=== PATIENT | female | born 1935 | race Caucasian/White ===

== ENCOUNTER 2017-09-19 08:07 | Emergency (ER) | payer MEDICARE, MEDICAID ==
[~2017-09-19] VITALS: Ht 170.2 cm; Wt 73.4 kg
[~2017-09-19 08:07] MED LIST: COZAAR50 MG PO; DOCUSATE SODIU100 MG PO; GABAPENTIN300 MG PO; LEVOTHYROXINE100 MCG PO; LEVOTHYROXINE25 MCG PO; NEURONTIN300 MG PO; NORCO 5-325 TA1 EACH PO; OMEPRAZOLE20 MG PO; ONDANSETRON ODT4 MG SL; PROVENTIL HFA6.7 GM INH; TENORMIN25 MG PO
--- OUTSIDE RECORDS SUMMARY | 2017-09-19 09:47 | XMS | Clinical Summary ---
Demographics + + + | Address | [address] | | | [place] [address] | + + + | Home Phone | | + + + | Preferred Language | Unknown | + + + | Marital Status | | + + + | Holiness Affiliation | 1077 | + + + | Race | Unknown | + + + | Ethnic Group | Unknown | + + + Author + + + | Author | [facility] | | | and Khurramana | + + + | Organization | [facility] | | | and Khurramana | + + + | Address | Unknown | + + + | Phone | Unavailable | + + + Support + + + + + | Name | Relationship | Address | Phone | + + + + + | Alejo Grant ECON | [address] | | | | | [place] | | | | | [address] | | + + + + + Care Team Providers + +------+ + | Care Stock Preparation Supervisor Name | Role | Phone | + +------+ + | Susan Zamora | PP | | | Paty BOLAND | | | + +------+ + Allergies + + + + + + | Active Allergy | Reactions | Severity | Noted | Comments | | | | | Date | | + + + + + + | Erythromycin | Hives, Rash | Medium | 02/01/20 | | | | | | 16 | | + + + + + + | Levofloxacin | Hives, Rash | Medium | 08/19/20 | | | | | | 16 | | + + + + + + | Penicillins | Hives, Rash | Medium | 08/19/20 | | | | | | 16 | | + + + + + + | Sulfa Antibiotics | Hives, Rash | Medium | 08//20 | | | | | | 16 | | + + + + + + | Verapamil Hcl Er | Hives, Rash | Medium | 08/20 | | | | | | 16 | | + + + + + + Current Medications + + +-------+---------+------+------+-------+ | Prescription | Sig. | Disp. | Refills | Star | End | Statu | | | | | | t | Date | s | | | | | | Date | | | + + +-------+---------+------+------+-------+ | | Take 1 tablet by | | | | | Activ | | HYDROcodone-acetamin | mouth every 6 hours | | | | | e | | ophen (NORCO) 5-325 | as needed for Pain. | | | | | | | mg per tablet | | | | | | | + + +-------+---------+------+------+-------+ | levothyroxine | Take 100 mcg by | | | | | Activ | | (SYNTHROID, | mouth every morning | | | | | e | | LEVOTHROID) 100 mcg | (before breakfast). | | | | | | | tablet | | | | | | | + + +-------+---------+------+------+-------+ | losartan (COZAAR) | Take 50 mg by mouth | | | | | Activ | | 50 mg tablet | Daily. | | | | | e | + + +-------+---------+------+------+-------+ | atenolol | Take 25 mg by mouth | | | | | Activ | | (TENORMIN) 25 mg | Daily. | | | | | e | | tablet | | | | | | | + + +-------+---------+------+------+-------+ | omeprazole | Take 20 mg by mouth | | | | | Activ | | (PRILOSEC) 20 mg | every morning | | | | | e | | capsule | (before breakfast). | | | | | | + + +-------+---------+------+------+-------+ | gabapentin | Take 300 mg by mouth | | | | | Activ | | (NEURONTIN) 300 mg | 3 times daily. | | | | | e | | capsule | | | | | | | + + +-------+---------+------+------+-------+ | docusate sodium | Take 100 mg by mouth | | | | | Activ | | (COLACE) 100 mg | Twice daily as | | | | | e | | capsule | needed. | | | | | | + + +-------+---------+------+------+-------+ | Multiple | Take by mouth. | | | | | Activ | | Vitamins-Minerals | | | | | | e | | (PEACEHEALTH) | | | | | | | | MISC | | | | | | | + + +-------+---------+------+------+-------+ | [place]-3 Fatty | Take 1 tablet by | | | | | Activ | | Acids (PRO NUTRIENTS | mouth Daily. | | | | | e | | OMEGA 3 PO) | | | | | | | + + +-------+---------+------+------+-------+ | Calcium | Take 1 tablet by | | | | | Activ | | Carb-Cholecalciferol | mouth 2 times daily. | | | | | e | | (CALCIUM 500 + D3 | | | | | | | | PO) | | | | | | | + + +-------+---------+------+------+-------+ | Multiple Vitamin | Take 1 tablet by | | | | | Activ | | (THERAGRAN PO) | mouth Daily. | | | | | e | + + +-------+---------+------+------+-------+ | Garlic 1000 MG | Take 1 tablet by | | | | | Activ | | CAPS | mouth Daily. | | | | | e | + + +-------+---------+------+------+-------+ | Psyllium | Take by mouth | | | | | Activ | | (METAMUCIL PO) | Daily. | | | | | e | + + +-------+---------+------+------+-------+ | PROVENTIL HFA 108 | Inhale 1 puff into | | | 01/1 | | Activ | | (90 Base) MCG/ACT | the lungs every 4 | | | 2/20 | | e | | inhaler | hours as needed. | | | 17 | | | + + +-------+---------+------+------+-------+ | ondansetron | Take 4 mg by mouth | | | 07/16 | | Activ | | (ZOFRAN ODT) 4 mg | every 8 hours as | | | 07/04 | | e | | disintegrating | needed. | | | 17 | | | | tablet | | | | | | | + + +-------+---------+------+------+-------+ Active Problems + + + | Problem | Noted Date | + + + | Choledocholithiasis | 09/25/2016 | + + + | Aortic stenosis | 09/25/2016 | + + + | HTN (hypertension) | 09/25/2016 | + + + | GERD (gastroesophageal reflux disease) | 09/25/2016 | + + + | Hyperlipidemia | 09/25/2016 | + + + | Type 2 diabetes mellitus (HCC) | 09/25/2016 | + + + | Hypothyroidism | 09/25/2016 | + + + | Peripheral neuropathy | 09/25/2016 | + + + | Abnormal gait | 03/03/2016 | + + + | Hyper reflexia | 02/26/2016 | + + + | Peripheral polyneuropathy | 02/25/2016 | + + + | DDD (degenerative disc disease), lumbar | 02/04/2016 | + + + | Spondylolisthesis at L4-L5 level | 02/04/2016 | + + + | Bilateral lumbar radiculopathy | 02/04/2016 | + + + Family History + + +------+ + | Medical History | Relation | Name | Comments | + + +------+ + | Heart disease | Brother | | | + + +------+ + | Early | Brother | | MVA | + + +------+ + | Cancer | Brother | | SKIN | + + +------+ + | Heart disease | Brother | | | + + +------+ + | Diabetes | Brother | | | + + +------+ + | Muscle disease | Daughter | | guillain barre syndrome | + + +------+ + | Early | Father | | TB | + + +------+ + | Tuberculosis | Father | | | + + +------+ + | No Known Problems | Maternal | | | | | Grandfath | | | | | er | | | + + +------+ + | Stroke | Maternal | | | | | Grandmoth | | | | | er | | | + + +------+ + | Stroke | Maternal | | | | | Uncle | | | + + +------+ + | Stroke | Maternal | | | | | Uncle | | | + + +------+ + | Heart disease | Maternal | | | | | Uncle | | | + + +------+ + | Osteoporosis | Mother | | | + + +------+ + | Stroke | Mother | | | + + +------+ + | No Known Problems | Paternal | | | | | Aunt | | | + + +------+ + | No Known Problems | Paternal | | | | | Grandfath | | | | | er | | | + + +------+ + | No Known Problems | Paternal | | | | | Grandmoth | | | | | er | | | + + +------+ + + +------+ + + | Relation | Name | Status | Comments | + +------+ + + | Brother | | | | + +------+ + + | Brother | | | | + +------+ + + | Brother | | | | + +------+ + + | Brother | | | | + +------+ + + | Brother | | | MVA | | | | (Age | | | | | 21) | | + +------+ + + | Brother | | Alive | | + +------+ + + | Brother | | Alive | | + +------+ + + | Child | | Alive | | + +------+ + + | Child | | Alive | | + +------+ + + | Daughter | | | | + +------+ + + | Daughter | | Alive | | + +------+ + + | Father | | | TB | | | | (Age | | | | | 33) | | + +------+ + + | Maternal Grandfather | | | NATURAL CAUSES | | | | (Age | | | | | 100) | | + +------+ + + | Maternal Grandmother | | | STROKE | | | | (Age | | | | | 76) | | + +------+ + + | Maternal Uncle | | | | + +------+ + + | Maternal Uncle | | | | + +------+ + + | Maternal Uncle | | | | + +------+ + + | Maternal Uncle | | Alive | | + +------+ + + | Maternal Uncle | | | STROKE | | | | (Age | | | | | 91) | | + +------+ + + | Maternal Uncle | | | STROKE | | | | (Age | | | | | 96) | | + +------+ + + | Maternal Uncle | | | ASPIRATION | | | | (Age | | | | | 80) | | + +------+ + + | Maternal Uncle | | | HEART | | | | (Age | | | | | 90) | | + +------+ + + | Mother | | | STROKE | | | | (Age | | | | | 95) | | + +------+ + + | Paternal Aunt | | | | + +------+ + + | Paternal Aunt | | | | + +------+ + + | Paternal Grandfather | | | | + +------+ + + | Paternal Grandmother | | | FRACTURED HIP | | | | (Age | | | | | 76) | | + +------+ + + Social History + +-------+ +--------+------+ | Tobacco Use | Types | Packs/Day | Years | Date | | | | | Used | | + +-------+ +--------+------+ | Never Smoker | | | | | + +-------+ +--------+------+ + +---+---+---+ | Smokeless Tobacco: | | | | | Never Used | | | | + +---+---+---+ + + +---------+ + | Alcohol Use | Drinks/We | oz/Week | Comments | | | ek | | | + + +---------+ + | Yes | 0 | 0.0 | once every 2 months | | | Standard | | | | | drinks or | | | | | | | | | | equivalen | | | | | t | | | + + +---------+ + + + + | Sex Assigned at | Date Recorded | | | | + + + | Not on file | | + + + Last Filed Vital Signs + + + + | Vital Sign | Reading | Time Taken | + + + + | Blood Pressure | 162/65 | 10/14/2016 1330 PDT | + + + + | Pulse | 57 | 10/14/2016 1330 PDT | + + + + | Temperature | 36.2 C (97.2 F) | 10/14/2016 1302 PDT | + + + + | Respiratory Rate | 16 | 10/14/2016 1330 PDT | + + + + | Oxygen Saturation | 96% | 10/14/2016 1330 PDT | + + + + | Inhaled Oxygen | - | - | | Concentration | | | + + + + | Weight | 69.9 kg (154 lb) | 10/14/20161132 PDT | + + + + | Height | 170.2 cm (5' 7") | 10/14/20161132 PDT | + + + + | Body Mass Index | 24.12 | 10/14/20161132 PDT | + + + + Plan of Treatment + + + + + | Health Maintenance | Due Date | Last Done | Comments | + + + + + | Diabetic Eye Exam | | | | | (Bi-Annually) | 2 | | | + + + + + | Diabetic Foot Exam | | | | | | 2 | | | + + + + + | Hemoglobin A1c Q3 | | | | | Months | 2 | | | + + + + + | Vaccine: | | | | | Dtap/Tdap/Td (1 - | 3 | | | | Tdap) | | | | + + + + + | Vaccine: Zoster (#1) | | | | | | 4 | | | + + + + + | Vaccine: | | | | | Pneumococcal 65+ | 9 | | | | Low/Medium Risk (1 | | | | | of 2 - PCV13) | | | | + + + + + | Vaccine: Influenza | | | | | (Season Ended) | 8 | | | + + + + + Implants + +-------+------+ +--------+--------+--------+ | Implanted | Type | Area | Manufacture | Device | Expira | Model | | | | | r | | tion | / | | | | | | Identi | Date | Serial | | | | | | fier | | / Lot | + +-------+------+ +--------+--------+--------+ | Stent Bili Advnx 10fr 5cm - | Stent | | [place] | | | 3432 / | | [id number]: Qty: 1 on | | | SCIENTIFIC | | | / | | 09/26/2016 by Gregor Mccord | | | BIGG - BSVÍCTOR | | | | | MD Delmy | | | | | | | + +-------+------+ +--------+--------+--------+ Results Not on filefrom Last 3 Months Insurance + +--------+ +--------+-------+---------+ | Payer | Benefi | Subscriber | Type | Phone | Address | | | t Plan | ID | | | | | | / | | | | | | | Group | | | | | + +--------+ +--------+-------+---------+ | [employer] | MODA | xxxxxxxxx | Medica | | | | | HEALTH | | re | | | | | MDCR | | | | | + +--------+ +--------+-------+---------+ + +--------+ +--------+ + + | Guarantor Name | Accoun | Relation to | Date | Phone | Billing Address | | | t Type | Patient | of | | | | | | | | | | + +--------+ +--------+ + + | SCARLET GRANT | Person | Self | [birth year] | Home: | [address] | | | [address]am | | 1936 | [phone] | [place] [address] | | | [place] | | | [phone] | | + +--------+ +--------+ + +
--- OUTSIDE RECORDS SUMMARY | 2017-09-19 09:47 | XMS | Clinical Summary ---
Demographics + + + | Address | [address] | | | [place] [address] | + + + | Home Phone | | + + + | Preferred Language | Unknown | + + + | Marital Status | | + + + | Episcopal Affiliation | Unknown | + + + | Race | White | + + + | Ethnic Group | Not or | + + + Author + + + | Author | [facility] | + + + | Organization | [facility] | + + + | Address | Unknown | + + + | Phone | Unavailable | + + + Support + + + + + | Name | Relationship | Address | Phone | + + + + + | LENCHO GIRALDO | ECON | [place] | | + + + + + Care Team Providers + +------+ + | Care Pediatric Urologist Name | Role | Phone | + +------+ + PP | Unavailable | + +------+ + Source Comments FIORELLA is fully live on both [facility] and [facility] InPatient.[facility] Allergies Not on File Current Medications Not on file Active Problems Not on file Social History + +-------+ +--------+------+ | Tobacco Use | Types | Packs/Day | Years | Date | | | | | Used | | + +-------+ +--------+------+ | Never Assessed | | | | | + +-------+ +--------+------+ + + + | Sex Assigned at | Date Recorded | | | | + + + | Not on file | | + + + Plan of Treatment + + + + + | Health Maintenance | Due Date | Last Done | Comments | + + + + + | INFLUENZA VACCINE | | | | | (FLU SHOT) | 8 | | | + + + + + Results Not on filefrom Last 3 Months"
--- OUTSIDE RECORDS SUMMARY | 2017-09-19 09:47 | XMS | Clinical Summary ---
Demographics + + + | Address | [address] | | | [place] [address] | + + + | Home Phone | | + + + | Preferred Language | Unknown | + + + | Marital Status | | + + + | Confucianist Affiliation | 1077 | + + + | Race | Unknown | + + + | Ethnic Group | Unknown | + + + Author + + + | Author | [facility] | | | and Khurramana | + + + | Organization | [facility] | | | and Khurramana | [...] [place] | | | | | [address] | | + + + + + Care Team Providers + +------+ + | Care Technical Writer And Editor Name | Role | Phone | + [...] | | | | e | | ([facility]) | | | | | | | | MISC | | | | | | | + + +-------+---------+------+------+-------+ | [place]-3 Fatty | Take 1 tablet by | [...] | | | 3432 / | | [id number]: Qty: 1 on | | | SCIENTIFIC [...] | 1936 | [phone] | [place] [address] | | | aissatou | | | 1033 | | + +--------+ +--------+ + +
--- OUTSIDE RECORDS SUMMARY | 2017-09-19 09:47 | XMS | Clinical Summary ---
Demographics + + + | Address | [address] | | | [place] [address] | + + + | Home Phone | | + + + | Preferred Language | Unknown | + + + | Marital Status | | + + + | Pentecostal Affiliation | Unknown | + + + [...] Team Providers + +------+ + | Care Bass Singer Name | Role | Phone | + +------+ + PP | Unavailable | + +------+ + Source Comments FIORELLA is fully live on both [facility] and [facility] InPatient.[facility] Allergies Not on File Current Medications [...]
[2017-09-19] MEDS ORDERED: CYCLOBENZAPRINE10 MG PO (10:42)
[2017-09-19] MEDS ORDERED: ULTRAM50 MG PO (10:43)
--- NOTE | 2017-09-20 06:25 | EKG ---
[facility] [address] [facility] [place] [address] Signed Normal sinus rhythm Normal ECG When compared with ECG of 06-AUG-2016 09:23, premature supraventricular complexes are no longer present QT has shortened Confirmed by JOSE DURAN MD ([id number]) on 09/20/2017 6:25:17 AM Electronically Signed By: JOSE DURAN MD 09/20/17 0625 PATIENT NAME: JUANITALUCHO SMITHORES Electrocardiogram DATE OF : 31 PHYSICIAN: JOSE DURAN MD REPORT #: [id number] REPORT IS CONFIDENTIAL AND NOT TO BE RELEASED WITHOUT AUTHORIZATION
[2017-12-02] MEDS ORDERED: CARBIDOPA-LEVO1 EACH (13:59)
[2017-12-02] MEDS ORDERED: HYDROCODON-ACE1 EA10 (14:04)
[2017-12-02] MEDS ORDERED: EFFEXOR XR37.5 MG PO (14:04)
== END 2017-09-19 11:58 | disposition short-term general hospital (02) ==
LOC: ED 08:07
PROC: 0T9B70Z Drainage of Bladder with Drainage Device, Via Natural or Artificial Opening (ICD-10-PCS; principal; 2017-09-19)
DX: S72.012A Unspecified intracapsular fracture of left femur, initial encounter for closed fracture (principal); E11.9 Type 2 diabetes mellitus without complications; E03.9 Hypothyroidism, unspecified; I10 Essential (primary) hypertension; Z88.0 Allergy status to penicillin; Z88.2 Allergy status to sulfonamides; Z88.1 Allergy status to other antibiotic agents; Z88.8 Allergy status to other drugs, medicaments and biological substances; Z79.899 Other long term (current) drug therapy; W19.XXXA Unspecified fall, initial encounter; Y92.009 Unspecified place in unspecified non-institutional (private) residence as the place of occurrence of the external cause; D64.9 Anemia, unspecified
CPT/HCPCS: 51702; 70450; 71046; 72170; 72192; 73552; 80053; 81001; 85025; 93005; 93010; 96374; 99285; J1170

== ENCOUNTER 2017-12-03 12:29 | Day surgery (SDC) | payer MEDICARE, MEDICAID ==
[~2017-12-03] VITALS: Ht 170.2 cm; Wt 73.4 kg
[~2017-12-03 12:29] MED LIST changes: +CARBIDOPA-LEVO1 EACH; +CYCLOBENZAPRINE10 MG PO; +EFFEXOR XR37.5 MG PO; +HYDROCODON-ACE1 EA10; +ULTRAM50 MG PO
--- NOTE | 2017-12-03 14:28 | NUR ---
12/03/17 1428 Estephania Drake PT IS BROUGHT TO PACU AWAKE AND ABLE TO HAVE CONVERSATION.
--- NOTE | 2017-12-03 16:27 | OR ---
[facility] [address] [place], [place] [address] Signed DATE OF OPERATION: 12/03/2017 SURGEON: Neal Dsouza MD PREOPERATIVE DIAGNOSES: 1. Persistent diarrhea following cholecystectomy (Dr. Galicia, 2017). 2. History of tubular adenoma, 2011. POSTOPERATIVE DIAGNOSES: 1. Melanosis coli. 2. Normal-appearing ileum and colonic mucosa. 3. Small polyps x2, rectosigmoid and rectum. 4. Minimal diverticular change. PROCEDURE: Total colonoscopy to cecum with biopsies and cold morcellation polypectomy x2. ANESTHESIA: Intravenous sedation with fentanyl 100 mcg, Versed 5 mg. INDICATION: This 82-year-old white woman is a patient of ALEKSANDAR Chatterjee, and known to me from the past having undergone colonoscopy in the past. She had a tubular adenoma identified in 2011. She underwent laparoscopic cholecystectomy by Dr. Kelby Galicia in 2016, for cholecystitis, has had diarrhea since that time. She has not had empiric treatment for that to my knowledge. She is admitted at this time to undergo colonoscopy to better characterize her diarrhea as well as for surveillance of polyps. She understands the risks of bleeding, infection, and perforation related to colonoscopy and wished to proceed. FINDINGS: The prep was excellent. Complete colonoscopy was undertaken to the cecum. The ileum was easily intubated as well. The ileum appeared normal. The biopsies were obtained anyway. Cecal biopsy was obtained. There was melanosis coli with no sign of colitis. There were few scattered diverticula of the left colon, but not a dominant problem and 2 small polyps, one identified as adenomatous based on narrow band imaging at the rectosigmoid and another small polyp of the rectum. There was no sign of colitis proper. PROCEDURE: Electronically Signed By: NEAL DSOUZA MD 12/03/17 1627 PATIENT NAME: LUCHO GRANT OPERATIVE REPORT DATE OF : 31 REPORT #: [id number] PHYSICIAN: NEAL DSOUZA MD PCP: ASHLEIGH MONTANO REPORT IS CONFIDENTIAL AND NOT TO BE RELEASED WITHOUT AUTHORIZATION [facility] [address] [place], [place] [address] Signed The patient was brought to the endoscopy suite and placed in lateral decubitus position, given intravenous sedation to the point of slurred speech and nystagmus. Digital rectal examination was normal. Olympus video colonoscope was passed in the rectum and manipulated throughout the colon noting a few diverticula upon passage of the scope initially. The scope was ultimately passed to the cecum without problem. The ileocecal valve was easily identified and intubated and the terminal ileum identified and examined thoroughly. It appeared reasonably normal. Biopsies were obtained nevertheless. The scope was then withdrawn. A biopsy was then taken of the cecal mucosa. She did have melanosis coli clinically. The scope was further withdrawn. There were no other findings until the rectosigmoid, where a small polyp was noted. Narrow band imaging confirmed this likely to be adenomatous. This was excised with multiple bites from cold morcellation polypectomy technique. Several centimeters distal to this was another similar such polyp, though quite a bit small and this was excised with cold morcellation technique as well. Retroflexed view was undertaken, which was normal. The scope was removed. The patient was taken to recovery room in good condition. CONCLUDING DIAGNOSES: Minimal diverticular changes in 2 polyps. No sign of inflammatory bowel disease. Melanosis coli is noted. I suspect her diarrhea may be related to her cholecystectomy and on that basis, we will prescribe Questran. If she has persisting diarrhea despite Questran, she will let me know. We will review her pathology reports to see if there is any occult colitis (Collagenous colitis, etc.) She will return to the ongoing care of ALEKSANDAR Chatterjee, otherwise. MD JAMES Ayala/CARISAL /[id number] cc: ALEKSANDAR Chatterjee Copies: ASHLEIGH MONTANO Electronically Signed By: NEAL DSOUZA MD 12/03/17 1627 PATIENT NAME: LUCHO GRANT OPERATIVE REPORT DATE OF : 31 REPORT #: [id number] PHYSICIAN: NEAL DSOUZA MD PCP: ASHLEIGH MONTANO REPORT IS CONFIDENTIAL AND NOT TO BE RELEASED WITHOUT AUTHORIZATION [address] [place] [address] Signed ~ Electronically Signed By: NEAL DSOUZA MD 12/03/17 1627 PATIENT NAME: LUCHO GRANT OPERATIVE REPORT DATE OF : 31 REPORT #: [id number] PHYSICIAN: NEAL DSOUZA MD PCP: ASHLEIGH MONTANO REPORT IS CONFIDENTIAL AND NOT TO BE RELEASED WITHOUT AUTHORIZATION
== END 2017-12-03 15:22 | disposition home or self-care (01) ==
LOC: DS 12:29 → OPS 12:29
PROVIDERS: Surgery
PROC: 0DBN8ZZ Excision of Sigmoid Colon, Via Natural or Artificial Opening Endoscopic (ICD-10-PCS; 2017-12-03)
PROC: 0DBP8ZZ Excision of Rectum, Via Natural or Artificial Opening Endoscopic (ICD-10-PCS; principal; 2017-12-03 14:00)
DX: D12.7 Benign neoplasm of rectosigmoid junction (principal); D12.8 Benign neoplasm of rectum; K57.30 Diverticulosis of large intestine without perforation or abscess without bleeding; K63.89 Other specified diseases of intestine; F32.9 Major depressive disorder, single episode, unspecified; E11.9 Type 2 diabetes mellitus without complications; I10 Essential (primary) hypertension; K91.5 Postcholecystectomy syndrome; Z86.010 Personal history of colon polyps; Z88.1 Allergy status to other antibiotic agents; Z88.0 Allergy status to penicillin; Z88.8 Allergy status to other drugs, medicaments and biological substances
CPT/HCPCS: 99153; G0500; J2250; J3010; J7120

== ENCOUNTER 2018-02-17 05:18 | Emergency (ER) | payer MEDICARE, MEDICAID ==
[~2018-02-17] VITALS: Ht 170.2 cm; Wt 73.4 kg
--- OUTSIDE RECORDS SUMMARY | ~2018-02-17 | XMS | Encounter Summary ---
Demographics + + + | Address | [address] | | | [place] [address] | + + + | Home Phone | | + + + | Preferred Language | Unknown | + + + | Marital Status | | + + + | Mormon Affiliation | Unknown | + + + | Race | White | + + + | Ethnic Group | Not or | + + + Author + + + | Author | [facility] | + + + | Organization | [facility] | + + + | Address | Unknown | + + + | Phone | Unavailable | + + + Support + + + + + | Name | Relationship | Address | Phone | + + + + + | LENCHO GIRALDO | ECON | [place] | | + + + + + Care Team Providers + +------+ + | Care Blow Pit Helper Name | Role | Phone | + +------+ + PCP | Unavailable | + +------+ + Encounter Details +--------+ + + + + | Date | Type | Department | Care Team | Description | +--------+ + + + + | 11/23/ | Documentati | UNKNOWN DEPARTMENT | Unknown . | | | 2018 | on | [address] [facility] | | | | | | [facility] | | | | | | [place], [place] | | | | | | [address] | | | +--------+ + + + [...]
--- OUTSIDE RECORDS SUMMARY | ~2018-02-17 | XMS | Clinical Summary ---
Demographics + + + | Address | [address] | | | [place] [address] | + + + | Home Phone | | + + + | Preferred Language | Unknown | + + + | Marital Status | | + + + | Christian Affiliation | Unknown | + + + [...] + | LENCHO GIRALDO | ECON | [place] | | + + + + + Care Team Providers + +------+ + | Care Principal Cloud Architect Name | Role | Phone | + +------+ + PP | Unavailable | + +------+ + Source Comments FIORELLA is fully live on both [facility] and [facility] InPatient.[facility] Allergies Not on File Current Medications Not on file Active Problems Not on file Encounters +--------+ + + + + | Date | Type | Specialty | Care Team | Description | +--------+ + + + + | 11/23/ | Documentati | | Unknown | | | 2018 | on | | | | +--------+ + + [...] + + + + + | Pneumococcal (Adult) | | | | | (1 of 2 - PCV13) | 9 | | | + + + + + | INFLUENZA VACCINE | | | | | (FLU SHOT) | 8 | | | + + + + + Results Not on filefrom Last 3 Months Insurance + +--------+ +------+ + + | Payer | Benefi | Subscriber | Type | Phone | Address | | | t Plan | ID | | | | | | / | | | | | | | Group | | | | | + +--------+ +------+ + + | [employer] | MODA | xxxxxxxxx | PPO | [phone] [address] | | | MEDICA | | | [phone] | [place] [address] | | | RE PPO | | | | | + +--------+ +------+ + + + +--------+ +--------+ + + | Guarantor Name | Accoun | Relation to | Date | Phone | Billing Address | | | t Type | Patient | of | | | | | | | | | | + +--------+ +--------+ + + | LUCHO GRANT | Person | Self | [birth year] | Home: | [address] | | | [address]am | | 1936 | [phone] | [place] [address] | | | [place] | | | [phone] | | + +--------+ +--------+ + +"
--- OUTSIDE RECORDS SUMMARY | ~2018-02-17 | XMS | Encounter Summary ---
Demographics + + + | Address | [address] | | | [place] [address] | + + + | Home Phone | | + + + | Preferred Language | Unknown | + + + | Marital Status | | + + + | Sabianism Affiliation | Unknown | + + + | Race | White | + + + | Ethnic Group | Not or | + + + Author + + + | Author | [facility] | + + + | Organization | [facility] | + + + | Address [...] Team Providers + +------+ + | Care Design Eng Name | Role | Phone | + +------+ + PCP | Unavailable | + +------+ + Encounter Details +--------+ + + + + | Date | Type | Department | Care Team | Description | +--------+ + + + + | 11/23/ | Documentati | UNKNOWN DEPARTMENT | Unknown . | | | 2018 | on | [address] [facility] | | | | | | [facility] | | | | | | [place], [place] | | | | | | [phone] | | | +--------+ + + + [...]
--- OUTSIDE RECORDS SUMMARY | ~2018-02-17 | XMS | Clinical Summary ---
Demographics + + + | Address | [address] | | | [place] [address] | + + + | Home Phone [...] + | Author | [facility] | | | and Khurramana | + + + | Organization | [facility] | [...] [place] | | | | | [address] | | + + + + + Care Team Providers + +------+ + | Care Office Worker Name | Role | Phone | [...] | | | | e | | ([facility]) | | | | | | | | MISC | | | | | | | + + +-------+---------+------+------+-------+ | [place]-3 Fatty | Take 1 tablet by | [...] | | | 3432 / | | [id number]: Qty: 1 on | | | SCIENTIFIC [...] | [employer] | MODA | [id number] | Medica | | | | | [...] | 1936 | [phone] | [place] [address] | | | [place] | | | [address] | | + +--------+ +--------+ + +
--- OUTSIDE RECORDS SUMMARY | ~2018-02-17 | XMS | Clinical Summary ---
Demographics + + + | Address | [address] | | | [place] [address] | + + + | Home Phone [...] Author | [facility] Neal | | | and Khurramana | + + + | Organization | [facility] [...] [place] | | | | | [address] | | + + + + + Care Team Providers + +------+ + | Care Farm Labor Contractor Name | Role | Phone | [...] | | | | e | | ([facility]) | | | | | | | | MISC | | | | | | | + + +-------+---------+------+------+-------+ | [place]-3 Fatty | Take 1 tablet by | [...] | | | 3432 / | | [id number]: Qty: 1 on | | | SCIENTIFIC [...] | [employer] | MODA | [id number] | Medica | | | | | [...] + +--------+ +--------+ + + | SCARLET GRATN | Person | Self | [birth year] | Home: | [address] | | | al/Fam | | 1936 | [phone] | [place] [address] | | | aissatou | | | 1033 | | + +--------+ +--------+ + +
--- OUTSIDE RECORDS SUMMARY | ~2018-02-17 | XMS | Clinical Summary ---
Demographics + + + | Address | [address] | | | [place] [address] | + + + | Home Phone [...] Team Providers + +------+ + | Care Biomedical Instrument Technician Name | Role | Phone | + +------+ + PP | Unavailable | + +------+ + Source Comments FIORELLA is fully live [facility] In[facility] Allergies Not on File Current Medications [...] | MEDICA | | | [address] | [place] [address] | | | RE PPO | | [...] | 1936 | [phone] | [place] [address] | | | aissatou | | | 1033 | | + +--------+ +--------+ + +"
== END 2018-02-17 06:58 | disposition home or self-care (01) ==
LOC: ED 05:18
DX: K56.41 Fecal impaction (principal); Z88.0 Allergy status to penicillin; Z88.2 Allergy status to sulfonamides; Z88.1 Allergy status to other antibiotic agents; Z88.8 Allergy status to other drugs, medicaments and biological substances; E11.40 Type 2 diabetes mellitus with diabetic neuropathy, unspecified; E03.9 Hypothyroidism, unspecified; E78.00 Pure hypercholesterolemia, unspecified; I10 Essential (primary) hypertension; Z79.899 Other long term (current) drug therapy
CPT/HCPCS: 99283

== ENCOUNTER 2018-02-28 15:38 | Emergency (ER) | payer MEDICARE, MEDICAID ==
[~2018-02-28] VITALS: Ht 170.2 cm; Wt 73.4 kg
--- OUTSIDE RECORDS SUMMARY | ~2018-02-28 | XMS | Clinical Summary ---
Demographics + + + | Address | [address] | | | [place] [address] | + + + | Home Phone | | + + + | Preferred Language | Unknown | + + + | Marital Status | | + + + | Quaker Affiliation | 1077 | + + + | Race | Unknown | + + + | Ethnic Group | Unknown | + + + Author + + + | Author | [facility] | | | and Khurramana | + + + | Organization | [facility] | | [...] [place] | | | | | [address] | | + + + + + Care Team Providers + +------+ + | Care Warp Trucker Name | Role | Phone | + [...] | | | | e | | ([facility]) | | | | | | | | MISC | | | | | | | + + +-------+---------+------+------+-------+ | [place]-3 Fatty | Take 1 tablet by | [...] | | | | | (#1) | 8 | | | + + [...] | | | 3432 / | | [id number]: Qty: 1 on | | | SCIENTIFIC [...] | [employer] | MODA | [id number] | Medica | | | | | [...] | 1936 | [phone] | [place] [address] | | | [place] | | | 1033 | | + +--------+ +--------+ + +
--- OUTSIDE RECORDS SUMMARY | ~2018-02-28 | XMS | Clinical Summary ---
Demographics + + + | Address | [address] | | | [place] [address] | + + + | Home Phone [...] Team Providers + +------+ + | Care Certified Orthotist/Pedorthist Name | Role | Phone | + +------+ + PP | Unavailable | + +------+ + Source Comments FIORELLA is fully live on both [facility] and [facility] InPatient.[facility] Allergies Not on File Current Medications Not [...] | MEDICA | | | [address] | [place] [address] | | | RE PPO | | [...] | 1936 | [phone] | [place] [address] | | | aissatou | | | [address] | | + +--------+ +--------+ + +"
--- OUTSIDE RECORDS SUMMARY | ~2018-02-28 | XMS | Clinical Summary ---
Demographics + + + | Address | [address] | | | [place] [address] | + + + | Home Phone | | + + + | Preferred Language | Unknown | + + + | Marital Status | | + + + | Shinto Affiliation | 1077 | + + + | Race | Unknown | + + + | Ethnic Group | Unknown | + + + Author + + + | Author | [facility] | | | and Khurramana | + + + | Organization | [facility] | | | and [...] [place] | | | | | [address] | | + + + + + Care Team Providers + +------+ + | Care Oven Technician Name | Role | Phone | [...] | | | | e | | ([facility]) | | | | | | | | MISC | | | | | | | + + +-------+---------+------+------+-------+ | [place]-3 Fatty | Take 1 tablet by | [...] | | | 3432 / | | [id number]: Qty: 1 on | | | SCIENTIFIC [...] | [employer] | MODA | [id number] | Medica | | | | | [...] | 1936 | [phone] | [place] [address] | | | aissatou | | | [address] | | + +--------+ +--------+ + +
--- OUTSIDE RECORDS SUMMARY | ~2018-02-28 | XMS | Clinical Summary ---
Demographics + + + | Address | [address] | | | [place] [address] | + + + | Home Phone [...] Providers + +------+ + | Care Ornamental Painter Name | Role | Phone | + +------+ + PP | Unavailable | + +------+ + Source Comments FIORELLA is fully live on both [facility] and [facility] InPatient.[facility] Allergies Not on File Current Medications Not [...] | | | [address] | [place] [address] | | | RE PPO | | [...] | 1936 | [phone] | [place] [address] | | | [place] | | | [address] | | + +--------+ +--------+ + +"
--- OUTSIDE RECORDS SUMMARY | 2018-02-28 15:42 | XMS ---
PreManage Notification: JUANITA Security Bat Lathe Operator Events No recent Security Events currently on file CRITERIA MET - [facility] - 2 Visits in 30 Days CARE PROVIDERS Susan Zamora Primary [facility] PAC PHONE: Unknown NAHUM PIMENTEL Primary [facility] 01/13/2014-Current PHONE: Unknown Khoi has no Care Guidelines for this patient. Nelly VISIT COUNT (12 MO.) [address] [place] [address] TOTAL 3 NOTE: Visits indicate total known visits. ED/UCC VISIT TRACKING (12 MO.) 02/28/2018 15:38 [facility] [place] TYPE: Emergency COMPLAINT: - FALL 02/17/2018 05:18 [facility] [place] TYPE: Emergency COMPLAINT: - POSS BOWEL OBSTRUCTION DIAGNOSES: - Pure hypercholesterolemia, unspecified - Other senior care (current) drug therapy - Allergy status to other drugs, medicaments and biological substances status - Allergy status to other antibiotic agents status - Allergy status to penicillin - Type 2 diabetes mellitus with diabetic neuropathy, unspecified - Hypothyroidism, unspecified - Fecal impaction - Essential (primary) hypertension - Allergy status to sulfonamides status - Constipation, unspecified 09/19/2017 08:07 [facility] [place] TYPE: Emergency COMPLAINT: - L KNEE PAIN/FALL DIAGNOSES: - Essential (primary) hypertension - Allergy status to sulfonamides status - Allergy status to other antibiotic agents status - Unspecified fall, initial encounter - Hypothyroidism, unspecified - Other middle or intermediate school principal (current) drug therapy - Allergy status to other drugs, medicaments and biological substances status - Pain in left knee - Unspecified place in unspecified non-institutional (private) residence as the place of occurrence of the external cause - Allergy status to penicillin - Anemia, unspecified - Type 2 diabetes mellitus without complications - Unspecified intracapsular fracture of left femur, initial encounter for closed fracture INPATIENT VISIT TRACKING (12 MO.) 09/19/2017 13:06 [facility]ina [facility] [place] TYPE: Medical Surgical COMPLAINT: - LT FEMORAL NECK FRACTURE DIAGNOSES: 0. Pain in left hip 1. Unspecified intracapsular fracture of left femur, initial encounter for closed fracture 2. Hypo-osmolality and hyponatremia 2. Essential (primary) hypertension 3. Type 2 diabetes mellitus with diabetic neuropathy, unspecified 3. Essential (primary) hypertension 4. Rheumatic heart disease, unspecified 4. Type 2 diabetes mellitus with diabetic neuropathy, unspecified 5. Rheumatic heart disease, unspecified 5. Hyperlipidemia, unspecified 6. Major depressive disorder, single episode, unspecified 6. Hyperlipidemia, unspecified 7. Fall on same level, unspecified, initial encounter 7. Major depressive disorder, single episode, unspecified 8. Fall on same level, unspecified, initial encounter 8. Urgency of urination 9. Other constipation 9. Urgency of urination 10. Other constipation 10. Cervicalgia 11. Other dorsalgia 11. Cervicalgia 12. Hypothyroidism, unspecified 12. Other dorsalgia 13. Gastro-esophageal reflux disease without esophagitis 13. Hypothyroidism, unspecified 14. Other amnesia 14. Gastro-esophageal reflux disease without esophagitis 15. Other amnesia 15. Adverse effect of other drugs, medicaments and biological substances, initial encounter 16. Adverse effect of other drugs, medicaments and biological substances, initial encounter 16. Cardiac murmur, unspecified 17. Exposure to other specified factors, initial encounter 17. Cardiac murmur, unspecified 18. Other muscle spasm 18. Exposure to other specified factors, initial encounter 19. Hesitancy of micturition 19. Other muscle spasm 20. Hesitancy of micturition 20. Acquired absence of both cervix and uterus 21. Acquired absence of both cervix and uterus 21. Acquired absence of other specified parts of digestive tract 22. Acquired absence of other specified parts of digestive tract 22. Allergy status to other antibiotic agents status 23. Allergy status to other antibiotic agents status 23. Allergy status to penicillin 24. Allergy status to penicillin 24. Allergy status to sulfonamides status 25. Allergy status to other drugs, medicaments and biological substances status 25. Allergy status to sulfonamides status 26. History of falling 26. Allergy status to other drugs, medicaments and biological substances status 27. History of falling 27. Activity, unspecified 28. Personal history of other malignant neoplasm of skin 28. Activity, unspecified 29. Personal history of nicotine dependence 29. Personal history of other malignant neoplasm of skin 30. Personal history of nicotine dependence 30. Presence of external hearing-aid 31. Unspecified external cause status 31. Presence of external hearing-aid 32. Unspecified external cause status [email or web address]
[2018-02-28] MEDS ORDERED: ASPIRIN81 MG PO (15:52)
== END 2018-02-28 20:21 | disposition home or self-care (01) ==
LOC: ED 15:38
DX: S01.01XA Laceration without foreign body of scalp, initial encounter (principal); S30.0XXA Contusion of lower back and pelvis, initial encounter; M54.5 Low back pain; E11.9 Type 2 diabetes mellitus without complications; I10 Essential (primary) hypertension; Z88.0 Allergy status to penicillin; Z88.2 Allergy status to sulfonamides; Z88.1 Allergy status to other antibiotic agents; Z88.8 Allergy status to other drugs, medicaments and biological substances; Z79.899 Other long term (current) drug therapy; Z23 Encounter for immunization; W19.XXXA Unspecified fall, initial encounter; Y93.01 Activity, walking, marching and hiking
CPT/HCPCS: 70450; 72170; 90471; 90715; 99284

== ENCOUNTER 2019-03-23 20:56 | Emergency (ER) | payer MEDICARE, MEDICAID ==
[~2019-03-23] VITALS: Ht 167.6 cm; Wt 74.8 kg
--- OUTSIDE RECORDS SUMMARY | ~2019-03-23 | XMS | Encounter Summary ---
Demographics + + + | Address | [address] | | | [place] [address] | + + + | Home Phone | | + + + | Preferred Language | Unknown | + + + | Marital Status | | + + + | Congregational Affiliation | 1077 | + + + | Race | Unknown | + + + | Ethnic Group | Unknown | + + + Author + + + | Author | [facility] | | | and Khurramana | + + + | Organization | [facility] | | | and [place] [...] Team Providers + +------+ + | Care Instructor Programmable Controllers Name | Role | Phone | + +------+ + | Susan Leos | PCP | | | PA-Prisca | | | + +------+ + Reason for Visit + + + | Reason | Comments | + + + | Surgery Appointment | | + + + Encounter Details +--------+ + + + + | Date | Type | Department | Care Team | Description | +--------+ + + + + | 03/16/ | Telephone | [facility] | Yvette Michelle, | Surgery Appointment | | 2018 | | [place] [address] | Department Store Salesperson | | | | | [place] | | | | | | [address] | | | | | | [phone] | | | +--------+ + + + [...] | +--------+ + + + + | 03/29/ | Hospital | | [place] | Left hip pain | | 2018 | Encounter | | MD Alaina [address] | | | | | | [place] | | | | | | [place] [address] | | | | | | [phone] | | | | | | | | +--------+ + + + + | 03/29/ | Surgery | | Mark [place] | Posterior Total Hip | | 2018 | | | MD [place]ain[address] | Arthroplasty: | | | | | [address] | [employer] | | | | | [place] [address] | | | | | | [phone] | | | | | | | | +--------+ + + + + | 04/11/ | Office | Orthopedic Surgery | Gus Orozco, | | | 2018 | Visit | | [address] | | | | | | [place] | | | | | | [place] [address] | | | | | | [phone] | | | | | | | | +--------+ + + + + | 05/16/ | Office | Orthopedic Surgery | Mark [place] | | | 2018 | Visit | | MD [address]ain[address] | | | | | | [address] | | | | | | [place] [address] | | | | | | [phone] | | | | | | | | +--------+ + + + + | 06/30/ | Office | Cardiology | Smitha Griffin DO | | | 2019 | Visit | | [address] | | | | | | [place] | | | | | | [id number] | | | | | | | | +--------+ + + + + documented as of this encounter Visit Diagnoses Not on filedocumented in this encounter"
--- OUTSIDE RECORDS SUMMARY | ~2019-03-23 | XMS | Encounter Summary ---
Demographics + + + | Address | [address] | | | [place] [address] | + + + | Home Phone | | + + + | Preferred Language | Unknown | + + + | Marital Status | | + + + | Nondenominational Affiliation | 1077 | + + + | Race | Unknown | + + + | Ethnic Group | Unknown | + + + Author + + + | Author | [facility] | | | and Khurramana | + + + | Organization | [facility] Neal | | [...] Team Providers + +------+ + | Care Kaiawhina Name | Role | Phone | + +------+ + | Susan Leos | PCP | | | PA-C | | | + +------+ + Reason for Referral Evaluate & Treat (Routine) + + + + + + + | Status | Reason | Specialty | Diagnoses / | Referred By | Referred To | | | | | Procedures | Contact | Contact | + + + + + + + | Pending | Specialty | Physical | Diagnoses | Ernesto | [facility] | | Review | Services | Therapy | | Gus | [facility] | | | Required | | Post-traumat | PA-C [address]YS[address] | | | | | ic | [address] | THERAPY [address] | | | | | osteoarthrit | [address] | [place] | | | | | is of left | [place] | [place] | | | | | hip | [address] | [address] | | | | | | Phone: | Phone: | | | | | | [phone] | [phone] | | | | | | Fax: | Fax: | | | | | | [phone] | [phone] | + + + + + + + Reason for Visit + + + | Reason | Comments | + + + | Hip Pain | left | + + + Evaluate & Treat (Urgent) + +--------+ + + + + | Status | Reason | Specialty | Diagnoses / | Referred By | Referred To | | | | | Procedures | Contact | Contact | + +--------+ + + + + | Authorized | | Orthopedic | Diagnoses | [place], | Nan, | | | | Surgery | Urgent JOJO | Harry Palafox MD | Mark Foley MD | | | | | from | [address] | [address] | | | | | [place] at | [address] | [address] | | | | | [facility] | [place], | [place], [place] | | | | | Procedures | [place] | [address] Phone: | | | | | NEW PATIENT | [address] | [phone] | | | | | | Phone: | Fax: | | | | | | [phone] | [phone] | | | | | | Fax: | | | | | | | [phone] | | + +--------+ + + + + Encounter Details +--------+---------+ + + + | Date | Type | Department | Care Team | Description | +--------+---------+ + + + | 03/21/ | Office | [facility] | Gus Orozco, | 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[place] [address] | PA-C [address]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[place], [place] | [place], | left hip (Primary | | | | [address] | [place] [address] | Dx) | | | | [phone] | [phone] | | | | | | | [...] + + + | Blood Pressure | 188/76 | 03/21/20191355 PDT | + + + + | Pulse | 69 | 03/21/20191355 PDT | + + + + | Temperature | - | - | + + + + | Respiratory Rate | - | - | + + + + | Oxygen Saturation | 97% | 03/21/20191355 PDT | + + + + | Inhaled Oxygen | - | - | | Concentration | | | + + + + | Weight | 75.6 kg (166 lb 9.6 | 03/21/20191355 PDT | | | oz) | | + + + + | Height | 167.6 cm (5' 6") | 03/21/20191355 PDT | + + + + | Body Mass Index | 26.89 | 03/21/20191355 PDT | + + + + documented in this encounter Progress Notes Gus Orozco PA-C - 03/21/2019 1345 PDTFormatting of this note might be different from t he original. 03/21/2019 HPI The patient presents for a pre-operative evaluation prior to a planned left total hip arthr oplasty. The patient has continued disabling left hip pain that has been refractory to conse rvative measures. Vital Signs Vitals: 03/21/19 1356 BP: 188/76 Pulse: 69 PainSc: 2 PainLoc: Hip Past Medical History: Diagnosis Date [...] Procedure: ERCP; Surgeon: Gregor Mccord MD; Location: [facility] MEDICAL PROCEDURE UNIT ERCP N/A 10/14/2016 Procedure: ERCP w/ stent pull; Surgeon: Gregor Mccord MD; Location: [facility] PROC[facility] RE UNIT PARTIAL HYSTERECTOMY 1971 RECTOCELE REPAIR 1991 TAILBONE 1973 broken, partial removal TONSILLECTOMY 1938 Family History Problem Relation Age of Onset [...] 89 Heart disease Maternal Uncle Social History Occupational History Occupation: [employer] Comment: RETIRED Tobacco Use Smoking status: Never Smoker Smokeless tobacco: Never Used Substance and Sexual Activity Alcohol use: Yes Alcohol/week: 0.0 oz Comment: once every 2 months Drug use: No Sexual activity: Not on file Current Medications Current Outpatient Medications: acetaminophen (TYLENOL) 500 mg tablet, Take 2 tablets by mouth every 8 hours for 30 da ys., Disp: 180 tablet, Rfl: 0 aspirin 325 MG EC tablet, Take 1 tablet by mouth Daily for 42 days. For post-operative DVT prophylaxis, Disp: 42 tablet, Rfl: 0 atenolol (TENORMIN) 25 mg tablet, Take 25 [...] mouth Daily., Disp: , Rfl: Multiple Vitamins-Minerals ( MACULAR HEALTH) MISC, Take by mouth., Disp: , Rfl: [place]-3 Fatty Acids (PRO NUTRIENTS OMEGA 3 PO), Take 1 tablet by mouth Daily., Disp: , Rfl: omeprazole (PRILOSEC) 20 mg capsule, Take 20 mg by mouth every morning (before breakfa st)., Disp: , Rfl: ondansetron (ZOFRAN ODT) 4 mg disintegrating tablet, Take 4 mg by mouth every 8 hours as needed., Disp: , Rfl: ondansetron (ZOFRAN) 4 mg tablet, Take 1 tablet by mouth every 8 hours as needed for N ausea for up to 7 days., Disp: 20 tablet, Rfl: 0 [START ON 03/29/2019] oxyCODONE (OXY-IR) 5 MG capsule, Take 1-2 capsules by mouth ever y 4 hours as needed for up to 14 days., Disp: 60 capsule, Rfl: 0 polyethylene glycol (MIRALAX) packet, Take 1 diluted packet by mouth Daily as needed f or Constipation for up to 7 days., Disp: 7 packet, Rfl: 0 POTASSIUM CITRATE PO, Take by mouth., Disp: , Rfl: PROVENTIL HFA 108 (90 Base) MCG/ACT inhaler, Inhale 1 puff into the lungs every 4 hour s as needed., Disp: , Rfl: Psyllium (METAMUCIL PO), Take by mouth Daily., Disp: , Rfl: sennosides-docusate sodium (SENOKOT-S) 8.6-50 MG tablet, Take 1 tablet by mouth 2 time s daily for 30 days., Disp: 60 tablet, Rfl: 0 traMADol (ULTRAM) 50 mg tablet, Take 1 tablet by mouth every 6 hours for 15 days., Dis p: 60 tablet, Rfl: 0 Allergies Allergies Allergen Reactions Erythromycin Hives and Rash Levofloxacin Hives and Rash Penicillins Hives and Rash Sulfa Antibiotics Hives and Rash Verapamil Hcl Er Hives and Rash Active comorbid conditions include: - hypertension - endocrine problem - diabetes; type 2 - hypothyroidism - GERD Review of Systems Constitutional: Negative. HENT: Negative. Eyes: Negative. Respiratory: Negative. Cardiovascular: Negative. Gastrointestinal: Negative. Genitourinary: Negative. Musculoskeletal: Positive for joint pain. Skin: Negative. Neurological: Negative. Endo/Heme/Allergies: Negative. Psychiatric/Behavioral: Negative. Physical Exam Left Hip Exam Comments: Well-healed lateral surgical incision. Range of Motion: Flexion: 90 and with increased pain. Internal Rotation: 5. External Rotation: 5 degrees with pain and crepitus with motion. Increased pain in the groi n with motion. Muscle Strength: She has 5/5 hip abductor strength and 5/5 hip flexor strength, although co mplete exam is limited by pain. Physical Exam Constitutional: She is oriented to person, place, and time. She appears well-developed and well-nourished. HENT: Head: Normocephalic and atraumatic. Eyes: Pupils are equal, round, and reactive to light. EOM are normal. Pulmonary/Chest: Effort normal. Neurological: She is alert and oriented to person, place, and time. Skin: Skin is warm and dry. Psychiatric: She has a normal mood and affect. Her behavior is normal. Thought content norm al. Assessment and Plan ICD-10-CM ICD-9-CM 1. Post-traumatic osteoarthritis of left hip M16.52 715.25 Ambulatory referral to Physical Therapy plan to proceed with a left total hip arthroplasty The risks and benefits of hip arthroplasty and expected recovery period and outcomes after hip arthroplasty were discussed with the patient. The risk discussed included infection, dis location, damage to nerves and blood vessels, bleeding, continued pain, fracture, early loos ening of components, polyethylene wear, osteolysis, potential need for revision surgery, DVT , pulmonary embolism, stroke, myocardial infarction and . Alternatives to surgery were also discussed with the patient. All of the patients questions were answered and informed co nsent was obtained. Pre-operative Checklist Visited primary care in last 12 months?:yes Under the care of a professor of food biochemistry?: no Diabetes Optimization?:well controlled diet No results found for: LABGLYC History of MRSA/MSSA infection?:no Metal sensitivity or allergy?:no Intolerance to certain specific opiate?:no DVT/PE Risk Stratification Personal history of DVT/PE?:no Cancer treatment in the last 5 years?:no Hormone replacement therapy?:no Tolerate aspirin?:asa Current Anticoagulation?:asa Chemical prophylaxis plan:asa Anticipated Discharge Plan Discharge home to care of daughter (princess), [facility] [place] [facility]) Return for 2 and 6 weeks post op. No notes on file Kaleigh Sortotronically signed by Gus Orozco PA-C at 03/21/2019 15:33 PDTdocu mented in this encounter Plan of Treatment +--------+ + + + + | Date | Type | Specialty | Care Team | Description | +--------+ + + + + | 03/29/ | Hospital | | [place] | Left hip pain | | 2019 | Encounter | | MD Paul Foley | | | | | | [address] | | | | | | [place] [address] | | | | | | [phone] | | | | | | | | +--------+ + + + + | 03/29/ | Surgery | | Mark [place] | Posterior Total Hip | | 2019 | | | MD Paul Foley | Arthroplasty: | | | | | [address] | [employer] | | | | | [place] [address] | | | | | | [phone] | | | | | | | | +--------+ + + + + | 04/11/ | Office | Orthopedic Surgery | Gus Orozco, | | | 2018 | Visit | | [place] [address] | | | | | | [place] | | | | | | [place] [address] | | | | | | [phone] | | | | | | | | +--------+ + + + + | 05/16/ | Office | Orthopedic Surgery | Mark [place] | | | 2019 | Visit | | MD Alaina [address] | | | | | | [place] | | | | | | [place] [address] | | | | | | [phone] | | | | | | | | +--------+ + + + + | 06/30/ | Office | Cardiology | Smitha Griffin DO | | | 2019 | Visit | | [address] | | | | | | [place] | | | | | | [address] | | | | | | | | +--------+ + + + + + +--------+ + + | Name | Priori | Associated Diagnoses | Order Schedule | | | ty | | | + +--------+ + + | Ambulatory referral to Physical | Routin | Post-traumatic | Ordered: 03/21/2019 | | Therapy | e | osteoarthritis of | | | | | left hip | | + +--------+ + + documented as of this encounter Visit Diagnoses + + | Diagnosis | + + | 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
--- OUTSIDE RECORDS SUMMARY | ~2019-03-23 | XMS | Clinical Summary ---
Demographics + + + | Address | [address] | | | [place] [address] | + + + | Home Phone [...] Author | [facility] (Historical as of | | | 01-29-19) | + + + | Organization | [facility] (Historical as of | | | 01-29-19) | + + + | Address | Unknown | + + + | Phone | Unavailable | + + + Support + + + + + | Name | Relationship | Address | Phone | + + + + + | Alejo Murguia | DIRK | [address] | | | | | [place] [address] | | + + + + + Care Team Providers + +------+ + | Care Powder Operator Name | Role | Phone | + +------+ + | Lissette Dixon | PP | | | MD | | | + +------+ + Allergies Not on File Current Medications Not on file Active Problems Not on file Encounters +--------+ + + + + | Date | Type | Specialty | Care Team | Description | +--------+ + + + + | 01/20/ | Documentati | | Smitha Griffin DO | | | 2019 | on Only | | | | +--------+ + + [...]
--- OUTSIDE RECORDS SUMMARY | ~2019-03-23 | XMS | Encounter Summary ---
Demographics + + + | Address | [address] | | | [place] [address] | + + + | Home Phone | | + + + | Preferred Language | Unknown | + + + | Marital Status | | + + + | Orthodoxy Affiliation | Unknown | + + + | Race | White | + + + | Ethnic Group | Not or | + + + Author + + + | Author | [facility] | + + + | Organization | [facility] | + + + | Address [...] Team Providers + +------+ + | Care Piano Stringer Name | Role | Phone | + +------+ + PCP | Unavailable | + +------+ + Encounter Details +--------+ + + + + | Date | Type | Department | Care Team | Description | +--------+ + + + + | 03/20/ | Transcribed | Allergy Clinic at | Dictation, Other | Transcribed | | 1996 | | [facility] [address] | | | | | | [address] | | | | | | Mailcode: [address] | | | | | | [address] | | | | | | [place], | | | | | | [place] [address] | | | | | | [phone] | | | +--------+ + + + [...] documented as of this encounter Progress Notes Interface, Rrt In - 07/30/2006 1:06 AM PST [address] [address] or March 20, 1997 AKIRA LEOS MD [facility] [address] [place] [address] RE:Scarlet Murguia MR#:[id number] Leos: We saw Mrs. Scarlet Murguia for a rheumatology consultation at [facility] on March 20, 1997. The patient was seen in the Rheumatology Clinic, and was staffed by Dr. Dean. The following is a summary of our findings. CHIEF COMPLAINT: This is a 61-year-old woman complaining of bilateral foot pain. HISTORY OF PRESENT ILLNESS: Mrs. Murguia complains of a chronic bilateral distal foot pain, which she describes as being a burning, tingling "fizzy" feeling that is constant in nature, hurts when she walks, but also hurts at rest, and keeps her awake at night. She feels like she can't feel the tips of her toes, and has noted some tendency to stumble over her feet as she walks. The symptoms began in approximately 1986, and have been slowly progressive since that time. She takes aspirin, Tylenol and Advil as-needed, which gives minimal relief. She rates the pain at about a 5 out of 10. She says that the pain has certainly affected her sleep, and she has a restless component to her sleep disturbance, as she is frequently unable to find a comfortable position, and is constantly fidgeting and moving her legs around at night. She describes the same problem while she is at rest with her legs up watching television or at any other activity where she is not actually using her legs. According to the clinic notes referred to us, the patient had been under consideration for Raynaud phenomenon possibly because she had described a component of having chronically cold feet. However, the patient does not give a history of cold-induced color changes of her hands or feet or cold-induced pain in her extremities. The patient was treated briefly with Cardura at 1 mg and 2 mg doses, but the patient saw no improvement, and the medicine was discontinued. She denies any history of calcinosis, esophageal motility disorders, thickening of the skin over her digits or multiple telangiectasias. 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 The patient recently had an DINH titer drawn, which showed a 1:80 titer. PAST MEDICAL HISTORY: She's had hypothyroidism for which she takes Synthroid. It seems that the dosage is still being titrated at this time. She's had a partial hysterectomy. She takes Premarin and is on Maxzide for systolic hypertension. REVIEW OF SYSTEMS: No chronic fevers. No joint destruction. No history of gout or synovial inflammation. No problems with skin rashes such as malar or discoid lupus. No hair loss. No history of renal dysfunction or hematuria. The patient has had no weight loss recently. Positive review of systems includes frequent brittle nails and dry skin, whereas she used to have fairly oily skin in her youth. CURRENT MEDICATIONS: Maxzide, Premarin and Synthroid. PHYSICAL EXAMINATION: This is a healthy-appearing female who appears considerably less than her stated age of 61, who seems to be in no obvious distress. A focused rheumatological examination was performed. She had no evidence of synovial inflammation at any site. The alignment of the joints was normal. She had no evidence of sclerodactyly on exam. She had intact range of motion in all joints examined. Her lower extremity was notable for a normal hair pattern of both legs (the patient states that during the summer, she often shaves as frequently as every two days). Her pulses were 2+. She had no cyanosis, clubbing or edema. Neurological examination of the lower extremities was performed, which revealed a symmetrical ascending distal neuropathy in a stocking glove distribution that extended as far as the mid foot bilaterally. She had mildly decreased pin prick sensation and position sense. Her light touch was grossly intact. Deep tendon reflexes were 2+ and plantar reflexes were downgoing. There was no evidence, on exam, of a bony deformation of the metatarsal heads, and there was no palpable interosseous soft tissue masses such as a Green's neuroma. ASSESSMENT: The patient describes a progressive distal chronic foot pain characterized by paresthesia, and it is our opinion that this most likely represents a distal neuropathy. Her physical examination further confirmed the presence of distal ascending neuropathy in a very limited distribution. The differential diagnosis of this was quite fast. Notably, the patient does not have diabetes, though it is possible that her hypothyroidism could contribute to this disease. It is unlikely to be a local phenomenon caused by compression of her bones, perhaps by inappropriate footwear, however, there may be a limited component of early metatarsalgia, though physical exam findings for this were not impressive. In regards to the 1:80 DINH titer, this is most likely an age-related normal variance, and it is unlikely to be an indicator of rheumatologic disease. A low titer DINH positivity is quite common in this age group, and in the absence of other signs and symptoms specific to rheumatologic disease, it is probably not of much independent value. PLAN: We suggest that the patient be referred to Neurology for a further work-up of her distal neuropathy, and also to Podiatry to deal with the question of more adequate footwear. The patient is not being scheduled for a return visit at this time, but if you have any further questions, please do not hesitate to contact us. Thank you for your referral to the [facility] Rhe[facility]. Sincerely, Damaso Franks M.D. Resident, Internal Medicine TERRY/artemio cc: Samia Montano M.D. Electric Utility Lineworker, Medicine Rheumatology and Arthritis documented in this encounter Plan of Treatment Not on filedocumented as of this encounter Visit Diagnoses Not on filedocumented in this encounter
--- OUTSIDE RECORDS SUMMARY | ~2019-03-23 | XMS | Clinical Summary ---
Demographics + + + | Address | [address] | | | [place] [address] | + + + | Home Phone | | + + + | Preferred Language | Unknown | + + + | Marital Status | | + + + | Sikh Affiliation | 1077 | + + + | Race | Unknown | + + + | Ethnic Group | Unknown | + + + Author + + + | Author | [facility] | | | and Khurramana | + + + | Organization | [facility] | | | and [place] | [...] Providers + +------+ + | Care Process Laboratory Specialist Name | Role | Phone [...] 0 | | | Activ | | HYDROcodone-acetamin [...] | | | | e | | ([facility]) | | | | | | | | MISC | | | | | | | + + + +---------+------+------+-------+ | [place]-3 Fatty | Take 1 tablet by | [...] e | + + + +---------+------+------+-------+ | PROVENTIL HFA 108 | Inhale 1 puff into | | 0 | 01/1 | | Activ | | (90 Base) MCG/ACT | the lungs every 4 | | | 2/20 | | e | | inhaler | hours as needed. | | | 17 | | | + + + +---------+------+------+-------+ [...] | | + + + +---------+------+------+-------+ | traMADol (ULTRAM) | Take 1 tablet by | 60 | 0 | 10/0 | 10/2 | Activ | | 50 mg tablet | mouth every 6 hours | tablet | | 7/20 | 2/20 | e | | | for 15 days. | | | 19 | 19 | | + + + +---------+------+------+-------+ | oxyCODONE (OXY-IR) | Take 1-2 capsules by | 60 | 0 | 10/1 | 10/2 | Activ | | 5 MG capsule | mouth every 4 hours | capsule | | 5/20 | 9/20 | e | | | as needed for up to | | | 19 | 19 | | | | 14 days. | | [...] | 0 | 10/0 | 10/1 | Activ | | glycol (MIRALAX) | [...] | 0 | 10/0 | 10/1 | Activ | | (ZOFRAN) 4 mg tablet | mouth every 8 hours | tablet | | 7/20 | 4/20 | e | | | as needed for Nausea | | | 19 | 19 | | | | for up to 7 days. | | | | | | + + + +---------+------+------+-------+ | aspirin 81 MG | Take 81 mg by mouth | | 0 | | | Activ | | tablet | Daily. | | | | | e | + + + +---------+------+------+-------+ | ASPIRIN [...] automatically from request for surgery | | [id number] | + + + + + | [...] Pre-Admission | [place] | | | 2018 | Visit | Testing | MD [place] [...] Appointment | | 2018 | | | [employer] | | +--------+ + + + + | 03/14/ | Hospital | Radiology | [place] | Left hip pain | | 2018 | Encounter | | MD [place]ain[place] | | +--------+ + + + + | 03/14/ | Office | Orthopedic Surgery | Mark [place] | Post-traumatic | | 2018 | Visit | | MD [place]aina | [...] Temperature | 36.2 C (97.2 F) | 10/14/20161301 PDT | + + + + | [...] 03/21/20191533 PDT | + + + + Plan of Treatment +--------+ + + + + | Date | Type | Specialty | Care Team | Description | +--------+ + + + + | 03/29/ | Hospital | | Mark [place] | Left hip pain | | 2019 | Encounter | | MD [address] | | | | | | [address] | | | | | | [place] [address] | | | | | | [phone] | | | | | | | | +--------+ + + + + | 03/29/ | Surgery | | Mark [place] | Posterior Total Hip | | 2019 | | | MD [address] | Arthroplasty: | | | | | [address] | [employer] | | | | | [place] [address] | | | | | | [phone] | | | | | | | | +--------+ + + + + | 04/11/ | Office | Orthopedic Surgery | Gus Orozco, | | | 2018 | Visit | | [address] | | | | | | [place] | | | | | | [place] [address] | | | | | | [phone] | | | | | | | | +--------+ + + + + | 05/16/ | Office | Orthopedic Surgery | Mark [place] | | | 2018 | Visit | | MD [address] | | | | | | [place] | | | | | | [place] [address] | | | | | | [phone] | | | | | | | | +--------+ + + + + | 06/30/ | Office | Cardiology | Smitha Griffin DO | | | 2019 | Visit | | [address] | | | | | | [place] | | | | | | [address] | | | | | | | | +--------+ + + + + + + + [...] | Date | / Lot | + +-------+------+ +--------+--------+--------+ | Stent Bili Advnx 10fr 5cm - | Stent | | [place] | | | [id number] / | | [id number]: Qty: 1 on | | | SCIENTIFIC | | | / | | 09/26/2016 by Gregor Mccord | | | BIGG - BSCI | | | | | E, MD | | | | | | | + +-------+------+ +--------+--------+--------+ Procedures + +--------+ + + + [...] + + from Last 3 Months Results MRSA NAAT (03/21/2019 15:37 PDT) + + [...] Result | NEGATIVEComment: Testing | MRSNEG | JETHRO | | | | performed at [facility];[address] | | LABORATORY | | | | [address];[place] | | | | | | [address] | | | | + + + + + + + + | Specimen | + + | Tissue | + + + + + + + | Performing | Address | City/State/Zipcode | Phone Number | | Organization | | | | + + + + + | [facility] | [address] | [place] [address] | [phone] | + + + + + Type and Screen (03/21/2019 15:37 PDT) + [...] Antibody | Testing performed at | | [facility] | | | Screen | [facility];[address] | | LABORATORY | | | | [address];[place] [address] | | | | + + + + + + + + | Specimen | + + | Blood | + + + + + + + | Performing | Address | City/State/Zipcode | Phone Number | | Organization | | | | + + + + + | [facility] | [address] | [place] [address] | [phone] | + + + + + CBC [...] | | | | | performed at [facility];[address] | | | | | | [address];[place], [place] | | | | | | [address] | | | | + + + + + + + + | Specimen | + + | Blood | + + + + + + + | Performing | Address | City/State/Zipcode | Phone Number | | Organization | | | | + + + + + | [facility] | [address] | [place] [address] | [phone] | + + + + + Hemoglobin A1C (03/21/2019 15:33 PDT) + + + + + + | Component | Value | Ref Range | Performed | Pathologist | | | | | At | Signature | + + + + + + | Hemoglobin | 5.8Comment: HbA1c method | 4.0 - 6.0 % | [facility] | | | A1c | is certified by [facility] | | LABORATORY | | | | [...] | 120Comment: Estimated | <154 mg/dL | [facility] | | | Average | Average Glucose | | LABORATORY | | | Glucose | calculated from | | | | | | hemoglobin A1c by use of | | | | | | the ADArecommended | | | | | | formula.Testing | | | | | | performed at [facility], [address] | | | | | | [facility], | | | | | | [place] [address] | | | | + + + + + + + + | Specimen | + + | Blood | + + + + + + + | Performing | Address | City/State/Zipcode | Phone Number | | Organization | | | | + + + + + | [facility] | [address] | [place] [address] | [phone] | + + + + + Basic [...] | >60Comment: GFR <60: | >60 | [facility] | | | GFR | CHRONIC KIDNEY [...] | | | | | | [facility]D [facility] traceable | | | | | | equation.Testing | | | | | | performed at [facility];[address] | | | | | | [facility];[place], [place] | | | | | | [address] | | | | + + + + + + + + | Specimen | + + | Blood | + + + + + + + | Performing | Address | City/State/Zipcode | Phone Number | | Organization | | | | + + + + + | [facility] | [address] | [place] [address] | [phone] | + + + + + ECG [...] 3 Months Insurance + +--------+ +--------+-------+---------+--------+ | Payer | Benefi | Subscriber | Effect | Phone | Address | Type | | | t Plan | ID | nestor | | | | | | / | | Dates | | | | | | Group | | | | | | + +--------+ +--------+-------+---------+--------+ | [employer] | MOD[employer] | [id number] | 06/15/19 | | | Medica | | | HEALTH | | 17-Pre | | | re | | | MDCR | | sent | | | | + +--------+ +--------+-------+---------+--------+ | [employer] | [employer] | [id number] | | | | Medica | | [...] + +--------+ +--------+ + + | Scarlet uMrguia | Person | Self [birth year] | [address] | | | al/Fam | | 1936 | [phone] | [place] [address] | | | aissatou | | | 3 (Home) | | + +--------+ +--------+ + + | Scarlet Murguia | Person | Self | [birth year] | [address] | | | al/Fam | | 1936 | [phone] | [place] [address] | | | aissatou | | | 3 (Home) | | + +--------+ +--------+ + + Advance Directives Patient has advance care planning documents on file. For more information, please contact:[facility] [place] [address]
--- OUTSIDE RECORDS SUMMARY | ~2019-03-23 | XMS | Encounter Summary ---
Demographics + + + | Address | [address] | | | [place] [address] | + + + | Home Phone [...] + + + | Chrissie Leos | DRIK | [place] | | + + + + + Care Team Providers + +------+ + | Care Jewelry Store Manager Name | Role | Phone | [...] [id number] | | | | | | [facility] | | | | | | and Healing, | | | | | | Building [address], [address]th | | | | | | Floor [place], [place] | | | | | | [address] | | | | | | [phone] | | | +--------+ + + + [...] ls | | | | | | Received:[id number]/WW-[id number] | | | | | | 360-16 [...] | | | | | | CARCINOMA, | | | | | | MORPHEAFORM. 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 Basal cell | | | | | | carcinoma ispresent at | | | | | | the deep biopsy | | | | | | margin. | | | | | | Materials | | | | | | Returned:[id number] | | | | | | 360-16 x1 slide | | | | | | My electronic signature | | | | | [...] | | | | | | Rendering | | | | | | Diagnostician: Lulú | | | | | | ga James | | | | | | MDPathologistElectronica | | | | | | lly Signed | | | | | | 10/02/2015 9:48AM | | | | + + [...] + + + + | [facility] | [address]INE, [address] | [place] [id number] | | | DERMATOPATHOLOGY | [address] | | | + + + + + documented in this encounter Visit Diagnoses Not on filedocumented in this encounter"
--- OUTSIDE RECORDS SUMMARY | ~2019-03-23 | XMS | Encounter Summary ---
Demographics + + + | Address | [address] | | | [place] [address] | + + + | Home Phone | | + + + | Preferred Language | Unknown | + + + | Marital Status | | + + + | Gnosticism Affiliation | 1077 | + + + | Race | Unknown | + + + | Ethnic Group | Unknown | + + + Author + + + | Author | [facility] | | | and Khurramana | + + + | Organization | [facility] | | | and [...] Team Providers + +------+ + | Care Photo Producer Name | Role | Phone | [...] Surgery Appointment | | 2018 | | [place] [address] | Operator Technician | | | | | [place] | | | | | | [address] | | | | | | [phone] | | | +--------+ + + + [...] [address] | | | | | | [place] [address] | | | | | | [phone] | | | | | | | | +--------+ + + + + | 03/29/ | Surgery | | Mark [place] | Posterior Total Hip | | 2018 | | | MD [address] | Arthroplasty: | | | | | [address] | [employer] | | | | | [place] [address] | | | | | | [phone] | | | | | | | | +--------+ + + + + | 04/11/ | Office | Orthopedic Surgery | Gus Orozco, | | | 2018 | Visit | | [address] | | | | | | [place] | | | | | | [place] [address] | | | | | | [phone] | | | | | | | | +--------+ + + + + | 05/16/ | Office | Orthopedic Surgery | Mark Montnaa | | | 2018 | Visit | | MD [address] | | | | | | [address] | | | | | | [place] [address] | | | | | | [phone] | | | | | | | | +--------+ + + + + | 06/30/ | Office | Cardiology | Smitha Griffin DO | | | 2019 | Visit | | [address] | | | | | | [place] | | | | | | [id number] | | | | | | | | +--------+ + + + + documented as of this encounter Visit Diagnoses Not on filedocumented in this encounter"
--- OUTSIDE RECORDS SUMMARY | ~2019-03-23 | XMS | Encounter Summary ---
Demographics + + + | Address | [address] | | | [place] [address] | + + + | Home Phone | | + + + | Preferred Language | Unknown | + + + | Marital Status | | + + + | Confucianism Affiliation | Unknown | + + + | Race | White | + + + | Ethnic Group | Not or | + + + Author + + + | Author | [facility] | + + + | Organization | [facility] | + + + | [...] Team Providers + +------+ + | Care Remote Recruiter Name | Role | Phone | [...] [address] | | | | | | [place], [place] | | | | | | [address] | | | +--------+ + + + [...]
--- OUTSIDE RECORDS SUMMARY | ~2019-03-23 | XMS | Encounter Summary ---
Demographics + + + | Address | [address] | | | [place] [address] | + + + | Home Phone [...] Author | [facility] | | | and Khurramana | + + + | Organization | [facility] | | | and [...] Providers + +------+ + | Care Piano Accompanist Name | Role | Phone | + +------+ + | Susan Leos | PCP | | | PA-C | | | + +------+ + Encounter Details +--------+ + + + + | Date | Type | Department | Care Team | Description | +--------+ + + + + | 03/14/ | [facility] | [facility] | Mark [place] | Left hip pain | | 2018 | Encounter | [place] [address] | MD [address] | | | | | [address] | [address] | | | | | [place], [place] | [place] [address] | | | | | [address] | [phone] | | | | | [phone] | | | +--------+ + + + [...] 6 hours | | | | | | ophen (NORCO) 5-325 | as [...] | | | | | | | ([facility]) | | | | | | | MISC | | | | | | + + + +---------+ + + | [place]-3 Fatty | Take 1 tablet by | [...] 1 puff into | | 0 | 01/12/20 | | | (90 Base) MCG/ACT | the lungs every 4 | | | 17 | | | inhaler | hours as needed. [...] 2019 | Encounter | | MD [address]a [address] | | | | | | [address] | | | | | | [place] [address] | | | | | | [phone] | | | | | | | | +--------+ + + + + | 03/29/ | Surgery | | Mark [place] | Posterior Total Hip | | 2019 | | | MD [address] | Arthroplasty: | | | | | [address] | [employer] | | | | | [place] [address] | | | | | | [phone] | | | | | | | | +--------+ + + + + | 04/11/ | Office | Orthopedic Surgery | Gus Orozco, | | | 2019 | Visit | | [address] | | | | | | [place] | | | | | | [place] [address] | | | | | | [phone] | | | | | | | | +--------+ + + + + | 05/16/ | Office | Orthopedic Surgery | Mark [place] | | | 2018 | Visit | | MD [address]ain[address] | | | | | | [address] | | | | | | [place] [address] | | | | | | [phone] | | | | | | | | +--------+ + + + + | 06/30/ | Office | Cardiology | Smitha Griffin DO | | | 2019 | Visit | | [address] | | | | | | [place] | | | | | | [address] | | | | | | | | +--------+ + + + + + +--------+ + + | Name | Priori | Associated Diagnoses | Date/Time | | | ty | | | + +--------+ + + | XR Hip Left 2-3 Views | Routin | Left hip pain | 03/14/2019 15:48 PDT | | | e | | | + +--------+ + + + +--------+ + + | Name | Priori | Associated Diagnoses | Order Schedule | | | ty | | | + +--------+ + + | XR Hip Left 2-3 Views | Routin | Left hip pain | 1 Occurrences | | | e | | starting 03/14/2019 | | | | | until 03/14/2019 | + +--------+ + + documented as of this encounter Visit Diagnoses + + | Diagnosis | + + | Left hip pain Pain in joint, pelvic region and thigh | + + documented in this encounter"
--- OUTSIDE RECORDS SUMMARY | ~2019-03-23 | XMS | Encounter Summary ---
Demographics + + + | Address | [address] | | | [place] [address] | + + + | Home Phone [...] + | Author | [facility] (Historical as of | | | 01-29-19) | + + + | Organization | [facility] (Historical as of | | | 01-29-19) | + + + | Address | Unknown | + + + | Phone | Unavailable | + + + Support + + + + + | Name | Relationship | Address | Phone | + + + + + | Alejo Murguia | DIRK | [address] | | | | | [place] [address] | | + + + + + Care Team Providers + +------+ + | Care Applique Cutter Name | Role | Phone | [...] | 2019 | on Only | [facility] | [address] | | | | | [address] | [place], [place] | | | | | [place], [place] | [address] | | | | | [address] | | | | | | [phone] | | | +--------+ + + + [...]
--- OUTSIDE RECORDS SUMMARY | ~2019-03-23 | XMS | Encounter Summary ---
Demographics + + + | Address | [address] | | | [place] [address] | + + + | Home Phone [...] Team Providers + +------+ + | Care Broker Assistant Name | Role | Phone | [...] CH16[facility] | | | | | | [facility] | | | | | | and Healing, | | | | | | Building 1, 5th | | | | | | Floor [place], [place] | | | | | | [address] | | | | | | [phone] | | | +--------+ + + + [...] ls | | | | | | Received:[id number] | | | | | | 360-16 [...] Materials | | | | | | Returned:[id number] | | | | | | 360-16 [...] + + | [facility] | [address], [address] | [place] [id number] | | | DERMATOPATHOLOGY | [address] | | | + + + + + documented in this encounter Visit Diagnoses Not on filedocumented in this encounter"
--- OUTSIDE RECORDS SUMMARY | ~2019-03-23 | XMS | Clinical Summary ---
Demographics + + + | Address | [address] | | | [place] [address] | + + + | Home Phone | | + + + | Preferred Language | Unknown | + + + | Marital Status | | + + + | Moravian Affiliation | Unknown | + + + | Race | Unknown | + + + | Ethnic Group | Unknown | + + + Author + + + | Author | [facility] (Historical as of | | | 01-29-19) | + + + | Organization | [facility] (Historical as of | | | 01-29-19) | + + + | Address | Unknown | + + + | Phone | Unavailable | + + + Support + + + + + | Name | Relationship | Address | Phone | + + + + + | Alejo Murguia | DIRK | [address] | | | | | [place] [address] | | + + + + + Care Team Providers + +------+ + | Care Set Rider Name | Role | Phone | + [...]
--- OUTSIDE RECORDS SUMMARY | ~2019-03-23 | XMS | Encounter Summary ---
Demographics + + + | Address | [address] | | | [place] [address] | + + + | Home Phone [...] + + + | Author | [facility] | + + + | Organization | [facility] | + + + | Address | Unknown | + + + | Phone | Unavailable | + + + Support + + + + + | Name | Relationship | Address | Phone | + + + + + | Chrissie Leos | DIRK | [place] | | + + + + + Care Team Providers + +------+ + | Care Executive Administrative Assistant Name | Role | Phone | [...] Clinic Dermatology | | | | | [facility] | [address] [facility] | | | | | and Healing, | [place] | | | | | [facility] | [address] | | | | | Floor [place], [place] | | | | | | [address] | | | | | | [phone] | | | +--------+ + + + [...] | OLOGY | | | | Case: | | | | | | [id number] | | | | | | | | | | | | | | | | | | Authorizing | | | | | | Provider: Lefty | | | | | | Ezequiel Gonzalez | | | | | | PA Collec | | | | | | justa: | | | | | | | | | | | | 01/12/2019 | | | | | | | | | | | | Ordering | | | | | | Location: | | | | | | Dermatopathology | | | | | | | | | | | | Received: | | | | | | 01/13/2019 | | | | | | 1225 | | | | | | Pathologist: | | | | | | Laurie Garcia | | | | | | Keo | | | | | | Erika, | | | | | | | [...] | | | | | determined by [facility] | | | | | | laboratories. [...] | + + + + + | [facility] | [address], [address] | [place] [address] | | | DERMATOPATHOLOGY | [address] | | | + + + + + documented in this encounter Visit Diagnoses + + | Diagnosis | + + | Neoplasm of uncertain behavior of skin | + + documented in this encounter
--- OUTSIDE RECORDS SUMMARY | ~2019-03-23 | XMS | Clinical Summary ---
Demographics + + + | Address | [address] | | | [place] [address] | + + + | Home Phone | | + + + | Preferred Language | Unknown | + + + | Marital Status | | + + + | Jewish Affiliation | Unknown | + + + [...] Providers + +------+ + | Care Director Check Name | Role | Phone | + +------+ + PCP | Unavailable | + +------+ + Source Comments FIORELLA is fully live on both [facility] Ambulatory and [facility] InPatient.[facility] Allergies Not [...] Case: | | | | | | [id number] | | | | | | | | | | | | | | | | | | Authorizing | | | | | | Provider: Lefty | | | | | | Ezequiel Gonzalez, | | | | | | ALEKSANDAR Paula | | | | | | justa: [...] | | | | | | Keo Jaems | | | | | | on 01/14/2019 | | | | | [...] [facility] | Mail[address], [address] | [place] [address] | | | DERMATOPATHOLOGY | [address] [...] | [employer] | xxxxxxxxx | Effect | [phone] | [address] | PPO | | | MEDICA | | nestor | 4 | [address] | | | | RE PPO | | for | | [place], | | | | | | all | | [place] [address] | | | | | | dates [...] | 1936 | [phone] | [place] [address] | | | aissatou | | | 3 (Home) | | + +--------+ +--------+ + +
--- OUTSIDE RECORDS SUMMARY | ~2019-03-23 | XMS | Clinical Summary ---
Demographics + + + | Address | [address] | | | [place] [address] | + + + | Home Phone [...] | [facility] | | | and Khurramana | + + + | Organization | [facility] | | | and [place] | [...] Team Providers + +------+ + | Care Retail Sales Consultant Name | Role | Phone | [...] | | + + + +---------+------+------+-------+ | Mcewen-3 Fatty | Take 1 tablet by | [...] automatically from request for surgery | | [id number] | + + + + + | [...] Appointment | | 2018 | | | Law Enforcement Director | | +--------+ + + + + [...] | | | | | [place] [address] | | | | | | [phone] | | | | | | | | +--------+ + + + + | 03/29/ | Surgery | | Mark [place] | Posterior Total Hip | | 2019 | | | MD Alaina [address] | Arthroplasty: | | | | | [address] | [employer] | | | | | [place] [address] | | | | | | [phone] | | | | | | | | +--------+ + + + + | 04/11/ | Office | Orthopedic Surgery | Gus Orozco, | | | 2018 | Visit | | [address] | | | | | | [place] | | | | | | [place] [address] | | | | | | [phone] | | | | | | | | +--------+ + + + + | 05/16/ | Office | Orthopedic Surgery | Mark [place] | | | 2018 | Visit | | MD Alaina [address] | | | | | | [place] [address] | | | | | | [place] [address] | | | | | | [phone] | | | | | | | | +--------+ + + + + | 06/30/ | Office | Cardiology | Smitha Griffin DO | | | 2019 | Visit | | [address] | | | | | | [place] | | | | | | [address] | | | | | | | [...] | | | 3432 / | | [id number]: Qty: 1 on | | | SCIENTIFIC | | | / | | 09/26/2016 by Gregor Mccord | | | BGIG - BSCI | | | | | [...] JETHRO | | | | performed at [facility];[address] | | LABORATORY | | | | [address];[place] | | | | | | [address] | | | | + + + + + + + + | Specimen | + + | Tissue | + + + + + + + | Performing | Address | City/State/Zipcode | Phone Number | | Organization | | | | + + + + + | [facility] | [address] | [place] [address] | [phone] | + + + + + Type [...] LABORATORY | | | | Blvd;[place] [address] | | | | + + + + + + + + | Specimen | + + | Blood | + + + + + + + | Performing | Address | City/State/Zipcode | Phone Number | | Organization | | | | + + + + + | [facility] | [address] | [place] [address] | [phone] | + + + + + CBC [...] | | | | performed at [facility];[address] | | | | | | [address];[place], [place] | | | | | | [address] | | | | + + + + + + + + | Specimen | + + | Blood | + + + + + + + | Performing | Address | City/State/Zipcode | Phone Number | | Organization | | | | + + + + + | [facility] | [address] | [place] [address] | [phone] | + + + + + Hemoglobin A1C (03/21/2019 15:33 PDT) + + + + + + | Component | Value | Ref Range | Performed | Pathologist | | | | | At | Signature | + + + + + + | Hemoglobin | 5.8Comment: HbA1c method | 4.0 - 6.0 % | [facility] | | | A1c | is certified by [facility] | | LABORATORY | | [...] | 120Comment: Estimated | <154 mg/dL | [facility] | | | Average | Average Glucose | | LABORATORY | | | Glucose | calculated from | | | | | | hemoglobin A1c by use of | | | | | | the ADArecommended | | | | | | formula.Testing | | | | | | performed at [facility], [address] | | | | | | [facility], | | | | | | [place] [address] | | | | + + + + + + + + | Specimen | + + | Blood | + + + + + + + | Performing | Address | City/State/Zipcode | Phone Number | | Organization | | | | + + + + + | [facility] | [address] | [place] [address] | [phone] | + + + + + Basic [...] | >60Comment: GFR <60: | >60 | [facility] | | | GFR | [...] | | | | | | [facility]D [facility] traceable | | | | | | equation.Testing | | | | | | performed at [facility];[address] | | | | | | [facility];[place], [place] | | | | | | [address] | | | | + + + + + + + + | Specimen | + + | Blood | + + + + + + + | Performing | Address | City/State/Zipcode | Phone Number | | Organization | | | | + + + + + | [facility] | [address] | [place] [address] | [phone] | + + + + + ECG [...] | [facility] [facility] | [facility] | [id number] | 06/15/19 | | | Medica | | | HEALTH | | 17-Pre | | | re | | | MDCR | | sent | | | | + +--------+ +--------+-------+---------+--------+ | [employer] [facility] | [employer] | [id number] | | | | Medica | | [...] | 1936 | [phone] | [place] [address] | | | aissatou | | | 3 (Home) | | + +--------+ +--------+ + + | Scarlet Murguia | Person | Self | [birth year] | [address] | | | al/Fam | | 1936 | [phone] | [place] [address] | | | aissatou | | | 3 (Home) | | + +--------+ +--------+ + + Advance Directives Patient has advance care planning documents on file. For more information, please contact:[facility] [place] [address]
--- OUTSIDE RECORDS SUMMARY | ~2019-03-23 | XMS | Encounter Summary ---
Demographics + + + | Address | [address] | | | [place] [address] | + + + | Home Phone [...] Team Providers + +------+ + | Care Land Surveying Survey Worker Name | Role | Phone | [...] Rd | | | | | | [place], [place] | | | | | | [address] | | | +--------+ + + + [...]
--- OUTSIDE RECORDS SUMMARY | ~2019-03-23 | XMS | Encounter Summary ---
Demographics + + + | Address | [address] | | | [place] [address] | + + + | Home Phone [...] + | Author | [facility] agreement24 avtal24 (Historical as of | | | 01-29-19) | + + + | Organization | [facility] agreement[facility] avtal24 (Historical as of | | | 01-29-19) | + + + | Address | Unknown | + + + | Phone | Unavailable | + + + Support + + + + + | Name | Relationship | Address | Phone | + + + + + | Alejo Murguia | DIRK | [address] | | | | | [place] [address] | | + + + + + Care Team Providers + +------+ + | Care Steamboat Inspector Name | Role | Phone | [...] | 2019 | on Only | Cardiology [facility] | [address] | | | | | [address] | [place], [place] | | | | | [place], [place] | [address] | | | | | [address] | | | | | | [phone] | | | +--------+ + + + [...]
--- OUTSIDE RECORDS SUMMARY | ~2019-03-23 | XMS | Clinical Summary ---
Demographics + + + | Address | [address] | | | [place] [address] | + + + | Home Phone [...] Team Providers + +------+ + | Care Credit Risk Management Director Name | Role | Phone | + +------+ + PCP | Unavailable | + +------+ + Source Comments FIORELLA is fully live on both [facility] Ambulatory and [facility] InPatient.[facility] Allergies Not on File Medications Not [...] Case: | | | | | | [id number] | | | | | | | [...] James | | | | | | on [...] [facility] | Mail[address], [address] | [place] [address] | | | DERMATOPATHOLOGY | [address] [...] RE PPO | | for | | [place], | | | | | | all | | [place] [address] | | | | | | dates [...] | 1936 | [phone] | [place] [address] | | | aissatou | | | 3 (Home) | | + +--------+ +--------+ + +
--- OUTSIDE RECORDS SUMMARY | ~2019-03-23 | XMS | Encounter Summary ---
Demographics + + + | Address | [address] | | | [place] [address] | + + + | Home Phone [...] Author | [facility] | | | and Khurramana | + + + | Organization | [facility] | | | and [...] Team Providers + +------+ + | Care Legislative Analyst Name | Role | Phone | + +------+ + | Susan Leos | PCP | | | PA-C | | | + +------+ + Encounter Details +--------+ + + + + | Date | Type | Department | Care Team | Description | +--------+ + + + + | 03/21/ | Preadmit | [facility] | Mark [place] | | | 2019 | Visit | [facility] | MD [address]aina [address] | | | | | CLINIC [address] | [place] [address] | | | | | [place], [place] | [place] [address] | | | | | [address] | [phone] | | | | | [phone] | | | +--------+ + + + [...] | Encounter | | MD Paul [address] | | | | | | [place] | | | | | | [place] [address] | | | | | | [phone] | | | | | | | | +--------+ + + + + | 03/29/ | Surgery | | Mark [place] | Posterior Total Hip | | 2019 | | | MD Paul Foley | Arthroplasty: | | | | | [address] | [employer] | | | | | [place] [address] | | | | | | [phone] | | | | | | | | +--------+ + + + + | 04/11/ | Office | Orthopedic Surgery | Gus Orozco, | | | 2018 | Visit | | [address] | | | | | | [place] | | | | | | [place] [address] | | | | | | [phone] | | | | | | | | +--------+ + + + + | 05/16/ | Office | Orthopedic Surgery | Mark [place] | | | 2018 | Visit | | MD Alaina [address] | | | | | | [place] | | | | | | [place] [address] | | | | | | [phone] | | | | | | | | +--------+ + + + + | 06/30/ | Office | Cardiology | Smitha Griffin DO | | | 2019 | Visit | | [address] | | | | | | [place] | | | | | | [address] | | | | | | | [...] | [facility] | | | Screen | [facility];[address] | | LABORATORY | | | | Blvd;[place] [address] | | | | + + + + + + + + | Specimen | + + | Blood | + + + + + + + | Performing | Address | City/State/Zipcode | Phone Number | | Organization | | | | + + + + + | [facility] | [address] | [place] [address] | [phone] | + + + + + MRSA [...] [facility] | | | | performed at [facility];[address] | | LABORATORY | | | | [address];[place], [place] | | | | | | [address] | | | | + + + + + + + + | Specimen | + + | Tissue | + + + + + + + | Performing | Address | City/State/Zipcode | Phone Number | | Organization | | | | + + + + + | [facility] | [address] | [place] [address] | [phone] | + + + + + Hemoglobin [...] | | | | | performed at [facility], [address] | | | | | | [address] [facility], | | | | | | [place] [address] | | | | + + + + + + + + | Specimen | + + | Blood | + + + + + + + | Performing | Address | City/State/Zipcode | Phone Number | | Organization | | | | + + + + + | [facility] | [address] | [place] [address] | [phone] | + + + + + CBC [...] | | | | | performed at [facility];[address] | | | | | | [address];[place], [place] | | | | | | [address] | | | | + + + + + + + + | Specimen | + + | Blood | + + + + + + + | Performing | Address | City/State/Zipcode | Phone Number | | Organization | | | | + + + + + | [facility] | [address] | [place] [address] | [phone] | + + + + + Basic [...] | | | | | performed at [facility];[address] | | | | | | [facility];[place], [place] | | | | | | [address] | | | | + + + + + + + + | Specimen | + + | Blood | + + + + + + + | Performing | Address | City/State/Zipcode | Phone Number | | Organization | | | | + + + + + | [facility] | [address] | [place] [address] | [phone] | + + + + + ECG [...]
--- OUTSIDE RECORDS SUMMARY | ~2019-03-23 | XMS | Encounter Summary ---
Demographics + + + | Address | [address] | | | [place] [address] | + + + | Home Phone | | + + + | Preferred Language | Unknown | + + + | Marital Status | | + + + | Mandaen Affiliation | Unknown | + + + | Race | White | + + + | Ethnic Group | Not or | + + + Author + + + | Author | [facility] | + + + | Organization | [facility] | + + + | Address [...] Team Providers + +------+ + | Care Banking Services Clerk Name | Role | Phone | [...] CH16D | | | | | | [facility] | | | | | | and Healing, | | | | | | Building [address], [address]th | | | | | | Floor [place], [place] | | | | | | [address] | | | | | | [phone] | | | +--------+ + + + [...] | | | OLOGY(WET | jawline, shave | | DERMATOPATH | | | MNT) | biopsy CLINICAL | | OLOGY | [...] | | | | | | skin, [id number]. The | | | | | | [...] | | | | | marked solar | | | | | | [...] | | | | | | Completed: | | | | | | 03/19/2017 5:25PM | | | | + + [...] [facility] | [address], [address] | [place] [address] | | | DERMATOPATHOLOGY | [address] | | | + + + + + documented in this encounter Visit Diagnoses + + | Diagnosis | + + | Other melanin hyperpigmentation | + + documented in this encounter
--- OUTSIDE RECORDS SUMMARY | ~2019-03-23 | XMS | Encounter Summary ---
Demographics + + + | Address | [address] | | | [place] [address] | + + + | Home Phone [...] + | Author | [facility] | | | and Khurramana | + + + | Organization | [facility] | | | [...] Providers + +------+ + | Care Assistant Clinical Director Name | Role | Phone | + +------+ + | Susan Leos | PCP | | | PA-C | | | + +------+ + Encounter Details +--------+ + + + + | Date | Type | Department | Care Team | Description | +--------+ + + + + | 03/21/ | Preadmit | [facility] | Mark [place] | | | 2019 | Visit | [facility] | MD [address]aina [address] | | | | | CLINIC [address] | [place] [address] | | | | | SAM [place], [place] | [place] [address] | | | | | [address] | [phone] | | | | | [phone] | | | +--------+ + + + [...] | | | | | | [address] | | | | | | [place] [address] | | | | | | [phone] | | | | | | | | +--------+ + + + + | 03/29/ | Surgery | | Mark [place] | Posterior Total Hip | | 2019 | | | MD Paul Foley | Arthroplasty: | | | | | [address] | [employer] | | | | | [place] [address] | | | | | | [phone] | | | | | | | | +--------+ + + + + | 04/11/ | Office | Orthopedic Surgery | Gus Orozco, | | | 2018 | Visit | | [address] | | | | | | [place] | | | | | | [place] [address] | | | | | | [phone] | | | | | | | | +--------+ + + + + | 05/16/ | Office | Orthopedic Surgery | Mark [place] | | | 2018 | Visit | | MD Alaina [address] | | | | | | [place] | | | | | | [place] [address] | | | | | | [phone] | | | | | | | | +--------+ + + + + | 06/30/ | Office | Cardiology | Smitha Griffin DO | | | 2019 | Visit | | [address] | | | | | | [place] | | | | | | [address] | | | | | | | [...] | [facility] | | | Screen | [facility];[address] | | LABORATORY | | | | Blvd;[place] [address] | | | | + + + + + + + + | Specimen | + + | Blood | + + + + + + + | Performing | Address | City/State/Zipcode | Phone Number | | Organization | | | | + + + + + | [facility] | [address] | [place] [address] | [phone] | + + + + + MRSA [...] [facility] | | | | performed at [facility];[address] | | LABORATORY | | | | [address];[place], [place] | | | | | | [address] | | | | + + + + + + + + | Specimen | + + | Tissue | + + + + + + + | Performing | Address | City/State/Zipcode | Phone Number | | Organization | | | | + + + + + | [facility] | [address] | [place] [address] | [phone] | + + + + + Hemoglobin A1C (03/21/2019 15:33 PDT) + + + + + + | Component | Value | Ref Range | Performed | Pathologist | | | | | At | Signature | + + + + + + | Hemoglobin | 5.8Comment: HbA1c method | 4.0 - 6.0 % | [facility] | | | A1c | [...] | 120Comment: Estimated | <154 mg/dL | [facility] | | | Average | Average Glucose | | LABORATORY | | | Glucose | calculated from | | | | | | hemoglobin A1c by use of | | | | | | the ADArecommended | | | | | | formula.Testing | | | | | | performed at [facility], [address] | | | | | | [address] [facility], | | | | | | [place] [address] | | | | + + + + + + + + | Specimen | + + | Blood | + + + + + + + | Performing | Address | City/State/Zipcode | Phone Number | | Organization | | | | + + + + + | [facility] | [address] | [place] [address] | [phone] | + + + + + CBC [...] | | | | | performed at [facility];[address] | | | | | | [address];[place], [place] | | | | | | [address] | | | | + + + + + + + + | Specimen | + + | Blood | + + + + + + + | Performing | Address | City/State/Zipcode | Phone Number | | Organization | | | | + + + + + | [facility] | [address] | [place] [address] | [phone] | + + + + + Basic [...] | | | | | performed at [facility];[address] | | | | | | [facility];[place], [place] | | | | | | [address] | | | | + + + + + + + + | Specimen | + + | Blood | + + + + + + + | Performing | Address | City/State/Zipcode | Phone Number | | Organization | | | | + + + + + | [facility] | [address] | [place] [address] | [phone] | + + + + + ECG [...]
--- OUTSIDE RECORDS SUMMARY | ~2019-03-23 | XMS | Encounter Summary ---
Demographics + + + | Address | [address] | | | [place] [address] | + + + | Home Phone [...] | Author | [facility] | | | and Khurramana | + + + | Organization | [facility] | | | and [...] + +------+ + | Care Director Of Sleep Name | Role | Phone | + [...] | | | | | hip | [address] | [address] | | | | | | Phone: | Phone: | | | | | | [phone] | [phone] | | | | | | Fax: | Fax: | | | | | | [phone] | [phone] | + + + + + + [...] | | | | | from | [address] | [address] | | | | | [place] at | [address] | [address] | | | | | [facility] | [place], | [place], [place] | | | | | Procedures | [place] | [address] Phone: | | | | | NEW PATIENT | [address] | [phone] | | | | | | Phone: | Fax: | | | | | | [phone] | [phone] | | | | | | Fax: | | | | | | | [phone] | | + +--------+ + + + + Encounter Details +--------+---------+ + + + | Date | Type | Department | Care Team | Description | +--------+---------+ + + + | 03/21/ | Office | [facility] | Gus Orozco, | 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[place], [place]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[place], | left hip (Primary | | | | [address] | [place] [address] | Dx) | | | | [phone] | [phone] | | | | | | | [...] Procedure: ERCP; Surgeon: Gregor Mccord MD; Location: [facility] MEDICAL PROCEDURE UNIT ERCP N/A 10/14/2016 Procedure: ERCP w/ stent pull; Surgeon: Gregor Mccord MD; Location: [facility] PROC[facility] RE UNIT PARTIAL [...] Maternal Uncle Social History Occupational History 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 Tobacco Use Smoking status: Never [...] MISC, Take by mouth., Disp: , Rfl: [place]-3 Fatty Acids (PRO NUTRIENTS OMEGA 3 PO), [...] 12 months?:yes Under the care of a digital learning platforms manager?: no Diabetes Optimization?:well controlled diet No results found for: LABGLYC History of MRSA/MSSA infection?:no Metal sensitivity or allergy?:no Intolerance to certain specific opiate?:no DVT/PE Risk Stratification Personal history of DVT/PE?:no Cancer treatment in the last 5 years?:no Hormone replacement therapy?:no Tolerate aspirin?:asa Current Anticoagulation?:asa Chemical prophylaxis plan:asa Anticipated Discharge Plan Discharge home to care of daughter (princess), [facility] Return for 2 and 6 [...] | | | | | [place] [address] | | | | | | [phone] | | | | | | | | +--------+ + + + + | 03/29/ | Surgery | | Mark Montana | Posterior Total Hip | | 2019 | | | MD Paul Foley | Arthroplasty: | | | | | [address] | [employer] | | | | | [place] [address] | | | | | | [phone] | | | | | | | | +--------+ + + + + | 04/11/ | Office | Orthopedic Surgery | Gus Orozco, | | | 2018 | Visit | | [place] | | | | | | [place] | | | | | | [place] [address] | | | | | | [phone] | | | | | | | | +--------+ + + + + | 05/16/ | Office | Orthopedic Surgery | Mark Montana | | | 2019 | Visit | | MD Alain[address] | | | | | | [place] | | | | | | [place] [address] | | | | | | [phone] | | | | | | | | +--------+ + + + + | 06/30/ | Office | Cardiology | Smitha Griffin DO | | | 2019 | Visit | | [address] | | | | | | [place] | | | | | | [address] | | | | | | | [...]
--- OUTSIDE RECORDS SUMMARY | ~2019-03-23 | XMS | Encounter Summary ---
Demographics + + + | Address | [address] | | | [place] [address] | + + + | Home Phone [...] + | Author | [facility] [place] | | | and Khurramana | + + + | Organization | [facility] [...] Team Providers + +------+ + | Care Therapy Site Coordinator Name | Role | Phone | + +------+ + | Susan Leos | PCP | | | PA-C | | | + +------+ + Encounter Details +--------+ + + + + | Date | Type | Department | Care Team | Description | +--------+ + + + + | 03/14/ | [facility] | [facility] | Mark Montana | Left hip pain | | 2018 | Encounter | [place] [address] | MD [address] | | | | | [address] | [address] | | | | | [place], [place] | [place] [address] | | | | | [address] | [phone] | | | | | [phone] | | | +--------+ + + + [...] | | | | | | | ([facility]) | | | | | | | MISC | | | | | | + + + +---------+ + + | Toone-3 Fatty | Take 1 tablet by | [...] | | | | | [place] [address] | | | | | | [phone] | | | | | | | | +--------+ + + + + | 03/29/ | Surgery | | Mark Montana | Posterior Total Hip | | 2019 | | | MD [place] [address] | Arthroplasty: | | | | | [address] [place] | [employer] | | | | | [place] [address] | | | | | | [phone] | | | | | | | | +--------+ + + + + | 04/11/ | Office | Orthopedic Surgery | Gus Orozco, | | | 2019 | Visit | | [place] [address] | | | | | | [place] | | | | | | [place] [address] | | | | | | [phone] | | | | | | | | +--------+ + + + + | 05/16/ | Office | Orthopedic Surgery | Mark Montana | | | 2018 | Visit | | MD [address] | | | | | | [place] | | | | | | [place] [address] | | | | | | [phone] | | | | | | | | +--------+ + + + + | 06/30/ | Office | Cardiology | Smitha Griffin DO | | | 2019 | Visit | | [address] | | | | | | [place] | | | | | | [address] | | | | | | | [...]
--- OUTSIDE RECORDS SUMMARY | ~2019-03-23 | XMS | Encounter Summary ---
Demographics + + + | Address | [address] | | | [place] [address] | + + + | Home Phone [...] | Author | [facility] | | | and Khurramana | + + + | Organization | [facility] [...] Team Providers + +------+ + | Care Armature Tester Name | Role | Phone | [...] | | | | | from | [address] | [address] | | | | | [place] at | [address] | [address] | | | | | [facility] | John, | [place], [place] | | | | | Procedures | [place] | [address] Phone: | | | | | NEW PATIENT | [address] | [phone] | | | | | | Phone: | Fax: | | | | | | [phone] | [phone] | | | | | | Fax: | | | | | | | [phone] | | + +--------+ + + + + Encounter Details +--------+---------+ + + + | Date | Type | Department | Care Team | Description | +--------+---------+ + + + | 09/30/ | Office | [facility] | Mark Montana | 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[place], [place]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 (Primary | | | | [address] | [place] [address] | Dx) | | | | [phone] | [phone] | | | | | | | [...] stent pull; Surgeon: Gregor Mccord MD; Location: [facility] RE UNIT PARTIAL HYSTERECTOMY 1972 [...] Daily., Disp: , Rfl: Multiple Vitamins-Minerals ([facility]) MISC, Take by mouth., Disp: , Rfl: [place]-3 Fatty Acids (PRO NUTRIENTS OMEGA 3 PO), [...] [place]oley | | | | | | [address] [place] [address] | | | | | | [place] [address] | | | | | | [phone] | | | | | | | | +--------+ + + + + | 03/29/ | Surgery | | Mark Montana | Posterior Total Hip | | 2018 | | | MD Paul Foley | Arthroplasty: | | | | | [address] | [employer] | | | | | [place] [address] | | | | | | [phone] | | | | | | | | +--------+ + + + + | 04/11/ | Office | Orthopedic Surgery | Gus Orozco, | | | 2018 | Visit | | [place] [address] | | | | | | [place] | | | | | | [place] [address] | | | | | | [phone] | | | | | | | | +--------+ + + + + | 05/16/ | Office | Orthopedic Surgery | Mark Montana | | | 2018 | Visit | | MD [address]aina [address] | | | | | | [place] | | | | | | [place] [address] | | | | | | [phone] | | | | | | | | +--------+ + + + + | 06/30/ | Office | Cardiology | Smitha Griffin DO | | | 2019 | Visit | | [address] | | | | | | [place] | | | | | | [address] | | | | | | | [...] Hip Left 2-3 Views | Routin | Post-traumatic | Expected: | | | e | osteoarthritis of | 03/14/2019, Expires: | | | | left hip | 03/14/2020 | + +--------+ + + documented as of this encounter Visit Diagnoses + + | Diagnosis | + + | 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
--- OUTSIDE RECORDS SUMMARY | ~2019-03-23 | XMS | Encounter Summary ---
Demographics + + + | Address | [address] | | | [place] [address] | + + + | Home Phone [...] | Author | [facility] | | | and Khurramana | + + + | Organization | [facility] | | [...] Providers + +------+ + | Care Senior Director Name | Role | Phone | [...] | | | | | from | [address] | [address] | | | | | [place] at | [address] | [address] | | | | | [facility] | John, | [place], [place] | | | | | Procedures | [place] | [address] Phone: | | | | | NEW PATIENT | [address] | [phone] | | | | | | Phone: | Fax: | | | | | | [phone] | [phone] | | | | | | Fax: | | | | | | | [phone] | | + +--------+ + + + + Encounter Details +--------+---------+ + + + | Date | Type | Department | Care Team | Description | +--------+---------+ + + + | 09/30/ | Office | [facility] | Mark Montana | 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[place], [place]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 (Primary | | | | [address] | [place] [address] | Dx) | | | | [phone] | [phone] | | | | | | | [...] Procedure: ERCP; Surgeon: Gregor Mccord MD; Location: [facility] PROC[facility]URE [facility] ERCP N/A 10/14/2016 Procedure: ERCP w/ stent pull; Surgeon: Gregor Mccord MD; Location: [facility] RE UNIT PARTIAL HYSTERECTOMY 1972 RECTOCELE REPAIR [...] Daily., Disp: , Rfl: Multiple Vitamins-Minerals ([facility]) MISC, Take by mouth., Disp: , Rfl: [place]-3 Fatty Acids (PRO NUTRIENTS OMEGA 3 PO), [...] | | | | | | [place] [address] | | | | | | [phone] | | | | | | | | +--------+ + + + + | 03/29/ | Surgery | | Mark Montana | Posterior Total Hip | | 2018 | | | MD Paul Foley | Arthroplasty: | | | | | [address] | [employer] | | | | | [place] [address] | | | | | | [phone] | | | | | | | | +--------+ + + + + | 04/11/ | Office | Orthopedic Surgery | Gus Orozco, | | | 2018 | Visit | | [place] [address] | | | | | | [place] | | | | | | [place] [address] | | | | | | [phone] | | | | | | | | +--------+ + + + + | 05/16/ | Office | Orthopedic Surgery | Mark Montana | | | 2018 | Visit | | MD [address]ain[address] | | | | | | [place] | | | | | | [place] [address] | | | | | | [phone] | | | | | | | | +--------+ + + + + | 06/30/ | Office | Cardiology | Smitha Griffin DO | | | 2019 | Visit | | [address] | | | | | | [place] | | | | | | [address] | | | | | | | [...]
--- OUTSIDE RECORDS SUMMARY | ~2019-03-23 | XMS | Encounter Summary ---
Demographics + + + | Address | [address] | | | [place] [address] | + + + | Home Phone [...] Team Providers + +------+ + | Care Zigzag Topstitcher Name | Role | Phone | + +------+ + PCP | Unavailable | + +------+ + Encounter Details +--------+ + + + + | Date | Type | Department | Care Team | Description | +--------+ + + + + | 03/20/ | Transcribed | [facility] | Dictation, Other | Transcribed | | 1996 | | [facility] [address] | | | | | | [address] | | | | | | Mailcode: [id number] [address] | | | | | | [address] | | | | | | [place], | | | | | | [place] [address] | | | | | | [phone] | | | +--------+ + + + [...] as of this encounter Progress Notes Interface, Polishing Pad Mounter In - 07/30/2006 1:06 AM PST [address] [address] or March 20, 1997 AKIRA LEOS MD [facility] [address] [place] [address] RE:Scarlet Murguia MR#:[id number] Leos: We [...] as manifested by pain at rest, director television stiffness for greater than an hour or [...] Internal Medicine TERRY/artemio cc: Samia Montano M.D. Heating Technician, Medicine Rheumatology and Arthritis documented in this encounter Plan of Treatment Not on filedocumented as of this encounter Visit Diagnoses Not on filedocumented in this encounter
--- OUTSIDE RECORDS SUMMARY | ~2019-03-23 | XMS | Encounter Summary ---
Demographics + + + | Address | [address] | | | [place] [address] | + + + | Home Phone [...] Providers + +------+ + | Care Plaster Mixer Name | Role | Phone | [...] [id number] | | | | | | [facility] | | | | | | and Healing, | | | | | | Building [address], 5th | | | | | | Floor [place], [place] | | | | | | [address] | | | | | | [phone] | | | +--------+ + + + [...] | | | | | | skin, [id number]. The | | | | | | [...] [facility] | Mail[address], [address] | [place] [address] | | | DERMATOPATHOLOGY | [address] | | | + + + + + documented in this encounter Visit Diagnoses + + | Diagnosis | + + | Other melanin hyperpigmentation | + + documented in this encounter
--- OUTSIDE RECORDS SUMMARY | ~2019-03-23 | XMS | Encounter Summary ---
Demographics + + + | Address | [address] | | | [place] [address] | + + + | Home Phone [...] Providers + +------+ + | Care Concrete Layer Name | Role | Phone | [...] Clinic Dermatology | | | | | [facility] | [address] [facility] | | | | | and Healing, | [place] | | | | | [facility] | [address] | | | | | Floor [place], [place] | | | | | | [address] | | | | | | [phone] | | | +--------+ + + + [...] Case: | | | | | | [id number] | | | | | | | [...] | | | | | determined by [facility] | | | | | | laboratories. [...] + + | [facility]A | [address], [address] | [place] [address] | | | DERMATOPATHOLOGY | [address] | | | + + + + + documented in this encounter Visit Diagnoses + + | Diagnosis | + + | Neoplasm of uncertain behavior of skin | + + documented in this encounter
[~2019-03-23 20:56] MED LIST changes: +ASPIRIN81 MG PO
[2019-03-23] MEDS ORDERED: COZAAR100 MG PO (21:18)
== END 2019-03-23 21:30 | disposition home or self-care (01) ==
LOC: ED 20:56
DX: I10 Essential (primary) hypertension (principal); E03.9 Hypothyroidism, unspecified; E11.40 Type 2 diabetes mellitus with diabetic neuropathy, unspecified; Z85.820 Personal history of malignant melanoma of skin; Z88.0 Allergy status to penicillin; Z88.1 Allergy status to other antibiotic agents; Z88.2 Allergy status to sulfonamides; Z79.82 Long term (current) use of aspirin; Z79.899 Other long term (current) drug therapy
CPT/HCPCS: 99281

== ENCOUNTER 2019-04-01 23:24 | Emergency (ER) | payer MEDICARE, MEDICAID ==
[~2019-04-01] VITALS: Ht 167.6 cm; Wt 74.8 kg
--- OUTSIDE RECORDS SUMMARY | ~2019-04-01 | XMS | Encounter Summary ---
Demographics + + + | Address | [address] | | | [place] [address] | + + + | Home Phone | | + + + | Preferred Language | Unknown | + + + | Marital Status | | + + + | Mormonism Affiliation | Unknown | + + + | Race | White | + + + | Ethnic Group | Not or | + + + Author + + + | Author | [facility] | + + + | Organization | [facility] | + + + | Address [...] Team Providers + +------+ + | Care Chemistry Intern Name | Role | Phone | + [...] [address] | | | | | | [place], [place] | | | | | | [address] | | | +--------+ + + + [...]
--- OUTSIDE RECORDS SUMMARY | ~2019-04-01 | XMS | Clinical Summary ---
Demographics + + + | Address | [address] | | | [place] [address] | + + + | Home Phone | | + + + | Preferred Language | Unknown | + + + | Marital Status | | + + + | Anglican Affiliation | Unknown | + + + [...] Team Providers + +------+ + | Care Castables Worker Name | Role | Phone | + +------+ + PCP | Unavailable | + +------+ + Source Comments FIORELLA is fully live on both [facility] Ambulatory and [facility] InPatient.[facility] Allergies Not on File Medications [...] | OLOGY | | | | Case: [id number] | | | | | | | [...] [facility] | Mailcode [address], [address] | [place] [address] | | | DERMATOPATHOLOGY | [address] [...] | MODA | xxxxxxxxx | Effect | [phone] | [address] | PPO | | | MEDICA | | nestor | 4 | [address] | | | | RE PPO | | for | | [place], | | | | | | all | | [place] [address] | | | | | | dates [...] | 1936 | [phone] | [place] [address] | | | aissatou | | | 3 (Home) | | + +--------+ +--------+ + +
--- OUTSIDE RECORDS SUMMARY | ~2019-04-01 | XMS | Encounter Summary ---
Demographics + + + | Address | [address] | | | [place] [address] | + + + | Home Phone [...] + | Author | [facility] | | | and Khurramana | + + + | Organization | [facility] [...] Team Providers + +------+ + | Care Mushroom Packer Name | Role | Phone | + [...] + + | 03/29/ | Hospital | 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 Service: Orthopedic Surgery Discharge Summary Date of [...] Procedure: ERCP; Surgeon: Gregor Mccord MD; Location: [facility] MEDICAL PROCEDURE UNIT ERCP N/A 10/14/2016 Procedure: ERCP w/ stent pull; Surgeon: Gregor Mccord MD; Location: [facility] MEDICAL PROCEDU RE UNIT HARDWARE REMOVAL Left 03/29/2019 Procedure: REMOVE HARDWARE LOWER EXTREMITY-HIP; Surgeon: Mark [place] MD; [place] [facility] [place] PARTIAL HYSTERECTOMY 1971 RECTOCELE REPAIR 1991 TAILBONE 1973 broken, partial removal TONSILLECTOMY 1938 TOTAL HIP ARTHROPLASTY Left 03/29/2019 Procedure: Posterior Total Hip Arthroplasty; Surgeon: Mark [place] MD; Location: [facility] MAIN OR Allergies Allergen Reactions Erythromycin [...] Code [facility]: [facility] [address] In 2 weeks Discharge Medications Changed Medications [...] Gus Orozco PA-C 03/31/2019 documented in this enco unter Discharge Instructions Instructions Gus Orozco PA-C - [...] | | | | | | | ([facility]) | | | | | | | MISC | | | | | | + + + +---------+ + + | Drury-3 Fatty | Take 1 tablet by | [...] Progress Notes Gus Orozco PA-C - 03/30/2019 0932 PDTFormatting of this note might be different from t he original. [facility] Progress Note Primary Care Physician: Susan Leos TODAY S DATE: 03/30/2019 PATIENT NAME: Scarlet Murguia : 1935 SubjectiveThe patient chart and medications were reviewed in detail and the patient was see n and examined. The patient pain is well controlled at this time. She has been ambulating w ith walker and working with physical therapy. Currently she has not been unable to void, sh e has been catheterized 2 times. Objective Vital [...] 03/30/2019 9:32 Viv Horowitz RN - 03[facility]29/2019 [facility] Pop RN documented in this encoun ter Plan of Treatment +--------+---------+ + + + | Date | Type | Specialty | Care Team | Description | +--------+---------+ + + + | 04/11/ | Office | Orthopedic Surgery | Gus Orozco, | | | 2018 | Visit | | [address] | | | | | | [place], | | | | | | [place] [address] | | | | | | [phone] | | | | | | | | +--------+---------+ + + + | 05/16/ | Office | Orthopedic Surgery | Mark Montana | | | 2018 | Visit | | MD [address] | | | | | | [place] | | | | | | [place] [address] | | | | | | [phone] | | | | | | | | +--------+---------+ + + + | 06/30/ | Office | Cardiology | Smitha Griffin DO | | | 2019 | Visit | | [address] | | | | | | [place] | | | | | | [address] | | | | | | | [...] this encounter Results POC Glucose (03/31/2019 11:58 PDT) + + + + + + | Component | Value | Ref Range | Performed | Pathologist | | | | | At | Signature | + + + + + + | Glucose, | 62 (L)Comment: Testing | 65 - 99 mg/dL | [facility] | | | POC | performed at [facility];[address] | | LABORATORY | | | | [address];[place] | | | | | | [address] | | | | + + + + + + + + | Specimen | + + | | + + + + + + + | Performing | Address | City/State/Zipcode | Phone Number | | Organization | | | | + + + + + | [facility] | [address] | [place] [address] | [phone] | + + + + + POC Glucose (03/31/2019 7:23 PDT) + + + + + + | Component | Value | Ref Range | Performed | Pathologist | | | | | At | Signature | + + + + + + | Glucose, | 122 (H)Comment: Testing | 65 - 99 mg/dL | [facility] | | | POC | performed at [facility];[address] | | LABORATORY | | | | [address];[place] | | | | | | [address] | | | | + + + + + + + + | Specimen | + + | | + + + + + + + | Performing | Address | City/State/Zipcode | Phone Number | | Organization | | | | + + + + + | [facility] | [address] | [place] [address] | [phone] | + + + + + POC Glucose (03/30/2019 20:57 PDT) + + + + + + | Component | Value | Ref Range | Performed | Pathologist | | | | | At | Signature | + + + + + + | Glucose, | 98Comment: Testing | 65 - 99 mg/dL | [facility] | | | POC | performed at [facility];[address] | | LABORATORY | | | | [address];[place], [place] | | | | | | [address] | | | | + + + + + + + + | Specimen | + + | | + + + + + + + | Performing | Address | City/State/Zipcode | Phone Number | | Organization | | | | + + + + + | [facility] | [address] | [place] [address] | [phone] | + + + + + Hemoglobin [...] [facility] | | | | performed at [facility];[address] | | LABORATORY | | | | [address];[place], [place] | | | | | | [address] | | | | + + + + + + + + | Specimen | + + | Blood | + + + + + + + | Performing | Address | City/State/Zipcode | Phone Number | | Organization | | | | + + + + + | [facility] | [address] | [place] [address] | [phone] | + + + + + POC Glucose (03/30/2019 3:23 PDT) + + + + + + | Component | Value | Ref Range | Performed | Pathologist | | | | | At | Signature | + + + + + + | Glucose, | 147 (H)Comment: Testing | 65 - 99 mg/dL | [facility] | | | POC | performed at [facility];[address] | | LABORATORY | | | | [address];[place], [place] | | | | | | [address] | | | | + + + + + + + + | Specimen | + + | | + + + + + + + | Performing | Address | City/State/Zipcode | Phone Number | | Organization | | | | + + + + + | [facility] | [address] [facility] | [place] [address] | [phone] | + + + + + POC Glucose (03/29/2019 20:59 PDT) + + + + + + | Component | Value | Ref Range | Performed | Pathologist | | | | | At | Signature | + + + + + + | Glucose, | 172 (H)Comment: Testing | 65 - 99 mg/dL | [facility] | | | POC | performed at [facility];[address] | | LABORATORY | | | | [address];[place] | | | | | | [address] | | | | + + + + + + + + | Specimen | + + | | + + + + + + + | Performing | Address | City/State/Zipcode | Phone Number | | Organization | | | | + + + + + | [facility] | [address] | [place] [address] | [phone] | + + + + + XR [...] +---------+ + + POC Glucose (03/29/2019 9:20 PDT) + + + + + + | Component | Value | Ref Range | Performed | Pathologist | | | | | At | Signature | + + + + + + | Glucose, | 99Comment: Testing | 65 - 99 mg/dL | [facility] | | | POC | performed at [facility];[address] | | LABORATORY | | | | [address];[place] | | | | | | [address] | | | | + + + + + + + + | Specimen | + + | | + + + + + + + | Performing | Address | City/State/Zipcode | Phone Number | | Organization | | | | + + + + + | [facility] | [address] | [place] [address] | [phone] | + + + + + Type and Screen (03/29/2019 7:59 PDT) + + + + + + [...] + + + | [facility] | [id number] | | [facility] | | | | | | LABORATORY | | + + + + + + | [facility] | Testing performed at | | [facility] | | | | [facility];[address] | | LABORATORY | | | | [address];[place] [address] | | | | + + + + + + + + | Specimen | + + | Blood | + + + + + + + | Performing | Address | City/State/Zipcode | Phone Number | | Organization | | | | + + + + + | [facility] | [address] | [place] [address] | [phone] | + + + + + POC Glucose (03/29/2019 6:42 PDT) + + + + + + | Component | Value | Ref Range | Performed | Pathologist | | | | | At | Signature | + + + + + + | Glucose, | 96Comment: Testing | 65 - 99 mg/dL | [facility] | | | POC | performed at [facility];[address] | | LABORATORY | | | | [address];[place], [place] | | | | | | [address] | | | | + + + + + + + + | Specimen | + + | | + + + + + + + | Performing | Address | City/State/Zipcode | Phone Number | | Organization | | | | + + + + + | [facility] | [address] | [place] [address] | [phone] | + + + + + documented [...] | acetaminophen (TYLENOL) tablet | Given | 10/15/20 | 1,000 mg | | | | 1,000 mg 1,000 mg, Oral, ONCE, | | 19 7:01 | | | | | Thu03/29/19 at 0630, For 1 dose, | | PDT | | | | | Give [...] mg, Oral, EVERY 8 | | 19 13:40 | | | | | HOURS (3 times per day), First | | PDT | | | | | dose [...] 6:26 | | | | | | PDT | | | | +-------+ + +---+---+ | Given | 03/30/20 | 1,000 mg | | | | | 19 21:54 | | | | | | PDT | | | | +-------+ + +---+---+ +---+---+ | | | +---+---+ + +-------+ +--------+---+---+ | aspirin EC tablet 325 mg 325 | Given | 03/31/20 | 325 mg | | | | mg, Oral, DAILY, First dose on | | 19 9:24 | | | | | 03/30/19 at 0700, Do not cut | | PDT | | | | | or [...] 6:53 | | | | | | PDT | | | | +-------+ +--------+---+---+ +---+---+ | | | +---+---+ + +-------+ +-------+---+---+ | atenolol (TENORMIN) tablet 25 | Given | 03/31/20 | 25 mg | | | | mg 25 mg, Oral, DAILY, First | | 19 9:24 | | | | | dose on Thu03/30/19 at 0900, | | PDT | | | | | Post-op/Phase II | | | | | | + +-------+ +-------+---+---+ +-------+ +-------+---+---+ | Given | 03/30/20 | 25 mg | | | | | 19 8:48 | | | | | | PDT | | | | +-------+ +-------+---+---+ +---+---+ | | | +---+---+ + +---------+ +-----+-------+---+ | ceFAZolin in dextrose (ANCEF) | New Bag | 03/29/20 | 2 g | 200 | | | IVPB 2 g 2 g, Intravenous, | | 19 23:41 | | mL/hr | | | Administer over 30 Minutes, EVERY | | PDT | | | | | 8 HOURS INTERVAL, First dose on | | | | | | | Thu03/29/19 at 1600, For 2 | | | [...] | 200 | | | | 19 16:11 | | mL/hr | | | | PDT | | | | +---------+ +-----+-------+---+ +---+---+ | | | +---+---+ + +-------+ +-------+---+---+ | cetirizine (zyrTEC) tablet 10 | Given | 03/31/20 | 10 mg | | | | mg 10 mg, Oral, DAILY, First | | 19 9:25 | | | | | dose on Thu03/30/19 at 0900, | | PDT | | | | | Post-op/Phase II | | | | | | + +-------+ +-------+---+---+ +-------+ +-------+---+---+ | Given | 03/30/20 | 10 mg | | | | | 19 8:48 | | | | | | PDT | | | | +-------+ +-------+---+---+ + +---+ | | | + +---+ | diphenhydrAMINE (BENADRYL) 12.5 | | | mg/5 mL liquid 25 mg 25 mg, | | | Oral, EVERY 4 HOURS PRN, Itching, | | | Starting Thu03/29/19 at 1417, | | | Oral route [...] mg, Oral, 3 TIMES | | 19 13:40 | | | | | DAILY, First dose on Thu03/29/19 | | PDT | | | | | at 1445, Post-op/Phase II | | | | | | + +-------+ +--------+---+---+ +-------+ +--------+---+---+ | Given | 03/31/20 | 300 mg | | | | | 19 9:25 | | | | | | PDT | | | | +-------+ +--------+---+---+ | Given | 03/30/20 | 300 mg | | | | | 19 21:54 | | | | | | PDT | | | | +-------+ +--------+---+---+ +---+---+ | | | +---+---+ + +-------+ +---------+---+---+ | levothyroxine (SYNTHROID) | Given | 03/31/20 | 100 mcg | | | | tablet 100 mcg 100 mcg, Oral, | | 19 6:27 | | | | | DAILY BEFORE BREAKFAST, First | | PDT | | | | | dose on Thu03/30/19 at 0730, | | | | | | | Give before breakfast., | | | | | | | Post-op/Phase II | | | | | | + +-------+ +---------+---+---+ +-------+ +---------+---+---+ | Given | 03/30/20 | 100 mcg | | | | | 19 6:54 | | | | | | PDT | | | | +-------+ +---------+---+---+ +---+---+ | | | +---+---+ + +-------+ +-------+---+---+ | losartan (COZAAR) tablet 50 mg | Given | 03/31/20 | 50 mg | | | | 50 mg, Oral, DAILY, First dose | | 19 9:25 | | | | | on 03/29/19 at 1230, | | PDT | | | | | Post-op/Phase II | | | | | | + +-------+ +-------+---+---+ +-------+ +-------+---+---+ | Given | 03/30/20 | 50 mg | | | | | 19 8:48 | | | | | | PDT | | | | +-------+ +-------+---+---+ | Given | 03/29/20 | 50 mg | | | | | 19 12:24 | | | | | | PDT | | | | +-------+ +-------+---+---+ +---+---+ | | | +---+---+ + +-------+ +------+---+---+ | ondansetron (ZOFRAN) injection | Given | 03/30/20 | 4 mg | | | | 4 mg 4 mg, Intravenous, EVERY 6 | | 19 13:20 | | | | | HOURS PRN, Nausea, Vomiting, | | PDT | | | | | Starting [...] BEFORE BREAKFAST, First dose on | | PDT | | | | | 03/29/19 [...] 6:54 | | | | | | PDT | | | | +-------+ +-------+---+---+ | Given | 03/29/20 | 40 mg | | | | | 19 15:26 | | | | | | PDT | | | | +-------+ +-------+---+---+ +---+---+ | | | +---+---+ + +-------+ +---+---+---+ | povidone-iodine 5 % external | Given | 03/29/20 | | | | | solution Other, PRN, Other, | | 19 7:21 | | | | | pre-op, Starting 03/29/19 at | | PDT | | | | | 0721, [...] | | | | | Pain, Starting Thu03/29/19 at | | PDT | | | | | 0613, Pre-op | | | | | | + +-------+ +-------+---+---+ +---+---+ | | | +---+---+ + +-------+ +-------+---+---+ | traMADol (ULTRAM) tablet 50 mg | Given | 03/31/20 | 50 mg | | | | 50 mg, Oral, EVERY 6 HOURS PRN, | | 19 6:26 | | | | | Pain, Mild Pain, Starting Thu | | PDT | | | | | 03/29/19 at 1417, Post-op/Phase | | | | | | | II | | | | | | + +-------+ +-------+---+---+ +-------+ +-------+---+---+ | Given | 03/30/20 | 50 mg | | | | | 19 19:27 | | | | | | PDT | | | | +-------+ +-------+---+---+ | Given | 03/30/20 | 50 mg | | | | | 19 8:57 | | | | | | PDT | | | | +-------+ +-------+---+---+ +---+---+ | | | +---+---+ documented in this encounter
--- OUTSIDE RECORDS SUMMARY | ~2019-04-01 | XMS | Encounter Summary ---
Demographics + + + | Address | [address] | | | [place] [address] | + + + | Home Phone [...] [facility] | | | and Khurramana | + + + | Organization | [facility] | | | and [place] [...] Team Providers + +------+ + | Care Yard Truck Driver Name | Role | Phone | + +------+ + | Susan Leos | PCP | | | PA-C | | | + +------+ + Encounter Details +--------+ + + + + | Date | Type | Department | Care Team | Description | +--------+ + + + + | 03/14/ | [facility] | [facility] | Mark [place] | Left hip pain | | 2018 | Encounter | [address] | MD [address] | | | | | [address] | [place] | | | | | [place], [place] | [place] [address] | | | | | [address] | [phone] | | | | | [phone] | | | +--------+ + + + [...] | | | | | | | ([facility]) | | | | | | | MISC | | | | | | + + + +---------+ + + | Empire-3 Fatty | Take 1 tablet by | [...] | | | | | | [place] [address] | | | | | | [phone] | | | | | | | | +--------+---------+ + + + | 05/16/ | Office | Orthopedic Surgery | Mark [place] | | | 2018 | Visit | | MD Paul Foley | | | | | | [address] | | | | | | [place] [address] | | | | | | [phone] | | | | | | | | +--------+---------+ + + + | 06/30/ | Office | Cardiology | Smitha Griffin DO | | | 2019 | Visit | | [address] | | | | | | [place] | | | | | | [address] | | | | | | | [...]
--- OUTSIDE RECORDS SUMMARY | ~2019-04-01 | XMS | Encounter Summary ---
Demographics + + + | Address | [address] | | | [place] [address] | + + + | Home Phone | | + + + | Preferred Language | Unknown | + + + | Marital Status | | + + + | Roman Catholic Affiliation | Unknown | + + + | Race | White | + + + | Ethnic Group | Not or | + + + Author + + + | Author | [facility] | + + + | Organization | [facility] | + + + | [...] Team Providers + +------+ + | Care Change Release Manager Name | Role | Phone | + +------+ + PCP | Unavailable | + +------+ + Encounter Details +--------+ + + + + | Date | Type | Department | Care Team | Description | +--------+ + + + + | 03/20/ | Transcribed | Allergy Clinic at | Dictation, Other | Transcribed | | 1996 | | [facility] [address] | | | | | | [address] | | | | | | Mailcode: [address] | | | | | | [address] | | | | | | [place], | | | | | | [place] [address] | | | | | | [phone] | | | +--------+ + + + [...] as of this encounter Progress Notes Interface, Delivery Helper In - 07/30/2006 1:06 AM PST [address] [address] or March 20, 1997 AKIRA LEOS MD [facility] [address] [place] [address] RE:Scarlet Murguia MR#:[id number] Leos: We saw Mrs. Scarlet Murguia for a rheumatology consultation at [facility] on March 20, 1997. 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 Sincerely, Damaso Franks M.D. Resident, Internal Medicine TERRY/artemio cc: Samia Montano M.D. Head Esthetician, Medicine Rheumatology and Arthritis documented in this encounter Plan of Treatment Not on filedocumented as of this encounter Visit Diagnoses Not on filedocumented in this encounter
--- OUTSIDE RECORDS SUMMARY | ~2019-04-01 | XMS | Encounter Summary ---
Demographics + + + | Address | [address] | | | [place] [address] | + + + | Home Phone | | + + + | Preferred Language | Unknown | + + + | Marital Status | | + + + | Rastafarian Affiliation | Unknown | + + + | Race | White | + + + | Ethnic Group | Not or | + + + Author + + + | Author | [facility] | + + + | Organization | [facility] | + + + | [...] Team Providers + +------+ + | Care Transitional Nurse Name | Role | Phone | + [...] [id number] | | | | | | [facility] | | | | | | and Healing, | | | | | | Building [address]th | | | | | | Floor [place], [place] | | | | | | [address] | | | | | | [phone] | | | +--------+ + + + [...] | | | | | | skin, [id number]. The | | | | | | [...] [facility] | Mail[address], [address] | [place] [address] | | | DERMATOPATHOLOGY | [address] | | | + + + + + documented in this encounter Visit Diagnoses + + | Diagnosis | + + | Other melanin hyperpigmentation | + + documented in this encounter
--- OUTSIDE RECORDS SUMMARY | ~2019-04-01 | XMS | Encounter Summary ---
Demographics + + + | Address | [address] | | | [place] [address] | + + + | Home Phone [...] | Author | [facility] | | | and Khurramana | + + + | Organization | [facility] | | [...] Providers + +------+ + | Care Director Ship Name | Role | Phone | + [...] + + | 03/29/ | Anesthesia | [facility] | Michela Eli | | | 2019 | Event | [facility] | MD Jena [address] | | | | | [address]PER[address] | [place], [place] | | | | | [facility] | [address] | | | | | [place], [place] | | | | | | [address] | | | | | | [phone] | | | +--------+ + + + [...] +----+---+ + + | | 0 | [place] | | | | 8 | 43-degrees [...] 03/30/19 0431 by | | eral | [id number] catheter system; | Paula Young RN | [...] | | | | | | [place] [address] | | | | | | [phone] | | | | | | | | +--------+---------+ + + + | 05/16/ | Office | Orthopedic Surgery | Mark [place] | | | 2018 | Visit | | MD Paul Foley | | | | | | [address] | | | | | | [place] [address] | | | | | | [phone] | | | | | | | | +--------+---------+ + + + | 06/30/ | Office | Cardiology | Smitha Griffin DO | | | 2019 | Visit | | [address] | | | | | | [place], [place] | | | | | | [address] | | | | | | | | +--------+---------+ + + + documented as of this encounter Results Neuraxial (03/29/2019 7:52 PDT) + + + [...] | infusion at 50 mL/hr, | | PDT | | | | | Intravenous, [...] | | INTRASPINAL, Starting Tue | | PDT | | [...] Administer over 30 Minutes, Prior | | PDT | | | | | to [...] | Starting 03/29/19 at 0806, | | PDT | | | | | Anesthesia Intra-op | | | | | | + +-------+ +-------+---+---+ +-------+ +------+---+---+ | Given | 03/29/20 | 5 mg | | | | | 19 8:22 | | | | | | PDT | | | | +-------+ +------+---+---+ | Given | 03/29/20 | 5 mg | | | | | 19 8:13 | | | | | | PDT | | | | +-------+ +------+---+---+ +---+---+ | | | +---+---+ + +-------+ +------+---+---+ | ondansetron (ZOFRAN) injection | Given | 03/29/20 | 4 mg | | | | Intravenous, PRN, Starting Tue | | 19 7:54 | | | | | 03/29/19 at 0754, Anesthesia | | PDT | | | | | Intra-op | | | | | | + +-------+ +------+---+---+ +---+---+ | | | +---+---+ + +-------+ +-------+---+---+ | propofol (DIPRIVAN) injection | Given | 03/29/20 | 20 mg | | | | Intravenous, PRN, Starting Tue | | 19 7:42 | | | | | 03/29/19 at 0742, Anesthesia | | PDT | | | | | Intra-op | | | | | | + +-------+ +-------+---+---+ +---+---+ | | | +---+---+ + +---------+ + +-------+---+ | propofol infusion (DIPRIVAN) 10 | New Bag | 03/29/20 | 60 | 26.8 | | | mg/mL infusion Intravenous, | | 19 7:43 | mcg/kg/m | mL/hr | | | CONTINUOUS PRN, Starting Tue | | PDT | in | | | | [...] 50 mL IVPB 1,000 mg, | | PDT | | | | | Intravenous, [...] 50 mL IVPB 1,000 mg, | | PDT | | | | | Intravenous, at 360 mL/hr, ONCE, | | | | | | | 03/29/19 at 0630, For 1 dose, | | | | | | | Pre-op | | | | | | + +---------+ + +---+---+ +---+---+ | | | +---+---+ documented in this encounter"
--- OUTSIDE RECORDS SUMMARY | ~2019-04-01 | XMS | Encounter Summary ---
Demographics + + + | Address | [address] | | | [place] [address] | + + + | Home Phone | | + + + | Preferred Language | Unknown | + + + | Marital Status | | + + + | Scientologist Affiliation | Unknown | + + + | Race | Unknown | + + + | Ethnic Group | Unknown | + + + Author + + + | Author | [facility] (Historical as of | | | 01-29-19) | + + + | Organization | [facility] (Historical as of | | | 01-29-19) | + + + | Address | Unknown | + + + | Phone | Unavailable | + + + Support + + + + + | Name | Relationship | Address | Phone | + + + + + | Alejo Murguia | DIRK | [address] | | | | | [place] [address] | | + + + + + Care Team Providers + +------+ + | Care Cold Mill Operator Name | Role | Phone | [...] | 2019 | on Only | Cardiology [place] | [address] | | | | | [address] | [place], [place] | | | | | [place], [place] | [address] | | | | | [address] | | | | | | [phone] | | | +--------+ + + + [...]
--- OUTSIDE RECORDS SUMMARY | ~2019-04-01 | XMS | Encounter Summary ---
Demographics + + + | Address | [address] | | | [place] [address] | + + + | Home Phone | | + + + | Preferred Language | Unknown | + + + | Marital Status | | + + + | Muslim Affiliation | 1077 | + + + | Race | Unknown | + + + | Ethnic Group | Unknown | + + + Author + + + | Author | [facility] | | | and Khurramana | + + + | Organization | [facility] | [...] Team Providers + +------+ + | Care Leach Tank Tender Name | Role | Phone | [...] + + | 03/29/ | Anesthesia | [facility] | Michela Eli | | | 2019 | Event | [facility] | MD Jena [address] | | | | | OPERATING RO[address] | [place], [place] | | | | | [facility] | [address] | | | | | [place], [place] | | | | | | [address] | | | | | | [phone] | | | +--------+ + + + [...] +----+---+ + + | | 0 | [place] | | | | 8 | 43-degrees [...] 03/30/19 0431 by | | eral | [id number] catheter system; | Paula Young RN | [...] | | | | | | [place] [address] | | | | | | [phone] | | | | | | | | +--------+---------+ + + + | 05/16/ | Office | Orthopedic Surgery | Mark Montana | | | 2018 | Visit | | MD Paul Foley | | | | | | [place] | | | | | | [place] [address] | | | | | | [phone] | | | | | | | | +--------+---------+ + + + | 06/30/ | Office | Cardiology | Smitha Griffin DO | | | 2019 | Visit | | [address] | | | | | | [place], [place] | | | | | | [address] | | | | | | | [...]
--- OUTSIDE RECORDS SUMMARY | ~2019-04-01 | XMS | Encounter Summary ---
Demographics + + + | Address | [address] | | | [place] [address] | + + + | Home Phone | | + + + | Preferred Language | Unknown | + + + | Marital Status | | + + + | Jehovah'S Witness Affiliation | Unknown | + + + | Race | White | + + + | Ethnic Group | Not or | + + + Author + + + | Author | [facility] | + + + | Organization | [facility] | + + + | Address | Unknown | + + + | Phone | Unavailable | + + + Support + + + + + | Name | Relationship | Address | Phone | + + + + + | Chrissie Leos | DIRK | [place] | | + + + + + Care Team Providers + +------+ + | Care Presiding Steward Name | Role | Phone | + +------+ + PCP | Unavailable | + +------+ + Encounter Details +--------+ + + + + | Date | Type | Department | Care Team | Description | +--------+ + + + + | 03/20/ | Transcribed | Allergy Clinic at | Dictation, Other | Transcribed | | 1996 | | [facility] [address] | | | | | | [address] | | | | | | Mailcode: [id number] | | | | | | [address] | | | | | | [place], | | | | | | [place] [address] | | | | | | [phone] | | | +--------+ + + + [...] as of this encounter Progress Notes Interface, Apprentice In - 07/30/2006 1:06 AM PST [address] [address] or March 20, 1997 AKIRA LEOS MD [facility] [address] [place] [address] RE:Scarlet Murguia MR#:[id number] Leos: We saw Mrs. Scarlet Murguia for a rheumatology consultation at [facility] on March 20, 1997. 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. Sincerely, Damaso Franks M.D. Resident, Internal Medicine TERRY/artemio cc: Samia Montano M.D. Arborer, Medicine Rheumatology and Arthritis documented in this encounter Plan of Treatment Not on filedocumented as of this encounter Visit Diagnoses Not on filedocumented in this encounter
--- OUTSIDE RECORDS SUMMARY | ~2019-04-01 | XMS | Encounter Summary ---
Demographics + + + | Address | [address] | | | [place] [address] | + + + | Home Phone [...] | Author | [facility] | | | and Khurramana | + + + | Organization | 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 [facility] [address] In 2 weeks Discharge Medications Changed Medications [...] | | | | | | | ([facility]) | | | | | | | MISC | | | | | | + + + +---------+ + + | [place]-3 Fatty | Take 1 tablet by | [...] might be different from t he original. [facility] Progress Note Primary Care Physician: Susan [...] Horowitz RN - 03/29/[address] [facility] Viv Pop RN documented in this encoun [...] [place], | | | | | | [place] [address] | | | | | | [phone] | | | | | | | | +--------+---------+ + + + | 05/16/ | Office | Orthopedic Surgery | Mark Montana | | | 2018 | Visit | | MD Alaina [address] | | | | | | [place] | | | | | | [place] [address] | | | | | | [phone] | | | | | | | | +--------+---------+ + + + | 06/30/ | Office | Cardiology | Smitha Griffin DO | | | 2019 | Visit | | [address] | | | | | | [place] | | | | | | [address] | | | | | | | [...] | | POC | performed at [facility];[address] | | LABORATORY | | | | [address];[place] | | | | | | [address] | | | | + + + + + + + + | Specimen | + + | | + + + + + + + | Performing | Address | City/State/Zipcode | Phone Number | | Organization | | | | + + + + + | [facility] | [address] | [place] [address] | [phone] | + + + + + POC [...] | | POC | performed at [facility];[address] | | LABORATORY | | | | [address];[place] | | | | | | [address] | | | | + + + + + + + + | Specimen | + + | | + + + + + + + | Performing | Address | City/State/Zipcode | Phone Number | | Organization | | | | + + + + + | [facility] | [address] | [place] [address] | [phone] | + + + + + POC Glucose (03/30/2019 20:57 PDT) + + + + + + | Component | Value | Ref Range | Performed | Pathologist | | | | | At | Signature | + + + + + + | Glucose, | 98Comment: Testing | 65 - 99 mg/dL | [facility] | | | POC | performed at [facility];[address] | | LABORATORY | | | | [address];[place], [place] | | | | | | [address] | | | | + + + + + + + + | Specimen | + + | | + + + + + + + | Performing | Address | City/State/Zipcode | Phone Number | | Organization | | | | + + + + + | [facility] | [address] | [place] [address] | [phone] | + + + + + Hemoglobin [...] | | | | performed at [facility];[address] | | LABORATORY | | | | [address];[place], [place] | | | | | | [address] | | | | + + + + + + + + | Specimen | + + | Blood | + + + + + + + | Performing | Address | City/State/Zipcode | Phone Number | | Organization | | | | + + + + + | [facility] | [address] | [place] [address] | [phone] | + + + + + POC [...] | | POC | performed at [facility];[address] | | LABORATORY | | | | [address];[place], [place] | | | | | | [address] | | | | + + + + + + + + | Specimen | + + | | + + + + + + + | Performing | Address | City/State/Zipcode | Phone Number | | Organization | | | | + + + + + | [facility] | [address] | [place] [address] | [phone] | + + + + + POC Glucose (03/29/2019 20:59 PDT) + + + + + + | Component | Value | Ref Range | Performed | Pathologist | | | | | At | Signature | + + + + + + | Glucose, | 172 (H)Comment: Testing | 65 - 99 mg/dL | [facility] | | | POC | performed at [facility];[address] | | LABORATORY | | | | [address];[place] | | | | | | [address] | | | | + + + + + + + + | Specimen | + + | | + + + + + + + | Performing | Address | City/State/Zipcode | Phone Number | | Organization | | | | + + + + + | [facility] | [address] | [place] [address] | [phone] | + + + + + XR [...] | 65 - 99 mg/dL | [facility] | | | POC | performed at [facility];[address] | | LABORATORY | | | | [address];[place] | | | | | | [address] | | | | + + + + + + + + | Specimen | + + | | + + + + + + + | Performing | Address | City/State/Zipcode | Phone Number | | Organization | | | | + + + + + | [facility] | [address] | [place] [address] | [phone] | + + + + + Type [...] + + + | BB [facility] | [id number] | | [facility] | | | | | | LABORATORY | | + + + + + + | BB BAND | Testing performed at | | [facility] | | | | [facility];[address] | | LABORATORY | | | | [address];[place] [address] | | | | + + + + + + + + | Specimen | + + | Blood | + + + + + + + | Performing | Address | City/State/Zipcode | Phone Number | | Organization | | | | + + + + + | [facility] | [address] | [place] [address] | [phone] | + + + + + POC Glucose (03/29/2019 6:42 PDT) + + + + + + | Component | Value | Ref Range | Performed | Pathologist | | | | | At | Signature | + + + + + + | Glucose, | 96Comment: Testing | 65 - 99 mg/dL | [facility] | | | POC | performed at [facility];[address] | | LABORATORY | | | | [address];[place], [place] | | | | | | [address] | | | | + + + + + + + + | Specimen | + + | | + + + + + + + | Performing | Address | City/State/Zipcode | Phone Number | | Organization | | | | + + + + + | [facility] | [address] | [place] [address] | [phone] | + + + + + documented [...]
--- OUTSIDE RECORDS SUMMARY | ~2019-04-01 | XMS | Encounter Summary ---
Demographics + + + | Address | [address] | | | [place] [address] | + + + | Home Phone [...] + + | Author | [facility] | | | and Khurramana | + + + | Organization | [facility] | | | and [place] [...] Team Providers + +------+ + | Care Financial Accounting Analyst Name | Role | Phone | [...] Services | Therapy | | Gus | [facility] | | | Required | | Post-traumat | PA-C [address] | PHYSICAL | | | | | ic | [address] | THERAPY [address] | | | | | osteoarthrit | [place] [place] | [address] | | | | | is of left | [place] | [place] | | | | | hip | [address] | [address] | | | | | | Phone: | Phone: | | | | | | [phone] | [phone] | | | | | | Fax: | Fax: | | | | | | [phone] | [phone] | + + + + + + [...] | | | | | from | [address] | [address] | | | | | [place] at | [address] | [address] | | | | | [facility] | [place], | [place], [place] | | | | | Procedures | [place] | [address] Phone: | | | | | NEW PATIENT | [address] | [phone] | | | | | | Phone: | Fax: | | | | | | [phone] | [phone] | | | | | | Fax: | | | | | | | [phone] | | + +--------+ + + + + Encounter Details +--------+---------+ + + + | Date | Type | Department | Care Team | Description | +--------+---------+ + + + | 03/21/ | Office | [facility] | Gus Orozco, | 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[address] [address]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[address]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[place], [place] | [place], | left hip (Primary | | | | [address] | [place] [address] | Dx) | | | | [phone] | [phone] | | | | | | | [...] Procedure: ERCP; Surgeon: Gregor Mccord MD; Location: [facility] MEDICAL PROCEDURE UNIT ERCP N/A 10/14/2016 Procedure: ERCP w/ stent pull; Surgeon: Gregor Mccord MD; Location: [facility] MEDICAL PROCEDU RE UNIT PARTIAL [...] Maternal Uncle Social History Occupational History 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 Tobacco Use Smoking status: Never [...] MISC, Take by mouth., Disp: , Rfl: [place]-3 Fatty Acids (PRO NUTRIENTS OMEGA 3 PO), [...] 12 months?:yes Under the care of a side gluer?: no Diabetes Optimization?:well controlled diet No results found for: LABGLYC History of MRSA/MSSA infection?:no Metal sensitivity or allergy?:no Intolerance to certain specific opiate?:no DVT/PE Risk Stratification Personal history of DVT/PE?:no Cancer treatment in the last 5 years?:no Hormone replacement therapy?:no Tolerate aspirin?:asa Current Anticoagulation?:asa Chemical prophylaxis plan:asa Anticipated Discharge Plan Discharge home to care of daughter (princess), [facility] Return for 2 and 6 weeks post op. No notes on file Kaleigh Sortotronically signed by Gus Orozco PA-C at 03/21/2019 15:33 PDTdocu mented in this encounter Plan of Treatment +--------+---------+ + + + | Date | Type | Specialty | Care Team | Description | +--------+---------+ + + + | 04/11/ | Office | Orthopedic Surgery | Gus Orozco, | | | 2018 | Visit | | [address] | | | | | | [place] | | | | | | [place] [address] | | | | | | [phone] | | | | | | | | +--------+---------+ + + + | 05/16/ | Office | Orthopedic Surgery | Mark Montana | | | 2018 | Visit | | MD Paul Foley | | | | | | [address] | | | | | | [place] [address] | | | | | | [phone] | | | | | | | | +--------+---------+ + + + | 06/30/ | Office | Cardiology | Smitha Griffin DO | | | 2019 | Visit | | [address] | | | | | | [place] | | | | | | [address] | | | | | | | | +--------+---------+ + + + + +--------+ + + [...]
--- OUTSIDE RECORDS SUMMARY | ~2019-04-01 | XMS | Encounter Summary ---
Demographics + + + | Address | [address] | | | [place] [address] | + + + | Home Phone [...] | [facility] | | | and Khurramana | + + + | Organization | [facility] | | [...] Providers + +------+ + | Care Industrial Welder Name | Role | Phone | [...] | | | | | from | [address] | [address] | | | | | [place] at | [address] | [address] | | | | | [facility] | [place], | [place], [place] | | | | | Procedures | [place] | [address] Phone: | | | | | NEW PATIENT | [address] | [phone] | | | | | | Phone: | Fax: | | | | | | [phone] | [phone] | | | | | | Fax: | | | | | | | [phone] | | + +--------+ + + + + Encounter Details +--------+---------+ + + + | Date | Type | Department | Care Team | Description | +--------+---------+ + + + | 09/30/ | Office | [facility] | Mark Montaan | 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[place], [place]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 (Primary | | | | [address] | [place] [address] | Dx) | | | | [phone] | [phone] | | | | | | | [...] Procedure: ERCP; Surgeon: Gregor Mccord MD; Location: [facility] MEDICAL PROCEDURE UNIT ERCP N/A 10/14/2016 Procedure: ERCP w/ stent pull; Surgeon: Gregor Mccord MD; Location: [facility] RE UNIT PARTIAL HYSTERECTOMY 1972 RECTOCELE [...] mouth Daily., Disp: , Rfl: Multiple Vitamins-Minerals ([facility]) MISC, Take by mouth., Disp: , Rfl: [employer]-3 Fatty Acids (PRO NUTRIENTS OMEGA 3 PO), [...] discussed with the patient. She would l jacksno to proceed with a left posterior total [...] | | | | | | [place] [address] | | | | | | [phone] | | | | | | | | +--------+---------+ + + + | 05/16/ | Office | Orthopedic Surgery | Mark Montana | | | 2018 | Visit | | MD Paul Foley | | | | | | [place] | | | | | | [place] [address] | | | | | | [phone] | | | | | | | | +--------+---------+ + + + | 06/30/ | Office | Cardiology | Smitha Griffin DO | | | 2019 | Visit | | [address] | | | | | | [place] | | | | | | [address] | | | | | | | [...]
--- OUTSIDE RECORDS SUMMARY | ~2019-04-01 | XMS | Encounter Summary ---
Demographics + + + | Address | [address] | | | [place] [address] | + + + | Home Phone [...] Author | [facility] | | | and Khurramana | + + + | Organization | [facility] | | | and [...] Team Providers + +------+ + | Care [address] Name | Role | Phone | + [...] + | 03/29/ | Surgery | [facility] | Mark Montana | Posterior Total Hip | | 2019 | | [facility] | MD Alaina [address] | Arthroplasty | | | | OPERATING RO[address] | [place] | | | | | [address] | [place] [address] | | | | | [place], [place] | [phone] | | | | | [address] | | | | | | [phone] | | | +--------+---------+ + + + [...] Procedure: ERCP; Surgeon: Gregor Mccord MD; Location: [facility] MEDICAL PROCEDURE UNIT ERCP N/A 10/14/2016 Procedure: ERCP w/ stent pull; Surgeon: Gregor Mccord MD; Location: [facility] MEDICAL PROCEDU RE UNIT HARDWARE REMOVAL Left 03/29/2019 Procedure: REMOVE HARDWARE LOWER EXTREMITY-HIP; Surgeon: Mark Montana MD; [place] : [facility] [place] PARTIAL HYSTERECTOMY 1971 RECTOCELE REPAIR 1991 TAILBONE 1972 broken, partial removal TONSILLECTOMY 1938 TOTAL HIP ARTHROPLASTY Left 03/29/2019 Procedure: Posterior Total Hip Arthroplasty; Surgeon: Mark Montana MD; Location: [facility] MAIN OR Allergies Allergen Reactions Erythromycin [...] Code Follow up: Gus Orozco PA-C [address] [facility] [address] In 2 weeks Discharge Medications Changed Medications [...] | | | | | | | ([facility]) | | | | | | [...] might be different from t he original. [facility] Progress Note Primary Care Physician: [...] Brock RN - 03/29/2019 [facility] Viv Pop RN documented in this encoun ter Plan of Treatment +--------+---------+ + + + | Date | Type | Specialty | Care Team | Description | +--------+---------+ + + + | 04/11/ | Office | Orthopedic Surgery | Gus Orozco, | | | 2018 | Visit | | [place] [address] | | | | | | [facility] | | | | | | [place] [address] | | | | | | [phone] | | | | | | | | +--------+---------+ + + + | 05/16/ | Office | Orthopedic Surgery | Mark Montana | | | 2018 | Visit | | MD [address]aina [address] | | | | | | [place] | | | | | | [place] [address] | | | | | | [phone] | | | | | | | | +--------+---------+ + + + | 06/30/ | Office | Cardiology | Smitha Griffin DO | | | 2019 | Visit | | [address] | | | | | | [place] | | | | | | [address] | | | | | | | [...] | POC | performed at [facility];[address] | | LABORATORY | | | | [address];[place], [place] | | | | | | [address] | | | | + + + + + + + + | Specimen | + + | | + + + + + + + | Performing | Address | City/State/Zipcode | Phone Number | | Organization | | | | + + + + + | [facility] | [address] | [place] [address] | [phone] | + + + + + POC [...] | POC | performed at [facility];[address] | | LABORATORY | | | | [address];[place] | | | | | | [address] | | | | + + + + + + + + | Specimen | + + | | + + + + + + + | Performing | Address | City/State/Zipcode | Phone Number | | Organization | | | | + + + + + | [facility] | [address] | [place] [address] | [phone] | + + + + + POC [...] | POC | performed at [facility];[address] | | LABORATORY | | | | [address];[place], [place] | | | | | | [address] | | | | + + + + + + + + | Specimen | + + | | + + + + + + + | Performing | Address | City/State/Zipcode | Phone Number | | Organization | | | | + + + + + | [facility] | [address] | [place] [address] | [phone] | + + + + + Hemoglobin [...] | | | performed at [facility];[address] | | LABORATORY | | | | [facility];[place], [place] | | | | | | [address] | | | | + + + + + + + + | Specimen | + + | Blood | + + + + + + + | Performing | Address | City/State/Zipcode | Phone Number | | Organization | | | | + + + + + | [facility] | [address] | [place] [address] | [phone] | + + + + + POC [...] | POC | performed at [facility];[address] | | LABORATORY | | | | [address];[place] | | | | | | [address] | | | | + + + + + + + + | Specimen | + + | | + + + + + + + | Performing | Address | City/State/Zipcode | Phone Number | | Organization | | | | + + + + + | [facility] | [address] | [place] [address] | [phone] | + + + + + POC Glucose (03/29/2019 20:59 PDT) + + + + + + | Component | Value | Ref Range | Performed | Pathologist | | | | | At | Signature | + + + + + + | Glucose, | 172 (H)Comment: Testing | 65 - 99 mg/dL | [facility] | | | POC | performed at [facility];[address] | | LABORATORY | | | | [address];[place] | | | | | | [address] | | | | + + + + + + + + | Specimen | + + | | + + + + + + + | Performing | Address | City/State/Zipcode | Phone Number | | Organization | | | | + + + + + | [facility] | [address] | [place] [address] | [phone] | + + + + + XR [...] Testing | 65 - 99 mg/dL | [facility] | | | POC | performed at [facility];[address] | | LABORATORY | | | | [address];[place] | | | | | | [address] | | | | + + + + + + + + | Specimen | + + | | + + + + + + + | Performing | Address | City/State/Zipcode | Phone Number | | Organization | | | | + + + + + | [facility] | [address] | [place] [address] | [phone] | + + + + + Type [...] + + + | BB [facility] | [id number] | | [facility] | | | | | | LABORATORY | | + + + + + + | BB BAND | Testing performed at | | [facility] | | | | [facility];[address] | | LABORATORY | | | | [address];[place] [address] | | | | + + + + + + + + | Specimen | + + | Blood | + + + + + + + | Performing | Address | City/State/Zipcode | Phone Number | | Organization | | | | + + + + + | [facility] | [address] | [place] [address] | [phone] | + + + + + POC [...] | POC | performed at [facility];[address] | | LABORATORY | | | | [address];[place], [place] | | | | | | [address] | | | | + + + + + + + + | Specimen | + + | | + + + + + + + | Performing | Address | City/State/Zipcode | Phone Number | | Organization | | | | + + + + + | [facility] | [address] | [place] [address] | [phone] | + + + + + documented [...]
--- OUTSIDE RECORDS SUMMARY | ~2019-04-01 | XMS | Encounter Summary ---
Demographics + + + | Address | [address] | | | [place] [address] | + + + | Home Phone | | + + + | Preferred Language | Unknown | + + + | Marital Status | | + + + | Temple Affiliation | 1077 | + + + | Race | Unknown | + + + | Ethnic Group | Unknown | + + + Author + + + | Author | [facility] | | | and Khurramana | + + + | Organization | [facility] | | | and [place] [...] Providers + +------+ + | Care Machine Boss Name | Role | Phone | + [...] | | | | | from | [address] | [address] | | | | | [place] at | [address] | [address] | | | | | [facility]CO | [place], | [place], [place] | | | | | Procedures | [place] | [address] Phone: | | | | | NEW PATIENT | [address] | [phone] | | | | | | Phone: | Fax: | | | | | | [phone] | [phone] | | | | | | Fax: | | | | | | | [phone] | | + +--------+ + + + + Encounter Details +--------+---------+ + + + | Date | Type | Department | Care Team | Description | +--------+---------+ + + + | 09/30/ | Office | [facility] | Mark Montana | 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[place], [place]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 (Primary | | | | [address] | [place] [address] | Dx) | | | | [phone] | [phone] | | | | | | | [...] Procedure: ERCP; Surgeon: Gregor Mccord MD; Location: [facility] MEDICAL PROCEDURE UNIT ERCP N/A 10/14/2016 Procedure: ERCP w/ stent pull; Surgeon: Gregor Mccord MD; Location: [facility] RE UNIT PARTIAL HYSTERECTOMY 1972 RECTOCELE [...] Disp: , Rfl: Multiple Vitamins-Minerals ([facility]) MISC, Take by mouth., Disp: , Rfl: Hendricks-3 Fatty Acids (PRO NUTRIENTS OMEGA 3 PO), [...] | | | | | | [place] [address] | | | | | | [phone] | | | | | | | | +--------+---------+ + + + | 05/16/ | Office | Orthopedic Surgery | Mark Montana | | | 2018 | Visit | | MD Paul Foley | | | | | | [address] | | | | | | [place] [address] | | | | | | [phone] | | | | | | | | +--------+---------+ + + + | 06/30/ | Office | Cardiology | Smitha Griffin DO | | | 2019 | Visit | | [address] | | | | | | [place] | | | | | | [address] | | | | | | | [...]
--- OUTSIDE RECORDS SUMMARY | ~2019-04-01 | XMS | Encounter Summary ---
Demographics + + + | Address | [address] | | | [place] [address] | + + + | Home Phone | | + + + | Preferred Language | Unknown | + + + | Marital Status | | + + + | Catholic Affiliation | 1077 | + + + | Race | Unknown | + + + | Ethnic Group | Unknown | + + + Author + + + | Author | [facility] | | | and Khurramana | + + + | Organization | [facility] | | | and [place] [...] Team Providers + +------+ + | Care Silk Screen Etcher Name | Role | Phone | + +------+ + | Susan Leos | PCP | | | PA-C | | | + +------+ + Encounter Details +--------+ + + + + | Date | Type | Department | Care Team | Description | +--------+ + + + + | 03/14/ | [facility] | [facility] | Mark [place] | Left hip pain | | 2018 | Encounter | [address] | MD Skyler [address] | | | | | [address] | [address] | | | | | [place], [place] | [place] [address] | | | | | [address] | [phone] | | | | | [phone] | | | +--------+ + + + [...] | | | | | | ([facility]) | | | | | | | MISC | | | | | | + + + +---------+ + + | [place]-3 Fatty | Take 1 tablet by | [...] | | | | | | [place] [address] | | | | | | [phone] | | | | | | | | +--------+---------+ + + + | 05/16/ | Office | Orthopedic Surgery | Mark Montana | | | 2018 | Visit | | MD Paul Foley | | | | | | [address] | | | | | | [place] [address] | | | | | | [phone] | | | | | | | | +--------+---------+ + + + | 06/30/ | Office | Cardiology | Smitha Griffin DO | | | 2019 | Visit | | [address] | | | | | | [place] | | | | | | [address] | | | | | | | [...]
--- OUTSIDE RECORDS SUMMARY | ~2019-04-01 | XMS | Encounter Summary ---
Demographics + + + | Address | [address] | | | [place] [address] | + + + | Home Phone | | + + + | Preferred Language | Unknown | + + + | Marital Status | | + + + | Religion Affiliation | 1077 | + + + | Race | Unknown | + + + | Ethnic Group | Unknown | + + + Author + + + | Author | [facility] | | | and Khurramana | + + + | Organization | [facility] | | | [...] Team Providers + +------+ + | Care Radiologic Therapist Name | Role | Phone | [...] + + | 03/29/ | Surgery | [facility] | Mark Montana | Posterior Total Hip | | 2019 | | [facility] | MD Alaina [address] | Arthroplasty | | | | OPER[address] RO[address] | [address] | | | | | [address] | [place] [address] | | | | | [place], [place] | [phone] | | | | | [address] | | | | | | [phone] | | | +--------+---------+ + + + [...] disease), lumbar 02/04/2016 Diabetes type 2, controlled ([facility]) Full dentures upper & lower [...] Procedure: ERCP; Surgeon: Gregor Mccord MD; Location: [facility] MEDICAL PROCEDURE UNIT ERCP N/A 10/14/2016 Procedure: ERCP w/ stent pull; Surgeon: Gregor Mccord MD; Location: [facility] MEDICAL PROCEDU RE UNIT HARDWARE REMOVAL Left 03/29/2019 Procedure: REMOVE HARDWARE LOWER EXTREMITY-HIP; Surgeon: Mark [place] MD; [place] : [facility] [place] PARTIAL HYSTERECTOMY 1971 RECTOCELE REPAIR 1991 TAILBONE 1972 broken, partial removal TONSILLECTOMY 1938 TOTAL HIP ARTHROPLASTY Left 03/29/2019 Procedure: Posterior Total Hip Arthroplasty; Surgeon: Mark Montana MD; Location: [facility] MAIN OR Allergies Allergen [...] Code Follow up: Gus Orozco PA-C [address] [facility] [address] In 2 weeks Discharge Medications Changed Medications [...] | | | | | | | ([facility]) | | | | | | | MISC | | | | | | + + + +---------+ + + | [place]-3 Fatty | Take 1 tablet by | [...] might be different from t he original. [facility] Progress Note Primary Care Physician: Susan [...] Brock RN - [facility]29[facility] Viv Pop RN documented in this encoun ter Plan of Treatment +--------+---------+ + + + | Date | Type | Specialty | Care Team | Description | +--------+---------+ + + + | 04/11/ | Office | Orthopedic Surgery | Gus Orozco, | | | 2018 | Visit | | KYA [address] | | | | | | [facility], | | | | | | [place] [address] | | | | | | [phone] | | | | | | | | +--------+---------+ + + + | 05/16/ | Office | Orthopedic Surgery | Mark Montana | | | 2018 | Visit | | MD Alaina [address] | | | | | | [address] | | | | | | [place] [address] | | | | | | [phone] | | | | | | | | +--------+---------+ + + + | 06/30/ | Office | Cardiology | Smitha Griffin DO | | | 2019 | Visit | | [address] | | | | | | [place] | | | | | | [address] | | | | | | | [...] | | | POC | performed at [facility];[address] | | LABORATORY | | | | [address];[place], [place] | | | | | | [address] | | | | + + + + + + + + | Specimen | + + | | + + + + + + + | Performing | Address | City/State/Zipcode | Phone Number | | Organization | | | | + + + + + | [facility] | [address] | [place] [address] | [phone] | + + + + + POC Glucose (03/31/2019 7:23 PDT) + + + + + + | Component | Value | Ref Range | Performed | Pathologist | | | | | At | Signature | + + + + + + | Glucose, | 122 (H)Comment: Testing | 65 - 99 mg/dL | [place] | | | POC | performed at [facility];[address] | | LABORATORY | | | | [address];[place] | | | | | | [address] | | | | + + + + + + + + | Specimen | + + | | + + + + + + + | Performing | Address | City/State/Zipcode | Phone Number | | Organization | | | | + + + + + | [facility] | [address] | [place] [address] | [phone] | + + + + + POC Glucose (03/30/2019 20:57 PDT) + + + + + + | Component | Value | Ref Range | Performed | Pathologist | | | | | At | Signature | + + + + + + | Glucose, | 98Comment: Testing | 65 - 99 mg/dL | [place] | | | POC | performed at [facility];[address] | | LABORATORY | | | | [address];[place], [place] | | | | | | [address] | | | | + + + + + + + + | Specimen | + + | | + + + + + + + | Performing | Address | City/State/Zipcode | Phone Number | | Organization | | | | + + + + + | [facility] | [address] | [place] [address] | [phone] | + + + + + Hemoglobin [...] [facility] | | | | performed at [facility];[address] | | LABORATORY | | | | [facility], [place] | | | | | | [address] | | | | + + + + + + + + | Specimen | + + | Blood | + + + + + + + | Performing | Address | City/State/Zipcode | Phone Number | | Organization | | | | + + + + + | [facility] | [address] | [place] [address] | [phone] | + + + + + POC Glucose (03/30/2019 3:23 PDT) + + + + + + | Component | Value | Ref Range | Performed | Pathologist | | | | | At | Signature | + + + + + + | Glucose, | 147 (H)Comment: Testing | 65 - 99 mg/dL | [facility] | | | POC | performed at [facility];[address] | | LABORATORY | | | | [address];[place] | | | | | | [address] | | | | + + + + + + + + | Specimen | + + | | + + + + + + + | Performing | Address | City/State/Zipcode | Phone Number | | Organization | | | | + + + + + | [facility] | [address] | [place] [address] | [phone] | + + + + + POC Glucose (03/29/2019 20:59 PDT) + + + + + + | Component | Value | Ref Range | Performed | Pathologist | | | | | At | Signature | + + + + + + | Glucose, | 172 (H)Comment: Testing | 65 - 99 mg/dL | [facility] | | | POC | performed at [facility];[address] | | LABORATORY | | | | [address];[place] | | | | | | [address] | | | | + + + + + + + + | Specimen | + + | | + + + + + + + | Performing | Address | City/State/Zipcode | Phone Number | | Organization | | | | + + + + + | [facility] | [address] | [place] [address] | [phone] | + + + + + XR [...] + + | Performing | Address | City/State/[facility] | Phone Number | | Organization [...] Testing | 65 - 99 mg/dL | [facility] | | | POC | performed at [facility];[address] | | LABORATORY | | | | [address];[place] | | | | | | [address] | | | | + + + + + + + + | Specimen | + + | | + + + + + + + | Performing | Address | City/State/Zipcode | Phone Number | | Organization | | | | + + + + + | [facility] | [address] | [place] [address] | [phone] | + + + + + Type [...] + + + | [facility] | [id number] | | [facility] | | | | | | LABORATORY | | + + + + + + | [facility] | Testing performed at | | [facility] | | | | [facility];[address] | | LABORATORY | | | [address];[place] [address] | | | | + + + + + + + + | Specimen | + + | Blood | + + + + + + + | Performing | Address | City/State/Zipcode | Phone Number | | Organization | | | | + + + + + | [facility] | [address] | [place] [address] | [phone] | + + + + + POC Glucose (03/29/2019 6:42 PDT) + + + + + + | Component | Value | Ref Range | Performed | Pathologist | | | | | At | Signature | + + + + + + | Glucose, | 96Comment: Testing | 65 - 99 mg/dL | [place] | | | POC | performed at [facility];[address] | | LABORATORY | | | | [address];[place], [place] | | | | | | [address] | | | | + + + + + + + + | Specimen | + + | | + + + + + + + | Performing | Address | City/State/Zipcode | Phone Number | | Organization | | | | + + + + + | [facility] | [address] | [place] [address] | [phone] | + + + + + documented [...]
--- OUTSIDE RECORDS SUMMARY | ~2019-04-01 | XMS | Encounter Summary ---
Demographics + + + | Address | [address] | | | [place] [address] | + + + | Home Phone [...] + + + | Author | [facility] | + + + | Organization | [facility] | + + + | [...] Team Providers + +------+ + | Care Draw Press Operator Name | Role | Phone [...] CH[facility] | | | | | | [facility] | | | | | | and Healing, | | | | | | Building [address], [address]th | | | | | | Floor [place], [place] | | | | | | [address] | | | | | | [phone] | | | +--------+ + + + [...] | | | | | | skin, [id number]. The | | | | | | [...] [facility] | [address], [address] | [place] [address] | | | DERMATOPATHOLOGY | [address] | | | + + + + + documented in this encounter Visit Diagnoses + + | Diagnosis | + + | Other melanin hyperpigmentation | + + documented in this encounter
--- OUTSIDE RECORDS SUMMARY | ~2019-04-01 | XMS | Encounter Summary ---
Demographics + + + | Address | [address] | | | [place] [address] | + + + | Home Phone | | + + + | Preferred Language | Unknown | + + + | Marital Status | | + + + | Yarsanism Affiliation | Unknown | + + + | Race | White | + + + | Ethnic Group | Not or | + + + Author + + + | Author | [facility] | + + + | Organization | [facility] | + + + | [...] Team Providers + +------+ + | Care Arch Cushion Skiving Machine Operator Name | Role | Phone [...] [facility]16[facility] | | | | | | [facility] | | | | | | and Healing, | | | | | | Building [address], [address]th | | | | | | Floor [place], [place] | | | | | | [address] | | | | | | [phone] | | | +--------+ + + + [...] ls | | | | | | Received:[id number]/WW-0 | | | | | | 360-16 [...] Materials | | | | | | Returned:[id number] | | | | | | 360-16 [...] + + | [facility] | [address], [address] | [place] [address] | | | DERMATOPATHOLOGY | [address] | | | + + + + + documented in this encounter Visit Diagnoses Not on filedocumented in this encounter"
--- OUTSIDE RECORDS SUMMARY | ~2019-04-01 | XMS | Encounter Summary ---
Demographics + + + | Address | [address] | | | [place] [address] | + + + | Home Phone | | + + + | Preferred Language | Unknown | + + + | Marital Status | | + + + | Buddhist Affiliation | Unknown | + + + | Race | White | + + + | Ethnic Group | Not or | + + + Author + + + | Author | [facility] | + + + | Organization | [facility] | + + + | [...] Team Providers + +------+ + | Care Wash House Worker Name | Role | Phone | [...] [facility] | | | | | | [facility] | | | | | | and Healing, | | | | | | Building [address], [address]th | | | | | | Floor [place], [place] | | | | | | [address] | | | | | | [phone] | | | +--------+ + + + [...] ls | | | | | | Received:[id number]/WW-[id number] | | | | | | 360-16 [...] Materials | | | | | | Returned:[id number] | | | | | | 360-16 [...] [facility] | Mail[address], [address] | [place] [address] | | | DERMATOPATHOLOGY | [address] | | | + + + + + documented in this encounter Visit Diagnoses Not on filedocumented in this encounter"
--- OUTSIDE RECORDS SUMMARY | ~2019-04-01 | XMS | Clinical Summary ---
Demographics + + + | Address | [address] | | | [place] [address] | + + + | Home Phone [...] | Author | [facility] | | | and Khurramana | + + + | Organization | [facility] | [...] Team Providers + +------+ + | Care Short Story Writer Name | Role | Phone | [...] | | | | e | | ([facility]) | | | | | | | | MISC | | | | | | | + + + +---------+------+------+-------+ | [place]-3 Fatty | Take 1 tablet by | [...] ed | + + + +---------+------+------+-------+ | oxyCODONE [...] automatically from request for surgery | | [id number] | + + + + + | [...] Total Hip | | 2018 | | Lucille Foley MD | Arthroplasty | +--------+ + + + [...] | | 2018 | Visit | | PA-C | 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 (Primary | | | | | | Dx) | +--------+ + + + + | 03/16/ | Telephone | Orthopedic Surgery | Yvette Michelle, | Surgery Appointment | | 2018 | | | News Department Intern | | +--------+ + + + + | 03/14/ | Hospital | Radiology | Mark Montana | Left hip pain | | 2018 | Encounter | | MD Alaina | | +--------+ + + + + | 03/14/ | Office | Orthopedic Surgery | Mark Montana | 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 of | | | | [...] | Oxygen Saturation | 97% | 03/31/2019 1150 PDT | + + + + | Inhaled Oxygen | - | - | | Concentration | | | + + + + | Weight | 74.5 kg (164 lb 3.9 | 03/29/2019631 PDT | | | oz) | | + + + + | Height | 170.2 cm (5' 7") | 03/29/2019631 PDT | + + + + | [...] | | | | | | [place] [address] | | | | | | [phone] | | | | | | | | +--------+---------+ + + + | 05/16/ | Office | Orthopedic Surgery | Mark Montana | | | 2018 | Visit | | MD Paul Foley | | | | | | [address] | | | | | | [place] [address] | | | | | | [phone] | | | | | | | | +--------+---------+ + + + | 06/30/ | Office | Cardiology | Smitha Griffin DO | | | 2019 | Visit | | [address] | | | | | | [place] | | | | | | [address] | | | | | | | [...] MD | | | | | | /[address] | | | | | | | [...] MD | | | | | | /[address] | | | | | | | | 802 | + +--------+--------+ +--------+--------+--------+ | Stent Bili Advnx 10fr 5cm - | Stent | | [place] | | | 3432 / | | [id number]: Qty: 1 on | | | SCIENTIFIC | | | / | | 09/26/2016 by Gregor Mccord | | | BIGG - BSCI | | | | | MD Delmy | | | | | | | + +--------+--------+ +--------+--------+--------+ | Imp Hip [facility] | | Left: | RANDI | | 12/11/ | 702-04 | | 54e - SnaImplanted: Qty: 1 on | | Hip | MEDICAL - | | 2023 | -54E | | 03/29/2019 by Nan, | | | ALLEN | | | /NA | | [place]oley [place] | | | | | | /[address] | | | | | | | | [address] | + +--------+--------+ +--------+--------+--------+ | Screw Hex Lp [id number] - | | Left: | RANDI | [...] Testing | 65 - 99 mg/dL | [facility] | | | POC | performed at [facility];[address] | | LABORATORY | | | | [facility];[place], [place] | | | | | | [address] | | | | + + + + + + + + | Specimen | + + | | + + + + + + + | Performing | Address | City/State/Zipcode | Phone Number | | Organization | | | | + + + + + | [facility] | [address] | [place] [address] | [phone] | + + + + + Hemoglobin [...] KR | | | | performed at [facility];[address] | | LABORATORY | | | | [address];[place] | | | | | | [address] | | | | + + + + + + + + | Specimen | + + | Blood | + + + + + + + | Performing | Address | City/State/Zipcode | Phone Number | | Organization | | | | + + + + + | [facility] | [address] | [place] [address] | [phone] | + + + + + XR [...] + + | Performing | Address | City/State[facility] | Phone Number | | Organization [...] + + + | [facility] | [id number] | | [facility] | | | | | | LABORATORY | | + + + + + + | [facility] | Testing performed at | | [facility] | | | | [address] | | LABORATORY | | | | [address];[place] [address] | | | | + + + + + + + + | Specimen | + + | Blood | + + + + + + + | Performing | Address | City/State/Zipcode | Phone Number | | Organization | | | | + + + + + | [facility] | [address] | [place] [address] | [phone] | + + + + + Neuraxial [...] JETHRO | | | | performed at [facility];[address] | | LABORATORY | | | | [address];[place] | | | | | | [address] | | | | + + + + + + + + | Specimen | + + | Tissue | + + + + + + + | Performing | Address | City/State/Zipcode | Phone Number | | Organization | | | | + + + + + | [facility] | [address] | [place] [address] | [phone] | + + + + + CBC [...] performed at [facility] | | | | | | [address];[place] | | | | | | [address] | | | | + + + + + + + + | Specimen | + + | Blood | + + + + + + + | Performing | Address | City/State/Zipcode | Phone Number | | Organization | | | | + + + + + | [facility] | [address] | [place] [address] | [phone] | + + + + + Hemoglobin A1C (03/21/2019 15:33 PDT) + + + + + + | Component | Value | Ref Range | Performed | Pathologist | | | | | At | Signature | + + + + + + | Hemoglobin | 5.8Comment: HbA1c method | 4.0 - 6.0 % | [facility] | | | A1c | is [...] | 120Comment: Estimated | <154 mg/dL | [facility] | | | Average | Average Glucose | | LABORATORY | | | Glucose | calculated from | | | | | | hemoglobin A1c by use of | | | | | | the ADArecommended | | | | | | formula.Testing | | | | | | performed at [facility], [address] | | | | | | [address], | | | | | | [place] [address] | | | | + + + + + + + + | Specimen | + + | Blood | + + + + + + + | Performing | Address | City/State/Zipcode | Phone Number | | Organization | | | | + + + + + | [facility] | [address] | [place] [address] | [phone] | + + + + + Basic [...] [place];[address] | | | | | | [facility];[place], [place] | | | | | | [address] | | | | + + + + + + + + | Specimen | + + | Blood | + + + + + + + | Performing | Address | City/State/Zipcode | Phone Number | | Organization | | | | + + + + + | [facility] | [address] | [place] [address] | [phone] | + + + + + ECG [...] | [employer] [facility] | [facility] | [id number] | 06/15/19 | | | Medica | | | HEALTH | | 17-Pre | | | re | | | MDCR | | sent | | | | + +--------+ +--------+-------+---------+--------+ | [employer] | [facility] | [id number] | | | | Medica | | [...] | 1936 | [phone] | [place] [address] | | | a[place]atou | | | 3 (Home) | | + +--------+ +--------+ + + | Scarlet Murguia | Person | Self | [birth year] | [address] | | | al/Isidro | | 1936 | [phone] | [place] [address] | | | aissatou | | | 3 (Home) | | + +--------+ +--------+ + + Advance Directives Patient has advance care planning documents, and code status on file. For more information, please contact:[facility] and [place] [address] + + + + + | Code Status | Date | Date | Comments | | | Activated | Inactivated | | + + + + + | Full Code | 03/29/2019 | 03/31/2019 | | | | 14:18 | 16:40 | | + + + + +
--- OUTSIDE RECORDS SUMMARY | ~2019-04-01 | XMS | Clinical Summary ---
Demographics + + + | Address | [address] | | | [place] [address] | + + + | Home Phone [...] | Author | [facility] | | | and Khurramana | + + + | Organization | [facility] | | [...] Team Providers + +------+ + | Care After School Teacher Name | Role | Phone | [...] | | | | e | | ([facility]) | | | | | | | | MISC | | | | | | | + + + +---------+------+------+-------+ | [place]-3 Fatty | Take 1 tablet by | [...] automatically from request for surgery | | [id number] | + + + + + | [...] Appointment | | 2018 | | | Ornamental Bronze Worker | | +--------+ + + + + [...] | | | | | | [place] [address] | | | | | | [phone] | | | | | | | | +--------+---------+ + + + | 05/16/ | Office | Orthopedic Surgery | Mark Montana | | | 2018 | Visit | | MD Paul Foley | | | | | | [place] | | | | | | [place] [address] | | | | | | [phone] | | | | | | | | +--------+---------+ + + + | 06/30/ | Office | Cardiology | Smitha Griffin DO | | | 2019 | Visit | | [address] | | | | | | [place] | | | | | | [address] | | | | | | | [...] MD | | | | | | /[address] | | | | | | | [...] MD | | | | | | /[id number] | | | | | | | | 802 | + +--------+--------+ +--------+--------+--------+ | Stent Bili Advnx 10fr 5cm - | Stent | | [place] | | | 3432 / | | [id number]: Qty: 1 on | | | SCIENTIFIC | | | / | | 09/26/2016 by Gregor Mccord | | | BIGG - BSCI | | | | | MD Delmy | | | | | | | + +--------+--------+ +--------+--------+--------+ | Imp Hip [facility] | | Left: | RANDI | | 12/11/ | 702-04 | | 54e - SnaImplanted: Qty: 1 on | | Hip | MEDICAL - | | 2023 | -54E | | 03/29/2019 by Nan, | | | ALLEN | | | /NA | | Mark Foley MD | | | | | | /[address] | | | | | | | | 901A | + +--------+--------+ +--------+--------+--------+ | Screw Hex Lp [id number] - | | Left: | RANDI | [...] Testing | 65 - 99 mg/dL | [facility] | | | POC | performed at [facility] | | LABORATORY | | | | [facility];[place], [place] | | | | | | [address] | | | | + + + + + + + + | Specimen | + + | | + + + + + + + | Performing | Address | City/State/Zipcode | Phone Number | | Organization | | | | + + + + + | [facility] | [address] | [place] [address] | [phone] | + + + + + Hemoglobin [...] KR | | | | performed at [facility];[address] | | LABORATORY | | | | Nabila Vargas;[place] | | | | | | [address] | | | | + + + + + + + + | Specimen | + + | Blood | + + + + + + + | Performing | Address | City/State/Zipcode | Phone Number | | Organization | | | | + + + + + | [facility] | [address] | [place] [address] | [phone] | + + + + + XR [...] + + | Performing | Address | City/State/[facility] | Phone Number | | Organization | [...] + + + | [facility] | [id number] | | [facility] | | | | | | LABORATORY | | + + + + + + | [facility] | Testing performed at | | [facility] | | | | [address] | | LABORATORY | | | | Sam;[place] [address] | | | | + + + + + + + + | Specimen | + + | Blood | + + + + + + + | Performing | Address | City/State/Zipcode | Phone Number | | Organization | | | | + + + + + | [facility] | [address] | [place] [address] | [phone] | + + + + + Neuraxial [...] JETHRO | | | | performed at [facility];[address] | | LABORATORY | | | | [address]a Vargas;[place] | | | | | | [address] | | | | + + + + + + + + | Specimen | + + | Tissue | + + + + + + + | Performing | Address | City/State/Zipcode | Phone Number | | Organization | | | | + + + + + | [facility] | [address] | [place] [address] | [phone] | + + + + + CBC [...] | | | | | performed at [facility];[employer] | | | | | | [place]arg[place] | | | | | | [address] | | | | + + + + + + + + | Specimen | + + | Blood | + + + + + + + | Performing | Address | City/State/Zipcode | Phone Number | | Organization | | | | + + + + + | [facility] | [address] | [place] [address] | [phone] | + + + + + Hemoglobin A1C (03/21/2019 15:33 PDT) + + + + + + | Component | Value | Ref Range | Performed | Pathologist | | | | | At | Signature | + + + + + + | Hemoglobin | 5.8Comment: HbA1c method | 4.0 - 6.0 % | [facility] | | | A1c | is certified [...] | 120Comment: Estimated | <154 mg/dL | [facility] | | | Average | Average Glucose | | LABORATORY | | | Glucose | calculated from | | | | | | hemoglobin A1c by use of | | | | | | the ADArecommended | | | | | | formula.Testing | | | | | | performed at [facility], [address] | | | | | | [place], | | | | | | [place] [address] | | | | + + + + + + + + | Specimen | + + | Blood | + + + + + + + | Performing | Address | City/State/Zipcode | Phone Number | | Organization | | | | + + + + + | [facility] | [address] | [place] [address] | [phone] | + + + + + Basic [...] | | | | | performed at [facility];[address] | | | | | | [facility];[place], [place] | | | | | | [address] | | | | + + + + + + + + | Specimen | + + | Blood | + + + + + + + | Performing | Address | City/State/Zipcode | Phone Number | | Organization | | | | + + + + + | [facility] | [address] | [place] [address] | [phone] | + + + + + ECG [...] | [employer] | [facility] | [id number] | 06/15/19 | | | Medica | | | HEALTH | | 17-Pre | | | re | | | MDCR | | sent | | | | + +--------+ +--------+-------+---------+--------+ | [employer] | [facility] | [id number] | | | | Medica | | [...] | 1936 | [phone] | [place] [address] | | | aisastou | | | 3 (Home) | | + +--------+ +--------+ + + | Scarlet Murguia | Person | Self | [birth year] | [address] | | | al/Isidro | | 1936 | [phone] | [place] [address] | | | aissatou | | | 3 (Home) | | + +--------+ +--------+ + + Advance Directives Patient has advance care planning documents, and code status on file. For more information, please contact:[facility] and [place] [address] + + + + + | Code Status | Date | Date | Comments | | | Activated | Inactivated | | + + + + + | Full Code | 03/29/2019 | 03/31/2019 | | | | 14:18 | 16:40 | | + + + + +
--- OUTSIDE RECORDS SUMMARY | ~2019-04-01 | XMS | Clinical Summary ---
Demographics + + + | Address | [address] | | | [place] [address] | + + + | Home Phone [...] + | Author | [facility] travel (Historical as of | | | 01-29-19) | + + + | Organization | [facility] travel (Historical as of | | | 01-29-19) | + + + | Address | Unknown | + + + | Phone | Unavailable | + + + Support + + + + + | Name | Relationship | Address | Phone | + + + + + | Alejo Murguia | DIRK | [address] | | | | | [place] [address] | | + + + + + Care Team Providers + +------+ + | Care Development Editor Name | Role | Phone | [...]
--- OUTSIDE RECORDS SUMMARY | ~2019-04-01 | XMS | Encounter Summary ---
Demographics + + + | Address | [address] | | | [place] [address] | + + + | Home Phone [...] + | Author | [facility] | | | and Khurramana | + + + | Organization | [facility] [...] Team Providers + +------+ + | Care Specimen Processor Name | Role | Phone | + [...] Surgery Appointment | | 2018 | | [place] [address] | Superintendent Institution | | | | | [place] | | | | | | [address] | | | | | | [phone] | | | +--------+ + + + [...] | | | | | | [place] [address] | | | | | | [phone] | | | | | | | | +--------+---------+ + + + | 05/16/ | Office | Orthopedic Surgery | Mark Montana | | | 2018 | Visit | | MD [address] | | | | | | [place] | | | | | | [place] [address] | | | | | | [phone] | | | | | | | [...]
--- OUTSIDE RECORDS SUMMARY | ~2019-04-01 | XMS | Encounter Summary ---
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 | [phone] | | | | | | Fax: | | | | | | | [phone] | | + +--------+ + + + + Encounter Details +--------+---------+ + + + | Date | Type | Department | Care Team | Description | +--------+---------+ + + + | 03/21/ | Office | [facility] | Gus Orozco, | 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[place], [place]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[place], | left hip (Primary | | | | [address] | [place] [address] | Dx) | | | | [phone] | [phone] | | | | | | | [...] Procedure: ERCP; Surgeon: Gregor Mccord MD; Location: [facility] ERCP N/A 10/14/2016 Procedure: ERCP w/ stent pull; Surgeon: Gregor Mccord MD; Location[facility] PARTIAL HYSTERECTOMY [...] Maternal Uncle Social History Occupational History 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 Tobacco Use Smoking status: Never [...] MISC, Take by mouth., Disp: , Rfl: [place]-3 Fatty Acids (PRO NUTRIENTS OMEGA 3 PO), [...] 12 months?:yes Under the care of a computational physicist?: no Diabetes Optimization?:well controlled diet No results found for: LABGLYC History of MRSA/MSSA infection?:no Metal sensitivity or allergy?:no Intolerance to certain specific opiate?:no DVT/PE Risk Stratification Personal history of DVT/PE?:no Cancer treatment in the last 5 years?:no Hormone replacement therapy?:no Tolerate aspirin?:asa Current Anticoagulation?:asa Chemical prophylaxis plan:asa Anticipated Discharge Plan Discharge home to care of daughter (princess), [facility] in [facility]) Return for 2 and 6 weeks [...] [place] | | | | | | [place] [address] | | | | | | [phone] | | | | | | | | +--------+---------+ + + + | 05/16/ | Office | Orthopedic Surgery | Mark Montana | | | 2018 | Visit | | MD Paul Foley | | | | | | [place] | | | | | | [place] [address] | | | | | | [phone] | | | | | | | | +--------+---------+ + + + | 06/30/ | Office | Cardiology | Smitha Griffin DO | | | 2019 | Visit | | [address] | | | | | | [place] | | | | | | [address] | | | | | | | [...]
--- OUTSIDE RECORDS SUMMARY | ~2019-04-01 | XMS | Encounter Summary ---
Demographics + + + | Address | [address] | | | [place] [address] | + + + | Home Phone [...] Team Providers + +------+ + | Care Stationary Boiler Fireman Name | Role | Phone | + [...] Clinic Dermatology | | | | | [facility] | [address] [facility] | | | | | and Healing, | [place] | | | | | [facility] | [address] | | | | | Floor [place], [place] | | | | | | [address] | | | | | | [phone] | | | +--------+ + + + [...] | OLOGY | | | | Case: [id number] | | | | | | | [...] | [facility] | [address] | [place] [address] | | | DERMATOPATHOLOGY | [address] | | | + + + + + documented in this encounter Visit Diagnoses + + | Diagnosis | + + | Neoplasm of uncertain behavior of skin | + + documented in this encounter
--- OUTSIDE RECORDS SUMMARY | ~2019-04-01 | XMS | Encounter Summary ---
Demographics + + + | Address | [address] | | | [place] [address] | + + + | Home Phone [...] | Author | [facility] | | | and Khurramana | + + + | Organization | [facility] [...] Team Providers + +------+ + | Care Television Analyzer Name | Role | Phone | + +------+ + | Susan Leos | PCP | | | PA-C | | | + +------+ + Encounter Details +--------+ + + + + | Date | Type | Department | Care Team | Description | +--------+ + + + + | 03/21/ | Preadmit | [facility] | Mark [place] | | | 2019 | Visit | CENTER PREADMIT | MD [address]ain[address] | | | | | CLINIC [address] | [place] | | | | | [place], [place] | [place] [address] | | | | | [address] | [phone] | | | | | [phone] | | | +--------+ + + + [...] were given in the hospital. Wear them [id number] d ay for3 to 4weeks. To relieve discomfort at night, get up and move around. Tell all your healthcare providers including your dentist about your artificial join t before any procedure. You mayneed to take antibiotics before dental work and other medic al procedures to reduce the risk of infection. Arrangeto have your lobito removed [id number] after surgery. The lobito were u sed [...] ur hip joint. Use a raisedtoilet seat [id number] after surgery. Ask your healthcare provider if [...] put on socks and shoes. And don't pickling operator items from the floor. Use a [...] draining from the incision Date Last Reviewed: 10/13/201719997542-0933 [employer]. [address] [place] [address], [place] [id number]. All righ ts reserved. This information is not intended as a substitute for professional medical care. Always follow your healthcare professional's instructions. Outpatient Medications Marked as Taking for the 03/21/19 encounter (Preadmit Visit) with [facility] PAS ROOM 2 Medication Sig Instructions acetaminophen [...] TAKE day of proced ure Multiple Vitamins-Minerals ([facility]) MISC Take by mouth. DO NOT TAKE day of procedure [place]-3 Fatty Acids (PRO NUTRIENTS OMEGA 3 PO) [...] | | | | | | [place] [address] | | | | | | [phone] | | | | | | | | +--------+---------+ + + + | 05/16/ | Office | Orthopedic Surgery | Mark Montana | | | 2018 | Visit | | MD Paul Foley | | | | | | [place] | | | | | | [place] [address] | | | | | | [phone] | | | | | | | | +--------+---------+ + + + | 06/30/ | Office | Cardiology | Griffin Smitha, DO | | | 2019 | Visit | | [address] | | | | | | [place] | | | | | | [address] | | | | | | | [...] Antibody | Testing performed at | | [facility] | | | Screen | [facility];[address] | | LABORATORY | | | | [address];[place] [address] | | | | + + + + + + + + | Specimen | + + | Blood | + + + + + + + | Performing | Address | City/State/Zipcode | Phone Number | | Organization | | | | + + + + + | [facility] | [address] | [place] [address] | [phone] | + + + + + MRSA [...] | | | | performed at [facility] | | LABORATORY | | | | [address];[place] | | | | | | [address] | | | | + + + + + + + + | Specimen | + + | Tissue | + + + + + + + | Performing | Address | City/State/Zipcode | Phone Number | | Organization | | | | + + + + + | [facility] | [address] | [place] [address] | [phone] | + + + + + Hemoglobin A1C (03/21/2019 15:33 PDT) + + + + + + | Component | Value | Ref Range | Performed | Pathologist | | | | | At | Signature | + + + + + + | Hemoglobin | 5.8Comment: HbA1c method | 4.0 - 6.0 % | [facility] | | | A1c | is certified [...] | 120Comment: Estimated | <154 mg/dL | [facility] | | | Average | Average Glucose | | LABORATORY | | | Glucose | calculated from | | | | | | hemoglobin A1c by use of | | | | | | the ADArecommended | | | | | | formula.Testing | | | | | | performed at [facility], [address] | | | | | | [facility], | | | | | | [place] [address] | | | | + + + + + + + + | Specimen | + + | Blood | + + + + + + + | Performing | Address | City/State/Zipcode | Phone Number | | Organization | | | | + + + + + | [facility] | [address] | [place] [address] | [phone] | + + + + + CBC [...] | | | | performed at [facility];[address] | | | | | | [address];[place] | | | | | | [address] | | | | + + + + + + + + | Specimen | + + | Blood | + + + + + + + | Performing | Address | City/State/Zipcode | Phone Number | | Organization | | | | + + + + + | [facility] | [address] | [place] [address] | [phone] | + + + + + Basic [...] | | | | performed at [facility];[address] | | | | | | [facility];[place], [place] | | | | | | [address] | | | | + + + + + + + + | Specimen | + + | Blood | + + + + + + + | Performing | Address | City/State/Zipcode | Phone Number | | Organization | | | | + + + + + | [facility] | [address] | [place] [address] | [phone] | + + + + + ECG [...]
--- OUTSIDE RECORDS SUMMARY | ~2019-04-01 | XMS | Encounter Summary ---
Demographics + + + | Address | [address] | | | [place] [address] | + + + | Home Phone [...] + + | Author | [facility] (Historical as of | | | 01-29-19) | + + + | Organization | [facility] (Historical as of | | | 01-29-19) | + + + | Address | Unknown | + + + | Phone | Unavailable | + + + Support + + + + + | Name | Relationship | Address | Phone | + + + + + | Alejo Murguia | DIRK | [address] | | | | | [place] [address] | | + + + + + Care Team Providers + +------+ + | Care Stripper Machine Operator Name | Role | Phone [...] | 2019 | on Only | [facility] [place] | [address] | | | | | [address] | [place], [place] | | | | | [place], [place] | [address] | | | | | [address] | | | | | | [phone] | | | +--------+ + + + [...]
--- OUTSIDE RECORDS SUMMARY | ~2019-04-01 | XMS | Encounter Summary ---
Demographics + + + | Address | [address] | | | [place] [address] | + + + | Home Phone [...] + | Author | [facility] | | | and Khurramana | + + + | Organization | [facility] | | | [...] Team Providers + +------+ + | Care Restaurant Shift Leader Name | Role | Phone | [...] Surgery Appointment | | 2018 | | [place] [address] | Plant Attendant | | | | | [place] | | | | | | [address] | | | | | | [phone] | | | +--------+ + + + [...] | | | | | | [place] [address] | | | | | | [phone] | | | | | | | | +--------+---------+ + + + | 05/16/ | Office | Orthopedic Surgery | Mark [place] | | | 2018 | Visit | | MD [address] | | | | | | [place] | | | | | | [place] [address] | | | | | | [phone] | | | | | | | [...]
--- OUTSIDE RECORDS SUMMARY | ~2019-04-01 | XMS | Clinical Summary ---
Demographics + + + | Address | [address] | | | [place] [address] | + + + | Home Phone [...] Team Providers + +------+ + | Care Linux Server Administrator Name | Role | Phone | + +------+ + PCP | Unavailable | + +------+ + Source Comments FIORELLA is fully live on both [facility] Ambulatory and [facility] InPatient.[facility] Allergies Not on File Medications [...] | OLOGY | | | | Case: [id number] | | | | | | | [...] [facility] | [address], [address] | [place] [address] | | | DERMATOPATHOLOGY | [address] [...] | [employer] | xxxxxxxxx | Effect | [phone] | [address] | PPO | | | [employer]ICA | | nestor | 4 | [address] | | | | RE PPO | | for | | [place], | | | | | | all | | [place] [address] | | | | | | dates [...] | 1936 | [phone] | [place] [address] | | | aissatou | | | 3 (Home) | | + +--------+ +--------+ + +
--- OUTSIDE RECORDS SUMMARY | ~2019-04-01 | XMS | Encounter Summary ---
Demographics + + + | Address | [address] | | | [place] [address] | + + + | Home Phone [...] Team Providers + +------+ + | Care Plumbing Mechanic Name | Role | Phone | [...] Rd | | | | | | [place], [place] | | | | | | [address] | | | +--------+ + + + [...]
--- OUTSIDE RECORDS SUMMARY | ~2019-04-01 | XMS | Encounter Summary ---
Demographics + + + | Address | [address] | | | [place] [address] | + + + | Home Phone [...] Author | [facility] | | | and Khurramana | + + + | Organization | [facility] | | [...] Team Providers + +------+ + | Care Emblem Drawer In Name | Role | Phone | + +------+ + | Susan Leos | PCP | | | PA-C | | | + +------+ + Encounter Details +--------+ + + + + | Date | Type | Department | Care Team | Description | +--------+ + + + + | 03/21/ | Preadmit | [facility] | Mark Montana | | | 2019 | Visit | [facility] | MD Alaina [address] | | | | | CLINIC [address] | [place] | | | | | [place], [place] | [place] [address] | | | | | [address] | [phone] | | | | | [phone] | | | +--------+ + + + [...] were given in the hospital. Wear them [id number] d ay for3 to 4weeks. To relieve discomfort at night, get up and move around. Tell all your healthcare providers including your dentist about your artificial join t before any procedure. You mayneed to take antibiotics before dental work and other medic al procedures to reduce the risk of infection. Arrangeto have your lobito removed [id number] after surgery. The lobito were u sed [...] ur hip joint. Use a raisedtoilet seat [id number] after surgery. Ask your healthcare provider if [...] put on socks and shoes. And don't pickle processor items from the floor. Use a cane, [...] draining from the incision Date Last Reviewed: 10/13/201719993999-9153 [employer]. [address] [place] [address], [place] [id number]. All righ ts reserved. This information is not intended as a substitute for professional medical care. Always follow your healthcare professional's instructions. Outpatient Medications Marked as Taking for the 03/21/19 encounter (Preadmit Visit) with [facility] PAS ROOM 2 Medication Sig Instructions acetaminophen [...] TAKE day of proced ure Multiple Vitamins-Minerals ([facility]) MISC Take by mouth. DO NOT TAKE day of procedure [place]-3 Fatty Acids (PRO NUTRIENTS OMEGA 3 PO) [...] | | | | | | [place] [address] | | | | | | [phone] | | | | | | | | +--------+---------+ + + + | 05/16/ | Office | Orthopedic Surgery | Mark Montana | | | 2018 | Visit | | MD Paul Foley | | | | | | [place] | | | | | | [place] [address] | | | | | | [phone] | | | | | | | | +--------+---------+ + + + | 06/30/ | Office | Cardiology | Griffin Smitha, DO | | | 2019 | Visit | | [address] | | | | | | [place] | | | | | | [address] | | | | | | | [...] Antibody | Testing performed at | | [facility] | | | Screen | [facility];[address] | | LABORATORY | | | | [address];[place] [address] | | | | + + + + + + + + | Specimen | + + | Blood | + + + + + + + | Performing | Address | City/State/Zipcode | Phone Number | | Organization | | | | + + + + + | [facility] | [address] | [place] [address] | [phone] | + + + + + MRSA [...] performed at [facility] | | LABORATORY | | | | [place] [address] | | | | | | [address] | | | | + + + + + + + + | Specimen | + + | Tissue | + + + + + + + | Performing | Address | City/State/Zipcode | Phone Number | | Organization | | | | + + + + + | [facility] | [address] | [place] [address] | [phone] | + + + + + Hemoglobin A1C (03/21/2019 15:33 PDT) + + + + + + | Component | Value | Ref Range | Performed | Pathologist | | | | | At | Signature | + + + + + + | Hemoglobin | 5.8Comment: HbA1c method | 4.0 - 6.0 % | [facility] | | | A1c | [...] | 120Comment: Estimated | <154 mg/dL | [facility] | | | Average | Average Glucose | | LABORATORY | | | Glucose | calculated from | | | | | | hemoglobin A1c by use of | | | | | | the ADArecommended | | | | | | formula.Testing | | | | | | performed at [facility], [address] | | | | | [facility], | | | | | | [place] [address] | | | | + + + + + + + + | Specimen | + + | Blood | + + + + + + + | Performing | Address | City/State/Zipcode | Phone Number | | Organization | | | | + + + + + | [facility] | [address] | [place] [address] | [phone] | + + + + + CBC [...] CITY;[address] | | | | | | [place] | | | | | | [address] | | | | + + + + + + + + | Specimen | + + | Blood | + + + + + + + | Performing | Address | City/State/Zipcode | Phone Number | | Organization | | | | + + + + + | [facility] | [address] | [place] [address] | [phone] | + + + + + Basic [...] CITY;[address] | | | | | | [facility];[place], [place] | | | | | | [address] | | | | + + + + + + + + | Specimen | + + | Blood | + + + + + + + | Performing | Address | City/State/Zipcode | Phone Number | | Organization | | | | + + + + + | [facility] | [address] | [place] [address] | [phone] | + + + + + ECG [...]
--- OUTSIDE RECORDS SUMMARY | ~2019-04-01 | XMS | Clinical Summary ---
Demographics + + + | Address | [address] | | | [place] [address] | + + + | Home Phone | | + + + | Preferred Language | Unknown | + + + | Marital Status | | + + + | Quaker Affiliation | Unknown | + + + | Race | Unknown | + + + | Ethnic Group | Unknown | + + + Author + + + | Author | [facility] (Historical as of | | | 01-29-19) | + + + | Organization | [facility] (Historical as of | | | 01-29-19) | + + + | Address | Unknown | + + + | Phone | Unavailable | + + + Support + + + + + | Name | Relationship | Address | Phone | + + + + + | Alejo Murguia | D[facility] | [address] | | | | | [place] [address] | | + + + + + Care Team Providers + +------+ + | Care Landing Signal Officer Name | Role | Phone | [...]
--- OUTSIDE RECORDS SUMMARY | ~2019-04-01 | XMS | Encounter Summary ---
Demographics + + + | Address | [address] | | | [place] [address] | + + + | Home Phone [...] + + | Author | [facility] | + + + | Organization | [facility] | + + + | [...] Providers + +------+ + | Care Restaurant Lead Name | Role | Phone | [...] Clinic Dermatology | | | | | [facility] | [address] [facility] | | | | | and Healing, | [place] | | | | | [facility] | [address] | | | | | Floor [place], [place] | | | | | | [address] | | | | | | [phone] | | | +--------+ + + + [...] | OLOGY | | | | Case: [id number] | | | | | | | [...] | [facility] | [address] | [place] [address] | | | DERMATOPATHOLOGY | [address] | | | + + + + + documented in this encounter Visit Diagnoses + + | Diagnosis | + + | Neoplasm of uncertain behavior of skin | + + documented in this encounter
[~2019-04-01 23:24] MED LIST changes: +COZAAR100 MG PO
--- OUTSIDE RECORDS SUMMARY | 2019-04-01 23:26 | XMS ---
PreManage Notification: JUANITA Security Historical Interpreter Events No recent Security Events currently on file CRITERIA MET - [facility] - 2 Visits in 30 Days CARE PROVIDERS ASHLEIGH GIRALDO Physician Integrity Assessor 03/01/2018-Current PHONE: [phone] Ashleigh Zamora Primary Care Current PAC PHONE: Unknown NAHUM PIMENTEL Primary Care 01/13/2014-Current PHONE: Unknown Khoi has no Care Guidelines for this patient. E.Vinita VISIT COUNT (12 MO.) 2 ESAU Barakat TOTAL 2 NOTE: Visits indicate total known visits. ED/UCC VISIT TRACKING (12 MO.) 04/01/2019 23:24 E[facility]U [facility] TYPE: Emergency COMPLAINT: - ALTERED MENTAL STATUS 03/23/2019 20:56 E[facility] TYPE: Emergency COMPLAINT: - HIGH BLOOD PRESSURE DIAGNOSES: - Allergy status to penicillin - Allergy status to sulfonamides status - Other mcfp (current) drug therapy - Hypothyroidism, unspecified - Allergy status to other antibiotic agents status - Essential (primary) hypertension - custodial (current) use of aspirin - Personal history of malignant melanoma of skin - Elevated blood-pressure reading, w/o diagnosis of htn - 1 Type 2 diabetes mellitus with diabetic neuropathy, unsp INPATIENT VISIT TRACKING (12 MO.) No inpatient visits to display in this time frame [email or web address]
== END 2019-04-02 07:00 | disposition home or self-care (01) ==
LOC: ED 23:24
DX: R41.82 Altered mental status, unspecified (principal); E11.40 Type 2 diabetes mellitus with diabetic neuropathy, unspecified; E03.9 Hypothyroidism, unspecified; Z85.828 Personal history of other malignant neoplasm of skin; Z88.0 Allergy status to penicillin; Z88.1 Allergy status to other antibiotic agents; Z88.2 Allergy status to sulfonamides; Z88.8 Allergy status to other drugs, medicaments and biological substances; Z79.899 Other long term (current) drug therapy
CPT/HCPCS: 51701; 80053; 81001; 85025; 99285-25; J7030

== ENCOUNTER 2019-04-06 11:56 | Inpatient (IN) | payer MEDICARE, MEDICAID ==
[~2019-04-06] VITALS: Ht 167.6 cm; Wt 80.4 kg
--- OUTSIDE RECORDS SUMMARY | ~2019-04-06 | XMS | Encounter Summary ---
Demographics + + + | Address | [address] | | | [place] [address] | + + + | Home Phone | | + + + | Preferred Language | Unknown | + + + | Marital Status | | + + + | Islam Affiliation | 1077 | + + + | Race | Unknown | + + + | Ethnic Group | Unknown | + + + Author + + + | Author | [facility] | | | and Khurramana | + + + | Organization | [facility] | | | and [place] [...] Team Providers + +------+ + | Care Greens Or Grounds Superintendent Name | Role | Phone | + +------+ + | Susan Leos | PCP | | | PA-C | | | + +------+ + Encounter Details +--------+ + + + + | Date | Type | Department | Care Team | Description | +--------+ + + + + | 03/21/ | Preadmit | [facility] | [place] | | | 2019 | Visit | [facility] | MD [address] | | | | | CLINIC [address] | [place] | | | | | [place], [place] | [place] [address] | | | | | [address] | [phone] | | | | | [phone] | | | +--------+ + + + [...] + + + | Blood Pressure | 192/58 | 03/21/20191533 PDT | + + + + | Pulse | 61 | 03/21/20191533 PDT | + + + + | Temperature | - | - | + + + + | Respiratory Rate | - | - | + + + + | Oxygen Saturation | 99% | 03/21/20191533 PDT | + + + + | Inhaled Oxygen | - | - | | Concentration | | | + + + + | Weight | 75 kg (165 lb 5.5 | 03/21/20191533 PDT | | | oz) | | + + + + | Height | 167.6 cm (5' 6") | 03/21/20191533 PDT | + + + + | Body Mass Index | 26.69 | 03/21/20191533 PDT | + + + + documented in this encounter Patient Instructions Instructions Aurora Deal RN - 03/21/2019Formatting of this note might be different fr om the original. Discharge Instructions for Total Hip Replacement Surgery You had a hip replacement surgery. 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 You may be recovering at home or in a rehabilitation facility. Eithe r way, you must take care of your new hip. Do this by moving and sitting the way you were ta ught in the hospital. Also, be sure to see your healthcare providerfor follow-up visits, a nd return to activity slowly. A total hip replacement is major surgery. So it will be a few months before you can move comfortably. Home care Take your pain medicine exactly as directed. Don t drive until your healthcare providersays it s OK. And never drivewhile guillermo ing opioid pain medicine. Wear the support stockings you were given in the hospital. Wear them [id number] d ay for3 to 4weeks. To relieve discomfort at night, get up and move around. Tell all your healthcare providers including your dentist about your artificial join t before any procedure. You mayneed to take antibiotics before dental work and other medic al procedures to reduce the risk of infection. Arrangeto have your lobito removed [id number] after surgery. The lobito were u sed to close the skin incision. Incision care Check your incision daily for redness, swelling, tenderness, or drainage. Prevent infection by washing your hands often. If an infection occurs, it will need to b e treated right away. Call your healthcare providerright awayif you think you may have a n infection. Symptoms include a fever, chills, redness, warmthor an incision that leaks wh ite, green, or yellow fluid. Don't soak yourincision in wateruntil your provider says it s OK. This means noh ot tubs, bathtubs, or swimming pools. Wait5 to 7 days after your surgery to start showering. Then shower as needed. Carefull y wash your incision with soap and water. Gently pat it dry. Don t rub the incision, or ap ply creams or lotions to it. And to prevent falling when showering, sit on a shower stool. Sitting and sleeping Don t sit for more than30 to 45minutes at a time. Use chairs with arms, and sit with your knees slightly lower than your hips. Don t sit on low or sagging chairs or couches. Don t lean forward while sitting. Don t cross your legs. Keep your feet flat on the floor. Don t turn your foot or leg inward. This stresses yo ur hip joint. Use a raisedtoilet seat [id number] after surgery. Ask your healthcare provider if it Nilson to sleep on your stomach or on the side that has the new hip. Use pillows between your legs when sleeping on your back or on your side. Sit on a firm cushion when you ride in a car and don t sittoo low. Try not to bend y our hip too much when getting in and out of the car. Moving safely Don t bend at the hip when you bend over. Don't bend at the waist to put on socks and shoes. And don't roll picker items from the floor. Use a cane, crutches, a walker, or handrails until your balance, flexibility, and streng th improve. And remember to ask for help from others when you need it. Free up your hands so that you can use them to keep balance. Use a victor manuel pack, apron, or pockets to carry things. Follow your healthcare provider sorders about how much weight to put on the affected leg. Walk often and doprescribed exercises as instructed. Arrange your household to keep the items you need within reach. Remove electrical cords, throw rugs, and anything else that may cause you to fall. Use nonslip bath mats, grab bars, a raisedtoilet seat, and a shower chair in your bath room. Follow-up Make a follow-up appointment as directed by your healthcare provider. Call 911 Call 911 right away if you have any of the following: Chest pain Shortness of breath When to call your healthcare provider Call your healthcare providerright awayif you have any of the following: Hip pain gets worse Pain or swelling in your calf or leg not related to your incision Tenderness or redness in your calf Fever of 100.4F (38C) or higher, or as directed by your healthcare provider Shaking chills Swelling or redness at the incision site gets worse Fluid draining from the incision Date Last Reviewed: 10/13/201719990020-7812 [employer]. [address] [place] [address], [place] [id number]. All righ ts reserved. This information is not intended as a substitute for professional medical care. Always follow your healthcare professional's instructions. Outpatient Medications Marked as Taking for the 03/21/19 encounter (Preadmit Visit) with [facility] 2 Medication Sig Instructions acetaminophen (TYLENOL) 500 mg tablet Take 2 tablets by mouth every 8 hours for 30 days . TAKE day of procedure aspirin 81 MG tablet Take 81 mg by mouth Daily. HOLD prior to procedure. Take last dose 5-7 days prior to surgery. atenolol (TENORMIN) 25 mg tablet Take 25 mg by mouth Daily. TAKE day of procedure Calcium Carb-Cholecalciferol (CALCIUM 500 + D3 PO) Take 1 tablet by mouth 2 times daily . DO NOT TAKE day of procedure [employer] TRIPLE MAGNESIUM COMPLEX PO Take by mouth. DO NOT TAKE day of procedure docusate sodium (COLACE) 100 mg capsule Take 100 mg by mouth Twice daily as needed. DO NOT TAKE day of procedure gabapentin (NEURONTIN) 300 mg capsule Take 300 mg by mouth 3 times daily. TAKE day of p rocedure Garlic 1000 MG CAPS Take 1 tablet by mouth Daily. HOLD prior to procedure. Take last do se 5-7 days prior to surgery. levothyroxine (SYNTHROID, LEVOTHROID) 100 mcg tablet Take 100 mcg by mouth every mornin g (before breakfast). TAKE day of procedure losartan (COZAAR) 50 mg tablet Take 50 mg by mouth Daily. DO NOT TAKE day of procedure Multiple Vitamin (THERAGRAN PO) Take 1 tablet by mouth Daily. DO NOT TAKE day of proced ure Multiple Vitamins-Minerals ([facility]) MISC Take by mouth. DO NOT TAKE day of procedure Drifting-3 Fatty Acids (PRO NUTRIENTS OMEGA 3 PO) Take 1 tablet by mouth Daily. HOLD prior to procedure. Take last dose 5-7 days prior to surgery. omeprazole (PRILOSEC) 20 mg capsule Take 20 mg by mouth every morning (before breakfast ). TAKE day of procedure polyethylene glycol (MIRALAX) packet Take 1 diluted packet by mouth Daily as needed for Constipation for up to 7 days. DO NOT TAKE day of procedure POTASSIUM CITRATE PO Take by mouth. DO NOT TAKE day of procedure Psyllium (METAMUCIL PO) Take by mouth Daily. DO NOT TAKE day of procedure sennosides-docusate sodium (SENOKOT-S) 8.6-50 MG tablet Take 1 tablet by mouth 2 times daily for 30 days. DO NOT TAKE day of procedure traMADol (ULTRAM) 50 mg tablet Take 1 tablet by mouth every 6 hours for 15 days. TAKE d ay of procedure documented in this encounter Plan of Treatment +--------+---------+ + + + | Date | Type | Specialty | Care Team | Description | +--------+---------+ + + + | 04/11/ | Office | Orthopedic Surgery | Gus Orozco, | | | 2018 | Visit | | [place] | | | | | | [place] | | | | | | [place] [address] | | | | | | [phone] | | | | | | | | +--------+---------+ + + + | 05/16/ | Office | Orthopedic Surgery | Mark [place] | | | 2018 | Visit | | MD Paul Foley | | | | | | [place] | | | | | | [place] [address] | | | | | | [phone] | | | | | | | | +--------+---------+ + + + | 06/30/ | Office | Cardiology | Griffin Smitha, DO | | | 2019 | Visit | | [address] | | | | | | [place] | | | | | | [address] | | | | | | | | +--------+---------+ + + + documented as of this encounter Procedures + +--------+ + + + | Procedure Name | Priori | Date/Time | Associated Diagnosis | Comments | | | ty | | | | + +--------+ + + + | MRSA NAAT | [facility] | 03/21/2019 | | Results for this | | | | 15:37 PDT | | procedure are in the | | | | | | results section. | + +--------+ + + + | TYPE AND SCREEN | [facility] | 03/21/2019 | | Results for this | | | | 15:37 PDT | | procedure are in the | | | | | | results section. | + +--------+ + + + | CBC WITH | [facility] | 03/21/2019 | | Results for this | | DIFFERENTIAL | | 15:33 PDT | | procedure are in the | | | | | | results section. | + +--------+ + + + | HEMOGLOBIN A1C | [facility] | 03/21/2019 | | Results for this | | | | 15:33 PDT | | procedure are in the | | | | | | results section. | + +--------+ + + + | BASIC METABOLIC | [facility] | 03/21/2019 | | Results for this | | PANEL | | 15:33 PDT | | procedure are in the | | | | | | results section. | + +--------+ + + + | ECG 12 LEAD | Timed | 03/21/2019 | | Results for this | | | | 15:14 PDT | | procedure are in the | | | | | | results section. | + +--------+ + + + documented in this encounter Results Type and Screen (03/21/2019 15:37 PDT) + + + + + + | Component | Value | Ref Range | Performed | Pathologist | | | | | At | Signature | + + + + + + | ABO Rh | O POSITIVE | | [facility] | | | | | | LABORATORY | | + + + + + + | Antibody | NEGATIVE | | [facility] | | | Screen | | | LABORATORY | | + + + + + + | Antibody | Testing performed at | | [facility] | | | Screen | [facility];[address] | | LABORATORY | | | | [address];[place] [address] | | | | + + + + + + + + | Specimen | + + | Blood | + + + + + + + | Performing | Address | City/State/Zipcode | Phone Number | | Organization | | | | + + + + + | [facility] | [address] | [place] [address] | [phone] | + + + + + MRSA NAAT (03/21/2019 15:37 PDT) + + + + + + | Component | Value | Ref Range | Performed | Pathologist | | | | | At | Signature | + + + + + + | SOURCE: | NARES(NOSE) | | [facility] | | | | | | LABORATORY | | + + + + + + | Result | NEGATIVEComment: Testing | MRSNEG | [facility] | | | | performed at [facility] | | LABORATORY | | | | [place] | | | | | | [address] | | | | + + + + + + + + | Specimen | + + | Tissue | + + + + + + + | Performing | Address | City/State/Zipcode | Phone Number | | Organization | | | | + + + + + | [facility] | [address] | [place] [address] | [phone] | + + + + + Hemoglobin A1C (03/21/2019 15:33 PDT) + + + + + + | Component | Value | Ref Range | Performed | Pathologist | | | | | At | Signature | + + + + + + | Hemoglobin | 5.8Comment: HbA1c method | 4.0 - 6.0 % | [facility] | | | A1c | is certified by [employer] | | LABORATORY | | | | and traceable to the | | | | | | DCCT reference | | | | | | method.ADA guidelines | | | | | | indicate: | | | | | | Prediabetes: 5.7 - | | | | | | 6.4 Diabetes: | | | | | | >6.4 Glycemic | | | | | | control for adults with | | | | | | diabetes: <7.0Effective | | | | | | 06/30/2018: Note New | | | | | | Method | | | | + + + + + + | Estimated | 120Comment: Estimated | <154 mg/dL | [facility] | | | Average | Average Glucose | | LABORATORY | | | Glucose | calculated from | | | | | | hemoglobin A1c by use of | | | | | | the ADArecommended | | | | | | formula.Testing | | | | | | performed at [facility], [address] | | | | | | [facility], | | | | | | [place] [address] | | | | + + + + + + + + | Specimen | + + | Blood | + + + + + + + | Performing | Address | City/State/Zipcode | Phone Number | | Organization | | | | + + + + + | [facility] | [address] | [place] [address] | [phone] | + + + + + CBC with Differential (03/21/2019 15:33 PDT) + + + + + + | Component | Value | Ref Range | Performed | Pathologist | | | | | At | Signature | + + + + + + | WBC | 7.06 | 3.80 - 11.00 | [facility] | | | | | K/uL | LABORATORY | | + + + + + + | RBC | 4.69 | 3.70 - 5.10 | [facility] | | | | | M/uL | LABORATORY | | + + + + + + | Hemoglobin | 11.4 | 11.3 - 15.5 | [facility] | | | | | g/dL | LABORATORY | | + + + + + + | Hematocrit | 35.7 | 34.0 - 46.0 % | [facility] | | | | | | LABORATORY | | + + + + + + | MCV | 76.2 (L) | 80.0 - 100.0 fl | [facility] | | | | | | LABORATORY | | + + + + + + | MCH | 24.3 (L) | 27.0 - 34.0 pg | [facility] | | | | | | LABORATORY | | + + + + + + | MCHC | 31.9 (L) | 32.0 - 35.5 | [facility] | | | | | g/dL | LABORATORY | | + + + + + + | RDW-SD | 39.4 | 37 - 53 fl | [facility] | | | | | | LABORATORY | | + + + + + + | Platelet | 294 | 150 - 400 K/uL | [facility] | | | Count | | | LABORATORY | | + + + + + + | MPV | 8.0 | fl | [facility] | | | | | | LABORATORY | | + + + + + + | Diff Type | AUTOMATED | | [facility] | | | | | | LABORATORY | | + + + + + + | % | 42.41 | % | [facility] | | | Neutrophils | | | LABORATORY | | + + + + + + | % | 37.76 | % | [facility] | | | Lymphocytes | | | LABORATORY | | + + + + + + | Monocyte % | 6.28 | % | [facility] | | | | | | LABORATORY | | + + + + + + | Eosinophils | 11.55 | % | [facility] | | | % | | | LABORATORY | | + + + + + + | Basophils % | 2.00 | % | [facility] | | | | | | LABORATORY | | + + + + + + | Neutrophils | 2.99 | 1.90 - 7.40 | [facility] | | | , Absolute | | K/uL | LABORATORY | | + + + + + + | Absolute | 2.66 | 1.00 - 3.90 | [facility] | | | Lymphocytes | | K/uL | LABORATORY | | + + + + + + | Absolute | 0.44 | 0.00 - 0.80 | [facility] | | | Monocytes | | K/uL | LABORATORY | | + + + + + + | Eosinophils | 0.82 (H) | 0.00 - 0.50 | [facility] | | | , Absolute | | K/uL | LABORATORY | | + + + + + + | Basophils, | 0.14 (H) | 0.00 - 0.10 | [facility] | | | Absolute | | K/uL | LABORATORY | | + + + + + + | RBC | 1+ | | [facility] | | | Morphology | Comment: | | LABORATORY | | | | HYPO | | | | | | 2+ | | | | | | MICRO | | | | | | 1+ | | | | | | ACANTHO | | | | | | 1+ | | | | | | OVALO | | | | | | | | | | + + + + + + | Platelet | ADEQUATE | | [facility] | | | Estimate | | | LABORATORY | | + + + + + + | Comment | SLIDE SCANNED, AGREES | | [facility] | | | | WITH AUTOMATED | | LABORATORY | | | | RESULTS.Comment: Testing | | | | | | performed at [facility];[address] | | | | | | [address];[place] | | | | | | [address] | | | | + + + + + + + + | Specimen | + + | Blood | + + + + + + + | Performing | Address | City/State/Zipcode | Phone Number | | Organization | | | | + + + + + | [facility] | [address] | [place] [address] | [phone] | + + + + + Basic Metabolic Panel (03/21/2019 15:33 PDT) + + + + + + | Component | Value | Ref Range | Performed | Pathologist | | | | | At | Signature | + + + + + + | Na | 139 | 135 - 145 | [facility] | | | | | mmol/L | LABORATORY | | + + + + + + | K | 3.8 | 3.5 - 4.9 | [facility] | | | | | mmol/L | LABORATORY | | + + + + + + | Cl | 102 | 99 - 109 mmol/L | [facility] | | | | | | LABORATORY | | + + + + + + | CO2 | 29 | 23 - 32 mmol/L | [facility] | | | | | | LABORATORY | | + + + + + + | Anion Gap | 12 | 5 - 20 mmol/L | [facility] | | | | | | LABORATORY | | + + + + + + | Glucose | 100 (H) | 65 - 99 mg/dL | [facility] | | | | | | LABORATORY | | + + + + + + | BUN | 7 (L) | 8 - 25 mg/dL | [facility] | | | | | | LABORATORY | | + + + + + + | Creatinine | 0.70 | 0.50 - 1.00 | [facility] | | | | | mg/dL | LABORATORY | | + + + + + + | BUN/Creatin | 10 | | [facility] | | | ine Ratio | | | LABORATORY | | + + + + + + | Calcium | 9.5 | 8.5 - 10.5 | [facility] | | | | | mg/dL | LABORATORY | | + + + + + + | Estimated | >60Comment: GFR <60: | >60 | [facility] | | | GFR | CHRONIC KIDNEY DISEASE, | mL/min/1.73m2 | LABORATORY | | | | IF FOUND OVER A 3 MONTH | | | | | | PERIOD.GFR <15: KIDNEY | | | | | | FAILURE.FOR | | | | | | AMERICANS, MULTIPLY THE | | | | | | CALCULATED GFR BY | | | | | | 1.210.This eGFR is | | | | | | calculated using the | | | | | | MDRD IDMS traceable | | | | | | equation.Testing | | | | | | performed at [facility];[address] | | | | | [facility];[place], [place] | | | | | | [address] | | | | + + + + + + + + | Specimen | + + | Blood | + + + + + + + | Performing | Address | City/State/Zipcode | Phone Number | | Organization | | | | + + + + + | [facility] | [address] | [place] [address] | [phone] | + + + + + ECG 12 lead (03/21/2019 15:14 PDT) + + + + + + | Component | Value | Ref Range | Performed | Pathologist | | | | | At | Signature | + + + + + + | VENTRICULAR | 63 | BPM | [facility] | | | RATE EKG | | | | | + + + + + + | ATRIAL RATE | 63 | BPM | [facility] | | + + + + + + | P-R | 184 | ms | [facility] | | | INTERVAL | | | | | + + + + + + | QRS | 84 | ms | [facility] | | | DURATION | | | | | + + + + + + | Q-T | 408 | ms | [facility] | | | INTERVAL | | | | | + + + + + + | Q-T | 417 | ms | [facility] | | | INTERVAL | | | | | | (CORRECTED) | | | | | + + + + + + | P WAVE AXIS | 67 | degrees | [facility] | | + + + + + + | QRS AXIS | 44 | degrees | [facility] | | + + + + + + | T AXIS | 35 | degrees | [facility] | | + + + + + + | INTERPRETAT | Normal sinus | | [facility] | | | ION TEXT | rhythmNormal ECGNo | | | | | | previous ECGs | | | | | | availableConfirmed by | | | | | | KEITH LANDERS ([id number]) on | | | | | | 03/22/2019 4:46:44 PM | | | | + + + [...]
--- OUTSIDE RECORDS SUMMARY | ~2019-04-06 | XMS | Clinical Summary ---
Demographics + + + | Address | [address] | | | [place] [address] | + + + | Home Phone | | + + + | Preferred Language | Unknown | + + + | Marital Status | | + + + | Oriental Orthodox Affiliation | Unknown | + + + [...] + + + | Chrissie Leos | ECON | [place] | | + + + + + Care Team Providers + +------+ + | Care Wet Suit Gluer Name | Role | Phone | + +------+ + PCP | Unavailable | + +------+ + Source Comments FIORELLA is fully live on both [facility] and [facility] In[facility] Allergies Not on File Medications Not on file Active Problems Not on file Encounters +--------+ + + + + | Date | Type | Specialty | Care Team | Description | +--------+ + + + + | 01/13/ | Lab | Dermatology | Lefty Nieves V, | | | 2018 | Requisition | | [place] | | +--------+ + + + + from Last 3 Months Social History + +-------+ +--------+------+ | Tobacco [...] recent travel history available. | + + Last Filed Vital Signs Not on file Plan of Treatment + + + + + | Health Maintenance | Due Date | Last Done | Comments | + + + + + | Pneumococcal | | | | | vaccination (1 of 2 | 9 | | | | - PCV13) | | | | + + + + + | Influenza (Flu) | | | | | vaccination (#1) | 9 | | | + + + + + Procedures + +--------+ + + + | Procedure Name | Priori | Date/Time | Associated Diagnosis | Comments | | | ty | | | | + +--------+ + + + | DERM PATHOLOGY | Routin | 01/12/2019 | Neoplasm of | Results for this | | | e | | uncertain behavior | procedure are in the | | | | | of skin | results section. | + +--------+ + + + from Last 3 Months Results DERM PATHOLOGY (01/12/2019) + + + + + + | Component | Value | Ref Range | Performed | Pathologist | | | | | At | Signature | + + + + + + | Clinical | Sebaceous cyst. | | [facility] | | | History | | | DERMATOPATH | | | | | | OLOGY | | + + + + + + | Specimen | Dermatopathology | | [facility] | | | Description | | | DERMATOPATH | | | | | | OLOGY | | | | Case: [id number] | | | | | | | | | | | | | | | | | | Authorizing Provider: | | | | | | ALEKSANDAR Sepulveda | | | | | | Collected: | | | | | | 01/12/2019 | | | | | | | | | | | | Ordering Location: | | | | | | Dermatopathology | | | | | | Received: | | | | | | 01/13/2019 | | | | | | 1225 | | | | | | Pathologist: | | | | | | Laurie Garcia | | | | | | Keo James | | | | | | | | | | | | | | | | | | | | | | | | | | | | | | MD | | | | | | | | | | | | | | | | | | | | | | | | | | | | | | Specimen: Lt | | | | | | lateral back of neck, | | | | | | excision | | | | | | | | | | | | | | | | | | | | | | + + + + + + | Final | FOLLICULAR CYST, | | [facility] | Electronically | | Pathologic | INFUNDIBULAR TYPE. | | DERMATOPATH | signed by | | Diagnosis | | | OLOGY | Laurie Garcia | | | | | | Keo James | | | | | | MD on 01/14/2019 | | | | | | at 8:40 AM | + + + + + + | Gross | Received in formalin is | | [facility] | | | Description | a specimen labeled with | | DERMATOPATH | | | | the patient's name:A: | | OLOGY | | | | Specimen is labeled "L | | | | | | lateral base of neck" | | | | | | and consists of a 7 x 5 | | | | | | x 5 mm firm benitez-brown | | | | | | nodule. The tissue is | | | | | | inked blue and bisected, | | | | | | revealing a firm but | | | | | | friable cut surface and | | | | | | a wall measuring less | | | | | | than 1 mm in greatest | | | | | | thickness. Sections are | | | | | | entirely submitted in | | | | | | cassette A1. | | | | + + + + + + | Microscopic | There is a cyst lined by | | [facility] | | | | epithelium identical to | | DERMATOPATH | | | Description | the epidermis and to | | OLOGY | | | | the follicular | | | | | | infundibulum and filled | | | | | | with laminated cornified | | | | | | cells. | | | | + + + + + + | Ancillary | Analyte specific | | [facility] | | | Information | reagents are used in | | DERMATOPATH | | | | many laboratory tests | | OLOGY | | | | necessary for standard | | | | | | medical care. This test | | | | | | was developed and its | | | | | | performance | | | | | | characteristics | | | | | | determined by [facility] | | | | | | laboratories. It has | | | | | | not been cleared or | | | | | | approved by the [place] Food | | | | | | and Drug Administration | | | | | | (FDA). FDA does not | | | | | | require this test to go | | | | | | through premarket FDA | | | | | | review. This test is | | | | | | used for clinical | | | | | | purposes. It should not | | | | | | be regarded as | | | | | | investigational or for | | | | | | research. This | | | | | | laboratory is certified | | | | | | under the Clinical | | | | | | Laboratory Improvement | | | | | | Amendments (CLIA) as | | | | | | qualified to perform | | | | | | high complexity clinical | | | | | | laboratory testing. | | | | + + + + + + + + | Specimen | + + | Biopsy | + + + + + + + | Performing | Address | City/State/Zipcode | Phone Number | | Organization | | | | + + + + + | [facility] | Mailcode [address], [address] | [place] [address] | | | DERMATOPATHOLOGY | [address] | | | + + + + + from Last 3 Months Insurance + +--------+ +--------+ + +------+ | Payer | Benefi | Subscriber | Effect | Phone | Address | Type | | | t Plan | ID | nest[place] | | | | | | / | | Dates | | | | | | Group | | | | | | + +--------+ +--------+ + +------+ | [employer] | MODA | xxxxxxxxx | Effect | [phone] | [address] | PPO | | | MEDICA | | nest[place] | [address] | [address] | | | | RE PPO | | for | | [place], | | | | | | all | | [place] [address] | | | | | | dates | | | | + +--------+ +--------+ + +------+ + +--------+ +--------+ + + | Guarantor Name | Accoun | Relation to | Date | Phone | Billing Address | | | t Type | Patient | of | | | | | | | | | | + +--------+ +--------+ + + | Scarlet Murguia D | Person | Self [birth year] | [birth year] | | | al/Fam | | 1936 | [phone] | [place] [address] | | | aissatou | | | 3 (Home) | | + +--------+ +--------+ + +
--- OUTSIDE RECORDS SUMMARY | ~2019-04-06 | XMS | Encounter Summary ---
Demographics + + + | Address | [address] | | | [place] [address] | + + + | Home Phone | | + + + | Preferred Language | Unknown | + + + | Marital Status | | + + + | Yazidism Affiliation | [id number] | + + + | Race | Unknown | + + + | Ethnic Group | Unknown | + + + Author + + + | Author | [facility] | | | and Khurramana | + + + | Organization | [facility] | | | and [...] Team Providers + +------+ + | Care Research Laboratory Specialist Name | Role | Phone | + [...] | | | | | from | [address] | [address] | | | | | [place] at | [address] | [address] | | | | | [facility] | [place], | [place], [place] | | | | | Procedures | [place] | [address] Phone: | | | | | NEW PATIENT | [address] | [phone] | | | | | | Phone: | Fax: | | | | | | [phone] | [phone] | | | | | | Fax: | | | | | | | [phone] | | + +--------+ + + + + Encounter Details +--------+---------+ + + + | Date | Type | Department | Care Team | Description | +--------+---------+ + + + | 09/30/ | Office | [facility] | Mark Montana | 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[place], [place]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 (Primary | | | | [address] | [place] [address] | Dx) | | | | [phone] | [phone] | | | | | | | [...] + | Blood Pressure | 180/72 | 03/14/20191530 PDT | + + + + | Pulse | 57 | 03/14/20191530 PDT | + + + + | Temperature | - | - | + + + + | Respiratory Rate | 16 | 03/14/20191530 PDT | + + + + | Oxygen Saturation | 99% | 03/14/20191530 PDT | + + + + | Inhaled Oxygen | - | - | | Concentration | | | + + + + | Weight | 75.2 kg (165 lb 12.8 | 03/14/20191530 PDT | | | oz) | | + + + + | Height | 167.6 cm (5' 6") | 03/14/20191530 PDT | + + + + | Body Mass Index | 26.76 | 03/14/2019 1531 PDT | + + + + documented in this encounter Progress Notes Mark Montana MD - 03/14/2019 1530 PDT 03/14/2019 Chief Complaint Chief Complaint Patient [...] Procedure: ERCP; Surgeon: Gregor Mccord MD; Location: [facility] ERCP N/A 10/14/2016 Procedure: ERCP w/ stent pull; Surgeon: Gregor Mccord MD; Location: [facility] PARTIAL HYSTERECTOMY 1972 RECTOCELE REPAIR 1991 TAILBONE 1973 broken, partial [...] mouth Daily., Disp: , Rfl: Multiple Vitamins-Minerals ([facility]) MISC, Take by mouth., Disp: , Rfl: [place]-3 Fatty Acids (PRO NUTRIENTS OMEGA 3 PO), Take 1 tablet by mouth Daily., Disp: , Rfl: omeprazole (PRILOSEC) 20 mg capsule, Take 20 mg by mouth every morning (before break)., Disp: , Rfl: ondansetron (ZOFRAN ODT) 4 [...] Request - OR/ENDO/ASC/OB: Posterior Total Hip Arthroplasty: [employer] 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 Hussein chin risks and benefits of total hip arthroplasty were discussed with the patient. She would l jackson to proceed with a left posterior total hip arthroplasty this month. She was previously o n the schedule with Dr. Ortega, but because of insurance issues, she was [...] | 2018 | Visit | | [address] | | | | | | [address] | | | | | | [place] [address] | | | | | | [phone] | | | | | | | | +--------+---------+ + + + | 05/16/ | Office | Orthopedic Surgery | Mark Montana | | | 2018 | Visit | | MD Paul Foley | | | | | | [address] | | | | | | [place] [address] | | | | | | [phone] | | | | | | | | +--------+---------+ + + + | 06/30/ | Office | Cardiology | Smitha Griffin DO | | | 2019 | Visit | | [address] | | | | | | [place] | | | | | | [address] | | | | | | | | +--------+---------+ + + + documented as of this encounter Results XR Hip Left 2-3 Views (03/14/2019 15:48 PDT) + + | Specimen | + [...]
--- OUTSIDE RECORDS SUMMARY | ~2019-04-06 | XMS | Clinical Summary ---
Demographics + + + | Address | [address] | | | [place] [address] | + + + | Home Phone | | + + + | Preferred Language | Unknown | + + + | Marital Status | | + + + | Restoration Affiliation | Unknown | + + + | Race | Unknown | + + + | Ethnic Group | Unknown | + + + Author + + + | Author | [facility] (Historical as of | | | 01-29-19) | + + + | Organization | [facility] (Historical as of | | | 01-29-19) | + + + | Address | Unknown | + + + | Phone | Unavailable | + + + Support + + + + + | Name | Relationship | Address | Phone | + + + + + | Alejo Murguia | DRIK | [address] | | | | | [place] [address] | | + + + + + Care Team Providers + +------+ + | Care Process Treater Name | Role | Phone | + [...]
--- OUTSIDE RECORDS SUMMARY | ~2019-04-06 | XMS | Clinical Summary ---
Demographics + + + | Address | [address] | | | [place] [address] | + + + | Home Phone | | + + + | Preferred Language | Unknown | + + + | Marital Status | | + + + | Yazidism Affiliation | 1077 | + + + | Race | Unknown | + + + | Ethnic Group | Unknown | + + + Author + + + | Author | [facility] | | | and Khurramana | + + + | Organization | [facility] | | | and [...] Team Providers + +------+ + | [employer] Name | Role | Phone | + +------+ + | Susan Leos | PCP | | | PA-C | | | + +------+ + Allergies [...] Levofloxacin | Hives, Rash | Medium | 02/01/20 | | | | | | 16 | | + + + + + + | Penicillins | Hives, Rash | Medium | 02/01/20 | | | | | | 16 | | + + + + + + | Sulfa Antibiotics | Hives, Rash | Medium | 02/01/20 | | | | | | 16 | | + + + + + + | Verapamil Hcl Er | Hives, Rash | Medium | 02/01/20 | | | | | | 16 | | + + + + + + Medications + + + +---------+------+------+-------+ | Medication | Sig | Dispensed | Refills | Star | End | Statu | | | | | | t | Date | s | | | | | | Date | | | + + + +---------+------+------+-------+ | levothyroxine | Take 100 mcg by | | 0 | | | Activ | | (SYNTHROID, | mouth every morning | | | | | e | | LEVOTHROID) 100 mcg | (before breakfast). | | | | | | | tablet | | | | | | | + + + +---------+------+------+-------+ | losartan (COZAAR) | Take 50 mg by mouth | | 0 | | | Activ | | 50 mg tablet | Daily. | | | | | e | + + + +---------+------+------+-------+ | atenolol | Take 25 mg by mouth | | 0 | | | Activ | | (TENORMIN) 25 mg | Daily. | | | | | e | | tablet | | | | | | | + + + +---------+------+------+-------+ | omeprazole | Take 20 mg by mouth | | 0 | | | Activ | | (PRILOSEC) 20 mg | every morning | | | | | e | | capsule | (before breakfast). | | | | | | + + + +---------+------+------+-------+ | gabapentin | Take 300 mg by mouth | | 0 | | | Activ | | (NEURONTIN) 300 mg | 3 times daily. | | | | | e | | capsule | | | | | | | + + + +---------+------+------+-------+ | docusate sodium | Take 100 mg by mouth | | 0 | | | Activ | | (COLACE) 100 mg | Twice daily as | | | | | e | | capsule | needed. | | | | | | + + + +---------+------+------+-------+ | Multiple | Take by mouth. | | 0 | | | Activ | | Vitamins-Minerals | | | | | | e | | ([facility]) | | | | | | | | MISC | | | | | | | + + + +---------+------+------+-------+ | [place]-3 Fatty | Take 1 tablet by | | 0 | | | Activ | | Acids (PRO NUTRIENTS | mouth Daily. | | | | | e | | OMEGA 3 PO) | | | | | | | + + + +---------+------+------+-------+ | Calcium | Take 1 tablet by | | 0 | | | Activ | | Carb-Cholecalciferol | mouth 2 times daily. | | | | | e | | (CALCIUM 500 + D3 | | | | | | | | PO) | | | | | | | + + + +---------+------+------+-------+ | Multiple Vitamin | Take 1 tablet by | | 0 | | | Activ | | (THERAGRAN PO) | mouth Daily. | | | | | e | + + + +---------+------+------+-------+ | Garlic 1000 MG | Take 1 tablet by | | 0 | | | Activ | | CAPS | mouth Daily. | | | | | e | + + + +---------+------+------+-------+ | Psyllium | Take by mouth | | 0 | | | Activ | | (METAMUCIL PO) | Daily. | | | | | e | + + + +---------+------+------+-------+ | ondansetron | Take 4 mg by mouth | | 0 | 02/1 | | Activ | | (ZOFRAN ODT) 4 mg | every 8 hours as | | | 1/20 | | e | | disintegrating | needed. | | | 17 | | | | tablet | | | | | | | + + + +---------+------+------+-------+ | [facility] TRIPLE | Take by mouth. | | 0 | | | Activ | | MAGNESIUM COMPLEX PO | | | | | | e | + + + +---------+------+------+-------+ | POTASSIUM CITRATE | Take by mouth. | | 0 | | | Activ | | PO | | | | | | e | + + + +---------+------+------+-------+ | Cetirizine HCl | Take 10 mg by mouth | | 0 | | | Activ | | (ALLERGY RELIEF) 10 | Daily. | | | | | e | | MG liqui-gel | | | | | | | + + + +---------+------+------+-------+ | acetaminophen | Take 2 tablets by | 180 | 0 | 10/0 | 11/0 | Activ | | (TYLENOL) 500 mg | mouth every 8 hours | tablet | | 7/20 | 6/20 | e | | tablet | for 30 days. | | | 19 | 19 | | + + + +---------+------+------+-------+ | aspirin 325 MG EC | Take 1 tablet by | 42 | 0 | 10/0 | 11/1 | Activ | | tablet | mouth Daily for 42 | tablet | | 7/20 | 8/20 | e | | | days. For | | | 19 | 19 | | | | post-operative DVT | | | | | | | | prophylaxis | | | | | | + + + +---------+------+------+-------+ | | Take 1 tablet by | 60 | 0 | 10/0 | 11/0 | Activ | | sennosides-docusate | mouth 2 times daily | tablet | | 7/20 | 6/20 | e | | sodium (SENOKOT-S) | for 30 days. | | | 19 | 19 | | | 8.6-50 MG tablet | | | | | | | + + + +---------+------+------+-------+ | polyethylene | Take 1 diluted | 7 | 0 | 10/1 | 10/2 | Activ | | glycol (MIRALAX) | packet by mouth | packet | | 7/20 | 4/20 | e | | packet | Daily as needed for | | | 19 | 19 | | | | Constipation for up | | | | | | | | to 7 days. | | | | | | + + + +---------+------+------+-------+ | | Take 1 tablet by | | 0 | | 10/1 | Disco | | HYDROcodone-acetamin | mouth every 6 hours | | | | 5/20 | ntinu | | ophen (NORCO) 5-325 | as needed for Pain. | | | | 19 | ed | | mg per tablet | | | | | | | + + + +---------+------+------+-------+ | PROVENTIL HFA 108 | Inhale 1 puff into | | 0 | 01/1 | 10/1 | Disco | | (90 Base) MCG/ACT | the lungs every 4 | | | 2/20 | 5/20 | ntinu | | inhaler | hours as needed. | | | 17 | 19 | ed | + + + +---------+------+------+-------+ | ASPIRIN 81 PO | Take by mouth. | | 0 | | 10/0 | Disco | | | | | | | 7/20 | ntinu | | | | | | | 19 | ed | + + + +---------+------+------+-------+ | traMADol (ULTRAM) | Take 1 tablet by | 60 | 0 | 10/0 | 10/2 | Expir | | 50 mg tablet | mouth every 6 hours | tablet | | 7/20 | 2/20 | ed | | | for 15 days. | | | 19 | 19 | | + + + +---------+------+------+-------+ | oxyCODONE (OXY-IR) | Take 1-2 capsules by | 60 | 0 | 10/1 | 10/1 | Disco | | 5 MG capsule | mouth every 4 hours | capsule | | 5/20 | 5/20 | ntinu | | | as needed for up to | | | 19 | 19 | ed | | | 14 days. | | | | | | + + + +---------+------+------+-------+ | polyethylene | Take 1 diluted | 7 | 0 | 10/0 | 10/1 | Disco | | glycol (MIRALAX) | packet by mouth | packet | | 7/20 | 7/20 | ntinu | | packet | Daily as needed for | | | 19 | 19 | ed | | | Constipation for up | | | | | | | | to 7 days. | | | | | | + + + +---------+------+------+-------+ | ondansetron | Take 1 tablet by | 20 | 0 | 10/0 | 10/1 | Disco | | (ZOFRAN) 4 mg tablet | mouth every 8 hours | tablet | | 7/20 | 5/20 | ntinu | | | as needed for Nausea | | | 19 | 19 | ed | | | for up to 7 days. | | | | | | + + + +---------+------+------+-------+ | aspirin 81 MG | Take 81 mg by mouth | | 0 | | 03/15 | Disco | | tablet | Daily. | | | | 01/01 | ntinu | | | | | | | 19 | ed | + + + +---------+------+------+-------+ Active Problems + + + | Problem | Noted Date | + + + | Post-traumatic osteoarthritis of left hip | 03/21/2019 | + + + | Left hip pain | 03/15/2019 | + + + + + | Overview: Added automatically from request for surgery | | [id number] | + + + + + | Choledocholithiasis | 09/25/2016 | + + + | Aortic stenosis | 09/25/2016 | + + + | HTN (hypertension) | 09/25/2016 | + + + | GERD (gastroesophageal reflux disease) | 09/25/2016 | + + + | Hyperlipidemia | 09/25/2016 | + + + | Type 2 diabetes mellitus | 09/25/2016 | + + + | [...] radiculopathy | 02/04/2016 | + + + Encounters +--------+ + + + + | Date | Type | Specialty | Care Team | Description | +--------+ + + + + | 04/05/ | Telephone | Orthopedic Surgery | Mark Montana | Post-op Question | | 2018 | | | MD [place] | | +--------+ + + + + | 04/04/ | Telephone | Orthopedic Surgery | Mark Montana | | | 2018 | | | MD [place] | | +--------+ + + + + | 03/29/ | Anesthesia | | Michela Eli | | | 2019 | Event | | MD [place] | | +--------+ + + + + | 03/29/ | Surgery | | Mark Motnana | Posterior Total Hip | | 2018 | | | MD [place] | Arthroplasty | +--------+ + + + + | 03/29/ | Hospital | General Surgery | Mark Montana | Left hip pain; | | 2018 - | Encounter | | MD [place] | Post-traumatic | | | | | | osteoarthritis of | | 03/31/ | | | | left hip | | 2018 | | | | | +--------+ + + + + | 03/21/ | Preadmit | Pre-Admission | Mark Montana | | | 2019 | Visit | Testing | MD [place] | | +--------+ + + + + | 03/21/ | Office | Orthopedic Surgery | Gus Orozco, | Post-traumatic | | 2018 | Visit | | KYA | 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 (Primary | | | | | | Dx) | +--------+ + + + + | 03/16/ | Telephone | Orthopedic Surgery | Yvette Michelle, | Surgery Appointment | | 2018 | | | Bulb Grader | | +--------+ + + + + | 03/14/ | Hospital | Radiology | Mark Montana | Left hip pain | | 2019 | Encounter | | MD [place] | | +--------+ + + + + | 03/14/ | Office | Orthopedic Surgery | Mark Montana | 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| MD [place] | 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 (Primary | | | | | | Dx) | +--------+ + + + + from Last 3 Months Family History + + +------+ + | Medical History | Relation | Name | Comments | + + +------+ + | Diabetes | Brother | | | + + +------+ + | Heart disease | Brother | | | + + +------+ + | Early | | | MVA | + + +------+ [...] | + + +------+ + | No known problems | Maternal | | | | | [...] | + + +------+ + | No known problems | Paternal | | | | | Aunt | | | + + +------+ + | No known problems | Paternal | | | | | Grandfath | | | | | er | | | + + +------+ + | No known problems | Paternal | | | | | [...] | + + Last Filed Vital Signs + + + + | Vital Sign | Reading | Time Taken | + + + + | Blood Pressure | 151/69 | 03/31/2019 1150 PDT | + + + + | Pulse | 71 | 03/31/20191149 PDT | + + + + | Temperature | 36.5 C (97.7 F) | 03/31/20191149 PDT | + + + + | Respiratory Rate | 16 | 03/31/20191149 PDT | + + + + | Oxygen Saturation | 97% | 03/31/20191149 PDT | + + + + | Inhaled Oxygen | - | - | | Concentration | | | + + + + | Weight | 74.5 kg (164 lb 3.9 | 03/29/2019 0632 PDT | | | oz) | | + + + + | Height | 170.2 cm (5' 7") | 03/29/201932 PDT | + + + + | Body Mass Index | 25.72 | 03/29/2019631 PDT | + + + + Plan of Treatment +--------+---------+ + + + | Date | Type | Specialty | Care Team | Description | +--------+---------+ + + + | 04/11/ | Office | Orthopedic Surgery | Gus Orozco, | | | 2018 | Visit | | [facility] [address] | | | | | | [place], | | | | | | [place] [address] | | | | | | [phone] | | | | | | | | +--------+---------+ + + + | 05/16/ | Office | Orthopedic Surgery | Mark Montana | | | 2018 | Visit | | MD [place] [address] | | | | | | [address] | | | | | | [place] [address] | | | | | | [phone] | | | | | | | | +--------+---------+ + + + | 06/30/ | Office | Cardiology | Smitha Griffin DO | | | 2019 | Visit | | [address] | | | | | | [place] | | | | | | [address] | | | | | | | | +--------+---------+ + + + + + + + + | Health Maintenance | Due Date | Last Done | Comments | + + + + + | Diabetic Eye Exam | | | | | | [...] + + | Vaccine: Influenza | | 03/23/2018, 03/09/2017, | | | (#1) | 9 | 03/08/2014, Additional history | | | | | exists | | + + + + + | Adult Annual | | | | | Wellness Visit | 9 | | | + + + + + | Hemoglobin A1c | | 03/21/2019 | | | Screening | 0 | | | + + + + + | Vaccine: | | 02/28/2018 | | | Dtap/Tdap/Td (2 - | 8 | | | | Td) | | | | + + + + + Implants + +--------+--------+ +--------+--------+--------+ | Implanted | Type | Area | Manufacture | Device | Shelf | Model | | | | | r | | Expira | / | | | | | | Identi | tion | Serial | | | | | | fier | Date | / Lot | + +--------+--------+ +--------+--------+--------+ | Imp Hip Acet Lnr Trid 36mme - | Generi | Left: | RANDI | | 10/23/ | 623-00 | | SnaImplanted: Qty: 1 on | c | Hip | MEDICAL - | | 2023 | -36E | | 03/29/2019 by Nan, | | | STRY | | | /NA | | Mark Foley MD | | | | | | /[id number] | | | | | | | | 5 | + +--------+--------+ +--------+--------+--------+ | Imp Hip Stem Anato Neut Sz4 | Generi | Left: | RANDI | | 09/19/ | 4845-7 | | Lt - SnaImplanted: Qty: 1 on | c | Hip | MEDICAL - | | 2023 | -214 | | 03/29/2019 by Nan, | | | STRY | | | /NA | | Mark Foley MD | | | | | | /[id number] | | | | | | | | 301 | + +--------+--------+ +--------+--------+--------+ | Imp Hip Fem Hd Bolx 36mm - | Generi | Left: | RANDI | | 02/02/ | 6570-0 | | SnaImplanted: Qty: 1 on | c | Hip | MEDICAL - | | 2023 | -436 | | 03/29/2019 by Nan, | | | STRSebastian | | | /NA | | Mark Foley MD | | | | | | /[id number] | | | | | | | | 802 | + +--------+--------+ +--------+--------+--------+ | Stent Bili Advnx 10fr 5cm - | Stent | | [place] | | | [id number] / | | [id number]: Qty: 1 on | | | SCIENTIFIC | | | / | | 09/26/2016 by Gregor Mccord | | | BIGG - BSCI | | | | | MD Delmy | | | | | | | + +--------+--------+ +--------+--------+--------+ | Imp Hip Clushle Trident Ii | | Left: | RANDI | | 12/11/ | 702-04 | | 54e - SnaImplanted: Qty: 1 on | | Hip | MEDICAL - | | 2023 | -54E | | 03/29/2019 by Nan, | | | ALLEN | | | /NA | | Mark Foley MD | | | | | | /[id number] | | | | | | | | [id number] | + +--------+--------+ +--------+--------+--------+ | Screw Hex Lp [id number] - | | Left: | RANDI | | 11/20/ | 7030-6 | | SnaImplanted: Qty: 1 on | | Hip | MEDICAL - | | 2023 | 530 | | 03/29/2019 by Nan, | | | ALLEN | | | /NA | | Mark Foley MD | | | | | | /[id number] | + +--------+--------+ +--------+--------+--------+ Procedures + +--------+ + + + | Procedure Name | Priori | Date/Time | Associated Diagnosis | Comments | | | ty | | | | + +--------+ + + + | POC GLUCOSE (NON | Routin | 03/31/2019 | | Results for this | | ORD) | e | 11:58 PDT | | procedure are in the | | | | | | results section. | + +--------+ + + + | POC GLUCOSE (NON | Routin | 03/31/2019 | | Results for this | | ORD) | e | 7:23 PDT | | procedure are in the | | | | | | results section. | + +--------+ + + + | POC GLUCOSE (NON | Routin | 03/30/2019 | | Results for this | | ORD) | e | 20:57 PDT | | procedure are in the | | | | | | results section. | + +--------+ + + + | HEMOGLOBIN AND | Routin | 03/30/2019 | | Results for this | | HEMATOCRIT | e | 5:16 PDT | | procedure are in the | | | | | | results section. | + +--------+ + + + | POC GLUCOSE (NON | Routin | 03/30/2019 | | Results for this | | ORD) | e | 3:23 PDT | | procedure are in the | | | | | | results section. | + +--------+ + + + | POC GLUCOSE (NON | Routin | 03/29/2019 | | Results for this | | ORD) | e | 20:59 PDT | | procedure are in the | | | | | | results section. | + +--------+ + + + | XR PELVIS 1 OR 2 VW | Routin | 03/29/2019 | | Results for this | | | e | 10:15 PDT | | procedure are in the | | | | | | results section. | + +--------+ + + + | POC GLUCOSE (NON | Routin | 03/29/2019 | | Results for this | | ORD) | e | 9:20 PDT | | procedure are in the | | | | | | results section. | + +--------+ + + + | TYPE AND SCREEN | STAT | 03/29/2019 | | Results for this | | | | 7:59 PDT | | procedure are in the | | | | | | results section. | + +--------+ + + + | ANE EPIDURAL NOTE | Routin | 03/29/2019 | | Results for this | | | e | 7:52 PDT | | procedure are in the | | | | | | results section. | + +--------+ + + + | REMOVE HARDWARE | | 03/29/2019 | Left hip pain | | | LOWER EXTREMITY | | 7:10 PDT | | | + +--------+ + [...] hip pain | | | | | 7:10 PDT | | | + +---+ + +---+ +---+--------+ | | | | | Specia | | | l | | | Needs | | | | | | Stryke | | | r | | | compon | | | ent | +---+--------+ + +--------+ + + + | POC GLUCOSE (NON | Routin | 03/29/2019 | | Results for this | | ORD) | e | 6:42 PDT | | procedure are in the [...] this | | VIEWS | e | 15:48 PDT | | procedure are in the | | | | | | results section. | + +--------+ + + + from Last 3 Months Results POC Glucose (03/31/2019 11:58 PDT)Only the most recent of 7 results within the time period is included. + + + + + + | Component | Value | Ref Range | Performed | Pathologist | | | | | At | Signature | + + + + + + | Glucose, | 62 (L)Comment: Testing | 65 - 99 mg/dL | [facility] | | | POC | performed at [facility];[address] | | LABORATORY | | | | [address];[place] | | | | | | [address] | | | | + + + + + + + + | Specimen | + + | | + + + + + + + | Performing | Address | City/State/Zipcode | Phone Number | | Organization | | | | + + + + + | [facility] | [address] | [place] [address] | [phone] | + + + + + Hemoglobin and Hematocrit (03/30/2019 5:16 PDT) + + + + + + [...] [facility] | | | | performed at [facility];[address] | | LABORATORY | | | | [address];[place], [place] | | | | | | [address] | | | | + + + + + + + + | Specimen | + + | Blood | + + + + + + + | Performing | Address | City/State/Zipcode | Phone Number | | Organization | | | | + + + + + | [facility] | [address] | [place] [address] | [phone] | + + + + + XR Pelvis 1 or 2 Vw (03/29/2019 10:15 PDT) + + | Specimen | + + | | + + + + + | Impressions | Performed At | + + + | Post arthroplasty. Signed by: Yrn Johnson, Raimundo Sign | [facility] | | Date/Time: [...] | Howard, Rad Results In - 03/29/2019 1037 PDT | | PELVIS ONE OR TWO [...] | | | + +---------+ + + Type and Screen (03/29/2019 7:59 PDT)Only the most recent of 2 results within the time per iod is included. + + + + + + | [...] + + + | [facility] | [id number] | | [facility] | | | | | | LABORATORY | | + + + + + + | [facility] | Testing performed at | | [facility] | | | | [facility];[address] | | LABORATORY | | | | [address];[place] [address] | | | | + + + + + + + + | Specimen | + + | Blood | + + + + + + + | Performing | Address | City/State/Zipcode | Phone Number | | Organization | | | | + + + + + | [facility] | [address] | [place] [address] | [phone] | + + + + + Neuraxial (03/29/2019 7:52 PDT) + + + | Narrative | Performed At | + + + | Michela Eli MD 03/29/2019 8:01 Neuraxial | | | Procedure Note 03/29/2019 7:35 Procedure: single-shot spinal | | | anesthesia Indication: surgical anesthesia Preprocedure check: | | | patient identified, procedure and rescue equipment checked, | | | preevaluation including airway assessment complete, risks/benefits | | | discussed, consent obtained, timeout performed, reassessment prior | | | to procedure and monitors applied Patient position: sitting | | | Preparation: chlorhexidine/isopropyl alcohol, Introducer used: | | | yes Procedure level: L3-4 Approach: midline Needle: pencil-point | | | Needle size: 25 g Medication administered through: needle and | | | incremental injection Negative findings: no paresthesia and no blood | | | aspirated Positive findings: CSF aspirated Test dose response: | | | negative and positive for intrathecal administration Attempts: 1 | | | Ease of procedure: easy Medications Administered Bupivacaine | | | 0.75%-dextrose 8.25% (MARCAINE SPINAL), 12 mg Date/Time: 03/29/2019 | | | 7:35 Please see anesthesia record or flowsheet for vital sign | | | documentation and see anesthesia record or MAR for additional | | | medication documentation. | | + + + + + | Procedure Note | + + | Michela Eli MD - 03/29/2019 0752 PDT Neuraxial Procedure Note03/29/2019 | | 7:35Procedure: single-shot spinal anesthesiaIndication: surgical anesthesiaPreprocedure | | check: patient identified, procedure and rescue equipment checked, preevaluation | | including airway assessment complete, risks/benefits discussed, consent obtained, | | timeout performed, reassessment prior to procedure and monitors appliedPatient position: | | sittingPreparation: chlorhexidine/isopropyl alcohol, Introducer used: yesProcedure | | level: L3-4Approach: midlineNeedle: pencil-pointNeedle size: 25 gMedication administered | | through: needle and incremental injectionNegative findings: no paresthesia and no blood | | aspiratedPositive findings: CSF aspiratedTest dose response: negative and positive for | | intrathecal administrationAttempts: 1Ease of procedure: easyMedications | | AdministeredBupivacaine 0.75%-dextrose 8.25% (MARCAINE SPINAL), 12 mgDate/Time: | | 03/29/2019 7:35Please see anesthesia record or flowsheet for vital sign documentation | | and see anesthesia record or MAR for additional medication documentation. | |Medication administered through: needle and incremental injection | |Negative findings: no paresthesia and no blood aspirated | |Positive findings: CSF aspirated | |Test dose response: negative and positive for intrathecal administration | |Attempts: 1 | |Ease of procedure: easy | | | | | |Medications Administered | |Bupivacaine 0.75%-dextrose 8.25% (MARCAINE SPINAL), 12 mg | |Date/Time: 03/29/2019 7:35 | | | | | |Please see anesthesia record or flowsheet for vital sign documentation and see anesthesia r ecord or MAR for additional medication documentation. | + + MRSA NAAT (03/21/2019 15:37 PDT) [...] [facility] | | | | performed at [facility];[address] | | LABORATORY | | | | [address];[place], [place] | | | | | | [address] | | | | + + + + + + + + | Specimen | + + | Tissue | + + + + + + + | Performing | Address | City/State/Zipcode | Phone Number | | Organization | | | | + + + + + | [facility] | [address] | [place] [address] | [phone] | + + + + + CBC [...] | | | | | performed at [facility] | | | | | | [address];[place], [place] | | | | | | [address] | | | | + + + + + + + + | Specimen | + + | Blood | + + + + + + + | Performing | Address | City/State/Zipcode | Phone Number | | Organization | | | | + + + + + | [facility] | [address] | [place] [address] | [phone] | + + + + + Hemoglobin A1C (03/21/2019 15:33 PDT) + + + + + + | Component | Value | Ref Range | Performed | Pathologist | | | | | At | Signature | + + + + + + | Hemoglobin | 5.8Comment: HbA1c method | 4.0 - 6.0 % | [facility] | | | A1c | is certified by [facility] | | LABORATORY | | | | [...] | 120Comment: Estimated | <154 mg/dL | [facility] | | | Average | Average Glucose | | LABORATORY | | | Glucose | calculated from | | | | | | hemoglobin A1c by use of | | | | | | the ADArecommended | | | | | | formula.Testing | | | | | | performed at [facility], [address] | | | | | [facility], | | | | | | [place] [address] | | | | + + + + + + + + | Specimen | + + | Blood | + + + + + + + | Performing | Address | City/State/Zipcode | Phone Number | | Organization | | | | + + + + + | [facility] | [address] | [place] [address] | [phone] | + + + + + Basic [...] | | | | | performed at [facility];[address] | | | | | | [address];[place], [place] | | | | | | [address] | | | | + + + + + + + + | Specimen | + + | Blood | + + + + + + + | Performing | Address | City/State/Zipcode | Phone Number | | Organization | | | | + + + + + | [facility] | [address] | [place] [address] | [phone] | + + + + + ECG [...] | | | + +---------+ + + XR Hip Left 2-3 Views (03/14/2019 15:48 [...] | | | + +---------+ + + from Last 3 Months Insurance + +--------+ +--------+-------+---------+--------+ | Selena | Octavio | Subscriber | Effect | Phone | Address | Type | | | t Plan | ID | nestor | | | | | | / | | Dates | | | | | | Group | | | | | | + +--------+ +--------+-------+---------+--------+ | [employer] | [employer] | [id number] | 06/15/19 | | | Medica | | | HEALTH | | 17-Pre | | | re | | | MDCR | | sent | | | | + +--------+ +--------+-------+---------+--------+ | [employer] | [employer] | [id number] | | | | Medica | | | HEALTH | | 019-Pr | | | re | | | MDCR | | esent | | | | + +--------+ +--------+-------+---------+--------+ + +--------+ +--------+ + + | Guarantor Name | Accoun | Relation to | Date | Phone | Billing Address | | | t Type | Patient | of | | | | | | | | | | + +--------+ +--------+ + + | BladeScarlet D | Person | Self [birth year] | [address] | | | al/Fam | | 1936 | [phone] | [place] [address] | | | aissatou | | | 1 (Home) | | + +--------+ +--------+ + + | BladeScarlet Jessa | Person | Self [birth year] | [address] | | | al/Fam | | 1936 | [phone] | [place] [address] | | | aissatou | | | 3 (Home) | | + +--------+ +--------+ + + Advance Directives Patient has advance care planning documents, and code status on file. For more information, please contact:[facility] and [place] [address] + + + + + | Code Status | Date | Date | Comments | | | Activated | Inactivated | | + + + + + | Full Code | 03/29/2019 | 03/31/2019 | | | | 14:18 | 16:40 | | + + + + +
--- OUTSIDE RECORDS SUMMARY | ~2019-04-06 | XMS | Encounter Summary ---
Demographics + + + | Address | [address] | | | [place] [address] | + + + | Home Phone | | + + + | Preferred Language | Unknown | + + + | Marital Status | | + + + | Nondenominational Affiliation | 1077 | + + + | Race | Unknown | + + + | Ethnic Group | Unknown | + + + Author + + + | Author | [facility] | | | and Khurramana | + + + | Organization | [facility] | | | and [...] Team Providers + +------+ + | Care Mill Tender Name | Role | Phone | [...] | Telephone | [facility] | Mark Mnotana | Post-op Question | | 2018 | | [facility] [place] [address] | MD Alaina [address] | | | | | [address] [place], [place] | [address] | | | | | [address] | [place] [address] | | | | | [phone] | [phone] | | | | | | | [...] [place], | | | | | | [place] [address] | | | | | | [phone] | | | | | | | | +--------+---------+ + + + | 05/16/ | Office | Orthopedic Surgery | Mark [place] | | | 2018 | Visit | | MD Alaina [address] | | | | | | [place] | | | | | | [place] [address] | | | | | | [phone] | | | | | | | | +--------+---------+ + + + | 06/30/ | Office | Cardiology | Smitha Griffin DO | | | 2019 | Visit | | [address] | | | | | | [place] | | | | | | [address] | | | | | | | | +--------+---------+ + + + documented as of this encounter Visit Diagnoses Not on filedocumented in this encounter"
--- OUTSIDE RECORDS SUMMARY | ~2019-04-06 | XMS | Encounter Summary ---
Demographics + + + | Address | [address] | | | [place] [address] | + + + | Home Phone | | + + + | Preferred Language | Unknown | + + + | Marital Status | | + + + | Worship Affiliation | 1077 | + + + | Race | Unknown | + + + | Ethnic Group | Unknown | + + + Author + + + | Author | [facility] | | | and Khurramana | + + + | Organization | [facility] | | | and [place] [...] Team Providers + +------+ + | Care Hydro Station Operator Name | Role | Phone | [...] | | | | | from | [address] | [address] | | | | | [place] at | [address] | [address] | | | | | [facility] | [place], | [place], [place] | | | | | Procedures | [place] | [address] Phone: | | | | | NEW PATIENT | [address] | [phone] | | | | | | Phone: | Fax: | | | | | | [phone] | [phone] | | | | | | Fax: | | | | | | | [phone] | | + +--------+ + + + + Encounter Details +--------+---------+ + + + | Date | Type | Department | Care Team | Description | +--------+---------+ + + + | 09/30/ | Office | [facility] | Mark [place] | 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[place], [place]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 (Primary | | | | [address] | [place] [address] | Dx) | | | | [phone] | [phone] | | | | | | | [...] Procedure: ERCP; Surgeon: Gregor Mccord MD; Location: [facility] MEDICAL PROCEDURE UNIT ERCP N/A 10/14/2016 Procedure: ERCP w/ stent pull; Surgeon: Gregor Mccord MD; Location: [facility] RE UNIT PARTIAL HYSTERECTOMY 1972 RECTOCELE REPAIR [...] mouth Daily., Disp: , Rfl: Multiple Vitamins-Minerals ([facility]) MISC, Take by mouth., Disp: , Rfl: Buffalo-3 Fatty Acids (PRO NUTRIENTS OMEGA 3 PO), [...] | | | | | | [place] [address] | | | | | | [phone] | | | | | | | | +--------+---------+ + + + | 05/16/ | Office | Orthopedic Surgery | Mark [place] | | | 2018 | Visit | | MD Paul Foley | | | | | | [place] | | | | | | [place] [address] | | | | | | [phone] | | | | | | | | +--------+---------+ + + + | 06/30/ | Office | Cardiology | Smitha Griffin DO | | | 2019 | Visit | | [address] | | | | | | [place] | | | | | | [address] | | | | | | | [...]
--- OUTSIDE RECORDS SUMMARY | ~2019-04-06 | XMS | Encounter Summary ---
Demographics + + + | Address | [address] | | | [place] [address] | + + + | Home Phone | | + + + | Preferred Language | Unknown | + + + | Marital Status | | + + + | Cheondoism Affiliation | Unknown | + + + | Race | White | + + + | Ethnic Group | Not or | + + + Author + + + | Author | [facility] | + + + | Organization | [facility] | + + + | Address [...] Team Providers + +------+ + | Care Waiter/Waitress Tourist Class Name | Role | Phone | + +------+ + PCP | Unavailable | + +------+ + Encounter Details +--------+ + + + + | Date | Type | Department | Care Team | Description | +--------+ + + + + | 03/20/ | Transcribed | Allergy Clinic at | Dictation, Other | Transcribed | | 1996 | | [facility] [address] | | | | | | [address] | | | | | | Mailcode: [id number] | | | | | | [address] | | | | | | [place], | | | | | | [place] [address] | | | | | | [phone] | | | +--------+ + + + [...] as of this encounter Progress 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 Leos: We saw Mrs. Scarlet Murguia for a rheumatology consultation at [facility] on March 20, 1997. 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 Sincerely, Damaso Franks M.D. Resident, Internal Medicine TERRY/artemio cc: Samia Montano M.D. Occupational Health Physician, Medicine Rheumatology and Arthritis documented in this encounter Plan of Treatment Not on filedocumented as of this encounter Visit Diagnoses Not on filedocumented in this encounter
--- OUTSIDE RECORDS SUMMARY | ~2019-04-06 | XMS | Encounter Summary ---
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[place], [place] | [place] [address] | left hip | | 2019 | | [address] | [phone] | | | | | [phone] | | | +--------+ + + + [...] Procedure: ERCP; Surgeon: Gregor Mccord MD; Location: [facility] MEDICAL PROCEDURE UNIT ERCP N/A 10/14/2016 Procedure: ERCP w/ stent pull; Surgeon: Gregor Mccord MD; Location: [facility] MEDICAL PROCEDU RE UNIT HARDWARE REMOVAL Left 03/29/2019 Procedure: REMOVE HARDWARE LOWER EXTREMITY-HIP; Surgeon: Mark [place] MD; Location : [facility] PARTIAL HYSTERECTOMY 1971 RECTOCELE REPAIR 1991 TAILBONE 1973 broken, partial removal TONSILLECTOMY 1938 TOTAL HIP ARTHROPLASTY Left 03/29/2019 Procedure: Posterior Total Hip Arthroplasty; Surgeon: Mark [place] MD; Location: [facility] MAIN OR Allergies Allergen Reactions Erythromycin [...] Code [facility]C [facility] [address] In 2 weeks Discharge Medications Changed Medications [...] | | | | | | ([facility]) | | | | | | | MISC | | | | | | + + + +---------+ + + | Enterprise-3 Fatty | Take 1 tablet by | [...] might be different from t he original. [facility] Progress Note Primary Care Physician: Susan Loes TODAY S DATE: 03/30/2019 PATIENT NAME: Scarlet [...] Horowitz RN - 03/29/2019 [facility]3 [facility] Viv Pop RN documented in this [...] [place], | | | | | | [place] [address] | | | | | | [phone] | | | | | | | | +--------+---------+ + + + | 05/16/ | Office | Orthopedic Surgery | Mark [place] | | | 2018 | Visit | | MD Alaina [address] | | | | | | [place] | | | | | | [place] [address] | | | | | | [phone] | | | | | | | | +--------+---------+ + + + | 06/30/ | Office | Cardiology | Smitha Griffin DO | | | 2019 | Visit | | [address] | | | | | | [place] | | | | | | [address] | | | | | | | [...] | | | POC | performed at [facility];[address] | | LABORATORY | | | | [address];[place] | | | | | | [address] | | | | + + + + + + + + | Specimen | + + | | + + + + + + + | Performing | Address | City/State/Zipcode | Phone Number | | Organization | | | | + + + + + | [facility] | [address] [facility] [address] | [place] [address] | [phone] | + + + + + POC Glucose (03/31/2019 7:23 PDT) + + + + + + | Component | Value | Ref Range | Performed | Pathologist | | | | | At | Signature | + + + + + + | Glucose, | 122 (H)Comment: Testing | 65 - 99 mg/dL | [facility] | | | POC | performed at [facility];[address] | | LABORATORY | | | | [address];[place] | | | | | | [address] | | | | + + + + + + + + | Specimen | + + | | + + + + + + + | Performing | Address | City/State/Zipcode | Phone Number | | Organization | | | | + + + + + | [facility] | [address] | [place] [address] | [phone] | + + + + + POC Glucose (03/30/2019 20:57 PDT) + + + + + + | Component | Value | Ref Range | Performed | Pathologist | | | | | At | Signature | + + + + + + | Glucose, | 98Comment: Testing | 65 - 99 mg/dL | [facility] | | | POC | performed at [facility];[address] | | LABORATORY | | | | [address];[place], [place] | | | | | | [address] | | | | + + + + + + + + | Specimen | + + | | + + + + + + + | Performing | Address | City/State/Zipcode | Phone Number | | Organization | | | | + + + + + | [facility] | [address] | [place] [address] | [phone] | + + + + + Hemoglobin [...] [facility] | | | | performed at [facility];[address] | | LABORATORY | | | | [address];[place], [place] | | | | | | [address] | | | | + + + + + + + + | Specimen | + + | Blood | + + + + + + + | Performing | Address | City/State/Zipcode | Phone Number | | Organization | | | | + + + + + | [facility] | [address] | [place] [address] | [phone] | + + + + + POC Glucose (03/30/2019 3:23 PDT) + + + + + + | Component | Value | Ref Range | Performed | Pathologist | | | | | At | Signature | + + + + + + | Glucose, | 147 (H)Comment: Testing | 65 - 99 mg/dL | [facility] | | | POC | performed at [facility];[address] | | LABORATORY | | | | [address];[place], [place] | | | | | | [address] | | | | + + + + + + + + | Specimen | + + | | + + + + + + + | Performing | Address | City/State/Zipcode | Phone Number | | Organization | | | | + + + + + | [facility] | [address] [facility] | [place] [address] | [phone] | + + + + + POC Glucose (03/29/2019 20:59 PDT) + + + + + + | Component | Value | Ref Range | Performed | Pathologist | | | | | At | Signature | + + + + + + | Glucose, | 172 (H)Comment: Testing | 65 - 99 mg/dL | [facility] | | | POC | performed at [facility];[address] | | LABORATORY | | | | [address];[place] | | | | | | [address] | | | | + + + + + + + + | Specimen | + + | | + + + + + + + | Performing | Address | City/State/Zipcode | Phone Number | | Organization | | | | + + + + + | [facility] | [address] | [place] [address] | [phone] | + + + + + XR [...] Testing | 65 - 99 mg/dL | [facility] | | | POC | performed at [facility];[address] | | LABORATORY | | | | [address];[place] | | | | | | [address] | | | | + + + + + + + + | Specimen | + + | | + + + + + + + | Performing | Address | City/State/Zipcode | Phone Number | | Organization | | | | + + + + + | [facility] | [address] | [place] [address] | [phone] | + + + + + Type [...] + + + | BB BAND | [id number] | | [facility] | | | | | | LABORATORY | | + + + + + + | BB BAND | Testing performed at | | [facility] | | | | [facility];[address] | LABORATORY | | | | [address];[place] [address] | | | | + + + + + + + + | Specimen | + + | Blood | + + + + + + + | Performing | Address | City/State/Zipcode | Phone Number | | Organization | | | | + + + + + | [facility] | [address] | [place] [address] | [phone] | + + + + + POC Glucose (03/29/2019 6:42 PDT) + + + + + + | Component | Value | Ref Range | Performed | Pathologist | | | | | At | Signature | + + + + + + | Glucose, | 96Comment: Testing | 65 - 99 mg/dL | [facility] | | | POC | performed at [facility];[address] | | LABORATORY | | | | [address];[place], [place] | | | | | | [address] | | | | + + + + + + + + | Specimen | + + | | + + + + + + + | Performing | Address | City/State/Zipcode | Phone Number | | Organization | | | | + + + + + | [facility] | [address] | [place] [address] | [phone] | + + + + + documented [...]
--- OUTSIDE RECORDS SUMMARY | ~2019-04-06 | XMS | Encounter Summary ---
Demographics + + + | Address | [address] | | | [place] [address] | + + + | Home Phone [...] | Author | [facility] | | | and Khurramana | + + + | Organization | [facility] | | | and [place] [...] Team Providers + +------+ + | Care Counselor Dormitory Name | Role | Phone | + [...] Post-op Question | | 2018 | | [facility] [address] | MD Alaina [address] | | | | | [address] [place], [place] | [address] | | | | | [address] | [place] [address] | | | | | [phone] | [phone] | | | | | | | [...] [place], | | | | | | [place] [address] | | | | | | [phone] | | | | | | | | +--------+---------+ + + + | 05/16/ | Office | Orthopedic Surgery | Mark [place] | | | 2018 | Visit | | MD Alaina [address] | | | | | | [place] | | | | | | [place] [address] | | | | | | [phone] | | | | | | | | +--------+---------+ + + + | 06/30/ | Office | Cardiology | Smitha Griffin DO | | | 2019 | Visit | | [address] | | | | | | [place] | | | | | | [id number] | | | | | | | | +--------+---------+ + + + documented as of this encounter Visit Diagnoses Not on filedocumented in this encounter"
--- OUTSIDE RECORDS SUMMARY | ~2019-04-06 | XMS | Encounter Summary ---
Demographics + + + | Address | [address] | | | [place] [address] | + + + | Home Phone [...] | Author | [facility] | | | and Khurramana | + + + | Organization | [facility] | [...] Team Providers + +------+ + | Care Mold Stacker Name | Role | Phone | + +------+ + | Susan Leos | PCP | | | PA-C | | | + +------+ + Encounter Details +--------+ + + + + | Date | Type | Department | Care Team | Description | +--------+ + + + + | 04/04/ | Telephone | [facility] | Mark [place] | | | 2018 | | AMY [address] Foley MD [address] | | | | | [place] | [place] | | | | | [address] | [place] [address] | | | | | [phone] | [phone] | | | | | | | [...] [place], | | | | | | [place] [address] | | | | | | [phone] | | | | | | | | +--------+---------+ + + + | 05/16/ | Office | Orthopedic Surgery | Mark [place] | | | 2018 | Visit | | MD Paul Foley | | | | | | [address] | | | | | | [place] [address] | | | | | | [phone] | | | | | | | | +--------+---------+ + + + | 06/30/ | Office | Cardiology | Smitha Griffin DO | | | 2020 | Visit | | [address] | | | | | | [place] | | | | | | [id number] | | | | | | | | +--------+---------+ + + + documented as of this encounter Visit Diagnoses Not on filedocumented in this encounter"
--- OUTSIDE RECORDS SUMMARY | ~2019-04-06 | XMS | Encounter Summary ---
Demographics + + + | Address | [address] | | | [place] [address] | + + + | Home Phone | | + + + | Preferred Language | Unknown | + + + | Marital Status | | + + + | Mu-Ism Affiliation | Unknown | + + + | Race | Unknown | + + + | Ethnic Group | Unknown | + + + Author + + + | Author | [email or web address] (Historical as of | | | 01-29-19) | + + + | Organization | [email or web address] (Historical as of | | | 01-29-19) | + + + | Address | Unknown | + + + | Phone | Unavailable | + + + Support + + + + + | Name | Relationship | Address | Phone | + + + + + | Alejo Murguia | [facility] | [address] | | | | | [place] [address] | | + + + + + Care Team Providers + +------+ + | Care Internal Audit Consultant Name | Role | Phone | [...] | 2019 | on Only | Cardiology Rolla | [address] | | | | | [address] | [address] [place], [place] | | | | | [place], [place] | [address] | | | | | [address] | | | | | | [phone] | | | +--------+ + + + [...]
--- OUTSIDE RECORDS SUMMARY | ~2019-04-06 | XMS | Encounter Summary ---
Demographics + + + | Address | [address] | | | [place] [address] | + + + | Home Phone | | + + + | Preferred Language | Unknown | + + + | Marital Status | | + + + | Bahai Affiliation | 1077 | + + + | Race | Unknown | + + + | Ethnic Group | Unknown | + + + Author + + + | Author | [facility] | | | and Khurramana | + + + | Organization | [facility] | | | and [...] Team Providers + +------+ + | Care Social Scientist Name | Role | Phone | + [...] + + | 03/29/ | Surgery | [facility] | Mark Montana | Posterior Total Hip | | 2019 | | [facility] | MD Alaina [address] | Arthroplasty | | | | OPER[address] | [place] | | | | | [address] | [place] [address] | | | | | [place], [place] | [phone] | | | | | [address] | | | | | | [phone] | | | +--------+---------+ + + + [...] disease), lumbar 02/04/2016 Diabetes type 2, controlled ([facility]) Full dentures upper & lower GERD [...] Procedure: ERCP; Surgeon: Gregor Mccord MD; Location: [facility] MEDICAL PROCEDURE UNIT ERCP N/A 10/14/2016 Procedure: ERCP w/ stent pull; Surgeon: Gregor Mccord MD; Location: [facility] MEDICAL PROCEDU RE UNIT HARDWARE REMOVAL Left 03/29/2019 Procedure: REMOVE HARDWARE LOWER EXTREMITY-HIP; Surgeon: Mark Montana MD; Location : [facility] MAIN OR PARTIAL HYSTERECTOMY 1971 RECTOCELE REPAIR 1991 TAILBONE 1972 broken, partial removal TONSILLECTOMY 1938 TOTAL HIP ARTHROPLASTY Left 03/29/2019 Procedure: Posterior Total Hip Arthroplasty; Surgeon: Mark Montana MD; Location: [facility] MAIN OR Allergies Allergen Reactions [...] Follow up: Gus Orozco PA-C [address] [facility] [address] In 2 weeks Discharge Medications Changed Medications [...] | | | | | | ([facility]) | | | | | | | MISC | | | | | | + + + +---------+ + + | Egan-3 Fatty | Take 1 tablet by | [...] might be different from t he original. [facility] Progress Note Primary Care Physician: [...] signed by: Gus Orozco PA-C, 03/30/2019 9:32 [place], Viv Brock RN - 03/29/2019 [facility] Viv Pop RN documented in this encoun ter Plan of Treatment +--------+---------+ + + + | Date | Type | Specialty | Care Team | Description | +--------+---------+ + + + | 04/11/ | Office | Orthopedic Surgery | Gus Orozco, | | | 2018 | Visit | | KYA [address] | | | | | | [facility], | | | | | | [place] [address] | | | | | | [phone] | | | | | | | | +--------+---------+ + + + | 05/16/ | Office | Orthopedic Surgery | Mark Montana | | | 2018 | Visit | | MD Alaina [address] | | | | | | [place] | | | | | | [place] [address] | | | | | | [phone] | | | | | | | | +--------+---------+ + + + | 06/30/ | Office | Cardiology | Smitha Griffin DO | | | 2019 | Visit | | [address] | | | | | | [place] | | | | | | [address] | | | | | | | [...] | | | POC | performed at [facility];[address] | | LABORATORY | | | | [address];[place], [place] | | | | | | [address] | | | | + + + + + + + + | Specimen | + + | | + + + + + + + | Performing | Address | City/State/Zipcode | Phone Number | | Organization | | | | + + + + + | [facility] | [address] | [place] [address] | [phone] | + + + + + POC Glucose (03/31/2019 7:23 PDT) + + + + + + | Component | Value | Ref Range | Performed | Pathologist | | | | | At | Signature | + + + + + + | Glucose, | 122 (H)Comment: Testing | 65 - 99 mg/dL | [place] | | | POC | performed at [facility];[address] | | LABORATORY | | | | [address];[place] | | | | | | [address] | | | | + + + + + + + + | Specimen | + + | | + + + + + + + | Performing | Address | City/State/Zipcode | Phone Number | | Organization | | | | + + + + + | [facility] | [address] | [place] [address] | [phone] | + + + + + POC Glucose (03/30/2019 20:57 PDT) + + + + + + | Component | Value | Ref Range | Performed | Pathologist | | | | | At | Signature | + + + + + + | Glucose, | 98Comment: Testing | 65 - 99 mg/dL | [place] | | | POC | performed at [facility];[address] | | LABORATORY | | | | [address];[place], [place] | | | | | | [address] | | | | + + + + + + + + | Specimen | + + | | + + + + + + + | Performing | Address | City/State/Zipcode | Phone Number | | Organization | | | | + + + + + | [facility] | [address] | [place] [address] | [phone] | + + + + + Hemoglobin [...] [facility] | | | | performed at [facility];[address] | | LABORATORY | | | | [facility];[place], [place] | | | | | | [address] | | | | + + + + + + + + | Specimen | + + | Blood | + + + + + + + | Performing | Address | City/State/Zipcode | Phone Number | | Organization | | | | + + + + + | [facility] | [address] | [place] [address] | [phone] | + + + + + POC Glucose (03/30/2019 3:23 PDT) + + + + + + | Component | Value | Ref Range | Performed | Pathologist | | | | | At | Signature | + + + + + + | Glucose, | 147 (H)Comment: Testing | 65 - 99 mg/dL | [facility] | | | POC | performed at [facility];[address] | | LABORATORY | | | | [address];[place] | | | | | | [address] | | | | + + + + + + + + | Specimen | + + | | + + + + + + + | Performing | Address | City/State/Zipcode | Phone Number | | Organization | | | | + + + + + | [facility] | [address] | [place] [address] | [phone] | + + + + + POC Glucose (03/29/2019 20:59 PDT) + + + + + + | Component | Value | Ref Range | Performed | Pathologist | | | | | At | Signature | + + + + + + | Glucose, | 172 (H)Comment: Testing | 65 - 99 mg/dL | [facility] | | | POC | performed at [facility];[address] | | LABORATORY | | | | [address];[place] | | | | | | [address] | | | | + + + + + + + + | Specimen | + + | | + + + + + + + | Performing | Address | City/State/Zipcode | Phone Number | | Organization | | | | + + + + + | [facility] | [address] | [place] [address] | [phone] | + + + + + XR [...] + + | Performing | Address | City/State/[facility] | Phone Number | | [...] Testing | 65 - 99 mg/dL | [facility] | | | POC | performed at [facility];[address] | | LABORATORY | | | | [address];[place] | | | | | | [address] | | | | + + + + + + + + | Specimen | + + | | + + + + + + + | Performing | Address | City/State/Zipcode | Phone Number | | Organization | | | | + + + + + | [facility] | [address] | [place] [address] | [phone] | + + + + + Type [...] + + + | BB BAND | [id number] | | [facility] | | | | | | LABORATORY | | + + + + + + | BB BAND | Testing performed at | | [facility] | | | | [facility];[address] | | LABORATORY | | | | [address];[place] [address] | | | | + + + + + + + + | Specimen | + + | Blood | + + + + + + + | Performing | Address | City/State/Zipcode | Phone Number | | Organization | | | | + + + + + | [facility] | [address] | [place] [address] | [phone] | + + + + + POC Glucose (03/29/2019 6:42 PDT) + + + + + + | Component | Value | Ref Range | Performed | Pathologist | | | | | At | Signature | + + + + + + | Glucose, | 96Comment: Testing | 65 - 99 mg/dL | [facility] | | | POC | performed at [facility];[address] | | LABORATORY | | | | [address];[place], [place] | | | | | | [address] | | | | + + + + + + + + | Specimen | + + | | + + + + + + + | Performing | Address | City/State/Zipcode | Phone Number | | Organization | | | | + + + + + | [facility] | [address] | [place] [address] | [phone] | + + + + + documented [...]
--- OUTSIDE RECORDS SUMMARY | ~2019-04-06 | XMS | Encounter Summary ---
Demographics + + + | Address | [address] | | | [place] [address] | + + + | Home Phone | | + + + | Preferred Language | Unknown | + + + | Marital Status | | + + + | Evangelical Affiliation | Unknown | + + + | Race | White | + + + | Ethnic Group | Not or | + + + Author + + + | Author | [facility] | + + + | Organization | [facility] | + + + | [...] Team Providers + +------+ + | Care Spot Welder Name | Role | Phone | + [...] [address] | | | | | | [place], [place] | | | | | | [address] | | | +--------+ + + + [...]
--- OUTSIDE RECORDS SUMMARY | ~2019-04-06 | XMS | Encounter Summary ---
Demographics + + + | Address | [address] | | | [place] [address] | + + + | Home Phone [...] + + + | Author | [facility] | + + + | Organization | [facility] | + + + | Address [...] Team Providers + +------+ + | Care Egg Factory Worker Name | Role | Phone | + +------+ + PCP | Unavailable | + +------+ + Encounter Details +--------+ + + + + | Date | Type | Department | Care Team | Description | +--------+ + + + + | 03/20/ | Transcribed | Allergy Clinic at | Dictation, Other | Transcribed | | 1996 | | [facility] [address] | | | | | | [address] | | | | | | Mailcode: [address] | | | | | | [address] | | | | | | [place], | | | | | | [place] [address] | | | | | | [phone] | | | +--------+ + + + [...] as of this encounter Progress Notes Interface, Online Journalist In - 07/30/2006 1:06 AM PST [address] [address] or March 20, 1997 AKIRA LEOS MD [facility] [address] [place] [address] RE:Scarlet Murguia MR#:[id number] Leos: We saw Mrs. Scarlet Murguia for a rheumatology consultation at [facility] on March 20, 1997. 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 Sincerely, Damaso Franks M.D. Resident, Internal Medicine TERRY/artemio cc: Samia Montano M.D. Human Resources Services Specialist, Medicine Rheumatology and Arthritis documented in this encounter Plan of Treatment Not on filedocumented as of this encounter Visit Diagnoses Not on filedocumented in this encounter
--- OUTSIDE RECORDS SUMMARY | ~2019-04-06 | XMS | Encounter Summary ---
Demographics + + + | Address | [address] | | | [place] [address] | + + + | Home Phone [...] Author | [facility] | | | and Khurramana | + + + | Organization | [facility] | | | and [...] Team Providers + +------+ + | Care Chief Supply Chain Officer Name | Role | Phone | [...] + + | 03/29/ | Anesthesia | [facility] | Michela Eli | | | 2019 | Event | [facility] | MD Jena [address] | | | | | [address]PER[address] | [place], [place] | | | | | [facility] | [address] | | | | | [place], [place] | | | | | | [address] | | | | | | [phone] | | | +--------+ + + + [...] +----+---+ + + | | 0 | [place] | | | | 8 | 43-degrees [...] 03/30/19 0431 by | | eral | [id number]-[id number] catheter system; | Paula Young RN | [...] | | | | | | [place] [address] | | | | | | [phone] | | | | | | | | +--------+---------+ + + + | 05/16/ | Office | Orthopedic Surgery | Mark Montana | | | 2018 | Visit | | MD Paul Foley | | | | | | [place] [address] | | | | | | [place] [address] | | | | | | [phone] | | | | | | | | +--------+---------+ + + + | 06/30/ | Office | Cardiology | Smitha Griffin DO | | | 2019 | Visit | | [address] | | | | | | [place], [place] | | | | | | [address] | | | | | | | [...]
--- OUTSIDE RECORDS SUMMARY | ~2019-04-06 | XMS | Encounter Summary ---
Demographics + + + | Address | [address] | | | [place] [address] | + + + | Home Phone [...] | Author | [facility] | | | and Khurramana | + + + | Organization | [facility] | | | and [place] [...] Providers + +------+ + | Care Operations Management Trainee Name | Role | Phone | + [...] [place] | | | | | [address] | [place] [address] | | | | | [phone] | [phone] | | | | | | | [...] [place], | | | | | | [place] [address] | | | | | | [phone] | | | | | | | | +--------+---------+ + + + | 05/16/ | Office | Orthopedic Surgery | Mark Montana | | | 2018 | Visit | | MD Paul Foley | | | | | | [address] | | | | | | [place] [address] | | | | | | [phone] | | | | | | | | +--------+---------+ + + + | 06/30/ | Office | Cardiology | Smitha Griffin DO | | | 2020 | Visit | | [address] | | | | | | [place] | | | | | | [id number] | | | | | | | | +--------+---------+ + + + documented as of this encounter Visit Diagnoses Not on filedocumented in this encounter"
--- OUTSIDE RECORDS SUMMARY | ~2019-04-06 | XMS | Encounter Summary ---
Demographics + + + | Address | [address] | | | [place] [address] | + + + | Home Phone [...] Author | [facility] | | | and Khurramana | + + + | Organization | [facility] | | | and [place] [...] Team Providers + +------+ + | Care Lab Support Service Tech Name | Role | Phone | + +------+ + | Susan Leos | PCP | | | PA-C | | | + +------+ + Encounter Details +--------+ + + + + | Date | Type | Department | Care Team | Description | +--------+ + + + + | 03/21/ | Preadmit | [facility] | Mark Montana | | | 2019 | Visit | [facility] | MD Alaina [address] | | | | | CLINIC [address] | [place] | | | | | [place], [place] | [place] [address] | | | | | [address] | [phone] | | | | | [phone] | | | +--------+ + + + [...] were given in the hospital. Wear them [id number] d ay for3 to 4weeks. To relieve discomfort at night, get up and move around. Tell all your healthcare providers including your dentist about your artificial join t before any procedure. You mayneed to take antibiotics before dental work and other medic al procedures to reduce the risk of infection. Arrangeto have your lobito removed [id number] after surgery. The lobito were u sed [...] ur hip joint. Use a raisedtoilet seat [id number] after surgery. Ask your healthcare provider if [...] put on socks and shoes. And don't brass pickler items from the floor. Use a cane, [...] draining from the incision Date Last Reviewed: 10/13/201719996939-0457 [employer]. [address] [place] [address], [place] [id number]. All righ ts reserved. This information is [...] day of proced ure Multiple Vitamins-Minerals ([facility]) MISC Take by mouth. DO NOT TAKE day of procedure Balko-3 Fatty Acids (PRO NUTRIENTS OMEGA 3 PO) [...] | | | | | | [place] [address] | | | | | | [phone] | | | | | | | | +--------+---------+ + + + | 05/16/ | Office | Orthopedic Surgery | Mark Montana | | | 2018 | Visit | | MD Paul Foley | | | | | | [place] | | | | | | [place] [address] | | | | | | [phone] | | | | | | | | +--------+---------+ + + + | 06/30/ | Office | Cardiology | Griffin Smitha, DO | | | 2019 | Visit | | [address] | | | | | | [place] | | | | | | [address] | | | | | | | [...] Antibody | Testing performed at | | [facility] | | | Screen | [facility];[address] | | LABORATORY | | | | [address];[place] [address] | | | | + + + + + + + + | Specimen | + + | Blood | + + + + + + + | Performing | Address | City/State/Zipcode | Phone Number | | Organization | | | | + + + + + | [facility] | [address] | [place] [address] | [phone] | + + + + + MRSA [...] | | performed at [facility] | | LABORATORY | | | | [address];[place] | | | | | | [address] | | | | + + + + + + + + | Specimen | + + | Tissue | + + + + + + + | Performing | Address | City/State/Zipcode | Phone Number | | Organization | | | | + + + + + | [facility] | [address] | [place] [address] | [phone] | + + + + + Hemoglobin A1C (03/21/2019 15:33 PDT) + + + + + + | Component | Value | Ref Range | Performed | Pathologist | | | | | At | Signature | + + + + + + | Hemoglobin | 5.8Comment: HbA1c method | 4.0 - 6.0 % | [facility] | | | A1c | is [...] | 120Comment: Estimated | <154 mg/dL | [facility] | | | Average | Average Glucose | | LABORATORY | | | Glucose | calculated from | | | | | | hemoglobin A1c by use of | | | | | | the ADArecommended | | | | | | formula.Testing | | | | | | performed at [facility], [address] | | | | | | [facility], | | | | | | [place] [address] | | | | + + + + + + + + | Specimen | + + | Blood | + + + + + + + | Performing | Address | City/State/Zipcode | Phone Number | | Organization | | | | + + + + + | [facility] | [address] | [place] [address] | [phone] | + + + + + CBC [...] [place];[address] | | | | | | [address];[place] | | | | | | [address] | | | | + + + + + + + + | Specimen | + + | Blood | + + + + + + + | Performing | Address | City/State/Zipcode | Phone Number | | Organization | | | | + + + + + | [facility] | [address] | [place] [address] | [phone] | + + + + + Basic [...] [place];[address] | | | | | | [facility];[place], [place] | | | | | | [address] | | | | + + + + + + + + | Specimen | + + | Blood | + + + + + + + | Performing | Address | City/State/Zipcode | Phone Number | | Organization | | | | + + + + + | [facility] | [address] | [place] [address] | [phone] | + + + + + ECG [...]
--- OUTSIDE RECORDS SUMMARY | ~2019-04-06 | XMS | Encounter Summary ---
Demographics + + + | Address | [address] | | | [place] [address] | + + + | Home Phone | | + + + | Preferred Language | Unknown | + + + | Marital Status | | + + + | Spiritism Affiliation | Unknown | + + + | Race | White | + + + | Ethnic Group | Not or | + + + Author + + + | Author | [facility] | + + + | Organization | [facility] | + + + | [...] Team Providers + +------+ + | Care Yacht Hand Name | Role | Phone | [...] [address] | | | | | | [place], [place] | | | | | | [address] | | | +--------+ + + + [...]
--- OUTSIDE RECORDS SUMMARY | ~2019-04-06 | XMS | Encounter Summary ---
Demographics + + + | Address | [address] | | | [place] [address] | + + + | Home Phone | | + + + | Preferred Language | Unknown | + + + | Marital Status | | + + + | Sabianism Affiliation | 1077 | + + + | Race | Unknown | + + + | Ethnic Group | Unknown | + + + Author + + + | Author | [facility] Neal | | | and Khurramana | + + + | Organization | [facility] Neal [...] Team Providers + +------+ + | Care Tire Classifier Name | Role | Phone | + +------+ + | Susan Leos | PCP | | | PA-C | | | + +------+ + Encounter Details +--------+ + + + + | Date | Type | Department | Care Team | Description | +--------+ + + + + | 03/14/ | [facility] | [facility] | Mark [place] | Left hip pain | | 2018 | Encounter | [address] | MD [address] | | | | [address] | [place] | | | | | [place], [place] | [place] [address] | | | | | [address] | [phone] | | | | | [phone] | | | +--------+ + + + [...] + + + +---------+ + + | [place]-3 Fatty | Take 1 tablet by | [...] | | | | | | [place] [address] | | | | | | [phone] | | | | | | | | +--------+---------+ + + + | 05/16/ | Office | Orthopedic Surgery | Mark [place] | | | 2018 | Visit | | MD Paul Foley | | | | | | [address] [place] | | | | | | [place] [address] | | | | | | [phone] | | | | | | | | +--------+---------+ + + + | 06/30/ | Office | Cardiology | Smitha Griffin DO | | | 2019 | Visit | | [address] | | | | | | [place] | | | | | | [address] | | | | | | | [...]
--- OUTSIDE RECORDS SUMMARY | ~2019-04-06 | XMS | Encounter Summary ---
Demographics + + + | Address | [address] | | | [place] [address] | + + + | Home Phone [...] | Author | [facility] | | | and Khurramana | + + + | Organization | [facility] [...] Providers + +------+ + | Care Clinical Technologist Name | Role | Phone | + +------+ + | Susan Leos | PCP | | | PA-C | | | + +------+ + Encounter Details +--------+ + + + + | Date | Type | Department | Care Team | Description | +--------+ + + + + | 03/21/ | Preadmit | [facility] | Mark [place] | | | 2019 | Visit | [facility] | MD Alaina [address] | | | | | CLINIC [address] | [place] | | | | | [place], [place] | [place] [address] | | | | | [address] | [phone] | | | | | [phone] | | | +--------+ + + + [...] were given in the hospital. Wear them [id number] d ay for3 to 4weeks. To relieve discomfort at night, get up and move around. Tell all your healthcare providers including your dentist about your artificial join t before any procedure. You mayneed to take antibiotics before dental work and other medic al procedures to reduce the risk of infection. Arrangeto have your lobito removed [id number] after surgery. The lobito were u sed [...] ur hip joint. Use a raisedtoilet seat tsk6quoin after surgery. Ask your healthcare provider if [...] put on socks and shoes. And don't pick and shovel man items from the floor. Use a cane, [...] draining from the incision Date Last Reviewed: 10/13/201719997694-4469 [employer]. [address] [place] [address], [place] [id number]. All righ ts reserved. This information is not intended as a substitute for professional medical care. Always follow your healthcare professional's instructions. Outpatient Medications Marked as Taking for the 03/21/19 encounter (Preadmit Visit) with [facility] PAS ROOM 2 Medication Sig Instructions acetaminophen [...] TAKE day of proced ure Multiple Vitamins-Minerals ([facility]) MISC Take by mouth. DO NOT TAKE day of procedure Helen-3 Fatty Acids (PRO NUTRIENTS OMEGA 3 PO) [...] | | | | | | [place] [address] | | | | | | [phone] | | | | | | | | +--------+---------+ + + + | 05/16/ | Office | Orthopedic Surgery | Mark [place] | | | 2018 | Visit | | MD Paul Foley | | | | | | [place] | | | | | | [place] [address] | | | | | | [phone] | | | | | | | | +--------+---------+ + + + | 06/30/ | Office | Cardiology | Griffin Smitha, DO | | | 2019 | Visit | | [address] | | | | | | [place] | | | | | | [address] | | | | | | | [...] Antibody | Testing performed at | | [facility] | | | Screen | [facility];[address] | | LABORATORY | | | | Blvd;[place] [address] | | | | + + + + + + + + | Specimen | + + | Blood | + + + + + + + | Performing | Address | City/State/Zipcode | Phone Number | | Organization | | | | + + + + + | [facility] | [address] | [place] [address] | [phone] | + + + + + MRSA [...] [facility] | | | | performed at [facility] | | LABORATORY | | | | [place] | | | | | | [address] | | | | + + + + + + + + | Specimen | + + | Tissue | + + + + + + + | Performing | Address | City/State/Zipcode | Phone Number | | Organization | | | | + + + + + | [facility] | [address] | [place] [address] | [phone] | + + + + + Hemoglobin A1C (03/21/2019 15:33 PDT) + + + + + + | Component | Value | Ref Range | Performed | Pathologist | | | | | At | Signature | + + + + + + | Hemoglobin | 5.8Comment: HbA1c method | 4.0 - 6.0 % | [facility] | | | A1c | is [...] | 120Comment: Estimated | <154 mg/dL | [facility] | | | Average | Average Glucose | | LABORATORY | | | Glucose | calculated from | | | | | | hemoglobin A1c by use of | | | | | | the ADArecommended | | | | | | formula.Testing | | | | | | performed at [facility], [address] | | | | | | [facility], | | | | | | [place] [address] | | | | + + + + + + + + | Specimen | + + | Blood | + + + + + + + | Performing | Address | City/State/Zipcode | Phone Number | | Organization | | | | + + + + + | [facility] | [address] | [place] [address] | [phone] | + + + + + CBC [...] | | | | | performed at [facility];[address] | | | | | | [address];[place] | | | | | | [address] | | | | + + + + + + + + | Specimen | + + | Blood | + + + + + + + | Performing | Address | City/State/Zipcode | Phone Number | | Organization | | | | + + + + + | [facility] | [address] | [place] [address] | [phone] | + + + + + Basic [...] | | | | | performed at [facility];[address] | | | | | | [facility];[place], [place] | | | | | | [address] | | | | + + + + + + + + | Specimen | + + | Blood | + + + + + + + | Performing | Address | City/State/Zipcode | Phone Number | | Organization | | | | + + + + + | [facility] | [address] | [place] [address] | [phone] | + + + + + ECG [...]
--- OUTSIDE RECORDS SUMMARY | ~2019-04-06 | XMS | Encounter Summary ---
Demographics + + + | Address | [address] | | | [place] [address] | + + + | Home Phone | | + + + | Preferred Language | Unknown | + + + | Marital Status | | + + + | Gnosticist Affiliation | Unknown | + + + | Race | White | + + + | Ethnic Group | Not or | + + + Author + + + | Author | [facility] | + + + | Organization | [facility] | + + + | Address [...] Team Providers + +------+ + | Care Factory Process Workers Name | Role | Phone | + [...] [address] | | | | | | [facility] | | | | | | and Healing, | | | | | | Building [address], [address]th | | | | | | Floor [place], [place] | | | | | | [address] | | | | | | [phone] | | | +--------+ + + + [...] | | | | | | skin, [id number]. The | | | | | | [...] [facility] | [address], [address] | [place] [address] | | | DERMATOPATHOLOGY | [address] | | | + + + + + documented in this encounter Visit Diagnoses + + | Diagnosis | + + | Other melanin hyperpigmentation | + + documented in this encounter
--- OUTSIDE RECORDS SUMMARY | ~2019-04-06 | XMS | Encounter Summary ---
Demographics + + + | Address | [address] | | | [place] [address] | + + + | Home Phone [...] + | Author | [facility] | + + + | Organization | [facility] | + + + | Address [...] Team Providers + +------+ + | Care Banquet Captain Name | Role | Phone | + [...] CH16D | | | | | | [facility] | | | | | | and Healing, | | | | | | Building [address], [address]th | | | | | | Floor [place], [place] | | | | | | [address] | | | | | | [phone] | | | +--------+ + + + [...] ls | | | | | | Received:[id number] | | | | | | 360-16 [...] Materials | | | | | | Returned:[id number] | | | | | | 360-16 [...] + + | [facility] | Mail[address], [address] | [place] [address] | | | DERMATOPATHOLOGY | [address] | | | + + + + + documented in this encounter Visit Diagnoses Not on filedocumented in this encounter"
--- OUTSIDE RECORDS SUMMARY | ~2019-04-06 | XMS | Encounter Summary ---
Demographics + + + | Address | [address] | | | [place] [address] | + + + | Home Phone [...] | Author | [facility] | | | and Khurramana | + + + | Organization | [facility] | | | and [place] [...] Team Providers + +------+ + | Care Telecommunications Linesworker Name | Role | Phone | + [...] Services | Therapy | | Gus | [facility] | | | Required | | Post-traumat | PA-C [address] | [address]YSICAL | | | | | ic | [address] | THERAPY [address] | | | | | osteoarthrit | [place] | [place] | | | | | is of left | [place] | [place] | | | | | hip | [address] | [address] | | | | | | Phone: | Phone: | | | | | | [phone] | [phone] | | | | | | Fax: | Fax: | | | | | | [phone] | [phone] | + + + + + + [...] | | | | | from | [address] | [address] | | | | | [place] at | [address] | [address] | | | | | [facility] | [place], | [place], [place] | | | | | Procedures | [place] | [address] Phone: | | | | | NEW PATIENT | [address] | [phone] | | | | | | Phone: | Fax: | | | | | | [phone] | [phone] | | | | | | Fax: | | | | | | | [phone] | | + +--------+ + + + + Encounter Details +--------+---------+ + + + | Date | Type | Department | Care Team | Description | +--------+---------+ + + + | 03/21/ | Office | [facility] | Gus Orozco, | 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[place], [place]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[place], | left hip (Primary | | | | [address] | [place] [address] | Dx) | | | | [phone] | [phone] | | | | | | | [...] Procedure: ERCP; Surgeon: Gregor Mccord MD; Location: [facility] MEDICAL PROCEDURE UNIT ERCP N/A 10/14/2016 Procedure: ERCP w/ stent pull; Surgeon: Gregor Mccord MD; Location: [facility] MEDICAL PROC[facility]U RE UNIT PARTIAL HYSTERECTOMY [...] Maternal Uncle Social History Occupational History 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 Tobacco Use Smoking status: Never [...] MISC, Take by mouth., Disp: , Rfl: [place]-3 Fatty Acids (PRO NUTRIENTS OMEGA 3 PO), [...] 12 months?:yes Under the care of a kinesiotherapist?: no Diabetes Optimization?:well controlled diet No results found for: LABGLYC History of MRSA/MSSA infection?:no Metal sensitivity or allergy?:no Intolerance to certain specific opiate?:no DVT/PE Risk Stratification Personal history of DVT/PE?:no Cancer treatment in the last 5 years?:no Hormone replacement therapy?:no Tolerate aspirin?:asa Current Anticoagulation?:asa Chemical prophylaxis plan:asa Anticipated Discharge Plan Discharge home to care of daughter (princess), Physical therapy in [facility] Return for 2 and 6 weeks post [...] [place] | | | | | | [place] [address] | | | | | | [phone] | | | | | | | | +--------+---------+ + + + | 05/16/ | Office | Orthopedic Surgery | Mark [place] | | | 2018 | Visit | | MD Paul Foley | | | | | | [place] | | | | | | [place] [address] | | | | | | [phone] | | | | | | | | +--------+---------+ + + + | 06/30/ | Office | Cardiology | Smitha Griffin DO | | | 2019 | Visit | | [address] | | | | | | [place] | | | | | | [address] | | | | | | | [...]
--- OUTSIDE RECORDS SUMMARY | ~2019-04-06 | XMS | Encounter Summary ---
Demographics + + + | Address | [address] | | | [place] [address] | + + + | Home Phone | | + + + | Preferred Language | Unknown | + + + | Marital Status | | + + + | Latter-Day Affiliation | Unknown | + + + | Race | White | + + + | Ethnic Group | Not or | + + + Author + + + | Author | [facility] | + + + | Organization | [facility] | + + + | [...] Team Providers + +------+ + | Care General Expeditor Name | Role | Phone | + [...] CH16D | | | | | | [facility] | | | | | | and Healing, | | | | | | Building 1, 5th | | | | | | Floor [place], [place] | | | | | | [address] | | | | | | [phone] | | | +--------+ + + + [...] ls | | | | | | Received:[id number] | | | | | | 360-16 [...] Materials | | | | | | Returned:[id number] | | | | | | 360-16 [...] + + | [facility] | [address], [address] | [place] [address] | | | DERMATOPATHOLOGY | [address] | | | + + + + + documented in this encounter Visit Diagnoses Not on filedocumented in this encounter"
--- OUTSIDE RECORDS SUMMARY | ~2019-04-06 | XMS | Clinical Summary ---
Demographics + + + | Address | [address] | | | [place] [address] | + + + | Home Phone | | + + + | Preferred Language | Unknown | + + + | Marital Status | | + + + | Sabianist Affiliation | Unknown | + + + | Race | Unknown | + + + | Ethnic Group | Unknown | + + + Author + + + | Author | [facility] (Historical as of | | | 01-29-19) | + + + | Organization | [facility] (Historical as of | | | 01-29-19) | + + + | Address | Unknown | + + + | Phone | Unavailable | + + + Support + + + + + | Name | Relationship | Address | Phone | + + + + + | Alejo Murguia | DIRK | [address] | | | | | [place] [address] | | + + + + + Care Team Providers + +------+ + | Care Softball Winder Name | Role | Phone | [...]
--- OUTSIDE RECORDS SUMMARY | ~2019-04-06 | XMS | Clinical Summary ---
Demographics + + + | Address | [address] | | | [place] [address] | + + + | Home Phone [...] Team Providers + +------+ + | Care Statistical Engineer Name | Role | Phone | + +------+ + PCP | Unavailable | + +------+ + Source Comments FIORELLA is fully live on both [facility] Ambulatory and [facility] InPatient.[facility] Allergies Not on File Medications Not on [...] | OLOGY | | | | Case: [id number] | | | | | | | [...] [facility] | [address], [address] | [place] [address] | | | DERMATOPATHOLOGY | [address] [...] | [employer] | xxxxxxxxx | Effect | [phone] | [address] | PPO | | | [employer]ICA | | nestor | 4 | [address] | | | | RE PPO | | for | | [place], | | | | | | all | | [place] [address] | | | | | | dates [...] | 1936 | [phone] | [place] [address] | | | [place] | | | 3 (Home) | | + +--------+ +--------+ + +
--- OUTSIDE RECORDS SUMMARY | ~2019-04-06 | XMS | Clinical Summary ---
Demographics + + + | Address | [address] | | | [place] [address] | + + + | Home Phone [...] + | Author | [facility] | | | and Khurramana | + + + | Organization | [facility] | | | and [...] Providers + +------+ + | Care Toddler Caregiver Name | Role | Phone | [...] | | | | e | | ([facility]) | | | | | | | | MISC | | | | | | | + + + +---------+------+------+-------+ | [place]-3 Fatty | Take 1 tablet by | [...] automatically from request for surgery | | [id number] | + + + + + | [...] Appointment | | 2018 | | | Adjunct Faculty Mathematics Department | | +--------+ + + + + [...] | | | | | | [place] [address] | | | | | | [phone] | | | | | | | | +--------+---------+ + + + | 05/16/ | Office | Orthopedic Surgery | Mark [place] | | | 2018 | Visit | | MD Alaina [address] | | | | | | [place] | | | | | | [place] [address] | | | | | | [phone] | | | | | | | | +--------+---------+ + + + | 06/30/ | Office | Cardiology | Smitha Griffin DO | | | 2019 | Visit | | [address] | | | | | | [place] | | | | | | [address] | | | | | | | [...] MD | | | | | | /[address] | | | | | | | [...] MD | | | | | | /[address] | | | | | | | | 802 | + +--------+--------+ +--------+--------+--------+ | Stent Bili Advnx 10fr 5cm - | Stent | | [place] | | | 3432 / | | [id number]: Qty: 1 on | | | SCIENTIFIC [...] [place] | | | | | | /[address] | | | | | | | | [address] | + +--------+--------+ +--------+--------+--------+ | Screw Hex Lp [id number] - | | Left: | RANDI | [...] Testing | 65 - 99 mg/dL | [facility] | | | POC | performed at [facility];[address] | | LABORATORY | | | | [address];[place] | | | | | | [address] | | | | + + + + + + + + | Specimen | + + | | + + + + + + + | Performing | Address | City/State/Zipcode | Phone Number | | Organization | | | | + + + + + | [facility] | [address] | [place] [address] | [phone] | + + + + + Hemoglobin [...] | | | | performed at [facility];[address] | | LABORATORY | | | | [address];[place], [place] | | | | | | [address] | | | | + + + + + + + + | Specimen | + + | Blood | + + + + + + + | Performing | Address | City/State/Zipcode | Phone Number | | Organization | | | | + + + + + | [facility] | [address] | [place] [address] | [phone] | + + + + + XR [...] + + + | [facility] | [id number] | | [facility] | | | | | | LABORATORY | | + + + + + + | [facility] | Testing performed at | | [facility] | | | | [facility];[address] | | LABORATORY | | | | Sam;[place] [address] | | | | + + + + + + + + | Specimen | + + | Blood | + + + + + + + | Performing | Address | City/State/Zipcode | Phone Number | | Organization | | | | + + + + + | [facility] | [address] | [place] [address] | [phone] | + + + + + Neuraxial [...] | | | | performed at [facility];[address] | | LABORATORY | | | | [address];[place], [place] | | | | | | [address] | | | | + + + + + + + + | Specimen | + + | Tissue | + + + + + + + | Performing | Address | City/State/Zipcode | Phone Number | | Organization | | | | + + + + + | [facility] | [address] | [place] [address] | [phone] | + + + + + CBC [...] | | | | performed at [facility] | | | | | | [address];[place], [place] | | | | | | [address] | | | | + + + + + + + + | Specimen | + + | Blood | + + + + + + + | Performing | Address | City/State/Zipcode | Phone Number | | Organization | | | | + + + + + | [facility] | [address] | [place] [address] | [phone] | + + + + + Hemoglobin A1C (03/21/2019 15:33 PDT) + + + + + + | Component | Value | Ref Range | Performed | Pathologist | | | | | At | Signature | + + + + + + | Hemoglobin | 5.8Comment: HbA1c method | 4.0 - 6.0 % | [facility] | | | A1c | [...] | 120Comment: Estimated | <154 mg/dL | [facility] | | | Average | Average Glucose | | LABORATORY | | | Glucose | calculated from | | | | | | hemoglobin A1c by use of | | | | | | the ADArecommended | | | | | | formula.Testing | | | | | | performed at [facility], [address] | | | | | | [facility], | | | | | | [place] [address] | | | | + + + + + + + + | Specimen | + + | Blood | + + + + + + + | Performing | Address | City/State/Zipcode | Phone Number | | Organization | | | | + + + + + | [facility] | [address] | [place] [address] | [phone] | + + + + + Basic [...] | | | | performed at [facility];[address] | | | | | | [address];[place], [place] | | | | | | [address] | | | | + + + + + + + + | Specimen | + + | Blood | + + + + + + + | Performing | Address | City/State/Zipcode | Phone Number | | Organization | | | | + + + + + | [facility] | [address] | [place] [address] | [phone] | + + + + + ECG [...] | [employer] | [facility] | [id number] | 06/15/19 | | | Medica | | | HEALTH | | 17-Pre | | | re | | | MDCR | | sent | | | | + +--------+ +--------+-------+---------+--------+ | [employer] | [employer] | [id number] | | | | Medica | | [...] | 1936 | [phone] | [place] [address] | | | [place]atou | | | 3 (Home) | | + +--------+ +--------+ + + | BladeScarlet Jessa | Person | Self [birth year] | [address] | | | al/Fam | | 1936 | [phone] | [place] [address] | | | [place]atou | | | 3 (Home) | | + +--------+ +--------+ + + Advance Directives Patient has advance care planning documents, and code status on file. For more information, please contact:[facility] and [place] [address] + + + + + | Code Status | Date | Date | Comments | | | Activated | Inactivated | | + + + + + | Full Code | 03/29/2019 | 03/31/2019 | | | | 14:18 | 16:40 | | + + + + +
--- OUTSIDE RECORDS SUMMARY | ~2019-04-06 | XMS | Encounter Summary ---
Demographics + + + | Address | [address] | | | [place] [address] | + + + | Home Phone | | + + + | Preferred Language | Unknown | + + + | Marital Status | | + + + | Mormon Affiliation | Unknown | + + + | Race | White | + + + | Ethnic Group | Not or | + + + Author + + + | Author | [facility] | + + + | Organization | [facility] | + + + | Address [...] Team Providers + +------+ + | Care Dovetailer Name | Role | Phone | + [...] Clinic Dermatology | | | | | [facility] | [address] [facility] | | | | | and Healing, | [place] | | | | | [facility] | [address] | | | | | Floor [place], [place] | | | | | | [address] | | | | | | [phone] | | | +--------+ + + + [...] | OLOGY | | | | Case: [id number] | | | | | | | [...] | [facility] | [address] | [place] [address] | | | DERMATOPATHOLOGY | [address] | | | + + + + + documented in this encounter Visit Diagnoses + + | Diagnosis | + + | Neoplasm of uncertain behavior of skin | + + documented in this encounter
--- OUTSIDE RECORDS SUMMARY | ~2019-04-06 | XMS | Encounter Summary ---
Demographics + + + | Address | [address] | | | [place] [address] | + + + | Home Phone [...] Author | [facility] | | | and Khurramana | + + + | Organization | [facility] | [...] Providers + +------+ + | Care Director Motion Picture Name | Role | Phone | + [...] | | | | | from | [address] | [address] | | | | | [place] at | [address] | [address] | | | | | [facility] | [place], | [place], [place] | | | | | Procedures | [place] | [address] Phone: | | | | | NEW PATIENT | [address] | [phone] | | | | | | Phone: | Fax: | | | | | | [phone] | [phone] | | | | | | Fax: | | | | | | | [phone] | | + +--------+ + + + + Encounter Details +--------+---------+ + + + | Date | Type | Department | Care Team | Description | +--------+---------+ + + + | 09/30/ | Office | [facility] | Mark [place] | 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[place], [place]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 (Primary | | | | [address] | [place] [address] | Dx) | | | | [phone] | [phone] | | | | | | | [...] stent pull; Surgeon: Gregor Mccord MD; Location: [facility] RE UNIT PARTIAL HYSTERECTOMY 1972 RECTOCELE [...] mouth Daily., Disp: , Rfl: Multiple Vitamins-Minerals ([facility]) MISC, Take by mouth., Disp: , Rfl: [place]-3 Fatty Acids (PRO NUTRIENTS OMEGA 3 PO), [...] | | | | | | [place] [address] | | | | | | [phone] | | | | | | | | +--------+---------+ + + + | 05/16/ | Office | Orthopedic Surgery | Mark [place] | | | 2018 | Visit | | MD Paul Foley | | | | | | [place] | | | | | | [place] [address] | | | | | | [phone] | | | | | | | | +--------+---------+ + + + | 06/30/ | Office | Cardiology | Smitha Griffin DO | | | 2019 | Visit | | [address] | | | | | | [place] | | | | | | [address] | | | | | | | [...]
--- OUTSIDE RECORDS SUMMARY | ~2019-04-06 | XMS | Encounter Summary ---
Demographics + + + | Address | [address] | | | [place] [address] | + + + | Home Phone | | + + + | Preferred Language | Unknown | + + + | Marital Status | | + + + | Baptism Affiliation | Unknown | + + + [...] | Transcribed | | 1996 | | [facility] [address] | | | | | | [address] | | | | | | Mailcode: [id number] | | | | | | [address] | | | | | | [place], | | | | | | [place] [address] | | | | | | [phone] | | | +--------+ + + + [...] as of this encounter Progress Notes Interface, Civil Process Server In - 07/30/2006 1:06 AM PST [address] [address] or March 20, 1997 AKIRA LEOS MD [facility] [address] [place] [address] RE:Scarlet Murguia MR#:[id number] Leos: We saw Mrs. Scarlet Murguia for a rheumatology consultation at [facility] on March 20, 1997. The [...] se, as manifested by pain at rest, installation manager stiffness for greater than an hour or [...] Thank you for your referral to the [facility]. Sincerely, Damaso Franks M.D. Resident, Internal Medicine TERRY/artemio cc: Samia Montano M.D. Hasher Machine Operator, Medicine Rheumatology and Arthritis documented in this encounter Plan of Treatment Not on filedocumented as of this encounter Visit Diagnoses Not on filedocumented in this encounter
--- OUTSIDE RECORDS SUMMARY | ~2019-04-06 | XMS | Encounter Summary ---
Demographics + + + | Address | [address] | | | [place] [address] | + + + | Home Phone [...] + | Author | [facility] | | | and Khurramana | + + + | Organization | [facility] | | | and [place] [...] Providers + +------+ + | Care Gas Furnace Installer Name | Role | Phone | [...] Surgery Appointment | | 2018 | | [place] [address] | Slasher Runner | | | | | [place] | | | | | | [address] | | | | | | [phone] | | | +--------+ + + + [...] | | | | | | [place] [address] | | | | | | [phone] | | | | | | | | +--------+---------+ + + + | 05/16/ | Office | Orthopedic Surgery | Mark Montana | | | 2018 | Visit | | MD [address] | | | | | | [place] | | | | | | [place] [address] | | | | | | [phone] | | | | | | | | +--------+---------+ + + + | 06/30/ | Office | Cardiology | Smitha Griffin DO | | | 2019 | Visit | | [address] | | | | | | [place] | | | | | | [address] | | | | | | | | +--------+---------+ + + + documented as of this encounter Visit Diagnoses Not on filedocumented in this encounter"
--- OUTSIDE RECORDS SUMMARY | ~2019-04-06 | XMS | Encounter Summary ---
Demographics + + + | Address | [address] | | | [place] [address] | + + + | Home Phone | | + + + | Preferred Language | Unknown | + + + | Marital Status | | + + + | Yazidism Affiliation | Unknown | + + + [...] Providers + +------+ + | Care Laboratory Monitor Name | Role | Phone | + [...] CH16[address] | | | | | | [facility] | | | | | | and Healing, | | | | | | Building [address], 5th | | | | | | Floor [place], [place] | | | | | | [address] | | | | | | [phone] | | | +--------+ + + + [...] ls | | | | | | Received:[id number]/WW-[id number] | | | | | | 360-16 [...] Materials | | | | | | Returned:[id number] | | | | | | 360-16 [...] [facility] | Mailcode [address], [address] | [place] [address] | | | DERMATOPATHOLOGY | [address] | | | + + + + + documented in this encounter Visit Diagnoses Not on filedocumented in this encounter"
--- OUTSIDE RECORDS SUMMARY | ~2019-04-06 | XMS | Encounter Summary ---
Demographics + + + | Address | [address] | | | [place] [address] | + + + | Home Phone [...] + + | Author | [facility] | | | and Khurramana | + + + | Organization | [facility] Neal | [...] Team Providers + +------+ + | Care Boilermaker Mechanic Name | Role | Phone | + +------+ + | Susan Leos | PCP | | | PA-C | | | + +------+ + Encounter Details +--------+ + + + + | Date | Type | Department | Care Team | Description | +--------+ + + + + | 03/14/ | [facility] | [facility] | Mark [place] | Left hip pain | | 2018 | Encounter | [place] [address] | MD [address] | | | | | [address] | [place] | | | | | [place], [place] | [place] [address] | | | | | [address] | [phone] | | | | | [phone] | | | +--------+ + + + [...] + + + +---------+ + + | [place]-3 Fatty | Take 1 tablet by | [...] | | | | | | [place] [address] | | | | | | [phone] | | | | | | | | +--------+---------+ + + + | 05/16/ | Office | Orthopedic Surgery | Mark Montana | | | 2018 | Visit | | MD Paul Foley | | | | | | [place] | | | | | | [place] [address] | | | | | | [phone] | | | | | | | | +--------+---------+ + + + | 06/30/ | Office | Cardiology | Smitha Griffin DO | | | 2019 | Visit | | [address] | | | | | | [place] | | | | | | [address] | | | | | | | [...]
--- OUTSIDE RECORDS SUMMARY | ~2019-04-06 | XMS | Encounter Summary ---
Demographics + + + | Address | [address] | | | [place] [address] | + + + | Home Phone [...] Author | [facility] | | | and Khurramana | + + + | Organization | [facility] | | [...] Providers + +------+ + | Care Clinical Studies Specialist Name | Role | Phone | [...] + + | 03/29/ | Anesthesia | [facility] | Michela Eli | | | 2019 | Event | [facility] | MD Jena [address] | | | | | OPER[address] | [place], [place] | | | | | [facility] | [address] | | | | | [place], [place] | | | | | | [address] | | | | | | [phone] | | | +--------+ + + + [...] +----+---+ + + | | 0 | Delia | | | | 8 | 43-degrees [...] 03/30/19 0431 by | | eral | [id number] catheter system; | Paula Young RN | [...] | | | | | | [place] [address] | | | | | | [phone] | | | | | | | | +--------+---------+ + + + | 05/16/ | Office | Orthopedic Surgery | Mark Montana | | | 2018 | Visit | | MD Paul Foley | | | | | | [place] | | | | | | [place] [address] | | | | | | [phone] | | | | | | | | +--------+---------+ + + + | 06/30/ | Office | Cardiology | Smitha Griffin DO | | | 2019 | Visit | | [address] | | | | | | [place], [place] | | | | | | [address] | | | | | | | [...]
--- OUTSIDE RECORDS SUMMARY | ~2019-04-06 | XMS | Encounter Summary ---
Demographics + + + | Address | [address] | | | [place] [address] | + + + | Home Phone [...] + | Author | [facility] | | | and Khurramana | + + + | Organization | [facility] [...] Services | Therapy | | Gus | [facility] | | | Required | | Post-traumat | PA-C [address] | PHYSICAL | | | | | ic | [address] | THERAPY [address] | | | | | osteoarthrit | [place] | [address] | | | | | is of left | [place] | [place] | | | | | hip | [address] | [address] | | | | | | Phone: | Phone: | | | | | | [phone] | [phone] | | | | | | Fax: | Fax: | | | | | | [phone] | [phone] | + + + + + + [...] | | | | | from | [address] | [address] | | | | | [place]te[place] at | [address] | [address] [place] | | | | | [facility]CO | [place], | [place], [place] | | | | | Procedures | [place] | [address] Phone: | | | | | NEW PATIENT | [address] | [phone] | | | | | | Phone: | Fax: | | | | | | [phone] | [phone] | | | | | | Fax: | | | | | | | [phone] | | + +--------+ + + + + Encounter Details +--------+---------+ + + + | Date | Type | Department | Care Team | Description | +--------+---------+ + + + | 03/21/ | Office | [facility] | Gus Orozco, | 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[place] [address] [address] | PA-C [address]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[place], [place]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[place], | left hip (Primary | | | | [address] | [place] [address] | Dx) | | | | [phone] | [phone] | | | | | | | [...] Procedure: ERCP; Surgeon: Gregor Mccord MD; Location: [facility] MEDICAL PROCEDURE UNIT ERCP N/A 10/14/2016 Procedure: ERCP w/ stent pull; Surgeon: Gregor Mccord MD; Location: [facility] MEDICAL PROCEDU RE UNIT PARTIAL HYSTERECTOMY [...] Maternal Uncle Social History Occupational History 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 Tobacco Use Smoking status: Never [...] MISC, Take by mouth., Disp: , Rfl: [place]-3 Fatty Acids (PRO NUTRIENTS OMEGA 3 PO), [...] 12 months?:yes Under the care of a obstetrical tech?: no Diabetes Optimization?:well controlled diet No results found for: LABGLYC History of MRSA/MSSA infection?:no Metal sensitivity or allergy?:no Intolerance to certain specific opiate?:no DVT/PE Risk Stratification Personal history of DVT/PE?:no Cancer treatment in the last 5 years?:no Hormone replacement therapy?:no Tolerate aspirin?:asa Current Anticoagulation?:asa Chemical prophylaxis plan:asa Anticipated Discharge Plan Discharge home to care of daughter (princess), Physical therapy in [facility] (legacy [facility]) Return for 2 and 6 [...] [place] | | | | | | [place] [address] | | | | | | [phone] | | | | | | | | +--------+---------+ + + + | 05/16/ | Office | Orthopedic Surgery | Mark Montana | | | 2018 | Visit | | MD Paul Foley | | | | | | [place] | | | | | | [place] [address] | | | | | | [phone] | | | | | | | | +--------+---------+ + + + | 06/30/ | Office | Cardiology | Smitha Griffin DO | | | 2019 | Visit | | [address] | | | | | | [place] | | | | | | [address] | | | | | | | [...]
--- OUTSIDE RECORDS SUMMARY | ~2019-04-06 | XMS | Encounter Summary ---
Demographics + + + | Address | [address] | | | [place] [address] | + + + | Home Phone [...] | Author | [facility] | | | and Khurramana | + + + | Organization | [facility] | [...] Team Providers + +------+ + | Care Prepress Proofer Name | Role | Phone | + [...] Surgery Appointment | | 2018 | | [place] [address] | Manager Relationship | | | | | [place] | | | | | | [address] | | | | | | [phone] | | | +--------+ + + + [...] | | | | | | [place] [address] | | | | | | [phone] | | | | | | | | +--------+---------+ + + + | 05/16/ | Office | Orthopedic Surgery | Mark Montana | | | 2018 | Visit | | MD [address] | | | | | | [place] | | | | | | [place] [address] | | | | | | [phone] | | | | | | | [...]
--- OUTSIDE RECORDS SUMMARY | ~2019-04-06 | XMS | Encounter Summary ---
Demographics + + + | Address | [address] | | | [place] [address] | + + + | Home Phone [...] Author | [facility] | | | and Khurramana | + + + | Organization | [facility] | [...] Team Providers + +------+ + | Care Speech Language Pathologist Prn Name | Role | Phone | + [...] + + | 03/29/ | Hospital | [facility] | Mark [place] | Left hip pain; | | 2019 - | Encounter | [facility] [address] | MD [address] | 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[place], [place] | [place] [address] | left hip | | 2019 | | [address] | [phone] | | | | | [phone] | | | +--------+ + + + [...] ERCP; Surgeon: Gregor Mccord MD; Location: [facility] MEDICAL PROCEDURE UNIT ERCP N/A 10/14/2016 Procedure: ERCP w/ stent pull; Surgeon: Gregor Mccrod MD; Location: [facility] MEDICAL PROCEDU RE UNIT HARDWARE REMOVAL Left 03/29/2019 Procedure: REMOVE HARDWARE LOWER EXTREMITY-HIP; Surgeon: Mark [place] MD; Location : [facility] MAIN OR PARTIAL HYSTERECTOMY 1971 RECTOCELE REPAIR 1991 TAILBONE 1973 broken, partial removal TONSILLECTOMY 1938 TOTAL HIP ARTHROPLASTY Left 03/29/2019 Procedure: Posterior Total Hip Arthroplasty; Surgeon: Mark [place] MD; Location: [facility] MAIN OR Allergies Allergen Reactions Erythromycin Hives,Rash [...] Code [facility]: Gus [facility]co [facility] [address] In 2 weeks Discharge Medications Changed Medications [...] | | | | | | | ([facility]) | | | | | [...] Horowitz RN - 03/29/2019 [facility] Viv Pop RN documented in this encoun [...] [place], | | | | | | [place] [address] | | | | | | [phone] | | | | | | | | +--------+---------+ + + + | 05/16/ | Office | Orthopedic Surgery | Mark Montana | | | 2018 | Visit | | MD [address] | | | | | | [place] | | | | | | [place] [address] | | | | | | [phone] | | | | | | | | +--------+---------+ + + + | 06/30/ | Office | Cardiology | Smitha Griffin DO | | | 2019 | Visit | | [address] | | | | | | [place] | | | | | | [address] | | | | | | | [...] | LABORATORY | | | | [address];[place] | | | | | | [address] | | | | + + + + + + + + | Specimen | + + | | + + + + + + + | Performing | Address | City/State/Zipcode | Phone Number | | Organization | | | | + + + + + | [facility] | [address] | [place] [address] | [phone] | + + + + + POC [...] | LABORATORY | | | | [address];[place] | | | | | | [address] | | | | + + + + + + + + | Specimen | + + | | + + + + + + + | Performing | Address | City/State/Zipcode | Phone Number | | Organization | | | | + + + + + | [facility] | [address] | [place] [address] | [phone] | + + + + + POC Glucose (03/30/2019 20:57 PDT) + + + + + + | Component | Value | Ref Range | Performed | Pathologist | | | | | At | Signature | + + + + + + | Glucose, | 98Comment: Testing | 65 - 99 mg/dL | [facility] | | | POC | performed at [facility];[address] | | LABORATORY | | | | [address];[place], [place] | | | | | | [address] | | | | + + + + + + + + | Specimen | + + | | + + + + + + + | Performing | Address | City/State/Zipcode | Phone Number | | Organization | | | | + + + + + | [facility] | [address] | [place] [address] | [phone] | + + + + + Hemoglobin [...] | LABORATORY | | | | [address];[place], [place] | | | | | | [address] | | | | + + + + + + + + | Specimen | + + | Blood | + + + + + + + | Performing | Address | City/State/Zipcode | Phone Number | | Organization | | | | + + + + + | [facility] | [address] | [place] [address] | [phone] | + + + + + POC [...] | LABORATORY | | | | [address];[place], [place] | | | | | | [address] | | | | + + + + + + + + | Specimen | + + | | + + + + + + + | Performing | Address | City/State/Zipcode | Phone Number | | Organization | | | | + + + + + | [facility] | [address] [facility] | [place] [address] | [phone] | + + + + + POC Glucose (03/29/2019 20:59 PDT) + + + + + + | Component | Value | Ref Range | Performed | Pathologist | | | | | At | Signature | + + + + + + | Glucose, | 172 (H)Comment: Testing | 65 - 99 mg/dL | [facility] | | | POC | performed at [facility];[address] | | LABORATORY | | | | [address];[place] | | | | | | [address] | | | | + + + + + + + + | Specimen | + + | | + + + + + + + | Performing | Address | City/State/Zipcode | Phone Number | | Organization | | | | + + + + + | [facility] | [address] | [place] [address] | [phone] | + + + + + XR [...] Testing | 65 - 99 mg/dL | [facility] | | | POC | performed at [facility];[address] | | LABORATORY | | | | [address];[place] | | | | | | [address] | | | | + + + + + + + + | Specimen | + + | | + + + + + + + | Performing | Address | City/State/Zipcode | Phone Number | | Organization | | | | + + + + + | [facility] | [address] | [place] [address] | [phone] | + + + + + Type [...] + + + | [facility] | [id number] | | [facility] | | | | | | LABORATORY | | + + + + + + | BB BAND | Testing performed at | | [facility] | | | | [facility];[address] | LABORATORY | | | | [address];[place] [address] | | | | + + + + + + + + | Specimen | + + | Blood | + + + + + + + | Performing | Address | City/State/Zipcode | Phone Number | | Organization | | | | + + + + + | [facility] | [address] | [place] [address] | [phone] | + + + + + POC [...] | LABORATORY | | | | [address];[place], [place] | | | | | | [address] | | | | + + + + + + + + | Specimen | + + | | + + + + + + + | Performing | Address | City/State/Zipcode | Phone Number | | Organization | | | | + + + + + | [facility] | [address] | [place] [address] | [phone] | + + + + + documented [...]
--- OUTSIDE RECORDS SUMMARY | ~2019-04-06 | XMS | Encounter Summary ---
Demographics + + + | Address | [address] | | | [place] [address] | + + + | Home Phone [...] Team Providers + +------+ + | Care 911 Emergency Dispatcher Name | Role | Phone | + [...] Clinic Dermatology | | | | | [facility] | [address] [facility] | | | | | and Healing, | [place] | | | | | [facility] | [address] | | | | | Floor [place], [place] | | | | | | [address] | | | | | | [phone] | | | +--------+ + + + [...] | OLOGY | | | | Case: [id number] | | | | | | | [...] | [facility] | Mail[address] | [place] [address] | | | DERMATOPATHOLOGY | [address] | | | + + + + + documented in this encounter Visit Diagnoses + + | Diagnosis | + + | Neoplasm of uncertain behavior of skin | + + documented in this encounter
--- OUTSIDE RECORDS SUMMARY | ~2019-04-06 | XMS | Encounter Summary ---
Demographics + + + | Address | [address] | | | [place] [address] | + + + | Home Phone [...] + | Author | [facility] [employer] (Historical as of | | | 01-29-19) | + + + | Organization | [facility] [employer] (Historical as of | | | 01-29-19) | + + + | Address | Unknown | + + + | Phone | Unavailable | + + + Support + + + + + | Name | Relationship | Address | Phone | + + + + + | Alejo Murguia | DIR[facility] | [address] | | | | | [place] [address] | | + + + + + Care Team Providers + +------+ + | Care Supervisor Type Disk Quality Control Name | Role | Phone | + [...] | 2019 | on Only | Cardiology [place] | [address] | | | | | [address] | [place], [place] | | | | | [place], [place] | [address] | | | | | [address] | | | | | | [phone] | | | +--------+ + + + [...]
--- OUTSIDE RECORDS SUMMARY | ~2019-04-06 | XMS | Encounter Summary ---
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[place], [place]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 | | 2019 | | [address] | [phone] | | | | | [phone] | | | +--------+ + + + [...] Procedure: ERCP; Surgeon: Gregor Mccord MD; Location: [facility] MEDICAL PROCEDURE UNIT ERCP N/A 10/14/2016 Procedure: ERCP w/ stent pull; Surgeon: Gregor Mccord MD; Location: [facility] MEDICAL PROCEDU RE UNIT HARDWARE REMOVAL Left 03/29/2019 Procedure: REMOVE HARDWARE LOWER EXTREMITY-HIP; Surgeon: Mark Montana MD; Location : [facility] MAIN OR PARTIAL HYSTERECTOMY 1971 RECTOCELE REPAIR 1991 TAILBONE 1973 broken, partial removal TONSILLECTOMY 1938 TOTAL HIP ARTHROPLASTY Left 03/29/2019 Procedure: Posterior Total Hip Arthroplasty; Surgeon: Mark Montana MD; Location: [facility] MAIN OR Allergies Allergen Reactions [...] Code Follow up: Gus [facility]co [facility]C [facility] [address] In 2 weeks Discharge Medications Changed Medications [...] + + + +---------+ + + | Benoit-3 Fatty | Take 1 tablet by | [...] Horowitz RN - 03/29/2019 [facility]3 [facility] Viv Pop RN documented in [...] [place], | | | | | | [place] [address] | | | | | | [phone] | | | | | | | | +--------+---------+ + + + | 05/16/ | Office | Orthopedic Surgery | Mark Montana | | | 2018 | Visit | | MD [address]aina [address] | | | | | | [place] | | | | | | [place] [address] | | | | | | [phone] | | | | | | | | +--------+---------+ + + + | 06/30/ | Office | Cardiology | Smitha Griffin DO | | | 2019 | Visit | | [address] | | | | | | [place] | | | | | | [address] | | | | | | | [...] | LABORATORY | | | | [address];[place] | | | | | | [address] | | | | + + + + + + + + | Specimen | + + | | + + + + + + + | Performing | Address | City/State/Zipcode | Phone Number | | Organization | | | | + + + + + | [facility] | [address] | [place] [address] | [phone] | + + + + + POC [...] | LABORATORY | | | | [address];[place] | | | | | | [address] | | | | + + + + + + + + | Specimen | + + | | + + + + + + + | Performing | Address | City/State/Zipcode | Phone Number | | Organization | | | | + + + + + | [facility] | [address] | [place] [address] | [phone] | + + + + + POC Glucose (03/30/2019 20:57 PDT) + + + + + + | Component | Value | Ref Range | Performed | Pathologist | | | | | At | Signature | + + + + + + | Glucose, | 98Comment: Testing | 65 - 99 mg/dL | [facility] | | | POC | performed at [facility];[address] | | LABORATORY | | | | [address];[place], [place] | | | | | | [address] | | | | + + + + + + + + | Specimen | + + | | + + + + + + + | Performing | Address | City/State/Zipcode | Phone Number | | Organization | | | | + + + + + | [facility] | [address] | [place] [address] | [phone] | + + + + + Hemoglobin [...] | LABORATORY | | | | [address];[place], [place] | | | | | | [address] | | | | + + + + + + + + | Specimen | + + | Blood | + + + + + + + | Performing | Address | City/State/Zipcode | Phone Number | | Organization | | | | + + + + + | [facility] | [address] | [place] [address] | [phone] | + + + + + POC [...] | LABORATORY | | | | [address];[place], [place] | | | | | | [address] | | | | + + + + + + + + | Specimen | + + | | + + + + + + + | Performing | Address | City/State/Zipcode | Phone Number | | Organization | | | | + + + + + | [facility] | [address] [facility] | [place] [address] | [phone] | + + + + + POC Glucose (03/29/2019 20:59 PDT) + + + + + + | Component | Value | Ref Range | Performed | Pathologist | | | | | At | Signature | + + + + + + | Glucose, | 172 (H)Comment: Testing | 65 - 99 mg/dL | [facility] | | | POC | performed at [facility];[address] | | LABORATORY | | | | [address];[place] | | | | | | [address] | | | | + + + + + + + + | Specimen | + + | | + + + + + + + | Performing | Address | City/State/Zipcode | Phone Number | | Organization | | | | + + + + + | [facility] | [address] | [place] [address] | [phone] | + + + + + XR [...] Testing | 65 - 99 mg/dL | [facility] | | | POC | performed at [facility];[address] | | LABORATORY | | | | [address];[place] | | | | | | [address] | | | | + + + + + + + + | Specimen | + + | | + + + + + + + | Performing | Address | City/State/Zipcode | Phone Number | | Organization | | | | + + + + + | [facility] | [address] | [place] [address] | [phone] | + + + + + Type [...] + + + | BB BAND | [id number] | | [facility] | | | | | | LABORATORY | | + + + + + + | BB BAND | Testing performed at | | [facility] | | | | [facility];[address] | | LABORATORY | | | | [address];[place] [address] | | | | + + + + + + + + | Specimen | + + | Blood | + + + + + + + | Performing | Address | City/State/Zipcode | Phone Number | | Organization | | | | + + + + + | [facility] | [address] | [place] [address] | [phone] | + + + + + POC [...] | LABORATORY | | | | [address];[place], [place] | | | | | | [address] | | | | + + + + + + + + | Specimen | + + | | + + + + + + + | Performing | Address | City/State/Zipcode | Phone Number | | Organization | | | | + + + + + | [facility] | [address] | [place] [address] | [phone] | + + + + + documented [...]
--- OUTSIDE RECORDS SUMMARY | ~2019-04-06 | XMS | Clinical Summary ---
Demographics + + + | Address | [address] | | | [place] [address] | + + + | Home Phone [...] Author | [facility] | | | and Khurramana | + + + | Organization | [facility] | [...] Providers + +------+ + | Care Machine Welder Name | Role | Phone | [...] | | | | e | | ([facility]) | | | | | | | | MISC | | | | | | | + + + +---------+------+------+-------+ | Halls-3 Fatty | Take 1 tablet by | [...] automatically from request for surgery | | [id number] | + + + + + | [...] Appointment | | 2018 | | | [employer] | | +--------+ + + + + [...] | | | | | | [place] [address] | | | | | | [phone] | | | | | | | | +--------+---------+ + + + | 05/16/ | Office | Orthopedic Surgery | Mark Montana | | | 2018 | Visit | | MD [address]a [address] | | | | | | [address] | | | | | | [place] [address] | | | | | | [phone] | | | | | | | | +--------+---------+ + + + | 06/30/ | Office | Cardiology | Smitha Griffin DO | | | 2019 | Visit | | [address] | | | | | | [place] | | | | | | [address] | | | | | | | [...] MD | | | | | | /[address] | | | | | | | [...] MD | | | | | | /[address] | | | | | | | | 802 | + +--------+--------+ +--------+--------+--------+ | Stent Bili Advnx 10fr 5cm - | Stent | | [place] | | | 3432 / | | [id number]: Qty: 1 on | | | SCIENTIFIC [...] MD | | | | | | /[address] | | | | | | | | [address] | + +--------+--------+ +--------+--------+--------+ | Screw Hex Lp [id number] - | | Left: | RANDI | [...] Testing | 65 - 99 mg/dL | [facility] | | | POC | performed at [facility];[address] | | LABORATORY | | | | [address];[place] | | | | | | [address] | | | | + + + + + + + + | Specimen | + + | | + + + + + + + | Performing | Address | City/State/Zipcode | Phone Number | | Organization | | | | + + + + + | [facility] | [address] | [place] [address] | [phone] | + + + + + Hemoglobin [...] | | performed at [facility];[address] | | LABORATORY | | | | [address];[place], [place] | | | | | | [address] | | | | + + + + + + + + | Specimen | + + | Blood | + + + + + + + | Performing | Address | City/State/Zipcode | Phone Number | | Organization | | | | + + + + + | [facility] | [address] | [place] [address] | [phone] | + + + + + XR [...] + + + | BB BAND | [id number] | | [facility] | | | | | | LABORATORY | | + + + + + + | BB BAND | Testing performed at | | [facility] | | | | [facility];[address] | | LABORATORY | | | | Sam;[place] [address] | | | | + + + + + + + + | Specimen | + + | Blood | + + + + + + + | Performing | Address | City/State/Zipcode | Phone Number | | Organization | | | | + + + + + | [facility] | [address] | [place] [address] | [phone] | + + + + + Neuraxial [...] | | performed at [facility];[address] | | LABORATORY | | | | [address];[place], [place] | | | | | | [address] | | | | + + + + + + + + | Specimen | + + | Tissue | + + + + + + + | Performing | Address | City/State/Zipcode | Phone Number | | Organization | | | | + + + + + | [facility] | [address] | [place] [address] | [phone] | + + + + + CBC [...] | | performed at [facility] | | | | | | [address];[place], [place] | | | | | | [address] | | | | + + + + + + + + | Specimen | + + | Blood | + + + + + + + | Performing | Address | City/State/Zipcode | Phone Number | | Organization | | | | + + + + + | [facility] | [address] | [place] [address] | [phone] | + + + + + Hemoglobin A1C (03/21/2019 15:33 PDT) + + + + + + | Component | Value | Ref Range | Performed | Pathologist | | | | | At | Signature | + + + + + + | Hemoglobin | 5.8Comment: HbA1c method | 4.0 - 6.0 % | [facility] | | | A1c | is [...] | 120Comment: Estimated | <154 mg/dL | [facility] | | | Average | Average Glucose | | LABORATORY | | | Glucose | calculated from | | | | | | hemoglobin A1c by use of | | | | | | the ADArecommended | | | | | | formula.Testing | | | | | | performed at [facility], [address] | | | | | | [facility], | | | | | | [place] [address] | | | | + + + + + + + + | Specimen | + + | Blood | + + + + + + + | Performing | Address | City/State/Zipcode | Phone Number | | Organization | | | | + + + + + | [facility] | [address] | [place] [address] | [phone] | + + + + + Basic [...] | | performed at [facility];[address] | | | | | | [address];[place], [place] | | | | | | [address] | | | | + + + + + + + + | Specimen | + + | Blood | + + + + + + + | Performing | Address | City/State/Zipcode | Phone Number | | Organization | | | | + + + + + | [facility] | [address] | [place] [address] | [phone] | + + + + + ECG [...] | [employer] [facility] | [facility] | [id number] | 06/15/19 | | | Medica | | | HEALTH | | 17-Pre | | | re | | | MDCR | | sent | | | | + +--------+ +--------+-------+---------+--------+ | [employer] | [facility] | [id number] | | | | Medica | | [...] | 1936 | [phone] | [place] [address] | | | aissatou | | | 3 (Home) | | + +--------+ +--------+ + + | BladeScarlet Jessa | Person | Self | [birth year] | [address] | | | al/Fam | | 1936 | [phone] | [place] [address] | | | aissatou | | | 3 (Home) | | + +--------+ +--------+ + + Advance Directives Patient has advance care planning documents, and code status on file. For more information, please contact:[facility] and [place] [address] + + + + + | Code Status | Date | Date | Comments | | | Activated | Inactivated | | + + + + + | Full Code | 03/29/2019 | 03/31/2019 | | | | 14:18 | 16:40 | | + + + + +
--- OUTSIDE RECORDS SUMMARY | ~2019-04-06 | XMS | Encounter Summary ---
Demographics + + + | Address | [address] | | | [place] [address] | + + + | Home Phone [...] | [facility] | | | and Khurramana | + + + | Organization | [facility] | | [...] + +------+ + | Care Director Of Institutional Research Name | Role | Phone | [...] Services | Therapy | | Gus | [facility] | | | Required | | Post-traumat | PA-C [address] | PHYSICAL | | | | | ic | [address] | THERAPY [address] | | | | | osteoarthrit | [place] | [place] | | | | | is of left | [place] | [place] | | | | | hip | [address] | [address] | | | | | | Phone: | Phone: | | | | | | [phone] | [phone] | | | | | | Fax: | Fax: | | | | | | [phone] | [phone] | + + + + + + [...] | | | | | from | [address] | [address] | | | | | [place]te[place] at | [address] | [address] [place] | | | | | [facility] | [place], | [place], [place] | | | | | Procedures | [place] | [address] Phone: | | | | | NEW PATIENT | [address] | [phone] | | | | | | Phone: | Fax: | | | | | | [phone] | [phone] | | | | | | Fax: | | | | | | | [phone] | | + +--------+ + + + + Encounter Details +--------+---------+ + + + | Date | Type | Department | Care Team | Description | +--------+---------+ + + + | 03/21/ | Office | [facility] | Gus Orozco, | 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 MEDICAL PROCEDURE UNIT ERCP N/A 10/14/2016 Procedure: ERCP w/ stent pull; Surgeon: Gregor Mccord MD; Location: 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 Tobacco Use Smoking status: Never [...] MISC, Take by mouth., Disp: , Rfl: [place]-3 Fatty Acids (PRO NUTRIENTS OMEGA 3 PO), [...] 12 months?:yes Under the care of a armature balancer?: no Diabetes Optimization?:well controlled diet No results found for: LABGLYC History of MRSA/MSSA infection?:no Metal sensitivity or allergy?:no Intolerance to certain specific opiate?:no DVT/PE Risk Stratification Personal history of DVT/PE?:no Cancer treatment in the last 5 years?:no Hormone replacement therapy?:no Tolerate aspirin?:asa Current Anticoagulation?:asa Chemical prophylaxis plan:asa Anticipated Discharge Plan Discharge home to care of daughter (princess), [place] [facility]) Return for 2 and 6 weeks [...] [place] | | | | | | [place] [address] | | | | | | [phone] | | | | | | | | +--------+---------+ + + + | 05/16/ | Office | Orthopedic Surgery | Mark Montana | | | 2018 | Visit | | MD Paul Foley | | | | | | [address] | | | | | | [place] [address] | | | | | | [phone] | | | | | | | | +--------+---------+ + + + | 06/30/ | Office | Cardiology | Smitha Griffin DO | | | 2019 | Visit | | [address] | | | | | | [place] | | | | | | [address] | | | | | | | [...]
--- OUTSIDE RECORDS SUMMARY | ~2019-04-06 | XMS | Encounter Summary ---
Demographics + + + | Address | [address] | | | [place] [address] | + + + | Home Phone [...] + + + | Author | [facility] | + + + | Organization | [facility] | + + + | Address | Unknown | + + + | Phone | Unavailable | + + + Support + + + + + | Name | Relationship | Address | Phone | + + + + + | Chrissie Leos | DIRK | [place] | | + + + + + Care Team Providers + +------+ + | Care Waitstaff Name | Role | Phone | + [...] Clinic Dermatology | | | | | [facility] | [address] [facility] | | | | | and Healing, | [place] | | | | | [facility] | [address] | | | | | Floor [place], [place] | | | | | | [address] | | | | | | [phone] | | | +--------+ + + + [...] | OLOGY | | | | Case: [id number] | | | | | | | [...] | [facility] | [address] | [place] [address] | | | DERMATOPATHOLOGY | [address] | | | + + + + + documented in this encounter Visit Diagnoses + + | Diagnosis | + + | Neoplasm of uncertain behavior of skin | + + documented in this encounter
--- OUTSIDE RECORDS SUMMARY | ~2019-04-06 | XMS | Encounter Summary ---
Demographics + + + | Address | [address] | | | [place] [address] | + + + | Home Phone [...] | Author | [facility] | | | and Khurramana | + + + | Organization | [facility] | | [...] Team Providers + +------+ + | Care Cardboard Inserter Name | Role | Phone | + [...] + + | 03/29/ | Anesthesia | [facility] | Michela Eli | | | 2019 | Event | [facility] | MD Jena [address] | | | | | OPERATING RO[address] | [place], [place] | | | | | [facility] | [address] | | | | | [place], [place] | | | | | | [address] | | | | | | [phone] | | | +--------+ + + + [...] +----+---+ + + | | 0 | [place] | | | | 8 | 43-degrees [...] 03/30/19 0431 by | | eral | qett-wep-femtms catheter system; | Paula Young RN | [...] | | | | | | [place] [address] | | | | | | [phone] | | | | | | | | +--------+---------+ + + + | 05/16/ | Office | Orthopedic Surgery | Mark Montana | | | 2018 | Visit | | MD Paul Foley | | | | | | [address] | | | | | | [place] [address] | | | | | | [phone] | | | | | | | | +--------+---------+ + + + | 06/30/ | Office | Cardiology | Smitha Griffin DO | | | 2019 | Visit | | [address] | | | | | | [place], [place] | | | | | | [address] | | | | | | | [...]
--- OUTSIDE RECORDS SUMMARY | ~2019-04-06 | XMS | Encounter Summary ---
Demographics + + + | Address | [address] | | | [place] [address] | + + + | Home Phone | | + + + | Preferred Language | Unknown | + + + | Marital Status | | + + + | Orthodox Affiliation | Unknown | + + + | Race | White | + + + | Ethnic Group | Not or | + + + Author + + + | Author | [facility] | + + + | Organization | [facility] | + + + | [...] Providers + +------+ + | Care Financial Reserve Clerk Name | Role | Phone | [...] [address] | | | | | | [facility] | | | | | | and Healing, | | | | | | Building [address], [address]th | | | | | | Floor [place], [place] | | | | | | [address] | | | | | | [phone] | | | +--------+ + + + [...] | | | | | | skin, [id number]. The | | | | | | [...] [facility] | [address] | [place] [address] | | | DERMATOPATHOLOGY | [address] | | | + + + + + documented in this encounter Visit Diagnoses + + | Diagnosis | + + | Other melanin hyperpigmentation | + + documented in this encounter
--- OUTSIDE RECORDS SUMMARY | ~2019-04-06 | XMS | Encounter Summary ---
Demographics + + + | Address | [address] | | | [place] [address] | + + + | Home Phone [...] [facility] | | | and Khurramana | + + + | Organization | [facility] [...] Team Providers + +------+ + | Care Email Marketer Name | Role | Phone | + [...] Surgery Appointment | | 2018 | | [place] [address] | Draw Off Worker | | | | | [place] | | | | | | [address] | | | | | | [phone] | | | +--------+ + + + [...] | | | | | | [place] [address] | | | | | | [phone] | | | | | | | | +--------+---------+ + + + | 05/16/ | Office | Orthopedic Surgery | Mark Montana | | | 2018 | Visit | | MD [address] | | | | | | [place] | | | | | | [place] [address] | | | | | | [phone] | | | | | | | [...]
--- OUTSIDE RECORDS SUMMARY | ~2019-04-06 | XMS | Encounter Summary ---
Demographics + + + | Address | [address] | | | [place] [address] | + + + | Home Phone [...] | Author | [facility] | | | and Khurramana | + + + | Organization | [facility] [...] Team Providers + +------+ + | Care Heater Engineer Helper Name | Role | Phone | + +------+ + | Susan Leos | PCP | | | PA-C | | | + +------+ + Encounter Details +--------+ + + + + | Date | Type | Department | Care Team | Description | +--------+ + + + + | 03/14/ | [facility] | [facility] | Mark [place] | Left hip pain | | 2018 | Encounter | [place] [address] | MD [address] | | | | | [address] | [place] | | | | | [place], [place] | [place] [address] | | | | | [address] | [phone] | | | | | [phone] | | | +--------+ + + + [...] | | | | | | ([facility]) | | | | | | | MISC | | | | | | + + + +---------+ + + | [place]-3 Fatty | Take 1 tablet by | [...] | | | | | | [place] [address] | | | | | | [phone] | | | | | | | | +--------+---------+ + + + | 05/16/ | Office | Orthopedic Surgery | Mark [place] | | | 2018 | Visit | | MD Paul Foley | | | | | | [address] | | | | | | [place] [address] | | | | | | [phone] | | | | | | | | +--------+---------+ + + + | 06/30/ | Office | Cardiology | Smitha Griffin DO | | | 2019 | Visit | | [address] | | | | | | [place] | | | | | | [address] | | | | | | | [...]
--- OUTSIDE RECORDS SUMMARY | ~2019-04-06 | XMS | Encounter Summary ---
Demographics + + + | Address | [address] | | | [place] [address] | + + + | Home Phone [...] + + | Author | [facility] (Historical as of | | | 01-29-19) | + + + | Organization | [facility] (Historical as of | | | 01-29-19) | + + + | Address | Unknown | + + + | Phone | Unavailable | + + + Support + + + + + | Name | Relationship | Address | Phone | + + + + + | Alejo Murguia | DIRK | [address] | | | | | [place] [address] | | + + + + + Care Team Providers + +------+ + | Care Degreasing Wheel Operator Name | Role | Phone | [...] | 2019 | on Only | Cardiology [place] | [address] | | | | | [address] | [place], [place] | | | | | [place], [place] | [address] | | | | | [address] | | | | | | [phone] | | | +--------+ + + + [...]
--- OUTSIDE RECORDS SUMMARY | ~2019-04-06 | XMS | Encounter Summary ---
Demographics + + + | Address | [address] | | | [place] [address] | + + + | Home Phone [...] Author | [facility] | | | and Khurramana | + + + | Organization | [facility] | | | [...] Team Providers + +------+ + | Care Freight Shipping Agent Name | Role | Phone | [...] + + | 03/29/ | Surgery | [facility] | Mark Montana | Posterior Total Hip | | 2019 | | [facility] | MD Alaina [address] | Arthroplasty | | | | OPER[address] RO[address] | [address] | | | | | [address] | [place] [address] | | | | | [place], [place] | [phone] | | | | | [address] | | | | | | [phone] | | | +--------+---------+ + + + [...] 02/04/2016 Diabetes type 2, controlled ([facility]) Full dentures upper & lower [...] EXTREMITY-HIP; Surgeon: Mark Montana MD; Location : [facility] MAIN OR PARTIAL HYSTERECTOMY 1971 RECTOCELE REPAIR 1991 TAILBONE 1972 broken, partial removal TONSILLECTOMY 1938 TOTAL HIP ARTHROPLASTY Left 03/29/2019 Procedure: Posterior Total Hip Arthroplasty; Surgeon: Mark Montana MD; Location: [facility] MAIN OR Allergies Allergen Reactions [...] up: Gus Orozco PA-C [address] [facility] [address] In 2 weeks Discharge Medications Changed Medications [...] + + + +---------+ + + | Inverness-3 Fatty | Take 1 tablet by | [...] might be different from t he original. [facility] Progress Note [...] Brock RN - [facility]29/[facility] Viv Pop RN documented in this encoun ter Plan of Treatment +--------+---------+ + + + | Date | Type | Specialty | Care Team | Description | +--------+---------+ + + + | 04/11/ | Office | Orthopedic Surgery | Gus Orozco, | | | 2018 | Visit | | [address] | | | | | | [facility], | | | | | | [place] [address] | | | | | | [phone] | | | | | | | | +--------+---------+ + + + | 05/16/ | Office | Orthopedic Surgery | Mark Montana | | | 2018 | Visit | | MD Alaina [address] | | | | | | [address] | | | | | | [place] [address] | | | | | | [phone] | | | | | | | | +--------+---------+ + + + | 06/30/ | Office | Cardiology | Smitha Griffin DO | | | 2019 | Visit | | [address] | | | | | | [place] | | | | | | [address] | | | | | | | [...] | | | POC | performed at [facility];[address] | | LABORATORY | | | | [address];[place], [place] | | | | | | [address] | | | | + + + + + + + + | Specimen | + + | | + + + + + + + | Performing | Address | City/State/Zipcode | Phone Number | | Organization | | | | + + + + + | [facility] | [address] | [place] [address] | [phone] | + + + + + POC Glucose (03/31/2019 7:23 PDT) + + + + + + | Component | Value | Ref Range | Performed | Pathologist | | | | | At | Signature | + + + + + + | Glucose, | 122 (H)Comment: Testing | 65 - 99 mg/dL | KR | | | POC | performed at [facility];[address] | | LABORATORY | | | | [address];[place] | | | | | | [address] | | | | + + + + + + + + | Specimen | + + | | + + + + + + + | Performing | Address | City/State/Zipcode | Phone Number | | Organization | | | | + + + + + | [facility] | [address] | [place] [address] | [phone] | + + + + + POC Glucose (03/30/2019 20:57 PDT) + + + + + + | Component | Value | Ref Range | Performed | Pathologist | | | | | At | Signature | + + + + + + | Glucose, | 98Comment: Testing | 65 - 99 mg/dL | KR | | | POC | performed at [facility];[address] | | LABORATORY | | | | [address];[place], [place] | | | | | | [address] | | | | + + + + + + + + | Specimen | + + | | + + + + + + + | Performing | Address | City/State/Zipcode | Phone Number | | Organization | | | | + + + + + | [facility] | [address] | [place] [address] | [phone] | + + + + + Hemoglobin [...] [facility] | | | | performed at [facility];[address] | | LABORATORY | | | | [facility];[place], [place] | | | | | | [address] | | | | + + + + + + + + | Specimen | + + | Blood | + + + + + + + | Performing | Address | City/State/Zipcode | Phone Number | | Organization | | | | + + + + + | [facility] | [address] | [place] [address] | [phone] | + + + + + POC Glucose (03/30/2019 3:23 PDT) + + + + + + | Component | Value | Ref Range | Performed | Pathologist | | | | | At | Signature | + + + + + + | Glucose, | 147 (H)Comment: Testing | 65 - 99 mg/dL | [facility] | | | POC | performed at [facility];[address] | | LABORATORY | | | | [address];[place] | | | | | | [address] | | | | + + + + + + + + | Specimen | + + | | + + + + + + + | Performing | Address | City/State/Zipcode | Phone Number | | Organization | | | | + + + + + | [facility] | [address] | [place] [address] | [phone] | + + + + + POC Glucose (03/29/2019 20:59 PDT) + + + + + + | Component | Value | Ref Range | Performed | Pathologist | | | | | At | Signature | + + + + + + | Glucose, | 172 (H)Comment: Testing | 65 - 99 mg/dL | [facility] | | | POC | performed at [facility];[address] | | LABORATORY | | | | [address];[place] | | | | | | [address] | | | | + + + + + + + + | Specimen | + + | | + + + + + + + | Performing | Address | City/State/Zipcode | Phone Number | | Organization | | | | + + + + + | [facility] | [address] | [place] [address] | [phone] | + + + + + XR [...] + + | Performing | Address | City/State/[facility] | Phone Number | | Organization [...] Testing | 65 - 99 mg/dL | [facility] | | | POC | performed at [facility];[address] | | LABORATORY | | | | [address];[place] | | | | | | [address] | | | | + + + + + + + + | Specimen | + + | | + + + + + + + | Performing | Address | City/State/Zipcode | Phone Number | | Organization | | | | + + + + + | [facility] | [address] | [place] [address] | [phone] | + + + + + Type [...] + + + | BB BAND | [id number] | | [facility] | | | | | | LABORATORY | | + + + + + + | BB BAND | Testing performed at | | [facility] | | | | [facility];[address] | | LABORATORY | | | | [address];[place] [address] | | | | + + + + + + + + | Specimen | + + | Blood | + + + + + + + | Performing | Address | City/State/Zipcode | Phone Number | | Organization | | | | + + + + + | [facility] | [address] | [place] [address] | [phone] | + + + + + POC Glucose (03/29/2019 6:42 PDT) + + + + + + | Component | Value | Ref Range | Performed | Pathologist | | | | | At | Signature | + + + + + + | Glucose, | 96Comment: Testing | 65 - 99 mg/dL | KR | | | POC | performed at [facility];[address] | | LABORATORY | | | | [address];[place], [place] | | | | | | [address] | | | | + + + + + + + + | Specimen | + + | | + + + + + + + | Performing | Address | City/State/Zipcode | Phone Number | | Organization | | | | + + + + + | [facility] | [address] | [place] [address] | [phone] | + + + + + documented [...]
--- OUTSIDE RECORDS SUMMARY | ~2019-04-06 | XMS | Encounter Summary ---
Demographics + + + | Address | [address] | | | [place] [address] | + + + | Home Phone [...] | Author | [facility] | | | and Khurramana | + + + | Organization | [facility] | | [...] Team Providers + +------+ + | Care Hr Shared Services Consultant Name | Role | Phone | [...] [address] | | | | | [address] | [place] [address] | | | | | [phone] | [phone] | | | | | | | [...] [place], | | | | | | [place] [address] | | | | | | [phone] | | | | | | | | +--------+---------+ + + + | 05/16/ | Office | Orthopedic Surgery | Mark Montana | | | 2018 | Visit | | MD Paul Foley | | | | | | [address] | | | | | | [place] [address] | | | | | | [phone] | | | | | | | | +--------+---------+ + + + | 06/30/ | Office | Cardiology | Smitha Griffin DO | | | 2020 | Visit | | [address] | | | | | | [place] | | | | | | [id number] | | | | | | | | +--------+---------+ + + + documented as of this encounter Visit Diagnoses Not on filedocumented in this encounter"
--- OUTSIDE RECORDS SUMMARY | ~2019-04-06 | XMS | Encounter Summary ---
Demographics + + + | Address | [address] | | | [place] [address] | + + + | Home Phone [...] Author | [facility] | | | and Khurramana | + + + | Organization | [facility] | | | and [...] Team Providers + +------+ + | Care Custom Grinder Name | Role | Phone | [...] + + | 03/29/ | Surgery | [facility] | Mark Montana | Posterior Total Hip | | 2019 | | [facility] | MD [address]a [address] | Arthroplasty | | | | [address] | [address] | | | | | [address] | [place] [address] | | | | | [place], [place] | [phone] | | | | | [address] | | | | | | [phone] | | | +--------+---------+ + + + [...] disease), lumbar 02/04/2016 Diabetes type 2, controlled ([facility]) Full dentures upper & lower GERD [...] EXTREMITY-HIP; Surgeon: Mark Montana MD; Location : [facility] MAIN OR PARTIAL HYSTERECTOMY 1971 RECTOCELE REPAIR 1991 TAILBONE 1972 broken, partial removal TONSILLECTOMY 1938 TOTAL HIP ARTHROPLASTY Left 03/29/2019 Procedure: Posterior Total Hip Arthroplasty; Surgeon: Mark Montana MD; Location: [facility] MAIN OR Allergies Allergen Reactions [...] Code Follow up: Gus Orozco PA-C [address] [facility] [address] In 2 weeks Discharge Medications Changed Medications [...] + + + +---------+ + + | H[place]ia-3 Fatty | Take 1 tablet by | [...] might be different from t he original. [facility] Progress Note Primary [...] Brock RN - 03/29/2019 [facility] Viv Pop RN documented in this encoun ter Plan of Treatment +--------+---------+ + + + | Date | Type | Specialty | Care Team | Description | +--------+---------+ + + + | 04/11/ | Office | Orthopedic Surgery | Gus Orozco, | | | 2018 | Visit | | [address] | | | | | | [facility], | | | | | | [place] [address] | | | | | | [phone] | | | | | | | | +--------+---------+ + + + | 05/16/ | Office | Orthopedic Surgery | Mark Montana | | | 2018 | Visit | | MD [address]a [address] | | | | | | [address] | | | | | | [place] [address] | | | | | | [phone] | | | | | | | | +--------+---------+ + + + | 06/30/ | Office | Cardiology | Smitha Griffin DO | | | 2019 | Visit | | [address] | | | | | | [place] | | | | | | [address] | | | | | | | [...] | | POC | performed at [facility];[address] | | LABORATORY | | | | [address];[place], [place] | | | | | | [address] | | | | + + + + + + + + | Specimen | + + | | + + + + + + + | Performing | Address | City/State/Zipcode | Phone Number | | Organization | | | | + + + + + | [facility] | [address] | [place] [address] | [phone] | + + + + + POC [...] | | POC | performed at [facility];[address] | | LABORATORY | | | | [address];[place] | | | | | | [address] | | | | + + + + + + + + | Specimen | + + | | + + + + + + + | Performing | Address | City/State/Zipcode | Phone Number | | Organization | | | | + + + + + | [facility] | [address] | [place] [address] | [phone] | + + + + + POC Glucose (03/30/2019 20:57 PDT) + + + + + + | Component | Value | Ref Range | Performed | Pathologist | | | | | At | Signature | + + + + + + | Glucose, | 98Comment: Testing | 65 - 99 mg/dL | [facility] | | | POC | performed at [facility];[address] | | LABORATORY | | | | [address];[place], [place] | | | | | | [address] | | | | + + + + + + + + | Specimen | + + | | + + + + + + + | Performing | Address | City/State/Zipcode | Phone Number | | Organization | | | | + + + + + | [facility] | [address] | [place] [address] | [phone] | + + + + + Hemoglobin [...] | | | | performed at [facility];[address] | | LABORATORY | | | | [facility];[place], [place] | | | | | | [address] | | | | + + + + + + + + | Specimen | + + | Blood | + + + + + + + | Performing | Address | City/State/Zipcode | Phone Number | | Organization | | | | + + + + + | [facility] | [address] | [place] [address] | [phone] | + + + + + POC [...] | | POC | performed at [facility];[address] | | LABORATORY | | | | [address];[place] | | | | | | [address] | | | | + + + + + + + + | Specimen | + + | | + + + + + + + | Performing | Address | City/State/Zipcode | Phone Number | | Organization | | | | + + + + + | [facility] | [address] | [place] [address] | [phone] | + + + + + POC Glucose (03/29/2019 20:59 PDT) + + + + + + | Component | Value | Ref Range | Performed | Pathologist | | | | | At | Signature | + + + + + + | Glucose, | 172 (H)Comment: Testing | 65 - 99 mg/dL | [facility] | | | POC | performed at [facility];[address] | | LABORATORY | | | | [address];[place] | | | | | | [address] | | | | + + + + + + + + | Specimen | + + | | + + + + + + + | Performing | Address | City/State/Zipcode | Phone Number | | Organization | | | | + + + + + | [facility] | [address] | [place] [address] | [phone] | + + + + + XR [...] + + | Performing | Address | City/State/[facility] | Phone Number | | [...] Testing | 65 - 99 mg/dL | [facility] | | | POC | performed at [facility];[address] | | LABORATORY | | | | [address];[place] | | | | | | [address] | | | | + + + + + + + + | Specimen | + + | | + + + + + + + | Performing | Address | City/State/Zipcode | Phone Number | | Organization | | | | + + + + + | [facility] | [address] | [place] [address] | [phone] | + + + + + Type [...] + + + | BB BAND | [id number] | | [facility] | | | | | | LABORATORY | | + + + + + + | BB BAND | Testing performed at | | [facility] | | | | [facility];[address] | | LABORATORY | | | | [address];[place] [address] | | | | + + + + + + + + | Specimen | + + | Blood | + + + + + + + | Performing | Address | City/State/Zipcode | Phone Number | | Organization | | | | + + + + + | [facility] | [address] | [place] [address] | [phone] | + + + + + POC Glucose (03/29/2019 6:42 PDT) + + + + + + | Component | Value | Ref Range | Performed | Pathologist | | | | | At | Signature | + + + + + + | Glucose, | 96Comment: Testing | 65 - 99 mg/dL | [facility] | | | POC | performed at [facility];[address] | | LABORATORY | | | | [address];[place], [place] | | | | | | [address] | | | | + + + + + + + + | Specimen | + + | | + + + + + + + | Performing | Address | City/State/Zipcode | Phone Number | | Organization | | | | + + + + + | [facility] | [address] | [place] [address] | [phone] | + + + + + documented [...]
--- OUTSIDE RECORDS SUMMARY | ~2019-04-06 | XMS | Encounter Summary ---
Demographics + + + | Address | [address] | | | [place] [address] | + + + | Home Phone | | + + + | Preferred Language | Unknown | + + + | Marital Status | | + + + | Tenriism Affiliation | Unknown | + + + | Race | White | + + + | Ethnic Group | Not or | + + + Author + + + | Author | [facility] | + + + | Organization | [facility] | + + + | [...] Team Providers + +------+ + | Care Dice Manager Name | Role | Phone | [...] [address] | | | | | | [place], [place] | | | | | | [address] | | | +--------+ + + + [...]
--- OUTSIDE RECORDS SUMMARY | ~2019-04-06 | XMS | Encounter Summary ---
Demographics + + + | Address | [address] | | | [place] [address] | + + + | Home Phone [...] Author | [facility] | | | and Khurramana | + + + | Organization | [facility] Neal | | [...] Team Providers + +------+ + | Care Turbine Attendant Name | Role | Phone | [...] Post-op Question | | 2018 | | [address] | MD Alaina [address] | | | | | [address] [place], [place] | [address] | | | | | [address] | [place] [address] | | | | | [phone] | [phone] | | | | | | | [...] [address] | | | | | | [place], | | | | | | [place] [address] | | | | | | [phone] | | | | | | | | +--------+---------+ + + + | 05/16/ | Office | Orthopedic Surgery | Mark Montana | | | 2018 | Visit | | MD [address]ain[address] | | | | | | [place] | | | | | | [place] [address] | | | | | | [phone] | | | | | | | | +--------+---------+ + + + | 06/30/ | Office | Cardiology | Smitha Griffin DO | | | 2019 | Visit | | [address] | | | | | | [place] | | | | | | [address] | | | | | | | | +--------+---------+ + + + documented as of this encounter Visit Diagnoses Not on filedocumented in this encounter"
--- OUTSIDE RECORDS SUMMARY | ~2019-04-06 | XMS | Encounter Summary ---
Demographics + + + | Address | [address] | | | [place] [address] | + + + | Home Phone [...] + + + | Author | [facility] | + + + | Organization | [facility] | + + + | [...] Team Providers + +------+ + | Care Crushed Stone Grader Name | Role | Phone [...] | | | | | | [facility] | | | | | | and Healing, | | | | | | Building [address], [address]th | | | | | | Floor [place], [place] | | | | | | [address] | | | | | | [phone] | | | +--------+ + + + [...] | | | | | | skin, [id number]. The | | | | | | [...] [facility] | [address], [address] | [place] [address] | | | DERMATOPATHOLOGY | [address] | | | + + + + + documented in this encounter Visit Diagnoses + + | Diagnosis | + + | Other melanin hyperpigmentation | + + documented in this encounter
--- OUTSIDE RECORDS SUMMARY | ~2019-04-06 | XMS | Clinical Summary ---
Demographics + + + | Address | [address] | | | [place] [address] | + + + | Home Phone [...] Team Providers + +------+ + | Care Surveyor Chain Helper Name | Role | Phone | + +------+ + PCP | Unavailable | + +------+ + Source Comments FIORELLA is fully live on both [facility] and [facility] Allergies Not on File Medications Not [...] | OLOGY | | | | Case: [id number] | | | | | | | [...] [facility] | [address], [address] | [place] [address] | | | DERMATOPATHOLOGY | [address] [...] | MODA | xxxxxxxxx | Effect | [phone] | [address] | PPO | | | MEDICA | | nestor | 4 | [address] | | | | RE PPO | | for | | [place], | | | | | | all | | [place] [address] | | | | | | dates [...] | 1936 | [phone] | [place] [address] | | | aissatou | | | 3 (Home) | | + +--------+ +--------+ + +
--- OUTSIDE RECORDS SUMMARY | ~2019-04-06 | XMS | Clinical Summary ---
Demographics + + + | Address | [address] | | | [place] [address] | + + + | Home Phone [...] + + | Author | [facility] (Historical as of | | | 01-29-19) | + + + | Organization | [facility] (Historical as of | | | 01-29-19) | + + + | Address | Unknown | + + + | Phone | Unavailable | + + + Support + + + + + | Name | Relationship | Address | Phone | + + + + + | Alejo Murguia | DIRK | [address] | | | | | [place] [address] | | + + + + + Care Team Providers + +------+ + | Care Drilling Manager Name | Role | Phone | [...]
--- OUTSIDE RECORDS SUMMARY | 2019-04-06 12:00 | XMS ---
PreManage Notification: JUANITA Security Military Pay Technician Events No recent Security Events currently on file CRITERIA MET - - 2 Visits in 30 Days CARE PROVIDERS ASHLEIGH GIRALDO Physician Contact Lens Manufacturer 03/01/2018-Current PHONE: [phone] Ashleigh Zamora Primary Care Current PAC PHONE: Unknown NAHUM PIMENTEL Primary Care 01/13/2014-Current PHONE: Unknown Khoi has no Care Guidelines for this patient. [facility] VISIT COUNT (12 MO.) 3 [facility] TOTAL 3 NOTE: Visits indicate total known visits. ED/UCC VISIT TRACKING (12 MO.) 04/06/2019 11:57 [facility] [place] TYPE: Emergency COMPLAINT: - LEFT KNEE PAIN 04/01/2019 23:24 [facility] [place] TYPE: Emergency COMPLAINT: - ALTERED MENTAL STATUS DIAGNOSES: - 1 Type 2 diabetes mellitus with diabetic neuropathy, unsp - Allergy status to penicillin - Allergy status to sulfonamides status - Hypothyroidism, unspecified - Allergy status to oth drug/meds/biol subst status - Other joint terminal attack controller (current) drug therapy - Personal history of other malignant neoplasm of skin - Altered mental status, unspecified - Allergy status to other antibiotic agents status 03/23/2019 20:[address] [facility] [place] TYPE: Emergency COMPLAINT: - HIGH BLOOD PRESSURE DIAGNOSES: - Allergy status to penicillin - Allergy status to sulfonamides status - Other joint terminal attack controller (current) drug therapy - Hypothyroidism, unspecified - Allergy status to other antibiotic agents status - Essential (primary) hypertension - [facility] (current) use of aspirin - Personal history of malignant melanoma of skin - Elevated blood-pressure reading, w/o diagnosis of htn - 1 Type 2 diabetes mellitus with diabetic neuropathy, unsp INPATIENT VISIT TRACKING (12 MO.) No inpatient visits to display in this time frame [email or web address]
[2019-04-07] MEDS ORDERED: OXYCODONE HCL5 MG PO (12:07)
[2019-04-07] MEDS ORDERED: GABAPENTIN300 MG PO (12:09)
[2019-04-07] MEDS ORDERED: LOSARTAN POTASS50 MG PO (12:11)
[2019-04-07] MEDS ORDERED: VENLAFAXINE HCL75 M1 PO (12:11)
[2019-04-07] MEDS ORDERED: ATENOLOL50 MG PO (12:55)
[2019-04-07] MEDS ORDERED: ASPIRIN325 MG PO (12:56)
[2019-04-11] MEDS ORDERED: XARELTO10 MG PO (09:12)
== END 2019-04-11 09:39 | disposition swing bed (61) | DRG 176 ==
LOC: ED 11:56 → CCU 17:03 → MS 04-08 09:50
PROVIDERS: ADMIT Internal Medicine
DX: I26.99 Other pulmonary embolism without acute cor pulmonale (principal); E87.1 Hypo-osmolality and hyponatremia; D64.9 Anemia, unspecified; I35.0 Nonrheumatic aortic (valve) stenosis; M51.36 Other intervertebral disc degeneration, lumbar region; K21.9 Gastro-esophageal reflux disease without esophagitis; I10 Essential (primary) hypertension; E78.5 Hyperlipidemia, unspecified; E03.9 Hypothyroidism, unspecified; N39.3 Stress incontinence (female) (male); E11.42 Type 2 diabetes mellitus with diabetic polyneuropathy; M43.16 Spondylolisthesis, lumbar region; Z96.642 Presence of left artificial hip joint; Z79.899 Other long term (current) drug therapy; Z79.891 Long term (current) use of opiate analgesic; Z88.0 Allergy status to penicillin; Z88.2 Allergy status to sulfonamides; Z88.8 Allergy status to other drugs, medicaments and biological substances; Z88.1 Allergy status to other antibiotic agents
CPT/HCPCS: 36415; 71260; 80048; 80053; 83735; 85025; 85610; 85730; 93971; 97110; 97116; 97162; 97166; 97535; 99285-25; J1644; J7030; Q9967

== ENCOUNTER 2019-04-11 09:40 | Inpatient (IN) | payer MEDICARE, MEDICAID ==
[~2019-04-11] VITALS: Ht 167.6 cm; Wt 76.6 kg
--- OUTSIDE RECORDS SUMMARY | ~2019-04-11 | XMS | Encounter Summary ---
Demographics + + + | Address | [address] | | | [place] [address] | + + + | Home Phone | | + + + | Preferred Language | Unknown | + + + | Marital Status | | + + + | Uatsdin Affiliation | Unknown | + + + | Race | White | + + + | Ethnic Group | Not or | + + + Author + + + | Author | [facility] | + + + | Organization | [facility] | + + + | [...] Team Providers + +------+ + | Care Paving Contractor Name | Role | Phone | + [...] [address] | | | | | | [place], [place] | | | | | | [address] | | | +--------+ + + + [...]
--- OUTSIDE RECORDS SUMMARY | ~2019-04-11 | XMS | Encounter Summary ---
Demographics + + + | Address | [address] | | | [place] [address] | + + + | Home Phone | | + + + | Preferred Language | Unknown | + + + | Marital Status | | + + + | Lutheran Affiliation | Unknown | + + + | Race | Unknown | + + + | Ethnic Group | Unknown | + + + Author + + + | Author | [facility] (Historical as of | | | 01-29-19) | + + + | Organization | [facility] (Historical as of | | | 01-29-19) | + + + | Address | Unknown | + + + | Phone | Unavailable | + + + Support + + + + + | Name | Relationship | Address | Phone | + + + + + | Alejo Murguia | DIRK | [address] | | | | | [place] [address] | | + + + + + Care Team Providers + +------+ + | Care Railroad Passenger Agent Name | Role | Phone | + +------+ + | Lissette Dixon | PCP | | | MD | | | + +------+ + Encounter Details +--------+ + + + + | Date | Type | Department | Care Team | Description | +--------+ + + + + | 01/20/ | Documentati | [facility] | Smitha Griffin DO | | | 2019 | on Only | [facility] | [address] | | | | | [address] | [place], [place] | | | | | [place], [place] | [address] | | | | | [address] | | | | | | [phone] | | | +--------+ + + + [...] on file | | + + + as of this encounter Plan of Treatment Not on fileas of this encounter Visit Diagnoses Not on filein this encounter"
--- OUTSIDE RECORDS SUMMARY | ~2019-04-11 | XMS | Clinical Summary ---
Demographics + + + | Address | [address] | | | [place] [address] | + + + | Home Phone | | + + + | Preferred Language | Unknown | + + + | Marital Status | | + + + | Methodist Affiliation | 1077 | + + + | Race | Unknown | + + + | Ethnic Group | Unknown | + + + Author + + + | Author | [facility] | | | and Khurramana | + + + | Organization | [facility] | | | and [place] | [...] Team Providers + +------+ + | Care Brushing Machine Operator Name | Role | Phone [...] | | | e | | ([facility]) | | | | | | | | MISC | | | | | | | + + + +---------+------+------+-------+ | Belspring-3 Fatty | Take 1 tablet by | [...] by mouth | | 0 | | 10/1 | Disco | | tablet | Daily. | | | | 7/20 | ntinu | | | | | | | 19 | ed | + + + +---------+------+------+-------+ | polyethylene | Take 1 diluted | 7 | 0 | 10/ | 10/2 | Expir | | glycol (MIRALAX) | packet by mouth | packet | | / | 10/02 | ed | | packet | Daily as needed [...] automatically from request for surgery | | [id number] | + + + + + | [...] | | Michela Eli | | | 2018 | Event | | MD Jena | [...] Appointment | | 2018 | | | Public Service Representative | | +--------+ + + + + [...] | Body Mass Index | 25.72 | 03/29/201932 PDT | + + + + Plan [...] [address] | | | | | | [place] [address] | | | | | | [phone] | | | | | | | | +--------+---------+ + + + | 06/30/ | Office | Cardiology | Smitha Griffin DO | | | 2020 | Visit | | [address] | | | | | | [place] | | | | | | [address] | | | | | | | [...] MD | | | | | | /[id number] | | | | | | | | [address] | + +--------+--------+ +--------+--------+--------+ | Imp Hip Fem Hd Bolx 36mm - | Generi | Left: | RANDI | | 02/02/ | 6570-0 | | SnaImplanted: Qty: 1 on | c | Hip | MEDICAL - | | 2023 | -436 | | 03/29/2019 by Nna, | | | STRY | | | /NA | | Mark Foley MD | | | | | | /[id number] | | | | | | | | 802 | + +--------+--------+ +--------+--------+--------+ | Stent Bili Advnx 10fr 5cm - | Stent | | [place] | | | 3432 / | | [id number]: Qty: 1 on | | | SCIENTIFIC | | | / | | 09/26/2016 by Gregor Mccord | | | BIGG - BSCI | | | | | MD Delmy | | | | | | | + +--------+--------+ +--------+--------+--------+ | Imp Hip Counts Include [facility] Trig[facility]et Ii | | Left: | RANDI | | 12/11/ | 702-04 | | 54e - SnaImplanted: Qty: 1 on | | Hip | MEDICAL - | | 2023 | -54E | | 03/29/2019 by Nan, | | | ALLEN | | | /NA | | Mark Foley MD | | | | | | /[address] | | | | | | | | 901A | + +--------+--------+ +--------+--------+--------+ | Screw Hex Lp [id number] - | | Left: | RANDI | [...] | | | POC | performed at [facility];8 | | LABORATORY | | | | [address];[place], [place] | | | | | | [address] | | | | + + + + + + + + | Specimen | + + | | + + + + + + + | Performing | Address | City/State/Zipcode | Phone Number | | Organization | | | | + + + + + | [facility] | [address] | [place] [address] | [phone] | + + + + + Hemoglobin [...] [facility] | | | | performed at [facility];888 | | LABORATORY | | | | [address];[place], [place] | | | | | | [address] | | | | + + + + + + + + | Specimen | + + | Blood | + + + + + + + | Performing | Address | City/State/Zipcode | Phone Number | | Organization | | | | + + + + + | [facility] | [address] | [place] [address] | [phone] | + + + + + XR Pelvis 1 or 2 Vw (03/29/2019 10:15 PDT) + + | Specimen | + + | | + + + + + | Impressions | Performed At | + + + | Post arthroplasty. Signed by: Yrn Johnson, Raimundo Akbar | [facility] | | Date/Time: 03/29/2019 [...] + + + | BB BAND | [id number] | | [facility] | | | | | | LABORATORY | | + + + + + + | BB BAND | Testing performed at | | [facility] | | | | [facility];[address] | | LABORATORY | | | | [address];[place] [address] | | | | + + + + + + + + | Specimen | + + | Blood | + + + + + + + | Performing | Address | City/State/Zipcode | Phone Number | | Organization | | | | + + + + + | [facility] | [address] | [place] [address] | [phone] | + + + + + Neuraxial [...] + | SOURCE: | NARES(NOSE) | | [facility] | | | | | | LABORATORY | | + + + + + + | Result | NEGATIVEComment: Testing | MRSNEG | JETHRO | | | | performed at [facility];[address] | | LABORATORY | | | | [address];[place] | | | | | | [address] | | | | + + + + + + + + | Specimen | + + | Tissue | + + + + + + + | Performing | Address | City/State/Zipcode | Phone Number | | Organization | | | | + + + + + | [facility] | [address] | [place] [address] | [phone] | + + + + + CBC [...] | | | | | performed at [facility];888 | | | | | | [address];[place] | | | | | | [address] | | | | + + + + + + + + | Specimen | + + | Blood | + + + + + + + | Performing | Address | City/State/Zipcode | Phone Number | | Organization | | | | + + + + + | [facility] | [address] | [place] [address] | [phone] | + + + + + Hemoglobin A1C (03/21/2019 15:33 PDT) + + + + + + | Component | Value | Ref Range | Performed | Pathologist | | | | | At | Signature | + + + + + + | Hemoglobin | 5.8Comment: HbA1c method | 4.0 - 6.0 % | [facility] | | | A1c | is certified by [facility] | | LABORATORY | | | [...] | 120Comment: Estimated | <154 mg/dL | [facility] | | | Average | Average Glucose | | LABORATORY | | | Glucose | calculated from | | | | | | hemoglobin A1c by use of | | | | | | the ADArecommended | | | | | | formula.Testing | | | | | | performed at [facility], [address] | | | | | | [facility], | | | | | | [place] [address] | | | | + + + + + + + + | Specimen | + + | Blood | + + + + + + + | Performing | Address | City/State/Zipcode | Phone Number | | Organization | | | | + + + + + | [facility] | [address] | [place] [address] | [phone] | + + + + + Basic [...] | | | | | performed at [facility];[address] | | | | | | [address];[place], [place] | | | | | | [address] | | | | + + + + + + + + | Specimen | + + | Blood | + + + + + + + | Performing | Address | City/State/Zipcode | Phone Number | | Organization | | | | + + + + + | [facility] | [address] | [place] [address] | [phone] | + + + + + ECG [...] | | | | | | KEITH LADNERS (209) on | | | | | [...] | [employer] | MOD[facility] | [id number] | 06/15/19 | | | Medica | | | HEALTH | | 17-Pre | | | re | | | MDCR | | sent | | | | + +--------+ +--------+-------+---------+--------+ | [employer] | [employer] | [id number] | | | | Medica | | [...] | Self | [birth year] | | [address] | | | al/Fam | | 1936 | [phone] | [place] [address] | | | a[place]ou | | | 3 (Home) | | + +--------+ +--------+ + + | Scarlet Murguia | Person | Self | [birth year] | [address] | | | al/Fam | | 1936 | [phone] | [place] [address] | | | [place]ou | | | 3 (Home) | | + +--------+ +--------+ + + Advance Directives Patient has advance care planning documents, and code status on file. For more information, please contact:[facility] [place] [address] + + + + + | Code Status | Date | Date | Comments | | | Activated | Inactivated | | + + + + + | Full Code | 03/29/2019 | 03/31/2019 | | | | 14:18 | 16:40 | | + + + + +
--- OUTSIDE RECORDS SUMMARY | ~2019-04-11 | XMS | Encounter Summary ---
Demographics + + + | Address | [address] | | | [place] [address] | + + + | Home Phone [...] | Author | [facility] | | | and Khurramana | + + + | Organization | [facility] | | | [...] Team Providers + +------+ + | Care Engineering And Operations Director Name | Role | Phone | [...] + + | 03/29/ | Surgery | [facility] | [place] | Posterior Total Hip | | 2019 | | [facility] | MD [address]aina [address] | Arthroplasty | | | | OPERATING ROOM [address] | [address] | | | | | [address] | [place] [address] | | | | | [place], [place] | [phone] | | | | | [address] | | | | | | [phone] | | | +--------+---------+ + + + [...] 03/29/201932 PDT | + + + + documented in this encounter Discharge Summaries Gus Orzoco PA-C - 03/31/2019 1226 PDTFormatting of this [...] lumbar 02/04/2016 Diabetes type 2, controlled ([facility]) Full dentures upper & lower GERD (gastroesophageal [...] Procedure: ERCP; Surgeon: Gregor Mccord MD; Location: [facility] MEDICAL PROCEDURE UNIT ERCP N/A 10/14/2016 Procedure: ERCP w/ stent pull; Surgeon: Gregor Mccord MD; Location: [facility] MEDICAL PROCEDU RE UNIT HARDWARE REMOVAL Left 03/29/2019 Procedure: REMOVE HARDWARE LOWER EXTREMITY-HIP; Surgeon: [place] MD; Location : [facility] MAIN OR PARTIAL HYSTERECTOMY 1971 RECTOCELE REPAIR 1991 TAILBONE 1972 broken, partial removal TONSILLECTOMY 1938 TOTAL HIP [...] Code Follow up: Gus Orozco PA-C [address] [facility] [address] In 2 weeks Discharge Medications Changed Medications [...] | | | | | | ([facility]) | | | | | | | MISC | | | | | | + + + +---------+ + + | Eglon-3 Fatty | Take 1 tablet by | [...] might be different from t he original. [facility] Progress Note Primary [...] signed by: Gus Orozco PA-C, 03/30/2019 9:32 [place], Viv Brock RN - 03/29/2019 [facility] RN documented in this encoun ter Plan of Treatment +--------+---------+ + + + | Date | Type | Specialty | Care Team | Description | +--------+---------+ + + + | 05/16/ | Office | Orthopedic Surgery | Mark [place] | | | 2018 | Visit | | MD Alaina [address] | | | | | | [address] | | | | | | [place] [address] | | | | | | [phone] | | | | | | | | +--------+---------+ + + + | 06/30/ | Office | Cardiology | Smitha Griffin DO | | | 2019 | Visit | | [address] | | | | | | [place] | | | | | | [address] | | | | | | | [...] Needs | | | | | | Derek | | | r | | | [...] | | | POC | performed at [facility];[address] | | LABORATORY | | | | [address];[place], [place] | | | | | | [address] | | | | + + + + + + + + | Specimen | + + | | + + + + + + + | Performing | Address | City/State/Zipcode | Phone Number | | Organization | | | | + + + + + | [facility] | [address] | [place] [address] | [phone] | + + + + + POC Glucose (03/31/2019 7:23 PDT) + + + + + + | Component | Value | Ref Range | Performed | Pathologist | | | | | At | Signature | + + + + + + | Glucose, | 122 (H)Comment: Testing | 65 - 99 mg/dL | [facility] | | | POC | performed at [facility];[address] | | LABORATORY | | | | [address];[place] | | | | | | [address] | | | | + + + + + + + + | Specimen | + + | | + + + + + + + | Performing | Address | City/State/Zipcode | Phone Number | | Organization | | | | + + + + + | [facility] | [address] | [place] [address] | [phone] | + + + + + POC Glucose (03/30/2019 20:57 PDT) + + + + + + | Component | Value | Ref Range | Performed | Pathologist | | | | | At | Signature | + + + + + + | Glucose, | 98Comment: Testing | 65 - 99 mg/dL | [facility] | | | POC | performed at [facility];[address] | | LABORATORY | | | | [address];[place] | | | | | | [address] | | | | + + + + + + + + | Specimen | + + | | + + + + + + + | Performing | Address | City/State/Zipcode | Phone Number | | Organization | | | | + + + + + | [facility] | [address] | [place] [address] | [phone] | + + + + + Hemoglobin [...] Testing | 34.0 - 46.0 % | [facility] | | | | performed at [facility];[address] | | LABORATORY | | | | [address];[place] | | | | | | [address] | | | | + + + + + + + + | Specimen | + + | Blood | + + + + + + + | Performing | Address | City/State/Zipcode | Phone Number | | Organization | | | | + + + + + | [facility] | [address] | [place] [address] | [phone] | + + + + + POC Glucose (03/30/2019 3:23 PDT) + + + + + + | Component | Value | Ref Range | Performed | Pathologist | | | | | At | Signature | + + + + + + | Glucose, | 147 (H)Comment: Testing | 65 - 99 mg/dL | [facility] | | | POC | performed at [facility];[address] | | LABORATORY | | | | [address];[place], [place] | | | | | | [address] | | | | + + + + + + + + | Specimen | + + | | + + + + + + + | Performing | Address | City/State/Zipcode | Phone Number | | Organization | | | | + + + + + | [facility] | [address] | [place] [address] | [phone] | + + + + + POC Glucose (03/29/2019 20:59 PDT) + + + + + + | Component | Value | Ref Range | Performed | Pathologist | | | | | At | Signature | + + + + + + | Glucose, | 172 (H)Comment: Testing | 65 - 99 mg/dL | [facility] | | | POC | performed at [facility];[address] | | LABORATORY | | | | [address];[place], [place] | | | | | | [address] | | | | + + + + + + + + | Specimen | + + | | + + + + + + + | Performing | Address | City/State/Zipcode | Phone Number | | Organization | | | | + + + + + | [facility] | [address] [facility] | [place] [address] | [phone] | + + + + + XR Pelvis 1 or 2 Vw (03/29/2019: PDT) + + | Specimen | + [...] | | | | Signed by: Yrn Johnson, Raimundo | | Sign Date/Time: 03/29/2019 10:33 AM [...] | | | POC | performed at [facility];[address] | | LABORATORY | | | | [address];[place], [place] | | | | | | [address] | | | | + + + + + + + + | Specimen | + + | | + + + + + + + | Performing | Address | City/State/Zipcode | Phone Number | | Organization | | | | + + + + + | [facility] | [address] | [place] [address] | [phone] | + + + + + Type [...] + + + | BB BAND | [id number] | | [facility] | | | | | | LABORATORY | | + + + + + + | BB BAND | Testing performed at | | [facility] | | | | [address] | | LABORATORY | | | | [address];[place] [address] | | | | + + + + + + + + | Specimen | + + | Blood | + + + + + + + | Performing | Address | City/State/Zipcode | Phone Number | | Organization | | | | + + + + + | [facility] | [address] | [place] [address] | [phone] | + + + + + POC Glucose (03/29/2019 6:42 PDT) + + + + + + | Component | Value | Ref Range | Performed | Pathologist | | | | | At | Signature | + + + + + + | Glucose, | 96Comment: Testing | 65 - 99 mg/dL | [facility] | | | POC | performed at [facility];[address] | | LABORATORY | | | | [address];[place] | | | | | | [address] | | | | + + + + + + + + | Specimen | + + | | + + + + + + + | Performing | Address | City/State/Zipcode | Phone Number | | Organization | | | | + + + + + | [facility] | [address] | [place] [address] | [phone] | + + + + + documented [...] HOURS PRN, Itching, | | | Starting 03/29/19 at 1417, | | | Oral route is preferred., | | | Post-op/Phase II | | + +---+ | | | + +---+ | diphenhydrAMINE (BENADRYL) | | | capsule 25 mg 25 mg, Oral, EVERY | | | 4 HOURS PRN, Itching, Starting | | | 03/29/19 at 1417, Oral route | | | [...] | on Thu03/29/19 at 1230, | | PDT | | [...] PDT | | | | | Starting Thu03/29/19 at 1417, | | | | | [...] | | 0.25%-EPINEPHrine 1:200,000 (PF) | | PDT | | | | | 30 [...] Pain, Mild Pain, Starting Tue | | PDT | | | | [...]
--- OUTSIDE RECORDS SUMMARY | ~2019-04-11 | XMS | Encounter Summary ---
Demographics + + + | Address | [address] | | | [place] [address] | + + + | Home Phone [...] | Author | [facility] | | | and Khurramana | + + + | Organization | [facility] | | [...] Team Providers + +------+ + | Care Cash Teller Name | Role | Phone | + [...] Post-op Question | | 2018 | | [place] [address] | MD Alaina [address] | | | | | [address] [place], [place] | [address] | | | | | [address] | [place] [address] | | | | | [phone] | [phone] | | | | | | | [...] [address] | | | | | | [place] [address] | | | | | | [phone] | | | | | | | | +--------+---------+ + + + | 06/30/ | Office | Cardiology | Smitha Griffin DO | | | 2020 | Visit | | [address] | | | | | | [place] | | | | | | [address] | | | | | | | | +--------+---------+ + + + documented as of this encounter Visit Diagnoses Not on filedocumented in this encounter"
--- OUTSIDE RECORDS SUMMARY | ~2019-04-11 | XMS | Encounter Summary ---
Demographics + + + | Address | [address] | | | [place] [address] | + + + | Home Phone [...] + | Author | [facility] | | | and Khurramana | + + + | Organization | [facility] | | [...] Team Providers + +------+ + | Care Log Haul Operator Name | Role | Phone | + +------+ + | Susan Leos | PCP | | | PA-C | | | + +------+ + Encounter Details +--------+ + + + + | Date | Type | Department | Care Team | Description | +--------+ + + + + | 03/21/ | Preadmit | [facility] | Mark [place] | | | 2019 | Visit | CENTER PREADMIT | MD [address]aina [address] | | | | | CLINIC [address] | [address] | | | | | [place], [place] | [place] [address] | | | | | [address] | [phone] | | | | | [phone] | | | +--------+ + + + [...] were given in the hospital. Wear them [id number] d ay for3 to 4weeks. To relieve discomfort at night, get up and move around. Tell all your healthcare providers including your dentist about your artificial join t before any procedure. You mayneed to take antibiotics before dental work and other medic al procedures to reduce the risk of infection. Arrangeto have your lobito removed [id number] after surgery. The lobito were u sed [...] ur hip joint. Use a raisedtoilet seat [id number] after surgery. Ask your healthcare provider if [...] put on socks and shoes. And don't pickup driver items from the floor. Use a cane, [...] draining from the incision Date Last Reviewed: 10/13/201719998643-4910 [employer]. [address] [place] [address], [place] [id number]. All righ ts reserved. This information is not intended as a substitute for professional medical care. Always follow your healthcare professional's instructions. Outpatient Medications Marked as Taking for the 03/21/19 encounter (Preadmit Visit) with [facility] ROOM 2 Medication Sig Instructions acetaminophen [...] of proced ure Multiple Vitamins-Minerals ([facility]) MISC Take by mouth. DO NOT TAKE day of procedure [place]-3 Fatty Acids (PRO NUTRIENTS OMEGA 3 PO) [...] | | | | | | [place] [address] | | | | | | [phone] | | | | | | | | +--------+---------+ + + + | 06/30/ | Office | Cardiology | Smitha Griffin DO | | | 2019 | Visit | | [address] | | | | | | [place] | | | | | | [address] | | | | | | | [...] | [facility] | | | Screen | [address] | | LABORATORY | | | | [address];[place] [address] | | | | + + + + + + + + | Specimen | + + | Blood | + + + + + + + | Performing | Address | City/State/Zipcode | Phone Number | | Organization | | | | + + + + + | [facility] | [address] | [place] [address] | [phone] | + + + + + MRSA [...] | | | | performed at [facility] | | LABORATORY | | | | [address];[place] | | | | | | [address] | | | | + + + + + + + + | Specimen | + + | Tissue | + + + + + + + | Performing | Address | City/State/Zipcode | Phone Number | | Organization | | | | + + + + + | [facility] | [address] | [place] [address] | [phone] | + + + + + Hemoglobin A1C (03/21/2019 15:33 PDT) + + + + + + | Component | Value | Ref Range | Performed | Pathologist | | | | | At | Signature | + + + + + + | Hemoglobin | 5.8Comment: HbA1c method | 4.0 - 6.0 % | [facility] | | | A1c | [...] | 120Comment: Estimated | <154 mg/dL | [facility] | | | Average | Average Glucose | | LABORATORY | | | Glucose | calculated from | | | | | | hemoglobin A1c by use of | | | | | | the ADArecommended | | | | | | formula.Testing | | | | | | performed at [facility], [address] | | | | | | [facility], | | | | | | [place] [address] | | | | + + + + + + + + | Specimen | + + | Blood | + + + + + + + | Performing | Address | City/State/Zipcode | Phone Number | | Organization | | | | + + + + + | [facility] | [address] | [place] [address] | [phone] | + + + + + CBC [...] | | | | performed at [facility];[address] | | | | | | [address];[place] | | | | | | [address] | | | | + + + + + + + + | Specimen | + + | Blood | + + + + + + + | Performing | Address | City/State/Zipcode | Phone Number | | Organization | | | | + + + + + | [facility] | [address] | [place] [address] | [phone] | + + + + + Basic [...] | | | | performed at [facility];[address] | | | | | | [facility];[place], [place] | | | | | | [address] | | | | + + + + + + + + | Specimen | + + | Blood | + + + + + + + | Performing | Address | City/State/Zipcode | Phone Number | | Organization | | | | + + + + + | [facility] | [address] | [place] [address] | [phone] | + + + + + ECG [...]
--- OUTSIDE RECORDS SUMMARY | ~2019-04-11 | XMS | Encounter Summary ---
Demographics + + + | Address | [address] | | | [place] [address] | + + + | Home Phone | | + + + | Preferred Language | Unknown | + + + | Marital Status | | + + + | Congregational Affiliation | 1077 | + + + | Race | Unknown | + + + | Ethnic Group | Unknown | + + + Author + + + | Author | [facility] | | | and Khurramana | + + + | Organization | [facility] | | | and [...] Providers + +------+ + | Care Pump Mechanic Name | Role | Phone | + +------+ + | Susan Leos | PCP | | | PA-C | | | + +------+ + Encounter Details +--------+ + + + + | Date | Type | Department | Care Team | Description | +--------+ + + + + | 03/14/ | [facility] | [facility] | Mark Montana | Left hip pain | | 2018 | Encounter | [address] | MD Sk[address] | | | | | [address] | [address] | | | | | [place], [place] | [place] [address] | | | | | [address] | [phone] | | | | | [phone] | | | +--------+ + + + [...] + + + +---------+ + + | Alburnett-3 Fatty | Take 1 tablet by | [...] | | | | | [place] [address] | | | | | | [phone] | | | | | | | | +--------+---------+ + + + | 06/30/ | Office | Cardiology | Smitha Griffin DO | | | 2019 | Visit | | [address] | | | | | | [place] | | | | | | [address] | | | | | | | [...]
--- OUTSIDE RECORDS SUMMARY | ~2019-04-11 | XMS | Encounter Summary ---
Demographics + + + | Address | [address] | | | [place] [address] | + + + | Home Phone | | + + + | Preferred Language | Unknown | + + + | Marital Status | | + + + | Temple Affiliation | Unknown | + + + | Race | White | + + + | Ethnic Group | Not or | + + + Author + + + | Author | [facility] | + + + | Organization | [facility] | + + + | [...] Team Providers + +------+ + | Care Pound Keeper Name | Role | Phone | + [...] [facility] | | | | | | [facility] | | | | | | and Healing, | | | | | | Building 1, 5th | | | | | | Floor [place], [place] | | | | | | [address] | | | | | | [phone] | | | +--------+ + + + [...] | | | | | | skin, [id number]. The | | | | | | [...] [facility] | Mail[address], [address] | [place] [address] | | | DERMATOPATHOLOGY | [address] | | | + + + + + documented in this encounter Visit Diagnoses + + | Diagnosis | + + | Other melanin hyperpigmentation | + + documented in this encounter
--- OUTSIDE RECORDS SUMMARY | ~2019-04-11 | XMS | Encounter Summary ---
Demographics + + + | Address | [address] | | | [place] [address] | + + + | Home Phone [...] + | Author | [facility] | | | and Khurramana | + + + | Organization | [facility] | | | and [...] Team Providers + +------+ + | Care Casey Saw Operator Name | Role | Phone | [...] | | | | | from | [address] | [address] | | | | | [place] at | [address] | [address] | | | | | [facility] | [place], | [place], [place] | | | | | Procedures | [place] | [address] Phone: | | | | | NEW PATIENT | [address] | [phone] | | | | | | Phone: | Fax: | | | | | | [phone] | [phone] | | | | | | Fax: | | | | | | | [phone] | | + +--------+ + + + + Encounter Details +--------+---------+ + + + | Date | Type | Department | Care Team | Description | +--------+---------+ + + + | 09/30/ | Office | [facility] | Mark Montana | 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[place], [place]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 (Primary | | | | [address] | [place] [address] | Dx) | | | | [phone] | [phone] | | | | | | | [...] Procedure: ERCP; Surgeon: Gregor Mccord MD; Location: [facility] MEDICAL PROCEDURE UNIT ERCP N/A 10/14/2016 Procedure: ERCP w/ stent pull; Surgeon: Gregor Mccord MD; Location: [facility] RE UNIT PARTIAL HYSTERECTOMY 1972 RECTOCELE REPAIR [...] mouth Daily., Disp: , Rfl: Multiple Vitamins-Minerals ([facility]) MISC, Take by mouth., Disp: , Rfl: [place]-3 Fatty Acids (PRO NUTRIENTS OMEGA 3 PO), [...] | | | | | [place] [address] | | | | | | [phone] | | | | | | | | +--------+---------+ + + + | 06/30/ | Office | Cardiology | Smitha Griffin DO | | | 2019 | Visit | | [address] | | | | | | [place] | | | | | | [address] | | | | | | | [...]
--- OUTSIDE RECORDS SUMMARY | ~2019-04-11 | XMS | Clinical Summary ---
Demographics + + + | Address | [address] | | | [place] [address] | + + + | Home Phone | | + + + | Preferred Language | Unknown | + + + | Marital Status | | + + + | Latter Day Affiliation | Unknown | + + + [...] Providers + +------+ + | Care Engraver Rubber Name | Role | Phone | + +------+ + PCP | Unavailable | + +------+ + Source Comments FIORELLA is fully live on both [facility] Ambulatory and [facility] InPatient.[facility] Allergies Not on File Medications [...] | OLOGY | | | | Case: [id number] | | | | | | | [...] [facility] | Mailcode [address]5D, [address] | [place] [address] | | | DERMATOPATHOLOGY | [address] [...] | MODA | [phone] | Effect | [phone] | [address] | PPO | | | MEDICA | | nestor | 4 | [phone] | | | | RE PPO | | for | | [place], | | | | | | all | | [place] [address] | | | | | | dates [...] | 1936 | [phone] | [place] [address] | | | aissatou | | | 3 (Home) | | + +--------+ +--------+ + +
--- OUTSIDE RECORDS SUMMARY | ~2019-04-11 | XMS | Encounter Summary ---
Demographics + + + | Address | [address] | | | [place] [address] | + + + | Home Phone [...] Author | [facility] | | | and Khurramana | + + + | Organization | [facility] | [...] Team Providers + +------+ + | Care Percussion Tuner Name | Role | Phone | + [...] Surgery Appointment | | 2018 | | [place] [address] | [address] | | | | | [place] | | | | | | [address] | | | | | | [phone] | | | +--------+ + + + [...] [address] | | | | | | [place] [address] | | | | | | [phone] | | | | | | | | +--------+---------+ + + + | 06/30/ | Office | Cardiology | Smitha Griffin DO | | | 2020 | Visit | | [address] | | | | | | [place] | | | | | | [address] | | | | | | | | +--------+---------+ + + + documented as of this encounter Visit Diagnoses Not on filedocumented in this encounter"
--- OUTSIDE RECORDS SUMMARY | ~2019-04-11 | XMS | Clinical Summary ---
Demographics + + + | Address | [address] | | | [place] [address] | + + + | Home Phone | | + + + | Preferred Language | Unknown | + + + | Marital Status | | + + + | Scientology Affiliation | Unknown | + + + | Race | Unknown | + + + | Ethnic Group | Unknown | + + + Author + + + | Author | [facility] (Historical as of | | | 01-29-19) | + + + | Organization | [facility] (Historical as of | | | 01-29-19) | + + + | Address | Unknown | + + + | Phone | Unavailable | + + + Support + + + + + | Name | Relationship | Address | Phone | + + + + + | Alejo Murguia | DIRK | [address] | | | | | [place] [address] | | + + + + + Care Team Providers + +------+ + | Care Informatics Coordinator Name | Role | Phone | [...]
--- OUTSIDE RECORDS SUMMARY | ~2019-04-11 | XMS | Encounter Summary ---
Demographics + + + | Address | [address] | | | [place] [address] | + + + | Home Phone [...] Author | [facility] | | | and Khurramana | + + + | Organization | [facility] | | [...] Team Providers + +------+ + | Care Processor Helper Name | Role | Phone | [...] [address] [place] | | | | | [address] | [place] [address] | | | | | [phone] | [phone] | | | | | | | [...] | | | | | [place] [address] | | | | | | [phone] | | | | | | | | +--------+---------+ + + + | 06/30/ | Office | Cardiology | Smitha Griffin DO | | | 2019 | Visit | | [address] | | | | | | [place] | | | | | | [address] | | | | | | | | +--------+---------+ + + + documented as of this encounter Visit Diagnoses Not on filedocumented in this encounter"
--- OUTSIDE RECORDS SUMMARY | ~2019-04-11 | XMS | Encounter Summary ---
Demographics + + + | Address | [address] | | | [place] [address] | + + + | Home Phone [...] | [facility] | | | and Khurramana | + + + | Organization | [facility] | | [...] Providers + +------+ + | Care Power Lineman Technician Name | Role | Phone | [...] | | | | | hip | [address] | [address] | | | | | | Phone: | Phone: | | | | | | [phone] | [phone] | | | | | | Fax: | Fax: | | | | | | [phone] | [phone] | + + + + + + [...] | | | | | from | [address] | [address] | | | | | [place]tega at | [address] | [address] | | | | | [facility] | [place], | [place], [place] | | | | | Procedures | [place] | [id number] Phone: | | | | | NEW PATIENT | [address] | [phone] | | | | | | Phone: | Fax: | | | | | | [phone] | [phone] | | | | | | Fax: | | | | | | | [phone] | | + +--------+ + + + + Encounter Details +--------+---------+ + + + | Date | Type | Department | Care Team | Description | +--------+---------+ + + + | 03/21/ | Office | [facility] | Gus Orozco, | 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[place], [place]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[place], | left hip (Primary | | | | [address] | [place] [address] | Dx) | | | | [phone] | [phone] | | | | | | | [...] [facility] MEDICAL PROC[facility]U RE UNIT PARTIAL HYSTERECTOMY 1971 [...] Maternal Uncle Social History Occupational History 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 Tobacco Use Smoking status: Never [...] MISC, Take by mouth., Disp: , Rfl: [place]-3 Fatty Acids (PRO NUTRIENTS OMEGA 3 PO), [...] 12 months?:yes Under the care of a green building energy engineer?: no Diabetes Optimization?:well controlled diet No results found for: LABGLYC History of MRSA/MSSA infection?:no Metal sensitivity or allergy?:no Intolerance to certain specific opiate?:no DVT/PE Risk Stratification Personal history of DVT/PE?:no Cancer treatment in the last 5 years?:no Hormone replacement therapy?:no Tolerate aspirin?:asa Current Anticoagulation?:asa Chemical prophylaxis plan:asa Anticipated Discharge Plan Discharge home to care of daughter (princess), [place] [facility] [place] [facility] Return for 2 and 6 weeks [...] | | | | | [place] [address] | | | | | | [phone] | | | | | | | | +--------+---------+ + + + | 06/30/ | Office | Cardiology | Smitha Griffin DO | | | 2019 | Visit | | [address] | | | | | | [place] | | | | | | [address] | | | | | | | [...]
--- OUTSIDE RECORDS SUMMARY | ~2019-04-11 | XMS | Encounter Summary ---
Demographics + + + | Address | [address] | | | [place] [address] | + + + | Home Phone [...] Team Providers + +------+ + | Care Floorworker Distributor Name | Role | Phone | + [...] [facility] | | | | | | [facility] | | | | | | and Healing, | | | | | | Building 1, 5th | | | | | | Floor [place], [place] | | | | | | [address] | | | | | | [phone] | | | +--------+ + + + [...] ls | | | | | | Received:[id number]/WW-0 | | | | | | 360-16 [...] Materials | | | | | | Returned:[id number] | | | | | | 360-16 [...] [facility] | Mailcode CH5D, [address] | [place] [address] | | | DERMATOPATHOLOGY | [address] | | | + + + + + documented in this encounter Visit Diagnoses Not on filedocumented in this encounter"
--- OUTSIDE RECORDS SUMMARY | ~2019-04-11 | XMS | Encounter Summary ---
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 Samara keiht about this Diet Gradually resume your normal [...] Horowitz RN - [facility]29/2019 [facility] Pop RN documented in this encoun ter Plan of Treatment +--------+---------+ + + + | Date | Type | Specialty | Care Team | Description | +--------+---------+ + + + | 05/16/ | Office | Orthopedic Surgery | Mark Montana | | | 2018 | Visit | | MD Alaina [address] | | | | | | [facility] [place] | | | | | | [place] [address] | | | | | | [phone] | | | | | | | | +--------+---------+ + + + | 06/30/ | Office | Cardiology | Smitha Griffin DO | | | 2019 | Visit | | [address] | | | | | | [place] | | | | | | [address] | | | | | | | [...] Testing | 65 - 99 mg/dL | [facility] | | | POC | performed at [facility];[address] | | LABORATORY | | | | [address];[place], [place] | | | | | | [address] | | | | + + + + + + + + | Specimen | + + | | + + + + + + + | Performing | Address | City/State/Zipcode | Phone Number | | Organization | | | | + + + + + | [facility] | [address] | [place] [address] | [phone] | + + + + + POC Glucose (03/31/2019 7:23 PDT) + + + + + + | Component | Value | Ref Range | Performed | Pathologist | | | | | At | Signature | + + + + + + | Glucose, | 122 (H)Comment: Testing | 65 - 99 mg/dL | [facility] | | | POC | performed at [facility];[address] | | LABORATORY | | | | [address];[place] | | | | | | [address] | | | | + + + + + + + + | Specimen | + + | | + + + + + + + | Performing | Address | City/State/Zipcode | Phone Number | | Organization | | | | + + + + + | [facility] | [address] | [place] [address] | [phone] | + + + + + POC Glucose (03/30/2019 20:57 PDT) + + + + + + | Component | Value | Ref Range | Performed | Pathologist | | | | | At | Signature | + + + + + + | Glucose, | 98Comment: Testing | 65 - 99 mg/dL | [facility] | | | POC | performed at [facility];[address] | | LABORATORY | | | | [address];[place] | | | | | | [address] | | | | + + + + + + + + | Specimen | + + | | + + + + + + + | Performing | Address | City/State/Zipcode | Phone Number | | Organization | | | | + + + + + | [facility] | [address] | [place] [address] | [phone] | + + + + + Hemoglobin [...] KR | | | | performed at [facility];[address] | | LABORATORY | | | | [address];[place] | | | | | | [address] | | | | + + + + + + + + | Specimen | + + | Blood | + + + + + + + | Performing | Address | City/State/Zipcode | Phone Number | | Organization | | | | + + + + + | [facility] | [address] | [place] [address] | [phone] | + + + + + POC Glucose (03/30/2019 3:23 PDT) + + + + + + | Component | Value | Ref Range | Performed | Pathologist | | | | | At | Signature | + + + + + + | Glucose, | 147 (H)Comment: Testing | 65 - 99 mg/dL | [facility] | | | POC | performed at [facility];[address] | | LABORATORY | | | | [address];[place] | | | | | | [address] | | | | + + + + + + + + | Specimen | + + | | + + + + + + + | Performing | Address | City/State/Zipcode | Phone Number | | Organization | | | | + + + + + | [facility] | [address] | [place] [address] | [phone] | + + + + + POC Glucose (03/29/2019 20:59 PDT) + + + + + + | Component | Value | Ref Range | Performed | Pathologist | | | | | At | Signature | + + + + + + | Glucose, | 172 (H)Comment: Testing | 65 - 99 mg/dL | [facility] | | | POC | performed at [facility];[address] | | LABORATORY | | | | [address];[place], [place] | | | | | | [address] | | | | + + + + + + + + | Specimen | + + | | + + + + + + + | Performing | Address | City/State/Zipcode | Phone Number | | Organization | | | | + + + + + | [facility] | [address] | [place] [address] | [phone] | + + + + + XR [...] | | | POC | performed at [facility];[address] | | LABORATORY | | | | [address];[place], [place] | | | | | | [address] | | | | + + + + + + + + | Specimen | + + | | + + + + + + + | Performing | Address | City/State/Zipcode | Phone Number | | Organization | | | | + + + + + | [facility] | [address] | [place] [address] | [phone] | + + + + + Type [...] + + + | BB BAND | [id number] | | [facility] | | | | | | LABORATORY | | + + + + + + | BB BAND | Testing performed at | | [facility] | | | | [address] | | LABORATORY | | | | [address];[place] [address] | | | | + + + + + + + + | Specimen | + + | Blood | + + + + + + + | Performing | Address | City/State/Zipcode | Phone Number | | Organization | | | | + + + + + | [facility] | [address] | [place] [address] | [phone] | + + + + + POC Glucose (03/29/2019 6:42 PDT) + + + + + + | Component | Value | Ref Range | Performed | Pathologist | | | | | At | Signature | + + + + + + | Glucose, | 96Comment: Testing | 65 - 99 mg/dL | [facility] | | | POC | performed at [facility];[address] | | LABORATORY | | | | [address];[place] | | | | | | [address] | | | | + + + + + + + + | Specimen | + + | | + + + + + + + | Performing | Address | City/State/Zipcode | Phone Number | | Organization | | | | + + + + + | [facility] | [address] | [place] [address] | [phone] | + + + + + documented [...] 19 7:01 | | | | | Tukaren 03/29/19 at 0630, For 1 dose, | [...] | | | 0721, For 1 dose, nares, Pre-op | | | | | | + +-------+ +---+---+---+ +---+---+ | | | +---+---+ + +-------+ +-------+---+---+ | traMADol (ULTRAM) tablet 50 mg | Given | 03/29/20 | 50 mg | | | | 50 mg, Oral, EVERY 6 HOURS PRN, | | 19 7:01 | | | | | Pain, Starting 03/29/19 at | | PDT | [...]
--- OUTSIDE RECORDS SUMMARY | ~2019-04-11 | XMS | Encounter Summary ---
Demographics + + + | Address | [address] | | | [place] [address] | + + + | Home Phone | | + + + | Preferred Language | Unknown | + + + | Marital Status | | + + + | Rastafari Affiliation | Unknown | + + + | Race | White | + + + | Ethnic Group | Not or | + + + Author + + + | Author | [facility] | + + + | Organization | [facility] | + + + | [...] Team Providers + +------+ + | Care Founding Partner Name | Role | Phone | + [...] Clinic Dermatology | | | | | [facility] | [address] [facility] | | | | | and Healing, | [place] | | | | | [facility] [address] | [address] | | | | | Floor [place], [place] | | | | | | [address] | | | | | | [phone] | | | +--------+ + + + [...] | OLOGY | | | | Case: [id number] | | | | | | | [...] | | | | | | Keo aJmes, | | | | | | MD [...] | [facility] | [address] | [place] [address] | | | DERMATOPATHOLOGY | [address] | | | + + + + + documented in this encounter Visit Diagnoses + + | Diagnosis | + + | Neoplasm of uncertain behavior of skin | + + documented in this encounter
--- OUTSIDE RECORDS SUMMARY | ~2019-04-11 | XMS | Encounter Summary ---
Demographics + + + | Address | [address] | | | [place] [address] | + + + | Home Phone [...] + | Author | [facility] | | | and Khurramana | + + + | Organization | [facility] | | | and [...] Providers + +------+ + | Care Supervisor Bottle Machines Name | Role | Phone | + [...] + + | 03/29/ | Anesthesia | [facility] | Michela Eli | | | 2019 | Event | [facility] | MD Jena [address] | | | | | OPER[address] | [place], [place] | | | | | [facility] | [address] | | | | | [place], [place] | | | | | | [address] | | | | | | [phone] | | | +--------+ + + + [...] +----+---+ + + | | 0 | Teague | | | | 8 | 43-degrees [...] 03/30/19 0431 by | | eral | qkne-vkt-zvtvji catheter system; | Paula Young RN | [...] | | | | | [place] [address] | | | | | | [phone] | | | | | | | | +--------+---------+ + + + | 06/30/ | Office | Cardiology | Smitha Griffin DO | | | 2019 | Visit | | [address] | | | | | | [place] | | | | | | [address] | | | | | | | [...] +-------+ +-------+---+---+ +-------+ +------+---+---+ | Given | /15/20 | 5 mg | | | | | 19 8:22 | | | | | | PDT | | | | +-------+ +------+---+---+ | Given | 10/15/20 | 5 mg | | | | [...]
--- OUTSIDE RECORDS SUMMARY | ~2019-04-11 | XMS | Encounter Summary ---
Demographics + + + | Address | [address] | | | [place] [address] | + + + | Home Phone [...] + + | Author | [facility] | + + + | Organization | [facility] | + + + | Address | Unknown | + + + | Phone | Unavailable | + + + Support + + + + + | Name | Relationship | Address | Phone | + + + + + | Chrissie Leos | DIRK | [place] | | + + + + + Care Team Providers + +------+ + | Care Vice Principal Name | Role | Phone | + +------+ + PCP | Unavailable | + +------+ + Encounter Details +--------+ + + + + | Date | Type | Department | Care Team | Description | +--------+ + + + + | 03/20/ | Transcribed | Allergy Clinic at | Dictation, Other | Transcribed | | 1996 | | [facility] [address] | | | | | | [address] | | | | | | Mailcode: [address] | | | | | | [address] | | | | | | [place], | | | | | | [place] [address] | | | | | | [phone] | | | +--------+ + + + [...] as of this encounter Progress Notes Interface, Brass Molder In - 07/30/2006 1:06 AM PST [address] [address] or March 20, 1997 AKIRA LEOS MD [facility] [address] [place] [address] RE:Scarlet Murguia MR#:[id number] Leos: We [...] se, as manifested by pain at rest, stylist assistant stiffness for greater than an hour or [...] Internal Medicine TERRY/artemio cc: Samia Montano M.D. Line Service Technician, Medicine Rheumatology and Arthritis documented in this encounter Plan of Treatment Not on filedocumented as of this encounter Visit Diagnoses Not on filedocumented in this encounter
[~2019-04-11 09:40] MED LIST changes: +ASPIRIN325 MG PO; +ATENOLOL50 MG PO; +LOSARTAN POTASS50 MG PO; +OXYCODONE HCL5 MG PO; +VENLAFAXINE HCL75 M1 PO; +XARELTO10 MG PO
--- NOTE | 2019-04-11 11:19 | NUR ---
PT MOVED FROM IN PT ROOM 120 TO SWING BED ROOM 113. RESTING IN BED AT THIS TIME, VISITOR JUST LEFT. PAIN MED GIVEN FOR 6/10 LEFT HIP PAIN. DAUGHTER IN AFTER BREAKFAST AMBULATES WITH PT IN THE HEADLEY.
--- NOTE | 2019-04-11 11:21 | NUR ---
Met with Scarlet in her room. PT is finishing evaluation. Scarlet states she thinks she failed. States she does not feel she can go home an comfortable cook and clean for herself. States she was able to stand less than a minute when she attempted this am. Encouraged to keep working with PT for strengthening.
--- NOTE | 2019-04-11 14:10 | NUR ---
PT AGREES TORDOL WAS EFFECTIVE FOR HER DENIES PAIN AT THIS TIME. UP TO WORK WITH P/T DAUGHTER WAITING IN ROOM
--- NOTE | 2019-04-11 15:01 | NUR ---
PT IS RESTING IN BED, WATCHING TV. SHE IS PLEASANT AND HAS A BIG SMILE. PT MENTIONED THAT HER ROTARY DRUM TANNER CAME BY TODAY AND THAT REALLY PLEASED HER. PTS' HANDS ARE COLD, GOT HER A WARM BLANKET FOR HER HANDS AND HAD PRAYER WITH HER. WILL FOLLOW NEEDED
--- NOTE | 2019-04-11 15:46 | NUR ---
PT DAUGHTER HERE, WITH THIS PT'S DOG TO VISIT. PT HAS BEEN UP TO TOILET AND TO AMBULATE SEVERAL TIMES THIS SHIFT WELL TOLERATED. HAS BEEN MEDICATED FOR PAIN 1X NO FURHTER C/O
--- NOTE | 2019-04-11 17:58 | NUR ---
PT UP IN THE CHAIR READING THE PAPER. DENIES ANY PAIN. CALL LIGHT IN REACH FRESH H20 PROVIDED
--- NOTE | 2019-04-11 18:29 | NUR ---
PATIENT SITTING IN CHAIR TALKING WITH VISITOR. CALL LIGHT IN REACH. NO FURTHER NEEDS AT THIS TIME.
--- NOTE | 2019-04-11 18:32 | NUR ---
PT ADMITTED TO SWING BED TODAY FROM ROOM 120 IN PATIENT. SHE HAS BEEN ALERT AND ORIENTED ENTIRE SHIFT USING CALL LIGHT APPROPRIATELY. SHE HAS BEEN UP TO WORK WITH P/T AND TOLERATED THIS WELL, UP SBA WITH WALKER. ULTRAM GIVEN FOR PAIN 1X THIS SHIFT.
--- NOTE | 2019-04-11 19:30 | NUR ---
CALL LIGHT ANSWERED. SBA WITH FWW TO RESTROOM FOR VOID AND BACK TO BED. PT REQUIRING SOME ASSISTANCE WITH GETTING LEGS IN AND OUT OF BED. CALL LIGHT AND PERSONAL SUPPLIES IN REACH.
--- NOTE | 2019-04-11 20:40 | NUR ---
REPORT RECEIVED FROM DAY SHIFT RN. IN TO SEE PT, PT ALERT AND ORIENTED WATCHING TV IN BED. EVENING MEDS GIVEN WITHOUT DIFFICULTY. PT DENIES PAIN AT THIS TIME. UP TO BR WITH FWW AND SBA TO VOID 300ML. PT AT THE SINK TO DO OWN PM CARES. BACK TO BED, RYAN WELL. ASSESSMENT COMPLETE. INCISION ON LEFT HIP WELL APPROXIMATED, OPEN TO AIR. NO OTHER REQUESTS AT THIS TIME. CALL LIGHT IN REACH.
--- NOTE | 2019-04-12 00:39 | NUR ---
PT RESTING IN BED WITH EYES CLOSED, NAD. CALL LIGHT IN REACH.
--- NOTE | 2019-04-12 01:03 | NUR ---
CALL LIGHT ANSWERED. PT UP TO BR WITH FWW AND SBA TO VOID. BACK TO BED, RYAN WELL. NO OTHER REQUESTS AT THIS TIME, CALL LIGHT WITHIN REACH.
--- NOTE | 2019-04-12 04:45 | NUR ---
PT RESTING IN BED WITH EYES CLOSED, RR EVEN AND UNLABORED. CALL LIGHT IN REACH.
--- NOTE | 2019-04-12 05:03 | NUR ---
PT RESTED WELL THROUGHOUT THE NIGHT. UP TO BR WITH FWW AND SBA. PT HAS URGE INCONTINENCE AT TIMES, VOIDING QS. USES CALL LIGHT APPROPRIATELY. REG DIET. LEFT HIP INCISION WELL APPROXIMATED, OPEN TO AIR. BILAT LOWER EDEMA NOTED. PT DENIES PAIN.
--- NOTE | 2019-04-12 06:21 | NUR ---
AM MEDS GIVEN WITHOUT DIFFICULTY. PT UP TO BR WITH SBA AND FWW. PT INCONTINENT OF URINE, FRESH BRIEF GIVEN. PT TO DO OWN MELISSA CARE. BACK TO RECLINER, RYAN WELL. PT DENIES PAIN. CALL LIGHT IN REACH.
--- NOTE | 2019-04-12 07:42 | NUR ---
SITTING UP IN RECLINER AT THIS TIME. ALERT ET ORIENTED x4. REPORT RECIEVED FROM REGISTERED NURSE STEP DOWN. PT DENIES NEEDS AT THIS TIME. CALL LIGHT IN REACH.
--- NOTE | 2019-04-12 08:00 | NUR ---
Patient sitting up in recliner. Patient refused shower. Talked to patient about washing up a little with bathwipes when her daughter brings her clothes patient agreed.
--- NOTE | 2019-04-12 10:34 | NUR ---
Scarlet walking in the patrick with PT. Laughing, states she feels so much better with a room with a view. No SOB. States she is still having problems with standing for any length of time. Concerned she will be unable to prepare food.
--- NOTE | 2019-04-12 13:57 | NUR ---
pt in physical therapy room working with
--- NOTE | 2019-04-12 14:17 | NUR ---
PT SITTING IN CHAIR-BIG SMILE AND STATED THAT SHE IS HAVING A GOOD DAY! PT LIKES THE FOOD, ESPECIALLY BECAUSE SHE DOESN'T HAVE TO COOK OR CLEAN UP. WILL CONTINUE TO FOLLOW A SNEEDED
--- NOTE | 2019-04-12 14:55 | NUR ---
SITTING UP IN CHAIR. DENIES NEEDS AT THIS TIME. CALL LIGHT IN REACH.
--- NOTE | 2019-04-12 15:54 | NUR ---
PT REPORTS PAIN 4/10. ULTRAM 50MG PO PRN GIVEN AT THIS TIME.
--- NOTE | 2019-04-12 17:17 | NUR ---
PT HAS BEEN UP WITH PHYSICAL THERAPY AND STAFF AMBULATING IN HALLS ONE PERSON ASSIST. PT HAS HAD PRN PAIN MEDICATION ONCE. SHE HAS HAD GOOD APPETITE. EDEMA BLE, ELEVATE ON PILLOWS. INCISION WNL WELL PROXIMATED
--- NOTE | 2019-04-12 19:40 | NUR ---
REPORT RECEIVED FROM DAY SHIFT RN. PT LYING IN BED ALERT AND ORIENTED WATCHING T.V. NO REQUESTS AT THIS TIME, CALL LIGHT WITHIN REACH.
--- NOTE | 2019-04-12 20:49 | NUR ---
PRIMARY RN AWARE OF PATIENT'S BP.
--- NOTE | 2019-04-12 23:27 | NUR ---
PM MEDS GIVEN WITHOUT ISSUE. PT IN BED, WATCHING TV. ASSESSMENT COMPLETE. PT DENIES PAIN. LEFT HIP INCISION WELL APPROXIMATED, OPEN TO AIR. NO FURTHER QUESTIONS OR REQUESTS AT THIS TIME. CALL LIGHT IN REACH.
--- NOTE | 2019-04-13 01:27 | NUR ---
PT RESTING IN BED WITH EYES CLOSED, RR EVEN AND UNLABORED. CALL LIGHT WITHIN REACH.
--- NOTE | 2019-04-13 03:38 | NUR ---
PT CONTINUES TO REST IN BED, NAD. CALL LIGHT IN REACH.
--- NOTE | 2019-04-13 05:23 | NUR ---
PT SLEPT THROUGH THE NIGHT. DENIES PAIN. SBA WITH FWW. NO IV. PT WORKING WITH PT/OT. ATTENDS IN PLACE FOR URGE INCONTINENCE.
--- NOTE | 2019-04-13 05:56 | NUR ---
PATIENT ASSISTED TO THE RESTROOM A SBA W/FWW. PATIENT WAS ABLE TO VOID. PATIENT IS NOW IN THE RECLINER RESTING. INTAKE AND OUPUT RECORDED. PATIENT PROVIDED WITH FRESH COFFE AND ICE WATER. PATIENT DENIES ANY FURTHER NEEDS. CALL LIGHT IN REACH.
--- NOTE | 2019-04-13 06:23 | NUR ---
PT IN RECLINER DRINKING COFFEE. ALERT AND ORIENTED. AM MEDS GIVEN. ASSISTED PT WITH ORDERING BREAKFAST. CALL LIGHT IN REACH.
--- NOTE | 2019-04-13 07:25 | NUR ---
PT RESTING EYES CLOSED APPEARS COMFORTABLE BEDSIDE REPORT RECEIVED
--- NOTE | 2019-04-13 08:44 | NUR ---
PATIENT SITTING UP IN CHAIR. PATIENT GOES TO USE BATHROOM. PATIENT USES WALKER. PATIENT TAKES A SHOWER. ONE PERSON ASSISTING. PATIENT USING A CLEAN ADULT PULL UP. PATIENT BACKS TO CHAIR. VITAL SIGNS AND I&O DONE. WARM BLANKET PROVIDED. CALL LIGHT WITHIN REACH. NO OTHER NEEDS AT THIS TIME
--- NOTE | 2019-04-13 09:30 | NUR ---
PT UP TO CHAIR FOR MORNING MEAL APPETITE INTACT. DENIES PAIN, NAUSEA, SOB, OR OTHER DISCOMFORTS. UP TO WORK WITH P/T SHE TOLERATES THIS WELL. PT HAS HAD A SHOWER THIS SHIFT WELL. CURRENTLY SITTING IN CHAIR READING DENIES NEED OF PUSSZLES, COLOR ITEMS OR OTHER. NEWSPAPER PROVIDED
--- NOTE | 2019-04-13 11:58 | NUR ---
pt resting in bed eyes closed appears comfortable
--- NOTE | 2019-04-13 12:31 | NUR ---
Pt. sleeping, will check again tomorrow. Per report she is doing well with PT, working with OT for dressing.
--- NOTE | 2019-04-13 12:58 | NUR ---
PATIENT RESTING IN BED. VISITORS IN ROOM. I&O DONE. CALL LIGHT WITHIN REACH. NO OTHER NEEDS AT THIS TIME
--- NOTE | 2019-04-13 14:20 | NUR ---
PT RESTING IN BED WATCHING GAME SHOWS EATING SHORTCAKE. DENIES DISCOMFORTS OR NEEDS OF
--- NOTE | 2019-04-13 14:41 | NUR ---
PT LAYING IN BED, WATCHING TV. SHE IS PLEASANT AND SEEMS TO ENJOY VISITS. 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 GAVE BLESSING AND WILL FOLLOW NEEDED
--- NOTE | 2019-04-13 17:16 | NUR ---
PATIENT USING BATHROOM. PATIENT BACKS TO CHAIR. I&O DONE. SETS UP TABLE FOR DINNER. CALL LIGHT WITHIN REACH. NO OTHER NEEDS AT THIS TIME
--- NOTE | 2019-04-13 17:41 | NUR ---
PT UP IN CHAIR WITH EVENING MEAL. DENIES PAIN OR DISCOMFORTS
--- NOTE | 2019-04-13 20:43 | NUR ---
up to br with 1pa/fww, voided, tolerated well. Coop with assessment
--- NOTE | 2019-04-13 20:53 | NUR ---
ROUNDED CHARGE. PATIENT ASSISTED BACK TO BED FROM RESTROOM. PATIENT IS NOW RESTING IN BED. PATIENT DENIES ANY PAIN. PATIENT DENIES ANY COMMENTS, QUESTIONS OR CONCERNS. NO NEEDS NOTED. CALL LIGHT IN REACH.
--- NOTE | 2019-04-13 22:45 | NUR ---
PATIENT WAS IN BED SLEEPING. FRESH WATER WAS GIVEN AND CALL LIGHT IN REACH.
--- NOTE | 2019-04-14 00:18 | NUR ---
Resting, eyes closed, no resp distress. Continues on Swing bed status, call light at bedside,
--- NOTE | 2019-04-14 01:40 | NUR ---
ON SWING BED STATUS, RESTING, EYES CLOSED, NO RESP DISTRESS. CALL LIGHT AND FLUIDS AT BEDSIDE.
--- NOTE | 2019-04-14 03:27 | NUR ---
Resting, eyes closed, no s/sx distress, call light at bedside
--- NOTE | 2019-04-14 03:52 | NUR ---
Up to br, voided yellow urine. no c/o pain, 1pa/fww. Tolerated well. Back to bed, edema le ice to area. Tolerating fluids well, Call light at bedside
--- NOTE | 2019-04-14 04:15 | NUR ---
Pt has slept all this shift, Up to br x2, improvd gait and stamina, no sob noted on return. L sided hip incision healing well. edema to L ankle present, Ice to area. Weakness of L leg present. working w PT. Pt has denied c/o pain. Tolerating fluids and diet well. Coop with NCP/Swing bed/Transitional care status. Pt pleasant, more alert than earlier in the week. Continue to reorient with each interaction. Call light at bedside
--- NOTE | 2019-04-14 06:11 | NUR ---
Up to br voided, plus was incontinent of urine. Back to bed, tolerated well. 1PA/FWWm continues to have L leg weakness, much improved gait and stamine noted. No c/o pain
--- NOTE | 2019-04-14 07:27 | NUR ---
0705: Bedside report recieved from Shirley ROSENBAUM. Pt resting in her bed with no complaints and she appears comfortable. Call patel within reach.
--- NOTE | 2019-04-14 08:32 | NUR ---
PT AMBULATED TO THE BR WITH HER FWW AND A SBA AND SHE WAS STEADY AND DENIES ANY PAIN. THE LEFT HIP AREA IS NOTED TO HAVE SOME MODERATE SWELLING WHICH THE PT ALSO STATES SHE HAS NOTICED. SHE DOES CONTINUE TO DENIE ANY PAIN HOWERVER AND THE INCISION SITE APPEARS HEALTHY, CLOSED AND NO BRUISING NOTED. PT NOW SITTING IN HER CHAIR READING A BOOK.
--- NOTE | 2019-04-14 08:56 | NUR ---
DR BALDWIN NOTIFIED OF THE LEFT HIP SWELLING. NEW ORDERS RECEIVED.
--- NOTE | 2019-04-14 09:16 | NUR ---
PT RECIEVING HER ORDERED LEFT HIP 2 VIEW X-RAY AT THIS TIME IN HER ROOM.
--- NOTE | 2019-04-14 09:30 | NUR ---
MDT completed. Pt wanting to dc Thursday. OT and PT discussed she has not met goal of dressing and getting out of bed without assist. Goal for dc is next Thursday.
--- NOTE | 2019-04-14 10:04 | NUR ---
Pt walked in the halls with physical therapy this am and tolerated her walk well. Pt now just assisted to the BR and was steady with her walker. Pt now back to her chair with her call patel within reach and her bed alarm is on.
--- NOTE | 2019-04-14 11:59 | NUR ---
Pt resting in her chair with no complaints and is speaking with her visitor. Call patel in reach and her chair alarm is on.
--- NOTE | 2019-04-14 13:36 | NUR ---
Pt ambulated to the BR then she took a walk in the halls with her walker and a SBA. Pt tolerated the movement well and continues to denie any problems.
--- NOTE | 2019-04-14 14:57 | NUR ---
Pt resting in her chair and is reading a newspaper at this time.
--- NOTE | 2019-04-14 16:13 | NUR ---
Pt working with OT at this time.
--- NOTE | 2019-04-14 16:51 | NUR ---
Pt states she is having neuropathy pain in her feet rated at a 5/10. Pt medicated as ordered. Pt's daughter arrived to the room and is now visiting with the pt.
--- NOTE | 2019-04-14 20:08 | NUR ---
PT CONTINUES ON SWING BED TRANSIONAL CARE STATUS. 1PA/FWW DOES VERY WELL, L SIDED WEAKNESS, EDEMA OF UPPER L HIP AND FEET/ANKLE. NOTED TO HAVE A TRACE OF EDEMA L UPPER INNER EYE-BROW AREA, NON TENDER, NORMAL SKIN LOOKING, MAX ANY INJURY, NO BRUISING NOTED. L HIP OLD ORIF INCISION HEALED, EDGES WELL APPROX PLEASANTLY CONFUSED, EASILY REORIENTED. TOOK MEDS W/O PROBLEMS, TOLERATING DIET VERY WELL, NO C/O N/V, NO C/O PAIN, HIGH FALL RISK PRECAUTIONS INPLACE. CALL LIGHT AT BEDSIDE
--- NOTE | 2019-04-14 22:46 | NUR ---
resting, no distress, call light at bedside
--- NOTE | 2019-04-15 01:48 | NUR ---
Up to br, voided, back to bed, tolerated well, slight gait impairment in L leg noted at this time, compard to earlier, edema L upper hip by incision area prsent. no c/o pain or dicomft, incision edges well approx, pink, closed, dry. 1PA and fww.
--- NOTE | 2019-04-15 04:34 | NUR ---
resting, eyes closed, no distress, on room air, fall risk precautions in place, Continues on transition care status, call light and fluids at bedside
--- NOTE | 2019-04-15 05:17 | NUR ---
PT CONTINUES ON TRANSITION CARE/SWING BED STATUS. COOPERATIVE WITH POC. 1PA/FWW TO GET UP, IMPROVED GAIT, L HIP INCISION HEALING, EDEMA UPPER L HIP INCION ARE TOWARDS BUTTOCKS, AREA SOFT, MOVABLE, NON TENDER. HAS SLEPT MOST OF THIS SHIFT, HAS DENIED C/O PAIN. TOLERATING DIET AND LIQUIDS WELL. SLOW RESPONSE, PLEASANTLY CONFUSED, FOLLOWS INSTRUCTIONS WELL. ON ROOM AIR, IS AT BEDSIDE
--- NOTE | 2019-04-15 05:53 | NUR ---
c/o 5/10 L hip/leg and h/a pain. Up to br tolerated fair coming back to bed, with increased c/opain. L hip edematous area no changes, noted to have edema up to knee area, soft, non tender to assessment, on;y with walking. Will notify . Pt cooperative with assessment
--- NOTE | 2019-04-15 07:18 | NUR ---
0655: Bedside report received from Shirley ROSENBAUM. Pt resting in bed with her call patel within reach and she denies any problems.
--- NOTE | 2019-04-15 08:20 | NUR ---
PT EATING HER BREAKFAST AT THIS TIME WITH NO COMPLAINTS. HER LEFT HIP REMAINS SWOLLEN WITH NO SIGNS OF INFECTION, HEMATOMA, CIRCULATION PROBLMES, PAIN OR ANY OTHER RELATED PROBLEMS. THE LEFT LEG HAS +2 EDEMA AND +1 ON THE RIGHT. CALL JACOBS[facility] WITHIN REACH.
--- NOTE | 2019-04-15 08:52 | NUR ---
AFTER PATIENT WAS DONE WITH BREAKFAST I GOT THE SHOWER STUFF SET UP AND NOW SHE IS IN TAKING A SHOWER. CHANGED THE BED LINENS. GOT HER SOME MORE ICE WATER.
--- NOTE | 2019-04-15 10:41 | NUR ---
PT SITTING UP IN HER CHAIR AND IS VISITING WITH HER DAUGHTER. SHE DENIES ANY PAIN OR SOB OR ANY OTHER PROBLEMS. CALL JACOBSON IS WITHIN REACH.
--- NOTE | 2019-04-15 11:04 | NUR ---
PT WALKING IN THE HALLS WITH THERAPY AT THIS TIME.
--- NOTE | 2019-04-15 11:36 | NUR ---
PT READING A NEWSPAPER AT THIS TIME.
--- NOTE | 2019-04-15 13:12 | NUR ---
PT UP AMBULATING IN [place] WITH P.T. SHE IS CHEERY AND SEEMS TO BE ENJOYING HER WALK-ESPECIALLY WITHOUT PAIN. GAVE ENCOURAGEMENT, WILL FOLLOW NEEDED
--- NOTE | 2019-04-15 13:31 | NUR ---
Pt denies any pain or problems. Physical therapy now to the pt's room to work with her.
--- NOTE | 2019-04-15 14:17 | NUR ---
Pt alert and oriented to person, place and time. She denies any pain or problems, call patel within reach.
--- NOTE | 2019-04-15 14:19 | NUR ---
Ice bag in place to the left hip area that has the swelling.
--- NOTE | 2019-04-15 15:23 | NUR ---
Has been walking in [place] today. States she is feeling great.
--- NOTE | 2019-04-15 16:15 | NUR ---
PT WATCHING TV AND HAS NO COMPLAINTS OF PAIN OR OTHER PROBLEMS.
--- NOTE | 2019-04-15 17:56 | NUR ---
PT SLEEPING AT THIS TIME.
--- NOTE | 2019-04-16 00:37 | NUR ---
PATIENT RESTING, EYES CLOSED. APPEARS TO BE NO NEEDS AT THIS TIME.
--- NOTE | 2019-04-16 03:23 | NUR ---
pt recently ambulated to bathroom to void. reporting 5/10 pain to left knee and hip. primary rn elin made aware. prn tylenol administered by this rn. no further needs, call light in reach.
--- NOTE | 2019-04-16 04:51 | NUR ---
PATIENT UP TO BATHROOM. AMBULATED 3 LOOPS IN [place], BACK TO ROOM. PROVIDED COFFEE. PATIENT COMPLAINING OF KNEE HURTING, PROVIDED WARM PACK.
--- NOTE | 2019-04-16 09:52 | NUR ---
PATIENT WAS U IN CHAIR, PATIENTS VITAL SIGNS AND INTAKE AND OUTPUT ARE DONE, SHE REQUESTED TO BE MOVED OVER TO THE BED, SHE USED HER WALKER AND DID A GREAT JOB, NOTHING ELSE TO REPORT AT THIS TIME
--- NOTE | 2019-04-16 10:22 | NUR ---
PT REPORTS SHE IS DOING WELL TODAY. PT PLEASANTLY CONFUSED. PT DENIES PAIN. NO NEEDS AT THIS TIME. CALL LIGHT WITHIN REACH.
--- NOTE | 2019-04-16 11:51 | NUR ---
PATIENT UP TO BATHROOM AT THIS TIME. RN IN ROOM.
--- NOTE | 2019-04-16 13:56 | NUR ---
PATIENT RESTING IN BED AT THIS TIME, CALL LIGHT IN REACH. NO OTHER NEEDS AT THIS TIME.
--- NOTE | 2019-04-16 14:07 | NUR ---
PT CALL LIGHT ON. 1PA FWW UP TO BATHROOM. PT VOIDS 200ML WITHOUT ISSUE. 1PA, FWW BACK TO BED. PT COMPLAINS OF DRY EYES. SALINE FISH PROVIDED FOR EYE DROPS. NO ADDITIONAL REQUESTS OR COMPLAINTS AT THIS TIME. CALL LIGHT WITHIN REACH.
--- NOTE | 2019-04-16 15:59 | NUR ---
PT SITTIN UP IN CHAIR AT THIS TIME, A&OX3. PT DENIES PAIN. PERSONAL SUPPLIES AND CALL LIGHT WITHIN REACH.
--- NOTE | 2019-04-16 17:07 | NUR ---
IN TO SEE PT. PT AWAKE, SITTING UP IN CHAIR READING THE PAPER. PT DENIES PAIN AND NEEDS AT THIS TIME. PT ENCOURAGED TO CALL STAFF IF SHE IS IN NEED OF ANYTHING.
--- NOTE | 2019-04-16 18:33 | NUR ---
PATIENT USING BATHROOM. DAUGHTER AND RN IN ROOM. PATIENT BACKS TO BED. I&O DONE. CALL LIGHT WITHIN REACH. NO OTHER NEEDS AT THIS TIME
--- NOTE | 2019-04-16 20:03 | NUR ---
RECEIVED REPORT FROM DAY SHIFT RN. PATIENT IS RESTING IN BED. PATIENT DENIES ANY PAIN OR NEEDS. CALL LIGHT IN REACH.
--- NOTE | 2019-04-16 21:10 | NUR ---
PATIENT ASSESMENT COMPLETED. PATIENTS EVENING MEDICATIONS GIVEN PER ORDER. PATIENT DENIES ANY PAIN. PATIENTS SURGICAL SITE ON LEFT POSTERIOR HIP IS C/D/I, OPEN TO AIR AND WELL APPROXIMATED. PATIENT ASSISTED TO THE RESTROOM A SBA W/FWW. PATIENT WAS ABLE TO VOID. PATIENT PROVIDED WITH FRESH PAD. SEPTEMBER DIRECTOR OF PHYSICIAN PRACTICES IN ROOM TO TAKE VITALS. PATIENT DENIES ANY FURTHER NEEDS. CALL LIGHT IN REACH.
--- NOTE | 2019-04-16 21:10 | NUR ---
VITALS AND I&os done and charted. HELPED PT BACK FROM THE BATHROOM WITH HER FWW. FRESH WATER GIVEN. BEDSIDE TABLE AND CALL LIGHT IN REACH.
--- NOTE | 2019-04-16 23:24 | NUR ---
PATIENT IS RESTING IN BED WITH EYES CLOSED, RR 16. CALL LIGHT IN REACH.
--- NOTE | 2019-04-17 01:48 | NUR ---
PATIENT IS RESTING IN BED WITH EYES CLOSED, RR 17. CALL LIGHT IN REACH.
--- NOTE | 2019-04-17 03:45 | NUR ---
PATIENT IS RESTING IN BED WITH EYES CLOSED, RR 16. CALL LIGHT IN REACH.
--- NOTE | 2019-04-17 04:52 | NUR ---
PATIENT RESTED WELL THROUGHOUT THE SHIFT. PATIENT IS ON A REGULAR DIET. PATIENT IS SWING BED WORKING WITH PT/OT. PATIENT IS A SBA W/FWW. PATIENT HOWEVER, DOES REQUIRE ASSISTANCE TO GET OUT OF BED. PATIENT IS ON RA. PATIENT HAS SURGICAL SITE ON LEFT POSTERIOR HIP IT IS C/D/I, WELL APPORXIMATED AND OPEN TO AIR. PATIENT IS FORGETFUL AT TIMES. PATIENT USES CALL LIG APPROPRIATELY.
--- NOTE | 2019-04-17 05:26 | NUR ---
PATIENT IS RESTING IN BED. PATIENT AWOKE MOMENTARILY WHEN ROOM WAS ENTERED. NO NEEDS NOTED. INTAKE AND OUTPUT RECORDED. CALL LIGHT IN REACH.
--- NOTE | 2019-04-17 06:06 | NUR ---
HELPED PT TO THE BATHROOM AND BACK TO BED WITH HER FWW. BEDSIDE TABLE AND CALL LIGHT IN REACH.
--- NOTE | 2019-04-17 06:19 | NUR ---
MORNING MEDICATIONS GIVEN PER ORDER. PATIENT DENIES ANY PAIN. NO NEEDS NOTED. CALL LIGHT IN REACH.
--- NOTE | 2019-04-17 07:43 | NUR ---
PT AWAKE, A&OX3. PT IS ON RA, RESPIRATIONS ARE EVEN AND NON LABORED. PT DENIES PAIN AT THIS TIME. PERSONAL SUPPLIES AND CALL LIGHT WITHIN REACH.
--- NOTE | 2019-04-17 08:32 | NUR ---
PATIENT USED RESTROOM, SBA
--- NOTE | 2019-04-17 14:03 | NUR ---
ADMIN TYLENOL 650MG PO FOR REPORTS OF 3/10 LEFT HIP PAIN.
--- NOTE | 2019-04-17 19:10 | NUR ---
PT RESTING IN BED, READING A BOOK. SHIFT REPORT RECIEVED FROM JOSE ROSENBAUM. NO NEEDS AT THIS TIME. CALL LIGHT IN REACH.
--- NOTE | 2019-04-17 20:09 | NUR ---
VITALS AND I&OS DONE AND CHARTED. HELPED PT FROM THE BATHROOM BACK TO BED WITH HER FWW. FRESH WATER GIVEN. BEDSIDE TABLE AND CALL LIGHT IN REACH
--- NOTE | 2019-04-17 21:36 | NUR ---
ROUNDED CHARGE. PATIENT IS RESTING IN BED. PATIENT DENIES ANY NEEDS. CALL LIGHT IN REACH.
--- NOTE | 2019-04-17 21:45 | NUR ---
PT RESTING IN BED, WATCHING TV. SCHEDULED MEDS PROVIDED. ASSESSMENT COMPLETED. ICE WATER PROVIDED. HEEL PROTECTORS ON. NO OTHER NEEDS AT THIS TIME. CALL [facility] IN REACH.
--- NOTE | 2019-04-17 23:44 | NUR ---
PT RESTING IN BED, EYES CLOSED. RR 16, EVEN, UNLABORED. CALL LIGHT IN REACH.
--- NOTE | 2019-04-18 01:00 | NUR ---
PT RESTING IN BED, EYES CLOSED. RR 16, EVEN, UNLABORED. CALL LIGHT IN REACH.
--- NOTE | 2019-04-18 03:05 | NUR ---
PT RESTING IN BED, EYES CLOSED. RR 14, EVEN, UNLABORED. CALL LIGHT IN REACH.
--- NOTE | 2019-04-18 05:12 | NUR ---
HELPED PT TO THE BATHROOM AND BACK TO BED. BEDSIDE TABLE AND CALL LIGHT IN REACH. I&OS DONE AND CHARTED. EMPTIED GARBAGES AND CLEANED UP ROOM. PT NEEDS NOTHING MORE AT THIS TIME.
--- NOTE | 2019-04-18 05:39 | NUR ---
PT AWAKE IN ROOM. SCHEDULED MED PROVIDED. NO OTHER NEEDS AT THIS TIME. CALL LIGHT IN REACH.
--- NOTE | 2019-04-18 05:58 | NUR ---
PT HAS SLEPT WELL THIS SHIFT. PT DENIED PAIN, TOLERATED TRANSFERS WELL. TOLERATED DIET WELL. VSS, A&O X4.
--- NOTE | 2019-04-18 06:55 | NUR ---
RECEIVED REPORT FROM ROBI GIRON. pt AWOKE AND UP TO CHAIR, MARLON FWW. CALL LIGHT WITHIN REACH. NO REQUESTS AT THIS TIME. WHITEBOARD UPDATED.
--- NOTE | 2019-04-18 08:02 | NUR ---
PATIENT GIVEN WEEKEND AND MORNING NEWSPAPER. PATIENT SITTING UP IN BEDSIDE RECLINER READING. CALL LIGHT IN REACH. NO OTHER NEEDS AT THIS TIME.
--- NOTE | 2019-04-18 08:25 | NUR ---
pt SITTING UP IN CHAIR, LEGS ELEVATED. ASSESSMENT DONE. DENIES PAIN AT THIS TIME. MEDICATIONS GIVEN (SEE MAR). FRESH WATER PROVIDED. VITALS RECORDED. NO REQUESTS AT THIS TIME. CALL LIGHT WITHIN REACH.
--- NOTE | 2019-04-18 10:00 | NUR ---
Notified in report pt is really wanting to go home today. Spoke with PT and OT is working towards her goals, but they are concerned for her to dc to home alone. Called the daughter and she plans on staying with her mom for a few days, will order PT/OT at home.
--- NOTE | 2019-04-18 11:39 | NUR ---
PT UP WITH Dequan TOLENTINO, WORKING HARD AT GETTING BETTER AND ATTAINING HER GOALS. PT IS VERY PLEASANT, GRATEFUL FOR THE CARE SHE IS RECEIVING, ALWAYS POSITIVE AND HONEST. GAVE ENCOURAGEMENT, EXTENDED A BLESSISNG. WILL FOLLOW NEEDED
--- NOTE | 2019-04-18 11:43 | NUR ---
ROUNDED ON pt. REPORTED 7/10 PAIN POST PHYSICAL THERAPY. PRN PAIN MEDS GIVEN (SEE MAR). WATER PROVIDED. pt SITTING IN CHAIR NO FURTHER REQUESTS AT THIS TIME. CALL LIGHT WITHIN REACH.
--- NOTE | 2019-04-18 11:50 | NUR ---
SPOKE WITH PATIENT IN ROOM. DISCUSSED PLANNED DISCHARGE FOR TOMORROW. PATIENT STATES "OH I THOUGHT I'D BE GOING HOME TODAY". DISCUSSED THAT WE ARE PLANNING TOMORROW AND THEN WE WILL SET UP HOME HEALTH TO CONTINUE PT, OT AT HOME. DISCUSSED THAT THERE IS ONLY ONE HOME HEALTH AT THIS TIME WHO DOES PT/OT AND THAT IS [facility] FROM [place]. SHE IS AGREEABLE TO THIS. WE DISCUSSED HER STAY ON TRANSITIONAL CARE. SHE STATES SHE REALLY ENJOYED EVERYONE AND FEELS SO MUCH BETTER ABOUT GOING HOME NOW. QUESTIONS ANSWERED.
--- NOTE | 2019-04-18 13:14 | NUR ---
ROUNDED ON pt. ANYI LINDER IN ROOM ASSISTING WITH CARES. pt DENIED PAIN AT THIS TIME. NO REQUESTS.
--- NOTE | 2019-04-18 15:51 | NUR ---
Current plan is for pt. to dc to home tomorrow as planned. Daughter will stay with her for a few days, will order HH therapy.
--- NOTE | 2019-04-18 15:52 | NUR ---
pt UP AND WALKING WITH VISITOR IN [place], STEADY ON FEET SBA FWW.
--- NOTE | 2019-04-18 16:05 | NUR ---
SCHEDULED MED GIVEN (SEE MAR). pt WORKING WITH PT.
--- NOTE | 2019-04-18 17:11 | NUR ---
SCHEDULED MED GIVEN WITH PUDDING AND CRACKERS (SEE MAR). ORDERED DINNER FOR pt PER REQUEST. NO FURTHER REQUESTS AT THIS TIME. CALL LIGHT WITHIN REACH.
--- NOTE | 2019-04-18 17:51 | NUR ---
pt AMBULATED MULTIPLE TIMES TODAY. WORKED WITH PT. ENTERTAINED VISITORS. SBA FWW. NO IV. PLAN TO DISCHARGE TOMORROW.
--- NOTE | 2019-04-18 19:46 | NUR ---
SHIFT REPORT RECIEVED FROM SOL ROSENBAUM. PT AWAKE IN ROOM, WATCHING TV. NO NEEDS AT THIS TIME. CALL LIGHT IN REACH.
--- NOTE | 2019-04-18 20:47 | NUR ---
CALL LIGHT ANSWERED. pt C/O 11/22 PAIN, "NEUROPATHY" IN BLE. PRN PAIN MEDICATION ADMINISTERED. CALL LIGHT IN REACH. ICE WATER PROVIDED.
--- NOTE | 2019-04-18 22:30 | NUR ---
PT RESTING IN BED, EYES CLOSED. RR16, EVEN, UNLABORED. CALL LIGTH IN REACH.
--- NOTE | 2019-04-19 00:17 | NUR ---
PT RESTING IN BED, EYES CLOSED. RR 12, EVEN, UNLABORED. CALL LIGHT IN REACH.
--- NOTE | 2019-04-19 01:56 | NUR ---
PT RESTING WITH EYES CLOSED.RR 12, EVEN, UNLABORED. CALL LIGHT IN REACH.
--- NOTE | 2019-04-19 04:00 | NUR ---
PT RESTING IN BED, EYES CLOSED. RR 14, EVEN, UNLABORED. CALL LIGHT IN REACH.
--- NOTE | 2019-04-19 06:47 | NUR ---
PT RESTING IN ROOM WAKES TO VOICE. UP TO BR. ASSESSMENT, VS AND I&O COMPLETED. PT DENIES PAIN. LEFT HIP HAS SLIGHT EDEMA, HEALING WNL. COFFEE PROVIDED. NO OTHER NEEDS. CALL LIGHT IN REACH.
--- NOTE | 2019-04-19 06:51 | NUR ---
PT SLEPT MOST OF THE SHIFT. PT HAS NOT REPORTED HIP PAIN THIS SHIFT. PT TOLERATED AMBULATION WELL. VSS. A & O X3. UO SUFFICIENT.
--- NOTE | 2019-04-19 07:20 | NUR ---
REPORT RECIEVED FROM ROBI GIRON AND YAHAIRA. PT SITTING UP IN CHAIR AFTER GOING TO RESTROOM. VERY EXCITED TO BE GOING HOME TODAY. CANT HARDLY SIT STILL.
--- NOTE | 2019-04-19 08:56 | NUR ---
PT QUITE THE [facility] THIS MORNING. SO HAPPY TO GO HOME. UP TO RESTROOM TWICE FOR HU[place]ON, HELD COLACE. HR IRREGULAR, ADMINISTERED MEDS.
[2019-04-19] MEDS ORDERED: XARELTO10 MG PO (10:17)
--- NOTE | 2019-04-19 11:07 | NUR ---
Chart sent by secure email to [facility] for cont. HH at pt's home. Face sheet H&P Progress notes DC summary PT eval and notes OT eval and notes
--- NOTE | 2019-04-19 11:10 | NUR ---
ASSISTED PT UP TO RESTROOM WITH FWW. TURNED PT CHAIR TO FACE THE WINDOW SO SHE COULD "WATCH THE CARS". CALL LIGHT IN REACH.
--- NOTE | 2019-04-19 13:50 | NUR ---
PT DISCHARGED HOME WITH DAUGHTER. VS STABLE. QUESTIONS ANSWERED. BELONGINGS SENT WITH PT. MEDS GONE OVER WITH DAUGHTER. WHEELED TO FRONT.
== END 2019-04-19 11:50 | disposition home health service (06) | DRG 559 ==
LOC: MS 09:40
PROVIDERS: ADMIT Internal Medicine
DX: S72.002D Fracture of unspecified part of neck of left femur, subsequent encounter for closed fracture with routine healing (principal); I26.99 Other pulmonary embolism without acute cor pulmonale; E11.42 Type 2 diabetes mellitus with diabetic polyneuropathy; I35.0 Nonrheumatic aortic (valve) stenosis; M51.36 Other intervertebral disc degeneration, lumbar region; N39.3 Stress incontinence (female) (male); M43.16 Spondylolisthesis, lumbar region; D64.9 Anemia, unspecified; K21.9 Gastro-esophageal reflux disease without esophagitis; I10 Essential (primary) hypertension; E03.9 Hypothyroidism, unspecified; Z98.890 Other specified postprocedural states; Z79.01 Long term (current) use of anticoagulants; Z79.891 Long term (current) use of opiate analgesic; Z79.899 Other long term (current) drug therapy; Z88.1 Allergy status to other antibiotic agents; Z88.0 Allergy status to penicillin; Z88.2 Allergy status to sulfonamides; Z88.8 Allergy status to other drugs, medicaments and biological substances
CPT/HCPCS: 73502; 97110; 97112; 97116; 97162; 97166; 97530; 97535

== ENCOUNTER 2019-05-02 10:20 | Emergency (ER) | payer MEDICARE, MEDICAID ==
[~2019-05-02] VITALS: Ht 167.6 cm; Wt 72.6 kg
--- OUTSIDE RECORDS SUMMARY | ~2019-05-02 | XMS | Encounter Summary ---
Demographics + + + | Address | [address] | | | [place] [address] | + + + | Home Phone | | + + + | Preferred Language | Unknown | + + + | Marital Status | | + + + | Gnosticist Affiliation | 1077 | + + + | Race | Unknown | + + + | Ethnic Group | Unknown | + + + Author + + + | Author | [facility] | | | and [place] | + + + | Organization | [facility] | | | and [place] | + + + | Address | Unknown | + + + | Phone | Unavailable | + + + Support + + +---------+ + | Name | Relationship | Address | Phone | + + +---------+ + | Chrissie Leos | ECON | Unknown | | + + +---------+ + Care Team Providers + +------+ + | Care Shearer Helper Name | Role | Phone | + +------+ + | Susan Leos | PCP | | | PA-C | | | + +------+ + Reason for Visit + + + | Reason | Comments | + + + | Injections | | + + + Encounter Details +--------+ + + + + | Date | Type | Department | Care Team | Description | +--------+ + + + + | 02/13/ | Telephone | [facility] | Ray, | Injections | | 2015 | | PHYSIATRY [address] | [address] | | | | | [place], | [place], | | | | | [place] [address] | [place] [address] | | | | | [phone] | [phone] | | | | | | | | +--------+ + + + + Social History + +-------+ +--------+------+ [...] + +---------+ + | Alcohol Use | Drinks/Week | oz/Week | Comments | + + +---------+ + | Yes | 0 Standard drinks | 0.0 | RARE | | | or equivalent | | | + + +---------+ + + + + | Sex Assigned at | Date Recorded | | | | + + + | Not on file | | + + + + + + + | Job Start Date | Occupation | Industry | + + + + | Not on file | Not on file | Not on file | + + + + + + + + | Travel History | Travel Start | Travel End | + + + + + + | No recent travel history available. | + + documented as of this encounter Plan of Treatment +--------+---------+ + + + | Date | Type | Specialty | Care Team | Description | +--------+---------+ + + + | 05/16/ | Office | Orthopedic Surgery | Mark [place] | | | 2019 | Visit | | MD Alaina [address] | | | | | | [place] | | | | | | [place] [address] | | | | | | [phone] | | | | | | | | +--------+---------+ + + + | 06/30/ | Office | Cardiology | Smitha Griffin DO | | | 2019 | Visit | | [address] | | | | | | [place] | | | | | | [address] | | | | | | | | +--------+---------+ + + + documented as of this encounter Visit Diagnoses Not on filedocumented in this encounter"
--- OUTSIDE RECORDS SUMMARY | ~2019-05-02 | XMS | Encounter Summary ---
Demographics + + + | Address | [address] | | | [place] [address] | + + + | Home Phone | | + + + | Preferred Language | Unknown | + + + | Marital Status | | + + + | Mormon Affiliation | 1077 | + + + | Race | Unknown | + + + | Ethnic Group | Unknown | + + + Author + + + | Author | [facility] | | | and [place] | + + + | Organization | [facility] | | | and [place] | [...] Team Providers + +------+ + | Care Physician Executive Name | Role | Phone | + +------+ + | Susan Leos | PCP | | | PA-C | | | + +------+ + Reason for Visit + + + | Reason | Comments | + + + | Hip Pain | left hip pain | + + + Evaluate & Treat (Urgent) + +--------+ + + + + | Status | Reason | Specialty | Diagnoses / | Referred By | Referred To | | | | | Procedures | Contact | Contact | + +--------+ + + + + | Authorized | | Orthopedic | Diagnoses | Jordan, | Nan, | | | | Surgery | Urgent JOJO | Harry Palafox MD | Mark Foley MD | | | | | from | [address] | [address] | | | | | [place] at | [address] | [address] | | | | | [facility] | [place], | [place], [place] | | | | | Procedures | [place] | [address] Phone: | | | | | NEW PATIENT | [address] | [phone] | | | | | | Phone: | Fax: | | | | | | [phone] | [phone] | | | | | | Fax: | | | | | | | [phone] | | + +--------+ + + + + Encounter Details +--------+---------+ + + + | Date | Type | Department | Care Team | Description | +--------+---------+ + + + | 09/30/ | Office | [facility] | Mark [place] | 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[place], [place]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 (Primary | | | | [address] | [place] [address] | Dx) | | | | [phone] | [phone] | | | | | | | [...] + + + | Blood Pressure | 180/72 | 03/14/2019 3:31 PM | | | | | PDT | | + + + + + | Pulse | 57 | 03/14/2019 3:31 PM | | | | | PDT | | + + + + + | Temperature | - | - | | + + + + + | Respiratory Rate | 16 | 03/14/2019 3:31 PM | | | | | PDT | | + + + + + | Oxygen Saturation | 99% | 03/14/2019 3:31 PM | | | | | PDT | | + + + + + | Inhaled Oxygen | - | - | | | Concentration | | | | + + + + + | Weight | 75.2 kg (165 lb 12.8 | 03/14/2019 3:31 PM | | | | oz) | PDT | | + + + + + | Height | 167.6 cm (5' 6") | 03/14/2019 3:31 PM | | | | | PDT | | + + + + + | Body Mass Index | 26.76 | 03/14/2019 3:31 PM | | | | | PDT | | + + + + + documented in this encounter Progress Notes Mark [place] MD - 03/14/2019 3:30 PM PDT 03/14/2019 Chief Complaint Chief Complaint Patient presents with Hip Pain left hip pain HPI HPI An 83-year-old female presents with left groin pain. This has been ongoing and progressive for the last few years. This all began with a femoral neck fracture which was treated by Dr. Ortega with percutaneous screw fixation. Initially, she recovered well, but began having gr oin pain and progressive pain that has become disabling and eventually had the femoral head collapse. She has significant pain that radiates into thigh. She also has significant groin pain as well as crepitus. This is disabling to her. She reports that she has to use a cane o r a walker. Pain interferes with all activities of daily life. She denies radiating leg pain or numbness or tingling in the feet. Vital Signs Vitals: 03/14/19 1531 BP: 180/72 Pulse: 57 Resp: 16 PainSc: 5 PainLoc: Hip Past Medical History: Diagnosis Date Aortic stenosis Bilateral lumbar radiculopathy 02/04/2016 Cholelithiasis with cholecystitis DDD (degenerative disc disease), lumbar 02/04/2016 Full dentures upper & lower GERD (gastroesophageal reflux disease) HTN (hypertension) Hyperlipidemia Hypothyroidism Macular degeneration Other intervertebral disc displacement, lumbar region Peripheral neuropathy Skin cancer Spondylolisthesis at L4-L5 level 02/04/2016 Stress incontinence in female Type 2 diabetes mellitus (HCC) Past Surgical History: Procedure Laterality Date CHOLECYSTECTOMY COLONOSCOPY 2003; 2009; 2011 polyp's removed CYSTOCELE REPAIR 1971 ERCP N/A 09/26/2016 Procedure: ERCP; Surgeon: Gregor Mccord MD; Location: [facility] MEDICAL PROCEDURE UNIT ERCP N/A 10/14/2016 Procedure: ERCP w/ stent pull; Surgeon: Gregor Mccord MD; Location: [facility]ICAL PROCEDU RE UNIT PARTIAL HYSTERECTOMY 1971 RECTOCELE REPAIR 1991 TAILBONE 1973 broken, partial removal TONSILLECTOMY 1938 Social History Tobacco Use Smoking status: Never Smoker Smokeless tobacco: Never Used Substance Use Topics Alcohol use: Yes Alcohol/week: 0.0 oz Comment: once every 2 months Drug use: No Family History Problem Relation Age of Onset Heart disease Brother Osteoporosis Mother Stroke Mother 95 Early Father TB Tuberculosis Father Early Brother 21 MVA Cancer Brother SKIN Heart disease Brother Muscle disease Daughter guillain barre syndrome No known problems Paternal Grandfather No known problems Paternal Grandmother No known problems Maternal Grandfather Stroke Maternal Grandmother No known problems Paternal Aunt Stroke Maternal Uncle 91 Stroke Maternal Uncle 96 Heart disease Maternal Uncle Diabetes Brother Current Medications Current Outpatient Medications: ASPIRIN 81 PO, Take by mouth., Disp: , Rfl: atenolol (TENORMIN) 25 mg tablet, Take 25 mg by mouth Daily., Disp: , Rfl: Calcium Carb-Cholecalciferol (CALCIUM 500 + D3 PO), Take 1 tablet by mouth 2 times vernon ly., Disp: , Rfl: Cetirizine HCl (ALLERGY RELIEF) 10 MG liqui-gel, Take 10 mg by mouth Daily., Disp: , R fl: CVS TRIPLE MAGNESIUM COMPLEX PO, Take by mouth., Disp: , Rfl: docusate sodium (COLACE) 100 mg capsule, Take 100 mg by mouth Twice daily as needed., Disp: , Rfl: gabapentin (NEURONTIN) 300 mg capsule, Take 300 mg by mouth 3 times daily., Disp: , Rf l: Garlic 1000 MG CAPS, Take 1 tablet by mouth Daily., Disp: , Rfl: HYDROcodone-acetaminophen (NORCO) 5-325 mg per tablet, Take 1 tablet by mouth every 6 hours as needed for Pain., Disp: , Rfl: levothyroxine (SYNTHROID, LEVOTHROID) 100 mcg tablet, Take 100 mcg by mouth every morn ing (before breakfast)., Disp: , Rfl: losartan (COZAAR) 50 mg tablet, Take 50 mg by mouth Daily., Disp: , Rfl: Multiple Vitamin (THERAGRAN PO), Take 1 tablet by mouth Daily., Disp: , Rfl: Multiple Vitamins-Minerals ([facility]) MISC, Take by mouth., Disp: , Rfl: [place]-3 Fatty Acids (PRO NUTRIENTS OMEGA 3 PO), Take 1 tablet by mouth Daily., Disp: , Rfl: omeprazole (PRILOSEC) 20 mg capsule, Take 20 mg by mouth every morning (before )., Disp: , Rfl: ondansetron (ZOFRAN ODT) 4 mg disintegrating tablet, Take 4 mg by mouth every 8 hours as needed., Disp: , Rfl: POTASSIUM CITRATE PO, Take by mouth., Disp: , Rfl: PROVENTIL HFA 108 (90 Base) MCG/ACT inhaler, Inhale 1 puff into the lungs every 4 hour s as needed., Disp: , Rfl: Psyllium (METAMUCIL PO), Take by mouth Daily., Disp: , Rfl: Allergies Allergies Allergen Reactions Erythromycin Hives and Rash Levofloxacin Hives and Rash Penicillins Hives and Rash Sulfa Antibiotics Hives and Rash Verapamil Hcl Er Hives and Rash Family History family history includes Cancer in her brother; Diabetes in her brother; Early in her father; Early (age of onset: 21) in her brother; Heart disease in her brother, brother , and maternal uncle; Muscle disease in her daughter; No known problems in her maternal gran dfather, paternal aunt, paternal grandfather, and paternal grandmother; Osteoporosis in her mother; Stroke in her maternal grandmother; Stroke (age of onset: 91) in her maternal uncle; Stroke (age of onset: 95) in her mother; Stroke (age of onset: 96) in her maternal uncle; T uberculosis in her father. Social History Social History Tobacco Use Smoking status: Never Smoker Smokeless tobacco: Never Used Substance Use Topics Alcohol use: Yes Alcohol/week: 0.0 oz Comment: once every 2 months Drug use: No Active comorbid conditions include: - hypertension - endocrine problem - diabetes; type 2 - hypothyroidism - GERD ROS Review of Systems Constitutional: Negative for chills and fever. HENT: Positive for hearing loss. Negative for ear pain. Eyes: Negative for blurred vision and double vision. Respiratory: Negative for cough and wheezing. Cardiovascular: Negative for chest pain and palpitations. Gastrointestinal: Negative for heartburn, nausea and vomiting. Genitourinary: Negative. Musculoskeletal: Positive for joint pain. Negative for back pain and neck pain. Skin: Negative for itching and rash. Neurological: Negative for dizziness and headaches. Endo/Heme/Allergies: Bruises/bleeds easily. Psychiatric/Behavioral: The patient has insomnia. The patient is not nervous/anxious. Physical Exam Ortho Exam Left Hip Exam Well-healed lateral surgical incision. Range of Motion: Flexion: 90 and with increased pain. Internal Rotation: 5. External Rotation: 5 degrees with pain and crepitus with motion. Increased pain in the groi n with motion. Muscle Strength: She has 5/5 hip abductor strength and 5/5 hip flexor strength, although co mplete exam is limited by pain. Physical Exam Vital signs reviewed. GENERAL: well developed and well nourished. HEAD: normocephalic and atraumatic. EYES: PERRL. RESPIRATORY: effort normal. GI: soft. SKIN: Capillary refill less then 2 seconds. NEUROLOGICAL: alert and oriented x 3. PSYCHIATRIC: normal mood and normal affect. IMAGING: No results found for this or any previous visit (from the past 72 hour(s)). Assessment and Plan ICD-10-CM ICD-9-CM 1. 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 T giuseppe risks and benefits of total hip arthroplasty were discussed with the patient. She would l jackson to proceed with a left posterior total hip arthroplasty this month. She was previously o n the schedule with Dr. rOtega, but because of insurance issues, she was unable to be perfor med. She has clearance from her medical providers as well. Documented by Rick. Return for Pre-op Appointment. No notes on file Mark [place] MD documented in this encounter Plan of Treatment +--------+---------+ + + + | Date | Type | Specialty | Care Team | Description | +--------+---------+ + + + | 05/16/ | Office | Orthopedic Surgery | Mark [place] | | | 2018 | Visit | | MD Alaina [address] | | | | | | [place] | | | | | | [place] [address] | | | | | | [phone] | | | | | | | | +--------+---------+ + + + | 06/30/ | Office | Cardiology | Smitha Griffin DO | | | 2019 | Visit | | [address] | | | | | | [place] | | | | | | [id number] | | | | | | | | +--------+---------+ + + + documented as of this encounter Results XR Hip Left 2-3 Views (03/14/2019 3:48 PM PDT) + + | Specimen | + + | | + + + + + | Narrative | Performed At | + + + | Radiographs of | [facility] | | an AP pelvis and lateral of the left hip shows severe posttraumatic | | | osteoarthritis indicated by previous 3 cannulated screws within the | | | femoral neck, collapse of the femoral head with joint space loss and | | | osteophyte formation there is shortening of the left hip when compared | | | to the right. Electronically signed by: Mark [place] MD | | | 03/29/2019 15:09 | | | | | + + + + +---------+ + + | Performing | Address | City/State/Zipcode | Phone Number | | Organization | | | | + +---------+ + + | [facility] | | | | + +---------+ + + documented in this encounter Visit Diagnoses + + | Diagnosis | + + | 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
--- OUTSIDE RECORDS SUMMARY | ~2019-05-02 | XMS | Encounter Summary ---
Demographics + + + | Address | [address] | | | [place] [address] | + + + | Home Phone | | + + + | Preferred Language | Unknown | + + + | Marital Status | | + + + | Mandaeism Affiliation | 1077 | + + + | Race | Unknown | + + + | Ethnic Group | Unknown | + + + Author + + + | Author | [facility] | | | and [place] | + + + | Organization | [facility] | | | and [place] | [...] Team Providers + +------+ + | Care Control Clerk Head Name | Role | Phone | + [...] | | | | | | | [place] ERCP DX | | | | | | | COLLECTION | | | | | | | SPECIMEN | | | | | | | BRUSHING/WAS | | | | | | | [place] ERCP | | | +--------+--------+ + + + + Encounter Details +--------+ + + + + | Date | Type | Department | Care Team | Description | +--------+ + + + + | 09/26/ | Hospital | [facility] | Gregor Mccord MD | | | 2017 | Encounter | MED CTR XRAY [address] | | | | | [place] | [address] | | | | | [place] [address] | [id number] | | | | | [phone] | | | +--------+ + + + [...] | | | | | | | ([facility]) | | | | | | | MISC | | | | | | + + + +---------+ + + | [place]-3 Fatty | Take 1 tablet by | [...] | 2018 | Visit | | MD Paul Foley | | | | | | [address] | | | | | | [place] [address] | | | | | | [phone] | | | | | | | | +--------+---------+ + + + | 06/30/ | Office | Cardiology | Smitha Griffin DO | | | 2019 | Visit | | [address] | | | | | | [place] | | | | | | [address] | | | | | | | [...] + + documented in this encounter Results [place] ERCP (09/26/2016 1:10 PM PDT) + [...]
--- OUTSIDE RECORDS SUMMARY | ~2019-05-02 | XMS | Encounter Summary ---
Demographics + + + | Address | [address] | | | [place] [address] | + + + | Home Phone | | + + + | Preferred Language | Unknown | + + + | Marital Status | | + + + | Taoism Affiliation | 1077 | + + + | Race | Unknown | + + + | Ethnic Group | Unknown | + + + Author + + + | Author | [facility] | | | and [place] | + + + | Organization | [facility] | | | and [place] [...] Team Providers + +------+ + | Care Reordering Clerk Name | Role | Phone | + +------+ + PCP | Unavailable | + +------+ + Encounter Details +--------+ + + + + | Date | Type | Department | Care Team | Description | +--------+ + + + + | 10/20/ | Hospital | [facility] | | | | 1999 | Encounter | MED CTR LABORATORY | | | | | | [address] [place] | | | | | | [place] | | | | | | [address] | | | | | | [phone] | | | +--------+ + + + [...] [address] | | | | | | [facility] [address] | | | | | | [phone] | | | | | | | | +--------+---------+ + + + | 06/30/ | Office | Cardiology | Smitha Griffin DO | | | 2019 | Visit | | [address] | | | | | | [place] | | | | | | [address] | | | | | | | | +--------+---------+ + + + documented as of this encounter Visit Diagnoses Not on filedocumented in this encounter"
--- OUTSIDE RECORDS SUMMARY | ~2019-05-02 | XMS | Encounter Summary ---
Demographics + + + | Address | [address] | | | [place] [address] | + + + | Home Phone | | + + + | Preferred Language | Unknown | + + + | Marital Status | | + + + | Muslim Affiliation | Unknown | + + + | Race | White | + + + | Ethnic Group | Not or | + + + Author + + + | Author | [facility] | + + + | Organization | [facility] | + + + | Address [...] Team Providers + +------+ + | Care Can Washer Name | Role | Phone | + +------+ + PCP | Unavailable | + +------+ + Encounter Details +--------+ + + + + | Date | Type | Department | Care Team | Description | +--------+ + + + + | 11/23/ | Documentati | UNKNOWN DEPARTMENT | Unknown . | | | 2018 | on | [address] | | | | | | [address] | | | | | | [place], [place] | | | | | | [id number] | | | +--------+ + + + [...] Not on filedocumented as of this encounter Visit Diagnoses Not on filedocumented in this encounter"
--- OUTSIDE RECORDS SUMMARY | ~2019-05-02 | XMS | Encounter Summary ---
Demographics + + + | Address | [address] | | | [place] [address] | + + + | Home Phone | | + + + | Preferred Language | Unknown | + + + | Marital Status | | + + + | Zoroastrian Affiliation | 1077 | + + + | Race | Unknown | + + + | Ethnic Group | Unknown | + + + Author + + + | Author | [facility] | | | and Khurramana | + + + | Organization | [facility] | | | and [place] [...] Providers + +------+ + | Care Director Private Name | Role | Phone | + +------+ + | Susan Leos | PCP | | | PADex | | | + +------+ + Reason for Visit Auth/Cert +--------+--------+ + + + + | Status | Reason | Specialty | Diagnoses / | Referred By | Referred To | | | | | Procedures | Contact | Contact | +--------+--------+ + + + + | | | | Diagnoses | | | | | | | Left hip | | | | | | | pain | | | | | | | Procedures | | | | | | | Posterior | | | | | | | Total Hip | | | | | | | Arthroplasty | | | | | | | : Rhett | | | | | | | Components | | | +--------+--------+ + + + + Encounter Details +--------+ + + + + | Date | Type | Department | Care Team | Description | +--------+ + + + + | 03/29/ | Hospital | [facility] | Mark Montana | Left hip pain; | | 2019 - | Encounter | [facility] | MD [address]ain[address] | 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[place], [place] | [place] [address] | left hip | | 2019 | | [address] | [phone] | | | | | [phone] | | | +--------+ + + + [...] + + + | Blood Pressure | 151/69 | 03/31/2019 11:50 AM | | | | | PDT | | + + + + + | Pulse | 71 | 03/31/2019 11:50 AM | | | | | PDT | | + + + + + | Temperature | 36.5 C (97.7 F) | 03/31/2019 11:50 AM | | | | | PDT | | + + + + + | Respiratory Rate | 16 | 03/31/2019 11:50 AM | | | | | PDT | | + + + + + | Oxygen Saturation | 97% | 03/31/2019 11:50 AM | | | | | PDT | | + + + + + | Inhaled Oxygen | - | - | | | Concentration | | | | + + + + + | Weight | 74.5 kg (164 lb 3.9 | 03/29/2019 6:32 AM | | | | oz) | PDT | | + + + + + | Height | 170.2 cm (5' 7") | 03/29/2019 6:32 AM | | | | | PDT | | + + + + + | Body Mass Index | 25.72 | 03/29/2019 6:32 AM | | | | | PDT | | + + + + + documented in this encounter Discharge Summaries Gus Orozco PA-C - 03/31/2019 12:26 PM PDTFormatting of this note might be different fr om the original. 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 female who underwent the above procedure on the day of admission HOSPITAL COURSE: The patient experienced no perioperative complications. They were placed on mechanical and DVT prophylaxis throughout their inpatient stay. Perioperative microbial prophylaxis was adm inistered appropriately. The patient was tolerating a regular diet and voiding without diffi culty, and pain was well controlled prior to discharge. The patient was formally evaluated b y physical and occupational therapy and provided mobility training and post operative care e ducation. They worked well with physical therapy and were prepared for discharge. Past Medical History: Diagnosis Date Aortic stenosis Bilateral lumbar radiculopathy 02/04/2016 Cholelithiasis with cholecystitis DDD (degenerative disc disease), lumbar 02/04/2016 Diabetes type 2, controlled (HCC) Full dentures upper & lower GERD (gastroesophageal reflux disease) HTN (hypertension) Hyperlipidemia Hypothyroidism Macular degeneration Other intervertebral disc displacement, lumbar region Peripheral neuropathy Pneumonia 2004 Skin cancer Spondylolisthesis at L4-L5 level 02/04/2016 Stress incontinence in female Type 2 diabetes mellitus (HCC) Past Surgical History: Procedure Laterality Date CHOLECYSTECTOMY COLONOSCOPY 2003; 2009; 2011 polyp's removed CYSTOCELE REPAIR 1971 ERCP N/A 09/26/2016 Procedure: ERCP; Surgeon: Gregor Mccord MD; Location: [facility] MEDICAL PROCEDURE UNIT ERCP N/A 10/14/2016 Procedure: ERCP w/ stent pull; Surgeon: Gregor Mccord MD; Location: [facility] MEDICAL PROCEDU RE UNIT HARDWARE REMOVAL Left 03/29/2019 Procedure: REMOVE HARDWARE LOWER EXTREMITY-HIP; Surgeon: Mark Montana MD; Location : [facility] PARTIAL HYSTERECTOMY 1971 RECTOCELE REPAIR 1991 TAILBONE 1973 broken, partial removal TONSILLECTOMY 1938 TOTAL HIP ARTHROPLASTY Left 03/29/2019 Procedure: Posterior Total Hip Arthroplasty; Surgeon: Mark Montana MD; Location: [facility] MAIN OR Allergies Allergen Reactions Erythromycin Hives,Rash Levofloxacin Hives,Rash Penicillins Hives,Rash Sulfa Antibiotics Hives,Rash Verapamil Hcl Er Hives,Rash Intolerance No active intolerances/contraindications DISCHARGE EXAM Temp: [36.5 C (97.7 F)-36.9 C (98.4 F)] 36.5 C (97.7 F) Pulse: [64-71] 71 Resp: [16] 16 BP: (110-163)/(54-74) 151/69 General appearance: alert, appears stated age and cooperative Head: Normocephalic, without obvious abnormality, atraumatic Lungs: unlabored respirations Left Hip Exam Other Erythema: absent Pulse: present Comments: Dressing clean dry and intact PLAN Discharge Today home with family Take asa daily for dvt prophylaxis x 6 weeks Pain medications prn wbat with walker F/u in clinic at 2 weeks post op Disposition: home Condition: Good Code Status: Full Code Follow up: Gus Orozco PA-C [address] [facility] [address] In 2 weeks Discharge Medications Changed Medications Details aspirin 325 MG EC tablet Take 1 tablet by mouth Daily for 42 days. For post-operative DVT prophylaxis What changed: Another medication with the same name was removed. Continue taking this medi cation, and follow the directions you see here. Unchanged Medications Details acetaminophen 500 mg tablet Take 2 tablets by mouth every 8 hours for 30 days. aka: TYLENOL ALLERGY RELIEF 10 MG liqui-gel Generic drug: Cetirizine HCl Take 10 mg by mouth Daily. atenolol 25 mg tablet Take 25 mg by mouth Daily. aka: TENORMIN CALCIUM 500 + D3 PO Take 1 tablet by mouth 2 times daily. [employer] TRIPLE MAGNESIUM COMPLEX PO Take by mouth. docusate sodium 100 mg capsule Take 100 mg by mouth Twice daily as needed. aka: COLACE gabapentin 300 mg capsule Take 300 mg by mouth 3 times daily. aka: NEURONTIN Garlic 1000 MG Caps Take 1 tablet by mouth Daily. levothyroxine 100 mcg tablet Take 100 mcg by mouth every morning (before breakfast). aka: SYNTHROID losartan 50 mg tablet Take 50 mg by mouth Daily. aka: COZAAR METAMUCIL PO Take by mouth Daily. MACULAR HEALTH Misc Take by mouth. omeprazole 20 mg capsule Take 20 mg by mouth every morning (before breakfast). aka: priLOSEC ondansetron 4 mg disintegrating tablet Take 4 mg by mouth every 8 hours as needed. aka: ZOFRAN ODT polyethylene glycol packet Take 1 diluted packet by mouth Daily as needed for Constipation for up to 7 days. aka: MIRALAX POTASSIUM CITRATE PO Take by mouth. PRO NUTRIENTS OMEGA 3 PO Take 1 tablet by mouth Daily. sennosides-docusate sodium 8.6-50 MG tablet Take 1 tablet by mouth 2 times daily for 30 days. aka: SENOKOT-S THERAGRAN PO Take 1 tablet by mouth Daily. traMADol 50 mg tablet Take 1 tablet by mouth every 6 hours for 15 days. aka: ULTRAM Discharge took 30 minutes, to include final examination, discussion of admission, and prepa ration of prescriptions, instructions for on-going care, follow-up and documentation of disc harge summary. Gus Orozco PA-C 03/31/2019 documented in this e ncounter Discharge Instructions Instructions Gus Orozco PA-C - 03/31/2019TOTAL HIP ARTHROPLASTY DISCHARGE INSTRUCTIONS Dr. Montana's Cell Your bandage is waterproof, you may shower with the bandage on, but DO NOT soak the area in a bath or pool. You may change the dressing every 2-3 days as needed. The wound was seal ed with a surgical glue do not try to peel this off. You may remove waterproof bandage 7 days after surgery and shower without a bandage. If after 7 days you continue to have drainage, put on a clean dressing and contact Dr. Landeros ld Use walker for one week no matter how good you feel. Progress to no walker when able to walk with no pain after the first week. Your physical therapist will help you stop using the walker gradually. It is possible to put your hip in a position where it is at risk of dislocation. Avoid t his by: Do not perform deep lunges do not bend at the waist more than 90 degrees do not cross your legs place a pillow between your legs at night Do not sit in a low chair Wear MARGARET hose on both legs for 6 weeks during the day. Remove at bedtime Limit walking to 10 min/hour for the first 1-2 weeks with gradual progression afterwards Do not drive while using narcotic medication and do not drive until you speak with Dr. Samara keith about this Diet Gradually resume your normal diet If nausea occurs, go back to liquids and gradually return to your normal diet A balanced diet; high in nutrients will aid in wound healing Follow any specific instructions your physician has given you Notify your physician if you experience: Persistent nausea and/or vomiting or inability to eat Unusual amount of bleeding or drainage from the surgical site Any redness or unusual swelling at the surgical site Fever over 101 Pain not relieved by prescribed medication documented in this encounter Medications at Time of Discharge + + + +---------+ + + | Medication | Sig | Dispensed | Refills | Start | End Date | | | | | | Date | | + + + +---------+ + + | aspirin 325 MG EC | Take 1 tablet by | 42 | 0 | 03/21/20 | | | tablet | mouth Daily for 42 | tablet | | 19 | 9 | | | days. For | | | | | | | post-operative DVT | | | | | | | prophylaxis | | | | | + + [...] + + + +---------+ + + | [place]-3 Fatty | Take 1 tablet by [...] + + + +---------+ + + | acetaminophen | Take 2 tablets by | 180 | 0 | 03/21/20 | | | (TYLENOL) 500 mg | mouth every 8 hours | tablet | | 19 | 9 | | tablet | for 30 days. | | | | | + + + +---------+ + + | polyethylene | Take 1 diluted | 7 | 0 | 03/31/20 | | | glycol (MIRALAX) | packet by mouth | packet | | 19 | 9 | | packet | Daily as needed for | | | | | | | Constipation for up | | | | | | | to 7 days. | | | | | + + + +---------+ + + | | Take 1 tablet by | 60 | 0 | 03/21/20 | | | sennosides-docusate | mouth 2 times daily | tablet | | 19 | 9 | | sodium (SENOKOT-S) | for 30 days. | | | | | | 8.6-50 MG tablet | | | | | | + + + +---------+ + + | traMADol (ULTRAM) | Take 1 tablet by | 60 | 0 | 03/21/20 | | | 50 mg tablet | mouth every 6 hours | tablet | | 19 | 9 | | | for 15 days. | | | | | + + + +---------+ + + documented as of this encounter Progress Notes Gus Orozco PA-C - 03/30/2019 9:32 AM PDTFormatting of this note might be different fr om the original. [facility] Progress Note Primary Care Physician: Susan Leos TODAY S DATE: 03/30/2019 PATIENT NAME: Scarlet Murguia : 1935 Subjective The patient chart and medications were reviewed in detail and the patient was seen and exam ined. The patient pain is well controlled at this time. She has been ambulating with walker and working with physical therapy. Currently she has not been unable to void, she has been catheterized 2 times. Objective Vital Signs: Temp: 36.3 C (97.3 F) BP: 160/70 Pulse: 54 Resp: 16 SpO2: 90 % Intake/Output Summary (Last 24 hours) at 03/30/2019 0932 Last data filed at 03/30/2019 0537 Gross per 24 hour Intake 769 ml Output 1100 ml Net -331 ml Weight: 74.5 kg (164 lb 3.9 oz) Exam: Physical Exam Constitutional: She is oriented to [...] behavior is normal. Thought content norm al. Left Hip Exam Comments: Dressing clean dry and intact, no drainage no discharge Labs: Recent Labs 03/30/19 0516 HGB 9.2* HCT 27.3* Fingerstick Blood Glucoses: No results for input(s): POCGLU in the last 72 hours. IMAGING: Results reviewed. See reports. Medications reviewed. Assessment and plan: Principal Problem: Left hip pain -pain medications PRN -Aspirin daily for DVT prophylaxis -Monitor urine output and and continue voiding trial, bladder scans PRN. If unable to void by this afternoon we will anchor Bowser and have her follow-up with urology outpatient -Progress diet and increase po fluids -wbat with walker -possible d/c today if able to void, otherwise dc tomorrow Other issues stable. Plan discussed with patient/or family Electronically signed by: Gus Orozco PA-C, 03/30/2019 9:32 Viv Horowitz RN - 03/29/2019 1:03 PM PDTPT at bedside Viv Pop RN documented in this enc ounter Plan of Treatment +--------+---------+ + + + | Date | Type | Specialty | Care Team | Description | +--------+---------+ + + + | 05/16/ | Office | Orthopedic Surgery | Mark Montana | | | 2018 | Visit | | MD Alaina [address] | | | | | | [place] | | | | | | [place] [address] | | | | | | [phone] | | | | | | | | +--------+---------+ + + + | 06/30/ | Office | Cardiology | Smitha Griffin DO | | | 2019 | Visit | | [address] | | | | | | [place] | | | | | | [id number] | | | | | | | | +--------+---------+ + + + documented as of this encounter Procedures + +--------+ + + + | Procedure Name | Priori | Date/Time | Associated Diagnosis | Comments | | | ty | | | | + +--------+ + + + | POC GLUCOSE (NON | Routin | 03/31/2019 | | Results for this | | ORD) | e | 11:58 AM | | procedure are in the | | | | PDT | | results section. | + +--------+ + + + | POC GLUCOSE (NON | Routin | 03/31/2019 | | Results for this | | ORD) | e | 7:23 AM | | procedure are in the | | | | PDT | | results section. | + +--------+ + + + | POC GLUCOSE (NON | Routin | 03/30/2019 | | Results for this | | ORD) | e | 8:57 PM | | procedure are in the | | | | PDT | | results section. | + +--------+ + + + | HEMOGLOBIN AND | Routin | 03/30/2019 | | Results for this | | HEMATOCRIT | e | 5:16 AM | | procedure are in the | | | | PDT | | results section. | + +--------+ + + + | POC GLUCOSE (NON | Routin | 03/30/2019 | | Results for this | | ORD) | e | 3:23 AM | | procedure are in the | | | | PDT | | results section. | + +--------+ + + + | POC GLUCOSE (NON | Routin | 03/29/2019 | | Results for this | | ORD) | e | 8:59 PM | | procedure are in the | | | | PDT | | results section. | + +--------+ + + + | XR PELVIS 1 OR 2 VW | Routin | 03/29/2019 | | Results for this | | | e | 10:15 AM | | procedure are in the | | | | PDT | | results section. | + +--------+ + + + | POC GLUCOSE (NON | Routin | 03/29/2019 | | Results for this | | ORD) | e | 9:20 AM | | procedure are in the | | | | PDT | | results section. | + +--------+ + + + | TYPE AND SCREEN | STAT | 03/29/2019 | | Results for this | | | | 7:59 AM | | procedure are in the | | | | PDT | | results section. | + +--------+ + + + | REMOVE HARDWARE | | 03/29/2019 | Left hip pain | | | LOWER EXTREMITY | | 7:08 AM | | | | | | PDT | | | + +--------+ + + + +---+--------+ | | | | | Specia | | | l | | | Needs | | | | | | Stryke | | | r | | | compon | | | ent | +---+--------+ + +---+ + +---+ | ARTHROPLASTY HIP | | 03/29/2019 | Left hip pain | | | | | 7:08 AM | | | | | | PDT | | | + +---+ + +---+ +---+--------+ | | | | | Specia | | | l | | | Needs | | | | | | Stryke | | | r | | | compon | | | ent | +---+--------+ + +--------+ +---+ + | POC GLUCOSE (NON | Routin | 03/29/2019 | | Results for this | | ORD) | e | 6:42 AM | | procedure are in the | | | | PDT | | results section. | + +--------+ +---+ + documented in this encounter Results POC Glucose (03/31/2019 11:58 AM PDT) + + + + + + | Component | Value | Ref Range | Performed | Pathologist | | | | | At | Signature | + + + + + + | Glucose, | 62 (L)Comment: Testing | 65 - 99 mg/dL | [facility] | | | POC | performed at [facility];[address] | | LABORATORY | | | | [address];[place], [place] | | | | | | [address] | | | | + + + + + + + + | Specimen | + + | | + + + + + + + | Performing | Address | City/State/Zipcode | Phone Number | | Organization | | | | + + + + + | [facility] | [address] | [place] [address] | [phone] | + + + + + POC Glucose (03/31/2019 7:23 AM PDT) + + + + + + | Component | Value | Ref Range | Performed | Pathologist | | | | | At | Signature | + + + + + + | Glucose, | 122 (H)Comment: Testing | 65 - 99 mg/dL | [facility] | | | POC | performed at [facility];[address] | | LABORATORY | | | | [address];[place] | | | | | | [address] | | | | + + + + + + + + | Specimen | + + | | + + + + + + + | Performing | Address | City/State/Zipcode | Phone Number | | Organization | | | | + + + + + | [facility] | [address] | [place] [address] | [phone] | + + + + + POC Glucose (03/30/2019 8:57 PM PDT) + + + + + + | Component | Value | Ref Range | Performed | Pathologist | | | | | At | Signature | + + + + + + | Glucose, | 98Comment: Testing | 65 - 99 mg/dL | [facility] | | | POC | performed at [facility];[address] | | LABORATORY | | | | [address];[place] | | | | | | [address] | | | | + + + + + + + + | Specimen | + + | | + + + + + + + | Performing | Address | City/State/Zipcode | Phone Number | | Organization | | | | + + + + + | [facility] | [address] | [place] [address] | [phone] | + + + + + Hemoglobin and Hematocrit (03/30/2019 5:16 AM PDT) + + + + + + | Component | Value | Ref Range | Performed | Pathologist | | | | | At | Signature | + + + + + + | Hemoglobin | 9.2 (L) | 11.3 - 15.5 | [facility] | | | | | g/dL | LABORATORY | | + + + + + + | Hematocrit | 27.3 (L)Comment: Testing | 34.0 - 46.0 % | [facility] | | | | performed at [facility];[address] | | LABORATORY | | | | [address];[place], [place] | | | | | | [address] | | | | + + + + + + + + | Specimen | + + | Blood | + + + + + + + | Performing | Address | City/State/Zipcode | Phone Number | | Organization | | | | + + + + + | [facility] | [address] | [place] [address] | [phone] | + + + + + POC Glucose (03/30/2019 3:23 AM PDT) + + + + + + | Component | Value | Ref Range | Performed | Pathologist | | | | | At | Signature | + + + + + + | Glucose, | 147 (H)Comment: Testing | 65 - 99 mg/dL | [facility] | | | POC | performed at [facility];[address] | | LABORATORY | | | | [address];[place] | | | | | | [address] | | | | + + + + + + + + | Specimen | + + | | + + + + + + + | Performing | Address | City/State/Zipcode | Phone Number | | Organization | | | | + + + + + | [facility] | [address] | [place] [address] | [phone] | + + + + + POC Glucose (03/29/2019 8:59 PM PDT) + + + + + + | Component | Value | Ref Range | Performed | Pathologist | | | | | At | Signature | + + + + + + | Glucose, | 172 (H)Comment: Testing | 65 - 99 mg/dL | [facility] | | | POC | performed at [facility];[address] | | LABORATORY | | | | [address];[place], [place] | | | | | | [address] | | | | + + + + + + + + | Specimen | + + | | + + + + + + + | Performing | Address | City/State/Zipcode | Phone Number | | Organization | | | | + + + + + | [facility] | [address] | [place] [address] | [phone] | + + + + + XR Pelvis 1 or 2 Vw (03/29/2019 10:15 AM PDT) + + | Specimen | + + | | + + + + + | Impressions | Performed At | + + + | Post arthroplasty. Signed by: Yrn Johnson Amit Sign | [facility] | | Date/Time: 03/29/2019 10:33 AM | | + + + + + + | Narrative | Performed At | + + + | PELVIS ONE OR TWO VIEWS CLINICAL INFORMATION: Post left MADELYN | [facility] | | COMPARISON: XR HIP LEFT 2-3 VIEWS (03/14/2019); MRI MRCP LIVER WO | | | CONTRAST (10/30/2016); FL CHOLANGIOGRAM INTRAOPERATIVE (08/08/2016); | | | FINDINGS: Patient is post arthroplasty. Hardware appears grossly | | | intact. Postoperative soft tissue swelling and gas seen. | | + + + + + | Procedure Note | + + | Howard, Rad Results In - 03/29/2019 10:37 AM PDT | | PELVIS ONE OR TWO VIEWS | | | | CLINICAL INFORMATION: | | Post left MADELYN | | | | COMPARISON: | | XR HIP LEFT 2-3 VIEWS (03/14/2019); MRI MRCP LIVER WO CONTRAST | | (10/30/2016); FL CHOLANGIOGRAM INTRAOPERATIVE (08/08/2016); | | | | FINDINGS: | | Patient is post arthroplasty. Hardware appears grossly intact. | | Postoperative soft tissue swelling and gas seen. | | | | IMPRESSION: | | Post arthroplasty. | | | | | | | | Signed by: Yrn Johnson Amit | | Sign Date/Time: 03/29/2019 10:33 AM | + + + +---------+ + + | Performing | Address | City/State/Zipcode | Phone Number | | Organization | | | | + +---------+ + + | [facility] | | | | + +---------+ + + POC Glucose (03/29/2019 9:20 AM PDT) + + + + + + | Component | Value | Ref Range | Performed | Pathologist | | | | | At | Signature | + + + + + + | Glucose, | 99Comment: Testing | 65 - 99 mg/dL | [facility] | | | POC | performed at [facility];[address] | | LABORATORY | | | | [address];[place], [place] | | | | | | [address] | | | | + + + + + + + + | Specimen | + + | | + + + + + + + | Performing | Address | City/State/Zipcode | Phone Number | | Organization | | | | + + + + + | [facility] | [address] | [place] [address] | [phone] | + + + + + Type and Screen (03/29/2019 7:59 AM PDT) + + + + + [...] + + + + + + | [facility] | [id number] | | [facility] | | | | | | LABORATORY | | + + + + + + | [facility] | Testing performed at | | [facility] | | | | [facility];[address] | LABORATORY | | | | [address];[place] [address] | | | | + + + + + + + + | Specimen | + + | Blood | + + + + + + + | Performing | Address | City/State/Zipcode | Phone Number | | Organization | | | | + + + + + | [facility] | [address] | [place] [address] | [phone] | + + + + + POC Glucose (03/29/2019 6:42 AM PDT) + + + + + + | Component | Value | Ref Range | Performed | Pathologist | | | | | At | Signature | + + + + + + | Glucose, | 96Comment: Testing | 65 - 99 mg/dL | [facility] | | | POC | performed at [facility];[address] | | LABORATORY | | | | [address];[place], [place] | | | | | | [address] | | | | + + + + + + + + | Specimen | + + | | + + + + + + + | Performing | Address | City/State/Zipcode | Phone Number | | Organization | | | | + + + + + | [facility] | [address] | [place] [address] | [phone] | + + + + + documented in this encounter Visit Diagnoses + + | Diagnosis | + + | Left hip pain - Primary Pain in joint, pelvic region and thigh | + + | Post-traumatic osteoarthritis of left hip Secondary localized osteoarthrosis, pelvic | | region and thigh | + + documented in this encounter Admitting Diagnoses + + | Diagnosis | + + | Left hip pain Pain in joint, pelvic region and thigh | + + documented in this encounter Administered Medications + +--------+ + +------+------+ | Medication Order | MAR | Action | Dose | Rate | Site | | | Action | Date | | | | + +--------+ + +------+------+ | acetaminophen (TYLENOL) tablet | Given | 03/29/20 | 1,000 mg | | | | 1,000 mg 1,000 mg, Oral, ONCE, | | 19 7:01 | | | | | Thu03/29/19 at 0630, For 1 dose, | | AM PDT | | | | | Give one hour prior to incision, | | | | | | | Pre-op | | | | | | + +--------+ + +------+------+ +---+---+ | | | +---+---+ + +-------+ + +---+---+ | acetaminophen (TYLENOL) tablet | Given | 03/31/20 | 1,000 mg | | | | 1,000 mg 1,000 mg, Oral, EVERY 8 | | 19 1:40 | | | | | HOURS (3 times per day), First | | PM PDT | | | | | dose on Thu03/29/19 at 1445, | | | | | | | Start 8 hours after pre-op dose., | | | | | | | Post-op/Phase II | | | | | | + +-------+ + +---+---+ +-------+ + +---+---+ | Given | 03/31/20 | 1,000 mg | | | | | 19 6:26 | | | | | | AM PDT | | | | +-------+ + +---+---+ | Given | 03/30/20 | 1,000 mg | | | | | 19 9:54 | | | | | | PM PDT | | | | +-------+ + +---+---+ +---+---+ | | | +---+---+ + +-------+ +--------+---+---+ | aspirin EC tablet 325 mg 325 | Given | 03/31/20 | 325 mg | | | | mg, Oral, DAILY, First dose on | | 19 9:24 | | | | | 03/30/19 at 0700, Do not cut | | AM PDT | | | | | or crush Give first dose within | | | | | | | 20 hours of surgery end time. | | | | | | | Nursing/Pharmacy to retime first | | | | | | | dose to 1900 for surgeries ending | | | | | | | between 2200 and 0900., | | | | | | | Post-op/Phase II | | | | | | + +-------+ +--------+---+---+ +-------+ +--------+---+---+ | Given | 03/30/20 | 325 mg | | | | | 19 6:53 | | | | | | AM PDT | | | | +-------+ +--------+---+---+ +---+---+ | | | +---+---+ + +-------+ +-------+---+---+ | atenolol (TENORMIN) tablet 25 | Given | 03/31/20 | 25 mg | | | | mg 25 mg, Oral, DAILY, First | | 19 9:24 | | | | | dose on Thu03/30/19 at 0900, | | AM PDT | | | | | Post-op/Phase II | | | | | | + +-------+ +-------+---+---+ +-------+ +-------+---+---+ | Given | 03/30/20 | 25 mg | | | | | 19 8:48 | | | | | | AM PDT | | | | +-------+ +-------+---+---+ +---+---+ | | | +---+---+ + +---------+ +-----+-------+---+ | ceFAZolin in dextrose (ANCEF) | New Bag | 03/29/20 | 2 g | 200 | | | IVPB 2 g 2 g, Intravenous, | | 19 11:41 | | mL/hr | | | Administer over 30 Minutes, EVERY | | PM PDT | | | | | 8 HOURS INTERVAL, First dose on | | | | | | | 03/29/19 at 1600, For 2 | | | | | | | doses, Start 8 hours after | | | | | | | previous dose. Last dose to be | | | | | | | given within 24 hours of surgery | | | | | | | end time Keep in refrigerator., | | | | | | | Post-op/Phase II, Indications: | | | | | | | Surgical Prophylaxis | | | | | | + +---------+ +-----+-------+---+ +---------+ +-----+-------+---+ | New Bag | 03/29/20 | 2 g | 200 | | | | 19 4:11 | | mL/hr | | | | PM PDT | | | | +---------+ +-----+-------+---+ +---+---+ | | | +---+---+ + +-------+ +-------+---+---+ | cetirizine (zyrTEC) tablet 10 | Given | 03/31/20 | 10 mg | | | | mg 10 mg, Oral, DAILY, First | | 19 9:25 | | | | | dose on Thu03/30/19 at 0900, | | AM PDT | | | | | Post-op/Phase II | | | | | | + +-------+ +-------+---+---+ +-------+ +-------+---+---+ | Given | 03/30/20 | 10 mg | | | | | 19 8:48 | | | | | | AM PDT | | | | +-------+ +-------+---+---+ + +---+ | | | + +---+ | diphenhydrAMINE (BENADRYL) 12.5 | | | mg/5 mL liquid 25 mg 25 mg, | | | Oral, EVERY 4 HOURS PRN, Itching, | | | Starting Tu03/29/19 at 1417, | | | Oral route is preferred., | | | Post-op/Phase II | | + +---+ | | | + +---+ | diphenhydrAMINE (BENADRYL) | | | capsule 25 mg 25 mg, Oral, EVERY | | | 4 HOURS PRN, Itching, Starting | | | Thu03/29/19 at 1417, Oral route | | | is preferred., Post-op/Phase II | | + +---+ | | | + +---+ | diphenhydrAMINE (BENADRYL) | | | injection 12.5 mg 12.5 mg, | | | Intravenous, EVERY 4 HOURS PRN, | | | Itching, Starting Thu03/29/19 at | | | 1417, Oral route is preferred., | | | Post-op/Phase II | | + +---+ | | | + +---+ + +-------+ +--------+---+---+ | gabapentin (NEURONTIN) capsule | Given | 03/31/20 | 300 mg | | | | 300 mg 300 mg, Oral, 3 TIMES | | 19 1:40 | | | | | DAILY, First dose on Thu03/29/19 | | PM PDT | | | | | at 1445, Post-op/Phase II | | | | | | + +-------+ +--------+---+---+ +-------+ +--------+---+---+ | Given | 03/31/20 | 300 mg | | | | | 19 9:25 | | | | | | AM PDT | | | | +-------+ +--------+---+---+ | Given | 03/30/20 | 300 mg | | | | | 19 9:54 | | | | | | PM PDT | | | | +-------+ +--------+---+---+ +---+---+ | | | +---+---+ + +-------+ +---------+---+---+ | levothyroxine (SYNTHROID) | Given | 03/31/20 | 100 mcg | | | | tablet 100 mcg 100 mcg, Oral, | | 19 6:27 | | | | | DAILY BEFORE BREAKFAST, First | | AM PDT | | | | | dose on Thu03/30/19 at 0730, | | | | | | | Give before breakfast., | | | | | | | Post-op/Phase II | | | | | | + +-------+ +---------+---+---+ +-------+ +---------+---+---+ | Given | 03/30/20 | 100 mcg | | | | | 19 6:54 | | | | | | AM PDT | | | | +-------+ +---------+---+---+ +---+---+ | | | +---+---+ + +-------+ +-------+---+---+ | losartan (COZAAR) tablet 50 mg | Given | 03/31/20 | 50 mg | | | | 50 mg, Oral, DAILY, First dose | | 19 9:25 | | | | | on 03/29/19 at 1230, | | AM PDT | | | | | Post-op/Phase II | | | | | | + +-------+ +-------+---+---+ +-------+ +-------+---+---+ | Given | 03/30/20 | 50 mg | | | | | 19 8:48 | | | | | | AM PDT | | | | +-------+ +-------+---+---+ | Given | 03/29/20 | 50 mg | | | | | 19 12:24 | | | | | | PM PDT | | | | +-------+ +-------+---+---+ +---+---+ | | | +---+---+ + +-------+ +------+---+---+ | ondansetron (ZOFRAN) injection | Given | 03/30/20 | 4 mg | | | | 4 mg 4 mg, Intravenous, EVERY 6 | | 19 1:20 | | | | | HOURS PRN, Nausea, Vomiting, | | PM PDT | | | | | Starting 03/29/19 at 1417, | | | | | | | First line agent Use PO option | | | | | | | unless NPO status or unable to | | | | | | | tolerate, Post-op/Phase II | | | | | | + +-------+ +------+---+---+ +---+---+ | | | +---+---+ + +-------+ +-------+---+---+ | pantoprazole (PROTONIX) DR | Given | 03/31/20 | 40 mg | | | | tablet 40 mg 40 mg, Oral, DAILY | | 19 6:27 | | | | | BEFORE BREAKFAST, First dose on | | AM PDT | | | | | 03/29/19 at 1445, Do not cut | | | | | | | or crush., Indication: NSAID, | | | | | | | high-dose, Post-op/Phase II | | | | | | + +-------+ +-------+---+---+ +-------+ +-------+---+---+ | Given | 03/30/20 | 40 mg | | | | | 19 6:54 | | | | | | AM PDT | | | | +-------+ +-------+---+---+ | Given | 03/29/20 | 40 mg | | | | | 19 3:26 | | | | | | PM PDT | | | | +-------+ +-------+---+---+ +---+---+ | | | +---+---+ + +-------+ +---+---+---+ | povidone-iodine 5 % external | Given | 03/29/20 | | | | | solution Other, PRN, Other, | | 19 7:21 | | | | | pre-op, Starting Tu03/29/19 at | | AM PDT | | | | | 0721, For 1 dose, monroe, Pre-op | | | | | | + +-------+ +---+---+---+ +---+---+ | | | +---+---+ + +-------+ +-------+---+---+ | traMADol (ULTRAM) tablet 50 mg | Given | 03/29/20 | 50 mg | | | | 50 mg, Oral, EVERY 6 HOURS PRN, | | 19 7:01 | | | | | Pain, Starting 03/29/19 at | | AM PDT | | | | | 0613, Pre-op | | | | | | + +-------+ +-------+---+---+ +---+---+ | | | +---+---+ + +-------+ +-------+---+---+ | traMADol (ULTRAM) tablet 50 mg | Given | 03/31/20 | 50 mg | | | | 50 mg, Oral, EVERY 6 HOURS PRN, | | 19 6:26 | | | | | Pain, Mild Pain, Starting Tue | | AM PDT | | | | | 03/29/19 at 1417, Post-op/Phase | | | | | | | II | | | | | | + +-------+ +-------+---+---+ +-------+ +-------+---+---+ | Given | 10/16/20 | 50 mg | | | | | 19 7:27 | | | | | | PM PDT | | | | +-------+ +-------+---+---+ | Given | 10/16/20 | 50 mg | | | | | 19 8:57 | | | | | | AM PDT | | | | +-------+ +-------+---+---+ +---+---+ | | | +---+---+ documented in this encounter
--- OUTSIDE RECORDS SUMMARY | ~2019-05-02 | XMS | Encounter Summary ---
Demographics + + + | Address | [address] | | | [place] [address] | + + + | Home Phone | | + + + | Preferred Language | Unknown | + + + | Marital Status | | + + + | Hoahaoism Affiliation | 1077 | + + + | Race | Unknown | + + + | Ethnic Group | Unknown | + + + Author + + + | Author | [facility] | | | and Khurramana | + + + | Organization | [facility] | | | and [...] Team Providers + +------+ + | Care Frame Runner Name | Role | Phone | + [...] [place] | | | | | | [address] | | | | | | [phone] | | | +--------+ + + + [...] [place] | | | | | | [place] [address] | | | | | | [phone] | | | | | | | | +--------+---------+ + + + | 06/30/ | Office | Cardiology | Smitha Griffin DO | | | 2019 | Visit | | [address] | | | | | | [place] | | | | | | [address] | | | | | | | | +--------+---------+ + + + documented as of this encounter Visit Diagnoses + + | Diagnosis | + + | Other screening mammogram | + + documented in this encounter"
--- OUTSIDE RECORDS SUMMARY | ~2019-05-02 | XMS | Encounter Summary ---
Demographics + + + | Address | [address] | | | [place] [address] | + + + | Home Phone | | + + + | Preferred Language | Unknown | + + + | Marital Status | | + + + | Hoahaoism Affiliation | 1077 | + + + | Race | Unknown | + + + | Ethnic Group | Unknown | + + + Author + + + | Author | [facility] | | | and Khurramana | + + + | Organization | [facility] | | | and [place] | [...] Team Providers + +------+ + | Care Daytime Caregiver Name | Role | Phone | + +------+ + | Susan Leos | PCP | | | KYA | | | + +------+ + Reason for Visit +--------+ + | Reason | Comments | +--------+ + | Other | discuss lab work | +--------+ + Encounter Details +--------+ + + + + | Date | Type | Department | Care Team | Description | +--------+ + + + + | 03/03/ | Telephone | [facility] | Malcom Mojica, | [place] (discuss lab | | 2016 | | PHYSIATRY [address] | MD Desi SMITH | work ) | | | | [place], | [address] [place] | | | | | [place] [address] | [address] | | | | | [phone] | | | +--------+ + + + [...] | 2019 | Visit | | MD Paul Foley | | | | | | [place] | | | | | | [facility] [address] | | | | | | [phone] | | | | | | | | +--------+---------+ + + + | 06/30/ | Office | Cardiology | Smitha Griffin DO | | | 2020 | Visit | | [address] | | | | | | [place] | | | | | | [id number] | | | | | | | | +--------+---------+ + + + documented as of this encounter Visit Diagnoses Not on filedocumented in this encounter"
--- OUTSIDE RECORDS SUMMARY | ~2019-05-02 | XMS | Encounter Summary ---
Demographics + + + | Address | [address] | | | [place] [address] | + + + | Home Phone | | + + + | Preferred Language | Unknown | + + + | Marital Status | | + + + | Tenriism Affiliation | 1077 | + + + | Race | Unknown | + + + | Ethnic Group | Unknown | + + + Author + + + | Author | [facility] | | | and Khurramana | + + + | Organization | [facility] | | | and [...] Team Providers + +------+ + | Care Video Specialist Name | Role | Phone | [...] | | | | | Spondylolist | [address] | [address] | | | | | hesis at | Phone: | Phone: | | | | | L4-L5 level | [phone] | [phone] | | | | | Bilateral | Fax: | Fax: | | | | | lumbar | [phone] | [phone] | | | | | radiculopath | [...] | disc disease), | | | | [place]uth[place], | [address] [place], | lumbar (Primary Dx); | | | | [place] [address] | [place] [address] | 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
--- OUTSIDE RECORDS SUMMARY | ~2019-05-02 | XMS | Encounter Summary ---
Demographics + + + | Address | [address] | | | [place] [address] | + + + | Home Phone [...] + | Author | [facility] | | | and Khurramana | + + + | Organization | [facility] | | | and [...] Team Providers + +------+ + | Care Sr Risk Management Consultant Name | Role | Phone | + [...] | | Maninder Palomino, | [place], | | | | | [place] [address] | [place] [address] | | | | | [phone] | [phone] | | | | | | | [...] [place] | | | | | | [place] [address] | | | | | | [phone] | | | | | | | | +--------+---------+ + + + | 06/30/ | Office | Cardiology | Smitha Griffin DO | | | 2019 | Visit | | [address] | | | | | | [place] | | | | | | [address] | | | | | | | | +--------+---------+ + + + documented as of this encounter Visit Diagnoses Not on filedocumented in this encounter"
--- OUTSIDE RECORDS SUMMARY | ~2019-05-02 | XMS | Encounter Summary ---
Demographics + + + | Address | [address] | | | [place] [address] | + + + | Home Phone | | + + + | Preferred Language | Unknown | + + + | Marital Status | | + + + | Episcopalian Affiliation | 1077 | + + + | Race | Unknown | + + + | Ethnic Group | Unknown | + + + Author + + + | Author | [facility] | | | and Khurramana | + + + | Organization | 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 | | 2019 | | [address] | [phone] | | | | | [phone] | | | +--------+ + + + [...] Procedure: ERCP; Surgeon: Gregor Mccord MD; Location: [facility] MEDICAL PROCEDURE UNIT ERCP N/A 10/14/2016 Procedure: ERCP w/ stent pull; Surgeon: Gregor Mccord MD; Location: [facility] MEDICAL PROCEDU RE UNIT HARDWARE REMOVAL Left 03/29/2019 Procedure: REMOVE HARDWARE LOWER EXTREMITY-HIP; Surgeon: Mark [place] MD; [place] [facility] [place] PARTIAL HYSTERECTOMY 1971 RECTOCELE REPAIR [...] Code Follow up: Gus Orozco PA-C [address] [facility] [address] In 2 weeks Discharge Medications Changed Medications [...] | | | | | | | ([facility]) | | | | | | | MISC | | | | | | + + + +---------+ + + | [place]-3 Fatty | Take 1 tablet by | [...] might be different fr om the original. [facility] Progress Note Primary Care Physician: Susan Leos [...] | | | | | [place] [address] | | | | | | [phone] | | | | | | | | +--------+---------+ + + + | 06/30/ | Office | Cardiology | Smitha Griffin DO | | | 2019 | Visit | | [address] | | | | | | [place] | | | | | | [address] | | | | | | | [...] | | | POC | performed at [facility] | | LABORATORY | | | | [address];[place], [place] | | | | | | [address] | | | | + + + + + + + + | Specimen | + + | | + + + + + + + | Performing | Address | City/State/Zipcode | Phone Number | | Organization | | | | + + + + + | [facility] | [address] | [place] [address] | [phone] | + + + + + POC [...] | | | POC | performed at [facility] | | LABORATORY | | | | [address];[place] | | | | | | [address] | | | | + + + + + + + + | Specimen | + + | | + + + + + + + | Performing | Address | City/State/Zipcode | Phone Number | | Organization | | | | + + + + + | [facility] | [address] | [place] [address] | [phone] | + + + + + POC Glucose (03/30/2019 8:57 PM PDT) + + + + + + | Component | Value | Ref Range | Performed | Pathologist | | | | | At | Signature | + + + + + + | Glucose, | 98Comment: Testing | 65 - 99 mg/dL | [facility] | | | POC | performed at [facility];[address] | | LABORATORY | | | | [address];[place] | | | | | | [address] | | | | + + + + + + + + | Specimen | + + | | + + + + + + + | Performing | Address | City/State/Zipcode | Phone Number | | Organization | | | | + + + + + | [facility] | [address] | [place] [address] | [phone] | + + + + + Hemoglobin [...] [facility] | | | | performed at [facility];[address] | | LABORATORY | | | | [address];[place], [place] | | | | | | [address] | | | | + + + + + + + + | Specimen | + + | Blood | + + + + + + + | Performing | Address | City/State/Zipcode | Phone Number | | Organization | | | | + + + + + | [facility] | [address] | [place] [address] | [phone] | + + + + + POC [...] | | | POC | performed at [facility] | | LABORATORY | | | | [address];[place] | | | | | | [address] | | | | + + + + + + + + | Specimen | + + | | + + + + + + + | Performing | Address | City/State/Zipcode | Phone Number | | Organization | | | | + + + + + | [facility] | [address] | [place] [address] | [phone] | + + + + + POC [...] | | | POC | performed at [facility];[address] | | LABORATORY | | | | [address];[place], [place] | | | | | | [address] | | | | + + + + + + + + | Specimen | + + | | + + + + + + + | Performing | Address | City/State/Zipcode | Phone Number | | Organization | | | | + + + + + | [facility] | [address] | [place] [address] | [phone] | + + + + + XR [...] | | | POC | performed at [facility];[address] | | LABORATORY | | | | [address];[place], [place] | | | | | | [address] | | | | + + + + + + + + | Specimen | + + | | + + + + + + + | Performing | Address | City/State/Zipcode | Phone Number | | Organization | | | | + + + + + | [facility] | [address] | [place] [address] | [phone] | + + + + + Type [...] + + + | [facility] | [id number] | | [facility] | | | | | | LABORATORY | | + + + + + + | [facility] | Testing performed at | | [facility] | | | | [facility];[address] | | LABORATORY | | | | [address];[place] [address] | | | | + + + + + + + + | Specimen | + + | Blood | + + + + + + + | Performing | Address | City/State/Zipcode | Phone Number | | Organization | | | | + + + + + | [facility] | [address] | [place] [address] | [phone] | + + + + + POC Glucose (03/29/2019 6:42 AM PDT) + + + + + + | Component | Value | Ref Range | Performed | Pathologist | | | | | At | Signature | + + + + + + | Glucose, | 96Comment: Testing | 65 - 99 mg/dL | [facility] | | | POC | performed at [facility];[address] | | LABORATORY | | | | [address];[place], [place] | | | | | | [address] | | | | + + + + + + + + | Specimen | + + | | + + + + + + + | Performing | Address | City/State/Zipcode | Phone Number | | Organization | | | | + + + + + | [facility] | [address] | [place] [address] | [phone] | + + + + + documented [...]
--- OUTSIDE RECORDS SUMMARY | ~2019-05-02 | XMS | Encounter Summary ---
Demographics + + + | Address | [address] | | | [place] [address] | + + + | Home Phone [...] + | Author | [facility] | | | and Khurramana | + + + | Organization | [facility] | | | and [place] [...] Team Providers + +------+ + | Care Health Care / Medical Job Titles Name | Role | Phone | + +------+ + | Susan Leos | PCP | | | PA-C | | | + +------+ + Encounter Details +--------+ + + + + | Date | Type | Department | Care Team | Description | +--------+ + + + + | 10/09/ | Episode | [facility] [place] | Sonali Garcia | | | 2016 | Changes | GASTROENTEROLOGY | ROBI Foley | | | | | [address] [facility] | | | | | | [address] [place] | | | | | | [address] | | | | | | [phone] | | | +--------+ + + + [...] [place] | | | | | | [place] [address] | | | | | | [phone] | | | | | | | | +--------+---------+ + + + | 06/30/ | Office | Cardiology | Smitha Griffin DO | | | 2019 | Visit | | [address] | | | | | | [place] | | | | | | [address] | | | | | | | | +--------+---------+ + + + documented as of this encounter Visit Diagnoses Not on filedocumented in this encounter"
--- OUTSIDE RECORDS SUMMARY | ~2019-05-02 | XMS | Encounter Summary ---
Demographics + + + | Address | [address] | | | [place] [address] | + + + | Home Phone | | + + + | Preferred Language | Unknown | + + + | Marital Status | | + + + | Anabaptism Affiliation | 1077 | + + + | Race | Unknown | + + + | Ethnic Group | Unknown | + + + Author + + + | Author | [facility] | | | and Khurramana | + + + | Organization | [facility] | | | and [...] Team Providers + +------+ + | Care Blind Hooker Name | Role | Phone | + [...] | | | | [address] [facility] | | | | | | [address] [place] | | | | | | [address] | | | | | | [phone] | | | +--------+ + + + [...] [place] | | | | | | [place] [address] | | | | | | [phone] | | | | | | | | +--------+---------+ + + + | 06/30/ | Office | Cardiology | Smitha Griffin DO | | | 2019 | Visit | | [address] | | | | | | [place] | | | | | | [address] | | | | | | | | +--------+---------+ + + + documented as of this encounter Visit Diagnoses Not on filedocumented in this encounter"
--- OUTSIDE RECORDS SUMMARY | ~2019-05-02 | XMS | Encounter Summary ---
Demographics + + + | Address | [address] | | | [place] [address] | + + + | Home Phone [...] | Author | [facility] | | | and Khurramana | + + + | Organization | [facility] | | | and [place] | [...] Team Providers + +------+ + | Care Flexographic Press Set Up Operator Name | Role | Phone | + +------+ + | Susan Leos | PCP | | | PA-C | | | + +------+ + Reason for Visit + + + | Reason | Comments | + + + | Referral | | + + + Encounter Details +--------+ + + + + | Date | Type | Department | Care Team | Description | +--------+ + + + + | 09/05/ | Telephone | [facility] [place] | Gregor Mccord MD | Referral | | 2017 | | GASTROENTEROLOGY | [address], [place] | | | | | [address] [place] | [address] [place], [place] | | | | | [address] [place], [place] | [address] | | | | | [address] | | | | | | [phone] | | | +--------+ + + + [...] | Office | Orthopedic Surgery | Mark oMntana | | | 2019 | Visit | | MD [address] | | | | | | [place] | | | | | | [place] [address] | | | | | | [phone] | | | | | | | | +--------+---------+ + + + | 06/30/ | Office | Cardiology | Smitha Griffin DO | | | 2019 | Visit | | [address] | | | | | | [place] | | | | | | [address] | | | | | | | | +--------+---------+ + + + documented as of this encounter Visit Diagnoses Not on filedocumented in this encounter"
--- OUTSIDE RECORDS SUMMARY | ~2019-05-02 | XMS | Encounter Summary ---
Demographics + + + | Address | [address] | | | [place] [address] | + + + | Home Phone | | + + + | Preferred Language | Unknown | + + + | Marital Status | | + + + | Adventist Affiliation | 1077 | + + + | Race | Unknown | + + + | Ethnic Group | Unknown | + + + Author + + + | Author | [facility] | | | and Khurramana | + + + | Organization | [facility] [...] Team Providers + +------+ + | Care Pipefitter Name | Role | Phone | + [...] 2017 | | GASTROENTEROLOGY | [address], [place] | | | | | [address] [place] | [address] [place], [place] | | | | | [address] [place], [place] | [address] | | | | | [address] | | | | | | [phone] | | | +--------+ + + + [...] [place] | | | | | | [place] [address] | | | | | | [phone] | | | | | | | | +--------+---------+ + + + | 06/30/ | Office | Cardiology | Smitha Griffin DO | | | 2019 | Visit | | [address] | | | | | | [place] | | | | | | [address] | | | | | | | | +--------+---------+ + + + documented as of this encounter Visit Diagnoses Not on filedocumented in this encounter"
--- OUTSIDE RECORDS SUMMARY | ~2019-05-02 | XMS | Encounter Summary ---
Demographics + + + | Address | [address] | | | [place] [address] | + + + | Home Phone | | + + + | Preferred Language | Unknown | + + + | Marital Status | | + + + | Religion Affiliation | 1077 | + + + | Race | Unknown | + + + | Ethnic Group | Unknown | + + + Author + + + | Author | [facility] | | | and Khurramana | + + + | Organization | [facility] | [...] Team Providers + +------+ + | Care Snack Bar Cashier Name | Role | Phone | + +------+ + | Susan Leos | PCP | | | PA-C | | | + +------+ + Encounter Details +--------+ + + + + | Date | Type | Department | Care Team | Description | +--------+ + + + + | 02/24/ | Hospital | [facility] | Malcom Mojica | Peripheral | | 2016 | Encounter | [facility] | MD Desi SMITH | polyneuropathy (HCC) | | | | [address] [place] | [address] [place] | | | | | [place] | [address] | | | | | [address] | | | | | | [phone] | | | +--------+ + + + [...] | | | | | | | ([facility] xAd) | | | | | | | MISC | | | | | | + + + +---------+--------+ + | Braithwaite-3 Fatty | Take 1 tablet by | [...] | | | | | [place] [address] | | | | | | [phone] | | | | | | | | +--------+---------+ + + + | 06/30/ | Office | Cardiology | Smitha Griffin DO | | | 2019 | Visit | | [address] | | | | | | [place] | | | | | | [id number] | | | | | | | [...] ST. | [address] | [place], [place] | [phone] | | [facility] | | [address] | | | - LABORATORY | | [...] [place] | | | | | | [address] | | | | + + + [...] | [address] | [place] [address] | [phone] | + + + + + Protein [...] MD02-27-16 | [facility] | |02-27-16 | [facility] | | | - LABORATORY | + + + + + + + + | Performing | Address | City/State/Zipcode | Phone Number | | Organization | | | | + + + + + | [facility] | [address] | [place] | [phone] | | [facility] | | [address] | | | - LABORATORY | | [...] [place] | | | | | | [address] | | | | + + + [...] [address] | [place] [address] | [phone] | + + + + + Methylmalonic [...] [place] | | | | | | [address] | | | | + + + [...] [address] | [place] [address] | [phone] | + + + + + Vitamin [...] FERRER. | [address] | [place] | [phone] | | [facility] | | [address] | | | - LABORATORY | | | | + + + + + documented in this encounter Visit Diagnoses + + | Diagnosis | + + | Peripheral polyneuropathy Unspecified hereditary and idiopathic peripheral neuropathy | + + documented in this encounter"
--- OUTSIDE RECORDS SUMMARY | ~2019-05-02 | XMS | Encounter Summary ---
Demographics + + + | Address | [address] | | | [place] [address] | + + + | Home Phone [...] + | Author | [facility] | | | and Khurramana | + + + | Organization | [facility] | | | and [place] [...] Team Providers + +------+ + | Care Injection Operator Name | Role | Phone | [...] [place] | | | | | | [place], | [address] [place] | | | | | | [place] | [place], [place] | | | | | | [address] | [address] | | | | | | Phone: | Phone: | | | | | | [phone] | [phone] | | | | | | Fax: | Fax: | | | | | | [phone] | [phone] | +--------+--------+ + + + + Encounter Details +--------+---------+ + + + | Date | Type | Department | Care Team | Description | +--------+---------+ + + + | 04// | Office | [facility] | Gregor Mccord MD | Choledocholithiasis | | 2017 | Visit | GASTROENTEROLOGY | [address], [place] | (Primary Dx) | | | | [address] [place] | [address] [place], [place] | | | | | [address] [place], [place] | [address] | | | | | [address] | | | | | | [phone] | | | +--------+---------+ + + + [...] respect to choledocholithiasis outside records are r albin The patient on August 07, 2016 underwent [...] 3 Years of Education: 12 Occupational History [employer] Social History Main Topics Smoking status: [...] | | | | | [place] [address] | | | | | | [phone] | | | | | | | | +--------+---------+ + + + | 06/30/ | Office | Cardiology | Smitha Griffin DO | | | 2019 | Visit | | [address] | | | | | | [place] | | | | | | [address] | | | | | | | | +--------+---------+ + + + documented as of this encounter Visit Diagnoses + + | Diagnosis | + + | Choledocholithiasis - Primary Calculus of bile duct without mention of cholecystitis | | or obstruction | + + documented in this encounter
--- OUTSIDE RECORDS SUMMARY | ~2019-05-02 | XMS | Encounter Summary ---
Demographics + + + | Address | [address] | | | [place] [address] | + + + | Home Phone | | + + + | Preferred Language | Unknown | + + + | Marital Status | | + + + | Tenriism Affiliation | 1077 | + + + | Race | Unknown | + + + | Ethnic Group | Unknown | + + + Author + + + | Author | [facility] | | | and Khurramana | + + + | Organization | [facility] [...] Team Providers + +------+ + | Care Public Safety Police Name | Role | Phone | + [...] 2016 | | GASTROENTEROLOGY | [address] | | | | | [address] | [address] [place] | | | | | [address] [place] | [address] | | | | | [address] | | | | | | [phone] | | | +--------+ + + + [...] [address] | | | | | | [place] [address] | | | | | | [phone] | | | | | | | | +--------+---------+ + + + | 06/30/ | Office | Cardiology | Smitha Griffin DO | | | 2019 | Visit | | [address] | | | | | | [place] | | | | | | [address] | | | | | | | | +--------+---------+ + + + documented as of this encounter Visit Diagnoses Not on filedocumented in this encounter"
--- OUTSIDE RECORDS SUMMARY | ~2019-05-02 | XMS | Encounter Summary ---
Demographics + + + | Address | [address] | | | [place] [address] | + + + | Home Phone | | + + + | Preferred Language | Unknown | + + + | Marital Status | | + + + | Druze Affiliation | 1077 | + + + | Race | Unknown | + + + | Ethnic Group | Unknown | + + + Author + + + | Author | [facility] | | | and Khurramana | + + + | Organization | 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
--- OUTSIDE RECORDS SUMMARY | ~2019-05-02 | XMS | Encounter Summary ---
Demographics + + + | Address | [address] | | | [place] [address] | + + + | Home Phone | | + + + | Preferred Language | Unknown | + + + | Marital Status | | + + + | Church Affiliation | Unknown | + + + | Race | White | + + + | Ethnic Group | Not or | + + + Author + + + | Author | [facility] | + + + | Organization | [facility] | + + + | Address [...] Team Providers + +------+ + | Care Caramel Maker Name | Role | Phone | + +------+ + PCP | Unavailable | + +------+ + Encounter Details +--------+ + + + + | Date | Type | Department | Care Team | Description | +--------+ + + + + | 03/17/ | Hospital | Dermatopathology | | | | 2017 | Encounter | [address] | | | | | | Mailcode: CH16D | | | | | | [facility] | | | | | | and Healing, | | | | | | Building [address], 5th | | | | | | Floor [place], [place] | | | | | | [address] | | | | | | [phone] | | | +--------+ + + + [...] + | DERM PATHOLOGY | Routin | 03/17/2017 | Other melanin | Results for this | | | e | | hyperpigmentation | procedure are in the | | | | | | results section. | + +--------+ + + + documented in this encounter Results DERM PATHOLOGY (03/17/2017) + + + + + + | Component | Value | Ref Range | Performed | Pathologist | | | | | At | Signature | + + + + + + | DERMATOPATH | SOURCE OF SPECIMEN:A Lt. | | [facility] | | | OLOGY(WET | jawline, shave biopsy | | DERMATOPATH | | | MNT) | CLINICAL | | OLOGY | | | | DESCRIPTION:10 x 8 mm | | | | | | opaque, atrophic, | | | | | | telangiectatic papule; | | | | | | r/o BCC vs | | | | | | otherneoplasm. | | | | | | GROSS | | | | | | DESCRIPTION:Received in | | | | | | formalin is a specimen | | | | | | labeled Blade Scarlet:A: | | | | | | Specimen is labeled "L | | | | | | jawline" and consists of | | | | | | an irregular shave | | | | | | ofpapular white-mitchell | | | | | | skin, [id number]. The | | | | | | surgical margin is inked | | | | | | blue; thetissue is | | | | | | quadrisected, and | | | | | | entirely submitted in | | | | | | cassette A1. | | | | | | MICROSCOPIC | | | | | | DESCRIPTION:There is a | | | | | | thinned epidermis, with | | | | | | melanin along the basal | | | | | | layer, beneathwhich is | | | | | | marked solar elastosis. | | | | | | DIAGNOSIS:SOLAR | | | | | | LENTIGO. | | | | | | KP:jb10 My | | | | | | [...] diagnosis. | | | | | | Electronically signed | | | | | | by: Nolan Robledo | | | | | | YrnPathologistDate | | | | | | Completed: 03/19/2017 | | | | | | 5:25PM | | | | + + + [...] [facility] | Mailcode CH5D, [address] | [place] [address] | | | DERMATOPATHOLOGY | [address] | | | + + + + + documented in this encounter Visit Diagnoses + + | Diagnosis | + + | Other melanin hyperpigmentation | + + documented in this encounter
--- OUTSIDE RECORDS SUMMARY | ~2019-05-02 | XMS | Encounter Summary ---
Demographics + + + | Address | [address] | | | [place] [address] | + + + | Home Phone | | + + + | Preferred Language | Unknown | + + + | Marital Status | | + + + | Mu-Ism Affiliation | 1077 | + + + | Race | Unknown | + + + | Ethnic Group | Unknown | + + + Author + + + | Author | [facility] | | | and Khurramana | + + + | Organization | [facility] | | | and [place] [...] Providers + +------+ + | Care Service Station Equipment Mechanic Name | Role | Phone | [...] + + | 03/29/ | Surgery | [facility] | Mark [place] | Posterior Total Hip | | 2019 | | [facility] | MD [address] | Arthroplasty | | | | OPERATING RO[address] | [address] | | | | | [address] | [place] [address] | | | | | [place], [place] | [phone] | | | | | [address] | | | | | | [phone] | | | +--------+---------+ + + + [...] Procedure: ERCP; Surgeon: Gregor Mccord MD; Location: [facility] MEDICAL PROCEDURE UNIT ERCP N/A 10/14/2016 Procedure: ERCP w/ stent pull; Surgeon: Gregor Mccord MD; Location: [facility] MEDICAL PROCEDU RE UNIT HARDWARE REMOVAL Left 03/29/2019 Procedure: REMOVE HARDWARE LOWER EXTREMITY-HIP; Surgeon: Mark [place] MD; Location : [facility] MAIN OR PARTIAL HYSTERECTOMY 1971 RECTOCELE REPAIR 1991 TAILBONE 1973 broken, partial removal TONSILLECTOMY 1938 TOTAL HIP ARTHROPLASTY Left 03/29/2019 Procedure: Posterior Total Hip Arthroplasty; Surgeon: Mark [place] MD; Location: [facility] MAIN OR Allergies Allergen Reactions [...] Code Follow up: Gus Orozco PA-C [address] [facility] [address] In 2 weeks Discharge Medications Changed Medications [...] | | | | | | | ([facility]) | | | | | | | MISC | | | | | | + + + +---------+ + + | Chantilly-3 Fatty | Take 1 tablet by | [...] might be different fr om the original. [facility] Progress Note Primary Care Physician: Susan [...] | | | | | [place] [address] | | | | | | [phone] | | | | | | | | +--------+---------+ + + + | 06/30/ | Office | Cardiology | Smitha Griffin DO | | | 2019 | Visit | | [address] | | | | | | [place] | | | | | | [address] | | | | | | | [...] | | | POC | performed at [facility];[address] | | LABORATORY | | | | [address];[place], [place] | | | | | | [address] | | | | + + + + + + + + | Specimen | + + | | + + + + + + + | Performing | Address | City/State/Zipcode | Phone Number | | Organization | | | | + + + + + | [facility] | [address] | [place] [address] | [phone] | + + + + + POC [...] | | | POC | performed at [facility];[address] | | LABORATORY | | | | [address];[place] | | | | | | [address] | | | | + + + + + + + + | Specimen | + + | | + + + + + + + | Performing | Address | City/State/Zipcode | Phone Number | | Organization | | | | + + + + + | [facility] | [address] | [place] [address] | [phone] | + + + + + POC Glucose (03/30/2019 8:57 PM PDT) + + + + + + | Component | Value | Ref Range | Performed | Pathologist | | | | | At | Signature | + + + + + + | Glucose, | 98Comment: Testing | 65 - 99 mg/dL | [facility] | | | POC | performed at [facility];[address] | | LABORATORY | | | | [address];[place] | | | | | | [address] | | | | + + + + + + + + | Specimen | + + | | + + + + + + + | Performing | Address | City/State/Zipcode | Phone Number | | Organization | | | | + + + + + | [facility] | [address] | [place] [address] | [phone] | + + + + + Hemoglobin [...] [facility] | | | | performed at [facility];[address] | | LABORATORY | | | | [address];[place] | | | | | | [address] | | | | + + + + + + + + | Specimen | + + | Blood | + + + + + + + | Performing | Address | City/State/Zipcode | Phone Number | | Organization | | | | + + + + + | [facility] | [address] | [place] [address] | [phone] | + + + + + POC [...] | | | POC | performed at [facility];[address] | | LABORATORY | | | | [address];[place], [place] | | | | | | [address] | | | | + + + + + + + + | Specimen | + + | | + + + + + + + | Performing | Address | City/State/Zipcode | Phone Number | | Organization | | | | + + + + + | [facility] | [address] | [place] [address] | [phone] | + + + + + POC [...] | | | POC | performed at [facility];[address] | | LABORATORY | | | | [address];[place], [place] | | | | | | [address] | | | | + + + + + + + + | Specimen | + + | | + + + + + + + | Performing | Address | City/State/Zipcode | Phone Number | | Organization | | | | + + + + + | [facility] | [address] | [place] [address] | [phone] | + + + + + XR [...] | | | POC | performed at [facility];[address] | | LABORATORY | | | | [address];[place], [place] | | | | | | [address] | | | | + + + + + + + + | Specimen | + + | | + + + + + + + | Performing | Address | City/State/Zipcode | Phone Number | | Organization | | | | + + + + + | [facility] | [address] | [place] [address] | [phone] | + + + + + Type [...] + + + | [facility] | [id number] | | [facility] | | | | | | LABORATORY | | + + + + + + | [facility] | Testing performed at | | [facility] | | | | [facility];[address] | | LABORATORY | | | | [address];[place] [address] | | | | + + + + + + + + | Specimen | + + | Blood | + + + + + + + | Performing | Address | City/State/Zipcode | Phone Number | | Organization | | | | + + + + + | [facility] | [address] | [place] [address] | [phone] | + + + + + POC Glucose (03/29/2019 6:42 AM PDT) + + + + + + | Component | Value | Ref Range | Performed | Pathologist | | | | | At | Signature | + + + + + + | Glucose, | 96Comment: Testing | 65 - 99 mg/dL | [facility] | | | POC | performed at [facility];[address] | | LABORATORY | | | | [address];[place], [place] | | | | | | [address] | | | | + + + + + + + + | Specimen | + + | | + + + + + + + | Performing | Address | City/State/Zipcode | Phone Number | | Organization | | | | + + + + + | [facility] | [address] | [place] [address] | [phone] | + + + + + documented [...]
--- OUTSIDE RECORDS SUMMARY | ~2019-05-02 | XMS | Encounter Summary ---
Demographics + + + | Address | [address] | | | [place] [address] | + + + | Home Phone [...] + | Author | [facility] | | | and Khurramana | + + + | Organization | [facility] | | | and [...] Team Providers + +------+ + | Care Laser/Electro Optics Technician Name | Role | Phone | [...] | | Physical | Diagnoses | | [place], | | | | Medicine and | Disturbance | Ray, | MD Malcom | | | | Rehabilitatio | of skin | [place], | [address] | | | | n | sensation | PA-C [address] | [address] | | | | | Procedures | [address] | [place] | | | | | HI MOTOR | [place] | [address] Phone: | | | | | &/SENS 1-2 | [address] | [phone] | | | | | NRV CNDJ | Phone: | Fax: | | | | | PRECONF | [phone] | [phone] | | | | | ELTRODE LIMB | Fax: | | | | | | HI NEEDLE | [phone] | | | | | | EMG EA | | | | | | | EXTREMITY | | | | | | | W/PARASPINL | | | | | | | AREA LIMITED | | | | | | | HI EMG, | | | | | | | NEEDLE, TWO | | | | | | | LIMBS HI | | | | | | | MOTOR &/SENS | | | | | | | 3-4 NRV | | | | | | | CNDJ PRECONF | | | | | | | ELTRODE | | | | | | | LIMB HI | | | | | | | MOTOR &/SENS | | | | | | | 5-6 NRV | | | | | | | CNDJ PRECONF | | | | | | | ELTRODE | | | | | | | LIMB HI | | | | | | | NEEDLE EMG | | | | | | | EA EXTREMTY | | | | | | | W/PARASPINL | | | | | | | AREA | | | | | | | COMPLETE HI | | | | | | | [...] | visit | PHYSIATRY [address] | [address] | polyneuropathy (HCC) | | | | [place], | [address] [place] | (Primary Dx); Hyper | | | | [place] [address] | [id number] | reflexia | | | | [phone] | | | +--------+ + + + [...] + + + documented in this encounter Plan of Treatment [...] | | | | | [place] [address] | | | | | | [phone] | | | | | | | | +--------+---------+ + + + | 06/30/ | Office | Cardiology | Smitha Griffin DO | | | 2019 | Visit | | [address] | | | | | | [place] | | | | | | [address] | | | | | | | [...] | e | 2:11 PM | polyneuropathy (HCC) | procedure are in the | | | | PDT | | results section. | + +--------+ + + + documented in this encounter Results EMG Study (02/26/2016 2:11 PM PDT) + + + | Narrative | Performed At | + + + | Malcom Mojica MD 02/26/2016 14:11 [facility] | | | Physician Group Mus[facility] Sp[facility], Physiatry [place] | | | [facility] [address] [place] [address] Ph: | | | Test Date: 02/25/2016 | | | Patient Name: Scarlet Murguia : 1935 Physician: Tomás Mojica, | | | MR #: [id number] Sex: Female Referring Physician: [place] | | [...] | | | testing done by a lead refiner and she was diagnosed with a | [...] Malcom Mojica MD Diplomate, | | | [place] [employer] and Rehabilitation. | [...] ST. | [address] | [place] | [phone] | | [facility] | | [address] | | | - LABORATORY | | [...] | | | | | [place], [place] | | | | | | [address] | | | | + + + [...] | [address] | [place] [address] | [phone] | + + + + + Protein [...] ELP Gamma | 9.7 | % | [facility] | | | Globulin % | | | [facility] | | | | | | MEDICAL [...] MD02-27-16 | [facility] | |02-27-16 | [facility] | | | - LABORATORY | + + + + + + + + | Performing | Address | City/State/Zipcode | Phone Number | | Organization | | | | + + + + + | [facility] | [address] | [place] | [phone] | | [facility] | | [address] | | | - LABORATORY | | [...] | | | | | | Performed: [facility], [address] | | | | | | [address], [place] | | | | | | [address] | | | | + + + + + + + + | Specimen | + + | Blood specimen | | (specimen) | + + + + + + + | Performing | Address | City/State/Zipcode | Phone Number | | Organization | | | | + + + + + | [facility] | [address] | [place] [address] | [phone] | + + + + + Methylmalonic [...] [place] | | | | | | [address] | | | | + + + + + + + + | Specimen | + + | Blood specimen | | (specimen) | + + + + + + + | Performing | Address | City/State/Zipcode | Phone Number | | Organization | | | | + + + + + | [facility] | [address] | [place] [address] | [phone] | + + + + + Vitamin [...] ST. | [address] | [place] | [phone] | | [facility] | | [address] | | | - LABORATORY | | | | + + + + + documented in this encounter Visit Diagnoses + + | Diagnosis | + + | Peripheral polyneuropathy - Primary Unspecified hereditary and idiopathic peripheral | | neuropathy | + + | Hyper reflexia Abnormal reflex | + + documented in this encounter
--- OUTSIDE RECORDS SUMMARY | ~2019-05-02 | XMS | Encounter Summary ---
Demographics + + + | Address | [address] | | | [place] [address] | + + + | Home Phone [...] | Author | [facility] | | | and Khurramana | + + + | Organization | [facility] | | | and [place] [...] Team Providers + +------+ + | Care Electric Tripper Machine Operator Name | Role | Phone [...] + + | 03/29/ | Surgery | [facility] | Mark oMntana | Posterior Total Hip | | 2019 | | [facility] | MD Alaina [address] | Arthroplasty | | | | OPERATING RO[address] | [place] | | | | | [place] | [place] [address] | | | | | [place], [place] | [phone] | | | | | [address] | | | | | | [phone] | | | +--------+---------+ + + + [...] Procedure: ERCP; Surgeon: Gregor Mccord MD; Location: [facility] MEDICAL PROCEDURE UNIT ERCP N/A 10/14/2016 Procedure: ERCP w/ stent pull; Surgeon: Gregor Mccord MD; Location: [facility] MEDICAL PROCEDU RE UNIT HARDWARE REMOVAL Left 03/29/2019 Procedure: REMOVE HARDWARE LOWER EXTREMITY-HIP; Surgeon: Mark [place] MD; Location : [facility] MAIN OR PARTIAL HYSTERECTOMY 1971 RECTOCELE REPAIR 1991 TAILBONE 1973 broken, partial removal TONSILLECTOMY 1938 TOTAL HIP ARTHROPLASTY Left 03/29/2019 Procedure: Posterior Total Hip Arthroplasty; Surgeon: Mark [place] MD; Location: [facility] MAIN OR Allergies Allergen Reactions [...] Code Follow up: Gus Orozco PA-C [address] [facility] [address] In 2 weeks Discharge Medications Changed Medications [...] | | | | | | | ([facility] | | | | | | | MISC | | | | | | + + + +---------+ + + | Poneto-3 Fatty | Take 1 tablet by | [...] might be different fr om the original. [facility] Progress Note Primary Care Physician: [...] | | | | | [place] [address] | | | | | | [phone] | | | | | | | | +--------+---------+ + + + | 06/30/ | Office | Cardiology | Smitha Griffin DO | | | 2019 | Visit | | [address] | | | | | | [place] | | | | | | [id number] | | | | | | | [...] | | | POC | performed at [facility];[address] | | LABORATORY | | | | [address];[place], [place] | | | | | | [address] | | | | + + + + + + + + | Specimen | + + | | + + + + + + + | Performing | Address | City/State/Zipcode | Phone Number | | Organization | | | | + + + + + | [facility] | [address] | [place] [address] | [phone] | + + + + + POC [...] | | | POC | performed at [facility];[address] | | LABORATORY | | | | [address];[place] | | | | | | [address] | | | | + + + + + + + + | Specimen | + + | | + + + + + + + | Performing | Address | City/State/Zipcode | Phone Number | | Organization | | | | + + + + + | [facility] | [address] | [place] [address] | [phone] | + + + + + POC Glucose (03/30/2019 8:57 PM PDT) + + + + + + | Component | Value | Ref Range | Performed | Pathologist | | | | | At | Signature | + + + + + + | Glucose, | 98Comment: Testing | 65 - 99 mg/dL | [facility] | | | POC | performed at [facility];[address] | | LABORATORY | | | | [address];[place] | | | | | | [address] | | | | + + + + + + + + | Specimen | + + | | + + + + + + + | Performing | Address | City/State/Zipcode | Phone Number | | Organization | | | | + + + + + | [facility] | [address] | [place] [address] | [phone] | + + + + + Hemoglobin [...] [facility] | | | | performed at [facility];[address] | | LABORATORY | | | | [address];[place] | | | | | | [address] | | | | + + + + + + + + | Specimen | + + | Blood | + + + + + + + | Performing | Address | City/State/Zipcode | Phone Number | | Organization | | | | + + + + + | [facility] | [address] | [place] [address] | [phone] | + + + + + POC [...] | | | POC | performed at [facility];[address] | | LABORATORY | | | | [address];[place], [place] | | | | | | [address] | | | | + + + + + + + + | Specimen | + + | | + + + + + + + | Performing | Address | City/State/Zipcode | Phone Number | | Organization | | | | + + + + + | [facility] | [address] | [place] [address] | [phone] | + + + + + POC [...] | | | POC | performed at [facility];[address] | | LABORATORY | | | | [address];[place], [place] | | | | | | [address] | | | | + + + + + + + + | Specimen | + + | | + + + + + + + | Performing | Address | City/State/Zipcode | Phone Number | | Organization | | | | + + + + + | [facility] | [address] | [place] [address] | [phone] | + + + + + XR [...] | | | POC | performed at [facility];[address] | | LABORATORY | | | | [address];[place], [place] | | | | | | [address] | | | | + + + + + + + + | Specimen | + + | | + + + + + + + | Performing | Address | City/State/Zipcode | Phone Number | | Organization | | | | + + + + + | [facility] | [address] | [place] [address] | [phone] | + + + + + Type [...] + + + | [facility] | [id number] | | [facility] | | | | | | LABORATORY | | + + + + + + | BB BAND | Testing performed at | | [facility] | | | | [facility];[address] | | LABORATORY | | | | Sam;[place] [address] | | | | + + + + + + + + | Specimen | + + | Blood | + + + + + + + | Performing | Address | City/State/Zipcode | Phone Number | | Organization | | | | + + + + + | [facility] | [address] | [place] [address] | [phone] | + + + + + POC Glucose (03/29/2019 6:42 AM PDT) + + + + + + | Component | Value | Ref Range | Performed | Pathologist | | | | | At | Signature | + + + + + + | Glucose, | 96Comment: Testing | 65 - 99 mg/dL | [facility] | | | POC | performed at [facility];[address] | | LABORATORY | | | | [address];[place], [place] | | | | | | [address] | | | | + + + + + + + + | Specimen | + + | | + + + + + + + | Performing | Address | City/State/Zipcode | Phone Number | | Organization | | | | + + + + + | [facility] | [address] | [place] [address] | [phone] | + + + + + documented [...]
--- OUTSIDE RECORDS SUMMARY | ~2019-05-02 | XMS | Encounter Summary ---
Demographics + + + | Address | [address] | | | [place] [address] | + + + | Home Phone [...] | [facility] [place] | | | and Khurramana | + + + | Organization | [facility] [place] | | | and [place] | [...] Team Providers + +------+ + | Care Nurse Aide Evaluator Name | Role | Phone | + +------+ + | Susan Leos | PCP | | | PA-C | | | + +------+ + Encounter Details +--------+ + + + + | Date | Type | Department | Care Team | Description | +--------+ + + + + | 03/14/ | [facility] | [facility] | Mark [place] | Left hip pain | | 2018 | Encounter | [address] | MD [address] | | | | | [address] | [place] | | | | | [place] | [place] [address] | | | | | [address] | [phone] | | | | | [phone] | | | +--------+ + + + [...] | | | | | | | ([facility]) | | | | | | | MISC | | | | | | + + + +---------+ + + | Kingston-3 Fatty | Take 1 tablet by | [...] | | | | | [place] [address] | | | | | | [phone] | | | | | | | | +--------+---------+ + + + | 06/30/ | Office | Cardiology | mSitha Griffin DO | | | 2019 | Visit | | [address] | | | | | | [place] | | | | | | [address] | | | | | | | [...] to the right. Electronically signed by: Mark Monatna MD | | | 03/29/2019 15:09 | [...]
--- OUTSIDE RECORDS SUMMARY | ~2019-05-02 | XMS | Encounter Summary ---
Demographics + + + | Address | [address] | | | [place] [address] | + + + | Home Phone [...] | Author | [facility] [place] | | | and Khurramana | + + + | Organization | [facility] | | | and [...] Team Providers + +------+ + | Care Char Conveyor Tender Cellar Name | Role | Phone | + [...] + + | 03/29/ | Anesthesia | [facility] | Michela Eli | | | 2019 | Event | [facility] | MD Jena [address] | | | | | OPER[address] | [place], [place] | | | | | [facility] | [address] | | | | | [place], [place] | | | | | | [address] | | | | | | [phone] | | | +--------+ + + + + Anesthesia Record + + + + + | Procedure Name | Responsible | Anesthesia Start | Anesthesia Stop Time | | | Anesthesiologist | Time | | + + + + + | Posterior Total Hip | Michelaelfego Eli, | 03/29/19726 | 03/29/19913 | | [...] +----+---+ + + | | 0 | [place] | | | | 8 | 43-degrees [...] Forearm; | 03/29/19 0700 by | 03/30/19 0431 by | | eral | osrv-ped-dsnsce catheter system; | Paula Young RN | [...] | | | | | [place] [address] | | | | | | [phone] | | | | | | | | +--------+---------+ + + + | 06/30/ | Office | Cardiology | Smitha Griffin DO | | | 2019 | Visit | | [address] | | | | | | [place] | | | | | | [address] | | | | | | | [...]
--- OUTSIDE RECORDS SUMMARY | ~2019-05-02 | XMS | Encounter Summary ---
Demographics + + + | Address | [address] | | | [place] [address] | + + + | Home Phone | | + + + | Preferred Language | Unknown | + + + | Marital Status | | + + + | Jewish Affiliation | 1077 | + + + | Race | Unknown | + + + | Ethnic Group | Unknown | + + + Author + + + | Author | [facility] [place] | | | and Khurramana | + + + | Organization | [facility] | | | and [...] Team Providers + +------+ + | Care Auto Electrical Technician Name | Role | Phone | [...] | | | | | [address] [facility] | | | | | | [address] [place] | | | | | | [address] | | | | | | [phone] | | | +--------+ + + + [...] [place] | | | | | | [place] [address] | | | | | | [phone] | | | | | | | | +--------+---------+ + + + | 06/30/ | Office | Cardiology | Smitha Griffin DO | | | 2019 | Visit | | [address] | | | | | | [place] | | | | | | [address] | | | | | | | | +--------+---------+ + + + documented as of this encounter Visit Diagnoses Not on filedocumented in this encounter"
--- OUTSIDE RECORDS SUMMARY | ~2019-05-02 | XMS | Encounter Summary ---
Demographics + + + | Address | [address] | | | [place] [address] | + + + | Home Phone [...] [facility] | | | and Khurramana | + + + | Organization | [facility] | | | and [place] [...] Team Providers + +------+ + | Care Line Manager Name | Role | Phone | [...] 2016 | | GASTROENTEROLOGY | [address], [place] | (Scheduled ERCP) | | | | [address] [place] | [address] [place], [place] | | | | | [address] [place], [place] | [address] | | | | | [address] | | | | | | [phone] | | | +--------+ + + + [...] | | | | | [place] [address] | | | | | | [phone] | | | | | | | | +--------+---------+ + + + | 06/30/ | Office | Cardiology | Smitha Griffin DO | | | 2019 | Visit | | [address] | | | | | | [place] | | | | | | [address] | | | | | | | | +--------+---------+ + + + documented as of this encounter Visit Diagnoses + + | Diagnosis | + + | Common bile duct stone - Primary Calculus of bile duct without mention of | | cholecystitis or obstruction | + + documented in this encounter"
--- OUTSIDE RECORDS SUMMARY | ~2019-05-02 | XMS | Encounter Summary ---
Demographics + + + | Address | [address] | | | [place] [address] | + + + | Home Phone | | + + + | Preferred Language | Unknown | + + + | Marital Status | | + + + | Baptism Affiliation | 1077 | + + + | Race | Unknown | + + + | Ethnic Group | Unknown | + + + Author + + + | Author | [facility] | | | and Khurramana | + + + | Organization | [facility] | | | and [place] [...] Team Providers + +------+ + | Care Slip Sheeter Name | Role | Phone | + [...] [place] | | | | | | [address] | | | | | | [phone] | | | +--------+ + + + [...] [place] | | | | | | [facility] [address] | | | | | | [phone] | | | | | | | | +--------+---------+ + + + | 06/30/ | Office | Cardiology | Smitha Griffin DO | | | 2019 | Visit | | [address] | | | | | | [place] | | | | | | [address] | | | | | | | | +--------+---------+ + + + documented as of this encounter Visit Diagnoses + + | Diagnosis | + + | Other screening mammogram | + + documented in this encounter"
--- OUTSIDE RECORDS SUMMARY | ~2019-05-02 | XMS | Encounter Summary ---
Demographics + + + | Address | [address] | | | [place] [address] | + + + | Home Phone [...] | [facility] | | | and Khurramana | + + + | Organization | [facility] | | | and [place] [...] Team Providers + +------+ + | Care Hiv Prevention Specialist Name | Role | Phone | [...] | | | | | [address] [facility] | | | | | | [address] [place] | | | | | | [address] | | | | | | [phone] | | | +--------+ + + + [...] [address] | | | | | | [address] [place] | | | | | | [place] [address] | | | | | | [phone] | | | | | | | | +--------+---------+ + + + | 06/30/ | Office | Cardiology | Smitha Griffin DO | | | 2019 | Visit | | [address] | | | | | | [place] | | | | | | [address] | | | | | | | | +--------+---------+ + + + documented as of this encounter Visit Diagnoses Not on filedocumented in this encounter"
--- OUTSIDE RECORDS SUMMARY | ~2019-05-02 | XMS | Encounter Summary ---
Demographics + + + | Address | [address] | | | [place] [address] | + + + | Home Phone [...] + | Author | [facility] [place] | | | and Khurramana | + + + | Organization | [facility] | | | and [place] [...] Team Providers + +------+ + | Care Garbage Worker Name | Role | Phone | [...] [place] | | | | | | [address] | | | | | | [phone] | | | +--------+ + + + [...] [place] | | | | | | [place] [address] | | | | | | [phone] | | | | | | | | +--------+---------+ + + + | 06/30/ | Office | Cardiology | Smitha Griffin DO | | | 2019 | Visit | | [address] | | | | | | [place] | | | | | | [address] | | | | | | | | +--------+---------+ + + + documented as of this encounter Visit Diagnoses + + | Diagnosis | + + | Other screening mammogram | + + documented in this encounter"
--- OUTSIDE RECORDS SUMMARY | ~2019-05-02 | XMS | Encounter Summary ---
Demographics + + + | Address | [address] | | | [place] [address] | + + + | Home Phone [...] + | Author | [facility] | | | and Khurramana | + + + | Organization | [facility] | [...] Team Providers + +------+ + | Care Site Worker Name | Role | Phone | + +------+ + | Susan Leos | PCP | | | PA-C | | | + +------+ + Encounter Details +--------+ + + + + | Date | Type | Department | Care Team | Description | +--------+ + + + + | 09/24/ | Episode | [facility] [place] | Sonali Garcia | | | 2016 | Changes | GASTROENTEROLOGY | ROBI Foley | | | | | [address] [facility] | | | | | | [address] [place] | | | | | | [address] | | | | | | [phone] | | | +--------+ + + + [...] | | | | | [place] [address] | | | | | | [phone] | | | | | | | | +--------+---------+ + + + | 06/30/ | Office | Cardiology | Smitha Griffin DO | | | 2019 | Visit | | [address] | | | | | | [place] | | | | | | [id number] | | | | | | | | +--------+---------+ + + + documented as of this encounter Visit Diagnoses Not on filedocumented in this encounter"
--- OUTSIDE RECORDS SUMMARY | ~2019-05-02 | XMS | Encounter Summary ---
Demographics + + + | Address | [address] | | | [place] [address] | + + + | Home Phone | | + + + | Preferred Language | Unknown | + + + | Marital Status | | + + + | Rastafarian Affiliation | 1077 | + + + | Race | Unknown | + + + | Ethnic Group | Unknown | + + + Author + + + | Author | [facility] | | | and Khurramana | + + + | Organization | [facility] | | | and [place] [...] Team Providers + +------+ + | Care Multi Spindle Operator Name | Role | Phone | + +------+ + | Susan Leos | PCP | | | PADex | | | + +------+ + Reason for Visit + + + | Reason | Comments | + + + | Appointment | biliary stent pull | + + + Encounter Details +--------+ + + + + | Date | Type | Department | Care Team | Description | +--------+ + + + + | 09/29/ | Telephone | [facility] [place] | Gregor Mccord MD | Appointment (biliary | | 2017 | | GASTROENTEROLOGY | [address], [place] | stent pull) | | | | [address] [place] | [address] [place], [place] | | | | | [address] [place], [place] | [address] | | | | | [address] | | | | | | [phone] | | | +--------+ + + + [...] | | | | | [place] [address] | | | | | | [phone] | | | | | | | | +--------+---------+ + + + | 06/30/ | Office | Cardiology | Smitha Griffin DO | | | 2019 | Visit | | [address] | | | | | | [place] | | | | | | [address] | | | | | | | [...]
--- OUTSIDE RECORDS SUMMARY | ~2019-05-02 | XMS | Encounter Summary ---
Demographics + + + | Address | [address] | | | [place] [address] | + + + | Home Phone | | + + + | Preferred Language | Unknown | + + + | Marital Status | | + + + | Hinduism Affiliation | 1077 | + + + | Race | Unknown | + + + | Ethnic Group | Unknown | + + + Author + + + | Author | [facility] [place] | | | and Khurramana | + + + | Organization | [facility] | | | and [...] Team Providers + +------+ + | Care Lumber Scaler Name | Role | Phone | + [...] | | | | | | | [place] ERCP DX | | | | | | | COLLECTION | | | | | | | SPECIMEN | | | | | | | BRUSHING/WAS | | | | | | | [place] | | | | | | | [...] | | | | | [address] | [place] | | | | | [place] | [address] | | | | | [address] | | | | | | [phone] | | | +--------+ + + + [...] [address] | | eral | Forearm; yxdh-zct-useicq catheter | Patsy Dixon RN | Delicia [...] | | | | | [place] [address] | | | | | | [phone] | | | | | | | | +--------+---------+ + + + | 06/30/ | Office | Cardiology | Smitha Griffin DO | | | 2019 | Visit | | [address] | | | | | | [place] | | | | | | [address] | | | | | | | [...]
--- OUTSIDE RECORDS SUMMARY | ~2019-05-02 | XMS | Encounter Summary ---
Demographics + + + | Address | [address] | | | [place] [address] | + + + | Home Phone [...] Author | [facility] | | | and Khurramana | + + + | Organization | [facility] | | | and [...] Team Providers + +------+ + | Care Feather Renovator Name | Role | Phone | [...] | | | | | | | [place] ERCP DX | | | | | | | COLLECTION | | | | | | | SPECIMEN | | | | | | | BRUSHING/WAS | | | | | | | [place] | | | | | | | ANESTH,UGI | | | | | | | ENDOSCOPY | | | | | | | ERCP | | | +--------+--------+ + + + + Encounter Details +--------+ + + + + | Date | Type | Department | Care Team | Description | +--------+ + + + + | 05// | Hospital | [facility] | Gregor Mccord MD | | | 2017 | Encounter | MED CTR XRAY [address] | [address] | | | | | [place] | [address] [place], [place] | | | | | [place] [address] | [address] | | | | | [phone] | | | +--------+ + + + [...] + + + +---------+ + + | Maud-3 Fatty | Take 1 tablet by | [...] | | | | | [place] [address] | | | | | | [phone] | | | | | | | | +--------+---------+ + + + | 06/30/ | Office | Cardiology | Smitha Griffin DO | | | 2019 | Visit | | [address] | | | | | | [place] | | | | | | [id number] | | | | | | | [...]
--- OUTSIDE RECORDS SUMMARY | ~2019-05-02 | XMS | Encounter Summary ---
Demographics + + + | Address | [address] | | | [place] [address] | + + + | Home Phone | | + + + | Preferred Language | Unknown | + + + | Marital Status | | + + + | Nondenominational Affiliation | 1077 | + + + | Race | Unknown | + + + | Ethnic Group | Unknown | + + + Author + + + | Author | [facility] | | | and Khurramana | + + + | Organization | [facility] | | | and [place] [...] Team Providers + +------+ + | Care Plant And Equipment Worker Name | Role | Phone | [...] | Gregor Brock MD | [address] | | | | | abnormality | [address] | [place], | | | | | Procedures | [address], [place] | [place] | | | | | MRI MRCP | [address] [place] | [address] | | | | | Liver wo | [place], [place] | Phone: | | | | | [place] | [address] | [phone] | | | | | MRI, | Phone: | Fax: | | | | | ABDOMEN | [phone] | [phone] | | | | | (MRI) | Fax: | | | | | | | [phone] | | +--------+--------+ + + + + [...] | Gregor Brock MD | [address] | | | | | abnormality | [address] | [place], | | | | | Procedures | [place], [place] | [place] | | | | | MRI MRCP | [address] [place] | [address] | | | | | Liver wo | [place], [place] | Phone: | | | | | [place] | [address] | [phone] | | | | | MRI, | Phone: | Fax: | | | | | ABDOMEN | [phone] | [phone] | | | | | (MRI) | Fax: | | | | | | | [phone] | | +--------+--------+ + + + + Encounter Details +--------+ + + + + | Date | Type | Department | Care Team | Description | +--------+ + + + + | 10/30/ | Hospital | [facility] | Gregor Mccord MD | Bile duct | | 2017 | Encounter | MED CTR MRI [address] | [address], [place] | abnormality | | | | [place], | [address] [place] | | | | | [place] [address] | [address] | | | | | [phone] | | | +--------+ + + + [...] | | | | | | | ([facility]) | | | | | | | MISC | | | | | | + + + +---------+ + + | Magnolia-3 Fatty | Take 1 tablet by | [...] [place] | | | | | | [facility] [address] | | | | | | [phone] | | | | | | | | +--------+---------+ + + + | 06/30/ | Office | Cardiology | Smitha Griffin DO | | | 2019 | Visit | | [address] | | | | | | [place] | | | | | | [address] | | | | | | | [...] JACEK | | 02/11/2016. PROTOCOL: Coronal T2 devops architect, axial T2 devops architect, coronal 3D | [facility] | | respiratory triggered, coronal T2 [...] spine dated | | 02/11/2016.PROTOCOL: Coronal T2 devops architect, axial T2 devops architect, coronal 3D respiratory | | triggered,coronal T2 [...] A few more small subcentimeter | | [id number] cyst are seen within the left kidney [...] [address] | [place] | [phone] | | 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
--- OUTSIDE RECORDS SUMMARY | ~2019-05-02 | XMS | Encounter Summary ---
Demographics + + + | Address | [address] | | | [place] [address] | + + + | Home Phone | | + + + | Preferred Language | Unknown | + + + | Marital Status | | + + + | Pentecostal Affiliation | Unknown | + + + | Race | White | + + + | Ethnic Group | Not or | + + + Author + + + | Author | [facility] | + + + | Organization | [facility] | + + + | Address [...] Team Providers + +------+ + | Care Shrub Grower Name | Role | Phone | + +------+ + PCP | Unavailable | + +------+ + Encounter Details +--------+ + + + + | Date | Type | Department | Care Team | Description | +--------+ + + + + | 03/20/ | Transcribed | Allergy Clinic at | Dictation, Other | Transcribed | | 1996 | | [facility] [address] | | | | | | [address] | | | | | | Mailcode: OP34 [address] | | | | | | [address] | | | | | | [place], | | | | | | [place] [address] | | | | | | [phone] | | | +--------+ + + + [...] as of this encounter Progress Notes Interface, Fire Supervisor In - 07/30/2006 1:06 AM PST [address] [address] or March 20, 1997 AKIRA LEOS MD [facility] [address] [place] [address] RE:Scarlet Murguia MR#:[id number] Leos: We saw Mrs. Scarlet Murguia for a rheumatology consultation at [facility] on March 20, 1997. 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. Sincerely, Damaso Franks M.D. Resident, Internal Medicine TERRY/artemio cc: Samia Montano M.D. Data Security Consultant, Medicine Rheumatology and Arthritis documented in this encounter Plan of Treatment Not on filedocumented as of this encounter Visit Diagnoses Not on filedocumented in this encounter
--- OUTSIDE RECORDS SUMMARY | ~2019-05-02 | XMS | Encounter Summary ---
Demographics + + + | Address | [address] | | | [place] [address] | + + + | Home Phone [...] + | Author | [facility] Neal | | | and Khurramana | + + + | Organization | [facility] Neal | [...] Team Providers + +------+ + | Care Children'S Librarian Name | Role | Phone | + [...] Post-op Question | | 2018 | | [place] [address] | MD Alaina [address] | | | | | [address] [place], [place] | BLVD [address] | | | | | [address] | [place] [address] | | | | | [phone] | [phone] | | | | | | | [...] [address] | | | | | | [place] [address] | | | | | | [phone] | | | | | | | | +--------+---------+ + + + | 06/30/ | Office | Cardiology | Smitha Griffin DO | | | 2020 | Visit | | [address] | | | | | | [place] | | | | | | [address] | | | | | | | | +--------+---------+ + + + documented as of this encounter Visit Diagnoses Not on filedocumented in this encounter"
--- OUTSIDE RECORDS SUMMARY | ~2019-05-02 | XMS | Encounter Summary ---
Demographics + + + | Address | [address] | | | [place] [address] | + + + | Home Phone [...] + + | Author | [facility] Neal | | | and Khurramana | + + + | Organization | [facility] Neal | | | and [place] [...] Providers + +------+ + | Care Refrigeration Plant Operator Name | Role | Phone | [...] | Gregor Brock MD | [address] | | | | | abnormality | [address] | [place], | | | | | Procedures | [place], [place] | [place] | | | | | MRI MRCP | [address] | [address] | | | | | Liver wo | [place], [place] | Phone: | | | | | Contrast [place] | [address] | [phone] | | | | | MRI, | Phone: | Fax: | | | | | ABDOMEN | [phone] | [phone] | | | | | (MRI) | Fax: | | | | | | | [phone] | | +--------+--------+ + + + + [...] | Gregor Brock MD | [address] | | | | | abnormality | [address] | [place], | | | | | Procedures | [place], [place] | [place] | | | | | MRI MRCP | [address] | [address] | | | | | Liver wo | [place], [place] | Phone: | | | | | Contrast [place] | [address] | [phone] | | | | | MRI, | Phone: | Fax: | | | | | ABDOMEN | [phone] | [phone] | | | | | (MRI) | Fax: | | | | | | | [phone] | | +--------+--------+ + + + + Encounter Details +--------+ + + + + | Date | Type | Department | Care Team | Description | +--------+ + + + + | 10/30/ | Hospital | [facility] | Gregor Mccord MD | Bile duct | | 2017 | Encounter | MED CTR MRI [address] | [address] [place], [place] | abnormality | | | | [place], | [address] [place] | | | | | [place] [address] | [address] | | | | | [phone] | | | +--------+ + + + [...] | | | | | | | ([facility]) | | | | | | | MISC | | | | | | + + + +---------+ + + | Selma-3 Fatty | Take 1 tablet by | [...] [place] | | | | | | [facility] [address] | | | | | | [phone] | | | | | | | | +--------+---------+ + + + | 06/30/ | Office | Cardiology | Smitha Griffin DO | | | 2019 | Visit | | [address] | | | | | | [place] | | | | | | [address] | | | | | | | [...] JACEK | | 02/11/2016. PROTOCOL: Coronal T2 med asst, axial T2 med asst, coronal 3D | [facility] | | respiratory triggered, coronal T2 [...] spine dated | | 02/11/2016.PROTOCOL: Coronal T2 med asst, axial T2 med asst, coronal 3D respiratory | | triggered,coronal T2 [...] A few more small subcentimeter | | [id number] cyst are seen within the left kidney [...] [address] 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
--- OUTSIDE RECORDS SUMMARY | ~2019-05-02 | XMS | Encounter Summary ---
Demographics + + + | Address | [address] | | | [place] [address] | + + + | Home Phone [...] | Author | [facility] Neal | | | and Khurramana | + + + | Organization | [facility] [...] Team Providers + +------+ + | Care Minor League Baseball Player Name | Role | Phone | [...] | | Maninder [place], | [place], | | | | | [place] [address] | [place] [address] | | | | | [phone] | [phone] | | | | | | | [...] [place] | | | | | | [place] [address] | | | | | | [phone] | | | | | | | | +--------+---------+ + + + | 06/30/ | Office | Cardiology | Smitha Griffin DO | | | 2019 | Visit | | [address] | | | | | | [place] | | | | | | [address] | | | | | | | | +--------+---------+ + + + documented as of this encounter Visit Diagnoses Not on filedocumented in this encounter"
--- OUTSIDE RECORDS SUMMARY | ~2019-05-02 | XMS | Encounter Summary ---
Demographics + + + | Address | [address] | | | [place] [address] | + + + | Home Phone [...] + + + | Author | [facility] Neal | | | and Khurramana | + + + | Organization | [facility] | | | and [...] Providers + +------+ + | Care Residential Support Specialist Name | Role | Phone | [...] | 11/03/ | Telephone | [facility] | Gregor Mccord MD | Other | | 2016 | | GASTROENTEROLOGY | [address], [place] | | | | | [address] [place] | [address] [place], [place] | | | | | [address] [place], [place] | [address] | | | | | [address] | | | | | | [phone] | | | +--------+ + + + [...] [place] | | | | | | [place] [address] | | | | | | [phone] | | | | | | | | +--------+---------+ + + + | 06/30/ | Office | Cardiology | Smitha Griffin DO | | | 2020 | Visit | | [address] | | | | | | [place] | | | | | | [address] | | | | | | | | +--------+---------+ + + + documented as of this encounter Visit Diagnoses Not on filedocumented in this encounter"
--- OUTSIDE RECORDS SUMMARY | ~2019-05-02 | XMS | Encounter Summary ---
Demographics + + + | Address | [address] | | | [place] [address] | + + + | Home Phone [...] | [facility] Neal | | | and Khurramana | + + + | Organization | [facility] Neal | | | and [place] [...] Providers + +------+ + | Care Manager Technical Training Name | Role | Phone | + [...] | | | | | | | GA ERCP DX | | | | | [...] + + | 09/26/ | Surgery | [facility] | Gregor Mccord MD | ERCP | | 2017 | | MED CTR MP INTRA OP | [address], [place] | | | | | [address] | [address] [address] | | | | | [place] | [address] | | | | | [address] | | | | | | [phone] | | | +--------+---------+ + + + [...] or severe belly or abdominal pain Fever aomca903V (37.7C) or chills Upset stomach (nausea) and vomiting Black or tarry stools Date Last Reviewed: 11/25/201419993377-0889 [employer]. [address] [place] [address], [place] [address]. All righ ts reserved. This information is [...] | | | | | | | (MERGED WITH [facility]) | | | | | | | MISC | | | | | | + + + +---------+ + + | [place]-3 Fatty | Take 1 tablet by | [...] | | | | | [place] [address] | | | | | | [phone] | | | | | | | | +--------+---------+ + + + | 06/30/ | Office | Cardiology | Smitha Griffin DO | | | 2019 | Visit | | [address] | | | | | | [place] | | | | | | [address] | | | | | | | [...] | | | | VONDA SHEPPARD MD ([id number]) | | | | | | on [...] | [facility] | | GastroenterologyPatient Name: November ConnerProcedure Date: 09/26/2016 | PROVATION | | 12:24 PMMRN: [id number] #: [id number] of : | | | 4Admit Type: AmbulatoryAge: 80Room: [facility] 01Gender: FemaleNote | | | Status: FinalizedAttending MD: Gregor Mccord , [facility]cedure: | | | ERCPIndications: Filling defect on intraoperative | | | cholangiogramProviders: Gregor Mccord MD, Jalyn Darden | | | ROBI Ring, Pablo Rothman FORMULA CHECKER, | | | Laurie Hammond, Tour Consultant, Paty Beverly | | | iMchelle, Tour Consultant, Enrique Llanos MD (Anesthesia | | | [...] | | | the anesthesiologist and the range technician in the endoscopy suite. | | [...] the procedure | | | well.Findings: A clerical proofreader film of the abdomen was obtained. | [...] | | 12:39:22 PMScope Out: 1:06:30 PM [facility] | | | [place], [address] [place] [address] | | | - Continue present medications. [...] |Scope Out: 1:06:30 PM | | | [facility], [address] [place] [address] | | | [address] | | + + -+ + +---------+ [...] | | | | VONDA SHEPPARD MD ([id number]) | | | | | | on [...]
--- OUTSIDE RECORDS SUMMARY | ~2019-05-02 | XMS | Encounter Summary ---
Demographics + + + | Address | [address] | | | [place] [address] | + + + | Home Phone | | + + + | Preferred Language | Unknown | + + + | Marital Status | | + + + | Druze Affiliation | Unknown | + + + [...] Team Providers + +------+ + | Care Drawing Instructor Name | Role | Phone | [...] Clinic Dermatology | | | | | [facility] | [address] [facility] | | | | | and Healing, | [place] | | | | | [facility] | [address] | | | | | Floor [place], [place] | | | | | | [address] | | | | | | [phone] | | | +--------+ + + + [...] | OLOGY | | | | Case: [id number] | | | | | | | [...] | [facility] | Mailcode [address] | [place] [address] | | | DERMATOPATHOLOGY | [address] | | | + + + + + documented in this encounter Visit Diagnoses + + | Diagnosis | + + | Neoplasm of uncertain behavior of skin | + + documented in this encounter
--- OUTSIDE RECORDS SUMMARY | ~2019-05-02 | XMS | Encounter Summary ---
Demographics + + + | Address | [address] | | | [place] [address] | + + + | Home Phone [...] | Author | [facility] | | | and Khurramana | + + + | Organization | [facility] | | | and [place] [...] Providers + +------+ + | Care Hand Button Splitter Name | Role | Phone | + [...] | 11/03/ | Telephone | [facility] | Gregor Mccord MD | Other | | 2016 | | GASTROENTEROLOGY | [address], [place] | | | | | [address] [place] | [address] [place], [place] | | | | | [address] [place], [place] | [address] | | | | | [address] | | | | | | [phone] | | | +--------+ + + + [...] [place] | | | | | | [place] [address] | | | | | | [phone] | | | | | | | | +--------+---------+ + + + | 06/30/ | Office | Cardiology | Smitha Griffin DO | | | 2020 | Visit | | [address] | | | | | | [place] | | | | | | [address] | | | | | | | | +--------+---------+ + + + documented as of this encounter Visit Diagnoses Not on filedocumented in this encounter"
--- OUTSIDE RECORDS SUMMARY | ~2019-05-02 | XMS | Encounter Summary ---
Demographics + + + | Address | [address] | | | [place] [address] | + + + | Home Phone [...] + | Author | [facility] | | | and Khurramana | + + + | Organization | [facility] | | | [...] Team Providers + +------+ + | Care Caustic Strength Inspector Name | Role | Phone | [...] Surgery Appointment | | 2018 | | [place] [address] | Real Estate Rep | | | | | [place] | | | | | | [address] | | | | | | [phone] | | | +--------+ + + + [...] [place] | | | | | | [place] [address] | | | | | | [phone] | | | | | | | | +--------+---------+ + + + | 06/30/ | Office | Cardiology | Smitha Griffin DO | | | 2020 | Visit | | [address] | | | | | | [place] | | | | | | [address] | | | | | | | | +--------+---------+ + + + documented as of this encounter Visit Diagnoses Not on filedocumented in this encounter"
--- OUTSIDE RECORDS SUMMARY | ~2019-05-02 | XMS | Encounter Summary ---
Demographics + + + | Address | [address] | | | [place] [address] | + + + | Home Phone | | + + + | Preferred Language | Unknown | + + + | Marital Status | | + + + | Baptist Affiliation | Unknown | + + + | Race | White | + + + | Ethnic Group | Not or | + + + Author + + + | Author | [facility] | + + + | Organization | [facility] | + + + | Address [...] Team Providers + +------+ + | Care Sludge Filtration Attendant Name | Role | Phone | [...] [address]16[address] | | | | | | [facility] | | | | | | and Healing, | | | | | | Building [address]th | | | | | | Floor [place], [place] | | | | | | [address] | | | | | | [phone] | | | +--------+ + + + [...] ls | | | | | | Received:[id number]/WW-0 | | | | | | 360-16 [...] Materials | | | | | | Returned:[id number] | | | | | | 360-16 [...] [facility] | Mailcode [address], [address] | [place] [address] | | | DERMATOPATHOLOGY | [address] | | | + + + + + documented in this encounter Visit Diagnoses Not on filedocumented in this encounter"
--- OUTSIDE RECORDS SUMMARY | ~2019-05-02 | XMS | Clinical Summary ---
Demographics + + + | Address | [address] | | | [place] [address] | + + + | Home Phone [...] | Author | [facility] Neal | | | and Khurramana | + + + | Organization | [facility] [...] Team Providers + +------+ + | Care Cereal Chemist Name | Role | Phone | + [...] | | | e | | ([facility]) | | | | | | | | MISC | | | | | | | + + + +---------+------+------+-------+ | Leggett-3 Fatty | Take 1 tablet by | [...] | 42 | 0 | 10/0 | 04/15 | Activ | | tablet | mouth Daily for 42 | tablet | | 01/01 | 02/01 | e | | | days. For [...] | +---+ + + + +--------+---+------+------+-------+ | acetaminophen | Take 2 tablets by | 180 | 0 | 10/0 | 11/0 | Expir | | (TYLENOL) 500 mg | mouth every 8 hours | tablet | | 7/20 | 6/20 | ed | | tablet | for 30 days. | | | 19 | 19 | | + + +--------+---+------+------+-------+ | traMADol (ULTRAM) | Take 1 tablet by | 60 | 0 | 10/0 | 10/2 | Expir | | 50 mg tablet | mouth every 6 hours | tablet | | 7/20 | 2/20 | ed | | | for 15 days. | | | 19 | 19 | | + + +--------+---+------+------+-------+ | | Take 1 tablet by | 60 | 0 | 10/0 | 11/0 | Expir | | sennosides-docusate | mouth 2 times daily | tablet | | 7/20 | 6/20 | ed | | sodium (SENOKOT-S) | for 30 days. | | | 19 | 19 | | | 8.6-50 MG tablet | | | | | | | + + +--------+---+------+------+-------+ | polyethylene | Take 1 diluted | 7 | 0 | 10/1 | 10/2 | Expir | | glycol [...] automatically from request for surgery | | [id number] | + + + + + | [...] Appointment | | 2018 | | | Mock Up [place] | | +--------+ + + + + [...] | | | | | [place] [address] | | | | | | [phone] | | | | | | | | +--------+---------+ + + + | 06/30/ | Office | Cardiology | Smitha Griffin DO | | | 2019 | Visit | | [address] | | | | | | [place] | | | | | | [address] | | | | | | | [...] /NA | | Mark Foley MD at [facility] | | | | | | /[id number] | | [facility] | | | | | | [...] /NA | | Mark Foley MD at [facility] | | | | | | /[id number] | | [facility] | | | | | | [...] /NA | | Mark Foley MD at [facility] | | | | | | /[id number] | | [facility] | | | | | | 802 | + +--------+--------+ +--------+--------+--------+ | Stent Bili Advnx 10fr 5cm - | Stent | | [place] | | | 3432 / | | [id number]: Qty: 1 on | | | SCIENTIFIC | | | / | | 09/26/2016 by Gregor Mccord | | | BIGG - MATTY | | | | Lucille Brock MD at [facility] | | | | | | | | [facility] | | | | | | [...] /NA | | Mark Foley MD at [facility] | | | | | | /[id number] | | [facility] | | | | | | 901A | + +--------+--------+ +--------+--------+--------+ | Screw Hex Lp [id number] - | | Left: | RANDI | | 11/20/ | 7030-6 | | SnaImplanted: Qty: 1 on | | Hip | MEDICAL - | | 2023 | 530 | | 03/29/2019 by Nan, | | | STRSebastian | | | /NA | | Mark Foley MD at [facility] | | | | | | /4RS | | [facility] | | | | | | [...] | | | POC | performed at [facility];[address] | | LABORATORY | | | | [address];[place], [place] | | | | | | [address] | | | | + + + + + + + + | Specimen | + + | | + + + + + + + | Performing | Address | City/State/Zipcode | Phone Number | | Organization | | | | + + + + + | [facility] | [address] | [place] [address] | [phone] | + + + + + Hemoglobin [...] Testing | 34.0 - 46.0 % | [facility] | | | | performed at [facility];[address] | | LABORATORY | | | | [address];[place], [place] | | | | | | [address] | | | | + + + + + + + + | Specimen | + + | Blood | + + + + + + + | Performing | Address | City/State/Zipcode | Phone Number | | Organization | | | | + + + + + | [facility] | [address] | [place] [address] | [phone] | + + + + + XR [...] + + + | BB [facility] | [id number] | | [facility] | | | | | | LABORATORY | | + + + + + + | [facility] | Testing performed at | | [facility] | | | | [facility];[address] | LABORATORY | | | | [address];[place] [address] | | | | + + + + + + + + | Specimen | + + | Blood | + + + + + + + | Performing | Address | City/State/Zipcode | Phone Number | | Organization | | | | + + + + + | [facility] | [address] | [place] [address] | [phone] | + + + + + Neuraxial [...] [facility] | | | | performed at [facility];[address] | | LABORATORY | | | | [address];[place] | | | | | | [address] | | | | + + + + + + + + | Specimen | + + | Tissue - Both | | anterior nares (body | | structure) | + + + + + + + | Performing | Address | City/State/Zipcode | Phone Number | | Organization | | | | + + + + + | [facility] | [address] | [place] [address] | [phone] | + + + + + CBC [...] | | | | | performed at [facility];[address] | | | | | | [address];[place] | | | | | | [address] | | | | + + + + + + + + | Specimen | + + | Blood | + + + + + + + | Performing | Address | City/State/Zipcode | Phone Number | | Organization | | | | + + + + + | [facility] | [address] | [place] [address] | [phone] | + + + + + Hemoglobin A1C (03/21/2019 3:33 PM PDT) + + + + + + | Component | Value | Ref Range | Performed | Pathologist | | | | | At | Signature | + + + + + + | Hemoglobin | 5.8Comment: HbA1c method | 4.0 - 6.0 % | [facility] | | | A1c | is certified by [facility] | | LABORATORY | | | | [...] | 120Comment: Estimated | <154 mg/dL | [facility] | | | Average | Average Glucose | | LABORATORY | | | Glucose | calculated from | | | | | | hemoglobin A1c by use of | | | | | | the ADArecommended | | | | | | formula.Testing | | | | | | performed at [facility], [address] | | | | | | [facility], | | | | | | [place] [address] | | | | + + + + + + + + | Specimen | + + | Blood | + + + + + + + | Performing | Address | City/State/Zipcode | Phone Number | | Organization | | | | + + + + + | [facility] | [address] | [place] [address] | [phone] | + + + + + Basic [...] | 9.5 | 8.5 - 10.5 | [facility] | | | | | mg/dL | LABORATORY | | + + + + + + | Estimated | >60Comment: GFR <60: | >60 | [facility] | | | GFR | CHRONIC KIDNEY [...] | | | | | | [facility]D [facility] traceable | | | | | | equation.Testing | | | | | | performed at [facility];[address] | | | | | | [facility];[place], [place] | | | | | | [address] | | | | + + + + + + + + | Specimen | + + | Blood | + + + + + + + | Performing | Address | City/State/Zipcode | Phone Number | | Organization | | | | + + + + + | [facility] | [address] | [place] [address] | [phone] | + + + + + ECG [...] | [facility] | [facility] | [id number] | 06/15/19 | | | Medica | | | HEALTH | | 17-Pre | | | re | | | MDCR | | sent | | | | + +--------+ +--------+-------+---------+--------+ | [facility] | [facility] | [id number] | | | | [employer]ica | | [...] | 1936 | [phone] | [place] [address] | | | aissatou | | | 3 (Home) | | + +--------+ +--------+ + + | Scarlet Murguia D | Person | Self [birth year] | [address] | | | al/Fam | | 1936 | [phone] | [place] [address] | | | aissatou | | | 3 (Home) | | + +--------+ +--------+ + + Advance Directives + + + + + | Type | Date Recorded | Patient | Explanation | | | | Hand Assembler For Puller Over | | + + + + + | Power of | | | | | Lawn Technician | | | | + + + [...]
--- OUTSIDE RECORDS SUMMARY | ~2019-05-02 | XMS | Encounter Summary ---
Demographics + + + | Address | [address] | | | [place] [address] | + + + | Home Phone [...] | [facility] Neal | | | and Khurramana | + + + | Organization | [facility] [...] Team Providers + +------+ + | Care Stone Processing Machine Operator Name | Role | Phone [...] Hyper | MD Malcom | [address] | | | | | reflexia | [address] | [place] | | | | | Abnormal | [place] | [place] | | | | | gait | [address] | [address] | | | | | Procedures | [place] | Phone: | | | | | MRI Cervical | [address] | [phone] | | | | | Spine wo | Phone: | Fax: | | | | | Contrast | [phone] | [phone] | | | | | | Fax: | | | | | | | [phone] | | +--------+--------+ + + + + [...] | (Primary Dx); | | | | [place], | [address] | Abnormal gait | | | | [place] [address] | [address] | | | | | [phone] | | | +--------+ + + + [...] | | | | | [place] [address] | | | | | | [phone] | | | | | | | | +--------+---------+ + + + | 06/30/ | Office | Cardiology | Smitha Griffin DO | | | 2019 | Visit | | [address] | | | | | | [place] | | | | | | [address] | | | | | | | [...]
--- OUTSIDE RECORDS SUMMARY | ~2019-05-02 | XMS | Encounter Summary ---
Demographics + + + | Address | [address] | | | [place] [address] | + + + | Home Phone [...] | Author | [facility] | | | and Khurramana | + + + | Organization | [facility] | [...] Team Providers + +------+ + | Care Regulatory Assistant Name | Role | Phone | [...] | | | | | Spondylolist | [address] | [address] | | | | | hesis at | Phone: | Phone: | | | | | L4-L5 level | [phone] | [phone] | | | | | Bilateral | Fax: | Fax: | | | | | lumbar | [phone] | [phone] | | | | | radiculopath | [...] | n | al disc | PA-C [address] | | | | | displacement | [address] | [place], [place] | | | | | , lumbar | Ave | [address] Phone: | | | | | region | [place], | [phone] | | | | | | [place] | Fax: | | | | | | [address] | [phone] | | | | | | Phone: | | | | | | | [phone] | | | | | | | Fax: | | | | | | | [phone] | | +--------+--------+ + + + + Encounter Details +--------+---------+ + + + | Date | Type | Department | Care Team | Description | +--------+---------+ + + + | 02/03/ | Office | [facility] | Ray, | DDD (degenerative | | 2016 | Visit | PHYSIATRY [address] | [address] | disc disease), | | | | [place], | [place], | lumbar (Primary Dx); | | | | [place] [id number] | [place] [id number] | Spondylolisthesis | | | | [phone] | [phone] | at L4-L5 level; | | | [...] when you are done getting this in [facility], please call our offi ce and [...] blood sugars if you are diabetic. intermediate frame tender risk can lead to osteoporosis which is [...] by mouth Daily. Multiple Vitamins-Minerals ([facility]) MISC Take by mouth. [place]o-3 Fatty Acids (PRO NUTRIENTS OMEGA 3 PO) [...] has no apparent deficits with short or extermination inspector memory. She has appropriate fund of knowledge [...] had a NCS performed b y a revenue collector in [place]. I would like to get those records. [...] | | | | | [place] [address] | | | | | | [phone] | | | | | | | | +--------+---------+ + + + | 06/30/ | Office | Cardiology | Smitha Griffin DO | | | 2019 | Visit | | [address] | | | | | | [place] | | | | | | [address] | | | | | | | [...]
--- OUTSIDE RECORDS SUMMARY | ~2019-05-02 | XMS | Encounter Summary ---
Demographics + + + | Address | [address] | | | [place] [address] | + + + | Home Phone [...] + | Author | [facility] | | | and Khurramana | + + + | Organization | [facility] | | | and [...] Team Providers + +------+ + | Care Casino Beverage Server Name | Role | Phone | + [...] | | | | | Spondylolist | [address] | [address] | | | | | hesis at | Phone: | Phone: | | | | | L4-L5 level | [phone] | [phone] | | | | | Bilateral | Fax: | Fax: | | | | | lumbar | [phone] | [phone] | | | | | radiculopath | [...] | disc disease), | | | | [place], | [place], | lumbar (Primary Dx); | | | | [place] [address] | [place] [address] | Spondylolisthesis | | | | [phone] | [phone] | at L4-L5 level; | | | [...] | | | | | [place] [address] | | | | | | [phone] | | | | | | | | +--------+---------+ + + + | 06/30/ | Office | Cardiology | Smitha Griffin DO | | | 2020 | Visit | | [address] | | | | | | [place], [place] | | | | | | [address] | | | | | | | [...]
--- OUTSIDE RECORDS SUMMARY | ~2019-05-02 | XMS | Encounter Summary ---
Demographics + + + | Address | [address] | | | [place] [address] | + + + | Home Phone [...] | Author | [facility] | | | and Khurramana | + + + | Organization | [facility] | | [...] Team Providers + +------+ + | Care Automotive Design Layout Drafter Name | Role | Phone | + [...] | | | | | [address] | [place] | | | | | [place] | [address] | | | | | [address] | | | | | | [phone] | | | +--------+ + + + [...] [address] | | eral | Forearm; lbcd-imz-qjfdlg catheter | Patsy Dixon RN | Delicia [...] | | | | | [place] [address] | | | | | | [phone] | | | | | | | | +--------+---------+ + + + | 06/30/ | Office | Cardiology | Smitha Griffin DO | | | 2019 | Visit | | [address] | | | | | | [place] | | | | | | [address] | | | | | | | [...]
--- OUTSIDE RECORDS SUMMARY | ~2019-05-02 | XMS | Encounter Summary ---
Demographics + + + | Address | [address] | | | [place] [address] | + + + | Home Phone | | + + + | Preferred Language | Unknown | + + + | Marital Status | | + + + | Yarsanism Affiliation | 1077 | + + + | Race | Unknown | + + + | Ethnic Group | Unknown | + + + Author + + + | Author | [facility] | | | and Khurramana | + + + | Organization | [facility] Neal [...] Team Providers + +------+ + | Care Subassembly Supervisor Name | Role | Phone | + +------+ + PCP | Unavailable | + +------+ + Encounter Details +--------+ + + + + | Date | Type | Department | Care Team | Description | +--------+ + + + + | 10/20/ | Hospital | [facility] | | | | 1999 | Encounter | MED CTR LABORATORY | | | | | | [address] | | | | | | [place] | | | | | | [address] | | | | | | [phone] | | | +--------+ + + + [...] [place] | | | | | | [facility] [address] | | | | | | [phone] | | | | | | | | +--------+---------+ + + + | 06/30/ | Office | Cardiology | Smitha Griffin DO | | | 2019 | Visit | | [address] | | | | | | [place] | | | | | | [address] | | | | | | | | +--------+---------+ + + + documented as of this encounter Visit Diagnoses Not on filedocumented in this encounter"
--- OUTSIDE RECORDS SUMMARY | ~2019-05-02 | XMS | Encounter Summary ---
Demographics + + + | Address | [address] | | | [place] [address] | + + + | Home Phone | | + + + | Preferred Language | Unknown | + + + | Marital Status | | + + + | Jew Affiliation | Unknown | + + + [...] Team Providers + +------+ + | Care Talent Development Director Name | Role | Phone | [...] [id number] | | | | | | [facility] | | | | | | and Healing, | | | | | | Building [address], [address]th | | | | | | Floor [place], [place] | | | | | | [address] | | | | | | [phone] | | | +--------+ + + + [...] | | | | | | skin, [id number]. The | | | | | | [...] [facility] | [address], [address] | [place] [address] | | | DERMATOPATHOLOGY | [address] | | | + + + + + documented in this encounter Visit Diagnoses + + | Diagnosis | + + | Other melanin hyperpigmentation | + + documented in this encounter
--- OUTSIDE RECORDS SUMMARY | ~2019-05-02 | XMS | Encounter Summary ---
Demographics + + + | Address | [address] | | | [place] [address] | + + + | Home Phone [...] [facility] | | | and Khurramana | + + + | Organization | [facility] | | | and [place] [...] Team Providers + +------+ + | Care Extruder Name | Role | Phone | + [...] 2017 | | GASTROENTEROLOGY | [address], [place] | MRCP Liver without | | | | [address] [place] | [address] [place] | contrast scheduled) | | | | [address] [place] | [address] | | | | | [address] | | | | | | [phone] | | | +--------+ + + + [...] | | | | | [place] [address] | | | | | | [phone] | | | | | | | | +--------+---------+ + + + | 06/30/ | Office | Cardiology | Smitha Griffin DO | | | 2019 | Visit | | [address] | | | | | | [place] | | | | | | [address] | | | | | | | | +--------+---------+ + + + documented as of this encounter Visit Diagnoses Not on filedocumented in this encounter"
--- OUTSIDE RECORDS SUMMARY | ~2019-05-02 | XMS | Encounter Summary ---
Demographics + + + | Address | [address] | | | [place] [address] | + + + | Home Phone [...] | [facility] Neal | | | and Khurramana | + + + | Organization | [facility] | | | and [place] | [...] Team Providers + +------+ + | Care Geometry Teacher Name | Role | Phone | [...] + + | 09/26/ | Hospital | [facility] | Gregor Mccord MD | | | 2017 | Encounter | MED CTR XRAY [address] | [address] [place] | | | | | [place] | [address] [place] | | | | | [place] [address] | [id number] | | | | | [phone] | | | +--------+ + + + [...] | | | | | | | ([facility]) | | | | | | | MISC | | | | | | + + + +---------+ + + | [place]-3 Fatty | Take 1 tablet by [...] [place] | | | | | | [address] | | | | | | [phone] | | | | | | | | +--------+---------+ + + + | 06/30/ | Office | Cardiology | Smitha Griffin DO | | | 2019 | Visit | | [address] | | | | | | [place] | | | | | | [address] | | | | | | | [...]
--- OUTSIDE RECORDS SUMMARY | ~2019-05-02 | XMS | Encounter Summary ---
Demographics + + + | Address | [address] | | | [place] [address] | + + + | Home Phone [...] | [facility] | | | and Khurramana | + + + | Organization | [facility] Neal | | [...] Team Providers + +------+ + | Care Post Acute Care Registered Nurse Name | Role | Phone | [...] | | | | | | | NE ERCP DX | | | | | [...] + | 09/26/ | Anesthesia | [facility] | Enrique Llanos | | | 2016 | Event | MED CTR MP INTRA OP | MD Mc [address] | | | | | [address] | [facility] | | | | | [place] | [place] [address] | | | | | [address] | [phone] | | | | | [phone] | | | +--------+ + + + [...] [address] | | eral | Antecubital; pjya-qod-biibvk | Patsy Dixon RN | Patsy Dixon [...] | | | | | [place] [address] | | | | | | [phone] | | | | | | | | +--------+---------+ + + + | 06/30/ | Office | Cardiology | Smitha Griffin DO | | | 2019 | Visit | | [address] | | | | | | [place] | | | | | | [address] | | | | | | | [...]
--- OUTSIDE RECORDS SUMMARY | ~2019-05-02 | XMS | Encounter Summary ---
Demographics + + + | Address | [address] | | | [place] [address] | + + + | Home Phone [...] Author | [facility] | | | and Khurramana | + + + | Organization | [facility] | | | and [...] Team Providers + +------+ + | Care Rack Worker Name | Role | Phone | [...] [place] | | | | | | [address] | | | | | | [phone] | | | +--------+ + + + [...] [place] | | | | | | [place] [address] | | | | | | [phone] | | | | | | | | +--------+---------+ + + + | 06/30/ | Office | Cardiology | Smitha Griffin DO | | | 2019 | Visit | | [address] | | | | | | [place] | | | | | | [address] | | | | | | | | +--------+---------+ + + + documented as of this encounter Visit Diagnoses + + | Diagnosis | + + | Other screening mammogram | + + documented in this encounter"
--- OUTSIDE RECORDS SUMMARY | ~2019-05-02 | XMS | Encounter Summary ---
Demographics + + + | Address | [address] | | | [place] [address] | + + + | Home Phone [...] | Author | [facility] | | | and Khurramana | + + + | Organization | [facility] | | | and [...] Team Providers + +------+ + | Care Copywriter Name | Role | Phone | + [...] | | | | | hip | [address] | [address] | | | | | | Phone: | Phone: | | | | | | [phone] | [phone] | | | | | | Fax: | Fax: | | | | | | [phone] | [phone] | + + + + + + [...] | | | | | from | [address] | [address] | | | | | [place] at | [address] | [address] [place] | | | | | [facility] | [place], | [place], [place] | | | | | Procedures | [place] | [address] Phone: | | | | | NEW PATIENT | [address] | [phone] | | | | | | Phone: | Fax: | | | | | | [phone] | [phone] | | | | | | Fax: | | | | | | | [phone] | | + +--------+ + + + + Encounter Details +--------+---------+ + + + | Date | Type | Department | Care Team | Description | +--------+---------+ + + + | 03/21/ | Office | [facility] | Gus Orozco, | 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[place], [place]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[place], | left hip (Primary | | | | [address] | [place] [address] | Dx) | | | | [phone] | [phone] | | | | | | | [...] Procedure: ERCP; Surgeon: Gregor Mccord MD; Location: [facility] MEDICAL PROCEDURE UNIT ERCP N/A 10/14/2016 Procedure: ERCP w/ stent pull; Surgeon: Gregor Mccord MD; Location: [facility] MEDICAL PROCEDU RE UNIT PARTIAL HYSTERECTOMY [...] Maternal Uncle Social History Occupational History 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 Tobacco Use Smoking status: Never [...] MISC, Take by mouth., Disp: , Rfl: [place]tum-3 Fatty Acids (PRO NUTRIENTS OMEGA 3 PO), [...] 12 months?:yes Under the care of a hearing aide technician?: no Diabetes Optimization?:well controlled diet No results found for: LABGLYC History of MRSA/MSSA infection?:no Metal sensitivity or allergy?:no Intolerance to certain specific opiate?:no DVT/PE Risk Stratification Personal history of DVT/PE?:no Cancer treatment in the last 5 years?:no Hormone replacement therapy?:no Tolerate aspirin?:asa Current Anticoagulation?:asa Chemical prophylaxis plan:asa Anticipated Discharge Plan Discharge home to care of daughter (princess), [facility]) Return for [...] [place] | | | | | | [place] [address] | | | | | | [phone] | | | | | | | | +--------+---------+ + + + | 06/30/ | Office | Cardiology | Smitha Griffin DO | | | 2019 | Visit | | [address] | | | | | | [place] | | | | | | [address] | | | | | | | [...]
--- OUTSIDE RECORDS SUMMARY | ~2019-05-02 | XMS | Clinical Summary ---
Demographics + + + | Address | [address] | | | [place] [address] | + + + | Home Phone [...] Author | [facility] (Historical as of | | | 01-29-19) | + + + | Organization | [facility] (Historical as of | | | 01-29-19) | + + + | Address | Unknown | + + + | Phone | Unavailable | + + + Support + + + + + | Name | Relationship | Address | Phone | + + + + + | Alejo Murguia | DIRK | [address] | | | | | [place] [address] | | + + + + + Care Team Providers + +------+ + | Care Vp Securities Name | Role | Phone | + [...]
--- OUTSIDE RECORDS SUMMARY | ~2019-05-02 | XMS | Encounter Summary ---
Demographics + + + | Address | [address] | | | [place] [address] | + + + | Home Phone [...] | Author | [facility] Neal | | | and Khurramana | + + + | Organization | [facility] Neal [...] Providers + +------+ + | Care Clinical Massage Therapist Name | Role | Phone | [...] | | | | | Spondylolist | [address] | [address] | | | | | hesis at | Phone: | Phone: | | | | | L4-L5 level | [phone] | [phone] | | | | | Bilateral | Fax: | Fax: | | | | | lumbar | [phone] | [phone] | | | | | radiculopath | [...] | disc disease), | | | | [place], | [place], | lumbar (Primary Dx); | | | | [place] [address] | [place] [address] | Spondylolisthesis | | | | [phone] | [phone] | at L4-L5 level; | | | [...] | | | | | [place] [address] | | | | | | [phone] | | | | | | | | +--------+---------+ + + + | 06/30/ | Office | Cardiology | Smitha Griffin DO | | | 2020 | Visit | | [address] | | | | | | [place], [place] | | | | | | [address] | | | | | | | [...]
--- OUTSIDE RECORDS SUMMARY | ~2019-05-02 | XMS | Encounter Summary ---
Demographics + + + | Address | [address] | | | [place] [address] | + + + | Home Phone [...] | Author | [facility] Neal | | | and Khurramana | + + + | Organization | [facility] Neal | | | and [place] [...] Team Providers + +------+ + | Care Curriculum Advisory Teacher Name | Role | Phone | [...] | Gregor Brock MD | [address] | | | | | abnormality | [address] | [place], | | | | | Procedures | [place], [place] | [place] | | | | | MRI MRCP | [address] | [address] | | | | | Liver wo | [place] | Phone: | | | | | Contrast [place] | [address] | [phone] | | | | | MRI, | Phone: | Fax: | | | | | ABDOMEN | [phone] | [phone] | | | | | (MRI) | Fax: | | | | | | | [phone] | | +--------+--------+ + + + + [...] 2016 | | GASTROENTEROLOGY | [address], [place] | | | | | [address] [place] | [address] [place] | | | | | [address] [place] | [address] | | | | | [address] | | | | | | [phone] | | | +--------+ + + + [...] [place] | | | | | | [place] [address] | | | | | | [phone] | | | | | | | | +--------+---------+ + + + | 06/30/ | Office | Cardiology | Smitha Griffin DO | | | 2019 | Visit | | [address] | | | | | | [place], [place] | | | | | | [address] | | | | | | | [...] JACEK | | 02/11/2016. PROTOCOL: Coronal T2 plastic surgery technician, axial T2 plastic surgery technician, coronal 3D | [facility] | | respiratory triggered, coronal T2 [...] spine dated | | 02/11/2016.PROTOCOL: Coronal T2 plastic surgery technician, axial T2 plastic surgery technician, coronal 3D respiratory | | triggered,coronal T2 [...] A few more small subcentimeter | | [id number] cyst are seen within the left kidney [...] + + | [facility] | [address] 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
--- OUTSIDE RECORDS SUMMARY | ~2019-05-02 | XMS | Encounter Summary ---
Demographics + + + | Address | [address] | | | [place] [address] | + + + | Home Phone [...] Team Providers + +------+ + | Care Software Programmer Name | Role | Phone | [...] + + | 09/26/ | Surgery | [facility] | Gregor Mccord MD | ERCP | | 2017 | | MED CTR MP INTRA OP | [address], [place] | | | | | [address] | [address] [place] [address] | | | | | [place] | [address] | | | | | [address] | | | | | | [phone] | | | +--------+---------+ + + + [...] or severe belly or abdominal pain Fever [id number] (37.7C) or chills Upset stomach (nausea) and vomiting Black or tarry stools Date Last Reviewed: 11/25/201419991416-3522 [employer]. [address] [place] [address], [place] [address]. All righ ts reserved. This information is [...] + + + +---------+ + + | Piqua-3 Fatty | Take 1 tablet by | [...] [place] | | | | | | [place] [address] | | | | | | [phone] | | | | | | | | +--------+---------+ + + + | 06/30/ | Office | Cardiology | Smitha Griffin DO | | | 2019 | Visit | | [address] | | | | | | [place] | | | | | | [address] | | | | | | | [...] | | | | VONDA SHEPPARD MD ([id number]) | | | | | | on [...] | [facility] | | GastroenterologyPatient Name: November Bryans RoadProcedure Date: 09/26/2016 | PROVATION | | 12:24 PMMRN: [id number] #: [id number] of : | | | 4Admit Type: AmbulatoryAge: 80Room: [facility] 01Gender: FemaleNote | | | Status: FinalizedAttending MD: Gregor Mccord , [facility]Arocedure: | | | ERCPIndications: Filling defect on intraoperative | | | cholangiogramProviders: Gregor Mccord MD, Jalyn Darden | | | ROBI Ring, Pablo Rothman DISK AND TAPE MACHINE TENDER, | | | Laurie Hammond, Information Resources Director, Paty Beverly | | | Michelle, Information Resources Director, Enrique Llanos MD (Anesthesia | | [...] | | | the anesthesiologist and the cephalometric technician in the endoscopy suite. | | [...] the procedure | | | well.Findings: A middle school technology teacher film of the abdomen was obtained. | [...] | | 12:39:22 PMScope Out: 1:06:30 PM [facility] | | | [place], [address] [place] [address] | | | - Continue present medications. [...] |Scope Out: 1:06:30 PM | | | [facility], [address] [place] [address] | | | [address] | | + + -+ + +---------+ [...] | | | | [place] SHEPPARD MD ([id number]) | | | | | | on [...]
--- OUTSIDE RECORDS SUMMARY | ~2019-05-02 | XMS | Encounter Summary ---
Demographics + + + | Address | [address] | | | [place] [address] | + + + | Home Phone [...] + + | Author | [facility] | | | and Khurramana | + + + | Organization | [facility] | | [...] Team Providers + +------+ + | Care Train Controller Name | Role | Phone | [...] 2016 | | GASTROENTEROLOGY | [address] | | | | | [address] | [address] [place] [address] | | | | | [address] [place] | [address] | | | | | [address] | | | | | | [phone] | | | +--------+ + + + [...] [place] | | | | | | [place] [address] | | | | | | [phone] | | | | | | | | +--------+---------+ + + + | 06/30/ | Office | Cardiology | Smitha Griffin DO | | | 2019 | Visit | | [address] | | | | | | [place] | | | | | | [address] | | | | | | | | +--------+---------+ + + + documented as of this encounter Visit Diagnoses Not on filedocumented in this encounter"
--- OUTSIDE RECORDS SUMMARY | ~2019-05-02 | XMS | Encounter Summary ---
Demographics + + + | Address | [address] | | | [place] [address] | + + + | Home Phone [...] | Author | [facility] | | | and Khurramana | + + + | Organization | [facility] | | | and [place] [...] Team Providers + +------+ + | Care Lye Peel Operator Name | Role | Phone | [...] + + | 10/14/ | Hospital | [facility] | Gregor Mccord MD | Choledocholithiasis | | 2017 | Encounter | MED CTR MP INTRA OP | [address], [place] | (Primary Dx) | | | | [address] | [address] [place], [place] | | | | | [place], [place] | [address] | | | | | [address] | | | | | | [phone] | | | +--------+ + + + [...] the test. This includes: All prescription medicines Fgxl-ayw-yojplyp medicines that don't need a prescription Any [...] infection or torn bowel. Date Last Reviewed: 12/01/201419993114-6449 [employer]. [address] [place] [address], [place] [address]. All righ ts reserved. This information is [...] You cannot be awakened Date Last Reviewed: 04/01/201619991088-1009 [employer]. [address] [place] [address]. All righ ts reserved. This information is [...] | | | | | | | ([facility]) | | | | | | | MISC | | | | | | + + + +---------+ + + | Ripton-3 Fatty | Take 1 tablet by | [...] [place] | | | | | | [place] [address] | | | | | | [phone] | | | | | | | | +--------+---------+ + + + | 06/30/ | Office | Cardiology | Smitha Griffin DO | | | 2019 | Visit | | [address] | | | | | | [place] | | | | | | [address] | | | | | | | [...] 10/14/2016 12:25 | PROVATION | | PMMRN: [id number] #: [id number] of : 1936Admit | | | Type: AmbulatoryAge: 80Room: [facility] 01Gender: FemaleNote Status: | | | FinalizedAttending MD: Gregor Mccord [facility] | | | ERCPIndications: Biliary stent removalProviders: | | | Gregor Mccord MD, Jalyn Ring RN, Edon | | | ROBI Tello, Harinder Mcgowan [...] the anesthesiologist and | | | the forest ranger technician in the endoscopy suite. Mental Status [...] was visible on the | | | configuration management manager film. The esophagus was successfully intubated [...] Scope In: 12:40:12 PMScope Out: 12:55:03 PM [place] | | | [facility], [address] [place] [address] | | | [phone] | | | - Continue present medications. [...] |Scope Out: 12:55:03 PM | | | [facility], [address] [place] | | | [address] | | + + -+ + +---------+ [...]
--- OUTSIDE RECORDS SUMMARY | ~2019-05-02 | XMS | Encounter Summary ---
Demographics + + + | Address | [address] | | | [place] [address] | + + + | Home Phone [...] Author | [facility] | | | and Khurramana | + + + | Organization | [facility] | | | and [place] [...] Team Providers + +------+ + | Care Eligibility Supervisor Name | Role | Phone | + +------+ + | Susan Leos | PCP | | | PA-C | | | + +------+ + Encounter Details +--------+ + + + + | Date | Type | Department | Care Team | Description | +--------+ + + + + | 02/28/ | Hospital | [facility] | Malcom Mojica | Peripheral | | 2016 | Encounter | MED CTR LABORATORY | MD Desi SMITH | polyneuropathy (HCC) | | | | [address] [place] | [address] [place] | (Primary Dx) | | | | [place] | [address] | | | | | [address] | | | | | | [phone] | | | +--------+ + + + [...] | + + + +---------+--------+ + | Duncan-3 Fatty | Take 1 tablet by | [...] | | | | | [place] [address] | | | | | | [phone] | | | | | | | | +--------+---------+ + + + | 06/30/ | Office | Cardiology | Smitha Griffin DO | | | 2019 | Visit | | [address] | | | | | | [place] | | | | | | [address] | | | | | | | [...] | | | | | | decisions. [facility] | | | | | is [...] [place] | | | | | | [address] | | | | + + + [...] [address] | [place] [address] | [phone] | + + + + + Vitamin [...] Vitamin | | | | | | C0zpzpcrdfeja.This test | | | | | | [...] [place] | | | | | | [address] | | | | + + + [...] [address] | [place] [address] | [phone] | + + + + + documented in this encounter Visit Diagnoses + + | Diagnosis | + + | Peripheral polyneuropathy - Primary Unspecified hereditary and idiopathic peripheral | | neuropathy | + + documented in this encounter"
--- OUTSIDE RECORDS SUMMARY | ~2019-05-02 | XMS | Encounter Summary ---
Demographics + + + | Address | [address] | | | [place] [address] | + + + | Home Phone | | + + + | Preferred Language | Unknown | + + + | Marital Status | | + + + | Samaritan Affiliation | 1077 | + + + | Race | Unknown | + + + | Ethnic Group | Unknown | + + + Author + + + | Author | [facility] | | | and Khurramana | + + + | Organization | [facility] | [...] Providers + +------+ + | Care Book Mender Name | Role | Phone | + [...] | | | | | from | [address] | [address] | | | | | [place] at | [address] | [address] [place] [address] | | | | | [facility] | [place], | [place], [place] | | | | | Procedures | [place] | [address] Phone: | | | | | NEW PATIENT | [address] | [phone] | | | | | | Phone: | Fax: | | | | | | [phone] | [phone] | | | | | | Fax: | | | | | | | [phone] | | + +--------+ + + + [...] 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[place], [place]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 (Primary | | | | [address] | [place] [address] | Dx) | | | | [phone] | [phone] | | | | | | | [...] Procedure: ERCP; Surgeon: Gregor Mccord MD; Location: [facility] MEDICAL PROCEDURE UNIT ERCP N/A 10/14/2016 Procedure: ERCP w/ stent pull; Surgeon: Gregor Mccord MD; Location: [facility] MEDICAL PROCEDU RE UNIT PARTIAL [...] mouth Daily., Disp: , Rfl: Multiple Vitamins-Minerals ([facility]) MISC, Take by mouth., Disp: , Rfl: Naco-3 Fatty Acids (PRO NUTRIENTS OMEGA 3 PO), [...] Request - OR/ENDO/ASC/OB: Posterior Total Hip Arthroplasty: [employer] [place] [employer] The patient has posttraumatic left hip [...] [address] | | | | | | [place] [address] | | | | | | [phone] | | | | | | | | +--------+---------+ + + + | 06/30/ | Office | Cardiology | Smitha Griffin DO | | | 2019 | Visit | | [address] | | | | | | [place] | | | | | | [address] | | | | | | | [...]
--- OUTSIDE RECORDS SUMMARY | ~2019-05-02 | XMS | Encounter Summary ---
Demographics + + + | Address | [address] | | | [place] [address] | + + + | Home Phone [...] | Author | [facility] | | | and Khurramana | + + + | Organization | [facility] | [...] Team Providers + +------+ + | Care Career Transition Specialist Name | Role | Phone | [...] + + | 05// | Hospital | [facility] | Gregor Mccord MD | | | 2017 | Encounter | MED CTR XRAY [address] | [address] | | | | | [place] | [address] [place], [place] | | | | | [place] [address] | [address] | | | | | [phone] | | | +--------+ + + + [...] + + + +---------+ + + | Upland-3 Fatty | Take 1 tablet by | [...] | | | | | [place] [address] | | | | | | [phone] | | | | | | | | +--------+---------+ + + + | 06/30/ | Office | Cardiology | Smitha Griffin DO | | | 2019 | Visit | | [address] | | | | | | [place] | | | | | | [id number] | | | | | | | [...]
--- OUTSIDE RECORDS SUMMARY | ~2019-05-02 | XMS | Encounter Summary ---
Demographics + + + | Address | [address] | | | [place] [address] | + + + | Home Phone [...] | [facility] | | | and Khurramana | + + + | Organization | [facility] | | [...] Team Providers + +------+ + | Care Sports Athletic Trainer Name | Role | Phone | + [...] | | | | | (degenerativ | [address] | | | | | | e disc | Phone: | | | | | | disease), | [phone] | | | | | | lumbar | Fax: | | | | | | Bilateral | [phone] | | | | | | lumbar [...] [place], | | | | | [place] [address] | [place] [address] | | | | | [phone] | [phone] | | | | | | | [...] [address] | | | | | | [place] [address] | | | | | | [phone] | | | | | | | | +--------+---------+ + + + | 06/30/ | Office | Cardiology | Smitha Griffin DO | | | 2020 | Visit | | [address] | | | | | | [place] | | | | | | [address] | | | | | | | [...] +--------+ + + | AMB REFERRAL TO [facility] | Outpatient | Routin | Spondylolisthesis [...]
--- OUTSIDE RECORDS SUMMARY | ~2019-05-02 | XMS | Encounter Summary ---
Demographics + + + | Address | [address] | | | [place] [address] | + + + | Home Phone [...] [facility] | | | and Khurramana | + + + | Organization | [facility] [...] Team Providers + +------+ + | Care Chamber Magistrate Name | Role | Phone | + [...] [place] | | | | | [address] | [place] [address] | | | | | [phone] | [phone] | | | | | | | [...] | Visit | | MD Alain[address] | | | | | | [place] | | | | | | [place] [address] | | | | | | [phone] | | | | | | | | +--------+---------+ + + + | 06/30/ | Office | Cardiology | Smitha Griffin DO | | | 2019 | Visit | | [address] | | | | | | [place] | | | | | | [address] | | | | | | | | +--------+---------+ + + + documented as of this encounter Visit Diagnoses Not on filedocumented in this encounter"
--- OUTSIDE RECORDS SUMMARY | ~2019-05-02 | XMS | Encounter Summary ---
Demographics + + + | Address | [address] | | | [place] [address] | + + + | Home Phone [...] Author | [facility] | | | and Khurramana | + + + | Organization | [facility] | | [...] Team Providers + +------+ + | Care Environmental Conflict Manager Name | Role | Phone | [...] | disc disease), | | | | [place], | [address] [place], | lumbar; | | | | [place] [address] | [place] [address] | Spondylolisthesis at | | | | [phone] | [phone] | L4-L5 level; | | | | [...] | | | | | [place] [address] | | | | | | [phone] | | | | | | | | +--------+---------+ + + + | 06/30/ | Office | Cardiology | Smitha GriffinDO | | | 2019 | Visit | | [address] | | | | | | [place] | | | | | | [address] | | | | | | | [...]
--- OUTSIDE RECORDS SUMMARY | ~2019-05-02 | XMS | Encounter Summary ---
Demographics + + + | Address | [address] | | | [place] [address] | + + + | Home Phone [...] | Author | [facility] | | | and Khurramana | + + + | Organization | [facility] | | [...] Providers + +------+ + | Care Certified Hand Therapist Name | Role | Phone | [...] | | | | | | [place], | [address] [place] | | | | | | [place] | [place], [place] | | | | | | [address] | [address] | | | | | | Phone: | Phone: | | | | | | [phone] | [phone] | | | | | | Fax: | Fax: | | | | | | [phone] | [phone] | +--------+--------+ + + + + Encounter Details +--------+---------+ + + + | Date | Type | Department | Care Team | Description | +--------+---------+ + + + | 04// | Office | [facility] | Gregor Mccord MD | Choledocholithiasis | | 2017 | Visit | GASTROENTEROLOGY | [address], [place] | (Primary Dx) | | | | [address] [place] | [address] [place], [place] | | | | | [address] [place], [place] | [address] | | | | | [address] | | | | | | [phone] | | | +--------+---------+ + + + [...] 3 Years of Education: 12 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
--- OUTSIDE RECORDS SUMMARY | ~2019-05-02 | XMS | Encounter Summary ---
Demographics + + + | Address | [address] | | | [place] [address] | + + + | Home Phone [...] + | Author | [facility] | | | and Khurramana | + + + | Organization | [facility] | | | and [...] Team Providers + +------+ + | Care Zoning Engineer Name | Role | Phone | [...] [place] | | | | | | [address] | | | | | | [phone] | | | +--------+ + + + [...] [place] | | | | | | [place] [address] | | | | | | [phone] | | | | | | | | +--------+---------+ + + + | 06/30/ | Office | Cardiology | Smitha Griffin DO | | | 2019 | Visit | | [address] | | | | | | [place] | | | | | | [address] | | | | | | | | +--------+---------+ + + + documented as of this encounter Visit Diagnoses + + | Diagnosis | + + | Other screening mammogram | + + documented in this encounter"
--- OUTSIDE RECORDS SUMMARY | ~2019-05-02 | XMS | Encounter Summary ---
Demographics + + + | Address | [address] | | | [place] [address] | + + + | Home Phone [...] Author | [facility] | | | and Khurramana | + + + | Organization | [facility] | | [...] Team Providers + +------+ + | Care Meat Press Operator Name | Role | Phone | + +------+ + | Susan Leos | PCP | | | PA-C | | | + +------+ + Encounter Details +--------+ + + + + | Date | Type | Department | Care Team | Description | +--------+ + + + + | 02/28/ | Hospital | [facility] | Malcom Mojica | Peripheral | | 2016 | Encounter | MED CTR LABORATORY | MD Desi SMITH | polyneuropathy (HCC) | | | | [address] [place] | [address] [place] | (Primary Dx) | | | | [place] | [address] | | | | | [address] | | | | | | [phone] | | | +--------+ + + + [...] | | | | | | | ([facility]) | | | | | | | MISC | | | | | | + + + +---------+--------+ + | Enola-3 Fatty | Take 1 tablet by | [...] | | | | | [place] [address] | | | | | | [phone] | | | | | | | | +--------+---------+ + + + | 06/30/ | Office | Cardiology | Smitha Griffin DO | | | 2019 | Visit | | [address] | | | | | | [place] | | | | | | [address] | | | | | | | [...] | | | | | | decisions. [facility] | | [facility] | | is [...] [place] | | | | | | [address] | | | | + + + [...] [address] | [place] [address] | [phone] | + + + + + Vitamin [...] Vitamin | | | | | | L5rkklvhictnf.This test | | | | | | [...] [place] | | | | | | [address] | | | | + + + [...] [address] | [place] [address] | [phone] | + + + + + documented in this encounter Visit Diagnoses + + | Diagnosis | + + | Peripheral polyneuropathy - Primary Unspecified hereditary and idiopathic peripheral | | neuropathy | + + documented in this encounter"
--- OUTSIDE RECORDS SUMMARY | ~2019-05-02 | XMS | Encounter Summary ---
Demographics + + + | Address | [address] | | | [place] [address] | + + + | Home Phone | | + + + | Preferred Language | Unknown | + + + | Marital Status | | + + + | Jain Affiliation | Unknown | + + + | Race | White | + + + | Ethnic Group | Not or | + + + Author + + + | Author | [facility] | + + + | Organization | [facility] | + + + | [...] Team Providers + +------+ + | Care Cupola Tender Helper Name | Role | Phone | + +------+ + PCP | Unavailable | + +------+ + Encounter Details +--------+ + + + + | Date | Type | Department | Care Team | Description | +--------+ + + + + | 03/20/ | Transcribed | Allergy Clinic at | Dictation, Other | Transcribed | | 1996 | | [facility] [address] | | | | | | [address] | | | | | | Mailcode: OP[address] | | | | | | [address] | | | | | | [place], | | | | | | [place] [address] | | | | | | [phone] | | | +--------+ + + + [...] as of this encounter Progress Notes Interface, Passenger Service Representative In - 07/30/2006 1:06 AM PST [address] [address] or March 20, 1997 AKIRA LEOS [facility] [address] [place] [address] RE:Scarlet Murguia MR#:[id number] Leos: We saw Mrs. Scarlet Murguia for a rheumatology consultation at [facility] on March 20, 1997. The [...] se, as manifested by pain at rest, supervisor tile and mottle stiffness for greater than an hour or [...] Thank you for your referral to the [facility]. Sincerely, Damaso Franks M.D. Resident, Internal Medicine TERRY/artemio cc: Samia Montano M.D. Submersible Pilot, Medicine Rheumatology and Arthritis documented in this encounter Plan of Treatment Not on filedocumented as of this encounter Visit Diagnoses Not on filedocumented in this encounter
--- OUTSIDE RECORDS SUMMARY | ~2019-05-02 | XMS | Encounter Summary ---
Demographics + + + | Address | [address] | | | [place] [address] | + + + | Home Phone [...] Author | [facility] Neal | | | and Khurramana | + + + | Organization | [facility] Neal [...] Team Providers + +------+ + | Care Safety Representative Name | Role | Phone | [...] | | | | | hip | [address] | [address] | | | | | | Phone: | Phone: | | | | | | [phone] | [phone] | | | | | | Fax: | Fax: | | | | | | [phone] | [phone] | + + + + + + [...] | | | | | from | [address] | [address] | | | | | [place] at | [address] | [address] | | | | | [facility] | [place], | [place], [place] | | | | | Procedures | [place] | [address] Phone: | | | | | NEW PATIENT | [address] | [phone] | | | | | | Phone: | Fax: | | | | | | [phone] | [phone] | | | | | | Fax: | | | | | | | [phone] | | + +--------+ + + + + Encounter Details +--------+---------+ + + + | Date | Type | Department | Care Team | Description | +--------+---------+ + + + | 03/21/ | Office | [facility] | Gus Orozco, | 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[place], [place]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[place], | left hip (Primary | | | | [address] | [place] [address] | Dx) | | | | [phone] | [phone] | | | | | | | [...] [facility] MEDICAL PROCEDU RE UNIT PARTIAL [...] Social History Occupational History 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 Tobacco Use Smoking status: Never [...] MISC, Take by mouth., Disp: , Rfl: Volga-3 Fatty Acids (PRO NUTRIENTS OMEGA 3 PO), [...] 12 months?:yes Under the care of a spotter driver?: no Diabetes Optimization?:well controlled diet No results found for: LABGLYC History of MRSA/MSSA infection?:no Metal sensitivity or allergy?:no Intolerance to certain specific opiate?:no DVT/PE Risk Stratification Personal history of DVT/PE?:no Cancer treatment in the last 5 years?:no Hormone replacement therapy?:no Tolerate aspirin?:asa Current Anticoagulation?:asa Chemical prophylaxis plan:asa Anticipated Discharge Plan Discharge home to care of daughter (princess), [facility] Return for [...] [address] | | | | | | [place] [address] | | | | | | [phone] | | | | | | | | +--------+---------+ + + + | 06/30/ | Office | Cardiology | Smitha Griffin DO | | | 2019 | Visit | | [address] | | | | | | [place] | | | | | | [address] | | | | | | | [...]
--- OUTSIDE RECORDS SUMMARY | ~2019-05-02 | XMS | Encounter Summary ---
Demographics + + + | Address | [address] | | | [place] [address] | + + + | Home Phone [...] Author | [facility] Neal | | | and Khurramana | + + + | Organization | [facility] Neal | | | and [place] [...] Team Providers + +------+ + | Care Counter Molder Name | Role | Phone | + +------+ + | Susan Leos | PCP | | | PA-C | | | + +------+ + Encounter Details +--------+ + + + + | Date | Type | Department | Care Team | Description | +--------+ + + + + | 02/24/ | Hospital | [facility] | Malcom Mojica | Peripheral | | 2016 | Encounter | MED CTR LABORATORY | MD Desi SMITH | polyneuropathy (HCC) | | | | [address] [place] | [address] [place] | | | | | [place] | [address] | | | | | [address] | | | | | | [phone] | | | +--------+ + + + [...] | | | | ([facility] [employer]) | | | | | | | MISC | | | | | | + + + +---------+--------+ + | Sunderland-3 Fatty | Take 1 tablet by | [...] | | | | | [place] [address] | | | | | | [phone] | | | | | | | | +--------+---------+ + + + | 06/30/ | Office | Cardiology | Smitha Griffin DO | | | 2019 | Visit | | [address] | | | | | | [place] | | | | | | [address] | | | | | | | [...] | + + + + + | [address] | [address] | [place], [place] | [phone] | | [facility] | | [address] | | | - LABORATORY | | [...] [place] | | | | | | [address] | | | | + + + [...] | [address] | [place] [address] | [phone] | + + + + + Protein [...] | Globulin % | | | [facility] | | | | | | MEDICAL [...] + | [facility] | [address] | [place] | [phone] | | [facility] | | [address] | | | - LABORATORY | | [...] [place] | | | | | | [address] | | | | + + + [...] [address] | [place] [address] | [phone] | + + + + + Methylmalonic [...] [place] | | | | | | [address] | | | | + + + [...] [address] | [place] [address] | [phone] | + + + + + Vitamin [...] FERRER. | [address] | [place] | [phone] | | [facility] | | [address] | | | - LABORATORY | | | | + + + + + documented in this encounter Visit Diagnoses + + | Diagnosis | + + | Peripheral polyneuropathy Unspecified hereditary and idiopathic peripheral neuropathy | + + documented in this encounter"
--- OUTSIDE RECORDS SUMMARY | ~2019-05-02 | XMS | Encounter Summary ---
Demographics + + + | Address | [address] | | | [place] [address] | + + + | Home Phone [...] | Author | [facility] | | | and Khurramana | + + + | Organization | [facility] | | | and [...] Team Providers + +------+ + | Care Mortgage Manager Name | Role | Phone | [...] + + | 10/14/ | Surgery | [facility] | Gregor Mccord MD | ERCP w/ stent pull | | 2017 | | MED CTR MP INTRA OP | [address], [place] | | | | | [address] | [address] [place], [place] | | | | | [place], [place] | [address] | | | | | [address] | | | | | | [phone] | | | +--------+---------+ + + + [...] the test. This includes: All prescription medicines Kqeg-jda-zkjddpd medicines that don't need a prescription Any [...] infection or torn bowel. Date Last Reviewed: 12/01/201419997583-4433 [employer]. [address] [place] [address], [place] [address]. All righ ts reserved. This information is [...] You cannot be awakened Date Last Reviewed: 04/01/201619995561-0459 [employer]. [address] [place] [address], [place] [address]. All righ ts reserved. This information is [...] + + + +---------+ + + | [place]-3 Fatty | Take 1 tablet by | [...] | Visit | | MD Alain[address] | | | | | | [place] | | | | | | [place] [address] | | | | | | [phone] | | | | | | | | +--------+---------+ + + + | 06/30/ | Office | Cardiology | Smitha Griffin DO | | | 2019 | Visit | | [address] | | | | | | [place] | | | | | | [id number] | | | | | | | [...] + + documented in this encounter Results [place] ERCP (10/14/2016 1:06 PM PDT) + + [...] 10/14/2016 12:25 | [employer]OVATION | | PMMRN: [id number] #: [id number] of : 1935dmit | | | Type: AmbulatoryAge: 80Room: [facility] 01Gender: FemaleNote Status: | | | FinalizedAttending MD: Gregor Mccord [facility] | | | ERCPIndications: Biliary stent removalProviders: | | | Gregor Mccord MD, Jalyn Ring RN, Blue Ball | | | ROBI Tello, Harinder Mcgowan [...] the anesthesiologist and | | | the refractory technician in the endoscopy suite. Mental Status [...] was visible on the | | | technology auditor film. The esophagus was successfully intubated under [...] Scope In: 12:40:12 PMScope Out: 12:55:03 PM [place] | | | [facility], [address] [place] [address] | | | [phone] | | | - Continue present medications. | | | - Return to primary care physician as previously scheduled. | | | - Telephone GI clinic if symptomatic. | | |Gregor cMcord MD | | |10/14/2016 1:11:31 PM | [...] |Scope Out: 12:55:03 PM | | | [place] [facility], [address] , [place], [place] | | | [address] | | + + -+ + +---------+ [...]
--- OUTSIDE RECORDS SUMMARY | ~2019-05-02 | XMS | Encounter Summary ---
Demographics + + + | Address | [address] | | | [place] [address] | + + + | Home Phone | | + + + | Preferred Language | Unknown | + + + | Marital Status | | + + + | Yarsani Affiliation | Unknown | + + + | Race | White | + + + | Ethnic Group | Not or | + + + Author + + + | Author | [facility] | + + + | Organization | [facility] | + + + | Address [...] Team Providers + +------+ + | Care Cell Maker Name | Role | Phone | [...] CH16D | | | | | | [facility] | | | | | | and Healing, | | | | | | Building [address], 5th | | | | | | Floor [place], [place] | | | | | | [address] | | | | | | [phone] | | | +--------+ + + + [...] ls | | | | | | Received:[id number]/WW-0 | | | | | | 360-16 [...] Materials | | | | | | Returned:[id number] | | | | | | 360-16 [...] [facility] | Mailcode [address]D, [address] | [place] [address] | | | DERMATOPATHOLOGY | [address] | | | + + + + + documented in this encounter Visit Diagnoses Not on filedocumented in this encounter"
--- OUTSIDE RECORDS SUMMARY | ~2019-05-02 | XMS | Encounter Summary ---
Demographics + + + | Address | [address] | | | [place] [address] | + + + | Home Phone [...] Author | [facility] Neal | | | and Khurramana | + + + | Organization | [facility] Neal [...] Team Providers + +------+ + | Care Signwriter Name | Role | Phone | + [...] | Gregor Brock MD | [address] | | | | | abnormality | [address] | [place], | | | | | Procedures | [address], [place] | [place] | | | | | MRI MRCP | [address] | [address] | | | | | Liver wo | [place] | Phone: | | | | | Contrast [place] | [address] | [phone] | | | | | MRI, | Phone: | Fax: | | | | | ABDOMEN | [phone] | [phone] | | | | | (MRI) | Fax: | | | | | | | [phone] | | +--------+--------+ + + + + [...] 2016 | | GASTROENTEROLOGY | [address], [place] | | | | | [address] [place] | [address] [place] [place] | | | | | [address] [place] | [address] | | | | | [address] | | | | | | [phone] | | | +--------+ + + + [...] [place] | | | | | | [place] [address] | | | | | | [phone] | | | | | | | | +--------+---------+ + + + | 06/30/ | Office | Cardiology | Smitha Griffin DO | | | 2019 | Visit | | [address] | | | | | | [place], [place] | | | | | | [address] | | | | | | | [...] JACEK | | 02/11/2016. PROTOCOL: Coronal T2 policy change clerk, axial T2 policy change clerk, coronal 3D | [facility] | | respiratory triggered, coronal [...] spine dated | | 02/11/2016.PROTOCOL: Coronal T2 policy change clerk, axial T2 policy change clerk, coronal 3D respiratory | | triggered,coronal T2 [...] A few more small subcentimeter | | E5raybzaqvbya cyst are seen within the left kidney [...] [address] | [place] | [phone] | | 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
--- OUTSIDE RECORDS SUMMARY | ~2019-05-02 | XMS | Encounter Summary ---
Demographics + + + | Address | [address] | | | [place] [address] | + + + | Home Phone [...] Author | [facility] | | | and Khurramana | + + + | Organization | [facility] | | | and [...] Team Providers + +------+ + | Care Voip Engineer Name | Role | Phone | [...] + + | 10/14/ | Surgery | [facility] | Gregor Mccord MD | ERCP w/ stent pull | | 2017 | | MED CTR MP INTRA OP | [address], [place] | | | | | [address] | [address] [place], [place] | | | | | [place], [place] | [address] | | | | | [address] | | | | | | [phone] | | | +--------+---------+ + + + [...] the test. This includes: All prescription medicines Zwis-jjk-ulrfpeg medicines that don't need a prescription Any [...] infection or torn bowel. Date Last Reviewed: 12/01/201419993654-9721 The [employer]. [address] [place] [address], [place] [address]. All righ ts reserved. This information is [...] You cannot be awakened Date Last Reviewed: 04/01/201619998952-9814 [employer]. [address] [place] [address], [place] [address]. All righ ts reserved. This information is [...] | | | | | | | ([facility]) | | | | | | | MISC | | | | | | + + + +---------+ + + | [place]-3 Fatty | Take 1 tablet by | [...] | | | | | [place] [id number] | | | | | | [phone] | | | | | | | | +--------+---------+ + + + | 06/30/ | Office | Cardiology | Smitha Griffin DO | | | 2019 | Visit | | [address] | | | | | | [place] | | | | | | [address] | | | | | | | [...] + + documented in this encounter Results [place] ERCP (10/14/2016 1:06 PM PDT) + + [...] 10/14/2016 12:25 | [employer]OVATION | | PMMRN: [id number] #: [id number] of : 1935dmit | | | Type: AmbulatoryAge: 80Room: [facility] 01Gender: FemaleNote Status: | | | FinalizedAttending MD: Gregor Mccord [facility]: | | | ERCPIndications: Biliary stent removalProviders: | | | Gregor Mccord MD, Jalyn Ring RN, [place] | | | ROBI Tello, Harinder Mcgowan [...] the anesthesiologist and | | | the pm technician in the endoscopy suite. Mental Status [...] was visible on the | | | bologna maker film. The esophagus was successfully intubated under [...] Scope In: 12:40:12 PMScope Out: 12:55:03 PM [place] | | | [facility], [address] [place] [address] | | | [phone] | | | - Continue present medications. [...] |Scope Out: 12:55:03 PM | | | [place] [facility], [address] , [place], [place] | | | [address] | | + + -+ + +---------+ [...]
--- OUTSIDE RECORDS SUMMARY | ~2019-05-02 | XMS | Clinical Summary ---
Demographics + + + | Address | [address] | | | [place] [address] | + + + | Home Phone [...] | Author | [facility] [employer] (Historical as of | | | 01-29-19) | + + + | Organization | [facility] [employer] (Historical as of | | | 01-29-19) | + + + | Address | Unknown | + + + | Phone | Unavailable | + + + Support + + + + + | Name | Relationship | Address | Phone | + + + + + | Alejo Murguia | DIRK | [address] | | | | | [place] [address] | | + + + + + Care Team Providers + +------+ + | Care Clerk Rating Name | Role | Phone | + [...]
--- OUTSIDE RECORDS SUMMARY | ~2019-05-02 | XMS | Encounter Summary ---
Demographics + + + | Address | [address] | | | [place] [address] | + + + | Home Phone [...] | Author | [facility] | | | and Khurramana | + + + | Organization | [facility] Neal | [...] Team Providers + +------+ + | Care Ultrasonic Hand Solderer Name | Role | Phone | + [...] | 09/26/ | Hospital | [facility] | Gregor Mccord MD | Choledocholithiasis | | 2017 | Encounter | MED CTR MP INTRA OP | [address] | (Primary Dx) | | | | [address] | [address] [place] | | | | | [place] | [address] | | | | | [address] | | | | | | [phone] | | | +--------+ + + + [...] or severe belly or abdominal pain Fever xivac706G (37.7C) or chills Upset stomach (nausea) and vomiting Black or tarry stools Date Last Reviewed: 11/25/201419994969-8864 [employer]. [address] [place] [address], [place] [address]. All righ ts reserved. This information is [...] | | | | | | | ([facility]) | | | | | | | MISC | | | | | | + + + +---------+ + + | [place]-3 Fatty | Take 1 tablet by | [...] [address] | | | | | | [place] [address] | | | | | | [phone] | | | | | | | | +--------+---------+ + + + | 06/30/ | Office | Cardiology | Smitha Griffin DO | | | 2019 | Visit | | [address] | | | | | | [place] | | | | | | [address] | | | | | | | [...] | | | | VONDA SHEPPARD MD ([id number]) | | | | | | on [...] | [facility] | | GastroenterologyPatient Name: November BolivarProcedure Date: 09/26/2016 | [employer]OVATION | | 12:24 PMMRN: [id number] #: [id number] of : | | | 1935dmit Type: AmbulatoryAge: 80Room: [facility] 01Gender: FemaleNote | | | Status: FinalizedAttending MD: Gregor Mccord , MDProcedure: | | | ERCPIndications: Filling defect on intraoperative | | | cholangiogramProviders: Gregor Mccord MD, Jalyn Darden | | | ROBI Ring, Pablo Rothman CMA, | | | Laurie Hammond, Qa Developer, Paty Beverly | | | Michelle, Qa Developer, Enrique Llanos MD (Anesthesia | | | [...] | | | the anesthesiologist and the sonogram technician in the endoscopy suite. | | [...] the procedure | | | well.Findings: A scout sniper film of the abdomen was obtained. | [...] | | 12:39:22 PMScope Out: 1:06:[address] [facility] | | | [place], [address] [place] [address] | | | - Continue present medications. [...] |Scope Out: 1:06:30 PM | | | [facility], [address] [place] [address] | | | [address] | | + + -+ + +---------+ [...] | | | | VONDA SHEPPARD MD ([id number]) | | | | | | on [...]
--- OUTSIDE RECORDS SUMMARY | ~2019-05-02 | XMS | Encounter Summary ---
Demographics + + + | Address | [address] | | | [place] [address] | + + + | Home Phone [...] | Author | [facility] Neal | | | and Khurramana | + + + | Organization | [facility] Neal [...] Team Providers + +------+ + | Care Lending Advisor Name | Role | Phone | [...] | | | | [address] [facility] | | | | | | [address] [place] | | | | | | [address] | | | | | | [phone] | | | +--------+ + + + [...] | | | | | [place] [address] | | | | | | [phone] | | | | | | | | +--------+---------+ + + + | 06/30/ | Office | Cardiology | Smitha Griffin DO | | | 2019 | Visit | | [address] | | | | | | [place] | | | | | | [address] | | | | | | | | +--------+---------+ + + + documented as of this encounter Visit Diagnoses Not on filedocumented in this encounter"
--- OUTSIDE RECORDS SUMMARY | ~2019-05-02 | XMS | Encounter Summary ---
Demographics + + + | Address | [address] | | | [place] [address] | + + + | Home Phone [...] Author | [facility] Neal | | | and Khurramana | + + + | Organization | [facility] Neal | | | and [...] Team Providers + +------+ + | Care Brick Wheeler Name | Role | Phone | + +------+ + | Susan Leos | PCP | | | PA-C | | | + +------+ + Encounter Details +--------+ + + + + | Date | Type | Department | Care Team | Description | +--------+ + + + + | 03/14/ | [facility] | [facility] | [place] | Left hip pain | | 2018 | Encounter | [place] [address] | MD [address] | | | | | [address] | [place] [address] | | | | | [place] | [place] [address] | | | | | [address] | [phone] | | | | | [phone] | | | +--------+ + + + [...] + + + +---------+ + + | [place]-3 Fatty | Take 1 tablet by | [...] | | | | | [place] [address] | | | | | | [phone] | | | | | | | | +--------+---------+ + + + | 06/30/ | Office | Cardiology | Smitha Griffin DO | | | 2019 | Visit | | [address] | | | | | | [place] | | | | | | [address] | | | | | | | [...]
--- OUTSIDE RECORDS SUMMARY | ~2019-05-02 | XMS | Encounter Summary ---
Demographics + + + | Address | [address] | | | [place] [address] | + + + | Home Phone [...] | Author | [facility] Neal | | | and Khurramana | + + + | Organization | [facility] Neal [...] Team Providers + +------+ + | Care Physiotherapy Assistant Name | Role | Phone | [...] + + | 03/29/ | Anesthesia | [facility] | Michela Eli | | | 2019 | Event | [facility] | MD J[address] | | | | | OPER[address] | [place], [place] | | | | | [facility] | [address] | | | | | [place], [place] | | | | | | [address] | | | | | | [phone] | | | +--------+ + + + [...] +----+---+ + + | | 0 | [place] | | | | 8 | 43-degrees [...] 03/30/19 0431 by | | eral | bdhg-uun-rlmdrh catheter system; | Paula Young RN | [...] | | | | | [place] [address] | | | | | | [phone] | | | | | | | | +--------+---------+ + + + | 06/30/ | Office | Cardiology | Smitha Griffin DO | | | 2019 | Visit | | [address] | | | | | | [place] | | | | | | [address] | | | | | | | [...]
--- OUTSIDE RECORDS SUMMARY | ~2019-05-02 | XMS | Encounter Summary ---
Demographics + + + | Address | [address] | | | [place] [address] | + + + | Home Phone [...] [facility] Neal | | | and Khurramana | + + + | Organization | [facility] Neal | | | and [place] | [...] Team Providers + +------+ + | Care Electroplating Laborer Name | Role | Phone | + [...] + | 03/03/ | Telephone | [facility] | Malcom Mojica, | [place] (discuss lab | | 2016 | | PHYSIATRY [address] | MD Desi SMITH | work ) | | | | [place], | [address] [place] | | | | | [place] [address] | [address] | | | | | [phone] | | | +--------+ + + + [...] | | | | [facility] [address] | | | | | | [phone] | | | | | | | | +--------+---------+ + + + | 06/30/ | Office | Cardiology | Smitha Griffin DO | | | 2020 | Visit | | [address] | | | | | | [place] | | | | | | [address] | | | | | | | | +--------+---------+ + + + documented as of this encounter Visit Diagnoses Not on filedocumented in this encounter"
--- OUTSIDE RECORDS SUMMARY | ~2019-05-02 | XMS | Clinical Summary ---
Demographics + + + | Address | [address] | | | [place] [address] | + + + | Home Phone | | + + + | Preferred Language | Unknown | + + + | Marital Status | | + + + | Judaism Affiliation | Unknown | + + + [...] Team Providers + +------+ + | Care Trade Mark Examiner Name | Role | Phone | + +------+ + PCP | Unavailable | + +------+ + Source Comments FIORELLA is fully live on both [facility] Ambulatory and [facility] InPatient.[facility] Allergies Not on File Medications Not on [...] | MOD[employer] | xxxxxxxxx | Effect | [phone] | [address] | PPO | | | MEDICA | | nestor | 4 | [address] | | | | RE PPO | | for | | [place], | | | | | | all | | [place] [address] | | | | | | dates [...] | 1936 | [phone] | [place] [address] | | | aissatou | | | 3 (Home) | | + +--------+ +--------+ + +"
--- OUTSIDE RECORDS SUMMARY | ~2019-05-02 | XMS | Encounter Summary ---
Demographics + + + | Address | [address] | | | [place] [address] | + + + | Home Phone [...] Team Providers + +------+ + | Care Store Protection Specialist Name | Role | Phone | [...] [address] | | | | | | [place], [place] | | | | | | [address] | | | +--------+ + + + [...]
--- OUTSIDE RECORDS SUMMARY | ~2019-05-02 | XMS | Encounter Summary ---
Demographics + + + | Address | [address] | | | [place] [address] | + + + | Home Phone [...] Author | [facility] Neal | | | and Khurramana | + + + | Organization | [facility] Neal [...] Providers + +------+ + | Care Data Assistant Name | Role | Phone | + +------+ + | Susan Leos | PCP | | | PA-C | | | + +------+ + Encounter Details +--------+ + + + + | Date | Type | Department | Care Team | Description | +--------+ + + + + | 03/21/ | Preadmit | [facility] | [place] | | | 2019 | Visit | [facility] | MD [address]ain[address] | | | | | CLINIC [address] | [place] | | | | | [place] | [place] [address] | | | | | [address] | [phone] | | | | | [phone] | | | +--------+ + + + [...] were given in the hospital. Wear them emh20loxdtz d ay for3 to 4weeks. To relieve discomfort at night, get up and move around. Tell all your healthcare providers including your dentist about your artificial join t before any procedure. You mayneed to take antibiotics before dental work and other medic al procedures to reduce the risk of infection. Arrangeto have your lobito removed nmmebs1tyzld after surgery. The lobito were u sed [...] ur hip joint. Use a raisedtoilet seat hqe9dxmsu after surgery. Ask your healthcare provider if [...] put on socks and shoes. And don't picking machine operator items from the floor. Use [...] draining from the incision Date Last Reviewed: 10/13/201719993381-4393 [employer]. [address] [place] [address]. All righ ts reserved. This information is not intended as a substitute for professional medical care. Always follow your healthcare professional's instructions. Outpatient Medications Marked as Taking for the 03/21/19 encounter (Preadmit Visit) with [facility] ROOM 2 Medication Sig Instructions acetaminophen (TYLENOL) [...] TAKE day of proced ure Multiple Vitamins-Minerals ([facility]) MISC Take by mouth. DO NOT TAKE day of procedure [place]-3 Fatty Acids (PRO NUTRIENTS OMEGA 3 PO) [...] 2018 | Visit | | MD Alaina [address] | | | | | | [place] | | | | | | [place] [address] | | | | | | [phone] | | | | | | | | +--------+---------+ + + + | 06/30/ | Office | Cardiology | Smitha Griffin DO | | | 2019 | Visit | | [address] | | | | | | [place] | | | | | | [address] | | | | | | | [...] | [facility] | | | Screen | [facility];[address] | | LABORATORY | | | | [address];[place] [address] | | | | + + + + + + + + | Specimen | + + | Blood | + + + + + + + | Performing | Address | City/State/Zipcode | Phone Number | | Organization | | | | + + + + + | [facility] | [address] | [place] [address] | [phone] | + + + + + MRSA [...] | | | | performed at [facility];[address] | | LABORATORY | | | | [address];[place] | | | | | | [address] | | | | + + + + + + + + | Specimen | + + | Tissue - Both | | anterior nares (body | | structure) | + + + + + + + | Performing | Address | City/State/Zipcode | Phone Number | | Organization | | | | + + + + + | [facility] | [address] | [place] [address] | [phone] | + + + + + Hemoglobin A1C (03/21/2019 3:33 PM PDT) + + + + + + | Component | Value | Ref Range | Performed | Pathologist | | | | | At | Signature | + + + + + + | Hemoglobin | 5.8Comment: HbA1c method | 4.0 - 6.0 % | [facility] | | | A1c | is certified by [facility] | | LABORATORY | | | | [...] <154 mg/dL | [facility] | | | Average | Average Glucose | | LABORATORY | | | Glucose | calculated from | | | | | | hemoglobin A1c by use of | | | | | | the ADArecommended | | | | | | formula.Testing | | | | | | performed at [facility], [address] | | | | | | [place] [facility] [address], | | | | | | [place] [address] | | | | + + + + + + + + | Specimen | + + | Blood | + + + + + + + | Performing | Address | City/State/Zipcode | Phone Number | | Organization | | | | + + + + + | [facility] | [address] | [place] [address] | [phone] | + + + + + CBC [...] | | | | performed at [facility];[address] | | | | | | [address];[place] | | | | | | [address] | | | | + + + + + + + + | Specimen | + + | Blood | + + + + + + + | Performing | Address | City/State/Zipcode | Phone Number | | Organization | | | | + + + + + | [facility] | [address] | [place] [address] | [phone] | + + + + + Basic [...] | >60 | [facility] | | | GFR | CHRONIC KIDNEY [...] | | | | | | [facility] traceable | | | | | | equation.Testing | | | | | | performed at [facility];[address] | | | | | | [facility];[place], [place] | | | | | | [address] | | | | + + + + + + + + | Specimen | + + | Blood | + + + + + + + | Performing | Address | City/State/Zipcode | Phone Number | | Organization | | | | + + + + + | [facility] | [address] | [place] [address] | [phone] | + + + + + ECG [...]
--- OUTSIDE RECORDS SUMMARY | ~2019-05-02 | XMS | Encounter Summary ---
Demographics + + + | Address | [address] | | | [place] [address] | + + + | Home Phone [...] Author | [facility] | | | and Khurarmana | + + + | Organization | [facility] | [...] Team Providers + +------+ + | Care Shooter Helper Name | Role | Phone | [...] + + | 09/26/ | Hospital | [facility] | Gregor Mccord MD | Choledocholithiasis | | 2017 | Encounter | MED CTR MP INTRA OP | [address] | (Primary Dx) | | | | [address] | [address] [place] | | | | | [place] | [address] | | | | | [address] | | | | | | [phone] | | | +--------+ + + + [...] documented in this encounter Discharge Instructions Instructions Tyaa Carlos RN - 09/26/2016 Discharge Instructions for [...] or severe belly or abdominal pain Fever adzup279U (37.7C) or chills Upset stomach (nausea) and vomiting Black or tarry stools Date Last Reviewed: 11/25/201419999525-8934 [employer]. [address] [place] [address], [place] [address]. All righ ts reserved. This information is [...] + + + +---------+ + + | [place]-3 Fatty | Take 1 tablet by | [...] [place]FU[place]ES | | | | | | [place] [address] | | | | | | [phone] | | | | | | | | +--------+---------+ + + + | 06/30/ | Office | Cardiology | Smitha Griffin DO | | | 2019 | Visit | | [address] | | | | | | [place] | | | | | | [address] | | | | | | | [...] | | | | VONDA SHEPPARD MD ([id number]) | | | | | | on [...] | W[facility] | | GastroenterologyPatient Name: November MiamiProcedure Date: 09/26/2016 | PROVATION | | 12:24 PMMRN: [id number] #: [id number] of : | | | 1935dmit Type: AmbulatoryAge: 80Room: [facility] 01Gender: FemaleNote | | | Status: FinalizedAttending MD: Gregor Mccord , MDProcedure: | | | ERCPIndications: Filling defect on intraoperative | | | cholangiogramProviders: Gregor Mccord MD, Jalyn Darden | | | ROBI Ring, Pablo Rothman CMA, | | | Laurie Hammond, Trucking Contractor, Paty Beverly | | | Michelle, Trucking Contractor, Enrique Llanos MD (Anesthesia | | | [...] | | | the anesthesiologist and the body technician/painter in the endoscopy suite. | | | [...] the procedure | | | well.Findings: A container repairer film of the abdomen was obtained. | [...] | | 12:39:22 PMScope Out: 1:06:30 PM [facility] | | | [place], [address] [place] [address] | | | - Continue present medications. [...] |Scope Out: 1:06:30 PM | | | [facility], [address] [place] [address] | | | [address] | | + + -+ + +---------+ [...] | | | | VONDA SHEPPARD MD ([id number]) | | | | | | on [...]
--- OUTSIDE RECORDS SUMMARY | ~2019-05-02 | XMS | Clinical Summary ---
Demographics + + + | Address | [address] | | | [place] [address] | + + + | Home Phone [...] Author | [facility] | | | and Khurramana | + + + | Organization | [facility] | [...] Providers + +------+ + | Care Paper Sorter Name | Role | Phone | [...] | | | | e | | ([facility]) | | | | | | | | MISC | | | | | | | + + + +---------+------+------+-------+ | Dennis-3 Fatty | Take 1 tablet by | [...] automatically from request for surgery | | [id number] | + + + + + | [...] Appointment | | 2018 | | | Double End Sewer | | +--------+ + + + + [...] | | | | | [place] [address] | | | | | | [phone] | | | | | | | | +--------+---------+ + + + | 06/30/ | Office | Cardiology | Smitha Griffin DO | | | 2019 | Visit | | [address] | | | | | | [place] | | | | | | [address] | | | | | | | [...] /NA | | Mark Foley MD at [facility] | | | | | | /[id number] | | [facility] | | | | | | [...] /NA | | Mark Foley MD at [facility] | | | | | | /[id number] | | [facility] | | | | | | [...] /NA | | Mark Foley MD at [facility] | | | | | | /[id number] | | [facility] | | | | | | 802 | + +--------+--------+ +--------+--------+--------+ | Stent Bili Advnx 10fr 5cm - | Stent | | [place] | | | 3432 / | | [id number]: Qty: 1 on | | | SCIENTIFIC | | | / | | 09/26/2016 by Gregor Mccord | | | BIGG - MATTY | | | | Lucille Brock MD at [facility] | | | | | | | | [facility] | | | | | [...] /NA | | Mark Foley MD at [facility] | | | | | | /[id number] | | [facility] | | | | | | 901A | + +--------+--------+ +--------+--------+--------+ | Screw Hex Lp [id number] - | | Left: | RANDI | | 11/20/ | 7030-6 | | SnaImplanted: Qty: 1 on | | Hip | MEDICAL - | | 2023 | 530 | | 03/29/2019 by Nan, | | | STRSebastian | | | /NA | | Mark Foley MD at [facility] | | | | | | /[id number] | | [facility] | | | | | | [...] | LABORATORY | | | | [address];[place], [place] | | | | | | [address] | | | | + + + + + + + + | Specimen | + + | | + + + + + + + | Performing | Address | City/State/Zipcode | Phone Number | | Organization | | | | + + + + + | [facility] | [address] | [place] [address] | [phone] | + + + + + Hemoglobin [...] Testing | 34.0 - 46.0 % | [facility] | | | | performed at [facility];[address] | | LABORATORY | | | | [address];[place], [place] | | | | | | [address] | | | | + + + + + + + + | Specimen | + + | Blood | + + + + + + + | Performing | Address | City/State/Zipcode | Phone Number | | Organization | | | | + + + + + | [facility] | [address] | [place] [address] | [phone] | + + + + + XR [...] + + + | BB BAND | [id number] | | [facility] | | | | | | LABORATORY | | + + + + + + | BB BAND | Testing performed at | | [facility] | | | | [facility];[address] | LABORATORY | | | | [address];[place] [address] | | | | + + + + + + + + | Specimen | + + | Blood | + + + + + + + | Performing | Address | City/State/Zipcode | Phone Number | | Organization | | | | + + + + + | [facility] | [address] | [place] [address] | [phone] | + + + + + Neuraxial [...] | LABORATORY | | | | [address];[place] | | | | | | [address] | | | | + + + + + + + + | Specimen | + + | Tissue - Both | | anterior nares (body | | structure) | + + + + + + + | Performing | Address | City/State/Zipcode | Phone Number | | Organization | | | | + + + + + | [facility] | [address] | [place] [address] | [phone] | + + + + + CBC [...] | | | | | performed at [facility];[address] | | | | | | [address];[place] | | | | | | [address] | | | | + + + + + + + + | Specimen | + + | Blood | + + + + + + + | Performing | Address | City/State/Zipcode | Phone Number | | Organization | | | | + + + + + | [facility] | [address] | [place] [address] | [phone] | + + + + + Hemoglobin A1C (03/21/2019 3:33 PM PDT) + + + + + + | Component | Value | Ref Range | Performed | Pathologist | | | | | At | Signature | + + + + + + | Hemoglobin | 5.8Comment: HbA1c method | 4.0 - 6.0 % | [facility] | | | A1c | is certified by [facility] | | LABORATORY | | | [...] | 120Comment: Estimated | <154 mg/dL | [facility] | | | Average | Average Glucose | | LABORATORY | | | Glucose | calculated from | | | | | | hemoglobin A1c by use of | | | | | | the ADArecommended | | | | | | formula.Testing | | | | | | performed at [facility], [address] | | | | | | [facility], | | | | | | [place] [address] | | | | + + + + + + + + | Specimen | + + | Blood | + + + + + + + | Performing | Address | City/State/Zipcode | Phone Number | | Organization | | | | + + + + + | [facility] | [address] | [place] [address] | [phone] | + + + + + Basic [...] | | | | | MDRD [facility] traceable | | | | | | equation.Testing | | | | | | performed at [facility];[address] | | | | | | [facility];[place], [place] | | | | | | [address] | | | | + + + + + + + + | Specimen | + + | Blood | + + + + + + + | Performing | Address | City/State/Zipcode | Phone Number | | Organization | | | | + + + + + | [facility] | [address] | [place] [address] | [phone] | + + + + + ECG [...] | [facility] | [facility] | [id number] | 06/15/19 | | | Medica | | | HEALTH | | 17-Pre | | | re | | | MDCR | | sent | | | | + +--------+ +--------+-------+---------+--------+ | [facility] | [facility] | [id number] | | | | Medica | | [...] | 1936 | [phone] | [place] [address] | | | aissatou | | | 3 (Home) | | + +--------+ +--------+ + + | Scarlet Murguia D | Person | Self | [birth year] | [address] | | | al/Fam | | 1936 | [phone] | [place] [address] | | | aissatou | | | 3 (Home) | | + +--------+ +--------+ + + Advance Directives + + + + + | Type | Date Recorded | Patient | Explanation | | | | Wind Farm Designer | | + + + + + | Power of | | | | | Sheriff'S Detective | | | | + + + [...]
--- OUTSIDE RECORDS SUMMARY | ~2019-05-02 | XMS | Encounter Summary ---
Demographics + + + | Address | [address] | | | [place] [address] | + + + | Home Phone [...] | Author | [facility] Neal | | | and Khurramana | + + + | Organization | [facility] [...] Team Providers + +------+ + | Care Redeye Gunner Name | Role | Phone | + [...] [address] | | | | [place], | [place], | | | | | [place] [address] | [place] [address] | | | | | [phone] | [phone] | | | | | | | [...] [place] | | | | | | [place] [address] | | | | | | [phone] | | | | | | | | +--------+---------+ + + + | 06/30/ | Office | Cardiology | Smitha Griffin DO | | | 2019 | Visit | | [address] | | | | | | [place] | | | | | | [address] | | | | | | | | +--------+---------+ + + + documented as of this encounter Visit Diagnoses Not on filedocumented in this encounter"
--- OUTSIDE RECORDS SUMMARY | ~2019-05-02 | XMS | Encounter Summary ---
Demographics + + + | Address | [address] | | | [place] [address] | + + + | Home Phone [...] + + | Author | [facility] | | | and Khurramana | + + + | Organization | [facility] | | | [...] Team Providers + +------+ + | Care Woodwork Salvage Inspector Name | Role | Phone | [...] | | | | | | | CA ERCP DX | | | | | | | COLLECTION | | | | | | | SPECIMEN | | | | | | | BRUSHING/WAS | | | | | | | [place] | | | | | | | [...] Hospital | [facility] | Gregor Mccord MD | Choledocholithiasis | | 2017 | Encounter | MED CTR MP INTRA OP | [address], [place] | (Primary Dx) | | | | [address] | [address] [place], [place] | | | | | [place], [place] | [address] | | | | | [address] | | | | | | [phone] | | | +--------+ + + + [...] the test. This includes: All prescription medicines Yowb-wzl-vfmekxv medicines that don't need a prescription Any [...] infection or torn bowel. Date Last Reviewed: 12/01/201419994228-9476 [employer]. [address] [place] [address], [place] [address]. All righ ts reserved. This information is [...] You cannot be awakened Date Last Reviewed: 04/01/201619993653-5329 [employer]. [address] [place] [address]. All righ ts reserved. This information is [...] | | | | | | ([facility]) | | | | | | | MISC | | | | | | + + + +---------+ + + | [place]-3 Fatty | Take 1 tablet by | [...] [place] | | | | | | [place] [address] | | | | | | [phone] | | | | | | | | +--------+---------+ + + + | 06/30/ | Office | Cardiology | Smitha Griffin DO | | | 2019 | Visit | | [address] | | | | | | [place] | | | | | | [address] | | | | | | | [...] 10/14/2016 12:25 | PROVATION | | PMMRN: [id number] #: [id number] of : 1936Admit | | | Type: AmbulatoryAge: 80Room: [facility] 01Gender: FemaleNote Status: | | | FinalizedAttending MD: Gregor Mccord [facility]cedure: | | | ERCPIndications: Biliary stent removalProviders: | | | Gregor Mccord MD, Jalyn Ring RN, Gilmore | | | ROBI Tello, Harinder Mcgowan [...] the anesthesiologist and | | | the entry level automotive technician in the endoscopy suite. Mental Status [...] was visible on the | | | cherry picker operator film. The esophagus was successfully intubated [...] Scope In: 12:40:12 PMScope Out: 12:55:03 PM [place] | | | [facility], [address] [place] [address] | | | [phone] | | | - Continue present medications. [...] |Scope Out: 12:55:03 PM | | | [facility], [address] [place] | | | [address] | | + + -+ + +---------+ [...]
--- OUTSIDE RECORDS SUMMARY | ~2019-05-02 | XMS | Encounter Summary ---
Demographics + + + | Address | [address] | | | [place] [address] | + + + | Home Phone [...] | Author | [facility] | | | and Khurramana | + + + | Organization | [facility] Neal | | [...] Team Providers + +------+ + | Care Color Laboratory Technician Name | Role | Phone | [...] + + | 04/07/ | Office | [facility] | Malcom Mojica, | [place] en[place]quezia | | 2016 | Visit | PHYSIATRY [address] | (Primary Dx) | | | | [place], | [place] [address] [place] | | | | | [place] [address] | [address] | | | | | [phone] | | | +--------+---------+ + + + [...] Medicine Consult Note Malcom Mojica MD [address] [facility], [address] [place] [address] FAX: CHIEF COMPLAINT: Chief Complaint [...] [facility]) MISC Take by mouth. [place]-3 Fatty Acids (PRO NUTRIENTS OMEGA 3 PO) [...] ankles Coordination: There is no dysmetria on mqfpul-my-zznc and lxem-navt-dgck. There Romberg is mildly positiv e with [...] think that any further work-up would change booth attendant at this time. Her primary symptoms is [...] | | | | | [place] [address] | | | | | | [phone] | | | | | | | | +--------+---------+ + + + | 06/30/ | Office | Cardiology | Smitha Griffin DO | | | 2019 | Visit | | [address] | | | | | | [place] | | | | | | [id number] | | | | | | | | +--------+---------+ + + + documented as of this encounter Visit Diagnoses + + | Diagnosis | + + | Hyper reflexia - Primary Abnormal reflex | + + documented in this encounter
--- OUTSIDE RECORDS SUMMARY | ~2019-05-02 | XMS | Encounter Summary ---
Demographics + + + | Address | [address] | | | [place] [address] | + + + | Home Phone [...] | Author | [facility] | | | and Khurramana | + + + | Organization | [facility] | | | and [...] Team Providers + +------+ + | Care Referral And Information Aide Name | Role | Phone | [...] | disc disease), | | | | [place], | [address] [place], | lumbar; | | | | [place] [address] | [place] [address] | Spondylolisthesis at | | | | [phone] | [phone] | L4-L5 level; | | | | [...] [place] | | | | | | [place] [address] | | | | | | [phone] | | | | | | | | +--------+---------+ + + + | 06/30/ | Office | Cardiology | Smitha GriffinDO | | | 2019 | Visit | | [address] | | | | | | [place] | | | | | | [address] | | | | | | | [...]
--- OUTSIDE RECORDS SUMMARY | ~2019-05-02 | XMS | Encounter Summary ---
Demographics + + + | Address | [address] | | | [place] [address] | + + + | Home Phone [...] + | Author | [facility] Neal | | | and Khurramana | + + + | Organization | [facility] Neal | [...] Team Providers + +------+ + | Care Sand Slinger Operator Name | Role | Phone | [...] 2017 | | GASTROENTEROLOGY | [address], [place] | stent pull) | | | | [address] [place] | [address] [place], [place] | | | | | [address] [place], [place] | [address] | | | | | [address] | | | | | | [phone] | | | +--------+ + + + [...] | | | | | [place] [address] | | | | | | [phone] | | | | | | | | +--------+---------+ + + + | 06/30/ | Office | Cardiology | Smitha Griffin DO | | | 2019 | Visit | | [address] | | | | | | [place] | | | | | | [address] | | | | | | | [...]
--- OUTSIDE RECORDS SUMMARY | ~2019-05-02 | XMS | Encounter Summary ---
Demographics + + + | Address | [address] | | | [place] [address] | + + + | Home Phone [...] | [facility] Neal | | | and Khurramana | + + + | Organization | [facility] Neal | | | and [...] Providers + +------+ + | Care Continuous Improvement Director Name | Role | Phone | [...] | Office | [facility] | Malcom Mojica, | [place] enriquezia | | 2016 | Visit | PHYSIATRY [address] | [address] | (Primary Dx) | | | | [place], | [place] [address] [place] [place] | | | | | [place] [address] | [address] | | | | | [phone] | | | +--------+---------+ + + + [...] Medicine Consult Note Malcom Mojica MD [address] [facility], [address] [place] [address] FAX: CHIEF COMPLAINT: Chief Complaint [...] 1 tablet by mouth Daily. Multiple Vitamins-Minerals ([facility]) MISC Take by mouth. [place]-3 Fatty Acids (PRO NUTRIENTS OMEGA 3 PO) [...] ankles Coordination: There is no dysmetria on uvbdkn-rc-qmka and udij-chxk-xjws. There Romberg is mildly positiv e with [...] not think that any further work-up would acid changer at this time. Her primary symptoms [...] | | | | | [place] [address] | | | | | | [phone] | | | | | | | | +--------+---------+ + + + | 06/30/ | Office | Cardiology | Smitha Griffin DO | | | 2019 | Visit | | [address] | | | | | | [place] | | | | | | [id number] | | | | | | | | +--------+---------+ + + + documented as of this encounter Visit Diagnoses + + | Diagnosis | + + | Hyper reflexia - Primary Abnormal reflex | + + documented in this encounter
--- OUTSIDE RECORDS SUMMARY | ~2019-05-02 | XMS | Encounter Summary ---
Demographics + + + | Address | [address] | | | [place] [address] | + + + | Home Phone [...] Author | [facility] Neal | | | and Khurramana | + + + | Organization | [facility] [...] Team Providers + +------+ + | Care Pcb Design Engineer Name | Role | Phone | + +------+ + | Susan Leos | PCP | | | PA-C | | | + +------+ + Encounter Details +--------+ + + + + | Date | Type | Department | Care Team | Description | +--------+ + + + + | 03/21/ | Preadmit | [facility] | Mark [place] | | | 2019 | Visit | [facility] | MD [address] | | | | | CLINIC [address] | [place] | | | | | SAM JAY EM MD | [place] [address] | | | | | [address] | [phone] | | | | | [phone] | | | +--------+ + + + [...] were given in the hospital. Wear them odz00utfshz d ay for3 to 4weeks. To relieve discomfort at night, get up and move around. Tell all your healthcare providers including your dentist about your artificial join t before any procedure. You mayneed to take antibiotics before dental work and other medic al procedures to reduce the risk of infection. Arrangeto have your lobito removed psbrqs3ydarz after surgery. The lobito were u sed [...] ur hip joint. Use a raisedtoilet seat gbw4djrnz after surgery. Ask your healthcare provider if [...] on socks and shoes. And don't picking belt operator items from the floor. Use a [...] draining from the incision Date Last Reviewed: 10/13/201719999104-3335 [employer] [address] [place] [address]. All righ ts reserved. This information is not intended as a substitute for professional medical care. Always follow your healthcare professional's instructions. Outpatient Medications Marked as Taking for the 03/21/19 encounter (Preadmit Visit) with [facility] ROOM 2 Medication Sig Instructions acetaminophen (TYLENOL) [...] TAKE day of proced ure Multiple Vitamins-Minerals ([facility]) MISC Take by mouth. DO NOT TAKE day of procedure [place]-3 Fatty Acids (PRO NUTRIENTS OMEGA 3 PO) [...] 2018 | Visit | | MD [address]ain[address] | | | | | | [place] | | | | | | [place] [address] | | | | | | [phone] | | | | | | | | +--------+---------+ + + + | 06/30/ | Office | Cardiology | Smitha Griffin DO | | | 2019 | Visit | | [address] | | | | | | [place] | | | | | | [address] | | | | | | | [...] | [facility] | | | Screen | [facility];[address] | | LABORATORY | | | | [address];[place] [address] | | | | + + + + + + + + | Specimen | + + | Blood | + + + + + + + | Performing | Address | City/State/Zipcode | Phone Number | | Organization | | | | + + + + + | [facility] | [address] | [place] [address] | [phone] | + + + + + MRSA [...] | LABORATORY | | | | [address];[place] | | | | | | [address] | | | | + + + + + + + + | Specimen | + + | Tissue - Both | | anterior nares (body | | structure) | + + + + + + + | Performing | Address | City/State/Zipcode | Phone Number | | Organization | | | | + + + + + | [facility] | [address] | [place] [address] | [phone] | + + + + + Hemoglobin A1C (03/21/2019 3:33 PM PDT) + + + + + + | Component | Value | Ref Range | Performed | Pathologist | | | | | At | Signature | + + + + + + | Hemoglobin | 5.8Comment: HbA1c method | 4.0 - 6.0 % | [facility] | | | A1c | is [...] | 120Comment: Estimated | <154 mg/dL | [facility] | | | Average | Average Glucose | | LABORATORY | | | Glucose | calculated from | | | | | | hemoglobin A1c by use of | | | | | | the ADArecommended | | | | | | formula.Testing | | | | | | performed at [facility], [address] | | | | | | [facility], | | | | | | [place] [address] | | | | + + + + + + + + | Specimen | + + | Blood | + + + + + + + | Performing | Address | City/State/Zipcode | Phone Number | | Organization | | | | + + + + + | [facility] | [address] | [place] [address] | [phone] | + + + + + CBC [...] | | | | | | [address] [place];[place] | | | | | | [address] | | | | + + + + + + + + | Specimen | + + | Blood | + + + + + + + | Performing | Address | City/State/Zipcode | Phone Number | | Organization | | | | + + + + + | [facility] | [address] | [place] [address] | [phone] | + + + + + Basic [...] | >60Comment: GFR <60: | >60 | [facility] | | | GFR | CHRONIC [...] | | | | | | MDRD [facility] traceable | | | | | | equation.Testing | | | | | | performed at [facility];[address] | | | | | | [facility];[place], [place] | | | | | | [address] | | | | + + + + + + + + | Specimen | + + | Blood | + + + + + + + | Performing | Address | City/State/Zipcode | Phone Number | | Organization | | | | + + + + + | [facility] | [address] | [place] [address] | [phone] | + + + + + ECG [...]
--- OUTSIDE RECORDS SUMMARY | ~2019-05-02 | XMS | Encounter Summary ---
Demographics + + + | Address | [address] | | | [place] [address] | + + + | Home Phone [...] | [facility] | | | and Khurramana | + + + | Organization | [facility] | [...] Team Providers + +------+ + | Care Motor Bus Driver Name | Role | Phone | [...] | | 2018 | | [place] [address] [address] | Telephone Cleaner | | | | | [place] | | | | | | [address] | | | | | | [phone] | | | +--------+ + + + [...] [place] | | | | | | [place] [address] | | | | | | [phone] | | | | | | | | +--------+---------+ + + + | 06/30/ | Office | Cardiology | Smitha Griffin DO | | | 2020 | Visit | | [address] | | | | | | [place] | | | | | | [address] | | | | | | | | +--------+---------+ + + + documented as of this encounter Visit Diagnoses Not on filedocumented in this encounter"
--- OUTSIDE RECORDS SUMMARY | ~2019-05-02 | XMS | Encounter Summary ---
Demographics + + + | Address | [address] | | | [place] [address] | + + + | Home Phone [...] | Author | [facility] Neal | | | and Khurramana | + + + | Organization | [facility] [...] Team Providers + +------+ + | Care Interior Wall Assembler Name | Role | Phone | [...] Hyper | MD Malcom | [address] | | | | | reflexia | [address] | [place] | | | | | Abnormal | [place] | [place] | | | | | gait | 224 | [address] | | | | | Procedures | [place] | Phone: | | | | | MRI Cervical | [address] | [phone] | | | | | Spine wo | Phone: | Fax: | | | | | Contrast | [phone] | [phone] | | | | | | Fax: | | | | | | | [phone] | | +--------+--------+ + + + + [...] | (Primary Dx); | | | | [place], | [address] [place] | Abnormal gait | | | | [place] [address] | [address] | | | | | [phone] | | | +--------+ + + + [...] | | | | | [place] [address] | | | | | | [phone] | | | | | | | | +--------+---------+ + + + | 06/30/ | Office | Cardiology | Smitha Griffin DO | | | 2019 | Visit | | [address] | | | | | | [place] | | | | | | [address] | | | | | | | [...]
--- OUTSIDE RECORDS SUMMARY | ~2019-05-02 | XMS | Encounter Summary ---
Demographics + + + | Address | [address] | | | [place] [address] | + + + | Home Phone [...] + | Author | [facility] | | | and Khurramana | + + + | Organization | [facility] | | [...] Providers + +------+ + | Care Barrel Cap Setter Name | Role | Phone | [...] 2016 | | GASTROENTEROLOGY | [address], [place] | (Scheduled ERCP) | | | | [address] [place] | [address] [place], [place] | | | | | [address] [place], [place] | [address] | | | | | [address] | | | | | | [phone] | | | +--------+ + + + [...] | | | | | [place] [address] | | | | | | [phone] | | | | | | | | +--------+---------+ + + + | 06/30/ | Office | Cardiology | Smitha Griffin DO | | | 2019 | Visit | | [address] | | | | | | [place] | | | | | | [address] | | | | | | | | +--------+---------+ + + + documented as of this encounter Visit Diagnoses + + | Diagnosis | + + | Common bile duct stone - Primary Calculus of bile duct without mention of | | cholecystitis or obstruction | + + documented in this encounter"
--- OUTSIDE RECORDS SUMMARY | ~2019-05-02 | XMS | Encounter Summary ---
Demographics + + + | Address | [address] | | | [place] [address] | + + + | Home Phone [...] | Author | [facility] Neal | | | and Khurramana | + + + | Organization | [facility] Neal [...] Team Providers + +------+ + | Care Photocopying Equipment Repairer Name | Role | Phone | [...] 2017 | | GASTROENTEROLOGY | [address], [place] | MRCP Liver without | | | | [address] [place] | [address] [place] | contrast scheduled) | | | | [address] [place] | [address] | | | | | [address] | | | | | | [phone] | | | +--------+ + + + [...] | | | | | [place] [address] | | | | | | [phone] | | | | | | | | +--------+---------+ + + + | 06/30/ | Office | Cardiology | Smitha Griffin DO | | | 2019 | Visit | | [address] | | | | | | [place] | | | | | | [address] | | | | | | | | +--------+---------+ + + + documented as of this encounter Visit Diagnoses Not on filedocumented in this encounter"
--- OUTSIDE RECORDS SUMMARY | ~2019-05-02 | XMS | Encounter Summary ---
Demographics + + + | Address | [address] | | | [place] [address] | + + + | Home Phone [...] | Author | [facility] Neal | | | and Khurramana | + + + | Organization | [facility] Neal [...] Team Providers + +------+ + | Care Port Crane Operator Name | Role | Phone | [...] Post-op Question | | 2018 | | [address] | MD Alaina [address] | | | | | [address] [place], [place] | [place]VD [place] | | | | | [address] | [place] [address] | | | | | [phone] | [phone] | | | | | | | [...] | | | | | [place] [address] | | | | | | [phone] | | | | | | | | +--------+---------+ + + + | 06/30/ | Office | Cardiology | Smitha Griffin DO | | | 2020 | Visit | | [address] | | | | | | [place] | | | | | | [address] | | | | | | | | +--------+---------+ + + + documented as of this encounter Visit Diagnoses Not on filedocumented in this encounter"
--- OUTSIDE RECORDS SUMMARY | ~2019-05-02 | XMS | Encounter Summary ---
Demographics + + + | Address | [address] | | | [place] [address] | + + + | Home Phone [...] | Author | [facility] | | | and Khurramana | + + + | Organization | [facility] | | [...] Team Providers + +------+ + | Care Wrapper Cashier Name | Role | Phone | [...] 2017 | | GASTROENTEROLOGY | [address], [place] | ([facility]) | | | | [address] [place] | [address] [place], [place] | | | | | [address] [place], [place] | [address] | | | | | [address] | | | | | | [phone] | | | +--------+ + + + [...] | | | | | [place] [address] | | | | | | [phone] | | | | | | | | +--------+---------+ + + + | 06/30/ | Office | Cardiology | Smitha Griffin DO | | | 2020 | Visit | | [address] | | | | | | [place] | | | | | | [address] | | | | | | | | +--------+---------+ + + + documented as of this encounter Visit Diagnoses Not on filedocumented in this encounter"
--- OUTSIDE RECORDS SUMMARY | ~2019-05-02 | XMS | Encounter Summary ---
Demographics + + + | Address | [address] | | | [place] [address] | + + + | Home Phone [...] | Author | [facility] Neal | | | and Khurramana | + + + | Organization | [facility] | | | and [...] Providers + +------+ + | Care Referral Management Liaison Name | Role | Phone | [...] [place] | | | | | [address] | [place] [address] | | | | | [phone] | [phone] | | | | | | | [...] | | | | | [place] [address] | | | | | | [phone] | | | | | | | | +--------+---------+ + + + | 06/30/ | Office | Cardiology | Smitha Griffin DO | | | 2019 | Visit | | [address] | | | | | | [place] | | | | | | [address] | | | | | | | | +--------+---------+ + + + documented as of this encounter Visit Diagnoses Not on filedocumented in this encounter"
--- OUTSIDE RECORDS SUMMARY | ~2019-05-02 | XMS | Encounter Summary ---
Demographics + + + | Address | [address] | | | [place] [address] | + + + | Home Phone [...] | Author | [facility] | | | and Khurramana | + + + | Organization | [facility] Neal | | [...] Team Providers + +------+ + | Care Supervisory Investigative Specialist Name | Role | Phone | [...] | | | | | Spondylolist | [address] | [address] | | | | | hesis at | Phone: | Phone: | | | | | L4-L5 level | [phone] | [phone] | | | | | Bilateral | Fax: | Fax: | | | | | lumbar | [phone] | [phone] | | | | | radiculopath | [...] | n | al disc | PA-C [address] [place] | | | | | displacement | [address] | [place], [place] | | | | | , lumbar | Ave | [address] Phone: | | | | | region | [place], | [phone] | | | | | | [place] | Fax: | | | | | | [address] | [phone] | | | | | | Phone: | | | | | | | [phone] | | | | | | | Fax: | | | | | | | [phone] | | +--------+--------+ + + + + Encounter Details +--------+---------+ + + + | Date | Type | Department | Care Team | Description | +--------+---------+ + + + | 02/03/ | Office | [facility] | Ray, | 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 terminal makeup operator risk can lead to osteoporosis which is [...] [facility]) MISC Take by mouth. Lorraine-3 Fatty Acids (PRO NUTRIENTS OMEGA 3 PO) [...] has no apparent deficits with short or ad terminal makeup operator memory. She has appropriate fund of [...] had a NCS performed b y a outside plant technician in [place]. I would like to get those records. [...] | | | | | [place] [address] | | | | | | [phone] | | | | | | | | +--------+---------+ + + + | 06/30/ | Office | Cardiology | Smitha Griffin DO | | | 2019 | Visit | | [address] | | | | | | [place] | | | | | | [address] | | | | | | | [...]
--- OUTSIDE RECORDS SUMMARY | ~2019-05-02 | XMS | Encounter Summary ---
Demographics + + + | Address | [address] | | | [place] [address] | + + + | Home Phone [...] | Author | [facility] | | | and Khurramana | + + + | Organization | [facility] Neal [...] Team Providers + +------+ + | Care Worldwide Chief Creative Officer Name | Role | Phone | [...] 2017 | | GASTROENTEROLOGY | [address], [place] | ([facility]) | | | | [address] [place] | [address] [place], [place] | | | | | [address] [place], [place] | [address] | | | | | [address] | | | | | | [phone] | | | +--------+ + + + [...] | | | | | [place] [address] | | | | | | [phone] | | | | | | | | +--------+---------+ + + + | 06/30/ | Office | Cardiology | Smitha Griffin DO | | | 2020 | Visit | | [address] | | | | | | [place] | | | | | | [address] | | | | | | | | +--------+---------+ + + + documented as of this encounter Visit Diagnoses Not on filedocumented in this encounter"
--- OUTSIDE RECORDS SUMMARY | ~2019-05-02 | XMS | Encounter Summary ---
Demographics + + + | Address | [address] | | | [place] [address] | + + + | Home Phone [...] | Author | [facility] | | | and Khurramana | + + + | Organization | [facility] | [...] Team Providers + +------+ + | Care Nib Assembler Name | Role | Phone | [...] [place] | | | | | | [address] | | | | | | [phone] | | | +--------+ + + + [...] [place] | | | | | | [facility] [address] | | | | | | [phone] | | | | | | | | +--------+---------+ + + + | 06/30/ | Office | Cardiology | Smitha Griffin DO | | | 2019 | Visit | | [address] | | | | | | [place] | | | | | | [address] | | | | | | | | +--------+---------+ + + + documented as of this encounter Visit Diagnoses + + | Diagnosis | + + | Other screening mammogram | + + documented in this encounter"
--- OUTSIDE RECORDS SUMMARY | ~2019-05-02 | XMS | Encounter Summary ---
Demographics + + + | Address | [address] | | | [place] [address] | + + + | Home Phone [...] Author | [facility] | | | and Khurramana | + + + | Organization | [facility] Neal | [...] Team Providers + +------+ + | Care Keysmith Name | Role | Phone | + [...] | | | | [address] [facility] | | | | | | [address] [place] | | | | | | [address] | | | | | | [phone] | | | +--------+ + + + [...] | | | | | [place] [address] | | | | | | [phone] | | | | | | | | +--------+---------+ + + + | 06/30/ | Office | Cardiology | Smitha Griffin DO | | | 2019 | Visit | | [address] | | | | | | [place] | | | | | | [address] | | | | | | | | +--------+---------+ + + + documented as of this encounter Visit Diagnoses Not on filedocumented in this encounter"
--- OUTSIDE RECORDS SUMMARY | ~2019-05-02 | XMS | Encounter Summary ---
Demographics + + + | Address | [address] | | | [place] [address] | + + + | Home Phone | | + + + | Preferred Language | Unknown | + + + | Marital Status | | + + + | Amish Affiliation | Unknown | + + + | Race | White | + + + | Ethnic Group | Not or | + + + Author + + + | Author | [facility] | + + + | Organization | [facility] | + + + | Address | Unknown | + + + | Phone | Unavailable | + + + Support + + + + + | Name | Relationship | Address | Phone | + + + + + | Chrissie Leos | DIRK | [place] | | + + + + + Care Team Providers + +------+ + | Care Sewage Disposal Worker Name | Role | Phone | [...] Clinic Dermatology | | | | | [facility] | [address] [facility] | | | | | and Healing, | [place] | | | | | [facility] | [address] | | | | | Floor [place], [place] | | | | | | [address] | | | | | | [phone] | | | +--------+ + + + [...] | OLOGY | | | | Case: [id number] | | | | | | | [...] | [facility] | [address] | [place] [address] | | | DERMATOPATHOLOGY | [address] | | | + + + + + documented in this encounter Visit Diagnoses + + | Diagnosis | + + | Neoplasm of uncertain behavior of skin | + + documented in this encounter
--- OUTSIDE RECORDS SUMMARY | ~2019-05-02 | XMS | Encounter Summary ---
Demographics + + + | Address | [address] | | | [place] [address] | + + + | Home Phone [...] + | Author | [facility] | | | and Khurramana | + + + | Organization | [facility] | | [...] Providers + +------+ + | Care Tool Maintenance Technician Name | Role | Phone | [...] | | | | [address] [facility] | | | | | | [address] [place] | | | | | | [address] | | | | | | [phone] | | | +--------+ + + + [...] | | | [place] [address] | | | | | | [phone] | | | | | | | | +--------+---------+ + + + | 06/30/ | Office | Cardiology | Smitha Griffin DO | | | 2019 | Visit | | [address] | | | | | | [place] | | | | | | [address] | | | | | | | | +--------+---------+ + + + documented as of this encounter Visit Diagnoses Not on filedocumented in this encounter"
--- OUTSIDE RECORDS SUMMARY | ~2019-05-02 | XMS | Encounter Summary ---
Demographics + + + | Address | [address] | | | [place] [address] | + + + | Home Phone [...] | Author | [facility] Neal | | | and Khurramana | + + + | Organization | [facility] [...] Team Providers + +------+ + | Care Voucher Examiner Name | Role | Phone | [...] + | 09/26/ | Anesthesia | [facility] | Enrique Llanos | | | 2016 | Event | MED CTR MP INTRA OP | MD Mc [address] | | | | | [address] | [facility] | | | | | [place] | [place] [address] | | | | | [address] | [phone] | | | | | [phone] | | | +--------+ + + + [...] [address] | | eral | Antecubital; [id number] | Patsy Dixon RN | Patsy Dixon [...] | | | | | [place] [address] | | | | | | [phone] | | | | | | | | +--------+---------+ + + + | 06/30/ | Office | Cardiology | Smitha Griffin DO | | | 2019 | Visit | | [address] | | | | | | [place] | | | | | | [address] | | | | | | | [...]
--- OUTSIDE RECORDS SUMMARY | ~2019-05-02 | XMS | Clinical Summary ---
Demographics + + + | Address | [address] | | | [place] [address] | + + + | Home Phone [...] Team Providers + +------+ + | Care Agri Business Agent Name | Role | Phone | + +------+ + PCP | Unavailable | + +------+ + Source Comments FIORELLA is fully live on both [facility] Ambulatory and [facility] InPatient.[facility] Allergies Not on File Medications Not [...] | MODA | [phone] | Effect | [phone] | [address] | PPO | | | MEDICA | | nestor | 4 | [address] | | | | RE PPO | | for | | [place], | | | | | | all | | [place] [address] | | | | | | dates [...] | 1936 | [phone] | [place] [address] | | | aissatou | | | 3 (Home) | | + +--------+ +--------+ + +"
--- OUTSIDE RECORDS SUMMARY | ~2019-05-02 | XMS | Encounter Summary ---
Demographics + + + | Address | [address] | | | [place] [address] | + + + | Home Phone [...] [facility] Neal | | | and Khurramana | + + + | Organization | [facility] Neal | [...] Team Providers + +------+ + | Care English Horn Player Name | Role | Phone | [...] | | | | | (degenerativ | [address] | | | | | | e disc | Phone: | | | | | | disease), | [phone] | | | | | | lumbar | Fax: | | | | | | Bilateral | [phone] | | | | | | lumbar [...] [place], | | | | | [place] [address] | [place] [address] | | | | | [phone] | [phone] | | | | | | | [...] [place] | | | | | | [place] [address] | | | | | | [phone] | | | | | | | | +--------+---------+ + + + | 06/30/ | Office | Cardiology | Smitha Griffin DO | | | 2020 | Visit | | [address] | | | | | | [place] | | | | | | [address] | | | | | | | [...] +--------+ + + | AMB REFERRAL TO [facility] | Outpatient | Routin | [...]
--- OUTSIDE RECORDS SUMMARY | ~2019-05-02 | XMS | Encounter Summary ---
Demographics + + + | Address | [address] | | | [place] [address] | + + + | Home Phone [...] + | Author | [facility] | | | and Khurramana | + + + | Organization | [facility] | | | and [place] [...] Providers + +------+ + | Care Line Haul Owner Operator Name | Role | Phone | [...] | | Physical | Diagnoses | | [place], | | | | Medicine and | Disturbance | Ray, | MD Malcom | | | | Rehabilitatio | of skin | [place], | [address] | | | | n | sensation | PA-C [address] | [address] | | | | | Procedures | [address] | [place] | | | | | [place] MOT[place] | [place] | [address] Phone: | | | | | &/SENS 1-2 | [address] | [phone] | | | | | NRV CNDJ | Phone: | Fax: | | | | | PRECONF | [phone] | [phone] | | | | | ELTRODE LIMB | Fax: | | | | | | VA NEEDLE | [phone] | | | | | | EMG EA | | | | | | | EXTREMITY | | | | | | | W/PARASPINL | | | | | | | AREA LIMITED | | | | | | | VA EMG, | | | | | | | NEEDLE, TWO | | | | | | | LIMBS VA | | | | | | | MOTOR &/SENS | | | | | | | 3-4 NRV | | | | | | | CNDJ PRECONF | | | | | | | ELTRODE | | | | | | | LIMB VA | | | | | | | MOTOR &/SENS | | | | | | | 5-6 NRV | | | | | | | CNDJ PRECONF | | | | | | | ELTRODE | | | | | | | LIMB VA | | | | | | | NEEDLE EMG | | | | | | | EA EXTREMTY | | | | | | | W/PARASPINL | | | | | | | AREA | | | | | | | COMPLETE VA | | | | | | | [...] | polyneuropathy (HCC) | | | | [place], | [address] [place] [address] | (Primary Dx); Hyper | | | | [place] [address] | [id number] | reflexia | | | | [phone] | | | +--------+ + + + [...] | | | | | [place] [address] | | | | | | [phone] | | | | | | | | +--------+---------+ + + + | 06/30/ | Office | Cardiology | Smitha Griffin DO | | | 2019 | Visit | | [address] | | | | | | [place] | | | | | | [address] | | | | | | | [...] + | Malcom Mojica MD 02/26/2016 14:11 [facility] | | | Physician Group Musculoskeletal, Sports and Spine, Physiatry [place] | | | [facility] [address] [place] [address] Ph: | | | Test Date: 02/25/2016 | | | Patient Name: Scarlet Murguia : 1935 Physician: Tomás Mojica, | | | MR #: [id number] Sex: Female Referring Physician: [place] | | [...] | | | testing done by a rpg developer and she was diagnosed with a | [...] Malcom Mojica MD Diplomate, | | | [place] [employer] of Physical Medicine and Rehabilitation. | [...] [address] | [place] | [phone] | | [facility] | | [address] | | | - LABORATORY | | [...] | | | | | [place], [place] | | | | | | [address] | | | | + + + [...] | [address] | [place] [address] | [phone] | + + + + + Protein [...] ELP Gamma | 9.7 | % | PROVIDEPRE | | | Globulin % | | [...] MD02-27-16 | [facility] | |02-27-16 | [facility] | | | - LABORATORY | + + + + + + + + | Performing | Address | City/State/Zipcode | Phone Number | | Organization | | | | + + + + + | [address] | [address] | [place] | [phone] | | [facility] | | [address] | | | - LABORATORY | | [...] [place] | | | | | | [address] | | | | + + + + + + + + | Specimen | + + | Blood specimen | | (specimen) | + + + + + + + | Performing | Address | City/State/Zipcode | Phone Number | | Organization | | | | + + + + + | [facility] | [address] | [place] [address] | [phone] | + + + + + Methylmalonic [...] [place] | | | | | | [address] | | | | + + + + + + + + | Specimen | + + | Blood specimen | | (specimen) | + + + + + + + | Performing | Address | City/State/Zipcode | Phone Number | | Organization | | | | + + + + + | [facility] | [address] | [place] [address] | [phone] | + + + + + Vitamin [...] [address] | [place] | [phone] | | [facility] | | [address] | | | - LABORATORY | | | | + + + + + documented in this encounter Visit Diagnoses + + | Diagnosis | + + | Peripheral polyneuropathy - Primary Unspecified hereditary and idiopathic peripheral | | neuropathy | + + | Hyper reflexia Abnormal reflex | + + documented in this encounter
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
[2019-05-02] MEDS ORDERED: CYCLOBENZAPRINE10 MG PO (14:03)
[2019-05-02] MEDS ORDERED: CEFUROXIME250 MG PO (14:03)
--- NOTE | 2019-05-02 19:28 | EKG ---
[facility] [address] [place], [place] [address] Signed Sinus bradycardia Otherwise normal ECG When compared with ECG of 19-SEP-2017 11:27, No significant change was found Confirmed by JENNIE VERNON DO ([id number]) on 05/02/2019 7:28:41 PM Electronically Signed By: JENNIE VERNON DO 05/02/19 1928 PATIENT NAME: LUCHO GRANT Electrocardiogram DATE OF : 31 PHYSICIAN: JENNIE VERNON DO REPORT #: [id number] REPORT IS CONFIDENTIAL AND NOT TO BE RELEASED WITHOUT AUTHORIZATION
== END 2019-05-02 15:16 | disposition home or self-care (01) ==
LOC: ED 10:20
DX: S16.1XXA Strain of muscle, fascia and tendon at neck level, initial encounter (principal); N39.0 Urinary tract infection, site not specified; W18.30XA Fall on same level, unspecified, initial encounter; I10 Essential (primary) hypertension; E11.40 Type 2 diabetes mellitus with diabetic neuropathy, unspecified; E03.9 Hypothyroidism, unspecified; Z88.0 Allergy status to penicillin; Z88.2 Allergy status to sulfonamides; Z88.1 Allergy status to other antibiotic agents; Z88.8 Allergy status to other drugs, medicaments and biological substances; Z79.899 Other long term (current) drug therapy
CPT/HCPCS: 70450; 72125; 73502; 80053; 81001; 82550; 84484; 85025; 87077; 87088; 87186; 93005; 93010; 96365; 96375; 99284-25; J0696; J1885

== ENCOUNTER 2019-05-05 13:21 | Emergency (ER) | payer MEDICARE, MEDICAID ==
[~2019-05-05] VITALS: Ht 167.6 cm; Wt 72.6 kg
--- OUTSIDE RECORDS SUMMARY | ~2019-05-05 | XMS | Encounter Summary ---
Demographics + + + | Address | [address] | | | [place] [address] | + + + | Home Phone | | + + + | Preferred Language | Unknown | + + + | Marital Status | | + + + | Mormonism Affiliation | 1077 | + + + | Race | Unknown | + + + | Ethnic Group | Unknown | + + + Author + + + | Author | [facility] | | | and [place] | + + + | Organization | [facility] | | | and [place] [...] Team Providers + +------+ + | Care Affiliate Manager Name | Role | Phone | + +------+ + PCP | Unavailable | + +------+ + Encounter Details +--------+ + + + + | Date | Type | Department | Care Team | Description | +--------+ + + + + | 10/09/ | Hospital | [facility] | | Other Screening | | 2006 | Encounter | [address] | | Mammogram | | | | [address] | | | | | | [place] | | | | | | [address] | | | | | | [phone] | | | +--------+ + + + [...] 2019 | Visit | | MD Alaina [address] | | | | | | [place] | | | | | | [place] [address] | | | | | | [phone] | | | | | | | | +--------+---------+ + + + | 06/30/ | Office | Cardiology | Smitha Griffin DO | | | 2019 | Visit | | [address] | | | | | | [place] | | | | | | [address] | | | | | | | | +--------+---------+ + + + documented as of this encounter Visit Diagnoses + + | Diagnosis | + + | Other screening mammogram | + + documented in this encounter"
--- OUTSIDE RECORDS SUMMARY | ~2019-05-05 | XMS | Encounter Summary ---
Demographics + + + | Address | [address] | | | [place] [address] | + + + | Home Phone | | + + + | Preferred Language | Unknown | + + + | Marital Status | | + + + | Congregation Affiliation | 1077 | + + + | Race | Unknown | + + + | Ethnic Group | Unknown | + + + Author + + + | Author | [facility] | | | and [place] | + + + | Organization | [facility] | | | and [place] [...] Team Providers + +------+ + | Care Salesperson Florist Supplies Name | Role | Phone | + +------+ + | Susan Leos | PCP | | | PA-Prisca | | | + +------+ + Reason for Visit + + + | Reason | Comments | + + + | Post-op Question | | + + + Encounter Details +--------+ + + + + | Date | Type | Department | Care Team | Description | +--------+ + + + + | 04/05/ | Telephone | [facility] | [place] | Post-op Question | | 2018 | | [place] [address] | MD Alaina [address] | | | | | [address] [place], [place] | [address] | | | | | [address] | [place] [address] | | | | | [phone] | [phone] | | | | | | | [...] [place] | | | | | | [place] [address] | | | | | | [phone] | | | | | | | | +--------+---------+ + + + | 06/30/ | Office | Cardiology | Smitha Griffin DO | | | 2020 | Visit | | [address] | | | | | | [place] | | | | | | [address] | | | | | | | | +--------+---------+ + + + documented as of this encounter Visit Diagnoses Not on filedocumented in this encounter"
--- OUTSIDE RECORDS SUMMARY | ~2019-05-05 | XMS | Encounter Summary ---
Demographics + + + | Address | [address] | | | [place] [address] | + + + | Home Phone | | + + + | Preferred Language | Unknown | + + + | Marital Status | | + + + | Rastafari Affiliation | 1077 | + + + | Race | Unknown | + + + | Ethnic Group | Unknown | + + + Author + + + | Author | [facility] | | | and [place] | + + + | Organization | [facility] | | | and [place] [...] Team Providers + +------+ + | Care Tonger Name | Role | Phone | + +------+ + | Susan Loes | PCP | | | PA-C | | | + +------+ + Encounter Details +--------+ + + + + | Date | Type | Department | Care Team | Description | +--------+ + + + + | 02/24/ | Hospital | [facility] | Malcom Mojica | Peripheral | | 2016 | Encounter | [facility] | MD Desi SMITH | polyneuropathy (HCC) | | | | [address] | [address] [place] | | | | | [place] | [address] | | | | | [address] | | | | | | [phone] | | | +--------+ + + + [...] at Time of Discharge + + + +---------+--------+ + | Medication | Sig | Dispensed | Refills | Start | End Date | | | | | | Date | | + + + +---------+--------+ + | atenolol | Take 25 mg by mouth | | 0 | | | | (TENORMIN) 25 mg | Daily. | | | | | | tablet | | | | | | + + + +---------+--------+ + | Calcium | Take 1 tablet by | | 0 | | | | Carb-Cholecalciferol | mouth 2 times daily. | | | | | | (CALCIUM 500 + D3 | | | | | | | PO) | | | | | | + + + +---------+--------+ + | docusate sodium | Take 100 mg by mouth | | 0 | | | | (COLACE) 100 mg | Twice daily as | | | | | | capsule | needed. | | | | | + + + +---------+--------+ + | gabapentin | Take 300 mg by mouth | | 0 | | | | (NEURONTIN) 300 mg | 3 times daily. | | | | | | capsule | | | | | | + + + +---------+--------+ + | Garlic 1000 MG | Take 1 tablet by | | 0 | | | | CAPS | mouth Daily. | | | | | + + + +---------+--------+ + | levothyroxine | Take 100 mcg by | | 0 | | | | (SYNTHROID, | mouth every morning | | | | | | LEVOTHROID) 100 mcg | (before breakfast). | | | | | | tablet | | | | | | + + + +---------+--------+ + | losartan (COZAAR) | Take 50 mg by mouth | | 0 | | | | 50 mg tablet | Daily. | | | | | + + + +---------+--------+ + | Multiple Vitamin | Take 1 tablet by | | 0 | | | | (THERAGRAN PO) | mouth Daily. | | | | | + + + +---------+--------+ + | Multiple | Take by mouth. | | 0 | | | | Vitamins-Minerals | | | | | | | ([facility] [employer]) | | | | | | | MISC | | | | | | + + + +---------+--------+ + | Alsea-3 Fatty | Take 1 tablet by | | 0 | | | | Acids (PRO NUTRIENTS | mouth Daily. | | | | | | OMEGA 3 PO) | | | | | | + + + +---------+--------+ + | omeprazole | Take 20 mg by mouth | | 0 | | | | (PRILOSEC) 20 mg | every morning | | | | | | capsule | (before breakfast). | | | | | + + + +---------+--------+ + | Psyllium | Take by mouth | | 0 | | | | (METAMUCIL PO) | Daily. | | | | | + + + +---------+--------+ + | | Take 1 tablet by | | 0 | | | | HYDROcodone-acetamin | mouth every 6 hours | | | | 9 | | ophen (NORCO) 5-325 | as needed for Pain. | | | | | | mg per tablet | | | | | | + + + +---------+--------+ + documented as of this encounter Plan [...] | | | | | [place] [address] | | | | | | [phone] | | | | | | | | +--------+---------+ + + + | 06/30/ | Office | Cardiology | Smitha Griffin DO | | | 2019 | Visit | | [address] | | | | | | [place] | | | | | | [address] | | | | | | | | +--------+---------+ + + + documented as of this encounter Procedures + +--------+ + + + | Procedure Name | Priori | Date/Time | Associated Diagnosis | Comments | | | ty | | | | + +--------+ + + + | VITAMIN B-12 | Routin | 02/25/2016 | Peripheral | Results for this | | | e | 3:39 PM | polyneuropathy (HCC) | procedure are in the | | | | PDT | | results section. | + +--------+ + + + | HEPATITIS A, B, C | Routin | 02/25/2016 | Peripheral | Results for this | | PANEL, REFLEX | e | 3:39 PM | polyneuropathy (HCC) | procedure are in the | | | | PDT | | results section. | + +--------+ + + + | METHYLMALONIC ACID, | Routin | 02/25/2016 | Peripheral | Results for this | | QUANT | e | 3:39 PM | polyneuropathy (HCC) | procedure are in the | | | | PDT | | results section. | + +--------+ + + + | COPPER, SERUM | Routin | 02/25/2016 | Peripheral | Results for this | | | e | 3:39 PM | polyneuropathy (HCC) | procedure are in the | | | | PDT | | results section. | + +--------+ + + + | TSH | Routin | 02/25/2016 | Peripheral | Results for this | | | e | 3:39 PM | polyneuropathy (HCC) | procedure are in the | | | | PDT | | results section. | + +--------+ + + + | PROTEIN | Routin | 02/25/2016 | Peripheral | Results for this | | ELECTROPHORESIS, | e | 3:39 PM | polyneuropathy (HCC) | procedure are in the | | SERUM | | PDT | | results section. | + +--------+ + + + documented in this encounter Results TSH (02/25/2016 3:39 PM PDT) + + + + + + | Component | Value | Ref Range | Performed | Pathologist | | | | | At | Signature | + + + + + + | TSH | 0.98Comment: All TSH | 0.34 - 5.60 | [facility] | | | | samples are screened | uIU/mL | [facility] | | | | using a 2nd Generation | | MEDICAL | | | | test, and are reflexed | | CENTER - | | | | to a 3rd Generation test | | LABORATORY | | | | if indicated. | | | | + + + + + + + + | Specimen | + + | Blood | + + + + + + + | Performing | Address | City/State/Zipcode | Phone Number | | Organization | | | | + + + + + | [facility] | [address] | [place], [place] | [phone] | | [facility] | | [address] | | | - LABORATORY | | | | + + + + + Hepatitis A, B, C Barrington Slade (02/25/2016 3:39 PM PDT) + + + + + + | Component | Value | Ref Range | Performed | Pathologist | | | | | At | Signature | + + + + + + | Hepatitis | See CommentsComment: No | | REFERENCE | | | Interpretat | serologic evidence of | | LAB [facility] | | | ion: | current Hepatitis A or B | | | | | | virus infection.Absence | | | | | | of antibody suggests no | | | | | | past Hepatitis C | | | | | | infection. Sinceantibody | | | | | | development may be | | | | | | delayed up to 6 months | | | | | | after | | | | | | infection,retesting may | | | | | | be indicated.Testing | | | | | | Performed: [facility], [address] | | | | | | [address], [place] | | | | | | [address] | | | | + + + + + + | Hepatitis A | Non Reactive | NR | REFERENCE | | | Ab Total | | | [facility] | | + + + + + + | Hepatitis B | Non Reactive | NR | REFERENCE | | | Surface Ag | | | [facility] | | + + + + + + | Hepatitis B | Non Reactive | NR | REFERENCE | | | Core Ab | | | [facility] | | | Total | | | | | + + + + + + | Hepatitis C | See CommentsComment: Non | NR | REFERENCE | | | Ab | ReactiveHepatitis C: | | [facility] | | | | Absence of antibody | | | | | | suggests no past | | | | | | Hepatitis C | | | | | | virusinfection. Since | | | | | | antibody development may | | | | | | be delayed up to 6 | | | | | | monthsafter infection, | | | | | | retesting may be | | | | | | indicated. | | | | + + + + + + + + | Specimen | + + | Blood specimen | | (specimen) | + + + + + + + | Performing | Address | City/State/Zipcode | Phone Number | | Organization | | | | + + + + + | [facility] | [address] | [place] [address] | [phone] | + + + + + Protein Electrophoresis, Serum (02/25/2016 3:39 PM PDT) + +-------+ + + + | Component | Value | Ref Range | Performed | Pathologist | | | | | At | Signature | + +-------+ + + + | Total | 6.4 | 6.0 - 7.8 g/dL | [facility] | | | Protein | | | [facility] | | | | | | MEDICAL | | | | | | CENTER - | | | | | | LABORATORY | | + +-------+ + + + | ELP Albumin | 4.2 | 3.6 - 5.7 g/dL | [facility] | | | | | | [facility] | | | | | | MEDICAL | | | | | | CENTER - | | | | | | LABORATORY | | + +-------+ + + + | ELP Alpha 1 | 0.1 | 0.1 - 0.2 g/dL | [facility] | | | Globulin | | | [facility] | | | | | | MEDICAL | | | | | | CENTER - | | | | | | LABORATORY | | + +-------+ + + + | ELP Alpha 2 | 0.7 | 0.4 - 0.9 g/dL | [facility] | | | Globulin | | | [facility] | | | | | | MEDICAL | | | | | | CENTER - | | | | | | LABORATORY | | + +-------+ + + + | ELP Beta 1 | 0.5 | 0.3 - 0.7 g/dL | [facility] | | | Globulin | | | [facility] | | | | | | MEDICAL | | | | | | CENTER - | | | | | | LABORATORY | | + +-------+ + + + | ELP Beta 2 | 0.3 | 0.1 - 0.4 g/dL | [facility] | | | Globulin | | | [facility] | | | | | | MEDICAL | | | | | | CENTER - | | | | | | LABORATORY | | + +-------+ + + + | ELP Gamma | 0.6 | 0.4 - 1.2 g/dL | [facility] | | | Globulin | | | [facility] | | | | | | MEDICAL | | | | | | CENTER - | | | | | | LABORATORY | | + +-------+ + + + | ELP Albumin | 64.9 | % | [facility] | | | % | | | [facility] | | | | | | MEDICAL | | | | | | CENTER - | | | | | | LABORATORY | | + +-------+ + + + | Albumin/Zoraida | 1.9 | | [facility] | | | bulin Ratio | | | [facility] | | | | | | MEDICAL | | | | | | CENTER - | | | | | | LABORATORY | | + +-------+ + + + | ELP Alpha 1 | 2.1 | % | [facility] | | | Globulin % | | | [facility] | | | | | | MEDICAL | | | | | | CENTER - | | | | | | LABORATORY | | + +-------+ + + + | ELP Alpha 2 | 10.3 | % | [facility] | | | Globulin % | | | [facility] | | | | | | MEDICAL | | | | | | CENTER - | | | | | | LABORATORY | | + +-------+ + + + | ELP Beta 1 | 8.5 | % | [facility] | | | Globulin % | | | [facility] | | | | | | MEDICAL | | | | | | CENTER - | | | | | | LABORATORY | | + +-------+ + + + | ELP Beta 2 | 4.5 | % | [facility] | | | Globulin % | | | [facility] | | | | | | MEDICAL | | | | | | CENTER - | | | | | | LABORATORY | | + +-------+ + + + | ELP Gamma | 9.7 | % | [facility] | | | Globulin % | | | [facility] | | | | | | MEDICAL | | | | | | CENTER - | | | | | | LABORATORY | | + +-------+ + + + + + | Specimen | + + | Blood | + + + + + | Narrative | Performed At | + + + | Normal | [facility] | | Vincent Sanchez MD02-27-16 | [facility] | |02-27-16 | [facility] | | | - LABORATORY | + + + + + + + + | Performing | Address | City/State/Zipcode | Phone Number | | Organization | | | | + + + + + | [facility] | [address] | [place] | [phone] | | [facility] | | [address] | | | - LABORATORY | | | | + + + + + Copper, Serum (02/25/2016 3:39 PM PDT) + + + + + + | Component | Value | Ref Range | Performed | Pathologist | | | | | At | Signature | + + + + + + | COPPER | 101Comment: Serum copper | 80 - 155 ug/dL | [facility] | | | | may be elevated with | | [facility] | | | | infection, inflammation, | | | | | | stress, andcopper | | | | | | supplementation. In | | | | | | females, elevated copper | | | | | | may also be causedby | | | | | | oral contraceptives and | | | | | | | | | | | | (concentrations may be | | | | | | elevatedup to 3 times | | | | | | normal during the third | | | | | | trimester).Serum copper | | | | | | may be reduced by use of | | | | | | corticosteroids and | | | | | | zinc and bymalnutrition | | | | | | or maladsoprtion.This | | | | | | test was developed and | | | | | | its performance | | | | | | characteristics | | | | | | determinedby [facility]. The | | | | | | U.S. Food and Drug | | | | | | Administration (FDA) has | | | | | | not approvedor cleared | | | | | | this test. However, FDA | | | | | | approval or clearance is | | | | | | currentlynot required | | | | | | for clinical use of this | | | | | | test.The results are | | | | | | not intended to be used | | | | | | as the sole means for | | | | | | clinicaldiagnosis or | | | | | | patient management | | | | | | decisions. [facility] is | | | | | | authorized underClinical | | | | | | Laboratory Improvement | | | | | | Amendments (CLIA) to | | | | | | performhigh-complexity | | | | | | testing.Use of | | | | | | noncertified trace | | | | | | element-free collection | | | | | | and/or transporttubes | | | | | | may result in elevated | | | | | | results due to | | | | | | contamination.Testing | | | | | | Performed: [facility], [address] | | | | | [place] | | | | | | [address] | | | | + + + + + + + + | Specimen | + + | Blood specimen | | (specimen) | + + + + + + + | Performing | Address | City/State/Zipcode | Phone Number | | Organization | | | | + + + + + | [facility] | [address] | [place] [address] | [phone] | + + + + + Methylmalonic Acid, Quant (02/25/2016 3:39 PM PDT) + + + + + + | Component | Value | Ref Range | Performed | Pathologist | | | | | At | Signature | + + + + + + | Methylmalon | 0.25Comment: Testing | 0.00 - 0.40 | [facility] | | | ic Acid, S | Performed: [facility], [address] | umol/L | [facility] | | | | [address], [place] | | | | | | [address] | | | | + + + + + + + + | Specimen | + + | Blood specimen | | (specimen) | + + + + + + + | Performing | Address | City/State/Zipcode | Phone Number | | Organization | | | | + + + + + | [facility] | [address] | [place] [address] | [phone] | + + + + + Vitamin B-12 (02/25/2016 3:39 PM PDT) + + + + + + | Component | Value | Ref Range | Performed | Pathologist | | | | | At | Signature | + + + + + + | VITAMIN | 283Comment: DEFICIENT: | 180 - 914 pg/mL | [facility] | | | B-12 | <145 | | [facility] | | | | pg/mLINDETERMINATE: | | MEDICAL | | | | 145-180 pg/mL | | CENTER - | | | | | | LABORATORY | | + + + + + + + + | Specimen | + + | Blood | + + + + + + + | Performing | Address | City/State/Zipcode | Phone Number | | Organization | | | | + + + + + | [facility] 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
--- OUTSIDE RECORDS SUMMARY | ~2019-05-05 | XMS | Clinical Summary ---
Demographics + + + | Address | [address] | | | [place] [address] | + + + | Home Phone | | + + + | Preferred Language | Unknown | + + + | Marital Status | | + + + | Zoroastrianism Affiliation | Unknown | + + + | Race | Unknown | + + + | Ethnic Group | Unknown | + + + Author + + + | Author | [facility] [employer] (Historical as of | | | 01-29-19) | + + + | Organization | [facility] [employer] (Historical as of | | | 01-29-19) | + + + | Address | Unknown | + + + | Phone | Unavailable | + + + Support + + + + + | Name | Relationship | Address | Phone | + + + + + | Alejo Murguia | D[facility] | [address] | | | | | [place] [address] | | + + + + + Care Team Providers + +------+ + | Care Roll Tension Tester Name | Role | Phone | + [...]
--- OUTSIDE RECORDS SUMMARY | ~2019-05-05 | XMS | Encounter Summary ---
Demographics + + + | Address | [address] | | | [place] [address] | + + + | Home Phone | | + + + | Preferred Language | Unknown | + + + | Marital Status | | + + + | Mormonism Affiliation | 1077 | + + + | Race | Unknown | + + + | Ethnic Group | Unknown | + + + Author + + + | Author | [facility] | | | and Khurramana | + + + | Organization | [facility] | | | and [place] [...] Team Providers + +------+ + | Care Medical Recruiter Name | Role | Phone | + +------+ + | Susan Leos | PCP | | | PA-C | | | + +------+ + Encounter Details +--------+ + + + + | Date | Type | Department | Care Team | Description | +--------+ + + + + | 10/02/ | Episode | [facility] [place] | Sonali Garcia | | | 2016 | Changes | GASTROENTEROLOGY | ROBI Foley | | | | | [address] [facility] | | | | | | [address] | | | | | | [address] | | | | | | [phone] | | | +--------+ + + + [...] [place] | | | | | | [place] [address] | | | | | | [phone] | | | | | | | | +--------+---------+ + + + | 06/30/ | Office | Cardiology | Smitha Griffin DO | | | 2019 | Visit | | [address] | | | | | | [place] | | | | | | [address] | | | | | | | | +--------+---------+ + + + documented as of this encounter Visit Diagnoses Not on filedocumented in this encounter"
--- OUTSIDE RECORDS SUMMARY | ~2019-05-05 | XMS | Encounter Summary ---
Demographics + + + | Address | [address] | | | [place] [address] | + + + | Home Phone [...] | Author | [facility] | | | and Khurramana | + + + | Organization | [facility] | | | and [...] Team Providers + +------+ + | Care Refrigeration Brazer/Solderer Name | Role | Phone | + +------+ + | Susan Leos | PCP | | | KYA | | | + +------+ + Encounter Details +--------+ + + + + | Date | Type | Department | Care Team | Description | +--------+ + + + + | 01/31/ | Abstract | [facility] [place] | Ray, | | | 2015 | | PHYSIATRY [address] | KYA [address] | | | | | [place], | [place], | | | | | [place] [address] | [place] [address] | | | | | [phone] | [phone] | | | | | | | [...] [place] | | | | | | [place] [address] | | | | | | [phone] | | | | | | | | +--------+---------+ + + + | 06/30/ | Office | Cardiology | Smitha Griffin DO | | | 2019 | Visit | | [address] | | | | | | [place] | | | | | | [address] | | | | | | | | +--------+---------+ + + + documented as of this encounter Visit Diagnoses Not on filedocumented in this encounter"
--- OUTSIDE RECORDS SUMMARY | ~2019-05-05 | XMS | Encounter Summary ---
Demographics + + + | Address | [address] | | | [place] [address] | + + + | Home Phone | | + + + | Preferred Language | Unknown | + + + | Marital Status | | + + + | Christian Affiliation | 1077 | + + + | Race | Unknown | + + + | Ethnic Group | Unknown | + + + Author + + + | Author | [facility] | | | and Khurramana | + + + | Organization | [facility] | | | and [place] | [...] Providers + +------+ + | Care Medical Office Scheduler Name | Role | Phone | + [...] | | | e disc | PA-C [address] | [address] | | | | | disease), | [address] | [address] | | | | | lumbar | [place] | [place] | | | | | Spondylolist | [address] | [address] | | | | | hesis at | Phone: | Phone: | | | | | L4-L5 level | [phone] | [phone] | | | | | Bilateral | Fax: | Fax: | | | | | lumbar | [phone] | [phone] | | | | | radiculopath | | | | | | | y Neck pain | | | | | | | Procedures | | | | | | | Faxed 16 | | | +--------+ + + + + + Encounter Details +--------+ + + + + | Date | Type | Department | Care Team | Description | +--------+ + + + + | 06/04/ | Orders Only | [facility] [place] | Ray, | ANDREW (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 [place] [place] | | | | | | [address] | | | | | | | | +--------+---------+ + + + + + +--------+ + + | Name | Type | Priori | Associated Diagnoses | Order Schedule | | | | ty | | | + + +--------+ + + | AMB REFERRAL TO [facility] | Outpatient | Routin | DDD [...]
--- OUTSIDE RECORDS SUMMARY | ~2019-05-05 | XMS | Encounter Summary ---
Demographics + + + | Address | [address] | | | [place] [address] | + + + | Home Phone | | + + + | Preferred Language | Unknown | + + + | Marital Status | | + + + | Rastafarian Affiliation | 1077 | + + + | Race | Unknown | + + + | Ethnic Group | Unknown | + + + Author + + + | Author | [facility] | | | and Khurramana | + + + | Organization | [facility] | | | and [place] [...] Team Providers + +------+ + | Care Consulting Intern Name | Role | Phone | [...] | | | | | Spondylolist | [address] | [address] | | | | | hesis at | Phone: | Phone: | | | | | L4-L5 level | [phone] | [phone] | | | | | Bilateral | Fax: | Fax: | | | | | lumbar | [phone] | [phone] | | | | | radiculopath | [...] | disc disease), | | | | [place], | [address] [place], | lumbar (Primary Dx); | | | | [place] [address] | [place] [address] | Spondylolisthesis | | | | [phone] | [phone] | at L4-L5 level; | | | [...] [place] | | | | | | [place] [address] | | | | | | [phone] | | | | | | | | +--------+---------+ + + + | 06/30/ | Office | Cardiology | Smitha Grififn DO | | | 2020 | Visit | | [address] | | | | | | [facility] [place] | | | | | | [address] | | | | | | | | +--------+---------+ + + + + + +--------+ + + | Name | Type | Priori | Associated Diagnoses | Order Schedule | | | | ty | | | + + +--------+ + + | AMB REFERRAL TO [facility] | Outpatient | Routin | DDD (degenerative [...]
--- OUTSIDE RECORDS SUMMARY | ~2019-05-05 | XMS | Encounter Summary ---
Demographics + + + | Address | [address] | | | [place] [address] | + + + | Home Phone [...] + + | Author | [facility] | | | and Khurramana | + + + | Organization | [facility] | | | and [place] [...] Team Providers + +------+ + | Care Drill Grinder Name | Role | Phone | + +------+ + | Susan Leos | PCP | | | PA-C | | | + +------+ + Reason for Visit + + + | Reason | Comments | + + + | Neck Pain | | + + + | Back Pain | | + + + Encounter Details +--------+---------+ + + + | Date | Type | Department | Care Team | Description | +--------+---------+ + + + | 04/07/ | Office | [facility] | Malcom Mojica, | [place] | | 2016 | Visit | PHYSIATRY [address] | [address] | (Primary Dx) | | | | [place], | [address] [place] | | | | | [place] [address] | [address] | | | | | [phone] | | | +--------+---------+ + + + [...] + + + | Blood Pressure | 140/74 | 04/07/2016 3:33 PM | | | | | PDT | | + + + + + | Pulse | 61 | 04/07/2016 3:33 PM | | | | | PDT [...] + + + + | Weight | 76.7 kg (169 lb) | 04/07/2016 3:33 PM | | | | | PDT | | + + + + + | Height | 170.2 cm (5' 7") | 04/07/2016 3:33 PM | | | | | PDT | | + + + + + | Body Mass Index | 26.47 | 04/07/2016 3:33 PM | | | | | PDT | | + + + + + documented in this encounter Progress Notes Malcom Mojica MD - 04/07/2016 3:37 PM PDT Rehabilitation Medicine Consult Note Malcom Mojica MD [address] [facility], [address] [place] [address] FAX: CHIEF COMPLAINT: Chief Complaint Patient presents with Neck Pain Back Pain HISTORY OF PRESENT ILLNESS: Mr. Murguia is a 80 year-old woman with a history of diet control led DM who returns today to discuss her recent MRI C-spine which was ordered when I found th at she was hyper-reflexic when I examined her last month for an EMG Patient reports no changes since I saw her last. She denies any difficulty with balance. She endorses a 3 year history of bladder incontinence, described as stress incontinence. De nies any weakness. She continues to have numbness in her bilateral lower extremities. PAST MEDICAL HISTORY: Past Medical History Diagnosis [...] 1 tablet by mouth Daily. Multiple Vitamins-Minerals ([facility]) MISC Take by mouth. Thrall-3 Fatty Acids (PRO NUTRIENTS OMEGA 3 PO) [...] Maternal Uncle Diabetes Brother REVIEW OF SYSTEMS: See HPI, otherwise full ROS was negative PHYSICAL EXAMINATION: Blood pressure 140/74, pulse 61, height 1.702 m (5' 7"), weight 76.658 kg (169 lb). Body ma ss index is 26.46 kg/(m^2). Gen: Scarlet Murguia is in no acute distress with unlabored respirations. HEENT: Head/face, normocephalic and atraumatic there are no areas of recent trauma. Eyes n ormal sclerae without icterus. Ears no drainage or tenderness. Ears clear without drainage . Nasopharynx clear without erythema. Oropharynx clear without erythema Neck: Supple and without palpable masses. Neuro: Mental status: The patient is alert, attentive, and oriented. Cranial nerves: CN II: Visual rivas are full to confrontation. Fundoscopic exam is normal with sharp discs and no vascular changes. Venous pulsations are present bilaterally. Pupils are 4 mm and elham skly reactive to light. Visual acuity is 20/20 bilaterally. CN III, IV, : normal CN V: Facial sensation is intact to pinprick in all 3 divisions bilaterally. Corneal respon ses are intact. CN VII: Face is symmetric with normal eye closure and smile. CN VII: Hearing is normal to rubbing fingers CN IX, X: Palate elevates symmetrically. Phonation is normal. CN XI: Head turning and shoulder shrug are intact CN XII: Tongue is midline with normal movements and no atrophy. Motor: There is no pronator drift of out-stretched arms. Muscle bulk and tone are normal. Strength is full bilaterally. ShAb EF EE WE Finger abd HF HE KE KF DF PF Left 5 5 5 5 5 5 5 5 5 5 5 Right 5 5 5 5 5 5 5 5 5 5 5 Reflexes: Biceps BR Triceps Patella Achilles Right +3 3+ 3+ 3+ 2+ Left +3 3+ 3+ 3+ 2+ Frontal release - snout and palmomental are normal. Babinski: negative bilaterally Gaytan's negative bilaterally Sensory: Light touch/pinprick - reduced in length dependent pattern Proprioception - reduced at bilateral toes Vibration - moderately reduced at toes and ankles Coordination: There is no dysmetria on inhrfh-gx-begv and deag-bwvs-ytpv. There Romberg is mildly positiv e with eyes closed Gait/Stance: Normal base of support, normal stride length, normal malachi. RADIOGRAPHIC REVIEW: The patient's imaging was reviewed in detail with the patient today during the visit. 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 There is also NF narrowing on left C4/5, bilateral C5/6, and C6/7, most severe at l eft C4/5. Labs: reviewed personally by me today Copper, SPEP, B12, B6, TSH, MMA, and hapatitis panel are all normal. She also had a 2-hr g lucose challenge done locally which was also normal. 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 As far as her hyper-reflexia there was no explanation for her symptom s seen on the C-spine MRI which is reassuring. Also her labs to evaluate for a metabolic my elopathy were also normal. She does not have any focal deficits and CN reflex's are normal so an intracranial process seems less likely. So at this point no further work-up is needed . As for her polyneuropathy her labs were also all normal, making the cause at this point idi opathic. And I do not think that any further work-up would change management expert at this time. Her primary symptoms is also numbness which neuropathic pain medications are typically not very effective in treating so will not make any medication changes today. PLAN: -Follow-up with me PRN I spent 45 minutes face to face with the patient, with over 50% spent in counseling and/or coordination of care regarding the above plan and reviewing the images with the patient. ELECTRONICALLY SIGNED BY: Malcom Mojica MD, 04/07/2016 15:37 documented in thi s encounter Plan of Treatment +--------+---------+ + + + | Date | Type | Specialty | Care Team | Description | +--------+---------+ + + + | 05/16/ | Office | Orthopedic Surgery | [place] | | | 2018 | Visit | | MD Alaina [address] | | | | | | [place] | | | | | | [place] [address] | | | | | | [phone] | | | | | | | | +--------+---------+ + + + | 06/30/ | Office | Cardiology | Smihta Griffin DO | | | 2019 | Visit | | [address] | | | | | | [place] | | | | | | [id number] | | | | | | | | +--------+---------+ + + + documented as of this encounter Visit Diagnoses + + | Diagnosis | + + | Hyper reflexia - Primary Abnormal reflex | + + documented in this encounter
--- OUTSIDE RECORDS SUMMARY | ~2019-05-05 | XMS | Encounter Summary ---
Demographics + + + | Address | [address] | | | [place] [address] | + + + | Home Phone | | + + + | Preferred Language | Unknown | + + + | Marital Status | | + + + | Sabianism Affiliation | 1077 | + + + | Race | Unknown | + + + | Ethnic Group | Unknown | + + + Author + + + | Author | [facility] | | | and Khurramana | + + + | Organization | [facility] | [...] Team Providers + +------+ + | Care Equal Opportunity Specialist Name | Role | Phone | + +------+ + | Susan Leos | PCP | | | PADex | | | + +------+ + Reason for Visit + + + | Reason | Comments | + + + | Results, Imaging | MRCP | + + + Encounter Details +--------+ + + + + | Date | Type | Department | Care Team | Description | +--------+ + + + + | 11/04/ | Telephone | [facility] [place] | Gregor Mccord MD | Results, Imaging | | 2017 | | GASTROENTEROLOGY | [address], [place] | ([facility]) | | | | [address] [place] | [address] [place], [place] | | | | | [address] [place], [place] | [address] | | | | | [address] | | | | | | [phone] | | | +--------+ + + + [...] | | | | | [place] [address] | | | | | | [phone] | | | | | | | | +--------+---------+ + + + | 06/30/ | Office | Cardiology | Smitha Griffin DO | | | 2020 | Visit | | [address] | | | | | | [place] | | | | | | [address] | | | | | | | | +--------+---------+ + + + documented as of this encounter Visit Diagnoses Not on filedocumented in this encounter"
--- OUTSIDE RECORDS SUMMARY | ~2019-05-05 | XMS | Encounter Summary ---
Demographics + + + | Address | [address] | | | [place] [address] | + + + | Home Phone | | + + + | Preferred Language | Unknown | + + + | Marital Status | | + + + | Lutheran Affiliation | 1077 | + + + | Race | Unknown | + + + | Ethnic Group | Unknown | + + + Author + + + | Author | [facility] | | | and Khurramana | + + + | Organization | [facility] | | | and [place] [...] Team Providers + +------+ + | Care Transit Man Name | Role | Phone | + +------+ + | Susan Leos | PCP | | | PA-C | | | + +------+ + Reason for Visit + + + | Reason | Comments | + + + | Post-op Problem | MADELYN 03/29/19 | + + + Encounter Details +--------+ + + + + | Date | Type | Department | Care Team | Description | +--------+ + + + + | 05/05/ | Telephone | [facility] | [place] | Post-op Problem (MADELYN | | 2018 | | [address] | MD Alaina [address] | 03/29/19) | | | | [address] [place], [place] | [address] [place] [address] | | | | | [address] | [place] [address] | | | | | [phone] | [phone] | | | | | | | [...] | | | | | [place] [address] | | | | | | [phone] | | | | | | | | +--------+---------+ + + + | 06/30/ | Office | Cardiology | Smitha Griffin DO | | | 2020 | Visit | | [address] | | | | | | [place] | | | | | | [id number] | | | | | | | | +--------+---------+ + + + documented as of this encounter Visit Diagnoses Not on filedocumented in this encounter"
--- OUTSIDE RECORDS SUMMARY | ~2019-05-05 | XMS | Encounter Summary ---
Demographics + + + | Address | [address] | | | [place] [address] | + + + | Home Phone | | + + + | Preferred Language | Unknown | + + + | Marital Status | | + + + | Adventist Affiliation | 1077 | + + + | Race | Unknown | + + + | Ethnic Group | Unknown | + + + Author + + + | Author | [facility] | | | and Khurramana | + + + | Organization | [facility] | | | and [place] [...] Team Providers + +------+ + | Care Bad Work Gatherer Name | Role | Phone | + +------+ + | Susan Leos | PCP | | | PA-C | | | + +------+ + Encounter Details +--------+ + + + + | Date | Type | Department | Care Team | Description | +--------+ + + + + | 03/14/ | [facility] | [facility] | [place] | Left hip pain | | 2018 | Encounter | [address] | [address] | | | | | [address] | [place] | | | | | [place] | [place] [address] | | | | | [address] | [phone] | | | | | [phone] | | | +--------+ + + + [...] | | | | | | | ([facility]) | | | | | | | MISC | | | | | | + + + +---------+ + + | [place]-3 Fatty | Take 1 tablet by | [...] | | | | | [place] [address] | | | | | | [phone] | | | | | | | | +--------+---------+ + + + | 06/30/ | Office | Cardiology | Smitha Griffin DO | | | 2019 | Visit | | [address] | | | | | | [place] | | | | | | [address] | | | | | | | [...]
--- OUTSIDE RECORDS SUMMARY | ~2019-05-05 | XMS | Encounter Summary ---
Demographics + + + | Address | [address] | | | [place] [address] | + + + | Home Phone | | + + + | Preferred Language | Unknown | + + + | Marital Status | | + + + | Scientologist Affiliation | 1077 | + + + | Race | Unknown | + + + | Ethnic Group | Unknown | + + + Author + + + | Author | [facility] | | | and Khurramana | + + + | Organization | [facility] | | [...] Team Providers + +------+ + | Care Epic Willow Specialist Name | Role | Phone | [...] + + | 03/29/ | Hospital | [facility] | Mark Montana | Left hip pain; | | 2019 - | Encounter | [facility] | MD [address] | 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[place], [place]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[place] [address]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 | | 2019 | | [address] | [phone] | | | | | [phone] | | | +--------+ + + + [...] Procedure: ERCP; Surgeon: Gregor Mccord MD; Location: [facility] MEDICAL PROCEDURE UNIT ERCP N/A 10/14/2016 Procedure: ERCP w/ stent pull; Surgeon: Gregor Mccord MD; Location: [facility] MEDICAL PROCEDU RE UNIT HARDWARE REMOVAL Left 03/29/2019 Procedure: REMOVE HARDWARE LOWER EXTREMITY-HIP; Surgeon: Mark [place] MD; Location : [facility] [place]IN [place] PARTIAL HYSTERECTOMY 1971 RECTOCELE REPAIR 1991 TAILBONE 1973 broken, partial removal TONSILLECTOMY 1938 TOTAL HIP ARTHROPLASTY Left 03/29/2019 Procedure: Posterior Total Hip Arthroplasty; Surgeon: Mark Montana MD; Location: [facility] MAIN OR Allergies Allergen Reactions [...] Code Follow up: Gus Orozco PA-C [address] [facility] [address] In 2 weeks Discharge Medications Changed Medications [...] | | | | | | | ([facility]) | | | | | | | MISC | | | | | | + + + +---------+ + + | [place]-3 Fatty | Take 1 tablet by | [...] might be different fr om the original. [facility] Progress Note Primary Care Physician: Susan [...] | | | | | [place] [address] | | | | | | [phone] | | | | | | | | +--------+---------+ + + + | 06/30/ | Office | Cardiology | Smitha Griffin DO | | | 2019 | Visit | | [address] | | | | | | [place] | | | | | | [address] | | | | | | | [...] | | | POC | performed at [facility];[address] | | LABORATORY | | | | [address];[place], [place] | | | | | | [address] | | | | + + + + + + + + | Specimen | + + | | + + + + + + + | Performing | Address | City/State/Zipcode | Phone Number | | Organization | | | | + + + + + | [facility] | [address] | [place] [address] | [phone] | + + + + + POC [...] | | | POC | performed at [facility];[address] | | LABORATORY | | | | [address];[place] | | | | | | [address] | | | | + + + + + + + + | Specimen | + + | | + + + + + + + | Performing | Address | City/State/Zipcode | Phone Number | | Organization | | | | + + + + + | [facility] | [address] | [place] [address] | [phone] | + + + + + POC Glucose (03/30/2019 8:57 PM PDT) + + + + + + | Component | Value | Ref Range | Performed | Pathologist | | | | | At | Signature | + + + + + + | Glucose, | 98Comment: Testing | 65 - 99 mg/dL | [facility] | | | POC | performed at [facility];888 | | LABORATORY | | | | [address];[place] | | | | | | [address] | | | | + + + + + + + + | Specimen | + + | | + + + + + + + | Performing | Address | City/State/Zipcode | Phone Number | | Organization | | | | + + + + + | [facility] | [address] | [place] [address] | [phone] | + + + + + Hemoglobin [...] [facility] | | | | performed at [facility];[address] | | LABORATORY | | | | [address];[place], [place] | | | | | | [address] | | | | + + + + + + + + | Specimen | + + | Blood | + + + + + + + | Performing | Address | City/State/Zipcode | Phone Number | | Organization | | | | + + + + + | [facility] | [address] | [place] [address] | [phone] | + + + + + POC [...] | | | POC | performed at [facility];[address] | | LABORATORY | | | | [address];[place] | | | | | | [address] | | | | + + + + + + + + | Specimen | + + | | + + + + + + + | Performing | Address | City/State/Zipcode | Phone Number | | Organization | | | | + + + + + | [facility] | [address] | [place] [address] | [phone] | + + + + + POC [...] | | | POC | performed at [facility];[address] | | LABORATORY | | | | [address];[place], [place] | | | | | | [address] | | | | + + + + + + + + | Specimen | + + | | + + + + + + + | Performing | Address | City/State/Zipcode | Phone Number | | Organization | | | | + + + + + | [facility] | [address] | [place] [address] | [phone] | + + + + + XR [...] | | | POC | performed at [facility];[address] | | LABORATORY | | | | [address];[place], [place] | | | | | | [address] | | | | + + + + + + + + | Specimen | + + | | + + + + + + + | Performing | Address | City/State/Zipcode | Phone Number | | Organization | | | | + + + + + | [facility] | [address] | [place] [address] | [phone] | + + + + + Type [...] + + + | BB BAND | [id number] | | [facility] | | | | | | LABORATORY | | + + + + + + | BB BAND | Testing performed at | | [facility] | | | | [facility];[address] | | LABORATORY | | | | [address];[place] [address] | | | | + + + + + + + + | Specimen | + + | Blood | + + + + + + + | Performing | Address | City/State/Zipcode | Phone Number | | Organization | | | | + + + + + | [facility] | [address] | [place] [address] | [phone] | + + + + + POC Glucose (03/29/2019 6:42 AM PDT) + + + + + + | Component | Value | Ref Range | Performed | Pathologist | | | | | At | Signature | + + + + + + | Glucose, | 96Comment: Testing | 65 - 99 mg/dL | [facility] | | | POC | performed at [facility];[address] | | LABORATORY | | | | [address];[place], [place] | | | | | | [address] | | | | + + + + + + + + | Specimen | + + | | + + + + + + + | Performing | Address | City/State/Zipcode | Phone Number | | Organization | | | | + + + + + | [facility] | [address] | [place] [address] | [phone] | + + + + + documented [...]
--- OUTSIDE RECORDS SUMMARY | ~2019-05-05 | XMS | Encounter Summary ---
Demographics + + + | Address | [address] | | | [place] [address] | + + + | Home Phone | | + + + | Preferred Language | Unknown | + + + | Marital Status | | + + + | Denominational Affiliation | 1077 | + + + | Race | Unknown | + + + | Ethnic Group | Unknown | + + + Author + + + | Author | [facility] | | | and Khurramana | + + + | Organization | [facility] | | | and [place] [...] Team Providers + +------+ + | Care Knotter Hand Name | Role | Phone | + +------+ + | Susan Leos | PCP | | | PADex | | | + +------+ + Reason for Visit + + + | Reason | Comments | + + + | Appointment | Scheduled ERCP | + + + Encounter Details +--------+ + + + + | Date | Type | Department | Care Team | Description | +--------+ + + + + | 09/23/ | Telephone | [facility] | Gregor Mccord MD | Appointment | | 2016 | | GASTROENTEROLOGY | [address], [place] | (Scheduled ERCP) | | | | [address] | [address] [place], [place] | | | | | [address] [place], [place] | [address] | | | | | [address] | | | | | | [phone] | | | +--------+ + + + [...] | | | | | [place] [address] | | | | | | [phone] | | | | | | | | +--------+---------+ + + + | 06/30/ | Office | Cardiology | Smitha Griffin DO | | | 2019 | Visit | | [address] | | | | | | [place] | | | | | | [address] | | | | | | | | +--------+---------+ + + + documented as of this encounter Visit Diagnoses + + | Diagnosis | + + | Common bile duct stone - Primary Calculus of bile duct without mention of | | cholecystitis or obstruction | + + documented in this encounter"
--- OUTSIDE RECORDS SUMMARY | ~2019-05-05 | XMS | Encounter Summary ---
Demographics + + + | Address | [address] | | | [place] [address] | + + + | Home Phone | | + + + | Preferred Language | Unknown | + + + | Marital Status | | + + + | Gnosticism Affiliation | 1077 | + + + | Race | Unknown | + + + | Ethnic Group | Unknown | + + + Author + + + | Author | [facility] | | | and Khurramana | + + + | Organization | [facility] | | | and [place] [...] Team Providers + +------+ + | Care Power Plant Technician Name | Role | Phone | + +------+ + | Susan Leso | PCP | | | PADex | [...] Description | +--------+---------+ + + + | 03/29/ | Surgery | [facility] | Mark Montana | Posterior Total Hip | | 2019 | | [facility] | MD [address] | Arthroplasty | | | | [address] | [address] | | | | | [address] | [place] [address] | | | | | [place], [place] | [phone] | | | | | [address] | | | | | | [phone] | | | +--------+---------+ + + + [...] Procedure: ERCP; Surgeon: Gregor Mccord MD; Location: [facility] MEDICAL PROCEDURE UNIT ERCP N/A 10/14/2016 Procedure: ERCP w/ stent pull; Surgeon: Gregor Mccord MD; Location: [facility] MEDICAL PROCEDU RE UNIT HARDWARE REMOVAL Left 03/29/2019 Procedure: REMOVE HARDWARE LOWER EXTREMITY-HIP; Surgeon: Mark Montana MD; Location : [facility] MAIN OR PARTIAL HYSTERECTOMY 1971 RECTOCELE REPAIR 1991 TAILBONE 1973 broken, partial removal TONSILLECTOMY 1938 TOTAL HIP ARTHROPLASTY Left 03/29/2019 Procedure: Posterior Total Hip Arthroplasty; Surgeon: Mark Montana MD; Location: [facility] MAIN OR Allergies Allergen Reactions [...] up: Gus Orozco PA-C [address] [facility] [address] In 2 weeks Discharge Medications Changed Medications [...] COZAAR METAMUCIL PO Take by mouth Daily. [facility] Misc Take by mouth. omeprazole [...] | | | | | | | ([facility]) | | | | | | | MISC | | | | | | + + + +---------+ + + | [place]-3 Fatty | Take 1 tablet by | [...] might be different fr om the original. [facility] Progress Note Primary Care Physician: Susan [...] | | | | | [place] [address] | | | | | | [phone] | | | | | | | | +--------+---------+ + + + | 06/30/ | Office | Cardiology | Smitha Griffin DO | | | 2019 | Visit | | [address] | | | | | | [place] | | | | | | [id number] | | | | | | | [...] | LABORATORY | | | | [address];[place], [place] | | | | | | [address] | | | | + + + + + + + + | Specimen | + + | | + + + + + + + | Performing | Address | City/State/Zipcode | Phone Number | | Organization | | | | + + + + + | [facility] | [address] | [place] [address] | [phone] | + + + + + POC [...] | LABORATORY | | | | [address];[place] | | | | | | [address] | | | | + + + + + + + + | Specimen | + + | | + + + + + + + | Performing | Address | City/State/Zipcode | Phone Number | | Organization | | | | + + + + + | [facility] | [address] | [place] [address] | [phone] | + + + + + POC [...] | LABORATORY | | | | [address];[place] | | | | | | [address] | | | | + + + + + + + + | Specimen | + + | | + + + + + + + | Performing | Address | City/State/Zipcode | Phone Number | | Organization | | | | + + + + + | [facility] | [address] | [place] [address] | [phone] | + + + + + Hemoglobin [...] | LABORATORY | | | | [address];[place] | | | | | | [address] | | | | + + + + + + + + | Specimen | + + | Blood | + + + + + + + | Performing | Address | City/State/Zipcode | Phone Number | | Organization | | | | + + + + + | [facility] | [address] | [place] [address] | [phone] | + + + + + POC [...] | LABORATORY | | | | [address];[place], [place] | | | | | | [address] | | | | + + + + + + + + | Specimen | + + | | + + + + + + + | Performing | Address | City/State/Zipcode | Phone Number | | Organization | | | | + + + + + | [facility] | [address] | [place] [address] | [phone] | + + + + + POC [...] | LABORATORY | | | | [address];[place], [place] | | | | | | [address] | | | | + + + + + + + + | Specimen | + + | | + + + + + + + | Performing | Address | City/State/Zipcode | Phone Number | | Organization | | | | + + + + + | [facility] | [address] | [place] [address] | [phone] | + + + + + XR [...] | LABORATORY | | | | [address];[place], [place] | | | | | | [address] | | | | + + + + + + + + | Specimen | + + | | + + + + + + + | Performing | Address | City/State/Zipcode | Phone Number | | Organization | | | | + + + + + | [facility] | [address] | [place] [address] | [phone] | + + + + + Type [...] + + + | BB BAND | [id number] | | [facility] | | | | | | LABORATORY | | + + + + + + | BB BAND | Testing performed at | | [facility] | | | | [facility];[address] | | LABORATORY | | | | [address];[place] [address] | | | | + + + + + + + + | Specimen | + + | Blood | + + + + + + + | Performing | Address | City/State/Zipcode | Phone Number | | Organization | | | | + + + + + | [facility] | [address] | [place] [address] | [phone] | + + + + + POC [...] | LABORATORY | | | | [address];[place], [place] | | | | | | [address] | | | | + + + + + + + + | Specimen | + + | | + + + + + + + | Performing | Address | City/State/Zipcode | Phone Number | | Organization | | | | + + + + + | [facility] | [address] | [place] [address] | [phone] | + + + + + documented [...] | | | + +--------+ + +------+------+ +-------+ + +---+---+ | Given | 03/31/20 [...] 9:25 | | | | | on Thu03/29/19 at 1230, | | AM PDT | [...] +---+---+ | | | +---+---+ + +-------+ +--------+---+ + | sodium chloride 0.9% (NS) 16 mL | Given | 03/29/20 | 50 mLs | | Hip-Left | | with bupivacaine | | 19 8:46 | | | | | 0.25%-EPINEPHrine 1:200,000 (PF) | | AM PDT | | | | | 30 mL, ketorolac (TORADOL) 30 mg, | | | | | | | cloNIDine (DURACLON) 0.1 mg, | | | | | | | morphine (PF) 8 mg unilateral | | | | | | | cocktail PRN, Starting Tue | | | | | | | 03/29/19 at 0846, Intra-op | | | | | | + +-------+ +--------+---+ + +---+---+ | | | +---+---+ + +-------+ [...] | | +-------+ +-------+---+---+ | Given | 03/30/20 | 50 mg | | | | | 19 8:57 | | | | | | AM PDT | | | | +-------+ +-------+---+---+ +---+---+ | | | +---+---+ documented in this encounter
--- OUTSIDE RECORDS SUMMARY | ~2019-05-05 | XMS | Encounter Summary ---
Demographics + + + | Address | [address] | | | [place] [address] | + + + | Home Phone | | + + + | Preferred Language | Unknown | + + + | Marital Status | | + + + | Zoroastrianism Affiliation | 1077 | + + + | Race | Unknown | + + + | Ethnic Group | Unknown | + + + Author + + + | Author | [facility] | | | and Khurramana | + + + | Organization | [facility] | | | and [place] [...] Team Providers + +------+ + | Care Information Strategist Name | Role | Phone | + +------+ + | Susan Leos | PCP | | | PA-C | | | + +------+ + Encounter Details +--------+ + + + + | Date | Type | Department | Care Team | Description | +--------+ + + + + | 09/23/ | Episode | [facility] [place] | Sonali Garcia | | | 2016 | Changes | GASTROENTEROLOGY | ROBI Foley | | | | | [address] [facility] | | | | | | [address] [place] | | | | | | [address] | | | | | | [phone] | | | +--------+ + + + [...] | | | | | [place] [address] | | | | | | [phone] | | | | | | | | +--------+---------+ + + + | 06/30/ | Office | Cardiology | Smitha Griffin DO | | | 2019 | Visit | | [address] | | | | | | [place] | | | | | | [address] | | | | | | | | +--------+---------+ + + + documented as of this encounter Visit Diagnoses Not on filedocumented in this encounter"
--- OUTSIDE RECORDS SUMMARY | ~2019-05-05 | XMS | Encounter Summary ---
Demographics + + + | Address | [address] | | | [place] [address] | + + + | Home Phone | | + + + | Preferred Language | Unknown | + + + | Marital Status | | + + + | Shinto Affiliation | 1077 | + + + | Race | Unknown | + + + | Ethnic Group | Unknown | + + + Author + + + | Author | [facility] | | | and Khurramana | + + + | Organization | [facility] | | | and [place] [...] Team Providers + +------+ + | Care Hair Colorist Name | Role | Phone | + [...] + + | 03/29/ | Surgery | [facility] | Mark [place] | Posterior Total Hip | | 2019 | | [facility] | MD [address]a [address] | Arthroplasty | | | | [address] | [address] | | | | | [address] | [place] [address] | | | | | [place], [place] | [phone] | | | | | [address] | | | | | | [phone] | | | +--------+---------+ + + + [...] Procedure: ERCP; Surgeon: Gregor Mccord MD; Location: [facility] MEDICAL PROCEDURE UNIT ERCP N/A 10/14/2016 Procedure: ERCP w/ stent pull; Surgeon: Gregor Mccord MD; Location: [facility] MEDICAL PROCEDU RE UNIT HARDWARE REMOVAL Left 03/29/2019 Procedure: REMOVE HARDWARE LOWER EXTREMITY-HIP; Surgeon: Mark [place] MD; Location : [facility] [place]IN [place] PARTIAL HYSTERECTOMY 1971 RECTOCELE REPAIR 1991 TAILBONE 1973 broken, partial removal TONSILLECTOMY 1938 TOTAL HIP ARTHROPLASTY Left 03/29/2019 Procedure: Posterior Total Hip Arthroplasty; Surgeon: Mark Montana MD; Location: [facility] MAIN OR Allergies Allergen Reactions Erythromycin Hives,Rash [...] up: Gus Orozco PA-C [address] [facility] [address] In 2 weeks Discharge Medications Changed Medications [...] | | | | | | | ([facility]) | | | | | | | MISC | | | | | | + + + +---------+ + + | [place]-3 Fatty | Take 1 tablet by | [...] might be different fr om the original. [facility] Progress Note Primary Care Physician: Susan [...] | | | | | [place] [address] | | | | | | [phone] | | | | | | | | +--------+---------+ + + + | 06/30/ | Office | Cardiology | Smitha Griffin DO | | | 2019 | Visit | | [address] | | | | | | [place] | | | | | | [address] | | | | | | | [...] | | | POC | performed at [facility];[address] | | LABORATORY | | | | [address];[place], [place] | | | | | | [address] | | | | + + + + + + + + | Specimen | + + | | + + + + + + + | Performing | Address | City/State/Zipcode | Phone Number | | Organization | | | | + + + + + | [facility] | [address] | [place] [address] | [phone] | + + + + + POC [...] | | | POC | performed at [facility];[address] | | LABORATORY | | | | [address];[place] | | | | | | [address] | | | | + + + + + + + + | Specimen | + + | | + + + + + + + | Performing | Address | City/State/Zipcode | Phone Number | | Organization | | | | + + + + + | [facility] | [address] | [place] [address] | [phone] | + + + + + POC Glucose (03/30/2019 8:57 PM PDT) + + + + + + | Component | Value | Ref Range | Performed | Pathologist | | | | | At | Signature | + + + + + + | Glucose, | 98Comment: Testing | 65 - 99 mg/dL | [facility] | | | POC | performed at [facility];[address] | | LABORATORY | | | | [address];[place] | | | | | | [address] | | | | + + + + + + + + | Specimen | + + | | + + + + + + + | Performing | Address | City/State/Zipcode | Phone Number | | Organization | | | | + + + + + | [facility] | [address] | [place] [address] | [phone] | + + + + + Hemoglobin [...] [facility] | | | | performed at [facility];[address] | | LABORATORY | | | | [address];[place] | | | | | | [address] | | | | + + + + + + + + | Specimen | + + | Blood | + + + + + + + | Performing | Address | City/State/Zipcode | Phone Number | | Organization | | | | + + + + + | [facility] | [address] | [place] [address] | [phone] | + + + + + POC [...] | | | POC | performed at [facility];[address] | | LABORATORY | | | | [address];[place], [place] | | | | | | [address] | | | | + + + + + + + + | Specimen | + + | | + + + + + + + | Performing | Address | City/State/Zipcode | Phone Number | | Organization | | | | + + + + + | [facility] | [address] | [place] [address] | [phone] | + + + + + POC [...] | | | POC | performed at [facility];[address] | | LABORATORY | | | | [address];[place], [place] | | | | | | [address] | | | | + + + + + + + + | Specimen | + + | | + + + + + + + | Performing | Address | City/State/Zipcode | Phone Number | | Organization | | | | + + + + + | [facility] | [address] | [place] [address] | [phone] | + + + + + XR [...] | | | POC | performed at [facility];[address] | | LABORATORY | | | | [address];[place], [place] | | | | | | [address] | | | | + + + + + + + + | Specimen | + + | | + + + + + + + | Performing | Address | City/State/Zipcode | Phone Number | | Organization | | | | + + + + + | [facility] | [address] | [place] [address] | [phone] | + + + + + Type [...] + + + | BB BAND | [id number] | | [facility] | | | | | | LABORATORY | | + + + + + + | BB BAND | Testing performed at | | [facility] | | | | [facility];[address] | | LABORATORY | | | | [address];[place] [address] | | | | + + + + + + + + | Specimen | + + | Blood | + + + + + + + | Performing | Address | City/State/Zipcode | Phone Number | | Organization | | | | + + + + + | [facility] | [address] | [place] [address] | [phone] | + + + + + POC Glucose (03/29/2019 6:42 AM PDT) + + + + + + | Component | Value | Ref Range | Performed | Pathologist | | | | | At | Signature | + + + + + + | Glucose, | 96Comment: Testing | 65 - 99 mg/dL | [facility] | | | POC | performed at [facility];[address] | | LABORATORY | | | | [address];[place], [place] | | | | | | [address] | | | | + + + + + + + + | Specimen | + + | | + + + + + + + | Performing | Address | City/State/Zipcode | Phone Number | | Organization | | | | + + + + + | [facility] | [address] | [place] [address] | [phone] | + + + + + documented [...]
--- OUTSIDE RECORDS SUMMARY | ~2019-05-05 | XMS | Encounter Summary ---
Demographics + + + | Address | [address] | | | [place] [address] | + + + | Home Phone [...] | Author | [facility] | | | and Khurramana | + + + | Organization | [facility] | | | and [...] Team Providers + +------+ + | Care Terra Cotta Mason Name | Role | Phone | + [...] | | Required | | (degenerativ | [facility], | HOSPITAL | | | | | e disc | PA-C [address] | [address] | | | | | disease), | [address] | [address]VE | | | | | lumbar | [place] | [place] | | | | | Spondylolist | [address] | [address] | | | | | hesis at | Phone: | Phone: | | | | | L4-L5 level | [phone] | [phone] | | | | | Bilateral | Fax: | Fax: | | | | | lumbar | [phone] | [phone] | | | | | radiculopath | | | | | | | y Neck pain | | | | | | | Procedures | | | | | | | faxed | | | | | | | 04/07 | | | +--------+ + + + + + Encounter Details +--------+ + + + + | Date | Type | Department | Care Team | Description | +--------+ + + + + | 04/01/ | Orders Only | [facility] [place] | Bogdanowicz, | 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 [address] | KYA Simon [address] | disc disease), | | | | [place], | [place], | lumbar (Primary Dx); | | | | [place] [address] | [place] [address] | 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
--- OUTSIDE RECORDS SUMMARY | ~2019-05-05 | XMS | Encounter Summary ---
Demographics + + + | Address | [address] | | | [place] [address] | + + + | Home Phone | | + + + | Preferred Language | Unknown | + + + | Marital Status | | + + + | Baptist Affiliation | 1077 | + + + | Race | Unknown | + + + | Ethnic Group | Unknown | + + + Author + + + | Author | [facility] | | | and Khurramana | + + + | Organization | [facility] | | | and [place] [...] Team Providers + +------+ + | Care Scientific Informatics Analyst Name | Role | Phone | + +------+ + | Susan Leos | PCP | | | PA-C | | | + +------+ + Encounter Details +--------+ + + + + | Date | Type | Department | Care Team | Description | +--------+ + + + + | 09/16/ | Abstract | [facility] [place] | Gregor Mccord MD | | | 2016 | | GASTROENTEROLOGY | [address] | | | | | [address] | [address] [place] | | | | | [address] [place] | [address] | | | | | [address] | | | | | | [phone] | | | +--------+ + + + [...] [place] | | | | | | [place] [address] | | | | | | [phone] | | | | | | | | +--------+---------+ + + + | 06/30/ | Office | Cardiology | Smitha Griffin DO | | | 2019 | Visit | | [address] | | | | | | [place] | | | | | | [address] | | | | | | | | +--------+---------+ + + + documented as of this encounter Visit Diagnoses Not on filedocumented in this encounter"
--- OUTSIDE RECORDS SUMMARY | ~2019-05-05 | XMS | Encounter Summary ---
Demographics + + + | Address | [address] | | | [place] [address] | + + + | Home Phone [...] Author | [facility] | | | and Khurramana | + + + | Organization | [facility] | | | and [...] Providers + +------+ + | Care Video Game Producer Name | Role | Phone | + +------+ + PCP | Unavailable | + +------+ + Encounter Details +--------+ + + + + | Date | Type | Department | Care Team | Description | +--------+ + + + + | 06/23/ | Hospital | [facility] GENER[facility] | | SCREENING MAMM-MAILG | | 2005 | Encounter | CONVERSION [address] | | [address] | | | | [address] | | | | | | [place] | | | | | | [address] | | | | | | [phone] | | | +--------+ + + + [...] [place] | | | | | | [facility] [address] | | | | | | [phone] | | | | | | | | +--------+---------+ + + + | 06/30/ | Office | Cardiology | Smitha Griffin DO | | | 2019 | Visit | | [address] | | | | | | [place] | | | | | | [address] | | | | | | | | +--------+---------+ + + + documented as of this encounter Visit Diagnoses + + | Diagnosis | + + | Other screening mammogram | + + documented in this encounter"
--- OUTSIDE RECORDS SUMMARY | ~2019-05-05 | XMS | Encounter Summary ---
Demographics + + + | Address | [address] | | | [place] [address] | + + + | Home Phone | | + + + | Preferred Language | Unknown | + + + | Marital Status | | + + + | Christianity Affiliation | 1077 | + + + | Race | Unknown | + + + | Ethnic Group | Unknown | + + + Author + + + | Author | [facility] | | | and Khurramana | + + + | Organization | [facility] | | [...] Team Providers + +------+ + | Care Skilled Nursing Professional Name | Role | Phone | + +------+ + PCP | Unavailable | + +------+ + Encounter Details +--------+ + + + + | Date | Type | Department | Care Team | Description | +--------+ + + + + | 10/20/ | Hospital | [facility] | | | | 1999 | Encounter | MED CTR LABORATORY | | | | | | [address] | | | | | | [place] | | | | | | [address] | | | | | | [phone] | | | +--------+ + + + [...] [place] | | | | | | [facility] [address] | | | | | | [phone] | | | | | | | | +--------+---------+ + + + | 06/30/ | Office | Cardiology | Smitha Griffin DO | | | 2019 | Visit | | [address] | | | | | | [place] | | | | | | [address] | | | | | | | | +--------+---------+ + + + documented as of this encounter Visit Diagnoses Not on filedocumented in this encounter"
--- OUTSIDE RECORDS SUMMARY | ~2019-05-05 | XMS | Encounter Summary ---
Demographics + + + | Address | [address] | | | [place] [address] | + + + | Home Phone | | + + + | Preferred Language | Unknown | + + + | Marital Status | | + + + | Mormon Affiliation | 1077 | + + + | Race | Unknown | + + + | Ethnic Group | Unknown | + + + Author + + + | Author | [facility] | | | and Khurramana | + + + | Organization | [facility] | [...] Team Providers + +------+ + | Care Toddler Guide Name | Role | Phone | + [...] | disc disease), | | | | [place], | [address] [place], | lumbar; | | | | [place] [address] | [place] [address] | Spondylolisthesis at | | | | [phone] | [phone] | L4-L5 level; | | | | [...] [place] | | | | | | [place] [address] | | | | | | [phone] | | | | | | | | +--------+---------+ + + + | 06/30/ | Office | Cardiology | Smitha GriffinDO | | | 2019 | Visit | | [address] | | | | | | [place] | | | | | | [address] | | | | | | | [...]
--- OUTSIDE RECORDS SUMMARY | ~2019-05-05 | XMS | Encounter Summary ---
Demographics + + + | Address | [address] | | | [place] [address] | + + + | Home Phone [...] + | Author | [facility] | | | and Khurramana | + + + | Organization | [facility] | | | and [...] Providers + +------+ + | Care Information Systems Project Manager Name | Role | Phone | [...] + + | 03/03/ | Telephone | [facility] | Malcom Mo[place], | [place] (discuss lab | | 2016 | | PHYSIATRY [address] | MD Desi SMITH | work ) | | | | [place], | [address] [place] | | | | | [place] [address] | [address] | | | | | [phone] | | | +--------+ + + + [...] [place] | | | | | | [facility] [address] | | | | | | [phone] | | | | | | | | +--------+---------+ + + + | 06/30/ | Office | Cardiology | Smitha Griffin DO | | | 2020 | Visit | | [address] | | | | | | [place] | | | | | | [id number] | | | | | | | | +--------+---------+ + + + documented as of this encounter Visit Diagnoses Not on filedocumented in this encounter"
--- OUTSIDE RECORDS SUMMARY | ~2019-05-05 | XMS | Encounter Summary ---
Demographics + + + | Address | [address] | | | [place] [address] | + + + | Home Phone [...] | Author | [facility] | | | and Khurramana | + + + | Organization | [facility] | [...] Team Providers + +------+ + | Care Twist Packer Name | Role | Phone | [...] | | | | | | | UT ERCP DX | | | | | | | COLLECTION | | | | | | | SPECIMEN | | | | | | | BRUSHING/WAS | | | | | | | [place] | | | | | | | [...] | | | | | [address] | [place] | | | | | [place] | [address] | | | | | [address] | | | | | | [phone] | | | +--------+ + + + + Anesthesia Record + + + + + | Procedure Name | Responsible | Anesthesia Start | Anesthesia Stop Time | | | Anesthesiologist | Time | | + + + + + | ERCP w/ stent pull | Harinder Mcgowan MD | 10/14/16 1234 | 10/14/16 1304 | | (N/A Gladys) | | | | + + + [...] [address] | | eral | Forearm; wocn-yom-ztovnq catheter | Patsy Dixon RN | Delicia [...] | | | | | [place] [address] | | | | | | [phone] | | | | | | | | +--------+---------+ + + + | 06/30/ | Office | Cardiology | Smitha Griffin DO | | | 2019 | Visit | | [address] | | | | | | [place] | | | | | | [address] | | | | | | | [...]
--- OUTSIDE RECORDS SUMMARY | ~2019-05-05 | XMS | Encounter Summary ---
Demographics + + + | Address | [address] | | | [place] [address] | + + + | Home Phone | | + + + | Preferred Language | Unknown | + + + | Marital Status | | + + + | Caodaism Affiliation | 1077 | + + + | Race | Unknown | + + + | Ethnic Group | Unknown | + + + Author + + + | Author | [facility] | | | and Khurramana | + + + | Organization | [facility] | | | and [...] Providers + +------+ + | Care Health Promotion Manager Name | Role | Phone | [...] | | | | | hip | [address] | [address] | | | | | | Phone: | Phone: | | | | | | [phone] | [phone] | | | | | | Fax: | Fax: | | | | | | [phone] | [phone] | + + + + + + [...] | | | | | from | [address] | [address] | | | | | [place] at | [address] | [address] [place] [address] | | | | | [facility] | [place], | [place], [place] | | | | | Procedures | [place] | [address] Phone: | | | | | NEW PATIENT | [address] | [phone] | | | | | | Phone: | Fax: | | | | | | [phone] | [phone] | | | | | | Fax: | | | | | | | [phone] | | + +--------+ + + + + Encounter Details +--------+---------+ + + + | Date | Type | Department | Care Team | Description | +--------+---------+ + + + | 03/21/ | Office | [facility] | Gus Orozco, | 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[place] [address] [address] | PA-C [address]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[place], [place] | [place], | left hip (Primary | | | | [address] | [place] [address] | Dx) | | | | [phone] | [phone] | | | | | | | [...] Procedure: ERCP; Surgeon: Gregor Mccord MD; Location: [facility] MEDICAL PROCEDURE UNIT ERCP N/A 10/14/2016 Procedure: ERCP w/ stent pull; Surgeon: Gregor Mccord MD; Location: [facility] MEDICAL PROCEDU RE UNIT PARTIAL HYSTERECTOMY 1971 [...] Maternal Uncle Social History Occupational History Occupation: [employer] WORKER Comment: RETIRED Tobacco Use Smoking status: Never [...] MISC, Take by mouth., Disp: , Rfl: Roundup-3 Fatty Acids (PRO NUTRIENTS OMEGA 3 PO), [...] 12 months?:yes Under the care of a instrument lens grinder?: no Diabetes Optimization?:well controlled diet No results found for: LABGLYC History of MRSA/MSSA infection?:no Metal sensitivity or allergy?:no Intolerance to certain specific opiate?:no DVT/PE Risk Stratification Personal history of DVT/PE?:no Cancer treatment in the last 5 years?:no Hormone replacement therapy?:no Tolerate aspirin?:asa Current Anticoagulation?:asa Chemical prophylaxis plan:asa Anticipated Discharge Plan Discharge home to care of daughter (princess), [facility]) Return for [...] [place] | | | | | | [place] [address] | | | | | | [phone] | | | | | | | | +--------+---------+ + + + | 06/30/ | Office | Cardiology | Smitha Griffin DO | | | 2019 | Visit | | [address] | | | | | | [place] | | | | | | [address] | | | | | | | [...]
--- OUTSIDE RECORDS SUMMARY | ~2019-05-05 | XMS | Encounter Summary ---
Demographics + + + | Address | [address] | | | [place] [address] | + + + | Home Phone [...] | [facility] | | | and Khurramana | + + + | Organization | [facility] | | | and [place] | + + + | Address | Unknown | + + + | Phone | Unavailable | + + + Support + + +---------+ + | Name | Relationship | Address | Phone | + + +---------+ + | Chrissie Leso | ECON | Unknown | | + + +---------+ + Care Team Providers + +------+ + | Care Community Health Nurse Supervisor Name | Role | Phone | + +------+ + | Susan Leos | PCP | | | PA-C | | | + +------+ + Encounter Details +--------+ + + + + | Date | Type | Department | Care Team | Description | +--------+ + + + + | 02/28/ | Hospital | [facility] | Malcom Mojica | Peripheral | | 2016 | Encounter | MED CTR LABORATORY | MD Desi SMITH | polyneuropathy (HCC) | | | | [address] [place] | [address] [place] | (Primary Dx) | | | | [place] | [address] | | | | | [address] | | | | | | [phone] | | | +--------+ + + + [...] | | | | | | | ([facility]) | | | | | | | MISC | | | | | | + + + +---------+--------+ + | Pingree-3 Fatty | Take 1 tablet by | [...] | | | | | [place] [address] | | | | | | [phone] | | | | | | | | +--------+---------+ + + + | 06/30/ | Office | Cardiology | Smitha Griffin DO | | | 2019 | Visit | | [address] | | | | | | [place] | | | | | | [id number] | | | | | | | [...] | | | | | | decisions. [facility] | | | | | | is [...] [place] | | | | | | [address] | | | | + + + [...] [address] | [place] [address] | [phone] | + + + + + Vitamin [...] Vitamin | | | | | | [email or web address].This test | | | | | | [...] [place] | | | | | | [address] | | | | + + + [...] [address] | [place] [address] | [phone] | + + + + + documented in this encounter Visit Diagnoses + + | Diagnosis | + + | Peripheral polyneuropathy - Primary Unspecified hereditary and idiopathic peripheral | | neuropathy | + + documented in this encounter"
--- OUTSIDE RECORDS SUMMARY | ~2019-05-05 | XMS | Encounter Summary ---
Demographics + + + | Address | [address] | | | [place] [address] | + + + | Home Phone [...] + | Author | [facility] | | | and Khurramana | + + + | Organization | [facility] | | | and [place] [...] Team Providers + +------+ + | Care Matching Machine Operator Name | Role | Phone [...] [address] | | | | | [place], | [place], | | | | | [place] [address] | [place] [address] | | | | | [phone] | [phone] | | | | | | | [...] [address] | | | | | | [place] [address] | | | | | | [phone] | | | | | | | | +--------+---------+ + + + | 06/30/ | Office | Cardiology | Smitha Griffin DO | | | 2019 | Visit | | [address] | | | | | | [place] | | | | | | [address] | | | | | | | | +--------+---------+ + + + documented as of this encounter Visit Diagnoses Not on filedocumented in this encounter"
--- OUTSIDE RECORDS SUMMARY | ~2019-05-05 | XMS | Encounter Summary ---
Demographics + + + | Address | [address] | | | [place] [address] | + + + | Home Phone | | + + + | Preferred Language | Unknown | + + + | Marital Status | | + + + | Yazidi Affiliation | 1077 | + + + | Race | Unknown | + + + | Ethnic Group | Unknown | + + + Author + + + | Author | [facility] | | | and Khurramana | + + + | Organization | [facility] | | [...] Team Providers + +------+ + | Care Technology Assistant Name | Role | Phone | [...] + | 05/05/ | Telephone | [facility] | [place] | Post-op Problem (MADELY[place] | | 2018 | | [address] | MD [address]a [address] | 03/29/19) | | | | [address]VD [place], [place] | [address]VD [place] [address] | | | | | [address] | [place] [address] | | | | | [phone] | [phone] | | | | | | | [...] | | | | | [place] [address] | | | | | | [phone] | | | | | | | | +--------+---------+ + + + | 06/30/ | Office | Cardiology | Smitha Griffin DO | | | 2020 | Visit | | [address] | | | | | | [place] | | | | | | [id number] | | | | | | | | +--------+---------+ + + + documented as of this encounter Visit Diagnoses Not on filedocumented in this encounter"
--- OUTSIDE RECORDS SUMMARY | ~2019-05-05 | XMS | Encounter Summary ---
Demographics + + + | Address | [address] | | | [place] [address] | + + + | Home Phone | | + + + | Preferred Language | Unknown | + + + | Marital Status | | + + + | Temple Affiliation | 1077 | + + + | Race | Unknown | + + + | Ethnic Group | Unknown | + + + Author + + + | Author | [facility] | | | and Khurramana | + + + | Organization | [facility] | | | and [place] [...] Team Providers + +------+ + | Care Outsole Caser Name | Role | Phone | + [...] [place] | | | | | | [place], | [address] | | | | | | [place] | [place], [place] | | | | | | [address] | [address] | | | | | | Phone: | Phone: | | | | | | [phone] | [phone] | | | | | | Fax: | Fax: | | | | | | [phone] | [phone] | +--------+--------+ + + + + Encounter Details +--------+---------+ + + + | Date | Type | Department | Care Team | Description | +--------+---------+ + + + | 04// | Office | [facility] | Gregor Mccord MD | Choledocholithiasis | | 2017 | Visit | GASTROENTEROLOGY | [address], [place] | (Primary Dx) | | | | [address] [place] | [address] [place], [place] | | | | | [address] [place], [place] | [address] | | | | | [address] | | | | | | [phone] | | | +--------+---------+ + + + [...] 3 Years of Education: 12 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
--- OUTSIDE RECORDS SUMMARY | ~2019-05-05 | XMS | Clinical Summary ---
Demographics + + + | Address | [address] | | | [place] [address] | + + + | Home Phone | | + + + | Preferred Language | Unknown | + + + | Marital Status | | + + + | Jainism Affiliation | 1077 | + + + | Race | Unknown | + + + | Ethnic Group | Unknown | + + + Author + + + | Author | [facility] | | | and Khurramana | + + + | Organization | [facility] | | | and [place] | [...] Providers + +------+ + | Care Manager Social Responsibility Name | Role | Phone | + [...] | | | | e | | ([facility]) | | | | | | | | MISC | | | | | | | + + + +---------+------+------+-------+ | [place]-3 Fatty | Take 1 tablet by | [...] | 0 | 10/0 | 11/0 | Expir | | (TYLENOL) 500 mg | mouth every 8 hours | tablet | | 7/20 | 6/20 | ed | | tablet | for 30 days. [...] | 42 | 0 | 10/0 | 11/ | Expir | | tablet | mouth Daily for 42 | tablet | | 01/01 | 02/01 | ed | | | days. For | | | 19 | 19 | | | | post-operative DVT | | | | | | | | prophylaxis | | | | | | + + + +---------+------+------+-------+ +---+ + | | Additional | | | informationPatient | | | not taking. Reported | | | on 03/21/2019 3:23 | | | PM | +---+ + + + +--------+---+------+------+-------+ | | Take 1 tablet by | 60 | 0 | 10/0 | 11/0 | Expir | | sennosides-docusate | mouth 2 times daily | tablet | | / | 12/02 | ed | | sodium (SENOKOT-S) | for 30 days. | | | 19 | 19 | | | 8.6-50 MG tablet | | | | | | | + + +--------+---+------+------+-------+ | polyethylene | Take 1 diluted | 7 | 0 | 10/ | 10/ | Expir | | glycol (MIRALAX) | packet by mouth | packet | | / | 10/02 | ed | | packet | Daily as needed for | | | 19 | 19 | | | | Constipation for up | | | | | | | | to 7 days. | | | | | | + + +--------+---+------+------+-------+ Active Problems + + + | Problem | Noted Date | + + + | Post-traumatic osteoarthritis of left hip | 03/21/2019 | + + + | Left hip pain | 03/15/2019 | + + + + + | Overview: Added automatically from request for surgery | | [id number] | + + + + + | [...] + + | 05/05/ | Telephone | Orthopedic Surgery | Mark [place] | Post-op Problem (MADELYN | | 2018 | | | MD [place] | 03/29/19) | +--------+ + + + + | 04/05/ | Telephone | Orthopedic Surgery | [place] | Post-op Question | | 2019 | | | MD [place]aina | | [...] | 2019 | | | MD [place]ain[place] | Arthroplasty [...] Appointment | | 2018 | | | Banking Representative | | +--------+ + + + [...] | Visit | | MD [place]aina [address] | | | | | | [place] | | | | | | [place] [address] | | | | | | [phone] | | | | | | | | +--------+---------+ + + + | 06/30/ | Office | Cardiology | Smitha Griffin DO | | | 2019 | Visit | | [address] | | | | | | [place] | | | | | | [address] | | | | | | | [...] | 9 | | | | of 2 - [...] /NA | | Mark Foley MD at [facility] | | | | | | /[id number] | | [facility] | | | | | | [...] /NA | | Mark Foley MD at [facility] | | | | | | /[id number] | | [facility] | | | | | | [...] /NA | | Mark Foley MD at [facility] | | | | | | /[id number] | | [facility] | | | | | | 802 | + +--------+--------+ +--------+--------+--------+ | Stent Bili Advnx 10fr 5cm - | Stent | | [place] | | | [id number] / | | [id number]: Qty: 1 on | | | SCIENTIFIC | | | / | | 09/26/2016 by Gregor Mccord | | | BIGG - BSCI | | | | Lucille Brock MD at [facility] | | | | | | | | [facility] | | | | | | [...] /NA | | Mark Foley MD at [facility] | | | | | | /[id number] | | [facility] | | | | | | 901A | + +--------+--------+ +--------+--------+--------+ | Screw Hex Lp [id number] - | | Left: | RANDI | | 11/20/ | [id number] | | SnaImplanted: Qty: 1 on | | Hip | MEDICAL - | | 2023 | 530 | | 03/29/2019 by Nan, | | | STRY | | | /NA | | Mark Foley MD at [facility] | | | | | | /[id number] | | [facility] | | | | | | [...] 3 Months Results POC Glucose (03/31/2019 11:58 AM PDT)Only the most recent of 7 results within the time carlos eduardo od is included. + + + + + + | Component | Value | Ref Range | Performed | Pathologist | | | | | At | Signature | + + + + + + | Glucose, | 62 (L)Comment: Testing | 65 - 99 mg/dL | [facility] | | | POC | performed at [facility];[address] | | LABORATORY | | | | [address];[place], [place] | | | | | | [address] | | | | + + + + + + + + | Specimen | + + | | + + + + + + + | Performing | Address | City/State/Zipcode | Phone Number | | Organization | | | | + + + + + | [facility] | [address] | [place] [address] | [phone] | + + + + + Hemoglobin [...] [facility] | | | | performed at [facility];[address] | | LABORATORY | | | | [address];[place], [place] | | | | | | [address] | | | | + + + + + + + + | Specimen | + + | Blood | + + + + + + + | Performing | Address | City/State/Zipcode | Phone Number | | Organization | | | | + + + + + | [facility] | [address] | [place] [address] | [phone] | + + + + + XR [...] + | Ricco Lawrence Results In - 03/29/2019 10:37 AM PDT [...] + Type and Screen (03/29/2019 7:59 AM PDT)Only the most recent of 2 results within the time period is included. [...] + + + | BB BAND | [id number] | | [facility] | | | | | | LABORATORY | | + + + + + + | BB BAND | Testing performed at | | [facility] | | | | [address] | | LABORATORY | | | | [address];[place] [address] | | | | + + + + + + + + | Specimen | + + | Blood | + + + + + + + | Performing | Address | City/State/Zipcode | Phone Number | | Organization | | | | + + + + + | [facility] | [address] | [place] [address] | [phone] | + + + + + Neuraxial (03/29/2019 7:52 AM PDT) + + [...] documentation. | + + MRSA NAAT (03/21/2019 3:37 PM PDT) + + + + + + | Component | Value | Ref Range | Performed | Pathologist | | | | | At | Signature | + + + + + + | SOURCE: | ANDRES(NOSE) | | [facility] | | | | | | LABORATORY | | + + + + + + | Result | NEGATIVEComment: Testing | MRSNEG | JETHRO | | | | performed at [facility];[address] | | LABORATORY | | | | [address];[place] | | | | | | [address] | | | | + + + + + + + + | Specimen | + + | Tissue - Both | | anterior nares (body | | structure) | + + + + + + + | Performing | Address | City/State/Zipcode | Phone Number | | Organization | | | | + + + + + | [facility] | [address] | [place] [address] | [phone] | + + + + + CBC [...] | | | | | performed at [facility];[address] | | | | | | [address];[place] | | | | | | [address] | | | | + + + + + + + + | Specimen | + + | Blood | + + + + + + + | Performing | Address | City/State/Zipcode | Phone Number | | Organization | | | | + + + + + | [facility] | [address] | [place] [address] | [phone] | + + + + + Hemoglobin A1C (03/21/2019 3:33 PM PDT) + + + + + + | Component | Value | Ref Range | Performed | Pathologist | | | | | At | Signature | + + + + + + | Hemoglobin | 5.8Comment: HbA1c method | 4.0 - 6.0 % | [facility] | | | A1c | is certified by [facility] | | LABORATORY | | | | [...] | 120Comment: Estimated | <154 mg/dL | [facility] | | | Average | Average Glucose | | LABORATORY | | | Glucose | calculated from | | | | | | hemoglobin A1c by use of | | | | | | the ADArecommended | | | | | | formula.Testing | | | | | | performed at [facility], [address] | | | | | | [address], | | | | | | [place] [address] | | | | + + + + + + + + | Specimen | + + | Blood | + + + + + + + | Performing | Address | City/State/Zipcode | Phone Number | | Organization | | | | + + + + + | [facility] | [address] | [place] [address] | [phone] | + + + + + Basic [...] | | | | | performed at [facility] | | | | | | [address];[place], [place] | | | | | | [address] | | | | + + + + + + + + | Specimen | + + | Blood | + + + + + + + | Performing | Address | City/State/Zipcode | Phone Number | | Organization | | | | + + + + + | [facility] | [address] | [place] [address] | [phone] | + + + + + ECG [...] + XR Hip Left 2-3 Views (03/14/2019 3:48 [...] | [facility] | [facility] | [id number] | 06/15/19 | | | Medica | | | HEALTH | | 17-Pre | | | re | | | MDCR | | sent | | | | + +--------+ +--------+-------+---------+--------+ | [facility] | [facility] | [id number] | | | | Medica | | [...] | 1936 | [phone] | [place] [address] | | | aissatou | | | 3 (Home) | | + +--------+ +--------+ + + | Scarlet Murguia | Person | Self | [birth year] | [birth year] | | | al/Fam | | 1936 | [phone] | [place] [address] | | | aissatou | | | 3 (Home) | | + +--------+ +--------+ + + Advance Directives + + + + + | Type | Date Recorded | Patient | Explanation | | | | Sliver Chopper | | + + + + + | Power of | | | | | Paste Worker | | | | + + + [...]
--- OUTSIDE RECORDS SUMMARY | ~2019-05-05 | XMS | Encounter Summary ---
Demographics + + + | Address | [address] | | | [place] [address] | + + + | Home Phone [...] Author | [facility] | | | and Khurramana | + + + | Organization | [facility] | | | and [...] Team Providers + +------+ + | Care Rotary Screen Printing Machine Operator Name | Role | Phone [...] 2017 | | GASTROENTEROLOGY | [address], [place] | | | | | [address] [place] | [address] [place], [place] | | | | | [address] [place], [place] | [address] | | | | | [address] | | | | | | [phone] | | | +--------+ + + + [...] [place] | | | | | | [place] [address] | | | | | | [phone] | | | | | | | | +--------+---------+ + + + | 06/30/ | Office | Cardiology | Smitha Griffin DO | | | 2019 | Visit | | [address] | | | | | | [place] | | | | | | [address] | | | | | | | | +--------+---------+ + + + documented as of this encounter Visit Diagnoses Not on filedocumented in this encounter"
--- OUTSIDE RECORDS SUMMARY | ~2019-05-05 | XMS | Encounter Summary ---
Demographics + + + | Address | [address] | | | [place] [address] | + + + | Home Phone [...] Team Providers + +------+ + | Care Professor Of Law Name | Role | Phone | + [...] [address] | | | | | | [place], [place] | | | | | | [address] | | | +--------+ + + + [...]
--- OUTSIDE RECORDS SUMMARY | ~2019-05-05 | XMS | Encounter Summary ---
Demographics + + + | Address | [address] | | | [place] [address] | + + + | Home Phone | | + + + | Preferred Language | Unknown | + + + | Marital Status | | + + + | Temple Affiliation | 1077 | + + + | Race | Unknown | + + + | Ethnic Group | Unknown | + + + Author + + + | Author | [facility] | | | and Khurramana | + + + | Organization | [facility] | | | and [...] Team Providers + +------+ + | Care Car Washer Name | Role | Phone | [...] + + | 03/03/ | Telephone | [facility] | Malcom Mojica, | [place] (discuss lab | | 2016 | | PHYSIATRY [address] | MD Desi SMITH | work ) | | | | [place], | [address] [place] | | | | | [place] [address] | [address] | | | | | [phone] | | | +--------+ + + + [...] [place] | | | | | | [facility] [place] [address] | | | | | | [phone] | | | | | | | | +--------+---------+ + + + | 06/30/ | Office | Cardiology | Smitha Griffin DO | | | 2020 | Visit | | [address] | | | | | | [place] | | | | | | [address] | | | | | | | | +--------+---------+ + + + documented as of this encounter Visit Diagnoses Not on filedocumented in this encounter"
--- OUTSIDE RECORDS SUMMARY | ~2019-05-05 | XMS | Encounter Summary ---
Demographics + + + | Address | [address] | | | [place] [address] | + + + | Home Phone | | + + + | Preferred Language | Unknown | + + + | Marital Status | | + + + | Latter Day Affiliation | 1077 | + + + | Race | Unknown | + + + | Ethnic Group | Unknown | + + + Author + + + | Author | [facility] | | | and Khurramana | + + + | Organization | [facility] [...] Team Providers + +------+ + | Care Paper Bundler Name | Role | Phone | + [...] | | | | | | | [place] ERCP DX | | | | | [...] + + | 09/26/ | Hospital | [facility] | Gregor Mccord MD | Choledocholithiasis | | 2017 | Encounter | MED CTR MP INTRA OP | [address] | (Primary Dx) | | | | [address] | [address] [place] | | | | | [place] | [address] | | | | | [address] | | | | | | [phone] | | | +--------+ + + + [...] or severe belly or abdominal pain Fever isbau523E (37.7C) or chills Upset stomach (nausea) and vomiting Black or tarry stools Date Last Reviewed: 11/25/201419994151-8396 [employer]. [address] [place] [address], [place] [address]. All righ ts reserved. This information is [...] | | | | | | | ([facility]) | | | | | | | MISC | | | | | | + + + +---------+ + + | [place]-3 Fatty | Take 1 tablet by | [...] BLFUENTES | | | | | | [place] [address] | | | | | | [phone] | | | | | | | | +--------+---------+ + + + | 06/30/ | Office | Cardiology | Smitha Griffin DO | | | 2019 | Visit | | [address] | | | | | | [place] | | | | | | [address] | | | | | | | [...] | | | | V[place]DA SHEPPARD MD ([id number]) | | | | | | on [...] | [facility] | | GastroenterologyPatient Name: November PlattsburgProcedure Date: 09/26/2016 | PROVATION | | 12:24 PMMRN: [id number] #: [id number] of : | | | 1935dmit Type: AmbulatoryAge: 80Room: [facility] 01Gender: FemaleNote | | | Status: FinalizedAttending MD: Gregor Mccord , MDProcedure: | | | ERCPIndications: Filling defect on intraoperative | | | cholangiogramProviders: Gregor Mccord MD, Jalyn Darden | | | ROBI Ring, Pablo Rothman CMA, | | | Laurie Hammond, Senior Service Aide, Paty Beverly | | | Michelle, Senior Service Aide, Enrique Llanos MD (Anesthesia | | | [...] | | | the anesthesiologist and the field support technician in the endoscopy suite. | | [...] the procedure | | | well.Findings: A mold maintenance technician film of the abdomen was obtained. | [...] | | 12:39:22 PMScope Out: 1:06:30 PM [facility] | | | [place], [address] [place] [address] | | | - Continue present medications. [...] |Scope Out: 1:06:30 PM | | | [facility], [address] [place] [address] | | | [address] | | + + -+ + +---------+ [...] | | | | V[place] SHEPPARD MD ([id number]) | | | | | | on [...]
--- OUTSIDE RECORDS SUMMARY | ~2019-05-05 | XMS | Encounter Summary ---
Demographics + + + | Address | [address] | | | [place] [address] | + + + | Home Phone | | + + + | Preferred Language | Unknown | + + + | Marital Status | | + + + | Caodaism Affiliation | Unknown | + + + | Race | White | + + + | Ethnic Group | Not or | + + + Author + + + | Author | [facility] | + + + | Organization | [facility] | + + + | [...] Team Providers + +------+ + | Care Photographic Enlarger Operator Name | Role | Phone | [...] Clinic Dermatology | | | | | [facility] | [address] [facility] | | | | | and Healing, | [place] | | | | | [facility] | [address] | | | | | Floor [place], [place] | | | | | | [address] | | | | | | [phone] | | | +--------+ + + + [...] | OLOGY | | | | Case: [id number] | | | | | | | [...] | [facility] | [address] | [place] [address] | | | DERMATOPATHOLOGY | [address] | | | + + + + + documented in this encounter Visit Diagnoses + + | Diagnosis | + + | Neoplasm of uncertain behavior of skin | + + documented in this encounter
--- OUTSIDE RECORDS SUMMARY | ~2019-05-05 | XMS | Encounter Summary ---
Demographics + + + | Address | [address] | | | [place] [address] | + + + | Home Phone [...] | Author | [facility] | | | and Khurramana | + + + | Organization | [facility] | | [...] Team Providers + +------+ + | Care Splicer Operator Name | Role | Phone | [...] 2017 | | GASTROENTEROLOGY | [address], [place] | ([facility]) | | | | [address] [place] | [address] [place], [place] | | | | | [address] [place], [place] | [address] | | | | | [address] | | | | | | [phone] | | | +--------+ + + + [...] | | | | | [place] [address] | | | | | | [phone] | | | | | | | | +--------+---------+ + + + | 06/30/ | Office | Cardiology | Smitha Griffin DO | | | 2020 | Visit | | [address] | | | | | | [place] | | | | | | [address] | | | | | | | | +--------+---------+ + + + documented as of this encounter Visit Diagnoses Not on filedocumented in this encounter"
--- OUTSIDE RECORDS SUMMARY | ~2019-05-05 | XMS | Encounter Summary ---
Demographics + + + | Address | [address] | | | [place] [address] | + + + | Home Phone | | + + + | Preferred Language | Unknown | + + + | Marital Status | | + + + | Jehovah'S Witness Affiliation | 1077 | + + + | Race | Unknown | + + + | Ethnic Group | Unknown | + + + Author + + + | Author | [facility] | | | and Khurramana | + + + | Organization | [facility] | | | and [place] [...] Providers + +------+ + | Care Director Of Donor Relations Name | Role | Phone | + [...] | | | | | | | IN ERCP DX | | | | | [...] + | 09/26/ | Anesthesia | [facility] | Enrique Llanos | | | 2016 | Event | MED CTR MP INTRA OP | MD Mc [address] | | | | | [address] | [facility] | | | | | [place] | [place] [address] | | | | | [address] | [phone] | | | | | [phone] | | | +--------+ + + + [...] [address] | | eral | Antecubital; [id number] | Patsy Dixon RN | Patsy Dixon [...] | | | | | [place] [address] | | | | | | [phone] | | | | | | | | +--------+---------+ + + + | 06/30/ | Office | Cardiology | Smitha Griffin DO | | | 2019 | Visit | | [address] | | | | | | [place] | | | | | | [address] | | | | | | | [...]
--- OUTSIDE RECORDS SUMMARY | ~2019-05-05 | XMS | Encounter Summary ---
Demographics + + + | Address | [address] | | | [place] [address] | + + + | Home Phone [...] | Author | [facility] | | | and Khurramana | + + + | Organization | [facility] | | | and [place] [...] Team Providers + +------+ + | Care Recovery Rn Name | Role | Phone | + [...] | | | | | (degenerativ | [address] | | | | | | e disc | Phone: | | | | | | disease), | [phone] | | | | | | lumbar | Fax: | | | | | | Bilateral | [phone] | | | | | | lumbar [...] 02/12/ | Telephone | [facility] | aRy, | Results | | 2015 | | PHYSIATRY [address] | [address] | | | | | [address] [place], | [place], | | | | | [place] [address] | [place] [address] | | | | | [phone] | | | | | | | [...] [place] | | | | | | [place] [address] | | | | | | [phone] | | | | | | | | +--------+---------+ + + + | 06/30/ | Office | Cardiology | Smitha Griffin DO | | | 2020 | Visit | | [address] | | | | | | [place] | | | | | | [address] | | | | | | | [...] +--------+ + + | AMB REFERRAL TO [facility] | Outpatient | Routin | Spondylolisthesis | [...]
--- OUTSIDE RECORDS SUMMARY | ~2019-05-05 | XMS | Encounter Summary ---
Demographics + + + | Address | [address] | | | [place] [address] | + + + | Home Phone [...] | Author | [facility] | | | and Khurramana | + + + | Organization | [facility] | [...] Team Providers + +------+ + | Care Material Handling Supervisor Name | Role | Phone | [...] | | | | | hip | [address] | [address] | | | | | | Phone: | Phone: | | | | | | [phone] | [phone] | | | | | | Fax: | Fax: | | | | | | [phone] | [phone] | + + + + + + [...] | | | | | from | [address] | [address] | | | | | [place]te[place] at | [address] | [address] [place] | | | | | [facility] | [place], | [place], [place] | | | | | Procedures | [place] | [address] Phone: | | | | | NEW PATIENT | [address] | [phone] | | | | | | Phone: | Fax: | | | | | | [phone] | [phone] | | | | | | Fax: | | | | | | | [phone] | | + +--------+ + + + + Encounter Details +--------+---------+ + + + | Date | Type | Department | Care Team | Description | +--------+---------+ + + + | 03/21/ | Office | [facility] | Gus Orozco, | 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[place], [place]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[place], | left hip (Primary | | | | [address] | [place] [address] | Dx) | | | | [phone] | | | | | | | [...] Procedure: ERCP; Surgeon: Gregor Mccord MD; Location: [facility] ERCP N/A 10/14/2016 Procedure: ERCP w/ stent pull; Surgeon: Gregor Mccord MD; Location: [facility] PARTIAL HYSTERECTOMY [...] Maternal Uncle Social History Occupational History 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 Tobacco Use Smoking status: Never [...] MISC, Take by mouth., Disp: , Rfl: [place]-3 Fatty Acids (PRO NUTRIENTS OMEGA 3 PO), [...] 12 months?:yes Under the care of a stallion manager?: no Diabetes Optimization?:well controlled diet No results found for: LABGLYC History of MRSA/MSSA infection?:no Metal sensitivity or allergy?:no Intolerance to certain specific opiate?:no DVT/PE Risk Stratification Personal history of DVT/PE?:no Cancer treatment in the last 5 years?:no Hormone replacement therapy?:no Tolerate aspirin?:asa Current Anticoagulation?:asa Chemical prophylaxis plan:asa Anticipated Discharge Plan Discharge home to care of daughter (princess), [facility]) Return for [...] [address] | | | | | | [place] [address] | | | | | | [phone] | | | | | | | | +--------+---------+ + + + | 06/30/ | Office | Cardiology | Smitha Griffin DO | | | 2019 | Visit | | [address] | | | | | | [place] | | | | | | [address] | | | | | | | [...]
--- OUTSIDE RECORDS SUMMARY | ~2019-05-05 | XMS | Encounter Summary ---
Demographics + + + | Address | [address] | | | [place] [address] | + + + | Home Phone [...] Author | [facility] | | | and Khurramana | + + + | Organization | [facility] | [...] Team Providers + +------+ + | Care Furniture Upholsterer Apprentice Name | Role | Phone | [...] | | | | | Spondylolist | [address] | [address] | | | | | hesis at | Phone: | Phone: | | | | | L4-L5 level | [phone] | [phone] | | | | | Bilateral | Fax: | Fax: | | | | | lumbar | [phone] | [phone] | | | | | radiculopath | [...] | disc disease), | | | | [place], | [place], | lumbar (Primary Dx); | | | | [place] [address] | [place] [address] | Spondylolisthesis | | | | [phone] | [phone] | at L4-L5 level; | | | [...] | | | | | | [place] [address] | | | | | | [phone] | | | | | | | | +--------+---------+ + + + | 06/30/ | Office | Cardiology | Smitha Griffin DO | | | 2020 | Visit | | [address] | | | | | | [place], [place] | | | | | | [address] | | | | | | | [...]
--- OUTSIDE RECORDS SUMMARY | ~2019-05-05 | XMS | Encounter Summary ---
Demographics + + + | Address | [address] | | | [place] [address] | + + + | Home Phone [...] | Author | [facility] | | | and Khurramana | + + + | Organization | [facility] | | | and [...] Team Providers + +------+ + | Care Packing Machine Can Feeder Name | Role | Phone | + [...] | | | | [address] [facility] | | | | | | [address] [place] | | | | | | [address] | | | | | | [phone] | | | +--------+ + + + [...] ARNOLD | | | | | | [address] | | | | | | [place] [address] | | | | | | [phone] | | | | | | | | +--------+---------+ + + + | 06/30/ | Office | Cardiology | Smitha Griffin DO | | | 2019 | Visit | | [address] | | | | | | [place] | | | | | | [address] | | | | | | | | +--------+---------+ + + + documented as of this encounter Visit Diagnoses Not on filedocumented in this encounter"
--- OUTSIDE RECORDS SUMMARY | ~2019-05-05 | XMS | Clinical Summary ---
Demographics + + + | Address | [address] | | | [place] [address] | + + + | Home Phone | | + + + | Preferred Language | Unknown | + + + | Marital Status | | + + + | Bahai Affiliation | Unknown | + + + [...] Team Providers + +------+ + | Care Conservation Policy Analyst Name | Role | Phone | + +------+ + PCP | Unavailable | + +------+ + Source Comments FIORELLA is fully live on both [facility] Ambulatory and [facility] InPatient.Formerly [facility], [facility] & [facility] Allergies Not on File Medications Not on [...] | [employer] | xxxxxxxxx | Effect | [phone] | [address] | PPO | | | MEDICA | | nestor | 4 | [phone] | | | | RE PPO | | for | | [place], | | | | | | all | | [place] [address] | | | | | | dates [...] | 1936 | [phone] | [place] [address] | | | aissatou | | | 3 (Home) | | + +--------+ +--------+ + +"
--- OUTSIDE RECORDS SUMMARY | ~2019-05-05 | XMS | Encounter Summary ---
Demographics + + + | Address | [address] | | | [place] [address] | + + + | Home Phone [...] | Author | [facility] | | | and Khurramana | + + + | Organization | [facility] | [...] Team Providers + +------+ + | Care Corrective Therapist Name | Role | Phone | + [...] + + | 10/14/ | Surgery | [facility] | Gregor Mccord MD | ERCP w/ stent pull | | 2017 | | MED CTR [facility] INTRA OP | [address], [place] | | | | | [address] | [address] [place], [place] | | | | | [place], [place] | [address] | | | | | [address] | | | | | | [phone] | | | +--------+---------+ + + + [...] | Blood Pressure | 162/65 | 10/14/2016 1:30 PM | | | | | PDT | | + + + + + | Pulse | 57 | 10/14/2016 1:30 PM | | | | | PDT | | + + + + + | Temperature | 36.2 C (97.2 F) | 10/14/2016 1:02 PM | | | | | PDT | | + + + + + | Respiratory Rate | 16 | 10/14/2016 1:30 PM | | | | | PDT | | + + + + + | Oxygen Saturation | 96% | 10/14/2016 1:30 PM | | | | | PDT [...] the test. This includes: All prescription medicines Fsjf-kxe-ticmsng medicines that don't need a prescription Any [...] infection or torn bowel. Date Last Reviewed: 12/01/201419992408-9303 [employer]. [address] [place] [address], [place] [address]. All righ ts reserved. This information is [...] You cannot be awakened Date Last Reviewed: 04/01/201619997088-8632 [employer]. [address] [place] [address], [place] [address]. All righ ts reserved. This information is [...] + + + +---------+ + + | [place]-3 Fatty | Take 1 tablet by | [...] | | | | | | [place] [address] | | | | | | [phone] | | | | | | | | +--------+---------+ + + + | 06/30/ | Office | Cardiology | Smitha Griffin DO | | | 2019 | Visit | | [address] | | | | | | [place] | | | | | | [id number] | | | | | | | [...] + + documented in this encounter Results SD ERCP (10/14/2016 1:06 PM PDT) + + [...] At | + + -+ | | [facility] | | GastroenterologyPatient Name: November Anabellacedkristal Date: 10/14/2016 12:25 | [facility]OVATION | | PMMRN: [id number] #: [id number] of : 1935dmit | | | Type: AmbulatoryAge: 80Room: [facility] 01Gender: FemaleNote Status: | | | FinalizedAttending MD: Gregor Mccord [facility]: | | | ERCPIndications: Biliary stent removalProviders: | | | Gregor Mccord MD, Jalyn Ring RN, Enigma | | | ROBI Tello, Harinder Mcgowan [...] the anesthesiologist and | | | the emergency technician in the endoscopy suite. Mental Status [...] was visible on the | | | caregivers non medical film. The esophagus was successfully intubated under [...] Scope In: 12:40:12 PMScope Out: 12:55:03 PM [place] | | | [facility], [address] [place] [address] | | | [phone] | | | - Continue present medications. [...] |Scope Out: 12:55:03 PM | | | [place] [facility], [address] , [place], [place] | | | [address] | | + + -+ + +---------+ [...]
--- OUTSIDE RECORDS SUMMARY | ~2019-05-05 | XMS | Encounter Summary ---
Demographics + + + | Address | [address] | | | [place] [address] | + + + | Home Phone [...] | Author | [facility] | | | and Khurramana | + + + | Organization | [facility] | | | and [place] [...] Team Providers + +------+ + | Care Asbestos Shingle Inspector Name | Role | Phone | [...] 2017 | | GASTROENTEROLOGY | [address], [place] | stent pull) | | | | [address] [place] | [address] [place], [place] | | | | | [address] [place], [place] | [address] | | | | | [address] | | | | | | [phone] | | | +--------+ + + + [...] | | | | | [place] [address] | | | | | | [phone] | | | | | | | | +--------+---------+ + + + | 06/30/ | Office | Cardiology | Smitha Griffin DO | | | 2019 | Visit | | [address] | | | | | | [place] | | | | | | [address] | | | | | | | [...]
--- OUTSIDE RECORDS SUMMARY | ~2019-05-05 | XMS | Encounter Summary ---
Demographics + + + | Address | [address] | | | [place] [address] | + + + | Home Phone [...] | Author | [facility] | | | and Khurramana | + + + | Organization | [facility] | [...] Providers + +------+ + | Care Technical Assistance Consultant Name | Role | Phone | [...] [place] | | | | | | [address] | | | | | | [phone] | | | +--------+ + + + [...] | | [facility] [address] | | | | | | [phone] | | | | | | | | +--------+---------+ + + + | 06/30/ | Office | Cardiology | Smitha Griffin DO | | | 2019 | Visit | | [address] | | | | | | [place] | | | | | | [address] | | | | | | | | +--------+---------+ + + + documented as of this encounter Visit Diagnoses + + | Diagnosis | + + | Other screening mammogram | + + documented in this encounter"
--- OUTSIDE RECORDS SUMMARY | ~2019-05-05 | XMS | Encounter Summary ---
Demographics + + + | Address | [address] | | | [place] [address] | + + + | Home Phone | | + + + | Preferred Language | Unknown | + + + | Marital Status | | + + + | Presybeterian Affiliation | Unknown | + + + | Race | White | + + + | Ethnic Group | Not or | + + + Author + + + | Author | [facility] | + + + | Organization | [facility] | + + + | [...] Team Providers + +------+ + | Care Production Floater Name | Role | Phone | + [...] | | | | | | [facility] | | | | | | and Healing, | | | | | | Building [address], [address]th | | | | | | Floor [place], [place] | | | | | | [address] | | | | | | [phone] | | | +--------+ + + + [...] ls | | | | | | Received:[id number]/WW-0 | | | | | | 360-16 [...] Materials | | | | | | Returned:[id number] | | | | | | 360-16 [...] + + | [facility] | [address], [address] | [place] [address] | | | DERMATOPATHOLOGY | [address] | | | + + + + + documented in this encounter Visit Diagnoses Not on filedocumented in this encounter"
--- OUTSIDE RECORDS SUMMARY | ~2019-05-05 | XMS | Clinical Summary ---
Demographics + + + | Address | [address] | | | [place] [address] | + + + | Home Phone [...] + | Author | [facility] [facility] (Historical as of | | | 01-29-19) | + + + | Organization | [facility] [employer] (Historical as of | | | 01-29-19) | + + + | Address | Unknown | + + + | Phone | Unavailable | + + + Support + + + + + | Name | Relationship | Address | Phone | + + + + + | Alejo Murguia | DIRK | [address] | | | | | [place] [address] | | + + + + + Care Team Providers + +------+ + | Care Elevator Builder Name | Role | Phone | + [...]
--- OUTSIDE RECORDS SUMMARY | ~2019-05-05 | XMS | Encounter Summary ---
Demographics + + + | Address | [address] | | | [place] [address] | + + + | Home Phone | | + + + | Preferred Language | Unknown | + + + | Marital Status | | + + + | Taoism Affiliation | 1077 | + + + | Race | Unknown | + + + | Ethnic Group | Unknown | + + + Author + + + | Author | [facility] | | | and Khurramana | + + + | Organization | [facility] | | | and [...] Team Providers + +------+ + | Care Patent Counsel Name | Role | Phone | + [...] 2016 | | GASTROENTEROLOGY | [address] | | | | | [address] | [address] [place] | | | | | [address] [place] | [address] | | | | | [address] | | | | | | [phone] | | | +--------+ + + + [...] [address] | | | | | | [place] [address] | | | | | | [phone] | | | | | | | | +--------+---------+ + + + | 06/30/ | Office | Cardiology | Smitha Griffin DO | | | 2019 | Visit | | [address] | | | | | | [place] | | | | | | [address] | | | | | | | | +--------+---------+ + + + documented as of this encounter Visit Diagnoses Not on filedocumented in this encounter"
--- OUTSIDE RECORDS SUMMARY | ~2019-05-05 | XMS | Encounter Summary ---
Demographics + + + | Address | [address] | | | [place] [address] | + + + | Home Phone | | + + + | Preferred Language | Unknown | + + + | Marital Status | | + + + | Buddhist Affiliation | 1077 | + + + | Race | Unknown | + + + | Ethnic Group | Unknown | + + + Author + + + | Author | [facility] | | | and Khurramana | + + + | Organization | [facility] | | | and [...] Team Providers + +------+ + | Care Applier Name | Role | Phone | + [...] | | | | | Spondylolist | [address] | [address] | | | | | hesis at | Phone: | Phone: | | | | | L4-L5 level | [phone] | [phone] | | | | | Bilateral | Fax: | Fax: | | | | | lumbar | [phone] | [phone] | | | | | radiculopath | [...] | n | al disc | PA-C [address] | | | | | displacement | [address] | [place], [place] | | | | | , lumbar | Ave | [address] Phone: | | | | | region | [place], | [phone] | | | | | | [place] | Fax: | | | | | | [address] | [phone] | | | | | | Phone: | | | | | | | [phone] | | | | | | | Fax: | | | | | | | [phone] | | +--------+--------+ + + + + Encounter Details +--------+---------+ + + + | Date | Type | Department | Care Team | Description | +--------+---------+ + + + | 02/03/ | Office | [facility] | Ray, | DDD (degenerative | | 2016 | Visit | PHYSIATRY [address] | [address] | disc disease), | | | | [place], | [place], | lumbar (Primary Dx); | | | | [place] [address] | [place] [address] | Spondylolisthesis | | | | [phone] | [phone] | at L4-L5 level; | | | [...] when you are done getting this in [facility], please call our offi ce and ask [...] of blood sugars if you are diabetic. termination clerk risk can lead to osteoporosis which is [...] [facility]) MISC Take by mouth. [place]-3 Fatty Acids (PRO NUTRIENTS OMEGA 3 PO) [...] has no apparent deficits with short or longwall shearer operator memory. She has appropriate fund of knowledge [...] had a NCS performed b y a sign poster in [place]. I would like to get those records. [...] | | | | | [place] [address] | | | | | | [phone] | | | | | | | | +--------+---------+ + + + | 06/30/ | Office | Cardiology | Smitha Griffin DO | | | 2019 | Visit | | [address] | | | | | | [place] | | | | | | [address] | | | | | | | [...]
--- OUTSIDE RECORDS SUMMARY | ~2019-05-05 | XMS | Clinical Summary ---
Demographics + + + | Address | [address] | | | [place] [address] | + + + | Home Phone | | + + + | Preferred Language | Unknown | + + + | Marital Status | | + + + | Adventism Affiliation | 1077 | + + + | Race | Unknown | + + + | Ethnic Group | Unknown | + + + Author + + + | Author | [facility] | | | and Khurramana | + + + | Organization | [facility] | [...] Providers + +------+ + | Care Senior Grants Officer Name | Role | Phone | [...] | | | | e | | ([facility]) | | | | | | | | MISC | | | | | | | + + + +---------+------+------+-------+ | [place]-3 Fatty | Take 1 tablet by | [...] automatically from request for surgery | | [id number] | + + + + + | [...] Appointment | | 2018 | | | Solar Energy System Installer Helper | | +--------+ + + + + [...] | | | | | | [place] [address] | | | | | | [phone] | | | | | | | | +--------+---------+ + + + | 06/30/ | Office | Cardiology | Smitha Griffin DO | | | 2019 | Visit | | [address] | | | | | | [place] | | | | | | [address] | | | | | | | [...] /NA | | Mark Foley MD at [facility] | | | | | | /[id number] | | [facility] | | | | | | [...] /NA | | Mark Foley MD at [facility] | | | | | | /[address] | | [facility] | | | | | | [...] /NA | | Mark Foley MD at [facility] | | | | | | /[address] | | [facility] | | | | | | 802 | + +--------+--------+ +--------+--------+--------+ | Stent Bili Advnx 10fr 5cm - | Stent | | [place] | | | 3432 / | | [id number]: Qty: 1 on | | | SCIENTIFIC | | | / | | 09/26/2016 by Gregor Mccord | | | BIGG - BSCI | | | | Lucille Brock MD at [facility] | | | | | | | | [facility] | | | | | | [...] /NA | | Mark Foley MD at [facility] | | | | | | /[address] | | [facility] | | | | | | 901A | + +--------+--------+ +--------+--------+--------+ | Screw Hex Lp [id number] - | | Left: | RANDI | | 11/20/ | 7030-6 | | SnaImplanted: Qty: 1 on | | Hip | MEDICAL - | | 2023 | 530 | | 03/29/2019 by Nan, | | | STRY | | | /NA | | Mark Foley MD at [facility] | | | | | | /4RS | | [facility] | | | | | | [...] Testing | 65 - 99 mg/dL | [facility] | | | POC | performed at [facility];[address] | | LABORATORY | | | | [address];[place], [place] | | | | | | [address] | | | | + + + + + + + + | Specimen | + + | | + + + + + + + | Performing | Address | City/State/Zipcode | Phone Number | | Organization | | | | + + + + + | [facility] | [address] | [place] [address] | [phone] | + + + + + Hemoglobin [...] [facility] | | | | performed at [facility];[address] | | LABORATORY | | | | [address];[place], [place] | | | | | | [address] | | | | + + + + + + + + | Specimen | + + | Blood | + + + + + + + | Performing | Address | City/State/Zipcode | Phone Number | | Organization | | | | + + + + + | [facility] | [address] | [place] [address] | [phone] | + + + + + XR [...] + + + | [facility] | [id number] | | [facility] | | | | | | LABORATORY | | + + + + + + | [facility] | Testing performed at | | [facility] | | | | [facility];[address] | | LABORATORY | | | | [address];[place] [address] | | | | + + + + + + + + | Specimen | + + | Blood | + + + + + + + | Performing | Address | City/State/Zipcode | Phone Number | | Organization | | | | + + + + + | [facility] | [address] | [place] [address] | [phone] | + + + + + Neuraxial [...] JETHRO | | | | performed at [facility];[address] | | LABORATORY | | | | [address];[place] | | | | | | [address] | | | | + + + [...] [facility] | [address] | [place] [address] | [phone] | + + + + + CBC [...] | | | | | performed at [facility];[address] | | | | | | [address];[place] | | | | | | [address] | | | | + + + + + + + + | Specimen | + + | Blood | + + + + + + + | Performing | Address | City/State/Zipcode | Phone Number | | Organization | | | | + + + + + | [facility] | [address] | [place] [address] | [phone] | + + + + + Hemoglobin A1C (03/21/2019 3:33 PM PDT) + + + + + + | Component | Value | Ref Range | Performed | Pathologist | | | | | At | Signature | + + + + + + | Hemoglobin | 5.8Comment: HbA1c method | 4.0 - 6.0 % | [facility] | | | A1c | is certified by [facility] | | LABORATORY | | | [...] | 120Comment: Estimated | <154 mg/dL | [facility] | | | Average | Average Glucose | | LABORATORY | | | Glucose | calculated from | | | | | | hemoglobin A1c by use of | | | | | | the ADArecommended | | | | | | formula.Testing | | | | | | performed at [facility], [address] | | | | | | [address], | | | | | | [place] [address] | | | | + + + + + + + + | Specimen | + + | Blood | + + + + + + + | Performing | Address | City/State/Zipcode | Phone Number | | Organization | | | | + + + + + | [facility] | [address] | [place] [address] | [phone] | + + + + + Basic [...] | | | | | performed at [facility] | | | | | | [address];[place], [place] | | | | | | [address] | | | | + + + + + + + + | Specimen | + + | Blood | + + + + + + + | Performing | Address | City/State/Zipcode | Phone Number | | Organization | | | | + + + + + | [facility] | [address] | [place] [address] | [phone] | + + + + + ECG [...] | [employer] [facility] [facility] | [facility] | [id number] | 06/15/19 | | | Medica | | | HEALTH | | 17-Pre | | | re | | | MDCR | | sent | | | | + +--------+ +--------+-------+---------+--------+ | [facility] | [employer] | [id number] | | | | Medica | | [...] | 1936 | [phone] | [place] [address] | | | [place] | | | 3 (Home) | | + +--------+ +--------+ + + | Scarlet Murguia | Person | Self | [birth year] | [address] | | | al/Fam | | 1936 | [phone] | [place] [address] | | | [place] | | | 3 (Home) | | + +--------+ +--------+ + + Advance Directives + + + + + | Type | Date Recorded | Patient | Explanation | | | | Beveler | | + + + + + | Power of | | | | | Funeral Assistant | | | | + + + [...]
--- OUTSIDE RECORDS SUMMARY | ~2019-05-05 | XMS | Clinical Summary ---
Demographics + + + | Address | [address] | | | [place] [address] | + + + | Home Phone [...] Team Providers + +------+ + | Care Mobile Application Engineer Name | Role | Phone | + +------+ + PCP | Unavailable | + +------+ + Source Comments FIORELLA is fully live on both [facility] Ambulatory and [facility] InPatient.[facility] & [facility] Allergies Not on File Medications Not on [...] | [employer] | xxxxxxxxx | Effect | [phone] | [address] | PPO | | | [employer] | | nestor | 4 | [address] | | | | RE PPO | | for | | [place], | | | | | | all | | [place] [address] | | | | | | dates [...] | 1936 | [phone] | [place] [address] | | | [place] | | | 3 (Home) | | + +--------+ +--------+ + +"
--- OUTSIDE RECORDS SUMMARY | ~2019-05-05 | XMS | Encounter Summary ---
Demographics + + + | Address | [address] | | | [place] [address] | + + + | Home Phone [...] + | Author | [facility] | | | and Khurramana | + + + | Organization | [facility] | | | and [place] [...] Providers + +------+ + | Care Mill Dresser Name | Role | Phone | + [...] [place] | | | | | | [place], | [address] | | | | | | [place] | [place], [place] | | | | | | [address] | [address] | | | | | | Phone: | Phone: | | | | | | [phone] | [phone] | | | | | | Fax: | Fax: | | | | | | [phone] | [phone] | +--------+--------+ + + + + Encounter Details +--------+---------+ + + + | Date | Type | Department | Care Team | Description | +--------+---------+ + + + | 04// | Office | [facility] | Gregor Mccord MD | Choledocholithiasis | | 2017 | Visit | GASTROENTEROLOGY | [address], [place] | (Primary Dx) | | | | [address] [place] | [address] [place], [place] | | | | | [address] [place], [place] | [address] | | | | | [address] | | | | | | [phone] | | | +--------+---------+ + + + [...] 3 Years of Education: 12 Occupational History [employer] Social History Main Topics Smoking status: [...] | | | | | [place] [address] | | | | | | [phone] | | | | | | | | +--------+---------+ + + + | 06/30/ | Office | Cardiology | Smitha Griffin DO | | | 2019 | Visit | | [address] | | | | | | [place] | | | | | | [address] | | | | | | | | +--------+---------+ + + + documented as of this encounter Visit Diagnoses + + | Diagnosis | + + | Choledocholithiasis - Primary Calculus of bile duct without mention of cholecystitis | | or obstruction | + + documented in this encounter
--- OUTSIDE RECORDS SUMMARY | ~2019-05-05 | XMS | Encounter Summary ---
Demographics + + + | Address | [address] | | | [place] [address] | + + + | Home Phone [...] Author | [facility] | | | and Khurramana | + + + | Organization | [facility] | | | and [...] Providers + +------+ + | Care Salesperson New Cars Name | Role | Phone | + [...] | | | | | | | MA ERCP DX | | | | | | | COLLECTION | | | | | | | SPECIMEN | | | | | | | BRUSHING/WAS | | | | | | | ORLANDO MA | | | | | | | ANESTH,UGI | | | | | | | ENDOSCOPY | | | | | | | ERCP | | | +--------+--------+ + + + + Encounter Details +--------+ + + + + | Date | Type | Department | Care Team | Description | +--------+ + + + + | 10/14/ | Hospital | [facility] | Gregor Mccord MD | Choledocholithiasis | | 2017 | Encounter | MED CTR MP INTRA OP | [address], [place] | (Primary Dx) | | | | [address] | [address] [place], [place] | | | | | [place], [place] | [address] | | | | | [address] | | | | | | [phone] | | | +--------+ + + + [...] documented in this encounter Discharge Instructions Instructions eDlicia Villalba RN - 10/14/2016Formatting of this note [...] the test. This includes: All prescription medicines Jqec-pew-cckzzgu medicines that don't need a prescription Any [...] infection or torn bowel. Date Last Reviewed: 12/01/201419994075-1354 [employer]. [address] [place] [address], [place] [address]. All righ ts reserved. This information is [...] You cannot be awakened Date Last Reviewed: 04/01/201619999561-8577 [employer]. [address] [place] [address]. All righ ts reserved. This information is [...] | | | | | | | ([facility]) | | | | | | | MISC | | | | | | + + + +---------+ + + | [place]-3 Fatty | Take 1 tablet by | [...] [place] | | | | | | [place] [address] | | | | | | [phone] | | | | | | | | +--------+---------+ + + + | 06/30/ | Office | Cardiology | Smitha Griffin DO | | | 2019 | Visit | | [address] | | | | | | [place] | | | | | | [address] | | | | | | | [...] | [facility] | | GastroenterologyPatient Name: November Chilo Date: 10/14/2016 12:25 | [employer] | | PMMRN: [id number] #: [id number] of : 1936Admit | | | Type: AmbulatoryAge: 80Room: [facility] 01Gender: FemaleNote Status: | | | FinalizedAttending MD: Gregor Mccord [facility]cedure: | | | ERCPIndications: Biliary stent removalProviders: | | | Gregor Mccord MD, Jalyn Ring RN, Clarinda | | | ROBI Tello, Harinder Mcgowan [...] the anesthesiologist and | | | the lift team technician in the endoscopy suite. Mental Status [...] was visible on the | | | food safety scientist film. The esophagus was successfully intubated under [...] Scope In: 12:40:12 PMScope Out: 12:55:03 PM [place] | | | [facility], [address] [place] [address] | | | [phone] | | | - Continue present medications. [...] |Scope Out: 12:55:03 PM | | | [facility], [address] [place] | | | [address] | | + + -+ + +---------+ [...] documented in this encounter Administered Medications + +---------+ [...]
--- OUTSIDE RECORDS SUMMARY | ~2019-05-05 | XMS | Encounter Summary ---
Demographics + + + | Address | [address] | | | [place] [address] | + + + | Home Phone [...] Author | [facility] | | | and Khurramana | + + + | Organization | [facility] | | | and [place] | + + + | Address | Unknown | + + + | Phone | Unavailable | + + + Support + + +---------+ + | Name | Relationship | Address | Phone | + + +---------+ + | Chirssie Leos | ECON | Unknown | | + + +---------+ + Care Team Providers + +------+ + | Care Emery Wheel Molder Name | Role | Phone | [...] | | | | | | | ID ERCP DX | | | | | | | COLLECTION | | | | | | | SPECIMEN | | | | | | | BRUSHING/WAS | | | | | | | [place]LANDO ID | | | | | | | ANESTH,UGI | | | | | | | ENDOSCOPY | | | | | | | ERCP | | | +--------+--------+ + + + + Encounter Details +--------+---------+ + + + | Date | Type | Department | Care Team | Description | +--------+---------+ + + + | 10/14/ | Surgery | [facility] | Gregor Mccord MD | ERCP w/ stent pull | | 2017 | | MED CTR MP INTRA OP | [address], [place] | | | | | [address] | [address] [place], [place] | | | | | [place], [place] | [address] | | | | | [address] | | | | | | [phone] | | | +--------+---------+ + + + [...] the test. This includes: All prescription medicines Tdvx-bvv-sefzato medicines that don't need a prescription Any [...] infection or torn bowel. Date Last Reviewed: 12/01/201419991073-6506 [employer]. [address] [place] [address], [place] [address]. All righ ts reserved. This information is [...] You cannot be awakened Date Last Reviewed: 04/01/201619995149-6489 [employer]. [address] [place] [address], [place] [address]. All righ ts reserved. This information is [...] | | | | | | | ([facility]) | | | | | | | MISC | | | | | | + + + +---------+ + + | [place]-3 Fatty | Take 1 tablet by | [...] | | | | | | [place] [address] | | | | | | [phone] | | | | | | | | +--------+---------+ + + + | 06/30/ | Office | Cardiology | Smitha Griffin DO | | | 2019 | Visit | | [address] | | | | | | [place] | | | | | | [address] | | | | | | | [...] + + documented in this encounter Results AL ERCP (10/14/2016 1:06 PM PDT) + + [...] 10/14/2016 12:25 | [employer] | | PMMRN: [id number] #: [id number] of : 1935dmit | | | Type: AmbulatoryAge: 80Room: [facility] 01Gender: FemaleNote Status: | | | FinalizedAttending MD: Gregor Mccord [facility] | | | ERCPIndications: Biliary stent removalProviders: | | | Gregor Mccord MD, Jalyn Ring RN, [place] | | | ROBI Tello, Harinder Mcgowan [...] the anesthesiologist and | | | the media technician in the endoscopy suite. Mental Status [...] was visible on the | | | wafer cleaner film. The esophagus was successfully intubated under [...] Scope In: 12:40:12 PMScope Out: 12:55:03 PM [place] | | | [facility], [address] [place] [address] | | | [phone] | | | - Continue present medications. [...] |Scope Out: 12:55:03 PM | | | [place] [facility], [address] , [place], [place] | | | [address] | | + + -+ + +---------+ [...]
--- OUTSIDE RECORDS SUMMARY | ~2019-05-05 | XMS | Encounter Summary ---
Demographics + + + | Address | [address] | | | [place] [address] | + + + | Home Phone [...] | Author | [facility] | | | and Khurramana | + + + | Organization | [facility] | | | and [place] [...] Team Providers + +------+ + | Care Command And Control Specialist Name | Role | Phone | [...] | | | | [address] [facility] | | | | | | [address] [place] | | | | | | [address] | | | | | | [phone] | | | +--------+ + + + [...] | | | | | [place] [address] | | | | | | [phone] | | | | | | | | +--------+---------+ + + + | 06/30/ | Office | Cardiology | Smitha Griffin DO | | | 2019 | Visit | | [address] | | | | | | [place] | | | | | | [address] | | | | | | | | +--------+---------+ + + + documented as of this encounter Visit Diagnoses Not on filedocumented in this encounter"
--- OUTSIDE RECORDS SUMMARY | ~2019-05-05 | XMS | Encounter Summary ---
Demographics + + + | Address | [address] | | | [place] [address] | + + + | Home Phone | | + + + | Preferred Language | Unknown | + + + | Marital Status | | + + + | Yazdanism Affiliation | 1077 | + + + | Race | Unknown | + + + | Ethnic Group | Unknown | + + + Author + + + | Author | [facility] | | | and Khurramana | + + + | Organization | [facility] | [...] Team Providers + +------+ + | Care Mainspring Winder Name | Role | Phone | + +------+ + PCP | Unavailable | + +------+ + Encounter Details +--------+ + + + + | Date | Type | Department | Care Team | Description | +--------+ + + + + | 10/20/ | Hospital | [facility] | | | | 1999 | Encounter | MED CTR LABORATORY | | | | | | [address] [place] | | | | | | [place] | | | | | | [address] | | | | | | [phone] | | | +--------+ + + + [...] [place] | | | | | | [facility] [address] | | | | | | [phone] | | | | | | | | +--------+---------+ + + + | 06/30/ | Office | Cardiology | Smitha Griffin DO | | | 2019 | Visit | | [address] | | | | | | [place] | | | | | | [address] | | | | | | | | +--------+---------+ + + + documented as of this encounter Visit Diagnoses Not on filedocumented in this encounter"
--- OUTSIDE RECORDS SUMMARY | ~2019-05-05 | XMS | Encounter Summary ---
Demographics + + + | Address | [address] | | | [place] [address] | + + + | Home Phone [...] | Author | [facility] | | | and Khurramana | + + + | Organization | [facility] | | | and [place] | [...] Team Providers + +------+ + | Care Glass Calibrator Name | Role | Phone | [...] | | | | | [address] | [place] | | | | | [place] | [address] | | | | | [address] | | | | | | [phone] | | | +--------+ + + + [...] [address] | | eral | Forearm; tbut-qyx-xklawv catheter | Patsy Dixon RN | Delicia [...] | | | | | [place] [address] | | | | | | [phone] | | | | | | | | +--------+---------+ + + + | 06/30/ | Office | Cardiology | Smitha Griffin DO | | | 2019 | Visit | | [address] | | | | | | [place] | | | | | | [address] | | | | | | | [...]
--- OUTSIDE RECORDS SUMMARY | ~2019-05-05 | XMS | Encounter Summary ---
Demographics + + + | Address | [address] | | | [place] [address] | + + + | Home Phone [...] Author | [facility] | | | and Khurramana | + + + | Organization | [facility] | | | and [...] Team Providers + +------+ + | Care Organizational Research Consultant Name | Role | Phone | [...] Hyper | MD Malcom | [address] | | | | | reflexia | [address] | [place] | | | | | Abnormal | [place] | [place] | | | | | gait | [address] | [address] | | | | | Procedures | [place] | Phone: | | | | | MRI Cervical | [address] | [phone] | | | | | Spine wo | Phone: | Fax: | | | | | Contrast | [phone] | [phone] | | | | | | Fax: | | | | | | | [phone] | | +--------+--------+ + + + + [...] | (Primary Dx); | | | | [place], | [place] [address] [place] | Abnormal gait | | | | [place] [address] | [address] | | | | | [phone] | | | +--------+ + + + [...] | | | | | [place] [address] | | | | | | [phone] | | | | | | | | +--------+---------+ + + + | 06/30/ | Office | Cardiology | Smitha Griffin DO | | | 2019 | Visit | | [address] | | | | | | [place] | | | | | | [id number] | | | | | | | [...]
--- OUTSIDE RECORDS SUMMARY | ~2019-05-05 | XMS | Encounter Summary ---
Demographics + + + | Address | [address] | | | [place] [address] | + + + | Home Phone [...] | [facility] | | | and Khurramana | + + + | Organization | [facility] | | | and [place] | [...] Providers + +------+ + | Care Production Control Technologist Name | Role | Phone | [...] | | Physical | Diagnoses | | [place], | | | | Medicine and | Disturbance | Ray, | MD Malcom | | | | Rehabilitatio | of skin | [place], | [address] | | | | n | sensation | PA-C [address] | [place] [address] | | | | | Procedures | [address] | [place] | | | | | [place] MOTOR | [place] | [address] Phone: | | | | | &/SENS 1-2 | [address] | [phone] | | | | | NRV CNDJ | Phone: | Fax: | | | | | PRECONF | [phone] | [phone] | | | | | ELTRODE LIMB | Fax: | | | | | | TX NEEDLE | [phone] | | | | | | EMG EA | | | | | | | EXTREMITY | | | | | | | W/PARASPINL | | | | | | | AREA LIMITED | | | | | | | TX EMG, | | | | | | | NEEDLE, TWO | | | | | | | LIMBS [place] | | | | | | | MOTOR &/SENS | | | | | | | 3-4 NRV | | | | | | | CNDJ PRECONF | | | | | | | ELTRODE | | | | | | | LIMB TX | | | | | | | MOTOR &/SENS | | | | | | | 5-6 NRV | | | | | | | CNDJ PRECONF | | | | | | | ELTRODE | | | | | | | LIMB TX | | | | | | | NEEDLE EMG | | | | | | | EA EXTREMTY | | | | | | | W/PARASPINL | | | | | | | AREA | | | | | | | COMPLETE TX | | | | | | | [...] | polyneuropathy (HCC) | | | | [place], | [address] [place] | (Primary Dx); Hyper | | | | [place] [address] | [phone] | reflexia | | | | [phone] | | | +--------+ + + + [...] | | | | | [place] [address] | | | | | | [phone] | | | | | | | | +--------+---------+ + + + | 06/30/ | Office | Cardiology | Smitha Griffin DO | | | 2019 | Visit | | [address] | | | | | | [place] | | | | | | [address] | | | | | | | [...] + | Malcom Mojica MD 02/26/2016 14:11 [facility] | | | Physician Group Musculoskeletal[facility] Sports [facility] Spine, Physiatry [place] | | | [facility] [address] [place] [address] Ph: | | | Test Date: 02/25/2016 | | | Patient Name: Scarlet Murguia : 1935 Physician: Tomás Mojica, | | | MR #: [id number] Sex: Female Referring Physician: [place] | | [...] | | | testing done by a hvac controls technician and she was diagnosed with a | [...] Malcom Mojica MD Diplomate, | | | [place] [employer] and [employer]. | [...] [address] | [place] | [phone] | | [facility] | | [address] | | | - LABORATORY | | [...] | | | | | [place], [place] | | | | | | [address] | | | | + + + [...] | [address] | [place] [address] | [phone] | + + + + + Protein [...] ELP Gamma | 9.7 | % | [facility] | | | Globulin % | | [...] MD02-27-16 | [facility] | |02-27-16 [facility] | | | - LABORATORY | + + + + + + + + | Performing | Address | City/State/Zipcode | Phone Number | | Organization | | | | + + + + + | [address] | [address] | [place] | [phone] | | [facility] | | [address] | | | - LABORATORY | | [...] [place] | | | | | | [address] | | | | + + + + + + + + | Specimen | + + | Blood specimen | | (specimen) | + + + + + + + | Performing | Address | City/State/Zipcode | Phone Number | | Organization | | | | + + + + + | [facility] | [address] | [place] [address] | [phone] | + + + + + Methylmalonic [...] [place] | | | | | | [address] | | | | + + + + + + + + | Specimen | + + | Blood specimen | | (specimen) | + + + + + + + | Performing | Address | City/State/Zipcode | Phone Number | | Organization | | | | + + + + + | [facility] | [address] | [place] [address] | [phone] | + + + + + Vitamin [...] [address] | [place] | [phone] | | [facility] | | [address] | | | - LABORATORY | | | | + + + + + documented in this encounter Visit Diagnoses + + | Diagnosis | + + | Peripheral polyneuropathy - Primary Unspecified hereditary and idiopathic peripheral | | neuropathy | + + | Hyper reflexia Abnormal reflex | + + documented in this encounter
--- OUTSIDE RECORDS SUMMARY | ~2019-05-05 | XMS | Encounter Summary ---
Demographics + + + | Address | [address] | | | [place] [address] | + + + | Home Phone [...] | Author | [facility] | | | and Khurramana | + + + | Organization | [facility] | | | and [...] Team Providers + +------+ + | Care Hot Header Operator Name | Role | Phone | [...] 2016 | | GASTROENTEROLOGY | [address], [place] | (Scheduled ERCP) | | | | [address] [place] | [address] [place], [place] | | | | | [address] [place], [place] | [address] | | | | | [address] | | | | | | [phone] | | | +--------+ + + + [...] | | | | | [place] [address] | | | | | | [phone] | | | | | | | | +--------+---------+ + + + | 06/30/ | Office | Cardiology | Smitha Griffin DO | | | 2019 | Visit | | [address] | | | | | | [place] | | | | | | [address] | | | | | | | | +--------+---------+ + + + documented as of this encounter Visit Diagnoses + + | Diagnosis | + + | Common bile duct stone - Primary Calculus of bile duct without mention of | | cholecystitis or obstruction | + + documented in this encounter"
--- OUTSIDE RECORDS SUMMARY | ~2019-05-05 | XMS | Encounter Summary ---
Demographics + + + | Address | [address] | | | [place] [address] | + + + | Home Phone | | + + + | Preferred Language | Unknown | + + + | Marital Status | | + + + | Worship Affiliation | Unknown | + + + [...] Providers + +------+ + | Care Manager Company Name | Role | Phone | + [...] [id number] | | | | | | [facility] | | | | | | and Healing, | | | | | | Building [address], [address]th | | | | | | Floor [place], [place] | | | | | | [address] | | | | | | [phone] | | | +--------+ + + + [...] | | | | | | skin, [id number]. The | | | | | | [...] [facility] | Mailcode [address], [address] | [place] [address] | | | DERMATOPATHOLOGY | [address] | | | + + + + + documented in this encounter Visit Diagnoses + + | Diagnosis | + + | Other melanin hyperpigmentation | + + documented in this encounter
--- OUTSIDE RECORDS SUMMARY | ~2019-05-05 | XMS | Encounter Summary ---
Demographics + + + | Address | [address] | | | [place] [address] | + + + | Home Phone [...] Author | [facility] | | | and Khurramana | + + + | Organization | [facility] | | | and [...] Team Providers + +------+ + | Care Fisher Trot Line Name | Role | Phone | + [...] | | | | | | | [place] ERCP DX | | | | | [...] + | 09/26/ | Anesthesia | [facility] | Enrique Llanos | | | 2016 | Event | MED CTR MP INTRA OP | MD Mc [address] | | | | | [address] | [facility] | | | | | [place] | [place] [address] | | | | | [address] | [phone] | | | | | [phone] | | | +--------+ + + + [...] [address] | | eral | Antecubital; oelr-sdu-rrhtgn | Patsy Dixon RN | Patsy Dixon [...] | | | | | [place] [address] | | | | | | [phone] | | | | | | | | +--------+---------+ + + + | 06/30/ | Office | Cardiology | Smitha Griffin DO | | | 2019 | Visit | | [address] | | | | | | [place] | | | | | | [address] | | | | | | | [...]
--- OUTSIDE RECORDS SUMMARY | ~2019-05-05 | XMS | Encounter Summary ---
Demographics + + + | Address | [address] | | | [place] [address] | + + + | Home Phone [...] | Author | [facility] | | | and Khurramana | + + + | Organization | [facility] | | [...] Providers + +------+ + | Care Mold Puller Name | Role | Phone | + +------+ + | Susan Leos | PCP | | | PA-C | | | + +------+ + Encounter Details +--------+ + + + + | Date | Type | Department | Care Team | Description | +--------+ + + + + | 03/21/ | Preadmit | [facility] | Mark Montana | | | 2019 | Visit | CENTER PREADMIT | MD Alaina [address] | | | | | CLINIC [address] | [place] | | | | | [place] | [place] [address] | | | | | [address] | [phone] | | | | | [phone] | | | +--------+ + + + [...] were given in the hospital. Wear them [id number] d ay for3 to 4weeks. To relieve discomfort at night, get up and move around. Tell all your healthcare providers including your dentist about your artificial join t before any procedure. You mayneed to take antibiotics before dental work and other medic al procedures to reduce the risk of infection. Arrangeto have your lobito removed [id number] after surgery. The lobito were u sed [...] ur hip joint. Use a raisedtoilet seat [id number] after surgery. Ask your healthcare provider if [...] put on socks and shoes. And don't apple picking supervisor items from the floor. Use a cane, [...] draining from the incision Date Last Reviewed: 10/13/201719991592-2041 [employer] [place] [address]. All righ ts reserved. This information is not intended as a substitute for professional medical care. Always follow your healthcare professional's instructions. Outpatient Medications Marked as Taking for the 03/21/19 encounter (Preadmit Visit) with [facility] ROOM 2 Medication Sig Instructions acetaminophen [...] day of proced ure Multiple Vitamins-Minerals ([facility]) MISC Take by mouth. DO NOT TAKE day of procedure Stanton-3 Fatty Acids (PRO NUTRIENTS OMEGA 3 PO) [...] 2018 | Visit | | MD Alaina [address] | | | | | | [place] | | | | | | [place] [address] | | | | | | [phone] | | | | | | | | +--------+---------+ + + + | 06/30/ | Office | Cardiology | Smitha Griffin DO | | | 2019 | Visit | | [address] | | | | | | [place] | | | | | | [address] | | | | | | | [...] | KR | | | Screen | [facility];[address] | | LABORATORY | | | | [address];[place] [address] | | | | + + + + + + + + | Specimen | + + | Blood | + + + + + + + | Performing | Address | City/State/Zipcode | Phone Number | | Organization | | | | + + + + + | [facility] | [address] | [place] [address] | [phone] | + + + + + MRSA [...] [facility] | | | | performed at [facility];[address] | | LABORATORY | | | | [address];[place] | | | | | | [address] | | | | + + + + + + + + | Specimen | + + | Tissue - Both | | anterior nares (body | | structure) | + + + + + + + | Performing | Address | City/State/Zipcode | Phone Number | | Organization | | | | + + + + + | [facility] | [address] | [place] [address] | [phone] | + + + + + Hemoglobin A1C (03/21/2019 3:33 PM PDT) + + + + + + | Component | Value | Ref Range | Performed | Pathologist | | | | | At | Signature | + + + + + + | Hemoglobin | 5.8Comment: HbA1c method | 4.0 - 6.0 % | [facility] | | | A1c | is certified [...] | 120Comment: Estimated | <154 mg/dL | [facility] | | | Average | Average Glucose | | LABORATORY | | | Glucose | calculated from | | | | | | hemoglobin A1c by use of | | | | | | the ADArecommended | | | | | | formula.Testing | | | | | | performed at [facility], [address] | | | | | | [facility] [address], | | | | | | [place] [address] | | | | + + + + + + + + | Specimen | + + | Blood | + + + + + + + | Performing | Address | City/State/Zipcode | Phone Number | | Organization | | | | + + + + + | [facility] | [address] | [place] [address] | [phone] | + + + + + CBC [...] | | | | | performed at [facility];[address] | | | | | | [address];[place] | | | | | | [address] | | | | + + + + + + + + | Specimen | + + | Blood | + + + + + + + | Performing | Address | City/State/Zipcode | Phone Number | | Organization | | | | + + + + + | [facility] | [address] | [place] [address] | [phone] | + + + + + Basic [...] | >60Comment: GFR <60: | >60 | [facility] | | | GFR | CHRONIC KIDNEY [...] | | | | | | MDRD [facility] traceable | | | | | | equation.Testing | | | | | | performed at [facility];[address] | | | | | | [facility];[place], [place] | | | | | | [address] | | | | + + + + + + + + | Specimen | + + | Blood | + + + + + + + | Performing | Address | City/State/Zipcode | Phone Number | | Organization | | | | + + + + + | [facility] | [address] | [place] [address] | [phone] | + + + + + ECG [...]
--- OUTSIDE RECORDS SUMMARY | ~2019-05-05 | XMS | Encounter Summary ---
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[place], [place]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 | | 2019 | | [address] | [phone] | | | | | [phone] | | | +--------+ + + + [...] Procedure: ERCP; Surgeon: Gregor Mccord MD; Location: [facility] MEDICAL PROCEDURE UNIT ERCP N/A 10/14/2016 Procedure: ERCP w/ stent pull; Surgeon: Gregor Mccord MD; Location: [facility] MEDICAL PROCEDU RE UNIT HARDWARE REMOVAL Left 03/29/2019 Procedure: REMOVE HARDWARE LOWER EXTREMITY-HIP; Surgeon: Mark Montana MD; Location : [facility] MAIN OR PARTIAL HYSTERECTOMY 1971 RECTOCELE REPAIR 1991 TAILBONE 1973 broken, partial removal TONSILLECTOMY 1938 TOTAL HIP ARTHROPLASTY Left 03/29/2019 Procedure: Posterior Total Hip Arthroplasty; Surgeon: Mark Montana MD; Location: [facility] MAIN OR Allergies Allergen [...] Code Follow up: Gus Orozco PA-C [address] [facility] [address] In 2 weeks Discharge Medications Changed Medications [...] | | | | | | | ([facility]) | | | | | | | MISC | | | | | | + + + +---------+ + + | Kingsley-3 Fatty | Take 1 tablet by | [...] might be different fr om the original. [facility] Progress Note Primary Care Physician: [...] | | | | | [place] [address] | | | | | | [phone] | | | | | | | | +--------+---------+ + + + | 06/30/ | Office | Cardiology | Smitha Griffin DO | | | 2019 | Visit | | [address] | | | | | | [place] | | | | | | [address] | | | | | | | [...] | | | POC | performed at [facility];[address] | | LABORATORY | | | | [address];[place], [place] | | | | | | [address] | | | | + + + + + + + + | Specimen | + + | | + + + + + + + | Performing | Address | City/State/Zipcode | Phone Number | | Organization | | | | + + + + + | [facility] | [address] | [place] [address] | [phone] | + + + + + POC [...] | | | POC | performed at [facility];[address] | | LABORATORY | | | | [address];[place] | | | | | | [address] | | | | + + + + + + + + | Specimen | + + | | + + + + + + + | Performing | Address | City/State/Zipcode | Phone Number | | Organization | | | | + + + + + | [facility] | [address] | [place] [address] | [phone] | + + + + + POC Glucose (03/30/2019 8:57 PM PDT) + + + + + + | Component | Value | Ref Range | Performed | Pathologist | | | | | At | Signature | + + + + + + | Glucose, | 98Comment: Testing | 65 - 99 mg/dL | [facility] | | | POC | performed at [facility];[address] | | LABORATORY | | | | [address];[place] | | | | | | [address] | | | | + + + + + + + + | Specimen | + + | | + + + + + + + | Performing | Address | City/State/Zipcode | Phone Number | | Organization | | | | + + + + + | [facility] | [address] | [place] [address] | [phone] | + + + + + Hemoglobin [...] [facility] | | | | performed at [facility];[address] | | LABORATORY | | | | [address];[place], [place] | | | | | | [address] | | | | + + + + + + + + | Specimen | + + | Blood | + + + + + + + | Performing | Address | City/State/Zipcode | Phone Number | | Organization | | | | + + + + + | [facility] | [address] | [place] [address] | [phone] | + + + + + POC [...] | | | POC | performed at [facility];[address] | | LABORATORY | | | | [address];[place] | | | | | | [address] | | | | + + + + + + + + | Specimen | + + | | + + + + + + + | Performing | Address | City/State/Zipcode | Phone Number | | Organization | | | | + + + + + | [facility] | [address] | [place] [address] | [phone] | + + + + + POC [...] | | | POC | performed at [facility];[address] | | LABORATORY | | | | [address];[place], [place] | | | | | | [address] | | | | + + + + + + + + | Specimen | + + | | + + + + + + + | Performing | Address | City/State/Zipcode | Phone Number | | Organization | | | | + + + + + | [facility] | [address] | [place] [address] | [phone] | + + + + + XR [...] | | | POC | performed at [facility];[address] | | LABORATORY | | | | [address];[place], [place] | | | | | | [address] | | | | + + + + + + + + | Specimen | + + | | + + + + + + + | Performing | Address | City/State/Zipcode | Phone Number | | Organization | | | | + + + + + | [facility] | [address] | [place] [address] | [phone] | + + + + + Type [...] + + + | [facility] | [id number] | | [facility] | | | | | | LABORATORY | | + + + + + + | [facility] | Testing performed at | | [facility] | | | | [facility];[address] | | LABORATORY | | | | [address];[place] [address] | | | | + + + + + + + + | Specimen | + + | Blood | + + + + + + + | Performing | Address | City/State/Zipcode | Phone Number | | Organization | | | | + + + + + | [facility] | [address] | [place] [address] | [phone] | + + + + + POC Glucose (03/29/2019 6:42 AM PDT) + + + + + + | Component | Value | Ref Range | Performed | Pathologist | | | | | At | Signature | + + + + + + | Glucose, | 96Comment: Testing | 65 - 99 mg/dL | [facility] | | | POC | performed at [facility];[address] | | LABORATORY | | | | [address];[place], [place] | | | | | | [address] | | | | + + + + + + + + | Specimen | + + | | + + + + + + + | Performing | Address | City/State/Zipcode | Phone Number | | Organization | | | | + + + + + | [facility] | [address] | [place] [address] | [phone] | + + + + + documented [...]
--- OUTSIDE RECORDS SUMMARY | ~2019-05-05 | XMS | Encounter Summary ---
Demographics + + + | Address | [address] | | | [place] [address] | + + + | Home Phone [...] | Author | [facility] | | | and Khurramana | + + + | Organization | [facility] [...] Team Providers + +------+ + | Care Internet Sales Manager Name | Role | Phone | [...] | | | | [address] [facility] | | | | | | [address] [place] | | | | | | [address] | | | | | | [phone] | | | +--------+ + + + [...] [place] | | | | | | [place] [address] | | | | | | [phone] | | | | | | | | +--------+---------+ + + + | 06/30/ | Office | Cardiology | Smitha Griffin DO | | | 2019 | Visit | | [address] | | | | | | [place] | | | | | | [address] | | | | | | | | +--------+---------+ + + + documented as of this encounter Visit Diagnoses Not on filedocumented in this encounter"
--- OUTSIDE RECORDS SUMMARY | ~2019-05-05 | XMS | Encounter Summary ---
Demographics + + + | Address | [address] | | | [place] [address] | + + + | Home Phone [...] Author | [facility] | | | and Khurramana | + + + | Organization | [facility] | | | [...] Providers + +------+ + | Care Laboratory Sampler Name | Role | Phone | + [...] [place] | | | | | [address] | [place] [address] | | | | | [phone] | [phone] | | | | | | | [...] | | | | | [place] [address] | | | | | | [phone] | | | | | | | | +--------+---------+ + + + | 06/30/ | Office | Cardiology | Smitha Griffin DO | | | 2019 | Visit | | [address] | | | | | | [place] | | | | | | [address] | | | | | | | | +--------+---------+ + + + documented as of this encounter Visit Diagnoses Not on filedocumented in this encounter"
--- OUTSIDE RECORDS SUMMARY | ~2019-05-05 | XMS | Encounter Summary ---
Demographics + + + | Address | [address] | | | [place] [address] | + + + | Home Phone [...] | Author | [facility] | | | and Khurramana | + + + | Organization | [facility] | | | [...] Providers + +------+ + | Care Photographic Process Attendant Name | Role | Phone | [...] 2017 | | GASTROENTEROLOGY | [address], [place] | stent pull) | | | | [address] [place] | [address] [place], [place] | | | | | [address] [place], [place] | [address] | | | | | [address] | | | | | | [phone] | | | +--------+ + + + [...] | | | | | [place] [address] | | | | | | [phone] | | | | | | | | +--------+---------+ + + + | 06/30/ | Office | Cardiology | Smitha Griffin DO | | | 2019 | Visit | | [address] | | | | | | [place] | | | | | | [address] | | | | | | | [...]
--- OUTSIDE RECORDS SUMMARY | ~2019-05-05 | XMS | Encounter Summary ---
Demographics + + + | Address | [address] | | | [place] [address] | + + + | Home Phone | | + + + | Preferred Language | Unknown | + + + | Marital Status | | + + + | Anabaptism Affiliation | Unknown | + + + [...] Team Providers + +------+ + | Care Airplane Rental Clerk Name | Role | Phone | [...] [id number] | | | | | | [facility] | | | | | | and Healing, | | | | | | Building [address]th | | | | | | Floor [place], [place] | | | | | | [address] | | | | | | [phone] | | | +--------+ + + + [...] ls | | | | | | Received:[id number] | | | | | | 360-16 [...] Materials | | | | | | Returned:[id number] | | | | | | 360-16 [...] [facility] | [address], [address] | [place] [address] | | | DERMATOPATHOLOGY | [address] | | | + + + + + documented in this encounter Visit Diagnoses Not on filedocumented in this encounter"
--- OUTSIDE RECORDS SUMMARY | ~2019-05-05 | XMS | Encounter Summary ---
Demographics + + + | Address | [address] | | | [place] [address] | + + + | Home Phone | | + + + | Preferred Language | Unknown | + + + | Marital Status | | + + + | Muslim Affiliation | 1077 | + + + | Race | Unknown | + + + | Ethnic Group | Unknown | + + + Author + + + | Author | [facility] | | | and Khurramana | + + + | Organization | [facility] | | | [...] Team Providers + +------+ + | Care Woodworker Name | Role | Phone | + [...] Surgery Appointment | | 2018 | | [place] [address] | [employer] | | | | | [place] | | | | | | [address] | | | | | | [phone] | | | +--------+ + + + [...] [place] | | | | | | [place] [address] | | | | | | [phone] | | | | | | | | +--------+---------+ + + + | 06/30/ | Office | Cardiology | Smitha Griffin DO | | | 2020 | Visit | | [address] | | | | | | [place] | | | | | | [address] | | | | | | | | +--------+---------+ + + + documented as of this encounter Visit Diagnoses Not on filedocumented in this encounter"
--- OUTSIDE RECORDS SUMMARY | ~2019-05-05 | XMS | Encounter Summary ---
Demographics + + + | Address | [address] | | | [place] [address] | + + + | Home Phone | | + + + | Preferred Language | Unknown | + + + | Marital Status | | + + + | Faith Affiliation | 1077 | + + + | Race | Unknown | + + + | Ethnic Group | Unknown | + + + Author + + + | Author | [facility] | | | and Khurramana | + + + | Organization | [facility] | | | and [...] Team Providers + +------+ + | Care Platform Loader Name | Role | Phone | + [...] + + | 03/29/ | Anesthesia | [facility] | Michela Eli | | | 2019 | Event | [facility] | MD Jena [address] | | | | | OPERATING RO[address] | [place], [place] | | | | | [facility] | [address] | | | | | [place], [place] | | | | | | [address] | | | | | | [phone] | | | +--------+ + + + [...] +----+---+ + + | | 0 | [place] | | | | 8 | 43-degrees [...] 03/30/19 0431 by | | eral | [id number] catheter system; | Paula Young RN | [...] | | | | | [place] [address] | | | | | | [phone] | | | | | | | | +--------+---------+ + + + | 06/30/ | Office | Cardiology | Smitha Griffin DO | | | 2019 | Visit | | [address] | | | | | | [place] | | | | | | [address] | | | | | | | [...]
--- OUTSIDE RECORDS SUMMARY | ~2019-05-05 | XMS | Encounter Summary ---
Demographics + + + | Address | [address] | | | [place] [address] | + + + | Home Phone [...] Author | [facility] | | | and Khurramana | + + + | Organization | [facility] | [...] Team Providers + +------+ + | Care Under Presser Name | Role | Phone | + [...] | | | | | | | OR ERCP DX | | | | | | | COLLECTION | | | | | | | SPECIMEN | | | | | | | BRUSHING/WAS | | | | | | | [place] | | | | | | | ANESTH,UGI | | | | | | | ENDOSCOPY | | | | | | | ERCP | | | +--------+--------+ + + + + Encounter Details +--------+ + + + + | Date | Type | Department | Care Team | Description | +--------+ + + + + | 05// | Hospital | [facility] | Gregor Mccord MD | | | 2017 | Encounter | MED CTR XRAY [address] | [address] | | | | | [place] | [address] [place], [place] | | | | | [place] [address] | [address] | | | | | [phone] | | | +--------+ + + + [...] | | | | | | | ([facility]) | | | | | | | MISC | | | | | | + + + +---------+ + + | Glen-3 Fatty | Take 1 tablet by | [...] | Visit | | MD Alaina [address] | | | | | | [place] | | | | | | [place] [address] | | | | | | [phone] | | | | | | | | +--------+---------+ + + + | 06/30/ | Office | Cardiology | Smitha Grififn DO | | | 2019 | Visit | | [address] | | | | | | [place] | | | | | | [id number] | | | | | | | [...]
--- OUTSIDE RECORDS SUMMARY | ~2019-05-05 | XMS | Encounter Summary ---
Demographics + + + | Address | [address] | | | [place] [address] | + + + | Home Phone [...] | [facility] | | | and Khurramana | + + + | Organization | [facility] | | | and [...] Providers + +------+ + | Care Clinical Psychologist Licensed Name | Role | Phone | + [...] | 11/03/ | Telephone | [facility] | Gregor Mccord MD | Other | | 2016 | | GASTROENTEROLOGY | [address], [place] | | | | | [address] [place] | [address] [place], [place] | | | | | [address] [place], [place] | [address] | | | | | [address] | | | | | | [phone] | | | +--------+ + + + [...] [place] | | | | | | [place] [address] | | | | | | [phone] | | | | | | | | +--------+---------+ + + + | 06/30/ | Office | Cardiology | Smitha Griffin DO | | | 2020 | Visit | | [address] | | | | | | [place] | | | | | | [address] | | | | | | | | +--------+---------+ + + + documented as of this encounter Visit Diagnoses Not on filedocumented in this encounter"
--- OUTSIDE RECORDS SUMMARY | ~2019-05-05 | XMS | Encounter Summary ---
Demographics + + + | Address | [address] | | | [place] [address] | + + + | Home Phone [...] + | Author | [facility] | | | and Khurramana | + + + | Organization | [facility] | | | and [...] Team Providers + +------+ + | Care Dehydrator Tender Name | Role | Phone | [...] 2017 | | GASTROENTEROLOGY | [address], [place] | MRCP Liver without | | | | [address] [place] | [address] [place] | contrast scheduled) | | | | [address] [place] | [address] | | | | | [address] | | | | | | [phone] | | | +--------+ + + + [...] | | | | | [place] [address] | | | | | | [phone] | | | | | | | | +--------+---------+ + + + | 06/30/ | Office | Cardiology | Smitha Griffin DO | | | 2019 | Visit | | [address] | | | | | | [place] | | | | | | [address] | | | | | | | | +--------+---------+ + + + documented as of this encounter Visit Diagnoses Not on filedocumented in this encounter"
--- OUTSIDE RECORDS SUMMARY | ~2019-05-05 | XMS | Encounter Summary ---
Demographics + + + | Address | [address] | | | [place] [address] | + + + | Home Phone | | + + + | Preferred Language | Unknown | + + + | Marital Status | | + + + | Alevism Affiliation | 1077 | + + + | Race | Unknown | + + + | Ethnic Group | Unknown | + + + Author + + + | Author | [facility] | | | and Khurramana | + + + | Organization | [facility] | | [...] Team Providers + +------+ + | Care Tank House Operator Helper Name | Role | Phone | [...] | | | | | | [place] | | | | | | | ANESTH,UGI | | | | | | | ENDOSCOPY | | | | | | | ERCP | | | +--------+--------+ + + + + Encounter Details +--------+ + + + + | Date | Type | Department | Care Team | Description | +--------+ + + + + | 10/14/ | Hospital | [facility] | Gregor Mccord MD | Choledocholithiasis | | 2017 | Encounter | MED CTR MP INTRA OP | [address], [place] | (Primary Dx) | | | | [address] | [address] [place], [place] | | | | | [place], [place] | [address] | | | | | [address] | | | | | | [phone] | | | +--------+ + + + [...] the test. This includes: All prescription medicines Fbkf-zze-dipqjmd medicines that don't need a prescription Any [...] infection or torn bowel. Date Last Reviewed: 12/01/201419999225-9917 [employer]. [address] [place] [address], [place] [address]. All righ ts reserved. This information is [...] You cannot be awakened Date Last Reviewed: 04/01/201619992416-1957 [employer]. [address] [place] [address]. All righ ts reserved. This information is [...] + + + +---------+ + + | [place]-3 Fatty | Take 1 tablet by | [...] [place] | | | | | | [place] [address] | | | | | | [phone] | | | | | | | | +--------+---------+ + + + | 06/30/ | Office | Cardiology | Smitha Griffin DO | | | 2019 | Visit | | [address] | | | | | | [place] | | | | | | [address] | | | | | | | [...] 10/14/2016 12:25 | PROVATION | | PMMRN: [id number] #: [id number] of : 1936Admit | | | Type: AmbulatoryAge: 80Room: [facility] 01Gender: FemaleNote Status: | | | FinalizedAttending MD: Gregor Mccord [facility] | | ERCPIndications: Biliary stent removalProviders: | | | Gregor Mccord MD, Jalyn Ring RN, Buhl | | | ROBI Tello, Harinder Mcgowan [...] the anesthesiologist and | | | the r and d lab technician in the endoscopy suite. 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 The esophagus was successfully intubated under [...] Scope In: 12:40:12 PMScope Out: 12:55:03 PM [place] | | | [facility], [address] [place] [address] | | | [phone] | | | - Continue present medications. [...] |Scope Out: 12:55:03 PM | | | [facility], [address] [place] | | | [address] | | + + -+ + +---------+ [...]
--- OUTSIDE RECORDS SUMMARY | ~2019-05-05 | XMS | Encounter Summary ---
Demographics + + + | Address | [address] | | | [place] [address] | + + + | Home Phone [...] + | Author | [facility] | | | and Khurramana | + + + | Organization | [facility] | | | and [place] [...] Providers + +------+ + | Care Software Verification Engineer Name | Role | Phone | + +------+ + | Susan Leos | PCP | | | PA-C | | | + +------+ + Encounter Details +--------+ + + + + | Date | Type | Department | Care Team | Description | +--------+ + + + + | 03/21/ | Preadmit | [facility] | [place] | | | 2019 | Visit | CENTER PREADMIT | MD Alaina [address] | | | | | CLINIC [address] | [place] | | | | | [place] | [place] [address] | | | | | [address] | [phone] | | | | | [phone] | | | +--------+ + + + [...] were given in the hospital. Wear them [id number] d ay for3 to 4weeks. To relieve discomfort at night, get up and move around. Tell all your healthcare providers including your dentist about your artificial join t before any procedure. You mayneed to take antibiotics before dental work and other medic al procedures to reduce the risk of infection. Arrangeto have your lobito removed ogbzuf7ksrgc after surgery. The lobito were u sed [...] ur hip joint. Use a raisedtoilet seat zzn6gjlfj after surgery. Ask your healthcare provider if [...] put on socks and shoes. And don't mixing picker tender items from the floor. Use a cane, [...] draining from the incision Date Last Reviewed: 10/13/201719999951-5261 [employer]. [address] [place] [address]. All righ ts reserved. This information is not intended as a substitute for professional medical care. Always follow your healthcare professional's instructions. Outpatient Medications Marked as Taking for the 03/21/19 encounter (Preadmit Visit) with [facility] ROOM 2 Medication Sig Instructions acetaminophen [...] TAKE day of proced ure Multiple Vitamins-Minerals ([facility]) MISC Take by mouth. DO NOT TAKE day of procedure [place]-3 Fatty Acids (PRO NUTRIENTS OMEGA 3 PO) [...] 2018 | Visit | | MD Alaina [address] | | | | | | [place] | | | | | | [place] [address] | | | | | | [phone] | | | | | | | | +--------+---------+ + + + | 06/30/ | Office | Cardiology | Smitha Griffin DO | | | 2019 | Visit | | [address] | | | | | | [place] | | | | | | [address] | | | | | | | [...] | [facility] | | | Screen | [facility];[address] | | LABORATORY | | | | [address];[place] [address] | | | | + + + + + + + + | Specimen | + + | Blood | + + + + + + + | Performing | Address | City/State/Zipcode | Phone Number | | Organization | | | | + + + + + | [facility] | [address] | [place] [address] | [phone] | + + + + + MRSA [...] [facility];[address] | | LABORATORY | | | | [address];[place] | | | | | | [address] | | | | + + + + + + + + | Specimen | + + | Tissue - Both | | anterior nares (body | | structure) | + + + + + + + | Performing | Address | City/State/Zipcode | Phone Number | | Organization | | | | + + + + + | [facility] | [address] | [place] [address] | [phone] | + + + + + Hemoglobin A1C (03/21/2019 3:33 PM PDT) + + + + + + | Component | Value | Ref Range | Performed | Pathologist | | | | | At | Signature | + + + + + + | Hemoglobin | 5.8Comment: HbA1c method | 4.0 - 6.0 % | [facility] | | | A1c | is certified by [facility] | | LABORATORY | | | [...] | 120Comment: Estimated | <154 mg/dL | [facility] | | | Average | Average Glucose | | LABORATORY | | | Glucose | calculated from | | | | | | hemoglobin A1c by use of | | | | | | the ADArecommended | | | | | | formula.Testing | | | | | | performed at [facility], [address] | | | | | | [place], | | | | | | [place] [address] | | | | + + + + + + + + | Specimen | + + | Blood | + + + + + + + | Performing | Address | City/State/Zipcode | Phone Number | | Organization | | | | + + + + + | [facility] | [address] | [place] [address] | [phone] | + + + + + CBC [...] [place];[address] | | | | | | [address];[place] | | | | | | [address] | | | | + + + + + + + + | Specimen | + + | Blood | + + + + + + + | Performing | Address | City/State/Zipcode | Phone Number | | Organization | | | | + + + + + | [facility] | [address] | [place] [address] | [phone] | + + + + + Basic [...] | >60Comment: GFR <60: | >60 | [facility] | | | GFR | [...] [place];[address] | | | | | | [facility];[place], [place] | | | | | | [address] | | | | + + + + + + + + | Specimen | + + | Blood | + + + + + + + | Performing | Address | City/State/Zipcode | Phone Number | | Organization | | | | + + + + + | [facility] | [address] | [place] [address] | [phone] | + + + + + ECG [...]
--- OUTSIDE RECORDS SUMMARY | ~2019-05-05 | XMS | Encounter Summary ---
Demographics + + + | Address | [address] | | | [place] [address] | + + + | Home Phone [...] | Author | [facility] | | | and Khurramana | + + + | Organization | [facility] [...] Team Providers + +------+ + | Care Nougat Cutter Machine Name | Role | Phone | + [...] 2017 | | GASTROENTEROLOGY | [address], [place] | | | | | [address] [place] | [address] [place], [place] | | | | | [address] [place], [place] | [address] | | | | | [address] | | | | | | [phone] | | | +--------+ + + + [...] [place] | | | | | | [place] [address] | | | | | | [phone] | | | | | | | | +--------+---------+ + + + | 06/30/ | Office | Cardiology | Smitha Griffin DO | | | 2019 | Visit | | [address] | | | | | | [place] | | | | | | [address] | | | | | | | | +--------+---------+ + + + documented as of this encounter Visit Diagnoses Not on filedocumented in this encounter"
--- OUTSIDE RECORDS SUMMARY | ~2019-05-05 | XMS | Encounter Summary ---
Demographics + + + | Address | [address] | | | [place] [address] | + + + | Home Phone [...] Author | [facility] | | | and Khurramana | + + + | Organization | [facility] | | | and [place] [...] Team Providers + +------+ + | Care Fisheries Inspector Name | Role | Phone | [...] | | | | | from | [address] | [address] | | | | | [place] at | [address] | [address] [place] | | | | | [facility] | [place], | [place], [place] | | | | | Procedures | [place] | [address] Phone: | | | | | NEW PATIENT | [address] | [phone] | | | | | | Phone: | Fax: | | | | | | [phone] | [phone] | | | | | | Fax: | | | | | | | [phone] | | + +--------+ + + + + Encounter Details +--------+---------+ + + + | Date | Type | Department | Care Team | Description | +--------+---------+ + + + | 09/30/ | Office | [facility] | [place] | 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[place], [place]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 (Primary | | | | [address] | [place] [address] | Dx) | | | | [phone] | [phone] | | | | | | | [...] Gregor Mccord MD; Location: [facility] MEDICAL PROCEDURE UNIT ERCP N/A 10/14/2016 Procedure: ERCP w/ stent pull; Surgeon: Gregor Mccord MD; Location: [facility] PROCEDU RE UNIT PARTIAL HYSTERECTOMY 1971 [...] mouth Daily., Disp: , Rfl: Multiple Vitamins-Minerals ([facility]) MISC, Take by mouth., Disp: , Rfl: [place]-3 Fatty Acids (PRO NUTRIENTS OMEGA 3 PO), [...] Request - OR/ENDO/ASC/OB: Posterior Total Hip Arthroplasty: [employer] The patient has posttraumatic left hip [...] [address] | | | | | | [place] [address] | | | | | | [phone] | | | | | | | | +--------+---------+ + + + | 06/30/ | Office | Cardiology | Smitha Griffin DO | | | 2019 | Visit | | [address] | | | | | | [place] | | | | | | [address] | | | | | | | [...]
--- OUTSIDE RECORDS SUMMARY | ~2019-05-05 | XMS | Encounter Summary ---
Demographics + + + | Address | [address] | | | [place] [address] | + + + | Home Phone [...] + + | Author | [facility] | | | and Khurramana | + + + | Organization | [facility] | | | [...] Team Providers + +------+ + | Care Bearing Press Machine Operator Name | Role | Phone [...] + + | 09/26/ | Hospital | [facility] | Gregor Mccord MD | | | 2017 | Encounter | MED CTR XRAY [address] | [address] [place] | | | | | [place] | [address] [place] | | | | | [place] [address] | [id number] | | | | | [phone] | | | +--------+ + + + [...] | | | | | | | ([facility]) | | | | | | | MISC | | | | | | + + + +---------+ + + | [place]-3 Fatty | Take 1 tablet by | [...] [place] | | | | | | [place] [address] | | | | | | [phone] | | | | | | | | +--------+---------+ + + + | 06/30/ | Office | Cardiology | Smitha Griffin DO | | | 2019 | Visit | | [address] | | | | | | [place] | | | | | | [address] | | | | | | | [...]
--- OUTSIDE RECORDS SUMMARY | ~2019-05-05 | XMS | Encounter Summary ---
Demographics + + + | Address | [address] | | | [place] [address] | + + + | Home Phone [...] | [facility] | | | and Khurramana | + + + | Organization | [facility] | | | [...] Team Providers + +------+ + | Care Vinyl Flooring Installer Name | Role | Phone | [...] + + | 09/26/ | Hospital | [facility] | Gregor Mccord MD | Choledocholithiasis | | 2017 | Encounter | MED CTR MP INTRA OP | [address] | (Primary Dx) | | | | [address] | [address] [place] | | | | | [place] | [address] | | | | | [address] | | | | | | [phone] | | | +--------+ + + + [...] or severe belly or abdominal pain Fever [id number] (37.7C) or chills Upset stomach (nausea) and vomiting Black or tarry stools Date Last Reviewed: 11/25/201419995913-1493 [employer]. [address] [place] [address], [place] [address]. All righ ts reserved. This information is [...] | | | | | | [facility]) | | | | | | | MISC | | | | | | + + + +---------+ + + | [place]-3 Fatty | Take 1 tablet by | [...] BLFUENTES | | | | | | [place] [address] | | | | | | [phone] | | | | | | | | +--------+---------+ + + + | 06/30/ | Office | Cardiology | Smitha Griffin DO | | | 2019 | Visit | | [address] | | | | | | [place] | | | | | | [address] | | | | | | | [...] | | | | VONDA SHEPPARD MD ([id number]) | | | | | | on [...] | [facility] | | GastroenterologyPatient Name: November West BloctonProcedure Date: 09/26/2016 | PROVATION | | 12:24 PMMRN: [id number] #: [id number] of : | | | 1935dmit Type: AmbulatoryAge: 80Room: [facility] 01Gender: FemaleNote | | | Status: FinalizedAttending MD: Gregor Mccord , MDProcedure: | | | ERCPIndications: Filling defect on intraoperative | | | cholangiogramProviders: Gregor Mccord MD, Jalyn Darden | | | ROBI Ring, Pablo Rothman CMA, | | | Laurie Hammond, Comic Writer, Paty Beverly | | | Michelle, Comic Writer, Enrique Llanos MD (Anesthesia | | | [...] | | | the anesthesiologist and the plasma processing technician in the endoscopy suite. | | [...] the procedure | | | well.Findings: A beauty artist film of the abdomen was obtained. | [...] [facility] | | | [place], [address] [place] [address] | | | - Continue present medications. [...] |Scope Out: 1:06:30 PM | | | [facility], [address] [place] [address] | | | [address] | | + + -+ + +---------+ [...] | | | | VONDA SHEPPARD MD ([id number]) | | | | | | on [...]
--- OUTSIDE RECORDS SUMMARY | ~2019-05-05 | XMS | Encounter Summary ---
Demographics + + + | Address | [address] | | | [place] [address] | + + + | Home Phone [...] [facility] | | | and Khurramana | + + + | Organization | [facility] | | [...] Team Providers + +------+ + | Care Miner Pick Name | Role | Phone | + [...] | | | | [address] [facility] | | | | | | [address] [place] | | | | | | [address] | | | | | | [phone] | | | +--------+ + + + [...] [place] | | | | | | [place] [address] | | | | | | [phone] | | | | | | | | +--------+---------+ + + + | 06/30/ | Office | Cardiology | Smitha Griffin DO | | | 2019 | Visit | | [address] | | | | | | [place] | | | | | | [address] | | | | | | | | +--------+---------+ + + + documented as of this encounter Visit Diagnoses Not on filedocumented in this encounter"
--- OUTSIDE RECORDS SUMMARY | ~2019-05-05 | XMS | Encounter Summary ---
Demographics + + + | Address | [address] | | | [place] [address] | + + + | Home Phone [...] Author | [facility] | | | and Khurramana | + + + | Organization | [facility] | | [...] Providers + +------+ + | Care Certified Pharmacy Tech Name | Role | Phone | [...] | | | | | | | [facility] ER[facility] DX | | | | | [...] + + | 09/26/ | Surgery | [facility] | Gregor Mccord MD | ERCP | | 2017 | | MED CTR MP INTRA OP | [address], [place] | | | | | [address] | [address] [place] | | | | | [place] | [address] | | | | | [address] | | | | | | [phone] | | | +--------+---------+ + + + [...] or severe belly or abdominal pain Fever [id number] (37.7C) or chills Upset stomach (nausea) and vomiting Black or tarry stools Date Last Reviewed: 11/25/201419993790-6878 [employer]. [address] [place] [address], [place] [address]. All righ ts reserved. This information is [...] | | | | | | ([facility]) | | | | | | | MISC | | | | | | + + + +---------+ + + | [place]-3 Fatty | Take 1 tablet by | [...] [address] | | | | | | [place] [address] | | | | | | [phone] | | | | | | | | +--------+---------+ + + + | 06/30/ | Office | Cardiology | Smitha Griffin DO | | | 2019 | Visit | | [address] | | | | | | [place] | | | | | | [address] | | | | | | | [...] | | | | VONDA SHEPPARD MD ([id number]) | | | | | | on [...] | [facility] | | GastroenterologyPatient Name: November ArmaghProcedure Date: 09/26/2016 | [facility]ATION | | 12:24 PMMRN: [id number] #: [id number] of : | | | 4Admit Type: AmbulatoryAge: 80Room: [facility] 01Gender: FemaleNote | | | Status: FinalizedAttending MD: Gregor Mccord , [facility]rocedure: | | | ERCPIndications: Filling defect on intraoperative | | | cholangiogramProviders: Gregor Mccord MD, Jalyn Darden | | | ROBI Ring, Pablo Rothman APRON TRIMMER, | | | Laurie Hammond, Sawmill Worker, Paty Beverly | | | Michelle, Sawmill Worker, Enrique Llanos MD (Anesthesia | | [...] | | | the anesthesiologist and the airframe technician in the endoscopy suite. | | [...] the procedure | | | well.Findings: A district scout executive film of the abdomen was obtained. | [...] | | 12:39:22 PMScope Out: 1:06:30 PM [facility] | | | [place], [address] [place] [address] | | | - Continue present medications. [...] |Scope Out: 1:06:30 PM | | | [facility], [address] [place] [address] | | | [address] | | + + -+ + +---------+ [...] | | | | VONDA SHEPPARD MD ([id number]) | | | | | | on [...]
--- OUTSIDE RECORDS SUMMARY | ~2019-05-05 | XMS | Encounter Summary ---
Demographics + + + | Address | [address] | | | [place] [address] | + + + | Home Phone [...] Author | [facility] | | | and Khurramana | + + + | Organization | [facility] | | | and [...] + +------+ + | Care Front End Mechanic Name | Role | Phone | [...] Surgery Appointment | | 2018 | | [place] [address] | Nuclear Plant Technical Advisor | | | | | [place] | | | | | | [address] | | | | | | [phone] | | | +--------+ + + + [...] [place] | | | | | | [place] [address] | | | | | | [phone] | | | | | | | | +--------+---------+ + + + | 06/30/ | Office | Cardiology | Smitha Griffin DO | | | 2020 | Visit | | [address] | | | | | | [place] | | | | | | [address] | | | | | | | | +--------+---------+ + + + documented as of this encounter Visit Diagnoses Not on filedocumented in this encounter"
--- OUTSIDE RECORDS SUMMARY | ~2019-05-05 | XMS | Encounter Summary ---
Demographics + + + | Address | [address] | | | [place] [address] | + + + | Home Phone [...] Author | [facility] | | | and Khurramana | + + + | Organization | [facility] | | | [...] Team Providers + +------+ + | Care Spinner Open End Name | Role | Phone | + [...] [place] | | | | | | [address] | | | | | | [phone] | | | +--------+ + + + [...] [place] | | | | | | [place] [address] | | | | | | [phone] | | | | | | | | +--------+---------+ + + + | 06/30/ | Office | Cardiology | Smitha Griffin DO | | | 2019 | Visit | | [address] | | | | | | [place] | | | | | | [address] | | | | | | | | +--------+---------+ + + + documented as of this encounter Visit Diagnoses + + | Diagnosis | + + | Other screening mammogram | + + documented in this encounter"
--- OUTSIDE RECORDS SUMMARY | ~2019-05-05 | XMS | Encounter Summary ---
Demographics + + + | Address | [address] | | | [place] [address] | + + + | Home Phone [...] | Author | [facility] | | | and Khurramana | + + + | Organization | [facility] | | [...] Team Providers + +------+ + | Care Peer Tutor Name | Role | Phone | + [...] | Gregor Brock MD | [address] | | | | | abnormality | [address] | [place], | | | | | Procedures | [place], [place] | [place] | | | | | MRI MRCP | [address] | [address] | | | | | Liver wo | [place] | Phone: | | | | | [place]rast [place] | [address] | [phone] | | | | | MRI, | Phone: | Fax: | | | | | ABDOMEN | [phone] | [phone] | | | | | (MRI) | Fax: | | | | | | | [phone] | | +--------+--------+ + + + + [...] 2016 | | GASTROENTEROLOGY | [address], [place] | | | | | [address] [place] | [address] [place] | | | | | [address] [place] | [address] | | | | | [address] | | | | | | [phone] | | | +--------+ + + + [...] [address] | | | | | | [place] [address] | | | | | | [phone] | | | | | | | | +--------+---------+ + + + | 06/30/ | Office | Cardiology | Smitha Griffin DO | | | 2019 | Visit | | [address] | | | | | | [place], [place] | | | | | | [address] | | | | | | | [...] JACEK | | 02/11/2016. PROTOCOL: Coronal T2 director of scout work, axial T2 director of scout work, coronal 3D | [facility] | | respiratory triggered, coronal [...] spine dated | | 02/11/2016.PROTOCOL: Coronal T2 director of scout work, axial T2 director of scout work, coronal 3D respiratory | | triggered,coronal T2 [...] A few more small subcentimeter | | E0yalwkqhbxus cyst are seen within the left kidney [...] [address] 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
--- OUTSIDE RECORDS SUMMARY | ~2019-05-05 | XMS | Encounter Summary ---
Demographics + + + | Address | [address] | | | [place] [address] | + + + | Home Phone [...] | [facility] | | | and Khurramana | + + + | Organization | [facility] | | | [...] Team Providers + +------+ + | Care Chef De Cuisine Name | Role | Phone | + [...] Post-op Question | | 2018 | | [place] [address] | MD Alaina [address] | | | | | [address] [place], [place] | [place]VD [place] | | | | | [address] | [place] [address] | | | | | [phone] | [phone] | | | | | | | [...] [address] | | | | | | [place] [address] | | | | | | [phone] | | | | | | | | +--------+---------+ + + + | 06/30/ | Office | Cardiology | Smitha Griffin DO | | | 2020 | Visit | | [address] | | | | | | [place] | | | | | | [address] | | | | | | | | +--------+---------+ + + + documented as of this encounter Visit Diagnoses Not on filedocumented in this encounter"
--- OUTSIDE RECORDS SUMMARY | ~2019-05-05 | XMS | Encounter Summary ---
Demographics + + + | Address | [address] | | | [place] [address] | + + + | Home Phone [...] Author | [facility] Neal | | | and Khurramana | + + + | Organization | [facility] Neal | | | [...] Providers + +------+ + | Care Mobile Equipment Servicer Name | Role | Phone | [...] + + | 03/29/ | Anesthesia | [facility] | Michela Eli | | | 2019 | Event | [facility] | MD Jena [address] | | | | | OPERATING ROOM [address] | [place], [place] | | | | | [facility] | [address] | | | | | [place], [place] | | | | | | [address] | | | | | | [phone] | | | +--------+ + + + [...] +----+---+ + + | | 0 | [place] | | | | 8 | 43-degrees [...] 03/30/19 0431 by | | eral | ncyx-vyj-xdggym catheter system; | Paula Young RN | [...] | | | | | [place] [address] | | | | | | [phone] | | | | | | | | +--------+---------+ + + + | 06/30/ | Office | Cardiology | Smitha Griffin DO | | | 2019 | Visit | | [address] | | | | | | [place] | | | | | | [address] | | | | | | | [...]
--- OUTSIDE RECORDS SUMMARY | ~2019-05-05 | XMS | Encounter Summary ---
Demographics + + + | Address | [address] | | | [place] [address] | + + + | Home Phone [...] | Author | [facility] Neal | | | and Khurramana | + + + | Organization | [facility] Neal | [...] Team Providers + +------+ + | Care Preschool Adviser Name | Role | Phone | + [...] | | | | [address] [facility] | | | | | | [address] [place] | | | | | | [address] | | | | | | [phone] | | | +--------+ + + + [...] | | | | | [place] [address] | | | | | | [phone] | | | | | | | | +--------+---------+ + + + | 06/30/ | Office | Cardiology | Smitha Griffin DO | | | 2019 | Visit | | [address] | | | | | | [place] | | | | | | [address] | | | | | | | | +--------+---------+ + + + documented as of this encounter Visit Diagnoses Not on filedocumented in this encounter"
--- OUTSIDE RECORDS SUMMARY | ~2019-05-05 | XMS | Encounter Summary ---
Demographics + + + | Address | [address] | | | [place] [address] | + + + | Home Phone [...] | Author | [facility] Neal | | | and Khurramana | + + + | Organization | [facility] [...] Team Providers + +------+ + | Care Bakery Supervisor Name | Role | Phone | [...] [place] | | | | | [address] | [place] [address] | | | | | [phone] | [phone] | | | | | | | [...] | | | | | [place] [address] | | | | | | [phone] | | | | | | | | +--------+---------+ + + + | 06/30/ | Office | Cardiology | Smitha Griffin DO | | | 2019 | Visit | | [address] | | | | | | [place] | | | | | | [address] | | | | | | | | +--------+---------+ + + + documented as of this encounter Visit Diagnoses Not on filedocumented in this encounter"
--- OUTSIDE RECORDS SUMMARY | ~2019-05-05 | XMS | Encounter Summary ---
Demographics + + + | Address | [address] | | | [place] [address] | + + + | Home Phone [...] Author | [facility] Neal | | | and Khurramana | + + + | Organization | [facility] Neal [...] Providers + +------+ + | Care Assistant To The Vice President Name | Role | Phone | + [...] 2017 | | GASTROENTEROLOGY | [address] [place], [place] | MRCP Liver without | | | | [address] [place] | [address] [place] | contrast scheduled) | | | | [address] [place] [address] | [address] | | | | | [address] | | | | | | [phone] | | | +--------+ + + + [...] | | | | | [place] [address] | | | | | | [phone] | | | | | | | | +--------+---------+ + + + | 06/30/ | Office | Cardiology | Smitha Griffin DO | | | 2019 | Visit | | [address] | | | | | | [place] | | | | | | [address] | | | | | | | | +--------+---------+ + + + documented as of this encounter Visit Diagnoses Not on filedocumented in this encounter"
--- OUTSIDE RECORDS SUMMARY | ~2019-05-05 | XMS | Encounter Summary ---
Demographics + + + | Address | [address] | | | [place] [address] | + + + | Home Phone [...] | Author | [facility] Neal | | | and Khurramana | + + + | Organization | [facility] Neal | | | and [...] + +------+ + | Care Membership Sales Manager Name | Role | Phone [...] + + | 05// | Hospital | [facility] | Gregor Mccord MD | | | 2017 | Encounter | MED CTR XRAY [address] | [address] | | | | | [place] | [address] [place], [place] | | | | | [place] [address] | [address] | | | | | [phone] | | | +--------+ + + + [...] | | | | | | | ([facility]) | | | | | | | MISC | | | | | | + + + +---------+ + + | [place]-3 Fatty | Take 1 tablet by | [...] | | | | | [place] [address] | | | | | | [phone] | | | | | | | | +--------+---------+ + + + | 06/30/ | Office | Cardiology | Smitha Griffin DO | | | 2019 | Visit | | [address] | | | | | | [place] | | | | | | [id number] | | | | | | | [...]
--- OUTSIDE RECORDS SUMMARY | ~2019-05-05 | XMS | Encounter Summary ---
Demographics + + + | Address | [address] | | | [place] [address] | + + + | Home Phone [...] Author | [facility] Neal | | | and Khurramana | + + + | Organization | [facility] Neal | | | and [place] [...] Team Providers + +------+ + | Care Parquet Floor Layer Name | Role | Phone | + [...] | Gregor Brock MD | [address] [place] | | | | | abnormality | [address] | [place], | | | | | Procedures | [place], [place] | [place] | | | | | MRI MRCP | [address] | [address] | | | | | Liver wo | [place], [place] | Phone: | | | | | Contrast [place] | [address] | [phone] | | | | | MRI, | Phone: | Fax: | | | | | ABDOMEN | [phone] | [phone] | | | | | (MRI) | Fax: | | | | | | | [phone] | | +--------+--------+ + + + + [...] | Gregor Brock MD | [address] [place] | | | | | abnormality | [address] | [place], | | | | | Procedures | [place], [place] | [place] | | | | | MRI MRCP | [address] | [address] | | | | | Liver wo | [place], [place] | Phone: | | | | | [place]rast [place] | [address] | [phone] | | | | | MRI, | Phone: | Fax: | | | | | ABDOMEN | [phone] | [phone] | | | | | (MRI) | Fax: | | | | | | | [phone] | | +--------+--------+ + + + + Encounter Details +--------+ + + + + | Date | Type | Department | Care Team | Description | +--------+ + + + + | 10/30/ | Hospital | [facility] | Gregor cMcord MD | Bile duct | | 2017 | Encounter | MED CTR MRI [address] | [address] [place], [place] | abnormality | | | | [place], | [address] [place] | | | | | [place] [address] | [address] | | | | | [phone] | | | +--------+ + + + [...] + + + +---------+ + + | [place]-3 Fatty | Take 1 tablet by | [...] [place] | | | | | | [facility] [address] | | | | | | [phone] | | | | | | | | +--------+---------+ + + + | 06/30/ | Office | Cardiology | Smitha Griffin DO | | | 2019 | Visit | | [address] | | | | | | [place] | | | | | | [address] [...] JACEK | | 02/11/2016. PROTOCOL: Coronal T2 reed cleaner, axial T2 reed cleaner, coronal 3D | [facility] | | respiratory triggered, coronal T2 [...] spine dated | | 02/11/2016.PROTOCOL: Coronal T2 reed cleaner, axial T2 reed cleaner, coronal 3D respiratory | | triggered,coronal T2 [...] A few more small subcentimeter | | O0rccbjytxnrf cyst are seen within the left kidney [...] [address] 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
--- OUTSIDE RECORDS SUMMARY | ~2019-05-05 | XMS | Encounter Summary ---
Demographics + + + | Address | [address] | | | [place] [address] | + + + | Home Phone [...] | [facility] Neal | | | and Khurramana | + + + | Organization | [facility] Neal [...] Providers + +------+ + | Care Computer Specialist Name | Role | Phone | [...] | | | | | [address] [facility] | | | | | | [address] [place] | | | | | | [address] | | | | | | [phone] | | | +--------+ + + + [...] 2018 | Visit | | MD [address] | | | | | | [place] | | | | | | [place] [address] | | | | | | [phone] | | | | | | | | +--------+---------+ + + + | 06/30/ | Office | Cardiology | Smitha Griffin DO | | | 2019 | Visit | | [address] | | | | | | [place] | | | | | | [address] | | | | | | | | +--------+---------+ + + + documented as of this encounter Visit Diagnoses Not on filedocumented in this encounter"
--- OUTSIDE RECORDS SUMMARY | ~2019-05-05 | XMS | Encounter Summary ---
Demographics + + + | Address | [address] | | | [place] [address] | + + + | Home Phone [...] | Author | [facility] Neal | | | and Khurramana | + + + | Organization | [facility] Neal | [...] Team Providers + +------+ + | Care Transportation Sales Consultant Name | Role | Phone [...] | MD Malcom | [address] [place] | | | | | reflexia | [address] | [place] | | | | | Abnormal | [place] | [place] | | | | | gait | [address] | [address] | | | | | Procedures | [place] | Phone: | | | | | MRI Cervical | [address] | [phone] | | | | | Spine wo | Phone: | Fax: | | | | | Contrast | [phone] | [phone] | | | | | | Fax: | | | | | | | [phone] | | +--------+--------+ + + + + [...] | (Primary Dx); | | | | [place], | [address] [address] | Abnormal gait | | | | [place] [address] | [address] | | | | | [phone] | | | +--------+ + + + [...] | | | | | [place] [address] | | | | | | [phone] | | | | | | | | +--------+---------+ + + + | 06/30/ | Office | Cardiology | Smitha Griffin DO | | | 2019 | Visit | | [address] | | | | | | [place] | | | | | | [address] | | | | | | | [...]
--- OUTSIDE RECORDS SUMMARY | ~2019-05-05 | XMS | Encounter Summary ---
Demographics + + + | Address | [address] | | | [place] [address] | + + + | Home Phone [...] | Author | [facility] Neal | | | and Khurramana | + + + | Organization | [facility] Neal | [...] Team Providers + +------+ + | Care Laminate Floor Installer Name | Role | Phone | + +------+ + | Susan Leos | PCP | | | PA-C | | | + +------+ + Encounter Details +--------+ + + + + | Date | Type | Department | Care Team | Description | +--------+ + + + + | 03/14/ | [facility] | [facility] | [place] | Left hip pain | | 2018 | Encounter | [address] | MD [address] | | | | | [address] | [place] | | | | | [place] | [place] [address] | | | | | [address] | [phone] | | | | | [phone] | | | +--------+ + + + [...] | | | | | | | ([facility]) | | | | | | | MISC | | | | | | + + + +---------+ + + | [place]-3 Fatty | Take 1 tablet by | [...] | | | | | [place] [address] | | | | | | [phone] | | | | | | | | +--------+---------+ + + + | 06/30/ | Office | Cardiology | Smitha Griffin DO | | | 2019 | Visit | | [address] | | | | | | [place] | | | | | | [address] | | | | | | | [...]
--- OUTSIDE RECORDS SUMMARY | ~2019-05-05 | XMS | Encounter Summary ---
Demographics + + + | Address | [address] | | | [place] [address] | + + + | Home Phone [...] | Author | [facility] Neal | | | and Khurramana | + + + | Organization | [facility] Neal | [...] Team Providers + +------+ + | Care Client Reporting Associate Name | Role | Phone | [...] | | | | | | | CT ERCP DX | | | | | [...] + + | 09/26/ | Surgery | [facility] | Gregor Mccord MD | ERCP | | 2017 | | MED CTR MP INTRA OP | [address] [place], [place] | | | | | [address] | [address] | | | | | [place] | [address] | | | | | [address] | | | | | | [phone] | | | +--------+---------+ + + + [...] or severe belly or abdominal pain Fever glwnk414B (37.7C) or chills Upset stomach (nausea) and vomiting Black or tarry stools Date Last Reviewed: 11/25/201419993649-3978 [employer]. [address] [place] [address], [place] [address]. All righ ts reserved. This information is [...] | | | | | | ([facility]) | | | | | | | MISC | | | | | | + + + +---------+ + + | [place]-3 Fatty | Take 1 tablet by | [...] [place] | | | | | | [place] [address] | | | | | | [phone] | | | | | | | | +--------+---------+ + + + | 06/30/ | Office | Cardiology | Smitha Griffin DO | | | 2019 | Visit | | [address] | | | | | | [place] | | | | | | [address] | | | | | | | [...] | | | | VONDA SHEPPARD MD ([id number]) | | | | | | on [...] | [facility] | | GastroenterologyPatient Name: November York HarborProcedure Date: 09/26/2016 | PROVATION | | 12:24 PMMRN: [id number] #: [id number] of : | | | 4Admit Type: AmbulatoryAge: 80Room: [facility] 01Gender: FemaleNote | | | Status: FinalizedAttending MD: Gregor Mccord , [facility]cedure: | | | ERCPIndications: Filling defect on intraoperative | | | cholangiogramProviders: Gregor Mccord MD, Jalyn Darden | | | ROBI Ring, Pablo Rothman BASEBALL PLAYER, | | | Laurie Hammond, Coremaking Supervisor, Paty Beverly | | | Michelle, Coremaking Supervisor, Enrique Llanos MD (Anesthesia | | | [...] | | | the anesthesiologist and the electrical controls technician in the endoscopy suite. | | [...] the procedure | | | well.Findings: A dining manager film of the abdomen was obtained. | [...] | | 12:39:22 PMScope Out: 1:06:30 PM [facility] | | | [place], [address] [place] [address] | | | - Continue present medications. [...] |Scope Out: 1:06:30 PM | | | [facility], [address] [place] [address] | | | [address] | | + + -+ + +---------+ [...] | | | | VONDA SHEPPARD MD ([id number]) | | | | | | on [...]
--- OUTSIDE RECORDS SUMMARY | ~2019-05-05 | XMS | Encounter Summary ---
Demographics + + + | Address | [address] | | | [place] [address] | + + + | Home Phone [...] | Author | [facility] Neal | | | and Khurramana | + + + | Organization | [facility] Neal | | | and [place] [...] Providers + +------+ + | Care Market Risk Analyst Name | Role | Phone | [...] | | | | | from | [address] | [address] | | | | | [place] at | [address] | [address] [place] [address] | | | | | [facility] | [place], | [place], [place] | | | | | Procedures | [place] | [address] Phone: | | | | | NEW PATIENT | [address] | [phone] | | | | | | Phone: | Fax: | | | | | | [phone] | [phone] | | | | | | Fax: | | | | | | | [phone] | | + +--------+ + + + + Encounter Details +--------+---------+ + + + | Date | Type | Department | Care Team | Description | +--------+---------+ + + + | 09/30/ | Office | [facility] | [place] | 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 MEDICAL PROCEDURE UNIT ERCP N/A 10/14/2016 Procedure: ERCP w/ stent pull; Surgeon: Gregor Mccord MD; Location: [facility] MEDICAL PROCEDU RE UNIT PARTIAL HYSTERECTOMY [...] Disp: , Rfl: Multiple Vitamins-Minerals ([facility]) MISC, Take by mouth., Disp: , Rfl: [place]-3 Fatty Acids (PRO NUTRIENTS OMEGA 3 PO), [...] Request - OR/ENDO/ASC/OB: Posterior Total Hip Arthroplasty: [employer] The patient has posttraumatic left hip [...] [place] | | | | | | [place] [address] | | | | | | [phone] | | | | | | | | +--------+---------+ + + + | 06/30/ | Office | Cardiology | Smitha Griffin DO | | | 2019 | Visit | | [address] | | | | | | [place] | | | | | | [id number] | | | | | | | [...]
--- OUTSIDE RECORDS SUMMARY | ~2019-05-05 | XMS | Encounter Summary ---
Demographics + + + | Address | [address] | | | [place] [address] | + + + | Home Phone [...] Author | [facility] Neal | | | and Khurramana | + + + | Organization | [facility] Neal | [...] Team Providers + +------+ + | Care Hotel Valet Attendant Name | Role | Phone | [...] | Gregor Brock MD | [address] [place] | | | | | abnormality | [address] | [place], | | | | | Procedures | [place], [place] | [place] | | | | | MRI MRCP | [address] | [address] | | | | | Liver wo | [place] | Phone: | | | | | Contrast [place] | [address] | [phone] | | | | | MRI, | Phone: | Fax: | | | | | ABDOMEN | [phone] | [phone] | | | | | (MRI) | Fax: | | | | | | | [phone] | | +--------+--------+ + + + + [...] 2016 | | GASTROENTEROLOGY | [address] [place], [place] | | | | | [address] [place] | [address] [place] [place] | | | | | [address] [place] [address] | [address] | | | | | [address] | | | | | | [phone] | | | +--------+ + + + [...] [place] | | | | | | [place] [address] | | | | | | [phone] | | | | | | | | +--------+---------+ + + + | 06/30/ | Office | Cardiology | Smitha Griffin DO | | | 2019 | Visit | | [address] | | | | | | [place], [place] | | | | | | [address] | | | | | | | [...] | | 02/11/2016. PROTOCOL: Coronal T2 director workers compensation, axial T2 director workers compensation, coronal 3D | [facility] | | respiratory triggered, coronal [...] dated | | 02/11/2016.PROTOCOL: Coronal T2 director workers compensation, axial T2 director workers compensation, coronal 3D respiratory | | triggered,coronal T2 [...] A few more small subcentimeter | | N3ndqeubgxenu cyst are seen within the left kidney [...] [address] 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
--- OUTSIDE RECORDS SUMMARY | ~2019-05-05 | XMS | Encounter Summary ---
Demographics + + + | Address | [address] | | | [place] [address] | + + + | Home Phone | | + + + | Preferred Language | Unknown | + + + | Marital Status | | + + + | Jewish Affiliation | Unknown | + + + | Race | White | + + + | Ethnic Group | Not or | + + + Author + + + | Author | [facility] | + + + | Organization | [facility] | + + + | Address | Unknown | + + + | Phone | Unavailable | + + + Support + + + + + | Name | Relationship | Address | Phone | + + + + + | Chrissie Leos | DIRK | [place] | | + + + + + Care Team Providers + +------+ + | Care Promotions Assistant Sales Marketing Name | Role | Phone | + [...] [address] | | | | | | [place], [place] | | | | | | [address] | | | +--------+ + + + [...]
--- OUTSIDE RECORDS SUMMARY | ~2019-05-05 | XMS | Encounter Summary ---
Demographics + + + | Address | [address] | | | [place] [address] | + + + | Home Phone [...] | Author | [facility] Neal | | | and Khurramana | + + + | Organization | [facility] Neal | [...] Team Providers + +------+ + | Care Toll Line Mechanic Name | Role | Phone | [...] | disc disease), | | | | [place], | [address] [place], | lumbar; | | | | [place] [address] | [place] [address] | Spondylolisthesis at | | | | [phone] | [phone] | L4-L5 level; | | | | [...] [place] | | | | | | [place] [address] | | | | | | [phone] | | | | | | | | +--------+---------+ + + + | 06/30/ | Office | Cardiology | Smitha GriffinDO | | | 2019 | Visit | | [address] | | | | | | [place] | | | | | | [address] | | | | | | | [...]
--- OUTSIDE RECORDS SUMMARY | ~2019-05-05 | XMS | Encounter Summary ---
Demographics + + + | Address | [address] | | | [place] [address] | + + + | Home Phone [...] Author | [facility] Neal | | | and Khurramana | + + + | Organization | [facility] Neal | [...] Team Providers + +------+ + | Care Molding Utility Worker Name | Role | Phone | [...] | | | | | (degenerativ | [address] | | | | | | e disc | Phone: | | | | | | disease), | [phone] | | | | | | lumbar | Fax: | | | | | | Bilateral | [phone] | | | | | | lumbar [...] [place], | | | | | [place] [address] | [place] [address] | | | | | [phone] | [phone] | | | | | | | [...] [place] | | | | | | [place] [address] | | | | | | [phone] | | | | | | | | +--------+---------+ + + + | 06/30/ | Office | Cardiology | Smitha Griffin DO | | | 2020 | Visit | | [address] | | | | | | [place] | | | | | | [address] | | | | | | | [...] +--------+ + + | AMB REFERRAL TO [facility] | Outpatient | Routin | Spondylolisthesis [...]
--- OUTSIDE RECORDS SUMMARY | ~2019-05-05 | XMS | Encounter Summary ---
Demographics + + + | Address | [address] | | | [place] [address] | + + + | Home Phone [...] Team Providers + +------+ + | Care Name | Role | Phone | + +------+ + PCP | Unavailable | + +------+ + Encounter Details +--------+ + + + + | Date | Type | Department | Care Team | Description | +--------+ + + + + | 03/20/ | Transcribed | Allergy Clinic at | Dictation, Other | Transcribed | | 1996 | | [facility] [address] | | | | | | [address] | | | | | | Mailcode: [id number] [address] | | | | | | [address] | | | | | | [place], | | | | | | [place] [address] | | | | | | [phone] | | | +--------+ + + + [...] as of this encounter Progress Notes Interface, Bench Assembler In - 07/30/2006 1:06 AM PST [address] [address] or March 20, 1997 AKIRA LEOS MD [facility] [address] [place] [address] RE:Scarlet Murguai MR#:[id number] Leos: We saw Mrs. Scarlet Murguia for a rheumatology consultation at [facility] on March 20, 1997. The patient was [...] se, as manifested by pain at rest, bilingual spanish inbound sales stiffness for greater than an hour or [...] you for your referral to the [facility] Rheumatology Clinic. Sincerely, Damaso Franks M.D. Resident, Internal Medicine TERRY/artemio cc: Samia Montano M.D. Mortgage Professional, Medicine Rheumatology and Arthritis documented in this encounter Plan of Treatment Not on filedocumented as of this encounter Visit Diagnoses Not on filedocumented in this encounter
--- OUTSIDE RECORDS SUMMARY | ~2019-05-05 | XMS | Encounter Summary ---
Demographics + + + | Address | [address] | | | [place] [address] | + + + | Home Phone [...] Author | [facility] | | | and Khurramana | + + + | Organization | [facility] | | | and [place] | [...] Team Providers + +------+ + | Care Parole Or Probation Officer Name | Role | Phone | [...] | Gregor Brock MD | [address] | | | | | abnormality | [address] | [place], | | | | | Procedures | [place], [place] | [place] | | | | | MRI MRCP | [address] | [address] | | | | | Liver wo | [place], [place] | Phone: | | | | | Contrast [place] | [address] | [phone] | | | | | MRI, | Phone: | Fax: | | | | | ABDOMEN | [phone] | [phone] | | | | | (MRI) | Fax: | | | | | | | [phone] | | +--------+--------+ + + + + [...] | Gregor Brock MD | [address] | | | | | abnormality | [address] | [place], | | | | | Procedures | [place], [place] | [place] | | | | | MRI MRCP | [address] | [address] | | | | | Liver wo | [place], [place] | Phone: | | | | | Contrast [place] | [address] | [phone] | | | | | MRI, | Phone: | Fax: | | | | | ABDOMEN | [phone] | [phone] | | | | | (MRI) | Fax: | | | | | | | [phone] | | +--------+--------+ + + + + Encounter Details +--------+ + + + + | Date | Type | Department | Care Team | Description | +--------+ + + + + | 10/30/ | Hospital | [facility] | Gregor Mccord MD | Bile duct | | 2017 | Encounter | MED CTR MRI [address] | [address], [place] | abnormality | | | | [place], | [address] [place] | | | | | [place] [address] | [address] | | | | | [phone] | | | +--------+ + + + [...] | | | | | | | ([facility]) | | | | | | | MISC | | | | | | + + + +---------+ + + | Eden-3 Fatty | Take 1 tablet by | [...] [place] | | | | | | [facility]NOTE 3[facility] [address] | | | | | | [phone] | | | | | | | | +--------+---------+ + + + | 06/30/ | Office | Cardiology | Smitha Griffin DO | | | 2019 | Visit | | [address] | | | | | | [place] | | | | | | [address] | | | | | | | [...] JACEK | | 02/11/2016. PROTOCOL: Coronal T2 applications sales representative, axial T2 applications sales representative, coronal 3D | [facility] | | respiratory triggered, coronal T2 [...] spine dated | | 02/11/2016.PROTOCOL: Coronal T2 applications sales representative, axial T2 applications sales representative, coronal 3D respiratory | | triggered,coronal [...] A few more small subcentimeter | | R3uptuudejfen cyst are seen within the left kidney [...] [address] | [place] | [phone] | | 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
--- OUTSIDE RECORDS SUMMARY | ~2019-05-05 | XMS | Encounter Summary ---
Demographics + + + | Address | [address] | | | [place] [address] | + + + | Home Phone [...] + | Author | [facility] | | | and Khurramana | + + + | Organization | [facility] | [...] Team Providers + +------+ + | Care Shingles Roofer Name | Role | Phone | + [...] [place] | | | | | | [address] | | | | | | [phone] | | | +--------+ + + + [...] [place] | | | | | | [place] [address] | | | | | | [phone] | | | | | | | | +--------+---------+ + + + | 06/30/ | Office | Cardiology | Smitha Griffin DO | | | 2019 | Visit | | [address] | | | | | | [place] | | | | | | [address] | | | | | | | | +--------+---------+ + + + documented as of this encounter Visit Diagnoses + + | Diagnosis | + + | Other screening mammogram | + + documented in this encounter"
--- OUTSIDE RECORDS SUMMARY | ~2019-05-05 | XMS | Encounter Summary ---
Demographics + + + | Address | [address] | | | [place] [address] | + + + | Home Phone [...] Author | [facility] | | | and Khurramana | + + + | Organization | [facility] [...] Providers + +------+ + | Care Supervisor Printing Shop Name | Role | Phone | + [...] [place] | | | | | | [address] | | | | | | [phone] | | | +--------+ + + + [...] [place] | | | | | | [place] [address] | | | | | | [phone] | | | | | | | | +--------+---------+ + + + | 06/30/ | Office | Cardiology | Smitha Griffin DO | | | 2019 | Visit | | [address] | | | | | | [place] | | | | | | [address] | | | | | | | | +--------+---------+ + + + documented as of this encounter Visit Diagnoses + + | Diagnosis | + + | Other screening mammogram | + + documented in this encounter"
--- OUTSIDE RECORDS SUMMARY | ~2019-05-05 | XMS | Encounter Summary ---
Demographics + + + | Address | [address] | | | [place] [address] | + + + | Home Phone [...] Team Providers + +------+ + | Care Molybdenum Steamer Operator Name | Role | Phone | [...] [address] | | | | | | [facility] | | | | | | and Healing, | | | | | | Building [address], [address]th | | | | | | Floor [place], [place] | | | | | | [address] | | | | | | [phone] | | | +--------+ + + + [...] | | | | | | skin, [id number]. The | | | | | | [...] [facility] | [address], [address] | [place] [address] | | | DERMATOPATHOLOGY | [address] | | | + + + + + documented in this encounter Visit Diagnoses + + | Diagnosis | + + | Other melanin hyperpigmentation | + + documented in this encounter
--- OUTSIDE RECORDS SUMMARY | ~2019-05-05 | XMS | Encounter Summary ---
Demographics + + + | Address | [address] | | | [place] [address] | + + + | Home Phone [...] | Author | [facility] | | | and Khurramana | + + + | Organization | [facility] | | [...] Team Providers + +------+ + | Care Felt Cutter Name | Role | Phone | [...] [address] | | | | | [place], | [place], | | | | | [place] [address] | [place] [address] | | | | | [phone] | [phone] | | | | | | | [...] [place] | | | | | | [place] [address] | | | | | | [phone] | | | | | | | | +--------+---------+ + + + | 06/30/ | Office | Cardiology | Smitha Griffin DO | | | 2019 | Visit | | [address] | | | | | | [place] | | | | | | [address] | | | | | | | | +--------+---------+ + + + documented as of this encounter Visit Diagnoses Not on filedocumented in this encounter"
--- OUTSIDE RECORDS SUMMARY | ~2019-05-05 | XMS | Encounter Summary ---
Demographics + + + | Address | [address] | | | [place] [address] | + + + | Home Phone [...] | Author | [facility] | | | and Khurramana | + + + | Organization | [facility] | | | and [...] Team Providers + +------+ + | Care Fish Roe Technician Name | Role | Phone | [...] | | | | | | | MS ERCP DX | | | | | [...] | 09/26/ | Hospital | [facility] | Gregor Mccord MD | | | 2017 | Encounter | MED CTR XRAY [address] | [address] [place] | | | | | [place] | [address] [place] [address] | | | | | [place] [address] | [id number] | | | | | [phone] | | | +--------+ + + + [...] + + + +---------+ + + | [place]-3 Fatty | Take 1 tablet by | [...] [place] | | | | | | [place] [address] | | | | | | [phone] | | | | | | | | +--------+---------+ + + + | 06/30/ | Office | Cardiology | Smitha Griffin DO | | | 2019 | Visit | | [address] | | | | | | [place] | | | | | | [address] | | | | | | | [...]
--- OUTSIDE RECORDS SUMMARY | ~2019-05-05 | XMS | Encounter Summary ---
Demographics + + + | Address | [address] | | | [place] [address] | + + + | Home Phone [...] | Author | [facility] | | | and Khurramana | + + + | Organization | [facility] | | [...] Team Providers + +------+ + | Care Cardiovascular Sonographer Name | Role | Phone | + [...] | | Physical | Diagnoses | | [place], | | | | Medicine and | Disturbance | Ray, | MD Malcom | | | | Rehabilitatio | of skin | [place], | [address] | | | | n | sensation | PA-C [address] | [address] | | | | | Procedures | [address] | [place] | | | | | [place] MOTOR | [place] | [address] Phone: | | | | | &/SENS 1-2 | [address] | [phone] | | | | | NRV CNDJ | Phone: | Fax: | | | | | PRECONF | [phone] | [phone] | | | | | ELTRODE LIMB | Fax: | | | | | | CA NEEDLE | [phone] | | | | | | EMG EA | | | | | | | EXTREMITY | | | | | | | W/PARASPINL | | | | | | | AREA LIMITED | | | | | | | CA EMG, | | | | | | | NEEDLE, TWO | | | | | | | LIMBS CA | | | | | | | MOTOR &/SENS | | | | | | | 3-4 NRV | | | | | | | CNDJ PRECONF | | | | | | | ELTRODE | | | | | | | LIMB CA | | | | | | | MOTOR &/SENS | | | | | | | 5-6 NRV | | | | | | | CNDJ PRECONF | | | | | | | ELTRODE | | | | | | | LIMB CA | | | | | | | NEEDLE EMG | | | | | | | EA EXTREMTY | | | | | | | W/PARASPINL | | | | | | | AREA | | | | | | | COMPLETE CA | | | | | | [...] | polyneuropathy (HCC) | | | | [place], | [address] [place] | (Primary Dx); Hyper | | | | [place] [address] | [id number] | reflexia | | | | [phone] | | | +--------+ + + + [...] | | | | | [place] [address] | | | | | | [phone] | | | | | | | | +--------+---------+ + + + | 06/30/ | Office | Cardiology | Smitha Griffin DO | | | 2019 | Visit | | [address] | | | | | | [place] | | | | | | [address] | | | | | | | [...] + | Malcom Mojica MD 02/26/2016 14:11 [facility] | | | Physician Group Musculoskeletal, Sports and Spine, Physiatry [place] | | | Medical Complex [address] [place] [address] Ph: | | | Test Date: 02/25/2016 | | | Patient Name: Scarlet Murguia : 1935 Physician: Tomás Mojica, | | | MR #: [id number] Sex: Female Referring Physician: [place] | | [...] | | | testing done by a remotely piloted vehicle controller and she was diagnosed with a | [...] Malcom Mojica MD Diplomate, | | | [place] [employer]. | [...] [address] | [place] | [phone] | | [facility] | | [address] | | | - LABORATORY | | [...] | | | | | [place], [place] | | | | | | [address] | | | | + + + [...] | [address] | [place] [address] | [phone] | + + + + + Protein [...] ELP Gamma | 9.7 | % | [facility] | | | Globulin % | | [...] [address] | [place] | [phone] | | [facility] | | [address] | | | - LABORATORY | | [...] [place] | | | | | | [address] | | | | + + + + + + + + | Specimen | + + | Blood specimen | | (specimen) | + + + + + + + | Performing | Address | City/State/Zipcode | Phone Number | | Organization | | | | + + + + + | [facility] | [address] | [place] [address] | [phone] | + + + + + Methylmalonic [...] [place] | | | | | | [address] | | | | + + + + + + + + | Specimen | + + | Blood specimen | | (specimen) | + + + + + + + | Performing | Address | City/State/Zipcode | Phone Number | | Organization | | | | + + + + + | [facility] | [address] | [place] [address] | [phone] | + + + + + Vitamin [...] [address] | [place] | [phone] | | [facility] | | [address] | | | - LABORATORY | | | | + + + + + documented in this encounter Visit Diagnoses + + | Diagnosis | + + | Peripheral polyneuropathy - Primary Unspecified hereditary and idiopathic peripheral | | neuropathy | + + | Hyper reflexia Abnormal reflex | + + documented in this encounter
--- OUTSIDE RECORDS SUMMARY | ~2019-05-05 | XMS | Encounter Summary ---
Demographics + + + | Address | [address] | | | [place] [address] | + + + | Home Phone [...] | Author | [facility] | | | and Khurramana | + + + | Organization | [facility] | | [...] Providers + +------+ + | Care Senior Data Scientist Name | Role | Phone | [...] | 11/03/ | Telephone | [facility] | Gregor Mccord MD | Other | | 2016 | | GASTROENTEROLOGY | [address] [place], [place] | | | | | [address] [place] | [address] [place], [place] | | | | | [address] [place], [place] | [address] | | | | | [address] | | | | | | [phone] | | | +--------+ + + + [...] [place] | | | | | | [place] [address] | | | | | | [phone] | | | | | | | | +--------+---------+ + + + | 06/30/ | Office | Cardiology | Smitha Griffin DO | | | 2020 | Visit | | [address] | | | | | | [place] | | | | | | [address] | | | | | | | | +--------+---------+ + + + documented as of this encounter Visit Diagnoses Not on filedocumented in this encounter"
--- OUTSIDE RECORDS SUMMARY | ~2019-05-05 | XMS | Encounter Summary ---
Demographics + + + | Address | [address] | | | [place] [address] | + + + | Home Phone [...] | Author | [facility] | | | and Khurramana | + + + | Organization | [facility] | | [...] Team Providers + +------+ + | Care Relations Specialist Name | Role | Phone | [...] | | [address] [place], | [place], | | | | | [place] [address] | [place] [address] | | | | | [phone] | [phone] | | | | | | | [...] [place] | | | | | | [place] [address] | | | | | | [phone] | | | | | | | | +--------+---------+ + + + | 06/30/ | Office | Cardiology | Smitha Griffin DO | | | 2019 | Visit | | [address] | | | | | | [place] | | | | | | [address] | | | | | | | | +--------+---------+ + + + documented as of this encounter Visit Diagnoses Not on filedocumented in this encounter"
--- OUTSIDE RECORDS SUMMARY | ~2019-05-05 | XMS | Encounter Summary ---
Demographics + + + | Address | [address] | | | [place] [address] | + + + | Home Phone [...] | Author | [facility] Neal | | | and Khurramana | + + + | Organization | [facility] [...] Team Providers + +------+ + | Care Concrete Gun Operator Name | Role | Phone | + +------+ + | Susan Leos | PCP | | | PA-C | | | + +------+ + Encounter Details +--------+ + + + + | Date | Type | Department | Care Team | Description | +--------+ + + + + | 02/28/ | Hospital | [facility] | Malcom Mojica | Peripheral | | 2016 | Encounter | MED CTR LABORATORY | MD Desi SMITH | polyneuropathy (HCC) | | | | [address] [place] | [address] [place] | (Primary Dx) | | | | [place] | [address] | | | | | [address] | | | | | | [phone] | | | +--------+ + + + [...] | + + + +---------+--------+ + | [place]-3 Fatty | Take 1 tablet by | [...] | | | | | [place] [address] | | | | | | [phone] | | | | | | | | +--------+---------+ + + + | 06/30/ | Office | Cardiology | Smitha Griffin DO | | | 2019 | Visit | | [address] | | | | | | [place] | | | | | | [address] | | | | | | | [...] | | | | | | [facility]. [facility] | | | | | | [...] [place] | | | | | | [address] | | | | + + + [...] [address] | [place] [address] | [phone] | + + + + + Vitamin [...] Vitamin | | | | | | [id number].This test | | | | | | [...] [place] | | | | | | [address] | | | | + + + [...] [address] | [place] [address] | [phone] | + + + + + documented in this encounter Visit Diagnoses + + | Diagnosis | + + | Peripheral polyneuropathy - Primary Unspecified hereditary and idiopathic peripheral | | neuropathy | + + documented in this encounter"
--- OUTSIDE RECORDS SUMMARY | ~2019-05-05 | XMS | Encounter Summary ---
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 at | Phone: | Phone: | | | | | L4-L5 level | [phone] | [phone] | | | | | Bilateral | Fax: | Fax: | | | | | lumbar | [phone] | [phone] | | | | | radiculopath | [...] | n | al disc | PA-C [address] | | | | | displacement | [address] | [place], [place] | | | | | , lumbar | Ave | [address] Phone: | | | | | region | [place], | [phone] | | | | | | [place] | Fax: | | | | | | [address] | [phone] | | | | | | Phone: | | | | | | | [phone] | | | | | | | Fax: | | | | | | | [phone] | | +--------+--------+ + + + + Encounter Details +--------+---------+ + + + | Date | Type | Department | Care Team | Description | +--------+---------+ + + + | 02/03/ | Office | [facility] | Ray, | 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 laboratory immunologist risk can lead to osteoporosis which is [...] 1 tablet by mouth Daily. Multiple Vitamins-Minerals ([facility]) MISC Take by mouth. Freeborn-3 Fatty Acids (PRO NUTRIENTS OMEGA 3 PO) [...] no apparent deficits with short or rn examiner memory. 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 I would like to get those records. [...] | | | | | [place] [address] | | | | | | [phone] | | | | | | | | +--------+---------+ + + + | 06/30/ | Office | Cardiology | Smitha Griffin DO | | | 2019 | Visit | | [address] | | | | | | [place] | | | | | | [address] | | | | | | | [...]
--- OUTSIDE RECORDS SUMMARY | ~2019-05-05 | XMS | Encounter Summary ---
Demographics + + + | Address | [address] | | | [place] [address] | + + + | Home Phone [...] Author | [facility] | | | and Khurramana | + + + | Organization | [facility] | | | and [place] [...] Providers + +------+ + | Care Manager Pest Name | Role | Phone | + +------+ + | Susan Leos | PCP | | | PA-C | | | + +------+ + Encounter Details +--------+ + + + + | Date | Type | Department | Care Team | Description | +--------+ + + + + | 02/24/ | Hospital | [facility] | Malcom Mojica | Peripheral | | 2016 | Encounter | MED CTR LABORATORY | MD Desi SMITH | polyneuropathy (HCC) | | | | [address] [place] | [address] [place] | | | | | [place] | [address] | | | | | [address] | | | | | | [phone] | | | +--------+ + + + [...] | | | | ([facility]) | | | | | | | MISC | | | | | | + + + +---------+--------+ + | [place]ott-3 Fatty | Take 1 tablet by | [...] | | | | | [place] [address] | | | | | | [phone] | | | | | | | [...] ST. | [address] | [place], [place] | [phone] | | [facility] | | [address] | | | - LABORATORY | | [...] [place] | | | | | | [address] | | | | + + + [...] | [address] | [place] [address] | [phone] | + + + + + Protein [...] [id number] | [facility] | |02-27-16 | [facility] | | | - LABORATORY | + + + + + + + + | Performing | Address | City/State/Zipcode | Phone Number | | Organization | | | | + + + + + | [facility] | [address] | [place] | [phone] | | [facility] | | [address] | | | - LABORATORY | | [...] [place] | | | | | | [address] | | | | + + + [...] [address] | [place] [address] | [phone] | + + + + + Methylmalonic [...] [facility] | | | | [address], [place] | | | | | | [address] | | | | + + + + + + + + | Specimen | + + | Blood specimen | | (specimen) | + + + + + + + | Performing | Address | City/State/Zipcode | Phone Number | | Organization | | | | + + + + + | [facility] | [address] | [place] [address] | [phone] | + + + + + Vitamin [...] FERRER. | [address] | [place] | [phone] | | [facility] | | [address] | | | - LABORATORY | | | | + + + + + documented in this encounter Visit Diagnoses + + | Diagnosis | + + | Peripheral polyneuropathy Unspecified hereditary and idiopathic peripheral neuropathy | + + documented in this encounter"
--- OUTSIDE RECORDS SUMMARY | ~2019-05-05 | XMS | Encounter Summary ---
Demographics + + + | Address | [address] | | | [place] [address] | + + + | Home Phone | | + + + | Preferred Language | Unknown | + + + | Marital Status | | + + + | Adventism Affiliation | Unknown | + + + [...] Team Providers + +------+ + | Care Sugar Boiler Name | Role | Phone | + [...] Clinic Dermatology | | | | | [facility] | [address] [facility] | | | | | and Healing, | [place] | | | | | [facility] | [address] | | | | | Floor [place], [place] | | | | | | [address] | | | | | | [phone] | | | +--------+ + + + [...] | OLOGY | | | | Case: [id number] | | | | | | | [...] | [facility] | [address] | [place] [address] | | | DERMATOPATHOLOGY | [address] | | | + + + + + documented in this encounter Visit Diagnoses + + | Diagnosis | + + | Neoplasm of uncertain behavior of skin | + + documented in this encounter
--- OUTSIDE RECORDS SUMMARY | ~2019-05-05 | XMS | Encounter Summary ---
Demographics + + + | Address | [address] | | | [place] [address] | + + + | Home Phone [...] Author | [facility] Neal | | | and Khurramana | + + + | Organization | [facility] Neal [...] Providers + +------+ + | Care Industrial Education Instructor Name | Role | Phone | [...] + + | 04/07/ | Office | [facility] | Malcom Mojica, | [place] | | 2016 | Visit | PHYSIATRY [address] | [address] | (Primary Dx) | | | | [place], | [address] [place] | | | | | [place] [address] | [address] | | | | | [phone] | | | +--------+---------+ + + + [...] Medicine Consult Note Malcom Mojica MD [address] [facility], [address] [place] [address] FAX: CHIEF COMPLAINT: Chief Complaint [...] 1 tablet by mouth Daily. Multiple Vitamins-Minerals ([facility]) MISC Take by mouth. L[place]-3 Fatty Acids (PRO NUTRIENTS OMEGA 3 PO) [...] ankles Coordination: There is no dysmetria on hmmfko-na-wkqc and ddfg-czjl-mrhu. There Romberg is mildly positiv e with [...] think that any further work-up would change control manager at this time. Her primary symptoms is [...] | | | | | [place] [address] | | | | | | [phone] | | | | | | | | +--------+---------+ + + + | 06/30/ | Office | Cardiology | Smitha Griffin DO | | | 2019 | Visit | | [address] | | | | | | [place] | | | | | | [address] | | | | | | | | +--------+---------+ + + + documented as of this encounter Visit Diagnoses + + | Diagnosis | + + | Hyper reflexia - Primary Abnormal reflex | + + documented in this encounter
--- OUTSIDE RECORDS SUMMARY | ~2019-05-05 | XMS | Encounter Summary ---
Demographics + + + | Address | [address] | | | [place] [address] | + + + | Home Phone [...] Team Providers + +------+ + | Care Sustainability Officer Name | Role | Phone | + +------+ + PCP | Unavailable | + +------+ + Encounter Details +--------+ + + + + | Date | Type | Department | Care Team | Description | +--------+ + + + + | 03/20/ | Transcribed | Allergy Clinic at | Dictation, Other | Transcribed | | 1996 | | [facility] [address] | | | | | | [address] | | | | | | Mailcode: [id number] | | | | | | [address] | | | | | | [place], | | | | | | [place] [address] | | | | | | [phone] | | | +--------+ + + + [...] as of this encounter Progress Notes Interface, Employment Officer In - 07/30/2006 1:06 AM PST [address] [address] or March 20, 1997 AKIRA LEOS MD [facility] [address] [place] [address] RE:Scarlet Murguia MR#:[id number] Leos: We saw Mrs. Scarlet Murguia for a rheumatology consultation at [facility] on March 20, 1997. The [...] se, as manifested by pain at rest, placement manager stiffness for greater than an hour [...] you for your referral to the [facility]. Sincerely, Damaso Franks M.D. Resident, Internal Medicine TERRY/artemio cc: Samia Montano M.D. Wad Blanking Press Adjuster, Medicine Rheumatology and Arthritis documented in this encounter Plan of Treatment Not on filedocumented as of this encounter Visit Diagnoses Not on filedocumented in this encounter
[~2019-05-05 13:21] MED LIST changes: +CEFUROXIME250 MG PO
--- OUTSIDE RECORDS SUMMARY | 2019-05-05 13:24 | XMS ---
PreManage Notification: JUANITA Security Biological Scientist Events No recent Security Events currently on file CRITERIA MET - [facility] - Has Care Guidelines - [facility] - 2 Visits in 30 Days CARE PROVIDERS ASHLEIGH GIRALDO Physician Nutrition And Dietetics Instructor 03/01/2018-Current PHONE: [phone] Ashleigh Zamora Primary Care Current [facility] PHONE: Unknown NAHUM PIMENTEL Primary Care 01/13/2014-Current PHONE: Unknown Guidelines Source: 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 TOTAL 5 NOTE: Visits indicate total known visits. ED/UCC VISIT TRACKING (12 MO.) 05/05/2019 13:21 [facility] TYPE: Emergency COMPLAINT: - FALL 05/02/2019 10:22 [facility] TYPE: Emergency COMPLAINT: - FELL LAST NIGHT INJURED NECK AND HEAD DIAGNOSES: - Urinary tract infection, site not specified - Other fpc (current) drug therapy - Allergy status to other antibiotic agents status - Allergy status to penicillin - Strain of muscle, fascia and tendon at neck level, init - Essential (primary) hypertension - Fall on same level, unspecified, initial encounter - Hypothyroidism, unspecified - 1 Type 2 diabetes mellitus with diabetic neuropathy, unsp - Allergy status to oth drug/meds/biol subst status - Allergy status to sulfonamides status 04/06/2019 11:57 [facility] TYPE: Emergency COMPLAINT: - LEFT KNEE PAIN 04/01/2019 23:24 [facility] TYPE: Emergency COMPLAINT: - ALTERED MENTAL STATUS DIAGNOSES: - 1 Type 2 diabetes mellitus with diabetic neuropathy, unsp - Allergy status to penicillin - Allergy status to sulfonamides status - Hypothyroidism, unspecified - Allergy status to oth drug/meds/biol subst status - Other fpc (current) drug therapy - Personal history of other malignant neoplasm of skin - Altered mental status, unspecified - Allergy status to other antibiotic agents status 03/23/2019 20:56 [facility] TYPE: Emergency COMPLAINT: - HIGH BLOOD PRESSURE DIAGNOSES: - Allergy status to penicillin - Allergy status to sulfonamides status - Other fpc (current) drug therapy - Hypothyroidism, unspecified - Allergy status to other antibiotic agents status - Essential (primary) hypertension - long term (current) use of aspirin - Personal history of malignant melanoma of skin - Elevated blood-pressure reading, w/o diagnosis of htn - 1 Type 2 diabetes mellitus with diabetic neuropathy, unsp INPATIENT VISIT TRACKING (12 MO.) 04/11/2019 09:40 [facility] TYPE: Medical Surgical COMPLAINT: - BILATERAL PE'S DIAGNOSES: - Hypothyroidism, unspecified - Essential (primary) hypertension - Allergy status to other antibiotic agents status - snf (current) use of opiate analgesic - Allergy status to oth drug/meds/biol subst status - Anemia, unspecified - Nonrheumatic aortic (valve) stenosis - Allergy status to penicillin - Other intervertebral disc degeneration, lumbar region - Allergy status to sulfonamides status - Other fpc (current) drug therapy - Hypothyroidism, unspecified - Allergy status to sulfonamides status - Gastro-esophageal reflux disease without esophagitis - long term (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 - long term (current) use of opiate analgesic - Other intervertebral disc degeneration, lumbar region - Allergy status to other antibiotic agents status - Essential (primary) hypertension - Spondylolisthesis, lumbar region - Other pulmonary embolism without acute cor pulmonale - Stress incontinence (female) (male) - Fx unsp part of nk of l femr, subs for clos fx w routn heal - Allergy status to penicillin - Other fpc (current) drug therapy - 1 Type 2 diabetes mellitus with diabetic polyneuropathy - long term (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 - Spondylolisthesis, lumbar region - Other specified postprocedural states - Stress incontinence (female) (male) - Gastro-esophageal reflux disease without esophagitis - Allergy status to oth drug/meds/biol subst status - Nonrheumatic aortic (valve) stenosis - Anemia, unspecified - 1 Type 2 diabetes mellitus with diabetic polyneuropathy - Fx unsp part of nk of l femr, subs for clos fx w routn heal - Other specified postprocedural states 04/06/2019 17:03 [facility] TYPE: Medical Surgical COMPLAINT: - BILAT PE'S DIAGNOSES: - Other pulmonary embolism without acute cor pulmonale - Allergy status to oth drug/meds/biol subst status - 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 - Spondylolisthesis, lumbar region - Hypo-osmolality and hyponatremia - 1 Type 2 diabetes mellitus with diabetic polyneuropathy - Hypo-osmolality and hyponatremia - Gastro-esophageal reflux disease without esophagitis - Nonrheumatic aortic (valve) stenosis - Gastro-esophageal reflux disease without esophagitis - Other intervertebral disc degeneration, lumbar region - Anemia, unspecified - 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
== END 2019-05-05 15:51 | disposition home or self-care (01) ==
LOC: ED 13:21
DX: S16.1XXA Strain of muscle, fascia and tendon at neck level, initial encounter (principal); S40.012A Contusion of left shoulder, initial encounter; S40.011A Contusion of right shoulder, initial encounter; S70.02XA Contusion of left hip, initial encounter; E11.40 Type 2 diabetes mellitus with diabetic neuropathy, unspecified; E78.00 Pure hypercholesterolemia, unspecified; E03.9 Hypothyroidism, unspecified; Z85.828 Personal history of other malignant neoplasm of skin; Z88.0 Allergy status to penicillin; Z88.2 Allergy status to sulfonamides; Z88.1 Allergy status to other antibiotic agents; Z88.8 Allergy status to other drugs, medicaments and biological substances; Z79.899 Other long term (current) drug therapy; Z79.01 Long term (current) use of anticoagulants; W18.39XA Other fall on same level, initial encounter
CPT/HCPCS: 72125; 73030; 73502; 99284-25

== ENCOUNTER 2019-05-11 16:17 | Emergency (ER) | payer MEDICARE, MEDICAID ==
[~2019-05-11] VITALS: Ht 167.6 cm; Wt 72.6 kg
--- OUTSIDE RECORDS SUMMARY | ~2019-05-11 | XMS | Encounter Summary ---
Demographics + + + | Address | [address] | | | [place] [address] | + + + | Home Phone | | + + + | Preferred Language | Unknown | + + + | Marital Status | | + + + | Spiritism Affiliation | 1077 | + + + | Race | Unknown | + + + | Ethnic Group | Unknown | + + + Author + + + | Author | [facility] | | | and Khurramana | + + + | Organization | [facility] | | | and [...] Team Providers + +------+ + | Care Golf Course Patroller Name | Role | Phone | + +------+ + | Susan Leos | PCP | | | PA-C | | | + +------+ + Reason for Visit Auth/Cert +--------+--------+ + + + + | Status | Reason | Specialty | Diagnoses / | Referred By | Referred To | | | | | Procedures | Contact | Contact | +--------+--------+ + + + + | | | | Diagnoses | | | | | | | Common | | | | | | | bile duct | | | | | | | stone | | | | | | | (K80.50) | | | | | | | Procedures | | | | | | | FL ERCP DX | | | | | | | COLLECTION | | | | | | | SPECIMEN | | | | | | | BRUSHING/WAS | | | | | | | [place]LANDO ERCP | | | +--------+--------+ + + + + Encounter Details +--------+---------+ + + + | Date | Type | Department | Care Team | Description | +--------+---------+ + + + | 09/26/ | Surgery | [facility] | Gregor Mccord MD | ERCP | | 2017 | | MED CTR [facility] | [address], [place] | | | | | [address] | [address] [place] [address] | | | | | [place] | [address] | | | | | [address] | | | | | | [phone] | | | +--------+---------+ + + + Social History + +-------+ [...] | 0 Standard drinks | 0.0 | once every 2 months | | | or equivalent | | [...] + + documented as of this encounter Last Filed Vital Signs + + + + + | Vital Sign | Reading | Time Taken | Comments | + + + + + | Blood Pressure | 189/68 | 09/26/2016 3:00 PM | | | | | PDT | | + + + + + | Pulse | 56 | 09/26/2016 3:00 PM | | | | | PDT | | + + + + + | Temperature | 37 C (98.6 F) | 09/26/2016 1:13 PM | | | | | PDT | | + + + + + | Respiratory Rate | 18 | 09/26/2016 1:46 PM | | | | | PDT | | + + + + + | Oxygen Saturation | 99% | 09/26/2016 3:00 PM | | | | | PDT | | + + + + + | Inhaled Oxygen | - | - | | | Concentration | | | | + + + + + | Weight | 69.3 kg (152 lb 11.2 | 09/26/2016 10:49 AM | | | | oz) | PDT | | + + + + + | Height | 170.2 cm (5' 7") | 09/26/2016 10:49 AM | | | | | PDT | | + + + + + | Body Mass Index | 23.92 | 09/26/2016 10:49 AM | | | | | PDT | | + + + + + documented in this encounter Discharge Instructions Instructions Taya Carlos RN - 09/26/2016 Discharge Instructions for ERCP (Endoscopic Retrograde Cholangiopancreatography) You had a procedure known as an ERCP. Your healthcare provider performed the ERCP to look a t your bile or pancreatic ducts, and to locate and treat blockages in the ducts. This proced ure is used to diagnose diseases of the pancreas, bile ducts, and pancreatic duct, liver, an d gallbladder. Here s what you need to do followingyour ERCP. Home care Don t take aspirin or any other blood-thinning medicines (anticoagulants) until your herlinda silvestre says it s OK. Your provider may prescribe an antibiotic, depending on what was done during the ERCP. You mayhave a sore throat for1 to 2 days after the procedure. Use lozenges or gargle with salt water for your sore throat. If you're not better in a few days, call your provide r. Rest, drink fluids, and eat light meals. If you feel bloated or have too much gas, use a heating pad on your belly to help reduce the discomfort. This should help you feel better. Butif it doesn't, call your provider. Don t drink alcohol for2 days after the procedure. Follow-up care Make a follow-up appointment as directed by our staff. When to seek medical care Call your provider right away if you have any of the following: Trouble swallowing or throat pain that gets worse Chest pain or severe belly or abdominal pain Fever [id number] (37.7C) or chills Upset stomach (nausea) and vomiting Black or tarry stools Date Last Reviewed: 11/25/201419998250-2689 [employer]. [address] [place] [address], [place] [address]. All righ ts reserved. This information is not intended as a substitute for professional medical care. Always follow your healthcare professional's instructions. documented in this encounter Medications at Time of Discharge + + + +---------+ + + | Medication | Sig | Dispensed | Refills | Start | End Date | | | | | | Date | | + + + +---------+ + + | atenolol | Take 25 mg by mouth | | 0 | | | | (TENORMIN) 25 mg | Daily. | | | | | | tablet | | | | | | + + + +---------+ + + | Calcium | Take 1 tablet by | | 0 | | | | Carb-Cholecalciferol | mouth 2 times daily. | | | | | | (CALCIUM 500 + D3 | | | | | | | PO) | | | | | | + + + +---------+ + + | docusate sodium | Take 100 mg by mouth | | 0 | | | | (COLACE) 100 mg | Twice daily as | | | | | | capsule | needed. | | | | | + + + +---------+ + + | gabapentin | Take 300 mg by mouth | | 0 | | | | (NEURONTIN) 300 mg | 3 times daily. | | | | | | capsule | | | | | | + + + +---------+ + + | Garlic 1000 MG | Take 1 tablet by | | 0 | | | | CAPS | mouth Daily. | | | | | + + + +---------+ + + | levothyroxine | Take 100 mcg by | | 0 | | | | (SYNTHROID, | mouth every morning | | | | | | LEVOTHROID) 100 mcg | (before breakfast). | | | | | | tablet | | | | | | + + + +---------+ + + | losartan (COZAAR) | Take 50 mg by mouth | | 0 | | | | 50 mg tablet | Daily. | | | | | + + + +---------+ + + | Multiple Vitamin | Take 1 tablet by | | 0 | | | | (THERAGRAN PO) | mouth Daily. | | | | | + + + +---------+ + + | Multiple | Take by mouth. | | 0 | | | | Vitamins-Minerals | | | | | | | ([facility]) | | | | | | | MISC | | | | | | + + + +---------+ + + | [place]-3 Fatty | Take 1 tablet by | | 0 | | | | Acids (PRO NUTRIENTS | mouth Daily. | | | | | | OMEGA 3 PO) | | | | | | + + + +---------+ + + | omeprazole | Take 20 mg by mouth | | 0 | | | | (PRILOSEC) 20 mg | every morning | | | | | | capsule | (before breakfast). | | | | | + + + +---------+ + + | ondansetron | Take 4 mg by mouth | | 0 | 07/26/19 | | | (ZOFRAN ODT) 4 mg | every 8 hours as | | | 17 | | | disintegrating | needed. | | | | | | tablet | | | | | | + + + +---------+ + + | Psyllium | Take by mouth | | 0 | | | | (METAMUCIL PO) | Daily. | | | | | + + + +---------+ + + | | Take 1 tablet by | | 0 | | | | HYDROcodone-acetamin | mouth every 6 hours | | | | 9 | | ophen (NORCO) 5-325 | as needed for Pain. | | | | | | mg per tablet | | | | | | + + + +---------+ + + | PROVENTIL HFA 108 | Inhale 1 puff into | | 0 | 06/26/19 | | | (90 Base) MCG/ACT | the lungs every 4 | | | 17 | 9 | | inhaler | hours as needed. | | | | | + + + +---------+ + + documented as of this encounter Plan of Treatment +--------+---------+ + + + | Date | Type | Specialty | Care Team | Description | +--------+---------+ + + + | 05/16/ | Office | Orthopedic Surgery | [place] | | | 2018 | Visit | | MD [address] | | | | | | [address] | | | | | | [place] [address] | | | | | | [phone] | | | | | | | | +--------+---------+ + + + | 06/30/ | Office | Cardiology | Smitha Griffin DO | | | 2019 | Visit | | [address] | | | | | | [place] | | | | | | [address] | | | | | | | | +--------+---------+ + + + documented as of this encounter Procedures + +--------+ + + + | Procedure Name | Priori | Date/Time | Associated Diagnosis | Comments | | | ty | | | | + +--------+ + + + | ECG 12 LEAD | Routin | 09/26/2016 | | Results for this | | | e | 1:59 PM | | procedure are in the | | | | PDT | | results section. | + +--------+ + + + | [place] ERCP | Routin | 09/26/2016 | | Results for this | | | e | 1:10 PM | | procedure are in the | | | | PDT | | results section. | + +--------+ + + + | ERCP | Routin | 09/26/2016 | | Results for this | | | e | 12:24 PM | | procedure are in the | | | | PDT | | results section. | + +--------+ + + + | ERCP | | 09/26/2016 | Common bile duct | | | | | 12:22 PM | stone (K80.50) | | | | | PDT | | | + +--------+ + + + | ECG 12 LEAD | STAT | 09/26/2016 | | Results for this | | | | 11:14 AM | | procedure are in the | | | | PDT | | results section. | + +--------+ + + + documented in this encounter Results ECG 12 lead (09/26/2016 1:59 PM PDT) + + + + + + | Component | Value | Ref Range | Performed | Pathologist | | | | | At | Signature | + + + + + + | VENTRICULAR | 45 | BPM | [facility] | | | RATE EKG | | | | | + + + + + + | ATRIAL RATE | 45 | BPM | [facility] | | + + + + + + | P-R | 170 | ms | [facility] | | | INTERVAL | | | | | + + + + + + | QRS | 74 | ms | [facility] | | | DURATION | | | | | + + + + + + | Q-T | 462 | ms | [facility] | | | INTERVAL | | | | | + + + + + + | Q-T | 399 | ms | [facility] | | | INTERVAL | | | | | | (CORRECTED) | | | | | + + + + + + | P WAVE AXIS | 64 | degrees | [facility] | | + + + + + + | QRS AXIS | 62 | degrees | [facility] | | + + + + + + | T AXIS | 44 | degrees | [facility] | | + + + + + + | INTERPRETAT | Sinus bradycardia with | | [facility] | | | ION TEXT | sinus arrhythmiapossible | | | | | | septal infarction | | | | | | age-indeterminateOtherwi | | | | | | se normal ECGWhen | | | | | | compared with ECG of | | | | | | 26-SEP-2016 11:14, | | | | | | (Unconfirmed)No | | | | | | significant change was | | | | | | foundConfirmed by | | | | | | VODNA SHEPPARD MD ([id number]) | | | | | | on 10/07/2016 7:00:48 AM | | | | + + + + + + + + | Specimen | + + | | + + + + + | Narrative | Performed At | + + + | | | + + + + +---------+ + + | Performing | Address | City/State/Zipcode | Phone Number | | Organization | | | | + +---------+ + + | [facility] | | | | + +---------+ + + [place] ERCP (09/26/2016 1:10 PM PDT) + + | Specimen | + + | | + + + + + | Narrative | Performed At | + + + | [place] ERCP 09/26/2016 12:32 PM HISTORY: intra op. COMPARISON: | [facility] | | None. FINDINGS: Multiple fluoroscopic images from an ERCP were | | | obtained. IMPRESSION - ERCP images. Please see the operative | | | report for further information. Dictated and Signed by: Truong | | | MD Rafal Electronically signed: 09/26/2016 1:35 PM | | + + + + + | Procedure Note | + + | Ricco Lawrence Results In - 09/26/2016 1:38 PM PDT [place] ERCP 09/26/2016 12:32 PM | | | | HISTORY: intra op. | | | | COMPARISON: None. | | | | FINDINGS: | | Multiple fluoroscopic images from an ERCP were obtained. | | | | IMPRESSION - | | ERCP images. | | | | Please see the operative report for further information. | | | | Dictated and Signed by: Truong Lyles MD | | Electronically signed: 09/26/2016 1:35 PM | + + + +---------+ + + | Performing | Address | City/State/Zipcode | Phone Number | | Organization | | | | + +---------+ + + | [facility] | | | | + +---------+ + + ERCP (09/26/2016 12:24 PM PDT) + + | Specimen | + + | | + + + + -+ | Narrative | Performed At | + + -+ | | [facility] | | GastroenterologyPatient Name: November San AndreasProcedure Date: 09/26/2016 | [facility] | | 12:24 PMMRN: [id number] #: [id number] of : | | | 4Admit Type: AmbulatoryAge: 80Room: [facility]Gender: FemaleNote | | | Status: FinalizedAttending MD: Gregor Mccord , [facility] | | | ERCPIndications: Filling defect on intraoperative | | | cholangiogramProviders: Gregor Mccord MD, Jalyn Darden | | | ROBI Ring, Pablo Rothman BAKER TEST, | | | Laurie Hammond, Nurse First Aid, Paty Beverly | | | Michelle, Nurse First Aid, Enrique Llanos MD (Anesthesia | | | Staff)Referring MD: Susan Zamora | | | (Referring MD)Medicines: Sedation Required Anesthesia | | | Staff AssistanceComplications: No immediate complications. | | | Estimated blood loss: Minimal.Procedure: Pre-Anesthesia | | | Assessment: - Prior to the procedure, a History and Physical was | | | performed, and patient medications, allergies and | | | sensitivities were reviewed. The patient's tolerance of | | | previous anesthesia was reviewed. - Prior to the procedure, a | | | History and Physical was performed, and patient medications and | | | allergies were reviewed. The patient is competent. The risks | | | and benefits of the procedure and the sedation options and | | | risks were discussed with the patient. All questions were | | | answered and informed consent was obtained. Patient identification and | | | proposed procedure were verified by the physician, the nurse, | | | the anesthesiologist and the mechatronics technician in the endoscopy suite. | | | Mental Status Examination: alert and oriented. Airway | | | Examination: normal oropharyngeal airway and neck mobility and | | | Mallampati Class III (part of the uvula and soft palate | | | visualized). Prophylactic Antibiotics: The patient does not | | | require prophylactic antibiotics. Prior Anticoagulants: The | | | patient has taken no previous anticoagulant or antiplatelet agents. | | | ASA Grade Assessment: II - A patient with mild systemic disease. | | | After reviewing the risks and benefits, the patient was deemed | | | in satisfactory condition to undergo the procedure. The | | | anesthesia plan was to use monitored anesthesia care (MAC). | | | Immediately prior to administration of medications, the patient | | | was re-assessed for adequacy to receive sedatives. The heart | | | rate, respiratory rate, oxygen saturations, blood pressure, | | | adequacy of pulmonary ventilation, and response to care were | | | monitored throughout the procedure. The physical status of the patient | | | was re-assessed after the procedure. - After reviewing | | | the risks and benefits, the patient was deemed in satisfactory | | | condition to undergo the procedure. - Using IV propofol under | | | the supervision of an anesthesiologist was determined to be | | | medically necessary for this procedure based on age 65 or older | | | and complex procedure (ERCP, EUS). - Immediately prior to | | | administration of medications, the patient was re-assessed for | | | adequacy to receive sedatives. - The heart rate, respiratory | | | rate, oxygen saturations, blood pressure, adequacy of pulmonary | | | ventilation, and response to care were monitored throughout | | | the procedure. - The physical status of the patient was | | | re-assessed after the procedure. After obtaining informed | | | consent, the scope was passed under direct vision. Throughout | | | the procedure, the patient's blood pressure, pulse, and oxygen | | | saturations were monitored continuously. The endoscope was | | | introduced through the mouth, and advanced to the duodenum and used to | | | inject contrast into the bile duct. The ERCP was accomplished | | | without difficulty. The patient tolerated the procedure | | | well.Findings: A crew caller film of the abdomen was obtained. | | | Surgical clips, consistent with a previous cholecystectomy, | | | were seen in the area of the right upper quadrant of the | | | abdomen. The upper GI tract was traversed under direct vision | | | without detailed examination. The major papilla was normal. | | | Which appeared to have a nipple appearance of the common bile | | | duct and training at the superior aspect of the nipple A long 0.035 | | | inch Soft Jagwire was passed into the biliary tree. The 3-4-5 | | | taper-tip cannula was passed over the guidewire and the bile | | | duct was then deeply cannulated. Contrast was injected. I | | | personally interpreted the bile duct images. Ductal flow of | | | contrast was adequate. Image quality was adequate. Contrast | | | extended to the bifurcation. The main bile duct was moderately | | | dilated. The largest diameter was 10 mm. A 10 mm biliary | | | sphincterotomy was made with a monofilament Autotome sphincterotome | | | using ERBE electrocautery. The sphincterotomy oozed blood. The | | | main bile duct was dilated. The biliary tree was swept with a 9 | | | mm balloon and 12 mm balloon starting at the bifurcation. | | | Sludge was swept from the duct. One 10 Fr by 5 cm temporary | | | stent with a single external flap and a single internal flap | | | was placed 9 cm into the common bile duct. Bile flowed through | | | the stent. The stent was in good position.Impression: - The | | | major papilla appeared normal. - The minor papilla appeared | | | normal. - The entire main bile duct was moderately dilated. | | | - The entire main bile duct was dilated. - A biliary | | | sphincterotomy was performed. - The biliary tree was swept and | | | sludge was found. - One temporary stent was placed into the | | | common bile duct.Recommendation: - Avoid aspirin and | | | nonsteroidal anti-inflammatory medicines for 1 day. - Discharge | | | patient to home (ambulatory). - Mechanical soft diet today. | | | - Continue present medications. - Repeat ERCP in 2 weeks to | | | remove stent. - Return to primary care physician as previously | | | scheduled. - Telephone GI clinic if symptomatic.Gregor Mccord | | | 09/26/2016 1:21:22 PMThis report has been signed | | | electronically.Number of Addenda: 0Note Initiated On: 09/26/2016 12:24 | | | PMTotal Procedure Duration: 0 hours 27 minutes 8 seconds Scope In: | | | 12:39:22 PMScope Out: 1:06:30 PM [facility] | | | [place], [address] [place] [id number] | | | - Continue present medications. | | | - Repeat ERCP in 2 weeks to remove stent. | | | - Return to primary care physician as previously scheduled. | | | - Telephone GI clinic if symptomatic. | | |Gregor Mccord MD | | |09/26/2016 1:21:22 PM | | |This report has been signed electronically. | | |Number of Addenda: 0 | | |Note Initiated On: 09/26/2016 12:24 PM | | |Total Procedure Duration: 0 hours 27 minutes 8 seconds | | |Scope In: 12:39:22 PM | | |Scope Out: 1:06:30 PM | | | [facility], [address] [place] [address] | | | [phone] | | + + -+ + +---------+ + + | Performing | Address | City/State/Zipcode | Phone Number | | Organization | | | | + +---------+ + + | [facility] | | | | + +---------+ + + ECG 12 lead (09/26/2016 11:14 AM PDT) + + + + + + | Component | Value | Ref Range | Performed | Pathologist | | | | | At | Signature | + + + + + + | VENTRICULAR | 65 | BPM | [facility] | | | RATE EKG | | | | | + + + + + + | ATRIAL RATE | 65 | BPM | [facility] | | + + + + + + | P-R | 166 | ms | [facility] | | | INTERVAL | | | | | + + + + + + | QRS | 86 | ms | [facility] | | | DURATION | | | | | + + + + + + | Q-T | 416 | ms | [facility] | | | INTERVAL | | | | | + + + + + + | Q-T | 432 | ms | [facility] | | | INTERVAL | | | | | | (CORRECTED) | | | | | + + + + + + | P WAVE AXIS | 68 | degrees | [facility] | | + + + + + + | QRS AXIS | 62 | degrees | [facility] | | + + + + + + | T AXIS | 38 | degrees | [facility] | | + + + + + + | INTERPRETAT | Normal sinus | | [facility] | | | ION TEXT | rhythmSeptal infarct , | | | | | | age undeterminedAbnormal | | | | | | ECGNo previous ECGs | | | | | | availableConfirmed by | | | | | | VONDA SHEPPARD MD ([id number]) | | | | | | on 09/27/2016 7:36:24 AM | | | | + + + + + + + + | Specimen | + + | | + + + + + | Narrative | Performed At | + + + | | | + + + + +---------+ + + | Performing | Address | City/State/Zipcode | Phone Number | | Organization | | | | + +---------+ + + | [facility] | | | | + +---------+ + + documented in this encounter Visit Diagnoses Not on filedocumented in this encounter Administered Medications + +--------+ +-------+------+------+ | Medication Order | MAR | Action | Dose | Rate | Site | | | Action | Date | | | | + +--------+ +-------+------+------+ | indomethacin (INDOCIN) | Given | 09/27/19 | 50 mg | | | | suppository Rectal, PRN, | | 17 12:38 | | | | | Starting 09/26/16 at 1238 | | PM PDT | | | | + +--------+ +-------+------+------+ +-------+ +-------+---+---+ | Given | 09/27/19 | 50 mg | | | | | 17 12:38 | | | | | | PM PDT | | | | +-------+ +-------+---+---+ +---+---+ | | | +---+---+ + +---------+ +---+---+---+ | lactated ringers (LR) infusion | New Bag | 09/27/19 | | | | | at 100 mL/hr, Intravenous, | | 17 12:05 | | | | | CONTINUOUS, Starting Thu09/26/16 | | PM PDT | | | | | at 1130, Pre-op | | | | | | + +---------+ +---+---+---+ +---------+ +--------+-------+---+ | New Bag | 09/27/19 | 1,000 | 100 | | | | 17 11:32 | mLs | mL/hr | | | | AM PDT | | | | +---------+ +--------+-------+---+ +---+---+ | | | +---+---+ + +-------+ +-------+---+---+ | losartan (COZAAR) tablet 50 mg | Given | 09/27/19 | 50 mg | | | | 50 mg, Oral, ONCE, Thu09/26/16 | | 17 2:31 | | | | | at 1445, For 1 dose, | | PM PDT | | | | | Post-op/Phase II | | | | | | + +-------+ +-------+---+---+ +---+---+ | | | +---+---+ + +-------+ +------+---+---+ | ondansetron (ZOFRAN) injection | Given | 09/27/19 | 4 mg | | | | 4 mg 4 mg, Intravenous, ONCE | | 17 2:24 | | | | | PRN, Nausea, Starting 09/26/16 | | PM PDT | | | | | at 1316, For 1 dose, | | | | | | | Recovery/Phase I | | | | | | + +-------+ +------+---+---+ +---+---+ | | | +---+---+ documented in this encounter
--- OUTSIDE RECORDS SUMMARY | ~2019-05-11 | XMS | Encounter Summary ---
Demographics + + + | Address | [address] | | | [place] [address] | + + + | Home Phone | | + + + | Preferred Language | Unknown | + + + | Marital Status | | + + + | Oriental Orthodox Affiliation | 1077 | + + + | Race | Unknown | + + + | Ethnic Group | Unknown | + + + Author + + + | Author | [facility] | | | and Khurramana | + + + | Organization | [facility] | | | and [place] | [...] Team Providers + +------+ + | Care Sheet Metal Layout Mechanic Name | Role | Phone | + +------+ + | Susan Leos | PCP | | | PA-C | | | + +------+ + Encounter Details +--------+ + + + + | Date | Type | Department | Care Team | Description | +--------+ + + + + | 03/14/ | [facility] | [facility] | [place] | Left hip pain | | 2018 | Encounter | [address] | MD [address] | | | | | [address] | [address] | | | | | [place] | [place] [address] | | | | | [address] | [phone] | | | | | [phone] | | | +--------+ + + + [...] + + documented as of this encounter Medications at Time of Discharge [...] + + + +---------+ + + | Cetirizine HCl | Take 10 mg by mouth | | 0 | | | | (ALLERGY RELIEF) 10 | Daily. | | | | | | MG liqui-gel | | | | | | + + + +---------+ + + | [facility] TRIPLE | Take by mouth. | | 0 | | | | MAGNESIUM COMPLEX PO | | | | | | + [...] | | | | | | | ([facility]) | | | | | | | MISC | | | | | | + + + +---------+ + + | [place]-3 Fatty | Take 1 tablet by | [...] + + + +---------+ + + | POTASSIUM CITRATE | Take by mouth. | | 0 | | | | PO | | | | | | + + + +---------+ + + | Psyllium | Take by mouth | | 0 | | | | (METAMUCIL PO) | Daily. | | | | | + + + +---------+ + + | ASPIRIN 81 PO | Take by mouth. | | 0 | | | | | | | | | 9 | + + + +---------+ + + [...] [address] | | | | | | [place] [address] | | | | | | [phone] | | | | | | | | +--------+---------+ + + + | 06/30/ | Office | Cardiology | Smitha Griffin DO | | | 2019 | Visit | | [address] | | | | | | [place] | | | | | | [address] | | | | | | | | +--------+---------+ + + + documented as of this encounter Procedures + +--------+ + + + | Procedure Name | Priori | Date/Time | Associated Diagnosis | Comments | | | ty | | | | + +--------+ + + + | XR HIP LEFT 2-3 | Routin | 03/14/2019 | Left hip pain | Results for this | | VIEWS | e | 3:48 PM | | procedure are in the | | | | PDT | | results section. | + +--------+ + + + documented in this encounter Results XR Hip Left 2-3 [...] + | Diagnosis | + + | Left hip pain Pain in joint, pelvic region and thigh | + + documented in this encounter"
--- OUTSIDE RECORDS SUMMARY | ~2019-05-11 | XMS | Clinical Summary ---
Demographics + + + | Address | [address] | | | [place] [address] | + + + | Home Phone | | + + + | Preferred Language | Unknown | + + + | Marital Status | | + + + | Voodoo Affiliation | Unknown | + + + | Race | Unknown | + + + | Ethnic Group | Unknown | + + + Author + + + | Author | [facility] (Historical as of | | | 01-29-19) | + + + | Organization | [facility] (Historical as of | | | 01-29-19) | + + + | Address | Unknown | + + + | Phone | Unavailable | + + + Support + + + + + | Name | Relationship | Address | Phone | + + + + + | Alejo Murguia | DIRK | [address] | | | | | [place] [address] | | + + + + + Care Team Providers + +------+ + | Care Laundrette Owner Name | Role | Phone | + +------+ + | Lissette Dixon | PP | | | MD | | | + +------+ + Allergies Not on File Current Medications Not [...] + + + + | Vaccine: Zoster (1 | | | | | of 2) | 4 | | | + + + + + | DEXA SCAN SCREENING | | | | | | 9 | | | + + + + + | Vaccine: | | | | | Pneumococcal 65+ | 9 | | | | Low/Medium Risk (1 | | | | | of 2 - PCV13) | | | | + + + + + | Vaccine: Influenza | | | | | (#1) | 9 | | | + + + + + Results Not on filefrom Last 3 Months"
--- OUTSIDE RECORDS SUMMARY | ~2019-05-11 | XMS | Encounter Summary ---
Demographics + + + | Address | [address] | | | [place] [address] | + + + | Home Phone | | + + + | Preferred Language | Unknown | + + + | Marital Status | | + + + | Rastafari Affiliation | 1077 | + + + | Race | Unknown | + + + | Ethnic Group | Unknown | + + + Author + + + | Author | [facility] | | | and Khurramana | + + + | Organization | [facility] | | | and [place] [...] Team Providers + +------+ + | Care Commercial Hvac Technician Name | Role | Phone | + +------+ + | Susan Leos | PCP | | | KYA | | | + +------+ + Encounter Details +--------+ + + + + | Date | Type | Department | Care Team | Description | +--------+ + + + + | 02/13/ | Orders Only | [facility] [place] | Ray, | 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 [address] | [address] | disc disease), | | | | [place], | [address] [place], | lumbar; | | | | [place] [address] | [place] [address] | Spondylolisthesis at | | | | [phone] | [phone] | L4-L5 level; | | | | | | Bilateral [...] [address] | | | | | | [place] [address] | | | | | | [phone] | | | | | | | | +--------+---------+ + + + | 06/30/ | Office | Cardiology | Smitha GriffinDO | | | 2019 | Visit | | [address] | | | | | | [place] | | | | | | [address] | | | | | | | [...]
--- OUTSIDE RECORDS SUMMARY | ~2019-05-11 | XMS | Encounter Summary ---
Demographics + + + | Address | [address] | | | [place] [address] | + + + | Home Phone | | + + + | Preferred Language | Unknown | + + + | Marital Status | | + + + | Restorationist Affiliation | Unknown | + + + | Race | White | + + + | Ethnic Group | Not or | + + + Author + + + | Author | [facility] | + + + | Organization | [facility] | + + + | Address | Unknown | + + + | Phone | Unavailable | + + + Support + + + + + | Name | Relationship | Address | Phone | + + + + + | Chrissie Leos | DIRK | [place] | | + + + + + Care Team Providers + +------+ + | Care Ab Initio Etl Developer Name | Role | Phone | + +------+ + PCP | Unavailable | + +------+ + Encounter Details +--------+ + + + + | Date | Type | Department | Care Team | Description | +--------+ + + + + | 09/24/ | Hospital | Dermatopathology | | | | 2016 | Encounter | [address] | | | | | | Mailcode: CH16D | | | | | | [facility] | | | | | | and Healing, | | | | | | Building [address], [address]th | | | | | | Floor [place], [place] | | | | | | [address] | | | | | | [phone] | | | +--------+ + + + [...] as of this encounter Plan of Treatment Not on filedocumented as of this encounter Procedures + +--------+ + + + | Procedure Name | Priori | Date/Time | Associated Diagnosis | Comments | | | ty | | | | + +--------+ + + + | DERMATOPATHOLOGY(CON | Routin | 09/25/2015 | | Results for this | | SULT) | e | | | procedure are in the | | | | | | results section. | + +--------+ + + + documented in this encounter Results DERMATOPATHOLOGY(CONSULT) (09/25/2015) + + + + + + | Component | Value | Ref Range | Performed | Pathologist | | | | | At | Signature | + + + + + + | DERMATOPATH | SOURCE OF SPECIMEN:A Lt. | | [facility] | | | (CONSULT) | distal nose, shave | | DERMATOPATH | | | | biopsy CLINICAL | | OLOGY | | | | DESCRIPTION:Clinically | | | | | | r/o BCC; histo numerous | | | | | | small basophilic | | | | | | aggregates w/follicular | | | | | | differentiation; ?BCC | | | | | | vs. | | | | | | tricoepithelioma.Materia | | | | | | ls | | | | | | Received:[id number] | | | | | | 360-16 x1 slide | | | | | | Dear Dr. Nur: | | | | | | Thank you for asking us | | | | | | to review Scarlet Murguia' | | | | | | left distal nose | | | | | | shavebiopsy, where there | | | | | | are aggregates of | | | | | | basaloid cells in the | | | | | | dermis withareas of | | | | | | peripheral nuclear | | | | | | palisading, retraction | | | | | | artifact and | | | | | | fibromyxoidstroma. There | | | | | | are mitoses and | | | | | | apoptotic figures. Many | | | | | | of the aggregates arein | | | | | | infiltrative to linear | | | | | | arrangement between | | | | | | somewhat fibrotic | | | | | | collagenbundles. There | | | | | | is prominent solar | | | | | | elastosis. 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 | | | | | | NOTE: The | | | | | | morphology is consistent | | | | | | with morpheaform basal | | | | | | cell carcinoma,other | | | | | | basaloid epithelial | | | | | | neoplasms such as | | | | | | trichoepithelioma | | | | | | ormicrocystic adnexal | | | | | | carcinoma are not | | | | | | favored. Basal cell | | | | | | carcinoma ispresent at | | | | | | the deep biopsy margin. | | | | | | Materials | | | | | | Returned:[id number] | | | | | | 360-16 x1 slide My | | | | | | electronic signature | | | | | | indicates that I have | | | | | | personally reviewed | | | | | | alldiagnostic slides, | | | | | | the gross and/or | | | | | | microscopic portion of | | | | | | thisreport and | | | | | | formulated the final | | | | | | diagnosis. | | | | | | Rendering Diagnostician: | | | | | | Laurie Crowley | | | | | | Erika | | | | | | MDPathologistElectronica | | | | | | lly Signed 10/02/2015 | | | | | | 9:48AM | | | | + + + [...] | + + + + + | [facility] | Mailcode CH5D, [address] | [place] [address] | | | DERMATOPATHOLOGY | [address] | | | + + + + + documented in this encounter Visit Diagnoses Not on filedocumented in this encounter"
--- OUTSIDE RECORDS SUMMARY | ~2019-05-11 | XMS | Encounter Summary ---
Demographics + + + | Address | [address] | | | [place] [address] | + + + | Home Phone | | + + + | Preferred Language | Unknown | + + + | Marital Status | | + + + | Roman Catholic Affiliation | 1077 | + + + | Race | Unknown | + + + | Ethnic Group | Unknown | + + + Author + + + | Author | [facility] | | | and Khurramana | + + + | Organization | [facility] | | | and [place] [...] Team Providers + +------+ + | Care Retort Unloader Name | Role | Phone | + [...] | | | | | | | [place] ERCP DX | | | | | [...] + + | 09/26/ | Hospital | [place] | Gregor Mccord MD | Choledocholithiasis | | 2017 | Encounter | [facility] | [address] | (Primary Dx) | | | | [address] | [address] [place] | | | | | [place] | [address] | | | | | [address] | | | | | | [phone] | | | +--------+ + + + [...] any other blood-thinning medicines (anticoagulants) until your p nirmala says it s OK. Your provider may [...] or severe belly or abdominal pain Fever [id number] (37.7C) or chills Upset stomach (nausea) and vomiting Black or tarry stools Date Last Reviewed: 11/25/201419994688-5319 [employer]. [address] [place] [address], [place] [address]. All righ ts reserved. This information is [...] | | | | | | | ([facility]) | | | | | | | MISC | | | | | | + + + +---------+ + + | [place]-3 Fatty | Take 1 tablet by | [...] [place] | | | | | | [address] | | | | | | [place] [address] | | | | | | [phone] | | | | | | | | +--------+---------+ + + + | 06/30/ | Office | Cardiology | Smitha Griffin DO | | | 2019 | Visit | | [address] | | | | | | [place] | | | | | | [address] | | | | | | | [...] | | | | VONDA SHEPPARD MD ([id number]) | | | | | | on [...] | | + +---------+ + + [place] NILESH (09/26/2016 1:10 PM PDT) + + | [...] | [facility] | | GastroenterologyPatient Name: November EarlvilleProcedure Date: 09/26/2016 | PROVATION | | 12:24 PMMRN: [id number] #: [id number] of : | | | 1935dmit Type: AmbulatoryAge: 80Room: [facility] 01Gender: FemaleNote | | | Status: FinalizedAttending MD: Gregor Mccord , MDProcedure: | | | ERCPIndications: Filling defect on intraoperative | | | cholangiogramProviders: Gregor Mccord MD, Jalyn Darden | | | ROBI Ring, Pablo Rothman CMA, | | | Laurie Hammond, Instrument Repair Technician, Paty Beverly | | | Michelle, Instrument Repair Technician, Enrique Llanos MD (Anesthesia | | | [...] | | | the anesthesiologist and the target aircraft technician in the endoscopy suite. | | [...] the procedure | | | well.Findings: A topographic computator film of the abdomen was obtained. | [...] | | 12:39:22 PMScope Out: 1:06:30 PM [facility] | | | [place], [address] [place] [address] | | | - Continue present medications. [...] |Scope Out: 1:06:30 PM | | | [facility], [address] [place] [address] | | | [address] | | + + -+ + +---------+ [...] | | | | VONDA SHEPPARD MD ([id number]) | | | | | | on [...] + | Diagnosis | + + | Choledocholithiasis - Primary Calculus of bile duct without mention of cholecystitis | | or obstruction | + + documented in this encounter [...] 12:38 | | | | | Starting Thu09/26/16 at 1238 | | PM PDT | [...]
--- OUTSIDE RECORDS SUMMARY | ~2019-05-11 | XMS | Encounter Summary ---
Demographics + + + | Address | [address] | | | [place] [address] | + + + | Home Phone | | + + + | Preferred Language | Unknown | + + + | Marital Status | | + + + | Yazdanism Affiliation | Unknown | + + + | Race | White | + + + | Ethnic Group | Not or | + + + Author + + + | Author | [facility] | + + + | Organization | [facility] | + + + | Address | Unknown | + + + | Phone | Unavailable | + + + Support + + + + + | Name | Relationship | Address | Phone | + + + + + | Chrissie Leos | DIRK | [place] | | + + + + + Care Team Providers + +------+ + | Care Meter Mechanic Name | Role | Phone | + +------+ + PCP | Unavailable | + +------+ + Encounter Details +--------+ + + + + | Date | Type | Department | Care Team | Description | +--------+ + + + + | 01/13/ | Lab | Dermatopathology | Lefty Nieves V, | | | 2019 | Requisition | [address] | [place] | | | | | Mailcode: CH16D | Clinic Dermatology | | | | | [facility] | [address] [facility] | | | | | and Healing, | [place] | | | | | [facility] | [address] | | | | | Floor [place], [place] | | | | | | [address] | | | | | | [phone] | | | +--------+ + + + [...] + + documented in this encounter Results DERM PATHOLOGY (01/12/2019) + + + [...] | OLOGY | | | | Case: [id number] | | | | | | | [...] | | | | | | Keo James, | | | | | | | [...] | | | | | | Keo James, | | | | | | MD [...] + | [facility] | Mailcode CH5D[address] | [place] [address] | | | DERMATOPATHOLOGY | [address] | | | + + + + + documented in this encounter Visit Diagnoses + + | Diagnosis | + + | Neoplasm of uncertain behavior of skin | + + documented in this encounter
--- OUTSIDE RECORDS SUMMARY | ~2019-05-11 | XMS | Encounter Summary ---
Demographics + + + | Address | [address] | | | [place] [address] | + + + | Home Phone | | + + + | Preferred Language | Unknown | + + + | Marital Status | | + + + | Orthodoxy Affiliation | 1077 | + + + | Race | Unknown | + + + | Ethnic Group | Unknown | + + + Author + + + | Author | [facility] | | | and Khurramana | + + + | Organization | [facility] | | | and [...] Team Providers + +------+ + | Care Leather Colorer Name | Role | Phone | + [...] + + | 04/07/ | Office | [facility] | Malcom Mojica, | Madelyn enriquezia | | 2016 | Visit | PHYSIATRY [address] | [address] | (Primary Dx) | | | | [place], | [address] [place] | | | | | [place] [address] | [address] | | | | | [phone] | | | +--------+---------+ + + + [...] Medicine Consult Note Malcom Mojica MD [address] [facility], [address] [place] [address] FAX: CHIEF COMPLAINT: Chief Complaint [...] tablet by mouth Daily. Multiple Vitamins-Minerals ([facility]) MISC Take by mouth. [place]wood-3 Fatty Acids (PRO NUTRIENTS OMEGA 3 PO) [...] ankles Coordination: There is no dysmetria on vybggq-aq-rshr and arob-rooy-jkce. 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 Her primary symptoms is [...] | | | | | [place] [address] | | | | | | [phone] | | | | | | | | +--------+---------+ + + + | 06/30/ | Office | Cardiology | Smitha Griffin DO | | | 2019 | Visit | | [address] | | | | | | [place] | | | | | | [address] | | | | | | | | +--------+---------+ + + + documented as of this encounter Visit Diagnoses + + | Diagnosis | + + | Hyper reflexia - Primary Abnormal reflex | + + documented in this encounter
--- OUTSIDE RECORDS SUMMARY | ~2019-05-11 | XMS | Clinical Summary ---
Demographics + + + | Address | [address] | | | [place] [address] | + + + | Home Phone | | + + + | Preferred Language | Unknown | + + + | Marital Status | | + + + | Methodist Affiliation | Unknown | + + + [...] Team Providers + +------+ + | Care Sanding Machine Tender Name | Role | Phone | + +------+ + PCP | Unavailable | + +------+ + Source Comments FIORELLA is fully live on both [facility] and [facility] InPatient.[facility] Allergies Not on File Medications Not on [...] + Results Not on filefrom Last 3 Months Insurance + +--------+ +--------+ [...] | MOD[employer] | [id number] | Effect | [phone] | [address] | PPO | | | MEDICA | | nestor | 4 | [address] | | | | RE PPO | | for | | [place], | | | | | | all | | [place] [address] | | | | | | dates [...] | 1936 | [phone] | [place] [address] | | | aissatou | | | 3 (Home) | | + +--------+ +--------+ + +"
--- OUTSIDE RECORDS SUMMARY | ~2019-05-11 | XMS | Encounter Summary ---
Demographics + + + | Address | [address] | | | [place] [address] | + + + | Home Phone [...] Author | [facility] | | | and Khurramana | + + + | Organization | [facility] | | | and [place] [...] Team Providers + +------+ + | Care Logistician Name | Role | Phone | + [...] | | | | | DDD | Ray, | TY | | | | | (degenerativ | [place], | HOSPITAL | | | | | e disc | PA-C [address] | [address] | | | | | disease), | [address] | AVE | | | | | lumbar | [place], [place] | [place], [place] | | | | | Spondylolist | [address] | [address] | | | | | hesis at | Phone: | Phone: | | | | | L4-L5 level | [phone] | [phone] | | | | | Bilateral | Fax: | Fax: | | | | | lumbar | [phone] | [phone] | | | | | radiculopath | [...] | n | al disc | [address] | | | | | displacement | [address] | [place], [place] | | | | | , lumbar | Ave | [address] Phone: | | | | | region | [place], | [phone] | | | | | | [place] | Fax: | | | | | | [address] | [phone] | | | | | | Phone: | | | | | | | [phone] | | | | | | | Fax: | | | | | | | [phone] | | +--------+--------+ + + + + Encounter Details +--------+---------+ + + + | Date | Type | Department | Care Team | Description | +--------+---------+ + + + | 02/03/ | Office | [facility] | Ray, | DDD (degenerative | | 2016 | Visit | PHYSIATRY [address] | [address] | disc disease), | | | | [place], | [place], | lumbar (Primary Dx); | | | | [place] [address] | [place] [address] | Spondylolisthesis | | | | [phone] | [phone] | at L4-L5 level; | | | [...] when you are done getting this in [facility], please call our offi ce [...] of blood sugars if you are diabetic. 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 Multiple Vitamins-Minerals ([facility]) MISC Take by mouth. [place]-3 Fatty Acids (PRO NUTRIENTS OMEGA 3 PO) [...] has no apparent deficits with short or rn long term care memory. She has appropriate fund of knowledge [...] had a NCS performed b y a loan documents closer in [place]. I would like to get those records. [...] [address] | | | | | | [place] [address] | | | | | | [phone] | | | | | | | | +--------+---------+ + + + | 06/30/ | Office | Cardiology | Smitha Griffin DO | | | 2019 | Visit | | [address] | | | | | | [place] | | | | | | [address] | | | | | | | [...]
--- OUTSIDE RECORDS SUMMARY | ~2019-05-11 | XMS | Encounter Summary ---
Demographics + + + | Address | [address] | | | [place] [address] | + + + | Home Phone | | + + + | Preferred Language | Unknown | + + + | Marital Status | | + + + | Mu-Ism Affiliation | Unknown | + + + | Race | White | + + + | Ethnic Group | Not or | + + + Author + + + | Author | [facility] | + + + | Organization | [facility] | + + + | Address [...] Team Providers + +------+ + | Care Stain Remover Name | Role | Phone | + [...] [place] | | | | | | [address] | | | | | | [place], [place] | | | | | | [address] | | | +--------+ + + + [...]
--- OUTSIDE RECORDS SUMMARY | ~2019-05-11 | XMS | Encounter Summary ---
Demographics + + + | Address | [address] | | | [place] [address] | + + + | Home Phone [...] | Author | [facility] | | | and Khurramana | + + + | Organization | [facility] | | | and [place] [...] Team Providers + +------+ + | Care Surgical Services Tech Name | Role | Phone | + [...] | | Services | Therapy | | Ray, | | | | Required | | Spondylolist | [place], | | | | | | jono at | PA-C [address] | | | | | | L4-L5 level | [address] | | | | | | DDD | [place] | | | | | | (degenerativ | [address] | | | | | | e disc | Phone: | | | | | | disease), | [phone] | | | | | | lumbar | Fax: | | | | | | Bilateral | [phone] | | | | | | lumbar | | | | | | | radiculopath | | | | | | | y | | | | | | | Procedures | | | | | | | Faxed 02/19/16 | | | +--------+ + + + + + Reason for Visit +---------+ + | Reason | Comments | +---------+ + | Results | | +---------+ + Encounter Details +--------+ + + + + | Date | Type | Department | Care Team | Description | +--------+ + + + + | 02/12/ | Telephone | [facility] | Ray, | Results | | 2015 | | PHYSIATRY [address] | [address] | | | | | [address], | [place], | | | | | [place] [address] | [place] [address] | | | | | [phone] | [phone] | | | | | | | [...] [address] | | | | | | [place] [address] | | | | | | [phone] | | | | | | | | +--------+---------+ + + + | 06/30/ | Office | Cardiology | Smitha Griffin DO | | | 2020 | Visit | | [address] | | | | | | [place] | | | | | | [address] | | | | | | | [...] +--------+ + + | AMB REFERRAL TO [facility] | Outpatient | Routin | Spondylolisthesis [...]
--- OUTSIDE RECORDS SUMMARY | ~2019-05-11 | XMS | Encounter Summary ---
Demographics + + + | Address | [address] | | | [place] [address] | + + + | Home Phone [...] Author | [facility] | | | and Khurramana | + + + | Organization | [facility] | | | and [...] Team Providers + +------+ + | Care Plaster Caster Name | Role | Phone | + [...] | Gregor Brock MD | [address] | | | | | abnormality | [address] | [place], | | | | | Procedures | [place], [place] | [place] | | | | | MRI MRCP | [address] | [address] | | | | | Liver wo | [place] | Phone: | | | | | Contrast [place] | [address] | [phone] | | | | | MRI, | Phone: | Fax: | | | | | ABDOMEN | [phone] | [phone] | | | | | (MRI) | Fax: | | | | | | | [phone] | | +--------+--------+ + + + + Reason for Visit +--------+ + | Reason | Comments | +--------+ + | Other | | +--------+ + Encounter Details +--------+ + + + + | Date | Type | Department | Care Team | Description | +--------+ + + + + | 10/15/ | Telephone | [facility] [place] | Gregor Mccord MD | Other | | 2016 | | GASTROENTEROLOGY | [address], [place] | | | | | [address] [place] | [address] [place] | | | | | [address] [place] | [address] | | | | | [address] | | | | | | [phone] | | | +--------+ + + + [...] [address] | | | | | | [place] [address] | | | | | | [phone] | | | | | | | | +--------+---------+ + + + | 06/30/ | Office | Cardiology | Smitha Griffin DO | | | 2019 | Visit | | [address] | | | | | | [place], [place] | | | | | | [address] | | | | | | | [...] bile duct. COMPARISON: Lumbar spine dated | JACEK | | 02/11/2016. PROTOCOL: Coronal T2 vice president research, axial T2 vice president research, coronal 3D | [facility] | | respiratory triggered, coronal T2 thin [...] spine dated | | 02/11/2016.PROTOCOL: Coronal T2 vice president research, axial T2 vice president research, coronal 3D respiratory | | triggered,coronal T2 [...] A few more small subcentimeter | | [id number] cyst are seen within the left kidney [...] + + | [address] | [address] | Candel[place] MD | [phone] | | [facility] | | [address] | | | - IMAGING | | | | + + + + + documented in this encounter Visit Diagnoses + + | Diagnosis | + + | Bile duct abnormality - Primary Unspecified disorder of biliary tract | + + documented in this encounter"
--- OUTSIDE RECORDS SUMMARY | ~2019-05-11 | XMS | Encounter Summary ---
Demographics + + + | Address | [address] | | | [place] [address] | + + + | Home Phone [...] | Author | [facility] | | | and Khurramana | + + + | Organization | [facility] | | | and [...] Team Providers + +------+ + | Care Tool And Die Inspector Name | Role | Phone | + [...] + + | Authorized | Specialty | Physical | Diagnoses | Ernesto | [facility] | | | Services | Therapy | | Gus | [facility] | | | Required | | Post-traumat | PA-C [address] | PHYSICAL | | | | | ic | [address] | THERAPY [address] | | | | | osteoarthrit | [place] | LINDAGATE | | | | | is of left | [place] | [place] | | | | | hip | [address] | [address] | | | | | | Phone: | Phone: | | | | | | [phone] | [phone] | | | | | | Fax: | Fax: | | | | | | [phone] | [phone] | + + + + + + [...] | | | | | from | [address] | [address] | | | | | [place] at | [address] | [address] | | | | | [facility] | [place], | [place], [place] | | | | | Procedures | [place] | [address] Phone: | | | | | NEW PATIENT | [address] | [phone] | | | | | | Phone: | Fax: | | | | | | [phone] | [phone] | | | | | | Fax: | | | | | | | [phone] | | + +--------+ + + + + Encounter Details +--------+---------+ + + + | Date | Type | Department | Care Team | Description | +--------+---------+ + + + | 03/21/ | Office | [facility] | Gus Orozco, | 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[place] [address] [address] | PA-C [address]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[place], [place] | [place], | left hip (Primary | | | | [address] | [place] [address] | Dx) | | | | [phone] | [phone] | | | | | | | [...] + | Blood Pressure | 188/76 | 03/21/2019 1:56 PM | | | | | PDT | | + + + + + | Pulse | 69 | 03/21/2019 1:56 PM | | | | | PDT | | + + + + + | Temperature | - | - | | + + + + + | Respiratory Rate | - | - | | + + + + + | Oxygen Saturation | 97% | 03/21/2019 1:56 PM | | | | | PDT | | + + + + + | Inhaled Oxygen | - | - | | | Concentration | | | | + + + + + | Weight | 75.6 kg (166 lb 9.6 | 03/21/2019 1:56 PM | | | | oz) | PDT | | + + + + + | Height | 167.6 cm (5' 6") | 03/21/2019 1:56 PM | | | | | PDT | | + + + + + | Body Mass Index | 26.89 | 03/21/2019 1:56 PM | | | | | PDT | | + + + + + documented in this encounter Progress Notes Gus Orozco PA-C - 03/21/2019 1:45 PM PDTFormatting of this note might be different fr om the original. 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 Tobacco Use Smoking status: Never [...] MISC, Take by mouth., Disp: , Rfl: [place]-3 Fatty Acids (PRO NUTRIENTS OMEGA 3 PO), Take 1 tablet by mouth Daily., Disp: , Rfl: omeprazole (PRILOSEC) 20 mg capsule, Take 20 mg by mouth every morning (before break st)., Disp: , Rfl: ondansetron (ZOFRAN ODT) [...] 12 months?:yes Under the care of a certified registered locksmith?: no Diabetes Optimization?:well controlled diet No results found for: LABGLYC History of MRSA/MSSA infection?:no Metal sensitivity or allergy?:no Intolerance to certain specific opiate?:no DVT/PE Risk Stratification Personal history of DVT/PE?:no Cancer treatment in the last 5 years?:no Hormone replacement therapy?:no Tolerate aspirin?:asa Current Anticoagulation?:asa Chemical prophylaxis plan:asa Anticipated Discharge Plan Discharge home to care of daughter (princess), [facility] [place] Return for 2 and 6 weeks post op. No notes on file Kaleigh Sortotronically signed by Gus Orozco PA-C at 03/21/2019 3:33 PM PDTd ocumented in this encounter Plan of Treatment +--------+---------+ + + + | Date | Type | Specialty | Care Team | Description | +--------+---------+ + + + | 05/16/ | Office | Orthopedic Surgery | Mark [place] | | | 2018 | Visit | | MD Alaina [address] | | | | | | [place] | | | | | | [place] [address] | | | | | | [phone] | | | | | | | | +--------+---------+ + + + | 06/30/ | Office | Cardiology | Smitha Grififn DO | | | 2019 | Visit | | [address] | | | | | | [place] | | | | | | [address] | | | | | | | | +--------+---------+ + + + + + +--------+ + + | Name | Type | Priori | Associated Diagnoses | Order Schedule | | | | ty | | | + + +--------+ + + | Ambulatory referral | Outpatient | Routin | Post-traumatic | Ordered: 03/21/2019 | | to Physical Therapy | Referral | e | 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 | | + + +--------+ + + documented as of this encounter Visit Diagnoses + + | Diagnosis | + + | 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
--- OUTSIDE RECORDS SUMMARY | ~2019-05-11 | XMS | Encounter Summary ---
Demographics + + + | Address | [address] | | | [place] [address] | + + + | Home Phone | | + + + | Preferred Language | Unknown | + + + | Marital Status | | + + + | Scientologist Affiliation | 1077 | + + + | Race | Unknown | + + + | Ethnic Group | Unknown | + + + Author + + + | Author | [facility] | | | and Khurramana | + + + | Organization | [facility] | | | and [place] [...] Team Providers + +------+ + | Care Muck Miner Name | Role | Phone | + [...] | | | | | | | ME ERCP DX | | | | | [...] + + + + | 09/26/ | Anesthesia | [facility] | Enrique Llanos | | | 2016 | Event | MED CTR MP INTRA OP | MD Mc [address] | | | | | [address] | [facility] | | | | | [place] | [place] [address] | | | | | [address] | [phone] | | | | | [phone] | | | +--------+ + + + + Anesthesia Record + + + + + | Procedure Name | Responsible | Anesthesia Start | Anesthesia Stop Time | | | Anesthesiologist | Time | | + + + + + | ERCP (N/A Mouth) | Enrique Bentley | 09/26/16 1226 | 09/26/16 1314 | | | MD Viet | | | + + + + + +----+---+ + + | Da | T | Event | Comment | | te | i | | | | | m | | | | | e | | | +----+---+ + + | 04 | 1 | | | | /1 | 1 | | | | 4/ | 4 | | | | 20 | 1 | | | | 17 | | | | +----+---+ + + | | 1 | An Checkout | Pre-use anesthesia machine/equipment checkout. | | | 2 | | | | | 2 | | | | | 6 | | | +----+---+ + + | | 1 | An Start | Reassessment prior to anesthesia induction/procedure. | | | 2 | | | | | 2 | | | | | 6 | | | +----+---+ + + | | 1 | An Start | | | | 2 | Data | | | | 2 | | | | | 6 | | | +----+---+ + + | | 1 | AN | Per surgeon request | | | 2 | Antibiotic | | | | 3 | declined | | | | 4 | | | +----+---+ + + | | 1 | Preoxygenat | | | | 2 | ed | | | | 3 | | | | | 4 | | | +----+---+ + + | | 1 | Pre-Procedu | | | | 2 | ral Timeout | | | | 3 | Completed | | | | 6 | | | +----+---+ + + | | 1 | An | | | | 2 | Induction | | | | 3 | | | | | 7 | | | +----+---+ + + | | 1 | Breathing | | | | 2 | Spontaneous | | | | 3 | ly | | | | 7 | | | +----+---+ + + | | 1 | Quick Note | IV induction - loss of lid reflexes, not responsive to voice or | | | 2 | | noxious stimuli. | | | 3 | | | | | 9 | | | +----+---+ + + | | 1 | an stop | | | | 3 | data | | | | 1 [...] | + + + | propofol | 585.59 mg | + + + | lidocaine 2% | 100 mg | + + + | lactated ringers (LR) infusion | 350 mL | + + + + + | Name | + + | O2 Flow Rate (L/Min) | + + + + | No blood administrations on file. | + + +--------+ + + + | Type | Details | Placement | Removal | +--------+ + + + | Periph | 09/26/16; 1132; Right; | 09/26/16 1132 by | 09/26/16 1530 by | | eral | Antecubital; [id number] | Patsy Dixon RN | Patsy Dixon RN | | IV | catheter system; 20 gauge; | | | | | distraction, intradermal | | | | | injection; no longer indicated; | | | | | 09/26/16; 1530 | | | +--------+ + + + [...] | | | | | [place] [address] | | | | | | [phone] | | | | | | | | +--------+---------+ + + + | 06/30/ | Office | Cardiology | Smitha Griffin DO | | | 2019 | Visit | | [address] | | | | | | [place] | | | | | | [address] | | | | | | | [...] | | | + +---------+ +------+------+------+ +---------+ +--------+-------+---+ | New Bag | 09/27/19 | 1,000 | 100 | | | | 17 11:32 | mLs | mL/hr | | | | AM PDT | | | | +---------+ +--------+-------+---+ +---+---+ | | | +---+---+ + +-------+ +--------+---+---+ | lidocaine (PF) 2% injection | Given | 09/27/19 | 100 mg | | | | Intravenous, PRN, Starting Fri | | 17 12:37 | | | | | 09/26/16 at 1237, Anesthesia | | PM PDT | | | | | Intra-op | | | | | | + +-------+ +--------+---+---+ +---+---+ | | | +---+---+ + + + + +--------+---+ | propofol (DIPRIVAN) injection | Rate/Dos | 09/27/19 | 300 | 124.7 | | | Intravenous, CONTINUOUS PRN, | e Change | 17 12:46 | mcg/kg/m | mL/hr | | | Starting 09/26/16 at 1237, | | PM PDT | in | | | | Anesthesia Intra-op | | | | | | + + + + +--------+---+ + + + +--------+---+ | Rate/Dose Change | 09/27/19 | 250 | 104 | | | | 17 12:41 | mcg/kg/m | mL/hr | | | | PM PDT | in | | | + + + +--------+---+ | New Bag | 09/27/19 | 300 | 124.7 | | | | 17 12:37 | mcg/kg/m | mL/hr | | | | PM PDT | in | | | + + + +--------+---+ +---+---+ | | | +---+---+ documented in this encounter"
--- OUTSIDE RECORDS SUMMARY | ~2019-05-11 | XMS | Encounter Summary ---
Demographics + + + | Address | [address] | | | [place] [address] | + + + | Home Phone [...] | [facility] | | | and Khurramana | + + + | Organization | [facility] | | | and [place] [...] Team Providers + +------+ + | Care Automobile Contract Clerk Name | Role | Phone | [...] Closed | | Radiology | Diagnoses | Yunior | Keshia Mri | | | | | Hyper | MD Malcom | [address] | | | | | reflexia | [address] | [place] | | | | | Abnormal | [place] | [place] | | | | | gait | [address] | [address] | | | | | Procedures | [place] | Phone: | | | | | MRI Cervical | [address] | [phone] | | | | | Spine wo | Phone: | Fax: | | | | | Contrast | [phone] | [phone] | | | | | | Fax: | | | | | | | [phone] | | +--------+--------+ + + + + Encounter Details +--------+ + + + + | Date | Type | Department | Care Team | Description | +--------+ + + + + | 03/03/ | Orders Only | [facility] [place] | Malcom Mojica, | Hyper reflexia | | 2016 | | PHYSIATRY [address] | [address] | (Primary Dx); | | | | [address], | [address] [place] | Abnormal gait | | | | [place] [address] | [address] | | | | | [phone] | | | +--------+ + + + [...] | | | | | [place] [address] | | | | | | [phone] | | | | | | | | +--------+---------+ + + + | 06/30/ | Office | Cardiology | Smitha Griffin DO | | | 2019 | Visit | | [address] | | | | | | [place] | | | | | | [address] | | | | | | | | +--------+---------+ + + + + +---------+--------+ + + | Name | Type | Priori | Associated Diagnoses | Order Schedule | | | | ty | | | + +---------+--------+ + + | MRI Cervical Spine | Imaging | Routin | Hyper reflexia | Expected: | | wo Contrast | | e | Abnormal gait | 03/03/2016, Expires: | | | | | | 03/03/2017 | + +---------+--------+ + + documented as of this encounter Visit Diagnoses + + | Diagnosis | + + | Hyper reflexia - Primary Abnormal reflex | + + | Abnormal gait Abnormality of gait | + + documented in this encounter"
--- OUTSIDE RECORDS SUMMARY | ~2019-05-11 | XMS | Encounter Summary ---
Demographics + + + | Address | [address] | | | [place] [address] | + + + | Home Phone | | + + + | Preferred Language | Unknown | + + + | Marital Status | | + + + | Denominational Affiliation | 1077 | + + + | Race | Unknown | + + + | Ethnic Group | Unknown | + + + Author + + + | Author | [facility] | | | and Khurramana | + + + | Organization | [facility] | | | and [place] [...] Team Providers + +------+ + | Care Book Retailer Name | Role | Phone | + [...] 2017 | | GASTROENTEROLOGY | [address], [place] | | | | | [address] [place] | [address] [place], [place] | | | | | [address] [place], [place] | [address] | | | | | [address] | | | | | | [phone] | | | +--------+ + + + [...] [address] | | | | | | [place] [address] | | | | | | [phone] | | | | | | | | +--------+---------+ + + + | 06/30/ | Office | Cardiology | Smitha Griffin DO | | | 2019 | Visit | | [address] | | | | | | [place] | | | | | | [address] | | | | | | | | +--------+---------+ + + + documented as of this encounter Visit Diagnoses Not on filedocumented in this encounter"
--- OUTSIDE RECORDS SUMMARY | ~2019-05-11 | XMS | Encounter Summary ---
Demographics + + + | Address | [address] | | | [place] [address] | + + + | Home Phone [...] + + | Author | [facility] | | | and Khurramana | + + + | Organization | [facility] | | | and [...] Team Providers + +------+ + | Care Residential Direct Support Professional Name | Role | Phone | [...] Post-op Question | | 2018 | | [place] [address] | MD Alaina [address] | | | | | [address] [place], [place] | [place]VD [place] | | | | | [address] | [place] [address] | | | | | [phone] | [phone] | | | | | | | [...] [place] | | | | | | [place] [address] | | | | | | [phone] | | | | | | | | +--------+---------+ + + + | 06/30/ | Office | Cardiology | Smitha Griffin DO | | | 2020 | Visit | | [address] | | | | | | [place] | | | | | | [address] | | | | | | | | +--------+---------+ + + + documented as of this encounter Visit Diagnoses Not on filedocumented in this encounter"
--- OUTSIDE RECORDS SUMMARY | ~2019-05-11 | XMS | Encounter Summary ---
Demographics + + + | Address | [address] | | | [place] [address] | + + + | Home Phone | | + + + | Preferred Language | Unknown | + + + | Marital Status | | + + + | Sabianist Affiliation | 1077 | + + + | Race | Unknown | + + + | Ethnic Group | Unknown | + + + Author + + + | Author | [facility] | | | and Khurramana | + + + | Organization | [facility] | | | and [...] Team Providers + +------+ + | Care Swiss Type Screw Machine Operator Name | Role | Phone [...] | | | | | | | ND ERCP DX | | | | | | | COLLECTION | | | | | | | SPECIMEN | | | | | | | BRUSHING/WAS | | | | | | | [place] | | | | | | | ANESTH,UGI | | | | | | | ENDOSCOPY | | | | | | | ERCP | | | +--------+--------+ + + + + Encounter Details +--------+ + + + + | Date | Type | Department | Care Team | Description | +--------+ + + + + | 05// | Hospital | [facility] | Gregor Mccord MD | | | 2017 | Encounter | MED CTR XRAY [address] | [address] | | | | | [place] | [address] [place], [place] | | | | | [place] [address] | [address] | | | | | [phone] | | | +--------+ + + + [...] | | | | | | ([facility]) | | | | | | | MISC | | | | | | + + + +---------+ + + | [place]-3 Fatty | Take 1 tablet by | [...] | | | | | [place] [address] | | | | | | [phone] | | | | | | | | +--------+---------+ + + + | 06/30/ | Office | Cardiology | Smitha Griffin DO | | | 2019 | Visit | | [address] | | | | | | [place] | | | | | | [id number] | | | | | | | | +--------+---------+ + + + documented as of this encounter Procedures + +--------+ + + + | Procedure Name | Priori | Date/Time | Associated Diagnosis | Comments | | | ty | | | | + +--------+ + + + | FL ERCP | Routin | 10/14/2016 | | Results for this | | | e | 1:06 PM | | procedure are in the | | | | PDT | | results section. | + +--------+ + + + documented in this encounter Results FL ERCP (10/14/2016 1:06 PM PDT) + + | Specimen | + + | | + + + + + | Narrative | Performed At | + + + | [place] ERCP 10/14/2016 12:30 PM HISTORY: intra op. COMPARISON: | [facility] | | 09/26/2016 FINDINGS: Multiple fluoroscopic images from an ERCP | | | were obtained. IMPRESSION - ERCP images. Please see the | | | operative report for further information. Dictated and Signed by: | | | Elio Ray MD Electronically signed: 10/14/2016 1:35 PM | | + + + + + | Procedure Note | + + | Ricco Lawrence Results In - 10/14/2016 1:38 PM PDT [place] ERCP 10/14/2016 12:30 PM | | | | HISTORY: intra op. | | | | COMPARISON: 09/26/2016 | | | | FINDINGS: | | Multiple fluoroscopic images from an ERCP were obtained. | | | | IMPRESSION - | | ERCP images. | | | | Please see the operative report for further information. | | | | Dictated and Signed by: Elio Ray MD | | Electronically signed: 10/14/2016 1:35 PM | + + + +---------+ + + | Performing | Address | City/State/Zipcode | Phone Number | | Organization | | | | + +---------+ + + | [facility] | | | | + +---------+ + + documented in this encounter Visit Diagnoses Not on filedocumented in this encounter"
--- OUTSIDE RECORDS SUMMARY | ~2019-05-11 | XMS | Encounter Summary ---
Demographics + + + | Address | [address] | | | [place] [address] | + + + | Home Phone [...] | Author | [facility] | | | and Khurramana | + + + | Organization | [facility] | | | and [place] | [...] Team Providers + +------+ + | Care Recorder Of Deeds Name | Role | Phone | + +------+ + | Susan Leos | PCP | | | PA-C | | | + +------+ + Encounter Details +--------+ + + + + | Date | Type | Department | Care Team | Description | +--------+ + + + + | 02/28/ | Hospital | [facility] | Malcom Mojica | Peripheral | | 2016 | Encounter | MED CTR LABORATORY | MD Desi SMITH | polyneuropathy (HCC) | | | | [address] [place] | [address] [place] | (Primary Dx) | | | | [place] | [address] | | | | | [address] | | | | | | [phone] | | | +--------+ + + + [...] | | | | | | | ([facility]) | | | | | | | MISC | | | | | | + + + +---------+--------+ + | [place]-3 Fatty | Take 1 tablet by | [...] tablet by | | 0 | | 10/15/201 | | HYDROcodone-acetamin | mouth every 6 [...] | | | | | [place] [address] | | | | | | [phone] | | | | | | | | +--------+---------+ + + + | 06/30/ | Office | Cardiology | Smitha Griffin DO | | | 2019 | Visit | | [address] | | | | | | [place] | | | | | | [address] | | | | | | | | +--------+---------+ + + + documented as of this encounter Procedures + +--------+ + + + | Procedure Name | Priori | Date/Time | Associated Diagnosis | Comments | | | ty | | | | + +--------+ + + + | VITAMIN B-1, WHOLE | Routin | 02/29/2016 | Peripheral | Results for this | | BLOOD | e | 8:41 AM | polyneuropathy (HCC) | procedure are in the | | | | PDT | | results section. | + +--------+ + + + | VITAMIN B-6 | Routin | 02/29/2016 | Peripheral | Results for this | | | e | 8:41 AM | polyneuropathy (HCC) | procedure are in the | | | | PDT | | results section. | + +--------+ + + + documented in this encounter Results Vitamin B-1, Whole Blood (02/29/2016 8:41 AM PDT) + + + + + + | Component | Value | Ref Range | Performed | Pathologist | | | | | At | Signature | + + + + + + | VITAMIN | 116Comment: Whole blood | 70 - 200 nmol/L | REFERENCE | | | B1,WHOLE | is the preferred | | LAB [facility] | | | BLOOD | specimen for thiamine | | | | | | assessment.Approximately | | | | | | , 80% of thiamine found | | | | | | in whole blood is in red | | | | | | bloodcells. This assasy | | | | | | detects thiamine | | | | | | diphosphate (TDP) not | | | | | | the variousaccompanying | | | | | | phosphate esters. | | | | | | Reference range applies | | | | | | to individualswho are | | | | | | not taking Vitamn B1 | | | | | | supplements.This test | | | | | | was developed and its | | | | | | performance | | | | | | characteristics | | | | | | determinedby [facility] | | | | | | Division of Laboratory | | | | | | Medicine. The [place]. | | | | | | Food and | | | | | | DrugAdministration (FDA) | | | | | | has not approved or | | | | | | cleared this test. | | | | | | However,FDA approval | | | | | | or clearance is | | | | | | currently not required | | | | | | for clinical useof this | | | | | | test.The results are not | | | | | | intended to be used as | | | | | | the sole means for | | | | | | clinicaldiagnosis or | | | | | | patient management | | | | | | decisions. [facility] | | | | | | is authorizedunder | | | | | | Clinical Laboratory | | | | | | Improvement Amendments | | | | | | (CLIA) to | | | | | | performhigh-complexity | | | | | | testing.Testing | | | | | | Performed: [facility], [address] | | | | | | [address], [place] | | | | | | [address] | | | | + + + + + + + + | Specimen | + + | Blood specimen | | (specimen) | + + + + + + + | Performing | Address | City/State/Zipcode | Phone Number | | Organization | | | | + + + + + | [facility] | [address] | [place] [address] | [phone] | + + + + + Vitamin B-6 (02/29/2016 8:41 AM PDT) + + + + + + | Component | Value | Ref Range | Performed | Pathologist | | | | | At | Signature | + + + + + + | Vitamin B6 | 31.4Comment: Reference | 4.0 - 40.0 | REFERENCE | | | | range applies to | ng/mL | LAB [facility] | | | | individuals who are not | | | | | | taking Vitamin | | | | | | [id number].This test | | | | | | [...] performhigh-complexity | | | | | | testing.Testing | | | | | | Performed: [facility], [address] | | | | | | [place] | | | | | | [address] | | | | + + + + + + + + | Specimen | + + | Blood specimen | | (specimen) | + + + + + + + | Performing | Address | City/State/Zipcode | Phone Number | | Organization | | | | + + + + + | [facility] | [address] | [place] [address] | [phone] | + + + + + documented in this encounter Visit Diagnoses + + | Diagnosis | + + | Peripheral polyneuropathy - Primary Unspecified hereditary and idiopathic peripheral | | neuropathy | + + documented in this encounter"
--- OUTSIDE RECORDS SUMMARY | ~2019-05-11 | XMS | Encounter Summary ---
Demographics + + + | Address | [address] | | | [place] [address] | + + + | Home Phone | | + + + | Preferred Language | Unknown | + + + | Marital Status | | + + + | Episcopal Affiliation | 1077 | + + + | Race | Unknown | + + + | Ethnic Group | Unknown | + + + Author + + + | Author | [facility] | | | and Khurramana | + + + | Organization | [facility] | | | and [place] [...] Team Providers + +------+ + | Care Utility Spray Operator Name | Role | Phone | + +------+ + | Susan Leos | PCP | | | PA-C | | | + +------+ + Encounter Details +--------+ + + + + | Date | Type | Department | Care Team | Description | +--------+ + + + + | 03/21/ | Preadmit | [facility] | [place] | | | 2019 | Visit | CENTER PREADMIT | MD Alaina [address] | | | | | CLINIC [address] | [place] | | | | | [place] | [place] [address] | | | | | [address] | [phone] | | | | | [phone] | | | +--------+ + + + [...] were given in the hospital. Wear them [id number] d ay for3 to 4weeks. To relieve discomfort at night, get up and move around. Tell all your healthcare providers including your dentist about your artificial join t before any procedure. You mayneed to take antibiotics before dental work and other medic al procedures to reduce the risk of infection. Arrangeto have your lobito removed [id number] after surgery. The lobito were u sed [...] ur hip joint. Use a raisedtoilet seat [id number] after surgery. Ask your healthcare provider if [...] put on socks and shoes. And don't corn picker items from the floor. Use a [...] draining from the incision Date Last Reviewed: 10/13/201719992187-4643 [employer]. [address] [place] [address]. All righ ts reserved. This information is not intended as a substitute for professional medical care. Always follow your healthcare professional's instructions. Outpatient Medications Marked as Taking for the 03/21/19 encounter (Preadmit Visit) with [facility] ROOM 2 Medication Sig Instructions acetaminophen (TYLENOL) [...] TAKE day of proced ure Multiple Vitamins-Minerals ([facility]) MISC Take by mouth. DO NOT TAKE day of procedure [place]-3 Fatty Acids (PRO NUTRIENTS OMEGA 3 PO) [...] 2018 | Visit | | MD Alaina [address] | | | | | | [place] | | | | | | [place] [address] | | | | | | [phone] | | | | | | | | +--------+---------+ + + + | 06/30/ | Office | Cardiology | Smitha Griffin DO | | | 2019 | Visit | | [address] | | | | | | [place] | | | | | | [address] | | | | | | | [...] + | Antibody | NEGATIVE | | [facility] | | | Screen | | | LABORATORY | | + + + + + + | Antibody | Testing performed at | | [facility] | | | Screen | [facility];[address] | | LABORATORY | | | | [address];[place] [address] | | | | + + + + + + + + | Specimen | + + | Blood | + + + + + + + | Performing | Address | City/State/Zipcode | Phone Number | | Organization | | | | + + + + + | [facility] | [address] | [place] [address] | [phone] | + + + + + MRSA [...] [facility] | | | | performed at [facility];[address] | | LABORATORY | | | | [address];[place] | | | | | | [address] | | | | + + + + + + + + | Specimen | + + | Tissue - Both | | anterior nares (body | | structure) | + + + + + + + | Performing | Address | City/State/Zipcode | Phone Number | | Organization | | | | + + + + + | [facility] | [address] | [place] [address] | [phone] | + + + + + Hemoglobin A1C (03/21/2019 3:33 PM PDT) + + + + + + | Component | Value | Ref Range | Performed | Pathologist | | | | | At | Signature | + + + + + + | Hemoglobin | 5.8Comment: HbA1c method | 4.0 - 6.0 % | [facility] | | | A1c | is certified by [facility] | | LABORATORY | | | | [...] | 120Comment: Estimated | <154 mg/dL | [facility] | | | Average | Average Glucose | | LABORATORY | | | Glucose | calculated from | | | | | | hemoglobin A1c by use of | | | | | | the ADArecommended | | | | | | formula.Testing | | | | | | performed at [facility], [address] | | | | | | [facility], | | | | | | [place] [address] | | | | + + + + + + + + | Specimen | + + | Blood | + + + + + + + | Performing | Address | City/State/Zipcode | Phone Number | | Organization | | | | + + + + + | [facility] | [address] | [place] [address] | [phone] | + + + + + CBC [...] | | | | | performed at [facility];[address] | | | | | | [address];[place] | | | | | | [address] | | | | + + + + + + + + | Specimen | + + | Blood | + + + + + + + | Performing | Address | City/State/Zipcode | Phone Number | | Organization | | | | + + + + + | [facility] | [address] | [place] [address] | [phone] | + + + + + Basic [...] | >60Comment: GFR <60: | >60 | [facility] | | | GFR | CHRONIC KIDNEY [...] | | | | | | [facility]D [facility] traceable | | | | | | equation.Testing | | | | | | performed at [facility];[address] | | | | | | [facility];[place], [place] | | | | | | [address] | | | | + + + + + + + + | Specimen | + + | Blood | + + + + + + + | Performing | Address | City/State/Zipcode | Phone Number | | Organization | | | | + + + + + | [facility] | [address] | [place] [address] | [phone] | + + + + + ECG [...]
--- OUTSIDE RECORDS SUMMARY | ~2019-05-11 | XMS | Clinical Summary ---
Demographics + + + | Address | [address] | | | [place] [address] | + + + | Home Phone [...] | Author | [facility] | | | and Khurramana | + + + | Organization | [facility] | [...] Team Providers + +------+ + | Care Invoice Clerk Name | Role | Phone | [...] | | | | e | | ([facility]) | | | | | | | | MISC | | | | | | | + + + +---------+------+------+-------+ | [place]-3 Fatty | Take 1 tablet by [...] | 0 | 10/0 | 11/1 | Expir | | tablet | mouth Daily for 42 | tablet | | 7/20 | 8/20 | ed | | | days. For [...] automatically from request for surgery | | [id number] | + + + + + | [...] Anesthesia | | Michela Eli | | 2018 | Event | | [...] | | 2018 | Visit | | [facility] | 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 (Primary | | | | | | Dx) | +--------+ + + + + | 03/16/ | Telephone | Orthopedic Surgery | Yvette Michelle, | Surgery Appointment | | 2018 | | | Tool Design Drafter | | +--------+ + + + + [...] | 2018 | Visit | | MD Skyler Foley[address] | | | | | | [place] | | | | | | [place] [address] | | | | | | [phone] | | | | | | | | +--------+---------+ + + + | 06/30/ | Office | Cardiology | Smitha Griffin DO | | | 2020 | Visit | | [address] | | | | | | [place] | | | | | | [address] | | | | | | | [...] /NA | | Mark Foley MD at [facility] | | | | | | /[id number] | | [facility] | | | | | | [...] /NA | | Mark Foley MD at [facility] | | | | | | /[id number] | | [facility] | | | | | | [...] /NA | | Mark Foley MD at [facility] | | | | | | /[id number] | | [facility] | | | | | | 802 | + +--------+--------+ +--------+--------+--------+ | Stent Bili Advnx 10fr 5cm - | Stent | | [place] | | | 3432 / | | [id number]: Qty: 1 on | | | SCIENTIFIC | | | / | | 09/26/2016 by Gregor Mccord | | | BIGG - MATTY | | | | Lucille Brock MD at [facility] | | | | | | | | [facility] | | | | | | | + +--------+--------+ +--------+--------+--------+ | Imp Hip Clushle Trident Ii | | Left: | RANDI | | 12/11/ | 702-04 | | 54e - SnaImplanted: Qty: 1 on | | Hip | MEDICAL - | | 2023 | -54E | | 03/29/2019 by Nan | | Lucille VILLA | | | /NA | | Mark oFley MD at [facility] | | | | | | /[id number] | | [facility] | | | | | | 901A | + +--------+--------+ +--------+--------+--------+ | Screw Hex Lp [id number] - | | Left: | RANDI | | 11/20/ | 7030-6 | | SnaImplanted: Qty: 1 on | | Hip | MEDICAL - | | 2023 | 530 | | 03/29/2019 by Nan, | | | ALLEN | | | /NA | | Mark Foley MD at [facility] | | | | | | /4RS | | [facility] | | | | | | [...] Testing | 65 - 99 mg/dL | [facility] | | | POC | performed at [facility];[address] | | LABORATORY | | | | [address];[place], [place] | | | | | | [address] | | | | + + + + + + + + | Specimen | + + | | + + + + + + + | Performing | Address | City/State/Zipcode | Phone Number | | Organization | | | | + + + + + | [facility] | [address] | [place] [address] | [phone] | + + + + + Hemoglobin [...] | | performed at [facility];[address] | | LABORATORY | | | | [facility];[place], [place] | | | | | | [address] | | | | + + + + + + + + | Specimen | + + | Blood | + + + + + + + | Performing | Address | City/State/Zipcode | Phone Number | | Organization | | | | + + + + + | [facility] | [address] | [place] [address] | [phone] | + + + + + XR [...] + + + | BB BAND | [id number] | | [facility] | | | | | | LABORATORY | | + + + + + + | BB BAND | Testing performed at | | LESLIE | | | | [facility];[address] | | LABORATORY | | | | [address];[place] [address] | | | | + + + + + + + + | Specimen | + + | Blood | + + + + + + + | Performing | Address | City/State/Zipcode | Phone Number | | Organization | | | | + + + + + | [facility] | [address] | [place] [address] | [phone] | + + + + + Neuraxial [...] | | performed at [facility] | | LABORATORY | | | | [address];[place] | | | | | | [address] | | | | + + + + + + + + | Specimen | + + | Tissue - Both | | anterior nares (body | | structure) | + + + + + + + | Performing | Address | City/State/Zipcode | Phone Number | | Organization | | | | + + + + + | [facility] | [address] | [place] [address] | [phone] | + + + + + CBC [...] at [facility];[address] | | | | | | [address];[place] | | | | | | [address] | | | | + + + + + + + + | Specimen | + + | Blood | + + + + + + + | Performing | Address | City/State/Zipcode | Phone Number | | Organization | | | | + + + + + | [facility] | [address] | [place] [address] | [phone] | + + + + + Hemoglobin A1C (03/21/2019 3:33 PM PDT) + + + + + + | Component | Value | Ref Range | Performed | Pathologist | | | | | At | Signature | + + + + + + | Hemoglobin | 5.8Comment: HbA1c method | 4.0 - 6.0 % | [facility] | | | A1c | [...] | 120Comment: Estimated | <154 mg/dL | [facility] | | | Average | Average Glucose | | LABORATORY | | | Glucose | calculated from | | | | | | hemoglobin A1c by use of | | | | | | the ADArecommended | | | | | | formula.Testing | | | | | | performed at [facility], [address] | | | | | | [facility], | | | | | | [place] [address] | | | | + + + + + + + + | Specimen | + + | Blood | + + + + + + + | Performing | Address | City/State/Zipcode | Phone Number | | Organization | | | | + + + + + | [facility] | [address] | [place] [address] | [phone] | + + + + + Basic [...] at [facility];[address] | | | | | | [facility];[place], [place] | | | | | | [address] | | | | + + + + + + + + | Specimen | + + | Blood | + + + + + + + | Performing | Address | City/State/Zipcode | Phone Number | | Organization | | | | + + + + + | [facility] | [address] [facility] | [place] [address] | [phone] | + + + + + ECG [...] | [employer] [facility] [facility] | [facility] | [id number] | 06/15/19 | | | Medica | | | HEALTH | | 17-Pre | | | re | | | MDCR | | sent | | | | + +--------+ +--------+-------+---------+--------+ | [employer] [facility] [facility] | [facility] | [id number] | | | | Medica | | [...] | 1936 | [phone] | [place] [address] | | | aissatou | | | 3 (Home) | | + +--------+ +--------+ + + | Scarlet Murguia | Person | Self [birth year] | [address] | | | al/Fam | | 1936 | [phone] | [place] [address] | | | aissatou | | | 3 (Home) | | + +--------+ +--------+ + + Advance Directives + + + + + | Type | Date Recorded | Patient | Explanation | | | | Cnc Mechanic | | + + + + + | Power of | | | | | Barrel Rifler | | | | + + + [...]
--- OUTSIDE RECORDS SUMMARY | ~2019-05-11 | XMS | Encounter Summary ---
Demographics + + + | Address | [address] | | | [place] [address] | + + + | Home Phone [...] | Author | [facility] | | | and Khurramana | + + + | Organization | [facility] | | | and [place] [...] Providers + +------+ + | Care Automobile Inspector Name | Role | Phone | [...] | Gregor Brock MD | [address] | | | | | abnormality | [address] | [place], | | | | | Procedures | [address], [place] | [place] | | | | | MRI MRCP | [address] | [address] | | | | | Liver wo | [place], [place] | Phone: | | | | | Contrast [place] | [address] | [phone] | | | | | MRI, | Phone: | Fax: | | | | | ABDOMEN | [phone] | [phone] | | | | | (MRI) | Fax: | | | | | | | [phone] | | +--------+--------+ + + + + [...] | Gregor Brock MD | [address] | | | | | abnormality | [address] | [place], | | | | | Procedures | [place], [place] | [place] | | | | | MRI MRCP | [address] | [address] | | | | | Liver wo | [place], [place] | Phone: | | | | | Contrast [place] | [address] | [phone] | | | | | MRI, | Phone: | Fax: | | | | | ABDOMEN | [phone] | [phone] | | | | | (MRI) | Fax: | | | | | | | [phone] | | +--------+--------+ + + + + Encounter Details +--------+ + + + + | Date | Type | Department | Care Team | Description | +--------+ + + + + | 10/30/ | Hospital | [facility] | Gregor Mccord MD | Bile duct | | 2017 | Encounter | MED CTR MRI [address] | [address], [place] | abnormality | | | | [place], | [address] [place] | | | | | [place] [address] | [address] | | | | | [phone] | | | +--------+ + + + [...] | | | | | | | ([facility]) | | | | | | | MISC | | | | | | + + + +---------+ + + | [place]-3 Fatty | Take 1 tablet by | [...] [place] | | | | | | [facility] [address] | | | | | | [phone] | | | | | | | | +--------+---------+ + + + | 06/30/ | Office | Cardiology | Smitha Griffin DO | | | 2019 | Visit | | [address] | | | | | | [place] | | | | | | [address] | | | | | | | [...] bile duct. COMPARISON: Lumbar spine dated | . JACEK | | 02/11/2016. PROTOCOL: Coronal T2 cemetery warden, axial T2 cemetery warden, coronal 3D | [facility] | | respiratory triggered, coronal [...] spine dated | | 02/11/2016.PROTOCOL: Coronal T2 cemetery warden, axial T2 cemetery warden, coronal 3D respiratory | | triggered,coronal T2 [...] A few more small subcentimeter | | [id number] cyst are seen within the left kidney [...] [address] 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
--- OUTSIDE RECORDS SUMMARY | ~2019-05-11 | XMS | Encounter Summary ---
Demographics + + + | Address | [address] | | | [place] [address] | + + + | Home Phone [...] Author | [facility] | | | and Khurramana | + + + | Organization | [facility] | | | [...] Team Providers + +------+ + | Care Applications Programmer Name | Role | Phone | + +------+ + | Susan Leos | PCP | | | PA-C | | | + +------+ + Encounter Details +--------+ + + + + | Date | Type | Department | Care Team | Description | +--------+ + + + + | 03/14/ | [facility] | [facility] | [place] | Left hip pain | | 2018 | Encounter | [address] | MD [address] | | | | [address] | [place] | | | | | [place] | [place] [address] | | | | | [address] | [phone] | | | | | [phone] | | | +--------+ + + + [...] | | | | | | | ([facility]) | | | | | | | MISC | | | | | | + + + +---------+ + + | [place]-3 Fatty | Take 1 tablet by | [...] | | | | | [place] [address] | | | | | | [phone] | | | | | | | | +--------+---------+ + + + | 06/30/ | Office | Cardiology | Smitha Griffin DO | | | 2019 | Visit | | [address] | | | | | | [place] | | | | | | [address] | | | | | | | [...]
--- OUTSIDE RECORDS SUMMARY | ~2019-05-11 | XMS | Encounter Summary ---
Demographics + + + | Address | [address] | | | [place] [address] | + + + | Home Phone [...] | Author | [facility] | | | and Khurramana | + + + | Organization | [facility] | | | and [place] [...] Team Providers + +------+ + | Care Corrugator Helper Name | Role | Phone | [...] | | | | [address] [facility] | | | | | | [address] [place] | | | | | | [address] | | | | | | [phone] | | | +--------+ + + + [...] [place] | | | | | | [place] [address] | | | | | | [phone] | | | | | | | | +--------+---------+ + + + | 06/30/ | Office | Cardiology | Smitha Griffin DO | | | 2019 | Visit | | [address] | | | | | | [place] [address] | | | | | | [address] | | | | | | | | +--------+---------+ + + + documented as of this encounter Visit Diagnoses Not on filedocumented in this encounter"
--- OUTSIDE RECORDS SUMMARY | ~2019-05-11 | XMS | Encounter Summary ---
Demographics + + + | Address | [address] | | | [place] [address] | + + + | Home Phone [...] Author | [facility] | | | and Khurramana | + + + | Organization | [facility] | | | and [place] [...] Team Providers + +------+ + | Care Building Code Administrator Name | Role | Phone | + +------+ + | Susan Leos | PCP | | | PA-C | | | + +------+ + Reason for Visit + + + | Reason | Comments | + + + | Imaging Only | MRI MRCP Liver without contrast scheduled | + + + Encounter Details +--------+ + + + + | Date | Type | Department | Care Team | Description | +--------+ + + + + | 10/22/ | Telephone | [facility] [place] | Gregor Mccord MD | Imaging Only (MRI | | 2017 | | GASTROENTEROLOGY | [address], [place] | MRCP Liver without | | | | [address] [place] | [address] [place] | contrast scheduled) | | | | [address] [place] | [address] | | | | | [address] | | | | | | [phone] | | | +--------+ + + + [...] | | | | | [place] [address] | | | | | | [phone] | | | | | | | | +--------+---------+ + + + | 06/30/ | Office | Cardiology | Smitha Griffin DO | | | 2019 | Visit | | [address] | | | | | | [place] | | | | | | [address] | | | | | | | | +--------+---------+ + + + documented as of this encounter Visit Diagnoses Not on filedocumented in this encounter"
--- OUTSIDE RECORDS SUMMARY | ~2019-05-11 | XMS | Encounter Summary ---
Demographics + + + | Address | [address] | | | [place] [address] | + + + | Home Phone [...] | Author | [facility] | | | and Khurramana | + + + | Organization | [facility] | | | and [...] Team Providers + +------+ + | Care Printed Circuit Boards Router Name | Role | Phone | + [...] | | | | [address] [facility] | | | | | | [address] [place] | | | | | | [address] | | | | | | [phone] | | | +--------+ + + + [...] | | | | | [place] [address] | | | | | | [phone] | | | | | | | | +--------+---------+ + + + | 06/30/ | Office | Cardiology | Smitha Griffin DO | | | 2019 | Visit | | [address] | | | | | | [place] | | | | | | [address] | | | | | | | | +--------+---------+ + + + documented as of this encounter Visit Diagnoses Not on filedocumented in this encounter"
--- OUTSIDE RECORDS SUMMARY | ~2019-05-11 | XMS | Encounter Summary ---
Demographics + + + | Address | [address] | | | [place] [address] | + + + | Home Phone [...] | [facility] | | | and Khurramana | + + + | Organization | [facility] | | | and [place] [...] Team Providers + +------+ + | Care Snowsport Instructor Name | Role | Phone | + [...] [place] | | | | | | [address] | | | | | | [phone] | | | +--------+ + + + [...] | | | | | | [facility] [address] | | | | | | [phone] | | | | | | | | +--------+---------+ + + + | 06/30/ | Office | Cardiology | Smitha Griffin DO | | | 2019 | Visit | | [address] | | | | | | [place] | | | | | | [address] | | | | | | | | +--------+---------+ + + + documented as of this encounter Visit Diagnoses + + | Diagnosis | + + | Other screening mammogram | + + documented in this encounter"
--- OUTSIDE RECORDS SUMMARY | ~2019-05-11 | XMS | Clinical Summary ---
Demographics + + + | Address | [address] | | | [place] [address] | + + + | Home Phone | | + + + | Preferred Language | Unknown | + + + | Marital Status | | + + + | Hinduism Affiliation | Unknown | + + + [...] Team Providers + +------+ + | Care Fws Faculty Assistant Name | Role | Phone | + +------+ + PCP | Unavailable | + +------+ + Source Comments FIORELLA is fully live on both Health system Ambulatory and Health system InPatient.[facility] Allergies Not on File Medications [...] | [employer] | xxxxxxxxx | Effect | [phone] | [address] | PPO | | | [employer]ICA | | nestor | 4 | [address] | | | | RE PPO | | for | | [place], | | | | | | all | | [place] [address] | | | | | | dates [...] | 1936 | [phone] | [place] [address] | | | aissatou | | | 3 (Home) | | + +--------+ +--------+ + +"
--- OUTSIDE RECORDS SUMMARY | ~2019-05-11 | XMS | Encounter Summary ---
Demographics + + + | Address | [address] | | | [place] [address] | + + + | Home Phone [...] | Author | [facility] | | | and Khurramana | + + + | Organization | [facility] | | | and [...] Team Providers + +------+ + | Care Red Hat Engineer Name | Role | Phone | + +------+ + | Susan Leos | PCP | | | PA-C | | | + +------+ + Encounter Details +--------+ + + + + | Date | Type | Department | Care Team | Description | +--------+ + + + + | 10/02/ | Episode | [facility] [place] | Sonali Garcai | | | 2016 | Changes | GASTROENTEROLOGY | ROBI Foley | | | | | [address] [facility] | | | | | | [address] [place] | | | | | | [address] | | | | | | [phone] | | | +--------+ + + + [...] [place] | | | | | | [place] [address] | | | | | | [phone] | | | | | | | | +--------+---------+ + + + | 06/30/ | Office | Cardiology | Smitha Griffin DO | | | 2019 | Visit | | [address] | | | | | | [place] | | | | | | [address] | | | | | | | | +--------+---------+ + + + documented as of this encounter Visit Diagnoses Not on filedocumented in this encounter"
--- OUTSIDE RECORDS SUMMARY | ~2019-05-11 | XMS | Encounter Summary ---
Demographics + + + | Address | [address] | | | [place] [address] | + + + | Home Phone [...] Author | [facility] Neal | | | and Khurramana | + + + | Organization | [facility] Neal | | | and [place] | [...] Team Providers + +------+ + | Care Pouako Kura Kaupapa Maori Name | Role | Phone | + [...] | | | | | from | [address] | [address] | | | | | [place] at | [address] | [address] | | | | | [facility] | John, | [place], [place] | | | | | Procedures | [place] | [address] Phone: | | | | | NEW PATIENT | [address] | [phone] | | | | | | Phone: | Fax: | | | | | | [phone] | [phone] | | | | | | Fax: | | | | | | | [phone] | | + +--------+ + + + + Encounter Details +--------+---------+ + + + | Date | Type | Department | Care Team | Description | +--------+---------+ + + + | 09/30/ | Office | [facility] | [place] | 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[place], [place]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 (Primary | | | | [address] | [place] [address] | Dx) | | | | [phone] | [phone] | | | | | | | [...] Procedure: ERCP; Surgeon: Gregor Mccord MD; Location: [facility] MEDICAL PROCEDURE UNIT ERCP N/A 10/14/2016 Procedure: ERCP w/ stent pull; Surgeon: Gregor Mccord MD; Location: [facility] MEDICAL PROCEDU RE UNIT PARTIAL HYSTERECTOMY 1971 [...] mouth Daily., Disp: , Rfl: Multiple Vitamins-Minerals ([facility]) MISC, Take by mouth., Disp: , Rfl: Ecorse-3 Fatty Acids (PRO NUTRIENTS OMEGA 3 PO), [...] Request - OR/ENDO/ASC/OB: Posterior Total Hip Arthroplasty: [employer] The patient has posttraumatic left hip [...] [place] | | | | | | [place] [address] | | | | | | [phone] | | | | | | | | +--------+---------+ + + + | 06/30/ | Office | Cardiology | Smitha Griffin DO | | | 2019 | Visit | | [address] | | | | | | [place] | | | | | | [id number] | | | | | | | [...]
--- OUTSIDE RECORDS SUMMARY | ~2019-05-11 | XMS | Encounter Summary ---
Demographics + + + | Address | [address] | | | [place] [address] | + + + | Home Phone [...] Author | [facility] Neal | | | and Khurramana | + + + | Organization | [facility] Neal | | | and [...] Team Providers + +------+ + | Care Patient Access Associate Name | Role | Phone | [...] | +--------+ + + + + | 11/03/ | Telephone | [facility] | Gregor Mccord MD | Other | | 2016 | | GASTROENTEROLOGY | [address], [place] | | | | | [address] [place] | [address] [place], [place] | | | | | [address] [place], [place] | [address] | | | | | [address] | | | | | | [phone] | | | +--------+ + + + [...] [place] | | | | | | [place] [address] | | | | | | [phone] | | | | | | | | +--------+---------+ + + + | 06/30/ | Office | Cardiology | Smitha Griffin DO | | | 2020 | Visit | | [address] | | | | | | [place] | | | | | | [address] | | | | | | | | +--------+---------+ + + + documented as of this encounter Visit Diagnoses Not on filedocumented in this encounter"
--- OUTSIDE RECORDS SUMMARY | ~2019-05-11 | XMS | Clinical Summary ---
Demographics + + + | Address | [address] | | | [place] [address] | + + + | Home Phone | | + + + | Preferred Language | Unknown | + + + | Marital Status | | + + + | Hoahaoism Affiliation | Unknown | + + + | Race | Unknown | + + + | Ethnic Group | Unknown | + + + Author + + + | Author | [facility] (Historical as of | | | 01-29-19) | + + + | Organization | [facility] (Historical as of | | | 01-29-19) | + + + | Address | Unknown | + + + | Phone | Unavailable | + + + Support + + + + + | Name | Relationship | Address | Phone | + + + + + | Alejo Murguia | DIRK | [address] | | | | | [place] [address] | | + + + + + Care Team Providers + +------+ + | Care Corrections Cadet Name | Role | Phone | + [...]
--- OUTSIDE RECORDS SUMMARY | ~2019-05-11 | XMS | Encounter Summary ---
Demographics + + + | Address | [address] | | | [place] [address] | + + + | Home Phone [...] + + | Author | [facility] Neal | | | and Khurramana | + + + | Organization | [facility] Neal | [...] Team Providers + +------+ + | Care Pump Operator Name | Role | Phone | [...] | | | | | | | AR ERCP DX | | | | | [...] + | 09/26/ | Anesthesia | [facility] | Enrique Llanos | | | 2016 | Event | MED CTR [facility] INTRA OP | MD Mc [address] | | | | | [address] | [facility] | | | | | [place] | [place] [address] | | | | | [address] | [phone] | | | | | [phone] | | | +--------+ + + + [...] [address] | | eral | Antecubital; [id number] | Patsy Dixon RN | Patsy Dixon [...] | | | | | [place] [address] | | | | | | [phone] | | | | | | | | +--------+---------+ + + + | 06/30/ | Office | Cardiology | Smitha Griffin DO | | | 2019 | Visit | | [address] | | | | | | [place] | | | | | | [address] | | | | | | | [...]
--- OUTSIDE RECORDS SUMMARY | ~2019-05-11 | XMS | Encounter Summary ---
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[place], [place]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 | | 2019 | | [address] | [phone] | | | | | [phone] | | | +--------+ + + + [...] Surgeon: Gregor Mccord MD; Location: [facility] MEDICAL PROCEDURE UNIT ERCP N/A 10/14/2016 Procedure: ERCP w/ stent pull; Surgeon: Gregor Mccord MD; Location: [facility] MEDICAL PROCEDU RE UNIT HARDWARE REMOVAL Left 03/29/2019 Procedure: REMOVE HARDWARE LOWER EXTREMITY-HIP; Surgeon: [place] MD; Location : [facility] OR PARTIAL HYSTERECTOMY 1971 RECTOCELE REPAIR 1991 TAILBONE 1973 broken, partial removal TONSILLECTOMY 1938 TOTAL HIP ARTHROPLASTY Left 03/29/2019 Procedure: Posterior Total Hip Arthroplasty; Surgeon: Mark [place] MD; Location: [facility] OR Allergies Allergen Reactions Erythromycin Hives,Rash [...] Code Follow up: Gus Orozco PA-C [address] [facility] [address] In 2 weeks Discharge Medications Changed Medications [...] | | | | | | | ([facility]) | | | | | | | MISC | | | | | | + + + +---------+ + + | Otis-3 Fatty | Take 1 tablet by | [...] might be different fr om the original. [facility] Progress Note Primary Care Physician: Susan [...] 05/16/ | Office | Orthopedic Surgery | Makr [place] | | | 2018 | Visit | | MD Alaina [address] | | | | | | [place] | | | | | | [place] [address] | | | | | | [phone] | | | | | | | | +--------+---------+ + + + | 06/30/ | Office | Cardiology | Smitha Griffin DO | | | 2019 | Visit | | [address] | | | | | | [place] | | | | | | [address] | | | | | | | [...] | | | POC | performed at [facility];[address] | | LABORATORY | | | | [address];[place], [place] | | | | | | [address] | | | | + + + + + + + + | Specimen | + + | | + + + + + + + | Performing | Address | City/State/Zipcode | Phone Number | | Organization | | | | + + + + + | [facility] | [address] | [place] [address] | [phone] | + + + + + POC [...] | | | POC | performed at [facility];[address] | | LABORATORY | | | | [address];[place] | | | | | | [address] | | | | + + + + + + + + | Specimen | + + | | + + + + + + + | Performing | Address | City/State/Zipcode | Phone Number | | Organization | | | | + + + + + | [facility] | [address] | [place] [address] | [phone] | + + + + + POC Glucose (03/30/2019 8:57 PM PDT) + + + + + + | Component | Value | Ref Range | Performed | Pathologist | | | | | At | Signature | + + + + + + | Glucose, | 98Comment: Testing | 65 - 99 mg/dL | [facility] | | | POC | performed at [facility];[address] | | LABORATORY | | | | [address];[place] | | | | | | [address] | | | | + + + + + + + + | Specimen | + + | | + + + + + + + | Performing | Address | City/State/Zipcode | Phone Number | | Organization | | | | + + + + + | [facility] | [address] | [place] [address] | [phone] | + + + + + Hemoglobin [...] [facility] | | | | performed at [facility];[address] | | LABORATORY | | | | [address];[place], [place] | | | | | | [address] | | | | + + + + + + + + | Specimen | + + | Blood | + + + + + + + | Performing | Address | City/State/Zipcode | Phone Number | | Organization | | | | + + + + + | [facility] | [address] | [place] [address] | [phone] | + + + + + POC [...] | | | POC | performed at [facility];[address] | | LABORATORY | | | | [address];[place] | | | | | | [address] | | | | + + + + + + + + | Specimen | + + | | + + + + + + + | Performing | Address | City/State/Zipcode | Phone Number | | Organization | | | | + + + + + | [facility] | [address] | [place] [address] | [phone] | + + + + + POC [...] | | | POC | performed at [facility];[address] | | LABORATORY | | | | [address];[place], [place] | | | | | | [address] | | | | + + + + + + + + | Specimen | + + | | + + + + + + + | Performing | Address | City/State/Zipcode | Phone Number | | Organization | | | | + + + + + | [facility] | [address] | [place] [address] | [phone] | + + + + + XR [...] | | | POC | performed at [facility];[address] | | LABORATORY | | | | [address];[place], [place] | | | | | | [address] | | | | + + + + + + + + | Specimen | + + | | + + + + + + + | Performing | Address | City/State/Zipcode | Phone Number | | Organization | | | | + + + + + | [facility] | [address] | [place] [address] | [phone] | + + + + + Type [...] + + + | [facility] | [id number] | | [facility] | | | | | | LABORATORY | | + + + + + + | BB B[facility] | Testing performed at | | [facility] | | | | [facility];[address] | | LABORATORY | | | | [address];[place] [address] | | | | + + + + + + + + | Specimen | + + | Blood | + + + + + + + | Performing | Address | City/State/Zipcode | Phone Number | | Organization | | | | + + + + + | [facility] | [address] | [place] [address] | [phone] | + + + + + POC Glucose (03/29/2019 6:42 AM PDT) + + + + + + | Component | Value | Ref Range | Performed | Pathologist | | | | | At | Signature | + + + + + + | Glucose, | 96Comment: Testing | 65 - 99 mg/dL | [facility] | | | POC | performed at [facility];[address] | | LABORATORY | | | | [address];[place], [place] | | | | | | [address] | | | | + + + + + + + + | Specimen | + + | | + + + + + + + | Performing | Address | City/State/Zipcode | Phone Number | | Organization | | | | + + + + + | [facility] | [address] | [place] [address] | [phone] | + + + + + documented [...]
--- OUTSIDE RECORDS SUMMARY | ~2019-05-11 | XMS | Encounter Summary ---
Demographics + + + | Address | [address] | | | [place] [address] | + + + | Home Phone [...] Team Providers + +------+ + | Care Bonderite Operator Name | Role | Phone | [...] Rd | | | | | | [place], [place] | | | | | | [address] | | | +--------+ + + + [...]
--- OUTSIDE RECORDS SUMMARY | ~2019-05-11 | XMS | Encounter Summary ---
Demographics + + + | Address | [address] | | | [place] [address] | + + + | Home Phone [...] | [facility] Neal | | | and Khurramana | + + + | Organization | [facility] Neal | | | and [place] [...] Team Providers + +------+ + | Care Second Vp Hr Assessment Name | Role | Phone | + [...] + + | 03/29/ | Anesthesia | [facility] | Michela Eli | | | 2019 | Event | [facility] | MD Jena [address] | | | | | OPER[address] RO[address] | [place], [place] | | | | | [facility] | [address] | | | | | [place], [place] | | | | | | [address] | | | | | | [phone] | | | +--------+ + + + [...] +----+---+ + + | | 0 | [place] | | | | 8 | 43-degrees [...] 03/30/19 0431 by | | eral | [id number] catheter system; | Paula Young RN | [...] | | | | | [place] [address] | | | | | | [phone] | | | | | | | | +--------+---------+ + + + | 06/30/ | Office | Cardiology | Smitha Griffin DO | | | 2019 | Visit | | [address] | | | | | | [place] | | | | | | [address] | | | | | | | [...]
--- OUTSIDE RECORDS SUMMARY | ~2019-05-11 | XMS | Encounter Summary ---
Demographics + + + | Address | [address] | | | [place] [address] | + + + | Home Phone [...] + + | Author | [facility] Neal | | | and Khurramana | + + + | Organization | [facility] Neal | | | and [place] [...] Providers + +------+ + | Care Inspector Pawnshop Detail Name | Role | Phone | [...] + + | 03/29/ | Anesthesia | [facility] | Michela Eli | | | 2019 | Event | [facility] | MD Jena [address] | | | | | [address] | [place], [place] | | | | | [facility] | [address] | | | | | [place], [place] | | | | | | [address] | | | | | | [phone] | | | +--------+ + + + [...] +----+---+ + + | | 0 | [place] | | | | 8 | 43-degrees [...] 03/30/19 0431 by | | eral | [id number] catheter system; | Paula Young RN | [...] | | | | | [place] [address] | | | | | | [phone] | | | | | | | | +--------+---------+ + + + | 06/30/ | Office | Cardiology | Smitha Griffin DO | | | 2019 | Visit | | [address] | | | | | | [place] | | | | | | [address] | | | | | | | [...]
--- OUTSIDE RECORDS SUMMARY | ~2019-05-11 | XMS | Encounter Summary ---
Demographics + + + | Address | [address] | | | [place] [address] | + + + | Home Phone [...] Author | [facility] Neal | | | and Khurramana | + + + | Organization | [facility] Neal | | [...] Providers + +------+ + | Care Powder Carrier Name | Role | Phone | + [...] | 11/03/ | Telephone | [facility] | Gregor Mccord MD | Other | | 2016 | | GASTROENTEROLOGY | [address], [place] | | | | | [address] [place] | [address] [place], [place] | | | | | [address] [place], [place] | [address] | | | | | [address] | | | | | | [phone] | | | +--------+ + + + [...] [place] | | | | | | [place] [address] | | | | | | [phone] | | | | | | | | +--------+---------+ + + + | 06/30/ | Office | Cardiology | Smitha Griffin DO | | | 2020 | Visit | | [address] | | | | | | [place] | | | | | | [address] | | | | | | | | +--------+---------+ + + + documented as of this encounter Visit Diagnoses Not on filedocumented in this encounter"
--- OUTSIDE RECORDS SUMMARY | ~2019-05-11 | XMS | Encounter Summary ---
Demographics + + + | Address | [address] | | | [place] [address] | + + + | Home Phone [...] + + | Author | [facility] Neal | | | and Khurramana | + + + | Organization | [facility] Neal [...] Team Providers + +------+ + | Care Assistant Plant Control Operator Name | Role | Phone | + +------+ + | Susan Leos | PCP | | | PA-C | | | + +------+ + Encounter Details +--------+ + + + + | Date | Type | Department | Care Team | Description | +--------+ + + + + | 02/28/ | Hospital | [facility] | Malcom Mojica | Peripheral | | 2016 | Encounter | [facility] | MD Desi SMITH | polyneuropathy (HCC) | | | | [address] [place] | [address] [place] | (Primary Dx) | | | | [place] | [address] | | | | | [address] | | | | | | [phone] | | | +--------+ + + + [...] | | | | | ([facility]) | | | | | | | MISC | | | | | | + + + +---------+--------+ + | [place]-3 Fatty | Take 1 tablet by [...] | | | | | [place] [address] | | | | | | [phone] | | | | | | | | +--------+---------+ + + + | 06/30/ | Office | Cardiology | Smitha Griffin DO | | | 2019 | Visit | | [address] | | | | | | [place] | | | | | | [address] | | | | | | | [...] | | | | | | decisions. [facility] | | | | | | is [...] [place] | | | | | | [address] | | | | + + + [...] [address] | [place] [address] | [phone] | + + + + + Vitamin [...] Vitamin | | | | | | E8ppxaicvipjl.This test | | | | | | [...] [place] | | | | | | [address] | | | | + + + [...] [address] | [place] [address] | [phone] | + + + + + documented in this encounter Visit Diagnoses + + | Diagnosis | + + | Peripheral polyneuropathy - Primary Unspecified hereditary and idiopathic peripheral | | neuropathy | + + documented in this encounter"
--- OUTSIDE RECORDS SUMMARY | ~2019-05-11 | XMS | Encounter Summary ---
Demographics + + + | Address | [address] | | | [place] [address] | + + + | Home Phone [...] Author | [facility] Neal | | | and Khurramana | + + + | Organization | [facility] Neal | | [...] Team Providers + +------+ + | Care Capacity Planning Engineer Name | Role | Phone | [...] [place] | | | | | | [address] | | | | | | [phone] | | | +--------+ + + + [...] [place] | | | | | | [place] [address] | | | | | | [phone] | | | | | | | | +--------+---------+ + + + | 06/30/ | Office | Cardiology | Smitha Griffin DO | | | 2019 | Visit | | [address] | | | | | | [place] | | | | | | [address] | | | | | | | | +--------+---------+ + + + documented as of this encounter Visit Diagnoses + + | Diagnosis | + + | Other screening mammogram | + + documented in this encounter"
--- OUTSIDE RECORDS SUMMARY | ~2019-05-11 | XMS | Encounter Summary ---
Demographics + + + | Address | [address] | | | [place] [address] | + + + | Home Phone [...] | Author | [facility] Neal | | | and Khurramana | + + + | Organization | [facility] Neal | | | [...] Team Providers + +------+ + | Care Auxiliary Powerplant Operator Name | Role | Phone | + +------+ + | Susan Leos | PCP | | | PA-C | | | + +------+ + Encounter Details +--------+ + + + + | Date | Type | Department | Care Team | Description | +--------+ + + + + | 02/24/ | Hospital | [facility] | Malcom Mojica | Peripheral | | 2016 | Encounter | [facility] LAB[facility] | MD Desi SMITH | polyneuropathy (HCC) | | | | [address] [place] | [address] [place] | | | | | [place] | [address] | | | | | [address] | | | | | | [phone] | | | +--------+ + + + [...] | | | | | | | ([facility]) | | | | | | | MISC | | | | | | + + + +---------+--------+ + | [place]-3 Fatty | Take 1 tablet by | [...] | | | | | [place] [address] | | | | | | [phone] | | | | | | | | +--------+---------+ + + + | 06/30/ | Office | Cardiology | Smitha Griffin DO | | | 2019 | Visit | | [address] | | | | | | [place] | | | | | | [address] | | | | | | | [...] ST. | [address] | [place], [place] | [phone] | | [facility] | | [address] | | | - LABORATORY | | [...] [place] | | | | | | [address] | | | | + + + [...] | [address] | [place] [address] | [phone] | + + + + + Protein [...] [id number] | [facility] | |02-27-16 | [facility] | | | - LABORATORY | + + + + + + + + | Performing | Address | City/State/Zipcode | Phone Number | | Organization | | | | + + + + + | [facility] | [address] | [place] | [phone] | | [facility] | | [address] | | | - LABORATORY | | [...] [place] | | | | | | [address] | | | | + + + [...] [address] | [place] [address] | [phone] | + + + + + Methylmalonic [...] [place] | | | | | | [address] | | | | + + + [...] [address] | [place] [address] | [phone] | + + + + + Vitamin [...] FERRER. | [address] | [place] | [phone] | | [facility] | | [address] | | | - LABORATORY | | | | + + + + + documented in this encounter Visit Diagnoses + + | Diagnosis | + + | Peripheral polyneuropathy Unspecified hereditary and idiopathic peripheral neuropathy | + + documented in this encounter"
--- OUTSIDE RECORDS SUMMARY | ~2019-05-11 | XMS | Encounter Summary ---
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[address] | [address] | | | | | hesis at | Phone: | Phone: | | | | | L4-L5 level | [phone] | [phone] | | | | | Bilateral | Fax: | Fax: | | | | | lumbar | [phone] | [phone] | | | | | radiculopath | [...] | disc disease), | | | | [place], | [place], | lumbar (Primary Dx); | | | | [place] [address] | [place] [address] | 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
--- OUTSIDE RECORDS SUMMARY | ~2019-05-11 | XMS | Encounter Summary ---
Demographics + + + | Address | [address] | | | [place] [address] | + + + | Home Phone [...] | Author | [facility] Neal | | | and Khurramana | + + + | Organization | [facility] Neal [...] Providers + +------+ + | Care Professional System Administrator Name | Role | Phone | [...] [place] | | | | | | [place], | [address] [place] | | | | | | [place] | [place], [place] | | | | | | [address] | [address] | | | | | | Phone: | Phone: | | | | | | [phone] | [phone] | | | | | | Fax: | Fax: | | | | | | [phone] | [phone] | +--------+--------+ + + + + Encounter Details +--------+---------+ + + + | Date | Type | Department | Care Team | Description | +--------+---------+ + + + | 04// | Office | [facility] | Gregor Mccord MD | Choledocholithiasis | | 2017 | Visit | GASTROENTEROLOGY | [address], [place] | (Primary Dx) | | | | [address] [place] | [address] [place], [place] | | | | | [address] [place], [place] | [address] | | | | | [address] | | | | | | [phone] | | | +--------+---------+ + + + [...] 3 Years of Education: 12 Occupational History [employer] Social History Main Topics Smoking status: [...] | | | | | [place] [address] | | | | | | [phone] | | | | | | | | +--------+---------+ + + + | 06/30/ | Office | Cardiology | Smitha Griffin DO | | | 2019 | Visit | | [address] | | | | | | [place] | | | | | | [address] | | | | | | | | +--------+---------+ + + + documented as of this encounter Visit Diagnoses + + | Diagnosis | + + | Choledocholithiasis - Primary Calculus of bile duct without mention of cholecystitis | | or obstruction | + + documented in this encounter
--- OUTSIDE RECORDS SUMMARY | ~2019-05-11 | XMS | Encounter Summary ---
Demographics + + + | Address | [address] | | | [place] [address] | + + + | Home Phone [...] + | Author | [facility] Neal | | | and Khurramana | + + + | Organization | [facility] Neal | | [...] Team Providers + +------+ + | Care Microarray Analyst Name | Role | Phone | [...] | | | | [address] [facility] | | | | | | [address] [place] | | | | | | [address] | | | | | | [phone] | | | +--------+ + + + [...] | | | | | [place] [address] | | | | | | [phone] | | | | | | | | +--------+---------+ + + + | 06/30/ | Office | Cardiology | Smitha Griffin DO | | | 2019 | Visit | | [address] | | | | | | [place] | | | | | | [address] | | | | | | | | +--------+---------+ + + + documented as of this encounter Visit Diagnoses Not on filedocumented in this encounter"
--- OUTSIDE RECORDS SUMMARY | ~2019-05-11 | XMS | Encounter Summary ---
Demographics + + + | Address | [address] | | | [place] [address] | + + + | Home Phone [...] | Author | [facility] Neal | | | and Khurramana | + + + | Organization | [facility] Neal | [...] Team Providers + +------+ + | Care Commodity Buyer Name | Role | Phone | + [...] | | | | | | | [place] ERCP DX | | | | | [...] + + | 09/26/ | Hospital | [facility] | Gregor Mccord MD | | | 2017 | Encounter | MED CTR XRAY [address] | [address] | | | | | [place] | [address] | | | | | [place] [address] | [id number] | | | | | [phone] | | | +--------+ + + + [...] | | | | | | | ([facility]) | | | | | | | MISC | | | | | | + + + +---------+ + + | Cameron-3 Fatty | Take 1 [...] [place] | | | | | | [place] [address] | | | | | | [phone] | | | | | | | | +--------+---------+ + + + | 06/30/ | Office | Cardiology | Smitha Griffin DO | | | 2019 | Visit | | [address] | | | | | | [place] | | | | | | [address] | | | | | | | [...]
--- OUTSIDE RECORDS SUMMARY | ~2019-05-11 | XMS | Encounter Summary ---
Demographics + + + | Address | [address] | | | [place] [address] | + + + | Home Phone [...] Author | [facility] Neal | | | and Khurramana | + + + | Organization | [facility] Neal | | [...] Providers + +------+ + | Care Customer Care Assistant Name | Role | Phone | [...] Post-op Question | | 2018 | | [place] [address] | MD Alaina [address] | | | | | BLVD [place], [place] | [address]VD [place] [address] | | | | | [address] | [place] [address] | | | | | [phone] | [phone] | | | | | | | [...] [place] | | | | | | [place] [address] | | | | | | [phone] | | | | | | | | +--------+---------+ + + + | 06/30/ | Office | Cardiology | Smitha Griffin DO | | | 2020 | Visit | | [address] | | | | | | [place] | | | | | | [address] | | | | | | | | +--------+---------+ + + + documented as of this encounter Visit Diagnoses Not on filedocumented in this encounter"
--- OUTSIDE RECORDS SUMMARY | ~2019-05-11 | XMS | Encounter Summary ---
Demographics + + + | Address | [address] | | | [place] [address] | + + + | Home Phone | | + + + | Preferred Language | Unknown | + + + | Marital Status | | + + + | Sikhism Affiliation | Unknown | + + + | Race | White | + + + | Ethnic Group | Not or | + + + Author + + + | Author | [facility] | + + + | Organization | [facility] | + + + [...] Team Providers + +------+ + | Care Boat And Plant Utility Supervisor Name | Role | Phone | [...] Clinic Dermatology | | | | | [facility] | [address] [facility] | | | | | and Healing, | [place] | | | | | [facility] | [id number] | | | | | Floor [place], [place] | | | | | | [address] | | | | | | [phone] | | | +--------+ + + + [...] | OLOGY | | | | Case: [id number] | | | | | | | [...] | [facility] | [address] | [place] [address] | | | DERMATOPATHOLOGY | [address] | | | + + + + + documented in this encounter Visit Diagnoses + + | Diagnosis | + + | Neoplasm of uncertain behavior of skin | + + documented in this encounter
--- OUTSIDE RECORDS SUMMARY | ~2019-05-11 | XMS | Encounter Summary ---
Demographics + + + | Address | [address] | | | [place] [address] | + + + | Home Phone | | + + + | Preferred Language | Unknown | + + + | Marital Status | | + + + | Hindu Affiliation | Unknown | + + + [...] + +------+ + | Care Director Of Quality Name | Role | Phone | + [...] [address] | | | | | | [facility] | | | | | | and Healing, | | | | | | Building [address], [address]th | | | | | | Floor [place], [place] | | | | | | [address] | | | | | | [phone] | | | +--------+ + + + [...] | | | | | labeled Blade Scralet:A: | | | | | | Specimen is labeled "L | | | | | | jawline" and consists of | | | | | | an irregular shave | | | | | | ofpapular white-mitchell | | | | | | skin, [id number]. The | | | | | | [...] [facility] | [address], [address] | [place] [address] | | | DERMATOPATHOLOGY | [address] | | | + + + + + documented in this encounter Visit Diagnoses + + | Diagnosis | + + | Other melanin hyperpigmentation | + + documented in this encounter
--- OUTSIDE RECORDS SUMMARY | ~2019-05-11 | XMS | Encounter Summary ---
Demographics + + + | Address | [address] | | | [place] [address] | + + + | Home Phone [...] | Author | [facility] Neal | | | and Khurramana | + + + | Organization | [facility] Neal | | | and [...] Providers + +------+ + | Care Automotive Window Tinter Name | Role | Phone | + [...] | | Physical | Diagnoses | | [place], | | | | Medicine and | Disturbance | Ray, | MD Malcom | | | | Rehabilitatio | of skin | [place], | [address] | | | | n | sensation | PA-C [address] | [address] | | | | | Procedures | [address] | [place] | | | | | [place] MOTOR | [place] | [address] Phone: | | | | | &/SENS 1-2 | [address] | [phone] | | | | | NRV CNDJ | Phone: | Fax: | | | | | PRECONF | [phone] | [phone] | | | | | ELTRODE LIMB | Fax: | | | | | | NM NEEDLE | [phone] | | | | | | EMG EA | | | | | | | EXTREMITY | | | | | | | W/PARASPINL | | | | | | | AREA LIMITED | | | | | | | NM EMG, | | | | | | | NEEDLE, TWO | | | | | | | LIMBS NM | | | | | | | MOTOR &/SENS | | | | | | | 3-4 NRV | | | | | | | CNDJ PRECONF | | | | | | | ELTRODE | | | | | | | LIMB NM | | | | | | | MOTOR &/SENS | | | | | | | 5-6 NRV | | | | | | | CNDJ PRECONF | | | | | | | ELTRODE | | | | | | | LIMB NM | | | | | | | NEEDLE EMG | | | | | | | EA EXTREMTY | | | | | | | W/PARASPINL | | | | | | | AREA | | | | | | | COMPLETE NM | | | | | | | [...] | polyneuropathy (HCC) | | | | [place], | [address] [place] | (Primary Dx); Hyper | | | | [place] [address] | [id number] | reflexia | | | | [phone] | | | +--------+ + + + [...] | | | | | [place] [address] | | | | | | [phone] | | | | | | | | +--------+---------+ + + + | 06/30/ | Office | Cardiology | Smitha Griffin DO | | | 2019 | Visit | | [address] | | | | | | [place] | | | | | | [address] | | | | | | | [...] + | Malcom Mojica MD 02/26/2016 14:11 [facility] | | | Physician Group Musculoskeletal, Sports and Spine, Physiatry [place] | | | Medical Complex [address] [place] [address] Ph: | | | Test Date: 02/25/2016 | | | Patient Name: Scarlet Murguia : 1935 Physician: Tomás Mojica, | | | MR #: [id number] Sex: Female Referring Physician: [place] | | [...] | | | testing done by a paper latcher and she was diagnosed with a | [...] Malcom Mojica MD Diplomate, | | | [place] Board [employer] and Rehabilitation. | [...] [address] | [place] | [phone] | | [facility] | | [address] | | | - LABORATORY | | [...] | | | | | [place], [place] | | | | | | [address] | | | | + + + [...] | [address] | [place] [address] | [phone] | + + + + + Protein [...] ELP Gamma | 9.7 | % | [facility] | | | Globulin % | | [...] MD02-27-16 | [facility] | |02-27-16 | [facility] | | | - LABORATORY | + + + + + + + + | Performing | Address | City/State/Zipcode | Phone Number | | Organization | | | | + + + + + | [facility] [facility] | [address] | [place] | [phone] | | [facility] | | [address] | | | - LABORATORY | | [...] [place] | | | | | | [address] | | | | + + + + + + + + | Specimen | + + | Blood specimen | | (specimen) | + + + + + + + | Performing | Address | City/State/Zipcode | Phone Number | | Organization | | | | + + + + + | [facility] | [address] | [place] [address] | [phone] | + + + + + Methylmalonic [...] [place] | | | | | | [address] | | | | + + + + + + + + | Specimen | + + | Blood specimen | | (specimen) | + + + + + + + | Performing | Address | City/State/Zipcode | Phone Number | | Organization | | | | + + + + + | [facility] | [address] | [place] [address] | [phone] | + + + + + Vitamin [...] [address] | [place] | [phone] | | [facility] | | [address] | | | - LABORATORY | | | | + + + + + documented in this encounter Visit Diagnoses + + | Diagnosis | + + | Peripheral polyneuropathy - Primary Unspecified hereditary and idiopathic peripheral | | neuropathy | + + | Hyper reflexia Abnormal reflex | + + documented in this encounter
--- OUTSIDE RECORDS SUMMARY | ~2019-05-11 | XMS | Encounter Summary ---
Demographics + + + | Address | [address] | | | [place] [address] | + + + | Home Phone [...] Author | [facility] Neal | | | and Khurramana | + + + | Organization | [facility] Neal [...] Team Providers + +------+ + | Care Jacket Preparer Name | Role | Phone | + [...] [place] | | | | | [address] | [place] [address] | | | | | [phone] | [phone] | | | | | | | [...] | | | | | [place] [address] | | | | | | [phone] | | | | | | | | +--------+---------+ + + + | 06/30/ | Office | Cardiology | Smitha Griffin DO | | | 2019 | Visit | | [address] | | | | | | [place] | | | | | | [address] | | | | | | | | +--------+---------+ + + + documented as of this encounter Visit Diagnoses Not on filedocumented in this encounter"
--- OUTSIDE RECORDS SUMMARY | ~2019-05-11 | XMS | Encounter Summary ---
Demographics + + + | Address | [address] | | | [place] [address] | + + + | Home Phone [...] + + | Author | [facility] | | | and Khurramana | + + + | Organization | [facility] | | [...] Team Providers + +------+ + | Care Solar Designer/Installer Name | Role | Phone | + [...] [place] | | | | | | [address] | | | | | | [phone] | | | +--------+ + + + [...] [place] | | | | | | [facility] [address] | | | | | | [phone] | | | | | | | | +--------+---------+ + + + | 06/30/ | Office | Cardiology | Smitha Griffin DO | | | 2019 | Visit | | [address] | | | | | | [place] | | | | | | [address] | | | | | | | | +--------+---------+ + + + documented as of this encounter Visit Diagnoses + + | Diagnosis | + + | Other screening mammogram | + + documented in this encounter"
--- OUTSIDE RECORDS SUMMARY | ~2019-05-11 | XMS | Encounter Summary ---
Demographics + + + | Address | [address] | | | [place] [address] | + + + | Home Phone [...] Author | [facility] Neal | | | and Khurramana | + + + | Organization | [facility] | | [...] Team Providers + +------+ + | Care Salon/Spa Manager Name | Role | Phone | + +------+ + | Susan Leos | PCP | | | PA-C | | | + +------+ + Encounter Details +--------+ + + + + | Date | Type | Department | Care Team | Description | +--------+ + + + + | 02/24/ | Hospital | [facility] | Malcom Mojica | Peripheral | | 2016 | Encounter | MED CTR LABORATORY | MD Desi SMITH | polyneuropathy (HCC) | | | | [address] | [address] [place] | | | | | [place] | [address] | | | | | [address] | | | | | | [phone] | | | +--------+ + + + [...] | | ([facility] Packet[employer]) | | | | | | | MISC | | | | | | + + + +---------+--------+ + | Berkeley-3 Fatty | Take 1 tablet by | [...] | | | | | [place] [address] | | | | | | [phone] | | | | | | | | +--------+---------+ + + + | 06/30/ | Office | Cardiology | Smitha Griffin DO | | | 2019 | Visit | | [address] | | | | | | [place] | | | | | | [address] | | | | | | | [...] ST. | [address] | [place], [place] | [phone] | | [facility] | | [address] | | | - LABORATORY | | [...] [place] | | | | | | [address] | | | | + + + [...] | [address] | [place] [address] | [phone] | + + + + + Protein [...] MD02-27-16 | [facility] | |02-27-16 | [facility] | | | - LABORATORY | + + + + + + + + | Performing | Address | City/State/Zipcode | Phone Number | | Organization | | | | + + + + + | [facility] | [address] | [place] | [phone] | | [facility] | | [address] | | | - LABORATORY | | [...] [place] | | | | | | [address] | | | | + + + [...] [address] | [place] [address] | [phone] | + + + + + Methylmalonic [...] [place] | | | | | | [address] | | | | + + + [...] [address] | [place] [address] | [phone] | + + + + + Vitamin [...] FERRER. | [address] | [place] | [phone] | | [facility] | | [address] | | | - LABORATORY | | | | + + + + + documented in this encounter Visit Diagnoses + + | Diagnosis | + + | Peripheral polyneuropathy Unspecified hereditary and idiopathic peripheral neuropathy | + + documented in this encounter"
--- OUTSIDE RECORDS SUMMARY | ~2019-05-11 | XMS | Encounter Summary ---
Demographics + + + | Address | [address] | | | [place] [address] | + + + | Home Phone [...] + + | Author | [facility] Neal | | | and Khurramana | + + + | Organization | [facility] Neal | | | and [place] | [...] Providers + +------+ + | Care Director Account Management Name | Role | Phone | + [...] | | | | | from | [address] | [address] | | | | | [place] at | [address] | [address] | | | | | [facility] | [place], | [place], [place] | | | | | Procedures | [place] | [address] Phone: | | | | | NEW PATIENT | [address] | [phone] | | | | | | Phone: | Fax: | | | | | | [phone] | [phone] | | | | | | Fax: | | | | | | | [phone] | | + +--------+ + + + + Encounter Details +--------+---------+ + + + | Date | Type | Department | Care Team | Description | +--------+---------+ + + + | 09/30/ | Office | [facility] | Mark [place] | 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[place], [place]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 (Primary | | | | [address] | [place] [address] | Dx) | | | | [phone] | [phone] | | | | | | | [...] Procedure: ERCP; Surgeon: Gregor Mccord MD; Location: [facility] MEDICAL PROCEDURE UNIT ERCP N/A 10/14/2016 Procedure: ERCP w/ stent pull; Surgeon: Gregor Mccord MD; Location: [facility] MEDICAL PROCEDU RE UNIT PARTIAL HYSTERECTOMY [...] mouth Daily., Disp: , Rfl: Multiple Vitamins-Minerals ([facility]) MISC, Take by mouth., Disp: , Rfl: Ogden-3 Fatty Acids (PRO NUTRIENTS OMEGA 3 PO), [...] Request - OR/ENDO/ASC/OB: Posterior Total Hip Arthroplasty: [employer] The patient has posttraumatic left hip [...] [place] | | | | | | [place] [address] | | | | | | [phone] | | | | | | | | +--------+---------+ + + + | 06/30/ | Office | Cardiology | Smitha Griffin DO | | | 2019 | Visit | | [address] | | | | | | [place] | | | | | | [address] | | | | | | | [...]
--- OUTSIDE RECORDS SUMMARY | ~2019-05-11 | XMS | Clinical Summary ---
[...] | Author | [facility] Neal | | | and Khurramana | + + + | Organization | [facility] | | | [...] Providers + +------+ + | Care Log Rafter Name | Role | Phone | + [...] | | | | e | | ([facility]) | | | | | | | | MISC | | | | | | | + + + +---------+------+------+-------+ | [place]-3 Fatty | Take 1 tablet by [...] automatically from request for surgery | | [id number] | + + + + + | [...] Appointment | | 2018 | | | Candy Puller | | +--------+ + + + + [...] [place] | | | | | | [place] [address] | | | | | | [phone] | | | | | | | | +--------+---------+ + + + | 06/30/ | Office | Cardiology | Smitha Griffin DO | | | 2020 | Visit | | [address] | | | | | | [place] | | | | | | [address] | | | | | | | [...] | Mark Foley MD at [facility] | | | | | | /[id number] | | [facility] | | | | | [...] | Mark Foley MD at [facility] | | | | | | /[id number] | | [facility] | | | | | [...] | Mark Foley MD at [facility] | | | | | | /[address] | | [facility] | | | | | | 802 | + +--------+--------+ +--------+--------+--------+ | Stent Bili Advnx 10fr 5cm - | Stent | | [place] | | | 3432 / | | [id number]: Qty: 1 on | | | SCIENTIFIC | | | / | | 09/26/2016 by Gregor Mccord | | | BIGG - MATTY | | | | Lucille Brock MD at [facility] | | | | | | [...] | Mark Foley MD at [facility] | | | | | | /[address] | | [facility] | | | | | | 901A | + +--------+--------+ +--------+--------+--------+ | Screw Hex Lp [id number] - | | Left: | RANDI | | 11/20/ | 7030-6 | | SnaImplanted: Qty: 1 on | | Hip | MEDICAL - | | 2023 | 530 | | 03/29/2019 by Nan, | | | ALLEN | | | /NA | | Mark Foley MD at [facility] | | | | | | /4RS | | [facility] | | | | | [...] Testing | 65 - 99 mg/dL | [facility] | | | POC | performed at [facility];[address] | | LABORATORY | | | | [address];[place], [place] | | | | | | [address] | | | | + + + + + + + + | Specimen | + + | | + + + + + + + | Performing | Address | City/State/Zipcode | Phone Number | | Organization | | | | + + + + + | [facility] | [address] | [place] [address] | [phone] | + + + + + Hemoglobin [...] [facility] | | | | performed at [facility];8 | | LABORATORY | | | | [facility];[place], [place] | | | | | | [address] | | | | + + + + + + + + | Specimen | + + | Blood | + + + + + + + | Performing | Address | City/State/Zipcode | Phone Number | | Organization | | | | + + + + + | [facility] | [address] | [place] [address] | [phone] | + + + + + XR [...] + + + | BB BAND | [id number] | | [facility] | | | | | | LABORATORY | | + + + + + + | BB BAND | Testing performed at | | LES[place]IE | | | | [facility];[address] | | LABORATORY | | | | [address];[place] [address] | | | | + + + + + + + + | Specimen | + + | Blood | + + + + + + + | Performing | Address | City/State/Zipcode | Phone Number | | Organization | | | | + + + + + | [facility] | [address] | [place] [address] | [phone] | + + + + + Neuraxial [...] [facility] | | | | performed at [facility] | | LABORATORY | | | | [address];[place] | | | | | | [address] | | | | + + + + + + + + | Specimen | + + | Tissue - Both | | anterior nares (body | | structure) | + + + + + + + | Performing | Address | City/State/Zipcode | Phone Number | | Organization | | | | + + + + + | [facility] | [address] | [place] [address] | [phone] | + + + + + CBC [...] | | | | | performed at [facility];[address] | | | | | | [address];[place] | | | | | | [address] | | | | + + + + + + + + | Specimen | + + | Blood | + + + + + + + | Performing | Address | City/State/Zipcode | Phone Number | | Organization | | | | + + + + + | [facility] | [address] | [place] [address] | [phone] | + + + + + Hemoglobin A1C (03/21/2019 3:33 PM PDT) + + + + + + | Component | Value | Ref Range | Performed | Pathologist | | | | | At | Signature | + + + + + + | Hemoglobin | 5.8Comment: HbA1c method | 4.0 - 6.0 % | [facility] | | | A1c | [...] | 120Comment: Estimated | <154 mg/dL | [facility] | | | Average | Average Glucose | | LABORATORY | | | Glucose | calculated from | | | | | | hemoglobin A1c by use of | | | | | | the ADArecommended | | | | | | formula.Testing | | | | | | performed at [facility], [address] | | | | | | [facility], | | | | | | [place] [address] | | | | + + + + + + + + | Specimen | + + | Blood | + + + + + + + | Performing | Address | City/State/Zipcode | Phone Number | | Organization | | | | + + + + + | [facility] | [address] | [place] [address] | [phone] | + + + + + Basic [...] | | | | | | MDRD [facility] traceable | | | | | | equation.Testing | | | | | | performed at [facility];[address] | | | | | | [facility];[place], [place] | | | | | | [address] | | | | + + + + + + + + | Specimen | + + | Blood | + + + + + + + | Performing | Address | City/State/Zipcode | Phone Number | | Organization | | | | + + + + + | [facility] | [address] [facility] | [place] [address] | [phone] | + + + + + ECG [...] | [facility] | [facility] | [id number] | 06/15/19 | | | Medica | | | HEALTH | | 17-Pre | | | re | | | MDCR | | sent | | | | + +--------+ +--------+-------+---------+--------+ | [facility] | [facility] | [id number] | | | | Medica | | [...] | 1936 | [phone] | [place] [address] | | | aissatou | | | 3 (Home) | | + +--------+ +--------+ + + | Scarlet Murguia | Person | Self | [birth year] | [address] | | | al/Fam | | 1936 | [phone] | [place] [address] | | | aissatou | | | 3 (Home) | | + +--------+ +--------+ + + Advance Directives + + + + + | Type | Date Recorded | Patient | Explanation | | | | Durability Technician | | + + + + + | Power of | | | | | Supervisor Mechanic Boilermaking | | | | + + + [...]
--- OUTSIDE RECORDS SUMMARY | ~2019-05-11 | XMS | Encounter Summary ---
Demographics + + + | Address | [address] | | | [place] [address] | + + + | Home Phone [...] Author | [facility] | | | and Khurramana | + + + | Organization | [facility] Neal | | | and [...] Team Providers + +------+ + | Care Python Engineer Name | Role | Phone | [...] | | | | | (degenerativ | [id number] | | | | | | e disc | Phone: | | | | | | disease), | [phone] | | | | | | lumbar | Fax: | | | | | | Bilateral | [phone] | | | | | | lumbar [...] [place], | | | | | [place] [address] | [place] [address] | | | | | [phone] | [phone] | | | | | | | [...] [place] | | | | | | [place] [address] | | | | | | [phone] | | | | | | | | +--------+---------+ + + + | 06/30/ | Office | Cardiology | Smitha Griffin DO | | | 2020 | Visit | | [address] | | | | | | [place] | | | | | | [address] | | | | | | | [...] +--------+ + + | [facility]B REFERRAL TO [facility] | Outpatient | Routin | Spondylolisthesis | [...]
--- OUTSIDE RECORDS SUMMARY | ~2019-05-11 | XMS | Encounter Summary ---
Demographics + + + | Address | [address] | | | [place] [address] | + + + | Home Phone [...] | [facility] Neal | | | and Khurramana | + + + | Organization | [facility] [...] Providers + +------+ + | Care Customer Engineering Specialist Name | Role | Phone | + +------+ + PCP | Unavailable | + +------+ + Encounter Details +--------+ + + + + | Date | Type | Department | Care Team | Description | +--------+ + + + + | 10/20/ | Hospital | [facility] | | | | 1999 | Encounter | MED CTR LABORATORY | | | | | | [address] | | | | | | [place] | | | | | | [address] | | | | | | [phone] | | | +--------+ + + + [...] [place] | | | | | | [facility] [address] | | | | | | [phone] | | | | | | | | +--------+---------+ + + + | 06/30/ | Office | Cardiology | Smitha Griffin DO | | | 2019 | Visit | | [address] | | | | | | [place] | | | | | | [address] | | | | | | | | +--------+---------+ + + + documented as of this encounter Visit Diagnoses Not on filedocumented in this encounter"
--- OUTSIDE RECORDS SUMMARY | ~2019-05-11 | XMS | Encounter Summary ---
Demographics + + + | Address | [address] | | | [place] [address] | + + + | Home Phone [...] Author | [facility] Neal | | | and Khurramana | + + + | Organization | [facility] Neal | | | and [...] Team Providers + +------+ + | Care Head Athletic Trainer/Strength Coach Name | Role | Phone | + [...] 2016 | | GASTROENTEROLOGY | [address], [place] | (Scheduled ERCP) | | | | [address] [place] | [address] [place], [place] | | | | | [address] [place], [place] | [address] | | | | | [address] | | | | | | [phone] | | | +--------+ + + + [...] | | | | | [place] [address] | | | | | | [phone] | | | | | | | | +--------+---------+ + + + | 06/30/ | Office | Cardiology | Smitha Griffin DO | | | 2019 | Visit | | [address] | | | | | | [place] | | | | | | [address] | | | | | | | | +--------+---------+ + + + documented as of this encounter Visit Diagnoses + + | Diagnosis | + + | Common bile duct stone - Primary Calculus of bile duct without mention of | | cholecystitis or obstruction | + + documented in this encounter"
--- OUTSIDE RECORDS SUMMARY | ~2019-05-11 | XMS | Encounter Summary ---
Demographics + + + | Address | [address] | | | [place] [address] | + + + | Home Phone [...] | Author | [facility] Neal | | | and Khurramana | + + + | Organization | [facility] Neal | | | and [place] [...] Providers + +------+ + | Care Interventional Neuroradiologist Name | Role | Phone | + [...] | | | | | | | DC ERCP DX | | | | | | | COLLECTION | | | | | | | SPECIMEN | | | | | | | BRUSHING/WAS | | | | | | | ORLANDO DC | | | | | | | ANESTH,UGI | | | | | | | ENDOSCOPY | | | | | | | ERCP | | | +--------+--------+ + + + + Encounter Details +--------+ + + + + | Date | Type | Department | Care Team | Description | +--------+ + + + + | 10/14/ | Hospital | [facility] | Gregor Mccord MD | Choledocholithiasis | | 2017 | Encounter | MED CTR MP INTRA OP | [address], [place] | (Primary Dx) | | | | [address] | [address] [place], [place] | | | | | [place], [place] | [address] | | | | | [address] | | | | | | [phone] | | | +--------+ + + + [...] the test. This includes: All prescription medicines Onno-lik-blvskvb medicines that don't need a prescription Any [...] infection or torn bowel. Date Last Reviewed: 12/01/201419996722-8028 [employer] [address] [place] [address], [place] [address]. All righ ts reserved. This information is [...] You cannot be awakened Date Last Reviewed: 04/01/201619991324-5990 [employer] [address] [place] [address]. All righ ts reserved. This information is [...] | | | | | | ([facility]) | | | | | | | MISC | | | | | | + + + +---------+ + + | [place]-3 Fatty | Take 1 tablet by | [...] [place] | | | | | | [place] [address] | | | | | | [phone] | | | | | | | | +--------+---------+ + + + | 06/30/ | Office | Cardiology | Smitha Griffin DO | | | 2019 | Visit | | [address] | | | | | | [place] | | | | | | [address] | | | | | | | [...] 10/14/2016 12:25 | PROVATION | | PMMRN: [id number] #: [id number] of : 1936Admit | | | Type: AmbulatoryAge: 80Room: [facility] 01Gender: FemaleNote Status: | | | FinalizedAttending MD: Gregor Mccord [facility]: | | | ERCPIndications: Biliary stent removalProviders: | | | Gregor Mccord MD, Jalyn Ring RN, [place] | | | ROBI Tello, Harinder Mcgowan [...] the anesthesiologist and | | | the agronomy technician in the endoscopy suite. Mental Status [...] was visible on the | | | physician compensation analyst film. The esophagus was successfully intubated under [...] Scope In: 12:40:12 PMScope Out: 12:55:03 PM [place] | | | [facility], [address] [place] [address] | | | [phone] | | | - Continue present medications. [...] |Scope Out: 12:55:03 PM | | | [facility], [address] [place] | | | [address] | | + + -+ + +---------+ [...]
--- OUTSIDE RECORDS SUMMARY | ~2019-05-11 | XMS | Encounter Summary ---
Demographics + + + | Address | [address] | | | [place] [address] | + + + | Home Phone [...] + | Author | [facility] Neal | | | and Khurramana | + + + | Organization | [facility] Neal | | [...] Team Providers + +------+ + | Care Supervisor Forming And Tempering Name | Role | Phone | + [...] + + | 04/07/ | Office | [facility] | Malcom Mojica, | [place] en[place]ia | | 2016 | Visit | PHYSIATRY [address] | [address] | (Primary Dx) | | | | [place], | [address] [place] | | | | | [place] [address] | [address] | | | | | [phone] | | | +--------+---------+ + + + [...] Medicine Consult Note Malcom Mojica MD [address] [facility], [address] [place] [address] FAX: CHIEF COMPLAINT: Chief Complaint [...] 1 tablet by mouth Daily. Multiple Vitamins-Minerals ([facility]) MISC Take by mouth. [place]-3 Fatty Acids (PRO NUTRIENTS OMEGA 3 PO) [...] ankles Coordination: There is no dysmetria on deocem-ht-lync and xvqp-vdul-silm. There Romberg is mildly positiv e with [...] not think that any further work-up would pattern changer at this time. Her primary symptoms [...] | | | | | [place] [address] | | | | | | [phone] | | | | | | | | +--------+---------+ + + + | 06/30/ | Office | Cardiology | Smitha Griffin DO | | | 2019 | Visit | | [address] | | | | | | [place] | | | | | | [address] | | | | | | | | +--------+---------+ + + + documented as of this encounter Visit Diagnoses + + | Diagnosis | + + | Hyper reflexia - Primary Abnormal reflex | + + documented in this encounter
--- OUTSIDE RECORDS SUMMARY | ~2019-05-11 | XMS | Encounter Summary ---
Demographics + + + | Address | [address] | | | [place] [address] | + + + | Home Phone [...] Author | [facility] Neal | | | and Khurramana | + + + | Organization | [facility] Neal | | | and [...] Team Providers + +------+ + | Care Broach Setter Name | Role | Phone | [...] | Gregor Brock MD | [address] | | | | | abnormality | [address] | [place], | | | | | Procedures | [address], [place] | [place] | | | | | MRI MRCP | [address] | [address] | | | | | Liver wo | [place] | Phone: | | | | | Contrast [place] | [address] | [phone] | | | | | MRI, | Phone: | Fax: | | | | | ABDOMEN | [phone] | [phone] | | | | | (MRI) | Fax: | | | | | | | [phone] | | +--------+--------+ + + + + [...] 2016 | | GASTROENTEROLOGY | [address], [place] | | | | | [address] [place] | [address] [place] | | | | | [address] [place] | [address] | | | | | [address] | | | | | | [phone] | | | +--------+ + + + [...] [place] | | | | | | [place] [address] | | | | | | [phone] | | | | | | | | +--------+---------+ + + + | 06/30/ | Office | Cardiology | Smitha Griffin DO | | | 2019 | Visit | | [address] | | | | | | [place], [place] | | | | | | [address] | | | | | | | [...] JACEK | | 02/11/2016. PROTOCOL: Coronal T2 roving inspector, axial T2 roving inspector, coronal 3D | [facility] | | respiratory triggered, coronal T2 thin [...] spine dated | | 02/11/2016.PROTOCOL: Coronal T2 roving inspector, axial T2 roving inspector, coronal 3D respiratory | | triggered,coronal T2 [...] A few more small subcentimeter | | W8djcohgyulro cyst are seen within the left kidney [...] [address] 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
--- OUTSIDE RECORDS SUMMARY | ~2019-05-11 | XMS | Encounter Summary ---
Demographics + + + | Address | [address] | | | [place] [address] | + + + | Home Phone [...] Author | [facility] Neal | | | and Khurramana | + + + | Organization | [facility] Neal | | | and [place] [...] Team Providers + +------+ + | Care Surveillance Inspector Name | Role | Phone | [...] + + | 10/14/ | Hospital | [facility] | Gregor Mccord MD | Choledocholithiasis | | 2017 | Encounter | MED CTR MP INTRA OP | [address], [place] | (Primary Dx) | | | | [address] | [address] [place], [place] | | | | | [place], [place] | [address] | | | | | [address] | | | | | | [phone] | | | +--------+ + + + [...] the test. This includes: All prescription medicines Gvja-ccb-purxehn medicines that don't need a prescription Any [...] infection or torn bowel. Date Last Reviewed: 12/01/201419999252-9736 [employer] [address] [place] [address], [place] [address]. All righ ts reserved. This information is [...] You cannot be awakened Date Last Reviewed: 04/01/201619995487-5798 [employer] [place] [address]. All righ ts reserved. This information is [...] | | | | | | | ([facility]) | | | | | | | MISC | | | | | | + + + +---------+ + + | [place]-3 Fatty | Take 1 tablet by | [...] [place] | | | | | | [place] [address] | | | | | | [phone] | | | | | | | | +--------+---------+ + + + | 06/30/ | Office | Cardiology | Smitha Griffin DO | | | 2019 | Visit | | [address] | | | | | | [place] | | | | | | [address] | | | | | | | [...] Procedure Note | + + | Ricco Lawrnece Results In - 10/14/2016 1:38 PM PDT [...] 10/14/2016 12:25 | PROVATION | | PMMRN: [id number] #: [id number] of : 1936Admit | | | Type: AmbulatoryAge: 80Room: [facility] 01Gender: FemaleNote Status: | | | FinalizedAttending MD: Gregor Mccord [facility] | | | ERCPIndications: Biliary stent removalProviders: | | | Gregor Mccord MD, Jalyn Ring RN, [place] | | | ROBI eTllo, Harinder Mcgowan MD (Anesthesia | | | [...] the anesthesiologist and | | | the electromyographic technician in the endoscopy suite. Mental Status [...] was visible on the | | | pulling unit operator film. The esophagus was successfully intubated under [...] Scope In: 12:40:12 PMScope Out: 12:55:03 PM [place] | | | [facility], [address] [place] [address] | | | [phone] | | | - Continue present medications. [...] |Scope Out: 12:55:03 PM | | | [facility], [address] [place] | | | [address] | | + + -+ + +---------+ [...]
--- OUTSIDE RECORDS SUMMARY | ~2019-05-11 | XMS | Encounter Summary ---
Demographics + + + | Address | [address] | | | [place] [address] | + + + | Home Phone [...] Author | [facility] Neal | | | and Khurramana | + + + | Organization | [facility] Neal | | | and [place] [...] Team Providers + +------+ + | Care Medicaid Billing Clerk Name | Role | Phone | [...] + + | 03/29/ | Surgery | [facility] | Mark [place] | Posterior Total Hip | | 2019 | | [facility] | MD [address] | Arthroplasty | | | | OPERATING ROOM [address] | [place] | | | | | [address] | [place] [address] | | | | | [place], [place] | [phone] | | | | | [address] | | | | | | [phone] | | | +--------+---------+ + + + [...] Procedure: ERCP; Surgeon: Gregor Mccord MD; Location: [facility] ERCP N/A 10/14/2016 Procedure: ERCP w/ stent pull; Surgeon: Gregor Mccord MD; Location: [facility] RE [facility] HARDWARE REMOVAL Left 03/29/2019 Procedure: REMOVE HARDWARE LOWER EXTREMITY-HIP; Surgeon: Mark [place] MD; Location : [facility] MAIN OR PARTIAL [...] Follow up: Gus Orozco PA-C [address] [facility] [address] In 2 weeks Discharge Medications Changed Medications [...] | | | | | | | ([facility]) | | | | | | | MISC | | | | | | + + + +---------+ + + | [place]-3 Fatty | Take 1 tablet by | [...] might be different fr om the original. [facility] Progress Note Primary Care Physician: [...] | | | | | [place] [address] | | | | | | [phone] | | | | | | | | +--------+---------+ + + + | 06/30/ | Office | Cardiology | Smitha Griffin DO | | | 2019 | Visit | | [address] | | | | | | [place] | | | | | | [address] | | | | | | | [...] | | | POC | performed at [facility];[address] | | LABORATORY | | | | [address];[place], [place] | | | | | | [address] | | | | + + + + + + + + | Specimen | + + | | + + + + + + + | Performing | Address | City/State/Zipcode | Phone Number | | Organization | | | | + + + + + | [facility] | [address] | [place] [address] | [phone] | + + + + + POC [...] | | | POC | performed at [facility];[address] | | LABORATORY | | | | [address];[place] | | | | | | [address] | | | | + + + + + + + + | Specimen | + + | | + + + + + + + | Performing | Address | City/State/Zipcode | Phone Number | | Organization | | | | + + + + + | [facility] | [address] | [place] [address] | [phone] | + + + + + POC Glucose (03/30/2019 8:57 PM PDT) + + + + + + | Component | Value | Ref Range | Performed | Pathologist | | | | | At | Signature | + + + + + + | Glucose, | 98Comment: Testing | 65 - 99 mg/dL | [facility] | | | POC | performed at [facility];[address] | | LABORATORY | | | | [address];[place] | | | | | | [address] | | | | + + + + + + + + | Specimen | + + | | + + + + + + + | Performing | Address | City/State/Zipcode | Phone Number | | Organization | | | | + + + + + | [facility] | [address] | [place] [address] | [phone] | + + + + + Hemoglobin [...] [facility] | | | | performed at [facility];[address] | | LABORATORY | | | | [address];[place] | | | | | | [address] | | | | + + + + + + + + | Specimen | + + | Blood | + + + + + + + | Performing | Address | City/State/Zipcode | Phone Number | | Organization | | | | + + + + + | [facility] | [address] | [place] [address] | [phone] | + + + + + POC [...] | | | POC | performed at [facility];[address] | | LABORATORY | | | | [address];[place], [place] | | | | | | [address] | | | | + + + + + + + + | Specimen | + + | | + + + + + + + | Performing | Address | City/State/Zipcode | Phone Number | | Organization | | | | + + + + + | [facility] | [address] | [place] [address] | [phone] | + + + + + POC [...] | | | POC | performed at [facility];[address] | | LABORATORY | | | | [address];[place], [place] | | | | | | [address] | | | | + + + + + + + + | Specimen | + + | | + + + + + + + | Performing | Address | City/State/Zipcode | Phone Number | | Organization | | | | + + + + + | [facility] | [address] | [place] [address] | [phone] | + + + + + XR [...] | | | POC | performed at [facility];[address] | | LABORATORY | | | | [address];[place], [place] | | | | | | [address] | | | | + + + + + + + + | Specimen | + + | | + + + + + + + | Performing | Address | City/State/Zipcode | Phone Number | | Organization | | | | + + + + + | [facility] | [address] | [place] [address] | [phone] | + + + + + Type [...] + + + | [facility] | [id number] | | [facility] | | | | | | LABORATORY | | + + + + + + | [facility] | Testing performed at | | [facility] | | | | [facility];[address] | | LABORATORY | | | | [address];[place] [address] | | | | + + + + + + + + | Specimen | + + | Blood | + + + + + + + | Performing | Address | City/State/Zipcode | Phone Number | | Organization | | | | + + + + + | [facility] | [address] | [place] [address] | [phone] | + + + + + POC Glucose (03/29/2019 6:42 AM PDT) + + + + + + | Component | Value | Ref Range | Performed | Pathologist | | | | | At | Signature | + + + + + + | Glucose, | 96Comment: Testing | 65 - 99 mg/dL | [facility] | | | POC | performed at [facility];[address] | | LABORATORY | | | | [address];[place], [place] | | | | | | [address] | | | | + + + + + + + + | Specimen | + + | | + + + + + + + | Performing | Address | City/State/Zipcode | Phone Number | | Organization | | | | + + + + + | [facility] | [address] | [place] [address] | [phone] | + + + + + documented [...]
--- OUTSIDE RECORDS SUMMARY | ~2019-05-11 | XMS | Encounter Summary ---
Demographics + + + | Address | [address] | | | [place] [address] | + + + | Home Phone [...] [facility] Neal | | | and Khurramana | + + + | Organization | [facility] Neal | | | and [place] [...] Team Providers + +------+ + | Care Gin Inspector Name | Role | Phone | [...] 2017 | | GASTROENTEROLOGY | [address], [place] | | | | | [address] [place] | [address] [place], [place] | | | | | [address] [place], [place] | [address] | | | | | [address] | | | | | | [phone] | | | +--------+ + + + [...] [place] | | | | | | [place] [address] | | | | | | [phone] | | | | | | | | +--------+---------+ + + + | 06/30/ | Office | Cardiology | Smitha Griffin DO | | | 2019 | Visit | | [address] | | | | | | [place] | | | | | | [address] | | | | | | | | +--------+---------+ + + + documented as of this encounter Visit Diagnoses Not on filedocumented in this encounter"
--- OUTSIDE RECORDS SUMMARY | ~2019-05-11 | XMS | Encounter Summary ---
Demographics + + + | Address | [address] | | | [place] [address] | + + + | Home Phone [...] Author | [facility] Neal | | | and Khurramana | + + + | Organization | [facility] Neal [...] Team Providers + +------+ + | Care Roof Fixer Name | Role | Phone | + [...] + + | 03/03/ | Telephone | [facility] | Malcom Mojica, | [place] (discuss lab | | 2016 | | PHYSIATRY [address] | MD Desi SMITH | work ) | | | | [place], | [address] [place] [place] | | | | | [place] [address] | [address] | | | | | [phone] | | | +--------+ + + + [...] [place] | | | | | | [facility] [place] [address] | | | | | | [phone] | | | | | | | | +--------+---------+ + + + | 06/30/ | Office | Cardiology | Smitha Griffin DO | | | 2020 | Visit | | [address] | | | | | | [place] | | | | | | [address] | | | | | | | | +--------+---------+ + + + documented as of this encounter Visit Diagnoses Not on filedocumented in this encounter"
--- OUTSIDE RECORDS SUMMARY | ~2019-05-11 | XMS | Encounter Summary ---
Demographics + + + | Address | [address] | | | [place] [address] | + + + | Home Phone [...] | [facility] Neal | | | and Khurramana | + + + | Organization | [facility] Neal | | [...] Providers + +------+ + | Care Auto Overhauler Name | Role | Phone | + [...] Surgery Appointment | | 2018 | | [place] [address] [address] | Shoe Fitter | | | | | [place] | | | | | | [address] | | | | | | [phone] | | | +--------+ + + + [...] [place] | | | | | | [place] [address] | | | | | | [phone] | | | | | | | | +--------+---------+ + + + | 06/30/ | Office | Cardiology | Smitha Griffin DO | | | 2020 | Visit | | [address] | | | | | | [place] | | | | | | [address] | | | | | | | | +--------+---------+ + + + documented as of this encounter Visit Diagnoses Not on filedocumented in this encounter"
--- OUTSIDE RECORDS SUMMARY | ~2019-05-11 | XMS | Encounter Summary ---
Demographics + + + | Address | [address] | | | [place] [address] | + + + | Home Phone [...] | Author | [facility] | | | and Khurramana | + + + | Organization | [facility] Neal | | | and [...] Team Providers + +------+ + | Care Time Study Statistician Name | Role | Phone | + [...] 2016 | | GASTROENTEROLOGY | [address] | | | | | [address] | [address] [place] | | | | | [address] [place] | [address] | | | | | [address] | | | | | | [phone] | | | +--------+ + + + [...] [place] | | | | | | [place] [address] | | | | | | [phone] | | | | | | | | +--------+---------+ + + + | 06/30/ | Office | Cardiology | Smitha Griffin DO | | | 2019 | Visit | | [address] | | | | | | [place] | | | | | | [address] | | | | | | | | +--------+---------+ + + + documented as of this encounter Visit Diagnoses Not on filedocumented in this encounter"
--- OUTSIDE RECORDS SUMMARY | ~2019-05-11 | XMS | Encounter Summary ---
Demographics + + + | Address | [address] | | | [place] [address] | + + + | Home Phone [...] | Author | [facility] | | | and Khurramana | + + + | Organization | [facility] | | [...] Providers + +------+ + | Care Community Service Aide Name | Role | Phone | + [...] | | | | | [address] [facility] | | | | | | [address] [place] | | | | | | [address] | | | | | | [phone] | | | +--------+ + + + [...] | | | | | [place] [address] | | | | | | [phone] | | | | | | | | +--------+---------+ + + + | 06/30/ | Office | Cardiology | Smitha Griffin DO | | | 2019 | Visit | | [address] | | | | | | [place] | | | | | | [address] | | | | | | | | +--------+---------+ + + + documented as of this encounter Visit Diagnoses Not on filedocumented in this encounter"
--- OUTSIDE RECORDS SUMMARY | ~2019-05-11 | XMS | Encounter Summary ---
Demographics + + + | Address | [address] | | | [place] [address] | + + + | Home Phone | | + + + | Preferred Language | Unknown | + + + | Marital Status | | + + + | Sabianist Affiliation | 1077 | + + + | Race | Unknown | + + + | Ethnic Group | Unknown | + + + Author + + + | Author | and [facility] | | | and Khurramana | + + + | Organization | and [facility] | [...] Team Providers + +------+ + | Care Windchill Administrator Name | Role | Phone | [...] + + | 03/29/ | Hospital | [facility] | Mark Montana | Left hip pain; | | 2019 - | Encounter | [facility] | MD [address] | 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[place], [place]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 | | 2019 | | [address] | [phone] | | | | | [phone] | | | +--------+ + + + [...] EXTREMITY-HIP; Surgeon: Mark [place] MD; Location : [facility] PARTIAL HYSTERECTOMY 1971 RECTOCELE REPAIR 1991 TAILBONE 1973 broken, partial removal TONSILLECTOMY 1938 TOTAL HIP ARTHROPLASTY Left 03/29/2019 Procedure: Posterior Total Hip Arthroplasty; Surgeon: Mark [place] MD; Location: [facility] OR Allergies Allergen Reactions Erythromycin Hives,Rash [...] Code Follow up: Gus Orozco PA-C [address] [facility] [address] In 2 weeks Discharge Medications Changed Medications [...] | | | | | | ([facility]) | | | | | | | MISC | | | | | | + + + +---------+ + + | [place]-3 Fatty | Take 1 tablet by | [...] | | | | | [place] [address] | | | | | | [phone] | | | | | | | | +--------+---------+ + + + | 06/30/ | Office | Cardiology | Smitha Griffin DO | | | 2019 | Visit | | [address] | | | | | | [place] | | | | | | [address] | | | | | | | [...] | | POC | performed at [facility];[address] | | LABORATORY | | | | [address];[place], [place] | | | | | | [address] | | | | + + + + + + + + | Specimen | + + | | + + + + + + + | Performing | Address | City/State/Zipcode | Phone Number | | Organization | | | | + + + + + | [facility] | [address] | [place] [address] | [phone] | + + + + + POC [...] | | POC | performed at [facility];888 | | LABORATORY | | | | [address];[place] | | | | | | [address] | | | | + + + + + + + + | Specimen | + + | | + + + + + + + | Performing | Address | City/State/Zipcode | Phone Number | | Organization | | | | + + + + + | [facility] | [address] | [place] [address] | [phone] | + + + + + POC Glucose (03/30/2019 8:57 PM PDT) + + + + + + | Component | Value | Ref Range | Performed | Pathologist | | | | | At | Signature | + + + + + + | Glucose, | 98Comment: Testing | 65 - 99 mg/dL | [facility] | | | POC | performed at [facility];888 | | LABORATORY | | | | [address];[place] | | | | | | [address] | | | | + + + + + + + + | Specimen | + + | | + + + + + + + | Performing | Address | City/State/Zipcode | Phone Number | | Organization | | | | + + + + + | [facility] | [address] | [place] [address] | [phone] | + + + + + Hemoglobin [...] | | | | performed at [facility];[address] | | LABORATORY | | | | [address];[place], [place] | | | | | | [address] | | | | + + + + + + + + | Specimen | + + | Blood | + + + + + + + | Performing | Address | City/State/Zipcode | Phone Number | | Organization | | | | + + + + + | [facility] | [address] | [place] [address] | [phone] | + + + + + POC [...] | | POC | performed at [facility];[address] | | LABORATORY | | | | [address];[place] | | | | | | [address] | | | | + + + + + + + + | Specimen | + + | | + + + + + + + | Performing | Address | City/State/Zipcode | Phone Number | | Organization | | | | + + + + + | [facility] | [address] | [place] [address] | [phone] | + + + + + POC [...] | | POC | performed at [facility];[address] | | LABORATORY | | | | [address];[place], [place] | | | | | | [address] | | | | + + + + + + + + | Specimen | + + | | + + + + + + + | Performing | Address | City/State/Zipcode | Phone Number | | Organization | | | | + + + + + | [facility] | [address] | [place] [address] | [phone] | + + + + + XR [...] | | POC | performed at [facility];[address] | | LABORATORY | | | | [address];[place], [place] | | | | | | [address] | | | | + + + + + + + + | Specimen | + + | | + + + + + + + | Performing | Address | City/State/Zipcode | Phone Number | | Organization | | | | + + + + + | [facility] | [address] | [place] [address] | [phone] | + + + + + Type [...] + + + | [facility] | [id number] | | [facility] | | | | | | LABORATORY | | + + + + + + | BB BAND | Testing performed at | | [facility] | | | | [facility];[address] | | LABORATORY | | | | [address];[place] [address] | | | | + + + + + + + + | Specimen | + + | Blood | + + + + + + + | Performing | Address | City/State/Zipcode | Phone Number | | Organization | | | | + + + + + | [facility] | [address] | [place] [address] | [phone] | + + + + + POC [...] | | POC | performed at [facility];[address] | | LABORATORY | | | | [address];[place], [place] | | | | | | [address] | | | | + + + + + + + + | Specimen | + + | | + + + + + + + | Performing | Address | City/State/Zipcode | Phone Number | | Organization | | | | + + + + + | [facility] | [address] | [place] [address] | [phone] | + + + + + documented [...]
--- OUTSIDE RECORDS SUMMARY | ~2019-05-11 | XMS | Encounter Summary ---
Demographics + + + | Address | [address] | | | [place] [address] | + + + | Home Phone [...] Author | [facility] | | | and Khurramana | + + + | Organization | [facility] | | | and [...] Providers + +------+ + | Care Fisheries Management Biologist Name | Role | Phone | + [...] + + | 09/26/ | Hospital | [facility] | Gregor Mccord MD | | | 2017 | Encounter | MED CTR XRAY [address] | [address] | | | | | [place] | [address] [place] [address] | | | | | [place] [address] | [id number] | | | | | [phone] | | | +--------+ + + + [...] | | | | | | | ([facility]) | | | | | | | MISC | | | | | | + + + +---------+ + + | [place]-3 Fatty | Take 1 tablet by | [...] [address] | | | | | | [place] [address] | | | | | | [phone] | | | | | | | | +--------+---------+ + + + | 06/30/ | Office | Cardiology | Smitha Griffin DO | | | 2019 | Visit | | [address] | | | | | | [place] | | | | | | [address] | | | | | | | [...]
--- OUTSIDE RECORDS SUMMARY | ~2019-05-11 | XMS | Encounter Summary ---
Demographics + + + | Address | [address] | | | [place] [address] | + + + | Home Phone [...] Author | [facility] | | | and Khurramana | + + + | Organization | [facility] | [...] Providers + +------+ + | Care Service Cashier Name | Role | Phone | [...] + | 05/05/ | Telephone | [facility] | Mark Montana | Post-op Problem (MADELYN | | 2018 | | [place] [address] | MD Alaina [address] | 03/29/19) | | | | [address]VD [place], [place] | [address] | | | | | [address] | [place] [address] | | | | | [phone] | [phone] | | | | | | | [...] | | | | | [place] [address] | | | | | | [phone] | | | | | | | | +--------+---------+ + + + | 06/30/ | Office | Cardiology | Smitha Griffin DO | | | 2020 | Visit | | [address] | | | | | | [place] | | | | | | [id number] | | | | | | | | +--------+---------+ + + + documented as of this encounter Visit Diagnoses Not on filedocumented in this encounter"
--- OUTSIDE RECORDS SUMMARY | ~2019-05-11 | XMS | Encounter Summary ---
Demographics + + + | Address | [address] | | | [place] [address] | + + + | Home Phone [...] + | Author | [facility] | | | and Khurramana | + + + | Organization | [facility] | | | and [place] [...] Providers + +------+ + | Care Medical Records Administrator Name | Role | Phone | [...] [address] | | | | [address], | [place], | | | | | [place] [address] | [place] [address] | | | | | [phone] | [phone] | | | | | | | [...] 05/16/ | Office | Orthopedic Surgery | Mrak Montana | | | 2019 | Visit | | MD Alaina [address] | | | | | | [place] | | | | | | [place] [address] | | | | | | [phone] | | | | | | | | +--------+---------+ + + + | 06/30/ | Office | Cardiology | Smitha Griffin DO | | | 2019 | Visit | | [address] | | | | | | [place] | | | | | | [address] | | | | | | | | +--------+---------+ + + + documented as of this encounter Visit Diagnoses Not on filedocumented in this encounter"
--- OUTSIDE RECORDS SUMMARY | ~2019-05-11 | XMS | Encounter Summary ---
Demographics + + + | Address | [address] | | | [place] [address] | + + + | Home Phone [...] Author | [facility] | | | and Khurramana | + + + | Organization | [facility] [...] Providers + +------+ + | Care Career Placement Services Counselor Name | Role | Phone | + [...] Surgery Appointment | | 2018 | | [place] [address] | Cutting Supervisor | | | | | [place] | | | | | | [address] | | | | | | [phone] | | | +--------+ + + + [...] [address] | | | | | | [place] [address] | | | | | | [phone] | | | | | | | | +--------+---------+ + + + | 06/30/ | Office | Cardiology | Smitha Griffin DO | | | 2020 | Visit | | [address] | | | | | | [place] | | | | | | [address] | | | | | | | | +--------+---------+ + + + documented as of this encounter Visit Diagnoses Not on filedocumented in this encounter"
--- OUTSIDE RECORDS SUMMARY | ~2019-05-11 | XMS | Encounter Summary ---
Demographics + + + | Address | [address] | | | [place] [address] | + + + | Home Phone [...] | [facility] | | | and Khurramana | + + + | Organization | [facility] | | | and [place] [...] Providers + +------+ + | Care Clinical Research Physician Name | Role | Phone | [...] 2016 | | GASTROENTEROLOGY | [address] | | | | | [address] | [address] [place] | | | | | [address] [place] | [address] | | | | | [address] | | | | | | [phone] | | | +--------+ + + + [...] [address] | | | | | | [place] [address] | | | | | | [phone] | | | | | | | | +--------+---------+ + + + | 06/30/ | Office | Cardiology | Smitha Griffin DO | | | 2019 | Visit | | [address] | | | | | | [place] | | | | | | [address] | | | | | | | | +--------+---------+ + + + documented as of this encounter Visit Diagnoses Not on filedocumented in this encounter"
--- OUTSIDE RECORDS SUMMARY | ~2019-05-11 | XMS | Encounter Summary ---
Demographics + + + | Address | [address] | | | [place] [address] | + + + | Home Phone [...] + + | Author | [facility] | | | and Khurramana | + + + | Organization | [facility] | | | [...] Team Providers + +------+ + | Care Pit Inspector Name | Role | Phone | [...] [place] | | | | | | [address] | | | | | | [phone] | | | +--------+ + + + [...] [address] | | | | | | [place] [address] | | | | | | [phone] | | | | | | | | +--------+---------+ + + + | 06/30/ | Office | Cardiology | Smitha Griffin DO | | | 2019 | Visit | | [address] | | | | | | [place] | | | | | | [address] | | | | | | | | +--------+---------+ + + + documented as of this encounter Visit Diagnoses + + | Diagnosis | + + | Other screening mammogram | + + documented in this encounter"
--- OUTSIDE RECORDS SUMMARY | ~2019-05-11 | XMS | Encounter Summary ---
Demographics + + + | Address | [address] | | | [place] [address] | + + + | Home Phone [...] Author | [facility] | | | and Khurramana | + + + | Organization | [facility] | [...] Team Providers + +------+ + | Care Continuous Miner Operator Name | Role | Phone | [...] | [address] | | | | | | [address] [place] | | | | | | [address] | | | | | | [phone] | | | +--------+ + + + [...] [address] | | | | | | [place] [address] | | | | | | [phone] | | | | | | | | +--------+---------+ + + + | 06/30/ | Office | Cardiology | Smitha Griffin DO | | | 2019 | Visit | | [address] | | | | | | [place] | | | | | | [address] | | | | | | | | +--------+---------+ + + + documented as of this encounter Visit Diagnoses Not on filedocumented in this encounter"
--- OUTSIDE RECORDS SUMMARY | ~2019-05-11 | XMS | Encounter Summary ---
Demographics + + + | Address | [address] | | | [place] [address] | + + + | Home Phone [...] [facility] | | | and Khurramana | + + + | Organization | [facility] | [...] Team Providers + +------+ + | Care Turf And Grounds Supervisor Name | Role | Phone | [...] 2017 | | GASTROENTEROLOGY | [address], [place] | stent pull) | | | | [address] [place] | [address] [place], [place] | | | | | [address] [place], [place] | [address] | | | | | [address] | | | | | | [phone] | | | +--------+ + + + [...] | | | | | [place] [address] | | | | | | [phone] | | | | | | | | +--------+---------+ + + + | 06/30/ | Office | Cardiology | Smitha Griffin DO | | | 2019 | Visit | | [address] | | | | | | [place] | | | | | | [address] | | | | | | | [...]
--- OUTSIDE RECORDS SUMMARY | ~2019-05-11 | XMS | Encounter Summary ---
Demographics + + + | Address | [address] | | | [place] [address] | + + + | Home Phone [...] | [facility] | | | and Khurramana | + + + | Organization | [facility] | | [...] Team Providers + +------+ + | Care American Studies Professor Name | Role | Phone | [...] [place] | | | | | | [address] | | | | | | [phone] | | | +--------+ + + + [...] [address] | | | | | | [place] [address] | | | | | | [phone] | | | | | | | | +--------+---------+ + + + | 06/30/ | Office | Cardiology | Smitha Griffin DO | | | 2019 | Visit | | [address] | | | | | | [place] | | | | | | [address] | | | | | | | | +--------+---------+ + + + documented as of this encounter Visit Diagnoses + + | Diagnosis | + + | Other screening mammogram | + + documented in this encounter"
--- OUTSIDE RECORDS SUMMARY | ~2019-05-11 | XMS | Encounter Summary ---
Demographics + + + | Address | [address] | | | [place] [address] | + + + | Home Phone [...] | Author | [facility] | | | and Khurramana | + + + | Organization | 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
--- OUTSIDE RECORDS SUMMARY | ~2019-05-11 | XMS | Encounter Summary ---
Demographics + + + | Address | [address] | | | [place] [address] | + + + | Home Phone [...] | Author | [facility] | | | and Khurramana | + + + | Organization | [facility] | | | and [...] Team Providers + +------+ + | Care Pari Mutuel Ticket Cashier Name | Role | Phone | [...] 2017 | | GASTROENTEROLOGY | [address], [place] | stent pull) | | | | [address] [place] | [address] [place], [place] | | | | | [address] [place], [place] | [address] | | | | | [address] | | | | | | [phone] | | | +--------+ + + + [...] | | | | | [place] [address] | | | | | | [phone] | | | | | | | | +--------+---------+ + + + | 06/30/ | Office | Cardiology | Smitha Griffin DO | | | 2019 | Visit | | [address] | | | | | | [place] | | | | | | [address] | | | | | | | [...]
--- OUTSIDE RECORDS SUMMARY | ~2019-05-11 | XMS | Encounter Summary ---
Demographics + + + | Address | [address] | | | [place] [address] | + + + | Home Phone [...] Author | [facility] | | | and Khurramana | + + + | Organization | [facility] | | [...] Team Providers + +------+ + | Care Mechanic Insulator Name | Role | Phone | + [...] | | | | | | TX ERCP DX | | | | | | | COLLECTION | | | | | | | SPECIMEN | | | | | | | BRUSHING/WAS | | | | | | | [place] | | | | | | | ANESTH,UGI | | | | | | | ENDOSCOPY | | | | | | | ERCP | | | +--------+--------+ + + + + Encounter Details +--------+---------+ + + + | Date | Type | Department | Care Team | Description | +--------+---------+ + + + | 10/14/ | Surgery | [facility] | Gregor Mccord MD | ERCP w/ stent pull | | 2017 | | MED CTR MP INTRA OP | [address], [place] | | | | | [address] | [address] [place], [place] | | | | | [place], [place] | [address] | | | | | [address] | | | | | | [phone] | | | +--------+---------+ + + + [...] the test. This includes: All prescription medicines Izew-pgv-nvoqdpy medicines that don't need a prescription Any [...] infection or torn bowel. Date Last Reviewed: 12/01/201419994670-8419 [employer] [place] [address], [place] [address]. All righ ts reserved. This information is [...] You cannot be awakened Date Last Reviewed: 04/01/201619991454-6068 [employer] [place] [address], [place] [address]. All righ ts reserved. This information is [...] | | | | | | | ([facility]) | | | | | | | MISC | | | | | | + + + +---------+ + + | [place]-3 Fatty | Take 1 tablet by [...] | | | | | [place] [address] | | | | | | [phone] | | | | | | | | +--------+---------+ + + + | 06/30/ | Office | Cardiology | Smitha Griffin DO | | | 2019 | Visit | | [address] | | | | | | [place] | | | | | | [address] | | | | | | | [...] + + documented in this encounter Results CT ERCP (10/14/2016 1:06 PM PDT) + + [...] 10/14/2016 12:25 | [employer] | | PMMRN: [id number] #: [id number] of : 1935dmit | | | Type: AmbulatoryAge: 80Room: [facility] 01Gender: FemaleNote Status: | | | FinalizedAttending MD: Gregor Mccord [facility] | | | ERCPIndications: Biliary stent removalProviders: | | | Gregor Mccord MD, Jalyn Ring RN, [place] | | | ROBI Tello, Harinder Mcgowan [...] the anesthesiologist and | | | the technician chemical cleaning in the endoscopy suite. Mental Status | [...] was visible on the | | | barbecue cook film. The esophagus was successfully intubated under [...] Scope In: 12:40:12 PMScope Out: 12:55:03 PM [facility] | | | [facility], [address] [place] [address] | | | [phone] | | | - Continue present medications. [...] |Scope Out: 12:55:03 PM | | | [facility], [address] , [place], [place] | | | [address] | | + + -+ + +---------+ [...]
--- OUTSIDE RECORDS SUMMARY | ~2019-05-11 | XMS | Encounter Summary ---
Demographics + + + | Address | [address] | | | [place] [address] | + + + | Home Phone [...] + | Author | [facility] | | | and Khurramana | + + + | Organization | [facility] [...] Team Providers + +------+ + | Care Cloth Pattern Maker Name | Role | Phone | [...] Hyper | MD Malcom | [address] | | | | | reflexia | [address] | [place] | | | | | Abnormal | [place] | [place] | | | | | gait | [address] | [address] | | | | | Procedures | [place] | Phone: | | | | | MRI Cervical | [address] | [phone] | | | | | Spine wo | Phone: | Fax: | | | | | Contrast | [phone] | [phone] | | | | | | Fax: | | | | | | | [phone] | | +--------+--------+ + + + + [...] | (Primary Dx); | | | | [address] [place], | [address] | Abnormal gait | | | | [place] [address] | [address] | | | | | [phone] | | | +--------+ + + + [...] | | | | | [place] [address] | | | | | | [phone] | | | | | | | | +--------+---------+ + + + | 06/30/ | Office | Cardiology | Smitha Griffin DO | | | 2019 | Visit | | [address] | | | | | | [place] | | | | | | [address] | | | | | | | [...]
--- OUTSIDE RECORDS SUMMARY | ~2019-05-11 | XMS | Encounter Summary ---
Demographics + + + | Address | [address] | | | [place] [address] | + + + | Home Phone [...] + | Author | [facility] | | | and Khurramana | + + + | Organization | [facility] | | [...] Providers + +------+ + | Care Supervisor Carpenters Name | Role | Phone | + +------+ + | Susan Leos | PCP | | | PA-C | | | + +------+ + Encounter Details +--------+ + + + + | Date | Type | Department | Care Team | Description | +--------+ + + + + | 03/21/ | Preadmit | [facility] | Mark [place] | | | 2019 | Visit | CENTER PREADMIT | MD Alaina [address] | | | | | CLINIC [address] | [place] | | | | | [place] | [place] [address] | | | | | [address] | [phone] | | | | | [phone] | | | +--------+ + + + [...] were given in the hospital. Wear them tka99fkezfl d ay for3 to 4weeks. To relieve discomfort at night, get up and move around. Tell all your healthcare providers including your dentist about your artificial join t before any procedure. You mayneed to take antibiotics before dental work and other medic al procedures to reduce the risk of infection. Arrangeto have your lobito removed [id number] after surgery. The lobito were u sed [...] ur hip joint. Use a raisedtoilet seat ajc1omqto after surgery. Ask your healthcare provider if [...] on socks and shoes. And don't pick remover items from the floor. Use a cane, [...] draining from the incision Date Last Reviewed: 10/13/201719996041-6113 [employer]. [address] [place] [address]. All righ ts reserved. This information is not intended as a substitute for professional medical care. Always follow your healthcare professional's instructions. Outpatient Medications Marked as Taking for the 03/21/19 encounter (Preadmit Visit) with [facility] 2 Medication Sig Instructions acetaminophen (TYLENOL) [...] mouth. DO NOT TAKE day of procedure [place]-3 Fatty Acids (PRO NUTRIENTS OMEGA 3 PO) [...] 2018 | Visit | | MD Alaina [address] | | | | | | [place] | | | | | | [place] [address] | | | | | | [phone] | | | | | | | | +--------+---------+ + + + | 06/30/ | Office | Cardiology | Smitha Griffin DO | | | 2019 | Visit | | [address] | | | | | | [place] | | | | | | [address] | | | | | | | [...] | KR | | | Screen | [facility];[address] | | LABORATORY | | | | [address];[place] [address] | | | | + + + + + + + + | Specimen | + + | Blood | + + + + + + + | Performing | Address | City/State/Zipcode | Phone Number | | Organization | | | | + + + + + | [facility] | [address] | [place] [address] | [phone] | + + + + + MRSA [...] [facility] | | | | performed at [facility];[address] | | LABORATORY | | | | [address];[place] | | | | | | [address] | | | | + + + + + + + + | Specimen | + + | Tissue - Both | | anterior nares (body | | structure) | + + + + + + + | Performing | Address | City/State/Zipcode | Phone Number | | Organization | | | | + + + + + | [facility] | [address] | [place] [address] | [phone] | + + + + + Hemoglobin A1C (03/21/2019 3:33 PM PDT) + + + + + + | Component | Value | Ref Range | Performed | Pathologist | | | | | At | Signature | + + + + + + | Hemoglobin | 5.8Comment: HbA1c method | 4.0 - 6.0 % | [facility] | | | A1c | is certified by [facility] | | LABORATORY | | | [...] 120Comment: Estimated | <154 mg/dL | [facility] | | | Average | Average Glucose | | LABORATORY | | | Glucose | calculated from | | | | | | hemoglobin A1c by use of | | | | | | the ADArecommended | | | | | | formula.Testing | | | | | | performed at [facility], [address] | | | | | | [facility], | | | | | | [place] [address] | | | | + + + + + + + + | Specimen | + + | Blood | + + + + + + + | Performing | Address | City/State/Zipcode | Phone Number | | Organization | | | | + + + + + | [facility] | [address] | [place] [address] | [phone] | + + + + + CBC [...] | | | | | performed at [facility];[address] | | | | | | [address];[place] | | | | | | [address] | | | | + + + + + + + + | Specimen | + + | Blood | + + + + + + + | Performing | Address | City/State/Zipcode | Phone Number | | Organization | | | | + + + + + | [facility] | [address] | [place] [address] | [phone] | + + + + + Basic [...] >60Comment: GFR <60: | >60 | [facility] | | | GFR | [...] | | | | | | MDRD [facility] traceable | | | | | | equation.Testing | | | | | | performed at [facility];[address] | | | | | | [facility];[place], [place] | | | | | | [address] | | | | + + + + + + + + | Specimen | + + | Blood | + + + + + + + | Performing | Address | City/State/Zipcode | Phone Number | | Organization | | | | + + + + + | [facility] | [address] | [place] [address] | [phone] | + + + + + ECG [...]
--- OUTSIDE RECORDS SUMMARY | ~2019-05-11 | XMS | Encounter Summary ---
Demographics + + + | Address | [address] | | | [place] [address] | + + + | Home Phone [...] Author | [facility] | | | and Khurramana | + + + | Organization | [facility] | [...] Team Providers + +------+ + | Care Small Parts Assembler Name | Role | Phone | [...] | disc disease), | | | | [place], | [address], | lumbar; | | | | [place] [address] | [place] [address] | Spondylolisthesis at | | | | [phone] | [phone] | L4-L5 level; | | | | [...] [place] | | | | | | [place] [address] | | | | | | [phone] | | | | | | | | +--------+---------+ + + + | 06/30/ | Office | Cardiology | Smitha GriffinDO | | | 2019 | Visit | | [address] | | | | | | [place] | | | | | | [address] | | | | | | | [...]
--- OUTSIDE RECORDS SUMMARY | ~2019-05-11 | XMS | Encounter Summary ---
Demographics + + + | Address | [address] | | | [place] [address] | + + + | Home Phone [...] Author | [facility] | | | and Khurramana | + + + | Organization | [facility] | [...] Team Providers + +------+ + | Care Psych Nurse Name | Role | Phone | + +------+ + | Ssuan Leos | PCP | | | PA-C [...] [place] | | | | | | [address] | | | | | | [phone] | | | +--------+ + + + [...] [place] | | | | | | [place] [address] | | | | | | [phone] | | | | | | | | +--------+---------+ + + + | 06/30/ | Office | Cardiology | Smitha Griffin DO | | | 2019 | Visit | | [address] | | | | | | [place] | | | | | | [address] | | | | | | | | +--------+---------+ + + + documented as of this encounter Visit Diagnoses Not on filedocumented in this encounter"
--- OUTSIDE RECORDS SUMMARY | ~2019-05-11 | XMS | Encounter Summary ---
Demographics + + + | Address | [address] | | | [place] [address] | + + + | Home Phone [...] Author | [facility] | | | and Khurramana | + + + | Organization | [facility] | [...] Team Providers + +------+ + | Care Insert Cutter Name | Role | Phone | [...] + + | 03/03/ | Telephone | [facility] | Malcom Mojica, | [place] (discuss lab | | 2016 | | PHYSIATRY [address] | MD Desi SMITH | work ) | | | | [place], | [address] [place] [place] | | | | | [place] [address] | [address] | | | | | [phone] | | | +--------+ + + + [...] | | | | | [facility] [address] | | | | | | [phone] | | | | | | | | +--------+---------+ + + + | 06/30/ | Office | Cardiology | Smitha Griffin DO | | | 2020 | Visit | | [address] | | | | | | [place] | | | | | | [address] | | | | | | | | +--------+---------+ + + + documented as of this encounter Visit Diagnoses Not on filedocumented in this encounter"
--- OUTSIDE RECORDS SUMMARY | ~2019-05-11 | XMS | Encounter Summary ---
Demographics + + + | Address | [address] | | | [place] [address] | + + + | Home Phone [...] | [facility] | | | and Khurramana | + + + | Organization | [facility] | | [...] Team Providers + +------+ + | Care Integration Lead Name | Role | Phone | [...] + | 05/05/ | Telephone | [facility] | Mark [place] | Post-op Problem (MADELYN | | 2018 | | [place] [address] | MD Alaina [address] | 03/29/19) | | | | [address] [place], [place] | [address] [place] | | | | | [address] | [place] [address] | | | | | [phone] | [phone] | | | | | | | [...] | | | | | [place] [address] | | | | | | [phone] | | | | | | | | +--------+---------+ + + + | 06/30/ | Office | Cardiology | Smitha Griffin DO | | | 2020 | Visit | | [address] | | | | | | [place] | | | | | | [id number] | | | | | | | | +--------+---------+ + + + documented as of this encounter Visit Diagnoses Not on filedocumented in this encounter"
--- OUTSIDE RECORDS SUMMARY | ~2019-05-11 | XMS | Encounter Summary ---
Demographics + + + | Address | [address] | | | [place] [address] | + + + | Home Phone [...] | Author | [facility] | | | and Khurramana | + + + | Organization | [facility] | [...] Team Providers + +------+ + | Care Nuisance Wildlife Trapper Name | Role | Phone | + [...] | | | | | | | [place] | | | | | | | ANESTH,UGI | | | | | | | ENDOSCOPY | | | | | | | ERCP | | | +--------+--------+ + + + + Encounter Details +--------+---------+ + + + | Date | Type | Department | Care Team | Description | +--------+---------+ + + + | 10/14/ | Surgery | [facility] | Gregor Mccord MD | ERCP w/ stent pull | | 2017 | | MED CTR MP INTRA OP | [address], [place] | | | | | [address] | [address] [place], [place] | | | | | [place], [place] | [address] | | | | | [address] | | | | | | [phone] | | | +--------+---------+ + + + [...] the test. This includes: All prescription medicines Kzds-zij-zollbzg medicines that don't need a prescription Any [...] infection or torn bowel. Date Last Reviewed: 12/01/201419994310-0616 [employer]. [address] [place] [address], [place] [address]. All righ ts reserved. This information is [...] You cannot be awakened Date Last Reviewed: 04/01/201619996533-4399 [employer]. [address] [place] [address], [place] [address]. All righ ts reserved. This information is [...] | | | | | | ([facility]) | | | | | | | MISC | | | | | | + + + +---------+ + + | [place]-3 Fatty | Take 1 tablet by | [...] | | | | | | [place] [address] | | | | | | [phone] | | | | | | | | +--------+---------+ + + + | 06/30/ | Office | Cardiology | Smitha Griffin DO | | | 2019 | Visit | | [address] | | | | | | [place] | | | | | | [address] | | | | | | | [...] + + documented in this encounter Results NE ERCP (10/14/2016 1:06 PM PDT) + + [...] | [place] | | GastroenterologyPatient Name: November Anabellacedkirstal Date: 10/14/2016 12:25 | PROVATION | | PMMRN: [id number] #: [id number] of : 1935dmit | | | Type: AmbulatoryAge: 80Room: [facility] 01Gender: FemaleNote Status: | | | FinalizedAttending MD: Gregor Mccord [facility] | | | ERCPIndications: Biliary stent removalProviders: | | | Gregor Mccord MD, Jalyn Ring RN, [place] | | | ROBI Tello, Harinder Mcgowan [...] the anesthesiologist and | | | the communications field technician in the endoscopy suite. Mental [...] was visible on the | | | denitrator film. The esophagus was successfully intubated under [...] Scope In: 12:40:12 PMScope Out: 12:55:03 PM [place] | | | [facility] [address], [address] [place] [address] | | | [phone] | | | - Continue present medications. [...] |Scope Out: 12:55:03 PM | | | [place] [facility] [address], [address] , [place], [place] | | | [address] | | + + -+ + +---------+ [...]
--- OUTSIDE RECORDS SUMMARY | ~2019-05-11 | XMS | Encounter Summary ---
Demographics + + + | Address | [address] | | | [place] [address] | + + + | Home Phone [...] | Author | [facility] | | | and Khurramana | + + + | Organization | [facility] | | | [...] Team Providers + +------+ + | Care Healthcare Economics Consultant Name | Role | Phone | [...] 2017 | | GASTROENTEROLOGY | [address], [place] | MRCP Liver without | | | | [address] [place] | [address] [place] | contrast scheduled) | | | | [address] [place] | [address] | | | | | [address] | | | | | | [phone] | | | +--------+ + + + [...] | | | | | [place] [address] | | | | | | [phone] | | | | | | | | +--------+---------+ + + + | 06/30/ | Office | Cardiology | Smitha Griffin DO | | | 2019 | Visit | | [address] | | | | | | [place] | | | | | | [address] | | | | | | | | +--------+---------+ + + + documented as of this encounter Visit Diagnoses Not on filedocumented in this encounter"
--- OUTSIDE RECORDS SUMMARY | ~2019-05-11 | XMS | Encounter Summary ---
Demographics + + + | Address | [address] | | | [place] [address] | + + + | Home Phone [...] + + + | Author | [facility] | + + + | Organization | [facility] | + + + | [...] Team Providers + +------+ + | Care Casserole Preparer Name | Role | Phone | [...] | | [facility] [address] | | | | | | [address] | | | | | | Mailcode: OP34 [place] | | | | | | [address] | | | | | | [place], | | | | | | [place] [address] | | | | | | [phone] | | | +--------+ + + + [...] as of this encounter Progress Notes Interface, Air Deodorizer Servicer In - 07/30/2006 1:06 AM PST [address] [address] or March 20, 1997 AKIRA LEOS MD [facility] [address] [place] [address] RE:Scarlet Murguia MR#:[id number] Leos: We [...] se, as manifested by pain at rest, hot shot stiffness for greater than an hour or [...] Internal Medicine TERRY/artemio cc: Samia Montano M.D. Pulpwood Buyer, Medicine Rheumatology and Arthritis documented in this encounter Plan of Treatment Not on filedocumented as of this encounter Visit Diagnoses Not on filedocumented in this encounter
--- OUTSIDE RECORDS SUMMARY | ~2019-05-11 | XMS | Encounter Summary ---
Demographics + + + | Address | [address] | | | [place] [address] | + + + | Home Phone [...] | Author | [facility] | | | and Khurramana | + + + | Organization | [facility] [...] Providers + +------+ + | Care Sales Associate Fishing Name | Role | Phone | + [...] | | [place], | [place] [place], | | | | | [place] [address] | [place] [address] | | | | | [phone] | [phone] | | | | | | | [...] [place] | | | | | | [place] [address] | | | | | | [phone] | | | | | | | | +--------+---------+ + + + | 06/30/ | Office | Cardiology | Smitha Griffin DO | | | 2019 | Visit | | [address] | | | | | | [place] | | | | | | [address] | | | | | | | | +--------+---------+ + + + documented as of this encounter Visit Diagnoses Not on filedocumented in this encounter"
--- OUTSIDE RECORDS SUMMARY | ~2019-05-11 | XMS | Encounter Summary ---
Demographics + + + | Address | [address] | | | [place] [address] | + + + | Home Phone [...] | [facility] | | | and Khurramana | + + + | Organization | [facility] | | | and [place] [...] Team Providers + +------+ + | Care Market Master Name | Role | Phone | + [...] | | | | | Spondylolist | [address] | [address] | | | | | hesis at | Phone: | Phone: | | | | | L4-L5 level | [phone] | [phone] | | | | | Bilateral | Fax: | Fax: | | | | | lumbar | [phone] | [phone] | | | | | radiculopath | [...] | disc disease), | | | | [place], | [address] [place], | lumbar (Primary Dx); | | | | [place] [address] | [place] [address] | 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 [place] | | | | | | [address] | | | | | | | | +--------+---------+ + + + + + +--------+ + + | Name | Type | Priori | Associated Diagnoses | Order Schedule | | | | ty | | | + + +--------+ + + | AMB REFERRAL TO [facility] | Outpatient | Routin | [...]
--- OUTSIDE RECORDS SUMMARY | ~2019-05-11 | XMS | Encounter Summary ---
Demographics + + + | Address | [address] | | | [place] [address] | + + + | Home Phone [...] | [facility] | | | and Khurramana | + + + | Organization | [facility] | [...] Team Providers + +------+ + | Care Granulator Name | Role | Phone | + [...] | | [place], | [address] [place], | | | | | [place] [address] | [place] [address] | | | | | [phone] | [phone] | | | | | | | [...] [place] | | | | | | [place] [address] | | | | | | [phone] | | | | | | | | +--------+---------+ + + + | 06/30/ | Office | Cardiology | Smitha Griffin DO | | | 2019 | Visit | | [address] | | | | | | [place] | | | | | | [address] | | | | | | | | +--------+---------+ + + + documented as of this encounter Visit Diagnoses Not on filedocumented in this encounter"
--- OUTSIDE RECORDS SUMMARY | ~2019-05-11 | XMS | Encounter Summary ---
Demographics + + + | Address | [address] | | | [place] [address] | + + + | Home Phone [...] | Author | [facility] | | | and Khurramana | + + + | Organization | [facility] | | | and [place] [...] Team Providers + +------+ + | Care Mis Manager Name | Role | Phone | [...] 2017 | | GASTROENTEROLOGY | [address], [place] | ([facility]) | | | | [address] [place] | [address] [place], [place] | | | | | [address] [place], [place] | [address] | | | | | [address] | | | | | | [phone] | | | +--------+ + + + [...] | | | | | [place] [address] | | | | | | [phone] | | | | | | | | +--------+---------+ + + + | 06/30/ | Office | Cardiology | Smitha Griffin DO | | | 2020 | Visit | | [address] | | | | | | [place] | | | | | | [address] | | | | | | | | +--------+---------+ + + + documented as of this encounter Visit Diagnoses Not on filedocumented in this encounter"
--- OUTSIDE RECORDS SUMMARY | ~2019-05-11 | XMS | Encounter Summary ---
Demographics + + + | Address | [address] | | | [place] [address] | + + + | Home Phone [...] [facility] | | | and Khurramana | + + + | Organization | [facility] | | | [...] Team Providers + +------+ + | Care Political Aide Name | Role | Phone | [...] | | | | | | [place] | | | | | | [...] | | | | | [address] | [place] | | | | | [place] | [address] | | | | | [address] | | | | | | [phone] | | | +--------+ + + + [...] [address] | | eral | Forearm; hutb-hpg-xnoytd catheter | Patsy Dixon RN | Delicia [...] | | | | | [place] [address] | | | | | | [phone] | | | | | | | | +--------+---------+ + + + | 06/30/ | Office | Cardiology | Smitha Griffin DO | | | 2019 | Visit | | [address] | | | | | | [place] | | | | | | [address] | | | | | | | [...]
--- OUTSIDE RECORDS SUMMARY | ~2019-05-11 | XMS | Encounter Summary ---
Demographics + + + | Address | [address] | | | [place] [address] | + + + | Home Phone [...] Team Providers + +------+ + | Care Butter Grader Name | Role | Phone | + +------+ + PCP | Unavailable | + +------+ + Encounter Details +--------+ + + + + | Date | Type | Department | Care Team | Description | +--------+ + + + + | 03/20/ | Transcribed | [facility] at | Dictation, Other | Transcribed | | 1996 | | [facility] [address] | | | | | | [address] | | | | | | Mailcode: OP34 [address] | | | | | | [address] | | | | | | [place], | | | | | | [place] [address] | | | | | | [phone] | | | +--------+ + + + [...] as of this encounter Progress Notes Interface, Heading And Priming Operator In - 07/30/2006 1:06 AM PST [address] [address] or March 20, 1997 AKIRA LEOS MD [facility] [address] [place] [address] RE:Scarlet Murguia MR#:[id number] Leos: We saw Mrs. Scarlet Murguia for a rheumatology consultation at [facility] on March 20, 1997. The [...] se, as manifested by pain at rest, rn interventional stiffness for greater than an hour or [...] Thank you for your referral to the [facility]. Sincerely, Damaso Franks M.D. Resident, Internal Medicine TERRY/artemio cc: Samia Montano M.D. Industrial Coffee Grinder, Medicine Rheumatology and Arthritis documented in this encounter Plan of Treatment Not on filedocumented as of this encounter Visit Diagnoses Not on filedocumented in this encounter
--- OUTSIDE RECORDS SUMMARY | ~2019-05-11 | XMS | Encounter Summary ---
Demographics + + + | Address | [address] | | | [place] [address] | + + + | Home Phone [...] | [facility] | | | and Khurramana | + + + | Organization | [facility] | | | and [...] Team Providers + +------+ + | Care Sewer Pipe Press Operator Name | Role | Phone | + +------+ + PCP | Unavailable | + +------+ + Encounter Details +--------+ + + + + | Date | Type | Department | Care Team | Description | +--------+ + + + + | 10/20/ | Hospital | [facility] | | | | 1999 | Encounter | MED CTR LABORATORY | | | | | | [address] | | | | | | [place] | | | | | | [address] | | | | | | [phone] | | | +--------+ + + + [...] [place] | | | | | | [facility] [address] | | | | | | [phone] | | | | | | | | +--------+---------+ + + + | 06/30/ | Office | Cardiology | Smitha Griffin DO | | | 2019 | Visit | | [address] | | | | | | [place] | | | | | | [address] | | | | | | | | +--------+---------+ + + + documented as of this encounter Visit Diagnoses Not on filedocumented in this encounter"
--- OUTSIDE RECORDS SUMMARY | ~2019-05-11 | XMS | Encounter Summary ---
Demographics + + + | Address | [address] | | | [place] [address] | + + + | Home Phone [...] Author | [facility] | | | and Khurramana | + + + | Organization | [facility] | | | and [place] [...] Team Providers + +------+ + | Care Compensation Analyst Name | Role | Phone | [...] 2016 | | GASTROENTEROLOGY | [address], [place] | (Scheduled ERCP) | | | | [address] [place] | [address] [place], [place] | | | | | [address] [place], [place] | [address] | | | | | [address] | | | | | | [phone] | | | +--------+ + + + [...] | | | | | [place] [address] | | | | | | [phone] | | | | | | | | +--------+---------+ + + + | 06/30/ | Office | Cardiology | Smitha Griffin DO | | | 2019 | Visit | | [address] | | | | | | [place] | | | | | | [address] | | | | | | | | +--------+---------+ + + + documented as of this encounter Visit Diagnoses + + | Diagnosis | + + | Common bile duct stone - Primary Calculus of bile duct without mention of | | cholecystitis or obstruction | + + documented in this encounter"
--- OUTSIDE RECORDS SUMMARY | ~2019-05-11 | XMS | Encounter Summary ---
Demographics + + + | Address | [address] | | | [place] [address] | + + + | Home Phone [...] [facility] | | | and Khurramana | + + + | Organization | [facility] | | [...] Team Providers + +------+ + | Care Occupational Therapy Assistant Name | Role | Phone | [...] | | | | | [address] [facility] | | | | | | [address] [place] | | | | | | [address] | | | | | | [phone] | | | +--------+ + + + [...] | | | | | [place] [address] | | | | | | [phone] | | | | | | | | +--------+---------+ + + + | 06/30/ | Office | Cardiology | Smitha Griffin DO | | | 2019 | Visit | | [address] | | | | | | [place] | | | | | | [id number] | | | | | | | | +--------+---------+ + + + documented as of this encounter Visit Diagnoses Not on filedocumented in this encounter"
--- OUTSIDE RECORDS SUMMARY | ~2019-05-11 | XMS | Encounter Summary ---
Demographics + + + | Address | [address] | | | [place] [address] | + + + | Home Phone [...] + + + | Author | [facility] | + + + | Organization | [facility] | + + + | [...] Team Providers + +------+ + | Care Mutuel Department Manager Name | Role | Phone | [...] CH16[facility] | | | | | | [facility] | | | | | | and Healing, | | | | | | Building [address], 5th | | | | | | Floor [place], [place] | | | | | | [address] | | | | | | [phone] | | | +--------+ + + + [...] ls | | | | | | Received:[id number]/[id number] | | | | | | 360-16 [...] Materials | | | | | | Returned:[id number] | | | | | | 360-16 [...] [facility] | Mailcode [address], [address] | [place] [address] | | | DERMATOPATHOLOGY | [address] | | | + + + + + documented in this encounter Visit Diagnoses Not on filedocumented in this encounter"
--- OUTSIDE RECORDS SUMMARY | ~2019-05-11 | XMS | Encounter Summary ---
Demographics + + + | Address | [address] | | | [place] [address] | + + + | Home Phone [...] | Author | [facility] | | | and Khurramana | + + + | Organization | [facility] | | [...] Providers + +------+ + | Care Line Fisher Name | Role | Phone | + [...] | Gregor Brock MD | [address] | | | | | abnormality | [address] | [place], | | | | | Procedures | [place], [place] | [place] | | | | | MRI MRCP | [address] [place] | [address] | | | | | Liver wo | [place], [place] | Phone: | | | | | Contrast [place] | [address] | [phone] | | | | | MRI, | Phone: | Fax: | | | | | ABDOMEN | [phone] | [phone] | | | | | (MRI) | Fax: | | | | | | | [phone] | | +--------+--------+ + + + + [...] | Gregor Brock MD | [address] | | | | | abnormality | [address] | [place], | | | | | Procedures | [place], [place] | [place] | | | | | MRI MRCP | [address] [place] | [address] | | | | | Liver wo | [place], [place] | Phone: | | | | | Contrast [place] | [address] | [phone] | | | | | MRI, | Phone: | Fax: | | | | | ABDOMEN | [phone] | [phone] | | | | | (MRI) | Fax: | | | | | | | [phone] | | +--------+--------+ + + + + Encounter Details +--------+ + + + + | Date | Type | Department | Care Team | Description | +--------+ + + + + | 10/30/ | Hospital | [facility] | Gregor Mccord MD | Bile duct | | 2017 | Encounter | MED CTR MRI [address] | [address], [place] | abnormality | | | | [place], | [address] [place] | | | | | [place] [address] | [address] | | | | | [phone] | | | +--------+ + + + [...] | | | | | | | ([facility]) | | | | | | | MISC | | | | | | + + + +---------+ + + | [place]-3 Fatty | Take 1 tablet by | [...] [place] | | | | | | [facility] [address] | | | | | | [phone] | | | | | | | | +--------+---------+ + + + | 06/30/ | Office | Cardiology | Smitha Griffin DO | | | 2019 | Visit | | [address] | | | | | | [place] | | | | | | [address] | | | | | | | [...] JACEK | | 02/11/2016. PROTOCOL: Coronal T2 faculty member, axial T2 faculty member, coronal 3D | [facility] | | respiratory triggered, coronal [...] spine dated | | 02/11/2016.PROTOCOL: Coronal T2 faculty member, axial T2 faculty member, coronal 3D respiratory | | triggered,coronal T2 [...] A few more small subcentimeter | | R0ekkekvscnws cyst are seen within the left kidney [...] [address] | [place] | [phone] | | [facility] | | [address] | | | - IMAGING | | | | + + + + + documented in this encounter Visit Diagnoses + + | Diagnosis | + + | Bile duct abnormality Unspecified disorder of biliary tract | + + documented in this encounter"
--- OUTSIDE RECORDS SUMMARY | ~2019-05-11 | XMS | Encounter Summary ---
Demographics + + + | Address | [address] | | | [place] [address] | + + + | Home Phone [...] Author | [facility] | | | and Khurramana | + + + | Organization | [facility] | [...] Team Providers + +------+ + | Care Php Magento Developer Name | Role | Phone | [...] | | | | | hip | [address] | [address] | | | | | | Phone: | Phone: | | | | | | [phone] | [phone] | | | | | | Fax: | Fax: | | | | | | [phone] | [phone] | + + + + + + [...] | | | | | from | [address] | [address] | | | | | [place] at | [address] | [address] | | | | | [facility]CO | [place], | [place], [place] | | | | | Procedures | [place] | [address] Phone: | | | | | NEW PATIENT | [address] | [phone] | | | | | | Phone: | Fax: | | | | | | [phone] | [phone] | | | | | | Fax: | | | | | | | [phone] | | + +--------+ + + + + Encounter Details +--------+---------+ + + + | Date | Type | Department | Care Team | Description | +--------+---------+ + + + | 03/21/ | Office | [facility] | Gus Orozco, | 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 ERCP N/A 10/14/2016 Procedure: ERCP w/ stent pull; Surgeon: Gregor Mccord MD; Location: [facility] PARTIAL HYSTERECTOMY [...] Maternal Uncle Social History Occupational History Occupation: [employer] Comment: RETIRED Tobacco Use Smoking status: Never [...] MISC, Take by mouth., Disp: , Rfl: [place]-3 Fatty Acids (PRO NUTRIENTS OMEGA 3 PO), [...] 12 months?:yes Under the care of a decker operator?: no Diabetes Optimization?:well controlled diet No results found for: LABGLYC History of MRSA/MSSA infection?:no Metal sensitivity or allergy?:no Intolerance to certain specific opiate?:no DVT/PE Risk Stratification Personal history of DVT/PE?:no Cancer treatment in the last 5 years?:no Hormone replacement therapy?:no Tolerate aspirin?:asa Current Anticoagulation?:asa Chemical prophylaxis plan:asa Anticipated Discharge Plan Discharge home to care of daughter (princess), [facility] [place] [facility] Return for [...] [address] | | | | | | [place] [address] | | | | | | [phone] | | | | | | | | +--------+---------+ + + + | 06/30/ | Office | Cardiology | Smitha Griffin DO | | | 2019 | Visit | | [address] | | | | | | [place] | | | | | | [address] | | | | | | | [...]
--- OUTSIDE RECORDS SUMMARY | ~2019-05-11 | XMS | Encounter Summary ---
Demographics + + + | Address | [address] | | | [place] [address] | + + + | Home Phone [...] | Author | [facility] | | | and Khurramana | + + + | Organization | [facility] [...] Team Providers + +------+ + | Care Android Framework Developer Name | Role | Phone | [...] | | | | | | [place] | | | | | | | ANESTH,UGI | | | | | | | ENDOSCOPY | | | | | | | ERCP | | | +--------+--------+ + + + + Encounter Details +--------+ + + + + | Date | Type | Department | Care Team | Description | +--------+ + + + + | 05// | Hospital | [facility] | Gregor Mccord MD | | | 2017 | Encounter | MED CTR XRAY [address] | [address] | | | | | [place] | [address] [place], [place] | | | | | [place] [address] | [address] | | | | | [phone] | | | +--------+ + + + [...] | | | | | | ([facility]) | | | | | | | MISC | | | | | | + + + +---------+ + + | [place]-3 Fatty | Take 1 tablet by | [...] | | | | | [place] [address] | | | | | | [phone] | | | | | | | | +--------+---------+ + + + | 06/30/ | Office | Cardiology | Smitha Griffin DO | | | 2019 | Visit | | [address] | | | | | | [place] | | | | | | [id number] | | | | | | | [...]
--- OUTSIDE RECORDS SUMMARY | ~2019-05-11 | XMS | Encounter Summary ---
[...] | Author | [facility] | | | and Khurramana | + + + | Organization | [facility] | | [...] Team Providers + +------+ + | Care Bridge Contractor Name | Role | Phone | [...] + + | 03/29/ | Surgery | [facility] | Mark [place] | Posterior Total Hip | | 2019 | | [facility] | MD [address] | Arthroplasty | | | | OPERATING RO[address] | [place] | | | | | [place] | [place] [address] | | | | | [place], [place] | [phone] | | | | | [address] | | | | | | [phone] | | | +--------+---------+ + + + [...] Mark [place] MD; Location : [facility] MAIN OR PARTIAL HYSTERECTOMY 1971 [...] Code Follow up: Gus Orozco PA-C [address] [facility] [address] In 2 weeks Discharge Medications Changed Medications [...] drive until you speak with Dr. Samara ekith about this Diet Gradually resume your normal [...] + + + +---------+ + + | [place]-3 Fatty | Take 1 tablet by [...] | | | | | [place] [address] | | | | | | [phone] | | | | | | | | +--------+---------+ + + + | 06/30/ | Office | Cardiology | Smitha Griffin DO | | | 2019 | Visit | | [address] | | | | | | [place] | | | | | | [address] | | | | | | | [...] | POC | performed at [facility];[address] | | LABORATORY | | | | [address];[place], [place] | | | | | | [address] | | | | + + + + + + + + | Specimen | + + | | + + + + + + + | Performing | Address | City/State/Zipcode | Phone Number | | Organization | | | | + + + + + | [facility] | [address] | [place] [address] | [phone] | + + + + + POC [...] | POC | performed at [facility];[address] | | LABORATORY | | | | [address];[place] | | | | | | [address] | | | | + + + + + + + + | Specimen | + + | | + + + + + + + | Performing | Address | City/State/Zipcode | Phone Number | | Organization | | | | + + + + + | [facility] | [address] | [place] [address] | [phone] | + + + + + POC [...] | POC | performed at [facility];[address] | | LABORATORY | | | | [address];[place] | | | | | | [address] | | | | + + + + + + + + | Specimen | + + | | + + + + + + + | Performing | Address | City/State/Zipcode | Phone Number | | Organization | | | | + + + + + | [facility] | [address] | [place] [address] | [phone] | + + + + + Hemoglobin [...] | | | performed at [facility];[address] | | LABORATORY | | | | [address];[place] | | | | | | [address] | | | | + + + + + + + + | Specimen | + + | Blood | + + + + + + + | Performing | Address | City/State/Zipcode | Phone Number | | Organization | | | | + + + + + | [facility] | [address] | [place] [address] | [phone] | + + + + + POC [...] | POC | performed at [facility];[address] | | LABORATORY | | | | [address];[place], [place] | | | | | | [address] | | | | + + + + + + + + | Specimen | + + | | + + + + + + + | Performing | Address | City/State/Zipcode | Phone Number | | Organization | | | | + + + + + | [facility] | [address] | [place] [address] | [phone] | + + + + + POC [...] | POC | performed at [facility];[address] | | LABORATORY | | | | [address];[place], [place] | | | | | | [address] | | | | + + + + + + + + | Specimen | + + | | + + + + + + + | Performing | Address | City/State/Zipcode | Phone Number | | Organization | | | | + + + + + | [facility] | [address] | [place] [address] | [phone] | + + + + + XR [...] | POC | performed at [facility];[address] | | LABORATORY | | | | [address];[place], [place] | | | | | | [address] | | | | + + + + + + + + | Specimen | + + | | + + + + + + + | Performing | Address | City/State/Zipcode | Phone Number | | Organization | | | | + + + + + | [facility] | [address] | [place] [address] | [phone] | + + + + + Type [...] + + + | [facility] | [id number] | | [facility] | | | | | | LABORATORY | | + + + + + + | [facility] | Testing performed at | | [facility] | | | | [facility] | | LABORATORY | | | | [address];[place] [address] | | | | + + + + + + + + | Specimen | + + | Blood | + + + + + + + | Performing | Address | City/State/Zipcode | Phone Number | | Organization | | | | + + + + + | [facility] | [address] | [place] [address] | [phone] | + + + + + POC [...] | POC | performed at [facility];[address] | | LABORATORY | | | | [address];[place], [place] | | | | | | [address] | | | | + + + + + + + + | Specimen | + + | | + + + + + + + | Performing | Address | City/State/Zipcode | Phone Number | | Organization | | | | + + + + + | [facility] | [address] | [place] [address] | [phone] | + + + + + documented [...]
--- OUTSIDE RECORDS SUMMARY | ~2019-05-11 | XMS | Encounter Summary ---
Demographics + + + | Address | [address] | | | [place] [address] | + + + | Home Phone [...] | [facility] | | | and Khurramana | + + + | Organization | [facility] [...] + +------+ + | Care Director Of Food And Nutrition Services Name | Role | Phone | + [...] [place] | | | | | | [address] | | | | | | [phone] | | | +--------+ + + + [...] [address] | | | | | | [place] [address] | | | | | | [phone] | | | | | | | | +--------+---------+ + + + | 06/30/ | Office | Cardiology | Smitha Griffin DO | | | 2019 | Visit | | [address] | | | | | | [place] | | | | | | [address] | | | | | | | | +--------+---------+ + + + documented as of this encounter Visit Diagnoses + + | Diagnosis | + + | Other screening mammogram | + + documented in this encounter"
--- OUTSIDE RECORDS SUMMARY | ~2019-05-11 | XMS | Encounter Summary ---
Demographics + + + | Address | [address] | | | [place] [address] | + + + | Home Phone [...] | Author | [facility] | | | and Khurramana | + + + | Organization | [facility] | [...] Team Providers + +------+ + | Care Crystal Growing Technician Name | Role | Phone | [...] [place] | | | | | | [place], | [address] [place] | | | | | | [place] | [place], [place] | | | | | | [address] | [address] | | | | | | Phone: | Phone: | | | | | | [phone] | [phone] | | | | | | Fax: | Fax: | | | | | | [phone] | [phone] | +--------+--------+ + + + + Encounter Details +--------+---------+ + + + | Date | Type | Department | Care Team | Description | +--------+---------+ + + + | 04// | Office | [facility] | Gregor Mccord MD | Choledocholithiasis | | 2017 | Visit | GASTROENTEROLOGY | [address], [place] | (Primary Dx) | | | | [address] [place] | [address] [place], [place] | | | | | [address] [place], [place] | [address] | | | | | [address] | | | | | | [phone] | | | +--------+---------+ + + + [...] 3 Years of Education: 12 Occupational History [employer] RET[employer] Social History Main Topics Smoking status: [...] | | | | | [place] [address] | | | | | | [phone] | | | | | | | | +--------+---------+ + + + | 06/30/ | Office | Cardiology | Smitha Griffin DO | | | 2019 | Visit | | [address] | | | | | | [place] | | | | | | [address] | | | | | | | | +--------+---------+ + + + documented as of this encounter Visit Diagnoses + + | Diagnosis | + + | Choledocholithiasis - Primary Calculus of bile duct without mention of cholecystitis | | or obstruction | + + documented in this encounter
--- OUTSIDE RECORDS SUMMARY | ~2019-05-11 | XMS | Encounter Summary ---
Demographics + + + | Address | [address] | | | [place] [address] | + + + | Home Phone [...] Author | [facility] | | | and Khurramana | + + + | Organization | [facility] | [...] Team Providers + +------+ + | Care Seasonal Package Handler Name | Role | Phone | [...] [place] | | | | | [address] | [place] [address] | | | | | [phone] | [phone] | | | | | | | [...] | | | | | [place] [address] | | | | | | [phone] | | | | | | | | +--------+---------+ + + + | 06/30/ | Office | Cardiology | Smitha Griffin DO | | | 2019 | Visit | | [address] | | | | | | [place] | | | | | | [address] | | | | | | | | +--------+---------+ + + + documented as of this encounter Visit Diagnoses Not on filedocumented in this encounter"
--- OUTSIDE RECORDS SUMMARY | ~2019-05-11 | XMS | Encounter Summary ---
Demographics + + + | Address | [address] | | | [place] [address] | + + + | Home Phone [...] + | Author | [facility] | | | and Khurramana | + + + | Organization | [facility] | | | and [...] Team Providers + +------+ + | Care Sectionizer Name | Role | Phone | + [...] [address] | | | | | [address] [place], | [place], | | | | | [place] [address] | [place] [address] | | | | | [phone] | [phone] | | | | | | | [...] [address] | | | | | | [place] [address] | | | | | | [phone] | | | | | | | | +--------+---------+ + + + | 06/30/ | Office | Cardiology | Smitha Griffin DO | | | 2019 | Visit | | [address] | | | | | | [place] | | | | | | [address] | | | | | | | | +--------+---------+ + + + documented as of this encounter Visit Diagnoses Not on filedocumented in this encounter"
--- OUTSIDE RECORDS SUMMARY | ~2019-05-11 | XMS | Encounter Summary ---
Demographics + + + | Address | [address] | | | [place] [address] | + + + | Home Phone [...] | Author | [facility] | | | and Khurramana | + + + | Organization | [facility] Neal [...] Providers + +------+ + | Care Ground Nuclear Weapons Assembly Officer Name | Role | Phone | [...] | | | | | Spondylolist | [address] | [address] | | | | | hesis at | Phone: | Phone: | | | | | L4-L5 level | [phone] | [phone] | | | | | Bilateral | Fax: | Fax: | | | | | lumbar | [phone] | [phone] | | | | | radiculopath | [...] | n | al disc | PA-C [address] | | | | | displacement | [address] | [place], [place] | | | | | , lumbar | Ave | [address] Phone: | | | | | region | [place], | [phone] | | | | | | [place] | Fax: | | | | | | [address] | [phone] | | | | | | Phone: | | | | | | | [phone] | | | | | | | Fax: | | | | | | | [phone] | | +--------+--------+ + + + + Encounter Details +--------+---------+ + + + | Date | Type | Department | Care Team | Description | +--------+---------+ + + + | 02/03/ | Office | [facility] | Ray, | 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 exterminator risk can lead to osteoporosis which is [...] tablet by mouth Daily. Multiple Vitamins-Minerals ([facility]) MISC Take by mouth. [place]-3 Fatty Acids (PRO NUTRIENTS OMEGA 3 PO) [...] has no apparent deficits with short or truck terminal manager memory. She has appropriate fund [...] had a NCS performed b y a community development technician in [place]. I would like to get those records. [...] | | | | | [place] [address] | | | | | | [phone] | | | | | | | | +--------+---------+ + + + | 06/30/ | Office | Cardiology | Smitha Griffin DO | | | 2019 | Visit | | [address] | | | | | | [place] | | | | | | [address] | | | | | | | [...]
--- OUTSIDE RECORDS SUMMARY | ~2019-05-11 | XMS | Encounter Summary ---
Demographics + + + | Address | [address] | | | [place] [address] | + + + | Home Phone [...] Author | [facility] | | | and Khruramana | + + + | Organization | [facility] | | | [...] Providers + +------+ + | Care Supervisor Fertilizer Name | Role | Phone | + [...] | | Physical | Diagnoses | | [place], | | | | Medicine and | Disturbance | Ray, | MD Malcom | | | | Rehabilitatio | of skin | [place], | [address] | | | | n | sensation | PA-C [address] | [address] | | | | | Procedures | [address] | [place] | | | | | [place] MOTOR | [place] | [address] Phone: | | | | | &/SENS 1-2 | [address] | [phone] | | | | | NRV CNDJ | Phone: | Fax: | | | | | PRECONF | [phone] | [phone] | | | | | ELTRODE LIMB | Fax: | | | | | | IA NEEDLE | [phone] | | | | | | EMG EA | | | | | | | EXTREMITY | | | | | | | W/PARASPINL | | | | | | | AREA LIMITED | | | | | | | IA EMG, | | | | | | | NEEDLE, TWO | | | | | | | LIMBS [place] | | | | | | | MOTOR &/SENS | | | | | | | 3-4 NRV | | | | | | | CNDJ PRECONF | | | | | | | ELTRODE | | | | | | | LIMB IA | | | | | | | MOTOR &/SENS | | | | | | | 5-6 NRV | | | | | | | CNDJ PRECONF | | | | | | | ELTRODE | | | | | | | LIMB IA | | | | | | | NEEDLE EMG | | | | | | | EA EXTREMTY | | | | | | | W/PARASPINL | | | | | | | AREA | | | | | | | COMPLETE IA | | | | | | [...] | polyneuropathy (HCC) | | | | [place], | [address] [place] | (Primary Dx); Hyper | | | | [place] [address] | [id number] | reflexia | | | | [phone] | | | +--------+ + + + [...] [place] | | | | | | [facility] | | | | | | [place] [address] | | | | | | [phone] | | | | | | | | +--------+---------+ + + + | 06/30/ | Office | Cardiology | Smitha Griffin DO | | | 2019 | Visit | | [address] | | | | | | [place] | | | | | | [address] | | | | | | | [...] + | Malcom Mojica MD 02/26/2016 14:11 [facility] | | | Physician Group Mus[facility] Sp[facility], Physiatry [place] | | | [facility] [address] [place] [address] Ph: | | | Test Date: 02/25/2016 | | | Patient Name: Scarlet Murguia : 1935 Physician: Tomás Mojica, | | | MR #: [id number] Sex: Female Referring Physician: [place] | | [...] | | | testing done by a synthetic gem press operator and she was diagnosed with a | [...] Malcom Mojica MD Diplomate, | | | [place] Board of Physical Medicine and Rehabilitation. | [...] [address] | [place] | [phone] | | [facility] | | [address] | | | - LABORATORY | | [...] | | | | | [place], [place] | | | | | | [address] | | | | + + + [...] | [address] | [place] [address] | [phone] | + + + + + Protein [...] ELP Gamma | 9.7 | % | PROVIDELAE | | | Globulin % | | [...] MD02-27-16 | [facility] | |02-27-16 | [facility] | | | - LABORATORY | + + + + + + + + | Performing | Address | City/State/Zipcode | Phone Number | | Organization | | | | + + + + + | [facility] | [address] | [place] | [phone] | | [facility] | | [address] | | | - LABORATORY | | [...] [place] | | | | | | [address] | | | | + + + + + + + + | Specimen | + + | Blood specimen | | (specimen) | + + + + + + + | Performing | Address | City/State/Zipcode | Phone Number | | Organization | | | | + + + + + | [facility] | [address] | [place] [address] | [phone] | + + + + + Methylmalonic [...] [place] | | | | | | [address] | | | | + + + + + + + + | Specimen | + + | Blood specimen | | (specimen) | + + + + + + + | Performing | Address | City/State/Zipcode | Phone Number | | Organization | | | | + + + + + | [facility] | [address] | [place] [address] | [phone] | + + + + + Vitamin [...] [address] | [place] | [phone] | | [facility] | | [address] | | | - LABORATORY | | | | + + + + + documented in this encounter Visit Diagnoses + + | Diagnosis | + + | Peripheral polyneuropathy - Primary Unspecified hereditary and idiopathic peripheral | | neuropathy | + + | Hyper reflexia Abnormal reflex | + + documented in this encounter
--- OUTSIDE RECORDS SUMMARY | ~2019-05-11 | XMS | Encounter Summary ---
Demographics + + + | Address | [address] | | | [place] [address] | + + + | Home Phone [...] Providers + +------+ + | Care Supervisor Capacitor Processing Name | Role | Phone | + [...] | | | | | [address] | [place] | | | | | [place] | [address] | | | | | [address] | | | | | | [phone] | | | +--------+ + + + [...] [address] | | eral | Forearm; mpmi-gwa-hniukb catheter | Patsy Dixon RN | Delicia [...] | | | | | [place] [address] | | | | | | [phone] | | | | | | | | +--------+---------+ + + + | 06/30/ | Office | Cardiology | Smitha Griffin DO | | | 2019 | Visit | | [address] | | | | | | [place] | | | | | | [address] | | | | | | | [...]
--- OUTSIDE RECORDS SUMMARY | ~2019-05-11 | XMS | Encounter Summary ---
Demographics + + + | Address | [address] | | | [place] [address] | + + + | Home Phone [...] [facility] | | | and Khurramana | + + + | Organization | [facility] | | | [...] Team Providers + +------+ + | Care It Administrator Name | Role | Phone | [...] | | | | | Spondylolist | [address] | [address] | | | | | hesis at | Phone: | Phone: | | | | | L4-L5 level | [phone] | [phone] | | | | | Bilateral | Fax: | Fax: | | | | | lumbar | [phone] | [phone] | | | | | radiculopath | [...] | disc disease), | | | | [place], | [place], | lumbar (Primary Dx); | | | | [place] [address] | [place] [address] | Spondylolisthesis | | | | [phone] | [phone] | at L4-L5 level; | | | [...] | | | | | [place] [address] | | | | | | [phone] | | | | | | | | +--------+---------+ + + + | 06/30/ | Office | Cardiology | Smitha Griffin DO | | | 2020 | Visit | | [address] | | | | | | [place], [place] | | | | | | [address] | | | | | | | [...]
--- OUTSIDE RECORDS SUMMARY | ~2019-05-11 | XMS | Encounter Summary ---
Demographics + + + | Address | [address] | | | [place] [address] | + + + | Home Phone [...] + + + | Author | [facility] | + + + | Organization | [facility] | + + + | [...] Team Providers + +------+ + | Care Scrub Technician Name | Role | Phone | [...] [facility] | | | | | | [facility] | | | | | | and Healing, | | | | | | Building [address], [address]th | | | | | | Floor [place], [place] | | | | | | [address] | | | | | | [phone] | | | +--------+ + + + [...] | | | | | | skin, [id number]. The | | | | | | [...] [facility] | [address], [address] | [place] [address] | | | DERMATOPATHOLOGY | [address] | | | + + + + + documented in this encounter Visit Diagnoses + + | Diagnosis | + + | Other melanin hyperpigmentation | + + documented in this encounter
--- OUTSIDE RECORDS SUMMARY | ~2019-05-11 | XMS | Encounter Summary ---
Demographics + + + | Address | [address] | | | [place] [address] | + + + | Home Phone [...] | Author | [facility] | | | and Khurramana | + + + | Organization | [facility] [...] Team Providers + +------+ + | Care Adjunct Faculty Mathematics Department Name | Role | Phone | + [...] + + | 09/26/ | Surgery | [facility] | Gregor Mccord MD | ERCP | | 2017 | | MED CTR MP INTRA OP | [address], [place] | | | | | [address] | [address] [place] [address] | | | | | [place] | [address] | | | | | [address] | | | | | | [phone] | | | +--------+---------+ + + + [...] or severe belly or abdominal pain Fever [id number] (37.7C) or chills Upset stomach (nausea) and vomiting Black or tarry stools Date Last Reviewed: 11/25/201419990382-7241 [employer]. [address] [place] [address], [place] [address]. All righ ts reserved. This information is [...] | | | | | | ([facility]) | | | | | | | MISC | | | | | | + + + +---------+ + + | [place]-3 Fatty | Take 1 tablet by | [...] [address] | | | | | | [place] [address] | | | | | | [phone] | | | | | | | | +--------+---------+ + + + | 06/30/ | Office | Cardiology | Smitha Griffin DO | | | 2019 | Visit | | [address] | | | | | | [place] | | | | | | [address] | | | | | | | [...] | | | | VONDA SHEPPARD MD ([id number]) | | | | | | on [...] | [facility] | | GastroenterologyPatient Name: November MesaProcedure Date: 09/26/2016 | PROVATION | | 12:24 PMMRN: [id number] #: [id number] of : | | | 4Admit Type: AmbulatoryAge: 80Room: [facility] 01Gender: FemaleNote | | | Status: FinalizedAttending MD: Gregor Mccord , [facility]cedure: | | | ERCPIndications: Filling defect on intraoperative | | | cholangiogramProviders: Gregor Mccord MD, Jalyn Darden | | | ROBI Ring, Pablo Rothman MANAGER MARKET RESEARCH, | | | Laurie Hammond, Information Technology Coordinator, Paty Beverly | | | Michelle, Information Technology Coordinator, Enrique Llanos MD (Anesthesia | | | [...] | | | the anesthesiologist and the orthotic and prosthetic technician in the endoscopy suite. | | [...] the procedure | | | well.Findings: A model maker apprentice film of the abdomen was obtained. | [...] | 12:39:22 PMScope Out: 1:06:30 PM [facility] | | | [place], [address] [place] [address] | | | - Continue present medications. [...] |Scope Out: 1:06:30 PM | | | [facility], [address] [place] [address] | | | [address] | | + + -+ + +---------+ [...] | | | | VONDA SHEPPARD MD ([id number]) | | | | | | on [...]
--- OUTSIDE RECORDS SUMMARY | ~2019-05-11 | XMS | Encounter Summary ---
Demographics + + + | Address | [address] | | | [place] [address] | + + + | Home Phone [...] Author | [facility] | | | and Khurramana | + + + | Organization | [facility] | | | and [...] Team Providers + +------+ + | Care Freezer Unloader Name | Role | Phone | [...] + + | 09/26/ | Hospital | [facility] | Gregor Mccord MD | Choledocholithiasis | | 2017 | Encounter | MED CTR MP INTRA OP | [address] | (Primary Dx) | | | | [address] | [address] [place] | | | | | [place] | [address] | | | | | [address] | | | | | | [phone] | | | +--------+ + + + [...] or severe belly or abdominal pain Fever twfal951G (37.7C) or chills Upset stomach (nausea) and vomiting Black or tarry stools Date Last Reviewed: 11/25/201419995087-2850 [employer]. [address] [place] [address], [place] [address]. All righ ts reserved. This information is [...] | | | | | | | ([facility]) | | | | | | | MISC | | | | | | + + + +---------+ + + | [place]-3 Fatty | Take 1 tablet by | [...] [place] | | | | | | [place] [address] | | | | | | [phone] | | | | | | | | +--------+---------+ + + + | 06/30/ | Office | Cardiology | Smitha Griffin DO | | | 2019 | Visit | | [address] | | | | | | [place] | | | | | | [address] | | | | | | | [...] | | | | VONDA SHEPPARD MD ([id number]) | | | | | | on [...] | [facility] | | GastroenterologyPatient Name: November TurbevilleProcedure Date: 09/26/2016 | PROVATION | | 12:24 PMMRN: [id number] #: [id number] of : | | | 1935dmit Type: AmbulatoryAge: 80Room: [facility] 01Gender: FemaleNote | | | Status: FinalizedAttending MD: Gregor Mccord , MDProcedure: | | | ERCPIndications: Filling defect on intraoperative | | | cholangiogramProviders: Gregor Mccord MD, Jalyn Darden | | | ROBI Ring, Pablo Rothman CMA, | | | Laurie Hammond, Material Requirements Planning Manager, Paty Beverly | | | Michelle, Material Requirements Planning Manager, Enrique Llanos MD (Anesthesia | | | [...] | | | the anesthesiologist and the senior manufacturing technician in the endoscopy suite. | | [...] the procedure | | | well.Findings: A vice president of procurement film of the abdomen was obtained. | [...] | | 12:39:22 PMScope Out: 1:06:30 PM [facility] | | | [place], [address] [place] [address] | | | - Continue present medications. [...] |Scope Out: 1:06:30 PM | | | [facility], [address] [place] [address] | | | [address] | | + + -+ + +---------+ [...] | | | | VONDA SHEPPARD MD ([id number]) | | | | | | on [...]
--- OUTSIDE RECORDS SUMMARY | ~2019-05-11 | XMS | Encounter Summary ---
Demographics + + + | Address | [address] | | | [place] [address] | + + + | Home Phone [...] | Author | [facility] | | | and Khurramana | + + + | Organization | [facility] [...] Providers + +------+ + | Care Tank Bottom Assembler Name | Role | Phone | [...] 2017 | | GASTROENTEROLOGY | [address], [place] | ([facility]) | | | | [address] [place] | [address] [place], [place] | | | | | [address] [place], [place] | [address] | | | | | [address] | | | | | | [phone] | | | +--------+ + + + [...] | | | | | [place] [address] | | | | | | [phone] | | | | | | | | +--------+---------+ + + + | 06/30/ | Office | Cardiology | Smitha Griffin DO | | | 2020 | Visit | | [address] | | | | | | [place] | | | | | | [address] | | | | | | | | +--------+---------+ + + + documented as of this encounter Visit Diagnoses Not on filedocumented in this encounter"
--- OUTSIDE RECORDS SUMMARY | 2019-05-11 16:20 | XMS ---
PreManage Notification: JUANITA Security [place] [facility] Technician Events No recent Security Events currently on file CRITERIA MET - 6 ED Visits in 6 Months - [facility] - Has Care Guidelines - [facility] - 2 Visits in 30 Days CARE PROVIDERS ASHLEIGH GIRALDO Physician Alarm Mechanism Adjuster 03/01/2018-Current PHONE: [phone] Ashleigh Zamora Primary Care Current [facility] PHONE: Unknown NAHUM PIMENTEL Primary Care 01/13/2014-Current PHONE: Unknown Guidelines Source: [facility] Guidelines Date: 04/13/2019 Care Coordination: PATIENT HAS ORACLE CONSULTANT FROM [facility] [phone] E.DEwelina VISIT COUNT (12 MO.) 6 E[facility] Barakat TOTAL 6 NOTE: Visits indicate total known visits. ED/UCC VISIT TRACKING (12 MO.) 05/11/2019 16:18 [facility] [place] TYPE: Emergency COMPLAINT: - CHEST PAIN 05/05/2019 13:21 [facility] [place] TYPE: Emergency COMPLAINT: - FALL DIAGNOSES: - [facility] (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 - Hypothyroidism, unspecified - Strain of muscle, fascia and tendon at neck level, init - 1 Type 2 diabetes mellitus with diabetic neuropathy, unsp - Other longterm (current) drug therapy - Pure hypercholesterolemia, unspecified - Personal history of other malignant neoplasm of skin - Allergy status to oth drug/meds/biol subst status - Contusion of left shoulder, initial encounter - Cervicalgia - Other fall on same level, initial encounter - Contusion of right shoulder, initial encounter - Allergy status to sulfonamides status - Allergy status to penicillin - Contusion of left hip, initial encounter - Allergy status to other antibiotic agents status 05/02/2019 10:22 [facility] [place] TYPE: Emergency COMPLAINT: - FELL LAST NIGHT INJURED NECK AND HEAD DIAGNOSES: - Urinary tract infection, site not specified - Other oysterman (current) drug therapy - Allergy status to [...] to oth drug/meds/biol subst status - Other longterm (current) drug therapy - Personal history of other malignant neoplasm of skin - Altered mental status, unspecified - Allergy status to other antibiotic agents status 03/23/2019 20:56 [facility] [place] TYPE: Emergency COMPLAINT: - HIGH BLOOD PRESSURE DIAGNOSES: - Allergy status to penicillin - Allergy status to sulfonamides status - Other longterm (current) drug therapy - Hypothyroidism, unspecified - Allergy status to other antibiotic agents status - Essential (primary) hypertension - medical terminologist (current) use of aspirin - Personal history of malignant melanoma of skin - Elevated blood-pressure reading, w/o diagnosis of htn - 1 Type 2 diabetes mellitus with diabetic neuropathy, unsp INPATIENT VISIT TRACKING (12 MO.) 04/11/2019 09:[address] [facility] [place] TYPE: Medical [facility] COMPLAINT: - BILATERAL PE'S DIAGNOSES: - Hypothyroidism, unspecified - Essential (primary) hypertension - Allergy status to other antibiotic agents status - medical terminologist (current) use of opiate analgesic - Allergy status to oth drug/meds/biol subst status - Anemia, unspecified - Nonrheumatic aortic (valve) stenosis - Allergy status to penicillin - Other intervertebral disc degeneration, lumbar region - Allergy status to sulfonamides status - Other longterm (current) drug therapy - Hypothyroidism, unspecified - Allergy status to sulfonamides status - Gastro-esophageal reflux disease without esophagitis - medical terminologist (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 - medical terminologist (current) use of opiate analgesic - Other [...] - Allergy status to penicillin - Other oysterman (current) drug therapy - 1 Type 2 diabetes mellitus with diabetic polyneuropathy - [facility] (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 - Spondylolisthesis, lumbar [...] to oth drug/meds/biol subst status - Other longterm (current) drug therapy - Spondylolisthesis, lumbar region - Hypo-osmolality and hyponatremia - 1 Type 2 diabetes mellitus with diabetic polyneuropathy - Hypo-osmolality and hyponatremia - Gastro-esophageal reflux disease without esophagitis - Nonrheumatic aortic (valve) stenosis - Gastro-esophageal reflux disease without esophagitis - Other intervertebral disc degeneration, lumbar region - Anemia, unspecified - Other oysterman (current) drug therapy - Allergy status to [...] - Allergy status to sulfonamides status - medical terminologist (current) use of opiate analgesic - Allergy status to penicillin - Essential (primary) hypertension - Presence of left artificial hip joint - Stress incontinence (female) (male) - Allergy status to other antibiotic agents status - Hypothyroidism, unspecified - Anemia, unspecified - medical terminologist (current) use of opiate analgesic [email or web address]
[2019-05-11] MEDS ORDERED: VENLAFAXINE HCL75 M1 PO (16:29)
--- NOTE | 2019-05-11 19:08 | EKG ---
[facility] [address] [facility] [place] [address] Signed Normal sinus rhythm Nonspecific ST abnormality Abnormal ECG When compared with ECG of 02-MAY-2019 11:21, No significant change was found Confirmed by JUAN BALDWIN MD ([id number]) on 05/11/2019 7:08:13 PM Electronically Signed By: JUAN BALDWIN MD 05/11/19 [id number] PATIENT NAME: LUCHO GRANT EARL Electrocardiogram DATE OF : 31 PHYSICIAN: JUAN BALDWIN MD REPORT #: [id number] REPORT IS CONFIDENTIAL AND NOT TO BE RELEASED WITHOUT AUTHORIZATION
[2019-05-11] MEDS ORDERED: NORCO 5-325 TA1 EACH PO (19:56)
== END 2019-05-11 20:18 | disposition home or self-care (01) ==
LOC: ED 16:17
DX: R07.9 Chest pain, unspecified (principal); E11.9 Type 2 diabetes mellitus without complications; E03.9 Hypothyroidism, unspecified; E78.00 Pure hypercholesterolemia, unspecified; Z88.0 Allergy status to penicillin; Z88.2 Allergy status to sulfonamides; Z88.1 Allergy status to other antibiotic agents; Z88.8 Allergy status to other drugs, medicaments and biological substances; Z79.899 Other long term (current) drug therapy
CPT/HCPCS: 71045; 71260; 80053; 83735; 84484; 85025; 85379; 93005; 93010; 99285-25; Q9967

== ENCOUNTER 2020-02-11 19:14 | Emergency (ER) | payer MEDICARE, MEDICAID ==
[~2020-02-11] VITALS: Ht 167.6 cm; Wt 72.6 kg
--- OUTSIDE RECORDS SUMMARY | 2020-02-11 19:16 | XMS ---
PreManage Notification: JUANITA Security Clinical Audiologist Events No recent Security Events currently on file CRITERIA MET - [facility] - Has Care Guidelines CARE PROVIDERS ASHLEIGH GIRALDO Physician Filter Worker 03/01/2018-Current PHONE: [phone] Guidelines Source: [facility] Guidelines Date: 04/13/2019 Care Coordination: PATIENT [facility] [phone] Nelly VISIT COUNT ([address] 7 [facility]. TOTAL 7 NOTE: Visits indicate total known visits. ED/UCC VISIT TRACKING (12 MO.) 02/11/2020 19:14 [facility] [place] TYPE: Emergency COMPLAINT: - ABDOMINAL PAIN AND JAW PAIN 05/11/2019 16:18 [facility] [place] TYPE: Emergency COMPLAINT: - CHEST PAIN DIAGNOSES: - Allergy status to other antibiotic agents status - Type 2 diabetes mellitus without complications - Hypothyroidism, unspecified - Chest pain, unspecified - Pure hypercholesterolemia, unspecified - Allergy status to other drugs, medicaments and biological sub - Allergy status to penicillin - Other mcc (current) drug therapy - Allergy status to sulfonamides status 05/05/2019 13:21 [facility] [place] TYPE: Emergency COMPLAINT: - FALL DIAGNOSES: - jail (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 - Hypothyroidism, unspecified - Strain of muscle, fascia and tendon at neck level, initial en - Type 2 diabetes mellitus with diabetic neuropathy, unspecifie - Other long term care pharmacist (current) drug therapy - Pure hypercholesterolemia, unspecified - Personal history of other malignant neoplasm of skin - Allergy status to other drugs, medicaments and biological sub - Contusion of left shoulder, initial encounter [...] tract infection, site not specified - Other long term care pharmacist (current) drug therapy - Allergy status to other antibiotic agents status - Allergy status to penicillin - Strain of muscle, fascia and tendon at neck level, initial en - Essential (primary) hypertension - Fall on same level, unspecified, initial encounter - Hypothyroidism, unspecified - Type 2 diabetes mellitus with diabetic neuropathy, unspecifie - Allergy status to other drugs, medicaments and biological sub - Allergy status to sulfonamides status 04/06/2019 11:57 [facility] [place] TYPE: Emergency COMPLAINT: - LEFT KNEE PAIN 04/01/2019 23:24 [facility] [place] TYPE: Emergency COMPLAINT: - ALTERED MENTAL STATUS DIAGNOSES: - Type 2 diabetes mellitus with diabetic neuropathy, unspecifie - Allergy status to penicillin - Allergy status to sulfonamides status - Hypothyroidism, unspecified - Allergy status to other drugs, medicaments and biological sub - Other mcc (current) drug therapy - Personal history of other malignant neoplasm of skin - Altered mental status, unspecified - Allergy status to other antibiotic agents status 03/23/2019 20:56 [facility] [place] TYPE: Emergency COMPLAINT: - HIGH BLOOD PRESSURE DIAGNOSES: - Allergy status to penicillin - Allergy status to sulfonamides status - Other mcc (current) drug therapy - Hypothyroidism, unspecified - Allergy status to other antibiotic agents status - Essential (primary) hypertension - jail (current) use of aspirin - Personal history of malignant melanoma of skin - Elevated blood-pressure reading, without diagnosis of hyperte - Type 2 diabetes mellitus with diabetic neuropathy, unspecifie INPATIENT VISIT TRACKING (12 MO.) 04/11/2019 09:40 [facility] [place] TYPE: Medical Surgical COMPLAINT: - BILATERAL PE'S DIAGNOSES: - Hypothyroidism, unspecified - Essential (primary) hypertension - Allergy status to other antibiotic agents status - salesperson art objects (current) use of opiate analgesic - Allergy status to other drugs, medicaments and biological sub - Anemia, unspecified - Nonrheumatic aortic (valve) stenosis - Allergy status to penicillin - Other intervertebral disc degeneration, lumbar region - Allergy status to sulfonamides status - Other mcc (current) drug therapy - Hypothyroidism, unspecified - Allergy status to sulfonamides status - Gastro-esophageal reflux disease without esophagitis - jail (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 - salesperson art objects (current) use of opiate analgesic - Other intervertebral disc degeneration, lumbar region - Allergy status to other antibiotic agents status - Essential (primary) hypertension - Spondylolisthesis, lumbar region - Other pulmonary embolism without acute cor pulmonale - Stress incontinence (female) (male) - Fracture of unspecified part of neck of left femur, subsequen - Allergy status to penicillin - Other long term care pharmacist (current) drug therapy - Type 2 diabetes mellitus with diabetic polyneuropathy - salesperson art objects (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 - Spondylolisthesis, lumbar region - Other specified postprocedural states - Stress incontinence (female) (male) - Gastro-esophageal reflux disease without esophagitis - Allergy status to other drugs, medicaments and biological sub - Nonrheumatic aortic (valve) stenosis - Anemia, unspecified - Type 2 diabetes mellitus with diabetic polyneuropathy - Fracture of unspecified part of neck of left femur, subsequen - Other specified postprocedural states 04/06/2019 17:03 [facility] [place] TYPE: Medical Surgical COMPLAINT: - BILAT PE'S DIAGNOSES: - Other pulmonary embolism without acute cor pulmonale - Allergy status to other drugs, medicaments and biological sub - Other long term care pharmacist (current) drug therapy - Spondylolisthesis, lumbar region - Hypo-osmolality and hyponatremia - Type 2 diabetes mellitus with diabetic polyneuropathy - Hypo-osmolality and hyponatremia - Gastro-esophageal reflux disease without esophagitis - Nonrheumatic aortic (valve) stenosis - Gastro-esophageal reflux disease without esophagitis - Other intervertebral disc degeneration, lumbar region - Anemia, unspecified - Other mcc (current) drug therapy - Allergy status to other antibiotic agents status - Stress incontinence (female) (male) - Type 2 diabetes mellitus with diabetic polyneuropathy - Hypothyroidism, unspecified - Allergy status to penicillin - Essential (primary) hypertension - Nonrheumatic aortic (valve) stenosis - Other intervertebral disc degeneration, lumbar region - Hyperlipidemia, unspecified - Allergy status to sulfonamides status - Hyperlipidemia, unspecified - Allergy status to other drugs, medicaments and biological sub - Presence of left artificial hip joint - Spondylolisthesis, lumbar region - Allergy status to sulfonamides status - jail (current) use of opiate analgesic - Allergy status to penicillin - Essential (primary) hypertension - Presence of left artificial hip joint - Stress incontinence (female) (male) - Allergy status to other antibiotic agents status - Hypothyroidism, unspecified - Anemia, unspecified - salesperson art objects (current) use of opiate analgesic [email or web address]
[2020-02-11] MEDS ORDERED: FOLBIC TABLET1 EACH PO (19:40)
[2020-02-11] MEDS ORDERED: ZOFRAN4 MG PO (20:11)
[2020-02-11] MEDS ORDERED: PROTONIX40 MG PO (20:11)
--- NOTE | 2020-02-12 12:51 | EKG ---
[facility] [address] [place], [place] [address] Signed Normal sinus rhythm Normal ECG No previous ECGs available Confirmed by JENNIE VERNON DO ([id number]) on 02/12/2020 12:50:51 PM Electronically Signed By: JENNIE VERNON DO 02/12/20 1251 PATIENT NAME: LUCHO GRANT Electrocardiogram DATE OF : 31 PHYSICIAN: JENNIE VERNON DO REPORT #: [id number] REPORT IS CONFIDENTIAL AND NOT TO BE RELEASED WITHOUT AUTHORIZATION
== END 2020-02-11 20:57 | disposition home or self-care (01) ==
LOC: ED 19:14
DX: R10.13 Epigastric pain (principal); E78.00 Pure hypercholesterolemia, unspecified; I10 Essential (primary) hypertension; E03.9 Hypothyroidism, unspecified; E11.40 Type 2 diabetes mellitus with diabetic neuropathy, unspecified; Z88.0 Allergy status to penicillin; Z88.2 Allergy status to sulfonamides; Z88.1 Allergy status to other antibiotic agents; Z79.899 Other long term (current) drug therapy
CPT/HCPCS: 71045; 80053; 83690; 83735; 84484; 85025; 93005; 93010; 96374; 96375; 99284-25; C9113; J2405

== ENCOUNTER 2020-02-17 13:22 | Emergency (ER) | payer MEDICARE, MEDICAID ==
[~2020-02-17] VITALS: Ht 167.6 cm; Wt 72.6 kg
--- OUTSIDE RECORDS SUMMARY | ~2020-02-17 | XMS | Encounter Summary ---
Demographics + + + | Address | [address] | | | [place] [address] | + + + | Home Phone | | + + + | Preferred Language | Unknown | + + + | Marital Status | | + + + | Anglican Affiliation | 1077 | + + + | Race | White | + + + | Ethnic Group | Not or | + + + Author + + + | Author | [facility] | | | and [place] | + + + | Organization | [facility] | | | [...] Team Providers + +------+ + | Care Shipping And Receiving Operator Name | Role | Phone | + +------+ + | Susan Leos | PCP | | | PA-C | | | + +------+ + Reason for Referral Diagnostic/Screening (Routine) +--------+--------+ + + + + | Status | Reason | Specialty | Diagnoses / | Referred By | Referred To | | | | | Procedures | Contact | Contact | +--------+--------+ + + + + | Closed | | Radiology | Diagnoses | Suri, | [facility] | | | | | Bile duct | Gregor Brock MD | [address] | | | | | abnormality | [address] | [place], | | | | | Procedures | [address], [place] | [place] | | | | | MRI MRCP | [address] [place] | [address] | | | | | Liver wo | [place], [place] | Phone: | | | | | Contrast [place] | [address] | [phone] | | | | | MRI, | Phone: | Fax: | | | | | ABDOMEN | [phone] | [phone] | | | | | (MRI) | Fax: | | | | | | | [phone] | | +--------+--------+ + + + + Reason for Visit +--------+--------+ + | Reason | Onset | Comments | | | Date | | +--------+--------+ + | Other | 10/15/ | | | | 2016 | | +--------+--------+ + Encounter Details +--------+ + + + + | Date | Type | Department | Care Team | Description | +--------+ + + + + | 10/15/ | Telephone | [facility] | Gregor Mccord MD | Other | | 2017 | | GASTROENTEROLOGY | [address], [place] | | | | | [address] [place] | [address] [place], [place] | | | | | [address] [place], [place] | [address] | | | | | [address] | | | | | | [phone] | | | +--------+ + + + [...] this encounter Miscellaneous Notes Telephone Encounter - Sonali Garcia RN - 10/15/2016 1:15 PM [facility] stent pull yesterday. She reports she had vomiting last night and diarr hea. She states she did call Dr Mccord. Vomiting stopped about 1am. Continues to have some diarrhea. No fever but had chilling last night. No pain. She states she is doing better t gretchen. Discussed with her that Dr. Mccord recommends an MRCP in 2-3 weeks. I we will obtain authorization and then schedule for patient. She is not available November 03 or November 07. Edna decker is agreeable to [facility] for her MRCP documented in this encounter Plan of Treatment +--------+ + + + + | Date | Type | Specialty | Care Team | Description | +--------+ + + + + | 02/21/ | Appointment | Pain Medicine | Sam Samuels DO | | | 2019 | | | [address] | | | | | | [place] [address] | | | | | | [phone] | | | | | | | | +--------+ + + + + | 05/17/ | Office | Cardiology | Jeniffer Haines | | | 2019 | Visit | | [address] | | | | | | [address] | | | | | | [place] [address] | | | | | | [phone] | | | | | | | | +--------+ + + + + documented as of this encounter Results MRI MRCP Liver wo Contrast (10/30/2016 1:09 PM PDT) + + | Specimen | + + | | + + + + + | Narrative | Performed At | + + + | MRI MRCP LIVER WO CONTRAST 10/30/2016 1:05 PM HISTORY:?Narrowing | [facility] | | to mid common bile duct. COMPARISON: Lumbar spine dated | [facility] | | 02/11/2016. PROTOCOL: Coronal T2 tractor trailer mechanic, axial T2 tractor trailer mechanic, coronal 3D | [facility] | | respiratory triggered, coronal T2 thin slab, T2 thick slab set. | - IMAGING | | Reconstruction views were obtained. FINDINGS: Mild long segment | | | dilatation of the common hepatic duct which measures up to 9 mm in | | | caliber with tapering of the mid common bile duct down to a diameter | | | of 3 mm as it enters the pancreatic head. Otherwise, no other | | | evidence of intrahepatic or extrahepatic biliary ductal dilatation. | | | No evidence of pancreatic ductal dilatation. No evidence of stricture | | | or mass involving the common hepatic. There appears to be a tiny | | | cystic lesion within the pancreatic head. Gallbladder is surgically | | | absent. Remnant cystic duct is patent. Normal appearance of the | | | liver, spleen, pancreas, adrenal glands, and right kidney. A small | | | simple cyst is seen within the right hepatic lobe. Multiple simple | | | cysts are seen within the left kidney. A few more small subcentimeter | | | T2 hypointense cyst are seen within the left kidney which cannot be | | | further characterized. Visualized bowel shows no acute | | | abnormality. No suspicious wall thickening or dilatation identified. | | | No evidence of para-aortic or mesenteric lymphadenopathy. No acute | | | osseous abnormality identified. Multilevel degenerative changes are | | | present. IMPRESSION - Mild long segment dilatation of the common | | | hepatic duct with tapering at the level of the common bile duct as it | | | enters the pancreatic head which narrows to a diameter of 3 mm the | | | remainder of the CBD. CBD stricture is considered within the | | | differential. Two small subcentimeter T2 hypointense lesions are | | | seen within the upper pole and lower pole of the left kidney, not | | | confidently identified on prior imaging of the lumbar spine and | | | indeterminant without the use of T1 or postcontrast imaging. Left | | | renal ultrasound may be considered for further evaluation. | | | Dictated and Signed by: Jayro Camacho MD Electronically signed: | | | 10/31/2016 9:58 AM | | + + + + + | Procedure Note | + + | Howard, Rad Results In - 10/31/2016 10:01 AM PDT MRI MRCP LIVER WO CONTRAST 10/30/2016 | | 1:05 PM HISTORY:?Narrowing to mid common bile duct.COMPARISON: Lumbar spine dated | | 02/11/2016.PROTOCOL: Coronal T2 tractor trailer mechanic, axial T2 tractor trailer mechanic, coronal 3D respiratory | | triggered,coronal T2 thin slab, T2 thick slab set. Reconstruction views were | | obtained.FINDINGS:Mild long segment dilatation of the common hepatic duct which measures | | up to 9mm in caliber with tapering of the mid common bile duct down to a diameter of | | 3mm as it enters the pancreatic head. Otherwise, no other evidence ofintrahepatic or | | extrahepatic biliary ductal dilatation. No evidence ofpancreatic ductal dilatation. No | | evidence of stricture or mass involving thecommon hepatic. There appears to be a tiny | | cystic lesion within the pancreatichead. Gallbladder is surgically absent. Remnant | | cystic duct is patent.Normal appearance of the liver, spleen, pancreas, adrenal glands, | | and rightkidney. A small simple cyst is seen within the right hepatic lobe. | | Multiplesimple cysts are seen within the left kidney. A few more small subcentimeter | | [id number] cyst are seen within the left kidney which cannot be | | furthercharacterized.Visualized bowel shows no acute abnormality. No suspicious wall | | thickening ordilatation identified. No evidence of para-aortic or mesenteric | | lymphadenopathy.No acute osseous abnormality identified. Multilevel degenerative changes | | arepresent.IMPRESSION -Mild long segment dilatation of the common hepatic duct with | | tapering at thelevel of the common bile duct as it enters the pancreatic head which | | narrows toa diameter of 3 mm the remainder of the CBD. CBD stricture is considered | | withinthe differential.Two small subcentimeter T2 hypointense lesions are seen within | | the upper poleand lower pole of the left kidney, not confidently identified on prior | | imagingof the lumbar spine and indeterminant without the use of T1 or | | postcontrastimaging. Left renal ultrasound may be considered for further | | evaluation.Dictated and Signed by: Jayro Camacho MD Electronically signed: 10/31/2016 | | 9:58 AM | | | |No acute osseous abnormality identified. Multilevel degenerative changes are | |present. | | | |IMPRESSION - | |Mild long segment dilatation of the common hepatic duct with tapering at the | |level of the common bile duct as it enters the pancreatic head which narrows to | |a diameter of 3 mm the remainder of the CBD. CBD stricture is considered within | |the differential. | | | |Two small subcentimeter T2 hypointense lesions are seen within the upper pole | |and lower pole of the left kidney, not confidently identified on prior imaging | |of the lumbar spine and indeterminant without the use of T1 or postcontrast | |imaging. Left renal ultrasound may be considered for further evaluation. | | | |Dictated and Signed by: Jayro Camacho MD | | Electronically signed: 10/31/2016 9:58 AM | + + + + + + + | Performing | Address | City[facility] | Phone Number | | Organization | | | | + + + + + | [facility] | [address] 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
--- OUTSIDE RECORDS SUMMARY | ~2020-02-17 | XMS | Encounter Summary ---
Demographics + + + | Address | [address] | | | [place] [address] | + + + | Home Phone | | + + + | Preferred Language | Unknown | + + + | Marital Status | | + + + | Yazdanism Affiliation | 1077 | + + + | Race | White | + + + | Ethnic Group | Not or | + + + Author + + + | Author | [facility] | | | and [place] | + + + | Organization | [facility] | | [...] Team Providers + +------+ + | Care Director Environmental Name | Role | Phone | + +------+ + | Susan Leos | PCP | | | PA-C | | | + +------+ + Encounter Details +--------+ + + + + | Date | Type | Department | Care Team | Description | +--------+ + + + + | 09/24/ | Episode | [facility] | Sonali Garcia | | | 2017 | Changes | GASTROENTEROLOGY | M, RN | | | | | [address] | | | | | | [address] [place] | | | | | | [address] | | | | | | [phone] | | | +--------+ + + + [...] [address] | | | | | | [place] [address] | | | | | | [phone] | | | | | | | | +--------+ + + + + | 05/17/ | Office | Cardiology | Jeniffer Haines | | | 2019 | Visit | | [address] | | | | | | [address] | | | | | | [place] [address] | | | | | | [phone] | | | | | | | | +--------+ + + + + documented as of this encounter Visit Diagnoses Not on filedocumented in this encounter"
--- OUTSIDE RECORDS SUMMARY | ~2020-02-17 | XMS | Encounter Summary ---
Demographics + + + | Address | [address] | | | [place] [address] | + + + | Home Phone | | + + + | Preferred Language | Unknown | + + + | Marital Status | | + + + | Amish Affiliation | 1077 | + + + [...] Team Providers + +------+ + | Care Etymology Teacher Name | Role | Phone | + +------+ + | Susan Leos | PCP | | | PA-C | | | + +------+ + Encounter Details +--------+ + + + + | Date | Type | Department | Care Team | Description | +--------+ + + + + | 12/21/ | Hospital | [facility] | Motaghi, Sam, DO | | | 2020 | Encounter | [facility] | [address] | | | | | XRAY [address] | [place] [address] | | | | | [address], | [phone] | | | | | [place] [address] | | | | | | [phone] | | | +--------+ + + + [...] | | 0 | | | | [id number] | mouth Daily. | | | | [...] | | 2019 | | | [address] [facility] | | | | | | [place] [address] | | | | | | [phone] | | | | | | | | +--------+ + + + + | 05/17/ | Office | Cardiology | Jeniffer Haines | | | 2019 | Visit | | [address] | | | | | | [address] | | | | | | [place] [address] | | | | | | [phone] | | | | | | | | +--------+ + + + + + +---------+--------+ + + | Name | Type | Priori | Associated Diagnoses | Date/Time | | | | ty | | | + +---------+--------+ + + | FL C-Arm | Imaging | Routin | | 12/22/2019 10:06 AM | | | | e | | PDT | + +---------+--------+ + + documented as of this encounter Visit Diagnoses Not on filedocumented in this encounter"
--- OUTSIDE RECORDS SUMMARY | ~2020-02-17 | XMS | Encounter Summary ---
Demographics + + + | Address | [address] | | | [place] [address] | + + + | Home Phone | | + + + | Preferred Language | Unknown | + + + | Marital Status | | + + + | Zoroastrian Affiliation | 1077 | + + + | Race | White | + + + | Ethnic Group | Not or | + + + Author + + + | Author | [facility] | | | and [place] | + + + | Organization | [facility] | | | [...] Team Providers + +------+ + | Care Vacuum Plastic Forming Machine Operator Name | Role | Phone [...] | | | | | | | [place] ERCP DX | | | | | [...] + + | 09/26/ | Hospital | [facility] | Gregor Mccord MD | Choledocholithiasis | | 2017 | Encounter | [facility] | [address], [place] | (Primary Dx) | | | | [address] | [address] | | | | | [place] | [address] | | | | | [address] | | | | | | [phone] | | | +--------+ + + + [...] or severe belly or abdominal pain Fever [id number] (37.7C) or chills Upset stomach (nausea) and vomiting Black or tarry stools Date Last Reviewed: 11/25/201419992505-0842 [employer]. [address] [place] [address]. All righ ts reserved. This information is [...] mg | Daily. | | | | 0 | | tablet | | | | | | + + + +---------+ + + | Calcium | Take 1 tablet by | | 0 | | | | Carb-Cholecalciferol | mouth 2 times daily. | | | | 0 | | (CALCIUM 500 + D3 | | | | | | | PO) | | | | | | + + + +---------+ + + | Garlic 1000 MG | Take 1 tablet by | | 0 | | | | CAPS | mouth Daily. | | | | 0 | + + + +---------+ + + [...] | mouth Daily. | | | | 0 | + + + +---------+ + + | Multiple | Take by mouth. | | 0 | | | | Vitamins-Minerals | | | | | 0 | | ([facility]) | | | | | | | MISC | | | | | | + + + +---------+ + + | [place]-3 Fatty | Take 1 tablet by | | 0 | | | | Acids (PRO NUTRIENTS | mouth Daily. | | | | 0 | | OMEGA 3 PO) | | [...] + + documented as of this encounter H&P Notes Gregor Mccord MD - 09/26/2016 12:30 PM PDTThe patient denies any change in health status and seen in the office. The patient's questions are answered consent form signed proceed wi th ERCP, duct stone removal arriGregor MD - 09/17/2016 5:08 PM PDTFormatting of this note might be different f rom the original. Subjective: Patient ID: Scarlet Murguia is a 80 y.o. female. 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 Common bile duct was accessed by wire only confirmed by dye injection. Pancreatic duct was not entered either by wire or dye injection. A 1 cm sphincterotomy was done in a stepwise fashion with minimal bleeding. Th e common bile duct was swept multiple times within 02/24 balloon from the hepatic bifurcation to the duodenum delivering some sludge but no documented stone. Due to the same and the fa ct that the ampulla was edematous following the procedure due to multiple passages of the ba lloon a 10 -5 stent was placed to ensure adequate drainage . Patient will return in 2 to 4 weeks for stent removal and repeat evaluation of the common bile duct for residual stone t he patient was given indomethacin suppositories hundred milligrams prior to the procedureEle ctronically signed by Gregor Mccord MD at 09/26/2016 1:24 PM PDTD-C Instructions Provation - Gregor Mccord MD - 09/26/2016 12:24 PM PDTERCP DISCHARGE INSTRUCTIONS Patient: Scarlet Murguia : 1935 Acct: [id number] Exam Date: Monday, September 26, 2016 Doctor: Gregor Mccord MD Today your physcian performed an ERCP. The purpose of this handout is to provide you with information/discharge instructions following the procedure. Due to the medications we used to make you more comfortable during the procedure, we strongly advise the following: DO NOT drive or operate machinery for the next 24 hours. DO NOT smoke or drink any alcohol ic beverages for the next 24 hours. DO NOT take any sleeping pills or tranquilizers for the reaminder of the day. However, you may resume all your other medications. PLEASE avoid making any critical decisions, including signing any legal documents for the next 24 hours. DO NOT care for any small children without assistance for the next 24 hours. There are man y common side-effects that can occur as a result of the exam. Below we have listed a few a nd how to resolve them. It is normal to feel some nausea or abdominal pressure following the procedure due to the remaining air. Passing air will help relieve this pressure (burping or passing gas). You may have a mild sore throat for the remainder of the day. Sucking on ice chips, throa t lozenges or warm water gargles will help to relieve this discomfort. Sometimes the medications given to you during the exam can aggravate the veins. The chemi destinee irritation can cause inflammation or pain along the arm with redness, swelling and warm th. This does not mean there is an infection. You can treat the affected area by applying warm, wet compresses (towels) 4 times a day for 20 minutes at a time until inflammation is resolved. Following your procedure we recommend eating a soft/bland low-fat diet for 1 da y. Avoiding fatty foods such as [place], hamburgers, carrera, ham and pork products, wi ll reduce your risks of becoming nauseated and having abdominal discomfort. As with any procedure, there are potential complications that may occur. We would like yo u to call immediately if any of the following arise: Severe abdominal pain or vomiting. Th is could be a sign of pancreatitis (inflammation of your pancreas). Severe vomiting with the inability to tolerate fluids. Any vomiting of blood or what may look like coffee grounds. A temperature greater than 100 .5 degrees. Bloody or black, tarry stools. Shortness of breath or difficulty swallowing. Your doctor recommends these additional instructions: Avoid aspirin and nonsteroidal anti-inflammatory medications for one day. You are being di scharged to home. Eat a mechanical soft diet today. Continue your present medications. Your physician has recommended a repeat ERCP in two weeks to remove stent. Return to your primary care physician as previously scheduled. Telephone your GI clinic if symptoms are pr esent. Please call your physician at Work: with any questions or concerns you may have following your procedure. Patient's Signature Nurse's Signature Date: Escort's Sanjuanita Mccord MD 09/26/2016 1:21:22 PM This report has been signed electronically.Electronically signed by Gregor Mccord MD at 1:21 PM [facility] Ana Moon Chaplain - 09/26/2016 12:12 PM PDTPro blem: Patient Care Overview (Adult) Goal: Care Team Goals & Evaluation PROBLEM-RELATED GOALS: STRATEGY TO ACHIEVE GOALS: RESTRAINT-RELATED GOALS: STRATEGIES TO ACHIEVE RESTRAINT GOALS: Spiritual Care Scarlet Murguia is a 80 y.o. female who is admitted for Common bile duct stone (K80.50). Spiritual Evaluation: Mems Device Scientist received an electronic referral that the patient had requ ested prayer before surgery. Scarlet was waiting alone lying on the gurney. She cheerfully we lcomed a opener verifier packer customs visit. She said that her family gathered around her and offered prayer la night. She is a member of [employer] and asked that the presybeterian be no tified of her hospitalization. She has a strong virginie and belief in prayer. Spiritual Intervention: Offered pastoral presence and encouragement. Shared prayer. Left a message for the vehicle service attendant at [employer] Spiritual Outcomes: Scarlet expressed her appreciation for the visit and prayer Spiritual Goals/Follow-up: Scarlet anticipates discharge following her procedure today. No n eeds for follow up. documented in this encounter Plan of Treatment +--------+ + + + + | Date | Type | Specialty | Care Team | Description | +--------+ + + + + | 02/21/ | Appointment | Pain Medicine | Sam Samuels DO | | | 2019 | | | [address] [facility] | | | | | | [place] [address] | | | | | | [phone] | | | | | | | | +--------+ + + + + | 05/17/ | Office | Cardiology | Jeniffer Haines | | | 2020 | Visit | | [address] | | | | | | [address] | | | | | | [place] [address] | | | | | | [phone] | | | | | | | [...] | | | | VONDA SHEPPARD MD ([id number]) | | | | | | on [...] | [facility] | | GastroenterologyPatient Name: November Fountain GreenProcedure Date: 09/26/2016 | PROVATION | | 12:24 PMMRN: [id number] #: [id number] of : | | | 1935dmit Type: AmbulatoryAge: 80Room: [facility] 01Gender: FemaleNote | | | Status: FinalizedAttending MD: Gregor Mccord , [facility]rocedure: | | | ERCPIndications: Filling defect on intraoperative | | | cholangiogramProviders: Gregor Mccord MD, Jalyn Darden | | | ROBI Ring, Pablo Rothman CMA, | | | Laurie Hammond, Adult Ministries DirectorPaty | | | Michelle, Adult Ministries Director, Enrique Llanos MD (Anesthesia | | | [...] | | | the anesthesiologist and the process mold technician in the endoscopy suite. | | [...] the procedure | | | well.Findings: A salad maker film of the abdomen was obtained. | [...] | | 12:39:22 PMScope Out: 1:06:30 PM [facility] | | | [place], [address] [place] [id number] | | | - Continue present medications. [...] |Scope Out: 1:06:30 PM | | | [facility], [address] [place] [address] | | | [phone] | | + + -+ + +---------+ [...] | | | | VONDA SHEPPARD MD ([id number]) | | | | | | on [...] 12:38 | | | | | Starting Fri 17 at 1238 | | PM PDT | [...] | | | | PRN, Nausea, Starting Thu09/26/16 | | PM PDT | | | | | at 1316, For 1 dose, | | | | | | | Recovery/Phase I | | | | | | + +-------+ +------+---+---+ +---+---+ | | | +---+---+ documented in this encounter
--- OUTSIDE RECORDS SUMMARY | ~2020-02-17 | XMS | Encounter Summary ---
Demographics + + + | Address | [address] | | | [place] [address] | + + + | Home Phone | | + + + | Preferred Language | Unknown | + + + | Marital Status | | + + + | Taoist Affiliation | 1077 | + + + | Race | White | + + + | Ethnic Group | Not or | + + + Author + + + | Author | [facility] | | | and [place] | + + + | Organization | [facility] | | | [...] Team Providers + +------+ + | Care Tunnel Man Name | Role | Phone | + +------+ + PCP | Unavailable | + +------+ + Encounter Details +--------+ + + + + | Date | Type | Department | Care Team | Description | +--------+ + + + + | 10/20/ | Hospital | [facility] | | | | 1999 | Encounter | [facility] | | | | | | [address] | | | | | | [place] | | | | | | [address] | | | | | | [phone] | | | +--------+ + + + [...] [address] | | | | | | [place] [address] | | | | | | [phone] | | | | | | | | +--------+ + + + + | 05/17/ | Office | Cardiology | Jeniffer Haines | | | 2019 | Visit | | [address] | | | | | | [address] | | | | | | [place] [address] | | | | | | [phone] | | | | | | | | +--------+ + + + + documented as of this encounter Visit Diagnoses Not on filedocumented in this encounter"
--- OUTSIDE RECORDS SUMMARY | ~2020-02-17 | XMS | Encounter Summary ---
Demographics + + + | Address | [address] | | | [place] [address] | + + + | Home Phone | | + + + | Preferred Language | Unknown | + + + | Marital Status | | + + + | Mandaen Affiliation | 1077 | + + + | Race | White | + + + | Ethnic Group | Not or | + + + Author + + + | Author | [facility] | | | and [place] | + + + | Organization | [facility] | | | and [...] Team Providers + +------+ + | Care Construction Teacher Name | Role | Phone | + +------+ + | Susan Leos | PCP | | | PA-C | | | + +------+ + Reason for Visit + +--------+ + | Reason | Onset | Comments | | | Date | | + +--------+ + | Post-op Problem | 05/05/ | MADELYN 03/29/19 | | | 2019 | | + +--------+ + Encounter Details +--------+ + + + + | Date | Type | Department | Care Team | Description | +--------+ + + + + | 05/05/ | Telephone | [facility] | [place] | Post-op Problem (MADELYN | | 2018 | | [place] [address] | MD Alaina [address] | 03/29/19) | | | | [address] [place], [place] | [place] [address] | | | | | [address] | [place] [address] | | | | | [phone] | [phone] | | | | | | | [...] this encounter Miscellaneous Notes Telephone Encounter - Haylie Calvin - 05/05/2019 11:07 AM PSTI spoke with jeffrey Dickens at length regarding the post operative care and issues of the patient Scarlet. MADELYN sol rmed on 03/29/19. Daughter states that she had post operative issues and was seen/treated in [place]. Daughter states that she attempted to call into office several times with no ret urn communication. I did state to Chrissie that I do see her initial call into the office. Th at phone call was returned by the RN who spoke with the patient. Chrissie was unaware that he r mother had spoken to Scarlet twice on 04/05/19. Chrissie did express concern that Scarlet was not DC'd with an anticoagulant. I was able to look at the discharge meds and see that she was g iven 325mg aspirin. I encouraged her to discuss her concerns with Dr. [place] and/or Monica quijano. I stated that I would discuss this with Dr. [place] as well. She had no other questio ns or concerns. All of her questions were answered. documented in this encounter Plan of Treatment +--------+ + + + + | Date | Type | Specialty | Care Team | Description | +--------+ + + + + | 02/21/ | Appointment | Pain Medicine | Sam Samuels, | | | 2019 | | | [address] | | | | | | [place] [address] | | | | | | [phone] | | | | | | | | +--------+ + + + + | 05/17/ | Office | Cardiology | Jeniffer Haines | | | 2020 | Visit | | [address] | | | | | | [place] | | | | | | [place] [address] | | | | | | [phone] | | | | | | | | +--------+ + + + + documented as of this encounter Visit Diagnoses Not on filedocumented in this encounter"
--- OUTSIDE RECORDS SUMMARY | ~2020-02-17 | XMS | Encounter Summary ---
Demographics + + + | Address | [address] | | | [place] [address] | + + + | Home Phone | | + + + | Preferred Language | Unknown | + + + | Marital Status | | + + + | Sikhism Affiliation | 1077 | + + + | Race | White | + + + | Ethnic Group | Not or | + + + Author + + + | Author | [facility] | | | and [place] | + + + | Organization | [facility] | | [...] Team Providers + +------+ + | Care Manager Market Intelligence Name | Role | Phone | + [...] + + | 03/29/ | Anesthesia | [facility] | Michela Eli | | | 2019 | [facility] | MD Jena [address] | | | | | [address]PER[address] | [place], [place] | | | | | [facility] | [address] | | | | | [place] | | | | | | [address] | | | | | | [phone] | | | +--------+ + + + + Anesthesia Record + + + + + | Procedure Name | Responsible | Anesthesia Start | Anesthesia Stop Time | | | Anesthesiologist | Time | | + + + + + | Posterior Total Hip | Michela Eli, | 03/29/19726 | 03/29/19913 | | Arthroplasty (Left | MD | | | | Hip) | | | | + + + + + +----+---+ + + | Da | T | Event | Comment | | te | i | | | | | m | | | | | e | | | +----+---+ + + | 10 | 0 | | | | /1 | 7 | | | | 5/ | 2 | | | | 20 | 7 | | | | 19 | | | | +----+---+ + + | | 0 | An Start | Reassessment prior to anesthesia induction/procedure. | | | 7 | | | | | 2 | | | | | 7 | | | +----+---+ + + | | 0 | Block Start | | | | 7 | | | | | 3 | | | | | 5 | | | +----+---+ + + | | 0 | AN Block | | | | 7 | End | | | | 4 | | | | | 1 | | | +----+---+ + + | | 0 | Antibiotic | | | | 7 | Given | | | | 4 | | | | | 2 | | | +----+---+ + + | | 0 | [place] | | | | 8 | 43-degrees | | | | 0 | | | | | 1 | | | +----+---+ + + | | 0 | First | | | | 8 | Inc/Proc St | | | | 0 | | | | | 2 | | | +----+---+ + + | | 0 | Antibiotic | | | | 8 | Given | | | | 1 | | | | | 2 | | | +----+---+ + + | | 0 | Anesthesia | | | | 8 | Ready | | | | 1 | | | | | 2 | | | +----+---+ + + | | 0 | an stop | | | | 9 | data | | | | 1 | | | | | 1 | | | +----+---+ + + | | 0 | An Stop | Patient handed off to recovery nurse. | | | 1 | | | | | 4 | | | +----+---+ + + +------+ | Meds | +------+ + + + | Name | Total | + + + | propofol | 20 mg | + + + | propofol infusion | 384.42 mg | + + + | ePHEDrine | 30 mg | + + + | ondansetron | 4 mg | + + + | ceFAZolin in dextrose (ANCEF) | 2 g | | IVPB 2 g | | + + + | bupivacaine 0.75%-dextrose 8.25% | 12 mg | | (MARCAINE SPINAL) | | + + + | tranexamic acid (CYKLOKAPRON) | 1,000 mg | | 1,000 mg in sodium chloride 0.9% | | | 50 mL IVPB | | + + + | tranexamic acid (CYKLOKAPRON) | 1,000 mg | | 1,000 mg in sodium chloride 0.9% | | | 50 mL IVPB | | + + + | balanced electrolytes in water | 800 mL | | (PLASMALYTE-148/NORMOSOL-R) | | | infusion | | + + + + + | Name | + + | N2O Flow Rate (L/Min) | + + | O2 Flow Rate (L/Min) | + + | Insp O2 | + + | Exp N2O | + + | Air Flow Rate (L/Min) | + + | Secondary O2 Flow Rate | + + + + | No blood administrations on file. | + + +--------+ + + + | Type | Details | Placement | Removal | +--------+ + + + | Wound | 03/29/19; 0902; Incision; Left; | 03/29/19 0902 by | | | | hip | Tiffanie Oneal | | | | | ROBI Farnsworth | | +--------+ + + + | Periph | 03/29/19; 0700; Left; Forearm; | 03/29/19 0700 by | 03/30/19 043 by | | roslyn | [id number] catheter system; | Paula Young RN | Deedee Gerardo RN | | IV | 18 gauge; Blood Bank; | | | | | distraction; site symptomatic; | | | | | 03/30/19; 0431 | | | +--------+ + + + documented in this encounter Social History + +-------+ +--------+------+ | Tobacco [...] + + documented as of this encounter OR Notes Anesthesia Postprocedure Evaluation - Michela Eli MD - 03/29/2019 11:33 AM PDTForm atting of this note might be different from the original. ANESTHESIA POSTANESTHESIA EVALUATION November Murguia 83 y.o. female 1935 [id number] Procedure(s) Posterior Total Hip Arthroplasty (Left Hip) REMOVE HARDWARE LOWER EXTREMITY-HIP (Left Hip) Cooperates? Yes Mental Status Performs simple tasks. Respiratory Satisfactory - Airway patent (self maintained). Cardiovascular Satisfactory - Blood pressure and heart rate acceptable Temperature Satisfactory Pain Satisfactory N/V Control Satisfactory Hydration Satisfactory - No signs of dehydration Vitals Value Taken Time Temp 36 C (96.8 F) 03/29/2019 10:35 Pulse 52 03/29/2019 11:30 Resp 34 03/29/2019 11:04 BP 145/69 03/29/2019 11:15 Arterial Line BP Arterial Line BP 2 SpO2 94 % 03/29/2019 11:30 Vitals shown include unvalidated device data. Electronically signed by Michela Eli MD 03/29/2019 11:33 [facility] Michela Eli MD at 2018 11:34 AM PDTAnesthesia Procedure Notes - Michela Eli MD - 03/29/2019 7:52 AM PDTAssociated Order(s): NeuraxialNeuraxial Procedure Note 03/29/2019 7:35 Procedure: single-shot spinal anesthesia Indication: surgical anesthesia Preprocedure check: patient identified, procedure and rescue equipment checked, preevaluati on including airway assessment complete, risks/benefits discussed, consent obtained, timeout performed, reassessment prior to procedure and monitors applied Patient position: sitting Preparation: chlorhexidine/isopropyl alcohol, Introducer used: yes Procedure level: L3-4 Approach: midline Needle: pencil-point Needle size: 25 g Medication administered through: needle and incremental injection Negative findings: no paresthesia and no blood aspirated Positive findings: CSF aspirated Test dose response: negative and positive for intrathecal administration Attempts: 1 Ease of procedure: easy Medications Administered Bupivacaine 0.75%-dextrose 8.25% (MARCAINE SPINAL), 12 mg Date/Time: 03/29/2019 7:35 Please see anesthesia record or flowsheet for vital sign documentation and see anesthesia r ecord or MAR for additional medication documentation. nesthesia Prepro cedure Evaluation - Michela Eli MD - 03/29/2019 7:26 AM PDT ANESTHESIA PREANESTHESIA EVALUATION Scarlet Murguia 83 y.o. female 1935 [id number] Procedure(s): Posterior Total Hip Arthroplasty (Left Hip) Medical,anesthesia, drug, allergy histories reviewed, NPO status verified. (-) perioperative beta-evelin/statin not given/taken Reasons Beta Evelin not given/taken :not applicable/Not taking Beta-Evelin. . Review of Systems / Med History Anesthesia History No anesthesia complications except where noted below. Family Anesthesia History Family Anesthesia Negative except where noted below. Cardiovascular , Exercise tolerance >4 METS(+) hypertension, (+) valvular problems/murmurs . . Pulmonary Negative except where noted below. (+) pneumonia. Gastrointestinal/Hepatic (+) hypercholesterolemia. Renal Negative except where noted below. Endocrine (+) hypothyroidism. (+) Diabetes: Hematology/Other Negative except where noted below. Cancer Negative except where noted below. Obstetrics Negative except where noted below. Pediatric History Negative except where noted below. Neuromuscular Negative except where noted below. Psychology Negative except where noted below. Additional Comments: DDD (degenerative disc disease), lumbar Spondylolisthesis at L4-L5 level Bilateral lumbar radiculopathy Peripheral polyneuropathy Hyper reflexia Abnormal gait Choledocholithiasis Aortic stenosis HTN (hypertension) GERD (gastroesophageal reflux disease) Hyperlipidemia Type 2 diabetes mellitus (HCC) Hypothyroidism Peripheral neuropathy Left hip pain Post-traumatic osteoarthritis of left hip Physical Exam Airway MP II, TM >3 FB, Neck: full ROM, Jaw protrusion normal. Dental Grossly normal except wh ere noted below.; CV cardiovascular normal Rhythm regular. Rate normal. Pulm Clear to auscultation bilaterally. Neuro Grossly normal. Anesthesia Plan ASA 3 Type: Spinal. Induction: Intravenous. Potential problems: None anticipated. Monitors: Standard ASA monitors. Consent statement:Anesthetic plan, alternatives, risks and benefits discussed with patient. backache, , heart problems, perioperative CV events, respiratory eventspost dural punc ture headache, high spinal. Consenting person understands and agrees to proceed . Electronically Signed by: Michela Eli MD ESig date/time: 03/29/2019 7:26 documented in thi s encounter Miscellaneous Notes Anesthesia Post-op Handoff - Michela Eli MD - 03/29/2019 9:22 AM PDT ANESTHESIA HANDOFF NOTE Scarlet Germain Murguia 83 y.o. female 1935 [id number] Posterior Total Hip Arthroplasty (Left Hip) REMOVE HARDWARE LOWER EXTREMITY-HIP (Left Hip) HANDOFF NOTE Handoff Protocol Used: post-procedure handoff checklist completed The following were completed during the transfer of care: 1. Identification of patient 2. Identification of responsible practitioner (primary service) 3. Discussion of pertinent medical history 4. Discussion of the surgical/procedure course (procedure, reason for surgery, procedure pe rformed) 5. Intraoperative anesthetic management and issues/concerns 6. Expectations/plans for the early post-procedure period 7. Opportunity for questions and acknowledgement of understanding of report from receiving team Patient Location: Phase I Condition: responds to stimuli and sedated Airway/O2: nasal cannula with O2 The significant anesthesia concerns and VS in Epic were reviewed with the receiving team. Michela Eli MD 03/29/2019 9:22 [facility] Michela Eli MD at 2018 9:22 AM PDTdocumented in this encounter Plan of Treatment +--------+ + + + + | Date | Type | Specialty | Care Team | Description | +--------+ + + + + | 02/21/ | Appointment | Pain Medicine | Sam Samuels DO | | | 2019 | | | [address] | | | | | | [facility] [place] [address] | | | | | | [phone] | | | | | | | | +--------+ + + + + | 05/17/ | Office | Cardiology | Jeniffer Haines | | | 2019 | Visit | | [address] | | | | | | [place] | | | | | | [place] [address] | | | | | | [phone] | | | | | | | [...] this | | | e | 7:52 AM | | procedure are in the | | | | PDT | | results section. | + +--------+ + + + documented in this encounter Results Neuraxial (03/29/2019 7:52 AM PDT) + + + | Narrative | Performed At | + + + | Michela Eli MD 03/29/2019 8:01 Neuraxial Procedure | | | Note 03/29/2019 7:35 Procedure: single-shot spinal anesthesia | | | Indication: surgical anesthesia Preprocedure check: patient | | | identified, procedure and rescue equipment checked, preevaluation | | | including airway assessment complete, risks/benefits discussed, | | | consent obtained, timeout performed, reassessment prior to procedure | | | and monitors applied Patient position: sitting Preparation: | | | chlorhexidine/isopropyl alcohol, Introducer used: yes Procedure | | | level: L3-4 Approach: midline Needle: pencil-point Needle size: 25 | | | g Medication administered through: needle and incremental injection | | | Negative findings: no paresthesia and no blood aspirated Positive | | | findings: CSF aspirated Test dose response: negative and positive for | | | intrathecal administration Attempts: 1 Ease of procedure: easy | | | Medications Administered Bupivacaine 0.75%-dextrose 8.25% | | | (MARCAINE SPINAL), 12 mg Date/Time: 03/29/2019 7:35 Please see | | | anesthesia record or flowsheet for vital sign documentation and see | | | anesthesia record or MAR for additional medication documentation. | | + + + + + | Procedure Note | + + | Michela Eli MD - 03/29/2019 7:52 AM PDT Neuraxial Procedure Note03/29/2019 | | 7:35Procedure: [...] for additional medication documentation. | + + documented in this encounter Visit Diagnoses Not on filedocumented in this encounter Administered Medications + +---------+ +------+------+------+ | Medication Order | MAR | Action | Dose | Rate | Site | | | Action | Date | | | | + +---------+ +------+------+------+ | balanced electrolytes in water | New Bag | 03/29/20 | | | | | (PLASMALYTE-148/NORMOSOL-R) | | 19 7:30 | | | | | infusion at 50 mL/hr, | | AM PDT | | | | | Intravenous, CONTINUOUS, Starting | | | | | | | 03/29/19 at 0715, | | | | | | | Recovery/Phase I | | | | | | + +---------+ +------+------+------+ +---+---+ | | | +---+---+ + +-------+ +-------+---+---+ | bupivacaine 0.75%-dextrose | Given | 03/29/20 | 12 mg | | | | 8.25% (MARCAINE SPINAL) injection | | 19 7:35 | | | | | INTRASPINAL, Starting Tue | | AM PDT | | | | | 03/29/19 at 0735, Anesthesia | | | | | | | Intra-op | | | | | | + +-------+ +-------+---+---+ +---+---+ | | | +---+---+ + +-------+ +-----+---+---+ | ceFAZolin in dextrose (ANCEF) | Given | 03/29/20 | 2 g | | | | IVPB 2 g 2 g, Intravenous, | | 19 7:42 | | | | | Administer over 30 Minutes, Prior | | AM PDT | | | | | to Incision, Starting Tue | | | | | | | 03/29/19 at 0712, For 1 dose, | | | | | | | Keep in refrigerator., Pre-op, | | | | | | | Indications: Surgical Prophylaxis | | | | | | + +-------+ +-----+---+---+ +---+---+ | | | +---+---+ + +-------+ +-------+---+---+ | ePHEDrine in saline 5 mg/mL IV | Given | 03/29/20 | 10 mg | | | | syringe Intravenous, PRN, | | 19 8:30 | | | | | Starting 03/29/19 at 0806, | | AM PDT | | | | | Anesthesia Intra-op | | | | | | + +-------+ +-------+---+---+ +-------+ +------+---+---+ | Given | 03/29/20 | 5 mg | | | | | 19 8:22 | | | | | | AM PDT | | | | +-------+ +------+---+---+ | Given | 03/29/20 | 5 mg | | | | | 19 8:13 | | | | | | AM PDT | | | | +-------+ +------+---+---+ +---+---+ | | | +---+---+ + +-------+ +------+---+---+ | ondansetron (ZOFRAN) injection | Given | 03/29/20 | 4 mg | | | | Intravenous, PRN, Starting Tue | | 19 7:54 | | | | | 03/29/19 at 0754, Anesthesia | | AM PDT | | | | | Intra-op | | | | | | + +-------+ +------+---+---+ +---+---+ | | | +---+---+ + +-------+ +-------+---+---+ | propofol (DIPRIVAN) injection | Given | 03/29/20 | 20 mg | | | | Intravenous, PRN, Starting Tue | | 19 7:42 | | | | | 03/29/19 at 0742, Anesthesia | | AM PDT | | | | | Intra-op | | | | | | + +-------+ +-------+---+---+ +---+---+ | | | +---+---+ + +---------+ + +-------+---+ | propofol infusion (DIPRIVAN) 10 | New Bag | 03/29/20 | 60 | 26.8 | | | mg/mL infusion Intravenous, | | 19 7:43 | mcg/kg/m | mL/hr | | | CONTINUOUS PRN, Starting Tue | | AM PDT | in | | | | 03/29/19 at 0743, Anesthesia | | | | | | | Intra-op | | | | | | + +---------+ + +-------+---+ +---+---+ | | | +---+---+ + +---------+ + +---+---+ | tranexamic acid (CYKLOKAPRON) | New Bag | 03/29/20 | 1,000 mg | | | | 1,000 mg in sodium chloride 0.9% | | 19 8:03 | | | | | 50 mL IVPB 1,000 mg, | | AM PDT | | | | | Intravenous, at 360 mL/hr, ONCE, | | | | | | | 03/29/19 at 0630, For 1 dose, | | | | | | | Pre-op | | | | | | + +---------+ + +---+---+ +---+---+ | | | +---+---+ + +---------+ + +---+---+ | tranexamic acid (CYKLOKAPRON) | New Bag | 03/29/20 | 1,000 mg | | | | 1,000 mg in sodium chloride 0.9% | | 19 8:41 | | | | | 50 mL IVPB 1,000 mg, | | AM PDT | | | | | Intravenous, at 360 mL/hr, ONCE, | | | | | | | [place] 03/29/19 at 0630, For 1 dose, | | | | | | | Pre-op | | | | | | + +---------+ + +---+---+ +---+---+ | | | +---+---+ documented in this encounter"
--- OUTSIDE RECORDS SUMMARY | ~2020-02-17 | XMS | Encounter Summary ---
Demographics + + + | Address | [address] | | | [place] [address] | + + + | Home Phone | | + + + | Preferred Language | Unknown | + + + | Marital Status | | + + + | Synagogue Affiliation | 1077 | + + + | Race | White | + + + | Ethnic Group | Not or | + + + Author + + + | Author | [facility] | | | and [place] | + + + | Organization | [facility] | | [...] Team Providers + +------+ + | Care Tinning Machine Set Up Operator Name | Role | Phone | [...] Specialty | Physical | Diagnoses | | | | | Services | Therapy | | Bogdanoeitancz, | | | | Required | | Spondylolist | [place], | | | | | | tieshais at | PA-C [address] | | | | | | [address] level | [address], | | | | | | [address] | [address] | | | | | | (degenerativ | [place], [place] | | | | | | e disc | [address] | | | | | | disease), | Phone: | | | | | | lumbar | [phone] | | | | | | Bilateral | Fax: | | | | | | lumbar | [phone] | | | | | | radiculopath | | | | | | | y | | | | | | | Procedures | | | | | | | Faxed 02/19/16 | | | +--------+ + + + + + Reason for Visit +---------+--------+ + | Reason | Onset | Comments | | | Date | | +---------+--------+ + | Results | 02/12/ | | | | 2015 | | +---------+--------+ + Encounter Details +--------+ + + + + | Date | Type | Department | Care Team | Description | +--------+ + + + + | 02/12/ | Telephone | [facility] [place] | Ray, | Results | | 2016 | | PHYSIATRY [address] | KYA Simon [address] | | | | | [address] | [address] | | | | | [place], [place] | [place] [address] | | | | | [address] | [phone] | | | | | [phone] | | | +--------+ + + + [...] this encounter Miscellaneous Notes Telephone Encounter - [place] Bell PA-C - 02/14/2016 9:24 AM PDTsignedElectronical ly signed by [place] Bell PA-C at 02/14/2016 9:24 AM PDTTelephone Encounter - Viki Martines CMA - 02/14/2016 9:02 AM PDTInformation relayed. Patient voiced understanding and w grant like a referral to [facility]. Injection scheduled for 03/06/16. Please update and sign orders attached. e lephone Encounter - [place] Bell PA-C - 02/14/2016 8:41 AM PDTPatients MRI shows ce ntral spinal stenosis of L2/L3- moderate, L3/L4 and L4/L5 severe. We can try a steroid epid ural injection and physical therapy. Because she has severe spinal stenosis at two levels, I probably would order a bilateral L4 /L5 and L5/S1 TFESI. elephone Encounter - Viki Martines CMA - 02/14/2016 8:21 AM PDTImages on isite. Please advise. elephone Encoun Kelle Santizo - 02/13/2016 1:18 PM PDTPatient called to inform Aurora that Lumbar MR I has been completed at [facility]. Images and report have been requested. documented in this encounter Plan of Treatment +--------+ + + + + | Date | Type | Specialty | Care Team | Description | +--------+ + + + + | 02/21/ | Appointment | Pain Medicine | Sam Samuels, DO | | | 2019 | | | [address] [facility] | | | | | | [place] [address] | | | | | | [phone] | | | | | | | | +--------+ + + + + | 05/17/ | Office | Cardiology | Jeniffer Haines | | | 2019 | Visit | | [address] | | | | | | [place] | | | | | | [place] [address] | | | | | | [phone] | | | | | | | | +--------+ + + + + + +---------+--------+ + + | Name | Type | Priori | Associated Diagnoses | Order Schedule | | | | ty | | | + +---------+--------+ + + | FL BONIFACIO Lumbar | Imaging | Routin | Lumbar | Expected: | | Transforaminal | | e | radiculopathy | 02/14/2016, Expires: | | | | | | 02/13/2017 | + +---------+--------+ + + + + +--------+ + + | Name | Type | Priori | Associated Diagnoses | Order Schedule | | | | ty | | | + + +--------+ + + | AMB REFERRAL TO [facility] | Outpatient | Routin | Spondylolisthesis | Ordered: 02/14/2016 | | PHYSICAL THERAPY | Referral | e | at L4-L5 level DDD | | | | | | (degenerative disc | | | | | | disease), lumbar | | | | | | Bilateral lumbar | | | | | | radiculopathy | | + + +--------+ + + documented as of this encounter Visit Diagnoses + + | Diagnosis | + + | Spondylolisthesis at L4-L5 level - Primary | + + | DDD (degenerative disc disease), lumbar Degeneration of lumbar or lumbosacral | | intervertebral disc | + + | Bilateral lumbar radiculopathy | + + | Lumbar radiculopathy Thoracic or lumbosacral neuritis or radiculitis, unspecified | + + documented in this encounter"
--- OUTSIDE RECORDS SUMMARY | ~2020-02-17 | XMS | Encounter Summary ---
Demographics + + + | Address | [address] | | | [place] [address] | + + + | Home Phone | | + + + | Preferred Language | Unknown | + + + | Marital Status | | + + + | Scientology Affiliation | 1077 | + + + [...] Team Providers + +------+ + | Care Donor Specialist Name | Role | Phone | [...] pain | | 2019 | Encounter | [facility] | M, MD [address] | | | | | [address] | [address] | | | | | [place], [place] | [place] [address] | | | | | [address] | [phone] | | | | | [phone] | | | +--------+ + + + [...] | | | | 0 | | ([facility]) | | | | | | | MISC | | | | | | + + + +---------+ + + | [place]-3 Fatty | Take 1 tablet by | [...] | | 2019 | | | [address] [facility] | | | | | | [place] [address] | | | | | | [phone] | | | | | | | | +--------+ + + + + | 05/17/ | Office | Cardiology | Jeniffer Haines | | | 2020 | Visit | | [address] | | | | | | [address] | | | | | | [place] [address] | | | | | | [phone] | | | | | | | [...]
--- OUTSIDE RECORDS SUMMARY | ~2020-02-17 | XMS | Encounter Summary ---
Demographics + + + | Address | [address] | | | [place] [address] | + + + | Home Phone | | + + + | Preferred Language | Unknown | + + + | Marital Status | | + + + | Advent Affiliation | 1077 | + + + | Race | White | + + + | Ethnic Group | Not or | + + + Author + + + | Author | [facility] | | | and [place] | + + + | Organization | [facility] | | | [...] Providers + +------+ + | Care Manager Mechanical Maintenance Name | Role | Phone | + [...] A | | | | | BLVD [place], [place] | [place] [address] | | | | | [address] | [phone] | | | | | [phone] | | | +--------+ + + + [...] were given in the hospital. Wear them [id number] d ay for3 to 4weeks. To relieve discomfort at night, get up and move around. Tell all your healthcare providers including your dentist about your artificial join t before any procedure. You mayneed to take antibiotics before dental work and other medic al procedures to reduce the risk of infection. Arrangeto have your lobito removed [id number] after surgery. The lobito were u sed [...] ur hip joint. Use a raisedtoilet seat ufk1ptmth after surgery. Ask your healthcare provider if [...] put on socks and shoes. And don't worm picker items from the floor. Use a [...] draining from the incision Date Last Reviewed: 10/13/201719994583-3073 [employer]. [address] [place] [address]. All righ ts reserved. This information is not intended as a substitute for professional medical care. Always follow your healthcare professional's instructions. Outpatient Medications Marked as Taking for the 03/21/19 encounter (Preadmit Visit) with [facility] ROOM 2 Medication Sig Instructions acetaminophen [...] of proced ure Multiple Vitamins-Minerals ([facility]) MISC Take by mouth. DO NOT TAKE day of procedure Warner-3 Fatty Acids (PRO NUTRIENTS OMEGA 3 PO) [...] Pt states she saw Dr Paz in [place] for cardiac clearance in February and was [...] in this e ncounter Plan of Treatment +--------+ + + + + | Date | Type | Specialty | Care Team | Description | +--------+ + + + + | 02/21/ | Appointment | Pain Medicine | Sam Samuels DO | | 2019 | | | [address] | | | | | | [place] [address] | | | | | | [phone] | | | | | | | | +--------+ + + + + | 05/17/ | Office | Cardiology | Jeniffer Haines | | 2019 | Visit | | [address] | | | | | | [address] | | | | | | [place] [address] | | | | | | [phone] | | | | | | | [...] Antibody | Testing performed at | | [facility] | | | Screen | [facility] | | LABORATORY | | | | [place] [address] | | | | + + + + + + + + | Specimen | + + | Blood | + + + + + + + | Performing | Address | City/State/Zipcode | Phone Number | | Organization | | | | + + + + + | [facility] | [address] | [place] [address] | [phone] | + + + + + MRSA [...] [facility] | | | | performed at [facility] | | LABORATORY | | | | [address];[place] | | | | | | [address] | | | | + + + + + + + + | Specimen | + + | Tissue - Both | | anterior nares (body | | structure) | + + + + + + + | Performing | Address | City/State/Zipcode | Phone Number | | Organization | | | | + + + + + | [facility] | [address] | [place] [address] | [phone] | + + + + + Hemoglobin A1C (03/21/2019 3:33 PM PDT) + + + + + + | Component | Value | Ref Range | Performed | Pathologist | | | | | At | Signature | + + + + + + | Hemoglobin | 5.8Comment: HbA1c method | 4.0 - 6.0 % | [facility] | | | A1c | [...] | 120Comment: Estimated | <154 mg/dL | [facility] | | | Average | Average Glucose | | LABORATORY | | | Glucose | calculated from | | | | | | hemoglobin A1c by use of | | | | | | the ADArecommended | | | | | | formula.Testing | | | | | | performed at [facility], [address] | | | | | | [facility], | | | | | | [place] [address] | | | | + + + + + + + + | Specimen | + + | Blood | + + + + + + + | Performing | Address | City/State/Zipcode | Phone Number | | Organization | | | | + + + + + | [facility] | [address] | [place] [address] | [phone] | + + + + + CBC [...] | | | | | performed at [facility] | | | | | | [address] | | | | | | [address] | | | | + + + + + + + + | Specimen | + + | Blood | + + + + + + + | Performing | Address | City/State/Zipcode | Phone Number | | Organization | | | | + + + + + | [facility] | [address] | [place] [address] | [phone] | + + + + + Basic [...] | | | | | performed at [facility] | | | | | | [facility];[place], [place] | | | | | | [address] | | | | + + + + + + + + | Specimen | + + | Blood | + + + + + + + | Performing | Address | City/State/Zipcode | Phone Number | | Organization | | | | + + + + + | [facility] | [address] [facility] | [place] [address] | [phone] | + + + + + ECG [...]
--- OUTSIDE RECORDS SUMMARY | ~2020-02-17 | XMS | Encounter Summary ---
Demographics + + + | Address | [address] | | | [place] [address] | + + + | Home Phone | | + + + | Preferred Language | Unknown | + + + | Marital Status | | + + + | Restorationism Affiliation | 1077 | + + + [...] Team Providers + +------+ + | Care Generation Technician Name | Role | Phone | + +------+ + PCP | Unavailable | + +------+ + Encounter Details +--------+ + + + + | Date | Type | Department | Care Team | Description | +--------+ + + + + | 03/03/ | Hospital | [facility] GENER[facility] OP | | Other Screening | | 2007 | Encounter | CON[address] | | Mammogram | | | | [address] | | | | | | [place] | | | | | | [address] | | | | | | [phone] | | | +--------+ + + + [...] [address] | | | | | | [place] [address] | | | | | | [phone] | | | | | | | | +--------+ + + + + | 05/17/ | Office | Cardiology | Jeniffer Haines | | | 2019 | Visit | | [address] | | | | | | [address] | | | | | | [place] [address] | | | | | | [phone] | | | | | | | | +--------+ + + + + documented as of this encounter Visit Diagnoses + + | Diagnosis | + + | Other screening mammogram | + + documented in this encounter"
--- OUTSIDE RECORDS SUMMARY | ~2020-02-17 | XMS | Encounter Summary ---
Demographics + + + | Address | [address] | | | [place] [address] | + + + | Home Phone | | + + + | Preferred Language | Unknown | + + + | Marital Status | | + + + | Buddhism Affiliation | 1077 | + + + | Race | White | + + + | Ethnic Group | Not or | + + + Author + + + | Author | [facility] | | | and [place] | + + + | Organization | [facility] | | | [...] Team Providers + +------+ + | Care Custodian Name | Role | Phone | + [...] | y, lumbar | ST | [address] [place], | | | | | region TFE | [place], [place] | [place] [address] | | | | | BiLat L3 ( | [address] | Phone: | | | | | 10-12 ) | Phone: | [phone] | | | | | Procedures | [phone] | Fax: | | | | | PA INJECT | Fax: | [phone] | | | | | ANES/STEROID | [phone] | | | | | | FORAMEN | | | | | | | LUMBAR/SACRA | | | | | | | L W IMG | | | | | | | GUIDE ,1 | | | | | | | LEVEL PA | | | | | | | [...] + + | 12/21/ | Hospital | [facility] | Sam Samuels | 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 If you are unable to contact your doctor or their associate, you may come to the Emergency Department at [facility]. These instructions have been explained to [...] | | 0 | | | | YI-Nuyiuagfph-Bjrywf | mouth Daily. | | | | [...] 12/22/2019 9:37 AM PDTOPERATIVE REPORT NAME: Scarlet uMrguia MR#: [id number] : 1935 DATE: 12/22/2019 SURGEON Sam Samuels [...] nolone and 4.5 ml of 0.25% Naropin. Export were removed intact, skin was cleansed, and [...] | | | | | | [place] [address] | | | | | | [phone] | | | | | | | | +--------+ + + + + | 05/17/ | Office | Cardiology | Jeniffer Haines | | | 2019 | Visit | | [address] | | | | | | [address] | | | | | | [place] [address] | | | | | | [phone] | | | | | | | [...] | | | | ONCE PRN, Starting [facility] 12/22/19 at | | AM PDT | | | | | 0959 | | | | | | + +-------+ +-------+---+---+ +---+---+ | | | +---+---+ + +-------+ +-------+---+ + | triamcinolone acetonide | Given | 12/22/19 | 60 mg | | Other | | (KENALOG-40) 40 mg/mL injection | | 20 10:01 | | | (Comment | | ONCE PRN, Starting [facility] 12/22/19 at | | AM PDT | | | ) | | 1001, Intra-op | | | | | | + +-------+ +-------+---+ + +---+---+ | | | +---+---+ documented in this encounter"
--- OUTSIDE RECORDS SUMMARY | ~2020-02-17 | XMS | Encounter Summary ---
Demographics + + + | Address | [address] | | | [place] [address] | + + + | Home Phone | | + + + | Preferred Language | Unknown | + + + | Marital Status | | + + + | Church Affiliation | 1077 | + + + [...] Team Providers + +------+ + | Care Exam Proctor Name | Role | Phone | + [...] | | | collapse | [address] | [place] | | | | | Procedures | [address] | [address] | | | | | EVENT | [address] | DR | | | | | MONITOR [address] | [place], [place] | [place], [place] | | | | | WEEK 4 week | [address] | [address] | | | | | | Phone: | Phone: | | | | | | [phone] | [phone] | | | | | | Fax: | Fax: | | | | | | [phone] | [phone] | +--------+--------+ + + + + Encounter Details +--------+ + + + + | Date | Type | Department | Care Team | Description | +--------+ + + + + | 07/07/ | Procedure | [facility] | Smitha Griffin DO | Syncope, unspecified | | 2019 | visit | CARDIOLOGY [place] | [address] | syncope type | | | | [address] | [place] [place], [place] | | | | | [address] | [address] | | | | | [place], [place] | | | | | | [address] | | | | | | [phone] | | | +--------+ + + + [...] of this encounter Progress Notes Lina Recinos, Operational Review Sergeant - 07/07/2019 3:30 PM PST4 week cardiac event monitor placed on patient. EOB/Billing information discussed. Instructions given and understood. P atient instructed to [facility] for any billing or monitor questions. JJEZ:BOILER ROOM HELPER-AAMA. doc umented in this encounter Plan of Treatment +--------+ + + + + | Date | Type | Specialty | Care Team | Description | +--------+ + + + + | 02/21/ | Appointment | Pain Medicine | Sam Samuels DO | | | 2019 | | | [address] | | | | | | [place] [address] | | | | | | [phone] | | | | | | | | +--------+ + + + + | 05/17/ | Office | Cardiology | Jeniffer Haines | | | 2019 | Visit | | [address] | | | | | | [address] | | | | | | [place] [address] | | | | | | [phone] | | | | | | | | +--------+ + + + + documented as of this encounter Visit Diagnoses + + | Diagnosis | + + | Syncope, unspecified syncope type | + + documented in this encounter"
--- OUTSIDE RECORDS SUMMARY | ~2020-02-17 | XMS | Encounter Summary ---
Demographics + + + | Address | [address] | | | [place] [address] | + + + | Home Phone | | + + + | Preferred Language | Unknown | + + + | Marital Status | | + + + | Restorationist Affiliation | 1077 | + + + [...] Team Providers + +------+ + | Care Hydroelectric Plant Electrical Engineer Name | Role | Phone | [...] | | | | | | | AL ERCP DX | | | | | | | COLLECTION | | | | | | | SPECIMEN | | | | | | | BRUSHING/WAS | | | | | | | [place] AL | | | | | | | ANESTH,UGI | | | | | | | ENDOSCOPY | | | | | | | ERCP | | | +--------+--------+ + + + + Encounter Details +--------+ + + + + | Date | Type | Department | Care Team | Description | +--------+ + + + + | 10/14/ | Hospital | [facility] | Gregor Mccord MD | | | 2017 | Encounter | MED CTR XRAY [address] | [address], [place] | | | | | [address] | [address] [place], [place] | | | | | [place] [address] | [address] | | | | | [phone] | | | +--------+ + + + [...] | | | | 0 | | ([facility]) | | | | | | | MISC | | | | | | + + + +---------+ + + | Tacoma-3 Fatty | Take 1 tablet by | [...] | | | | | [place] [address] | | | | | | [phone] | | | | | | | | +--------+ + + + + | 05/17/ | Office | Cardiology | Jeniffer Haines | | | 2019 | Visit | | [address] | | | | | | [address] | | | | | | [facility] [place] [place] [address] | | | | | | [phone] | | | | | | | [...]
--- OUTSIDE RECORDS SUMMARY | ~2020-02-17 | XMS | Encounter Summary ---
Demographics + + + | Address | [address] | | | [place] [address] | + + + | Home Phone | | + + + | Preferred Language | Unknown | + + + | Marital Status | | + + + | Islam Affiliation | Unknown | + + + | Race | White | + + + | Ethnic Group | Not or | + + + Author + + + | Author | [facility] | + + + | Organization | [facility] | + + + | Address | Unknown | + + + | Phone | Unavailable | + + + Support + + + + + | Name | Relationship | Address | Phone | + + + + + | Chrissie Loes | DIRK | [place] | | + + + + + Care Team Providers + +------+ + | Care Union Organiser Name | Role | Phone | + +------+ + PCP | Unavailable | + +------+ + Encounter Details +--------+ + + + + | Date | Type | Department | Care Team | Description | +--------+ + + + + | 03/20/ | Transcribed | Allergy Clinic at | Dictation, Other | Transcribed | | 1996 | | [facility] [address] | | | | | | [facility] | | | | | | [address] [place] | | | | | | [facility], [address] [place] [address] | | | | | | [place], [place] | | | | | | [address] | | | | | | [phone] | | | +--------+ + + + [...] as of this encounter Progress Notes Interface, Faculty Head In - 07/30/2006 1:[address] [facility] and [address] [address] or March 20, 1997 AKIRA LEOS MD [facility] [address] [place] [address] RE:Scarlet Murguia MR#:[id number] Leos: We saw Mrs. Scarlet Murguia for a rheumatology consultation at [facility] on March 20, 1997. The patient [...] se, as manifested by pain at rest, early head start teacher stiffness for greater than an hour or [...] Thank you for your referral to the [facility]. Sincerely, Damaso Franks M.D. Resident, Internal Medicine TERRY/artemio cc: Samia Montano M.D. Radiology Practitioner Assistant, Medicine Rheumatology and Arthritis documented in this encounter Plan of Treatment Not on filedocumented as of this encounter Visit Diagnoses Not on filedocumented in this encounter
--- OUTSIDE RECORDS SUMMARY | ~2020-02-17 | XMS | Encounter Summary ---
Demographics + + + | Address | [address] | | | [place] [address] | + + + | Home Phone | | + + + | Preferred Language | Unknown | + + + | Marital Status | | + + + | Samaritan Affiliation | 1077 | + + + | Race | White | + + + | Ethnic Group | Not or | + + + Author + + + | Author | [facility] | | | and [place] | + + + | Organization | [facility] | | | [...] Providers + +------+ + | Care Stock Pitcher Name | Role | Phone | + [...] + + | 04/07/ | Office | [facility] | Malcom Mojica, | Hyper reflexia | | 2016 | Visit | PHYSIATRY [address] | [address] | (Primary Dx) | | | | [address], | | | | | [place] | [place] [address] | | | | | [address] | [phone] | | | | | [phone] | | | +--------+---------+ + + + [...] Medicine Consult Note Malcom Mojica MD [address] [facility], [address] [place] [address] FAX: CHIEF COMPLAINT: Chief Complaint Patient presents [...] Surgical History Procedure Laterality Date Tonsillectomy 1937 Tailbone 1972 broken, partial removal Cystocele repair 1971 Colonoscopy [...] 1 tablet by mouth Daily. Multiple Vitamins-Minerals ([facility]) MISC Take by mouth. [place]-3 Fatty Acids (PRO NUTRIENTS OMEGA 3 PO) [...] ankles Coordination: There is no dysmetria on jsbqhp-np-jgip and binj-rqpj-ulus. There Romberg is mildly positiv e with [...] not think that any further work-up would price changer at this time. Her primary symptoms is [...] in thi s encounter Plan of Treatment +--------+ + + + + | Date | Type | Specialty | Care Team | Description | +--------+ + + + + | 02/21/ | Appointment | Pain Medicine | Sam Samuels DO | | | 2019 | | | [address] | | | | | | [place] [address] | | | | | | [phone] | | | | | | | | +--------+ + + + + | 05/17/ | Office | Cardiology | Jeniffer Haines | | | 2019 | Visit | | [address] | | | | | | [address] | | | | | | [place] [address] | | | | | | [phone] | | | | | | | | +--------+ + + + + documented as of this encounter Visit Diagnoses + + | Diagnosis | + + | Hyper reflexia - Primary Abnormal reflex | + + documented in this encounter
--- OUTSIDE RECORDS SUMMARY | ~2020-02-17 | XMS | Encounter Summary ---
Demographics + + + | Address | [address] | | | [place] [address] | + + + | Home Phone [...] Providers + +------+ + | Care Line Construction Supervisor Name | Role | Phone | [...] + + | 11/20/ | Telephone | [facility] | Sam Samuels, DO | Other (covid | | 2019 | | [facility] | [address] | screening) | | | | MEDIC[facility] [place] | [place] [address] | | | | | [address] | [phone] | | | | | [place], [place] | | | | | | [address] | | | | | | [phone] | | | +--------+ + + + [...] Notes Telephone Encounter - Maria Elena Schmid, Waxer Floor - 11/21/2019 12:30 PM PDT Proactive screening [...] [address] | | | | | | [place] [address] | | | | | | [phone] | | | | | | | | +--------+ + + + + | 05/17/ | Office | Cardiology | Jeniffer Haines | | 2019 | Visit | | [address] | | | | | | [address] | | | | | | [place] [address] | | | | | | [phone] | | | | | | | | +--------+ + + + + documented as of this encounter Visit Diagnoses Not on filedocumented in this encounter"
--- OUTSIDE RECORDS SUMMARY | ~2020-02-17 | XMS | Encounter Summary ---
Demographics + + + | Address | [address] | | | [place] [address] | + + + | Home Phone | | + + + | Preferred Language | Unknown | + + + | Marital Status | | + + + | Restoration Affiliation | 1077 | + + + [...] Team Providers + +------+ + | Care Pastry Cook Apprentice Name | Role | Phone | + +------+ + | Susan Leos | PCP | | | PA-C | | | + +------+ + Reason for Visit + +--------+ + | Reason | Onset | Comments | | | Date | | + +--------+ + | Appointment | 09/29/ | biliary stent pull | | | 2016 | | + +--------+ + Encounter Details +--------+ + + + + | Date | Type | Department | Care Team | Description | +--------+ + + + + | 09/29/ | Telephone | [facility] | Gregor Mccord MD | Appointment (biliary | | 2017 | | GASTROENTEROLOGY | [address], [place] | stent pull) | | | | [address] [place] | [address] [place] | | | | | [address] [place] [address] | [address] | | | | | [address] | | | | | | [phone] | | | +--------+ + + + [...] Telephone Encounter - Sonali Garcia RN - 10/02/2016 9:53 AM PDTSpoke with patient and she reports the back pain has resolved. Stent pull is scheduled for October 14 check in 113 0. Reviewed instructions. 9: 57 AM PDTTelephone Encounter - Sonali Garcia RN - 09/29/2016 9:05 AM PDTPatient had ERCP with stent placement Thursday. Patient calls saying she has been having mid back pain s dimitrios last night. She had some mild back and nausea when she returned home Thursday afternoon . When she left Thursday afternoon she had no nausea and no back pain. During our conversatio n she reports her back pain resolved. Patient was difficult to follow. Tentatively schedule stent pull for ThursdayOctober 14. Case ordered. documented in this encounter Plan of Treatment +--------+ + + + + | Date | Type | Specialty | Care Team | Description | +--------+ + + + + | 02/21/ | Appointment | Pain Medicine | Sam Samuels DO | | | 2019 | | | [address] [facility] | | | | | | [place] [address] | | | | | | [phone] | | | | | | | | +--------+ + + + + | 05/17/ | Office | Cardiology | Jeniffer Haines | | | 2020 | Visit | | [address] | | | | | | [address] | | | | | | [place] [address] | | | | | | [phone] | | | | | | | | +--------+ + + + + documented as of this encounter Visit Diagnoses + + | Diagnosis | + + | Choledocholithiasis - Primary Calculus of bile duct without mention of cholecystitis | | or obstruction | + + | Dilated bile duct Other specified disorders of biliary tract | + + documented in this encounter"
--- OUTSIDE RECORDS SUMMARY | ~2020-02-17 | XMS | Encounter Summary ---
Demographics + + + | Address | [address] | | | [place] [address] | + + + | Home Phone [...] + + + | Author | [facility] | | | and [place] | + + + | Organization | [facility] | | [...] Team Providers + +------+ + | Care Senior Supplier Quality Engineer Name | Role | Phone | [...] | Specialty | Physical | Diagnoses | Nan, | [facility] | | | Services | Therapy | Aftercare | Mark Foley MD | HOSPITAL | | | Required | | following | [address] | [address] | | | | | left hip | [address] | [address] | | | | | joint | [place], | [place], [place] | | | | | replacement | [place] [address] | [address] | | | | | surgery | Phone: | Phone: | | | | | | [phone] | [phone] | | | | | | Fax: | Fax: | | | | | | [phone] | [phone] | +--------+ + + + + + Reason for Visit + + + | Reason | Comments | + + + | Post-op Exam | left hip | + + + [...] | | | [facility] | John, | [place], [place] | | | | | Procedures | [place] | [address] Phone: | | | | | NEW PATIENT | [address] | [phone] | | | | | | Phone: | Fax: | | | | | | [phone] | [phone] | | | | | | Fax: | | | | | | | [phone] | | + +--------+ + + + + Encounter Details +--------+---------+ + + + | Date | Type | Department | Care Team | Description | +--------+---------+ + + + | 05/16/ | Office | [facility] | [place] | Aftercare following | | 2019 | Visit | AMY [address] | MD Alaina [address] | left hip joint | | | | BLVD [place], [place] | [address] | replacement surgery | | | | [address] | [place] [address] | (Primary Dx) | | | | [phone] | [phone] | | | | | | | [...] + + + | Blood Pressure | 128/66 | 05/16/2019 11:43 AM | | | | | PST | | + + + + + | Pulse | 74 | 05/16/2019 11:43 AM | | | | | PST | | + + + + + | Temperature | - | - | | + + + + + | Respiratory Rate | - | - | | + + + + + | Oxygen Saturation | 98% | 05/16/2019 11:43 AM | | | | | PST | | + + + + + | Inhaled Oxygen | - | - | | | Concentration | | | | + + + + + | Weight | 74.4 kg (164 lb) | 05/16/2019 11:43 AM | | | | | PST | | + + + + + | Height | 170.2 cm (5' 7") | 05/16/2019 11:43 AM | | | | | PST | | + + + + + | Body Mass Index | 25.69 | 05/16/2019 11:43 AM | | | | | PST | | + + + + + documented in this encounter Progress Notes Mark [place] MD - 05/16/2019 11:30 AM PST 05/16/2019 HPI An 83-year-old female who presents about 6 weeks after left posterior total hip arthroplast y. Unfortunately, the patient had some miscommunication and misunderstanding about her posto perative pain medications and cannot reliably tell me if she was taking her aspirin on a vernon ly basis. She does report that she probably was not taking that on a routine basis because s he did not realize that was her anticoagulant for blood clot prevention. The patient has als o had some difficulty with communications with our office, and there has been some misunders tanding in this regard. The patient reports that she did not receive my cell phone number as is standard with my discharge instructions, but she does not recall reading the discharge i nstructions with my cell phone number on it. Also, that has instructions regarding DVT proph ylaxis. Unfortunately, the patient was eventually diagnosed with pulmonary embolism and and has been treating with Xarelto. His medical issues are resolving. She currently does not hav e any complaints of pain in the hip. She is still using the walker, which she has been using for quite sometime. She reports having some issues with the falling recently, and she does not think it is due to pain or dysfunction or weakness. She feels it is mostly due to balanc e issues, but overall, she is not sure. She has not addressed this with her primary care doc tor yet. Vital Signs Vitals: 05/16/19 1143 BP: 128/66 Pulse: 74 PainSc: 0 - No pain PainLoc: Hip Physical Exam Ortho Exam Left Hip Exam Muscle Strength: Abduction: 4/5. Flexion: 4/5. Comments: Well healed incision. No pain with passive range of motion of the hip. Leg length s appear symmetric. Assessment and Plan ICD-10-CM ICD-9-CM 1. Aftercare following left hip joint replacement surgery Z47.1 V54.81 XR Hip Left 2-3 View s Z96.642 V43.64 PT referral - External Return in about 3 months (around 08/15/2019). Doing well after left posterior total hip arthroplasty, complicated by a postoperative pulm onary embolism due to noncompliance with DVT prophylaxis. She is currently on Xarelto and be ing followed by a primary care doctor for this. Fortunately, her medical issues have stabili zed and no longstanding issues have risen due to this including no bleeding complications. S he seems to be doing well from a hip standpoint. She can begin physical therapy, and a presc ription was given to her. I would like to see her back in 3 to 4 months for a repeat clinica l evaluation. No x-rays will be needed at that time unless she is having issues, but overall , she seems to be doing well. All of their questions were answered today. Documented by Rick. No notes on file documented in this encounter Plan of Treatment +--------+ + + + + | Date | Type | Specialty | Care Team | Description | +--------+ + + + + | 02/21/ | Appointment | Pain Medicine | Sam Samuels DO | | | 2019 | | | [address] | | | | | | [place] [address] | | | | | | [phone] | | | | | | | | +--------+ + + + + | 05/17/ | Office | Cardiology | Jeniffer Haines | | | 2019 | Visit | | [address] | | | | | | [address] | | | | | | [place] [address] | | | | | | [phone] | | | | | | | | +--------+ + + + + + + +--------+ + + | Name | Type | Priori | Associated Diagnoses | Order Schedule | | | | ty | | | + + +--------+ + + | PT referral - | Outpatient | Routin | Aftercare | Ordered: 05/16/2019 | | External | Referral | e | following left hip | | | | | | joint replacement | | | | | | surgery | | + + +--------+ + + documented as of this encounter Results XR Hip Left 2-3 Views (05/16/2019 11:36 AM PST) + + | Specimen | + + | | + + + + + | Narrative | Performed At | + + + | Radiographs of | [facility] | | the hip show a total hip arthroplasty with components in a good | | | position and acceptable length and offset with no evidence of | | | complications. Electronically signed by: Mark [place] MD | | | 05/17/2019 10:22 AM | | | | | + + + + +---------+ + + | Performing | Address | City/State/Zipcode | Phone Number | | Organization | | | | + +---------+ + + | [facility] | | | | + +---------+ + + documented in this encounter Visit Diagnoses + + | Diagnosis | + + | Aftercare following left hip joint replacement surgery - Primary | + + documented in this encounter
--- OUTSIDE RECORDS SUMMARY | ~2020-02-17 | XMS | Encounter Summary ---
Demographics + + + | Address | [address] | | | [place] [address] | + + + | Home Phone [...] Team Providers + +------+ + | Care Irrigation Supervisor Name | Role | Phone | [...] | 09/26/ | Hospital | [facility] | Gregor Mccord MD | | | 2017 | Encounter | MED CTR XRAY [address] | [address] | | | | | [place] | [address] | | | | | [place] [address] | [address] | | | | | [phone] | | | +--------+ + + + [...] | | | | 0 | | ([facility]) | | | | | | | MISC | | | | | | + + + +---------+ + + | [place]-3 Fatty | Take 1 tablet by | [...] [address] | | | | | | [place] [address] | | | | | | [phone] | | | | | | | | +--------+ + + + + | 05/17/ | Office | Cardiology | Jeniffer Haines | | | 2019 | Visit | | [address] | | | | | | [address] | | | | | | [place] [address] | | | | | | [phone] | | | | | | | [...]
--- OUTSIDE RECORDS SUMMARY | ~2020-02-17 | XMS | Encounter Summary ---
Demographics + + + | Address | [address] | | | [place] [address] | + + + | Home Phone [...] Team Providers + +------+ + | Care Operations Associate Name | Role | Phone | + +------+ + | Susan Leos | PCP | | | PA-C | | | + +------+ + Encounter Details +--------+ + + + + | Date | Type | Department | Care Team | Description | +--------+ + + + + | 12/02/ | Hospital | [facility] | Mark [place] | Aftercare following | | 2019 | Encounter | [address] XRAY [address] | MD [address] | left hip joint | | | | [address] | [address] | replacement surgery | | | | [place], [place] | [place] [address] | | | | | [address] | [phone] | | | | | [phone] | | | +--------+ + + + [...] | | | | 0 | | ([facility]) | | | | | | | MISC | | | | | | + + + +---------+ + + | [place]-3 Fatty | Take 1 tablet by | [...] [address] | | | | | | [place] [address] | | | | | | [phone] | | | | | | | | +--------+ + + + + | 05/17/ | Office | Cardiology | Jeniffer Haines | | | 2019 | Visit | | [address] | | | | | | [address] | | | | | | [place] [address] | | | | | | [phone] | | | | | | | [...]
--- OUTSIDE RECORDS SUMMARY | ~2020-02-17 | XMS | Encounter Summary ---
Demographics + + + | Address | [address] | | | [place] [address] | + + + | Home Phone [...] Author + + + | Author | [facility] | | | and [place] | + + + | Organization | [facility] | | [...] Team Providers + +------+ + | Care Records Management Assistant Name | Role | Phone | [...] + + | 09/23/ | Telephone | [facility] | Gregor Mccord MD | Appointment | | 2016 | | GASTROENTEROLOGY | [address], [place] | (Scheduled ERCP) | | | | [address] [place] | [address] [place], [place] | | | | | [address] [place], [place] | [address] | | | | | [address] | | | | | | [phone] | | | +--------+ + + + [...] an ERCP. scheduled for September 26 at [place]' s checking in at 11 AM. Reviewed instructions and medications. Case ordered. documented in this encounter Plan of Treatment +--------+ + + + + | Date | Type | Specialty | Care Team | Description | +--------+ + + + + | 02/21/ | Appointment | Pain Medicine | Sam Samuels DO | | | 2019 | | | [address] [facility] | | | | | | [place] [address] | | | | | | [phone] | | | | | | | | +--------+ + + + + | 05/17/ | Office | Cardiology | Jeniffer Haines | | | 2019 | Visit | | [address] | | | | | | [address] | | | | | | [place] [address] | | | | | | [phone] | | | | | | | | +--------+ + + + + documented as of this encounter Visit Diagnoses + + | Diagnosis | + + | Common bile duct stone - Primary Calculus of bile duct without mention of | | cholecystitis or obstruction | + + documented in this encounter"
--- OUTSIDE RECORDS SUMMARY | ~2020-02-17 | XMS | Encounter Summary ---
Demographics + + + | Address | [address] | | | [place] [address] | + + + | Home Phone [...] Team Providers + +------+ + | Care Notch Grinder Name | Role | Phone | [...] | | Physical | Diagnoses | | Sondheimer, | | | | Medicine and | Disturbance | Ray, | MD Malcom | | | | Rehabilitatio | of skin | [place], | [address] | | | | n | sensation | PA-C [address] | | | | | Procedures | [address], | [place] | | | | | [place] MOTOR | [address] | [address] Phone: | | | | | &/SENS 1-2 | [place] | [phone] | | | | | NRV CNDJ | [address] | Fax: | | | | | PRECONF | Phone: | [phone] | | | | | ELTRODE LIMB | [phone] | | | | | | [place] NEEDLE | Fax: | | | | | | EMG EA | [phone] | | | | | | EXTREMITY | | | | | | | W/PARASPINL | | | | | | | AREA LIMITED | | | | | | | [place] EMG, | | | | | | | NEEDLE, TWO | | | | | | | LIMBS [place] | | | | | | | MOTOR &/SENS | | | | | | | 3-4 NRV | | | | | | | CNDJ PRECONF | | | | | | | ELTRODE | | | | | | | [place]B [place] | | | | | | | MOTOR &/SENS | | | | | | | 5-6 NRV | | | | | | | CNDJ PRECONF | | | | | | | ELTRODE | | | | | | | [place]B [place] | | | | | | | NEEDLE EMG | | | | | | | EA EXTREMTY | | | | | | | W/PARASPINL | | | | | | | AREA | | | | | | | COMPLETE [place] | | | | | | | [...] [address] | [address] [place], | (Primary Dx); Hyper | | | | [place] | [place] [address] | reflexia | | | | [address] | [phone] | | | | | [phone] | | | +--------+ + + + [...] Peripheral polyneuropathyPost-Procedure Diagnose(s): P olyneuropathy; Hyper reflexia [facility] Musculoskeletal, Sports and Spine, Physiatry [address] [address] Test Date: 02/25/2016 Patient Name: Scarlet Murguia : 1935 Physician: Tomás Mojica MD MR #: [id number] Sex: Female Referring Physician: [place] Bell PA-C [...] some sort of testing done by a field professional and she was diagnosed with a [...] Knee 17.5 0.2 Right Tibial Motor (Abd Castañead Brev) Ankle 4.5 <6.1 *0.8 >3.0 Knee [...] hesitate to call. Malcom Mojica MD Diplomate, [place] [employer] and Rehabilitation. documented in thi s encounter Plan of Treatment +--------+ + + + + | Date | Type | Specialty | Care Team | Description | +--------+ + + + + | 02/21/ | Appointment | Pain Medicine | Sam Samuels DO | | | 2019 | | | [address] | | | | | | [place] [address] | | | | | | [phone] | | | | | | | | +--------+ + + + + | 05/17/ | Office | Cardiology | Jeniffer Haines | | | 2019 | Visit | | [address] | | | | | | [address] | | | | | | [place] [address] | | | | | | [phone] | | | | | | | [...] + | Malcom Mojica MD 02/26/2016 14:11 [facility] | | | [facility] Musculoskeletal, Sports and Spine, Physiatry [facility] [address] [place] [address] Ph: | | | Test Date: 02/25/2016 | | | Patient Name: Scarlet Murguia : 1935 Physician: Tomás Mojica, | | | MR #: [id number] Sex: Female Referring Physician: Aurora | | [...] | | | testing done by a field professional and she was diagnosed with a [...] Malcom Mojica MD Diplomate, | | | [place] Board of Physical Medicine and Rehabilitation. | [...] | samples are screened | uIU/mL | [facility] | | | | using a 2nd [...] | + + + + + | [facility] | [address] | [place] | [phone] | | [facility] | | [address] | | | - LABORATORY | | | | + + + + + Hepatitis A, B, C Panel, [place] (02/25/2016 3:39 PM PDT) + + + [...] [place] | | | | | | [address] | | | | + + + [...] [address] | [place] [address] | [phone] | + + + + + Protein [...] | | Globulin % | | | . [facility] | | | | | | [facility] | | | | | | C[facility] - | | | | | | LABORATORY | | + +-------+ + + + | ELP Gamma | 9.7 | % | [facility] | | | Globulin % | | | . [facility] | | | | | | [facility]ICAL | | | | | | CENTER - | | | | | | LABORATORY | | + +-------+ + + + + + | Specimen | + + | Blood | + + + + + | Narrative | Performed At | + + + | Normal | [facility] | | Vincent Sanchez MD02-27-16 | [facility] | |02-27-16 | [facility] | | | - LABORATORY | + + + + + + + + | Performing | Address | City/State/Zipcode | Phone Number | | Organization | | | | + + + + + | [facility] | [address] | [place], [place] | [phone] | | [facility] | | [address] | | | - LABORATORY | | [...] [place] | | | | | | [address] | | | | + + + [...] [address] | [place] [address] | [phone] | + + + + + Methylmalonic [...] | [facility] | | | | [place] | | | | | | [address] | | | | + + + + + + + + | Specimen | + + | Blood specimen | | (specimen) | + + + + + + + | Performing | Address | City/State/Zipcode | Phone Number | | Organization | | | | + + + + + | [facility] | [address] | [place] [address] | [phone] | + + + + + Vitamin B-12 (02/25/2016 3:39 PM PDT) + + + + + + | Component | Value | Ref Range | Performed | Pathologist | | | | | At | Signature | + + + + + + | VITAMIN | 283Comment: DEFICIENT: | 180 - 914 pg/mL | [facility] | | | B-12 | <145 | | [facility] | | | | pg/mLINDETERMINATE: | | [...] + | [facility] | [address] | [place] | [phone] | | [facility] | | [address] | | | - LABORATORY | | | | + + + + + documented in this encounter Visit Diagnoses + + | Diagnosis | + + | Peripheral polyneuropathy - Primary Unspecified hereditary and idiopathic peripheral | | neuropathy | + + | Hyper reflexia Abnormal reflex | + + documented in this encounter
--- OUTSIDE RECORDS SUMMARY | ~2020-02-17 | XMS | Encounter Summary ---
Demographics + + + | Address | [address] | | | [place] [address] | + + + | Home Phone [...] | [facility] | | | and [place] | + + + | Organization | [facility] | | [...] Team Providers + +------+ + | Care Entry Level Marketing Assistant Name | Role | Phone | [...] | | | | [address] | [place] [address] | | | | | [address] | [phone] | | | | | [place], [place] | | | | | | [address] | | | | | | [phone] | | | +--------+ + + + [...] Miscellaneous Notes Telephone Encounter - Desiree Martinez Baseball Inspector - 12/21/2019 1:46 PM PDTLM daphne zhang patient know we got the message that she was confirming her procedure for tomorrow matteo ford at 0930 elephone Encounter - Desiree Cornejo - 12/21/2019 1:24 PM PDTJune, is returnin g call for Pre-Procedure and would like a call back. Additional Call Details: Returned call to confirm elephone Encoun Desiree Cui Baseball Inspector - 12/21/2019 1:22 PM PDTLM for patient with the p re op instructions for the patients procedure with Dr SAMUELS and the arrival time of 0930AM docum ented in this encounter Plan of Treatment +--------+ + + + + | Date | Type | Specialty | Care Team | Description | +--------+ + + + + | 02/21/ | Appointment | Pain Medicine | Sam Samuels DO | | 2019 | | | [address] [facility] | | | | | | [place] [address] | | | | | | [phone] | | | | | | | | +--------+ + + + + | 05/17/ | Office | Cardiology | Jeniffer Haines | | | 2020 | Visit | | [address] | | | | | | [address] [address] | | | | | | [place] [address] | | | | | | [phone] | | | | | | | | +--------+ + + + + documented as of this encounter Visit Diagnoses Not on filedocumented in this encounter"
--- OUTSIDE RECORDS SUMMARY | ~2020-02-17 | XMS | Encounter Summary ---
Demographics + + + | Address | [address] | | | [place] [address] | + + + | Home Phone | | + + + | Preferred Language | Unknown | + + + | Marital Status | | + + + | Hindu Affiliation | 1077 | + + + | Race | White | + + + | Ethnic Group | Not or | + + + Author + + + | Author | [facility] | | | and [place] | + + + | Organization | [facility] | [...] Team Providers + +------+ + | Care Pantograph Setter Name | Role | Phone | [...] | Gregor Brock MD | [address] | | | | | abnormality | [address] | [place], | | | | | Procedures | [address], [place] | [place] | | | | | MRI MRCP | [address] [place] | [address] | | | | | Liver wo | [place], [place] | Phone: | | | | | Contrast [place] | [address] | [phone] | | | | | MRI, | Phone: | Fax: | | | | | ABDOMEN | [phone] | [phone] | | | | | (MRI) | Fax: | | | | | | | [phone] | | +--------+--------+ + + + + [...] | Gregor Brock MD | [address] | | | | | abnormality | [address] | [place], | | | | | Procedures | [address] [place], [place] | [place] | | | | | MRI MRCP | [address] [place] | [address] | | | | | Liver wo | [place], [place] | Phone: | | | | | [place]rast [place] | [address] | [phone] | | | | | MRI, | Phone: | Fax: | | | | | ABDOMEN | [phone] | [phone] | | | | | (MRI) | Fax: | | | | | | | [phone] | | +--------+--------+ + + + + Encounter Details +--------+ + + + + | Date | Type | Department | Care Team | Description | +--------+ + + + + | 10/30/ | Hospital | [facility] | Gregor Mccord MD | Bile duct | | 2017 | Encounter | MED CTR MRI [address] | [address], [place] | abnormality | | | | [address] [place], | [address] [place], [place] | | | | | [place] [address] | [address] | | | | | [phone] | | | +--------+ + + + [...] | | | 0 | | ([facility]) | | | | | | | MISC | | | | | | + + + +---------+ + + | [place]-3 Fatty | Take 1 tablet by | [...] [address] | | | | | | [place] [address] | | | | | | [phone] | | | | | | | | +--------+ + + + + | 05/17/ | Office | Cardiology | Jacek Haines | | | 2019 | Visit | | [address] | | | | | | [address] | | | | | | [place] [address] | | | | | | [phone] | | | | | | | [...] bile duct. COMPARISON: Lumbar spine dated | [facility] | | 02/11/2016. PROTOCOL: Coronal T2 product coordinator, axial T2 product coordinator, coronal 3D | [facility] | | respiratory triggered, coronal T2 thin [...] spine dated | | 02/11/2016.PROTOCOL: Coronal T2 product coordinator, axial T2 product coordinator, coronal 3D respiratory | | triggered,coronal T2 [...] A few more small subcentimeter | | Z2ntvfitlehvi cyst are seen within the left kidney [...] | + + + + + | [facility] | [address] | [place] | [phone] | | [facility] | | [address] | | | - IMAGING | | | | + + + + + documented in this encounter Visit Diagnoses + + | Diagnosis | + + | Bile duct abnormality Unspecified disorder of biliary tract | + + documented in this encounter"
--- OUTSIDE RECORDS SUMMARY | ~2020-02-17 | XMS | Encounter Summary ---
Demographics + + + | Address | [address] | | | [place] [address] | + + + | Home Phone [...] + + + | Author | [facility] | | | and [place] | + + + | Organization | [facility] | | [...] Team Providers + +------+ + | Care Oracle Database Manager Name | Role | Phone | + +------+ + | Susan Leos | PCP | | | PA-C | | | + +------+ + Reason for Visit + +--------+ + | Reason | Onset | Comments | | | Date | | + +--------+ + | Imaging Only | 10/22/ | MRI MRCP Liver without contrast scheduled | | | 2016 | | + +--------+ + Encounter Details +--------+ + + + + | Date | Type | Department | Care Team | Description | +--------+ + + + + | 10/22/ | Telephone | [facility] | Gregor Mccord MD | Imaging Only (MRI | | 2017 | | GASTROENTEROLOGY | [address], [place] | MRCP Liver without | | | | [address] [place] | [address] [place], [place] | contrast scheduled) | | | | [address] [place], [place] | [address] | | | | | [address] | | | | | | [phone] | | | +--------+ + + + [...] this encounter Miscellaneous Notes Telephone Encounter - Mary Watson CMA - 10/22/2016 10:21 AM PDTScheduled patient for h er MRI MRCP on 10/30/2016 with a check in time of 1230 for a 1300 appointment. Teresitakaren nt is to be NPO for 6 hours prior. Patient is notified, and thanks us for scheduling her.Nimco ctronically signed by Mary Watson CMA at 10/22/2016 10:23 AM PDTdocumented in this encou nter Plan of Treatment +--------+ + + + + | Date | Type | Specialty | Care Team | Description | +--------+ + + + + | 02/21/ | Appointment | Pain Medicine | Sam Samuels DO | | | 2019 | | | [address] [facility] | | | | | | [place] [address] | | | | | | [phone] | | | | | | | | +--------+ + + + + | 05/17/ | Office | Cardiology | Jeniffer Haines | | | 2020 | Visit | | [address] | | | | | | [place] | | | | | | [place] [address] | | | | | | [phone] | | | | | | | | +--------+ + + + + documented as of this encounter Visit Diagnoses Not on filedocumented in this encounter"
--- OUTSIDE RECORDS SUMMARY | ~2020-02-17 | XMS | Encounter Summary ---
Demographics + + + | Address | [address] | | | [place] [address] | + + + | Home Phone [...] Team Providers + +------+ + | Care Door Furring Installer Name | Role | Phone | [...] | | | | | | | [place] ERCP DX | | | | | | | COLLECTION | | | | | | | SPECIMEN | | | | | | | BRUSHING/WAS | | | | | | | [place] | | | | | | | ANESTH,UGI | | | | | | | ENDOSCOPY | | | | | | | ERCP | | | +--------+--------+ + + + + Encounter Details +--------+ + + + + | Date | Type | Department | Care Team | Description | +--------+ + + + + | 10/14/ | Hospital | [facility] | Gregor Mccord MD | Choledocholithiasis | | 2017 | Encounter | MED CTR MP INTRA OP | [address], [place] | (Primary Dx) | | | | [address] | [address] [place], [place] | | | | | [place], [place] | [address] | | | | | [address] | | | | | | [phone] | | | +--------+ + + + [...] the test. This includes: All prescription medicines Frdj-zmw-cydvwzr medicines that don't need a prescription Any [...] infection or torn bowel. Date Last Reviewed: 2014 [employer]. [address] [place] [address]. All righ ts reserved. This information is [...] be awakened Date Last Reviewed: 04/01/2016 [employer]. [address] [place] [address]. All righ ts reserved. 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 Avoiding fatty foods such as Micronesian [place], hamburgers, carrera, ham and pork products, wi [...] | | 2019 | | | [address] [facility] | | | | | | [place] [address] | | | | | | [phone] | | | | | | | | +--------+ + + + + | 05/17/ | Office | Cardiology | Jeniffer Haines | | | 2020 | Visit | | [address] | | | | | | [address] | | | | | | [place] [address] | | | | | | [phone] | | | | | | | [...] | | [facility] | | GastroenterologyPatient Name: Scarlet MurguiaProcedure Date: 10/14/2016 12:25 | [facility] | | PMMRN: [id number] #: [id number] of : 4Admit | | | Type: AmbulatoryAge: 80Room: [facility] 01Gender: FemaleNote Status: | | [...] the anesthesiologist and | | | the electrostatic powder coating technician in the endoscopy suite. Mental Status [...] was visible on the | | | mechanical product design engineer film. The esophagus was successfully intubated under [...] Scope In: 12:40:12 PMScope Out: 12:55:03 PM [place] | | | [facility], [address] [place] [address] | | | [phone] | | | - Continue present medications. [...] |Scope Out: 12:55:03 PM | | | [facility], [address] [facility], [place], [place] | | | [address] | | + + -+ + +---------+ [...]
--- OUTSIDE RECORDS SUMMARY | ~2020-02-17 | XMS | Encounter Summary ---
Demographics + + + | Address | [address] | | | [place] [address] | + + + | Home Phone | | + + + | Preferred Language | Unknown | + + + | Marital Status | | + + + | Anabaptist Affiliation | [id number] | + + + [...] Team Providers + +------+ + | Care Trimming Machine Set Up Operator Name | Role [...] + + | 07/07/ | Documentati | [facility] | Carlotta Peters, | Other (end of study) | | 2020 | on | CARDIOLOGY [place] | Technologist | | | | | [address] | | | | | | [place], [place] | | | | | | [address] | | | | | | [phone] | | | +--------+ + + + [...] | | 2019 | | | [address] [facility] | | | | | | [place] [address] | | | | | | [phone] | | | | | | | | +--------+ + + + + | 05/17/ | Office | Cardiology | Zaki Jeniffer | | | 2020 | Visit | | [address] | | | | | | [address] | | | | | | [place] [address] | | | | | | [phone] | | | | | | | | +--------+ + + + + documented as of this encounter Visit Diagnoses + + | Diagnosis | + + | Syncope and collapse | + + | Murmur, heart Undiagnosed cardiac murmurs | + + documented in this encounter
--- OUTSIDE RECORDS SUMMARY | ~2020-02-17 | XMS | Encounter Summary ---
Demographics + + + | Address | [address] | | | [place] [address] | + + + | Home Phone [...] Providers + +------+ + | Care Customer Liaison Name | Role | Phone | + [...] | | Spondylolist | [place] | [address] | | | | | [place] | [address] | Phone: | | | | | L4-L5 level | Phone: | [phone] | | | | | Bilateral | [phone] | Fax: | | | | | lumbar | Fax: | [phone] | | | | | radiculopath | [phone] | | | | | | y [...] | | displacement | [address] | [place], [place] | | | | | , lumbar | Ave | [address] Phone: | | | | | [place] | [place] | [phone] | | | | | | [place] | Fax: | | | | | | [address] | [phone] | | | | | | Phone: | | | | | | | [phone] | | | | | | | Fax: | | | | | | | [phone] | | +--------+--------+ + + + + Encounter Details +--------+---------+ + + + | Date | Type | Department | Care Team | Description | +--------+---------+ + + + | 02/03/ | [facility] | [facility] | Ray, | 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 rn long term care risk can lead to osteoporosis which is [...] by mouth Daily. Multiple Vitamins-Minerals ([facility]) MISC Take by mouth. [place]-3 Fatty Acids (PRO NUTRIENTS OMEGA 3 PO) [...] has no apparent deficits with short or remote computer terminal operator memory. She has appropriate fund of [...] had a NCS performed b y a senior mechanical designer in [place]. I would like to get those records. [...] | | 2019 | | | [address] [facility] | | | | | | [place] [address] | | | | | | [phone] | | | | | | | | +--------+ + + + + | 05/17/ | Office | Cardiology | Jeniffer Haines | | | 2020 | Visit | | [address] | | | | | | [address] | | | | | | [place] [address] | | | | | | [phone] | | | | | | | [...]
--- OUTSIDE RECORDS SUMMARY | ~2020-02-17 | XMS | Encounter Summary ---
Demographics + + + | Address | [address] | | | [place] [address] | + + + | Home Phone | | + + + | Preferred Language | Unknown | + + + | Marital Status | | + + + | Mandaeism Affiliation | 1077 | + + + | Race | White | + + + | Ethnic Group | Not or | + + + Author + + + | Author | [facility] | | | and [place] | + + + | Organization | [facility] | | [...] Team Providers + +------+ + | Care Paramedic Name | Role | Phone | + [...] | | | | | | [place] ERCP DX | | | | | | | COLLECTION | | | | | | | SPECIMEN | | | | | | | BRUSHING/WAS | | | | | | | [place] | | | | | | [...] CTR MP INTRA OP | [address], [place] | | | | | [address] | [address] [place], [place] | | | | | [place], [place] | [address] | | | | | [address] | | | | | | [phone] | | | +--------+---------+ + + + [...] the test. This includes: All prescription medicines Fhnk-ekr-zfqvncb medicines that don't need a prescription Any [...] infection or torn bowel. Date Last Reviewed: 12/01/20141999[address]98 [employer]. [address] [place] [address]. All righ ts reserved. This information is [...] be awakened Date Last Reviewed: 04/01/2016 [employer]. [address] [place] [address]. All righ ts reserved. 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 Avoiding fatty foods such as [place], hamburgers, carrera, ham and pork products, wi [...] | | 2019 | | | [address] [facility] | | | | | | [place] [address] | | | | | | [phone] | | | | | | | | +--------+ + + + + | 05/17/ | Office | Cardiology | Jeniffer Haines | | | 2019 | Visit | | [address] | | | | | | [address] | | | | | | [place] [address] | | | | | | [phone] | | | | | | | [...] + | Howard, Rad Results In - 10/14/2016 1:38 PM PDT [...] | | GastroenterologyPatient Name: November BladeProcedure Date: 10/14/2016 12:25 | [facility] | | PMMRN: [id number] #: [id number] of : 1936Admit | | | Type: AmbulatoryAge: 80Room: [facility] 01Gender: FemaleNote Status: | | | FinalizedAttending MD: Gregor Mccord MDProcedure: | | | ERCPIndications: Biliary stent removalProviders: | | | Gregor cMcord MD, Jalyn Ring RN, Parul | | [...] the anesthesiologist and | | | the oil and gas exploration technician in the endoscopy suite. Mental Status [...] was visible on the | | | training and quality manager film. The esophagus was successfully intubated under [...] Scope In: 12:40:12 PMScope Out: 12:55:03 PM [place] | | | [facility] [place] [address] | | | [phone] | | | - Continue present medications. | | | - Return to primary care physician as previously scheduled. | | | - Telephone GI clinic if symptomatic. | | |Gergor Mccord MD | | |10/14/2016 1:11:31 PM [...] |Scope Out: 12:55:03 PM | | | [facility], [address] [facility], [place], [place] | | | [address] | | + + -+ + +---------+ [...]
--- OUTSIDE RECORDS SUMMARY | ~2020-02-17 | XMS | Encounter Summary ---
Demographics + + + | Address | [address] | | | [place] [address] | + + + | Home Phone [...] Team Providers + +------+ + | Care Garage Door Opener Installer Name | Role | Phone | [...] Closed | | Radiology | Diagnoses | Yunior, | [facility] | | | | | Hyper | MD Malcom | [address] | | | | | reflexia | [address] | [place], | | | | | Abnormal | [address] | [place] | | | | | gait | [address] | [address] | | | | | Procedures | [place], [place] | Phone: | | | | | MRI Cervical | [address] | [phone] | | | | | Spine wo | Phone: | Fax: | | | | | Contrast | [phone] | [phone] | | | | | | Fax: | | | | | | | [phone] | | +--------+--------+ + + + + Encounter Details +--------+ + + + + | Date | Type | Department | Care Team | Description | +--------+ + + + + | 03/03/ | Orders Only | [facility] [place] | Malcom Mojica, | Hyper reflexia | | 2016 | | PHYSIATRY [address] | [address] | (Primary Dx); | | | | [address] | [address] [place], | Abnormal gait | | | | [place] | [place] [address] | | | | | [address] | [phone] | | | | | [phone] | | | +--------+ + + + [...] [address] | | | | | | [place] [address] | | | | | | [phone] | | | | | | | | +--------+ + + + + | 05/17/ | Office | Cardiology | Jeniffer Haines | | | 2020 | Visit | | [address] | | | | | | [address] | | | | | | [place] [address] | | | | | | [phone] | | | | | | | [...]
--- OUTSIDE RECORDS SUMMARY | ~2020-02-17 | XMS | Encounter Summary ---
Demographics + + + | Address | [address] | | | [place] [address] | + + + | Home Phone | | + + + | Preferred Language | Unknown | + + + | Marital Status | | + + + | Orthodox Affiliation | Unknown | + + + | Race | White | + + + | Ethnic Group | Not or | + + + Author + + + | Author | [facility] | + + + | Organization | [facility] | + + + | Address [...] Providers + +------+ + | Care Manager Center Name | Role | Phone | + +------+ + PCP | Unavailable | + +------+ + Encounter Details +--------+ + + + + | Date | Type | Department | Care Team | Description | +--------+ + + + + | 09/24/ | Hospital | Dermatopathology | | | | 2016 | Encounter | [address] | | | | | | Mailcode: CH16D | | | | | | [facility] | | | | | | and Healing, | | | | | | Building [address], [address]th | | | | | | Floor [place], [place] | | | | | | [address] | | | | | | [phone] | | | +--------+ + + + [...] ls | | | | | | Received:[id number] | | | | | | 360-16 [...] Materials | | | | | | Returned:[id number] | | | | | | 360-16 [...] Erika | | | | | | Lucio | | | | | | arleth Signed 10/02/2015 | | | | | [...] [facility] | Mailcode CH5D [address] | [place] [address] | | | DERMATOPATHOLOGY | [address] | | | + + + + + | [facility] | Mailcode CH5D [address] | [place] [address] | | | DERMATOPATHOLOGY | [address] | | | + + + + + documented in this encounter Visit Diagnoses Not on filedocumented in this encounter"
--- OUTSIDE RECORDS SUMMARY | ~2020-02-17 | XMS | Encounter Summary ---
Demographics + + + | Address | [address] | | | [place] [address] | + + + | Home Phone [...] Team Providers + +------+ + | Care Loan Examiner Name | Role | Phone | + [...] | | | | | from | [address] | [address] | | | | | [place] at | [address] | [place] | | | | | [facility] | John, | [place], [place] | | | | | Procedures | [place] | [address] Phone: | | | | | NEW PATIENT | [address] | [phone] | | | | | | Phone: | Fax: | | | | | | [phone] | [phone] | | | | | | Fax: | | | | | | | [phone] | | + +--------+ + + + + Encounter Details +--------+---------+ + + + | Date | Type | Department | Care Team | Description | +--------+---------+ + + + | 03/14/ | Office | [facility] | [place] | 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[place], [address]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[place], [place]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 (Primary | | | | [address] | [place] [address] | Dx) | | | | [phone] | [phone] | | | | | | | [...] Procedure: ERCP; Surgeon: Gregor Mccord MD; Location: [facility] MEDICAL PROCEDURE UNIT ERCP N/A 10/14/2016 Procedure: ERCP w/ stent pull; Surgeon: Gregor Mccord MD; Location: [facility] MEDICAL PROCEDU RE UNIT PARTIAL HYSTERECTOMY 1972 [...] MISC, Take by mouth., Disp: , Rfl: [place]-3 Fatty Acids (PRO NUTRIENTS OMEGA 3 PO), [...] | 2019 | | | [address] | | | | | | [place] [address] | | | | | | [phone] | | | | | | | | +--------+ + + + + | 05/17/ | Office | Cardiology | Zaki Jeniffer | | | 2020 | Visit | | [address] | | | | | | [address] | | | | | | [place] [address] | | | | | | [phone] | | | | | | | [...]
--- OUTSIDE RECORDS SUMMARY | ~2020-02-17 | XMS | Encounter Summary ---
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/ | | [place], [place] | [place] [address] | left hip | | 2019 | | [address] | [phone] | | | | | [phone] | | | +--------+ + + + [...] disease), lumbar 02/04/2016 Diabetes type 2, controlled ([facility]) Full dentures upper & lower GERD (gastroesophageal reflux disease) HTN (hypertension) Hyperlipidemia Hypothyroidism Macular degeneration Other intervertebral disc displacement, lumbar region Peripheral neuropathy Pneumonia 2005 Skin cancer Spondylolisthesis at L4-L5 level 02/04/2016 Stress incontinence in female Type 2 diabetes mellitus ([facility]) Past Surgical History: Procedure Laterality Date CHOLECYSTECTOMY COLONOSCOPY 2003; 2009; 2011 polyp's removed CYSTOCELE REPAIR 1971 ERCP N/A 09/26/2016 Procedure: ERCP; Surgeon: Gregor Mccord MD; Location: [facility] MEDICAL PROCEDURE UNIT ERCP N/A 10/14/2016 Procedure: ERCP w/ stent pull; Surgeon: Gregor Mccord MD; Location: [facility] MEDICAL PROCEDU RE UNIT HARDWARE REMOVAL Left 03/29/2019 Procedure: REMOVE HARDWARE LOWER EXTREMITY-HIP; Surgeon: Mark [place] MD; Location : [facility] [place] [facility] [place] HYSTERECTOMY 1971 [...] Code Follow up: Gus Orozco PA-C [address] [place] [facility] [address] In 2 weeks Discharge Medications Changed Medications [...] | | | | 0 | | ([facility] [employer]) | | | | | | | MISC | | | | | | + + + +---------+ + + | [place]-3 Fatty | Take 1 tablet by | [...] might be different fr om the original. [facility] Progress Note Primary Care Physician: [...] void by this afternoon we will anchor Trujillo and have her follow-up with urology outpatient -Progress diet and increase po fluids -wbat with walker -possible d/c today if able to void, otherwise dc tomorrow Other issues stable. Plan discussed with patient/or family Electronically signed by: Gus Orozco PA-C, 03/30/2019 9:32 Viv Horowitz RN - 03/29/2019 1:03 PM PDTPT at bedside Viv Pop RN documented in this enc ounter Miscellaneous Notes Plan of Care - Pablo Santiago RN - 03/31/2019 2:35 PM PDTPt discharge instructions admin istered. No pt questions/concerns. Pt escorted off unit with belongings and prescriptions in hand. lan of Care - Pablo Stoll RN - 03/31/2019 1:42 PM PDT Problem: Adult Inpatient Plan of Care Goal: Optimal Comfort and Wellbeing Outcome: Ongoing, progressing Goal: Readiness for Transition of Care Outcome: Ongoing, progressing Problem: Pain (Hip Arthroplasty) Goal: Acceptable Pain Control Outcome: Ongoing, progressing Problem: Postoperative Urinary Retention (Hip Arthroplasty) Goal: Effective Urinary Elimination Outcome: Ongoing, progressing Pt SBA w/ FWW. Voiding, tolerating diet, ambulating. No reports of pain/discomfort. No que stion or concerns at this time. 1: 46 PM PDTPlan of Care - Yelitza Martin PT - 03/31/2019 12:30 PM PDT Physical Therapy Group Treatment Note Recommended discharge disposition: home with assist Post discharge physical therapy recommendation: (TBD, pending progress) Equipment Recommendations: 2 wheeled walker (FWW) Barriers to community-based discharge ? None ? Cognitive deficits ? Physical deficits ? Level of assist for self-care ? Level of assist for mobility ? Equipment needs ? Lack of family support ? Home design ? Precautions ? Neurologic impairment ? Vision ? Pa in ? Fall risk ? Finances ? Other Planned Interventions: (continue PT POC) POC (may reflect documentation from different provider) Planned Therapy Interventions: bal ance training, bed mobility training, gait training, home exercise program, patient/family e ducation, ROM (Range of Motion), stair training, strengthening, stretching, transfer trainin g Recommended Frequency: daily, 2 times/day for 7 days PT reassessment due 04/05/19 Next visit information: 03/31, L MADELYN Summary: Pt participated in total joint group therapy class - please see below for details . Precautions Precautions/Limitations: left posterior hip precautions Left Lower Extremity Weight-Bearing: weight-bearing as tolerated Stairs Number of Stairs: 4 Handrail Location: both sides Level of Shelby: stand by assist Assistive Device: 2 rails Technique Used: step to step (ascending), step to step (descending) Maintain Weight Bearing Status: able to maintain weight bearing status Safety Issues: balance decreased during turns Group Therapy Session: Therapy session in group setting today to promote education, socialization, & motivation. T gretchen?s session included: Seated Exercise: Heel/toe raises, Isometric hip abduction, LAQ, Glut squeeze x 10reps Standing Exercise: Marching, Hip abduction, Knee flexion, Heel raises x 10reps Patients actively encouraged each other throughout activities and motivated each other thro [facility] discussion of goals/plans after discharge. Educated pt on home and walker safety techniques. Also educated pt about performing safe ca r transfers. Educated and demonstrated using proper gait techniuqes and transitioning from F WW to Cane to no Assistive device. The patient performed stair training x 4 steps with SBA and B rails. Education Completed: Completed with: Patient Completed by: Verbal Education, Demonstration as indicated Response to Education: Stated Understanding, Returned Demonstration Goals Reflects last filed data and may be from multiple contributors. PT Goal Review Date Most Recent Value STG Review Date 04/05/19 at 03/29/2019 1246 All Bed Mobility Goal Most Recent Value LTG Status new at 03/29/2019 1246 LTG Shelby Level modified independent at 03/29/2019 1246 LTG Assistive Device none at 03/29/2019 1246 All Transfers Goal Most Recent Value LTG Status new at 03/29/2019 1246 LTG [place] Level stand by assist at 03/29/2019 1246 LTG Assistive Device 2 wheeled walker (FWW) at 03/29/2019 1246 Stair Goal Most Recent Value LTG Status new at 03/29/2019 1246 LTG Shelby Level contact guard assist at 03/29/2019 1246 LTG Assistive Device 2 rails at 03/29/2019 1246 LTG Number of Stairs 5 at 03/29/2019 1246 lan of Care - Arias Villar, [employer] - 03/31/2019 8:57 AM PDT Physical Therapy Treatment Note Recommended discharge disposition: home with assist Post discharge physical therapy recommendation: Equipment Recommendations: Barriers to community-based discharge ? None ? Cognitive deficits ? Physical deficits ? Level of assist for self-care ? Level of assist for mobility ? Equipment needs ? Lack of family support ? Home design ? Precautions ? Neurologic impairment ? Vision ? Pa in ? Fall risk ? Finances ? Other Planned Interventions: POC (may reflect documentation from different provider) Planned Therapy Interventions: bal ance training, bed mobility training, gait training, home exercise program, patient/family e ducation, ROM (Range of Motion), stair training, strengthening, stretching, transfer trainin g Recommended Frequency: daily, 2 times/day for 7 days PT reassessment due 04/05/19 Next visit information: 03/31 MADELYN Summary: pt sitting in chair ready to participate completed therex followed by transfer a nd gait training pt back sitting in chair post tx Precautions Precautions/Limitations: left posterior hip precautions Cognitive Assessment Orientation: oriented x 4 Transfers Sit-Stand, Level of Shelby: stand by assist Stand-Sit, Level of Shelby: stand by assist [id number], Assistive Device: 2 wheeled walker (FWW) Safety Issues: stands too far from assistive device Impairments: ROM decreased, strength decreased Gait Level of Shelby: stand by assist Assistive Device: 2 wheeled walker (FWW) Distance (feet): 150 Gait Deviations: malachi decreased, step length decreased Safety Issues: step length decreased Impairments: strength decreased Exercises MADELYN exercises: ankle pumps, quad sets, glut sets, hip abduction/adduction, heel slides Goals Reflects last filed data and may be from multiple contributors. PT Goal Review Date Most Recent Value STG Review Date 04/05/19 at 03/29/2019 1246 All Bed Mobility Goal Most Recent Value LTG Status new at 03/29/2019 1246 LTG Shelby Level modified independent at 03/29/2019 1246 LTG Assistive Device none at 03/29/2019 1246 All Transfers Goal Most Recent Value LTG Status new at 03/29/2019 1246 LTG [place] Level stand by assist at 03/29/2019 1246 LTG Assistive Device 2 wheeled walker (FWW) at 03/29/2019 1246 Stair Goal Most Recent Value LTG Status new at 03/29/2019 1246 LTG Shelby Level contact guard assist at 03/29/2019 1246 LTG Assistive Device 2 rails at 03/29/2019 1246 LTG Number of Stairs 5 at 03/29/2019 1246 lan of Care - Alison Jarrett, OT Student - 03/31/2019 7:57 AM PDT Occupational Therapy OT Visit Type: Treatment Note Recommended discharge disposition: home with assist(pt reports daughter will assist during the day) Post discharge occupational therapy recommendation: pt is motivated participant, family in volved/supportive, home health, outpatient therapy Equipment Recommendations: 2 wheeled walker (FWW), sock aide, room service clerk, long handled sponge Barriers to community-based discharge ? None ? Cognitive deficits ? Physical deficits ? Level of assist for self-care ? Level of assist for mobility ? Equipment needs ? Lack of family support ? Home design ? Precautions ? Neurologic impairment ? Vision ? P ain ? Fall risk ? Finances ? Other Planned Therapy Interventions: ADL retraining, bed mobility training, patient/family educat ion, transfer training Recommended Frequency: 2 times/wk for 10 days OT reassessment due STG Review Date: 04/09/19 Next visit information: 03/31; L MADELYN, LB dress, shower transfer Summary: Pt was seated in recliner upon entry, alert and agreeable to OT session. Vitals W FL. Session focused on LB dress with AE, toilet and walk in shower transfers with posterior hip precautions. Pt has fair recall of posterior precautions, provided verbal education and demonstration for precautions and FWW use/safety. Pt requires min vc's for adherence to prec autions during transfers and LB dressing. Pt was left seated in recliner, call light in reac h, all needs met. Precautions Precautions/Limitations: falls, left posterior hip precautions Left Lower Extremity Weight-Bearing: weight-bearing as tolerated Cognitive Assessment Cognitive Comments: pt has difficulty recalling precautions, provided education and demonst ration of precautions Orientation: oriented x 4 Fine Motor Coordination ADLs Feeding Grooming washed hands at sink Grooming, Level of Shelby: independent Assistive Device: none Grooming Assess/Train, Position: supported standing Grooming Impairments: impaired balance Bathing Upper body dressing donned shirt UB Dressing, Level of Shelby: set up required Assistive Device: none UB Dressing Assess/Train, Position: sitting UB Dressing Impairments: impaired balance Lower body dressing donned pants LB Dressing, Level of Shelby: minimal assist (75% patient effort), verbal cues requir ed Assistive Device: room service clerk LB Dressing Assess/Train, Position: sitting LB Dressing Impairments: ROM decreased, strength decreased, impaired balance Toileting pt urinated in toilet Toileting, Level of Shelby: stand by assist Assistive Device: grab bar Toileting Assess/Train, Position: sitting Toileting Impairments: strength decreased, impaired balance IADLs FUNCTIONAL MOBILITY Bed Mobility Transfers Sit-Stand, Level of Shelby: contact guard assist, verbal cues required Stand-Sit, Level of Shelby: contact guard assist, verbal cues required [id number], Assistive Device: 2 wheeled walker (FWW) Toilet, Level of Shelby: contact guard assist, verbal cues required Toilet, Assistive Device: grab bars, 2 wheeled walker (FWW) Walk-in shower, Level of Shelby: contact guard assist, verbal cues required Walk-in shower, Assistive Device: 2 wheeled walker (FWW), grab bars Impairments: ROM decreased, strength decreased, impaired balance Wheelchair Mobility Balance Balance Sitting Balance: Static: good balance Sitting Balance: Dynamic: good balance Standing Balance: Static: fair balance Standing Balance: Dynamic: good balance Therapeutic Exercise Functional Endurance ROM Strength Goals Reflects last filed data and may be from multiple contributors. OT Goal Review Date Most Recent Value STG Review Date 04/09/19 at 03/30/2019 06 LB Dressing Goal Most Recent Value STG Status new at 03/30/2019654 STG Shelby Level set up required at 03/30/2019654 STG Adaptive Equipment room service clerk, shoe horn, long handled, sock-aid at 03/30/2019654 STG Comments Pt will don underwear and pants using AE as necessary while maintaing hip pre cautions. at 03/30/2019654 Additional Goals #1 OT Most Recent Value STG Status new at 03/30/2019654 STG Pt will go from supine to sitting mod I using hand rails and HOB as needed while maint aing hip precautions, at 03/30/2019654 Documentation and evaluation conducted by Alison Jarrett, OT Student , under the direction o f the therapist cosigning below. I, the undersigning therapist, was present throughout this evaluation and treatment session, and directed the interventions and plan of care noted bel ow. I am directly responsible for all the treatments and interventions listed, I have revie wed this note, and I agree with the above plan of care and goals. lan of Care Stephanie Fung RN - 03/31/2019 6:30 AM PDTNoc chart check complete. lan of Stephanie Patel RN - 03/30/20 19 11:07 PM PDT Problem: Adult Inpatient Plan of Care Goal: Patient-Specific Goal Outcome: Ongoing, progressing Goal: Absence of Hospital-Acquired Illness or Injury Outcome: Ongoing, progressing Goal: Optimal Comfort and Wellbeing Outcome: Ongoing, progressing Problem: Infection (Hip Arthroplasty) Goal: Absence of Infection Signs/Symptoms Outcome: Ongoing, progressing Problem: Pain (Hip Arthroplasty) Goal: Acceptable Pain Control Outcome: Ongoing, progressing Problem: Postoperative Urinary Retention (Hip Arthroplasty) Goal: Effective Urinary Elimination Outcome: Ongoing, progressing Patient denies any pain or discomfort at this time. Will continue to monitor. lan of Care - Darby Yeh RN - 03/30/2019 5:22 PM PDTEnd of shift audit complete. Electronically si gned by Darby Roman RN at 03/30/2019 5:22 PM PDTPlan of Care - Marta Hi RN - 03/30/2019 2:41 PM PDTCM faxed script for FWW to [facility] for bedside delivery. MARTA HI RN lan of Care - Arias Patterson PTA - 03/30/2019 9:43 AM PDTFormatting of this note might be different from th e original. Physical Therapy Treatment Note Recommended discharge disposition: home with assist Post discharge physical therapy recommendation: Equipment Recommendations: Barriers to community-based discharge ? None ? Cognitive deficits ? Physical deficits ? Level of assist for self-care ? Level of assist for mobility ? Equipment needs ? Lack of family support ? Home design ? Precautions ? Neurologic impairment ? Vision ? Pa in ? Fall risk ? Finances ? Other Planned Interventions: POC (may reflect documentation from different provider) Planned Therapy Interventions: bal ance training, bed mobility training, gait training, home exercise program, patient/family e ducation, ROM (Range of Motion), stair training, strengthening, stretching, transfer trainin g Recommended Frequency: daily, 2 times/day for 7 days PT reassessment due 04/05/19 Next visit information: 03/30 MADELYN Summary: pt sitting in chair ready to participate completed therex followed by transfer a nd gait training pt back sitting in chair post tx Precautions Precautions/Limitations: left posterior hip precautions Cognitive Assessment Orientation: oriented x 4 Transfers Sit-Stand, Level of Shelby: minimal assist (75% patient effort) Stand-Sit, Level of Shelby: minimal assist (75% patient effort) [id number], Assistive Device: 2 wheeled walker (FWW) Safety Issues: stands too far from assistive device Impairments: strength decreased Gait Level of Shelby: stand by assist, verbal cues required Assistive Device: 2 wheeled walker (FWW) Distance (feet): 65 Gait Deviations: malachi decreased, step length decreased Safety Issues: balance decreased during turns, step length decreased, stands too far from a ssistive device Impairments: strength decreased, impaired balance Exercises MADELYN exercises: ankle pumps, quad sets, glut sets, hip abduction/adduction, heel slides Goals Reflects last filed data and may be from multiple contributors. PT Goal Review Date Most Recent Value STG Review Date 04/05/19 at 03/29/2019 1246 All Bed Mobility Goal Most Recent Value LTG Status new at 03/29/2019 1246 LTG Shelby Level modified independent at 03/29/2019 1246 LTG Assistive Device none at 03/29/2019 1246 All Transfers Goal Most Recent Value LTG Status new at 03/29/2019 1246 LTG [place] Level stand by assist at 03/29/2019 1246 LTG Assistive Device 2 wheeled walker (FWW) at 03/29/2019 1246 Stair Goal Most Recent Value LTG Status new at 03/29/2019 1246 LTG [place] Level contact guard assist at 03/29/2019 1246 LTG Assistive Device 2 rails at 03/29/2019 1246 LTG Number of Stairs 5 at 03/29/2019 1246 lan of Darby Duarte RN - 03/30/2019 7:10 AM PDT Problem: Postoperative Urinary Retention (Hip Arthroplasty) Goal: Effective Urinary Elimination Intervention: Monitor and Manage Urinary Retention Note: Trujillo placed on second shift supervisor for urinary retention. Will continue to assess and remove when ready lan of Viv Ley, OT - 03/30/2019 6:55 AM PDT [facility]OT[facility] Occupational Therapy Initial Evaluation Note Recommended discharge disposition: home with assist, half-way facility Post discharge occupational therapy recommendation: family involved/supportive, will benef it from structured setting, pt is motivated participant Anticipated Equipment Needs At Discharge OT: sock aide Barriers to community-based discharge ? None ? Cognitive deficits ? Physical deficits ? Level of assist for self-care ? Level of assist for mobility ? Equipment needs ? Lack of family support ? Home design ? Precautions ? Neurologic impairment ? Vision ? Pain ? Fal l risk ? Finances ? Other Planned Therapy Interventions: ADL retraining, bed mobility training, patient/family educat ion, transfer training Therapy Frequency: 2 times/wk for 10 days OT reassessment due STG Review Date: 04/09/19 Next visit information: 03/30; L MADELYN; transfers, bed mobility Summary: Pt in bed, alert and agreeable to OT session this date. VSS with BP 160/70. Pt co mpleted UE/LE dressing, toiletiing and grooming tasks. Pt bed mobility limited due to decrea sed core strength and maintaining hip precautions. Pt completed dressing activities with min A for safety and readjustments. Pt is progressing well and needed verbal cueing for reminde rs to maintain precautions. With family support, AE and cueing reminders, pt would do well g oing home with assistance. If this is not possible, a half-way facility would be good to help build confidence, strength, functional endurance and safety awareness while maintai sy hip precautions. Living Environment Lives With: alone Living Arrangements: house Home Accessibility: stairs (2 railings present) Number of Stairs to Enter Home: 5 Number of Stairs Within Home: 0 Living Environment Comment: BR: shower unit with threshold, shower chair, grab bars in show er and at toilet, raised toilet seat, accessible to walker, HHSH. Functional Level Prior Transferring: independent Ambulation: independent Toileting: independent Bathing: independent Dressing: independent Eating: independent Equipment Currently Used at Home: 4 wheeled walker (4WW), cane, straight, single point, gra b bars, long handled sponge, raised toilet, room service clerk Prior Functional Level Comment: Independent with all ADLs/IADLs no driving, uses walker and cane at home, walker outside the home Precautions Precautions/Limitations: left posterior hip precautions, falls Left Lower Extremity Weight-Bearing: weight-bearing as tolerated Cognitive Assessment Cognitive Comments: oriented x4 Impairments Found (describe specific impairments): gait, locomotion, and balance, functiona l endurance/activity tolerance Sensory Assessment Sensation Comments: Pt reports peripheral neuropathy in bilateral feet Vision Comments: wears glasses Grooming Assessment/Training Grooming Assess/Train, Comment: Pt able to do oral cares and washing face. Grooming, Level of Shelby: set up required Assistive Device: none Grooming Assess/Train, Position: standing Grooming Impairments: pain(fatigue) Upper Body Dressing Assessment/Training UB Dressing Assess/Train, Comment: Pt able to don bra and shirt while seated EOB. UB Dressing, Level of Shelby: set up required Assistive Device: none UB Dressing Assess/Train, Position: sitting UB Dressing Impairments: pain Lower Body Dressing Assessment/Training LB Dressing Assess/Train, Comment: Pt able to don pants and socks while seated EOB. LB Dressing, Level of Shelby: minimal assist (75% patient effort) Assistive Device: room service clerk, sock-aid LB Dressing Assess/Train, Position: sitting LB Dressing Impairments: pain, strength decreased Toileting Assessment/Training Toileting Assess/Train, Comment: Pt able to sit down for bowel movement. Toileting, Level of Shelby: stand by assist Assistive Device: grab bar Toileting Assess/Train, Position: sitting Toileting Impairments: pain Bed Mobility Additional Documentation: scooting/bridging, supine to/from sit, sidelying to/from sit Assistive Device: bed rails, HOB elevated Scoot/Bridge, Level of Shelby: stand by assist Supine to Sit, Level of Shelby: moderate assist (50% patient effort) Sidelying to Sit, Level of Shelby: stand by assist Safety Issues: decreased use of arms for pushing/pulling, impaired trunk control for bed mo bility Impairments: strength decreased, postural control impaired, pain Transfers Additional Documentation: bed to/from chair, sit to/from stand, toilet Bed-Chair, Level of Shelby: stand by assist [id number], Assistive Device: 2 wheeled walker (FWW), gait belt Sit-Stand, Level of Shelby: stand by assist Stand-Sit, Level of Shelby: stand by assist [id number], Assistive Device: 2 wheeled walker (FWW) Toilet, Level of Shelby: stand by assist Toilet, Assistive Device: grab bars, 2 wheeled walker (FWW) Maintain Weight Bearing Status: able to maintain weight bearing status Safety Issues: balance decreased during turns, weight-shifting ability decreased, stands to o far from assistive device Impairments: postural control impaired, impaired balance, pain ROM Comments: WFL Strength Comments: WFL Balance Sitting Balance: Static: good balance Sitting Balance: Dynamic: good balance Standing Balance: Static: good balance Standing Balance: Dynamic: good balance Goals Reflects last filed data and may be from multiple contributors. OT Goal Review Date Most Recent Value STG Review Date 04/09/19 at 03/30/2019654 LB Dressing Goal Most Recent Value STG Status new at 03/30/2019654 STG Shelby Level set up required at 03/30/2019654 STG Adaptive Equipment room service clerk, shoe horn, long handled, sock-aid at 03/30/2019654 STG Comments Pt will don underwear and pants using AE as necessary while maintaing hip pre cautions. at 03/30/2019654 Additional Goals #1 OT Most Recent Value STG Status new at 03/30/2019654 STG Pt will go from supine to sitting mod I using hand rails and HOB as needed while maint aing hip precautions, at 03/30/2019654 Documentation and evaluation conducted by Viv Oliveros, OT Student , under the direction o f the therapist cosigning below. I, the undersigning therapist, was present throughout this evaluation and treatment session, and directed the interventions and plan of care noted bel ow. I am directly responsible for all the treatments and interventions listed, I have revie wed this note, and I agree with the above plan of care and goals. lan of Pastor - Deedee Elizabeth RN - 03/30/2019 5:38 AM PDTChart check complete. Pt unable to void throughout t his shift. Per other order, inserted trujillo. Pt had 300ml out. Pt's BP had been soft overnigh t. IV fluids restarted and oral hydration encouraged. BP this morning was 124/57. Pt denies pain or need for pain medication. Pt ambulatory with 1 PA. No other concerns at this time. lan of Deedee Hernandez RN - 03/29/2019 11:14 PM PDT Problem: Adult Inpatient Plan of Care Goal: Plan of Care Review Outcome: Ongoing, progressing Problem: Fall Injury Risk Goal: Absence of Fall and Fall-Related Injury Outcome: Ongoing, progressing Problem: Infection (Hip Arthroplasty) Goal: Absence of Infection Signs/Symptoms Outcome: Ongoing, progressing Problem: Pain (Hip Arthroplasty) Goal: Acceptable Pain Control Outcome: Ongoing, progressing Problem: Postoperative Urinary Retention (Hip Arthroplasty) Goal: Effective Urinary Elimination Outcome: Ongoing, progressing Pt's daughter in room. Call light within reach. Bed in lowest position. Nonskid socks on w hen out of bed. Incision site monitored for signs of infection. Pain assessments per [facility] policy. lan of Darby Patel RN - 03/29/2019 5:51 PM PDTEnd of shift audit complete. Electronic ally signed by Darby Roman RN at 03/29/2019 5:51 PM PDTPlan of Darby Patel RN - 03/29/2019 3:50 PM PDT Problem: Pain (Hip Arthroplasty) Goal: Acceptable Pain Control Intervention: Prevent or Manage Pain Note: Currently denies pain. Will continue to assess and medicate prn lan of Yelitza Gray, PT - 03/29/2019 12:46 PM PDTFormatting of this note might be different fro m the original. Physical Therapy Initial Evaluation Note Recommended discharge disposition: home with assist Post discharge physical therapy recommendation: (TBD, pending progress) Equipment Recommendations: 2 wheeled walker (FWW) Barriers to community-based discharge ? None ? Cognitive deficits ? Physical deficits ? Level of assist for self-care ? Level of assist for mobility ? Equipment needs ? Lack of family support ? Home design ? Precautions ? Neurologic impairment ? Vision ? Pa in ? Fall risk ? Finances ? Other Planned Interventions: balance training, bed mobility training, gait training, home exercis e program, patient/family education, ROM (Range of Motion), stair training, strengthening, s tretching, transfer training Recommended Frequency: daily, 2 times/day for 7 days PT reassessment due 04/05/19 Next visit information: L MADELYN, bed mobility, transfer trng Summary: Pt presents reclined in bed upon PT arrival, agreeable to therapy. Denies reports of pain throughout sessoin. She demonstrates goof return of sensation B LEs as well as tangela r function to allow participation in initial eval. Pt given education on global hip precauti ons, WB status, mobility techniques/progression, expected healing time frame and use of ice to aid in pain control - pt supplied with handout for future reference. She was able to comp lete 1 set ther-ex L LE without issue. Main limitations include new hip precautions as pt ne eding frequent verbal instruction to maintain given need for new mobility techniques. She re quired up to modA for transfers, likely impacted most by precautions, otherwise, pt demonstr ating good independence on initial session. Vitals stable throughout evaluation and pt was a ble to initiate ambulation away from bedside - no apparent antalgic gait pattern and pt appe ars steady with walker support. Pt returned to bed upon completion of evaluation. (Vitals pr e- BP 173/70, O2 93% on RA, HR 110 bpm) Living Environment Lives With: alone(daughter will stay with pt for a few days) Living Arrangements: house Home Accessibility: stairs to enter home, ramps present at home Number of Stairs to Enter Home: 5(3 steps w/B rails, then 2 more steps w/o rails; can use r amp) Number of Stairs Within Home: 0 Living Environment Comment: BR: shower unit with threshold, shower chair, grab bars in show er and at toilet, raised toilet seat, accessible to walker, [facility]. Functional Level Prior Transferring: independent Ambulation: independent Toileting: independent Bathing: independent Dressing: independent Eating: independent Communication: understands/communicates without difficulty Equipment Currently Used at Home: 4 wheeled walker (4WW), cane, straight, single point Prior Functional Level Comment: Pt uses 4WW around her home, but no AD outside of home. She reports several falls in the past year- none with injury. Precautions Precautions/Limitations: left posterior hip precautions, left anterior hip precautions, fal ls Left Lower Extremity Weight-Bearing: weight-bearing as tolerated Cognitive Assessment Cognitive Comments: WFL Orientation: oriented x 4 Impairments Found (describe specific impairments): functional endurance/activity tolerance, gait, locomotion, and balance, joint integrity and mobility, posture, ROM Bed Mobility Additional Documentation: supine to/from sit Assistive Device: HOB elevated Supine to Sit, Level of Shelby: stand by assist, verbal cues required Sit to Supine, Level of [place]: stand by assist, verbal cues required Impairments: ROM decreased Transfers Additional Documentation: sit to/from stand Sit-Stand, Level of Shelby: moderate assist (50% patient effort), verbal cues require d Stand-Sit, Level of [place]: stand by assist, verbal cues required [id number], Assistive Device: 2 wheeled walker (FWW) Maintain Weight Bearing Status: able to maintain weight bearing status Impairments: ROM decreased Gait Level of Shelby: stand by assist Assistive Device: 2 wheeled walker (FWW) Distance (feet): 50 Additional Documentation: deviations, safety, impairments Gait Deviations: malachi decreased, double stance time increased, limb motion velocity decr eased, step length decreased, stride length decreased Impairments: ROM decreased Sensory Assessment Sensation Comments: B LE sensation in tact to light touch Balance Sitting Balance: Static: good balance Standing Balance: Static: good balance Exercises Additional Documentation: MADELYN exercises MADELYN exercises: left, ankle pumps, quad sets, glut sets, hip abduction/adduction, heel slide s, short arc quads Repetitions: 10 Goals Reflects last filed data and may be from multiple contributors. PT Goal Review Date Most Recent Value STG Review Date 04/05/19 at 03/29/2019 1246 All Bed Mobility Goal Most Recent Value LTG Status new at 03/29/2019 1246 LTG Shelby Level modified independent at 03/29/2019 1246 LTG Assistive Device none at 03/29/2019 1246 All Transfers Goal Most Recent Value LTG Status new at 03/29/2019 1246 LTG Shelby Level stand by assist at 03/29/2019 1246 LTG Assistive Device 2 wheeled walker (FWW) at 03/29/2019 1246 Stair Goal Most Recent Value LTG Status new at 03/29/2019 1246 LTG Shelby Level contact guard assist at 03/29/2019 1246 LTG Assistive Device 2 rails at 03/29/2019 1246 LTG Number of Stairs 5 at 03/29/2019 1246 p Note - Mark Montana MD - 03/29/2019 9:12 AM [facility] Service: Orthopedic Surgery Operative Note Date of Procedure: 03/29/2019 Surgeon: Mark Montana MD GAME [employer] PROTECTOR: Gus Orozco PA-C; Please note that assistance was necessary for the purpose o f patient positioning, prepping, draping, retraction, reduction, implant placement, and woun d closure. 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 Post-operative Diagnosis: same Procedure(s): left Posterior Total Hip Arthroplasty (non cemented/nxrhycj-tl-ssbbmrbwaeed MADELYN) after previous hip surgery IMPLANTS: Ladle Builder: [facility] Femoral component: Anato size 4 neutral Acetabular component: Trident II Tritanium 54mm Clusterhole6.5mm Cancellous Screw x1 (3.5mm hex head) Liner: X3 Polyethylene 36mm inner diameter Head ball: Biolex delta ceramic head ball 36mm -2.5mm SURGICAL DETAILS: Surgical Approach: Posterolateral Estimated blood loss: 200 cc Anesthesia type: Spinal anesthesia Periarticular injection: Standard (bupivicaine with epi/toradol/clonidine/morphine) Tranexamic Acid: 1 gram IV at incision and 1 gram IV after closure Post-arthroplasty intraoperative exam: Hip was stable in the resting postion, full extension and external rotation, and up to 1 20 degrees of flexion in a neutral rotation. Examination at 90 degrees of hip flexion and 80 degrees of internal rotation confirmed adequate stability. INDICATIONS: This patient presents with endstage degenerative joint disease of the hip. The patient has failed non-operative treatment and presents for total hip replacement. Risks, complications, and benefits of the procedure have been discussed preoperatively to include but not limited to infection, bleeding, dislocation, periprosthetic fracture, leg length discrepancy (eithe r real or perceived), damage to neurovascular structures, osteolysis, aseptic loosening, ins tability, continued pain, need for future surgery, anesthesia risks, DVT, SC, stroke, and de ath. The patient completed preoperative medical clearance and joint arthroplasty education. Description of Procedure: The patient was seen in the preoperative holding area and the operative site confirmed. T he risks, benefits, and altneratives to surgery were again confirmed with the patient. The patient was brought to the operating room, anesthesia was established and and placed on the operating room table in the lateral decubitus position on a regular table. Bony promine nces were padded. The patient was given prophylactic antibiotics within 30 minutes of skin i ncision. Surgical timeout was performed to confirm the operative side and planned procedur e. The involved lower extremity was prepped and draped in usual sterile fashion. An incision was made, centered over the posterolateral portion of the tip of the greater tr ochanter, a standard posterolateral approach was utilized to expose the hip joint. The short external rotators and capsule were tagged and reflected posteriorly. The hip was dislocat ed And then reduced and then the screws were removed without difficulty, the hip was disloc ated again and the femoral neck cut was made according to the pre-operative plan. The femor al head was removed. The acetabulum was then exposed with retractors and the labrum and cont ents of the cotyloid fossa were excised. The acetabulum was medialized and sequentially ream ed to bleeding cancellous bone. A cup was then impacted into place at the appropriate incl ination and version. Positional screws were placed if indicated. The final polyethylene line r was inserted, the femur was then prepared with a broach which was then used to trial. Stab ility was achieved and clinical exam was used to ensure appropriate length, offset, and posi tion of the components. The final femoral component was then placed and the head ball was im pacted, the hip was reduced and stability was achieved as reported above in surgical details . The hip was then irrigated and closed in layered fashion including repair of the capsule an d external rotators with #2 Ethibond suture through bone tunnels in the posterior femur. Rep air of the deep fascia was performed with a #1 running barbed suture and 2-0 vicryl was used for the subcutaneous layer, and a running subcuticular barbed suture for the epidermis laye r. The incision was sealed with surgical glue. A dressing was applied to the operative extre mity. The patient tolerated the procedure well and was taken to the recovery room in good co ndition. No apparent complications were noted at the conclusion of the case. Sponge, instrum ent, and needle counts were correct. Condition: Stable ADDENDUM FOR COMPLEXITY: No Addendum for Complexity Mark Montana MD 03/29/2019 nterval H&P Note (unlinked) - Mark Montana MD - 03/29/2019 7:19 AM PDTSURGICAL INTERIM HISTORY & PHYS ICAL UPDATE Pt. Name/Age/: Scarlet Murguia 83 y.o. 1935 Date of admission: 03/29/2019 The current H&P was reviewed. The patient was reexamined. Re-evaluation of the patient co nfirms the necessity for the scheduled procedure. No change has occurred in the patient s condition since the H&P was completed less than 30 days ago. VERIFICATION OF CONSENT (PARQ) The patient was counseled regarding the procedure, its indications, risks, potential compli cations and alternatives. Any questions were answered. Consent was obtained. Electronically signed by: Mark Montana MD, 03/29/2019 7:19 [facility]ron[facility] signed by Mark Montana MD at 019 7:19 AM PDTdocumented in this encounter Plan of Treatment +--------+ + + + + | Date | Type | Specialty | Care Team | Description | +--------+ + + + + | 02/21/ | Appointment | Pain Medicine | Sam Samuels DO | | | 2019 | | | [address] [facility] | | | | | | [place] [address] | | | | | | [phone] | | | | | | | | +--------+ + + + + | 05/17/ | Office | Cardiology | Jeniffer Haines | | | 2019 | Visit | | [address] | | | | | | [address] | | | | | | [place] [address] | | | | | | [phone] | | | | | | | [...] | | POC | performed at [facility];[address] | | LABORATORY | | | | [address];[place], [place] | | | | | | [address] | | | | + + + + + + + + | Specimen | + + | | + + + + + + + | Performing | Address | City/State/Zipcode | Phone Number | | Organization | | | | + + + + + | [facility] | [address] | [place] [address] | [phone] | + + + + + POC Glucose (03/31/2019 7:23 AM PDT) + + + + + + | Component | Value | Ref Range | Performed | Pathologist | | | | | At | Signature | + + + + + + | Glucose, | 122 (H)Comment: Testing | 65 - 99 mg/dL | [facility] | | | POC | performed at [facility];[address] | | LABORATORY | | | | [address];[place], [place] | | | | | | [address] | | | | + + + + + + + + | Specimen | + + | | + + + + + + + | Performing | Address | City/State/Zipcode | Phone Number | | Organization | | | | + + + + + | [facility] | [address] | [place] [address] | [phone] | + + + + + POC [...] | | POC | performed at [facility];[address] | | LABORATORY | | | | [address];[place], [place] | | | | | | [address] | | | | + + + + + + + + | Specimen | + + | | + + + + + + + | Performing | Address | City/State/Zipcode | Phone Number | | Organization | | | | + + + + + | [facility] | [address] | [place] [address] | [phone] | + + + + + Hemoglobin and Hematocrit (03/30/2019 5:16 AM PDT) + + + + + + | Component | Value | Ref Range | Performed | Pathologist | | | | | At | Signature | + + + + + + | Hemoglobin | 9.2 (L) | 11.3 - 15.5 | [facility] | | | | | g/dL | LABORATORY | | + + + + + + | Hematocrit | 27.3 (L)Comment: Testing | 34.0 - 46.0 % | [facility] | | | | performed at [facility];[address] | | LABORATORY | | | | [address];[place], [place] | | | | | | [address] | | | | + + + + + + + + | Specimen | + + | Blood | + + + + + + + | Performing | Address | City/State/Zipcode | Phone Number | | Organization | | | | + + + + + | [facility] | [address] | [place] [address] | [phone] | + + + + + POC [...] | | POC | performed at [facility];[address] | | LABORATORY | | | | [address];[place], [place] | | | | | | [address] | | | | + + + + + + + + | Specimen | + + | | + + + + + + + | Performing | Address | City/State/Zipcode | Phone Number | | Organization | | | | + + + + + | [facility] | [address] | [place] [address] | [phone] | + + + + + POC Glucose (03/29/2019 8:59 PM PDT) + + + + + + | Component | Value | Ref Range | Performed | Pathologist | | | | | At | Signature | + + + + + + | Glucose, | 172 (H)Comment: Testing | 65 - 99 mg/dL | [facility] | | | POC | performed at [facility];[address] | | LABORATORY | | | | [address];[place], [place] | | | | | | [address] | | | | + + + + + + + + | Specimen | + + | | + + + + + + + | Performing | Address | City/State/Zipcode | Phone Number | | Organization | | | | + + + + + | [facility] | [address] | [place] [address] | [phone] | + + + + + XR [...] | | POC | performed at [facility];[address] | | LABORATORY | | | | [address];[place], [place] | | | | | | [address] | | | | + + + + + + + + | Specimen | + + | | + + + + + + + | Performing | Address | City/State/Zipcode | Phone Number | | Organization | | | | + + + + + | [facility] | [address] | [place] [address] | [phone] | + + + + + Type [...] + + + | [facility] | [id number] | | [facility] | | | | | | LABORATORY | | + + + + + + | [facility] | Testing performed at | | [facility] | | | | [facility];[address] | | LABORATORY | | | | [address] [address] | | | | + + + + + + + + | Specimen | + + | Blood | + + + + + + + | Performing | Address | City/State/Zipcode | Phone Number | | Organization | | | | + + + + + | [facility] | [address] | [place] [address] | [phone] | + + + + + POC Glucose (03/29/2019 6:42 AM PDT) + + + + + + | Component | Value | Ref Range | Performed | Pathologist | | | | | At | Signature | + + + + + + | Glucose, | 96Comment: Testing | 65 - 99 mg/dL | [facility] | | | POC | performed at [facility];[address] | | LABORATORY | | | | [address];[place] | | | | | | [address] | | | | + + + + + + + + | Specimen | + + | | + + + + + + + | Performing | Address | City/State/Zipcode | Phone Number | | Organization | | | | + + + + + | [facility] | [address] | [place] [address] | [phone] | + + + + + documented [...] 19 7:01 | | | | | [place] 03/29/19 [...] | | | | | | | Tu03/29/19 at 1600, For 2 | | | [...] HOURS PRN, | | | Itching, Starting 03/29/19 at | | | 1417, Oral route [...] 9:25 | | | | | on e 03/29/19 at 1230, | | AM PDT [...] | | | | | pre-op, Starting Thu03/29/19 at | | AM PDT | | [...]
--- OUTSIDE RECORDS SUMMARY | ~2020-02-17 | XMS | Encounter Summary ---
Demographics + + + | Address | [address] | | | [place] [address] | + + + | Home Phone | | + + + | Preferred Language | Unknown | + + + | Marital Status | | + + + | Mormonism Affiliation | Unknown | + + + | Race | White | + + + | Ethnic Group | Not or | + + + Author + + + | Author | [facility] | + + + | Organization | [facility] | + + + | [...] Team Providers + +------+ + | Care Dean Of Graduate Studies Name | Role | Phone | + [...] [address] | | | | | | [place], [place] | | | | | | [address] | | | +--------+ + + + [...]
--- OUTSIDE RECORDS SUMMARY | ~2020-02-17 | XMS | Encounter Summary ---
Demographics + + + | Address | [address] | | | [place] [address] | + + + | Home Phone [...] Team Providers + +------+ + | Care Pellet Preparation Operator Name | Role | Phone | + +------+ + | Susan Leos | PCP | | | [facility]AD[facility] | | | + +------+ + Encounter Details +--------+ + + + + | Date | Type | Department | Care Team | Description | +--------+ + + + + | 02/24/ | [facility] | [facility] | Malcom Mojica, | Peripheral | | 2016 | Encounter | [facility] | [address] | sueropathy | | | | [address] | [address], | | | | | [place] | [place] [address] | | | | | [address] | [phone] | | | | | [phone] | | | +--------+ + + + [...] | | | | 0 | | ([facility]) | | | | | | | MISC | | | | | | + + + +---------+--------+ + | Cameron-3 Fatty | Take 1 tablet by | [...] | | 2019 | | | [address] | | | | | | [place] [address] | | | | | | [phone] | | | | | | | | +--------+ + + + + | 05/17/ | Office | Cardiology | Jeniffer Haines | | | 2019 | Visit | | [address] | | | | | | [address] | | | | | | [place] [address] | | | | | | [phone] | | | | | | | [...] | samples are screened | uIU/mL | [facility] | | | | using a [...] + | [facility] | [address] | [place] | [phone] | | [facility] | | [address] | | | - LABORATORY | | | | + + + + + Hepatitis A, B, C PanelBarrington (02/25/2016 3:39 PM PDT) + + + [...] [place] | | | | | | [address] | | | | + + + [...] [address] | [place] [address] | [phone] | + + + + + Protein [...] [facility] | | Vincent Sanchez MD02-27-16 | [facility] | |02-27-16 | [facility] | | | - LABORATORY | + + + + + + + + | Performing | Address | City/State/Zipcode | Phone Number | | Organization | | | | + + + + + | [facility] [address] | [address] | [place] | [phone] | | [facility] | | [address] | | | - LABORATORY | | [...] [place] | | | | | | [address] | | | | + + + [...] [address] | [place] [address] | [phone] | + + + + + Methylmalonic [...] [place] | | | | | | [address] | | | | + + + [...] [address] | [place] [address] | [phone] | + + + + + Vitamin [...] + + | [facility] | [address] | [place] | [phone] | | [facility] | | [address] | | | - LABORATORY | | | | + + + + + documented in this encounter Visit Diagnoses + + | Diagnosis | + + | Peripheral polyneuropathy Unspecified hereditary and idiopathic peripheral neuropathy | + + documented in this encounter"
--- OUTSIDE RECORDS SUMMARY | ~2020-02-17 | XMS | Encounter Summary ---
Demographics + + + | Address | [address] | | | [place] [address] | + + + | Home Phone | | + + + | Preferred Language | Unknown | + + + | Marital Status | | + + + | Holiness Affiliation | Unknown | + + + [...] Providers + +------+ + | Care Senior Product Integrity Engineer Name | Role | Phone | + +------+ + PCP | Unavailable | + +------+ + Encounter Details +--------+ + + + + | Date | Type | Department | Care Team | Description | +--------+ + + + + | 01/13/ | Lab | Dermatopathology | Lefty Nieves V, | | | 2019 | Requisition | [address] | [place] | | | | | Mailcode: [id number] | Clinic Dermatology | | | | | [facility] | [address] [facility] | | | | | and Healing, | [place] | | | | | [facility] | [id number] | | | | | Floor [place], [place] | | | | | | [address] | | | | | | [phone] | | | +--------+ + + + [...] | OLOGY | | | | Case: [id number] | | | | | | | [...] [facility] | Mailcode [id number] [address] | [place] [address] | | | DERMATOPATHOLOGY | [address] | | | + + + + + | [facility] | Mailcode CH[address]D [address] | [place] [address] | | | DERMATOPATHOLOGY | [address] | | | + + + + + documented in this encounter Visit Diagnoses + + | Diagnosis | + + | Neoplasm of uncertain behavior of skin | + + documented in this encounter
--- OUTSIDE RECORDS SUMMARY | ~2020-02-17 | XMS | Encounter Summary ---
Demographics + + + | Address | [address] | | | [place] [address] | + + + | Home Phone [...] Team Providers + +------+ + | Care Trust And Estates Attorney Name | Role | Phone | + [...] | | | | | [address] | [address] [place] | | | | | [place] | [place] [address] | | | | | [address] | [phone] | | | | | [phone] | | | +--------+ + + + [...] 1530 by | | eral | Antecubital; okvf-bzr-bkakmd | Patsy Dixon RN | Patsy Dixon [...] EVALUATION Scarlet Murguia 80 y.o. female 1935 [id number] BP elevated during case and post-op. Home [...] signed by Enrique Llanos MD 09/26/2016 16:20 [facility] nesthesia Prep rocedure Evaluation - Enrique Llanos MD - 09/26/2016 12:25 PM PDT ANESTHESIA PREANESTHESIA EVALUATION Scarlet Murguia 80 y.o. female 1935 [id number] Procedure(s): ERCP (N/A Mouth) Medical history, anesthesia, [...] . Electronically Signed by: Enrique Llanos MD [facility] date/time: 09/26/2016 12:25 documented in t his encounter Plan of Treatment +--------+ + + + + | Date | Type | Specialty | Care Team | Description | +--------+ + + + + | 02/21/ | Appointment | Pain Medicine | Sam Samuels, | | | 2019 | | | [address] [facility] | | | | | | [place] [address] | | | | | | [phone] | | | | | | | | +--------+ + + + + | 05/17/ | Office | Cardiology | Jeniffer Haines | | | 2019 | Visit | | [address] | | | | | | [address] | | | | | | [place] [address] | | | | | | [phone] | | | | | | | [...]
--- OUTSIDE RECORDS SUMMARY | ~2020-02-17 | XMS | Encounter Summary ---
Demographics + + + | Address | [address] | | | [place] [address] | + + + | Home Phone [...] + + + | Author | [facility] | | | and [place] | + + + | Organization | [facility] | | | [...] Team Providers + +------+ + | Care Airworthiness Inspector Name | Role | Phone | [...] | | | | [address] | [place] [address] | | | | | [address] | [phone] | | | | | [place], [place] | | | | | | [address] | | | | | | [phone] | | | +--------+ + + + [...] Miscellaneous Notes Telephone Encounter - Desiree Martinez, Curb Machine Operator - 12/09/2019 2:34 PM PDTCalled a nereyda [...] [address] | | | | | | [place] [address] | | | | | | [phone] | | | | | | | | +--------+ + + + + | 05/17/ | Office | Cardiology | Zaki Jeniffer | | 2019 | Visit | | [address] | | | | | | [address] | | | | | | [place] [address] | | | | | | [phone] | | | | | | | | +--------+ + + + + documented as of this encounter Visit Diagnoses Not on filedocumented in this encounter"
--- OUTSIDE RECORDS SUMMARY | ~2020-02-17 | XMS | Encounter Summary ---
Demographics + + + | Address | [address] | | | [place] [address] | + + + | Home Phone [...] | Author | [facility] | | | and [place] | + + + | Organization | [facility] | | [...] Providers + +------+ + | Care Asbestos Cement Sheet Supervisor Name | Role | Phone | [...] | | | [place], [place] | [place] [address] | Spondylolisthesis at | | | | [address] | [phone] | L4-L5 level; | | | | [phone] | | Bilateral lumbar | | | [...] [address] | | | | | | [place] [address] | | | | | | [phone] | | | | | | | | +--------+ + + + + | 05/17/ | Office | Cardiology | Zaki Jeniffer | | | 2019 | Visit | | [address] | | | | | | [address] | | | | | | [place] [address] | | | | | | [phone] | | | | | | | [...]
--- OUTSIDE RECORDS SUMMARY | ~2020-02-17 | XMS | Encounter Summary ---
Demographics + + + | Address | [address] | | | [place] [address] | + + + | Home Phone [...] Team Providers + +------+ + | Care Mixologist Name | Role | Phone | + [...] | | | Radiology | Essential | [facility] | | | | | hypertension | PORTABLE TRACKMAN [address] | [address] | | | | | Systolic | TABITHAS | TY BLOOM | | | | | murmur | VJ F | [place], [place] | | | | | Syncope and | [place], [place] | [address] | | | | | collapse | [address] | Phone: | | | | | Dyspnea on | Phone: | [phone] | | | | | exertion | [phone] | Fax: | | | | | Procedures | Fax: | [phone] | | | | | ECHO | [phone] | | | | | | Complete [...] + + | 10/12/ | Office | [facility] | Jeniffer Haines | Essential | | 2020 | Visit | CARDIOLOGY [place] | [address] | hypertension | | | | [address] | [address] [place] [address] | (Primary Dx); Mixed | | | | [address] | [place] [address] | hyperlipidemia; | | | | [place], [place] | [phone] | Systolic murmur; | | | | [address] | | Syncope and | | | | [phone] | | collapse; | | | | [...] you an Echo to be done at [facility] in the next 2-3 weeks, and call [...] stroke or TIA. She also denies any [facility] room visits or hospitalizations since she [...] mg by mouth Twice daily as needed. HJ-Wkdczwgjcb-Fvmcchtecadwdk (FOLBIC PO) Take by mouth. ferrous sulfate [...] ( MACULAR HEALTH) MISC Take by mouth. [place]-3 Fatty Acids (OMEGA-3 2100 PO) Take by mouth. omeprazole (PRILOSEC) 20 mg capsule Take 20 mg by mouth every morning (before breakfast ). ondansetron (ZOFRAN ODT) 4 mg disintegrating tablet Take 4 mg by mouth every 8 hours as needed. POTASSIUM CITRATE PO Take 99 mg by mouth Daily. Psyllium (METAMUCIL PO) Take by mouth Daily. UNABLE TO FIND [facility] venlafaxine (EFFEXOR XR) 75 mg 24 hr [...] ST-T wa ve abnormalities. Rate 65 bpm, WV 172 ms, QRS 84 ms, QTC 428 ms, tracing personally reviewe d by mt LABS Labs: 05/11/2019 CMP: Sodium 133, potassium [...] for continuity of care purp bari CAGLE [facility] documented in t his encounter Plan of Treatment +--------+ + + + + | Date | Type | Specialty | Care Team | Description | +--------+ + + + + | 02/21/ | Appointment | Pain Medicine | Sam Samuels DO | | | 2019 | | | [address] | | | | | | [place] [address] | | | | | | [phone] | | | | | | | | +--------+ + + + + | 05/17/ | Office | Cardiology | Jeniffer Haines | | | 2019 | Visit | | [address] | | | | | | [address] | | | | | | [place] [address] | | | | | | [phone] | | | | | | | [...]
--- OUTSIDE RECORDS SUMMARY | ~2020-02-17 | XMS | Encounter Summary ---
Demographics + + + | Address | [address] | | | [place] [address] | + + + | Home Phone [...] Author | [facility] | | | and [place] | + + + | Organization | [facility] | | [...] Team Providers + +------+ + | Care Data Sme Name | Role | Phone | + +------+ + | Susan Leos | PCP | | | PA-C | | | + +------+ + Reason for Visit +--------+--------+ + | Reason | Onset | Comments | | | Date | | +--------+--------+ + | Other | 11/15/ | Screened for appt | | | 2020 | | +--------+--------+ + Encounter Details +--------+ + + + + | Date | Type | Department | Care Team | Description | +--------+ + + + + | 11/15/ | Telephone | [facility] | Jalyn Castañeda, | Other (Screened for | | 2019 | | CARDIOLOGY [place] | HABILITATION WORKER | appjeronimo) | | | | [address] | | | | | | [place] | | | | | | [address] | | | | | | [phone] | | | +--------+ + + + [...] this encounter Miscellaneous Notes Telephone Encounter - Jalyn Castañeda CMA - 11/16/2019 3:14 PM PDTProactive screening fo r upcoming office visit to help ensure the clinic environment remains a safe place to receiv e care. 1. Patient reports the following symptoms and/or exposure on the epidemic risk screen: ? Fever greater than 100.4 F?: no ? New onset (within the last 14 days) cough?: no ? New onset (within the last 14 days) shortness of breath?: no ? New onset (within the last 14 days) loss of taste or smell?: no ? Close contact with someone who has been diagnosed with COVID-19?: no The patient reported no symptoms or exposure and proceeded with proactive screening process . 2. Have you or someone you are in close contact with been tested for COVID-19?: No. Okay to see patient in clinic per scheduling guidelines, proceeded to question #3 3. Does the patient have MyChart Access?: No. Helped get the patient MyChart access and encouraged use of the E-Check In feature. 4. Is the patient allowed a visitor per policy?: No. Please be aware that you will be [...] [address] | | | | | | [place] [address] | | | | | | [phone] | | | | | | | | +--------+ + + + + | 05/17/ | Office | Cardiology | Jeniffer Haines | | | 2019 | Visit | | [address] | | | | | | [address] | | | | | | [place] [address] | | | | | | [phone] | | | | | | | | +--------+ + + + + documented as of this encounter Visit Diagnoses Not on filedocumented in this encounter"
--- OUTSIDE RECORDS SUMMARY | ~2020-02-17 | XMS | Encounter Summary ---
Demographics + + + | Address | [address] | | | [place] [address] | + + + | Home Phone [...] Team Providers + +------+ + | Care Allied Health Teacher Name | Role | Phone | [...] + + | 09/05/ | Telephone | [facility] | Gregor Mccord MD | Referral | | 2017 | | GASTROENTEROLOGY | [address], [place] | | | | | [address] [place] | [address] [place], [place] | | | | | [address] [place], [place] | [address] | | | | | [address] | | | | | | [phone] | | | +--------+ + + + [...] her know if it is possible at [phone]. If it is not, please route back to the [facility] office along with reasoning and we will call her back. Thank you. documented in this encounter Plan of Treatment +--------+ + + + + | Date | Type | Specialty | Care Team | Description | +--------+ + + + + | 02/21/ | Appointment | Pain Medicine | Sam Samuels DO | | 2019 | | | [address] [facility] | | | | | | [place] [address] | | | | | | [phone] | | | | | | | | +--------+ + + + + | 05/17/ | Office | Cardiology | Jeniffer Haines | | 2019 | Visit | | [address] | | | | | | [address] | | | | | | [place] [address] | | | | | | [phone] | | | | | | | | +--------+ + + + + documented as of this encounter Visit Diagnoses Not on filedocumented in this encounter"
--- OUTSIDE RECORDS SUMMARY | ~2020-02-17 | XMS | Encounter Summary ---
Demographics + + + | Address | [address] | | | [place] [address] | + + + | Home Phone [...] Team Providers + +------+ + | Care Underwriter Solicitation Director Name | Role | Phone | [...] [address] | | | | | [address] [place], [place] | [address] | | | | | [address] | [place] [address] | | | | | [phone] | [phone] | | | | | | | [...] [address] | | | | | | [place] [address] | | | | | | [phone] | | | | | | | | +--------+ + + + + | 05/17/ | Office | Cardiology | Jeniffer Haines | | 2019 | Visit | | [address] | | | | | | [address] | | | | | | [place] [address] | | | | | | [phone] | | | | | | | | +--------+ + + + + documented as of this encounter Visit Diagnoses Not on filedocumented in this encounter"
--- OUTSIDE RECORDS SUMMARY | ~2020-02-17 | XMS | Encounter Summary ---
Demographics + + + | Address | [address] | | | [place] [address] | + + + | Home Phone [...] + + + | Author | [facility] | | | and [place] | + + + | Organization | [facility] | | | [...] Providers + +------+ + | Care Certified Pathology Assistant Name | Role | Phone | [...] | | | | | | [place] | | | | | | | [...] | | | | | [address] | [place] | | | | | [place], [place] | [address] | | | | | [address] | | | | | | [phone] | | | +--------+ + + + + Anesthesia Record + + + + + | Procedure Name | Responsible | Anesthesia Start | Anesthesia Stop Time | | | Anesthesiologist | Time | | + + + + + | ERCP w/ stent pull | Harinder Mcgowan MD | 10/14/16 1234 | 10/14/16 130 | | (N/A Mouth) | | | [...] [address] | | eral | Forearm; zjup-wxy-qdzwpm catheter | Patsy Dixon RN | Delicia [...] EVALUATION Scarlet Murguia 80 y.o. female 1935 [id number] Procedure(s) ERCP w/ stent pull (N/A Mouth) [...] signed by Harinder Mcgowan MD 10/14/2016 13:07 [facility] nesthesia Preprocedure Evaluation - Harinedr Mcgowan MD - 10/14/2016 12:24 PM PDTFormatting of this note might be di fferent from the original. ANESTHESIA PREANESTHESIA EVALUATION Scarlet Murguia 80 y.o. female 1935 [id number] Procedure(s): ERCP w/ stent pull (N/A Mouth) [...] 02/21/ | Appointment | Pain Medicine | SulemanabbeyjasonSamDO | | | 2019 | | | [address] | | | | | | [place] [address] | | | | | | [phone] | | | | | | | | +--------+ + + + + | 05/17/ | Office | Cardiology | Jeniffer Haines | | | 2019 | Visit | | [address] | | | | | | [address] | | | | | | [place] [address] | | | | | | [phone] | | | | | | | [...]
--- OUTSIDE RECORDS SUMMARY | ~2020-02-17 | XMS | Encounter Summary ---
Demographics + + + | Address | [address] | | | [place] [address] | + + + | Home Phone [...] + + + | Author | [facility] | | | and [place] | + + + | Organization | [facility] | | [...] Team Providers + +------+ + | Care Therapeutic Support Staff Name | Role | Phone | + [...] | | | | | | LA ERCP DX | | | | | | | COLLECTION | | | | | | | SPECIMEN | | | | | | | BRUSHING/WAS | | | | | | | ORLADNO ERCP | | | +--------+--------+ + + + + Encounter Details +--------+---------+ + + + | Date | Type | Department | Care Team | Description | +--------+---------+ + + + | 09/26/ | Surgery | [facility] | Gregor Mccord MD | ERCP | | 2017 | | MED CTR MP INTRA OP | [address], [place] | | | | | [address] | [address] [place] [address] | | | | | [place] | [address] | | | | | [address] | | | | | | [phone] | | | +--------+---------+ + + + [...] or severe belly or abdominal pain Fever [id number] (37.7C) or chills Upset stomach (nausea) and vomiting Black or tarry stools Date Last Reviewed: 11/25/201419995152-4802 [employer]. [address] [place] [address]. All righ ts reserved. 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 Avoiding fatty foods such as [place] Phelps, hamburgers, carrera, ham and pork products, wi [...] the gurney. She cheerfully we lcomed a manager online visit. She said that her family gathered around her and offered prayer la night. She is a member of [employer] and asked that the jainism be no tified of her hospitalization. She has a strong virginie and belief in prayer. Spiritual Intervention: Offered pastoral presence and encouragement. Shared prayer. Left a message for the computer networking instructor at [employer] Spiritual Outcomes: Scarlet expressed her appreciation [...] CENTER | | | | | | [place] [address] | | | | | | [phone] | | | | | | | | +--------+ + + + + | 05/17/ | Office | Cardiology | Jeniffer Haines | | | 2020 | Visit | | [address] | | | | | | [address] | | | | | | [place] [address] | | | | | | [phone] | | | | | | | [...] | | | | VONDA SHEPPARD MD ([id number]) | | | | | | on [...] + + | Performing | Address | City/State/[facility] At [facility] Vegascode | Phone Number | | Organization | [...] 09/26/2016 | [place] | | 12:24 PMMRN: [id number] #: [id number] of : | | | 1935dmit Type: AmbulatoryAge: 80Room: [facility] 01Gender: FemaleNote | | | Status: FinalizedAttending MD: Gregor Mccord , [facility]rocedure: | | | ERCPIndications: Filling defect on intraoperative | | | cholangiogramProviders: Gregor Mccord MD, Jalyn Darden | | | ROBI Ring, Pablo Rothman [facility], | | | Laurie Hammond, [employer], Paty Beverly | | | Michelle, [employer], Enrique Llanos MD (Anesthesia | | | [...] | | | the anesthesiologist and the alignment technician in the endoscopy suite. | | [...] the procedure | | | well.Findings: A fire sprinkler apparatus inspector film of the abdomen was obtained. | [...] | | 12:39:22 PMScope Out: 1:06:30 PM [facility] | | | [place], [address] [place] [address] | | | - Continue present medications. [...] |Scope Out: 1:06:30 PM | | | [facility], [address] [place] [address] | | | [phone] | | + + -+ + +---------+ [...] | | | | VONDA SHEPPARD MD ([id number]) | | | | | | on [...]
--- OUTSIDE RECORDS SUMMARY | ~2020-02-17 | XMS | Encounter Summary ---
Demographics + + + | Address | [address] | | | [place] [address] | + + + | Home Phone [...] Author | [facility] | | | and [place] | + + + | Organization | [facility] | | | and [...] Team Providers + +------+ + | Care Entertainment Director Name | Role | Phone | [...] + + | 01/01/ | Telephone | [facility] | Sam Samuels DO | Appointment | | 2019 | | [facility] | [address] | | | | | [address] | [place] [address] | | | | | [address] [place], | [phone] | | | | | [place] [address] | | | | | | [phone] | | | +--------+ + + + [...] Miscellaneous Notes Telephone Encounter - Suha Casillas, Naval Gunfire Spotter - 01/02/2020 3:36 PM [facility] 4 week f/u [...] [address] | | | | | | [place] [address] | | | | | | [phone] | | | | | | | | +--------+ + + + + | 05/17/ | Office | Cardiology | Jeniffer Haines | | 2019 | Visit | | [address] | | | | | | [address] | | | | | | [place] [address] | | | | | | [phone] | | | | | | | | +--------+ + + + + documented as of this encounter Visit Diagnoses Not on filedocumented in this encounter"
--- OUTSIDE RECORDS SUMMARY | ~2020-02-17 | XMS | Encounter Summary ---
Demographics + + + | Address | [address] | | | [place] [address] | + + + | Home Phone [...] | Author | [facility] | | | and [place] | + + + | Organization | [facility] | | | [...] Team Providers + +------+ + | Care Progressive Care Unit Registered Nurse Name | Role | Phone [...] Other | | 2020 | | [facility] | [address] [facility] | | | | | [address] | [place] [address] | | | | | [address] | [phone] | | | | | [place], [place] | | | | | | [address] | | | | | | [phone] | | | +--------+ + + + [...] Miscellaneous Notes Telephone Encounter - Deysi Villa, Interior Specialist - 12/23/2019 11:14 AM MONICACa lled and [...] [address] | | | | | | [place] [address] | | | | | | [phone] | | | | | | | | +--------+ + + + + | 05/17/ | Office | Cardiology | Jeniffer Haines | | 2019 | Visit | | [address] | | | | | | [address] | | | | | | [place] [address] | | | | | | [phone] | | | | | | | | +--------+ + + + + documented as of this encounter Visit Diagnoses Not on filedocumented in this encounter"
--- OUTSIDE RECORDS SUMMARY | ~2020-02-17 | XMS | Encounter Summary ---
Demographics + + + | Address | [address] | | | [place] [address] | + + + | Home Phone | | + + + | Preferred Language | Unknown | + + + | Marital Status | | + + + | Congregational Affiliation | 1077 | + + + | Race | White | + + + | Ethnic Group | Not or | + + + Author + + + | Author | [facility] | | | and [place] | + + + | Organization | [facility] | | [...] Team Providers + +------+ + | Care Him Assistant Name | Role | Phone | [...] | | | | [address] | [place] [address] | | | | | [address] | [phone] | | | | | [place], [place] | | | | | | [address] | | | | | | [phone] | | | +--------+ + + + [...] Miscellaneous Notes Telephone Encounter - Desiree Martinez Health Administrator - 12/07/2019 12:23 PM PDTPatient has been [...] [address] | | | | | | [place] [address] | | | | | | [phone] | | | | | | | | +--------+ + + + + | 05/17/ | Office | Cardiology | Jeniffer Haines | | 2019 | Visit | | [address] | | | | | | [address] | | | | | | [place] [address] | | | | | | [phone] | | | | | | | | +--------+ + + + + documented as of this encounter Visit Diagnoses Not on filedocumented in this encounter"
--- OUTSIDE RECORDS SUMMARY | ~2020-02-17 | XMS | Encounter Summary ---
Demographics + + + | Address | [address] | | | [place] [address] | + + + | Home Phone [...] Team Providers + +------+ + | Care Cycle Manager Name | Role | Phone | [...] | Spinal | Mark Foley MD | [place] | | | Required | | stenosis, | [address] | Pain | | | | | lumbar | [address] | Management | | | | | region, with | [place], | [address] | | | | | neurogenic | [place] [address] | [facility], | | | | | claudication | Phone: | [place] | | | | | | [phone] | [address] | | | | | | Fax: | Phone: | | | | | | [phone] | [phone] | | | | | | | Fax: | | | | | | | [phone] | + + + + + + + Encounter Details +--------+---------+ + + + | Date | Type | Department | Care Team | Description | +--------+---------+ + + + | 01/30/ | Office | [facility] | Sam Samuels DO | Spondylolisthesis at | | 2020 | Visit | [facility] | [address] | L4-L5 level | | | | MEDICINE PAIN [address] | [place] [address] | (Primary Dx); Lumbar | | | | [address] [place], | [phone] | radiculopathy; | | | | [place] [address] | | Spinal stenosis of | | | | [phone] | | lumbar region with | | | | | | neurogenic | | | | | | claudication; DDD | | | | | | (degenerative disc | | | | | | disease), lumbar; | | | | | | Sacroiliitis, not | | | | | | elsewhere classified | | | | | | ([facility]) | +--------+---------+ + + + Social History [...] Sam Samuels, - 01/31/2020 11:30 AM PDT [facility]: Interventional Pain Management 01/31/2020November Jessa [...] disease), lumbar 02/04/2016 Diabetes type 2, controlled ([facility]) DVT (deep venous thrombosis) ([facility]) 03/2019 post hip replacement Full dentures upper & lower GERD (gastroesophageal reflux disease) Heart murmur HTN (hypertension) Hyperlipidemia Hypothyroidism Macular degeneration Other intervertebral disc displacement, lumbar region Peripheral neuropathy Pneumonia 2005 Pulmonary emboli ([facility]) 03/2019 after hip replacement Skin cancer Spondylolisthesis at L4-L5 level 02/04/2016 Stress incontinence in female Type 2 diabetes mellitus ([facility]) Past Surgical History: Procedure Laterality Date CHOLECYSTECTOMY COLONOSCOPY 2003; 2009; 2011 polyp's removed CYSTOCELE REPAIR 1972 EPIDURAL STEROID INJECTION Bilateral 12/08/2019 TFE Bilateral L4 EPIDURAL SYERIOD INJECTION Bilateral 12/22/2019 BILAT TFE L3 ERCP N/A 09/26/2016 Procedure: ERCP; Surgeon: Gregor Mccord MD; Location: [facility] MEDICAL PROCEDURE UNIT ERCP N/A 10/14/2016 Procedure: ERCP w/ stent pull; Surgeon: Gregor Mccord MD; Location: [facility] MEDICAL PROCEDU RE UNIT HARDWARE REMOVAL Left 03/29/2019 Procedure: REMOVE HARDWARE LOWER EXTREMITY-HIP; Surgeon: Mark Montana MD; Location : [facility] MAIN OR PARTIAL HYSTERECTOMY 1971 RECTOCELE REPAIR 1991 TAILBONE 1973 broken, partial removal TONSILLECTOMY 1938 TOTAL HIP ARTHROPLASTY Left 03/29/2019 Procedure: Posterior Total Hip Arthroplasty; Surgeon: Mark Montana MD; Location: [facility] MAIN OR Allergies Allergen Reactions [...] Twice daily as needed. 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 The possibility of "s ound alike" customer order clerk errors, and additions, or deletions may occur. [...] | | | | | | [place] [address] | | | | | | [phone] | | | | | | | | +--------+ + + + + | 05/17/ | Office | Cardiology | Jeniffer Haines | | | 2019 | Visit | | [address] | | | | | | [address] | | | | | | [place] [address] | | | | | | [phone] | | | | | | | [...]
--- OUTSIDE RECORDS SUMMARY | ~2020-02-17 | XMS | Encounter Summary ---
Demographics + + + | Address | [address] | | | [place] [address] | + + + | Home Phone [...] Team Providers + +------+ + | Care News Gathering Technician Name | Role | Phone | [...] [place] | | | | | | [address] | | | | | | [phone] | | | +--------+ + + + [...] [address] | | | | | | [place] [address] | | | | | | [phone] | | | | | | | | +--------+ + + + + | 05/17/ | Office | Cardiology | Jeniffer Haines | | | 2019 | Visit | | [address] | | | | | | [address] | | | | | | [place] [address] | | | | | | [phone] | | | | | | | | +--------+ + + + + documented as of this encounter Visit Diagnoses Not on filedocumented in this encounter"
--- OUTSIDE RECORDS SUMMARY | ~2020-02-17 | XMS | Encounter Summary ---
Demographics + + + | Address | [address] | | | [place] [address] | + + + | Home Phone [...] Providers + +------+ + | Care General Manager Name | Role | Phone | [...] 2017 | | GASTROENTEROLOGY | [address], [place] | | | | | [address] [place] | [address] [place], [place] | | | | | [address] [place], [place] | [address] | | | | | [address] | | | | | | [phone] | | | +--------+ + + + [...] | Sam Samuels DO | | | 2020 | | | [address] | | | | | | [place] [address] | | | | | | [phone] | | | | | | | | +--------+ + + + + | 05/17/ | Office | Cardiology | Jeniffer Haines | | | 2020 | Visit | | [address] | | | | | | [address] [address] | | | | | | [place] [address] | | | | | | [phone] | | | | | | | | +--------+ + + + + documented as of this encounter Visit Diagnoses Not on filedocumented in this encounter"
--- OUTSIDE RECORDS SUMMARY | ~2020-02-17 | XMS | Encounter Summary ---
Demographics + + + | Address | [address] | | | [place] [address] | + + + | Home Phone [...] Team Providers + +------+ + | Care Backshoe Person Name | Role | Phone | [...] + + | 11/03/ | Telephone | [facility] | Gregor Mccord MD | Other | | 2016 | | GASTROENTEROLOGY | [address], [place] | | | | | [address] [place] | [address] [place], [place] | | | | | [address] [place], [place] | [address] | | | | | [address] | | | | | | [phone] | | | +--------+ + + + [...] [address] | | | | | | [place] [address] | | | | | | [phone] | | | | | | | | +--------+ + + + + | 05/17/ | Office | Cardiology | Jeniffer Haines | | 2019 | Visit | | [address] | | | | | | [address] | | | | | | [place] [address] | | | | | | [phone] | | | | | | | | +--------+ + + + + documented as of this encounter Visit Diagnoses Not on filedocumented in this encounter"
--- OUTSIDE RECORDS SUMMARY | ~2020-02-17 | XMS | Clinical Summary ---
Demographics + + + | Address | [address] | | | [place] [address] | + + + | Home Phone [...] Team Providers + +------+ + | Care Multimedia Teacher Name | Role | Phone | [...] 0 | | | Activ | | [place]-V[place]ht[place]qhb | mouth Daily. | | | | [...] automatically from request for surgery | | [id number] | + + + + + | [...] classified | | | | | | (HCC) | +--------+ + + + + | 01/01/ | Telephone | Pain Medicine | Sam Samuels DO | Appointment | | 2020 | | | | | +--------+ + + + + | 12/22/ | Telephone | Pain Medicine | Sam Samuels DO | Other | | 2020 | | | | | +--------+ + + + + | 12/21/ | Hospital | Radiology | Sam Samuels DO | | | 2020 | Encounter | | | | +--------+ [...] + + | 11/20/ | Telephone | Orthopedic Surgery | Sam Samuels DO | Other (covid | | 2019 | | | | screening) | +--------+ + + + + | 11/16/ | Office | Cardiology | Jeniffer Haines | Essential | | 2020 | Visit | | [address] | hypertension | | | | | | (Primary Dx); Mixed | | | | | | hyperlipidemia; Mild | | | | | | aortic stenosis by | | | | | | prior | | | | | | echocardiogram; | | | | | | Systolic murmur; | | | | | | History of syncope; | | | | | | Dyspnea on exertion; | | | | | | Hypothyroidism, | | | | | | unspecified type | +--------+ + + + + from [...] | | | | | [place] [address] | | | | | | [phone] | | | | | | | | +--------+ + + + + | 05/17/ | Office | Cardiology | Jeniffer Haines | | | 2019 | Visit | | [address] | | | | | | [address] | | | | | | [place] [address] | | | | | | [phone] | | | | | | | [...] /NA | | Mark Foley MD at [facility] | | | | | | /[id number] | | [facility] | | | | | | [...] /NA | | Mark Foley MD at [facility] | | | | | | /[id number] | | [facility] | | | | | | 301 | + +--------+--------+ +--------+--------+--------+ | Imp Hip Fem Hd Bolx 36mm - | Generi | Left: | RANDI | | 02/02/ | 6570-0 | | SnaImplanted: Qty: 1 on | c | Hip | MEDICAL - | | 4 | -436 | | 03/29/2019 by Nan, | | | ALLEN | | | /NA | | Mark Foley MD at [facility] | | | | | | /[id number] | | [facility] | | | | | | 802 | + +--------+--------+ +--------+--------+--------+ | Stent Bili Advnx 10fr 5cm - | Stent | | [place] | | | 3432 / | | [id number]: Qty: 1 on | | | SCIENTIFIC | | | / | | 09/26/2016 by Gregor Mccord | | | BIGG - MATTY | | | | | MD Delmy at [facility] | | | | | | | | [facility] | | | | | | [...] /NA | | Mark Foley MD at [facility] | | | | | | /[id number] | | [facility] | | | | | | [id number] | + +--------+--------+ +--------+--------+--------+ | Screw Hex Lp [id number] - | | Left: | RANDI | | 11/20/ | 7030-6 | | SnaImplanted: Qty: 1 on | | Hip | MEDICAL - | | 2023 | 530 | | 03/29/2019 by Nan, | | | STRY | | | /NA | | Mark Foley MD at [facility] | | | | | | /[id number] | | [facility] | | | | | | [...] | [facility] | [facility] | [id number] | 06/15/19 | | | Medica | | | HEALTH | | 17-Pre | | | re | | | MDCR | | sent | | | | + +--------+ +--------+-------+---------+--------+ | [facility] | [facility] | [id number] | | | | Medica | | [...] [place] | | | 3 (Home) | [address] | + +--------+ +--------+ + + | Scarlet Murguia | Person | Self | [birth year] | [address] | | | al/Fam | | 1936 | [phone] | [place], [place] | | | [place] | | | 3 (Home) | [address] | + +--------+ +--------+ + + | Scarlet Murguia | Person | Self | [birth year] | [address] | | | al/Fam | | 1936 | [phone] | [place] | | | [place] | | | 3 ([place]) | [address] | + +--------+ +--------+ + + Advance Directives + + + + + | Type | Date Recorded | Patient | Explanation | | | | Rpg Programmer Analyst | | + + + + + | Power of | | | | | Data Technical Lead | | | | + + + [...]
--- OUTSIDE RECORDS SUMMARY | ~2020-02-17 | XMS | Encounter Summary ---
Demographics + + + | Address | [address] | | | [place] [address] | + + + | Home Phone [...] Team Providers + +------+ + | Care Landfill Gas Collection Operator Name | Role | Phone | [...] [place] | | | | | | [place], | [address] | | | | | | [place] | [place] | | | | | | [address] | [address] | | | | | | Phone: | Phone: | | | | | | [phone] | [phone] | | | | | | Fax: | Fax: | | | | | | [phone] | [phone] | +--------+--------+ + + + + Encounter Details +--------+---------+ + + + | Date | Type | Department | Care Team | Description | +--------+---------+ + + + | 09/17/ | Office | [facility] | Gregor Mccord MD | Choledocholithiasis | | 2017 | Visit | GASTROENTEROLOGY | [address], [place] | (Primary Dx) | | | | [address] [place] | [address] [place], [place] | | | | | [address] [place], [place] | [address] | | | | | [address] | | | | | | [phone] | | | +--------+---------+ + + + [...] 3 Years of Education: 12 Occupational History CHANGE OVER RETIRED Social History Main Topics Smoking status: [...] | | 2019 | | | [address] [facility] | | | | | | [place] [address] | | | | | | [phone] | | | | | | | | +--------+ + + + + | 05/17/ | Office | Cardiology | Jeniffer Haines | | | 2020 | Visit | | [address] | | | | | | [address] [address] | | | | | | [place] [address] | | | | | | [phone] | | | | | | | | +--------+ + + + + documented as of this encounter Visit Diagnoses + + | Diagnosis | + + | Choledocholithiasis - Primary Calculus of bile duct without mention of cholecystitis | | or obstruction | + + documented in this encounter
--- OUTSIDE RECORDS SUMMARY | ~2020-02-17 | XMS | Encounter Summary ---
Demographics + + + | Address | [address] | | | [place] [address] | + + + | Home Phone [...] Author | [facility] | | | and [place] | + [...] Providers + +------+ + | Care Retail Store Assistant Name | Role | Phone | + +------+ + | Susan Leos | PCP | | | PA-C | | | + +------+ + Encounter Details +--------+ + + + + | Date | Type | Department | Care Team | Description | +--------+ + + + + | 11/21/ | Hospital | [facility] | Sam Samuels, DO | Spondylolisthesis at | | 2020 | Encounter | [facility] | [address] | L4-L5 level; Lumbar | | | | [address] | [place] [address] | radiculopathy; | | | | [place], [place] | [phone] | Spinal stenosis of | | | | [address] | | lumbar region with | | | | [phone] | | neurogenic | | | | [...] | | 0 | | | | PK-Geuovhrief-Yrovpb | mouth Daily. | | | | [...] | | | 2019 | | | [address] [facility] | | | | | | [place] [address] | | | | | | [phone] | | | | | | | | +--------+ + + + + | 05/17/ | Office | Cardiology | Jeniffer Haines | | | 2019 | Visit | | [address] | | | | | | [address] [place] | | | | | | [place] [address] | | | | | | [phone] | | | | | | | [...]
--- OUTSIDE RECORDS SUMMARY | ~2020-02-17 | XMS | Encounter Summary ---
Demographics + + + | Address | [address] | | | [place] [address] | + + + | Home Phone [...] Providers + +------+ + | Care Sales Center Associate Name | Role | Phone | [...] | | | [place] | [place] [address] | | | | | [address] | [phone] | | | | | [phone] | | | +--------+ + + + [...] | | 2020 | | | [address] | | | | | | [place] [address] | | | | | | [phone] | | | | | | | | +--------+ + + + + | 05/17/ | Office | Cardiology | Jeniffer Haines | | | 2020 | Visit | | [address] | | | | | | [place] [address] | | | | | | [place] [address] | | | | | | [phone] | | | | | | | | +--------+ + + + + documented as of this encounter Visit Diagnoses Not on filedocumented in this encounter"
--- OUTSIDE RECORDS SUMMARY | ~2020-02-17 | XMS | Encounter Summary ---
Demographics + + + | Address | [address] | | | [place] [address] | + + + | Home Phone [...] Providers + +------+ + | Care Laser Technician Name | Role | Phone | + +------+ + | Susan Leos | PCP | | | PA-C | | | + +------+ + Encounter Details +--------+ + + + + | Date | Type | Department | Care Team | Description | +--------+ + + + + | 02/28/ | [facility] | [facility] | Malcom Mojica, | Peripheral | | 2016 | Encounter | [facility] | [address] | polyneuropathy | | | | [address] | [address], | (Primary Dx) | | | | [place], [place] | [place] [address] | | | | | [address] | [phone] | | | | | [phone] | | | +--------+ + + + [...] | | | | 0 | | ([facility]) | | | | | | | MISC | | | | | | + + + +---------+--------+ + | [place]-3 Fatty | Take 1 tablet by | [...] [address] | | | | | | [place] [address] | | | | | | [phone] | | | | | | | | +--------+ + + + + | 05/17/ | Office | Cardiology | Jneiffer Haines | | | 2019 | Visit | | [address] | | | | | | [address] | | | | | | [place] [address] | | | | | | [phone] | | | | | | | [...] [place] | | | | | | [address] | | | | + + + [...] [address] | [place] [address] | [phone] | + + + + + Vitamin [...] Vitamin | | | | | | Q6voiokwwrbrf.This test | | | | | | [...] [place] | | | | | | [address] | | | | + + + [...] [address] | [place] [address] | [phone] | + + + + + documented in this encounter Visit Diagnoses + + | Diagnosis | + + | Peripheral polyneuropathy - Primary Unspecified hereditary and idiopathic peripheral | | neuropathy | + + documented in this encounter"
--- OUTSIDE RECORDS SUMMARY | ~2020-02-17 | XMS | Encounter Summary ---
Demographics + + + | Address | [address] | | | [place] [address] | + + + | Home Phone [...] + | Author | [facility] | | | and [place] | + + + | Organization | [facility] | | | [...] Team Providers + +------+ + | Care Lens Maker Name | Role | Phone | [...] [address] | | | | | [address] [place], [place] | [address] | | | | | [address] | [place] [address] | | | | | [phone] | [phone] | | | | | | | [...] Miscellaneous Notes Telephone Encounter - Yvette Michelle, Director Education - 08/25/2019 8:25 AM PDTAdvised patient that referral for MRI was refaxed yesterday and that per Dr. [place], she should f ind someone that does interventional pain management and/or spine care. Once she finds jaleesao ne, let us know and we can fax referral. elephone Encounter - Fabiana Yeung - 08/24/2019 9:03 AM PDTPatient called us stating that she spoke with [facility] about her MRI order that was supposed to be sent to them. She was told that they haven't received anything from yet so it needs to be resent. Patient also stated she would like to know if could refer her to an Orthopedis t that is closer to where she lives than [facility]. The trip for appts is becoming a lot fo r her. Please call patient back at [phone] signed by Fabiana Yeung at 0 9:06 [...] [address] | | | | | | [place] [address] | | | | | | [phone] | | | | | | | | +--------+ + + + + | 05/17/ | Office | Cardiology | Jeniffer Haines | | | 2019 | Visit | | [address] | | | | | | [address] | | | | | | [place] [address] | | | | | | [phone] | | | | | | | | +--------+ + + + + documented as of this encounter Visit Diagnoses Not on filedocumented in this encounter"
--- OUTSIDE RECORDS SUMMARY | ~2020-02-17 | XMS | Encounter Summary ---
Demographics + + + | Address | [address] | | | [place] [address] | + + + | Home Phone [...] Team Providers + +------+ + | Care Demand Planning Analyst Name | Role | Phone | [...] | | | | | Complete | [place], [place] | [address] | | | | | | [address] | Phone: | | | | | | Phone: | [phone] | | | | | | [phone] | Fax: | | | | | | Fax: | [phone] | | | | | | [phone] | | +--------+--------+ + + + + [...] | | Procedures | [address] | [place], [place] | | | | | CONSULT | Ave | [address] Phone: | | | | | | [place], | [phone] | | | | | | [place] | Fax: | | | | | | [address] | [phone] | | | | | | Phone: | | | | | | | [phone] | | | | | | | Fax: | | | | | | | [phone] | | +--------+--------+ + + + + [...] | [address] | [place], [place] | Syncope, unspecified | | | | [address] | [address] | syncope type; | | | | [place] | | Hypertension, | | | | [address] | | unspecified type | | | | [phone] | | | +--------+---------+ + + + [...] Griffin DO - 06/30/2019 2:20 PM PST [facility] Cardiology Cardiology Consult Note Reason for [...] Procedure: ERCP; Surgeon: Gregor Mccord MD; Location: [facility] MEDICAL PROCEDURE UNIT ERCP N/A 10/14/2016 Procedure: ERCP w/ stent pull; Surgeon: Gregor Mccord MD; Location: [facility] MEDICAL PROCEDU RE UNIT HARDWARE REMOVAL Left 03/29/2019 Procedure: REMOVE HARDWARE LOWER EXTREMITY-HIP; Surgeon: Mark [place] MD; Location : [facility] MAIN OR PARTIAL HYSTERECTOMY 1972 RECTOCELE REPAIR 1991 TAILBONE 1973 broken, partial removal TONSILLECTOMY 1938 TOTAL HIP ARTHROPLASTY Left 03/29/2019 Procedure: Posterior Total Hip Arthroplasty; Surgeon: Mark Montana MD; Location: [facility] MAIN OR MEDICATIONS Home Medications Outpatient Encounter [...] [facility]) MISC Take by mouth. 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
--- OUTSIDE RECORDS SUMMARY | ~2020-02-17 | XMS | Encounter Summary ---
Demographics + + + | Address | [address] | | | [place] [address] | + + + | Home Phone [...] + +------+ + | Care Log Haul Chain Feeder Name | Role | Phone | [...] Appointment | | 2018 | | [place] [facility] [address] | Community Health Outreach Worker | | | | | [place] | | | | | | [address] | | | | | | [phone] | | | +--------+ + + + [...] Miscellaneous Notes Telephone Encounter - Yvette Michelle, Community Health Outreach Worker - 03/16/2019 8:35 AM [facility] for p atient to call [...] [address] | | | | | | [place] [address] | | | | | | [phone] | | | | | | | | +--------+ + + + + | 05/17/ | Office | Cardiology | Jeniffer Haines | | 2019 | Visit | | [address] | | | | | | [address] | | | | | | [place] [address] | | | | | | [phone] | | | | | | | | +--------+ + + + + documented as of this encounter Visit Diagnoses Not on filedocumented in this encounter"
--- OUTSIDE RECORDS SUMMARY | ~2020-02-17 | XMS | Encounter Summary ---
Demographics + + + | Address | [address] | | | [place] [address] | + + + | Home Phone [...] Team Providers + +------+ + | Care Township Supervisor Name | Role | Phone | [...] | | | | region, with | [place], | [facility] [place] | | | | | neurogenic | [place] [address] | [facility], | | | | | claudication | Phone: | [place] | | | | | | [phone] | [address] | | | | | | Fax: | Phone: | | | | | | [phone] | [phone] | | | | | | | Fax: | | | | | | | [phone] | + + + + + + [...] | | | [address] | [place] [address] | (Primary Dx); Lumbar | | | | [address] [place], | [phone] | radiculopathy; | | | | [place] [address] | | Spinal stenosis of | | | | [phone] | | lumbar region with | | [...] Samuels DO - 11/22/2019 1:00 PM PDT [facility]: Interventional Pain Management 11/22/2019November Blade [...] 02/04/2016 Diabetes type 2, controlled ([facility]) DVT (deep venous thrombosis) ([facility]) 03/2019 post hip replacement Full dentures upper & lower GERD (gastroesophageal reflux disease) Heart murmur HTN (hypertension) Hyperlipidemia Hypothyroidism Macular degeneration Other intervertebral disc displacement, lumbar region Peripheral neuropathy Pneumonia 2005 Pulmonary emboli ([facility]) 03/2019 after hip replacement Skin cancer Spondylolisthesis at L4-L5 level 02/04/2016 Stress incontinence in female Type 2 diabetes mellitus ([facility]) Past Surgical History: Procedure Laterality Date CHOLECYSTECTOMY COLONOSCOPY 2003; 2009; 2011 polyp's removed CYSTOCELE REPAIR 1971 ERCP N/A 09/26/2016 Procedure: ERCP; Surgeon: Gregor Mccord MD; Location: [facility] ERCP N/A 10/14/2016 Procedure: ERCP w/ stent pull; Surgeon: Gregor Mccord MD; Location: [facility] HARDWARE REMOVAL Left 03/29/2019 Procedure: REMOVE HARDWARE LOWER EXTREMITY-HIP; Surgeon: Mark [place] MD; Location : [facility] MA[facility] OR PARTIAL HYSTERECTOMY 1971 RECTOCELE REPAIR 1991 TAILBONE 1973 broken, partial removal TONSILLECTOMY 1938 TOTAL HIP ARTHROPLASTY Left 03/29/2019 Procedure: Posterior Total Hip Arthroplasty; Surgeon: Mark [place] MD; Location: [facility] MAIN OR Allergies Allergen Reactions [...] Twice daily as needed. 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 The possibility of "s ound alike" certified social workers in health care errors, and additions, or deletions may occur. [...] [address]ERRER | | | | | | [place] [address] | | | | | | [phone] | | | | | | | | +--------+ + + + + | 05/17/ | Office | Cardiology | Jeniffer Haines | | 2019 | Visit | | [address] | | | | | | [address] | | | | | | [place] [address] | | | | | | [phone] | | | | | | | [...]
--- OUTSIDE RECORDS SUMMARY | ~2020-02-17 | XMS | Encounter Summary ---
Demographics + + + | Address | [address] | | | [place] [address] | + + + | Home Phone [...] + +------+ + | Care Senior Software Manager Name | Role | Phone | [...] [place] | | | | | | [address] | | | | | | [phone] | | | +--------+ + + + [...] | | | | | [place] [address] | | | | | | [phone] | | | | | | | | +--------+ + + + + | 05/17/ | Office | Cardiology | Jeniffer Haines | | | 2019 | Visit | | [address] | | | | | | [address] | | | | | | [place] [address] | | | | | | [phone] | | | | | | | | +--------+ + + + + documented as of this encounter Visit Diagnoses + + | Diagnosis | + + | Other screening mammogram | + + documented in this encounter"
--- OUTSIDE RECORDS SUMMARY | ~2020-02-17 | XMS | Encounter Summary ---
Demographics + + + | Address | [address] | | | [place] [address] | + + + | Home Phone [...] Team Providers + +------+ + | Care Storage Facility Rental Clerk Name | Role | Phone [...] [place] | | | | | | [address] | | | | | | [phone] | | | +--------+ + + + [...] | | | | | [place] [address] | | | | | | [phone] | | | | | | | | +--------+ + + + + | 05/17/ | Office | Cardiology | Jeniffer Haines | | | 2020 | Visit | | [address] | | | | | | [address] | | | | | | [place] [address] | | | | | | [phone] | | | | | | | | +--------+ + + + + documented as of this encounter Visit Diagnoses Not on filedocumented in this encounter"
--- OUTSIDE RECORDS SUMMARY | ~2020-02-17 | XMS | Encounter Summary ---
Demographics + + + | Address | [address] | | | [place] [address] | + + + | Home Phone [...] Team Providers + +------+ + | Care Offbearer Sewer Pipe Name | Role | Phone | + [...] [place] | | | | | | [address] | | | | | | [phone] | | | +--------+ + + + [...] | | | | | [place] [address] | | | | | | [phone] | | | | | | | | +--------+ + + + + | 05/17/ | Office | Cardiology | Jeniffer Haines | | | 2020 | Visit | | [address] | | | | | | [address] | | | | | | [place] [address] | | | | | | [phone] | | | | | | | | +--------+ + + + + documented as of this encounter Visit Diagnoses Not on filedocumented in this encounter"
--- OUTSIDE RECORDS SUMMARY | ~2020-02-17 | XMS | Encounter Summary ---
Demographics + + + | Address | [address] | | | [place] [address] | + + + | Home Phone | | + + + | Preferred Language | Unknown | + + + | Marital Status | | + + + | Taoist Affiliation | Unknown | + + + | Race | White | + + + | Ethnic Group | Not or | + + + Author + + + | Author | [facility] | + + + | Organization | [facility] | + + + | [...] Team Providers + +------+ + | Care Campaign Worker Name | Role | Phone | [...] | | | | | | Floor [place], [place] | | | | | | [address] | | | | | | [phone] | | | +--------+ + + + [...] | | | | | | skin, [id number]. The | | | | | | [...] [facility] | [address] | [place] [address] | | | DERMATOPATHOLOGY | [address] | | | + + + + + | [facility] | [address] | [place] [address] | | | DERMATOPATHOLOGY | [address] | | | + + + + + documented in this encounter Visit Diagnoses + + | Diagnosis | + + | Other melanin hyperpigmentation | + + documented in this encounter
--- OUTSIDE RECORDS SUMMARY | ~2020-02-17 | XMS | Encounter Summary ---
Demographics + + + | Address | [address] | | | [place] [address] | + + + | Home Phone [...] Team Providers + +------+ + | Care Conditioning Yard Supervisor Name | Role | Phone | [...] | | | | | Spondylolist | [place] | [address] | | | | | hesis at | [address] | Phone: | | | | | L4-L5 level | Phone: | [phone] | | | | | Bilateral | [phone] | Fax: | | | | | lumbar | Fax: | [phone] | | | | | radiculopath | [phone] | | | | | | y [...] | | [place], [place] | [place] [address] | Spondylolisthesis | | | | [address] | [phone] | at L4-L5 level; | | | | [phone] | | Bilateral lumbar | | | [...] | | | | | | [place] [address] | | | | | | [phone] | | | | | | | | +--------+ + + + + | 05/17/ | Office | Cardiology | Jeniffer Haines | | | 2019 | Visit | | [address] | | | | | | [address] | | | | | | [place] [address] | | | | | | [phone] | | | | | | | | +--------+ + + + + + + +--------+ + + | Name | Type | Priori | Associated Diagnoses | Order Schedule | | | | ty | | | + + +--------+ + + | AMB REFERRAL TO [facility] | Outpatient | Routin | DDD [...]
--- OUTSIDE RECORDS SUMMARY | ~2020-02-17 | XMS | Encounter Summary ---
Demographics + + + | Address | [address] | | | [place] [address] | + + + | Home Phone [...] Team Providers + +------+ + | Care Business Operations Director Name | Role | Phone [...] + | 03/03/ | Telephone | [facility] | Malcom Mojica, | Other (discuss lab | | 2016 | | PHYSIATRY [address] | [address] | work ) | | | | [address] | [address] [place], | | | | | [place] | [place] [address] | | | | | [address] | [phone] | | | | | [phone] | | | +--------+ + + + [...] [address] | | | | | | [place] [address] | | | | | | [phone] | | | | | | | | +--------+ + + + + | 05/17/ | Office | Cardiology | Jeniffer Haines | | | 2019 | Visit | | [address] | | | | | | [address] | | | | | | [place] [address] | | | | | | [phone] | | | | | | | | +--------+ + + + + documented as of this encounter Visit Diagnoses Not on filedocumented in this encounter"
--- OUTSIDE RECORDS SUMMARY | ~2020-02-17 | XMS | Encounter Summary ---
Demographics + + + | Address | [address] | | | [place] [address] | + + + | Home Phone [...] + + + | Author | [facility] | | | and [place] | + + + | Organization | [facility] | | [...] Team Providers + +------+ + | Care Child Care Giver Name | Role | Phone | + +------+ + | Susan Leos | PCP | | | PA-C | | | + +------+ + Encounter Details +--------+ + + + + | Date | Type | Department | Care Team | Description | +--------+ + + + + | 12/07/ | Hospital | [facility] | Motaghi, Sam, DO | | | 2020 | Encounter | [facility] | [address] | | | | | XRAY [address] | [place] [address] | | | | | DR [address] [place], | [phone] | | | | | [place] [address] | | | | | | [phone] | | | +--------+ + + + [...] | | 0 | | | | YT-Ruwovpyjvt-Aryomc | mouth Daily. | | | | [...] | | 2019 | | | [address] [facility] | | | | | | [place] [address] | | | | | | [phone] | | | | | | | | +--------+ + + + + | 05/17/ | Office | Cardiology | Jeniffer Haines | | | 2019 | Visit | | [address] | | | | | | [address] | | | | | | [place] [address] | | | | | | [phone] | | | | | | | [...]
--- OUTSIDE RECORDS SUMMARY | ~2020-02-17 | XMS | Encounter Summary ---
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 [address] | PHYSICAL | | | | | ic | [address] | THERAPY [address] | | | | | osteoarthrit | V[facility] A | [facility] | | | | | is of left | [place], [place] | [place], [place] | | | | | hip | [address] | [address] | | | | | | Phone: | Phone: | | | | | | [phone] | [phone] | | | | | | Fax: | Fax: | | | | | | [phone] | [phone] | +--------+ + + + + + [...] | | | from | [address] | [address] | | | | | [place] at | [address] | BL[address] [place] | | | | | [facility] | [place], | [place], [place] | | | | | Procedures | [place] | [address] Phone: | | | | | NEW PATIENT | [address] | [phone] | | | | | | Phone: | Fax: | | | | | | [phone] | [phone] | | | | | | Fax: | | | | | | | [phone] | | + +--------+ + + + + Encounter Details +--------+---------+ + + + | Date | Type | Department | Care Team | Description | +--------+---------+ + + + | 03/21/ | Office | [facility] | Gus Orozco, | 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[place], [place] | [facility], | left hip (Primary | | | | [address] | [place] [address] | Dx) | | | | [phone] | [phone] | | | | | | | [...] Procedure: ERCP; Surgeon: Gregor Mccord MD; Location: [facility] ERCP N/A 10/14/2016 Procedure: ERCP w/ stent pull; Surgeon: Gregor Mccord MD; Location: [facility] PARTIAL HYSTERECTOMY [...] Maternal Uncle Social History 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 Tobacco Use Smoking status: Never [...] MISC, Take by mouth., Disp: , Rfl: Malibu-3 Fatty Acids (PRO NUTRIENTS OMEGA 3 PO), [...] 12 months?:yes Under the care of a filter washer?: no Diabetes Optimization?:well controlled diet No results found for: LABGLYC History of MRSA/MSSA infection?:no Metal sensitivity or allergy?:no Intolerance to certain specific opiate?:no DVT/PE Risk Stratification Personal history of DVT/PE?:no Cancer treatment in the last 5 years?:no Hormone replacement therapy?:no Tolerate aspirin?:asa Current Anticoagulation?:asa Chemical prophylaxis plan:asa Anticipated Discharge Plan Discharge home to care of daughter (princess), [facility] Return for 2 and 6 [...] Procedure: ERCP; Surgeon: Gregor Mccord MD; Location: [facility] ERCP N/A 10/14/2016 Procedure: ERCP w/ stent pull; Surgeon: Gregor Mccord MD; Location: [facility] PARTIAL HYSTERECTOMY [...] Maternal Uncle Social History 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 Tobacco Use Smoking status: Never [...] MISC, Take by mouth., Disp: , Rfl: [place]u-3 Fatty Acids (PRO NUTRIENTS OMEGA 3 PO), [...] 12 months?:yes Under the care of a filter washer?: no Diabetes Optimization?:well controlled diet No results found for: LABGLYC History of MRSA/MSSA infection?:no Metal sensitivity or allergy?:no Intolerance to certain specific opiate?:no DVT/PE Risk Stratification Personal history of DVT/PE?:no Cancer treatment in the last 5 years?:no Hormone replacement therapy?:no Tolerate aspirin?:asa Current Anticoagulation?:asa Chemical prophylaxis plan:asa Anticipated Discharge Plan Discharge home to care of daughter (princess), [facility] in [facility] Return for [...] | | 2019 | | | [address] [facility] | | | | | | [place] [address] | | | | | | [phone] | | | | | | | | +--------+ + + + + | 05/17/ | Office | Cardiology | Jeniffer Haines | | | 2019 | Visit | | [address] | | | | | | [address] | | | | | | [place] [address] | | | | | | [phone] | | | | | | | [...]
--- OUTSIDE RECORDS SUMMARY | ~2020-02-17 | XMS | Encounter Summary ---
Demographics + + + | Address | [address] | | | [place] [address] | + + + | Home Phone [...] Providers + +------+ + | Care Platform Man Name | Role | Phone | [...] | y, lumbar | ST | [address] [place], | | | | | region TFE | [place], [place] | [place] [address] | | | | | Lumbar | [address] | Phone: | | | | | BiLat L4 | Phone: | [phone] | | | | | (03-26) | [phone] | Fax: | | | | | Procedures | Fax: | [phone] | | | | | LA INJECT | [phone] | | | | | | ANES/STEROID [...] + + | 12/07/ | Hospital | [facility] | Sam Samuels DO | Spondylolisthesis at | | 2020 | Encounter | INTERVENTIONAL PAIN | [address] | L4-L5 level | | | | MGMT [address] | [place] [address] | (Primary Dx); Lumbar | | | | [facility], | [phone] | radiculopathy; | | | | [place] [address] | | Spinal stenosis of | | | | [phone] | | lumbar region with | | [...] and his staff can be contacted at [phone]. If you are unable to contact your doctor or their associate, you may come to the Emergency Department at [facility]. These instructions have been explained to the [...] | | 0 | | | | [facility] | mouth Daily. | | | | [...] PDT OPERATIVE REPORT NAME: Scarlet Murguia MR#: [id number] : 1935 DATE: 12/08/2019 SURGEON Sam Samuels [...] to the 6 o'clock position of the Z3xgfhavfi respectively. The entire procedure was repeated on [...] olone and 4.5 ml of 0.25% Naropin. [place] were removed intact, skin was cleansed, and [...] | | | | | [place] [address] | | | | | | [phone] | | | | | | | | +--------+ + + + + | 05/17/ | Office | Cardiology | ZakiJeniffer | | | 2020 | Visit | | [address] | | | | | | [address] | | | | | | [place] [address] | | | | | | [phone] | | | | | | | [...]
--- OUTSIDE RECORDS SUMMARY | ~2020-02-17 | XMS | Encounter Summary ---
Demographics + + + | Address | [address] | | | [place] [address] | + + + | Home Phone [...] Providers + +------+ + | Care Tire Balancer Name | Role | Phone | + [...] + | 03/29/ | Surgery | [facility] | Mark Montana | Posterior Total Hip | | 2019 | | [facility] | MD Alaina [address] | Arthroplasty | | | | OPERATING ROOM [address] | [address] | | | | | [address] | [place] [address] | | | | | [place], [place] | [phone] | | | | | [address] | | | | | | [phone] | | | +--------+---------+ + + + [...] 02/04/2016 Diabetes type 2, controlled ([facility]) Full dentures upper & lower GERD (gastroesophageal reflux disease) HTN (hypertension) Hyperlipidemia Hypothyroidism Macular degeneration Other intervertebral disc displacement, lumbar region Peripheral neuropathy Pneumonia 2004 Skin cancer Spondylolisthesis at L4-L5 level 02/04/2016 Stress incontinence in female Type 2 diabetes mellitus ([facility]) Past Surgical History: Procedure Laterality Date CHOLECYSTECTOMY COLONOSCOPY 2003; 2009; 2011 polyp's removed CYSTOCELE REPAIR 1971 ERCP N/A 09/26/2016 Procedure: ERCP; Surgeon: Gregor Mccord MD; Location: [facility] MEDICAL PROCEDURE UNIT ERCP N/A 10/14/2016 Procedure: ERCP w/ stent pull; Surgeon: Gregor Mccord MD; Location: [facility] MEDICAL PROCEDU RE UNIT HARDWARE REMOVAL Left 03/29/2019 Procedure: REMOVE HARDWARE LOWER EXTREMITY-HIP; Surgeon: Mark Montana MD; Location : [facility] MAIN OR PARTIAL HYSTERECTOMY [...] Code Follow up: Gus Orozco PA-C [address] [facility] [address] In 2 weeks Discharge Medications Changed Medications [...] | | | | 0 | | ([facility]) | | | | | | | MISC | | | | | | + + + +---------+ + + | Norlina- Fatty | Take 1 tablet by | [...] 4 Handrail Location: both sides Level of Hill: stand by assist Assistive Device: 2 rails [...] throughout activities and motivated each other thro [facility] discussion of goals/plans after discharge. [...] LTG Status new at 03/29/2019 1246 LTG Hill Level modified independent at 03/29/2019 1246 LTG Assistive Device none at 03/29/2019 1246 All Transfers Goal Most Recent Value LTG Status new at 03/29/2019 1246 LTG Hill Level stand by assist at 03/29/2019 1246 LTG Assistive Device 2 wheeled walker (FWW) at 03/29/2019 1246 Stair Goal Most Recent Value LTG Status new at 03/29/2019 1246 LTG Hill Level contact guard assist at 03/29/2019 1246 LTG Assistive Device 2 rails at 03/29/2019 1246 LTG Number of Stairs 5 at 03/29/2019 1246 lan of Care - Arias Villar, FIELD OPERATOR - 03/31/2019 8:57 AM PDT Physical [...] oriented x 4 Transfers Sit-Stand, Level of Hill: stand by assist Stand-Sit, Level of Hill: stand by assist Bfo-Lzneg-Pyn, Assistive Device: 2 wheeled walker (FWW) Safety Issues: stands too far from assistive device Impairments: ROM decreased, strength decreased Gait Level of Hill: stand by assist Assistive Device: 2 wheeled [...] LTG Status new at 03/29/2019 1246 LTG Hill Level modified independent at 03/29/2019 1246 LTG Assistive Device none at 03/29/2019 1246 All Transfers Goal Most Recent Value LTG Status new at 03/29/2019 1246 LTG Hill Level stand by assist at 03/29/2019 1246 LTG Assistive Device 2 wheeled walker (FWW) at 03/29/2019 1246 Stair Goal Most Recent Value LTG Status new at 03/29/2019 1246 LTG Hill Level contact guard assist at 03/29/2019 1246 [...] Recommendations: 2 wheeled walker (FWW), sock aide, street cleaner, long handled sponge Barriers to community-based discharge [...] washed hands at sink Grooming, Level of Hill: independent Assistive Device: none Grooming Assess/Train, Position: supported standing Grooming Impairments: impaired balance Bathing Upper body dressing donned shirt UB Dressing, Level of Hill: set up required Assistive Device: none UB Dressing Assess/Train, Position: sitting UB Dressing Impairments: impaired balance Lower body dressing donned pants LB Dressing, Level of Hill: minimal assist (75% patient effort), verbal cues requir ed Assistive Device: street cleaner LB Dressing Assess/Train, Position: sitting LB Dressing Impairments: ROM decreased, strength decreased, impaired balance Toileting pt urinated in toilet Toileting, Level of Hill: stand by assist Assistive Device: grab bar Toileting Assess/Train, Position: sitting Toileting Impairments: strength decreased, impaired balance IADLs FUNCTIONAL MOBILITY Bed Mobility Transfers Sit-Stand, Level of Hill: contact guard assist, verbal cues required Stand-Sit, Level of Hill: contact guard assist, verbal cues required Ejl-Ilzqu-Jkc, Assistive Device: 2 wheeled walker (FWW) Toilet, Level of Hill: contact guard assist, verbal cues required Toilet, Assistive Device: grab bars, 2 wheeled walker (FWW) Walk-in shower, Level of Hill: contact guard assist, verbal cues required Walk-in [...] STG Status new at 03/30/2019 06 STG Hill Level set up required at 03/30/2019 06 ST[address] Adaptive Equipment [address] cleaner, shoe horn, long handled, sock-aid at 03/30/2019 [...] plan of care and goals. lan of [facility] Stephanie Fung RN - 03/31/2019 6:30 AM [...] oriented x 4 Transfers Sit-Stand, Level of Hill: minimal assist (75% patient effort) Stand-Sit, Level of Hill: minimal assist (75% patient effort) Ash-Qewxj-Tou, Assistive Device: 2 wheeled walker (FWW) Safety Issues: stands too far from assistive device Impairments: strength decreased Gait Level of Hill: stand by assist, verbal cues required Assistive [...] LTG Status new at 03/29/2019 1246 LTG Hill Level modified independent at 03/29/2019 1246 LTG Assistive Device none at 03/29/2019 1246 All Transfers Goal Most Recent Value LTG Status new at 03/29/2019 1246 LTG Hill Level stand by assist at 03/29/2019 1246 LTG Assistive Device 2 wheeled walker (FWW) at 03/29/2019 1246 Stair Goal Most Recent Value LTG Status new at 03/29/2019 1246 LTG Hill Level contact guard assist at 03/29/2019 1246 LTG Assistive Device 2 rails at 03/29/2019 1246 LTG Number of Stairs 5 at 03/29/2019 1246 lan of Darby Duarte RN - 03/30/2019 7:10 AM PDT Problem: Postoperative Urinary Retention (Hip Arthroplasty) Goal: Effective Urinary Elimination Intervention: Monitor and Manage Urinary Retention Note: [place] placed on restaurant shift leader for urinary retention. Will continue to assess and remove when ready lan of Viv Ley, OT - 03/30/2019 6:55 AM PDT SHOTEVAL Occupational Therapy Initial Evaluation Note Recommended discharge disposition: home with assist, chcf facility Post discharge occupational therapy recommendation: family [...] assistance. If this is not possible, a chcf facility would be good to help build [...] toilet, raised toilet seat, accessible to walker [facility]. Functional Level Prior Transferring: independent Ambulation: independent Toileting: independent Bathing: independent Dressing: independent Eating: independent Equipment Currently Used at Home: 4 wheeled walker (4WW), cane, straight, single point, gra b bars, long handled sponge, raised toilet, street cleaner Prior Functional Level Comment: Independent with all [...] cares and washing face. Grooming, Level of Hill: set up required Assistive Device: none Grooming Assess/Train, Position: standing Grooming Impairments: pain(fatigue) Upper Body Dressing Assessment/Training UB Dressing Assess/Train, Comment: Pt able to don bra and shirt while seated EOB. UB Dressing, Level of Hill: set up required Assistive Device: none UB Dressing Assess/Train, Position: sitting UB Dressing Impairments: pain Lower Body Dressing Assessment/Training LB Dressing Assess/Train, Comment: Pt able to don pants and socks while seated EOB. LB Dressing, Level of Hill: minimal assist (75% patient effort) Assistive Device: street cleaner, sock-aid LB Dressing Assess/Train, Position: sitting LB Dressing Impairments: pain, strength decreased Toileting Assessment/Training Toileting Assess/Train, Comment: Pt able to sit down for bowel movement. Toileting, Level of Hill: stand by assist Assistive Device: grab bar Toileting Assess/Train, Position: sitting Toileting Impairments: pain Bed Mobility Additional Documentation: scooting/bridging, supine to/from sit, sidelying to/from sit Assistive Device: bed rails, HOB elevated Scoot/Bridge, Level of Hill: stand by assist Supine to Sit, Level of Hill: moderate assist (50% patient effort) Sidelying to Sit, Level of Hill: stand by assist Safety Issues: decreased use of arms for pushing/pulling, impaired trunk control for bed mo bility Impairments: strength decreased, postural control impaired, pain Transfers Additional Documentation: bed to/from chair, sit to/from stand, toilet Bed-Chair, Level of Hill: stand by assist Nns-Rbzvr-Ken, Assistive Device: 2 wheeled walker (FWW), gait belt Sit-Stand, Level of Hill: stand by assist Stand-Sit, Level of Hill: stand by assist Hwm-Easpe-Ety, Assistive Device: 2 wheeled walker (FWW) Toilet, Level of Hill: stand by assist Toilet, Assistive Device: grab [...] Value STG Status new at 03/30/2019654 STG Hill Level set up required at 03/30/2019654 STG Adaptive Equipment street cleaner, shoe horn, long handled, sock-aid at 03/30/2019654 [...] for signs of infection. Pain assessments per [place] [facility] policy. lan of Darby Patel RN - [...] toilet, raised toilet seat, accessible to walker, [facility]. Functional Level Prior Transferring: independent Ambulation: independent [...] HOB elevated Supine to Sit, Level of Hill: stand by assist, verbal cues required Sit to Supine, Level of Hill: stand by assist, verbal cues required Impairments: ROM decreased Transfers Additional Documentation: sit to/from stand Sit-Stand, Level of Hill: moderate assist (50% patient effort), verbal cues require d Stand-Sit, Level of Hill: stand by assist, verbal cues required Bjf-Fczyf-Bam, Assistive Device: 2 wheeled walker (FWW) Maintain Weight Bearing Status: able to maintain weight bearing status Impairments: ROM decreased Gait Level of Hill: stand by assist Assistive Device: 2 wheeled [...] LTG Status new at 03/29/2019 1246 LTG Hill Level modified independent at 03/29/2019 1246 LTG Assistive Device none at 03/29/2019 1246 All Transfers Goal Most Recent Value LTG Status new at 03/29/2019 1246 LTG Hill Level stand by assist at 03/29/2019 1246 LTG Assistive Device 2 wheeled walker (FWW) at 03/29/2019 1246 Stair Goal Most Recent Value LTG Status new at 03/29/2019 1246 LTG Hill Level contact guard assist at 03/29/2019 1246 LTG Assistive Device 2 rails at 03/29/2019 1246 LTG Number of Stairs 5 at 03/29/2019 1246 p Note - Mark Montana MD - 03/29/2019 9:12 AM [facility] Service: Orthopedic Surgery Operative Note Date of Procedure: 03/29/2019 Surgeon: Mark Montana MD LEAN MANUFACTURING LEADER: Gus Orozco PA-C; Please note that assistance was necessary for the purpose o f patient positioning, prepping, draping, retraction, reduction, implant placement, and woun d closure. 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 The patient completed [...] by: Mark Montana MD, 03/29/2019 7:19 [facility] Mark [facility] MD at 019 7:19 AM PDTdocumented in this encounter Plan of Treatment +--------+ + + + + | Date | Type | Specialty | Care Team | Description | +--------+ + + + + | 02/21/ | Appointment | Pain Medicine | Sam Samuels DO | | 2019 | | | [address] [facility] | | | | | | [place] [address] | | | | | | [phone] | | | | | | | | +--------+ + + + + | 05/17/ | Office | Cardiology | Jeniffer Haines | | | 2020 | Visit | | [address] | | | | | | [address] | | | | | | [place] [address] | | | | | | [phone] | | | | | | | [...] | | | POC | performed at [facility];[address] | | LABORATORY | | | | [address] [facility];[place], [place] | | | | | | [address] | | | | + + + + + + + + | Specimen | + + | | + + + + + + + | Performing | Address | City/State/Zipcode | Phone Number | | Organization | | | | + + + + + | [facility] | [address] | [place] [address] | [phone] | + + + + + POC Glucose (03/31/2019 7:23 AM PDT) + + + + + + | Component | Value | Ref Range | Performed | Pathologist | | | | | At | Signature | + + + + + + | Glucose, | 122 (H)Comment: Testing | 65 - 99 mg/dL | [facility] | | | POC | performed at [facility];[address] | | LABORATORY | | | | [address];[place], [place] | | | | | | [address] | | | | + + + + + + + + | Specimen | + + | | + + + + + + + | Performing | Address | City/State/Zipcode | Phone Number | | Organization | | | | + + + + + | [facility] | [address] | [place] [address] | [phone] | + + + + + POC Glucose (03/30/2019 8:57 PM PDT) + + + + + + | Component | Value | Ref Range | Performed | Pathologist | | | | | At | Signature | + + + + + + | Glucose, | 98Comment: Testing | 65 - 99 mg/dL | [facility] | | | POC | performed at [facility];8 | | LABORATORY | | | | [address];[place], [place] | | | | | | [address] | | | | + + + + + + + + | Specimen | + + | | + + + + + + + | Performing | Address | City/State/Zipcode | Phone Number | | Organization | | | | + + + + + | [facility] | [address] | [place] [address] | [phone] | + + + + + Hemoglobin [...] LESLIE | | | | performed at [facility];[address] | | LABORATORY | | | | [address];[place] | | | | | | [address] | | | | + + + + + + + + | Specimen | + + | Blood | + + + + + + + | Performing | Address | City/State/Zipcode | Phone Number | | Organization | | | | + + + + + | [facility] | [address] | [place] [address] | [phone] | + + + + + POC [...] | | | POC | performed at [facility];[address] | | LABORATORY | | | | [address];[place] | | | | | | [address] | | | | + + + + + + + + | Specimen | + + | | + + + + + + + | Performing | Address | City/State/Zipcode | Phone Number | | Organization | | | | + + + + + | [facility] | [address] | [place] [address] | [phone] | + + + + + POC [...] | | | POC | performed at [facility];[address] | | LABORATORY | | | | [address];[place] | | | | | | [address] | | | | + + + + + + + + | Specimen | + + | | + + + + + + + | Performing | Address | City/State/Zipcode | Phone Number | | Organization | | | | + + + + + | [facility] | [address] | [place] [address] | [phone] | + + + + + XR [...] | | | POC | performed at [facility];[address] | | LABORATORY | | | | [address];[place] | | | | | | [address] | | | | + + + + + + + + | Specimen | + + | | + + + + + + + | Performing | Address | City/State/Zipcode | Phone Number | | Organization | | | | + + + + + | [facility] | [address] | [place] [address] | [phone] | + + + + + Type [...] + + + | BB BAND | [id number] | | [facility] | | | | | | LABORATORY | | + + + + + + | BB BAND | Testing performed at | | [facility] | | | | [facility];[address] | LABORATORY | | | | [address];[place] [address] | | | | + + + + + + + + | Specimen | + + | Blood | + + + + + + + | Performing | Address | City/State/Zipcode | Phone Number | | Organization | | | | + + + + + | [facility] | [address] | [place] [address] | [phone] | + + + + + POC Glucose (03/29/2019 6:42 AM PDT) + + + + + + | Component | Value | Ref Range | Performed | Pathologist | | | | | At | Signature | + + + + + + | Glucose, | 96Comment: Testing | 65 - 99 mg/dL | [facility] | | | POC | performed at [facility];[address] | | LABORATORY | | | | [address];[place], [place] | | | | | | [address] | | | | + + + + + + + + | Specimen | + + | | + + + + + + + | Performing | Address | City/State/Zipcode | Phone Number | | Organization | | | | + + + + + | [facility] | [address] | [place] [address] | [phone] | + + + + + documented [...]
--- OUTSIDE RECORDS SUMMARY | ~2020-02-17 | XMS | Encounter Summary ---
Demographics + + + | Address | [address] | | | [place] [address] | + + + | Home Phone [...] Providers + +------+ + | Care Senior Engineering Team Leader Name | Role | Phone [...] | | | | | Spondylolist | [place], [place] | [address] | | | | | [place] | [address] | Phone: | | | | | L4-L5 level | Phone: | [phone] | | | | | Bilateral | [phone] | Fax: | | | | | lumbar | Fax: | [phone] | | | | | radiculopath | [phone] | | | | | | y [...] | | [place], [place] | [place] [address] | Spondylolisthesis | | | | [address] | [phone] | at L4-L5 level; | | | | [phone] | | Bilateral lumbar | | | [...] FERRER | | | | | | [place] [address] | | | | | | [phone] | | | | | | | | +--------+ + + + + | 05/17/ | Office | Cardiology | Jeniffer Haines | | | 2019 | Visit | | [address] | | | | | | [address] | | | | | | [place] [address] | | | | | | [phone] | | | | | | | [...]
--- OUTSIDE RECORDS SUMMARY | ~2020-02-17 | XMS | Encounter Summary ---
Demographics + + + | Address | [address] | | | [place] [address] | + + + | Home Phone [...] Providers + +------+ + | Care Manager Lpn Name | Role | Phone | + [...] | | | [place], [place] | [place] [address] | | | | | [address] | [phone] | | | | | [phone] | | | +--------+ + + + [...] | | 2019 | | | [address] [facility] | | | | | | [place] [address] | | | | | | [phone] | | | | | | | | +--------+ + + + + | 05/17/ | Office | Cardiology | Jeniffer Haines | | | 2019 | Visit | | [address] | | | | | | [address] | | | | | | [place] [address] | | | | | | [phone] | | | | | | | | +--------+ + + + + documented as of this encounter Visit Diagnoses Not on filedocumented in this encounter"
--- OUTSIDE RECORDS SUMMARY | ~2020-02-17 | XMS | Encounter Summary ---
Demographics + + + | Address | [address] | | | [place] [address] | + + + | Home Phone [...] Team Providers + +------+ + | Care Reservation Clerk Name | Role | Phone | [...] | Telephone | [address] [place] | Gregro Mccord MD | Results, Imaging | | 2017 | | GASTROENTEROLOGY | [address], [place] | ([facility]) | | | | [address] [place] | [address] [place], [place] | | | | | [address] [place], [place] | [address] | | | | | [address] | | | | | | [phone] | | | +--------+ + + + [...] [address] | | | | | | [place] [address] | | | | | | [phone] | | | | | | | | +--------+ + + + + | 05/17/ | Office | Cardiology | Jeniffer Haines | | | 2019 | Visit | | [address] | | | | | | [address] | | | | | | [place] [address] | | | | | | [phone] | | | | | | | | +--------+ + + + + documented as of this encounter Visit Diagnoses Not on filedocumented in this encounter"
--- OUTSIDE RECORDS SUMMARY | ~2020-02-17 | XMS | Encounter Summary ---
Demographics + + + | Address | [address] | | | [place] [address] | + + + | Home Phone [...] | Author | [facility] | | | and [place] | + + + | Organization | [facility] | | [...] Team Providers + +------+ + | Care Timber Bucker Name | Role | Phone | + [...] [address] | | | | | | [facility] | | | | | | [address] | | | | | | [phone] | | | +--------+ + + + [...] | | | | | [place] [address] | | | | | | [phone] | | | | | | | | +--------+ + + + + | 05/17/ | Office | Cardiology | Jeniffer Haines | | | 2019 | Visit | | [address] | | | | | | [address] | | | | | | [place] [address] | | | | | | [phone] | | | | | | | | +--------+ + + + + documented as of this encounter Visit Diagnoses + + | Diagnosis | + + | Other screening mammogram | + + documented in this encounter"
--- OUTSIDE RECORDS SUMMARY | ~2020-02-17 | XMS | Encounter Summary ---
Demographics + + + | Address | [address] | | | [place] [address] | + + + | Home Phone [...] + +------+ + | Care Embedded Software Developer Name | Role | Phone | [...] [address] | | | | | [address] [place], [place] | [address] | | | | | [address] | [place] [address] | | | | | [phone] | [phone] | | | | | | | [...] | | | | | [place] [address] | | | | | | [phone] | | | | | | | | +--------+ + + + + | 05/17/ | Office | Cardiology | Jeniffer Haines | | 2019 | Visit | | [address] | | | | | | [address] | | | | | | [place] [address] | | | | | | [phone] | | | | | | | | +--------+ + + + + documented as of this encounter Visit Diagnoses Not on filedocumented in this encounter"
--- OUTSIDE RECORDS SUMMARY | ~2020-02-17 | XMS | Encounter Summary ---
Demographics + + + | Address | [address] | | | [place] [address] | + + + | Home Phone [...] + | Author | [facility] | | | and [place] | + + + | Organization | [facility] | | | [...] Team Providers + +------+ + | Care Thoracic Surgeon Name | Role | Phone | + [...] | | | | region, with | [place], | [address] | | | | | neurogenic | [place] [address] | [address] [place], | | | | | claudication | Phone: | [place] | | | | | | [phone] | [address] | | | | | | Fax: | Phone: | | | | | | [phone] | [phone] | | | | | | | Fax: | | | | | | | [phone] | + + + + + + [...] + + | // | Telephone | [facility] | [place] | Referral | | 2020 | | [place] [address] | MD [place] [address] | | | | | [address] [place], [place] | [place] | | | | | [address] | [place] [address] | | | | | [phone] | [phone] | | | | | | | [...] calling to request a referral to a senior accounts payable specialist. She is okay with coming to [facility]. documented in this encounter Plan of Treatment +--------+ + + + + | Date | Type | Specialty | Care Team | Description | +--------+ + + + + | 02/21/ | Appointment | Pain Medicine | Sam Samuels DO | | 2019 | | | [address] | | | | | | [place] [address] | | | | | | [phone] | | | | | | | | +--------+ + + + + | 05/17/ | Office | Cardiology | Jeniffer Haines | | 2019 | Visit | | [address] | | | | | | [address] | | | | | | [place] [address] | | | | | | [phone] | | | | | | | [...]
--- OUTSIDE RECORDS SUMMARY | ~2020-02-17 | XMS | Clinical Summary ---
Demographics + + + | Address | [address] | | | [place] [address] | + + + | Home Phone [...] Team Providers + +------+ + | Care Scrap Iron Loader Name | Role | Phone | + +------+ + PCP | Unavailable | + +------+ + Source Comments FIORELLA is fully live on both [facility] and [facility] Allergies Not on File Medications Not [...] PCV13) | | | | + + +-------+ + | Influenza (Flu) | | | | | vaccination (#1) | 9 | | | + + +-------+ + [...] +------+ | [employer]ARE | MODA | [id number] | Effect | [phone] | [address] | PPO | | | MEDICA | | nestor | 4 | [address] | | | | RE PPO | | for | | [place], | | | | | | all | | [place] [address] | | | | | | dates [...] | 1936 | [phone] | [place] [address] | | | aissatou | | | 3 (Home) | | + +--------+ +--------+ + +"
--- OUTSIDE RECORDS SUMMARY | ~2020-02-17 | XMS | Encounter Summary ---
Demographics + + + | Address | [address] | | | [place] [address] | + + + | Home Phone [...] Team Providers + +------+ + | Care Global Program Director Name | Role | Phone | [...] | | | | neurogenic | [place] [address] | [address] | | | | | claudication | Phone: | Phone: | | | | | Procedures | [phone] | [phone] | | | | | MRI Lumbar | Fax: | Fax: | | | | | Spine wo | [phone] | [phone] | | | | | Contrast | [...] | | | [facility] | John, | [place], [place] | | | | | Procedures | [place] | [address] Phone: | | | | | NEW PATIENT | [address] | [phone] | | | | | | Phone: | Fax: | | | | | | [phone] | [phone] | | | | | | Fax: | | | | | | | [phone] | | + +--------+ + + + [...] region, with | | | | BLVD [place], [place] | [address] | neurogenic | | | | [address] | [place] [address] | claudication | | | | [phone] | [phone] | (Primary Dx); Status | | | [...] evaluation, if indicated, near her home in [place]. Return if symptoms worsen or fail to [...] FERRER | | | | | | [place] [address] | | | | | | [phone] | | | | | | | | +--------+ + + + + | 05/17/ | Office | Cardiology | Jeniffer Haines | | | 2019 | Visit | | [address] | | | | | | [place] | | | | | | [place] [address] | | | | | | [phone] | | | | | | | [...]
--- OUTSIDE RECORDS SUMMARY | ~2020-02-17 | XMS | Encounter Summary ---
Demographics + + + | Address | [address] | | | [place] [address] | + + + | Home Phone [...] Team Providers + +------+ + | Care Practice Performance Manager Name | Role | Phone | [...] + + | 11/16/ | Office | [facility] | Jeniffer Haines | Essential | | 2020 | Visit | CARDIOLOGY [place] | [address] | hypertension | | | | [address] | [place] | (Primary Dx); Mixed | | | | [address] | [place] [address] | hyperlipidemia; Mild | | | | [place] | [phone] | aortic stenosis by | | | | [address] | | prior | | | | [phone] | | echocardiogram; | | | | [...] Rarely due to poor balance. Lives in [place] since 2018. 2 d aughters. Outpatient Medications [...] mg by mouth Twice daily as needed. BT-Iwjhntdqin-Gaonmsgwqnhppx (FOLBIC PO) Take 1 capsule by mouth [...] ( [facility]) MISC Take by mouth. 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 Aortic valve trileaflet, mildly calcific, mild [...] ST-T wa ve abnormalities. Rate 65 bpm, MA 172 ms, QRS 84 ms, QTC 428 ms, tracing personally reviewe d by mi LABS Labs: 05/11/2019 CMP: Sodium 133, potassium [...] for continuity of care purp bari [facility] documented in t his encounter Plan of Treatment +--------+ + + + + | Date | Type | Specialty | Care Team | Description | +--------+ + + + + | 02/21/ | Appointment | Pain Medicine | Sam Samuels, | | | 2019 | | | [address] [facility] | | | | | | [place] [address] | | | | | | [phone] | | | | | | | | +--------+ + + + + | 05/17/ | Office | Cardiology | Jeniffer Haines | | | 2019 | Visit | | [address] | | | | | | [place] | | | | | | [place] [address] | | | | | | [phone] | | | | | | | [...]
[~2020-02-17 13:22] MED LIST changes: +FOLBIC TABLET1 EACH PO; +PROTONIX40 MG PO; +ZOFRAN4 MG PO
--- OUTSIDE RECORDS SUMMARY | 2020-02-17 13:26 | XMS ---
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 TOTAL 8 NOTE: Visits indicate total known visits. ED/UCC VISIT TRACKING (12 MO.) 02/17/2020 13:23 [facility] [place] TYPE: Emergency COMPLAINT: - SYNCOPE EPISODES, SHAKY LEGS 02/11/2020 19:14 [facility] TYPE: Emergency COMPLAINT: - ABDOMINAL PAIN DIAGNOSES: - Allergy status to sulfonamides status - Hypothyroidism, unspecified - Essential (primary) hypertension - Type 2 diabetes mellitus with diabetic neuropathy, unspecifie - Other chcf (current) drug therapy - Pure hypercholesterolemia, unspecified - Allergy status to other antibiotic agents status - Allergy status to penicillin - Epigastric pain 05/11/2019 16:18 [facility] TYPE: Emergency COMPLAINT: - CHEST PAIN DIAGNOSES: - Allergy status to other antibiotic agents status - Type 2 diabetes mellitus without complications - Hypothyroidism, unspecified - Chest pain, unspecified - Pure hypercholesterolemia, unspecified - Allergy status to other drugs, medicaments and biological sub - Allergy status to penicillin - 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 - Allergy status to sulfonamides status 05/05/2019 13:21 [facility] TYPE: Emergency COMPLAINT: - FALL DIAGNOSES: - longterm (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 - Hypothyroidism, unspecified - Strain of muscle, fascia and tendon at neck level, initial en - Type 2 diabetes mellitus with diabetic neuropathy, unspecifie - Other chcf (current) drug therapy - Pure hypercholesterolemia, unspecified [...] tract infection, site not specified - Other chcf (current) drug therapy - Allergy status to [...] drugs, medicaments and biological sub - 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 - Personal history of other malignant neoplasm of skin - Altered mental status, unspecified - Allergy status to other antibiotic agents status 03/23/2019 20:56 [facility] TYPE: Emergency COMPLAINT: - HIGH BLOOD PRESSURE DIAGNOSES: - Allergy status to penicillin - Allergy status to sulfonamides status - Other chcf (current) drug therapy - Hypothyroidism, unspecified - Allergy status to other antibiotic agents status - Essential (primary) hypertension - petroleum terminal plant operator (current) use of aspirin - Personal history [...] status to other antibiotic agents status - longterm (current) use of opiate analgesic - Allergy status to other drugs, medicaments and biological sub - Anemia, unspecified - Nonrheumatic aortic (valve) stenosis - Allergy status to penicillin - Other intervertebral disc degeneration, lumbar region - Allergy status to sulfonamides status - Other chcf (current) drug therapy - Hypothyroidism, unspecified - Allergy status to sulfonamides status - Gastro-esophageal reflux disease without esophagitis - longterm (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 - longterm (current) use of opiate analgesic - Other intervertebral disc degeneration, lumbar region - Allergy status to other antibiotic agents status - Essential (primary) hypertension - Spondylolisthesis, lumbar region - Other pulmonary embolism without acute cor pulmonale - Stress incontinence (female) (male) - Fracture of unspecified part of neck of left femur, subsequen - Allergy status to penicillin - Other chcf (current) drug therapy - Type 2 diabetes mellitus with diabetic polyneuropathy - longterm (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 - Spondylolisthesis, lumbar [...] drugs, medicaments and biological sub - 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 - Spondylolisthesis, lumbar region - Hypo-osmolality and hyponatremia - Type 2 diabetes mellitus with diabetic polyneuropathy - Hypo-osmolality and hyponatremia - Gastro-esophageal reflux disease without esophagitis - Nonrheumatic aortic (valve) stenosis - Gastro-esophageal reflux disease without esophagitis - Other intervertebral disc degeneration, lumbar region - Anemia, unspecified - 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
[2020-02-17] MEDS ORDERED: KEFLEX500 MG PO (18:14)
--- NOTE | 2020-02-17 22:33 | EKG ---
[facility] [address] [place] [address] Signed Normal sinus rhythm Normal ECG When compared with ECG of 11-FEB-2020 19:23, No significant change was found Confirmed by JOSE DURAN MD ([id number]) on 02/17/2020 10:33:03 PM Electronically Signed By: JOSE DURAN MD 02/17/20 223 PATIENT NAME: LUCHO GRANT Electrocardiogram DATE OF : 31 PHYSICIAN: JOSE DURAN MD REPORT #: [id number] REPORT IS CONFIDENTIAL AND NOT TO BE RELEASED WITHOUT AUTHORIZATION
== END 2020-02-17 18:36 | disposition home or self-care (01) ==
LOC: ED 13:22
DX: R55 Syncope and collapse (principal); N39.0 Urinary tract infection, site not specified; E11.9 Type 2 diabetes mellitus without complications; E03.9 Hypothyroidism, unspecified; Z88.0 Allergy status to penicillin; Z88.8 Allergy status to other drugs, medicaments and biological substances; Z88.1 Allergy status to other antibiotic agents; Z79.899 Other long term (current) drug therapy
CPT/HCPCS: 80053; 81001; 83735; 84484; 85025; 87077; 87088; 87186; 93005; 93010; 99284-25; J7030

== ENCOUNTER 2020-02-22 15:56 | Emergency (ER) | payer MEDICARE, MEDICAID ==
[~2020-02-22] VITALS: Ht 167.6 cm; Wt 72.6 kg
--- OUTSIDE RECORDS SUMMARY | ~2020-02-22 | XMS | Encounter Summary ---
Demographics + + + | Address | [address] | | | [place] [address] | + + + | Home Phone | | + + + | Preferred Language | Unknown | + + + | Marital Status | | + + + | Mormon Affiliation | 1077 | + + + | Race | White | + + + | Ethnic Group | Not or | + + + Author + + + | Author | [facility] | | | and [place] | + + + | Organization | [facility] | | | and [...] Team Providers + +------+ + | Care Digital Sales Director Name | Role | Phone | + +------+ + | Susan Leos | PCP | | | PA-C | | | + +------+ + Encounter Details +--------+ + + + + | Date | Type | Department | Care Team | Description | +--------+ + + + + | 02/13/ | Orders Only | [facility] [place] | Bogdanowicz, | 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 [address] | [address] | disc disease), | | | | [address] | [address] | lumbar; | | | | [place], [place] | [place] [address] | Spondylolisthesis at | | | | [address] | [phone] | L4-L5 level; | | | | [phone] | | Bilateral lumbar | | | | | | radiculopathy | +--------+ + + + + Social [...] Description | +--------+---------+ + + + | 05/17/ | Office | Cardiology | Jeniffer Haines | | | 2019 | Visit | | [address] | | | | | | [place] | | | | | | [place] [address] | | | | | | [phone] | | | | | | | | +--------+---------+ + + + documented as of this encounter Visit Diagnoses + + | Diagnosis | + + | DDD (degenerative disc disease), lumbar Degeneration of lumbar or lumbosacral | | intervertebral disc | + + | Spondylolisthesis at L4-L5 level | + + | Bilateral lumbar radiculopathy | + + documented in this encounter"
--- OUTSIDE RECORDS SUMMARY | ~2020-02-22 | XMS | Encounter Summary ---
Demographics + + + | Address | [address] | | | [place] [address] | + + + | Home Phone | | + + + | Preferred Language | Unknown | + + + | Marital Status | | + + + | Presybeterian Affiliation | 1077 | + + + | Race | White | + + + | Ethnic Group | Not or | + + + Author + + + | Author | [facility] | | | and [place] | + + + | Organization | [facility] | | | [...] Team Providers + +------+ + | Care Tube Sizer Operator Name | Role | Phone | [...] [place] | | | | | | [address] | | | | | | [phone] | | | +--------+ + + + [...] [place] | | | | | | [place] [address] | | | | | | [phone] | | | | | | | | +--------+---------+ + + + documented as of this encounter Visit Diagnoses Not on filedocumented in this encounter"
--- OUTSIDE RECORDS SUMMARY | ~2020-02-22 | XMS | Encounter Summary ---
Demographics + + + | Address | [address] | | | [place] [address] | + + + | Home Phone | | + + + | Preferred Language | Unknown | + + + | Marital Status | | + + + | Sikhism Affiliation | 1077 | + + + | Race | White | + + + | Ethnic Group | Not or | + + + Author + + + | Author | [facility] | | | and [place] | + + + | Organization | [facility] | | | and [...] Team Providers + +------+ + | Care Laboratory Analyst Name | Role | Phone | + [...] + + + | Closed | | | Diagnoses | Nan | [facility] | | | | | Spinal | Mark Foley MD | HOSPITAL | | | | | stenosis, | [address] | [address] | | | | | lumbar | [address] | [address] | | | | | region, with | [place], | [place], [place] | | | | | neurogenic | [place] [address] | [address] | | | | | claudication | Phone: | Phone: | | | | | Procedures | [phone] | [phone] | | | | | MRI Lumbar | Fax: | Fax: | | | | | Spine wo | [phone] | [phone] | | | | | Contrast | | | +--------+--------+ + + + + Reason for Visit + + + | Reason | Comments | + + + | Follow-up | left hip | + + + Evaluate & Treat [...] | | | | | from | [address] | [address] | | | | | [place] at | [address] | [address] | | | | | [facility] | John, | [place], [place] | | | | | Procedures | [place] | [address] Phone: | | | | | NEW PATIENT | [address] | [phone] | | | | | | Phone: | Fax: | | | | | | [phone] | [phone] | | | | | | Fax: | | | | | | | [phone] | | + +--------+ + + + + Encounter Details +--------+---------+ + + + | Date | Type | Department | Care Team | Description | +--------+---------+ + + + | 08/14/ | Office | [facility] | [place] | Spinal stenosis, | | 2020 | Visit | [facility] [address] | MD Alaina [address] | lumbar region, with | | | | BLVD [place], [place] | [address] | neurogenic | | | | [address] | [place] [address] | claudication | | | | [phone] | [phone] | (Primary Dx); Status | | | | | | post total | | | | | | replacement of left | | | | | | hip | +--------+---------+ + + + Social History [...] + + | Pulse | 57 | 08/15/2019 1:11 PM | | | | | PST | | + + + + + | Temperature | - | - | | + + + + + | Respiratory Rate | - | - | | + + + + + | Oxygen Saturation | 97% | 08/15/2019 1:11 PM | | | | | PST | | + + + + + | Inhaled Oxygen | - | - | | | Concentration | | | | + + + + + | Weight | 70.3 kg (155 lb) | 08/15/2019 1:11 PM | | | | | PST | | + + + + + | Height | 167.6 cm (5' 6") | 08/15/2019 1:11 PM | | | | | PST | | + + + + + | Body Mass Index | 25.02 | 08/15/2019 1:11 PM | | | | | PST | | + + + + + documented in this encounter Progress Notes Mark [place] MD - 08/15/2019 1:15 PM PST 08/15/2019 HPI An 83-year-old female presents about 5 months out from a left total hip arthroplasty, compl icated by a postoperative DVT and pulmonary embolism secondary to prophylaxis noncompliance, primarily due to misunderstanding. She is not currently taking any blood thinners. She has now complaints regarding her left hip. She does have some worrisome complaints of continued imbalance and saddle anesthesia that seems to be intermittent but quite common. She also rep orts a sensation of her legs having weakness occasionally that causes her to almost fall. Mason jones continues to use a walker and a cane for balance, as she continues to have balance issues. She does report chronic incontinence but no significant paralysis or changes in her inconti nent symptoms. Vital Signs Vitals: 08/15/19 1311 Pulse: 57 PainSc: 2 PainLoc: Hip Physical Exam Vital signs reviewed. GENERAL: well developed and well nourished. HEAD: normocephalic and atraumatic. EYES: PERRL. RESPIRATORY: effort normal. GI: soft. SKIN: Capillary refill less then 2 seconds. NEUROLOGICAL: alert and oriented x 3. She appears to be neurovascularly intact. PSYCHIATRIC: normal mood and normal affect. Ortho Exam Left Hip Exam Muscle Strength: Abduction: 5/5. Flexion: 5/5. Comments: Well-healed left hip incision. Assessment and Plan ICD-10-CM ICD-9-CM 1. Spinal stenosis, lumbar region, with neurogenic claudication M48.062 724.03 MRI Lumbar S pine wo Contrast 2. Status post total replacement of left hip Z96.642 V43.64 Plan Doing well after left total hip arthroplasty. Somewhat concerned regarding her intermittent weakness and saddle anesthesia. She does have some degenerative changes in the lumbar spine . I will order an MRI to rule out significant stenosis causing these symptoms, and I will ma ke appropriate re-referrals at that time. She is interested in seeking a spinal evaluation, if indicated, near her home in [place]. Return if symptoms worsen or fail to improve, for after studies performed. No notes on file Documented by Rick. documented in this encounter Plan of Treatment +--------+---------+ + + + | Date | Type | Specialty | Care Team | Description | +--------+---------+ + + + | 05/17/ | Office | Cardiology | Jeniffer Haines | | | 2019 | Visit | | [address] | | | | | | [place] | | | | | | [place] [address] | | | | | | [phone] | | | | | | | | +--------+---------+ + + + + +---------+--------+ + + | Name | Type | Priori | Associated Diagnoses | Order Schedule | | | | ty | | | + +---------+--------+ + + | MRI Lumbar Spine wo | Imaging | Routin | Spinal stenosis, | Expected: | | Contrast | | e | lumbar region, with | 08/15/2019, Expires: | | | | | neurogenic | 08/14/2020 | | | | | claudication | | + +---------+--------+ + + documented as of this encounter Visit Diagnoses + + | Diagnosis | + + | Spinal stenosis, lumbar region, with neurogenic claudication - Primary | + + | Status post total replacement of left hip | + + documented in this encounter
--- OUTSIDE RECORDS SUMMARY | ~2020-02-22 | XMS | Encounter Summary ---
Demographics + + + | Address | [address] | | | [place] [address] | + + + | Home Phone | | + + + | Preferred Language | Unknown | + + + | Marital Status | | + + + | Jain Affiliation | [id number] | + + + | Race | White | + + + | Ethnic Group | Not or | + + + Author + + + | Author | [facility] | | | and [place] | + + + | Organization | [facility] | | | [...] Team Providers + +------+ + | Care Pipe Coremaker Name | Role | Phone | + [...] | Closed | | | Diagnoses | | OP ST | | | | | DDD | Bogdanowicz, | T[place] | | | | | (degenerativ | [facility], | [facility] | | | | | e disc | PA-C [address] | | | | | disease), | [address], | [address]VE | | | | | lumbar | [address] | [place], [place] | | | | | Spondylolist | [place] | [address] | | | | | hesis at | [address] | Phone: | | | | | L4-L5 level | Phone: | [phone] | | | | | Bilateral | [phone] | Fax: | | | | | lumbar | Fax: | [phone] | | | | | radiculopath | [phone] | | | | | | y | | | | | | | Procedures | | | | | | | MRI Lumbar | | | | | | | Spine wo | | | | | | | Contrast | | | +--------+--------+ + + + + Reason for Visit + + + | Reason | Comments | + + + | Back Problem | Radiating to Feet Bilaterally | + + + Evaluate & Treat (Routine) +--------+--------+ + + + + | Status | Reason | Specialty | Diagnoses / | Referred By | Referred To | | | | | Procedures | Contact | Contact | +--------+--------+ + + + + | Closed | | Physical | Diagnoses | Deric, | Dereje, | | | | Medicine and | Other | Susan | Kali Savage MD | | | | Rehabilitatio | intervertebr | Paty, | [address] | | | | n | al disc | PA-C [address] | | | | | displacement | [address] | [place], [place] | | | | | , lumbar | Ave | [address] Phone: | | | | | [place] | [place] | [phone] | | | | | | [place] | Fax: | | | | | | [address] | [phone] | | | | | | Phone: | | | | | | | [phone] | | | | | | | Fax: | | | | | | | [phone] | | +--------+--------+ + + + + Encounter Details +--------+---------+ + + + | Date | Type | Department | Care Team | Description | +--------+---------+ + + + | 02/03/ | Office | [facility] | Ray, | DDD (degenerative | | 2016 | Visit | PHYSIATRY [address] | KYA Simon [address] | disc disease), | | | | [address] | [address] | lumbar (Primary Dx); | | | | [place], [place] | [place] [address] | Spondylolisthesis | | | | [address] | [phone] | at L4-L5 level; | | | | [phone] | | Bilateral lumbar | | | | | | radiculopathy | +--------+---------+ + + + Social History [...] + + + | Blood Pressure | 129/62 | 02/04/2016 12:38 PM | | | | | PDT | | + + + + + | Pulse | 60 | 02/04/2016 12:38 PM | | | | | PDT | | + + + + + | Temperature | - | - | | + + + + + | Respiratory Rate | 16 | 02/04/2016 12:38 PM | | | | | PDT | | + + + + + | Oxygen Saturation | - | - | | + + + + + | Inhaled Oxygen | - | - | | | Concentration | | | | + + + + + | Weight | 76.3 kg (168 lb 3.2 | 02/04/2016 12:38 PM | | | | oz) | PDT | | + + + + + | Height | 170.2 cm (5' 7") | 02/04/2016 12:38 PM | | | | | PDT | | + + + + + | Body Mass Index | 26.34 | 02/04/2016 12:38 PM | | | | | PDT | | + + + + + documented in this encounter Patient Instructions Patient Instructions Aurora Bell PA-C - 02/04/2016 12:59 PM PDT1) Please get MRI - possible spinal stenosis; when you are done getting this in [facility], please call our offi ce and ask for MRI results Spinal Stenosis: Stenosis refers to the narrowing of the spinal cord. This most often occurs with age and generative changes of the spine. Narrowing of the spinal cord causes compression and inflam mation of nerves in the lower back and can cause numbness, pain, and weakness in the back, b uttocks and legs. You may notice you have more pain with standing and walking. It feels be tter to walk more bent over at the waist, while pushing a grocery cart or walker. You get r elief with sitting down. Treatment includes pain medicine, gabapentin, transforaminal epidu ral steroid injections to help reduce swelling, physical therapy and surgery. Steroids are a very strong anti-inflammatory, this helps reduce pain by reducing swelling. Complications of steroids are bleeding, infection, and an increase of blood sugars if you are diabetic. intermediate school teacher risk can lead to osteoporosis which is why we limited the number of injections to 3 times per year. Epidural injections target the spinal stenosis by putting the steroid around the nerves that come out of the spine with hopes the steroid gets into t he region of the stenosis. The procedure is about 20 minutes long. You will lie on your marcelina k while x-rays are taken. Once the region is marked, it is numbed and then injected with st eroids. Spondylolisthesis: This is a medical term to describe slipping of one vertebra over the other. Typically due to a fracture of the pars interarticularis. Symptoms can be aching or cramping ow back bernardo n, worse with rotation and extension of the spine. Treatment includes medications to includ e anti-inflammatories, physical therapy, either facet injections or epidural injections if y ou are experiencing more leg symptoms. Spondylolisthesis often requires a fusion surgery if all other conservative therapies fail. Degenerative Disc Disease (DDD): Degenerative Disc Disease is a term used to describe normal wear and tear of the spine fernando t occurs with age. The discs between the vertebras (bones) are made of fluid and cartilage that allows you to flex, bend, and twist, they also absorbs shock. Throughout the years, th jesse discs can become flattened and the space between your vertebras become closer together. This can cause disc herniation, spinal stenosis, and arthritis, along with other complicati ons. documented in this encounter Progress Notes Aurora Bell PA-C - 02/04/2016 12:28 PM PDTFormatting of this note might be differe nt from the original. CHIEF COMPLAINT: Chief Complaint Patient presents with Back Problem Radiating to Feet Bilaterally HISTORY OF PRESENT ILLNESS: The patient is a 80 y.o. female being seen today for complaint s of bilateral feet discomfort. She reports she has been dealing with this for the past few months. She reports her bilateral feet and ankles feel like "jello" and with standing she cannot feel them and her legs feel like she is going to collapse. Since the symptoms began, she has noticed that symptoms have been worsening. She describes the pain as a aching, numbing and tingling feeling. She rates the pain as moderate. Her symp toms worsen with standing and walking. Her symptoms improve with sitting down, pushing a ca rt, rest. She also reports to have a history of ischial tuberosity and has aching pain to h er buttocks region. She denies any low back pain. The patient does describe numbness of the bilateral feet and ankles but was told she has ne uropathy. She does report weakness of the legs with prolonged standing and sitting. She d oes not have bowel and bladder dysfunction. She does not have saddle anesthesia. Treatments for these complaints have included nothing to date. She takes gabapentin for he r neuropathy but doesn't see a difference. She continues to walk daily. Patient's medications, allergies, past medical, surgical, social and family histories were reviewed and updated as appropriate. PAST MEDICAL HISTORY: Past Medical History Diagnosis Date Other intervertebral disc displacement, lumbar region HTN (hypertension) Hypothyroidism Diabetes mellitus (HCC) Skin cancer GERD (gastroesophageal reflux disease) Peripheral neuropathy Macular degeneration Aortic stenosis DDD (degenerative disc disease), lumbar 02/04/2016 Spondylolisthesis at L4-L5 level 02/04/2016 Bilateral lumbar radiculopathy 02/04/2016 PAST SURGICAL HISTORY: Past Surgical History Procedure Laterality Date Tonsillectomy 1938 Tailbone 1973 broken, partial removal Cystocele repair 1972 Colonoscopy 2003; 2009; 2011 polyp's removed Partial hysterectomy 1972 Rectocele repair 1991 CURRENT MEDICATIONS: Current Outpatient Prescriptions Medication Sig Dispense Refill atenolol (TENORMIN) 25 mg tablet Take 25 mg by mouth Daily. Calcium Carb-Cholecalciferol (CALCIUM 500 + D3 PO) Take 1 tablet by mouth 2 times daily . docusate sodium (COLACE) 100 mg capsule Take 100 mg by mouth 2 times daily. gabapentin (NEURONTIN) 300 mg capsule Take 300 mg by mouth 3 times daily. Garlic 1000 MG CAPS Take 1 tablet by mouth Daily. HYDROcodone-acetaminophen (NORCO) 5-325 mg per tablet Take 1 tablet by mouth every 6 ho urs as needed for Pain. levothyroxine (SYNTHROID, LEVOTHROID) 100 mcg tablet Take 100 mcg by mouth every mornin g (before breakfast). losartan (COZAAR) 50 mg tablet Take 50 mg by mouth Daily. Multiple Vitamin (THERAGRAN PO) Take 1 tablet by mouth Daily. Multiple Vitamins-Minerals ([facility]) MISC Take by mouth. [place]-3 Fatty Acids (PRO NUTRIENTS OMEGA 3 PO) Take 1 tablet by mouth Daily. omeprazole (PRILOSEC) 20 mg capsule Take 20 mg by mouth every morning (before breakfast ). Psyllium (METAMUCIL PO) Take by mouth Daily. No current facility-administered medications for this visit. ALLERGIES: Allergies Allergen Reactions Erythromycin Hives and Rash Levofloxacin Hives and Rash Penicillins Hives and Rash Sulfa Antibiotics Hives and Rash Verapamil Hcl Er Hives and Rash SOCIAL HISTORY: The patient reports that she has never smoked. She has never used smokeless tobacco. She r eports that she drinks alcohol. She reports that she does not use illicit drugs. FAMILY HISTORY: Family History Problem Relation Age of Onset Heart disease Brother Osteoporosis Mother Stroke Mother 95 Early Father TB Tuberculosis Father Early Brother 21 MVA Cancer Brother SKIN Heart disease Brother Muscle Disease Daughter guillain barre syndrome No Known Problems Paternal Grandfather No Known Problems Paternal Grandmother No Known Problems Maternal Grandfather Stroke Maternal Grandmother No Known Problems Paternal Aunt Stroke Maternal Uncle 91 Stroke Maternal Uncle 96 Heart disease Maternal Uncle Diabetes Brother REVIEW OF SYSTEMS: GENERALLY: No fever, chills, no night sweats, no weight gain, no weight loss, no anemia, no fatigue. EYES: + eye problems, no impaired sight, + eye glasses/contacts, no eye injury, + double v ision, no transient blindness. EARS, NOSE, THROAT and MOUTH: No change in sense taste/smell, no hearing difficulty, no ri nging in ears, no drainage from ears, no ear injury, no dizziness, no voice change, no diffi culty swallowing, no snoring, no sleep apnea/CPAP, + sinus trouble, + dental work. NEUROMUSCULAR: No numbness/pain of arms, + numbness/pain of legs, + awake with numbness/pa in, no weakness, no muscle aching, + coordination difficulty, + change in walk, no head inju ry, no neck injury, no back injury, + pain in neck, + pain in back, no stroke, no fainting s pells, no loss of consciousness, no tremor/shaking, no seizures, no headaches, no migraines, + memory loss, no speech difficulty, no confusion, no numbness of face. PSYCHIATRIC: +depression, + difficulty sleeping, + anxiety, no bipolar disorder. CARDIOVASCULAR/PULMONARY: No heart attack, + heart murmur, no fluttering heart, no shortne ss of breath, no cough, no Tuberculosis, no chest pain, no swelling ankles, no bloody coughi ng, no asthma, no COPD/emphysema. GASTROINTESTINAL: No bowel disease, no nausea/vomiting, no rectal bleeding/hemorroids, + c onstipation, no fecal/stool incontinence, no liver/gallbladder disease, no abdominal pain. KIDNEY DISEASE: + frequent urination, no painful/difficult with urination,+ urinary inconti nence, no bladder problems, no impotence, no irregular period, no vaginal discharge. ENDOCRINE: + diabetes, + thyroid disease, no osteoporosis/osteopenia, no drainage from frannie sts. INTEGUMENTARY/SKIN: No lump in breasts, + skin disease or skin changes, no rash/itch. HEMATOLOGIC: No enlarged lymph nodes, no ease or unusual bleeding, no cancer. RHEUMATOLOGIC: + joint pain/arthritis, no Rheumatoid Arthritis Other Disease or diagnosis: Bursitis in right butt cheek PHYSICAL EXAMINATION: Filed Vitals: 02/04/16 1238 PainSc: 0 - No pain There is no height on file to calculate BMI. GENERAL: The patient is well developed and well nourished. She does not appear uncomfortab le when seated. HEENT: HEAD/FACE: EYES: EARS: NASOPHARNYX: OROPHARNYX: Normocephalic and atraumatic. There are no areas of recent trauma. Normal sclerae without icterus. No drainage or tenderness. Clear without drainage. Clear without erythema. SKIN Limited skin exam shows no significant rashes or lesions. There are not scars in the lumbar region. CHEST: The patient is in no acute respiratory distress with unlabored respirations. HEART: There is not lower extremity edema. ABDOMEN: The patient is not overweight. NEUROLOGIC: The patient is awake, alert, and oriented to time, place, person. She follows simple and complex commands. Her speech is fluent. She comprehends speech well. She has no apparent deficits with short or terminal clerk memory. She has appropriate fund of knowledge Cranial nerves 2-12 appear grossly intact. Sensory exam does not show diminished sensation to light touch in the lower extremities. REFLEX: RIGHT LEFT PATELLAR 2+ 2+ ACHILLES 2+ 2+ MUSCULOSKELETAL There is no tenderness in the midline of the cervical or thoracic spine. T here is no major palpable deformity of the spine. Straight leg raise and slump-sit are negative. Sony's maneuver and impingement testing were negative for any groin pain. There was no tenderness to palpation over the greater tr ochanters or sacral sulci. The patient localized the majority of the pain to the bilateral calves, ankles and feet region. Lumbar facet loading was negative. Strength testing showed 5/5 strength throughout the lower extremities. The patient was able to heel and toe walk w ithout difficulty. There was no redness, effusion, warmth or joint line tenderness in the k nees or ankles. RADIOGRAPHIC REVIEW: The patient's imaging was reviewed in detail with the patient today during the visit. Lumb ar xray from 10/05/2015 shows lumbar DDD with spondylolisthesis of L4 on L5. ASSESSMENT: 1. DDD (degenerative disc disease), lumbar 2. Spondylolisthesis at L4-L5 level 3. Bilateral lumbar radiculopathy PLAN: 1. It sounds like the patient is suffering from lumbar spinal stenosis and due to the spon dylolisthesis of L4-L5 there is a good chance she has this pathology. I would like to get a lumbar MRI to further investigate this. 2. We discussed her neuropathy, she does not have diabetes. 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 I would like to get those records. 3. We discussed her gabapentin, she has been on this for sometime and cannot notice a diff erence. She is slowly tapering off this. 4. I will call her with MRI results, she would like to review them here in the office and then we can discuss treatment plan. ELECTRONICALLY SIGNED BY: Aurora Bell PA-C, 02/04/2016 CC: Susan Zamora documented in t his encounter Plan of Treatment +--------+---------+ + + + | Date | Type | Specialty | Care Team | Description | +--------+---------+ + + + | 05/17/ | Office | Cardiology | Jeniffer Haines | | | 2019 | Visit | | [address] | | | | | | [address] | | | | | | [place] [address] | | | | | | [phone] | | | | | | | | +--------+---------+ + + + + +---------+--------+ + + | Name | Type | Priori | Associated Diagnoses | Order Schedule | | | | ty | | | + +---------+--------+ + + | MRI Lumbar Spine wo | Imaging | Routin | DDD (degenerative | Expected: | | Contrast | | e | disc disease), | 02/04/2016, Expires: | | | | | lumbar | 02/04/2017 | | | | | Spondylolisthesis at | | | | | | L4-L5 level | | | | | | Bilateral lumbar | | | | | | radiculopathy | | + +---------+--------+ + + documented as of this encounter Procedures + +--------+ + + + | Procedure Name | Priori | Date/Time | Associated Diagnosis | Comments | | | ty | | | | + +--------+ + + + | NONINVASIVE VASC | | 02/16/2015 | | Results for this | | IMAGING - EXTERNAL | | 12:00 AM | | procedure are in the | | SCAN | | PDT | | results section. | + +--------+ + + + documented in this encounter Results NONINVASIVE VASC IMAGING - EXTERNAL SCAN (02/16/2015 12:00 AM PDT) + + + | Narrative | Performed At | + + + | Ordered by an | | | unspecified provider. | | + + + documented in this encounter Visit Diagnoses + + | Diagnosis | + + | DDD (degenerative disc disease), lumbar - Primary Degeneration of lumbar or | | lumbosacral intervertebral disc | + + | Spondylolisthesis at L4-L5 level | + + | Bilateral lumbar radiculopathy | + + documented in this encounter
--- OUTSIDE RECORDS SUMMARY | ~2020-02-22 | XMS | Encounter Summary ---
Demographics + + + | Address | [address] | | | [place] [address] | + + + | Home Phone | | + + + | Preferred Language | Unknown | + + + | Marital Status | | + + + | Voodoo Affiliation | 1077 | + + + | Race | White | + + + | Ethnic Group | Not or | + + + Author + + + | Author | [facility] | | | and [place] | + + + | Organization | [facility] | | | and [...] Team Providers + +------+ + | Care Stove Installer Name | Role | Phone | + +------+ + | Susan Leos | PCP | | | PA-C | | | + +------+ + Reason for Visit + +--------+ + | Reason | Onset | Comments | | | Date | | + +--------+ + | Results, Imaging | 11/04/ | [facility] | | | 2016 | | + +--------+ + Encounter Details +--------+ + + + + | Date | Type | Department | Care Team | Description | +--------+ + + + + | 11/04/ | Telephone | [facility] [place] | Gregor Mccord MD | Results, Imaging | | 2017 | | GASTROENTEROLOGY | [address], [place] | ([facility]) | | | | [address] [place] | [address] [place], [place] | | | | | [address] [place], [place] | [address] | | | | | [address] | | | | | | [phone] | | | +--------+ + + + [...] Telephone Encounter - Sonali Garcia RN - 11/04/2016 10:41 AM PDTNotified patient th at Dr [facility] looked ok. No sign of cancer of the common bile duct. She reports she is doing well , no GI symptoms. Electronically sig rajan by Sonali Garcia RN at 11/04/2016 10:47 AM PDTdocumented in this encounter Plan of Treatment +--------+---------+ + + + | Date | Type | Specialty | Care Team | Description | +--------+---------+ + + + | 05/17/ | Office | Cardiology | Jeniffer Haines | | | 2019 | Visit | | [address] | | | | | | [address] | | | | | | [place] [address] | | | | | | [phone] | | | | | | | | +--------+---------+ + + + documented as of this encounter Visit Diagnoses Not on filedocumented in this encounter"
--- OUTSIDE RECORDS SUMMARY | ~2020-02-22 | XMS | Encounter Summary ---
Demographics + + + | Address | [address] | | | [place] [address] | + + + | Home Phone [...] + + + | Author | [facility] | | | and [place] | + + + | Organization | [facility] | | [...] Team Providers + +------+ + | Care Geography Professor Name | Role | Phone | + +------+ + | Susan Leos | PCP | | | PA-C | | | + +------+ + Encounter Details +--------+ + + + + | Date | Type | Department | Care Team | Description | +--------+ + + + + | 03/14/ | [place] | [facility] | [place] | Left hip pain | | 2019 | Encounter | [facility] [address] | M, MD [address] | | | | | [address] | [address] | | | | | [place], [place] | [place] [address] | | | | | [address] | [phone] | | | | | [phone] | | | +--------+ + + + [...] 10 | Daily. | | | | 0 | | MG liqui-gel | | | [...] | | | | 0 | | ([facility]) | | | | | | | MISC | | | | | | + + + +---------+ + + | [place]-3 Fatty | Take 1 tablet by | [...] [address] | | | | | | [facility] [address] [address] | | | | | | [phone] | | | | | | | [...]
--- OUTSIDE RECORDS SUMMARY | ~2020-02-22 | XMS | Encounter Summary ---
Demographics + + + | Address | [address] | | | [place] [address] | + + + | Home Phone | | + + + | Preferred Language | Unknown | + + + | Marital Status | | + + + | Confucianism Affiliation | 1077 | + + + | Race | White | + + + | Ethnic Group | Not or | + + + Author + + + | Author | [facility] | | | and [place] | + + + | Organization | [facility] | | | [...] Team Providers + +------+ + | Care Professional Organizer Name | Role | Phone | + [...] | | | | | | | [place] ERCP DX | | | | | [...] + + | 09/26/ | Surgery | [facility] | Gregor Mccord MD | ERCP | | 2017 | | MED CTR MP INTRA OP | [address], [place] | | | | | [address] | [address] | | | | | [place] | [address] | | | | | [address] | | | | | | [phone] | | | +--------+---------+ + + + [...] other blood-thinning medicines (anticoagulants) until your herlinda islvestre says it s OK. Your provider may [...] or severe belly or abdominal pain Fever [id number] (37.7C) or chills Upset stomach (nausea) and vomiting Black or tarry stools Date Last Reviewed: 11/25/201419991627-2941 [employer]. [address] [place] [address]. All righ ts reserved. 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 Avoiding fatty foods such as [place], hamburgers, carrera, ham and pork products, wi [...] the gurney. She cheerfully we lcomed a lead software development engineer visit. She said that her family gathered around her and offered prayer la night. She is a member of [employer] and asked that the buddhism be no tified of her hospitalization. She has a strong virginie and belief in prayer. Spiritual Intervention: Offered pastoral presence and encouragement. Shared prayer. Left a message for the sane nurse at [employer] Spiritual Outcomes: Scarlet expressed her appreciation [...] [address] | | | | | | [place] [address] | | | | | | [phone] | | | | | | | [...] | | | | VONDA SHEPPARD MD ([id number]) | | | | | | on [...] + | Howard, Rad Results In - 09/26/2016 1:38 PM PDT [...] 09/26/2016 | PROVATION | | 12:24 PMMRN: [id number] #: [id number] of : | | | 4Admit Type: AmbulatoryAge: 80Room: [facility] 01Gender: FemaleNote | | | Status: FinalizedAttending MD: MARKUS Goodrichrocedure: | | | ERCPIndications: Filling defect on intraoperative | | | cholangiogramProviders: Gregor Mccord MD, Jalyn Darden | | | ROBI Ring, Pablo Rothman, [facility], | | | Laurie Hammond, Automobile Assembler, Paty Beverly | | | Michelle, Automobile Assembler, Enrique Llanos MD (Anesthesia | | | [...] | | | the anesthesiologist and the plastic process technician in the endoscopy suite. | | [...] the procedure | | | well.Findings: A copra processor film of the abdomen was obtained. | [...] scheduled. - Telephone GI clinic if symptomatic.Gregor Mccord, | | | 09/26/2016 1:21:22 PMThis report has been signed | | | electronically.Number of Addenda: 0Note Initiated On: 09/26/2016 12:24 | | | PMTotal Procedure Duration: 0 hours 27 minutes 8 seconds Scope In: | | | 12:39:22 PMScope Out: 1:06:30 PM [facility] | | | [place], [address] [place] [address] | | | - Continue present medications. [...] |Scope Out: 1:06:30 PM | | | [facility], [address] [facility], [place], [place] | | | [address] | | + + -+ + +---------+ [...] | | | | VONDA SHEPPARD MD ([id number]) | | | | | | on [...] | | | | | CONTINUOUS, Starting 09/26/16 | | PM PDT | [...]
--- OUTSIDE RECORDS SUMMARY | ~2020-02-22 | XMS | Encounter Summary ---
Demographics + + + | Address | [address] | | | [place] [address] | + + + | Home Phone | | + + + | Preferred Language | Unknown | + + + | Marital Status | | + + + | Jainism Affiliation | 1077 | + + + | Race | White | + + + | Ethnic Group | Not or | + + + Author + + + | Author | [facility] | | | and [place] | + + + | Organization | [facility] | | | [...] Team Providers + +------+ + | Care Increment Manager Name | Role | Phone | + +------+ + | Susan Leos | PCP | | | PA-C | | | + +------+ + Encounter Details +--------+ + + + + | Date | Type | Department | Care Team | Description | +--------+ + + + + | 11/21/ | Hospital | [facility] | Sam Samuels, DO | Spondylolisthesis at | | 2020 | Encounter | [facility] | [address] | L4-L5 level; Lumbar | | | | [address] | [place] [address] | radiculopathy; | | | | [place], [place] | [phone] | Spinal stenosis of | | | | [address] | | lumbar region with | | | | [phone] | | neurogenic | | | | [...] | | 0 | | | | CF-Dvxxkgytqm-Fdaxxm | mouth Daily. | | | | [...] [address] | | | | | | [place] [address] | | | | | | [phone] | | | | | | | | +--------+---------+ + + + documented as of this encounter Procedures + +--------+ + + + | Procedure Name | Priori | Date/Time | Associated Diagnosis | Comments | | | ty | | | | + +--------+ + + + | XR LUMBAR SPINE 4 + | Routin | 11/22/2019 | Spondylolisthesis | Results for this | | VW | e | 1:23 PM | at L4-L5 level | procedure are in the | | | | PDT | Lumbar radiculopathy | results section. | | | | | 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 | | | | | | neurogenic | | | | | | claudication DDD | | | | | | (degenerative disc | | | | | | disease), lumbar | | + +--------+ + + + documented in this encounter Results XR Lumbar Spine 4 [...] as above. Signed by: Rick | | Roman Adkins M.D. Sign Date/Time: 11/22/2019 1:43 PM | | [...] at L4-L5 level | + + | Lumbar radiculopathy Thoracic or lumbosacral neuritis or radiculitis, unspecified | + + | Spinal stenosis of lumbar region with neurogenic claudication Spinal stenosis, lumbar | | region, with neurogenic claudication | + + | DDD (degenerative disc disease), lumbar Degeneration of lumbar or lumbosacral | | intervertebral disc | + + documented in this encounter"
--- OUTSIDE RECORDS SUMMARY | ~2020-02-22 | XMS | Encounter Summary ---
Demographics + + + | Address | [address] | | | [place] [address] | + + + | Home Phone | | + + + | Preferred Language | Unknown | + + + | Marital Status | | + + + | Judaism Affiliation | 1077 | + + + | Race | White | + + + | Ethnic Group | Not or | + + + Author + + + | Author | [facility] | | | and [place] | + + + | Organization | [facility] | | | [...] Team Providers + +------+ + | Care Front End Loader Operator Name | Role | Phone | [...] | y, lumbar | ST | [place], | | | | | region TFE | [place], [place] | [place] [address] | | | | | BiLat L3 ( | [address] | Phone: | | | | | 10-12 ) | Phone: | [phone] | | | | | Procedures | [phone] | Fax: | | | | | MT INJECT | Fax: | [phone] | | | | | ANES/STEROID | [phone] | | | | | | FORAMEN | | | | | | | LUMBAR/SACRA | | | | | | | L W IMG | | | | | | | GUIDE ,1 | | | | | | | LEVEL MT | | | | | | | [...] + + | 12/21/ | Hospital | [facility] | Sam Samuels | Spondylolisthesis at | | 2020 | Encounter | INTERVENTIONAL PAIN | [address] | L4-L5 level | | | | MGMT [address] | [place] [address] | (Primary Dx); Lumbar | | | | DR [place], | [phone] | radiculopathy; | | | | [place] [address] | | Spinal stenosis of | | | | [phone] | | lumbar region with | | [...] and his staff can be contacted at [phone]. If you are unable to contact your doctor or their associate, you may come to the Emergency Department at [facility]. These instructions have been explained to [...] | | 0 | | | | YA-Eyjzjhtzkf-Maizfh | mouth Daily. | | | | [...] AM PDTOPERATIVE REPORT NAME: Scarlet Murguia MR#: [id number] : 1935 DATE: 12/22/2019 SURGEON Sam Samuels [...] nolone and 4.5 ml of 0.25% Naropin. Kermit were removed intact, skin was cleansed, and [...] [address] | | | | | | [place] [address] | | | | | | [phone] | | | | | | | [...] | (Comment | | ONCE PRN, Starting [facility] 12/22/19 at | | AM PDT | | | ) | | 1001, Intra-op | | | | | | + +-------+ +-------+---+ + +---+---+ | | | +---+---+ documented in this encounter"
--- OUTSIDE RECORDS SUMMARY | ~2020-02-22 | XMS | Encounter Summary ---
Demographics + + + | Address | [address] | | | [place] [address] | + + + | Home Phone [...] Team Providers + +------+ + | Care Dry Sand Molder Name | Role | Phone | + [...] + + | 03/03/ | Telephone | [facility] | Malcom Mojica, | Other (discuss lab | | 2016 | | PHYSIATRY [address] | [address] | work ) | | | | [address] | [address], | | | | | [place] | [place] [address] | | | | | [address] | [phone] | | | | | [phone] | | | +--------+ + + + [...] this encounter Miscellaneous Notes Telephone Encounter - Edith Pittman CMA - 03/03/2016 12:24 PM PDTPatient aware. She wi ll await my phone call for MRI scheduling. elephone Encounter - Edith Pittman CMA - 03/03/2016 12:21 PM PD T----- Message from Malcom Mojica MD sent at 03/03/2016 11:22 PDT ----- Please let the patient know her labs are normal so I have ordered an MRI of her neck to robert luate her increased reflex's and bladder symptoms further documented in this encounter Plan of Treatment +--------+---------+ + + + | Date | Type | Specialty | Care Team | Description | +--------+---------+ + + + | 05/17/ | Office | Cardiology | Jeniffer Haines | | | 2019 | Visit | | [address] | | | | | | [address] | | | | | | [place] [address] | | | | | | [phone] | | | | | | | | +--------+---------+ + + + documented as of this encounter Visit Diagnoses Not on filedocumented in this encounter"
--- OUTSIDE RECORDS SUMMARY | ~2020-02-22 | XMS | Encounter Summary ---
Demographics + + + | Address | [address] | | | [place] [address] | + + + | Home Phone | | + + + | Preferred Language | Unknown | + + + | Marital Status | | + + + | Zoroastrianism Affiliation | 1077 | + + + | Race | White | + + + | Ethnic Group | Not or | + + + Author + + + | Author | [facility] | | | and [place] | + + + | Organization | [facility] | | | [...] Team Providers + +------+ + | Care Miter Grinder Operator Name | Role | Phone | [...] | | | | | | | Other | | | | | | | intervertebr | | | | | | | al disc | | | | | | | degeneration | | | | | | | , lumbar | | | | | | | region | | | | | | | Spondylolist | | | | | | | hesis, | | | | | | | lumbar | | | | | | | region | | | | | | | Radiculopath | | | | | | | y, lumbar | | | | | | | region | | | | | | | Cervicalgia | | | | | | | | | | | | | | Choledocholi | | | | | | | thiasis | | | | | | | (K80.50), | | | | | | | Dilated bile | | | | | | | duct | | | | | | | (K83.8), | | | | | | | Advanced Age | | | | | | | (R54) | | | | | | | Procedures | | | | | | | [place] ERCP DX | | | | | | | COLLECTION | | | | | | | SPECIMEN | | | | | | | BRUSHING/WAS | | | | | | | [place] | | | | | | | ANESTH,UGI | | | | | | | ENDOSCOPY | | | | | | | ERCP | | | +--------+--------+ + + + + Encounter Details +--------+ + + + + | Date | Type | Department | Care Team | Description | +--------+ + + + + | 10/14/ | Anesthesia | [facility] | Harinder Mcgowan MD | | | 2017 | Event | MED CTR [facility] INTRA OP | [address] | | | | | [address] | [place] | | | | | [place], [place] | [address] | | | | | [address] | | | | | | [phone] | | | +--------+ + + + + Anesthesia Record + + + + + | Procedure Name | Responsible | Anesthesia Start | Anesthesia Stop Time | | | Anesthesiologist | Time | | + + + + + | ERCP w/ stent pull | Harinder Mcgowan MD | 10/14/16 1234 | 10/14/16 1305 | | (N/A Mouth) | | | | + + + + + +----+---+ + + | Da | T | Event | Comment | | te | i | | | | | m | | | | | e | | | +----+---+ + + | 05 | 1 | | | | /0 | 2 | | | | 2/ | 2 | | | | 20 | 7 | | | | 17 | | | | +----+---+ + + | | 1 | An Checkout | Pre-use anesthesia machine/equipment checkout. | | | 2 | | | | | 3 | | | | | 4 | | | +----+---+ + + | | 1 | An Start | Reassessment prior to anesthesia induction/procedure. | | | 2 | | | | | 3 | | | | | 4 | | | +----+---+ + + | | 1 | AN | Per surgeon request | | | 2 | Antibiotic | | | | 3 | declined | | | | 4 | | | +----+---+ + + | | 1 | Breathing | | | | 2 | Spontaneous | | | | 3 | ly | | | | 4 | | | +----+---+ + + | | 1 | An Start | | | | 2 | Data | | | | 3 | | | | | 4 | | | +----+---+ + + | | 1 | an stop | | | | 2 | data | | | | 5 | | | | | 5 | | | +----+---+ + + | | 1 | An Stop | Patient handed off to recovery nurse. | | | 0 | | | | | 4 | | | +----+---+ + + +------+ | Meds | +------+ + +--------+ | Name | Total | + +--------+ | propofol (DIPRIVAN) injection | 200 mg | | (bolus) (20 mL) | | + +--------+ | lactated ringers (LR) infusion | 200 mL | + +--------+ + + | No agents on file. | + + + + | No blood administrations on file. | + + +--------+ + + + | Type | Details | Placement | Removal | +--------+ + + + | Periph | 10/14/16; 1208; Right; Distal; | 10/14/16 1208 by | 10/14/16 1341 by | | eral | Forearm; htsu-hbj-elkmyi catheter | Patsy Dixon RN | Delicia Villalba RN | | IV | system; 20 gauge; distraction, | | | | | intradermal injection; no longer | | | | | indicated, catheter/device | | | | | intact, removed per | | | | | policy/procedure, site care per | | | | | policy/procedure; short term use; | | | | | 10/14/16; 1341 | | | +--------+ + + + [...] encounter OR Notes Anesthesia Postprocedure Evaluation - Harinder Mcgowan MD - 10/14/2016 1:07 PM PDT ANESTHESIA POSTANESTHESIA EVALUATION Scarlet Murguia 80 y.o. female 1935 [id number] Procedure(s) ERCP w/ stent pull (N/A Mouth) Cooperates? Yes Mental Status Performs simple tasks. Respiratory Satisfactory - Airway patent (self maintained). Cardiovascular Satisfactory Blood pressure and heart rate acceptable Temperature Satisfactory Pain Satisfactory N/V Control Satisfactory Hydration Satisfactory No signs of dehydration Complications None apparent Filed Vitals: 10/14/16 1133 10/14/16 1302 BP: 163/66 126/85 Pulse: 61 75 Temp: 36.6 C (97.9 F) 36.2 C (97.2 F) Resp: 16 15 SpO2: 100% 95% Electronically signed by Harinder Mcgowan MD 10/14/2016 13:07 [facility] nesthesia Preprocedure Evaluation - Harinder Mcgowan MD - 10/14/2016 12:24 PM PDTFormatting of this note might be di fferent from the original. ANESTHESIA PREANESTHESIA EVALUATION Scarlet Murguia 80 y.o. female 1935 [id number] Procedure(s): ERCP w/ stent pull (N/A Mouth) Medical history, anesthesia, medications, allergy, NPO status verified histories reviewed. Review of Systems / Med History Anesthesia History No anesthesia complications. Cardiovascular (+) hypertension(-) angina (+) Valvular disease: Pulmonary (-) smoking history Gastrointestinal/Hepatic (+) hyperlipidemia Endocrine (+) hypothyroidism (+) Diabetes: type 2 Physical Exam Airway MP I, TM >3 FB, Mouth opening >2 FB. Neck: full ROM, extends >30 degrees. Jaw protrusi on normal. Dental ; (+) dentures-lower and dentures-upper. CV Rhythm regular. Rate normal. (+) murmur. Pulm Clear to auscultation bilaterally. Neuro Grossly normal. Anesthesia Plan ASA 3 (asa3 due to DM2 and peripheral neuropathy) Type: TIVA. Induction: Intravenous. Potential problems: None anticipated. Monitors: Standard ASA monitors. Consent statement:Anesthetic plan, alternatives, risks and benefits discussed with patient. Risks discussed included (but were not limited to): nausea, pain, . Consenting person understands and agrees to proceed. Electronically Signed by: Harinder Mcgowan MD ESi date/time: 10/14/2016 12:24 documented in this enco unter Plan of Treatment +--------+---------+ + + + | Date | Type | Specialty | Care Team | Description | +--------+---------+ + + + | 05/17/ | Office | Cardiology | Jeniffer Haines | | | 2020 | Visit | | [address] | | | | | | [address] | | | | | | [place] [address] | | | | | | [phone] | | | | | | | | +--------+---------+ + + + documented as of this encounter Visit Diagnoses Not on filedocumented in this encounter Administered Medications + +---------+ +------+------+------+ | Medication Order | MAR | Action | Dose | Rate | Site | | | Action | Date | | | | + +---------+ +------+------+------+ | lactated ringers (LR) infusion | New Bag | 10/15/19 | | | | | at 100 mL/hr, Intravenous, | | 17 12:33 | | | | | CONTINUOUS, Starting 10/14/16 | | PM PDT | | | | | at 1200, Pre-op | | | | | | + +---------+ +------+------+------+ +---------+ +---+-------+---+ | New Bag | 10/15/19 | | 100 | | | | 17 12:07 | | mL/hr | | | | PM PDT | | | | +---------+ +---+-------+---+ +---+---+ | | | +---+---+ + +-------+ +-------+---+---+ | propofol (DIPRIVAN) injection | Given | 10/15/19 | 20 mg | | | | Intravenous, PRN, Starting Tue | | 17 12:51 | | | | | 10/14/16 at 1238, Anesthesia | | PM PDT | | | | | Intra-op | | | | | | + +-------+ +-------+---+---+ +-------+ +-------+---+---+ | Given | 10/15/19 | 20 mg | | | | | 17 12:47 | | | | | | PM PDT | | | | +-------+ +-------+---+---+ | Given | 10/15/19 | 20 mg | | | | | 17 12:44 | | | | | | PM PDT | | | | +-------+ +-------+---+---+ +---+---+ | | | +---+---+ documented in this encounter"
--- OUTSIDE RECORDS SUMMARY | ~2020-02-22 | XMS | Encounter Summary ---
Demographics + + + | Address | [address] | | | [place] [address] | + + + | Home Phone [...] | Author | [facility] | | | and [place] | + + + | Organization | [facility] | | | [...] Team Providers + +------+ + | Care Dough Mixer Name | Role | Phone | + +------+ + | Susan Leos | PCP | | | PA-C | | | + +------+ + Reason for Visit + +--------+ + | Reason | Onset | Comments | | | Date | | + +--------+ + | Post-op Question | 04/04/ | | | | 2019 | | + +--------+ + Encounter Details +--------+ + + + + | Date | Type | Department | Care Team | Description | +--------+ + + + + | 04/04/ | Telephone | [facility] | [place] | Post-op Question | | 2019 | | [facility] [address] | MD [place]ain[place] [address] | | | | | [address] [place], [place] | [place] | | | | | [address] | [place] [address] | | | | | [phone] | [phone] | | | | | | | [...] this encounter Miscellaneous Notes Telephone Encounter - Edwige Navas - 04/04/2019 10:13 AM PDTAnswering Service Trinh martin from 04/04/19 @ 8:34am: I did not ge the compression socks. I would like to know if I am suppose to indira them. Please call back.Electronically signed by Edwige Navas at 2018 10:15 AM PDTdocumented in this encounter Plan of Treatment +--------+---------+ + + + | Date | Type | Specialty | Care Team | Description | +--------+---------+ + + + | 05/17/ | Office | Cardiology | Jeniffer Haines | | | 2019 | Visit | | [address] | | | | | | [address] | | | | | | [place] [address] | | | | | | [phone] | | | | | | | | +--------+---------+ + + + documented as of this encounter Visit Diagnoses Not on filedocumented in this encounter"
--- OUTSIDE RECORDS SUMMARY | ~2020-02-22 | XMS | Encounter Summary ---
Demographics + + + | Address | [address] | | | [place] [address] | + + + | Home Phone | | + + + | Preferred Language | Unknown | + + + | Marital Status | | + + + | Protestant Affiliation | 1077 | + + + | Race | White | + + + | Ethnic Group | Not or | + + + Author + + + | Author | [facility] | | | and [place] | + + + | Organization | [facility] | | | [...] Team Providers + +------+ + | Care Access Spec Name | Role | Phone | + +------+ + | Susan Leos | PCP | | | PA-C | | | + +------+ + Reason for Visit +--------+--------+ + | Reason | Onset | Comments | | | Date | | +--------+--------+ + | Other | 12/22/ | | | | 2020 | | +--------+--------+ + Encounter Details +--------+ + + + + | Date | Type | Department | Care Team | Description | +--------+ + + + + | 12/22/ | Telephone | [facility] | Sam Samuels DO | Other | | 2020 | | [facility] | [address] [facility] | | | | | [address] | [place] [address] | | | | | [address] | [phone] | | | | | [place], [place] | | | | | | [address] | | | | | | [phone] | | | +--------+ + + + [...] this encounter Miscellaneous Notes Telephone Encounter - Deysi Villa, Computer Teacher - 12/23/2019 11:14 AM MONICACa lled and spoke with patient to follow up on the procedure they had with Dr. Samuels. Patient reports doing well, no concerns. Tdocumented in this encounter Plan of Treatment +--------+---------+ + + + | Date | Type | Specialty | Care Team | Description | +--------+---------+ + + + | 05/17/ | Office | Cardiology | Jeniffer Haines | | | 2019 | Visit | | [address] | | | | | | [address] | | | | | | [place] [address] | | | | | | [phone] | | | | | | | | +--------+---------+ + + + documented as of this encounter Visit Diagnoses Not on filedocumented in this encounter"
--- OUTSIDE RECORDS SUMMARY | ~2020-02-22 | XMS | Clinical Summary ---
Demographics + + + | Address | [address] | | | [place] [address] | + + + | Home Phone [...] Team Providers + +------+ + | Care Machine Heddle Cleaner Name | Role | Phone | + [...] Antibiotics | Hives, Rash | Medium | 08/19/20 | | | | | | 16 | | + + + + + + | Verapamil Hcl Er | Hives, Rash | Medium | 08/19/20 [...] e | + + + +---------+------+------+-------+ | omeprazole | Take 20 mg by mouth | | 0 | | | Activ | | (PRILOSEC) 20 mg | every morning | | | | | e | | capsule | (before breakfast). | | | | | | + + + +---------+------+------+-------+ | gabapentin | Take 600 mg by mouth | | 0 | | | Activ | | (NEURONTIN) 300 mg | 3 times daily. | | | | | e | | capsule | Takes 60o mg in am , | | | | | | | | 300 mg at noon, and | | | | | | | | 600 mg at night | | | | | | + + + +---------+------+------+-------+ | docusate sodium | Take 100 mg by mouth | | 0 | | | Activ | | (COLACE) 100 mg | Twice daily as | | | | | e | | capsule | needed. | | | | | | + + + +---------+------+------+-------+ | Psyllium | Take 1 Dose by mouth | | 0 | | | Activ | | (METAMUCIL PO) | as needed. | | | | | e | [...] + +---------+------+------+-------+ | [facility] TRIPLE | Take 400 mg by mouth | | 0 | | | Activ | | MAGNESIUM COMPLEX PO | Daily. | | | | | e | + + + +---------+------+------+-------+ | POTASSIUM CITRATE | Take 99 mg by mouth | | 0 | | | Activ | | PO | Daily. | | | | | e | + + + +---------+------+------+-------+ | venlafaxine | Take 75 mg by mouth | | 3 | 11/0 | | Activ | | (EFFEXOR XR) 75 mg | Daily. | | | 01/01 | | e | | 24 hr capsule | | | | 19 | | | + + + +---------+------+------+-------+ | | Take 1 capsule by | | 0 | | | Activ | | CS-Kbtdzhfwfz-Cokwly | mouth Daily. | | | | | e | | obalamin (FOLBIC PO) | | | | | | | + + + +---------+------+------+-------+ | Ascorbic Acid | Take 500 mg by mouth | | 0 | | | Activ | | (VITAMIN C) 500 MG | Daily. | | | | | e | | CAPS | | | | | | | + + + +---------+------+------+-------+ | aspirin 81 mg EC | Take 81 mg by mouth | | 0 | | | Activ | | tablet | Daily. | | | | | e | + + + +---------+------+------+-------+ | ferrous sulfate | Take 325 mg by mouth | | 0 | | | Activ | | 325 mg tablet | daily (with | | | | | e | | | breakfast). | | | | | | + + + +---------+------+------+-------+ | Multiple | Take 1 capful by | | 0 | | | Activ | | Vitamins-Minerals | mouth Daily. | | | | | e | | (MACULAR HEALTH | | | | | | | | FORMULA) CAPS | | | | | | | + + + +---------+------+------+-------+ | atenolol | Take 50 mg by mouth | | 0 | | | Activ | | (TENORMIN) 50 mg | Daily. | | | | | e | | tablet | | | | | | | + + + +---------+------+------+-------+ Active Problems + + + | Problem | Noted Date | + + + | Systolic murmur | 11/17/2019 | + + + | History of syncope | 11/17/2019 | + + + | Dyspnea on exertion | 10/13/2019 | + + + | Post-traumatic osteoarthritis of left hip | 03/21/2019 | + + + | Left hip pain | 03/15/2019 | + + + + + | Overview: Added automatically from request for surgery | | [id number] | + + + + + | Choledocholithiasis | 09/25/2016 | + + + | Mild aortic stenosis by prior echocardiogram | 09/25/2016 | + + + | [...] radiculopathy | 02/04/2016 | + + + Resolved Problems + + + + | Problem | Noted | Resolved | | | Date | Date | + + + + | Type 2 diabetes mellitus | 09/26/19 | | | | 17 | 0 | + + + + Encounters +--------+ + + + + | Date | Type | Specialty | Care Team | Description | +--------+ + + + + | 02/20/ | Telephone | Pain Medicine | Sam Samuels DO | Procedure | | 2020 | | | | | +--------+ + + + + | 01/30/ | Office | Pain Medicine | Sam Samuels DO | Spondylolisthesis at | | 2020 | Visit | | | L4-L5 level | | | | | | (Primary Dx); Lumbar | | | | | | radiculopathy; | | | | | | 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 | | | | | | neurogenic | | | | | | claudication; DDD | | | | | | (degenerative disc | | | | | | disease), lumbar; | | | | | | Sacroiliitis, not | | | | | | elsewhere classified | | | | | | ([facility]) | +--------+ + + + + | 01/01/ | Telephone | Pain Medicine | Sam Samuels DO | Appointment | | 2019 | | | | | +--------+ + + + + | 12/22/ | Telephone | Pain Medicine | Sam Samuels DO | Other | | 2019 | | | | | +--------+ + + + + | 12/21/ | Hospital | Radiology | Sam Samuels DO | | | 2019 | Encounter | | | | +--------+ + + + + | 12/21/ | Hospital | Pain Medicine | Sam Samuels DO | Spondylolisthesis at | | 2020 | Encounter | | | L4-L5 level | | | | | | (Primary Dx); Lumbar | | | | | | radiculopathy; | | | | | | 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 | | | | | | neurogenic | | | | | | claudication | +--------+ + + + + | 12/20/ | Telephone | Pain Medicine | Sam Samuels DO | Pre-Procedure | | 2019 | | | | | +--------+ + + + + | 12/08/ | Telephone | Pain Medicine | aSm Samuels DO | Follow-up | | 2019 | | | | | +--------+ + + + + | 12/07/ | Hospital | Radiology | Sam Samuels DO | | 2019 | Encounter | | | | +--------+ + + + + | 12/07/ | Hospital | Pain Medicine | Sam Samuels DO | Spondylolisthesis at | | 2020 | Encounter | | | L4-L5 level | | | | | | (Primary Dx); Lumbar | | | | | | radiculopathy; | | | | | | 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 | | | | | | neurogenic | | | | | | claudication; DDD | | | | | | (degenerative disc | | | | | | disease), lumbar | +--------+ + + + + | 12/06/ | Telephone | Pain Medicine | Sam Samuels DO | Pre-Procedure | | 2020 | | | | | +--------+ + + + + | 11/21/ | Hospital | Radiology | Sam Samuels DO | Spondylolisthesis at | | 2020 | Encounter | | | L4-L5 level; Lumbar | | | | | | radiculopathy; | | | | | | 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 | | | | | | neurogenic | | | | | | claudication; DDD | | | | | | (degenerative disc | | | | | | disease), lumbar | +--------+ + + + + | 11/21/ | Office | Pain Medicine | Sam Samuels DO | Spondylolisthesis at | | 2020 | Visit | | | L4-L5 level | | | | | | (Primary Dx); Lumbar | | | | | | radiculopathy; | | | | | | 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 | | | | | | neurogenic | | | | | | claudication; DDD | | | | | | (degenerative disc | | | | | | disease), lumbar | +--------+ + + + + from [...] + + + | Blood Pressure | 128/68 | 01/31/2020 11:45 AM | | | | | PDT | | + + + + + | Pulse | 66 | 01/31/2020 11:45 AM | | | | | PDT | | + + + + + | Temperature | 36.9 C (98.4 F) | 01/31/2020 11:45 AM | | | | | PDT | | + + + + + | Respiratory Rate | 16 | 12/22/2019 10:16 AM | | | | | PDT | | + + + + + | Oxygen Saturation | 98% | 01/31/2020 11:45 AM | | | | | PDT | | + + + + + | Inhaled Oxygen | - | - | | | Concentration | | | | + + + + + | Weight | 69.9 kg (154 lb) | 01/31/2020 11:45 AM | | | | | PDT | | + + + + + | Height | 167.6 cm (5' 6") | 01/31/2020 11:45 AM | | | | | PDT | | + + + + + | Body Mass Index | 24.86 | 01/31/2020 11:45 AM | | | | | PDT | | + + + + + Plan of Treatment +--------+---------+ + + + | Date | Type | Specialty | Care Team | Description | +--------+---------+ + + + | 05/17/ | Office | Cardiology | Jeniffer Haines | | | 2019 | Visit | | [address] | | | | | | [address] | | | | | | [place] [address] | | | | | | [phone] | | | | | | | | +--------+---------+ + + + + + + + + | Health Maintenance | Due Date | Last | Comments | | | | Done | | + + + + + | Medication | | | | | Management | 4 | | | + + [...] | | | | | Pneumococcal 65+ (1 | 9 | | | | of 1 - PPSV23) | | | | + + + + + | Med Mgmt: TSH | | 02/25/20 | | | | 7 | 16 | | + + + + + | Adult Annual | | | | | Wellness Visit | 9 | | | + + + + + | Vaccine: Influenza | | | | | (#1) | 0 | | | + + + + + | Hemoglobin A1c | | 03/21/20 | | | Screening | 0 | 19 | | + + + + + | Med Mgmt: Cr | | 03/21/20 | | | | 0 | 19 | | + + + + + | Med Mgmt: K | | 03/21/20 | | | | 0 | 19 | | + + + + + | Med Mgmt: eGFR | | 03/21/20 | | | | 0 | 19 | | + + + + + [...] | /NA | | Mark Foley MD at [facility] | | | | | | /[id number] | | [facility] | | | | | | 5 [...] | /NA | | Mark Foley MD at [facility] | | | | | | /[id number] | | [facility] | | | | | | 301 [...] | /NA | | Mark Foley MD at [facility] | | | | | | /[id number] | | [facility] | | | | | | 802 | + +--------+--------+ +--------+--------+--------+ | Stent Bili Advnx 10fr 5cm - | Stent | | [place] | | | [id number] / | | [id number]: Qty: 1 on | | | SCIENTIFIC | | | / | | 09/26/2016 by Greogr Mccord | | | BIGG - BSCI | | | | [facility] | | | | | | | | [facility] | | | | | | | + +--------+--------+ +--------+--------+--------+ | Imp Hip Clushle Trident Ii | | Left: | RANDI | | 12/11/ | 702-04 | | 54e - SnaImplanted: Qty: 1 on | | Hip | MEDICAL - | | 2023 | -54E | | 03/29/2019 by Nan, | | | STRSebastian | | | /NA | | Mark Foley MD at [facility] | | | | | | /[id number] | | [facility] | | | | | | [id number] | + +--------+--------+ +--------+--------+--------+ | Screw Hex Lp [id number] - | | Left: | RANDI | | 11/20/ | [id number] | | SnaImplanted: Qty: 1 on | | Hip | MEDICAL - | | 2023 | 530 | | 03/29/2019 by Nan, | | | ALLEN | | | /NA | | Mark Foley MD at [facility] | | | | | | /[id number] | | [facility] | | | | | | | + +--------+--------+ +--------+--------+--------+ Procedures + +--------+ [...] | | + +--------+ + + + from Last 3 Months Results XR Lumbar Spine 4 + Vw [...] + + | Ricco Lawrence Results In 11/22/2019 1:47 PM PDT | | LUMBAR [...] + + | Performing | Address | City[facility] | Phone Number | | [...] | [facility] | [place] | [id number] | 06/15/19 | | | Medica | | | HEALTH | | 17-Pre | | | re | | | MDCR | | sent | | | | + +--------+ +--------+-------+---------+--------+ | [facility] | [place] | [id number] | | | | Medica | | [...] | 1936 | [phone] | [place], [place] | | | [place] | | | 3 (Home) | [address] | + +--------+ +--------+ + + | Scarlet Murguia | Person | Self | [birth year] | [address] | | | al/Fam | | 1936 | [phone] | [place], [place] | | | [place] | | | 3 (Home) | [address] | + +--------+ +--------+ + + | Scarlet Murguia D | Person | Self | [birth year] | [address] | | | al/Fam | | 1936 | [phone] | [place] | | | [place] | | | 3 (Home) | [address] | + +--------+ +--------+ + + Advance Directives + + + + + | Type | Date Recorded | Patient | Explanation | | | | Logging Rafter Laborer | | + + + + + | Power of | | | | | Trampoline Team Coach | | | | + + + + + | Advance | 03/16/2019 11:21 | | | | Directive | AM | | | + + + + + + + + + + | Code Status | Date | Date | Comments | | | Activated | Inactivated | | + + + + + | Full Code | 03/29/2019 | 03/31/2019 | | | | 2:18 PM | 4:40 PM | | + + + + +
--- OUTSIDE RECORDS SUMMARY | ~2020-02-22 | XMS | Encounter Summary ---
Demographics + + + | Address | [address] | | | [place] [address] | + + + | Home Phone [...] Team Providers + +------+ + | Care Filter Press Pumper Name | Role | Phone | + [...] | | | collapse | [address] | [place] | | | | | Procedures | [address] | [address] | | | | | EVENT | [address] | [address] | | | | | MONITOR [address] | [place], [place] | [place] | | | | | WEEK 4 week | [address] | [address] | | | | | | Phone: | Phone: | | | | | | [phone] | [phone] | | | | | | Fax: | Fax: | | | | | | [phone] | [phone] | +--------+--------+ + + + + Encounter Details +--------+ + + + + | Date | Type | Department | Care Team | Description | +--------+ + + + + | 07/07/ | Procedure | [facility] | Smitha Griffin DO | Syncope, unspecified | | 2019 | visit | CARDIOLOGY [place] | [address] | syncope type | | | | [address] | [address] [place], [place] | | | | | [address] | [address] | | | | | [place], [place] | | | | | | [address] | | | | | | [phone] | | | +--------+ + + + [...] of this encounter Progress Notes Lina Recinos, Service Line Coordinator - 07/07/2019 3:30 PM PST4 week cardiac event monitor placed on patient. EOB/Billing information discussed. Instructions given and understood. P atient [facility] to [facility] or [facility] questions. 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 doc umented in this encounter Plan of Treatment +--------+---------+ + + + | Date | Type | Specialty | Care Team | Description | +--------+---------+ + + + | 05/17/ | Office | Cardiology | Jeniffer Haines | | | 2019 | Visit | | [address] | | | | | | [address] | | | | | | [place] [address] | | | | | | [phone] | | | | | | | | +--------+---------+ + + + documented as of this encounter Visit Diagnoses + + | Diagnosis | + + | Syncope, unspecified syncope type | + + documented in this encounter"
--- OUTSIDE RECORDS SUMMARY | ~2020-02-22 | XMS | Encounter Summary ---
Demographics + + + | Address | [address] | | | [place] [address] | + + + | Home Phone [...] Team Providers + +------+ + | Care Channeler Outsole Name | Role | Phone | + [...] Closed | | Radiology | Diagnoses | Harri, | [facility] | | | | | Bile duct | Gregor Brock MD | [address] | | | | | abnormality | [address] | [place], | | | | | Procedures | [place], [place] | [place] | | | | | MRI MRCP | [address] | [address] | | | | | Liver wo | [place] | Phone: | | | | | [place] | [address] | [phone] | | | | | MRI, | Phone: | Fax: | | | | | ABDOMEN | [phone] | [phone] | | | | | (MRI) | Fax: | | | | | | | [phone] | | +--------+--------+ + + + + Reason for Visit Diagnostic/Screening (Routine) +--------+--------+ + + + + | Status | Reason | Specialty | Diagnoses / | Referred By | Referred To | | | | | Procedures | Contact | Contact | +--------+--------+ + + + + | Closed | | Radiology | Diagnoses | Harri, | [facility] | | | | | Bile duct | Gregor Brock MD | [address] | | | | | abnormality | [address] | [place], | | | | | Procedures | [place], [place] | [place] | | | | | MRI MRCP | [address] | [address] | | | | | Liver wo | [place], [place] | Phone: | | | | | [place] | [address] | [phone] | | | | | MRI, | Phone: | Fax: | | | | | ABDOMEN | [phone] | [phone] | | | | | (MRI) | Fax: | | | | | | | [phone] | | +--------+--------+ + + + + Encounter Details +--------+ + + + + | Date | Type | Department | Care Team | Description | +--------+ + + + + | 10/30/ | Hospital | [facility] | Gregor Mccord MD | Bile duct | | 2017 | Encounter | MED CTR MRI [address] | [address], [place] | abnormality | | | | [place], | [address] [place], [place] | | | | | [place] [address] | [address] | | | | | [phone] | | | +--------+ + + + [...] | | | | 0 | | ([facility]) | | | | | | | MISC | | | | | | + + + +---------+ + + | [place]-3 Fatty | Take 1 tablet by | [...] [address] | | | | | | [place] [address] | | | | | | [phone] | | | | | | | | +--------+---------+ + + + documented as of this encounter Procedures + +--------+ + + + | Procedure Name | Priori | Date/Time | Associated Diagnosis | Comments | | | ty | | | | + +--------+ + + + | MRI MRCP LIVER WO | Routin | 10/30/2016 | Bile duct | Results for this | | CONTRAST | e | 1:09 PM | abnormality | procedure are in the | | | | PDT | | results section. | + +--------+ + + + documented in this encounter Results MRI MRCP Liver wo Contrast (10/30/2016 1:09 PM PDT) + + | Specimen | + + | | + + + + + | Narrative | Performed At | + + + | MRI MRCP LIVER WO CONTRAST 10/30/2016 1:05 PM HISTORY:?Narrowing | [facility] | | to mid common bile duct. COMPARISON: Lumbar spine dated | [facility] | | 02/11/2016. PROTOCOL: Coronal T2 broker assistant, axial T2 broker assistant, coronal 3D | [facility] | | respiratory triggered, coronal T2 thin [...] spine dated | | 02/11/2016.PROTOCOL: Coronal T2 broker assistant, axial T2 broker assistant, coronal 3D respiratory | | triggered,coronal T2 [...] A few more small subcentimeter | | [id number] cyst are seen within the left kidney [...] [address] | [place] | [phone] | | [facility] | | [address] | | | - IMAGING | | | | + + + + + documented in this encounter Visit Diagnoses + + | Diagnosis | + + | Bile duct abnormality Unspecified disorder of biliary tract | + + documented in this encounter"
--- OUTSIDE RECORDS SUMMARY | ~2020-02-22 | XMS | Encounter Summary ---
Demographics + + + | Address | [address] | | | [place] [address] | + + + | Home Phone [...] Team Providers + +------+ + | Care Grain Elevator Superintendent Name | Role | Phone | [...] [place] | | | | | | [place], | [address] | | | | | | [place] | [place] | | | | | | [address] | [address] | | | | | | Phone: | Phone: | | | | | | [phone] | [phone] | | | | | | Fax: | Fax: | | | | | | [phone] | [phone] | +--------+--------+ + + + + Encounter Details +--------+---------+ + + + | Date | Type | Department | Care Team | Description | +--------+---------+ + + + | 09/17/ | Office | [facility] | Gregor Mccord MD | Choledocholithiasis | | 2017 | Visit | GASTROENTEROLOGY | [address], [place] | (Primary Dx) | | | | [address] [place] | [address] [place], [place] | | | | | [address] 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
--- OUTSIDE RECORDS SUMMARY | ~2020-02-22 | XMS | Encounter Summary ---
Demographics + + + | Address | [address] | | | [place] [address] | + + + | Home Phone | | + + + | Preferred Language | Unknown | + + + | Marital Status | | + + + | Latter-Day Affiliation | Unknown | + + + | Race | White | + + + | Ethnic Group | Not or | + + + Author + + + | Author | [facility] | + + + | Organization | [facility] | + + + | Address [...] Team Providers + +------+ + | Care Veneer Sorter Name | Role | Phone | [...] [address] | | | | | | [place], [place] | | | | | | [address] | | | +--------+ + + + [...]
--- OUTSIDE RECORDS SUMMARY | ~2020-02-22 | XMS | Encounter Summary ---
Demographics + + + | Address | [address] | | | [place] [address] | + + + | Home Phone | | + + + | Preferred Language | Unknown | + + + | Marital Status | | + + + | Uatsdin Affiliation | 1077 | + + + | Race | White | + + + | Ethnic Group | Not or | + + + Author + + + | Author | [facility] | | | and [place] | + + + | Organization | [facility] | | [...] Team Providers + +------+ + | Care Associate Automation Engineer Name | Role | Phone | + +------+ + | Susan Leos | PCP | | | PA-C | | | + +------+ + Reason for Visit + +--------+ + | Reason | Onset | Comments | | | Date | | + +--------+ + | Appointment | 09/23/ | Scheduled ERCP | | | 2016 | | + +--------+ + Encounter Details +--------+ + + + + | Date | Type | Department | Care Team | Description | +--------+ + + + + | 09/23/ | Telephone | [facility] | Gregor Mccord MD | Appointment | | 2016 | | GASTROENTEROLOGY | [address], [place] | (Scheduled ERCP) | | | | [address] [place] | [address] [place], [place] | | | | | [address] [place], [place] | [address] | | | | | [address] | | | | | | [phone] | | | +--------+ + + + [...] Telephone Encounter - Sonali Garcia RN - 09/23/2016 11:06 AM PDTSpoke with patient and discussed that Dr Mccord recommends an ERCP. scheduled for September 26 at [facility] checking in at 11 AM. Reviewed instructions and medications. Case ordered. documented in this encounter Plan of Treatment +--------+---------+ + + + | Date | Type | Specialty | Care Team | Description | +--------+---------+ + + + | 05/17/ | Office | Cardiology | Jeniffer Haines | | | 2019 | Visit | | [address] | | | | | | [address] | | | | | | [place] [address] | | | | | | [phone] | | | | | | | | +--------+---------+ + + + documented as of this encounter Visit Diagnoses + + | Diagnosis | + + | Common bile duct stone - Primary Calculus of bile duct without mention of | | cholecystitis or obstruction | + + documented in this encounter"
--- OUTSIDE RECORDS SUMMARY | ~2020-02-22 | XMS | Encounter Summary ---
Demographics + + + | Address | [address] | | | [place] [address] | + + + | Home Phone [...] | Author | [facility] | | | and [place] | + + + | Organization | [facility] | | | [...] Team Providers + +------+ + | Care Cfo Controller Name | Role | Phone | + [...] | | | | | | | [place] ERCP DX | | | | | [...] + | 09/26/ | Anesthesia | [facility] | Enrique Llanos | | | 2017 | Event | [facility] MP INTRA OP | MD Mc [address] | | | | | [address] | [address] [place] | | | | | [place] | [place] [address] | | | | | [address] | [phone] | | | | | [phone] | | | +--------+ + + + [...] [address] | | eral | Antecubital; [id number] | Patsy Dixon RN | Patsy Dixon [...] EVALUATION Scarlet Murguia 80 y.o. female 1935 [id number] BP elevated during case and post-op. Home [...] signed by Enrique Llanos MD 09/26/2016 16:20 [facility] nesthesia Prep rocedure Evaluation - Enrique Llanos MD - 09/26/2016 12:25 PM PDT ANESTHESIA PREANESTHESIA EVALUATION Scarlet Murguia 80 y.o. female 1935 [id number] Procedure(s): ERCP (N/A Mouth) Medical history, anesthesia, [...] . Electronically Signed by: Enrique Llanos MD [facility] date/time: 09/26/2016 12:25 documented in t [...] | | | | [place] [address] | | | | | | [phone] | | | | | | | [...] mcg/kg/m | mL/hr | | | Starting Thu09/26/16 at 1237, | | PM PDT | [...]
--- OUTSIDE RECORDS SUMMARY | ~2020-02-22 | XMS | Encounter Summary ---
Demographics + + + | Address | [address] | | | [place] [address] | + + + | Home Phone [...] + + + | Author | [facility] | + + + | Organization | [facility] | + + + | Address [...] Providers + +------+ + | Care Jewelry Technician Name | Role | Phone | [...] [id number] | | | | | | [facility] | | | | | | and Healing, | | | | | | Building [address], | | | | | | Floor [place], [place] | | | | | | [address] | | | | | | [phone] | | | +--------+ + + + [...] | | | | | | skin, [id number]. The | | | | | | [...] [facility] | [address] | [place] [address] | | | DERMATOPATHOLOGY | [address] | | | + + + + + | [facility] | [address] | [place] [address] | | | DERMATOPATHOLOGY | [address] | | | + + + + + documented in this encounter Visit Diagnoses + + | Diagnosis | + + | Other melanin hyperpigmentation | + + documented in this encounter
--- OUTSIDE RECORDS SUMMARY | ~2020-02-22 | XMS | Encounter Summary ---
Demographics + + + | Address | [address] | | | [place] [address] | + + + | Home Phone | | + + + | Preferred Language | Unknown | + + + | Marital Status | | + + + | Pentecostalism Affiliation | Unknown | + + + | Race | White | + + + | Ethnic Group | Not or | + + + Author + + + | Author | [facility] | + + + | Organization | [facility] | + + + | [...] Team Providers + +------+ + | Care Industrial Machinery Mechanic Name | Role | Phone | + +------+ + PCP | Unavailable | + +------+ + Encounter Details +--------+ + + + + | Date | Type | Department | Care Team | Description | +--------+ + + + + | 03/20/ | Transcribed | Allergy Clinic at | Dictation, Other | Transcribed | | 1996 | | [facility] [address] | | | | | | [facility] | | | | | | [place] | | | | | | [facility], [address] [place] [address] | | | | | | [place], [place] | | | | | | [address] | | | | | | [phone] | | | +--------+ + + + [...] as of this encounter Progress Notes Interface, Crossword Puzzle Maker In - 07/30/2006 1:06 AM PST [facility] and [address] [address] or March 20, 1997 AKIRA LEOS MD [facility] [address] [place] [address] RE:Scarlet Murguia MR#:[id number] Leos: We saw Mrs. Scarlet Murguia for a rheumatology consultation at [facility] on March 20, 1997. 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 Sincerely, Damaso Franks M.D. Resident, Internal Medicine TERRY/artemio cc: Samia Montano M.D. Wad Compressor Operator Adjuster, Medicine Rheumatology and Arthritis documented in this encounter Plan of Treatment Not on filedocumented as of this encounter Visit Diagnoses Not on filedocumented in this encounter
--- OUTSIDE RECORDS SUMMARY | ~2020-02-22 | XMS | Encounter Summary ---
Demographics + + + | Address | [address] | | | [place] [address] | + + + | Home Phone | | + + + | Preferred Language | Unknown | + + + | Marital Status | | + + + | Cheondoism Affiliation | 1077 | + + + | Race | White | + + + | Ethnic Group | Not or | + + + Author + + + | Author | [facility] | | | and [place] | + + + | Organization | [facility] | | | [...] Team Providers + +------+ + | Care Hole Digger Operator Name | Role | Phone | [...] | | | | | | | PA ERCP DX | | | | | | | COLLECTION | | | | | | | SPECIMEN | | | | | | | BRUSHING/WAS | | | | | | | [place] | | | | | | | ANESTH,UGI | | | | | | | ENDOSCOPY | | | | | | | ERCP | | | +--------+--------+ + + + + Encounter Details +--------+---------+ + + + | Date | Type | Department | Care Team | Description | +--------+---------+ + + + | 10/14/ | Surgery | [facility] | Gregor Mccord MD | ERCP w/ stent pull | | 2017 | | [facility] | [address], [place] | | | | | [address] | [address] [place], [place] | | | | | [place], [place] | [address] | | | | | [address] | | | | | | [phone] | | | +--------+---------+ + + + [...] + + + | Blood Pressure | 163/66 | 10/14/2016 11:33 AM | | | | | PDT | | + + + + + | Pulse | 61 | 10/14/2016 11:33 AM | | | | | PDT | | + + + + + | Temperature | 36.6 C (97.9 F) | 10/14/2016 11:33 AM | | | | | PDT | | + + + + + | Respiratory Rate | 16 | 10/14/2016 11:33 AM | | | | | PDT | | + + + + + | Oxygen Saturation | 100% | 10/14/2016 11:33 AM | | | | | PDT | | + + + + + | Inhaled Oxygen | - | - | | | Concentration | | | | + + + + + | Weight | 69.9 kg (154 lb) | 10/14/2016 11:33 AM | | | | | PDT | | + + + + + | Height | 170.2 cm (5' 7") | 10/14/2016 11:33 AM | | | | | PDT | | + + + + + | Body Mass Index | 24.12 | 10/14/2016 11:33 AM | | | | | PDT | | + + + + + documented in this encounter Discharge Instructions Instructions Delicia Villalba RN - 10/14/2016Formatting of this note might be different fro m the original. ERCP (Endoscopic Retrograde Cholangiopancreatography) The endoscope moves from the mouth,through the upper digestive tract, to the common bile duct opening. A balloon at the tip of a catheter opens above the stone. The stone is pulled out of the du ct and leaves your body through stool. ERCP stands forendoscopic retrograde cholangiopancreatography.This procedure is used to view the biliary and pancreatic ducts. It is used to evaluate diseases that affect the d ucts andto help locate and treat blockages that may be present. How do I get ready for ERCP? Talk to your doctor about any health problems or allergies you have. Ask your doctor about the risks of ERCP. These include pancreatitis, infection, bleeding , and tearing the bowel. Be sure your doctor knows about all medicines you take. You may be told to stop taking s ome or all of them before the test. This includes: All prescription medicines Tldo-cpv-iubajng medicines that don't need a prescription Any street drugs you may use Herbs, vitamins, kelp, seaweed, cough syrups, and other supplements You may be asked to take antibiotics ahead of time. Avoid blood-thinning medicines for 1week before ERCP. Do not eat or drink for 8 to 12hours before ERCP. Have someone ready to take you home. What happens during the procedure? You may be given medicine through an IV to help you relax. Your throat is numbed. A thin tube (endoscope) is placed into your throat. It is advanced from the throat throu gh the upper digestive tract, to the common bile duct opening. The endoscope lets the doctor see the common bile and pancreatic ductson a video screen. A cut may be made where the common bile duct opens to the duodenum to make it easier to remove stones. As blockages are located and removed, X-rays are taken. Contrast dye is injected through a catheter to make the duct show up better on the X-ray s. An imaging technique that uses X-rays to obtain real-time moving images of internal orga ns is called fluoroscopy. Fluoroscopy is used to watch and guide progress of the procedure. In some cases, a plastic tube (stent) is placed to hold the ducts open. This stent may b e replaced or removed in 6 to 8weeks. Or it may be left to fall out on its own and be pass ed in the stool. What happens after ERCP? Your doctor may discuss the test results right away or a return visit may be scheduled. You may go home the same day or spend the night in the hospital. Follow these tips: You can return to a normal routine the day after the ERCP. If a cut was made in the duct, avoid blood-thinning medicines such as aspirin for 5 to 7 days. Call your doctor right away if you have a fever or abdominal pain. These may be signs of an infection or torn bowel. Date Last Reviewed: 12/01/201419994906-1693 [employer]. [address] [place] [address]. All righ ts reserved. This information is not intended as a substitute for professional medical care. Always follow your healthcare professional's instructions. Procedural Sedation (Adult) You have been given medicine by vein to make you sleep during your surgery. This may have i ncluded both a pain medicine and sleeping medicine. Most of the effects have worn off. But y ou may still have some drowsiness for the next 6 to 8 hours. Home care Follow these guidelines when you get home: For the next 8 hours, you should be watched by a responsible adult. This person should m júnior sure your condition is not getting worse. Don't take any medicine by mouth for pain or for sleep during the next 4 hours. These mi ght react with the medicines you were given in the hospital. This could cause a much stronge r response than usual. Don't drink any alcoholfor the next [address], operate dangerous machinery, or make important business or personal decisio nsduring the next 24 hours. Follow-up care Follow up with your healthcare provider if you are not alert and back to your usual level o f activity within 12 hours. When to seek medical advice Call your healthcare provider right away if any of these occur: Drowsiness gets worse Weakness or dizziness gets worse Repeated vomiting You cannot be awakened Date Last Reviewed: 04/01/2016 [employer]. [address] [place] [address]. All righ ts reserved. This information is [...] | | | | 0 | | ([facility]) | | | | | | | MISC | | | | | | + + + +---------+ + + | Bradley-3 Fatty | Take 1 tablet by | [...] encounter H&P Notes Gregor Mccord MD - 10/14/2016 12:35 PM PDTThe patient has had no difficulties following s tent placement. The patient has no questions consent form is signed we'll proceed with sten t removal and reevaluation of the common bile duct Gregor Romero MD - 09/17/2016 5:08 PM PDTFormatting of this no te might be different from the original. Subjective: Patient ID: Scarlet Murguia [...] 3 Years of Education: 12 Occupational History [employer] RETIRED Social History Main Topics Smoking status: [...] Op Note - Gregor Mccord MD - 10/14/2016 12:59 PM PDTERCP was accomplished without difficu lties. The stent was pulled was plugged with some sludge material. Then the same after can nulation with the taper catheter and guidewire placement the duct was swept multiple times w ith a 9-12 balloon. Sludge and small calculi, sand were delivered into the duodenum. There appeared to be some narrowing in the mid common bile duct which we followed up with a MRCP i n one to 2 months -C In structions Provation - Gregor Mccord MD - 10/14/2016 12:25 PM PDTERCP DISCHARGE INSTRUCTIO NS Patient: Scarlet Murguia : 1935 Acct: [id number] Exam Date: Friday, October 14, 2016 Doctor: Ankush Mccord MD Today your physcian performed an [...] da y. Avoiding fatty foods such as Occitan Hankamer, hamburgers, carrera, ham and pork products, wi [...] swallowing. Your doctor recommends these additional instructions: You are being discharged to home. Eat a mechanical soft diet today. Your physician has recommended an MRCP at appointment to be scheduled. Continue your prese nt medications. Return to your primary care physician as previously scheduled. Telephone your GI clinic if symptoms are present. Please call your physician at Work: with any questions or concerns you may have following your procedure. Patient's Signature Nurse's Signature Date: Escort's Si gnature Gregor Mccord MD 10/14/2016 1:11:31 PM This report has been signed electronically.Electronically signed by Gregor Mccord MD at 1:11 PM PDTdocumented in this encounter Plan of Treatment +--------+---------+ + + + | Date | Type | Specialty | Care Team | Description | +--------+---------+ + + + | 05/17/ | Office | Cardiology | [facility] | | | 2019 | Visit | | [address] | | | | | | [address] | | | | | | [place] [address] | | | | | | [phone] | | | | | | | [...] + + + | ERCP | | 10/14/2016 | | | | | | 12:35 PM | Choledocholithiasis | | | | | PDT | (K80.50), Dilated | | | | | | bile duct (K83.8), | | | | | | Advanced Age (R54) | | + +--------+ + + + | ERCP | Routin | 10/14/2016 | | Results for this | | | e | 12:25 PM | | procedure are in the [...] | | + +---------+ + + ERCP (10/14/2016 12:25 PM PDT) + + | Specimen | + + | | + + + + -+ | Narrative | Performed At | + + -+ | | [facility] | | GastroenterologyPatient Name: NovemberProcedure Date: 10/14/2016 12:25 | [facility]OVATION | | PMMRN: [id number] #: [id number] of : 1935dmit | | | Type: AmbulatoryAge: 80Room: [facility] 01Gender: FemaleNote Status: | | | FinalizedAttending MD: Gregor Mccord , MDProcedure: | | | ERCPIndications: Biliary stent removalProviders: | | | Gregor Mccord MD, Jalyn Ring RN, Parul | | | ROBI Tello, Harinder Mcgowan MD (Anesthesia | | | Staff)Referring MD: Susan Zamora (Referring | | | MD)Medicines: Sedation Required Anesthesia Staff | | | AssistanceComplications: No immediate complications. Estimated | | | blood loss: Minimal.Procedure: Pre-Anesthesia Assessment: | | | - Prior to the procedure, a History and Physical was performed, and | | | patient medications, allergies and sensitivities were reviewed. | | | The patient's tolerance of previous anesthesia was reviewed. | | | - Prior to the procedure, a History and Physical was performed, | | | and patient medications and allergies were reviewed. The | | | patient is competent. The risks and benefits of the procedure | | | and the sedation options and risks were discussed with the | | | patient. All questions were answered and informed consent was | | | obtained. Patient identification and proposed procedure were | | | verified by the physician, the nurse, the anesthesiologist and | | | the lamination technician in the endoscopy suite. Mental Status | | | Examination: alert and oriented. Airway Examination: normal | | | oropharyngeal airway and neck mobility and Mallampati Class II (the | | | uvula but not tonsillar pillars visualized). Prophylactic | | | Antibiotics: The patient does not require prophylactic | | | antibiotics. Prior Anticoagulants: The patient has taken no | | | previous anticoagulant or antiplatelet agents. ASA Grade | | | Assessment: II - A patient with mild systemic disease. After | | | reviewing the risks and benefits, the patient was deemed in | | | satisfactory condition to undergo the procedure. The anesthesia | | | plan was to use monitored anesthesia care (MAC). Immediately | | | prior to administration of medications, the patient was re-assessed | | | for adequacy to receive sedatives. The heart rate, respiratory | | | rate, oxygen saturations, blood pressure, adequacy of pulmonary | | | ventilation, and response to care were monitored throughout | | | the procedure. The physical status of the patient was | | | re-assessed after the procedure. - After reviewing the risks and | | | benefits, the patient was deemed in satisfactory condition to | | | undergo the procedure. - Using IV propofol under the supervision | | | of an anesthesiologist was determined to be medically | | | necessary for this procedure based on age 65 or older, | | | patient's anxiety and complex procedure (ERCP, EUS). - | | | Immediately prior to administration of medications, the patient was | | | re-assessed for adequacy to receive sedatives. - The heart | | | rate, respiratory rate, oxygen saturations, blood pressure, | | | adequacy of pulmonary ventilation, and response to care were monitored | | | throughout the procedure. - The physical status of the | | | patient was re-assessed after the procedure. After obtaining | | | informed consent, the scope was passed under direct vision. | | | Throughout the procedure, the patient's blood pressure, pulse, | | | and oxygen saturations were monitored continuously. The endoscope was | | | introduced through the mouth, and advanced to the duodenum and | | | used to inject contrast into the bile duct. The ERCP was | | | accomplished without difficulty. The patient tolerated the | | | procedure well.Findings: A biliary stent was visible on the | | | benefits assistant film. The esophagus was successfully intubated under | | | direct vision. The scope was advanced to a normal major papilla | | | in the descending duodenum without detailed examination of the | | | pharynx, larynx and associated structures, and upper GI tract. | | | The upper GI tract was grossly normal. One temporary stent | | | originating in the biliary tree was emerging from the major papilla. | | | The stent was partially occluded. One stent was removed from | | | the biliary tree using a snare. A long 0.035 inch Soft Jagwire | | | was passed into the biliary tree. The 3-4-5 taper-tip cannula | | | was passed over the guidewire and the bile duct was then deeply | | | cannulated. Contrast was injected. I personally interpreted | | | the bile duct images. There was brisk flow of contrast through | | | the ducts. Image quality was adequate. Contrast extended to the | | | main bile duct. The upper third of the main bile duct was | | | moderately dilated and diffusely dilated. To discover objects, the | | | biliary tree was swept with a 9 mm balloon and 12 mm balloon | | | starting at the bifurcation. Debris was swept from the duct. | | | Sludge was swept from the duct.Impression: - One | | | partially occluded stent from the biliary tree was seen in the | | | major papilla. - The upper third of the main bile duct was | | | moderately dilated. - One stent was removed from the biliary | | | tree. - The biliary tree was swept and debris and sludge were | | | found. The duct was swept multiple times from the bifurcation. | | | There appeared to be narrowing in the mid bile | | | ductRecommendation: - Discharge patient to home (ambulatory). | | | - Mechanical soft diet today. - Perform MRCP at appointment | | | to be scheduled. - Continue present medications. - Return | | | to primary care physician as previously scheduled. - Telephone | | | GI clinic if symptomatic.Gregor Mccord MD10/14/2016 1:11:31 PMThis | | | report has been signed electronically.Number of Addenda: 0Note | | | Initiated On: 10/14/2016 12:25 PMScope Withdrawal Time: 0 hours 0 | | | minutes 12 seconds Total Procedure Duration: 0 hours 14 minutes 51 | | | seconds Scope In: 12:40:12 PMScope Out: 12:55:03 PM [place] | | | [facility], [address] [place] [address] | | | [phone] | | | - Continue present medications. | | | - Return to primary care physician as previously scheduled. | | | - Telephone GI clinic if symptomatic. | | |Gregor Mccord MD | | |10/14/2016 1:11:31 PM | | |This report has been signed electronically. | | |Number of Addenda: 0 | | |Note Initiated On: 10/14/2016 12:25 PM | | |Scope Withdrawal Time: 0 hours 0 minutes 12 seconds | | |Total Procedure Duration: 0 hours 14 minutes 51 seconds | | |Scope In: 12:40:12 PM | | |Scope Out: 12:55:03 PM | | | [facility], [address] [place] [address] | | | [id number] | | + + -+ + +---------+ [...] +---------+ +---+-------+---+ +---+---+ | | | +---+---+ documented in this encounter
--- OUTSIDE RECORDS SUMMARY | ~2020-02-22 | XMS | Encounter Summary ---
Demographics + + + | Address | [address] | | | [place] [address] | + + + | Home Phone [...] Team Providers + +------+ + | Care Ceramics Teacher Name | Role | Phone | [...] + + | 04/07/ | Office | [facility] | Malcom Mojica, | Hyper reflexia | | 2016 | Visit | PHYSIATRY [address] | [address] | (Primary Dx) | | | | [place] [address] | [address] [place], | | | | | [place] | [place] [address] | | | | | [address] | [phone] | | | | | [phone] | | | +--------+---------+ + + + [...] Consult Note Malcom Mojica MD [address] [facility], [address] [place] [address] FAX: CHIEF COMPLAINT: Chief Complaint Patient presents [...] tablet by mouth Daily. Multiple Vitamins-Minerals ([facility]) MISC Take by mouth. Cascade-3 Fatty Acids (PRO NUTRIENTS OMEGA 3 PO) [...] ankles Coordination: There is no dysmetria on ajbhdu-nk-pvxc and krri-xjic-ryuv. There Romberg is mildly positiv e with [...] not think that any further work-up would exchange architect at this time. Her primary symptoms is also numbness which neuropathic pain medications are typically not very effective in treating so will not make any medication changes today. PLAN: -Follow-up with me ADONISN I spent 45 minutes face to face [...] [address] | | | | | | [place] [address] | | | | | | [phone] | | | | | | | | +--------+---------+ + + + documented as of this encounter Visit Diagnoses + + | Diagnosis | + + | Hyper reflexia - Primary Abnormal reflex | + + documented in this encounter
--- OUTSIDE RECORDS SUMMARY | ~2020-02-22 | XMS | Encounter Summary ---
Demographics + + + | Address | [address] | | | [place] [address] | + + + | Home Phone [...] | Author | [facility] | | | and [place] | + + + | Organization | [facility] | | | [...] Team Providers + +------+ + | Care Blasting Gang Miner Name | Role | Phone | + +------+ + | Susan Leos | PCP | | | PADex | | | + +------+ + Encounter Details +--------+ + + + + | Date | Type | Department | Care Team | Description | +--------+ + + + + | 02/24/ | [facility] | [facility] | Malcom Mojica, | Peripheral | | 2016 | Encounter | [facility] | [address] | sueropathy | | | | [address] | [address] [place], | | | | | [place] | [place] [address] | | | | | [address] | [phone] | | | | | [phone] | | | +--------+ + + + [...] | | | | 0 | | ([facility]) | | | | | | | MISC | | | | | | + + + +---------+--------+ + | [place]-3 Fatty | Take 1 tablet by | [...] | | | | | [place] [address] | | | | | | [phone] | | | | | | | [...] | e | 3:39 PM | polyneuropathy | procedure are in the | | | | PDT | | results section. | + +--------+ + + + | HEPATITIS A, B, C | Routin | 02/25/2016 | Peripheral | Results for this | | PANEL, REFLEX | e | 3:39 PM | polyneuropathy | procedure are in the | | | | PDT | | results section. | + +--------+ + + + | METHYLMALONIC ACID, | Routin | 02/25/2016 | Peripheral | Results for this | | QUANT | e | 3:39 PM | polyneuropathy | procedure are in the | | | | PDT | | results section. | + +--------+ + + + | COPPER, SERUM | Routin | 02/25/2016 | Peripheral | Results for this | | | e | 3:39 PM | polyneuropathy | procedure are in the | | | | PDT | | results section. | + +--------+ + + + | TSH | Routin | 02/25/2016 | Peripheral | Results for this | | | e | 3:39 PM | polyneuropathy | procedure are in the | | | | PDT | | results section. | + +--------+ + + + | PROTEIN | Routin | 02/25/2016 | Peripheral | Results for this | | ELECTROPHORESIS, | e | 3:39 PM | polyneuropathy | procedure are in [...] [address] | [place] | [phone] | | [facility] | | [address] | | | - LABORATORY | | | | + + + + + Gene AJayce C Panel, Reflex (02/25/2016 3:39 PM PDT) + + + [...] [place] | | | | | | [address] | | | | + + + [...] [address] | [place] [address] | [phone] | + + + + + Protein [...] | + + + | Normal | [facility] | | Vincent Sanchez MD02-27-16 | [facility] | |02-27-16 | [facility] | | | - LABORATORY | + + + + + + + + | Performing | Address | City/State/Zipcode | Phone Number | | Organization | | | | + + + + + | [address] | [address] | [place] | [phone] | | [facility] | | [address] | | | - LABORATORY | | [...] [place] | | | | | | [address] | | | | + + + [...] [address] | [place] [address] | [phone] | + + + + + Methylmalonic [...] [place] | | | | | | [address] | | | | + + + [...] [address] | [place] [address] | [phone] | + + + + + Vitamin B-12 (02/25/2016 3:39 PM PDT) + + + + + + | Component | Value | Ref Range | Performed | Pathologist | | | | | At | Signature | + + + + + + | VITAMIN | 283Comment: DEFICIENT: | 180 - 914 pg/mL | [facility] | | | B-12 | <145 | [...] [address] | [place] | [phone] | | [facility] | | [address] | | | - LABORATORY | | | | + + + + + documented in this encounter Visit Diagnoses + + | Diagnosis | + + | Peripheral polyneuropathy Unspecified hereditary and idiopathic peripheral neuropathy | + + documented in this encounter"
--- OUTSIDE RECORDS SUMMARY | ~2020-02-22 | XMS | Encounter Summary ---
Demographics + + + | Address | [address] | | | [place] [address] | + + + | Home Phone [...] Author | [facility] | | | and [place] | + + + | Organization | [facility] | | [...] Team Providers + +------+ + | Care Used Car Renovator Name | Role | Phone | + [...] | | | | [address] | [place] [address] | | | | | [address] | [phone] | | | | | [place], [place] | | | | | | [address] | | | | | | [phone] | | | +--------+ + + + [...] Miscellaneous Notes Telephone Encounter - Desiree Martinez, Wind Turbine Sheet Metal Worker - 12/09/2019 2:34 PM PDTCalled a nereyda spoke with patient to follow up on the procedure they had with Dr. Samuels. Patient repor ts doing well, no concerns. CAdocuterry ented in this encounter Plan of Treatment +--------+---------+ + + + | Date | Type | Specialty | Care Team | Description | +--------+---------+ + + + | 05/17/ | Office | Cardiology | Jeniffer Haines | | 2019 | Visit | | [address] | | | | | | [address] | | | | | | [place] [address] | | | | | | [phone] | | | | | | | | +--------+---------+ + + + documented as of this encounter Visit Diagnoses Not on filedocumented in this encounter"
--- OUTSIDE RECORDS SUMMARY | ~2020-02-22 | XMS | Encounter Summary ---
Demographics + + + | Address | [address] | | | [place] [address] | + + + | Home Phone [...] Providers + +------+ + | Care Manager Inspection Name | Role | Phone | + +------+ + | Susan Leos | PCP | | | PA-C | | | + +------+ + Encounter Details +--------+ + + + + | Date | Type | Department | Care Team | Description | +--------+ + + + + | 10/09/ | Episode | [facility] | Sonali Garcia | | | 2017 | Changes | GASTROENTEROLOGY | M, RN | | | | | [address] | | | | | | [address] [place] | | | | | | [address] | | | | | | [phone] | | | +--------+ + + + [...] | | | | | [place] [address] | | | | | | [phone] | | | | | | | | +--------+---------+ + + + documented as of this encounter Visit Diagnoses Not on filedocumented in this encounter"
--- OUTSIDE RECORDS SUMMARY | ~2020-02-22 | XMS | Encounter Summary ---
Demographics + + + | Address | [address] | | | [place] [address] | + + + | Home Phone [...] Author | [facility] | | | and [place] | + + + | Organization | [facility] | | | [...] Team Providers + +------+ + | Care Clinical Data Research Name | Role | Phone | + +------+ + | Susan Leos | PCP | | | PA-C | | | + +------+ + Reason for Visit + + + | Reason | Comments | + + + | Follow-up | TFE BiLat L3 | + + + Evaluate & Treat (Routine) + + + + + + + | Status | Reason | Specialty | Diagnoses / | Referred By | Referred To | | | | | Procedures | Contact | Contact | + + + + + + + | Authorized | Specialty | Pain Medicine | Diagnoses | Nan, | [facility] | | | Services | | Spinal | Mark Foley MD | [place] | | | Required | | stenosis, | [address] | Pain | | | | | lumbar | [address] | Management | | | | | region, with | [place], | [address] | | | | | neurogenic | [place] [id number] | [facility], | | | | | claudication | Phone: | [place] | | | | | | [phone] | [address] | | | | | | Fax: | Phone: | | | | | | [phone] | [phone] | | | | | | | Fax: | | | | | | | [phone] | + + + + + + + Encounter Details +--------+---------+ + + + | Date | Type | Department | Care Team | Description | +--------+---------+ + + + | 01/30/ | Office | [facility] | Sam Samuels DO | Spondylolisthesis at | | 2020 | Visit | [facility] | [address] | L4-L5 level | | | | [address] | [place] [address] | (Primary Dx); Lumbar | | | | [address] [place], | [phone] | radiculopathy; | | | | [place] [phone] | | Spinal stenosis of | | | | [phone] | | lumbar region with | | | | | | neurogenic | | | | | | claudication; DDD | | | | | | (degenerative disc | | | | | | disease), lumbar; | | | | | | Sacroiliitis, not | | | | | | elsewhere classified | | | | | | ([facility]) | +--------+---------+ + + + Social History [...] documented in this encounter Progress Notes Sam Samuels, - 01/31/2020 11:30 AM PDT [facility]: Interventional Pain Management 01/31/2020November Jessa Murguia 1935 Chief Complaint Patient presents with Follow-up TFE BiLat L3 HISTORY OF PRESENT ILLNESS Back Pain This is a chronic problem. The current episode started more than 1 year ago. The problem oc curs constantly. The problem is unchanged. The pain is present in the lumbar spine and sacro -iliac. The quality of the pain is described as aching and shooting. The pain radiates to th e right thigh. REVIEW OF SYSTEMS Review of Systems Musculoskeletal: Positive for back pain. Past Medical History: Diagnosis Date Aortic stenosis Bilateral lumbar radiculopathy 02/04/2016 Cholelithiasis with cholecystitis DDD (degenerative disc disease), lumbar 02/04/2016 Diabetes type 2, controlled ([facility]) DVT (deep venous thrombosis) ([facility]) 03/2019 post hip replacement Full dentures upper & lower GERD (gastroesophageal reflux disease) Heart murmur HTN (hypertension) Hyperlipidemia Hypothyroidism Macular degeneration Other intervertebral disc displacement, lumbar region Peripheral neuropathy Pneumonia 2005 Pulmonary emboli ([facility]) 03/2019 after hip replacement Skin cancer Spondylolisthesis at L4-L5 level 02/04/2016 Stress incontinence in female Type 2 diabetes mellitus ([facility]) Past Surgical History: Procedure Laterality Date CHOLECYSTECTOMY COLONOSCOPY 2003; 2009; 2011 polyp's removed CYSTOCELE REPAIR 1972 EPIDURAL STEROID INJECTION Bilateral 12/08/2019 TFE Bilateral L4 EPIDURAL SYERIOD INJECTION Bilateral 12/22/2019 BILAT TFE L3 ERCP N/A 09/26/2016 Procedure: ERCP; Surgeon: Gregor Mccord MD; Location: [facility] MEDICAL PROCEDURE UNIT ERCP N/A 10/14/2016 Procedure: ERCP w/ stent pull; Surgeon: Gregor Mccord MD; Location: [facility] MEDICAL PROCEDU RE UNIT HARDWARE REMOVAL Left 03/29/2019 Procedure: REMOVE HARDWARE LOWER EXTREMITY-HIP; Surgeon: Mark [place] MD; Location : [facility] [place] [place] MAIN OR PARTIAL HYSTERECTOMY 1971 RECTOCELE REPAIR 1991 TAILBONE 1973 broken, partial removal TONSILLECTOMY 1938 TOTAL HIP ARTHROPLASTY Left 03/29/2019 Procedure: Posterior Total Hip Arthroplasty; Surgeon: Mark [place] MD; Location: [facility] MAIN OR Allergies Allergen Reactions [...] Twice daily as needed. 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 Social Needs Financial resource strain: Not on file Food insecurity Worry: Not on file Inability: Not on file Transportation needs Medical: Not on file Non-medical: Not on file Tobacco Use Smoking status: Never Smoker Smokeless tobacco: Never Used Substance and Sexual Activity Alcohol use: Yes Alcohol/week: 0.0 standard drinks Comment: once every 2 months Drug use: Yes Types: Marijuana Comment: edibles at night n ight for 5 years Sexual activity: Not on file Lifestyle Physical activity Days per week: Not on file Minutes per session: Not on file Stress: Not on file Relationships Social connections Talks on phone: Not on file Gets together: Not on file Attends uatsdin service: Not on file Active member of club or organization: Not on file Attends meetings of clubs or organizations: Not on file Relationship status: Not on file Intimate partner violence Fear of current or ex partner: Not on file Emotionally abused: Not on file Physically abused: Not on file Forced sexual activity: Not on file Other Topics Concern Not on file Social History Narrative Not on file PHYSICAL EXAM Vital Signs: BP 128/68 | Pulse 66 | Temp 36.9 C (98.4 F) | Ht 1.676 m (5' 6") | Wt 69.9 kg (154 lb) | SpO2 98% | BMI 24.86 kg/m Physical Exam Ortho Exam DATA No results found for this or any previous visit (from the past 360 hour(s)). PROBLEM LIST 1. Spondylolisthesis at L4-L5 level 2. Lumbar radiculopathy 3. Spinal stenosis of lumbar region with neurogenic claudication 4. DDD (degenerative disc disease), lumbar 5. Sacroiliitis, not elsewhere classified (HCC) ASSESSMENT & PLAN Mrs. Murguia is an 84-year-old female, here following up after 2 transforaminal epidural ster oid injection. She is no longer having any radicular symptoms. Her biggest complaint is he r SI joints where tenderness to palpation, positive GILBERTO, Landers's and compression tests co rresponding with her SI joint that is the biggest complaint that she has at this time. For this reason, we did discuss doing a bilateral SI joint injection. We did go over the risks and benefits of the procedure as well as the description of the procedure itself. She unde rstands the risks involved. Does agree with the plan. We do look forward to continue parti cipating in her care. Plan, alternatives, risks and potential benefits of [...] Leos PA-C follow up Sam Samuels DO 01/31/2020 This document has been prepared with [employer] voice recognition system. The possibility of "s ound alike" jewel stripper errors, and additions, or deletions may occur. [...] [address] | | | | | | [place] [address] | | | | | | [phone] | | | | | | | [...] | intervertebral disc | + + | Sacroiliitis, not elsewhere classified (HCC) Sacroiliitis, not elsewhere classified | + + documented in this encounter
--- OUTSIDE RECORDS SUMMARY | ~2020-02-22 | XMS | Encounter Summary ---
Demographics + + + | Address | [address] | | | [place] [address] | + + + | Home Phone [...] + | Author | [facility] | | | and [place] | + + + | Organization | [facility] | | | [...] Providers + +------+ + | Care Manager Freelance Name | Role | Phone | + +------+ + | Susan Leos | PCP | | | PA-C | | | + +------+ + Reason for Visit + + + | Reason | Comments | + + + | Follow-up | 6 week f/u, echo done | + + + Encounter Details +--------+---------+ + + + | Date | Type | Department | Care Team | Description | +--------+---------+ + + + | 11/16/ | Office | [facility] | Jeniffer Haines | Essential | | 2020 | Visit | CARDIOLOGY JAMIL | [address] | hypertension | | | | [address] | [address] [address] | (Primary Dx); Mixed | | | | [address] | [place] [address] | hyperlipidemia; Mild | | | | [place] | [phone] | aortic stenosis by | | | | [address] | | prior | | | | [phone] | | echocardiogram; | | | | | | Systolic murmur; | | | | | | History of syncope; | | | | | | Dyspnea on exertion; | | | | | | Hypothyroidism, | | | | | | unspecified type | +--------+---------+ + + + Social History [...] + + + | Blood Pressure | 118/58 | 11/17/2019 2:33 PM | | | | | PDT | | + + + + + | Pulse | 55 | 11/17/2019 2:33 PM | | | | | PDT | | + + + + + | Temperature | - | - | | + + + + + | Respiratory Rate | - | - | | + + + + + | Oxygen Saturation | 99% | 11/17/2019 2:33 PM | | | | | PDT | | + + + + + | Inhaled Oxygen | - | - | | | Concentration | | | | + + + + + | Weight | 70 kg (154 lb 6.4 | 11/17/2019 2:33 PM | | | | oz) | PDT | | + + + + + | Height | 167.6 cm (5' 6") | 11/17/2019 2:33 PM | | | | | PDT | | + + + + + | Body Mass Index | 24.92 | 11/17/2019 2:33 PM | | | | | PDT | | + + + + + documented in this encounter Patient Instructions Patient Instructions Jeniffer Haines FNP - 11/17/2019 2:30 PM PDTPlease bring your m edication bottles to all clinic visits to help us maintain safe care for you, and ensure acc urate medication record Your Echo shows normal pumping function and mild aortic stenosis ,and should be repeated in one year . 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 Date of visit: 11/17/2019 Primary Care Physician: Susan Leos PA-C CHIEF COMPLAINT: Chief Complaint Patient presents with Follow-up 6 week f/u, echo done HISTORY OF PRESENT ILLNESS: Ms Ewelina Murguia is an 83 year old woman who is here today to follow up on her Echo. She is accompanied today by her daughter due to her poor memory, and who contributed to h istory She is a patient of and last seen by her 06/30/2019 for initial consultation for a murmer and syncopal episodes, and ordered her an Echo and 1 month event monitor . Today, I reviewed all previous documentation available to me in electronic medical alyssa rds and from external sources. She has a history of murmur since childhood, recurrent syncope, hypertension, hypothyroidis m , and provoked DVT and PE after ORIF for hip fracture treated with Xarelto now stopped,chr onic anemia, dyspnea, neuropathy and GERD. There is a mention of aortic stenosis from 2017 on external records, but I was unable to fi nd any Echo results to support this, neither she nor her daughter thought she has ever had a n Echo, or been diagnosed with aortic stenosis, though her recent 2019 Echo now demonstrates this. Her current and previous testing and procedures are detailed below She reports today not had any syncopal episodes or any dizziness or lightheadedness since she saw Dr. Griffin in June. She reports some dyspnea with more extreme exertion, at rest, and denies any chest pain, palpitations, or any signs or symptoms of stroke or TIA. She also denies any emergency ebenezer m visits or hospitalizations since she saw her last. She also continues to suffer from neuropathy which also contributes to her falls and lac k of balance, and she mobilizes with a cane. She rarely drinks alcohol, but does take [...] edibles on nightl y basis for 5 years. Drinks 1-2 cups coffee daily. Denies other recreational or illicit d rug use. Exercises Rarely due to poor balance. Lives in [place]. since 2018. 2 d aughters. Outpatient Medications Prior to Visit Medication Sig Dispense Refill Ascorbic Acid (VITAMIN C) 500 MG CAPS Take 500 mg by mouth Daily. aspirin 81 mg EC tablet Take 81 mg by mouth Daily. atenolol (TENORMIN) 25 mg tablet Take 25 mg by mouth Daily. atenolol (TENORMIN) 50 mg tablet Take 50 mg by mouth Daily. [employer] TRIPLE MAGNESIUM COMPLEX PO Take 400 mg by mouth Daily. docusate sodium (COLACE) 100 mg capsule Take 100 mg by mouth Twice daily as needed. QA-Xhwfoklqak-Ibvspxiijsjohr (FOLBIC PO) Take 1 capsule by mouth Daily. ferrous sulfate 325 mg tablet Take 325 mg by mouth daily (with breakfast). gabapentin (NEURONTIN) 300 mg capsule Take 600 mg by mouth 3 times daily. Takes 60o mg in am , 300 mg at noon, and 600 mg at night Garlic 1000 MG CAPS Take 1 tablet by mouth Daily. levothyroxine (SYNTHROID, LEVOTHROID) 100 mcg tablet Take 100 mcg by mouth every mornin g (before breakfast). losartan (COZAAR) 50 mg tablet Take 50 mg by mouth Daily. Multiple Vitamins-Minerals (MACULAR HEALTH FORMULA) CAPS Take 1 capful by mouth Daily. Multiple Vitamins-Minerals ( MACULAR HEALTH) MISC Take by mouth. [place]-3 Fatty Acids (OMEGA-3 2100 PO) Take by mouth. omeprazole (PRILOSEC) 20 mg capsule Take 20 mg by mouth every morning (before breakfast ). ondansetron (ZOFRAN ODT) 4 mg disintegrating tablet Take 4 mg by mouth every 8 hours as needed. POTASSIUM CITRATE PO Take 99 mg by mouth Daily. Psyllium (METAMUCIL PO) Take 1 Dose by mouth as needed. venlafaxine (EFFEXOR XR) 75 mg 24 hr capsule Take 75 mg by mouth Daily. 3 No facility-administered medications prior to visit. PHYSICAL EXAM: Wt Readings from Last 3 Encounters: 11/17/19 70 kg (154 lb 6.4 oz) 10/13/19 70.4 kg (155 lb 1.6 oz) 08/15/19 70.3 kg (155 lb) Temp Readings from Last 3 Encounters: 03/31/19 36.5 C (97.7 F) (Oral) 10/14/16 36.2 C (97.2 F) 09/26/16 37 C (98.6 F) (Temporal) BP Readings from Last 3 Encounters: 11/17/19 118/58 10/13/19 128/60 06/30/19 138/60 Pulse Readings from Last 3 Encounters: 11/17/19 55 10/13/19 58 08/15/19 57 GENERAL: Thin older woman , in no [...] CARDIAC PROCEDURES/IMAGING-none VASCULAR TESTING AND PROCEDURES-none ECHO Echo: 10/17/2019: ( [facility]) EF 65%, LV normal in size and wall thickness, no regional wall karlie on abnormalities, mild grade 1 diastolic dysfunction. RV normal in size and function. Norm al size atria, Doppler imaging suggestive of ASD/PFO with bwlk-sf-esiwx shunt. Aortic valve trileaflet, mildly calcific, mild aortic stenosis, mean pressure gradient across the valve is 9 mmHg, KASSI 1.88 cm, no AI. Trace MR, mitral valve thickened with no stenosis. Trace TR with velocity 2.4 m/s, estimated PASP 26 mmHg, no pulmonary hypertension. Pulmonic valve not well visualized. Sinus of Valsalva through ascending aorta normal caliber, IVC WNL. C ardial or pleural effusion. ( discussed with Dr. Griffin, did not want ROMAIN has no enlargement t o right heart chambers, but would like echo repeated in 1 year) EKG/EVENT MONITOR 1 month event monitor:07/07-08/06/2019: Sinus [...] ST-T wa ve abnormalities. Rate 65 bpm, SC 172 ms, QRS 84 ms, QTC 428 ms, tracing personally reviewe d by tn LABS Labs: 05/11/2019 CMP: Sodium 133, potassium [...] with her daughter to follow up on her Echo. She has problems as detailed below. Her Echo performed on October 17, 2019 as detailed above and shows a normal EF of 65%, LV nor mal in size and wall thickness, mild diastolic dysfunction, mild aortic stenosis with no oth er significant valvular disease, RV normal in size and function, and ASD/PFO with left to r ight shunt. I discussed with Dr. Griffin, and she did think ROMAIN needed as no enlargement to ri t heart chambers, but would like echo repeated in 1 year. I reviewed the Echo results in detail with her and her daughter, and discussed that aortic stenosis is a progressive disease, and we will continue to monitor with serial echos. She has not had any further episodes of syncope since she saw Dr. Griffin, and her labs perf ormed since then show improved anemia, and seems to have less shortness of breath with exer tion, and overall she feels she is improved. I made no changes to cardiac medications today, and she should continue aspirin 81 mg da aissatou, atenolol 50 mg daily, losartan 50 mg daily and once daily OTC potassium 99 mg for Hyp okalemia, and magnesium oxide 400 mg twice daily for hypomagnesia. I will see her back in 6 months , but sooner if needed, and she will follow up again with Jessa Griffin in one year. 1. Essential hypertension 2. Mixed hyperlipidemia 3. Mild aortic stenosis by prior echocardiogram 4. Systolic murmur 5. History of syncope 6. Dyspnea on exertion 7. Hypothyroidism, unspecified type No orders of the defined types were placed in this encounter. The following portions of the patient's history [...] previous notes for continuity of care purp ose Wilson CAGLE [facility] documented in t his encounter Plan of Treatment +--------+---------+ + + + | Date | Type | Specialty | Care Team | Description | +--------+---------+ + + + | 05/17/ | Office | Cardiology | Jeniffer Haines | | 2019 | Visit | | [address] | | | | | | [address] | | | | | | [place] [address] | | | | | | [phone] | | | | | | | | +--------+---------+ + + + documented as of this encounter Visit Diagnoses + + | Diagnosis | + + | Essential hypertension - Primary Unspecified essential hypertension | + + | Mixed hyperlipidemia | + + | Mild aortic stenosis by prior echocardiogram Aortic valve disorders | + + | Systolic murmur Undiagnosed cardiac murmurs | + + | History of syncope Personal history of other specified diseases | + + | Dyspnea on exertion Other dyspnea and respiratory abnormality | + + | Hypothyroidism, unspecified type | + + documented in this encounter
--- OUTSIDE RECORDS SUMMARY | ~2020-02-22 | XMS | Encounter Summary ---
Demographics + + + | Address | [address] | | | [place] [address] | + + + | Home Phone [...] Team Providers + +------+ + | Care Guinea Pig Breeder Name | Role | Phone | + [...] + + | 01/01/ | Telephone | [facility] | Sam Samuels DO | Appointment | | 2019 | | [facility] | [address] | | | | | [address] | [place] [address] | | | | | [address] [place], | [phone] | | | | | [place] [address] | | | | | | [phone] | | | +--------+ + + + [...] Miscellaneous Notes Telephone Encounter - Suha Casillas, Assistant Professor Of Marine Biology - 01/02/2020 3:36 PM [facility] and made 4 week f/u appointment [...] | | | | | [place] [address] | | | | | | [phone] | | | | | | | | +--------+---------+ + + + documented as of this encounter Visit Diagnoses Not on filedocumented in this encounter"
--- OUTSIDE RECORDS SUMMARY | ~2020-02-22 | XMS | Encounter Summary ---
Demographics + + + | Address | [address] | | | [place] [address] | + + + | Home Phone [...] + + + | Author | [facility] | | | and [place] | + + + | Organization | [facility] | | | and [...] Providers + +------+ + | Care Biological Lab Technician Name | Role | Phone | [...] [address] | | | | | | [facility] | | | | | | [address] | | | | | | [phone] | | | +--------+ + + + [...] | | | | | [place] [address] | | | | | | [phone] | | | | | | | | +--------+---------+ + + + documented as of this encounter Visit Diagnoses + + | Diagnosis | + + | Other screening mammogram | + + documented in this encounter"
--- OUTSIDE RECORDS SUMMARY | ~2020-02-22 | XMS | Encounter Summary ---
Demographics + + + | Address | [address] | | | [place] [address] | + + + | Home Phone [...] Author | [facility] | | | and [place] | + + + | Organization | [facility] | | [...] Team Providers + +------+ + | Care Crib Clerk Name | Role | Phone | [...] + + | 07/07/ | Documentati | [facility] | Carlotta Peters, | Other (end of study) | | 2020 | on | [facility]IOLOGY [facility] | Technologist | | | | | [address] | | | | | | [place], [place] | | | | | | [address] | | | | | | [phone] | | | +--------+ + + + [...] [address] | | | | | | [place] [address] | | | | | | [phone] | | | | | | | | +--------+---------+ + + + documented as of this encounter Visit Diagnoses + + | Diagnosis | + + | Syncope and collapse | + + | Murmur, heart Undiagnosed cardiac murmurs | + + documented in this encounter
--- OUTSIDE RECORDS SUMMARY | ~2020-02-22 | XMS | Encounter Summary ---
Demographics + + + | Address | [address] | | | [place] [address] | + + + | Home Phone [...] Team Providers + +------+ + | Care Creative Recruiter Name | Role | Phone | [...] + + | 10/14/ | Hospital | [facility] | Gregor Mccord MD | | | 2017 | Encounter | MED CTR XRAY [address] | [address], [place] | | | | | [place] | [address] [place], [place] | | | | | [place] [address] | [address] | | | | | [phone] | | | +--------+ + + + [...] | | | | 0 | | ([facility]) | | | | | | | MISC | | | | | | + + + +---------+ + + | [place]-3 Fatty | Take 1 tablet by | [...] | | | | | [place] [address] | | | | | | [phone] | | | | | | | [...]
--- OUTSIDE RECORDS SUMMARY | ~2020-02-22 | XMS | Encounter Summary ---
Demographics + + + | Address | [address] | | | [place] [address] | + + + | Home Phone [...] | [facility] | | | and [place] | + + + | Organization | [facility] | | | [...] Team Providers + +------+ + | Care Scheduling Assistant Name | Role | Phone | [...] | 03/29/19) | | | | [address] [place], [place] | [place] | | | | | [address] | [place] [address] | | | | | [phone] | [phone] | | | | | | | [...] post operative issues and was seen/treated in [place]. Daughter states that she attempted to call [...] [address] | | | | | | [place] [address] | | | | | | [phone] | | | | | | | | +--------+---------+ + + + documented as of this encounter Visit Diagnoses Not on filedocumented in this encounter"
--- OUTSIDE RECORDS SUMMARY | ~2020-02-22 | XMS | Encounter Summary ---
Demographics + + + | Address | [address] | | | [place] [address] | + + + | Home Phone [...] | Author | [facility] | | | and [place] | + + + | Organization | [facility] | | [...] Team Providers + +------+ + | Care Conductor/Brakeman Name | Role | Phone | + [...] [place] | | | | | | [address] | | | | | | [phone] | | | +--------+ + + + [...] [address]A | | | | | | [place] [address] | | | | | | [phone] | | | | | | | | +--------+---------+ + + + documented as of this encounter Visit Diagnoses + + | Diagnosis | + + | Other screening mammogram | + + documented in this encounter"
--- OUTSIDE RECORDS SUMMARY | ~2020-02-22 | XMS | Encounter Summary ---
Demographics + + + | Address | [address] | | | [place] [address] | + + + | Home Phone [...] Providers + +------+ + | Care Manager Reliability Name | Role | Phone | + [...] [place] | | | | | | [address] | | | | | | [phone] | | | +--------+ + + + [...] [address] | | | | | | [place] [address] | | | | | | [phone] | | | | | | | | +--------+---------+ + + + documented as of this encounter Visit Diagnoses Not on filedocumented in this encounter"
--- OUTSIDE RECORDS SUMMARY | ~2020-02-22 | XMS | Encounter Summary ---
Demographics + + + | Address | [address] | | | [place] [address] | + + + | Home Phone | | + + + | Preferred Language | Unknown | + + + | Marital Status | | + + + | Yarsani Affiliation | 1077 | + + + | Race | White | + + + | Ethnic Group | Not or | + + + Author + + + | Author | [facility] | | | and [place] | + + + | Organization | [facility] | | | [...] Team Providers + +------+ + | Care Metal Lather Name | Role | Phone | + [...] | y, lumbar | ST | [address] [place], | | | | | region TFE | [place], [place] | [place] [address] | | | | | Lumbar | [address] | Phone: | | | | | BiLat L4 | Phone: | [phone] | | | | | (03-26) | [phone] | Fax: | | | | | Procedures | Fax: | [phone] | | | | | [place] INJECT | [phone] | | | | | | ANES/STEROID | | | | | | | FORAMEN | | | | | | | LUMBAR/SACRA | | | | | | | L W IMG | | | | | | | GUIDE ,1 | | | | | | | LEVEL [place] | | | | | | | [...] + + | 12/07/ | Hospital | [facility] | Sam Samuels DO | Spondylolisthesis at | | 2020 | Encounter | INTERVENTIONAL PAIN | [address] | L4-L5 level | | | | MGMT [address] | [place] [address] | (Primary Dx); Lumbar | | | | [facility], | [phone] | radiculopathy; | | | | [place] [address] | | Spinal stenosis of | | | | [phone] | | lumbar region with | | [...] and his staff can be contacted at [phone]. If you are unable to contact your doctor or their associate, you may come to the Emergency Department at [facility]. These instructions have been explained to [...] | | 0 | | | | YO-Bszbnudstp-Kctydx | mouth Daily. | | | | [...] PDT OPERATIVE REPORT NAME: Scarlet Murguia MR#: [id number] : 1935 DATE: 12/08/2019 SURGEON Sam Samuels [...] to the 6 o'clock position of the U6wrzfonuu respectively. The entire procedure was repeated on [...] olone and 4.5 ml of 0.25% Naropin. [place] were removed intact, skin was cleansed, and [...] | | | | | | [address] | | | | | | [place] [address] | | | | | | [phone] | | | | | | | [...]
--- OUTSIDE RECORDS SUMMARY | ~2020-02-22 | XMS | Encounter Summary ---
Demographics + + + | Address | [address] | | | [place] [address] | + + + | Home Phone [...] Team Providers + +------+ + | Care Meal Grinder Tender Name | Role | Phone | [...] + + | 09/05/ | Telephone | [facility] | Gregor Mccord MD | Referral | | 2017 | | GASTROENTEROLOGY | [address], [place] | | | | | [address] [place] | [address] [place], [place] | | | | | [address] [place], [place] | [address] | | | | | [address] | | | | | | [phone] | | | +--------+ + + + [...] her know if it is possible at [phone]. If it is not, please route back to the [facility] office along with reasoning and we will [...] [address]A | | | | | | [place] [address] | | | | | | [phone] | | | | | | | | +--------+---------+ + + + documented as of this encounter Visit Diagnoses Not on filedocumented in this encounter"
--- OUTSIDE RECORDS SUMMARY | ~2020-02-22 | XMS | Encounter Summary ---
Demographics + + + | Address | [address] | | | [place] [address] | + + + | Home Phone [...] + +------+ + | Care Grain Elevator Clerk Name | Role | Phone | [...] + + | 10/22/ | Telephone | [facility] | Gregor Mccord MD | Imaging Only (MRI | | 2017 | | GASTROENTEROLOGY | [address], [place] | MRCP Liver without | | | | [address] [place] | [address] [place], [place] | contrast scheduled) | | | | [address] [place], [place] | [address] | | | | | [address] | | | | | | [phone] | | | +--------+ + + + [...] time of 1230 for a 1300 appointment. Caden nt is to be NPO for 6 hours prior. Patient is notified, and thanks us for scheduling her.Nimco ctronically signed by Mary Watson CMA at 10/22/2016 10:23 AM PDTdocumented in this encou nter Plan of Treatment +--------+---------+ + + + | Date | Type | Specialty | Care Team | Description | +--------+---------+ + + + | 05/17/ | Office | Cardiology | Jeniffer Haines | | | 2019 | Visit | | [address] | | | | | | [address] | | | | | | [place] [address] | | | | | | [phone] | | | | | | | | +--------+---------+ + + + documented as of this encounter Visit Diagnoses Not on filedocumented in this encounter"
--- OUTSIDE RECORDS SUMMARY | ~2020-02-22 | XMS | Encounter Summary ---
Demographics + + + | Address | [address] | | | [place] [address] | + + + | Home Phone [...] | Author | [facility] | | | and [place] | + + + | Organization | [facility] | | | [...] Team Providers + +------+ + | Care Engraver Ornamental Design Name | Role | Phone | + [...] | | | | | Spondylolist | [place] | [address] | | | | | hesis at | [address] | Phone: | | | | | L4-L5 level | Phone: | [phone] | | | | | Bilateral | [phone] | Fax: | | | | | lumbar | Fax: | [phone] | | | | | radiculopath | [phone] | | | | | | y [...] | | [place], [place] | [place] [address] | Spondylolisthesis | | | | [address] | [phone] | at L4-L5 level; | | | | [phone] | | Bilateral lumbar | | | [...] F | | | | | | [place] [address] | | | | | | [phone] | | | | | | | | +--------+---------+ + + + + + +--------+ + + | Name | Type | Priori | Associated Diagnoses | Order Schedule | | | | ty | | | + + +--------+ + + | AMB REFERRAL TO [facility] | Outpatient | Routin | DDD [...]
--- OUTSIDE RECORDS SUMMARY | ~2020-02-22 | XMS | Encounter Summary ---
Demographics + + + | Address | [address] | | | [place] [address] | + + + | Home Phone [...] + | Author | [facility] | | | and [place] | + + + | Organization | [facility] | | | [...] Team Providers + +------+ + | Care Breaker Table Worker Name | Role | Phone | + +------+ + | Susan Leos | PCP | | | PA-C | | | + +------+ + Reason for Visit +--------+--------+ + | Reason | Onset | Comments | | | Date | | +--------+--------+ + | Other | 11/03/ | | | | 2016 | | +--------+--------+ + Encounter Details +--------+ + + + + | Date | Type | Department | Care Team | Description | +--------+ + + + + | 11/03/ | Telephone | [facility] | Gregor Mccord MD | Other | | 2016 | | GASTROENTEROLOGY | [address], [place] | | | | | [address] [place] | [address] [place], [place] | | | | | [address] [place], [place] | [address] | | | | | [address] | | | | | | [phone] | | | +--------+ + + + [...] Telephone Encounter - Sonali Garcia RN - 11/03/2016 9:42 AM PDTPatient calls for r esults of MRCP. She continues to have loose explosive stools usually once or twice a day. . No further vomiting. No abd pain. Told patient I will confer with DR Mccord and call her ba ck. documented in this encounter Plan of Treatment +--------+---------+ + + + | Date | Type | Specialty | Care Team | Description | +--------+---------+ + + + | 05/17/ | Office | Cardiology | Jeniffer Haines | | | 2019 | Visit | | [address] | | | | | | [address] | | | | | | [place] [address] | | | | | | [phone] | | | | | | | | +--------+---------+ + + + documented as of this encounter Visit Diagnoses Not on filedocumented in this encounter"
--- OUTSIDE RECORDS SUMMARY | ~2020-02-22 | XMS | Encounter Summary ---
Demographics + + + | Address | [address] | | | [place] [address] | + + + | Home Phone [...] Providers + +------+ + | Care Golf Technician Name | Role | Phone | [...] | | | | | (degenerativ | [place], [place] | | | | | | e disc | [address] | | | | | | disease), | Phone: | | | | | | lumbar | [phone] | | | | | | Bilateral | Fax: | | | | | | lumbar | [phone] | | | | | | radiculopath [...] | | | [place], [place] | [place] [address] | | | | | [address] | [phone] | | | | | [phone] | | | +--------+ + + + [...] Lumbar MR I has been completed at [facility]. Images and report have been [...] [address] | | | | | | [place] [address] | | | | | | [phone] | | | | | | | [...] +--------+ + + | AMB REFERRAL TO [facility] | Outpatient | Routin | Spondylolisthesis [...]
--- OUTSIDE RECORDS SUMMARY | ~2020-02-22 | XMS | Encounter Summary ---
Demographics + + + | Address | [address] | | | [place] [address] | + + + | Home Phone [...] Team Providers + +------+ + | Care Lean Manager Name | Role | Phone | [...] + + | 11/20/ | Telephone | [facility] | Sam Samuels, DO | Other (covid | | 2019 | | [facility] | [address] | screening) | | | | MEDICINE [place] | [place] [address] | | | | | [address] | [phone] | | | | | [place], [place] | | | | | | [address] | | | | | | [phone] | | | +--------+ + + + [...] Notes Telephone Encounter - Maria Elena Schmid, Oxyhydrogen Welder - 11/21/2019 12:30 PM PDT Proactive screening [...] [address] | | | | | | [place] [address] | | | | | | [phone] | | | | | | | | +--------+---------+ + + + documented as of this encounter Visit Diagnoses Not on filedocumented in this encounter"
--- OUTSIDE RECORDS SUMMARY | ~2020-02-22 | XMS | Encounter Summary ---
Demographics + + + | Address | [address] | | | [place] [address] | + + + | Home Phone [...] + + + | Author | [facility] | | | and [place] | + + + | Organization | [facility] | | | [...] Team Providers + +------+ + | Care Police Matron Name | Role | Phone | + [...] | | | | | joint | [place], | [place], [place] | | | | | replacement | [place] [address] | [address] | | | | | surgery | Phone: | Phone: | | | | | | [phone] | [phone] | | | | | | Fax: | Fax: | | | | | | [phone] | [phone] | +--------+ + + + + + [...] | | | [facility] | [address], | [place], [place] | | | | | Procedures | [place] | [address] Phone: | | | | | NEW PATIENT | [address] | [phone] | | | | | | Phone: | Fax: | | | | | | [phone] | [phone] | | | | | | Fax: | | | | | | | [phone] | | + +--------+ + + + + Encounter Details +--------+---------+ + + + | Date | Type | Department | Care Team | Description | +--------+---------+ + + + | 05/16/ | Office | [facility] | [place] | Aftercare following | | 2019 | Visit | [address] | MD Alaina [address] | left hip joint | | | | BLVD [place], [place] | [address] | replacement surgery | | | | [address] | [place] [address] | (Primary Dx) | | | | [phone] | [phone] | | | | | | | [...] | +--------+---------+ + + + | 05/17/ Office | Cardiology | Jeniffer Haines | | | 2020 | Visit | | [address] | | | | | | [address] | | | | | | [place] [address] | | | | | | [phone] | | | | | | | [...]
--- OUTSIDE RECORDS SUMMARY | ~2020-02-22 | XMS | Encounter Summary ---
Demographics + + + | Address | [address] | | | [place] [address] | + + + | Home Phone [...] Team Providers + +------+ + | Care Fountain Roller Assembler Name | Role | Phone | + [...] + + | 03/29/ | Anesthesia | [facility] | Michela Eli | | | 2019 | [facility] | MD Jena [address] | | | | | OPERATING RO[address] | [place], [place] | | | | | [facility] | [address] | | | | | [place] | | | | | | [address] | | | | | | [phone] | | | +--------+ + + + [...] +----+---+ + + | | 0 | [place] | | | | 8 | 43-degrees [...] 03/30/19 043 by | | roslyn | ebam-[id number]-[id number] catheter system; | Paula Young RN | [...] EVALUATION November Murguia 83 y.o. female 1935 [id number] Procedure(s) Posterior Total Hip Arthroplasty (Left Hip) [...] signed by Michela Eli MD 03/29/2019 11:33 [facility] by Michela Eli MD at 2018 11:34 AM PDTAnesthesia Procedure Notes - Michela Eil MD - 03/29/2019 7:52 AM PDTAssociated Order(s): [...] EVALUATION Scarlet Murguia 83 y.o. female 1935 [id number] Procedure(s): Posterior Total Hip Arthroplasty (Left Hip) [...] Scarlet Germain Murguia 83 y.o. female 1935 [id number] Posterior Total Hip Arthroplasty (Left Hip) REMOVE [...] receiving team. Michela Eli MD 03/29/2019 9:22 [facility] signed by Michela Eli MD [...] [address] | | | | | | [place] [address] | | | | | | [phone] | | | | | | | [...]
--- OUTSIDE RECORDS SUMMARY | ~2020-02-22 | XMS | Encounter Summary ---
Demographics + + + | Address | [address] | | | [place] [address] | + + + | Home Phone [...] Team Providers + +------+ + | Care Finisher Polisher Name | Role | Phone | + [...] | | | | region, with | [place], | [facility] [address] | | | | | [place]genic | [place] [address] | [facility], | | | | | claudication | Phone: | [place] | | | | | | [phone] | [address] | | | | | | Fax: | Phone: | | | | | | [phone] | [phone] | | | | | | | Fax: | | | | | | | [phone] | + + + + + + + Encounter Details +--------+---------+ + + + | Date | Type | Department | Care Team | Description | +--------+---------+ + + + | 11/21/ | Office | [facility] | Sam Samuels DO | Spondylolisthesis at | | 2020 | Visit | [facility] | [address] | L4-L5 level | | | | MEDICINE [address] | [place] [address] | (Primary Dx); Lumbar | | | | [address] [place], | [phone] | radiculopathy; | | | | [place] [address] | | Spinal stenosis of | | | | [phone] | | lumbar region with | | [...] Samuels DO - 11/22/2019 1:00 PM PDT [facility]: Interventional Pain Management 11/22/2019November Blade [...] disease), lumbar 02/04/2016 Diabetes type 2, controlled ([facility]) DVT (deep venous thrombosis) ([facility]) 03/2019 post hip replacement Full dentures upper & lower GERD (gastroesophageal reflux disease) Heart murmur HTN (hypertension) Hyperlipidemia Hypothyroidism Macular degeneration Other intervertebral disc displacement, lumbar region Peripheral neuropathy Pneumonia 2005 Pulmonary emboli ([facility]) 03/2019 after hip replacement Skin cancer Spondylolisthesis at L4-L5 level 02/04/2016 Stress incontinence in female Type 2 diabetes mellitus ([facility]) Past Surgical History: Procedure Laterality Date CHOLECYSTECTOMY COLONOSCOPY 2003; 2009; 2011 polyp's removed CYSTOCELE REPAIR 1971 ERCP N/A 09/26/2016 Procedure: ERCP; Surgeon: Gregor Mccord MD; Location: [facility] ERCP N/A 10/14/2016 Procedure: ERCP w/ stent pull; Surgeon: Gregor Mccord MD; Location: [facility] HARDWARE REMOVAL [...] Twice daily as needed. 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 The possibility of "s ound alike" 8th grade teacher errors, and additions, or deletions may occur. [...] [address] | | | | | | [place] [address] | | | | | | [phone] | | | | | | | [...]
--- OUTSIDE RECORDS SUMMARY | ~2020-02-22 | XMS | Encounter Summary ---
Demographics + + + | Address | [address] | | | [place] [address] | + + + | Home Phone [...] Team Providers + +------+ + | Care Lead Warehouse Associate Name | Role | Phone | [...] + + | 03/29/ | Hospital | 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 | | 03/31/ | | [place], [place] | [place] [address] | left hip | | 2019 | | [address] | [phone] | | | | | [phone] | | | +--------+ + + + [...] disease), lumbar 02/04/2016 Diabetes type 2, controlled ([facility]) Full dentures upper & lower GERD (gastroesophageal reflux disease) HTN (hypertension) Hyperlipidemia Hypothyroidism Macular degeneration Other intervertebral disc displacement, lumbar region Peripheral neuropathy Pneumonia 2005 Skin cancer Spondylolisthesis at L4-L5 level 02/04/2016 Stress incontinence in female Type 2 diabetes mellitus ([facility]) Past Surgical History: Procedure Laterality Date CHOLECYSTECTOMY COLONOSCOPY 2003; 2009; 2011 polyp's removed CYSTOCELE REPAIR 1971 ERCP N/A 09/26/2016 Procedure: ERCP; Surgeon: Gregor Mccord MD; Location: [facility] MEDICAL PROCEDURE UNIT ERCP N/A 10/14/2016 Procedure: ERCP w/ stent pull; Surgeon: Gregor Mccord MD; Location: [facility] MEDICAL PROCEDU RE UNIT HARDWARE REMOVAL Left 03/29/2019 Procedure: REMOVE HARDWARE LOWER EXTREMITY-HIP; Surgeon: Mark Montana MD; Location : [facility] MAIN OR PARTIAL [...] Orozco PA-C [address] [place] [facility][note 3] [address] In 2 weeks Discharge Medications Changed Medications [...] | | | | 0 | | ([facility] [place] Stem Cell) | | | | | | | MISC | | | | | | + + + +---------+ + + | Fulton-3 Fatty | Take 1 tablet by | [...] might be different fr om the original. [facility] Progress Note Primary Care Physician: Susan [...] 4 Handrail Location: both sides Level of [place]: stand by assist Assistive Device: 2 rails [...] throughout activities and motivated each other thro [facility] discussion of goals/plans after discharge. Educated [...] LTG Status new at 03/29/2019 1246 LTG [place] Level modified independent at 03/29/2019 1246 LTG Assistive Device none at 03/29/2019 1246 All Transfers Goal Most Recent Value LTG Status new at 03/29/2019 1246 LTG [place] Level stand by assist at 03/29/2019 1246 LTG Assistive Device 2 wheeled walker (FWW) at 03/29/2019 1246 Stair Goal Most Recent Value LTG Status new at 03/29/2019 1246 LTG [place] Level contact guard assist at 03/29/2019 1246 LTG Assistive Device 2 rails at 03/29/2019 1246 LTG Number of Stairs 5 at 03/29/2019 1246 lan of Care - Arias Villar, GROUP INSURANCE SPECIAL AGENT - 03/31/2019 8:57 AM PDT Physical Therapy [...] oriented x 4 Transfers Sit-Stand, Level of [place]: stand by assist Stand-Sit, Level of [place]: stand by assist Ncu-Egffh-Tgd, Assistive Device: 2 wheeled walker (FWW) Safety Issues: stands too far from assistive device Impairments: ROM decreased, strength decreased Gait Level of [place]: stand by assist Assistive Device: 2 wheeled [...] LTG Status new at 03/29/2019 1246 LTG [place] Level modified independent at 03/29/2019 1246 LTG Assistive Device none at 03/29/2019 1246 All Transfers Goal Most Recent Value LTG Status new at 03/29/2019 1246 LTG [place] Level stand by assist at 03/29/2019 1246 LTG Assistive Device 2 wheeled walker (FWW) at 03/29/2019 1246 Stair Goal Most Recent Value LTG Status new at 03/29/2019 1246 LTG [place] Level contact guard assist at 03/29/2019 1246 [...] Recommendations: 2 wheeled walker (FWW), sock aide, flour worker, long handled sponge Barriers to community-based discharge [...] washed hands at sink Grooming, Level of [place]: independent Assistive Device: none Grooming Assess/Train, Position: supported standing Grooming Impairments: impaired balance Bathing Upper body dressing donned shirt UB Dressing, Level of [place]: set up required Assistive Device: none UB Dressing Assess/Train, Position: sitting UB Dressing Impairments: impaired balance Lower body dressing donned pants LB Dressing, Level of [place]: minimal assist (75% patient effort), verbal cues requir ed Assistive Device: flour worker LB Dressing Assess/Train, Position: sitting LB Dressing Impairments: ROM decreased, strength decreased, impaired balance Toileting pt urinated in toilet Toileting, Level of [place]: stand by assist Assistive Device: grab bar Toileting Assess/Train, Position: sitting Toileting Impairments: strength decreased, impaired balance IADLs FUNCTIONAL MOBILITY Bed Mobility Transfers Sit-Stand, Level of [place]: contact guard assist, verbal cues required Stand-Sit, Level of [place]: contact guard assist, verbal cues required Uxh-Euluh-Fqh, Assistive Device: 2 wheeled walker (FWW) Toilet, Level of [place]: contact guard assist, verbal cues required Toilet, Assistive Device: grab bars, 2 wheeled walker (FWW) Walk-in shower, Level of [place]: contact guard assist, verbal cues required Walk-in [...] Value STG Status new at 03/30/2019654 STG [place] Level set up required at 03/30/2019654 STG Adaptive Equipment flour worker, shoe horn, long handled, sock-aid at 03/30/2019654 [...] oriented x 4 Transfers Sit-Stand, Level of [place]: minimal assist (75% patient effort) Stand-Sit, Level of [place]: minimal assist (75% patient effort) Uzv-Fshzr-Ben, Assistive Device: 2 wheeled walker (FWW) Safety Issues: stands too far from assistive device Impairments: strength decreased Gait Level of [place]: stand by assist, verbal cues required Assistive [...] LTG Status new at 03/29/2019 1246 LTG [place] Level modified independent at 03/29/2019 1246 LTG Assistive Device none at 03/29/2019 1246 All Transfers Goal Most Recent Value LTG Status new at 03/29/2019 1246 LTG [place] Level stand by assist at 03/29/2019 1246 LTG Assistive Device 2 wheeled walker (FWW) at 03/29/2019 1246 Stair Goal Most Recent Value LTG Status new at 03/29/2019 1246 LTG [place] Level contact guard assist at 03/29/2019 1246 LTG Assistive Device 2 rails at 03/29/2019 1246 LTG Number of Stairs 5 at 03/29/2019 1246 lan of Darby Duarte RN - 03/30/2019 7:10 AM PDT Problem: Postoperative Urinary Retention (Hip Arthroplasty) Goal: Effective Urinary Elimination Intervention: Monitor and Manage Urinary Retention Note: [place] placed on hydraulic rockbreaker operator for urinary retention. Will continue to assess and remove when ready lan of Viv Ley, OT - 03/30/2019 6:55 AM PDT [facility] Occupational Therapy Initial Evaluation Note Recommended discharge disposition: home with assist, snf facility Post discharge occupational therapy recommendation: family [...] assistance. If this is not possible, a snf facility would be good to help build [...] b bars, long handled sponge, raised toilet, flour worker Prior Functional Level Comment: Independent with all [...] cares and washing face. Grooming, Level of [place]: set up required Assistive Device: none Grooming Assess/Train, Position: standing Grooming Impairments: pain(fatigue) Upper Body Dressing Assessment/Training UB Dressing Assess/Train, Comment: Pt able to don bra and shirt while seated EOB. UB Dressing, Level of [place]: set up required Assistive Device: none UB Dressing Assess/Train, Position: sitting UB Dressing Impairments: pain Lower Body Dressing Assessment/Training LB Dressing Assess/Train, Comment: Pt able to don pants and socks while seated EOB. LB Dressing, Level of [place]: minimal assist (75% patient effort) Assistive Device: flour worker, sock-aid LB Dressing Assess/Train, Position: sitting LB Dressing Impairments: pain, strength decreased Toileting Assessment/Training Toileting Assess/Train, Comment: Pt able to sit down for bowel movement. Toileting, Level of [place]: stand by assist Assistive Device: grab bar Toileting Assess/Train, Position: sitting Toileting Impairments: pain Bed Mobility Additional Documentation: scooting/bridging, supine to/from sit, sidelying to/from sit Assistive Device: bed rails, HOB elevated Scoot/Bridge, Level of [place]: stand by assist Supine to Sit, Level of [place]: moderate assist (50% patient effort) Sidelying to Sit, Level of [place]: stand by assist Safety Issues: decreased use of arms for pushing/pulling, impaired trunk control for bed mo bility Impairments: strength decreased, postural control impaired, pain Transfers Additional Documentation: bed to/from chair, sit to/from stand, toilet Bed-Chair, Level of [place]: stand by assist Jzr-Dkcjh-Cva, Assistive Device: 2 wheeled walker (FWW), gait belt Sit-Stand, Level of [place]: stand by assist Stand-Sit, Level of [place]: stand by assist Arg-Kzygn-Wvw, Assistive Device: 2 wheeled walker (FWW) Toilet, Level of [place]: stand by assist Toilet, Assistive Device: grab [...] Value STG Status new at 03/30/2019654 STG [place] Level set up required at 03/30/2019654 STG Adaptive Equipment flour worker, shoe horn, long handled, sock-aid at 03/30/2019654 [...] for signs of infection. Pain assessments per [facility] policy. lan of Darby Patel RN [...] toilet, raised toilet seat, accessible to walker, [facility]. Functional Level Prior Transferring: independent [...] HOB elevated Supine to Sit, Level of [place]: stand by assist, verbal cues required Sit to Supine, Level of [place]: stand by assist, verbal cues required Impairments: ROM decreased Transfers Additional Documentation: sit to/from stand Sit-Stand, Level of [place]: moderate assist (50% patient effort), verbal cues require d Stand-Sit, Level of [place]: stand by assist, verbal cues required Zoh-Ukayi-Khj, Assistive Device: 2 wheeled walker (FWW) Maintain Weight Bearing Status: able to maintain weight bearing status Impairments: ROM decreased Gait Level of [place]: stand by assist Assistive Device: 2 wheeled [...] LTG Status new at 03/29/2019 1246 LTG [place] Level modified independent at 03/29/2019 1246 LTG Assistive Device none at 03/29/2019 1246 All Transfers Goal Most Recent Value LTG Status new at 03/29/2019 1246 LTG [place] Level stand by assist at 03/29/2019 1246 LTG Assistive Device 2 wheeled walker (FWW) at 03/29/2019 1246 Stair Goal Most Recent Value LTG Status new at 03/29/2019 1246 LTG [place] Level contact guard assist at 03/29/2019 1246 LTG Assistive Device 2 rails at 03/29/2019 1246 LTG Number of Stairs 5 at 03/29/2019 1246 p Note - Mark Montana MD - 03/29/2019 9:12 AM [facility] Service: Orthopedic Surgery Operative Note Date of Procedure: 03/29/2019 Surgeon: Mark Montana MD RECORD RETRIEVAL SPECIALIST: Gus Orozco PA-C; Please note that assistance was necessary for the purpose o f patient positioning, prepping, draping, retraction, reduction, implant placement, and woun d closure. 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 The patient completed [...] signed by: Mark Montana MD, 03/29/2019 7:19 [facility] Mark [facility] MD at [...] [address] | | | | | | [place] [address] | | | | | | [phone] | | | | | | | [...] | | | POC | performed at [facility];[address] | | LABORATORY | | | | [address];[place] | | | | | | [address] | | | | + + + + + + + + | Specimen | + + | | + + + + + + + | Performing | Address | City/State/Zipcode | Phone Number | | Organization | | | | + + + + + | [facility] | [address] | [place] [address] | [phone] | + + + + + POC Glucose (03/31/2019 7:23 AM PDT) + + + + + + | Component | Value | Ref Range | Performed | Pathologist | | | | | At | Signature | + + + + + + | Glucose, | 122 (H)Comment: Testing | 65 - 99 mg/dL | [facility] | | | POC | performed at [facility];[address] | | LABORATORY | | | | [address];[place] | | | | | | [address] | | | | + + + + + + + + | Specimen | + + | | + + + + + + + | Performing | Address | City/State/Zipcode | Phone Number | | Organization | | | | + + + + + | [facility] | [address] | [place] [address] | [phone] | + + + + + POC Glucose (03/30/2019 8:57 PM PDT) + + + + + + | Component | Value | Ref Range | Performed | Pathologist | | | | | At | Signature | + + + + + + | Glucose, | 98Comment: Testing | 65 - 99 mg/dL | [facility] | | | POC | performed at [facility];[address] | | LABORATORY | | | | [address];[place], [place] | | | | | | [address] | | | | + + + + + + + + | Specimen | + + | | + + + + + + + | Performing | Address | City/State/Zipcode | Phone Number | | Organization | | | | + + + + + | [facility] | [address] | [place] [address] | [phone] | + + + + + Hemoglobin [...] [facility] | | | | performed at [facility];[address] | | LABORATORY | | | | [address];[place] | | | | | | [address] | | | | + + + + + + + + | Specimen | + + | Blood | + + + + + + + | Performing | Address | City/State/Zipcode | Phone Number | | Organization | | | | + + + + + | [facility] | [address] | [place] [address] | [phone] | + + + + + POC Glucose (03/30/2019 3:23 AM PDT) + + + + + + | Component | Value | Ref Range | Performed | Pathologist | | | | | At | Signature | + + + + + + | Glucose, | 147 (H)Comment: Testing | 65 - 99 mg/dL | [facility] | | | POC | performed at [facility];[address] | | LABORATORY | | | | [address];[place], [place] | | | | | | [address] | | | | + + + + + + + + | Specimen | + + | | + + + + + + + | Performing | Address | City/State/Zipcode | Phone Number | | Organization | | | | + + + + + | [facility] | [address] | [place] [address] | [phone] | + + + + + POC [...] | | | POC | performed at [facility];[address] | | LABORATORY | | | | [address];[place], [place] | | | | | | [address] | | | | + + + + + + + + | Specimen | + + | | + + + + + + + | Performing | Address | City/State/Zipcode | Phone Number | | Organization | | | | + + + + + | [facility] | [address] | [place] [address] | [phone] | + + + + + XR [...] | | | POC | performed at [facility];[address] | | LABORATORY | | | | [address];[place], [place] | | | | | | [address] | | | | + + + + + + + + | Specimen | + + | | + + + + + + + | Performing | Address | City/State/Zipcode | Phone Number | | Organization | | | | + + + + + | [facility] | [address] | [place] [address] | [phone] | + + + + + Type [...] + + + | BB [facility]AND | [id number] | | [facility] | | | | | | LABORATORY | | + + + + + + | BB BAND | Testing performed at | | [facility] | | | | [address] | LABORATORY | | | | [address];[place] [address] | | | | + + + + + + + + | Specimen | + + | Blood | + + + + + + + | Performing | Address | City/State/Zipcode | Phone Number | | Organization | | | | + + + + + | [facility] | [address] | [place] [address] | [phone] | + + + + + POC Glucose (03/29/2019 6:42 AM PDT) + + + + + + | Component | Value | Ref Range | Performed | Pathologist | | | | | At | Signature | + + + + + + | Glucose, | 96Comment: Testing | 65 - 99 mg/dL | [facility] | | | POC | performed at [facility];[address] | | LABORATORY | | | | [address];[place] | | | | | | [address] | | | | + + + + + + + + | Specimen | + + | | + + + + + + + | Performing | Address | City/State/Zipcode | Phone Number | | Organization | | | | + + + + + | [facility] | [address] | [place] [address] | [phone] | + + + + + documented [...] HOURS PRN, Itching, Starting | | | [facility] 03/29/19 at 1417, Oral route | | [...]
--- OUTSIDE RECORDS SUMMARY | ~2020-02-22 | XMS | Encounter Summary ---
Demographics + + + | Address | [address] | | | [place] [address] | + + + | Home Phone [...] Team Providers + +------+ + | Care E Commerce Solution Architect Name | Role | Phone | [...] [place] | | | | | | [address] | | | | | | [phone] | | | +--------+ + + + [...] | | | | | [place] [address] | | | | | | [phone] | | | | | | | | +--------+---------+ + + + documented as of this encounter Visit Diagnoses Not on filedocumented in this encounter"
--- OUTSIDE RECORDS SUMMARY | ~2020-02-22 | XMS | Encounter Summary ---
Demographics + + + | Address | [address] | | | [place] [address] | + + + | Home Phone [...] + | Author | [facility] | | | and [place] | + + + | Organization | [facility] | | | [...] Team Providers + +------+ + | Care Shared Services Representative Name | Role | Phone | [...] | Other | | 2019 | | MAY [address] | MD Alaina [address] | | | | | [address] [place], [place] | [address] [place] | | | | | [address] | [place] [address] | | | | | [phone] | [phone] | | | | | | | [...] Miscellaneous Notes Telephone Encounter - Yvette Michelle, Public Health Physician - 08/25/2019 8:25 AM PDTAdvised patient that referral for MRI was refaxed yesterday and that per Dr. Montana, she should f ind someone that does interventional pain management and/or spine care. Once she finds jaleesao ne, let us know and we can fax referral. elephone Encounter - Fabiana Yeung - 08/24/2019 9:03 AM PDTPatient called us stating that she spoke with [facility] about her MRI order that was supposed to be sent to them. She was told that they haven't received anything from yet so it needs to be resent. Patient also stated she would like to know if could refer her to an Orthopedis t that is closer to where she lives than [facility]. The trip for appts is becoming a lot fo r her. Please call patient back at [phone] signed by Fabiana Yeung at 0 9:06 [...] [address] | | | | | | [place] [address] | | | | | | [phone] | | | | | | | | +--------+---------+ + + + documented as of this encounter Visit Diagnoses Not on filedocumented in this encounter"
--- OUTSIDE RECORDS SUMMARY | ~2020-02-22 | XMS | Encounter Summary ---
Demographics + + + | Address | [address] | | | [place] [address] | + + + | Home Phone [...] Providers + +------+ + | Care Maintenance Mechanic Telephone Name | Role | Phone | + [...] [address] | | | | | [address] [place], [place] | [place] | | | | | [address] | [place] [address] | | | | | [phone] | [phone] | | | | | | | [...] | | | | | [place] [address] | | | | | | [phone] | | | | | | | | +--------+---------+ + + + documented as of this encounter Visit Diagnoses Not on filedocumented in this encounter"
--- OUTSIDE RECORDS SUMMARY | ~2020-02-22 | XMS | Encounter Summary ---
Demographics + + + | Address | [address] | | | [place] [address] | + + + | Home Phone [...] Team Providers + +------+ + | Care Bias Machine Operator Name | Role | Phone [...] Services | Therapy | | [facility] | [facility] | | | Required | | Post-traumat | PA-C [address] | [address]YSICAL | | | | | ic | [address] | THERAPY [address] | | | | | osteoarthrit | [place] | [facility] | | | | | is of left | [place], [place] | [place], [place] | | | | | hip | [address] | [address] | | | | | | Phone: | Phone: | | | | | | [phone] | [phone] | | | | | | Fax: | Fax: | | | | | | [phone] | [phone] | +--------+ + + + + + [...] | | | [facility] | John, | [place], [place] | | | | | Procedures | [place] | [address] Phone: | | | | | NEW PATIENT | [address] | [phone] | | | | | | Phone: | Fax: | | | | | | [phone] | [phone] | | | | | | Fax: | | | | | | | [phone] | | + +--------+ + + + + Encounter Details +--------+---------+ + + + | Date | Type | Department | Care Team | Description | +--------+---------+ + + + | 03/21/ | Office | [facility] | Gus Orozco, | 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[place] [address] | PA-C [address]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[place], [place] | [place] [facility], | left hip (Primary | | | | [address] | [place] [address] | Dx) | | | | [phone] | [phone] | | | | | | | [...] Procedure: ERCP; Surgeon: Gregor Mccord MD; Location: [facility] MEDICAL PROCEDURE UNIT ERCP N/A 10/14/2016 Procedure: ERCP w/ stent pull; Surgeon: Gregor Mccord MD; Location: [facility] MEDICAL PROCEDU RE UNIT PARTIAL HYSTERECTOMY [...] Maternal Uncle Social History 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 Tobacco Use Smoking status: Never [...] MISC, Take by mouth., Disp: , Rfl: Aladdin-3 Fatty Acids (PRO NUTRIENTS OMEGA 3 PO), [...] 12 months?:yes Under the care of a curatorial specialist?: no Diabetes Optimization?:well controlled diet No results found for: LABGLYC History of MRSA/MSSA infection?:no Metal sensitivity or allergy?:no Intolerance to certain specific opiate?:no DVT/PE Risk Stratification Personal history of DVT/PE?:no Cancer treatment in the last 5 years?:no Hormone replacement therapy?:no Tolerate aspirin?:asa Current Anticoagulation?:asa Chemical prophylaxis plan:asa Anticipated Discharge Plan Discharge home to care of daughter (princess), [facility] Return for 2 and [...] Procedure: ERCP; Surgeon: Gregor Mccord MD; Location: [facility] MEDICAL PROCEDURE UNIT ERCP N/A 10/14/2016 Procedure: ERCP w/ stent pull; Surgeon: Gregor Mccord MD; Location: [facility] MEDICAL PROCEDU RE UNIT PARTIAL HYSTERECTOMY [...] Maternal Uncle Social History 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 Tobacco Use Smoking status: Never [...] MISC, Take by mouth., Disp: , Rfl: Aladdin-3 Fatty Acids (PRO NUTRIENTS OMEGA 3 PO), [...] 12 months?:yes Under the care of a curatorial specialist?: no Diabetes Optimization?:well controlled diet No results found for: LABGLYC History of MRSA/MSSA infection?:no Metal sensitivity or allergy?:no Intolerance to certain specific opiate?:no DVT/PE Risk Stratification Personal history of DVT/PE?:no Cancer treatment in the last 5 years?:no Hormone replacement therapy?:no Tolerate aspirin?:asa Current Anticoagulation?:asa Chemical prophylaxis plan:asa Anticipated Discharge Plan Discharge home to care of daughter (princess), Physical [facility] in [facility] Return for [...] [address] | | | | | | [place] [address] | | | | | | [phone] | | | | | | | [...]
--- OUTSIDE RECORDS SUMMARY | ~2020-02-22 | XMS | Encounter Summary ---
Demographics + + + | Address | [address] | | | [place] [address] | + + + | Home Phone [...] Team Providers + +------+ + | Care Jumpbasting Canvas Baster Name | Role | Phone | + [...] | | | | | | MD ERCP DX | | | | | [...] + + | 09/26/ | Hospital | [facility] | Gregor Mccord MD | Choledocholithiasis | | 2017 | Encounter | MED CTR MP INTRA OP | [address], [place] | (Primary Dx) | | | | [address] | [address] | | | | | [place] | [address] | | | | | [address] | | | | | | [phone] | | | +--------+ + + + [...] or severe belly or abdominal pain Fever [id number] (37.7C) or chills Upset stomach (nausea) and vomiting Black or tarry stools Date Last Reviewed: 11/25/201419997624-3933 The [employer]. [address] [place] [address]. All righ ts reserved. 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 Avoiding fatty foods such as Vietnamese [place], hamburgers, carrera, ham and pork products, wi [...] by Gregor Mccord MD at 1:21 PM [facility] Ana Moon Chaplain - 09/26/2016 12:12 PM PDTPro blem: Patient Care Overview (Adult) Goal: Care Team Goals & Evaluation PROBLEM-RELATED GOALS: STRATEGY TO ACHIEVE GOALS: RESTRAINT-RELATED GOALS: STRATEGIES TO ACHIEVE RESTRAINT GOALS: Spiritual Care Scarlet Murguia is a 80 y.o. female who is admitted for Common bile duct stone (K80.50). Spiritual Evaluation: Outdoor Emergency Care Technician received an electronic referral that the patient had requ ested prayer before surgery. Scarlet was waiting alone lying on the gurney. She cheerfully we lcomed a machinery mechanic visit. She said that her family gathered around her and offered prayer la night. She is a member of [employer] and asked that the mandaen be no tified of her hospitalization. She has a strong virginie and belief in prayer. Spiritual Intervention: Offered pastoral presence and encouragement. Shared prayer. Left a message for the corporate staff accountant at [employer] Spiritual Outcomes: Scarlet expressed her appreciation [...] [address] | | | | | | [place] [address] | | | | | | [phone] | | | | | | | [...] | | | | VONDA SHEPPARD MD ([id number]) | | | | | | on [...] 09/26/2016 | [employer]ATION | | 12:24 PMMRN: [id number] #: [id number] of : | | | 1935dmit Type: AmbulatoryAge: 80Room: [facility] 01Gender: FemaleNote | | | Status: FinalizedAttending MD: Gregor Mccord , MDProcedure: | | | ERCPIndications: Filling defect on intraoperative | | | cholangiogramProviders: Gregor Mccord MD, Jalyn Darden | | | ROBI Ring, Pablo Rothman, [facility], | | | Laurie Hammond, Community Engagement Representative, Paty Beverly | | | Michelle, Community Engagement Representative, Enrique Llanos MD (Anesthesia | | | [...] | | | the anesthesiologist and the binder technician in the endoscopy suite. | | [...] the procedure | | | well.Findings: A cement loader film of the abdomen was obtained. | [...] 1:06:30 PM [facility] | | | [place], [address] [place] [address] | | | - Continue present medications. [...] |Scope Out: 1:06:30 PM | | | [facility], [address] [place] [address] | | | [address] | | + + -+ + +---------+ [...] | | | | VONDA SHEPPARD MD ([id number]) | | | | | | on [...]
--- OUTSIDE RECORDS SUMMARY | ~2020-02-22 | XMS | Encounter Summary ---
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 [address] | [address] | | | | | Systolic | TABITHAS | TY BLOOM | | | | | murmur | [address]J [address] | [place], [place] | | | | | Syncope and | [place], [place] | [address] | | | | | collapse | [address] | Phone: | | | | | Dyspnea on | Phone: | [phone] | | | | | exertion | [phone] | Fax: | | | | | Procedures | Fax: | [phone] | | | | | ECHO | [phone] | | | | | | Complete [...] + + | 10/12/ | Office | [facility] | Jeniffer Haines | Essential | | 2020 | Visit | CARDIOLOGY [place] | [address] | hypertension | | | | [address] | [address] | (Primary Dx); Mixed | | | | [address] | [place] [address] | hyperlipidemia; | | | | [place], [place] | [phone] | Systolic murmur; | | | | [address] | | Syncope and | | | | [phone] | | collapse; | | | | [...] you an Echo to be done at [facility] in the next 2-3 weeks, and [...] stroke or TIA. She also denies any [facility] visits or hospitalizations since she saw [...] mg by mouth Twice daily as needed. QZ-Pmtgcrdptm-Cjdmmveizypikm (FOLBIC PO) Take by mouth. ferrous sulfate [...] ( [facility]) MISC Take by mouth. [place]-3 Fatty Acids (OMEGA-3 2100 PO) Take by mouth. omeprazole (PRILOSEC) 20 mg capsule Take 20 mg by mouth every morning (before breakfast ). ondansetron (ZOFRAN ODT) 4 mg disintegrating tablet Take 4 mg by mouth every 8 hours as needed. POTASSIUM CITRATE PO Take 99 mg by mouth Daily. Psyllium (METAMUCIL PO) Take by mouth Daily. [facility] venlafaxine (EFFEXOR XR) 75 mg 24 [...] ST-T wa ve abnormalities. Rate 65 bpm, FL 172 ms, QRS 84 ms, QTC 428 [...] for continuity of care purp bari CAGLE [facility] Cardiology documented in t his encounter Plan of Treatment +--------+---------+ + + + | Date | Type | Specialty | Care Team | Description | +--------+---------+ + + + | 05/17/ | Office | Cardiology | Jeniffer Haines | | | 2020 | Visit | | [address] | | | | | | [address] | | | | | | [place] [address] | | | | | | [phone] | | | | | | | [...]
--- OUTSIDE RECORDS SUMMARY | ~2020-02-22 | XMS | Encounter Summary ---
Demographics + + + | Address | [address] | | | [place] [address] | + + + | Home Phone [...] Team Providers + +------+ + | Care Laser Engineer Name | Role | Phone | [...] | | | [place], [place] | [place] [address] | | | | | [address] | [phone] | | | | | [phone] | | | +--------+ + + + [...] [address] | | | | | | [place] [address] | | | | | | [phone] | | | | | | | | +--------+---------+ + + + documented as of this encounter Visit Diagnoses Not on filedocumented in this encounter"
--- OUTSIDE RECORDS SUMMARY | ~2020-02-22 | XMS | Encounter Summary ---
Demographics + + + | Address | [address] | | | [place] [address] | + + + | Home Phone | | + + + | Preferred Language | Unknown | + + + | Marital Status | | + + + | Buddhist Affiliation | 1077 | + + + | Race | White | + + + | Ethnic Group | Not or | + + + Author + + + | Author | [facility] | | | and [place] | + + + | Organization | [facility] | | [...] Providers + +------+ + | Care Car Inspector Name | Role | Phone | + +------+ + | Susan Leos | PCP | | | PA-C | | | + +------+ + Encounter Details +--------+ + + + + | Date | Type | Department | Care Team | Description | +--------+ + + + + | 12/21/ | Hospital | [facility] | Motaghi, Sam, DO | | | 2020 | Encounter | [facility] | [address] | | | | | XRAY [address] | [place] [address] | | | | | DR [address]ASS[address] AMY, | [phone] | | | | | [place] [address] | | | | | | [phone] | | | +--------+ + + + [...] | | 0 | | | | HD-Swnktauocp-Jyxqvz | mouth Daily. | | | | [...] [address] | | | | | | [place] [address] | | | | | | [phone] | | | | | | | [...]
--- OUTSIDE RECORDS SUMMARY | ~2020-02-22 | XMS | Encounter Summary ---
Demographics + + + | Address | [address] | | | [place] [address] | + + + | Home Phone | | + + + | Preferred Language | Unknown | + + + | Marital Status | | + + + | Restoration Affiliation | 1077 | + + + | Race | White | + + + | Ethnic Group | Not or | + + + Author + + + | Author | [facility] | | | and [place] | + + + | Organization | [facility] | | [...] Providers + +------+ + | Care Staff Accountant Name | Role | Phone | + [...] | | | | | | | [place] ERCP DX | | | | | | | COLLECTION | | | | | | | SPECIMEN | | | | | | | BRUSHING/WAS | | | | | | | [place] | | | | | | | ANESTH,UGI | | | | | | | ENDOSCOPY | | | | | | | ERCP | | | +--------+--------+ + + + + Encounter Details +--------+ + + + + | Date | Type | Department | Care Team | Description | +--------+ + + + + | 10/14/ | Hospital | [facility] | Gregor Mccord MD | Choledocholithiasis | | 2017 | Encounter | MED CTR MP INTRA OP | [address], [place] | (Primary Dx) | | | | [address] | [address] [place], [place] | | | | | [place], [place] | [address] | | | | | [address] | | | | | | [phone] | | | +--------+ + + + [...] the test. This includes: All prescription medicines Rfyo-cjt-hdmqthk medicines that don't need a prescription Any [...] torn bowel. Date Last Reviewed: 2014 [employer]. [address] [place] [address]. All righ ts reserved. This information is [...] be awakened Date Last Reviewed: 04/01/2016 [employer]. [address] [place] [address]. All righ ts reserved. This information is [...] + + + +---------+ + + | [place]-3 Fatty | Take 1 tablet by | [...] 3 Years of Education: 12 Occupational History [employer] RETIRED Social History Main Topics Smoking status: [...] NS Patient: Scarlet Murguia : 1935 Acct: [id number] Exam Date: Friday, October 14, 2016 Doctor: [...] da y. Avoiding fatty foods such as [place], hamburgers, carrera, ham and pork products, wi [...] | | | | | [place] [address] | | | | | | [phone] | | | | | | | [...] 10/14/2016 12:25 | [employer] | | PMMRN: [id number] #: [id number] of : 1935dm | | | Type: AmbulatoryAge: 80Room: [facility] 01Gender: FemaleNote Status: | | | FinalizedAttending MD: Gregor Mccord , MDProcedure: | | | ERCPIndications: Biliary stent removalProviders: | | | Gregor Mccord MD, Jalyn Ring RN, Parul | | | ROIB Tello, Harinder Mcgowan MD (Anesthesia | | [...] the anesthesiologist and | | | the film laboratory technician in the endoscopy suite. Mental Status [...] was visible on the | | | web designer film. The esophagus was successfully intubated under [...] Scope In: 12:40:12 PMScope Out: 12:55:03 PM [place] | | | [facility], [address] [place] [address] | | | [phone] | | | - Continue present medications. [...] |Scope Out: 12:55:03 PM | | | [facility], [address] [place] [address] | | | [address] | | + + -+ + +---------+ [...]
--- OUTSIDE RECORDS SUMMARY | ~2020-02-22 | XMS | Encounter Summary ---
Demographics + + + | Address | [address] | | | [place] [address] | + + + | Home Phone [...] Team Providers + +------+ + | Care Naval Marine Engineer Name | Role | Phone | [...] 2017 | | GASTROENTEROLOGY | [address], [place] | stent pull) | | | | [address] [place] | [address] [place] | | | | | [address] [place] | [address] | | | | | [address] | | | | | | [phone] | | | +--------+ + + + [...] [address] | | | | | | [place] [address] | | | | | | [phone] | | | | | | | [...]
--- OUTSIDE RECORDS SUMMARY | ~2020-02-22 | XMS | Encounter Summary ---
Demographics + + + | Address | [address] | | | [place] [address] | + + + | Home Phone [...] Team Providers + +------+ + | Care Garment Turner Name | Role | Phone | + +------+ + | Susan Leos | PCP | | | PA-C | | | + +------+ + Encounter Details +--------+ + + + + | Date | Type | Department | Care Team | Description | +--------+ + + + + | 02/28/ | [facility] | [facility] | Malcom Mojica, | Peripheral | | 2016 | Encounter | MED CTR LABORATORY | [address] | polyneuropathy | | | | [address] | [address], | (Primary Dx) | | | | [place], [place] | [place] [address] | | | | | [address] | [phone] | | | | | [phone] | | | +--------+ + + + [...] | | | | 0 | | ([facility]) | | | | | | | MISC | | | | | | + + + +---------+--------+ + | [place]-3 Fatty | Take 1 tablet by | [...] [address] | | | | | | [place] [address] | | | | | | [phone] | | | | | | | [...] [place] | | | | | | [address] | | | | + + + [...] [address] | [place] [address] | [phone] | + + + + + Vitamin [...] Vitamin | | | | | | [id number].This test | | | | | | [...] [place] | | | | | | [address] | | | | + + + + + + + + | Specimen | + + | Blood specimen | | (specimen) | + + + + + + + | Performing | Address | City/State/Zipcode | Phone Number | | Organization | | | | + + + + + | [facility] | [address] | [place] [address] | [phone] | + + + + + documented in this encounter Visit Diagnoses + + | Diagnosis | + + | Peripheral polyneuropathy - Primary Unspecified hereditary and idiopathic peripheral | | neuropathy | + + documented in this encounter"
--- OUTSIDE RECORDS SUMMARY | ~2020-02-22 | XMS | Encounter Summary ---
Demographics + + + | Address | [address] | | | [place] [address] | + + + | Home Phone [...] Team Providers + +------+ + | Care Stained Glass Painter Name | Role | Phone | [...] | | Physical | Diagnoses | | [place], | | | | Medicine and | Disturbance | Ray, | MD Malcom | | | | Rehabilitatio | of skin | [place], | [address] | | | | n | sensation | PA-C [address] | | | | | Procedures | [address], | [place] | | | | | IN MOTOR | [address] | [address] Phone: | | | | | &/SENS 1-2 | [place] | [phone] | | | | | NRV CNDJ | [address] | Fax: | | | | | PRECONF | Phone: | [phone] | | | | | ELTRODE LIMB | [phone] | | | | | | IN NEEDLE | Fax: | | | | | | EMG EA | [phone] | | | | | | EXTREMITY | | | | | | | W/PARASPINL | | | | | | | AREA LIMITED | | | | | | | IN EMG, | | | | | | | NEEDLE, TWO | | | | | | | LIMBS IN | | | | | | | MOTOR &/SENS | | | | | | | 3-4 NRV | | | | | | | CNDJ PRECONF | | | | | | | ELTRODE | | | | | | | LIMB IN | | | | | | | MOTOR &/SENS | | | | | | | 5-6 NRV | | | | | | | CNDJ PRECONF | | | | | | | ELTRODE | | | | | | | LIMB IN | | | | | | | NEEDLE EMG | | | | | | | EA EXTREMTY | | | | | | | W/PARASPINL | | | | | | | AREA | | | | | | | COMPLETE IN | | | | | | | [...] [address] | [address] [place], | (Primary Dx); Hyper | | | | [place] | [place] [address] | reflexia | | | | [address] | [phone] | | | | | [phone] | | | +--------+ + + + [...] P olyneuropathy; Hyper reflexia [facility] Musculoskeletal, Sports and Spine, Physiatry [address] [address] Test Date: 02/25/2016 Patient Name: Scarlet Murguia : 1935 Physician: Tomás Mojica MD MR #: [id number] Sex: Female Referring Physician: Aurora Bell PA-C [...] some sort of testing done by a attorney law clerk and she was diagnosed with a per [...] hesitate to call. Malcom Mojica MD Diplomate, [place] Board of Physical Medicine and Rehabilitation. documented [...] [address] | | | | | | [place] [address] | | | | | | [phone] | | | | | | | [...] Mojica MD 02/26/2016 14:[address] [facility] | | | Physician Group Musculoskeletal, Sports and Spine, Physiatry [place] | | | [facility] [address] [place] [address] Ph: | | | Test Date: 02/25/2016 | | | Patient Name: Scarlet Murguia : 1935 Physician: Tomás Mojica, | | | MR #: [id number] Sex: Female Referring Physician: Aurora | | [...] | | | testing done by a attorney law clerk and she was diagnosed with a | [...] Amp Site1 Site2 Delta-P (ms) Dist (cm) Tunrer (m/s) Norm Turner | | | (m/s) [...] Malcom Mojica MD Diplomate, | | | [place] Board of Physical Medicine and Rehabilitation. | [...] [address] | [place] | [phone] | | [facility] | | [address] | | | - LABORATORY | | [...] [place] | | | | | | [address] | | | | + + + [...] [facility] | [address] | [place] [address] | [phone] | + + + + + Protein [...] F[facility] | | Vincent Sanchez MD02-27-16 | [facility] | |02-27-16 | [facility] | | | - LABORATORY | + + + + + + + + | Performing | Address | City/State/Zipcode | Phone Number | | Organization | | | | + + + + + | [facility] | [address] | [place], [place] | [phone] | | [facility] | | [address] | | | - LABORATORY | | [...] [place] | | | | | | [address] [...] [address] | [place] [address] | [phone] | + + + + + Methylmalonic [...] [place] | | | | | | [address] | | | | + + + [...] [address] | [place] [address] | [phone] | + + + + + Vitamin [...] [facility]. 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
--- OUTSIDE RECORDS SUMMARY | ~2020-02-22 | XMS | Encounter Summary ---
Demographics + + + | Address | [address] | | | [place] [address] | + + + | Home Phone [...] | Author | [facility] | | | and [place] | + + + | Organization | [facility] | | | [...] Team Providers + +------+ + | Care Cushion Maker Hand Name | Role | Phone | [...] | Gregor Brock MD | [address] | | | | | abnormality | [address] | [place], | | | | | Procedures | [place], [place] | [place] | | | | | MRI MRCP | [address] [place] | [address] | | | | | Liver wo | [place], [place] | Phone: | | | | | [place] | [address] | [phone] | | | | | MRI, | Phone: | Fax: | | | | | ABDOMEN | [phone] | [phone] | | | | | (MRI) | Fax: | | | | | | | [phone] | | +--------+--------+ + + + + [...] 2017 | | GASTROENTEROLOGY | [address], [place] | | | | | [address] [place] | [address] [place], [place] | | | | | [address] [place], [place] | [address] | | | | | [address] | | | | | | [phone] | | | +--------+ + + + [...] 10/15/2016 1:15 PM PDTCalled patient in [facility] up after ERCP stent pull yesterday. She [...] November 07. Edna decker is agreeable to [facility] for her MRCP documented [...] [address] | | | | | | [place] [address] | | | | | | [phone] | | | | | | | [...] bile duct. COMPARISON: Lumbar spine dated | [facility] | | 02/11/2016. PROTOCOL: Coronal T2 professional healthcare representative, axial T2 professional healthcare representative, coronal 3D | [facility] | | respiratory triggered, coronal [...] spine dated | | 02/11/2016.PROTOCOL: Coronal T2 professional healthcare representative, axial T2 professional healthcare representative, coronal 3D respiratory | | triggered,coronal T2 [...] A few more small subcentimeter | | C0ngimugqidaq cyst are seen within the left kidney [...] + | [facility] | [address] | [place] | [phone] | | [facility] | | [address] | | | - IMAGING | | | | + + + + + documented in this encounter Visit Diagnoses + + | Diagnosis | + + | Bile duct abnormality - Primary Unspecified disorder of biliary tract | + + documented in this encounter"
--- OUTSIDE RECORDS SUMMARY | ~2020-02-22 | XMS | Encounter Summary ---
Demographics + + + | Address | [address] | | | [place] [address] | + + + | Home Phone [...] Team Providers + +------+ + | Care Reprographics Associate Name | Role | Phone | + +------+ + | Susan Leos | PCP | | | PA-C | | | + +------+ + Encounter Details +--------+ + + + + | Date | Type | Department | Care Team | Description | +--------+ + + + + | 12/02/ | Hospital | [facility] | [place] | Aftercare following | | 2019 | Encounter | AMY XRAY [address] | MD [address] | left hip joint | | | | [address] | [address] | replacement surgery | | | | [place], [place] | [place] [address] | | | | | [address] | [phone] | | | | | [phone] | | | +--------+ + + + [...] | | | | 0 | | ([facility]) | | | | | | | MISC | | | | | | + + + +---------+ + + | [place]-3 Fatty | Take 1 tablet by | [...] [address] | | | | | | [place] [address] | | | | | | [phone] | | | | | | | [...]
--- OUTSIDE RECORDS SUMMARY | ~2020-02-22 | XMS | Encounter Summary ---
Demographics + + + | Address | [address] | | | [place] [address] | + + + | Home Phone [...] Providers + +------+ + | Care Certified Professional Controller Name | Role | Phone | [...] Appointment | | 2018 | | AMY [facility] [address] | Dispatch Supervisor | | | | | [place] | | | | | | [address] | | | | | | [phone] | | | +--------+ + + + [...] Miscellaneous Notes Telephone Encounter - Yvette Michelle, Dispatch Supervisor - 03/16/2019 8:[address] [facility] for p atient to call back. [...] [address] | | | | | | [place] [address] | | | | | | [phone] | | | | | | | | +--------+---------+ + + + documented as of this encounter Visit Diagnoses Not on filedocumented in this encounter"
--- OUTSIDE RECORDS SUMMARY | ~2020-02-22 | XMS | Encounter Summary ---
Demographics + + + | Address | [address] | | | [place] [address] | + + + | Home Phone [...] Providers + +------+ + | Care Director Rehabilitation Program Name | Role | Phone | + [...] | | | | region, with | [place], | [address] | | | | | neurogenic | [place] [address] | [place], | | | | | claudication | Phone: | [place] | | | | | | [phone] | [address] | | | | | | Fax: | Phone: | | | | | | [phone] | [phone] | | | | | | | Fax: | | | | | | | [phone] | + + + + + + [...] + + | // | Telephone | [facility] | [place] | Referral | | 2020 | | [address] | MD Alaina [address] | | | | | [address] [place], [place] | [address] | | | | | [address] | [place] [address] | | | | | [phone] | [phone] | | | | | | | [...] calling to request a referral to a windows server specialist. She is okay with coming to [facility]. documented in this encounter Plan of Treatment +--------+---------+ + + + | Date | Type | Specialty | Care Team | Description | +--------+---------+ + + + | 05/17/ | Office | Cardiology | Jeniffer Haines | | | 2019 | Visit | | [address] | | | | | | [address] | | | | | | [place] [address] | | | | | | [phone] | | | | | | | [...]
--- OUTSIDE RECORDS SUMMARY | ~2020-02-22 | XMS | Encounter Summary ---
Demographics + + + | Address | [address] | | | [place] [address] | + + + | Home Phone [...] Team Providers + +------+ + | Care Athletic Coordinator Name | Role | Phone | [...] + + | 09/26/ | Hospital | [facility] | Gregor Mccord MD | | | 2017 | Encounter | MED CTR XRAY [address] | [address] | | | | | [place] | [address] [place] [address] | | | | | [place] [address] | [address] | | | | | [phone] | | | +--------+ + + + [...] | | | | 0 | | ([facility]) | | | | | | | MISC | | | | | | + + + +---------+ + + | [place]-3 Fatty | Take 1 tablet by | [...] [address] | | | | | | [place] [address] | | | | | | [phone] | | | | | | | [...]
--- OUTSIDE RECORDS SUMMARY | ~2020-02-22 | XMS | Encounter Summary ---
Demographics + + + | Address | [address] | | | [place] [address] | + + + | Home Phone [...] Providers + +------+ + | Care Railway Head Tender Name | Role | Phone | [...] | [facility] | Mark Montana | Posterior Total Hip | | 2019 | | [facility] | MD Alaina [address] | Arthroplasty | | | | OPERATING RO[address] | [address] | | | | | [address] | [place] [address] | | | | | [place], [place] | [phone] | | | | | [address] | | | | | | [phone] | | | +--------+---------+ + + + [...] disease), lumbar 02/04/2016 Diabetes type 2, controlled ([facility]) Full dentures upper & lower GERD (gastroesophageal reflux disease) HTN (hypertension) Hyperlipidemia Hypothyroidism Macular degeneration Other intervertebral disc displacement, lumbar region Peripheral neuropathy Pneumonia 2004 Skin cancer Spondylolisthesis at L4-L5 level 02/04/2016 Stress incontinence in female Type 2 diabetes mellitus ([facility]) Past Surgical History: Procedure Laterality Date CHOLECYSTECTOMY COLONOSCOPY 2003; 2009; 2011 polyp's removed CYSTOCELE REPAIR 1971 ERCP N/A 09/26/2016 Procedure: ERCP; Surgeon: Gregor Mccord MD; Location: [facility] MEDICAL PROCEDURE UNIT ERCP N/A 10/14/2016 Procedure: ERCP w/ stent pull; Surgeon: Gregor Mccord MD; Location: [facility] MEDICAL PROCEDU RE UNIT HARDWARE REMOVAL Left 03/29/2019 Procedure: REMOVE HARDWARE LOWER EXTREMITY-HIP; Surgeon: Mark Montana MD; Location : [facility] MAIN OR PARTIAL HYSTERECTOMY 1972 RECTOCELE REPAIR 1991 TAILBONE 1973 broken, partial removal TONSILLECTOMY 1938 TOTAL HIP ARTHROPLASTY Left 03/29/2019 Procedure: Posterior Total Hip Arthroplasty; Surgeon: Mark Montana MD; Location: [facility] MAIN OR Allergies Allergen Reactions Erythromycin [...] Code Follow up: Gus Orozco PA-C [address] [place] [facility] [place] [address] In 2 weeks Discharge Medications Changed Medications [...] + + + +---------+ + + | Emigrant- Fatty | Take 1 tablet by | [...] 4 Handrail Location: both sides Level of [place]: stand by assist Assistive Device: 2 rails [...] throughout activities and motivated each other thro [facility] discussion of goals/plans after discharge. Educated pt [...] LTG Status new at 03/29/2019 1246 LTG [place] Level modified independent at 03/29/2019 1246 LTG Assistive Device none at 03/29/2019 1246 All Transfers Goal Most Recent Value LTG Status new at 03/29/2019 1246 LTG [place] Level stand by assist at 03/29/2019 1246 LTG Assistive Device 2 wheeled walker (FWW) at 03/29/2019 1246 Stair Goal Most Recent Value LTG Status new at 03/29/2019 1246 LTG [place] Level contact guard assist at 03/29/2019 1246 LTG Assistive Device 2 rails at 03/29/2019 1246 LTG Number of Stairs 5 at 03/29/2019 1246 lan of Care - Arias Villar, WOOL WASHING MACHINE OPERATOR - 03/31/2019 8:57 AM PDT Physical [...] oriented x 4 Transfers Sit-Stand, Level of [place]: stand by assist Stand-Sit, Level of [place]: stand by assist [id number], Assistive Device: 2 wheeled walker (FWW) Safety Issues: stands too far from assistive device Impairments: ROM decreased, strength decreased Gait Level of [place]: stand by assist Assistive Device: 2 wheeled [...] LTG Status new at 03/29/2019 1246 LTG [place] Level modified independent at 03/29/2019 1246 LTG Assistive Device none at 03/29/2019 1246 All Transfers Goal Most Recent Value LTG Status new at 03/29/2019 1246 LTG [place] Level stand by assist at 03/29/2019 1246 LTG Assistive Device 2 wheeled walker (FWW) at 03/29/2019 1246 Stair Goal Most Recent Value LTG Status new at 03/29/2019 1246 LTG [place] Level contact guard assist at 03/29/2019 1246 [...] Recommendations: 2 wheeled walker (FWW), sock aide, block mechanic, long handled sponge Barriers to community-based discharge [...] washed hands at sink Grooming, Level of [place]: independent Assistive Device: none Grooming Assess/Train, Position: supported standing Grooming Impairments: impaired balance Bathing Upper body dressing donned shirt UB Dressing, Level of [place]: set up required Assistive Device: none UB Dressing Assess/Train, Position: sitting UB Dressing Impairments: impaired balance Lower body dressing donned pants LB Dressing, Level of [place]: minimal assist (75% patient effort), verbal cues requir ed Assistive Device: block mechanic LB Dressing Assess/Train, Position: sitting LB Dressing Impairments: ROM decreased, strength decreased, impaired balance Toileting pt urinated in toilet Toileting, Level of [place]: stand by assist Assistive Device: grab bar Toileting Assess/Train, Position: sitting Toileting Impairments: strength decreased, impaired balance IADLs FUNCTIONAL MOBILITY Bed Mobility Transfers Sit-Stand, Level of [place]: contact guard assist, verbal cues required Stand-Sit, Level of [place]: contact guard assist, verbal cues required [id number]-[id number], Assistive Device: 2 wheeled walker (FWW) Toilet, Level of [place]: contact guard assist, verbal cues required Toilet, Assistive Device: grab bars, 2 wheeled walker (FWW) Walk-in shower, Level of [place]: contact guard assist, verbal cues required Walk-in [...] STG Status new at 03/30/2019 06 STG [place] Level set up required at 03/30/2019 06 STG Adaptive Equipment block mechanic, shoe horn, long handled, sock-aid at 03/30/2019 [...] plan of care and goals. lan of [facility] Stephanie Fung RN - 03/31/2019 6:30 AM [...] oriented x 4 Transfers Sit-Stand, Level of [place]: minimal assist (75% patient effort) Stand-Sit, Level of [place]: minimal assist (75% patient effort) [id number]-Hsq, Assistive Device: 2 wheeled walker (FWW) Safety Issues: stands too far from assistive device Impairments: strength decreased Gait Level of [place]: stand by assist, verbal cues required Assistive [...] LTG Status new at 03/29/2019 1246 LTG [place] Level modified independent at 03/29/2019 1246 LTG Assistive Device none at 03/29/2019 1246 All Transfers Goal Most Recent Value LTG Status new at 03/29/2019 1246 LTG [place] Level stand by assist at 03/29/2019 1246 LTG Assistive Device 2 wheeled walker (FWW) at 03/29/2019 1246 Stair Goal Most Recent Value LTG Status new at 03/29/2019 1246 LTG [place] Level contact guard assist at 03/29/2019 1246 LTG Assistive Device 2 rails at 03/29/2019 1246 LTG Number of Stairs 5 at 03/29/2019 1246 lan of Darby Duarte RN - 03/30/2019 7:10 AM PDT Problem: Postoperative Urinary Retention (Hip Arthroplasty) Goal: Effective Urinary Elimination Intervention: Monitor and Manage Urinary Retention Note: Trujillo placed on car shifter for urinary retention. Will continue to assess [...] toilet, raised toilet seat, accessible to walker [facility]. Functional Level Prior Transferring: independent Ambulation: independent Toileting: independent Bathing: independent Dressing: independent Eating: independent Equipment Currently Used at Home: 4 wheeled walker (4WW), cane, straight, single point, gra b bars, long handled sponge, raised toilet, block mechanic Prior Functional Level Comment: Independent with all [...] cares and washing face. Grooming, Level of [place]: set up required Assistive Device: none Grooming Assess/Train, Position: standing Grooming Impairments: pain(fatigue) Upper Body Dressing Assessment/Training UB Dressing Assess/Train, Comment: Pt able to don bra and shirt while seated EOB. UB Dressing, Level of [place]: set up required Assistive Device: none UB Dressing Assess/Train, Position: sitting UB Dressing Impairments: pain Lower Body Dressing Assessment/Training LB Dressing Assess/Train, Comment: Pt able to don pants and socks while seated EOB. LB Dressing, Level of [place]: minimal assist (75% patient effort) Assistive Device: block mechanic, sock-aid LB Dressing Assess/Train, Position: sitting LB Dressing Impairments: pain, strength decreased Toileting Assessment/Training Toileting Assess/Train, Comment: Pt able to sit down for bowel movement. Toileting, Level of [place]: stand by assist Assistive Device: grab bar Toileting Assess/Train, Position: sitting Toileting Impairments: pain Bed Mobility Additional Documentation: scooting/bridging, supine to/from sit, sidelying to/from sit Assistive Device: bed rails, HOB elevated Scoot/Bridge, Level of [place]: stand by assist Supine to Sit, Level of [place]: moderate assist (50% patient effort) Sidelying to Sit, Level of [place]: stand by assist Safety Issues: decreased use of arms for pushing/pulling, impaired trunk control for bed mo bility Impairments: strength decreased, postural control impaired, pain Transfers Additional Documentation: bed to/from chair, sit to/from stand, toilet Bed-Chair, Level of [place]: stand by assist Hgk-[id number]-Jpb, Assistive Device: 2 wheeled walker (FWW), gait belt Sit-Stand, Level of [place]: stand by assist Stand-Sit, Level of [place]: stand by assist Ppk-[id number]-Dji, Assistive Device: 2 wheeled walker (FWW) Toilet, Level of [place]: stand by assist Toilet, Assistive Device: grab [...] Value STG Status new at 03/30/2019654 STG [place] Level set up required at 03/30/2019654 STG Adaptive Equipment block mechanic, shoe horn, long handled, sock-aid at 03/30/2019654 [...] for signs of infection. Pain assessments per [facility] policy. lan of Darby Patel [...] toilet, raised toilet seat, accessible to walker, [facility]. Functional Level Prior Transferring: independent [...] HOB elevated Supine to Sit, Level of [place]: stand by assist, verbal cues required Sit to Supine, Level of [place]: stand by assist, verbal cues required Impairments: ROM decreased Transfers Additional Documentation: sit to/from stand Sit-Stand, Level of [place]: moderate assist (50% patient effort), verbal cues require d Stand-Sit, Level of [place]: stand by assist, verbal cues required Gbi-[id number]-Skd, Assistive Device: 2 wheeled walker (FWW) Maintain Weight Bearing Status: able to maintain weight bearing status Impairments: ROM decreased Gait Level of [place]: stand by assist Assistive Device: 2 wheeled [...] LTG Status new at 03/29/2019 1246 LTG [place] Level modified independent at 03/29/2019 1246 LTG Assistive Device none at 03/29/2019 1246 All Transfers Goal Most Recent Value LTG Status new at 03/29/2019 1246 LTG [place] Level stand by assist at 03/29/2019 1246 LTG Assistive Device 2 wheeled walker (FWW) at 03/29/2019 1246 Stair Goal Most Recent Value LTG Status new at 03/29/2019 1246 LTG [place] Level contact guard assist at 03/29/2019 1246 LTG Assistive Device 2 rails at 03/29/2019 1246 LTG Number of Stairs 5 at 03/29/2019 1246 p Note - Mark Montana MD - 03/29/2019 9:12 AM [facility] Service: Orthopedic Surgery Operative Note Date of Procedure: 03/29/2019 Surgeon: Mark Montana MD REGIONAL ACCOUNT DIRECTOR: Gus Orozco PA-C; Please note that assistance was necessary for the purpose o f patient positioning, prepping, draping, retraction, reduction, implant placement, and woun d closure. 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 The patient completed [...] & PHYS ICAL UPDATE Pt. Name/Age/: November Blade 83 y.o. 1935 Date of admission: 03/29/2019 [...] signed by: Mark Montana MD, 03/29/2019 7:19 [facility] MD at [...] [address] | | | | | | [place] [address] | | | | | | [phone] | | | | | | | [...] | | | POC | performed at [facility];[address] | | LABORATORY | | | | [address];[place], [place] | | | | | | [address] | | | | + + + + + + + + | Specimen | + + | | + + + + + + + | Performing | Address | City/State/Zipcode | Phone Number | | Organization | | | | + + + + + | [facility] | [address] | [place] [address] | [phone] | + + + + + POC Glucose (03/31/2019 7:23 AM PDT) + + + + + + | Component | Value | Ref Range | Performed | Pathologist | | | | | At | Signature | + + + + + + | Glucose, | 122 (H)Comment: Testing | 65 - 99 mg/dL | [facility] | | | POC | performed at [facility];[address] | | LABORATORY | | | | [address];[place] | | | | | | [address] | | | | + + + + + + + + | Specimen | + + | | + + + + + + + | Performing | Address | City/State/Zipcode | Phone Number | | Organization | | | | + + + + + | [facility] | [address] | [place] [address] | [phone] | + + + + + POC Glucose (03/30/2019 8:57 PM PDT) + + + + + + | Component | Value | Ref Range | Performed | Pathologist | | | | | At | Signature | + + + + + + | Glucose, | 98Comment: Testing | 65 - 99 mg/dL | [facility] | | | POC | performed at [facility];[address] | | LABORATORY | | | | [address];[place], [place] | | | | | | [address] | | | | + + + + + + + + | Specimen | + + | | + + + + + + + | Performing | Address | City/State/Zipcode | Phone Number | | Organization | | | | + + + + + | [facility] | [address] | [place] [address] | [phone] | + + + + + Hemoglobin [...] [facility] | | | | performed at [facility];[address] | | LABORATORY | | | | [address];[place] | | | | | | [address] | | | | + + + + + + + + | Specimen | + + | Blood | + + + + + + + | Performing | Address | City/State/Zipcode | Phone Number | | Organization | | | | + + + + + | [facility] | [address] | [place] [address] | [phone] | + + + + + POC Glucose (03/30/2019 3:23 AM PDT) + + + + + + | Component | Value | Ref Range | Performed | Pathologist | | | | | At | Signature | + + + + + + | Glucose, | 147 (H)Comment: Testing | 65 - 99 mg/dL | [facility] | | | POC | performed at [facility];[address] | | LABORATORY | | | | [address];[place], [place] | | | | | | [address] | | | | + + + + + + + + | Specimen | + + | | + + + + + + + | Performing | Address | City/State/Zipcode | Phone Number | | Organization | | | | + + + + + | [facility] | [address] | [place] [address] | [phone] | + + + + + POC [...] | | | POC | performed at [facility];[address] | | LABORATORY | | | | [address];[place], [place] | | | | | | [address] | | | | + + + + + + + + | Specimen | + + | | + + + + + + + | Performing | Address | City/State/Zipcode | Phone Number | | Organization | | | | + + + + + | [facility] | [address] | [place] [address] | [phone] | + + + + + XR [...] | | | POC | performed at [facility];[address] | | LABORATORY | | | | [address];[place] | | | | | | [address] | | | | + + + + + + + + | Specimen | + + | | + + + + + + + | Performing | Address | City/State/Zipcode | Phone Number | | Organization | | | | + + + + + | [facility] | [address] | [place] [address] | [phone] | + + + + + Type [...] + + + | BB BAND | [id number] | | [facility] | | | | | | LABORATORY | | + + + + + + | BB BAND | Testing performed at | | [facility] | | | | [facility];[address] | LABORAT[address] | | | [address];[place] [address] | | | | + + + + + + + + | Specimen | + + | Blood | + + + + + + + | Performing | Address | City/State/Zipcode | Phone Number | | Organization | | | | + + + + + | [facility] | [address] | [place] [address] | [phone] | + + + + + POC Glucose (03/29/2019 6:42 AM PDT) + + + + + + | Component | Value | Ref Range | Performed | Pathologist | | | | | At | Signature | + + + + + + | Glucose, | 96Comment: Testing | 65 - 99 mg/dL | [facility] | | | POC | performed at [facility];[address] | | LABORATORY | | | | [address];[place] | | | | | | [address] | | | | + + + + + + + + | Specimen | + + | | + + + + + + + | Performing | Address | City/State/Zipcode | Phone Number | | Organization | | | | + + + + + | [facility] | [address] | [place] [address] | [phone] | + + + + + documented [...]
--- OUTSIDE RECORDS SUMMARY | ~2020-02-22 | XMS | Encounter Summary ---
Demographics + + + | Address | [address] | | | [place] [address] | + + + | Home Phone [...] Team Providers + +------+ + | Care Scout Leaser Name | Role | Phone | + [...] | | | | | Complete | [place], [place] | [address] | | | | | | [address] | Phone: | | | | | | Phone: | [phone] | | | | | | [phone] | Fax: | | | | | | Fax: | [phone] | | | | | | [phone] | | +--------+--------+ + + + + [...] | | Procedures | [address] | [place], [place] | | | | | CONSULT | Ave | [address] Phone: | | | | | | [place], | [phone] | | | | | | [place] | Fax: | | | | | | [address] | [phone] | | | | | | Phone: | | | | | | | [phone] | | | | | | | Fax: | | | | | | | [phone] | | +--------+--------+ + + + + [...] | [address] | [place], [place] | Syncope, unspecified | | | | [address] | [address] | syncope type; | | | | [place] | | Hypertension, | | | | [address] | | unspecified type | | | | [phone] | | | +--------+---------+ + + + [...] Griffin DO - 06/30/2019 2:[address] [facility] Cardiology Cardiology Consult Note Reason for [...] [facility] MEDICAL PROCEDU RE UNIT HARDWARE REMOVAL Left 03/29/2019 Procedure: REMOVE HARDWARE LOWER EXTREMITY-HIP; Surgeon: Mark Montana MD; Location : [facility] MAIN OR PARTIAL HYSTERECTOMY 1972 RECTOCELE REPAIR 1991 TAILBONE 1973 broken, partial removal TONSILLECTOMY 1938 TOTAL HIP ARTHROPLASTY Left 03/29/2019 Procedure: Posterior Total Hip Arthroplasty; Surgeon: Mark Montana MD; Location: [facility] MAIN OR MEDICATIONS Home Medications Outpatient Encounter [...] [facility]) MISC Take by mouth. 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
--- OUTSIDE RECORDS SUMMARY | ~2020-02-22 | XMS | Encounter Summary ---
Demographics + + + | Address | [address] | | | [place] [address] | + + + | Home Phone [...] | Author | [facility] | + + + | Organization | [facility] | + + + | Address | [...] Providers + +------+ + | Care Stone Carver Name | Role | Phone | + [...] Clinic Dermatology | | | | | [facility] | [address] | | | | | and Healing, | [place] | | | | | [facility] | [address] | | | | | Floor [place], [place] | | | | | | [address] | | | | | | [phone] | | | +--------+ + + + [...] | OLOGY | | | | Case: [id number] | | | | | | | [...] [facility] | [id number] | [place] [address] | | | DERMATOPATHOLOGY | [address] | | | + + + + + | [facility] | [address] | [place] [address] | | | DERMATOPATHOLOGY | [address] | | | + + + + + documented in this encounter Visit Diagnoses + + | Diagnosis | + + | Neoplasm of uncertain behavior of skin | + + documented in this encounter
--- OUTSIDE RECORDS SUMMARY | ~2020-02-22 | XMS | Encounter Summary ---
Demographics + + + | Address | [address] | | | [place] [address] | + + + | Home Phone [...] Author | [facility] | | | and [place] | + + + | Organization | [facility] | | [...] Team Providers + +------+ + | Care Box Sorter Name | Role | Phone | [...] | | | | | Spondylolist | [place], [place] | [address] | | | | | [place]sis [place] | [address] | Phone: | | | | | L4-L5 level | Phone: | [phone] | | | | | Bilateral | [phone] | Fax: | | | | | lumbar | Fax: | [phone] | | | | | radiculopath | [phone] | | | | | | y [...] | | [place], [place] | [place] [address] | Spondylolisthesis | | | | [address] | [phone] | at L4-L5 level; | | | | [phone] | | Bilateral lumbar | | | [...] F | | | | | | [place] [address] | | | | | | [phone] | | | | | | | [...]
--- OUTSIDE RECORDS SUMMARY | ~2020-02-22 | XMS | Encounter Summary ---
Demographics + + + | Address | [address] | | | [place] [address] | + + + | Home Phone | | + + + | Preferred Language | Unknown | + + + | Marital Status | | + + + | Jainism Affiliation | Unknown | + + + [...] Team Providers + +------+ + | Care Roustabout Pusher Name | Role | Phone | + [...] [id number] | | | | | | [facility] | | | | | | and Healing, | | | | | | [address] | | | | | | Floor [place], [place] | | | | | | [address] | | | | | | [phone] | | | +--------+ + + + [...] ls | | | | | | Received:[id number] | | | | | | 360-16 [...] Materials | | | | | | Returned:[id number] | | | | | | 360-16 [...] [facility] | [address] | [place] [address] | | | DERMATOPATHOLOGY | [address] | | | + + + + + | [facility] | [address] | [place] [address] | | | DERMATOPATHOLOGY | [address] | | | + + + + + documented in this encounter Visit Diagnoses Not on filedocumented in this encounter"
--- OUTSIDE RECORDS SUMMARY | ~2020-02-22 | XMS | Encounter Summary ---
Demographics + + + | Address | [address] | | | [place] [address] | + + + | Home Phone [...] Team Providers + +------+ + | Care Horticultural Technical Officer Name | Role | Phone | [...] | | | [place] | [place] [address] | | | | | [address] | [phone] | | | | | [phone] | | | +--------+ + + + [...] [address] | | | | | | [place] [address] | | | | | | [phone] | | | | | | | | +--------+---------+ + + + documented as of this encounter Visit Diagnoses Not on filedocumented in this encounter"
--- OUTSIDE RECORDS SUMMARY | ~2020-02-22 | XMS | Encounter Summary ---
Demographics + + + | Address | [address] | | | [place] [address] | + + + | Home Phone [...] Team Providers + +------+ + | Care Electrogalvanizing Machine Operator Name | Role | Phone [...] | | | | | from | [address] | [address] | | | | | [place] at | Kirk Godinez | [place] A | | | | | [facility] | [place], | [place], [place] | | | | | Procedures | [place] | [address] Phone: | | | | | NEW PATIENT | [address] | [phone] | | | | | | Phone: | Fax: | | | | | | [phone] | [phone] | | | | | | Fax: | | | | | | | [phone] | | + +--------+ + + + + Encounter Details +--------+---------+ + + + | Date | Type | Department | Care Team | Description | +--------+---------+ + + + | 03/14/ | Office | [facility] | [place] | 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[facility] [address] | [place], [address]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[place], [place]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 (Primary | | | | [address] | [place] [address] | Dx) | | | | [phone] | [phone] | | | | | | | [...] Procedure: ERCP; Surgeon: Gregor Mccord MD; Location: [facility] MEDICAL PROCEDURE UNIT ERCP N/A 10/14/2016 Procedure: ERCP w/ stent pull; Surgeon: Gregor Mccord MD; Location: [facility] MEDICAL PROCEDU RE UNIT PARTIAL [...] MISC, Take by mouth., Disp: , Rfl: Osseo-3 Fatty Acids (PRO NUTRIENTS OMEGA 3 PO), [...] [address] | | | | | | [place] [address] | | | | | | [phone] | | | | | | | [...]
--- OUTSIDE RECORDS SUMMARY | ~2020-02-22 | XMS | Clinical Summary ---
Demographics + + + | Address | [address] | | | [place] [address] | + + + | Home Phone [...] Providers + +------+ + | Care Stone Grader Name | Role | Phone | + +------+ + PCP | Unavailable | + +------+ + Source Comments FIORELLA is fully live on both [facility] Ambulatory and [facility] InPatient.[facility] Allergies Not on File Medications Not [...] +------+ | MODA MEDICARE | MODA | [id number] | Effect | [phone] | [address] | PPO | | | MEDICA | | nestor | 4 | [address] | | | | RE PPO | | for | | [place], | | | | | | all | | [place] [address] | | | | | | dates [...] | 1936 | [phone] | [place] [address] | | | aiss[place]ou | | | 3 (Home) | | + +--------+ +--------+ + +"
--- OUTSIDE RECORDS SUMMARY | ~2020-02-22 | XMS | Encounter Summary ---
Demographics + + + | Address | [address] | | | [place] [address] | + + + | Home Phone [...] + +------+ + | Care Tank House Supervisor Name | Role | Phone | [...] | | | | [address] | [place] [address] | | | | | JESSICA ZABALA B | [phone] | | | | | [place], [place] | | | | | | [address] | | | | | | [phone] | | | +--------+ + + + [...] Miscellaneous Notes Telephone Encounter - Desiree Martinez Project Crew Worker - 12/07/2019 12:23 PM PDTPatient has been [...] [address] | | | | | | [place] [address] | | | | | | [phone] | | | | | | | | +--------+---------+ + + + documented as of this encounter Visit Diagnoses Not on filedocumented in this encounter"
--- OUTSIDE RECORDS SUMMARY | ~2020-02-22 | XMS | Encounter Summary ---
Demographics + + + | Address | [address] | | | [place] [address] | + + + | Home Phone [...] Providers + +------+ + | Care Occupational Therapist Assistants Name | Role | Phone | + [...] A | | | | | [address] [place], [place] | [place] [address] | | | | | [address] | [phone] | | | | | [phone] | | | +--------+ + + + [...] were given in the hospital. Wear them [id number] d ay for3 to 4weeks. To relieve discomfort at night, get up and move around. Tell all your healthcare providers including your dentist about your artificial join t before any procedure. You mayneed to take antibiotics before dental work and other medic al procedures to reduce the risk of infection. Arrangeto have your lobito removed [id number] after surgery. The lobito were u sed [...] ur hip joint. Use a raisedtoilet seat [id number] after surgery. Ask your healthcare provider if [...] put on socks and shoes. And don't pickler helper items from the floor. Use a cane, [...] draining from the incision Date Last Reviewed: 10/13/201719996836-0804 [employer]. [address] [place] [address]. All righ ts reserved. This information is not intended as a substitute for professional medical care. Always follow your healthcare professional's instructions. Outpatient Medications Marked as Taking for the 03/21/19 encounter (Preadmit Visit) with [facility] ROOM 2 Medication Sig Instructions acetaminophen (TYLENOL) [...] of proced ure Multiple Vitamins-Minerals ([facility]) MISC Take by mouth. DO NOT TAKE day of procedure Wh[place]ore-3 Fatty Acids (PRO NUTRIENTS OMEGA 3 PO) [...] Pt states she saw Dr Paz in [place] for cardiac clearance in February and was [...] [address] | | | | | | [place] [address] | | | | | | [phone] | | | | | | | [...] | [facility] | | | Screen | [facility];[address] | | LABORATORY | | | | [address];[place] [address] | | | | + + + + + + + + | Specimen | + + | Blood | + + + + + + + | Performing | Address | City/State/Zipcode | Phone Number | | Organization | | | | + + + + + | [facility] | [address] | [place] [address] | [phone] | + + + + + MRSA [...] JETHRO | | | | performed at [facility];[address] | | LABORATORY | | | | [address];[place] | | | | | | [address] | | | | + + + [...] [facility] | [address] | [place] [address] | [phone] | + + + + + Hemoglobin A1C (03/21/2019 3:33 PM PDT) + + + + + + | Component | Value | Ref Range | Performed | Pathologist | | | | | At | Signature | + + + + + + | Hemoglobin | 5.8Comment: HbA1c method | 4.0 - 6.0 % | [facility] | | | A1c | [...] 120Comment: Estimated | <154 mg/dL | [facility] | | | Average | Average Glucose | | LABORATORY | | | Glucose | calculated from | | | | | | hemoglobin A1c by use of | | | | | | the ADArecommended | | | | | | formula.Testing | | | | | | performed at [facility], [address] | | | | | | [facility], | | | | | | [place] [address] | | | | + + + + + + + + | Specimen | + + | Blood | + + + + + + + | Performing | Address | City/State/Zipcode | Phone Number | | Organization | | | | + + + + + | [facility] | [address] | [place] [address] | [phone] | + + + + + CBC [...] | | | | | performed at [facility] | | | | | | [address];[place], [place] | | | | | | [address] | | | | + + + + + + + + | Specimen | + + | Blood | + + + + + + + | Performing | Address | City/State/Zipcode | Phone Number | | Organization | | | | + + + + + | [facility] | [address] | [place] [address] | [phone] | + + + + + Basic [...] | | | | | performed at [facility] | | | | | | [facility];[place], [place] | | | | | | [address] | | | | + + + + + + + + | Specimen | + + | Blood | + + + + + + + | Performing | Address | City/State/Zipcode | Phone Number | | Organization | | | | + + + + + | [facility] | [address] | [place] [address] | [phone] | + + + + + ECG [...]
--- OUTSIDE RECORDS SUMMARY | ~2020-02-22 | XMS | Encounter Summary ---
Demographics + + + | Address | [address] | | | [place] [address] | + + + | Home Phone [...] Providers + +------+ + | Care Mold Yard Supervisor Name | Role | Phone [...] 2017 | | GASTROENTEROLOGY | [address], [place] | | | | | [address] [place] | [address] [place], [place] | | | | | [address] [place], [place] | [address] | | | | | [address] | | | | | | [phone] | | | +--------+ + + + [...] [address] | | | | | | [place] [address] | | | | | | [phone] | | | | | | | | +--------+---------+ + + + documented as of this encounter Visit Diagnoses Not on filedocumented in this encounter"
--- OUTSIDE RECORDS SUMMARY | ~2020-02-22 | XMS | Encounter Summary ---
Demographics + + + | Address | [address] | | | [place] [address] | + + + | Home Phone [...] Providers + +------+ + | Care Cloth Cutter Name | Role | Phone | + +------+ + PCP | Unavailable | + +------+ + Encounter Details +--------+ + + + + | Date | Type | Department | Care Team | Description | +--------+ + + + + | 10/20/ | Hospital | [facility] | | | | 1999 | Encounter | [facility] | | | | | | [address] | | | | | | [place] | | | | | | [address] | | | | | | [phone] | | | +--------+ + + + [...] | | | | | [place] [address] | | | | | | [phone] | | | | | | | | +--------+---------+ + + + documented as of this encounter Visit Diagnoses Not on filedocumented in this encounter"
--- OUTSIDE RECORDS SUMMARY | ~2020-02-22 | XMS | Encounter Summary ---
Demographics + + + | Address | [address] | | | [place] [address] | + + + | Home Phone [...] Team Providers + +------+ + | Care Billing Coordinator Name | Role | Phone | [...] [place] | | | | | | [address] | | | | | | [phone] | | | +--------+ + + + [...] | | | | | [place] [address] | | | | | | [phone] | | | | | | | | +--------+---------+ + + + documented as of this encounter Visit Diagnoses + + | Diagnosis | + + | Other screening mammogram | + + documented in this encounter"
--- OUTSIDE RECORDS SUMMARY | ~2020-02-22 | XMS | Encounter Summary ---
Demographics + + + | Address | [address] | | | [place] [address] | + + + | Home Phone [...] | Author | [facility] | | | and [place] | + + + | Organization | [facility] | | [...] Team Providers + +------+ + | Care Button Tufting Machine Operator Name | Role | Phone [...] | | | | [address] | [place] [address] | | | | | [address]ICA [address]ASS[address] | [phone] | | | | | [place], [place] | | | | | | [address] | | | | | | [phone] | | | +--------+ + + + [...] Miscellaneous Notes Telephone Encounter - Indira Miranda, Sprayer Operator - 02/21/2020 12:30 PM PDTLM for niko [...] [place] | | | | | | [facility] [address] | | | | | | [phone] | | | | | | | | +--------+---------+ + + + documented as of this encounter Visit Diagnoses Not on filedocumented in this encounter"
--- OUTSIDE RECORDS SUMMARY | ~2020-02-22 | XMS | Encounter Summary ---
Demographics + + + | Address | [address] | | | [place] [address] | + + + | Home Phone [...] Team Providers + +------+ + | Care Hydrogeology Professor Name | Role | Phone | [...] Hyper | MD Malcom | [address] | | | | | reflexia | [address] | [place], | | | | | Abnormal | [address] | [place] | | | | | gait | [address] | [address] | | | | | Procedures | [place], [place] | Phone: | | | | | MRI Cervical | [address] | [phone] | | | | | Spine wo | Phone: | Fax: | | | | | Contrast | [phone] | [phone] | | | | | | Fax: | | | | | | | [phone] | | +--------+--------+ + + + + [...] [address] | [address] [place], | Abnormal gait | | | | [place] | [place] [address] | | | | | [address] | [phone] | | | | | [phone] | | | +--------+ + + + [...] | | | | | [place] [address] | | | | | | [phone] | | | | | | | [...]
--- OUTSIDE RECORDS SUMMARY | ~2020-02-22 | XMS | Encounter Summary ---
Demographics + + + | Address | [address] | | | [place] [address] | + + + | Home Phone [...] Providers + +------+ + | Care Physician Extender Name | Role | Phone | + +------+ + | Susan Leos | PCP | | | PA-C | | | + +------+ + Encounter Details +--------+ + + + + | Date | Type | Department | Care Team | Description | +--------+ + + + + | 12/07/ | Hospital | [facility] | Motaghi, Sam, DO | | | 2020 | Encounter | [facility] | [address] | | | | | XRAY [address] | [place] [address] | | | | | DR [address], | [phone] | | | | | [place] [address] | | | | | | [phone] | | | +--------+ + + + [...] | | 0 | | | | [id number] | mouth Daily. | | | | [...] | | | | [place] [address] | | | | | | [phone] | | | | | | | [...]
--- OUTSIDE RECORDS SUMMARY | ~2020-02-22 | XMS | Encounter Summary ---
Demographics + + + | Address | [address] | | | [place] [address] | + + + | Home Phone [...] Team Providers + +------+ + | Care Needle Bar Molder Name | Role | Phone | [...] | | | | [address] | [place] [address] | | | | | [address]ICA HASSAN | [phone] | | | | | [place], [place] | | | | | | [address] | | | | | | [phone] | | | +--------+ + + + [...] Miscellaneous Notes Telephone Encounter - Desiree Martinez Excelsior Machine Operator - 12/21/2019 1:46 PM PDTLM daphne zhang patient know we got the message that she was confirming her procedure for tomorrow matteo ford at 0930 elephone Encounter - Desiree Cornejo - 12/21/2019 1:24 PM PDTJune, is chaoin g call for Pre-Procedure and would like a call back. Additional Call Details: Returned call to confirm elephone Encoun Desiree Cui Excelsior Machine Operator - 12/21/2019 1:22 PM PDTLM for patient [...] [address] | | | | | | [place] [address] | | | | | | [phone] | | | | | | | | +--------+---------+ + + + documented as of this encounter Visit Diagnoses Not on filedocumented in this encounter"
--- OUTSIDE RECORDS SUMMARY | ~2020-02-22 | XMS | Encounter Summary ---
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
[~2020-02-22 15:56] MED LIST changes: +KEFLEX500 MG PO
--- OUTSIDE RECORDS SUMMARY | 2020-02-22 16:00 | XMS ---
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 TOTAL 9 NOTE: Visits indicate total known visits. ED/UCC VISIT TRACKING (12 MO.) 02/22/2020 15:57 [facility] TYPE: Emergency COMPLAINT: - NECK PAIN 02/17/2020 13:23 [facility] TYPE: Emergency COMPLAINT: - SYNCOPE DIAGNOSES: - Type 2 diabetes mellitus without complications - Dizziness and giddiness - Allergy status to other drugs, medicaments and biological sub - Allergy status to penicillin - Syncope and collapse - Urinary tract infection, site not specified - Allergy status to other antibiotic agents status - Other termite exterminator helper (current) drug therapy - Hypothyroidism, unspecified 02/11/2020 19:14 [facility] [place] TYPE: Emergency COMPLAINT: - ABDOMINAL PAIN DIAGNOSES: - Allergy status to sulfonamides status - Hypothyroidism, unspecified - Essential (primary) hypertension - Type 2 diabetes mellitus with diabetic neuropathy, unspecifie - Other fci (current) drug therapy - Pure hypercholesterolemia, unspecified [...] - Allergy status to penicillin - Other fci (current) drug therapy - Allergy status to sulfonamides status 05/05/2019 13:21 [facility] [place] TYPE: Emergency COMPLAINT: - FALL DIAGNOSES: - FCI (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 - Hypothyroidism, unspecified - Strain of muscle, fascia and tendon at neck level, initial en - Type 2 diabetes mellitus with diabetic neuropathy, unspecifie - Other fci (current) drug therapy - Pure hypercholesterolemia, unspecified [...] tract infection, site not specified - Other termite exterminator helper (current) drug therapy - Allergy status to [...] drugs, medicaments and biological sub - Other fci (current) drug therapy - Personal history of other malignant neoplasm of skin - Altered mental status, unspecified - Allergy status to other antibiotic agents status 03/23/2019 20:56 [facility] [place] TYPE: Emergency COMPLAINT: - HIGH BLOOD PRESSURE DIAGNOSES: - Allergy status to penicillin - Allergy status to sulfonamides status - Other termite exterminator helper (current) drug therapy - Hypothyroidism, unspecified - [...] status to other antibiotic agents status - watermelon harvesting supervisor (current) use of opiate analgesic - Allergy status to other drugs, medicaments and biological sub - Anemia, unspecified - Nonrheumatic aortic (valve) stenosis - Allergy status to penicillin - Other intervertebral disc degeneration, lumbar region - Allergy status to sulfonamides status - Other termite exterminator helper (current) drug therapy - Hypothyroidism, unspecified - Allergy status to sulfonamides status - Gastro-esophageal reflux disease without esophagitis - watermelon harvesting supervisor (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 - watermelon harvesting supervisor (current) use of opiate analgesic - Other intervertebral disc degeneration, lumbar region - Allergy status to other antibiotic agents status - Essential (primary) hypertension - Spondylolisthesis, lumbar region - Other pulmonary embolism without acute cor pulmonale - Stress incontinence (female) (male) - Fracture of unspecified part of neck of left femur, subsequen - Allergy status to penicillin - Other termite exterminator helper (current) drug therapy - Type 2 diabetes mellitus with diabetic polyneuropathy - FCI (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 - Spondylolisthesis, lumbar [...] drugs, medicaments and biological sub - Other termite exterminator helper (current) drug therapy - Spondylolisthesis, lumbar region - Hypo-osmolality and hyponatremia - Type 2 diabetes mellitus with diabetic polyneuropathy - Hypo-osmolality and hyponatremia - Gastro-esophageal reflux disease without esophagitis - Nonrheumatic aortic (valve) stenosis - Gastro-esophageal reflux disease without esophagitis - Other intervertebral disc degeneration, lumbar region - Anemia, unspecified - Other fci (current) drug therapy - Allergy status to [...] - Allergy status to sulfonamides status - FCI (current) use of opiate analgesic - Allergy status to penicillin - Essential (primary) hypertension - Presence of left artificial hip joint - Stress incontinence (female) (male) - Allergy status to other antibiotic agents status - Hypothyroidism, unspecified - Anemia, unspecified - FCI (current) use of opiate analgesic [email or web address]/[email or web address]
[2020-02-22] MEDS ORDERED: TYLENOL325 MG PO (16:10)
[2020-02-22] MEDS ORDERED: CEFDINIR300 MG PO (16:52)
[2020-02-22] MEDS ORDERED: ULTRAM50 MG PO (16:52)
== END 2020-02-22 16:58 | disposition home or self-care (01) ==
LOC: ED 15:56
DX: M54.2 Cervicalgia (principal); N39.0 Urinary tract infection, site not specified; I10 Essential (primary) hypertension; E11.40 Type 2 diabetes mellitus with diabetic neuropathy, unspecified; E03.9 Hypothyroidism, unspecified; Z88.0 Allergy status to penicillin; Z88.2 Allergy status to sulfonamides; Z88.1 Allergy status to other antibiotic agents; Z88.8 Allergy status to other drugs, medicaments and biological substances; Z79.899 Other long term (current) drug therapy
CPT/HCPCS: 99283

== ENCOUNTER 2020-02-28 18:50 | Emergency (ER) | payer MEDICARE, MEDICAID ==
[~2020-02-28] VITALS: Ht 167.6 cm; Wt 72.6 kg
--- OUTSIDE RECORDS SUMMARY | ~2020-02-28 | XMS | Encounter Summary ---
Demographics + + + | Address | [address] | | | [place] [address] | + + + | Home Phone [...] + | Author | [facility] | | | and [place] | + + + | Organization | [facility] | | | [...] Team Providers + +------+ + | Care Biological Science Technician Fish Name | Role | Phone | + +------+ + | Susan Leos | PCP | | | PA-C | | | + +------+ + Reason for Visit Service/Procedure (Routine) +--------+--------+ + + + + | Status | Reason | Specialty | Diagnoses / | Referred By | Referred To | | | | | Procedures | Contact | Contact | +--------+--------+ + + + + | Closed | | Anesthesiolog | Diagnoses | Motaghi, | Motaghi, | | | | y - Pain | | Sam, DO | Sam, DO | | | | Medicine / | Radiculopath | [address] | [address] | | | | Pain Medicine | y, lumbar | ST | [facility] [place], | | | | | region [facility] | [place], [place] | [place] [address] | | | | | Lumbar | [address] | Phone: | | | | | BiLat L4 | Phone: | [phone] | | | | | (03-26) | [phone] | Fax: | | | | | Procedures | Fax: | [phone] | | | | | LA INJECT | [phone] | | | | | | ANES/STEROID | | | | | | | FORAMEN | | | | | | | LUMBAR/SACRA | | | | | | | L W IMG | | | | | | | GUIDE ,1 | | | | | | | LEVEL LA | | | | | | | MOD SED SAME | | | | | | | PHYS/QHP | | | | | | | INITIAL 15 | | | | | | | MINS 5/> YRS | | | | | | | PROCEDURE | | | +--------+--------+ + + + + Encounter Details +--------+ + + + + | Date | Type | Department | Care Team | Description | +--------+ + + + + | 12/07/ | Hospital | [facility] | Sam Samuels DO | Spondylolisthesis at | | 2020 | Encounter | INTERVENTIONAL PAIN | [address] | L4-L5 level | | | | MGMT [address] | [place] [address] | (Primary Dx); Lumbar | | | | [facility], | [phone] | radiculopathy; | | | | [place] [address] | | Spinal stenosis of | | | | [phone] | | lumbar region with | | | | | | neurogenic | | | | | | claudication; DDD | | | | | | (degenerative disc | | | | | | disease), lumbar | +--------+ + + + + Social [...] + + + | Blood Pressure | 191/83 | 12/08/2019 10:25 AM | | | | | PDT | | + + + + + | Pulse | 52 | 12/08/2019 10:25 AM | | | | | PDT | | + + + + + | Temperature | 37.2 C (99 F) | 12/08/2019 10:20 AM | | | | | PDT | | + + + + + | Respiratory Rate | 14 | 12/08/2019 10:25 AM | | | | | PDT | | + + + + + | Oxygen Saturation | 96% | 12/08/2019 10:25 AM | | | | | PDT | | + + + + + | Inhaled Oxygen | - | - | | | Concentration | | | | + + + + + | Weight | - | - | | + + + + + | Height | - | - | | + + + + + | Body Mass Index | - | - | | + + + + + documented in this encounter Discharge Instructions Patient Instructions Rose Marie Sanford RN - 12/08/2019 9:50 AM PDTEpidural Steroid Injectio n Discharge Instructions Activity If you received medication for sedation-analgesia, you may experience drowsiness, dizziness , or blurred vision. You are instructed to: ? Rest for 24 hours; avoid strenuous activity. ? DO NOT drive. Do not perform other tasks in which you are required to be alert and coordi nated for the remainder of the day. ? Do not make important decisions today. ? Do not drink alcoholic beverages including beer, wine, etc. ? If you are diabetic, monitor your blood glucose ? Remove your dressing 2-3 hours after your procedure Medications May resume regular medications Diet You may eat a regular diet. If you are experiencing nausea, limit yourself to clear liquids then slowly advance your diet. Pain Control You may experience mild discomfort from the insertion of the needle for your injection. You may apply an ice pack as needed. Put the ice pack on only while you are awake for 20 minute s on, 20 minutes off. No heat including hot pads, heated seats, hot tubs, hot showers, etc. FOR 3 DAYS Dressing Keep the back dry for 24 hours. Effects It can take up to two weeks to feel the effects of the procedure. Follow-up Appointment Schedule an appointment with your physician as instructed. Report to your doctor if you experience: ? Persistent weakness in arms / legs. ? Continuous bleeding from the injection site. ? Persistent headache longer than 24 hours. ? Nausea / vomiting. ? Fever / chills. ? Any problems and / or concerns regarding this procedure. Dr. Sam Samuels and his staff can be contacted at [phone]. If you are unable to contact your doctor or their associate, you may come to the Emergency Department at [facility]. These instructions have been explained to the patient and escort. The patient received a co py and patient / escort verbalized understanding of these instructions documented in this encounter Medications at Time of Discharge + + + +---------+ + + | Medication | Sig | Dispensed | Refills | Start | End Date | | | | | | Date | | + + + +---------+ + + | Ascorbic Acid | Take 500 mg by mouth | | 0 | | | | (VITAMIN C) 500 MG | Daily. | | | | | | CAPS | | | | | | + + + +---------+ + + | aspirin 81 mg EC | Take 81 mg by mouth | | 0 | | | | tablet | Daily. | | | | | + + + +---------+ + + | atenolol | Take 50 mg by mouth | | 0 | | | | (TENORMIN) 50 mg | Daily. | | | | | | tablet | | | | | | + + + +---------+ + + | [employer] TRIPLE | Take 400 mg by mouth | | 0 | | | | MAGNESIUM COMPLEX PO | Daily. | | | | | + + + +---------+ + + | docusate sodium | Take 100 mg by mouth | | 0 | | | | (COLACE) 100 mg | Twice daily as | | | | | | capsule | needed. | | | | | + + + +---------+ + + | | Take 1 capsule by | | 0 | | | | PE-Kerltuvyor-Wtzgiv | mouth Daily. | | | | | | obalamin (FOLBIC PO) | | | | | | + + + +---------+ + + | ferrous sulfate | Take 325 mg by mouth | | 0 | | | | 325 mg tablet | daily (with | | | | | | | breakfast). | | | | | + + + +---------+ + + | gabapentin | Take 600 mg by mouth | | 0 | | | | (NEURONTIN) 300 mg | 3 times daily. | | | | | | capsule | Takes 60o mg in am , | | | | | | | 300 mg at noon, and | | | | | | | 600 mg at night | | | | | + + [...] +---------+ + + | Multiple | Take 1 capful by | | 0 | | | | Vitamins-Minerals | mouth Daily. | | | | | | (MACULAR HEALTH | | | | | | | FORMULA) CAPS | | | | | | + [...] + + | POTASSIUM CITRATE | Take 99 mg by mouth | | 0 | | | | PO | Daily. | | | | | + + + +---------+ + + | Psyllium | Take 1 Dose by mouth | | 0 | | | | (METAMUCIL PO) | as needed. | | | | | + + + +---------+ + + | venlafaxine | Take 75 mg by mouth | | 3 | 04/21/20 | | | (EFFEXOR XR) 75 mg | Daily. | | | 19 | | | 24 hr capsule | | | | | | + + + +---------+ + + documented as of this encounter Procedure Notes Sam Samuels DO - 12/08/2019 10:03 AM PDT OPERATIVE REPORT NAME: Scarlet Murguia MR#: [id number] : 1935 DATE: 12/08/2019 SURGEON Sam Samuels D.O. PREOPERATIVE DIAGNOSIS M54.5 M54.16 POSTOPERATIVE DIAGNOSIS M54.5 M54.16 PROCEDURE A bilateral L4 transforaminal epidural steroid injection under fluoroscopic guidance and c ontrast confirmation. ANESTHESIA Monitored anesthesia care given by RN. ESTIMATED BLOOD LOSS None. COMPLICATIONS None. PREOPERATIVE EVALUATION The patient was evaluated in the office and was found to have the above diagnosis. Risks, benefits, complications, and alternatives were discussed with the patient. The patie nt agreed to proceed with the procedure and signed the consent. DESCRIPTION OF PROCEDURE The patient was brought to the procedure room and laid in the prone position with a pillow under the abdomen. Monitors were applied including a blood pressure cuff, EKG, pulse ox, and O2 nasal cannula. An IV was started in the upper extremity. The lumbo-sacral area was prepp ed with chloraprep and draped in the usual sterile fashion. A critical pause was taken. Usin g oblique fluoroscopy, the chin of the Geo dog was identified on theright, and the skin a nd deeper tissues just below were localized with 1% lidocaine with bicarb. We used a 22-gaug e, 5-inch Chiba needle for the procedure. The needle was guided by fluoroscopy just undernea th the chin of the Geo dog of L4 . Under AP fluoroscopy, the needle was advanced to the 6 o'clock position of the [id number] respectively. The entire procedure was repeated on the l eft. After negative aspiration of CSF and blood and with no paresthesias, Isovue 200 contras t dye was injected at each site with excellent outlining of the L4 nerve roots. Each site th en underwent injection of 3 ml of block solution. Block solution contained 60 mg of triamcin olone and 4.5 ml of 0.25% Naropin. Hooks were removed intact, skin was cleansed, and sanchez ges were applied. Except for the local injection to the skin, all injections were done with extension tubing. The patient tolerated the procedure extremely well and was rolled to the supine position an d brought to the recovery room. The total fluoroscopy time was 39 seconds. Conscious sedation was provided by the nursing staff during the procedure under my supervis ion. Sedation time: 8 minutess Medications: 0 mg versed and 50 mcg fentanyl. PLAN 1. The patient was given a post-block instruction sheet and an appointment on 12-22-19 for a bilateral L3 TFE. 2. The patient is to continue with current medications as prescribed. 3. The patient is to follow the discharge instructions. Moderate Sedation Presedation Assessment completed. The patient was reassessed immediately prior to sedation with no significant clinical cruz es in the exam, including heart and lungs, since the completion of H&P ASA Classification: ASA 2: Patient with a mild systemic disease Mallampati Classification: II: Visibility of hard and soft palate, upper portion of tonsil s and uvula documented in this enc ounter Plan of Treatment +--------+---------+ + + + | Date | Type | Specialty | Care Team | Description | +--------+---------+ + + + | 05/17/ | Office | Cardiology | Jeniffer Haines | | | 2019 | Visit | | [address] | | | | | | [address] [address] | | | | | | [place] [address] | | | | | | [phone] | | | | | | | | +--------+---------+ + + + + +---------+--------+ + + | Name | Type | Priori | Associated Diagnoses | Date/Time | | | | ty | | | + +---------+--------+ + + | FL C-Arm | Imaging | Routin | | 12/08/2019 10:17 AM | | | | e | | PDT | + +---------+--------+ + + + +---------+--------+ + + | Name | Type | Priori | Associated Diagnoses | Order Schedule | | | | ty | | | + +---------+--------+ + + | FL C-Arm | Imaging | Routin | | One time imaging One | | | | e | | time imaging for 1 | | | | | | Occurrences starting | | | | | | 12/08/2019 until | | | | | | 12/08/2019 | + +---------+--------+ + + documented as of this encounter [...] | + + documented in this encounter Administered Medications + +--------+ +--------+------+------+ | Medication Order | MAR | Action | Dose | Rate | Site | | | Action | Date | | | | + +--------+ +--------+------+------+ | fentaNYL (PF) injection | Given | 12/08/19 | 50 mcg | | | | Intravenous, ONCE PRN, Starting | | 20 10:08 | | | | | Luly 12/08/19 at 1008 | | AM PDT | | | | + +--------+ +--------+------+------+ +---+---+ | | | +---+---+ + +-------+ +-------+---+---+ | sodium chloride (PF) 0.9% | Given | 12/08/19 | 5 mLs | | | | injection flush Intravenous, | | 20 10:08 | | | | | ONCE PRN, Starting Luly 12/08/19 at | | AM PDT | | | | | 1008 | | | | | | + +-------+ +-------+---+---+ +---+---+ | | | +---+---+ + +-------+ +-------+---+ + | triamcinolone acetonide | Given | 12/08/19 | 60 mg | | Other | | (KENALOG-40) 40 mg/mL injection | | 20 10:12 | | | (Comment | | ONCE PRN, Starting Luly 12/08/19 at | | AM PDT | | | ) | | 1012, Intra-op | | | | | | + +-------+ +-------+---+ + +---+---+ | | | +---+---+ documented in this encounter"
--- OUTSIDE RECORDS SUMMARY | ~2020-02-28 | XMS | Encounter Summary ---
Demographics + + + | Address | [address] | | | [place] [address] | + + + | Home Phone | | + + + | Preferred Language | Unknown | + + + | Marital Status | | + + + | Rastafari Affiliation | 1077 | + + + | Race | White | + + + | Ethnic Group | Not or | + + + Author + + + | Author | [facility] | | | and [place] | + + + | Organization | [facility] | | | and [...] Team Providers + +------+ + | Care Asphalt Smoother Name | Role | Phone | + +------+ + | Susan Leos | PCP | | | PA-C | | | + +------+ + Reason for Referral Diagnostic/Screening (Urgent) + +--------+ + + + + | Status | Reason | Specialty | Diagnoses / | Referred By | Referred To | | | | | Procedures | Contact | Contact | + +--------+ + + + + | Authorized | | Diagnostic | Diagnoses | Zaki, | [facility] | | | | Radiology | Essential | [facility] | | | | | hypertension | 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 [address] | [address] | | | | | Systolic | TABITHAS | TY BLOOM | | | | | murmur | VJ F | [place], [place] | | | | | Syncope and | [place], [place] | [address] | | | | | collapse | [address] | Phone: | | | | | Dyspnea on | Phone: | [phone] | | | | | exertion | [phone] | Fax: | | | | | Procedures | Fax: | [phone] | | | | | ECHO | [phone] | | | | | | Complete | | | + +--------+ + + + + Reason for Visit + + + | Reason | Comments | + + + | Follow-up | 2 month | + + + Encounter Details +--------+---------+ + + + | Date | Type | Department | Care Team | Description | +--------+---------+ + + + | 10/12/ | Office | [facility] | Jeniffer Haines | Essential | | 2020 | Visit | CARDIOLOGY [place] | [address] | hypertension | | | | [address] | [address] | (Primary Dx); Mixed | | | | [address] | [place] [address] | hyperlipidemia; | | | | [place], [place] | [phone] | Systolic murmur; | | | | [address] | | Syncope and | | | | [phone] | | collapse; | | | | | | Hypothyroidism, | | | | | | unspecified type; | | | | | | Dyspnea on exertion | +--------+---------+ + + + Social History [...] + + + | Blood Pressure | 128/60 | 10/13/2019 10:02 AM | | | | | PDT | | + + + + + | Pulse | 58 | 10/13/2019 10:02 AM | | | | | PDT | | + + + + + | Temperature | - | - | | + + + + + | Respiratory Rate | - | - | | + + + + + | Oxygen Saturation | 98% | 10/13/2019 10:02 AM | | | | | PDT | | + + + + + | Inhaled Oxygen | - | - | | | Concentration | | | | + + + + + | Weight | 70.4 kg (155 lb 1.6 | 10/13/2019 10:02 AM | | | | oz) | PDT | | + + + + + | Height | 167.6 cm (5' 6") | 10/13/2019 10:02 AM | | | | | PDT | | + + + + + | Body Mass Index | 25.03 | 10/13/2019 10:02 AM | | | | | PDT | | + + + + + documented in this encounter Patient Instructions Patient Instructions Zaki Sapphire, FNP - 10/13/2019 10:00 AM PDTI also ordered you an Echo to be done at [facility] in the next 2-3 weeks, and call us if you do not get a call from them to schedule Within next 7-10 days I made No changes to medications See me back in 6 weeks documented in this encounter Progress Notes Zaki Sapphire, FNP - 10/13/2019 10:00 AM PDTFormatting of this note might be differe nt from the original. Date of visit: 10/13/2019 Primary Care Physician: Susan Leos PA-C CHIEF COMPLAINT: Chief Complaint Patient presents with Follow-up 2 month HISTORY OF PRESENT ILLNESS: Ms Ewelina Murguia is an 83 year old woman who is here today to follow up on her event mon itor and Echo. She is accompanied today by her daughter due to her poor memory, who contributed to histo ry She is a patient of and last seen by her 06/30/2019 For initial consultation fo r a murmer and syncopal episodes, and ordered her an Echo and 1 month event monitor . Today, I reviewed all previous documentation available to me in electronic medical alyssa rds and from external sources. She has a history of murmur since childhood, recurrent syncope, hypertension, hypothyroidis m , and provoked DVT and PE after ORIF for hip fracture and is on Xarelto, EMEA, and GERD. There is a mention of aortic stenosis from 2017 on external records, but I am unable to fin d any Echo results to support this, neither she nor her daughter think she has ever had an E cho, or been diagnosed with aortic stenosis Her current and previous testing and procedures are detailed below She reports today not had any syncopal episodes or any dizziness or lightheadedness since she saw Dr. Griffin in June. She reports does have some dyspnea with more extreme exertion, at rest, and denies any ch est pain, palpitations, or any signs or symptoms of stroke or TIA. She also denies any [facility] hospital room visits or hospitalizations since she saw her last. She also continues to suffer from neuropathy which also contributes to her falls and lac k of balance. She rarely drinks alcohol, but does take 1 marijuana edible every night to help her sle ep, but denies any use of other recreational or illicit drugs. REVIEW OF SYSTEMS: Negative except for pertinent items noted in HPI. Constitutional: Denies fatigue or unexplained weight loss. Appetite is good. Weight is st able. Denies night sweats fevers or chills HENT: Denies nosebleeds. Denies hearing problems. Denies dysphagia Eyes: Denies visual disturbance or double vision. Macular degeneration Respiratory/Sleep: KAYE with more extreme exertion: Denies cough Denies hemoptysis or excess nestor sputum production. Denies snoring, orthopnea, PND. Cardiovascular: Denies chest pain, palpitations and leg swelling. Denies history of rheuma tic fever. Denies claudication . Denies AAA. Gastrointestinal: GERD . Denies nausea, vomiting, abdominal pain and blood in stool.Alonso es PUD . Genitourinary: Denies hematuria. Rest incontinence Musculoskeletal: DDD, Left hip replacement , bilateral lumbar radiculopathy. Spondylolisth eses L4-L5. Denies myalgias Skin: Denies color change. Denies rash or lesions. Skin cancer to arms, Hands, and fac e Neurological: Hx falls, syncope, balance issues, neurogenic claudication, peripheral neurop athy Denies history of stroke/Transient ischemic attack.Denies history of seizures. Hematological/Oncology .Chronic anemia Bruises easily. Denies bleeding . history of tricia jason: skin cancer only : no melanoma Denies Hx blood transfusion Hx DVT/PE post hip replaceme nt , did not follow directions for prophylaxis. Endocrine: Denies current Diabetes (Hgb A1C 5.5 08/2019 w/o meds) . Hypothyroidism. Denie s excessive thirst or hunger. Psychiatric/Behavioral: Depression, on Effexor since in 2018. denies any history o f anxiety or other psychiatric illness. Vaccines: Current on 209 flu vaccine. Current on post 65 pneumonia vaccines?. Habits/Social : Denies history of smoking. rare EtOH use. Uses marijuana edibles on nightl y basis for 5 years Denies other recreational or illicit drug use. Exercises Rarely due to poor balance. Lives in [place] since 2018. 2 daughters. Outpatient Medications Prior to Visit Medication Sig Dispense Refill Ascorbic Acid (VITAMIN C) 500 MG CAPS Take 500 mg by mouth Daily. aspirin 81 mg EC tablet Take 81 mg by mouth Daily. atenolol (TENORMIN) 25 mg tablet Take 25 mg by mouth Daily. Calcium Carb-Cholecalciferol (CALCIUM 500 + D3 PO) Take 1 tablet by mouth 2 times daily . cephalexin (KEFLEX) 500 mg capsule Take 50 mg by mouth Daily. Cetirizine HCl (ALLERGY RELIEF) 10 MG liqui-gel Take 10 mg by mouth Daily. [employer]S TRIPLE MAGNESIUM COMPLEX PO Take 400 mg by mouth Daily. docusate sodium (COLACE) 100 mg capsule Take 100 mg by mouth Twice daily as needed. JH-Fudtxsnwkj-Siycdvhlliblhl (FOLBIC PO) Take by mouth. ferrous sulfate 325 mg tablet Take 325 mg by mouth daily (with breakfast). gabapentin (NEURONTIN) 300 mg capsule Take 300 mg by mouth 3 times daily. Garlic 1000 MG CAPS Take 1 tablet by mouth Daily. levothyroxine (SYNTHROID, LEVOTHROID) 100 mcg tablet Take 100 mcg by mouth every mornin g (before breakfast). losartan (COZAAR) 50 mg tablet Take 50 mg by mouth Daily. Multiple Vitamins-Minerals (MACULAR HEALTH FORMULA) CAPS Take 1 capful by mouth Daily. Multiple Vitamins-Minerals ( MACULAR HEALTH) MISC Take by mouth. [place]-3 Fatty Acids (OMEGA-3 2100 PO) Take by mouth. omeprazole (PRILOSEC) 20 mg capsule Take 20 mg by mouth every morning (before breakfast ). ondansetron (ZOFRAN ODT) 4 mg disintegrating tablet Take 4 mg by mouth every 8 hours as needed. POTASSIUM CITRATE PO Take 99 mg by mouth Daily. Psyllium (METAMUCIL PO) Take by mouth Daily. UNABLE TO FIND [facility] venlafaxine (EFFEXOR XR) 75 mg 24 hr capsule Take 75 mg by mouth Daily. 3 No facility-administered medications prior to visit. PHYSICAL EXAM: Wt Readings from Last 3 Encounters: 10/13/19 70.4 kg (155 lb 1.6 oz) 08/15/19 70.3 kg (155 lb) 06/30/19 70.3 kg (155 lb) Temp Readings from Last 3 Encounters: 03/31/19 36.5 C (97.7 F) (Oral) 10/14/16 36.2 C (97.2 F) 09/26/16 37 C (98.6 F) (Temporal) BP Readings from Last 3 Encounters: 10/13/19 128/60 06/30/19 138/60 05/16/19 128/66 Pulse Readings from Last 3 Encounters: 10/13/19 58 08/15/19 57 06/30/19 70 GENERAL: Thin older woman , in no distress. Appears approximately stated age. HEENT: Normocephalic, atraumatic. EYES: PERRL, EOM normal. MOUTH: Oral mucosae moist, dentition adequate, no lesions noted NECK: No JVD, lymphadenopathy, thyromegaly, bruits. Carotid pulses are 2+ bilaterally LUNGS/CHEST: Clear bilaterally, with no rales, rhonchi or wheezing noted, respirations unl abored HEART: Nondisplaced PMI, regular rate and rhythm, S1, S2 normal. 3/6 murmur LUSB No rubs or gallops noted. ABDOMEN: Soft, nontender, no organomegaly, masses or bruits. Bowel sounds are normal in a ll 4 quadrants. The abdominal aortic pulsation is not palpable. EXTREMITIES: No edema. Radial pulses 2+ bilaterally. Femoral pulses are 2+ bilaterally wi thout bruits. DP and PT pulses are 2+ bilaterally. No clubbing. SKIN: Warm and dry, capillary refill is normal, no lesions. NEUROLOGIC: Awake, alert and oriented x 3. No focal motor or sensory deficits. PSYCHIATRIC: Appropriate, affect appears normal DATA: Blood tests: Lab Results Component Value Date WBC 7.06 03/21/2019 RBC 4.69 03/21/2019 HGB 9.2 (L) 03/30/2019 HCT 27.3 (L) 03/30/2019 PLT 294 03/21/2019 Lab Results Component Value Date NA 139 03/21/2019 K 3.8 03/21/2019 CL 102 03/21/2019 CO2 29 03/21/2019 ANIONGAP 12 03/21/2019 BUN 7 (L) 03/21/2019 EGFR >60 03/21/2019 No results found for: CHOL, TRIG, LDL, LDL, GLUF Lab Results Component Value Date TSH 0.98 02/25/2016 No results found for: TOTEPI CARDIAC PROCEDURES/IMAGING-none VASCULAR TESTING AND PROCEDURES-none ECHO Ordered 06/30/2019. Ordered again 10/13/2019 EKG/EVENT MONITOR 1 month event monitor:07/07-08/06/2019: Sinus rhythm, average rate 64 bpm, range 46-110 bpm, bradycardia 32%. Slowest bradycardia 27 bpm at 1708 for 14.9 seconds. SVT 57 episodes, lo ngest run 126 bpm for 24 beats, fastest run 151 bpm for 4 beats no atrial fib or flutter,no VT, no pauses or blocks. normal circadian rhythm, 1 patient triggered event reported shortn ess of breath corresponding with sinus rhythm at 82 bpm EK06/30/2019: Normal sinus rhythm low voltage QRS leads III, aVL, V2, nonspecific ST-T wa ve abnormalities. Rate 65 bpm, KY 172 ms, QRS 84 ms, QTC 428 ms, tracing personally reviewe d by id LABS Labs: 05/11/2019 CMP: Sodium 133, potassium 3.5, chloride 98, glucose 216, BUN 6, creatinin e 0.7, GFR 80, AST 11, ALT 6, alk phos 78, total bili 0.3, albumin 3.4 magnesium 1.4, tropon in T <0.010 CBC: WBC 7.7, RBC 3.45, hemoglobin 8.4, hematocrit 26.6, platelet 361 Labs: 06/21/2019: Iron panel: Iron 11.4, TIBC 423, percent sat 2.7, transferrin 301.8, ferrit in 18.55 vitamin B12 559, folate >20, haptoglobin 283. CBC: WBC 6.8, RBC 4.15, hemoglobin 9 .3 hematocrit 30, platelets 407 Labs: 09/01/2019: Iron panel: Iron 21.63, TIBC 379, percent sat 5.7, transferrin 270. Hemog lobin A1c 5.5 (111). Ferritin 36.28. Vitamin B12 1276 folate >20, haptoglobin 315 CBC: WBC 7.7, RBC 4.62, hemoglobin 11.2, hematocrit 34.8, platelets 318 ASSESSMENT & PLAN: She was here today with her daughter to follow up on the event monitor, as well as her Echo. She has problems as detailed below. As discussed in HPI, for unknown reasons, her echo was never scheduled or performed, and I discussed this with Dr. Griffin today, and reordered it on an urgent basis in case there is wo rsening aortic stenosis or other valvular disorders contributing to her syncope. Her 1 month event monitor as detailed above and reported as sinus rhythm with an average rate of 64 bpm and a range of 46 210, and one episode of bradycardia 27 bpm for 15 seconds, and several episodes of SVT with the longest run at 126 bpm and the fastest at 151, but no atrial fib, no ventricular tachycardia, no pauses or blocks, and normal circadian rhythm, an d 1 patient triggered event reported as shortness of breath corresponded with sinus rhythm a t 82 bpm. I reviewed the tests results in detail with her and her daughter. She has not had any further episodes of syncope since she saw Dr. Hartley, and her labs perfo rmed since then show improved anemia, but she continues to struggle with balance issues, and uses a walker, and does have some shortness of breath with exertion I made no changes to cardiac medications today, and she should continue aspirin 81 mg da aissatou, atenolol 25 mg daily, losartan 50 mg daily and once daily OTC potassium 99 mg for Hyp okalemia, and magnesium oxide 400 mg twice daily for hypomagnesia. I will see her back in 6 weeks to follow-up on the results of her Echo. 1. Essential hypertension 2. Mixed hyperlipidemia 3. Systolic murmur 4. Syncope and collapse 5. Hypothyroidism, unspecified type 6. Dyspnea on exertion Orders Placed This Encounter Procedures ECHO Complete The following portions of the patient's history were personally reviewed by me and updated as appropriate: EKG tracings, other specialty provider and PCP notes,any Hospital admission and discharge summaries, any ER records , current and previous cardiac testing and procedure reports and d rodolfo, medication bottles brought to visit today personally reviewed by me. Allergies, current medications.labs Family history, past medical history, past social history, past surgical history. Problem list. This encounter was dictated with voice recognition software and may contain inadvertent rec ognition errors. Portions of this chart may have been copied from previous notes for continuity of care purp bari CAGLE [facility] Cardiology documented in t his encounter Plan of Treatment +--------+---------+ + + + | Date | Type | Specialty | Care Team | Description | +--------+---------+ + + + | 05/17/ | Office | Cardiology | Jeniffer Haines | | | 2020 | Visit | | [address] | | | | | | [address] | | | | | | [place] [address] | | | | | | [phone] | | | | | | | | +--------+---------+ + + + + + +--------+ + + | Name | Type | Priori | Associated Diagnoses | Order Schedule | | | | ty | | | + + +--------+ + + | ECHO Complete | Echocardiog | TORITO | Essential | Expected: | | | jennifer | | hypertension | 10/13/2019, Expires: | | | | | Systolic murmur | 10/12/2020 | | | | | Syncope and collapse | | | | | | Dyspnea on | | | | | | exertion | | + + +--------+ + + documented as of this encounter Visit Diagnoses + + | Diagnosis | + + | Essential hypertension - Primary Unspecified essential hypertension | + + | Mixed hyperlipidemia | + + | Systolic murmur Undiagnosed cardiac murmurs | + + | Syncope and collapse | + + | Hypothyroidism, unspecified type | + + | Dyspnea on exertion Other dyspnea and respiratory abnormality | + + documented in this encounter
--- OUTSIDE RECORDS SUMMARY | ~2020-02-28 | XMS | Encounter Summary ---
Demographics + + + | Address | [address] | | | [place] [address] | + + + | Home Phone | | + + + | Preferred Language | Unknown | + + + | Marital Status | | + + + | Episcopalian Affiliation | 1077 | + + + | Race | White | + + + | Ethnic Group | Not or | + + + Author + + + | Author | [facility] | | | and [place] | + + + | Organization | [facility] | | | and [...] Team Providers + +------+ + | Care Acid Cutter Name | Role | Phone | + [...] | y, lumbar | ST | ST CABLE, | | | | | region TFE | [place], [place] | [place] [address] | | | | | BiLat L3 ( | [address] | Phone: | | | | | 10-12 ) | Phone: | [phone] | | | | | Procedures | [phone] | Fax: | | | | | DC INJECT | Fax: | [phone] | | | | | ANES/STEROID | [phone] | | | | | | FORAMEN | | | | | | | LUMBAR/SACRA | | | | | | | L W IMG | | | | | | | GUIDE ,1 | | | | | | | LEVEL DC | | | | | | | [...] | +--------+ + + + + | 12/21/ | Hospital | [facility] | Sam Samuels | Spondylolisthesis at | | 2020 | Encounter | INTERVENTIONAL PAIN | [address] | L4-L5 level | | | | [address] | [place] [address] | (Primary Dx); Lumbar | | | | DR STOKES, | [phone] | radiculopathy; | | | | [place] [address] | | Spinal stenosis of | | | | [phone] | | lumbar region with | | | | | | neurogenic | | | | | | claudication | +--------+ + + + + Social [...] + + + | Blood Pressure | 188/79 | 12/22/2019 10:16 AM | | | | | PDT | | + + + + + | Pulse | 50 | 12/22/2019 10:16 AM | | | | | PDT | | + + + + + | Temperature | 37 C (98.6 F) | 12/22/2019 10:10 AM | | | | | PDT | | + + + + + | Respiratory Rate | 16 | 12/22/2019 10:16 AM | | | | | PDT | | + + + + + | Oxygen Saturation | 97% | 12/22/2019 10:16 AM | | | | | PDT [...] in this encounter Discharge Instructions Patient Instructions Alison Adam RN - 12/22/2019 9:39 AM PDTEpidural Steroid Inje ction Discharge Instructions Activity If you received medication [...] and his staff can be contacted at [phone]. If you are unable to contact your doctor or their associate, you may come to the Emergency Department at [facility]. These instructions have been explained to the [...] | | 0 | | | | MQ-Hxhotmzysp-Ecnvlv | mouth Daily. | | | | [...] as of this encounter Procedure Notes Sam Samuels, - 12/22/2019 9:37 AM PDTOPERATIVE REPORT NAME: Scarlet Murguia MR#: [id number] : 1935 DATE: 12/22/2019 SURGEON Sam Samuels D.O. PREOPERATIVE DIAGNOSIS M54.5 M54.16 POSTOPERATIVE DIAGNOSIS M54.5 M54.16 PROCEDURE A bilateral L3 transforaminal epidural steroid injection under fluoroscopic guidance [...] the chin of the Geo dog of L3 . Under AP fluoroscopy, the needle was advanced to the 6 o'clock position of the L3 pedicles respectively. The entire procedure was repeated on the left. After negative aspiration of CSF and blood and with no paresthesias, Isovue [address] dye was injected at each site with excellent outlining of the L3 nerve roots. Each site t hen underwent injection of 3 ml of block solution. Block solution contained 60 mg of triamci nolone and 4.5 ml of 0.25% Naropin. [place] were removed intact, skin was cleansed, and band ages were applied. Except for the local injection to the skin, all injections were done with extension tubing. The patient tolerated the procedure extremely well and was rolled to the supine position an d brought to the recovery room. The total fluoroscopy time was 32 seconds. Conscious sedation was provided by the nursing staff during the procedure under my supervis ion. Sedation time: 8 minutess Medications: 0 mg versed and 50 mcg fentanyl. PLAN 1. The patient was given a post-block instruction sheet and an appointment in the office in 4 weeks. 2. The patient is to continue with [...] hard and soft palate, upper portion of tonsi ls and uvula documented in this encounter Plan of Treatment +--------+---------+ + + + | Date | Type | Specialty | Care Team | Description | +--------+---------+ + + + | 05/17/ | Office | Cardiology | Jeniffer Haines | | | 2019 | Visit | | [address] | | | | | | [address] | | | | | | [place] [address] | | | | | | [phone] | | | | | | | | +--------+---------+ + + + + +---------+--------+ + + | Name | Type | Priori | Associated Diagnoses | Date/Time | | | | ty | | | + +---------+--------+ + + | FL C-Arm | Imaging | Routin | | 12/22/2019 10:06 AM | | | | e | [...] starting | | | | | | 12/22/2019 until | | | | | | 12/22/2019 | + +---------+--------+ + + documented as of this encounter Visit Diagnoses + + | Diagnosis | + + | Spondylolisthesis at L4-L5 level - Primary | + + | Lumbar radiculopathy Thoracic or lumbosacral neuritis or radiculitis, unspecified | + + | Spinal stenosis of lumbar region with neurogenic claudication Spinal stenosis, lumbar | | region, with neurogenic claudication | + + documented in this encounter Administered Medications + +--------+ +--------+------+------+ | Medication Order | MAR | Action | Dose | Rate | Site | | | Action | Date | | | | + +--------+ +--------+------+------+ | fentaNYL (PF) injection | Given | 12/22/19 | 50 mcg | | | | Intravenous, ONCE PRN, Starting | | 20 9:59 | | | | | Luly 12/22/19 at 0959 | | AM PDT | | | | + +--------+ +--------+------+------+ +---+---+ | | | +---+---+ + +-------+ +-------+---+---+ | sodium chloride (PF) 0.9% | Given | 12/22/19 | 5 mLs | | | | injection flush Intravenous, | | 20 9:59 | | | | | ONCE PRN, Starting Luly 12/22/19 at | | AM PDT | | | | | 0959 | | | | | | + +-------+ +-------+---+---+ +---+---+ | | | +---+---+ + +-------+ +-------+---+ + | triamcinolone acetonide | Given | 12/22/19 | 60 mg | | Other | | (KENALOG-40) 40 mg/mL injection | | 20 10:01 | | | (Comment | | ONCE PRN, Starting [facility] 12/22/19 at | | AM PDT | | | ) | | 1001, Intra-op | | | | | | + +-------+ +-------+---+ + +---+---+ | | | +---+---+ documented in this encounter"
--- OUTSIDE RECORDS SUMMARY | ~2020-02-28 | XMS | Encounter Summary ---
Demographics + + + | Address | [address] | | | [place] [address] | + + + | Home Phone [...] + + + | Author | [facility] | | | and [place] | + + + | Organization | [facility] | | | and [...] Providers + +------+ + | Care Medical Claims Representative Name | Role | Phone | + +------+ + | Susan Leos | PCP | | | PA-C | | | + +------+ + Reason for Visit + + + | Reason | Comments | + + + | New Patient | Needs ERCP | + + + Evaluate & Treat (Routine) +--------+--------+ + + + + | Status | Reason | Specialty | Diagnoses / | Referred By | Referred To | | | | | Procedures | Contact | Contact | +--------+--------+ + + + + | Closed | | Gastroenterol | Diagnoses | Frida, | [facility] | | | | ogy | CBD stone, | Kelby Phan, | Gastroenterol | | | | | needs ERCP | MD [address] | [address] | | | | [address] | [address] [place] | | | | | | [place], | [address] | | | | | | [place] | [place] | | | | | | [address] | [address] | | | | | | Phone: | Phone: | | | | | | [phone] | [phone] | | | | | | Fax: | Fax: | | | | | | [phone] | [phone] | +--------+--------+ + + + + Encounter Details +--------+---------+ + + + | Date | Type | Department | Care Team | Description | +--------+---------+ + + + | 09/17/ | Office | [facility] | Gregor Mccord MD | Choledocholithiasis | | 2017 | Visit | GASTROENTEROLOGY | [address], [place] | (Primary Dx) | | | | [address] [place] | [address] [place], [place] | | | | | [address] [place], [place] | [address] | | | | | [address] | | | | | | [phone] | | | +--------+---------+ + + + [...] + + + | Blood Pressure | 122/60 | 09/17/2016 4:02 PM | | | | | PDT | | + + + + + | Pulse | 68 | 09/17/2016 4:02 PM | | | | | PDT | | + + + + + | Temperature | 36.9 C (98.5 F) | 09/17/2016 4:02 PM | | | | | PDT | | + + + + + | Respiratory Rate | 16 | 09/17/2016 4:02 PM | | | | | PDT | | + + + + + | Oxygen Saturation | 97% | 09/17/2016 4:02 PM | | | | | PDT | | + + + + + | Inhaled Oxygen | - | - | | | Concentration | | | | + + + + + | Weight | 70.8 kg (156 lb) | 09/17/2016 4:02 PM | | | | | PDT | | + + + + + | Height | 170.2 cm (5' 7") | 09/17/2016 4:02 PM | | | | | PDT | | + + + + + | Body Mass Index | 24.43 | 09/17/2016 4:02 PM | | | | | PDT | | + + + + + documented in this encounter Progress Notes Gregor Mccord MD - 09/17/2016 5:08 PM PDT Subjective: Patient ID: Scarlet Murguia is a 80 y.o. female. HPI Comments: The patient is seen with respect to choledocholithiasis outside records are frankie talamantes The patient on August 07, 2016 underwent cholecystectomy initial laparoscopic which was s witched to an open procedure due to gangrenous gallbladder. She had approximately 2-4 weeks of feeling ill. She thought that she simply had gastritis or the flu. There were multiple stones within the gallbladder although the patient does not recall the size of the stones. In addition interoperative cholangiogram showed 1 stone in the distal common bile duct. Th e size of the common duct stone was not mentioned on operative report or radiographic report . The patient believes the size of the stone was smaller than her fingernail. The patient since the procedure has had no abdominal symptomatology whatsoever. She denies any nausea v omiting right upper quadrant pain shoulder pain or back pain. She denies any change in colo r of the stool or urine. The patient's weight is been stable. She denies anorexia change i n bowel pattern Filed Vitals: 09/17/16 1602 BP: 122/60 Pulse: 68 Temp: 36.9 C (98.5 F) Resp: 16 PainSc: 0 - No pain Allergies Allergen Reactions Erythromycin Hives and Rash Levofloxacin Hives and Rash Penicillins Hives and Rash Sulfa Antibiotics Hives and Rash Verapamil Hcl Er Hives and Rash Past Medical History Diagnosis Date Other intervertebral disc displacement, lumbar region HTN (hypertension) Hypothyroidism Skin cancer GERD (gastroesophageal reflux disease) Peripheral neuropathy (HCC) Macular degeneration Aortic stenosis DDD (degenerative disc disease), lumbar 02/04/2016 Spondylolisthesis at L4-L5 level 02/04/2016 Bilateral lumbar radiculopathy 02/04/2016 Cholelithiasis with cholecystitis Stress incontinence in female Hyperlipidemia Type 2 diabetes mellitus (HCC) Past Surgical History Procedure Laterality Date Tonsillectomy 1938 Tailbone 1973 broken, partial removal Cystocele repair 1971 Colonoscopy 2003; 2009; 2011 polyp's removed Partial hysterectomy 1971 Rectocele repair 1991 Cholecystectomy Family History Problem Relation Age of Onset Heart disease Brother Osteoporosis Mother Stroke Mother 95 Early Father TB Tuberculosis Father Early Brother 21 MVA Cancer Brother SKIN Heart disease Brother Muscle disease Daughter guillain barre syndrome No Known Problems Paternal Grandfather No Known Problems Paternal Grandmother No Known Problems Maternal Grandfather Stroke Maternal Grandmother No Known Problems Paternal Aunt Stroke Maternal Uncle 91 Stroke Maternal Uncle 96 Heart disease Maternal Uncle Diabetes Brother Social History Social History Marital Status: Spouse Name: N/A Number of Children: 3 Years of Education: 12 Occupational History [employer] RET[employer] Social History Main Topics Smoking status: Never Smoker Smokeless tobacco: Never Used Alcohol Use: 0.0 oz/week 0 Standard drinks or equivalent per week Comment: RARE Drug Use: No Sexual Activity: No Other Topics Concern None Social History Narrative Review of Systems Constitutional: Positive for fatigue. HENT: Positive for rhinorrhea. Negative for sneezing. Eyes: Positive for pain. Gastrointestinal: Positive for nausea and constipation. Musculoskeletal: Positive for back pain. Neurological: Positive for weakness and numbness. Psychiatric/Behavioral: The patient is nervous/anxious. All other systems reviewed and are negative. Objective: Physical Exam Constitutional: She is oriented to person, place, and time. She appears well-developed and well-nourished. No distress. HENT: Head: Normocephalic and atraumatic. Right Ear: External ear normal. Left Ear: External ear normal. Nose: Nose normal. Mouth/Throat: Oropharynx is clear and moist. No oropharyngeal exudate. Upper dentures Eyes: Conjunctivae and EOM are normal. Pupils are equal, round, and reactive to light. Righ t eye exhibits no discharge. Left eye exhibits no discharge. No scleral icterus. Neck: Normal range of motion. Neck supple. No JVD present. No tracheal deviation present. Cardiovascular: Normal rate, regular rhythm and intact distal pulses. Exam reveals no gall op and no friction rub. Murmur heard. Pulmonary/Chest: Effort normal and breath sounds normal. No stridor. No respiratory distres s. She has no wheezes. She has no rales. She exhibits no tenderness. Abdominal: Soft. Bowel sounds are normal. She exhibits no distension and no mass. There is no tenderness. There is no rebound and no guarding. Musculoskeletal: Normal range of motion. She exhibits no edema or tenderness. Lymphadenopathy: She has no cervical adenopathy. Neurological: She is alert and oriented to person, place, and time. No cranial nerve defici t. She exhibits normal muscle tone. Coordination normal. Skin: Skin is warm and dry. No rash noted. She is not diaphoretic. No erythema. No pallor. Psychiatric: She has a normal mood and affect. Her behavior is normal. Judgment and thought content normal. Nursing note and vitals reviewed. Assessment: Choledocholithiasis on interoperative cholangiogram size of stone unknown Other medical problems stable being addressed by primary care physician Plan: The patient was told that if the size of the stone was truly the size of her fingernail fernando t chances that it would pass spontaneously or has passed spontaneously is remote. However she has been asymptomatic with respect to the same. As such we will have the interoperative cholangiogram uploaded i[employer]ight to review. I suspect that the patient will be a candidate fo r ERCP; an extensive discussion was held with the patient and the patient's friend with resp ect to benefits and risks of ERCP and treatment for choledocholithiasis. The patient was gi tobi a patient information handout Pending radiographic review suspect scheduling for ERCP is appropriate documented in this enc ounter Plan of Treatment +--------+---------+ + + + | Date | Type | Specialty | Care Team | Description | +--------+---------+ + + + | 05/17/ | Office | Cardiology | Jeniffer Haines | | | 2019 | Visit | | [address] | | | | | | [address] | | | | | | [place] [address] | | | | | | [phone] | | | | | | | | +--------+---------+ + + + documented as of this encounter Visit Diagnoses + + | Diagnosis | + + | Choledocholithiasis - Primary Calculus of bile duct without mention of cholecystitis | | or obstruction | + + documented in this encounter
--- OUTSIDE RECORDS SUMMARY | ~2020-02-28 | XMS | Encounter Summary ---
Demographics + + + | Address | [address] | | | [place] [address] | + + + | Home Phone | | + + + | Preferred Language | Unknown | + + + | Marital Status | | + + + | Uatsdin Affiliation | 1077 | + + + [...] Team Providers + +------+ + | Care Taxi Servicer Name | Role | Phone | + +------+ + | Susan Leos | PCP | | | PA-C | | | + +------+ + Reason for Visit + + + | Reason | Comments | + + + | Numbness | bilateral feet | + + + Service/Procedure (Routine) +--------+--------+ + + + + | Status | Reason | Specialty | Diagnoses / | Referred By | Referred To | | | | | Procedures | Contact | Contact | +--------+--------+ + + + + | Closed | | Physical | Diagnoses | | [place], | | | | Medicine and | Disturbance | Ray, | MD Malcom | | | | Rehabilitatio | of skin | [place], | [address] | | | | n | sensation | PA-C [address] | | | | | Procedures | [address], | [place] | | | | | [place] MOTOR | [address] | [address] Phone: | | | | | &/SENS 1-2 | [place] | [phone] | | | | | NRV CNDJ | [address] | Fax: | | | | | PRECONF | Phone: | [phone] | | | | | ELTRODE LIMB | [phone] | | | | | | LA NEEDLE | Fax: | | | | | | EMG EA | [phone] | | | | | | EXTREMITY | | | | | | | W/PARASPINL | | | | | | | AREA LIMITED | | | | | | | LA EMG, | | | | | | | NEEDLE, TWO | | | | | | | LIMBS LA | | | | | | | MOTOR &/SENS | | | | | | | 3-4 NRV | | | | | | | CNDJ PRECONF | | | | | | | ELTRODE | | | | | | | LIMB LA | | | | | | | MOTOR &/SENS | | | | | | | 5-6 NRV | | | | | | | CNDJ PRECONF | | | | | | | ELTRODE | | | | | | | LIMB LA | | | | | | | NEEDLE EMG | | | | | | | EA EXTREMTY | | | | | | | W/PARASPINL | | | | | | | AREA | | | | | | | COMPLETE LA | | | | | | | NEEDLE EMG | | | | | | | EA EXTREMITY | | | | | | | W/PARASPINL | | | | | | | AREA | | | | | | | LIMITED BLE | | | | | | | EMG | | | +--------+--------+ + + + + Encounter Details +--------+ + + + + | Date | Type | Department | Care Team | Description | +--------+ + + + + | 02/24/ | Procedure | [facility] | Malcom Mojica, | Peripheral | | 2016 | visit | PHYSIATRY [address] | [address] | polyneuropathy | | | | [address] | [address] [place], | (Primary Dx); Hyper | | | | [place] | [place] [address] | reflexia | | | | [address] | [phone] | | | | | [phone] | | | +--------+ + + + [...] + + + | Blood Pressure | 141/75 | 02/25/2016 1:47 PM | | | | | PDT | | + + + + + | Pulse | 59 | 02/25/2016 1:47 PM | | | | | PDT [...] Weight | 76.7 kg (169 lb) | 02/25/2016 1:47 PM | | | | | PDT | | + + + + + | Height | 170.2 cm (5' 7") | 02/25/2016 1:47 PM | | | | | PDT | | + + + + + | Body Mass Index | 26.47 | 02/25/2016 1:47 PM | | | | | PDT | | + + + + + documented in this encounter Procedure Notes Malcom Mojica MD - 02/26/2016 2:10 PM PDTAssociated Order(s): EMG STUDYProcedure(s) : EMG STUDYPre-Procedure Diagnose(s): Peripheral polyneuropathyPost-Procedure Diagnose(s): P olyneuropathy; Hyper reflexia [facility] Musculoskeletal, Sports and Spine, Physiatry [address] [address] Test Date: 02/25/2016 Patient Name: Scarlet Murguia : 1935 Physician: Tomás Mojica MD MR #: [id number] Sex: Female Referring Physician: Aurora Bell PA-C HISTORY: Mr. Murguia is a 80 year-old woman with a history of diet controlled DM who was referred to t [facility] EMG lab to evaluate her bilateral lower extremity numbness. Patient reports that the sym ptoms have been present for some time, though they have been progressing, now affecting her balance. She had some sort of testing done by a human resource professional and she was diagnosed with a per ipheral neuropathy around 3 years ago, but she does not recall exactly what the testing was. On exam she has absent vibration sense at the bilateral toes/ankles, and mildly reduced at knees. Proprioception reduced at bilateral toes. Strength is normal. She is hyper-reflex ic in the bilateral knees, and bilateral upper extremities, arnold s is negative bilatera lly, Babinski negative bilaterally. Patient also endorses a 3 year history of urinary incon tinence. Anti Sensory Summary Table Site NR Peak (ms) Norm Peak (ms) P-T Amp (V) Norm P-T Amp Site1 Site2 Delta-P (ms) Dist (cm) Turner (m/s) Norm Turner (m/s) Left Radial Anti Sensory (Base 1st Digit) Wrist 2.0 <3.1 31.5 Wrist Base 1st Digit 2.0 0.0 Left Sural Anti Sensory (Lat Mall) Calf *NR <4.0 >5.0 Calf Lat Mall 14.0 >35 Right Sural Anti Sensory (Lat Mall) Calf *NR <4.0 >5.0 Calf Lat Mall 14.0 >35 Motor Summary Table Site NR Onset (ms) Norm Onset (ms) O-P Amp (mV) Norm O-P Amp Site1 Site2 Delta-0 (ms) Dist (cm) Turner (m/s) Norm Turner (m/s) Left Peroneal Motor (Ext Dig Brev) Ankle 5.1 <6.1 *0.2 >2.5 B Fib Ankle 8.2 32.0 39 >38 B Fib 13.3 0.2 Poplt B Fib 2.4 10.0 42 >40 Poplt 15.7 0.2 Left Tibial Motor (Abd Castañeda Brev) Ankle *6.7 <6.1 *0.4 >3.0 Knee Ankle 10.8 39.0 36 >35 Knee 17.5 0.2 Right Tibial Motor (Abd Castañeda Brev) Ankle 4.5 <6.1 *0.8 >3.0 Knee Ankle 39.0 >35 Knee *NR EMG Side Muscle Nerve Root Ins Act Fibs Psw Amp Dur Poly Recrt Int Pat Comment Left VastusMed Femoral L2-4 Nml Nml Nml Nml Nml 0 Nml Nml Left AntTibialis Dp Br Peron L4-5 Nml Nml Nml Nml Nml 0 Nml Nml Left Gastroc Tibial S1-2 *Incr *1+ Nml Nml Nml 0 Nml Nml Left Peroneus Long Sup Br Peron L5-S1 Nml Nml Nml Nml Nml 0 Nml Nml Left PostTibialis Tibial L5, S1 *Incr *1+ *1+ Nml *>12ms 0 Nml Nml Right AntTibialis Dp Br Peron L4-5 Nml Nml Nml Nml Nml 0 Nml Nml Right Gastroc Tibial S1-2 *Incr *1+ Nml Nml *>12ms 0 Nml Nml Left BicepsFemS Peron L5-S1 Nml Nml Nml Nml Nml 0 Nml Nml NCV FINDINGS: Evaluation of the Left peroneal motor nerve showed reduced amplitude. The Left tibial tangela r nerve showed prolonged distal onset latency and reduced amplitude. The Right tibial motor nerve showed no response (Knee) and reduced amplitude. The Left sural sensory and the Righ t sural sensory nerves showed no response (Calf). All remaining nerves (as indicated in the following tables) were within normal limits. EMG FINDINGS: 1. Monopolar needle EMG of the selected muscles in the left lower extremity demonstrated in creased insertional activity with positive sharp waves and fibrillations in the tibialis pos terior and fibrillations in the medial head of gastrocnemius. On activation there was mack l recruitment of increased duration motor units in the tibilais posterior; and normal recrui tment of normal morphology motor units in all other muscles IMPRESSION: This is an abnormal study. There is electrodiagnostic evidence of a severe sensorimotor po lyneuropathy with predominantly axonal changes. There is no electrodiagnostic evidence of a right or left lumbosacral radiculopathy. Clinical correlation/comments: There is discordance between the patient s study of a severe length dependent polyneuyrop athy and hyper-reflexia in her upper and lower extremities. Which is suggestive of either a metabolic or anatomic myelopathy. And although the full history is not clear it seems that the progression of her neuropathy is faster than would be expected for a diet controlled di abetes (though that is still possible). To evaluate her peripheral neuropathy and hyper-ref lexia I will send some labs: SPEP, Cupper, vit B12, vit B1, vit B6, MMA, TSH, Hep penel. HT LV1/2 testing was not sent as the patient has not had any recent international travel. If t he B12, MMA, and copper are normal I will consider ordering an MRI C-spine. Thank you for allowing me to perform neurodiagnostic testing on your patient. If you have a ny further questions or comments, please do not hesitate to call. Malcom Mojica MD Diplomate, [place] Board of Physical Medicine and Rehabilitation. documented in thi s encounter Plan of Treatment +--------+---------+ + + + | Date | Type | Specialty | Care Team | Description | +--------+---------+ + + + | 05/17/ | Office | Cardiology | Jeniffer Haines | | | 2019 | Visit | | [address] | | | | | | [address] | | | | | | [place] [address] | | | | | | [phone] | | | | | | | | +--------+---------+ + + + documented as of this encounter Procedures + +--------+ + + + | Procedure Name | Priori | Date/Time | Associated Diagnosis | Comments | | | ty | | | | + +--------+ + + + | EMG STUDY | Routin | 02/26/2016 | Peripheral | Results for this | | | e | 2:11 PM | polyneuropathy | procedure are in the | | | | PDT | | results section. | + +--------+ + + + documented in this encounter Results EMG Study (02/26/2016 2:11 PM PDT) + + + | Narrative | Performed At | + + + | Malcom Mojica MD 02/26/2016 14:11 [facility] | | | [facility] Musculoskeletal, Sports and Spine, Physiatry [place] | | [facility] [address] [place] [address] Ph: | | | Test Date: 02/25/2016 | | | Patient Name: Scarlet Murguia : 1935 Physician: Tomás Mojica, | | | MR #: [id number] Sex: Female Referring Physician: Aurora | | | KYA Bell HISTORY: Mr. Murguia is a 80 year-old woman with | | | a history of diet controlled DM who was referred to the EMG lab to | | | evaluate her bilateral lower extremity numbness. Patient reports | | | that the symptoms have been present for some time, though they have | | | been progressing, now affecting her balance. She had some sort of | | | testing done by a human resource professional and she was diagnosed with a | | | peripheral neuropathy around 3 years ago, but she does not recall | | | exactly what the testing was. On exam she has absent vibration | | | sense at the bilateral toes/ankles, and mildly reduced at knees. | | | Proprioception reduced at bilateral toes. Strength is normal. | | | She is hyper-reflexic in the bilateral knees, and bilateral upper | | | extremities, arnold | | | | | | s is negative bilaterally, Babinski negative bilaterally. Patient | | | also endorses a 3 year history of urinary incontinence. Anti | | | Sensory Summary Table Site NR Peak (ms) Norm Peak (ms) P-T Amp ( V) | | | Norm P-T Amp Site1 Site2 Delta-P (ms) Dist (cm) Turner (m/s) Norm Turner | | | (m/s) Left Radial Anti Sensory (Base 1st Digit) Wrist 2.0 | | | <3.1 31.5 Wrist Base 1st Digit 2.0 0.0 Left Sural Anti Sensory | | | (Lat Mall) Calf *NR <4.0 >5.0 Calf Lat Mall 14.0 >35 Right | | | Sural Anti Sensory (Lat Mall) Calf *NR <4.0 >5.0 Calf Lat Mall | | | 14.0 >35 Motor Summary Table Site NR Onset (ms) Norm Onset | | | (ms) O-P Amp (mV) Norm O-P Amp Site1 Site2 Delta-0 (ms) Dist (cm) | | | Turner (m/s) Norm Turner (m/s) Left Peroneal Motor (Ext Dig Brev) Ankle | | | 5.1 <6.1 *0.2 >2.5 B Fib Ankle 8.2 32.0 39 >38 B Fib 13.3 | | | 0.2 Poplt B Fib 2.4 10.0 42 >40 Poplt 15.7 0.2 | | | Left Tibial Motor (Abd Castañeda Brev) Ankle *6.7 <6.1 *0.4 >3.0 | | | Knee Ankle 10.8 39.0 36 >35 Knee 17.5 0.2 Right | | | Tibial Motor (Abd Castañeda Brev) Ankle 4.5 <6.1 *0.8 >3.0 Knee | | | Ankle 39.0 >35 Knee *NR EMG Side Muscle | | | Nerve Root Ins Act Fibs Psw Amp Dur Poly Recrt Int Pat Comment | | | Left VastusMed Femoral L2-4 Nml Nml Nml Nml Nml 0 Nml Nml Left | | | AntTibialis Dp Br Peron L4-5 Nml Nml Nml Nml Nml 0 Nml Nml Left | | | Gastroc Tibial S1-2 *Incr *1+ Nml Nml Nml 0 Nml Nml Left Peroneus | | | Long Sup Br Peron L5-S1 Nml Nml Nml Nml Nml 0 Nml Nml Left | | | PostTibialis Tibial L5, S1 *Incr *1+ *1+ Nml *>12ms 0 Nml Nml | | | Right AntTibialis Dp Br Peron L4-5 Nml Nml Nml Nml Nml 0 Nml Nml | | | Right Gastroc Tibial S1-2 *Incr *1+ Nml Nml *>12ms 0 Nml Nml | | | Left BicepsFemS Peron L5-S1 Nml Nml Nml Nml Nml 0 Nml Nml | | | NCV FINDINGS: Evaluation of the Left peroneal motor nerve showed | | | reduced amplitude. The Left tibial motor nerve showed prolonged | | | distal onset latency and reduced amplitude. The Right tibial motor | | | nerve showed no response (Knee) and reduced amplitude. The Left | | | sural sensory and the Right sural sensory nerves showed no response | | | (Calf). All remaining nerves (as indicated in the following | | | tables) were within normal limits. EMG FINDINGS: 1. Monopolar | | | needle EMG of the selected muscles in the left lower extremity | | | demonstrated increased insertional activity with positive sharp | | | waves and fibrillations in the tibialis posterior and fibrillations | | | in the medial head of gastrocnemius. On activation there was | | | normal recruitment of increased duration motor units in the tibilais | | | posterior; and normal recruitment of normal morphology motor units | | | in all other muscles IMPRESSION: This is an abnormal study. | | | There is electrodiagnostic evidence of a severe sensorimotor | | | polyneuropathy with predominantly axonal changes. There is no | | | electrodiagnostic evidence of a right or left lumbosacral | | | radiculopathy. Clinical correlation/comments: There is | | | discordance between the patient | | | | | | s study of a severe length dependent polyneuyropathy and | | | hyper-reflexia in her upper and lower extremities. Which is | | | suggestive of either a metabolic or anatomic myelopathy. And | | | although the full history is not clear it seems that the progression | | | of her neuropathy is faster than would be expected for a diet | | | controlled diabetes (though that is still possible). To evaluate | | | her peripheral neuropathy and hyper-reflexia I will send some labs: | | | SPEP, Cupper, vit B12, vit B1, vit B6, MMA, TSH, Hep penel. | | | HTLV1/2 testing was not sent as the patient has not had any recent | | | international travel. If the B12, MMA, and copper are normal I | | | will consider ordering an MRI C-spine. Thank you for allowing | | | me to perform neurodiagnostic testing on your patient. If you have | | | any further questions or comments, please do not hesitate to call. | | | Malcom Mojica MD Diplomate, | | | [place] [employer] and Rehabilitation. | | | | | + + + TSH (02/25/2016 3:39 PM PDT) + + [...] [facility]. | [address] | [place] | [phone] | | [facility] | | [address] | | | - LABORATORY | | [...] [place] | | | | | | [address] | | | | + + + [...] [facility] | [address] | [place] [address] | [phone] | + + + + + Protein Electrophoresis, Serum (02/25/2016 3:39 PM PDT) + +-------+ + + + | Component | Value | Ref Range | Performed | Pathologist | | | | | At | Signature | + +-------+ + + + | Total | 6.4 | 6.0 - 7.8 g/dL | [facility] | | | Protein | | | [facility] | | | | | | [facility] | | | | | | C[facility] - | | | | | | LABORATORY | | + +-------+ + + + | ELP Albumin | 4.2 | 3.6 - 5.7 g/dL | [facility] | | | | | | [facility] | | | | | | MEDICAL | | | | | | CENTER - | | | | | | LABORATORY | | + +-------+ + + + | ELP Alpha 1 | 0.1 | 0.1 - 0.2 g/dL | [facility] | | | Globulin | | | [facility] | | | | | | MEDICAL | | | | | | CENTER - | | | | | | LABORATORY | | + +-------+ + + + | ELP Alpha 2 | 0.7 | 0.4 - 0.9 g/dL | [facility] | | | Globulin | | | [facility] | | | | | | MEDICAL | | | | | | CENTER - | | | | | | LABORATORY | | + +-------+ + + + | ELP Beta 1 | 0.5 | 0.3 - 0.7 g/dL | [facility] | | | Globulin | | | [facility] | | | | | | MEDICAL | | | | | | CENTER - | | | | | | LABORATORY | | + +-------+ + + + | ELP Beta 2 | 0.3 | 0.1 - 0.4 g/dL | [facility] | | | Globulin | | | [facility] | | | | | | MEDICAL | | | | | | CENTER - | | | | | | LABORATORY | | + +-------+ + + + | ELP Gamma | 0.6 | 0.4 - 1.2 g/dL | [facility] | | | Globulin | | | [facility] | | | | | | MEDICAL | | | | | | CENTER - | | | | | | LABORATORY | | + +-------+ + + + | ELP Albumin | 64.9 | % | [facility] | | | % | | | [facility] | | | | | | MEDICAL | | | | | | CENTER - | | | | | | LABORATORY | | + +-------+ + + + | Albumin/Zoraida | 1.9 | | [facility] | | | bulin Ratio | | | [facility] | | | | | | MEDICAL | | | | | | CENTER - | | | | | | LABORATORY | | + +-------+ + + + | ELP Alpha 1 | 2.1 | % | [facility] | | | Globulin % | | | [facility] | | | | | | MEDICAL | | | | | | CENTER - | | | | | | LABORATORY | | + +-------+ + + + | ELP Alpha 2 | 10.3 | % | [facility] | | | Globulin % | | | [facility] | | | | | | MEDICAL | | | | | | CENTER - | | | | | | LABORATORY | | + +-------+ + + + | ELP Beta 1 | 8.5 | % | [facility] | | | Globulin % | | | [facility] | | | | | | [facility]ICAL | | | | | | CENTER - | | | | | | LABORATORY | | + +-------+ + + + | ELP Beta 2 | 4.5 | % | [facility] | | | Globulin % | | | [facility] | | | | | | MEDICAL | | | | | | CENTER - | | | | | | LABORATORY | | + +-------+ + + + | ELP Gamma | 9.7 | % | [facility] | | | Globulin % | | | [facility] | | | | | | MEDICAL | | | | | | CENTER - | | | | | | LABORATORY | | + +-------+ + + + + + | Specimen | + + | Blood | + + + + + | Narrative | Performed At | + + + | Normal | [facility] | | Vincent Sanchez MD02-27-16 | [facility] | |02-27-16 | [facility] | | | - LABORATORY | + + + + + + + + | Performing | Address | City/State/Zipcode | Phone Number | | Organization | | | | + + + + + | [facility] | [address] | [place], [place] | [phone] | | [facility] | | [address] | | | - LABORATORY | | [...] [place] | | | | | | [address] | | | | + + + [...] [address] | [place] [address] | [phone] | + + + + + Methylmalonic [...] | LAB [facility] | | | | [address], [place] | | | | | | [address] | | | | + + + [...] [address] | [place] [address] | [phone] | + + + + + Vitamin B-12 (02/25/2016 3:39 PM PDT) + + + + + + | Component | Value | Ref Range | Performed | Pathologist | | | | | At | Signature | + + + + + + | VITAMIN | 283Comment: DEFICIENT: | 180 - 914 pg/mL | [facility] | | | B-12 | <145 | [...] [facility]. | [address] | [place] | [phone] | | [facility] | | [address] | | | - LABORATORY | | | | + + + + + documented in this encounter Visit Diagnoses + + | Diagnosis | + + | Peripheral polyneuropathy - Primary Unspecified hereditary and idiopathic peripheral | | neuropathy | + + | Hyper reflexia Abnormal reflex | + + documented in this encounter
--- OUTSIDE RECORDS SUMMARY | ~2020-02-28 | XMS | Encounter Summary ---
Demographics + + + | Address | [address] | | | [place] [address] | + + + | Home Phone | | + + + | Preferred Language | Unknown | + + + | Marital Status | | + + + | Yarsani Affiliation | 1077 | + + + | Race | White | + + + | Ethnic Group | Not or | + + + Author + + + | Author | Located Within [facility] | | | and [place] | + + + | Organization | Located Within [facility] | | [...] Team Providers + +------+ + | Care Fire Medic Name | Role | Phone | + [...] | | | | region, with | [place], | [facility] [place] | | | | | neurogenic | [place] [address] | [facility], | | | | | claudication | Phone: | [place] | | | | | | [phone] | [address] | | | | | | Fax: | Phone: | | | | | | [phone] | [phone] | | | | | | | Fax: | | | | | | | [phone] | + + + + + + + Encounter Details +--------+---------+ + + + | Date | Type | Department | Care Team | Description | +--------+---------+ + + + | 11/21/ | Office | [facility] | Sam Samuels DO | Spondylolisthesis at | | 2020 | Visit | [facility] | [address] | L4-L5 level | | | | [address] | [place] [address] | (Primary Dx); Lumbar | | | | [address] [place], | [phone] | radiculopathy; | | | | [place] [address] | | Spinal stenosis of | | | | [phone] | | lumbar region with | | [...] Samuels DO - 11/22/2019 1:00 PM PDT [facility]: Interventional Pain Management 11/22/2019November Blade [...] disease), lumbar 02/04/2016 Diabetes type 2, controlled ([facility]) DVT (deep venous thrombosis) ([facility]) 03/2019 post hip replacement Full dentures upper & lower GERD (gastroesophageal reflux disease) Heart murmur HTN (hypertension) Hyperlipidemia Hypothyroidism Macular degeneration Other intervertebral disc displacement, lumbar region Peripheral neuropathy Pneumonia 2005 Pulmonary emboli ([facility]) 03/2019 after hip replacement Skin cancer Spondylolisthesis at L4-L5 level 02/04/2016 Stress incontinence in female Type 2 diabetes mellitus ([facility]) Past Surgical History: Procedure Laterality Date CHOLECYSTECTOMY COLONOSCOPY 2003; 2009; 2011 polyp's removed CYSTOCELE REPAIR 1971 ERCP N/A 09/26/2016 Procedure: ERCP; Surgeon: Gregor Mccord MD; Location: [facility] MEDICAL PROCEDURE UNIT ERCP N/A 10/14/2016 Procedure: ERCP w/ stent pull; Surgeon: Gregor Mccord MD; Location: [facility] MEDICAL PROCEDU RE UNIT HARDWARE REMOVAL Left 03/29/2019 Procedure: REMOVE HARDWARE LOWER EXTREMITY-HIP; Surgeon: Mark [place] MD; Location : [facility] MAIN OR PARTIAL HYSTERECTOMY 1971 RECTOCELE REPAIR 1991 TAILBONE 1973 broken, partial removal TONSILLECTOMY 1938 TOTAL HIP ARTHROPLASTY Left 03/29/2019 Procedure: Posterior Total Hip Arthroplasty; Surgeon: Mark [place] MD; Location: [facility] MAIN OR Allergies Allergen Reactions Erythromycin Hives [...] Twice daily as needed. 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 The possibility of "s ound alike" electronic gluer errors, and additions, or deletions may occur. If there is any que stion with respect to clarity of the message being conveyed, please contact me directly for clarification. documente d in this encounter Plan of Treatment +--------+---------+ + + + | Date | Type | Specialty | Care Team | Description | +--------+---------+ + + + | 05/17/ | Office | Cardiology | Jeniffer Haines | | | 2019 | Visit | | [address] | | | | | | [address] | | | | | | [place] [address] | | | | | | [phone] | | | | | | | [...] and facet arthropathy, as above. Signed by: Rick, | | | Roman Pool Sign Date/Time: [...]
--- OUTSIDE RECORDS SUMMARY | ~2020-02-28 | XMS | Encounter Summary ---
Demographics + + + | Address | [address] | | | [place] [address] | + + + | Home Phone [...] + + + | Author | [facility] | | | and [place] | + + + | Organization | [facility] | | [...] Team Providers + +------+ + | Care Flap Curer Name | Role | Phone | + +------+ + | Susan Leos | PCP | | | PA-C | | | + +------+ + Encounter Details +--------+ + + + + | Date | Type | Department | Care Team | Description | +--------+ + + + + | 03/21/ | Preadmit | [facility] | [place] | | | 2019 | Visit | [facility] | MD [place]ain[place] [address] | | | | | CLINIC [address] | | | | | BLVD [place], [place] | [place] [address] | | | | | [address] | [phone] | | | | | [phone] | | | +--------+ + + + [...] + | Blood Pressure | 192/58 | 03/21/2019 3:34 PM | | | | | PDT | | + + + + + | Pulse | 61 | 03/21/2019 3:34 PM | | | | | PDT | | + + + + + | Temperature | - | - | | + + + + + | Respiratory Rate | - | - | | + + + + + | Oxygen Saturation | 99% | 03/21/2019 3:34 PM | | | | | PDT | | + + + + + | Inhaled Oxygen | - | - | | | Concentration | | | | + + + + + | Weight | 75 kg (165 lb 5.5 | 03/21/2019 3:34 PM | | | | oz) | PDT | | + + + + + | Height | 167.6 cm (5' 6") | 03/21/2019 3:34 PM | | | | | PDT | | + + + + + | Body Mass Index | 26.69 | 03/21/2019 3:34 PM | | | | | PDT [...] were given in the hospital. Wear them [id number] d ay for3 to 4weeks. To relieve discomfort at night, get up and move around. Tell all your healthcare providers including your dentist about your artificial join t before any procedure. You mayneed to take antibiotics before dental work and other medic al procedures to reduce the risk of infection. Arrangeto have your lobito removed [id number] after surgery. The lobito were u sed [...] ur hip joint. Use a raisedtoilet seat [id number] after surgery. Ask your healthcare provider if [...] put on socks and shoes. And don't berry picker machine operator items from the floor. Use a cane, [...] draining from the incision Date Last Reviewed: 10/13/201719993763-3032 [employer]. [address] [place] [address]. All righ ts reserved. This information is not intended as a substitute for professional medical care. Always follow your healthcare professional's instructions. Outpatient Medications Marked as Taking for the 03/21/19 encounter (Preadmit Visit) with [facility] ROOM 2 Medication Sig Instructions acetaminophen (TYLENOL) [...] TAKE day of proced ure Multiple Vitamins-Minerals ([facility]) MISC Take by mouth. DO NOT TAKE day of procedure Firth-3 Fatty Acids (PRO NUTRIENTS OMEGA 3 PO) [...] ay of procedure documented in this encounter Miscellaneous Notes Preadmit Clinic Note - Aurora Deal RN - 03/21/2019 3:00 PM PDTPt meets METS score of 4 per AHA guidelines. Denies sob and chest pain. Pt states she walks daily. BP elevated. Pt states it is always elevated at the hospital.Advised to check daily and contact primary if consistently elevated. Pt states she saw Dr Paz in [place] for cardiac clearance in February and was cleared for surgery. Will attempt to get records prior to surgery. Patient receive d chlorahexidine solution 4% and instructions for use. Patient instructed to wash hands freq uently and watch for signs and symptoms of infection such as excessive redness, swelling, fe belen and purulent drainage from incision site. Patient verbalizes understanding. documented in this e ncounter Plan of Treatment +--------+---------+ + + + | Date | Type | Specialty | Care Team | Description | +--------+---------+ + + + | 05/17/ | Office | Cardiology | Jeniffer Haines | | | 2019 | Visit | | [address] | | | | | | [address] | | | | | | [place] [address] | | | | | | [phone] | | | | | | | [...] Results for this | | | | 3:37 PM | | procedure are in the | | | | PDT | | results section. | + +--------+ + + + | TYPE AND SCREEN | [facility] | 03/21/2019 | | Results for this | | | | 3:37 PM | | procedure are in the | | | | PDT | | results section. | + +--------+ + + + | CBC WITH | [place] | 03/21/2019 | | Results for this | | DIFFERENTIAL | | 3:33 PM | | procedure are in the | | | | PDT | | results section. | + +--------+ + + + | HEMOGLOBIN A1C | [facility] | 03/21/2019 | | Results for this | | | | 3:33 PM | | procedure are in the | | | | PDT | | results section. | + +--------+ + + + | BASIC METABOLIC | [place] | 03/21/2019 | | Results for this | | PANEL | | 3:33 PM | | procedure are in the | | | | PDT | | results section. | + +--------+ + + + | ECG 12 LEAD | Timed | 03/21/2019 | | Results for this | | | | 3:14 PM | | procedure are in the | | | | PDT | | results section. | + +--------+ + + + documented in this encounter Results Type and Screen (03/21/2019 3:37 PM PDT) + + + + + [...] | [facility] | | | Screen | [facility];[address] | | LABORATORY | | | | [address];[place] [address] | | | | + + + + + + + + | Specimen | + + | Blood | + + + + + + + | Performing | Address | City/State/Zipcode | Phone Number | | Organization | | | | + + + + + | [facility] | [address] | [place] [address] | [phone] | + + + + + MRSA NAAT (03/21/2019 3:37 PM PDT) + + + + + [...] JETHRO | | | | performed at [facility];[address] | | LABORATORY | | | | [address];[place] | | | | | | [address] | | | | + + + + + + + + | Specimen | + + | Tissue - Both | | anterior nares (body | | structure) | + + + + + + + | Performing | Address | City/State/Zipcode | Phone Number | | Organization | | | | + + + + + | [facility] | [address] | [place] [address] | [phone] | + + + + + Hemoglobin A1C (03/21/2019 3:33 PM PDT) + + + + + + | Component | Value | Ref Range | Performed | Pathologist | | | | | At | Signature | + + + + + + | Hemoglobin | 5.8Comment: HbA1c method | 4.0 - 6.0 % | [facility] | | | A1c | is certified by [facility] | | LABORATORY | | | | and traceable to the | | | | | | DCCT reference | | | | | | method.ADA guidelines | | | | | | indicate: | | | | | | Prediabetes: 5.7 - 6.4 | | | | | | Diabetes: >6.4 | | | | | | Glycemic control for | | | | | | adults with diabetes: | | | | | | <7.0Effective 06/30/2018: | | | | | | Note New Method | | | | + + + + + + | Estimated | 120Comment: Estimated | <154 mg/dL | [facility] | | | Average | Average Glucose | | LABORATORY | | | Glucose | calculated from | | | | | | hemoglobin A1c by use of | | | | | | the ADArecommended | | | | | | formula.Testing | | | | | | performed at [facility], [address] | | | | | | [facility], | | | | | | [place] [address] | | | | + + + + + + + + | Specimen | + + | Blood | + + + + + + + | Performing | Address | City/State/Zipcode | Phone Number | | Organization | | | | + + + + + | [facility] | [address] | [place] [address] | [phone] | + + + + + CBC with Differential (03/21/2019 3:33 PM PDT) + + + + + + | Component | Value | Ref Range | Performed | Pathologist | | | | | At | Signature | + + + + + + | WBC | 7.06 | 3.80 - 11.00 | [facility] | | | | | K/uL | LABORATORY | | + + + + + + | Red Blood | 4.69 | 3.70 - 5.10 | [facility] | | | Cells | | M/uL | LABORATORY | | [...] | | | | | performed at [facility] | | | | | | [address];[place], [place] | | | | | | [address] | | | | + + + + + + + + | Specimen | + + | Blood | + + + + + + + | Performing | Address | City/State/Zipcode | Phone Number | | Organization | | | | + + + + + | [facility] | [address] | [place] [address] | [phone] | + + + + + Basic Metabolic Panel (03/21/2019 3:33 PM PDT) + + + + + [...] | | | | | performed at [facility] | | | | | | [facility];[place], [place] | | | | | | [address] | | | | + + + + + + + + | Specimen | + + | Blood | + + + + + + + | Performing | Address | City/State/Zipcode | Phone Number | | Organization | | | | + + + + + | [facility] | [address] | [place] [address] | [phone] | + + + + + ECG 12 lead (03/21/2019 3:14 PM PDT) + + + + + [...]
--- OUTSIDE RECORDS SUMMARY | ~2020-02-28 | XMS | Encounter Summary ---
Demographics + + + | Address | [address] | | | [place] [address] | + + + | Home Phone | | + + + | Preferred Language | Unknown | + + + | Marital Status | | + + + | Sikhism Affiliation | 1077 | + + + | Race | White | + + + | Ethnic Group | Not or | + + + Author + + + | Author | [facility] | | | and [place] | + + + | Organization | [facility] | | | [...] Team Providers + +------+ + | Care Special Ed Assistant Name | Role | Phone | + [...] | | | | neurogenic | [place] [address] | [address] | | | | | claudication | Phone: | Phone: | | | | | Procedures | [phone] | [phone] | | | | | MRI Lumbar | Fax: | Fax: | | | | | Spine wo | [phone] | [phone] | | | | | Contrast | [...] | | | [facility] | [address], | [place], [place] | | | | | Procedures | [place] | [address] Phone: | | | | | NEW PATIENT | [address] | [phone] | | | | | | Phone: | Fax: | | | | | | [phone] | [phone] | | | | | | Fax: | | | | | | | [phone] | | + +--------+ + + + [...] region, with | | | | BLVD [place], [place] | [address] | neurogenic | | | | [address] | [place] [address] | claudication | | | | [phone] | [phone] | (Primary Dx); Status | | | [...] evaluation, if indicated, near her home in [place]. Return if symptoms worsen or fail to [...] [address] | | | | | | [place] [address] | | | | | | [phone] | | | | | | | [...]
--- OUTSIDE RECORDS SUMMARY | ~2020-02-28 | XMS | Encounter Summary ---
Demographics + + + | Address | [address] | | | [place] [address] | + + + | Home Phone [...] Team Providers + +------+ + | Care Frit Mixer And Burner Name | Role | Phone | + [...] | | | | | | | SD ERCP DX | | | | | [...] + + | 09/26/ | Hospital | [facility] | Gregor Mccord MD | Choledocholithiasis | | 2017 | Encounter | [facility] INTRA OP | [address], [place] | (Primary Dx) | | | | [address] | [address] | | | | | [place] | [address] | | | | | [address] | | | | | | [phone] | | | +--------+ + + + [...] or severe belly or abdominal pain Fever bfgus590S (37.7C) or chills Upset stomach (nausea) and vomiting Black or tarry stools Date Last Reviewed: 11/25/201419995942-3580 [employer]. [address] [place] [address]. All righ ts reserved. 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 Avoiding fatty foods such as [place], hamburgers, carrera, ham and pork products, wi [...] by Gregor Mccord MD at 1:21 PM [facility] Ana Moon Chaplain - 09/26/2016 12:12 PM PDTPro blem: Patient Care Overview (Adult) Goal: Care Team Goals & Evaluation PROBLEM-RELATED GOALS: STRATEGY TO ACHIEVE GOALS: RESTRAINT-RELATED GOALS: STRATEGIES TO ACHIEVE RESTRAINT GOALS: Spiritual Care Scarlet Murguia is a 80 y.o. female who is admitted for Common bile duct stone (K80.50). Spiritual Evaluation: Ratchet Setter received an electronic referral that the patient had requ ested prayer before surgery. Scarlet was waiting alone lying on the gurney. She cheerfully we lcomed a facilities maintenance engineer visit. She said that her family gathered around her and offered prayer la night. She is a member of [employer] and asked that the adventism be no tified of her hospitalization. She has a strong virginie and belief in prayer. Spiritual Intervention: Offered pastoral presence and encouragement. Shared prayer. Left a message for the cost specialist at [employer] Spiritual Outcomes: Scarlet expressed her appreciation [...] [address] | | | | | | [place] [address] | | | | | | [phone] | | | | | | | [...] | | | | VONDA SHEPPARD MD ([id number]) | | | | | | on [...] 09/26/2016 | PROVATION | | 12:24 PMMRN: [id number] #: [id number] of : | | | 1935dmit Type: AmbulatoryAge: 80Room: [facility] 01Gender: FemaleNote | | | Status: FinalizedAttending MD: Gregor Mccord , MDProcedure: | | | ERCPIndications: Filling defect on intraoperative | | | cholangiogramProviders: Gregor Mccord MD, Jalyn Darden | | | ROBI Ring, Pablo Rothman, [facility], | | | Laurie Hammond, Test Worker, Paty Beverly | | | Michelle, Test Worker, Enrique Llanos MD (Anesthesia | | | [...] | | | the anesthesiologist and the phlebotomy technician in the endoscopy suite. | | [...] the procedure | | | well.Findings: A property adjuster film of the abdomen was obtained. | [...] | | 12:39:22 PMScope Out: 1:06:30 PM [facility] | | | [place], [address] [place] [address] | | | - Continue present medications. [...] |Scope Out: 1:06:30 PM | | | [facility], [address] [place] [address] | | | [address] | | + + -+ + +---------+ [...] | | | | VONDA SHEPPARD MD ([id number]) | | | | | | on [...]
--- OUTSIDE RECORDS SUMMARY | ~2020-02-28 | XMS | Encounter Summary ---
Demographics + + + | Address | [address] | | | [place] [address] | + + + | Home Phone [...] Team Providers + +------+ + | Care Pattern Drum Maker Name | Role | Phone | + +------+ + | Susan Leos | PCP | | | PA-C | | | + +------+ + Reason for Visit + +--------+ + | Reason | Onset | Comments | | | Date | | + +--------+ + | Procedure | 02/20/ | | | | 2020 | | + +--------+ + Encounter Details +--------+ + + + + | Date | Type | Department | Care Team | Description | +--------+ + + + + | 02/20/ | Telephone | [facility] | Sam Samuels DO | Procedure | | 2020 | | [facility] | [address] | | | | | [address] | [place] [address] | | | | | [address] | [phone] | | | | | [place], [place] | | | | | | [address] | | | | | | [phone] | | | +--------+ + + + [...] this encounter Miscellaneous Notes Telephone Encounter - Indira Miranda, Global Product Manager - 02/21/2020 12:30 PM PDTLM for niko freedman with the pre op instructions for the patients procedure with Dr Samuels and the servando l time of 9:50AM CAdocarmen sanchez in this encounter Plan of Treatment +--------+---------+ + + + | Date | Type | Specialty | Care Team | Description | +--------+---------+ + + + | 05/17/ | Office | Cardiology | Jeniffer Haines | | | 2019 | Visit | | [address] | | | | | | [address] | | | | | | [facility] [address] | | | | | | [phone] | | | | | | | | +--------+---------+ + + + documented as of this encounter Visit Diagnoses Not on filedocumented in this encounter"
--- OUTSIDE RECORDS SUMMARY | ~2020-02-28 | XMS | Encounter Summary ---
Demographics + + + | Address | [address] | | | [place] [address] | + + + | Home Phone | | + + + | Preferred Language | Unknown | + + + | Marital Status | | + + + | Latter-Day Affiliation | 1077 | + + + | Race | White | + + + | Ethnic Group | Not or | + + + Author + + + | Author | [facility] | | | and [place] | + + + | Organization | [facility] | | | and [...] Team Providers + +------+ + | Care City Route Driver Name | Role | Phone | [...] pain | | 2019 | Encounter | [facility] | M, MD [address] | | | | [address] | [address] | | | | | [place], [place] | [place] [address] | | | | | [address] | [phone] | | | | | [phone] | | | +--------+ + + + [...] | | | 0 | | ([facility]) | | | | | | | MISC | | | | | | + + + +---------+ + + | [place]-3 Fatty | Take 1 tablet by | [...] [address] | | | | | | [facility] [address] | | | | | | [phone] | | | | | | | [...]
--- OUTSIDE RECORDS SUMMARY | ~2020-02-28 | XMS | Encounter Summary ---
Demographics + + + | Address | [address] | | | [place] [address] | + + + | Home Phone [...] Author | [facility] | | | and [place] | + + + | Organization | [facility] | | [...] Team Providers + +------+ + | Care Showroom Executive Director Name | Role | Phone | [...] | | | collapse | [address] | [place] | | | | | Procedures | [address] | [address] | | | | | EVENT | [address] | [address] | | | | | [address]IT[address] | [place], [place] | [place] | | | | | WEEK 4 week | [address] | [address] | | | | | | Phone: | Phone: | | | | | | [phone] | [phone] | | | | | | Fax: | Fax: | | | | | | [phone] | [phone] | +--------+--------+ + + + + Encounter Details +--------+ + + + + | Date | Type | Department | Care Team | Description | +--------+ + + + + | 07/07/ | Procedure | [facility] | Smitha Griffin DO | Syncope, unspecified | | 2019 | visit | CARDIOLOGY [place] | [address] | syncope type | | | | [address] | [address] [place], [place] | | | | | [address] | [address] | | | | | [place], [place] | | | | | | [address] | | | | | | [phone] | | | +--------+ + + + [...] of this encounter Progress Notes Lina Recinos, Machine Shop Apprentice - 07/07/2019 3:30 PM PST4 week cardiac event monitor placed on patient. EOB/Billing information discussed. Instructions given and understood. P atient [facility] for any billing or monitor questions. JJEZ:DIRECTOR PEDIATRIC-AAMA. doc umented in this encounter Plan of Treatment +--------+---------+ + + + | Date | Type | Specialty | Care Team | Description | +--------+---------+ + + + | 05/17/ | Office | Cardiology | Jeniffer Haines | | | 2019 | Visit | | [address] | | | | | | [address] | | | | | | [place] [address] | | | | | | [phone] | | | | | | | | +--------+---------+ + + + documented as of this encounter Visit Diagnoses + + | Diagnosis | + + | Syncope, unspecified syncope type | + + documented in this encounter"
--- OUTSIDE RECORDS SUMMARY | ~2020-02-28 | XMS | Encounter Summary ---
Demographics + + + | Address | [address] | | | [place] [address] | + + + | Home Phone | | + + + | Preferred Language | Unknown | + + + | Marital Status | | + + + | Buddhism Affiliation | Unknown | + + + | Race | White | + + + | Ethnic Group | Not or | + + + Author + + + | Author | [facility] | + + + | Organization | [facility] | + + + | Address [...] Team Providers + +------+ + | Care Estimating Engineer Name | Role | Phone | + +------+ + PCP | Unavailable | + +------+ + Encounter Details +--------+ + + + + | Date | Type | Department | Care Team | Description | +--------+ + + + + | 03/17/ | Hospital | Dermatopathology | | | | 2017 | Encounter | [address] | | | | | | Mailcode: CH16D | | | | | | [facility] | | | | | | and Healing, | | | | | | Building [address], | | | | | | Floor [place], [place] | | | | | | [address] | | | | | | [phone] | | | +--------+ + + + [...] | | | | | | labeled Murguia November:A: | | | | | | Specimen is labeled "L | | | | | | jawline" and consists of | | | | | | an irregular shave | | | | | | ofpapular white-mitchell | | | | | | skin, [id number]. The | | | | | | [...] LENTIGO. | | | | | | KPW:jb03/19/17 My | | | | | | [...] Robledo | | | | | | M.VinitaPathologistDate | | | | | | Completed: [...] + + + | [facility] | Mailcode CH[address]D [address] | [place] [address] | | | DERMATOPATHOLOGY | [address] | | | + + + + + | [facility] | [address] | [place] [address] | | | DERMATOPATHOLOGY | [address] | | | + + + + + documented in this encounter Visit Diagnoses + + | Diagnosis | + + | Other melanin hyperpigmentation | + + documented in this encounter
--- OUTSIDE RECORDS SUMMARY | ~2020-02-28 | XMS | Encounter Summary ---
Demographics + + + | Address | [address] | | | [place] [address] | + + + | Home Phone [...] + + + | Author | [facility] | | | and [place] | + + + | Organization | [facility] | | | [...] Team Providers + +------+ + | Care Hydrometer Calibrator Name | Role | Phone | + +------+ + | Susan Leos | PCP | | | PA-C | | | + +------+ + Reason for Visit + +--------+ + | Reason | Onset | Comments | | | Date | | + +--------+ + | Pre-Procedure | 12/06/ | | | | 2020 | | + +--------+ + Encounter Details +--------+ + + + + | Date | Type | Department | Care Team | Description | +--------+ + + + + | 12/06/ | Telephone | [facility] | Sam Samuels DO | Pre-Procedure | | 2020 | | [facility] | [address] | | | | | [address] | [place] [address] | | | | | [address] | [phone] | | | | | [place], [place] | | | | | | [address] | | | | | | [phone] | | | +--------+ + + + [...] encounter Miscellaneous Notes Telephone Encounter - Desiree Martinez Filling And Stapling Machine Operator - 12/07/2019 12:23 PM PDTPatient has been advised of the pre op instructions prior to the procedure with Dr SAMUELS and the a rrival time of 0945AM was given. docum ented in this encounter Plan of Treatment +--------+---------+ + + + | Date | Type | Specialty | Care Team | Description | +--------+---------+ + + + | 05/17/ | Office | Cardiology | Jeniffer Haines | | | 2019 | Visit | | [address] | | | | | | [address] | | | | | | [place] [address] | | | | | | [phone] | | | | | | | | +--------+---------+ + + + documented as of this encounter Visit Diagnoses Not on filedocumented in this encounter"
--- OUTSIDE RECORDS SUMMARY | ~2020-02-28 | XMS | Encounter Summary ---
Demographics + + + | Address | [address] | | | [place] [address] | + + + | Home Phone | | + + + | Preferred Language | Unknown | + + + | Marital Status | | + + + | Gnosticist Affiliation | 1077 | + + + | Race | White | + + + | Ethnic Group | Not or | + + + Author + + + | Author | [facility] | | | and [place] | + + + | Organization | [facility] | | | [...] Team Providers + +------+ + | Care Biofuels Processing Technician Name | Role | Phone | [...] | | | | | from | [address] | [address] | | | | | [place] at | [address] | [address] [place] [address] | | | | | [facility] | [address], | [place], [place] | | | | | Procedures | [place] | [address] Phone: | | | | | NEW PATIENT | [address] | [phone] | | | | | | Phone: | Fax: | | | | | | [phone] | [phone] | | | | | | Fax: | | | | | | | [phone] | | + +--------+ + + + + Encounter Details +--------+---------+ + + + | Date | Type | Department | Care Team | Description | +--------+---------+ + + + | 03/14/ | Office | [facility] | [place] | 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
--- OUTSIDE RECORDS SUMMARY | ~2020-02-28 | XMS | Encounter Summary ---
Demographics + + + | Address | [address] | | | [place] [address] | + + + | Home Phone [...] | + + +---------+ + | Chrissie Loes | ECON | Unknown | | + + +---------+ + Care Team Providers + +------+ + | Care Computer Graphics Illustrator Name | Role | Phone | + +------+ + | Susan Leos | PCP | | | PA-C | | | + +------+ + Reason for Visit + +--------+ + | Reason | Onset | Comments | | | Date | | + +--------+ + | Referral | 09/05/ | | | | 2016 | | + +--------+ + Encounter Details +--------+ + + + + | Date | Type | Department | Care Team | Description | +--------+ + + + + | 09/05/ | Telephone | [facility] | Gregor Mccord MD | Referral | | 2017 | | GASTROENTEROLOGY | [address], [place] | | | | | [address] [place] | [address] [place], [place] | | | | | [address] [place], [place] | [address] | | | | | [address] | | | | | | [phone] | | | +--------+ + + + [...] this encounter Miscellaneous Notes Telephone Encounter - Ava Madrigal - 09/10/2016 2:46 PM PDTSpoke with patient and expl daniellened ROBI Cuadra's note, patient verbalized understanding and stated she will be here for her appointment on 10/02/16. Closing encounter. Electronically signed by Ava Madrigal at 0 09/10/2016 2:49 PM PDTTelephone Encounter - Sallie Osborne - 09/05/2016 2:20 PM PDTCall ed patient to schedule office visit. She is scheduled for 10/02/[address] Mccord but asked if she could just get the procedure done without an office visit. She asked that we call an d let her know if it is possible at [phone]. If it is not, please route back to the [facility] office along with reasoning and we will call her back. Thank you. documented in this encounter Plan of Treatment +--------+---------+ + + + | Date | Type | Specialty | Care Team | Description | +--------+---------+ + + + | 05/17/ | Office | Cardiology | DarynabbeyJeniffer braun | | | 2019 | Visit | | [address] | | | | | | [address] | | | | | | [place] [address] | | | | | | [phone] | | | | | | | | +--------+---------+ + + + documented as of this encounter Visit Diagnoses Not on filedocumented in this encounter"
--- OUTSIDE RECORDS SUMMARY | ~2020-02-28 | XMS | Encounter Summary ---
Demographics + + + | Address | [address] | | | [place] [address] | + + + | Home Phone | | + + + | Preferred Language | Unknown | + + + | Marital Status | | + + + | Buddhism Affiliation | 1077 | + + + | Race | White | + + + | Ethnic Group | Not or | + + + Author + + + | Author | [facility] | | | and [place] | + + + | Organization | [facility] | | | [...] Team Providers + +------+ + | Care Horse Racing Manager Name | Role | Phone | + +------+ + | Susan Loes | PCP | | | PA-C | | | + +------+ + Reason for Visit + +--------+ + | Reason | Onset | Comments | | | Date | | + +--------+ + | Pre-Procedure | 12/20/ | | | | 2020 | | + +--------+ + Encounter Details +--------+ + + + + | Date | Type | Department | Care Team | Description | +--------+ + + + + | 12/20/ | Telephone | [facility] | Sam Samuels DO | Pre-Procedure | | 2020 | | [facility] | [address] | | | | | [address] | [place] [address] | | | | | JESSCIA HASSAN | [phone] | | | | | [place], [place] | | | | | | [address] | | | | | | [phone] | | | +--------+ + + + [...] Miscellaneous Notes Telephone Encounter - Desiree Martinez Civil Engineering Director - 12/21/2019 1:46 PM PDTLM daphne zhang patient know we got the message that she was confirming her procedure for tomorrow matteo ford at 0930 elephone Encounter - Desiree Cornejo - 12/21/2019 1:24 PM PDTJune, is chaoin g call for Pre-Procedure and would like a call back. Additional Call Details: Returned call to confirm elephone Encoun Desiree Cui Civil Engineering Director - 12/21/2019 1:22 PM PDTLM for patient with the p re op instructions for the patients procedure with Dr SAMUELS and the arrival time of 0930AM docum ented in this encounter Plan of Treatment +--------+---------+ + + + | Date | Type | Specialty | Care Team | Description | +--------+---------+ + + + | 05/17/ | Office | Cardiology | Jeniffer Haines | | 2019 | Visit | | [address] | | | | | | [address] | | | | | | [place] [address] | | | | | | [phone] | | | | | | | | +--------+---------+ + + + documented as of this encounter Visit Diagnoses Not on filedocumented in this encounter"
--- OUTSIDE RECORDS SUMMARY | ~2020-02-28 | XMS | Encounter Summary ---
Demographics + + + | Address | [address] | | | [place] [address] | + + + | Home Phone | | + + + | Preferred Language | Unknown | + + + | Marital Status | | + + + | Evangelical Affiliation | 1077 | + + + [...] Team Providers + +------+ + | Care Nba Player Name | Role | Phone | + [...] | | Spondylolist | [place] | [address] | | | | | hesis at | [address] | Phone: | | | | | L4-L5 level | Phone: | [phone] | | | | | Bilateral | [phone] | Fax: | | | | | lumbar | Fax: | [phone] | | | | | radiculopath | [phone] | | | | | | y [...] | | displacement | [address] | [place], [place] | | | | | , lumbar | Ave | [address] Phone: | | | | | [place] | [place] | [phone] | | | | | | [place] | Fax: | | | | | | [address] | [phone] | | | | | | Phone: | | | | | | | [phone] | | | | | | | Fax: | | | | | | | [phone] | | +--------+--------+ + + + + Encounter Details +--------+---------+ + + + | Date | Type | Department | Care Team | Description | +--------+---------+ + + + | 02/03/ | Office | [facility] | Ray, | DDD (degenerative | | 2016 | Visit | PHYSIATRY [address] | [address] | disc disease), | | | | [address] | [address] | lumbar (Primary Dx); | | | | [place], [place] | [place] [address] | Spondylolisthesis | | | | [address] | 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 superintendent marine oil terminal risk can lead to osteoporosis which is [...] tablet by mouth Daily. Multiple Vitamins-Minerals ([facility]) MISC Take by mouth. [place]-3 Fatty Acids (PRO NUTRIENTS OMEGA 3 PO) [...] has no apparent deficits with short or assistant terminal manager memory. She has appropriate fund of knowledge [...] had a NCS performed b y a supervisor tubing in [place]. I would like to get those records. [...] [address] | | | | | | [place] [address] | | | | | | [phone] | | | | | | | [...]
--- OUTSIDE RECORDS SUMMARY | ~2020-02-28 | XMS | Clinical Summary ---
Demographics + + + | Address | [address] | | | [place] [address] | + + + | Home Phone | | + + + | Preferred Language | Unknown | + + + | Marital Status | | + + + | Buddhist Affiliation | Unknown | + + + [...] Team Providers + +------+ + | Care Buildings And Grounds Superintendent Name | Role | Phone | + +------+ + PCP | Unavailable | + +------+ + Source Comments FIORELLA is fully live on both [facility] Ambulatory and [facility] InPatient.[facility] Allergies Not on File Medications [...] + + + Last Filed Vital Signs Not on file Plan of Treatment + + +-------+ + | Health Maintenance | Due Date | Last | Comments | | | | Done | | + + +-------+ + | Pneumococcal | | | | | vaccination (1 of 1 | 9 | | | | - PPSV23) | | | | + + +-------+ + | Influenza (Flu) | | | | | vaccination (#1) | 0 | | | + + +-------+ + Results Not on filefrom Last 3 [...] +------+ | [employer] MEDICARE | MODA | [id number] | Effect | [phone] | [address] | PPO | | | MEDICA | | nestor | 4 | [address] | | | | RE PPO | | for | | [place], | | | | | | all | | [place] [address] | | | | | | dates [...] | 1936 | [phone] | [place] [address] | | | [place] | | | 3 (Home) | | + +--------+ +--------+ + +"
--- OUTSIDE RECORDS SUMMARY | ~2020-02-28 | XMS | Encounter Summary ---
Demographics + + + | Address | [address] | | | [place] [address] | + + + | Home Phone | | + + + | Preferred Language | Unknown | + + + | Marital Status | | + + + | Pentecostalism Affiliation | 1077 | + + + | Race | White | + + + | Ethnic Group | Not or | + + + Author + + + | Author | [facility] | | | and [place] | + + + | Organization | [facility] | | [...] Team Providers + +------+ + | Care Template Reproduction Technician Name | Role | Phone | + +------+ + PCP | Unavailable | + +------+ + Encounter Details +--------+ + + + + | Date | Type | Department | Care Team | Description | +--------+ + + + + | 06/23/ | Hospital | [facility] | | SCREENING MAMM-MAILG | | 2006 | Encounter | [address] | | [address] | | | | [address] | | | | | | [facility] | | | | | | [address] | | | | | | [phone] | | | +--------+ + + + [...] | | | | | [place] [address] | | | | | | [phone] | | | | | | | | +--------+---------+ + + + documented as of this encounter Visit Diagnoses + + | Diagnosis | + + | Other screening mammogram | + + documented in this encounter"
--- OUTSIDE RECORDS SUMMARY | ~2020-02-28 | XMS | Encounter Summary ---
Demographics + + + | Address | [address] | | | [place] [address] | + + + | Home Phone | | + + + | Preferred Language | Unknown | + + + | Marital Status | | + + + | Confucianist Affiliation | Unknown | + + + [...] Team Providers + +------+ + | Care Plating Tank Operator Apprentice Name | Role | Phone | + [...] Rd | | | | | | [place], [place] | | | | | | [address] | | | +--------+ + + + [...]
--- OUTSIDE RECORDS SUMMARY | ~2020-02-28 | XMS | Encounter Summary ---
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 | [address] | THERAPY [address] | | | | | osteoarthrit | [address] | [facility] | | | | | is of left | [place], [place] | [place], [place] | | | | | hip | [address] | [address] | | | | | | Phone: | Phone: | | | | | | [phone] | [phone] | | | | | | Fax: | Fax: | | | | | | [phone] | [phone] | +--------+ + + + + + [...] | | | [facility] | John, | [place], [place] | | | | | Procedures | [place] | [address] Phone: | | | | | NEW PATIENT | [address] | [phone] | | | | | | Phone: | Fax: | | | | | | [phone] | [phone] | | | | | | Fax: | | | | | | | [phone] | | + +--------+ + + + + Encounter Details +--------+---------+ + + + | Date | Type | Department | Care Team | Description | +--------+---------+ + + + | 03/21/ | Office | [facility] | Gus Orozco, | 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[place], [place]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[place], | left hip (Primary | | | | [address] | [place] [address] | Dx) | | | | [phone] | [phone] | | | | | | | [...] Procedure: ERCP; Surgeon: Gregor Mccord MD; [facility] MEDICAL PROCEDURE UNIT ERCP N/A 10/14/2016 Procedure: ERCP w/ stent pull; Surgeon: Gregor Mccord MD; Location: [facility] MEDICAL PROCEDU RE UNIT PARTIAL HYSTERECTOMY 1971 [...] Maternal Uncle Social History 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 Tobacco Use Smoking status: Never [...] MISC, Take by mouth., Disp: , Rfl: [place]-3 Fatty Acids (PRO NUTRIENTS OMEGA 3 PO), [...] 12 months?:yes Under the care of a patrol lady?: no Diabetes Optimization?:well controlled diet No results found for: LABGLYC History of MRSA/MSSA infection?:no Metal sensitivity or allergy?:no Intolerance to certain specific opiate?:no DVT/PE Risk Stratification Personal history of DVT/PE?:no Cancer treatment in the last 5 years?:no Hormone replacement therapy?:no Tolerate aspirin?:asa Current Anticoagulation?:asa Chemical prophylaxis plan:asa Anticipated Discharge Plan Discharge home to care of daughter (princess), [facility] Return for 2 and 6 weeks post op. 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 Tobacco Use Smoking status: Never [...] MISC, Take by mouth., Disp: , Rfl: [place]-3 Fatty Acids (PRO NUTRIENTS OMEGA 3 PO), [...] 12 months?:yes Under the care of a patrol lady?: no Diabetes Optimization?:well controlled diet No results found for: LABGLYC History of MRSA/MSSA infection?:no Metal sensitivity or allergy?:no Intolerance to certain specific opiate?:no DVT/PE Risk Stratification Personal history of DVT/PE?:no Cancer treatment in the last 5 years?:no Hormone replacement therapy?:no Tolerate aspirin?:asa Current Anticoagulation?:asa Chemical prophylaxis plan:asa Anticipated Discharge Plan Discharge home to care of daughter (princess), [facility] Return for 2 and 6 weeks post op. No notes on file Gus Orozco PA-C documented in this e ncounter Plan of Treatment +--------+---------+ + + + | Date | Type | Specialty | Care Team | Description | +--------+---------+ + + + | 05/17/ | Office | Cardiology | Jeniffer Haines | | | 2019 | Visit | | [address] | | | | | | [address] | | | | | | [place] [address] | | | | | | [phone] | | | | | | | [...]
--- OUTSIDE RECORDS SUMMARY | ~2020-02-28 | XMS | Encounter Summary ---
Demographics + + + | Address | [address] | | | [place] [address] | + + + | Home Phone [...] | Author | [facility] | | | and [place] | + + + | Organization | [facility] | | | [...] Providers + +------+ + | Care Manager Of Network Name | Role | Phone | + +------+ + | Susan Leos | PCP | | | PA-C | | | + +------+ + Reason for Visit +--------+--------+ + | Reason | Onset | Comments | | | Date | | +--------+--------+ + | Other | 11/20/ | covid screening | | | 2020 | | +--------+--------+ + Encounter Details +--------+ + + + + | Date | Type | Department | Care Team | Description | +--------+ + + + + | 11/20/ | Telephone | [facility] | Sam Samuels, DO | Other (covid | | 2019 | | [facility]THO [facility]ORTS | [address] | screening) | | | | MEDICINE [place] | [place] [address] | | | | | [address] | [phone] | | | | | [place], [place] | | | | | | [address] | | | | | | [phone] | | | +--------+ + + + [...] this encounter Miscellaneous Notes Telephone Encounter - Maria Elena Schmid, Metal Polisher And Buffer Apprentice - 11/21/2019 12:30 PM PDT Proactive screening for upcoming office visit to help ensure the clinic environment remains a safe place to receive care. 1. Patient (or visitor as allowed per policy) reports the following symptoms and/or exposur e on the epidemic risk screen: ? Fever greater than 100.4 F?: no ? New onset (within the last 14 days) cough?: no ? New onset (within the last 14 days) shortness of breath?: no ? New onset (within the last 14 days) loss of taste or smell?: no ? New onset (within the last 14 days) sore throat?: no ? New onset (within the last 14 days) chills: no ? New onset (within the last 14 days) muscle aches: no ? Close contact with someone who has been diagnosed with COVID-19?: no The patient reported no symptoms or exposure and proceeded with proactive screening process . 2. Have you (or visitor as allowed per policy) with been tested for COVID-19?: No. Okay t o see patient in clinic per scheduling guidelines, proceeded to question #3 If YES, answer the following questions: ? Were you tested for COVID-19 for pre-procedure and have no symptoms? (If YES, proceed to question 3) ? Has it been ten days since your symptoms first started?: ? Have you been fever free for three days without taking fever reducing medications?: ? Have you experienced at least three days of improvement in your respiratory symptoms (e.g . cough, shortness of breath)?: ? Can patient be seen in clinic?: . 3. Does the patient have MyChart Access?: No. Helped get the patient MyChart access and encouraged use of the E-Check In feature. Please be aware that you will be asked these same questions when you arrive at the clinic. If you have any changes in your symptoms between now and your visit, please call us so we c an get you scheduled for an alternative visit before you arrive at the clinic. For your safety and the safety of others, we ask that if you are being seen in person at on e of our clinics you arrive wearing a mask. Hand washing is santamaria to keeping our clinic a safe place to receive care. While you are in ou r clinics you will be asked to perform hand washing at different intervals throughout your v isit. While you are in the clinic 6ft distancing is required, please ensure you look for the 6ft floor markers and adhere to distancing. Visitor restrictions remain in place following CDC guidance. Only minimal exceptions will be allowed. If you arrive with a visitor they may be asked to wait in the car during your v isit. documented in this encounter Plan of Treatment +--------+---------+ + + + | Date | Type | Specialty | Care Team | Description | +--------+---------+ + + + | 05/17/ | Office | Cardiology | Jeniffer Haines | | | 2019 | Visit | | [address] | | | | | | [address] | | | | | | [place] [address] | | | | | | [phone] | | | | | | | | +--------+---------+ + + + documented as of this encounter Visit Diagnoses Not on filedocumented in this encounter"
--- OUTSIDE RECORDS SUMMARY | ~2020-02-28 | XMS | Encounter Summary ---
Demographics + + + | Address | [address] | | | [place] [address] | + + + | Home Phone [...] | Author | [facility] | | | and [place] | + + + | Organization | [facility] | | | [...] Team Providers + +------+ + | Care Blanchard Grinder Operator Name | Role | Phone | + +------+ + | Susan Leos | PCP | | | PA-C | | | + +------+ + Encounter Details +--------+ + + + + | Date | Type | Department | Care Team | Description | +--------+ + + + + | 02/28/ | [facility] | [facility] | Malcom Mojica, | Peripheral | | 2016 | Encounter | [facility] | [address] | polyneuropathy | | | | [address] | [address], | (Primary Dx) | | | | [place], [place] | [place] [address] | | | | | [address] | [phone] | | | | | [phone] | | | +--------+ + + + [...] + +---------+--------+ + | gabapentin | Take 600 mg [...] + +---------+--------+ + | Psyllium | Take 1 Dose [...] | | 0 | + + + +---------+--------+ + | [...] | | 0 | + + + +---------+--------+ + | Multiple | Take by mouth. | | 0 | | | | Vitamins-Minerals | | | | | 0 | | ([facility]) | | | | | | | MISC | | | | | | + + + +---------+--------+ + | [place]-3 Fatty | Take 1 tablet by | [...] [address] | | | | | | [place] [address] | | | | | | [phone] | | | | | | | [...] | e | 8:41 AM | polyneuropathy | procedure are in the | | | | PDT | | results section. | + +--------+ + + + | VITAMIN B-6 | Routin | 02/29/2016 | Peripheral | Results for this | | | e | 8:41 AM | polyneuropathy | procedure are in the [...] | | | | | | determinedby [facility] | | | | | | Division [...] | | | | | | decisions. [facility] | | | | | | is authorizedunder | | | | | | Clinical Laboratory | | | | | | Improvement Amendments | | | | | | (CLIA) to | | | | | | performhigh-complexity | | | | | | testing.Testing | | | | | | Performed: [facility], [address]bie [address] | | | | | | [address], [place] | | | | | | [address] | | | | + + + [...] [address] | [place] [address] | [phone] | + + + + + Vitamin [...] Vitamin | | | | | | X3scudelxpqxe.This test | | | | | | [...] [place] | | | | | | [address] | | | | + + + + + + + + | Specimen | + + | Blood specimen | | (specimen) | + + + + + + + | Performing | Address | City/State/Zipcode | Phone Number | | Organization | | | | + + + + + | [facility] | [address] | [place] [address] | [phone] | + + + + + documented in this encounter Visit Diagnoses + + | Diagnosis | + + | Peripheral polyneuropathy - Primary Unspecified hereditary and idiopathic peripheral | | neuropathy | + + documented in this encounter"
--- OUTSIDE RECORDS SUMMARY | ~2020-02-28 | XMS | Encounter Summary ---
Demographics + + + | Address | [address] | | | [place] [address] | + + + | Home Phone | | + + + | Preferred Language | Unknown | + + + | Marital Status | | + + + | Mu-Ism Affiliation | 1077 | + + + | Race | White | + + + | Ethnic Group | Not or | + + + Author + + + | Author | [facility] | | | and [place] | + + + | Organization | [facility] | | | [...] Team Providers + +------+ + | Care Teacher Adult Education Name | Role | Phone | + +------+ + | Susan Leos | PCP | | | PA-C | | | + +------+ + Encounter Details +--------+ + + + + | Date | Type | Department | Care Team | Description | +--------+ + + + + | 12/21/ | Hospital | [facility] | Motaghi, Sam, DO | | | 2020 | Encounter | [facility] | [address] | | | | | XRAY [address] | [place] [address] | | | | | [address], | [phone] | | | | | [place] [address] | | | | | | [phone] | | | +--------+ + + + [...] | | 0 | | | | [facility] | mouth Daily. | | | | [...] [address] | | | | | | [place] [address] | | | | | | [phone] | | | | | | | [...]
--- OUTSIDE RECORDS SUMMARY | ~2020-02-28 | XMS | Encounter Summary ---
Demographics + + + | Address | [address] | | | [place] [address] | + + + | Home Phone [...] + | Author | [facility] | | | and [place] | + + + | Organization | [facility] | | | [...] Team Providers + +------+ + | Care Neck Band Setter Name | Role | Phone | + [...] | | | | | Spondylolist | [place], [place] | [address] | | | | | hesis at | [address] | Phone: | | | | | L4-L5 level | Phone: | [phone] | | | | | Bilateral | [phone] | Fax: | | | | | lumbar | Fax: | [phone] | | | | | radiculopath | [phone] | | | | | | y [...] | | [place], [place] | [place] [address] | Spondylolisthesis | | | | [address] | [phone] | at L4-L5 level; | | | | [phone] | | Bilateral lumbar | | | [...] F | | | | | | [place] [address] | | | | | | [phone] | | | | | | | [...]
--- OUTSIDE RECORDS SUMMARY | ~2020-02-28 | XMS | Encounter Summary ---
Demographics + + + | Address | [address] | | | [place] [address] | + + + | Home Phone [...] Team Providers + +------+ + | Care Customer Assistance Associate Name | Role | Phone | + [...] [address] | | | | | [address] [place], [place] | [place] [address] | | | | | [address] | [place] [address] | | | | | [phone] | [phone] | | | | | | | [...] [address] | | | | | | [place] [address] | | | | | | [phone] | | | | | | | | +--------+---------+ + + + documented as of this encounter Visit Diagnoses Not on filedocumented in this encounter"
--- OUTSIDE RECORDS SUMMARY | ~2020-02-28 | XMS | Encounter Summary ---
Demographics + + + | Address | [address] | | | [place] [address] | + + + | Home Phone [...] Team Providers + +------+ + | Care Hand Stapler Name | Role | Phone | + [...] | Gregor Brock MD | [address] | | | | | abnormality | [address] | [place], | | | | | Procedures | [address], [place] | [place] | | | | | MRI MRCP | [address] [place] | [address] | | | | | Liver wo | [place], [place] | Phone: | | | | | Contrast [place] | [address] | [phone] | | | | | MRI, | Phone: | Fax: | | | | | ABDOMEN | [phone] | [phone] | | | | | (MRI) | Fax: | | | | | | | [phone] | | +--------+--------+ + + + + [...] 2017 | | GASTROENTEROLOGY | [address], [place] | | | | | [address] [place] | [address] [place], [place] | | | | | [address] [place], [place] | [address] | | | | | [address] | | | | | | [phone] | | | +--------+ + + + [...] 10/15/2016 1:15 PM [facility]alled [facility] ERCP stent pull yesterday. [...] November 07. Edna decker is agreeable to [facility] for her MRCP documented in this [...] [address] | | | | | | [place] [address] | | | | | | [phone] | | | | | | | [...] bile duct. COMPARISON: Lumbar spine dated | [facility] | | 02/11/2016. PROTOCOL: Coronal T2 professor of physics, axial T2 professor of physics, coronal 3D | [facility] | | respiratory triggered, coronal T2 thin [...] spine dated | | 02/11/2016.PROTOCOL: Coronal T2 professor of physics, axial T2 professor of physics, coronal 3D respiratory | | triggered,coronal T2 [...] A few more small subcentimeter | | H3uugfaupxams cyst are seen within the left kidney [...] | + + + + + | [facility] | [address] | [place] | [phone] | | [facility] | | [address] | | | - IMAGING | | | | + + + + + documented in this encounter Visit Diagnoses + + | Diagnosis | + + | Bile duct abnormality - Primary Unspecified disorder of biliary tract | + + documented in this encounter"
--- OUTSIDE RECORDS SUMMARY | ~2020-02-28 | XMS | Encounter Summary ---
Demographics + + + | Address | [address] | | | [place] [address] | + + + | Home Phone | | + + + | Preferred Language | Unknown | + + + | Marital Status | | + + + | Adventism Affiliation | 1077 | + + + | Race | White | + + + | Ethnic Group | Not or | + + + Author + + + | Author | [facility] | | | and [place] | + + + | Organization | [facility] | | [...] Providers + +------+ + | Care Public Health Clinical Nurse Specialist Name | Role | Phone | + +------+ + | Susan Leos | PCP | | | PA-C | | | + +------+ + Encounter Details +--------+ + + + + | Date | Type | Department | Care Team | Description | +--------+ + + + + | 12/02/ | Hospital | [facility] | Mark Montana | Aftercare following | | 2019 | Encounter | AMY XRAY [address] | MD [address] | left hip joint | | | | [address] | [address] | replacement surgery | | | | [place], [place] | [place] [address] | | | | | [address] | [phone] | | | | | [phone] | | | +--------+ + + + [...] | | | | 0 | | ([facility]) | | | | | | | MISC | | | | | | + + + +---------+ + + | [place]-3 Fatty | Take 1 tablet by | [...] [address] | | | | | | [place] [address] | | | | | | [phone] | | | | | | | | +--------+---------+ + + + documented as of this encounter Procedures + +--------+ + + + | Procedure Name | Priori | Date/Time | Associated Diagnosis | Comments | | | ty | | | | + +--------+ + + + | XR HIP LEFT 2-3 | Routin | 05/16/2019 | Aftercare | Results for this | | VIEWS | e | 11:36 AM | following left hip | procedure are in the | | | | PST | joint replacement | results section. | | | | | surgery | | + +--------+ + + + [...] Aftercare following left hip joint replacement surgery | + + documented in this encounter"
--- OUTSIDE RECORDS SUMMARY | ~2020-02-28 | XMS | Encounter Summary ---
Demographics + + + | Address | [address] | | | [place] [address] | + + + | Home Phone [...] Team Providers + +------+ + | Care Particleboard Factory Worker Name | Role | Phone [...] [place] | | | | | | [address] | | | | | | [phone] | | | +--------+ + + + [...] [address] | | | | | | [place] [address] | | | | | | [phone] | | | | | | | | +--------+---------+ + + + documented as of this encounter Visit Diagnoses + + | Diagnosis | + + | Other screening mammogram | + + documented in this encounter"
--- OUTSIDE RECORDS SUMMARY | ~2020-02-28 | XMS | Encounter Summary ---
Demographics + + + | Address | [address] | | | [place] [address] | + + + | Home Phone [...] Team Providers + +------+ + | Care Rn Cardiac Name | Role | Phone | + +------+ + | Susan Leos | PCP | | | PA-C | | | + +------+ + Encounter Details +--------+ + + + + | Date | Type | Department | Care Team | Description | +--------+ + + + + | 09/23/ | Episode | [facility] | Sonali Garcia | | | 2017 | Changes | GASTROENTEROLOGY | M, RN | | | | | [address] | | | | | | [address] [place] | | | | | | [address] | | | | | | [phone] | | | +--------+ + + + [...] [address] | | | | | | [place] [address] | | | | | | [phone] | | | | | | | | +--------+---------+ + + + documented as of this encounter Visit Diagnoses Not on filedocumented in this encounter"
--- OUTSIDE RECORDS SUMMARY | ~2020-02-28 | XMS | Encounter Summary ---
Demographics + + + | Address | [address] | | | [place] [address] | + + + | Home Phone [...] Author | [facility] | | | and [place] | + + + | Organization | [facility] | [...] + +------+ + | Care Power Plant Installer Name | Role | Phone | [...] | Spinal | Mark Foley MD | [place] | | | Required | | stenosis, | [address] | Pain | | | | | lumbar | [address] | Management | | | | | region, with | [place], | [address] | | | | | neurogenic | [place] [address] | [facility], | | | | | claudication | Phone: | [place] | | | | | | [phone] | [address] | | | | | | Fax: | Phone: | | | | | | [phone] | [phone] | | | | | | | Fax: | | | | | | | [phone] | + + + + + + + Encounter Details +--------+---------+ + + + | Date | Type | Department | Care Team | Description | +--------+---------+ + + + | 01/30/ | Office | [facility] | Sam Samuels DO | Spondylolisthesis at | | 2020 | Visit | [facility] | [address] | L4-L5 level | | | | MEDICINE PAIN [address] | [place] [address] | (Primary Dx); Lumbar | | | | [address] [place], | [phone] | radiculopathy; | | | | [place] [address] | | Spinal stenosis of | | | | [phone] | | lumbar region with | | | | | | neurogenic | | | | | | claudication; DDD | | | | | | (degenerative disc | | | | | | disease), lumbar; | | | | | | Sacroiliitis, not | | | | | | elsewhere classified | | | | | | ([facility]) | +--------+---------+ + + + Social History [...] Sam Samuels, - 01/31/2020 11:30 AM PDT [facility]: Interventional Pain Management 01/31/2020November Jessa [...] disease), lumbar 02/04/2016 Diabetes type 2, controlled ([facility]) DVT (deep venous thrombosis) ([facility]) 03/2019 post hip replacement Full dentures upper & lower GERD (gastroesophageal reflux disease) Heart murmur HTN (hypertension) Hyperlipidemia Hypothyroidism Macular degeneration Other intervertebral disc displacement, lumbar region Peripheral neuropathy Pneumonia 2005 Pulmonary emboli ([facility]) 03/2019 after hip replacement Skin cancer Spondylolisthesis at L4-L5 level 02/04/2016 Stress incontinence in female Type 2 diabetes mellitus ([facility]) Past Surgical History: Procedure Laterality [...] [facility] MEDICAL PROCEDU RE UNIT HARDWARE REMOVAL Left 03/29/2019 Procedure: REMOVE HARDWARE LOWER EXTREMITY-HIP; Surgeon: Mark [place] MD; [place] [facility] [place]STERE[place] 1971 RECTOCELE REPAIR [...] Twice daily as needed. 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 The possibility of "s ound alike" real estate paralegal errors, and additions, or deletions may occur. [...] [address] | | | | | | [place] [address] | | | | | | [phone] | | | | | | | [...]
--- OUTSIDE RECORDS SUMMARY | ~2020-02-28 | XMS | Encounter Summary ---
Demographics + + + | Address | [address] | | | [place] [address] | + + + | Home Phone [...] Author | [facility] | | | and [place] | + + + | Organization | [facility] | | [...] Team Providers + +------+ + | Care Visual Basic Programmer Name | Role | Phone | + +------+ + | Susan Leos | PCP | | | PA-C | | | + +------+ + Reason for Visit +--------+--------+ + | Reason | Onset | Comments | | | Date | | +--------+--------+ + | Other | 08/23/ | | | | 2020 | | +--------+--------+ + Encounter Details +--------+ + + + + | Date | Type | Department | Care Team | Description | +--------+ + + + + | 08/23/ | Telephone | [facility] | Mark Montana | Other | | 2019 | | AMY [address] | MD Alaina [address] | | | | | [address] [place], [place] | [place] | | | | | [address] | [place] [address] | | | | | [phone] | [phone] | | | | | | | [...] this encounter Miscellaneous Notes Telephone Encounter - Yvette Michelle, House Carpenter Helper - 08/25/2019 8:25 AM PDTAdvised patient that referral for MRI was refaxed yesterday and that per Dr. Montana, she should f ind someone that does interventional pain management and/or spine care. Once she finds jaleesao ne, let us know and we can fax referral. elephone Encounter - Fabiana Yeung - 08/24/2019 9:03 AM PDTPatient called us stating that she spoke with [facility] about her MRI order that was supposed to be sent to them. She was told that they haven't received anything from yet so it needs to be resent. Patient also stated she would like to know if could refer her to an Orthopedis t that is closer to where she lives than [facility]. The trip for appts is becoming a lot fo r her. Please call patient back at [phone] signed by Fabiana Yeung at 0 9:06 AM PDTdocumented in this encounter Plan of Treatment +--------+---------+ + + + | Date | Type | Specialty | Care Team | Description | +--------+---------+ + + + | 05/17/ | Office | Cardiology | Jeniffer Haines | | 2019 | Visit | | [address] | | | | | | [address] | | | | | | [place] [address] | | | | | | [phone] | | | | | | | | +--------+---------+ + + + documented as of this encounter Visit Diagnoses Not on filedocumented in this encounter"
--- OUTSIDE RECORDS SUMMARY | ~2020-02-28 | XMS | Encounter Summary ---
Demographics + + + | Address | [address] | | | [place] [address] | + + + | Home Phone [...] | Author | [facility] | | | and [place] | + + + | Organization | [facility] | | | [...] Providers + +------+ + | Care Medical Record Technician Name | Role | Phone | + +------+ + | Susan Leos | PCP | | | PA-C | | | + +------+ + Encounter Details +--------+ + + + + | Date | Type | Department | Care Team | Description | +--------+ + + + + | 11/21/ | Hospital | [facility] | Sam Samuels, DO | Spondylolisthesis at | | 2020 | Encounter | [facility] | [address] | L4-L5 level; Lumbar | | | | [address] | [place] [address] | radiculopathy; | | | | [place], [place] | [phone] | Spinal stenosis of | | | | [address] | | lumbar region with | | | | [phone] | | neurogenic | | | | [...] | | 0 | | | | VF-Ygwgwtmezs-Lrqyoo | mouth Daily. | | | | [...] [address] | | | | | | [place] [address] | | | | | | [phone] | | | | | | | [...]
--- OUTSIDE RECORDS SUMMARY | ~2020-02-28 | XMS | Clinical Summary ---
Demographics + + + | Address | [address] | | | [place] [address] | + + + | Home Phone [...] Team Providers + +------+ + | Care Ornamental Iron Worker Apprentice Name | Role | Phone | [...] 0 | | | Activ | | WN-Botyjneyhm-Tmkokb | mouth Daily. | | | | [...] automatically from request for surgery | | [id number] | + + + + + | [...] classified | | | | | | ([facility]) | +--------+ + + + [...] 12/08/ | Telephone | Pain Medicine | Sam Samuels DO | Follow-up | | 2019 | | | | | +--------+ + + + + | 12/07/ | Hospital | Radiology | Sam Samuels DO | | 2019 | Encounter | | | | +--------+ + + + + | 12/07/ | Hospital | Pain Medicine | Sam Samuels DO | Spondylolisthesis at | | 2019 | Encounter | | | L4-L5 level [...] [address] | | | | | | [place] [address] | | | | | | [phone] | | | | | | | [...] /NA | | Mark Foley MD at [facility] | | | | | | [...] /NA | | Mark Foley MD at [facility] | | | | | | /[address] | | [facility] | | [...] /NA | | Mark Foley MD at [facility] | | | | | | /[address] | | [facility] | | | | | | 802 | + +--------+--------+ +--------+--------+--------+ | Stent Bili Advnx 10fr 5cm - | Stent | | [place] | | | 3432 / | | [id number]: Qty: 1 on | | | SCIENTIFIC | | | / | | 09/26/2016 by Gregor Mccord | | | BIGG - BSCI | | | | | MD Delmy at [facility] | | | | | | [...] /NA | | Mark Foley MD at [facility] | | | | | | /[address] | | [facility] | | | | | | 901A | + +--------+--------+ +--------+--------+--------+ | Screw Hex Lp [id number] - | | Left: | RANDI | | 11/20/ | 7030-6 | | SnaImplanted: Qty: 1 on | | Hip | MEDICAL - | | 2023 | 530 | | 03/29/2019 by Nan, | | | ALLEN | | | /NA | | Mark Foley MD at [facility] | | | | | | /4RS | | [facility] | | | | | | | + +--------+--------+ +--------+--------+--------+ Results Not on filefrom Last 3 Months Insurance + +--------+ +--------+-------+---------+--------+ | Payer | Benefi | Subscriber | Effect | Phone | Address | Type | | | t Plan | ID | nestor | | | | | | / | | Dates | | | | | | Group | | | | | | + +--------+ +--------+-------+---------+--------+ | [employer] | [employer] | [id number] | 06/15/19 | | | Medica | | | HEALTH | | 17-Pre | | | re | | | MDCR | | sent | | | | + +--------+ +--------+-------+---------+--------+ | [employer] | MOD[employer] | [id number] | | | | Medica | | [...] [place] | | | 3 (Home) | [address] | + +--------+ +--------+ + + | Scarlet Murguia D | Person | Self | [birth year] | [address] | | | al/Fam | | 1936 | [phone] | [place], [place] | | | [place] | | | 3 (Home) | [address] | + +--------+ +--------+ + + | Scarlet Murguia | Person | Self | [birth year] | [address] | | | al/Fam | | 1936 | [phone] | [place] | | | [place] | | | 3 (Home) | [address] | + +--------+ +--------+ + + Advance Directives + + + + + | Type | Date Recorded | Patient | Explanation | | | | Fabric Machine Operator | | + + + + + | Power of | | | | | Towel Folder | | | | + + + [...]
--- OUTSIDE RECORDS SUMMARY | ~2020-02-28 | XMS | Encounter Summary ---
Demographics + + + | Address | [address] | | | [place] [address] | + + + | Home Phone [...] Team Providers + +------+ + | Care Exhaust And Muffler Repairer Name | Role | Phone | [...] | | | [place], [place] | [place] [address] | Spondylolisthesis at | | | | [address] | [phone] | L4-L5 level; | | | | [phone] | | Bilateral lumbar | | | [...] [address] | | | | | | [place] [address] | | | | | | [phone] | | | | | | | [...]
--- OUTSIDE RECORDS SUMMARY | ~2020-02-28 | XMS | Encounter Summary ---
Demographics + + + | Address | [address] | | | [place] [address] | + + + | Home Phone [...] Team Providers + +------+ + | Care Catalogue Compiler Name | Role | Phone | + [...] + + | 03/29/ | Anesthesia | [facility] | Michela Eli | | | 2019 | [facility] | MD Jena [address] | | | | | OPERATING RO[address] | [place], [place] | | | | | [facility] | [address] | | | | | [place] | | | | | | [address] | | | | | | [phone] | | | +--------+ + + + [...] +----+---+ + + | | 0 | Horatio | | | | 8 | 43-degrees [...] 03/30/19 043 by | | roslyn | mzpn-anw-bukvqk catheter system; | Paula Young RN | [...] EVALUATION November Murguia 83 y.o. female 1935 [id number] Procedure(s) Posterior Total Hip Arthroplasty (Left Hip) [...] signed by Michela Eli MD 03/29/2019 11:33 [facility] signed by Michela Eli MD at 2018 [...] EVALUATION Scarlet Murguia 83 y.o. female 1935 [id number] Procedure(s): Posterior Total Hip Arthroplasty (Left Hip) [...] AM PDT ANESTHESIA HANDOFF NOTE Scarlet Germain Mruguia 83 y.o. female 1935 [id number] Posterior Total Hip Arthroplasty (Left Hip) REMOVE [...] receiving team. Michela Eli MD 03/29/2019 9:22 [facility] signed by Michela Eli MD at 2018 [...] [address] | | | | | | [place] [address] | | | | | | [phone] | | | | | | | [...]
--- OUTSIDE RECORDS SUMMARY | ~2020-02-28 | XMS | Encounter Summary ---
Demographics + + + | Address | [address] | | | [place] [address] | + + + | Home Phone [...] + + | Author | [facility] | | | and [place] | + + + | Organization | [facility] | | | and [...] Providers + +------+ + | Care Elevator Repair Mechanic Name | Role | Phone | [...] + + | 03/03/ | Telephone | [facility] | Malcom Mojica, | Other (discuss lab | | 2016 | | PHYSIATRY [address] | [address] | work ) | | | | [address] | [address] [place], | | | | | [place] | [place] [address] | | | | | [address] | [phone] | | | | | [phone] | | | +--------+ + + + [...] [address] | | | | | | [place] [address] | | | | | | [phone] | | | | | | | | +--------+---------+ + + + documented as of this encounter Visit Diagnoses Not on filedocumented in this encounter"
--- OUTSIDE RECORDS SUMMARY | ~2020-02-28 | XMS | Encounter Summary ---
Demographics + + + | Address | [address] | | | [place] [address] | + + + | Home Phone [...] Providers + +------+ + | Care Digital Marketing Project Manager Name | Role | Phone [...] | 09/26/ | Hospital | [facility] | Gregor Mccord MD | | | 2017 | Encounter | MED CTR XRAY [address] | [address] | | | | | [place] | [address] [place] [place] | | | | | [place] [address] | [address] | | | | | [phone] | | | +--------+ + + + [...] | | | | 0 | | ([facility]) | | | | | | | MISC | | | | | | + + + +---------+ + + | Bee-3 Fatty | Take 1 tablet by | [...] | | | | | | [place] [address] | | | | | | [phone] | | | | | | | [...]
--- OUTSIDE RECORDS SUMMARY | ~2020-02-28 | XMS | Encounter Summary ---
Demographics + + + | Address | [address] | | | [place] [address] | + + + | Home Phone [...] Team Providers + +------+ + | Care Railcar Foreman Name | Role | Phone | [...] + + | 11/03/ | Telephone | [facility] | Gregor Mccord MD | Other | | 2016 | | GASTROENTEROLOGY | [address], [place] | | | | | [address] [place] | [address] [place], [place] | | | | | [address] [place], [place] | [address] | | | | | [address] | | | | | | [phone] | | | +--------+ + + + [...] [address] | | | | | | [place] [address] | | | | | | [phone] | | | | | | | | +--------+---------+ + + + documented as of this encounter Visit Diagnoses Not on filedocumented in this encounter"
--- OUTSIDE RECORDS SUMMARY | ~2020-02-28 | XMS | Encounter Summary ---
Demographics + + + | Address | [address] | | | [place] [address] | + + + | Home Phone [...] | [facility] | | | and [place] | + + + | Organization | [facility] | | [...] Team Providers + +------+ + | Care Sulphate Tester Name | Role | Phone | [...] + + | 09/23/ | Telephone | [facility] | Gregor Mccord MD | Appointment | | 2016 | | GASTROENTEROLOGY | [address], [place] | (Scheduled ERCP) | | | | [address] [place] | [address] [place], [place] | | | | | [address] [place], [place] | [address] | | | | | [address] | | | | | | [phone] | | | +--------+ + + + [...] an ERCP. scheduled for September 26 at [facility] checking in at 11 AM. Reviewed [...] [address] | | | | | | [place] [address] | | | | | | [phone] | | | | | | | | +--------+---------+ + + + documented as of this encounter Visit Diagnoses + + | Diagnosis | + + | Common bile duct stone - Primary Calculus of bile duct without mention of | | cholecystitis or obstruction | + + documented in this encounter"
--- OUTSIDE RECORDS SUMMARY | ~2020-02-28 | XMS | Encounter Summary ---
Demographics + + + | Address | [address] | | | [place] [address] | + + + | Home Phone [...] Author | [facility] | | | and [place] | + + + | Organization | [facility] | | | [...] Team Providers + +------+ + | Care Mechanical Applications Engineer Name | Role | Phone | [...] | Gregor Brock MD | [address] | | | | | abnormality | [address] | [place], | | | | | Procedures | [place], [place] | [place] | | | | | MRI MRCP | [address] [place] | [address] | | | | | Liver wo | [place], [place] | Phone: | | | | | [place] | [address] | [phone] | | | | | MRI, | Phone: | Fax: | | | | | [place]OM[place] | [phone] | [phone] | | | | | (MRI) | Fax: | | | | | | | [phone] | | +--------+--------+ + + + + [...] | Gregor Brock MD | [address] | | | | | abnormality | [address] | [place], | | | | | Procedures | [place], [place] | [place] | | | | | MRI MRCP | [address] [place] | [address] | | | | | Liver wo | [place], [place] | Phone: | | | | | [place] | [address] | [phone] | | | | | MRI, | Phone: | Fax: | | | | | ABDOMEN | [phone] | [phone] | | | | | (MRI) | Fax: | | | | | | | [phone] | | +--------+--------+ + + + + Encounter Details +--------+ + + + + | Date | Type | Department | Care Team | Description | +--------+ + + + + | 10/30/ | Hospital | [facility] | Gregor Mccord MD | Bile duct | | 2017 | Encounter | MED CTR MRI [address] | [address], [place] | abnormality | | | | [place], | [address] [place], [place] | | | | | [place] [address] | [address] | | | | | [phone] | | | +--------+ + + + [...] + + + +---------+ + + | [place]-3 Fatty | Take 1 tablet by | [...] [address] | | | | | | [place] [address] | | | | | | [phone] | | | | | | | [...] duct. COMPARISON: Lumbar spine dated | [facility] | | 02/11/2016. PROTOCOL: Coronal T2 wallpaperer helper, axial T2 wallpaperer helper, coronal 3D | [facility] | | respiratory triggered, coronal T2 [...] spine dated | | 02/11/2016.PROTOCOL: Coronal T2 wallpaperer helper, axial T2 wallpaperer helper, coronal 3D respiratory | | triggered,coronal T2 [...] A few more small subcentimeter | | T8udgqndwvnso cyst are seen within the left kidney [...] [address] | [place] | [phone] | | [facility] | | [address] | | | - IMAGING | | | | + + + + + documented in this encounter Visit Diagnoses + + | Diagnosis | + + | Bile duct abnormality Unspecified disorder of biliary tract | + + documented in this encounter"
--- OUTSIDE RECORDS SUMMARY | ~2020-02-28 | XMS | Encounter Summary ---
Demographics + + + | Address | [address] | | | [place] [address] | + + + | Home Phone [...] Team Providers + +------+ + | Care Interventional Physiatrist Name | Role | Phone | + [...] Hyper | MD Malcom | [address] | | | | | reflexia | [address] | [place], | | | | | Abnormal | [address] | [place] | | | | | gait | [address] | [address] | | | | | Procedures | [place], [place] | Phone: | | | | | MRI Cervical | [id number] | [phone] | | | | | Spine wo | Phone: | Fax: | | | | | Contrast | [phone] | [phone] | | | | | | Fax: | | | | | | | [phone] | | +--------+--------+ + + + + [...] [address] | [address] [place], | Abnormal gait | | | | [place] | [place] [address] | | | | | [address] | [phone] | | | | | [phone] | | | +--------+ + + + [...] | | | | | [place] [address] | | | | | | [phone] | | | | | | | [...]
--- OUTSIDE RECORDS SUMMARY | ~2020-02-28 | XMS | Encounter Summary ---
Demographics + + + | Address | [address] | | | [place] [address] | + + + | Home Phone [...] Team Providers + +------+ + | Care Parking Lot Supervisor Name | Role | Phone | [...] Other | | 2020 | | NEUROSCIENCE BRONX | [address] [facility] | | | | | [address] | [place] [address] | | | | | JESSICA [address]ASSAN | [phone] | | | | | [place], [place] | | | | | | [address] | | | | | | [phone] | | | +--------+ + + + [...] Miscellaneous Notes Telephone Encounter - Deysi Villa, Parachute Marker - 12/23/2019 11:14 AM [facility] lled and [...] [address] | | | | | | [place] [address] | | | | | | [phone] | | | | | | | | +--------+---------+ + + + documented as of this encounter Visit Diagnoses Not on filedocumented in this encounter"
--- OUTSIDE RECORDS SUMMARY | ~2020-02-28 | XMS | Encounter Summary ---
Demographics + + + | Address | [address] | | | [place] [address] | + + + | Home Phone [...] Team Providers + +------+ + | Care Attendant Coin Operated Laundry Name | Role | Phone | + [...] Appointment | | 2018 | | [facility] | Rig Supervisor | | | | | [place] | | | | | | [address] | | | | | | [phone] | | | +--------+ + + + [...] Miscellaneous Notes Telephone Encounter - Yvette Michelle, Rig Supervisor - 03/16/2019 8:35 AM [facility] for p atient to call back. Dr. [...] [address] | | | | | | [place] [address] | | | | | | [phone] | | | | | | | | +--------+---------+ + + + documented as of this encounter Visit Diagnoses Not on filedocumented in this encounter"
--- OUTSIDE RECORDS SUMMARY | ~2020-02-28 | XMS | Encounter Summary ---
Demographics + + + | Address | [address] | | | [place] [address] | + + + | Home Phone [...] Author | [facility] | | | and [place] | + + + | Organization | [facility] | | | [...] Team Providers + +------+ + | Care Ramp And Cargo Supervisor Name | Role | Phone | [...] | | | | region, with | [place], | [address] | | | | | neurogenic | [place] [address] | [place], | | | | | claudication | Phone: | [place] | | | | | | [phone] | [address] | | | | | | Fax: | Phone: | | | | | | [phone] | [phone] | | | | | | | Fax: | | | | | | | [phone] | + + + + + + + Reason for Visit + +--------+ + | Reason | Onset | Comments | | | Date | | + +--------+ + | Referral | 05/ | | | | 2020 | | + +--------+ + Encounter Details +--------+ + + + + | Date | Type | Department | Care Team | Description | +--------+ + + + + | // | Telephone | [facility] | Mark [place] | Referral | | 2020 | | [address] [address] | MD Alaina [address] | | | | | [address] [place], [place] | [address] | | | | | [address] | [place] [address] | | | | | [phone] | [phone] | | | | | | | [...] this encounter Miscellaneous Notes Telephone Encounter - Silva Duffy - 10/18/2019 3:10 PM PDTPatient calling to request a referral to a medical program specialist. She is okay with coming to [facility]. documented in this encounter Plan of Treatment +--------+---------+ + + + | Date | Type | Specialty | Care Team | Description | +--------+---------+ + + + | 05/17/ | Office | Cardiology | Jeniffer Haines | | | 2019 | Visit | | [address] | | | | | | [place] | | | | | | [place] [address] | | | | | | [phone] | | | | | | | | +--------+---------+ + + + + + +--------+ + + | Name | Type | Priori | Associated Diagnoses | Order Schedule | | | | ty | | | + + +--------+ + + | Pain Referral for | Outpatient | Routin | Spinal stenosis, | Ordered: 10/19/2019 | | Spine | Referral | e | lumbar region, with | | | | | | neurogenic | | | | | | claudication | | + + +--------+ + + documented as of this encounter Visit Diagnoses + + | Diagnosis | + + | Spinal stenosis, lumbar region, with neurogenic claudication - Primary | + + documented in this encounter"
--- OUTSIDE RECORDS SUMMARY | ~2020-02-28 | XMS | Encounter Summary ---
Demographics + + + | Address | [address] | | | [place] [address] | + + + | Home Phone [...] Providers + +------+ + | Care Parking Inspector Name | Role | Phone | [...] + + | 01/01/ | Telephone | [facility] | Sam Samuels DO | Appointment | | 2019 | | [facility]TH[facility] | [address] | | | | | MEDICINE PAIN [address] | [place] [address] | | | | | [address] [place], | [phone] | | | | | [place] [address] | | | | | | [phone] | | | +--------+ + + + [...] Miscellaneous Notes Telephone Encounter - Suha Casillas, Desk Maker - [facility]02/2020 3[facility]36 [facility] week [facility]/u appointment [...] | | | | | [place] [address] | | | | | | [phone] | | | | | | | | +--------+---------+ + + + documented as of this encounter Visit Diagnoses Not on filedocumented in this encounter"
--- OUTSIDE RECORDS SUMMARY | ~2020-02-28 | XMS | Encounter Summary ---
Demographics + + + | Address | [address] | | | [place] [address] | + + + | Home Phone [...] Team Providers + +------+ + | Care Gas Plant Worker Name | Role | Phone | [...] | 03/29/19) | | | | BLVD [place], [place] | [place] [address] | | | | | [address] | [place] [address] | | | | | [phone] | [phone] | | | | | | | [...] post operative issues and was seen/treated in [place]. Daughter states that she attempted to call [...] [address] | | | | | | [place] [address] | | | | | | [phone] | | | | | | | | +--------+---------+ + + + documented as of this encounter Visit Diagnoses Not on filedocumented in this encounter"
--- OUTSIDE RECORDS SUMMARY | ~2020-02-28 | XMS | Encounter Summary ---
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 | | 03/31/ | | [place], [place] | [place] [address] | left hip | | 2019 | | [address] | [phone] | | | | | [phone] | | | +--------+ + + + [...] disease), lumbar 02/04/2016 Diabetes type 2, controlled ([facility]) Full dentures upper & lower GERD (gastroesophageal reflux disease) HTN (hypertension) Hyperlipidemia Hypothyroidism Macular degeneration Other intervertebral disc displacement, lumbar region Peripheral neuropathy Pneumonia 2005 Skin cancer Spondylolisthesis at L4-L5 level 02/04/2016 Stress incontinence in female Type 2 diabetes mellitus ([facility]) Past Surgical History: Procedure Laterality Date CHOLECYSTECTOMY COLONOSCOPY 2003; 2009; 2011 polyp's removed CYSTOCELE REPAIR 1971 ERCP N/A 09/26/2016 Procedure: ERCP; Surgeon: Gregor Mccord MD; Location: [facility] ERCP N/A 10/14/2016 Procedure: ERCP w/ stent pull; Surgeon: Gregor Mccord MD; Location: [facility] HARDWARE REMOVAL Left 03/29/2019 Procedure: REMOVE HARDWARE LOWER EXTREMITY-HIP; Surgeon: Mark [place] MD; [place] [facility] [...] Orozco PA-C [address] [place] [address] [facility] [address] In 2 weeks Discharge Medications Changed Medications [...] | | | | 0 | | ([facility] [employer]) | | | | | | | MISC | | | | | | + + + +---------+ + + | Dorset-3 Fatty | Take 1 tablet by | [...] 4 Handrail Location: both sides Level of Steele: stand by assist Assistive Device: 2 rails [...] throughout activities and motivated each other thro [facility] discussion of goals/plans after discharge. Educated pt [...] LTG Status new at 03/29/2019 1246 LTG Steele Level modified independent at 03/29/2019 1246 LTG Assistive Device none at 03/29/2019 1246 All Transfers Goal Most Recent Value LTG Status new at 03/29/2019 1246 LTG Steele Level stand by assist at 03/29/2019 1246 LTG Assistive Device 2 wheeled walker (FWW) at 03/29/2019 1246 Stair Goal Most Recent Value LTG Status new at 03/29/2019 1246 LTG Steele Level contact guard assist at 03/29/2019 1246 LTG Assistive Device 2 rails at 03/29/2019 1246 LTG Number of Stairs 5 at 03/29/2019 1246 lan of Care - Arias Villar, EXERCISER - 03/31/2019 8:57 AM PDT Physical Therapy [...] oriented x 4 Transfers Sit-Stand, Level of Steele: stand by assist Stand-Sit, Level of Steele: stand by assist Nou-Gmmsk-Wpr, Assistive Device: 2 wheeled walker (FWW) Safety Issues: stands too far from assistive device Impairments: ROM decreased, strength decreased Gait Level of Steele: stand by assist Assistive Device: 2 wheeled [...] LTG Status new at 03/29/2019 1246 LTG Steele Level modified independent at 03/29/2019 1246 LTG Assistive Device none at 03/29/2019 1246 All Transfers Goal Most Recent Value LTG Status new at 03/29/2019 1246 LTG Steele Level stand by assist at 03/29/2019 1246 LTG Assistive Device 2 wheeled walker (FWW) at 03/29/2019 1246 Stair Goal Most Recent Value LTG Status new at 03/29/2019 1246 LTG Steele Level contact guard assist at 03/29/2019 1246 [...] Recommendations: 2 wheeled walker (FWW), sock aide, ibm websphere portal developer, long handled sponge Barriers to community-based discharge [...] washed hands at sink Grooming, Level of Steele: independent Assistive Device: none Grooming Assess/Train, Position: supported standing Grooming Impairments: impaired balance Bathing Upper body dressing donned shirt UB Dressing, Level of Steele: set up required Assistive Device: none UB Dressing Assess/Train, Position: sitting UB Dressing Impairments: impaired balance Lower body dressing donned pants LB Dressing, Level of Steele: minimal assist (75% patient effort), verbal cues requir ed Assistive Device: ibm websphere portal developer LB Dressing Assess/Train, Position: sitting LB Dressing Impairments: ROM decreased, strength decreased, impaired balance Toileting pt urinated in toilet Toileting, Level of Steele: stand by assist Assistive Device: grab bar Toileting Assess/Train, Position: sitting Toileting Impairments: strength decreased, impaired balance IADLs FUNCTIONAL MOBILITY Bed Mobility Transfers Sit-Stand, Level of Steele: contact guard assist, verbal cues required Stand-Sit, Level of Steele: contact guard assist, verbal cues required [id number]-Idq, Assistive Device: 2 wheeled walker (FWW) Toilet, Level of Steele: contact guard assist, verbal cues required Toilet, Assistive Device: grab bars, 2 wheeled walker (FWW) Walk-in shower, Level of Steele: contact guard assist, verbal cues required Walk-in [...] Value STG Status new at 03/30/2019654 STG Steele Level set up required at 03/30/2019654 STG Adaptive Equipment ibm websphere portal developer, shoe horn, long handled, sock-aid at 03/30/2019654 [...] oriented x 4 Transfers Sit-Stand, Level of Steele: minimal assist (75% patient effort) Stand-Sit, Level of Steele: minimal assist (75% patient effort) Hlo-Flqhx-Hfu, Assistive Device: 2 wheeled walker (FWW) Safety Issues: stands too far from assistive device Impairments: strength decreased Gait Level of Steele: stand by assist, verbal cues required Assistive [...] LTG Status new at 03/29/2019 1246 LTG Steele Level modified independent at 03/29/2019 1246 LTG Assistive Device none at 03/29/2019 1246 All Transfers Goal Most Recent Value LTG Status new at 03/29/2019 1246 LTG Steele Level stand by assist at 03/29/2019 1246 LTG Assistive Device 2 wheeled walker (FWW) at 03/29/2019 1246 Stair Goal Most Recent Value LTG Status new at 03/29/2019 1246 LTG Steele Level contact guard assist at 03/29/2019 1246 LTG Assistive Device 2 rails at 03/29/2019 1246 LTG Number of Stairs 5 at 03/29/2019 1246 lan of Darby Duarte RN - 03/30/2019 7:10 AM PDT Problem: Postoperative Urinary Retention (Hip Arthroplasty) Goal: Effective Urinary Elimination Intervention: Monitor and Manage Urinary Retention Note: Truj[place] placed on night manager for urinary retention. Will continue to assess and remove when ready lan of Viv Ley, OT - 03/30/2019 6:55 AM PDT [facility] Occupational Therapy Initial Evaluation Note Recommended discharge disposition: home with assist, shelter facility Post discharge occupational therapy recommendation: family [...] assistance. If this is not possible, a shelter facility would be good to help build [...] b bars, long handled sponge, raised toilet, ibm websphere portal developer Prior Functional Level Comment: Independent with all [...] cares and washing face. Grooming, Level of Steele: set up required Assistive Device: none Grooming Assess/Train, Position: standing Grooming Impairments: pain(fatigue) Upper Body Dressing Assessment/Training UB Dressing Assess/Train, Comment: Pt able to don bra and shirt while seated EOB. UB Dressing, Level of Steele: set up required Assistive Device: none UB Dressing Assess/Train, Position: sitting UB Dressing Impairments: pain Lower Body Dressing Assessment/Training LB Dressing Assess/Train, Comment: Pt able to don pants and socks while seated EOB. LB Dressing, Level of Steele: minimal assist (75% patient effort) Assistive Device: ibm websphere portal developer, sock-aid LB Dressing Assess/Train, Position: sitting LB Dressing Impairments: pain, strength decreased Toileting Assessment/Training Toileting Assess/Train, Comment: Pt able to sit down for bowel movement. Toileting, Level of Steele: stand by assist Assistive Device: grab bar Toileting Assess/Train, Position: sitting Toileting Impairments: pain Bed Mobility Additional Documentation: scooting/bridging, supine to/from sit, sidelying to/from sit Assistive Device: bed rails, HOB elevated Scoot/Bridge, Level of Steele: stand by assist Supine to Sit, Level of Steele: moderate assist (50% patient effort) Sidelying to Sit, Level of Steele: stand by assist Safety Issues: decreased use of arms for pushing/pulling, impaired trunk control for bed mo bility Impairments: strength decreased, postural control impaired, pain Transfers Additional Documentation: bed to/from chair, sit to/from stand, toilet Bed-Chair, Level of Steele: stand by assist Uqj-Kwabw-Zfq, Assistive Device: 2 wheeled walker (FWW), gait belt Sit-Stand, Level of Steele: stand by assist Stand-Sit, Level of Steele: stand by assist Wep-Ribgg-Kcj, Assistive Device: 2 wheeled walker (FWW) Toilet, Level of Steele: stand by assist Toilet, Assistive Device: grab [...] Value STG Status new at 03/30/2019654 STG Steele Level set up required at 03/30/2019654 STG Adaptive Equipment ibm websphere portal developer, shoe horn, long handled, sock-aid at 03/30/2019654 [...] for signs of infection. Pain assessments per [facility] policy. lan of Darby Patel RN [...] toilet, raised toilet seat, accessible to walker, [facility]. Functional Level Prior Transferring: independent Ambulation: independent [...] HOB elevated Supine to Sit, Level of Steele: stand by assist, verbal cues required Sit to Supine, Level of Steele: stand by assist, verbal cues required Impairments: ROM decreased Transfers Additional Documentation: sit to/from stand Sit-Stand, Level of Steele: moderate assist (50% patient effort), verbal cues require d Stand-Sit, Level of Steele: stand by assist, verbal cues required Heq-Rmwqr-Sly, Assistive Device: 2 wheeled walker (FWW) Maintain Weight Bearing Status: able to maintain weight bearing status Impairments: ROM decreased Gait Level of Steele: stand by assist Assistive Device: 2 wheeled [...] LTG Status new at 03/29/2019 1246 LTG Steele Level modified independent at 03/29/2019 1246 LTG Assistive Device none at 03/29/2019 1246 All Transfers Goal Most Recent Value LTG Status new at 03/29/2019 1246 LTG Steele Level stand by assist at 03/29/2019 1246 LTG Assistive Device 2 wheeled walker (FWW) at 03/29/2019 1246 Stair Goal Most Recent Value LTG Status new at 03/29/2019 1246 LTG Steele Level contact guard assist at 03/29/2019 1246 LTG Assistive Device 2 rails at 03/29/2019 1246 LTG Number of Stairs 5 at 03/29/2019 1246 p Note - Mark [place] MD - 03/29/2019 9:12 AM [facility] Service: Orthopedic Surgery Operative Note Date of Procedure: 03/29/2019 Surgeon: Mark [place] MD FRONT DESK ASSOCIATE: Gus Orozco PA-C; Please note that assistance was necessary for the purpose o f patient positioning, prepping, draping, retraction, reduction, implant placement, and woun d closure. 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 The patient completed [...] signed by: Mark [place] MD, 03/29/2019 7:19 [facility] Mark [place] MD at [...] [address] | | | | | | [place] [address] | | | | | | [phone] | | | | | | | [...] POC | performed at [facility] | | LABORATORY | | | | [address];[place] | | | | | | [address] | | | | + + + + + + + + | Specimen | + + | | + + + + + + + | Performing | Address | City/State/Zipcode | Phone Number | | Organization | | | | + + + + + | [facility] | [address] | [place] [address] | [phone] | + + + + + POC Glucose (03/31/2019 7:23 AM PDT) + + + + + + | Component | Value | Ref Range | Performed | Pathologist | | | | | At | Signature | + + + + + + | Glucose, | 122 (H)Comment: Testing | 65 - 99 mg/dL | [facility] | | | POC | performed at [facility] | | LABORATORY | | | | [address];[place] | | | | | | [address] | | | | + + + + + + + + | Specimen | + + | | + + + + + + + | Performing | Address | City/State/Zipcode | Phone Number | | Organization | | | | + + + + + | [facility] | [address] | [place] [address] | [phone] | + + + + + POC Glucose (03/30/2019 8:57 PM PDT) + + + + + + | Component | Value | Ref Range | Performed | Pathologist | | | | | At | Signature | + + + + + + | Glucose, | 98Comment: Testing | 65 - 99 mg/dL | [facility] | | | POC | performed at [facility];[address] | | LABORATORY | | | | [address];[place], [place] | | | | | | [address] | | | | + + + + + + + + | Specimen | + + | | + + + + + + + | Performing | Address | City/State/Zipcode | Phone Number | | Organization | | | | + + + + + | [facility] | [address] | [place] [address] | [phone] | + + + + + Hemoglobin [...] | | performed at [facility];[address] | | LABORATORY | | | | [address];[place] | | | | | | [address] | | | | + + + + + + + + | Specimen | + + | Blood | + + + + + + + | Performing | Address | City/State/Zipcode | Phone Number | | Organization | | | | + + + + + | [facility] | [address] | [place] [address] | [phone] | + + + + + POC Glucose (03/30/2019 3:23 AM PDT) + + + + + + | Component | Value | Ref Range | Performed | Pathologist | | | | | At | Signature | + + + + + + | Glucose, | 147 (H)Comment: Testing | 65 - 99 mg/dL | [facility] | | | POC | performed at [facility];[address] | | LABORATORY | | | | [address];[place], [place] | | | | | | [address] | | | | + + + + + + + + | Specimen | + + | | + + + + + + + | Performing | Address | City/State/Zipcode | Phone Number | | Organization | | | | + + + + + | [facility] | [address] | [place] [address] | [phone] | + + + + + POC [...] POC | performed at [facility];[address] | | LABORATORY | | | | [address];[place], [place] | | | | | | [address] | | | | + + + + + + + + | Specimen | + + | | + + + + + + + | Performing | Address | City/State/Zipcode | Phone Number | | Organization | | | | + + + + + | [facility] | [address] | [place] [address] | [phone] | + + + + + XR [...] POC | performed at [facility];[address] | | LABORATORY | | | | [address];[place], [place] | | | | | | [address] | | | | + + + + + + + + | Specimen | + + | | + + + + + + + | Performing | Address | City/State/Zipcode | Phone Number | | Organization | | | | + + + + + | [facility] | [address] | [place] [address] | [phone] | + + + + + Type [...] + + + | [facility] | [id number] | | [facility] | | | | | | LABORATORY | | + + + + + + | [facility] | Testing performed at | | [facility] | | | | [address] | LAB[address]AT[address] | | | [address];[place] [address] | | | | + + + + + + + + | Specimen | + + | Blood | + + + + + + + | Performing | Address | City/State/Zipcode | Phone Number | | Organization | | | | + + + + + | [facility] | [address] | [place] [address] | [phone] | + + + + + POC Glucose (03/29/2019 6:42 AM PDT) + + + + + + | Component | Value | Ref Range | Performed | Pathologist | | | | | At | Signature | + + + + + + | Glucose, | 96Comment: Testing | 65 - 99 mg/dL | [facility] | | | POC | performed at [facility];[address] | | LABORATORY | | | | [address];[place] | | | | | | [address] | | | | + + + + + + + + | Specimen | + + | | + + + + + + + | Performing | Address | City/State/Zipcode | Phone Number | | Organization | | | | + + + + + | [facility] | [address] | [place] [address] | [phone] | + + + + + documented [...] HOURS PRN, Itching, Starting | | | [facility] 03/29/19 at 1417, Oral route | | [...] AM PDT | | | | | Thu03/29/19 at 1445, Do not cut | | [...] +-------+ +-------+---+---+ +-------+ +-------+---+---+ | Given | [address] | 50 mg | | | | | 19 7:27 | | | | | | PM PDT | | | | +-------+ +-------+---+---+ | Given | 20 | 50 mg | | | | | 19 8:57 | | | | | | AM PDT | | | | +-------+ +-------+---+---+ +---+---+ | | | +---+---+ documented in this encounter
--- OUTSIDE RECORDS SUMMARY | ~2020-02-28 | XMS | Encounter Summary ---
Demographics + + + | Address | [address] | | | [place] [address] | + + + | Home Phone [...] Providers + +------+ + | Care Director Digital Sales Name | Role | Phone | + +------+ + | Susan Leos | PCP | | | [employer] | | | + +------+ + Encounter Details +--------+ + + + + | Date | Type | Department | Care Team | Description | +--------+ + + + + | 01/31/ | Abstract | [facility] | Ray, | | | 2015 | | PHYSIATRY [address] | KYA [address] | | | | | [address] | [address] | | | | | [place] | [place] [address] | | | | | [address] | [phone] | | | | | [phone] | | | +--------+ + + + [...] [address] | | | | | | [place] [address] | | | | | | [phone] | | | | | | | | +--------+---------+ + + + documented as of this encounter Visit Diagnoses Not on filedocumented in this encounter"
--- OUTSIDE RECORDS SUMMARY | ~2020-02-28 | XMS | Encounter Summary ---
Demographics + + + | Address | [address] | | | [place] [address] | + + + | Home Phone [...] Author | [facility] | | | and [place] | + + + | Organization | [facility] | | | [...] Team Providers + +------+ + | Care Network Project Manager Name | Role | Phone [...] | | | | | | | RI ERCP DX | | | | | | | COLLECTION | | | | | | | SPECIMEN | | | | | | | BRUSHING/WAS | | | | | | | [place] | | | | | | | [...] CTR [facility] INTRA OP | [address], [place] | | | | | [address] | [address] [place], [place] | | | | | [place], [place] | [address] | | | | | [address] | | | | | | [phone] | | | +--------+---------+ + + + [...] the test. This includes: All prescription medicines Tskt-gmd-tfoxryt medicines that don't need a prescription Any [...] infection or torn bowel. Date Last Reviewed: 12/01/201419992232-5360 [employer]. [address] [place] [address]. All righ ts reserved. This information is [...] be awakened Date Last Reviewed: 04/01/2016 [employer]. [address] [place] [address]. All righ ts reserved. 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 Avoiding fatty foods such as English Ralph, hamburgers, carrera, ham and pork products, wi [...] | | | | | [place] [address] | | | | | | [phone] | | | | | | | [...] 10/14/2016 12:25 | PROVATION | | PMMRN: [id number] #: [id number] of : 1935dmit | | | Type: AmbulatoryAge: 80Room: [facility] 01Gender: FemaleNote Status: | [...] the anesthesiologist and | | | the cardiac technician in the endoscopy suite. Mental Status [...] was visible on the | | | pot room tapper film. The esophagus was successfully intubated under [...] Scope In: 12:40:12 PMScope Out: 12:55:03 PM [place] | | | [facility], [address] [place] [address] | | | [phone] | | | - Continue present medications. | | | - Return to primary care physician as previously scheduled. | | | - Telephone GI clinic if symptomatic. | | |Gregor Mccrod MD | | |10/14/2016 1:11:31 PM | [...] |Scope Out: 12:55:03 PM | | | [facility], [address] [place] [address] | | | [phone] | | + + -+ + +---------+ [...]
--- OUTSIDE RECORDS SUMMARY | ~2020-02-28 | XMS | Encounter Summary ---
Demographics + + + | Address | [address] | | | [place] [address] | + + + | Home Phone [...] Team Providers + +------+ + | Care Cinetechnician Name | Role | Phone | + [...] + | 03/29/ | Surgery | [facility] | Mark [place] | Posterior Total Hip | | 2019 | | [facility] | MD Alain[address] | Arthroplasty | | | | OPERATING ROOM [address] | [address] | | | | | [address] | [place] [address] | | | | | [place], [place] | [phone] | | | | | [address] | | | | | | [phone] | | | +--------+---------+ + + + [...] + + + | Blood Pressure | 136/59 | 03/29/2019 9:30 AM | | | | | PDT | | + + + + + | Pulse | 52 | 03/29/2019 9:30 AM | | | | | PDT | | + + + + + | Temperature | 36.2 C (97.2 F) | 03/29/2019 9:19 AM | | | | | PDT | | + + + + + | Respiratory Rate | 10 | 03/29/2019 9:30 AM | | | | | PDT | | + + + + + | Oxygen Saturation | 96% | 03/29/2019 9:30 AM | | | | | PDT [...] 02/04/2016 Diabetes type 2, controlled ([facility]) Full dentures upper & lower GERD (gastroesophageal reflux disease) HTN (hypertension) Hyperlipidemia Hypothyroidism Macular degeneration Other intervertebral disc displacement, lumbar region Peripheral neuropathy Pneumonia 2004 Skin cancer Spondylolisthesis at L4-L5 level 02/04/2016 Stress incontinence in female Type 2 diabetes mellitus ([facility]) Past Surgical History: Procedure Laterality Date CHOLECYSTECTOMY COLONOSCOPY 2003; 2009; 2011 polyp's removed CYSTOCELE REPAIR 1971 ERCP N/A 09/26/2016 Procedure: ERCP; Surgeon: Gregor Mccord MD; Location: [facility] PROC[facility]URE UN[facility] ERCP N/A 10/14/2016 Procedure: ERCP w/ stent pull; Surgeon: Gregor Mccord MD; Location: [facility] PROC[facility] RE [facility] HARDWARE REMOVAL Left 03/29/2019 Procedure: REMOVE HARDWARE LOWER EXTREMITY-HIP; Surgeon: Mark [place] MD; Location : [facility] MAIN OR PARTIAL HYSTERECTOMY 1972 RECTOCELE REPAIR [...] Code Follow up: Gus Orozco PA-C [address] [address] In 2 weeks Discharge Medications Changed Medications [...] | | | | 0 | | ([facility]) | | | | | | | MISC | | | | | | + + + +---------+ + + | [place]- Fatty | Take 1 tablet by | [...] might be different fr om the original. [facility] Progress Note Primary Care Physician: [...] 4 Handrail Location: both sides Level of Reagan: stand by assist Assistive Device: 2 rails [...] throughout activities and motivated each other thro [facility] discussion of goals/plans after discharge. Educated pt [...] LTG Status new at 03/29/2019 1246 LTG Reagan Level modified independent at 03/29/2019 1246 LTG Assistive Device none at 03/29/2019 1246 All Transfers Goal Most Recent Value LTG Status new at 03/29/2019 1246 LTG Reagan Level stand by assist at 03/29/2019 1246 LTG Assistive Device 2 wheeled walker (FWW) at 03/29/2019 1246 Stair Goal Most Recent Value LTG Status new at 03/29/2019 1246 LTG Reagan Level contact guard assist at 03/29/2019 1246 LTG Assistive Device 2 rails at 03/29/2019 1246 LTG Number of Stairs 5 at 03/29/2019 1246 lan of Care - Arias Villar, SALES CENTER ASSOCIATE - 03/31/2019 8:57 AM PDT Physical Therapy [...] oriented x 4 Transfers Sit-Stand, Level of Reagan: stand by assist Stand-Sit, Level of Reagan: stand by assist Xtz-Nrrqn-Afp, Assistive Device: 2 wheeled walker (FWW) Safety Issues: stands too far from assistive device Impairments: ROM decreased, strength decreased Gait Level of Reagan: stand by assist Assistive Device: 2 wheeled [...] LTG Status new at 03/29/2019 1246 LTG Reagan Level modified independent at 03/29/2019 1246 LTG Assistive Device none at 03/29/2019 1246 All Transfers Goal Most Recent Value LTG Status new at 03/29/2019 1246 LTG Reagan Level stand by assist at 03/29/2019 1246 LTG Assistive Device 2 wheeled walker (FWW) at 03/29/2019 1246 Stair Goal Most Recent Value LTG Status new at 03/29/2019 1246 LTG Reagan Level contact guard assist at 03/29/2019 1246 [...] Recommendations: 2 wheeled walker (FWW), sock aide, physician specialist, long handled sponge Barriers to community-based discharge [...] washed hands at sink Grooming, Level of Reagan: independent Assistive Device: none Grooming Assess/Train, Position: supported standing Grooming Impairments: impaired balance Bathing Upper body dressing donned shirt UB Dressing, Level of Reagan: set up required Assistive Device: none UB Dressing Assess/Train, Position: sitting UB Dressing Impairments: impaired balance Lower body dressing donned pants LB Dressing, Level of Reagan: minimal assist (75% patient effort), verbal cues requir ed Assistive Device: physician specialist LB Dressing Assess/Train, Position: sitting LB Dressing Impairments: ROM decreased, strength decreased, impaired balance Toileting pt urinated in toilet Toileting, Level of Reagan: stand by assist Assistive Device: grab bar Toileting Assess/Train, Position: sitting Toileting Impairments: strength decreased, impaired balance IADLs FUNCTIONAL MOBILITY Bed Mobility Transfers Sit-Stand, Level of Reagan: contact guard assist, verbal cues required Stand-Sit, Level of Reagan: contact guard assist, verbal cues required Lip-Hazvb-Dmi, Assistive Device: 2 wheeled walker (FWW) Toilet, Level of Reagan: contact guard assist, verbal cues required Toilet, Assistive Device: grab bars, 2 wheeled walker (FWW) Walk-in shower, Level of Reagan: contact guard assist, verbal cues required Walk-in [...] Value STG Review Date 04/09/19 at 03/30/2019 0655 LB Dressing Goal Most Recent Value STG Status new at 03/30/2019 06 STG Reagan Level set up required at 03/30/2019 06 STG Adaptive Equipment physician specialist, shoe horn, long handled, sock-aid at 03/30/2019 06 STG Comments Pt will don underwear and pants using AE as necessary while maintaing hip pre cautions. at 03/30/2019 06 Additional Goals #1 OT Most Recent Value STG Status new at 03/30/2019 06 STG Pt will go from supine to sitting mod I using hand rails and HOB as needed while maint aing hip precautions, at 03/30/2019 06 Documentation and evaluation conducted by Alison Jarrett, [...] plan of care and goals. lan of [facility] Stephanie Fung RN - 03/31/2019 6:30 AM PDTNoc chart check complete. lan of Stephanie Patel RN - 03/30/20 11:07 PM PDT Problem: Adult Inpatient Plan [...] oriented x 4 Transfers Sit-Stand, Level of Reagan: minimal assist (75% patient effort) Stand-Sit, Level of Reagan: minimal assist (75% patient effort) Eel-Htbvd-Git, Assistive Device: 2 wheeled walker (FWW) Safety Issues: stands too far from assistive device Impairments: strength decreased Gait Level of Reagan: stand by assist, verbal cues required Assistive [...] LTG Status new at 03/29/2019 1246 LTG Reagan Level modified independent at 03/29/2019 1246 LTG Assistive Device none at 03/29/2019 1246 All Transfers Goal Most Recent Value LTG Status new at 03/29/2019 1246 LTG Reagan Level stand by assist at 03/29/2019 1246 LTG Assistive Device 2 wheeled walker (FWW) at 03/29/2019 1246 Stair Goal Most Recent Value LTG Status new at 03/29/2019 1246 LTG Reagan Level contact guard assist at 03/29/2019 1246 LTG Assistive Device 2 rails at 03/29/2019 1246 LTG Number of Stairs 5 at 03/29/2019 1246 lan of Darby Duarte RN - 03/30/2019 7:10 AM PDT Problem: Postoperative Urinary Retention (Hip Arthroplasty) Goal: Effective Urinary Elimination Intervention: Monitor and Manage Urinary Retention Note: [place] placed on steward/stewardess night for urinary retention. Will continue to assess and remove when ready lan of Viv Ley, OT - 03/30/2019 6:55 AM PDT SHOTEVAL Occupational Therapy Initial Evaluation Note Recommended discharge disposition: home with assist, care home facility Post discharge occupational therapy recommendation: family [...] assistance. If this is not possible, a care home facility would be good to help build [...] at toilet, raised toilet seat, accessible to walker [facility]. Functional Level Prior Transferring: independent Ambulation: independent Toileting: independent Bathing: independent Dressing: independent Eating: independent Equipment Currently Used at Home: 4 wheeled walker (4WW), cane, straight, single point, gra b bars, long handled sponge, raised toilet, physician specialist Prior Functional Level Comment: Independent with all [...] cares and washing face. Grooming, Level of Reagan: set up required Assistive Device: none Grooming Assess/Train, Position: standing Grooming Impairments: pain(fatigue) Upper Body Dressing Assessment/Training UB Dressing Assess/Train, Comment: Pt able to don bra and shirt while seated EOB. UB Dressing, Level of Reagan: set up required Assistive Device: none UB Dressing Assess/Train, Position: sitting UB Dressing Impairments: pain Lower Body Dressing Assessment/Training LB Dressing Assess/Train, Comment: Pt able to don pants and socks while seated EOB. LB Dressing, Level of Reagan: minimal assist (75% patient effort) Assistive Device: physician specialist, sock-aid LB Dressing Assess/Train, Position: sitting LB Dressing Impairments: pain, strength decreased Toileting Assessment/Training Toileting Assess/Train, Comment: Pt able to sit down for bowel movement. Toileting, Level of Reagan: stand by assist Assistive Device: grab bar Toileting Assess/Train, Position: sitting Toileting Impairments: pain Bed Mobility Additional Documentation: scooting/bridging, supine to/from sit, sidelying to/from sit Assistive Device: bed rails, HOB elevated Scoot/Bridge, Level of Reagan: stand by assist Supine to Sit, Level of Reagan: moderate assist (50% patient effort) Sidelying to Sit, Level of Reagan: stand by assist Safety Issues: decreased use of arms for pushing/pulling, impaired trunk control for bed mo bility Impairments: strength decreased, postural control impaired, pain Transfers Additional Documentation: bed to/from chair, sit to/from stand, toilet Bed-Chair, Level of Reagan: stand by assist Shg-Xpmmg-Tup, Assistive Device: 2 wheeled walker (FWW), gait belt Sit-Stand, Level of Reagan: stand by assist Stand-Sit, Level of Reagan: stand by assist Lrt-Bhjuk-Tla, Assistive Device: 2 wheeled walker (FWW) Toilet, Level of Reagan: stand by assist Toilet, Assistive Device: grab [...] Value STG Status new at 03/30/2019654 STG Reagan Level set up required at 03/30/2019654 STG Adaptive Equipment physician specialist, shoe horn, long handled, sock-aid at 03/30/2019654 [...] toilet, raised toilet seat, accessible to walker, [facility]. Functional Level Prior Transferring: independent Ambulation: independent [...] HOB elevated Supine to Sit, Level of Reagan: stand by assist, verbal cues required Sit to Supine, Level of Reagan: stand by assist, verbal cues required Impairments: ROM decreased Transfers Additional Documentation: sit to/from stand Sit-Stand, Level of Reagan: moderate assist (50% patient effort), verbal cues require d Stand-Sit, Level of Reagan: stand by assist, verbal cues required Ikc-Obnat-Nge, Assistive Device: 2 wheeled walker (FWW) Maintain Weight Bearing Status: able to maintain weight bearing status Impairments: ROM decreased Gait Level of Reagan: stand by assist Assistive Device: 2 wheeled [...] LTG Status new at 03/29/2019 1246 LTG Reagan Level modified independent at 03/29/2019 1246 LTG Assistive Device none at 03/29/2019 1246 All Transfers Goal Most Recent Value LTG Status new at 03/29/2019 1246 LTG Reagan Level stand by assist at 03/29/2019 1246 LTG Assistive Device 2 wheeled walker (FWW) at 03/29/2019 1246 Stair Goal Most Recent Value LTG Status new at 03/29/2019 1246 LTG Reagan Level contact guard assist at 03/29/2019 1246 LTG Assistive Device 2 rails at 03/29/2019 1246 LTG Number of Stairs 5 at 03/29/2019 1246 p Note - Mark [place] MD - 03/29/2019 9:12 AM [facility] Service: Orthopedic Surgery Operative Note Date of Procedure: 03/29/2019 Surgeon: Mark [place] MD STIPPLER: Gus Orozco PA-C; Please note that assistance was necessary for the purpose o f patient positioning, prepping, draping, retraction, reduction, implant placement, and woun d closure. 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 The patient completed [...] HISTORY & PHYS ICAL UPDATE Pt. Name/Age/: November Blaed 83 y.o. 1935 Date of admission: 03/29/2019 [...] signed by: Mark [place] MD, 03/29/2019 7:19 [facility] Mark [place] MD at 7:19 AM PDTdocumented in this encounter Plan of Treatment +--------+---------+ + + + | Date | Type | Specialty | Care Team | Description | +--------+---------+ + + + | 05/17/ | Office | Cardiology | Jeniffer Haines | | | 2019 | Visit | | [address] | | | | | | [address] | | | | | | [place] [address] | | | | | | [phone] | | | | | | | [...] | | | POC | performed at [facility];[address] | | LABORATORY | | | | [address];[place], [place] | | | | | | [address] | | | | + + + + + + + + | Specimen | + + | | + + + + + + + | Performing | Address | City/State/Zipcode | Phone Number | | Organization | | | | + + + + + | [facility] | [address] | [place] [address] | [phone] | + + + + + POC Glucose (03/31/2019 7:23 AM PDT) + + + + + + | Component | Value | Ref Range | Performed | Pathologist | | | | | At | Signature | + + + + + + | Glucose, | 122 (H)Comment: Testing | 65 - 99 mg/dL | [facility] | | | POC | performed at [facility];[address] | | LABORATORY | | | | [address];[place] | | | | | | [address] | | | | + + + + + + + + | Specimen | + + | | + + + + + + + | Performing | Address | City/State/Zipcode | Phone Number | | Organization | | | | + + + + + | [facility] | [address] | [place] [address] | [phone] | + + + + + POC Glucose (03/30/2019 8:57 PM PDT) + + + + + + | Component | Value | Ref Range | Performed | Pathologist | | | | | At | Signature | + + + + + + | Glucose, | 98Comment: Testing | 65 - 99 mg/dL | [facility] | | | POC | performed at [facility];[address] | | LABORATORY | | | | [address];[place], [place] | | | | | | [address] | | | | + + + + + + + + | Specimen | + + | | + + + + + + + | Performing | Address | City/State/Zipcode | Phone Number | | Organization | | | | + + + + + | [facility] | [address] | [place] [address] | [phone] | + + + + + Hemoglobin [...] [facility] | | | | performed at [facility];[address] | | LABORATORY | | | | [address];[place] | | | | | | [address] | | | | + + + + + + + + | Specimen | + + | Blood | + + + + + + + | Performing | Address | City/State/Zipcode | Phone Number | | Organization | | | | + + + + + | [facility] | [address] | [place] [address] | [phone] | + + + + + POC Glucose (03/30/2019 3:23 AM PDT) + + + + + + | Component | Value | Ref Range | Performed | Pathologist | | | | | At | Signature | + + + + + + | Glucose, | 147 (H)Comment: Testing | 65 - 99 mg/dL | [facility] | | | POC | performed at [facility];[address] | | LABORATORY | | | | [address];[place], [place] | | | | | | [address] | | | | + + + + + + + + | Specimen | + + | | + + + + + + + | Performing | Address | City/State/Zipcode | Phone Number | | Organization | | | | + + + + + | [facility] | [address] | [place] [address] | [phone] | + + + + + POC [...] | | | POC | performed at [facility];[address] | | LABORATORY | | | | [address];[place], [place] | | | | | | [address] | | | | + + + + + + + + | Specimen | + + | | + + + + + + + | Performing | Address | City/State/Zipcode | Phone Number | | Organization | | | | + + + + + | [facility] | [address] | [place] [address] | [phone] | + + + + + XR [...] | | | POC | performed at [facility];[address] | | LABORATORY | | | | [address];[place] | | | | | | [address] | | | | + + + + + + + + | Specimen | + + | | + + + + + + + | Performing | Address | City/State/Zipcode | Phone Number | | Organization | | | | + + + + + | [facility] | [address] | [place] [address] | [phone] | + + + + + Type [...] + | Antibody | NEGATIVE | | [facility] | | | Screen | | | LABORATORY | | + + + + + + | BB BAND | [id number] | | [facility] | | | | | | LABORATORY | | + + + + + + | BB BAND | Testing performed at | | [facility] | | | | [facility];[address] LAB[address]AT[address] | | [address];[place] [address] | | | | + + + + + + + + | Specimen | + + | Blood | + + + + + + + | Performing | Address | City/State/Zipcode | Phone Number | | Organization | | | | + + + + + | [facility] | [address] [facility] | [place] [address] | [phone] | + + + + + POC Glucose (03/29/2019 6:42 AM PDT) + + + + + + | Component | Value | Ref Range | Performed | Pathologist | | | | | At | Signature | + + + + + + | Glucose, | 96Comment: Testing | 65 - 99 mg/dL | [facility] | | | POC | performed at [facility];[address] | | LABORATORY | | | | [address];[place] | | | | | | [address] | | | | + + + + + + + + | Specimen | + + | | + + + + + + + | Performing | Address | City/State/Zipcode | Phone Number | | Organization | | | | + + + + + | [facility] | [address] | [place] [address] | [phone] | + + + + + documented [...]
--- OUTSIDE RECORDS SUMMARY | ~2020-02-28 | XMS | Encounter Summary ---
Demographics + + + | Address | [address] | | | [place] [address] | + + + | Home Phone [...] Team Providers + +------+ + | Care Improvement Coordinator Name | Role | Phone | [...] [place] | | | | | | [address] | | | | | | [phone] | | | +--------+ + + + [...] [address] | | | | | | [place] [address] | | | | | | [phone] | | | | | | | | +--------+---------+ + + + documented as of this encounter Visit Diagnoses + + | Diagnosis | + + | Other screening mammogram | + + documented in this encounter"
--- OUTSIDE RECORDS SUMMARY | ~2020-02-28 | XMS | Encounter Summary ---
Demographics + + + | Address | [address] | | | [place] [address] | + + + | Home Phone [...] + + + | Author | [facility] | | | and [place] | + + + | Organization | [facility] | | [...] Providers + +------+ + | Care Staff Toxicologist Name | Role | Phone | + [...] + + | 09/26/ | Surgery | [facility] | Gregor Mccord MD | ERCP | | 2017 | | MED CTR MP INTRA OP | [address], [place] | | | | | [address] | [address] | | | | | [place] | [address] | | | | | [address] | | | | | | [phone] | | | +--------+---------+ + + + [...] or severe belly or abdominal pain Fever ifams304H (37.7C) or chills Upset stomach (nausea) and vomiting Black or tarry stools Date Last Reviewed: 11/25/201419996860-6866 [employer]. [address] [place] [address]. All righ ts reserved. 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 Avoiding fatty foods such as Azerbaijani Masury, hamburgers, carrera, ham and pork products, wi [...] the gurney. 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 She said that her family gathered around her and offered prayer la night. She is a member of [employer] and asked that the muslim be no tified of her hospitalization. She has a strong virginie and belief in prayer. Spiritual Intervention: Offered pastoral presence and encouragement. Shared prayer. 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 [employer] Spiritual Outcomes: Scarlet expressed her appreciation [...] [address] | | | | | | [place] [address] | | | | | | [phone] | | | | | | | [...] | | | | VONDA SHEPPARD MD ([id number]) | | | | | | on [...] 09/26/2016 | PROVATION | | 12:24 PMMRN: [id number] #: [id number] of : | | | 4Admit Type: AmbulatoryAge: 80Room: [facility] 01Gender: FemaleNote | | | Status: FinalizedAttending MD: MARKUS Goodrichrocedure: | | | ERCPIndications: Filling defect on intraoperative | | | cholangiogramProviders: Gregor Mccord MD, Jalyn Darden | | | ROBI Ring, Pablo Rothman, [facility], | | | Laurie Hammond, Drain Tile Press Operator, Paty Beverly | | | Michelle, Drain Tile Press Operator, Enrique Llanos MD (Anesthesia | | | [...] | | | the anesthesiologist and the ski technician in the endoscopy suite. | | [...] the procedure | | | well.Findings: A cigarette seller film of the abdomen was obtained. | [...] | | 12:39:22 PMScope Out: 1:06:[address] [facility] | | | [place], [address] [place] [address] | | | - Continue present medications. [...] |Scope Out: 1:06:30 PM | | | [facility], [address] [facility], [place], [place] | | | [address] | | + + -+ + +---------+ [...] | | | | VONDA SHEPPARD MD ([id number]) | | | | | | on [...]
--- OUTSIDE RECORDS SUMMARY | ~2020-02-28 | XMS | Encounter Summary ---
Demographics + + + | Address | [address] | | | [place] [address] | + + + | Home Phone [...] Providers + +------+ + | Care Senior Software Quality Analyst Name | Role | Phone | [...] | | | [place], [place] | [place] [address] | | | | | [address] | [phone] | | | | | [phone] | | | +--------+ + + + [...] [address] | | | | | | [place] [address] | | | | | | [phone] | | | | | | | | +--------+---------+ + + + documented as of this encounter Visit Diagnoses Not on filedocumented in this encounter"
--- OUTSIDE RECORDS SUMMARY | ~2020-02-28 | XMS | Encounter Summary ---
Demographics + + + | Address | [address] | | | [place] [address] | + + + | Home Phone [...] Team Providers + +------+ + | Care Licensed Funeral Director Name | Role | Phone | [...] | | | | | (degenerativ | [place], [place] | | | | | | e disc | [address] | | | | | | disease), | Phone: | | | | | | lumbar | [phone] | | | | | | Bilateral | Fax: | | | | | | lumbar | [phone] | | | | | | radiculopath [...] | | | [place], [place] | [place] [address] | | | | | [address] | [phone] | | | | | [phone] | | | +--------+ + + + [...] Lumbar MR I has been completed at [facility]. Images and report have been requested. documented [...] [address] | | | | | | [place] [address] | | | | | | [phone] | | | | | | | [...] +--------+ + + | AMB REFERRAL TO [facility] | Outpatient | Routin | [...]
--- OUTSIDE RECORDS SUMMARY | ~2020-02-28 | XMS | Encounter Summary ---
Demographics + + + | Address | [address] | | | [place] [address] | + + + | Home Phone [...] + | Author | [facility] | | | and [place] | + + + | Organization | [facility] | | | [...] Team Providers + +------+ + | Care Jig Operator Name | Role | Phone | [...] | | | | [address] | [place] [address] | | | | | [address] | [phone] | | | | | [place], [place] | | | | | | [address] | | | | | | [phone] | | | +--------+ + + + [...] Miscellaneous Notes Telephone Encounter - Desiree Martinez, Event Promotions Coordinator - 12/09/2019 2:34 PM PDTCalled a nereyda [...] [address] | | | | | | [place] [address] | | | | | | [phone] | | | | | | | | +--------+---------+ + + + documented as of this encounter Visit Diagnoses Not on filedocumented in this encounter"
--- OUTSIDE RECORDS SUMMARY | ~2020-02-28 | XMS | Encounter Summary ---
Demographics + + + | Address | [address] | | | [place] [address] | + + + | Home Phone [...] | Author | [facility] | | | and [place] | + + + | Organization | [facility] | | [...] Providers + +------+ + | Care Manager Application Development Name | Role | Phone | [...] [place] | | | | | | [address] | | | | | | [phone] | | | +--------+ + + + [...] | | | | | [place] [address] | | | | | | [phone] | | | | | | | | +--------+---------+ + + + documented as of this encounter Visit Diagnoses Not on filedocumented in this encounter"
--- OUTSIDE RECORDS SUMMARY | ~2020-02-28 | XMS | Encounter Summary ---
Demographics + + + | Address | [address] | | | [place] [address] | + + + | Home Phone [...] Team Providers + +------+ + | Care Inventory Control Assistant Name | Role | Phone | [...] | | | | | joint | [place], | [place], [place] | | | | | replacement | [place] [address] | [address] | | | | | surgery | Phone: | Phone: | | | | | | [phone] | [phone] | | | | | | Fax: | Fax: | | | | | | [phone] | [phone] | +--------+ + + + + + [...] | | | [facility] | John, | [place], [place] | | | | | Procedures | ID | [id number] Phone: | | | | | NEW PATIENT | [address] | [phone] | | | | | | Phone: | Fax: | | | | | | [phone] | [phone] | | | | | | Fax: | | | | | | | [phone] | | + +--------+ + + + + Encounter Details +--------+---------+ + + + | Date | Type | Department | Care Team | Description | +--------+---------+ + + + | 05/16/ | Office | [facility] | [place] | Aftercare following | | 2019 | Visit | AMY [address] | MD Alaina [address] | left hip joint | | | | BLVD [place], [place] | [address] | replacement surgery | | | | [address] | [place] [address] | (Primary Dx) | | | | [phone] | [phone] | | | | | | | [...] [address] | | | | | | [place] [address] | | | | | | [phone] | | | | | | | [...]
--- OUTSIDE RECORDS SUMMARY | ~2020-02-28 | XMS | Encounter Summary ---
Demographics + + + | Address | [address] | | | [place] [address] | + + + | Home Phone [...] Team Providers + +------+ + | Care Crop Farmers Name | Role | Phone | + [...] + + | 11/15/ | Telephone | [facility] | Jalyn Castañeda, | Other (Screened for | | 2019 | | CARDIOLOGY [place] | GROUND OPERATIONS SUPERINTENDENT | appjeronimo) | | | | [address] | | | | | | [place] | | | | | | [address] | | | | | | [phone] | | | +--------+ + + + [...] [address] | | | | | | [place] [address] | | | | | | [phone] | | | | | | | | +--------+---------+ + + + documented as of this encounter Visit Diagnoses Not on filedocumented in this encounter"
--- OUTSIDE RECORDS SUMMARY | ~2020-02-28 | XMS | Encounter Summary ---
Demographics + + + | Address | [address] | | | [place] [address] | + + + | Home Phone [...] | [facility] | | | and [...] Team Providers + +------+ + | Care Field Marketing Team Leader Name | Role | Phone | + [...] 2017 | | GASTROENTEROLOGY | [address], [place] | | | | | [address] [place] | [address] [place], [place] | | | | | [address] [place], [place] | [address] | | | | | [address] | | | | | | [phone] | | | +--------+ + + + [...] [address] | | | | | | [place] [address] | | | | | | [phone] | | | | | | | | +--------+---------+ + + + documented as of this encounter Visit Diagnoses Not on filedocumented in this encounter"
--- OUTSIDE RECORDS SUMMARY | ~2020-02-28 | XMS | Encounter Summary ---
Demographics + + + | Address | [address] | | | [place] [address] | + + + | Home Phone [...] | [facility] | | | and [place] | + + + | Organization | [facility] | | | and [...] Team Providers + +------+ + | Care Blacking Wheel Tender Name | Role | Phone | [...] + + | 11/16/ | Office | [facility] | Jeniffer Haines | Essential | | 2020 | Visit | CARDIOLOGY [place] | [address] | hypertension | | | | [address] | [place] [address] | (Primary Dx); Mixed | | | | [address] | [place] [address] | hyperlipidemia; Mild | | | | [place] | [phone] | aortic stenosis by | | | | [address] | | prior | | | | [phone] | | echocardiogram; | | | | [...] needed documented in this encounter Progress Notes Jeniffer Haines FNP - 11/17/2019 2:30 PM PDTFormatting [...] Rarely due to poor balance. Lives in [place] since 2018. 2 d aughters. Outpatient Medications [...] mg by mouth Twice daily as needed. LU-Gblyuxutml-Jcszlicrapjlkz (FOLBIC PO) Take 1 capsule by mouth [...] ( [facility]) MISC Take by mouth. 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 Aortic valve trileaflet, mildly calcific, mild [...] ST-T wa ve abnormalities. Rate 65 bpm, UT 172 ms, QRS 84 ms, QTC 428 ms, tracing personally reviewe d by oh LABS Labs: 05/11/2019 CMP: Sodium 133, potassium [...] continuity of care purp ose Wilson CAGLE [facility] Cardiology documented in t his encounter Plan of Treatment +--------+---------+ + + + | Date | Type | Specialty | Care Team | Description | +--------+---------+ + + + | 05/17/ | Office | Cardiology | Jeniffer Haines | | 2019 | Visit | | [address] | | | | | | [address] | | | | | | [place] [address] | | | | | | [phone] | | | | | | | [...]
--- OUTSIDE RECORDS SUMMARY | ~2020-02-28 | XMS | Encounter Summary ---
Demographics + + + | Address | [address] | | | [place] [address] | + + + | Home Phone [...] Team Providers + +------+ + | Care Receiving Weigher Name | Role | Phone | + [...] + + | 10/22/ | Telephone | [facility] | Gregor Mccord MD | Imaging Only (MRI | | 2017 | | GASTROENTEROLOGY | [address], [place] | MRCP Liver without | | | | [address] [place] | [address] [place], [place] | contrast scheduled) | | | | [address] [place], [place] | [address] | | | | | [address] | | | | | | [phone] | | | +--------+ + + + [...] [address] | | | | | | [place] [address] | | | | | | [phone] | | | | | | | | +--------+---------+ + + + documented as of this encounter Visit Diagnoses Not on filedocumented in this encounter"
--- OUTSIDE RECORDS SUMMARY | ~2020-02-28 | XMS | Encounter Summary ---
Demographics + + + | Address | [address] | | | [place] [address] | + + + | Home Phone | | + + + | Preferred Language | Unknown | + + + | Marital Status | | + + + | Scientologist Affiliation | Unknown | + + + | Race | White | + + + | Ethnic Group | Not or | + + + Author + + + | Author | [facility] | + + + | Organization | [facility] | + + + | Address [...] Team Providers + +------+ + | Care Laundry Route Driver Name | Role | Phone [...] Clinic Dermatology | | | | | [facility] | [address] [facility] | | | | | and Healing, | [place] | | | | | [facility] | [id number] | | | | | Floor [place], [place] | | | | | | [address] | | | | | | [phone] | | | +--------+ + + + [...] | OLOGY | | | | Case: [id number] | | | | | | | [...] [facility] | [address] | [place] [address] | | | DERMATOPATHOLOGY | [address] | | | + + + + + | [facility] | [address]code [address] | [place] [address] | | | DERMATOPATHOLOGY | [address] | | | + + + + + documented in this encounter Visit Diagnoses + + | Diagnosis | + + | Neoplasm of uncertain behavior of skin | + + documented in this encounter
--- OUTSIDE RECORDS SUMMARY | ~2020-02-28 | XMS | Encounter Summary ---
Demographics + + + | Address | [address] | | | [place] [address] | + + + | Home Phone [...] Team Providers + +------+ + | Care Cork Insulation Setter Name | Role | Phone | [...] | | | | | Complete | [place], [place] | [address] | | | | | | [address] | Phone: | | | | | | Phone: | [phone] | | | | | | [phone] | Fax: | | | | | | Fax: | [phone] | | | | | | [phone] | | +--------+--------+ + + + + [...] | | Procedures | [address] | [place], [place] | | | | | CONSULT | Ave | [address] Phone: | | | | | | [place], | [phone] | | | | | | [place] | Fax: | | | | | | [address] | [phone] | | | | | | Phone: | | | | | | | [phone] | | | | | | | Fax: | | | | | | | [phone] | | +--------+--------+ + + + + [...] | [address] | [place], [place] | Syncope, unspecified | | | | [address] | [address] | syncope type; | | | | [place] | | Hypertension, | | | | [address] | | unspecified type | | | | [phone] | | | +--------+---------+ + + + [...] Griffin DO - 06/30/2019 2:20 PM PST [facility] Cardiology Cardiology Consult Note Reason [...] Procedure: ERCP; Surgeon: Gregor Mccord MD; Location: [facility] MEDICAL PROCEDURE UNIT ERCP N/A 10/14/2016 Procedure: ERCP w/ stent pull; Surgeon: Gregor Mccord MD; Location: [facility] MEDICAL PROCEDU RE UNIT HARDWARE REMOVAL Left 03/29/2019 Procedure: REMOVE HARDWARE LOWER EXTREMITY-HIP; Surgeon: Mark [place] MD; Location : [facility] MAIN OR PARTIAL HYSTERECTOMY 1972 RECTOCELE REPAIR 1991 TAILBONE 1973 broken, partial removal TONSILLECTOMY 1938 TOTAL HIP ARTHROPLASTY Left 03/29/2019 Procedure: Posterior Total Hip Arthroplasty; Surgeon: Mark [place] MD; Location: [facility] MAIN OR MEDICATIONS Home Medications [...] [facility]) MISC Take by mouth. 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
--- OUTSIDE RECORDS SUMMARY | ~2020-02-28 | XMS | Encounter Summary ---
Demographics + + + | Address | [address] | | | [place] [address] | + + + | Home Phone [...] Team Providers + +------+ + | Care Dual Rate Supervisor Name | Role | Phone | [...] | | | | | | [place] | | | | | | | ANESTH,UGI | | | | | | | ENDOSCOPY | | | | | | | ERCP | | | +--------+--------+ + + + + Encounter Details +--------+ + + + + | Date | Type | Department | Care Team | Description | +--------+ + + + + | 10/14/ | Hospital | [facility] | Gregor Mccord MD | Choledocholithiasis | | 2017 | Encounter | MED CTR MP INTRA OP | [address], [place] | (Primary Dx) | | | | [address] | [address] [place], [place] | | | | | [place], [place] | [address] | | | | | [address] | | | | | | [phone] | | | +--------+ + + + [...] the test. This includes: All prescription medicines Kzqk-iev-cjzgimq medicines that don't need a prescription Any [...] torn bowel. Date Last Reviewed: 2014 [employer]. [address] [place] [address]. All righ ts reserved. This information is [...] be awakened Date Last Reviewed: 04/01/2016 [employer] [address] [place] [address]. All righ ts reserved. This information is [...] | | | 0 | | ([facility]) | | | | | | | MISC | | | | | | + + + +---------+ + + | Mcfarlan-3 Fatty | Take 1 tablet by | [...] 3 Years of Education: 12 Occupational History [employer] RETIRED Social History Main Topics Smoking status: [...] NS Patient: Scarlet Murguia : 1935 Acct: [id number] Exam Date: Friday, October 14, 2016 Doctor: [...] da y. Avoiding fatty foods such as Uzbek [place], hamburgers, carrera, ham and pork products, wi [...] | | | | | [place] [address] | | | | | | [phone] | | | | | | | [...] 10/14/2016 12:25 | [employer] | | PMMRN: [id number] #: [id number] of : 1935dm | | | Type: AmbulatoryAge: 80Room: [facility] 01Gender: FemaleNote Status: | | | FinalizedAttending [...] the anesthesiologist and | | | the durable medical equipment technician in the endoscopy suite. Mental Status [...] was visible on the | | | court deputy film. The esophagus was successfully intubated under [...] Scope In: 12:40:12 PMScope Out: 12:55:03 PM [place] | | | [facility], [address] [place] [address] | | | [phone] | | | - Continue present medications. [...] |Scope Out: 12:55:03 PM | | | [facility], [address] [place] [address] | | | [id number] | | + + -+ + +---------+ [...]
--- OUTSIDE RECORDS SUMMARY | ~2020-02-28 | XMS | Encounter Summary ---
Demographics + + + | Address | [address] | | | [place] [address] | + + + | Home Phone [...] Team Providers + +------+ + | Care Sign Language Instructor Name | Role | Phone | + +------+ + PCP | Unavailable | + +------+ + Encounter Details +--------+ + + + + | Date | Type | Department | Care Team | Description | +--------+ + + + + | 10/20/ | Hospital | [facility] | | | | 1999 | Encounter | MED CTR LABORATORY | | | | | | [address] [place] | | | | | | [place] | | | | | | [address] | | | | | | [phone] | | | +--------+ + + + [...] 05/17/ | Office | Cardiology | Jeniffer Haiens | | | 2019 | Visit | | [address] | | | | | | [address] | | | | | | [place] [address] | | | | | | [phone] | | | | | | | | +--------+---------+ + + + documented as of this encounter Visit Diagnoses Not on filedocumented in this encounter"
--- OUTSIDE RECORDS SUMMARY | ~2020-02-28 | XMS | Encounter Summary ---
Demographics + + + | Address | [address] | | | [place] [address] | + + + | Home Phone [...] Team Providers + +------+ + | Care Sap Consultant Name | Role | Phone | + +------+ + | Susan Leos | PCP | | | PADex | | | + +------+ + Encounter Details +--------+ + + + + | Date | Type | Department | Care Team | Description | +--------+ + + + + | 02/24/ | [facility] | [facility] | Malcom Mojica, | Peripheral | | 2016 | Encounter | MED CTR LABORATORY | [address] | sueropathy | | | | [address] | [address] [place], | | | | | [place] | [place] [address] | | | | | [address] | [phone] | | | | | [phone] | | | +--------+ + + + [...] | + + + +---------+--------+ + | [place]-3 Fatty | Take 1 tablet by | [...] | | | | | [place] [address] | | | | | | [phone] | | | | | | | [...] [address] | [place] | [phone] | | [facility] | | [address] | | | - LABORATORY | | [...] [place] | | | | | | [address] | | | | + + + [...] [address] | [place] [address] | [phone] | + + + + + Protein [...] DIOGENESE | | Vincent Sanchez MD02-27-16 | [facility]EN[facility] | |02-27-16 | [facility] | | | - LABORATORY | + + + + + + + + | Performing | Address | City/State/Zipcode | Phone Number | | Organization | | | | + + + + + | [address] | [address] | [place] | [phone] | | [facility] | | [address] | | | - LABORATORY | | [...] [place] | | | | | | [address] | | | | + + + [...] [address] | [place] [address] | [phone] | + + + + + Methylmalonic [...] [place] | | | | | | [address] | | | | + + + [...] [address] | [place] [address] | [phone] | + + + + + Vitamin [...] [address] | [place] | [phone] | | [facility] | | [address] | | | - LABORATORY | | | | + + + + + documented in this encounter Visit Diagnoses + + | Diagnosis | + + | Peripheral polyneuropathy Unspecified hereditary and idiopathic peripheral neuropathy | + + documented in this encounter"
--- OUTSIDE RECORDS SUMMARY | ~2020-02-28 | XMS | Encounter Summary ---
Demographics + + + | Address | [address] | | | [place] [address] | + + + | Home Phone | | + + + | Preferred Language | Unknown | + + + | Marital Status | | + + + | Zoroastrian Affiliation | Unknown | + + + [...] Providers + +------+ + | Care Staff Anesthetist Name | Role | Phone | + [...] | | | | | | [facility] | | | | | | and Healing, | | | | | | [address] | | | | | | Floor [place], [place] | | | | | | [address] | | | | | | [phone] | | | +--------+ + + + [...] ls | | | | | | Received:[id number]/[id number] | | | | | | 360-16 [...] Materials | | | | | | Returned:[id number] | | | | | | 360-16 [...] [facility] | [address] | [place] [address] | | | DERMATOPATHOLOGY | [address] | | | + + + + + | [facility] | [address] | [place] [address] | | | DERMATOPATHOLOGY | [address] | | | + + + + + documented in this encounter Visit Diagnoses Not on filedocumented in this encounter"
--- OUTSIDE RECORDS SUMMARY | ~2020-02-28 | XMS | Encounter Summary ---
Demographics + + + | Address | [address] | | | [place] [address] | + + + | Home Phone [...] Providers + +------+ + | Care Tube Molder Fiberglass Name | Role | Phone | + [...] + + | 10/14/ | Hospital | [facility] | Gregor Mccord MD | | | 2017 | Encounter | MED CTR XRAY [address] | [address] [place] | | | | | [address] [place] | [address] [place], [place] | | | | | [place] [address] | [address] | | | | | [phone] | | | +--------+ + + + [...] | | | | 0 | | ([facility]) | | | | | | | MISC | | | | | | + + + +---------+ + + | [place]-3 Fatty | Take 1 tablet by | [...] | | | | | [place] [address] | | | | | | [phone] | | | | | | | [...]
--- OUTSIDE RECORDS SUMMARY | ~2020-02-28 | XMS | Encounter Summary ---
Demographics + + + | Address | [address] | | | [place] [address] | + + + | Home Phone [...] + + + | Author | [facility] | | | and [place] | + + + | Organization | [facility] | | | and [...] Providers + +------+ + | Care Leather Finisher Name | Role | Phone | + [...] + + | 04/07/ | Office | [facility] | Malcom Mojica, | Hyper reflexia | | 2016 | Visit | PHYSIATRY [address] | [address] | (Primary Dx) | | | | [address] | [address] [place], | | | | | [place] | [place] [address] | | | | | [address] | [phone] | | | | | [phone] | | | +--------+---------+ + + + [...] Note Malcom Mojica MD [address] [facility], [address] [place] [address] FAX: CHIEF COMPLAINT: Chief Complaint Patient presents [...] mouth Daily. Multiple Vitamins-Minerals ([facility]) MISC Take by mouth. Alden-3 Fatty Acids (PRO NUTRIENTS OMEGA 3 PO) [...] ankles Coordination: There is no dysmetria on mbysxo-bo-rbyl and txrz-kmha-ofsv. There Romberg is mildly positiv e with [...] think that any further work-up would exchange mechanic at this time. Her primary symptoms is [...] [address] | | | | | | [place] [address] | | | | | | [phone] | | | | | | | | +--------+---------+ + + + documented as of this encounter Visit Diagnoses + + | Diagnosis | + + | Hyper reflexia - Primary Abnormal reflex | + + documented in this encounter
--- OUTSIDE RECORDS SUMMARY | ~2020-02-28 | XMS | Encounter Summary ---
Demographics + + + | Address | [address] | | | [place] [address] | + + + | Home Phone [...] Team Providers + +------+ + | Care Doctor Podiatric Medicine Name | Role | Phone | + [...] [address] | | | | | [address] [place], [place] | [place] [address] | | | | | [address] | [place] [address] | | | | | [phone] | [phone] | | | | | | | [...] [address] | | | | | | [address] | | | | | | [place] [address] | | | | | | [phone] | | | | | | | | +--------+---------+ + + + documented as of this encounter Visit Diagnoses Not on filedocumented in this encounter"
--- OUTSIDE RECORDS SUMMARY | ~2020-02-28 | XMS | Encounter Summary ---
Demographics + + + | Address | [address] | | | [place] [address] | + + + | Home Phone [...] Providers + +------+ + | Care Chief Procurement Officer Name | Role | Phone | [...] 2017 | | GASTROENTEROLOGY | [address], [place] | stent pull) | | | | [address] [place] | [address] [place] | | | | | [address] [place] | [address] | | | | | [address] | | | | | | [phone] | | | +--------+ + + + [...] [address] | | | | | | [place] [address] | | | | | | [phone] | | | | | | | [...]
--- OUTSIDE RECORDS SUMMARY | ~2020-02-28 | XMS | Encounter Summary ---
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
--- OUTSIDE RECORDS SUMMARY | ~2020-02-28 | XMS | Encounter Summary ---
Demographics + + + | Address | [address] | | | [place] [address] | + + + | Home Phone [...] Team Providers + +------+ + | Care Locomotive Boilermaker Name | Role | Phone | + +------+ + | Susan Leos | PCP | | | PA-C | | | + +------+ + Encounter Details +--------+ + + + + | Date | Type | Department | Care Team | Description | +--------+ + + + + | 12/07/ | Hospital | [facility] | Motaghi, Sam, DO | | | 2020 | Encounter | [facility] | [address] | | | | | XRAY [address] | [place] [address] | | | | | DR [address]ASS[address] [place], | [phone] | | | | | [place] [address] | | | | | | [phone] | | | +--------+ + + + [...] | | 0 | | | | [facility] | mouth Daily. | | | | [...] [address] | | | | | | [place] [address] | | | | | | [phone] | | | | | | | [...]
--- OUTSIDE RECORDS SUMMARY | ~2020-02-28 | XMS | Encounter Summary ---
Demographics + + + | Address | [address] | | | [place] [address] | + + + | Home Phone [...] Providers + +------+ + | Care Mechanical Shop Laborer Name | Role | Phone | [...] 2017 | | GASTROENTEROLOGY | [address], [place] | (MRCP) | | | | [address] [place] | [address] [place], [place] | | | | | [address] [place], [place] | [address] | | | | | [address] | | | | | | [phone] | | | +--------+ + + + [...] patient th at [facility] two weeks post [...] | | | | | | [place] [address] | | | | | | [phone] | | | | | | | | +--------+---------+ + + + documented as of this encounter Visit Diagnoses Not on filedocumented in this encounter"
--- OUTSIDE RECORDS SUMMARY | ~2020-02-28 | XMS | Encounter Summary ---
Demographics + + + | Address | [address] | | | [place] [address] | + + + | Home Phone [...] | Author | [facility] | | | and [place] | + + + | Organization | [facility] | | [...] Team Providers + +------+ + | Care Psychological Examiner Name | Role | Phone | [...] [place] | | | | | | [address] | | | | | | [phone] | | | +--------+ + + + [...] [address] | | | | | | [place] [address] | | | | | | [phone] | | | | | | | | +--------+---------+ + + + documented as of this encounter Visit Diagnoses Not on filedocumented in this encounter"
--- OUTSIDE RECORDS SUMMARY | ~2020-02-28 | XMS | Encounter Summary ---
Demographics + + + | Address | [address] | | | [place] [address] | + + + | Home Phone [...] Team Providers + +------+ + | Care Formal Wear Rental Clerk Name | Role | Phone [...] | | | | | [address] | [place] | | | | | [place], [place] | [address] | | | | | [address] | | | | | | [phone] | | | +--------+ + + + + Anesthesia Record + + + + + | Procedure Name | Responsible | Anesthesia Start | Anesthesia Stop Time | | | Anesthesiologist | Time | | + + + + + | ERCP w/ stent pull | Harinder Mcgowan MD | 10/14/16 1234 | 10/14/16 1309 | | (N/A Mouth) | | | [...] 1341 by | | eral | Forearm; tnuu-njp-oanjuy catheter | Patsy Dixon RN | Delicia [...] EVALUATION Scarlet Murguia 80 y.o. female 1935 [id number] Procedure(s) ERCP w/ stent pull (N/A Mouth) [...] signed by Harinder Mcgowan MD 10/14/2016 13:07 [facility] nesthesia Preprocedure Evaluation - Harinder Mcgowan MD - 10/14/2016 12:24 PM PDTFormatting of this note might be di fferent from the original. ANESTHESIA PREANESTHESIA EVALUATION Scarlet Murguia 80 y.o. female 1935 [id number] Procedure(s): ERCP w/ stent pull (N/A Mouth) [...] [address] | | | | | | [place] [address] | | | | | | [phone] | | | | | | | [...]
--- OUTSIDE RECORDS SUMMARY | ~2020-02-28 | XMS | Encounter Summary ---
Demographics + + + | Address | [address] | | | [place] [address] | + + + | Home Phone [...] Team Providers + +------+ + | Care Chain Hooker Name | Role | Phone | [...] | | | | | [address] | [address] [place] | | | | | [place] | [place] [address] | | | | | [address] | [phone] | | | | | [phone] | | | +--------+ + + + [...] 1530 by | | eral | Antecubital; ijjd-rpt-ikmpxo | Patsy Dixon RN | Patsy Dixon [...] EVALUATION Scarlet Murguia 80 y.o. female 1935 [id number] BP elevated during case and post-op. Home [...] signed by Enrique Llanos MD 09/26/2016 16:20 [facility] nesthesia Prep rocedure Evaluation - Enrique Llanos MD - 09/26/2016 12:25 PM PDT ANESTHESIA PREANESTHESIA EVALUATION Scarlet Murguia 80 y.o. female 1935 [id number] Procedure(s): ERCP (N/A Mouth) Medical history, anesthesia, [...] . Electronically Signed by: Enrique Llanos MD [facility] date/time: 09/26/2016 12:25 documented in t [...] [address] | | | | | | [place] [address] | | | | | | [phone] | | | | | | | [...]
--- OUTSIDE RECORDS SUMMARY | ~2020-02-28 | XMS | Encounter Summary ---
Demographics + + + | Address | [address] | | | [place] [address] | + + + | Home Phone [...] Team Providers + +------+ + | Care Fuel Management Handler Name | Role | Phone | + +------+ + PCP | Unavailable | + +------+ + Encounter Details +--------+ + + + + | Date | Type | Department | Care Team | Description | +--------+ + + + + | 03/20/ | Transcribed | Allergy Clinic at | Dictation, Other | Transcribed | | 1996 | | [facility] [address] | | | | | | [facility] | | | | | | [place] | | | | | | [facility], [address] [place] [address] | | | | | | [place], [place] | | | | | | [address] | | | | | | [phone] | | | +--------+ + + + [...] as of this encounter Progress Notes Interface, Men'S Golf Coach In - 07/30/2006 1:06 AM PST [facility] and [address] [address] or March 20, 1997 AKIRA LEOS MD [facility] [address] [place] [address] RE:Scarlet Murguia MR#:[id number] Leos: We [...] se, as manifested by pain at rest, commercial green building architect stiffness for greater than an hour or [...] Internal Medicine TERRY/artemio cc: Samia Montano M.D. Gang Supervisor, Medicine Rheumatology and Arthritis documented in this encounter Plan of Treatment Not on filedocumented as of this encounter Visit Diagnoses Not on filedocumented in this encounter
--- OUTSIDE RECORDS SUMMARY | ~2020-02-28 | XMS | Encounter Summary ---
Demographics + + + | Address | [address] | | | [place] [address] | + + + | Home Phone [...] + +------+ + | Care Clinical Data Management Director Name | Role | Phone [...] [place] | | | | | | [address] | | | | | | [phone] | | | +--------+ + + + [...] | | | | | [place] [address] | | | | | | [phone] | | | | | | | | +--------+---------+ + + + documented as of this encounter Visit Diagnoses Not on filedocumented in this encounter"
--- OUTSIDE RECORDS SUMMARY | ~2020-02-28 | XMS | Encounter Summary ---
Demographics + + + | Address | [address] | | | [place] [address] | + + + | Home Phone [...] Providers + +------+ + | Care Inspector Casing Name | Role | Phone | + [...] + + | 07/07/ | Documentati | [facility] | Carlotta Peters, | Other (end of study) | | 2020 | on | CARDIOLOGY LULU | Technologist | | | | | [address] | | | | | | [place], [place] | | | | | | [address] | | | | | | [phone] | | | +--------+ + + + [...] | | | | | [place] [address] | | | | | | [phone] | | | | | | | | +--------+---------+ + + + documented as of this encounter Visit Diagnoses + + | Diagnosis | + + | Syncope and collapse | + + | Murmur, heart Undiagnosed cardiac murmurs | + + documented in this encounter
[~2020-02-28 18:50] MED LIST changes: +CEFDINIR300 MG PO; +TYLENOL325 MG PO
--- OUTSIDE RECORDS SUMMARY | 2020-02-28 18:52 | XMS ---
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 TOTAL 10 NOTE: Visits indicate total known visits. ED/UCC VISIT TRACKING (12 MO.) 02/28/2020 18:51 [facility] TYPE: Emergency COMPLAINT: - FALL 02/22/2020 15:57 [facility] TYPE: Emergency COMPLAINT: - NECK PAIN DIAGNOSES: - Allergy status to other antibiotic agents status - Type 2 diabetes mellitus with diabetic neuropathy, unspecifie - Urinary tract infection, site not specified - Allergy status to sulfonamides status - Hypothyroidism, unspecified - Other intermediate card tender (current) drug therapy - Essential (primary) hypertension - Cervicalgia - Allergy status to other drugs, medicaments and biological sub - Allergy status to penicillin 02/17/2020 13:23 [facility] [place] TYPE: Emergency COMPLAINT: - SYNCOPE DIAGNOSES: - Type 2 diabetes mellitus without complications - Dizziness and giddiness - Allergy status to other drugs, medicaments and biological sub - Allergy status to penicillin - Syncope and collapse - Urinary tract infection, site not specified - Allergy status to other antibiotic agents status - [facility] [place] ([facility] drug therapy - Hypothyroidism, unspecified 02/11/2020 19:14 [facility] [place] TYPE: Emergency COMPLAINT: - ABDOMINAL PAIN DIAGNOSES: - Allergy status to sulfonamides status - Hypothyroidism, unspecified - Essential (primary) hypertension - Type 2 diabetes mellitus with diabetic neuropathy, unspecifie - Other [place] (current[facility] drug therapy - Pure hypercholesterolemia, unspecified [...] - Allergy status to penicillin - Other intermediate card tender (current) drug therapy - Allergy status to sulfonamides status 05/05/2019 13:21 [facility] [place] TYPE: Emergency COMPLAINT: - FALL DIAGNOSES: - intermediate (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 - Hypothyroidism, unspecified - Strain of muscle, fascia and tendon at neck level, initial en - Type 2 diabetes mellitus with diabetic neuropathy, unspecifie - Other intermediate card tender (current) drug therapy - Pure hypercholesterolemia, unspecified [...] tract infection, site not specified - Other intermediate card tender (current) drug therapy - Allergy status to [...] drugs, medicaments and biological sub - Other [place] (current) drug therapy - Personal history of other malignant neoplasm of skin - Altered mental status, unspecified - Allergy status to other antibiotic agents status 03/23/2019 20:56 [facility] [place] TYPE: Emergency COMPLAINT: - HIGH BLOOD PRESSURE DIAGNOSES: - Allergy status to penicillin - Allergy status to sulfonamides status - Other [facility] (current) drug therapy - Hypothyroidism, unspecified - Allergy status to other antibiotic agents status - Essential (primary) hypertension - intermediate card tender (current) use of aspirin - Personal history of malignant melanoma of skin - Elevated blood-pressure reading, without diagnosis of hyperte - Type 2 diabetes mellitus with diabetic neuropathy, unspecifie INPATIENT VISIT TRACKING (12 MO.) 04/11/2019 09:40 [facility] TYPE: Medical Surgical COMPLAINT: - BILATERAL PE'S DIAGNOSES: - Hypothyroidism, unspecified - Essential (primary) hypertension - Allergy status to other antibiotic agents status - intermediate (current) use of opiate analgesic - Allergy status to other drugs, medicaments and biological sub - Anemia, unspecified - Nonrheumatic aortic (valve) stenosis - Allergy status to penicillin - Other intervertebral disc degeneration, lumbar region - Allergy status to sulfonamides status - Other [place] (current[facility] drug therapy - Hypothyroidism, unspecified - Allergy status to sulfonamides status - Gastro-esophageal reflux disease without esophagitis - intermediate (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 - intermediate (current) use of opiate analgesic - Other intervertebral disc degeneration, lumbar region - Allergy status to other antibiotic agents status - Essential (primary) hypertension - Spondylolisthesis, lumbar region - Other pulmonary embolism without acute cor pulmonale - Stress incontinence (female) (male) - Fracture of unspecified part of neck of left femur, subsequen - Allergy status to penicillin - Other [place] (current[facility] drug therapy - Type 2 diabetes mellitus with diabetic polyneuropathy - intermediate card tender (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 - Spondylolisthesis, lumbar [...] drugs, medicaments and biological sub - [facility] [place] [facility] (current) drug therapy - Spondylolisthesis, lumbar region - Hypo-osmolality and hyponatremia - Type 2 diabetes mellitus with diabetic polyneuropathy - Hypo-osmolality and hyponatremia - Gastro-esophageal reflux disease without esophagitis - Nonrheumatic aortic (valve) stenosis - Gastro-esophageal reflux disease without esophagitis - Other intervertebral disc degeneration, lumbar region - Anemia, unspecified - Other intermediate card tender (current) drug therapy - Allergy status to [...] - Allergy status to sulfonamides status - intermediate card tender (current) use of opiate analgesic - Allergy status to penicillin - Essential (primary) hypertension - Presence of left artificial hip joint - Stress incontinence (female) (male) - Allergy status to other antibiotic agents status - Hypothyroidism, unspecified - Anemia, unspecified - intermediate card tender (current) use of opiate analgesic [email or web address]
== END 2020-02-28 20:15 | disposition home or self-care (01) ==
LOC: ED 18:50
DX: S16.1XXA Strain of muscle, fascia and tendon at neck level, initial encounter (principal); S70.01XA Contusion of right hip, initial encounter; S00.93XA Contusion of unspecified part of head, initial encounter; E11.40 Type 2 diabetes mellitus with diabetic neuropathy, unspecified; E03.9 Hypothyroidism, unspecified; Z85.828 Personal history of other malignant neoplasm of skin; Z88.0 Allergy status to penicillin; Z88.2 Allergy status to sulfonamides; Z88.1 Allergy status to other antibiotic agents; Z88.8 Allergy status to other drugs, medicaments and biological substances; Z79.899 Other long term (current) drug therapy; W01.198A Fall on same level from slipping, tripping and stumbling with subsequent striking against other object, initial encounter
CPT/HCPCS: 70450; 72125; 73502; 99284-25

== ENCOUNTER 2020-03-18 17:19 | Emergency (ER) | payer MEDICARE, MEDICAID ==
[~2020-03-18] VITALS: Ht 167.6 cm; Wt 72.6 kg
--- OUTSIDE RECORDS SUMMARY | ~2020-03-18 | XMS | Encounter Summary ---
Demographics + + + | Address | [address] | | | [place] [address] | + + + | Home Phone | | + + + | Preferred Language | Unknown | + + + | Marital Status | | + + + | Jew Affiliation | 1077 | + + + | Race | White | + + + | Ethnic Group | Not or | + + + Author + + + | Author | [facility] | | | and [place] | + + + | Organization | [facility] | | | and [place] | [...] Team Providers + +------+ + | Care Clay Temperer Name | Role | Phone | + +------+ + | Susan Leos | PCP | | | PA-C | | | + +------+ + Reason for Referral Evaluate & Treat (Routine) +--------+ + + + + + | Status | Reason | Specialty | Diagnoses / | Referred By | Referred To | | | | | Procedures | Contact | Contact | +--------+ + + + + + | Closed | Specialty | Physical | Diagnoses | | OP ST | | | Services | Therapy | DDD | Ray, | T[place] | | | Required | | (degenerativ | [place], | [facility]PITAL | | | | | e disc | PA-C [address] | | | | | disease), | [address], | [address]VE | | | | | lumbar | [address] | [place], [place] | | | | | Spondylolist | [place], [place] | [address] | | | | | hesis at | [address] | Phone: | | | | | L4-L5 level | Phone: | [phone] | | | | | Bilateral | [phone] | Fax: | | | | | lumbar | Fax: | [phone] | | | | | radiculopath | [phone] | | | | | | y Neck pain | | | | | | | Procedures | | | | | | | Faxed 1/6 | | | +--------+ + + + + + Encounter Details +--------+ + + + + | Date | Type | Department | Care Team | Description | +--------+ + + + + | 06/04/ | Orders Only | [facility] [place] | Bogdanowicz, | 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 [address] | [address] | disc disease), | | | | [address] | [address] | lumbar (Primary Dx); | | | | [place], [place] | [place] [address] | Spondylolisthesis | | | | [address] | [phone] | at L4-L5 level; | | | | [phone] | | Bilateral lumbar | | | | | | radiculopathy; Neck | | | | | | pain | +--------+ + + + + Social [...] on file | | + + + documented as of this encounter Plan of Treatment +--------+ + + + + | Date | Type | Specialty | Care Team | Description | +--------+ + + + + | 04/02/ | Appointment | Pain Medicine | Sam Samuels DO | | | 2019 | | | [address] | | | | | | [place] [address] | | | | | | [phone] | | | | | | | | +--------+ + + + + | 05/17/ | Office | Cardiology | Jeniffer Haines | | | 2019 | Visit | | [address] | | | | | | [place] | | | | | | [place] [address] | | | | | | [phone] | | | | | | | | +--------+ + + + + + + +--------+ + + | Name | Type | Priori | Associated Diagnoses | Order Schedule | | | | ty | | | + + +--------+ + + | AMB REFERRAL TO [facility] | Outpatient | Routin | DDD (degenerative | Ordered: 06/17/2016 | | PHYSICAL THERAPY | Referral | e | disc disease), | | | | | | lumbar | | | | | | Spondylolisthesis at | | | | | | L4-L5 level | | | | | | Bilateral lumbar | | | | | | radiculopathy Neck | | | | | | pain | | + + +--------+ + + documented as of this encounter Visit Diagnoses + + | Diagnosis | + + | DDD (degenerative disc disease), lumbar - Primary Degeneration of lumbar or | | lumbosacral intervertebral disc | + + | Spondylolisthesis at L4-L5 level | + + | Bilateral lumbar radiculopathy | + + | Neck pain Cervicalgia | + + documented in this encounter"
--- OUTSIDE RECORDS SUMMARY | ~2020-03-18 | XMS | Encounter Summary ---
Demographics + + + | Address | [address] | | | [place] [address] | + + + | Home Phone | | + + + | Preferred Language | Unknown | + + + | Marital Status | | + + + | Orthodox Affiliation | 1077 | + + + | Race | White | + + + | Ethnic Group | Not or | + + + Author + + + | Author | [facility] | | | and [place] | + + + | Organization | [facility] | | | and [...] Team Providers + +------+ + | Care Spouter Name | Role | Phone | + +------+ + | Susan Leos | PCP | | | PA-C | | | + +------+ + Reason for Visit + +--------+ + | Reason | Onset | Comments | | | Date | | + +--------+ + | Injections | 02/13/ | | | | 2015 | | + +--------+ + Encounter Details +--------+ + + + + | Date | Type | Department | Care Team | Description | +--------+ + + + + | 02/13/ | Telephone | [facility] [place] | Bogdanowicz, | Injections | | 2016 | | PHYSIATRY [address] | [address] | | | | | [address] | [address] | | | | | [place], [place] | [place] [address] | | | | | [address] | [phone] | | | | | [phone] | | | +--------+ + + + [...] + + documented as of this encounter Miscellaneous Notes Telephone Encounter - Viki Martines CMA - 02/19/2016 9:25 AM PDTEMG scheduled for 02/25/16. elephone Encounter - Aurora Watters PA-C - 02/14/2016 5:13 PM PDTYes we should order that, she can see Dr. Mojica, bilateral LE - neuropathyElectronically signed by Aurora Bell PA-C at 02/13 5:14 PM PDTTelephone Encounter - Viki Martines CMA - 02/14/2016 2:16 PM PDTAppointme nt cancelled. Patient wants to know if she is to proceed with [facility], please advise. Electronic ally signed by Viki Martines CMA at 02/14/2016 2:17 PM PDTTelephone Encounter - Parul Feliciano - 02/14/2016 1:25 PM PDTPatient would like to cancel her appt that she has for 03/06 at 1600. She would like to start her PT first and then see how she feels after.Electronical ly signed by Parul Feliciano at 02/14/2016 1:42 PM PDTdocumented in this encounter Plan of Treatment +--------+ + + + + | Date | Type | Specialty | Care Team | Description | +--------+ + + + + | 04/02/ | Appointment | Pain Medicine | Sam Samuels DO | | | 2019 | | | [address] [facility] | | | | | | [place] [address] | | | | | | [phone] | | | | | | | | +--------+ + + + + | 05/17/ | Office | Cardiology | Jeniffer Haines | | | 2019 | Visit | | [address] | | | | | | [place] | | | | | | [place] [address] | | | | | | [phone] | | | | | | | | +--------+ + + + + documented as of this encounter Visit Diagnoses Not on filedocumented in this encounter"
--- OUTSIDE RECORDS SUMMARY | ~2020-03-18 | XMS | Encounter Summary ---
Demographics + + + | Address | [address] | | | [place] [address] | + + + | Home Phone | | + + + | Preferred Language | Unknown | + + + | Marital Status | | + + + | Mosque Affiliation | 1077 | + + + | Race | White | + + + | Ethnic Group | Not or | + + + Author + + + | Author | [facility] | | | and [place] | + + + | Organization | [facility] | | | [...] Team Providers + +------+ + | Care Planting Machine Operator Name | Role | Phone | + +------+ + | Susan Leos | PCP | | | PA-C | | | + +------+ + Reason for Visit + +--------+ + | Reason | Onset | Comments | | | Date | | + +--------+ + | Appointment | 01/01/ | | | | 2020 | | + +--------+ + Encounter Details +--------+ + + + + | Date | Type | Department | Care Team | Description | +--------+ + + + + | 01/01/ | Telephone | [facility] | Sam Samuels DO | Appointment | | 2019 | | [facility] | [address] | | | | | [address] | [place] [address] | | | | | [address] [place], | [phone] | | | | | [place] [address] | | | | | | [phone] | | | +--------+ + + + [...] this encounter Miscellaneous Notes Telephone Encounter - Suha Casillas, [employer] - 01/02/2020 3:36 PM [facility] and made 4 week f/u appointment in office with patient documented in this encounter Plan of Treatment +--------+ + + + + | Date | Type | Specialty | Care Team | Description | +--------+ + + + + | 04/02/ | Appointment | Pain Medicine | Sam Samuels DO | | | 2019 | | | [address] | | | | | | [place] [address] | | | | | | [phone] | | | | | | | | +--------+ + + + + | 05/17/ | Office | Cardiology | Jeniffer Haines | | 2019 | Visit | | [address] | | | | | | [address] | | | | | | [place] [address] | | | | | | [phone] | | | | | | | | +--------+ + + + + documented as of this encounter Visit Diagnoses Not on filedocumented in this encounter"
--- OUTSIDE RECORDS SUMMARY | ~2020-03-18 | XMS | Encounter Summary ---
Demographics + + + | Address | [address] | | | [place] [address] | + + + | Home Phone | | + + + | Preferred Language | Unknown | + + + | Marital Status | | + + + | Confucianist Affiliation | 1077 | + + + | Race | White | + + + | Ethnic Group | Not or | + + + Author + + + | Author | [facility] | | | and [place] | + + + | Organization | [facility] | | | and [...] Team Providers + +------+ + | Care Clerk Funeral Detail Name | Role | Phone | + +------+ + | Susan Leos | PCP | | | PA-C | | | + +------+ + Reason for Visit + + + | Reason | Comments | + + + | Back Pain | Lower back, down buttocks | + + + Evaluate & Treat (Routine) + + + + + + + | Status | Reason | Specialty | Diagnoses / | Referred By | Referred To | | | | | Procedures | Contact | Contact | + + + + + + + | Authorized | Specialty | Pain Medicine | Diagnoses | Nan | [facility] | | | Services | | Spinal | Mark Foley MD | Yashira | | | Required | | stenosis, | [address] | Pain | | | | | lumbar | [address] | Management | | | | | region, with | [place], | [facility] [address] | | | | | neurogenic | [place] [address] | [facility], | | | | | claudication | Phone: | [place] | | | | | | [phone] | [address] | | | | | | Fax: | Phone: | | | | | | [phone] | [phone] | | | | | | | Fax: | | | | | | | [phone] | + + + + + + + Encounter Details +--------+---------+ + + + | Date | Type | Department | Care Team | Description | +--------+---------+ + + + | 11/21/ | Office | [facility] | Sam Samuels DO | Spondylolisthesis at | | 2020 | Visit | [facility] | [address] | L4-L5 level | | | | [address] | [place] [address] | (Primary Dx); Lumbar | | | | [address] [place], | [phone] | radiculopathy; | | | | [place] [address] | | Spinal stenosis of | | | | [phone] | | lumbar region with | | | | | | neurogenic | | | | | | claudication; DDD | | | | | | (degenerative disc | | | | | | disease), lumbar | +--------+---------+ + + + Social History [...] + + + | Blood Pressure | - | - | | + + + + + | Pulse | 56 | 11/22/2019 12:52 PM | | | | | PDT | | + + + + + | Temperature | 36.8 C (98.2 F) | 11/22/2019 12:52 PM | | | | | PDT | | + + + + + | Respiratory Rate | - | - | | + + + + + | Oxygen Saturation | 98% | 11/22/2019 12:52 PM | | | | | PDT | | + + + + + | Inhaled Oxygen | - | - | | | Concentration | | | | + + + + + | Weight | 69.9 kg (154 lb) | 11/22/2019 12:52 PM | | | | | PDT | | + + + + + | Height | 167.6 cm (5' 6") | 11/22/2019 12:52 PM | | | | | PDT | | + + + + + | Body Mass Index | 24.86 | 11/22/2019 12:52 PM | | | | | PDT | | + + + + + documented in this encounter Progress Notes Sam Samuels DO - 11/22/2019 1:00 PM PDT [facility]: Interventional Pain Management 11/22/2019November Blade 1935 Chief Complaint Patient presents with Back Pain Lower back, down buttocks HISTORY OF PRESENT ILLNESS Back Pain This is a chronic problem. The current episode started more than 1 year ago. The problem oc curs constantly. The problem is unchanged. The pain is present in the lumbar spine. The qual ity of the pain is described as aching, stabbing and shooting. The pain radiates to the righ t thigh, right knee, right foot, left knee, left thigh and left foot. The pain is at a sever ity of 6/10. The pain is moderate. The symptoms are aggravated by twisting, standing and robert ding. Associated symptoms include numbness, tingling and weakness. Pertinent negatives inclu de no abdominal pain, chest pain, fever or headaches. She has tried home exercises for the s ymptoms. The treatment provided mild relief. REVIEW OF SYSTEMS Review of Systems Constitutional: Positive for activity change. Negative for appetite change, fatigue and fev er. HENT: Negative for congestion, trouble swallowing and voice change. Eyes: Negative for photophobia, discharge and visual disturbance. Respiratory: Negative for apnea, cough, shortness of breath and wheezing. Cardiovascular: Negative for chest pain, palpitations and leg swelling. Gastrointestinal: Negative for abdominal pain, diarrhea, nausea and vomiting. Endocrine: Negative for cold intolerance, heat intolerance and polyuria. Musculoskeletal: Positive for arthralgias, back pain and gait problem. Negative for joint s welling, neck pain and neck stiffness. Skin: Negative for color change and rash. Allergic/Immunologic: Negative for environmental allergies and food allergies. Neurological: Positive for tingling, weakness and numbness. Negative for seizures, light-he adedness and headaches. Psychiatric/Behavioral: Negative for dysphoric mood and suicidal ideas. The patient is not nervous/anxious. Past Medical History: Diagnosis Date Aortic stenosis Bilateral lumbar radiculopathy 02/04/2016 Cholelithiasis with cholecystitis DDD (degenerative disc disease), lumbar 02/04/2016 Diabetes type 2, controlled ([facility]) DVT (deep venous thrombosis) ([facility]) 03/2019 post hip replacement Full dentures upper & lower GERD (gastroesophageal reflux disease) Heart murmur HTN (hypertension) Hyperlipidemia Hypothyroidism Macular degeneration Other intervertebral disc displacement, lumbar region Peripheral neuropathy Pneumonia 2005 Pulmonary emboli ([facility]) 03/2019 after hip replacement Skin cancer Spondylolisthesis at L4-L5 level 02/04/2016 Stress incontinence in female Type 2 diabetes mellitus ([facility]) Past Surgical History: Procedure Laterality Date CHOLECYSTECTOMY COLONOSCOPY 2003; 2009; 2011 polyp's removed CYSTOCELE REPAIR 1971 ERCP N/A 09/26/2016 Procedure: ERCP; Surgeon: Gregor Mccord MD; Location: [facility] MEDICAL PROCEDURE UNIT ERCP N/A 10/14/2016 Procedure: ERCP w/ stent pull; Surgeon: Gregor Mccord MD; Location: [facility] MEDICAL PROCEDU RE UNIT HARDWARE REMOVAL Left 03/29/2019 Procedure: REMOVE HARDWARE LOWER EXTREMITY-HIP; Surgeon: Mark [place] MD; Location : [facility] PARTIAL HYSTERECTOMY 1971 RECTOCELE REPAIR 1991 TAILBONE 1973 broken, partial removal TONSILLECTOMY 1938 TOTAL HIP ARTHROPLASTY Left 03/29/2019 Procedure: Posterior Total Hip Arthroplasty; Surgeon: Mark [place] MD; Location: [facility] Allergies Allergen Reactions Erythromycin Hives and Rash Levofloxacin Hives and Rash Penicillins Hives and Rash Sulfa Antibiotics Hives and Rash Verapamil Hcl Er Hives and Rash Prior to Admission medications Medication Sig Start Date End Date Taking? Authorizing Provider Ascorbic Acid (VITAMIN C) 500 MG CAPS Take 500 mg by mouth Daily. Yes Historical Provider , aspirin 81 mg EC tablet Take 81 mg by mouth Daily. Yes Historical Provider, atenolol (TENORMIN) 50 mg tablet Take 50 mg by mouth Daily. Yes Historical Provider, [employer] TRIPLE MAGNESIUM COMPLEX PO Take 400 mg by mouth Daily. Yes Historical Provider, docusate sodium (COLACE) 100 mg capsule Take 100 mg by mouth Twice daily as needed. Yes Historical Provider, TN-Vowzdhgkrz-Ycucgtbbsbtdgm (FOLBIC PO) Take 1 capsule by mouth Daily. Yes Historical Pr MD helen ferrous sulfate 325 mg tablet Take 325 mg by mouth daily (with breakfast). Yes Historical Provider, gabapentin (NEURONTIN) 300 mg capsule Take 600 mg by mouth 3 times daily. Takes 60o mg in a m , 300 mg at noon, and 600 mg at night Yes Historical Provider, levothyroxine (SYNTHROID, LEVOTHROID) 100 mcg tablet Take 100 mcg by mouth every morning (b efore breakfast). Yes Historical Provider, losartan (COZAAR) 50 mg tablet Take 50 mg by mouth Daily. Yes Historical Provider, Multiple Vitamins-Minerals (MACULAR HEALTH FORMULA) CAPS Take 1 capful by mouth Daily. Ye s Historical Provider, omeprazole (PRILOSEC) 20 mg capsule Take 20 mg by mouth every morning (before breakfast). Yes Historical Provider, ondansetron (ZOFRAN ODT) 4 mg disintegrating tablet Take 4 mg by mouth every 8 hours as nee ded. 07/26/16 Yes Historical Provider, POTASSIUM CITRATE PO Take 99 mg by mouth Daily. Yes Historical Provider, Psyllium (METAMUCIL PO) Take 1 Dose by mouth as needed. Yes Historical Provider, venlafaxine (EFFEXOR XR) 75 mg 24 hr capsule Take 75 mg by mouth Daily. 04/21/19 Yes Histor ical Provider, Family History Problem Relation Age of Onset Osteoporosis Mother Stroke Mother 95 Early Father TB Tuberculosis Father No known problems Paternal Grandfather No known problems Paternal Grandmother No known problems Maternal Grandfather Stroke Maternal Grandmother Diabetes Brother Heart disease Brother Early Brother 21 MVA Cancer Brother SKIN Heart disease Brother Muscle disease Daughter guillain barre syndrome No known problems Paternal Aunt Stroke Maternal Uncle 91 Stroke Maternal Uncle 96 Heart disease Maternal Uncle Social History Socioeconomic History Marital status: Spouse name: Not on file Number of children: 3 Years of education: 12 Highest education level: Not on file Occupational History 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 Social Needs Financial resource strain: Not on file Food insecurity: Worry: Not on file Inability: Not on file Transportation needs: Medical: Not on file Non-medical: Not on file Tobacco Use Smoking status: Never Smoker Smokeless tobacco: Never Used Substance and Sexual Activity Alcohol use: Yes Alcohol/week: 0.0 standard drinks Comment: once every 2 months Drug use: Yes Types: Marijuana Comment: edibles at night n ight for 5 years Sexual activity: Not on file Lifestyle Physical activity: Days per week: Not on file Minutes per session: Not on file Stress: Not on file Relationships Social connections: Talks on phone: Not on file Gets together: Not on file Attends hinduism service: Not on file Active member of club or organization: Not on file Attends meetings of clubs or organizations: Not on file Relationship status: Not on file Intimate partner violence: Fear of current or ex partner: Not on file Emotionally abused: Not on file Physically abused: Not on file Forced sexual activity: Not on file Other Topics Concern Not on file Social History Narrative Not on file PHYSICAL EXAM Vital Signs: Pulse 56 | Temp 36.8 C (98.2 F) | Ht 1.676 m (5' 6") | Wt 69.9 kg (154 lb) | SpO2 9 8% | BMI 24.86 kg/m Physical Exam Constitutional: Appearance: She is well-developed. HENT: Head: Normocephalic and atraumatic. Right Ear: External ear normal. Left Ear: External ear normal. Eyes: General: Right eye: No discharge. Left eye: No discharge. Conjunctiva/sclera: Conjunctivae normal. Neck: Musculoskeletal: Normal range of motion and neck supple. Thyroid: No thyromegaly. Cardiovascular: Rate and Rhythm: Normal rate and regular rhythm. Pulses: Normal pulses. Heart sounds: Murmur present. Pulmonary: Effort: Pulmonary effort is normal. Breath sounds: Normal breath sounds. Abdominal: General: Abdomen is flat. Palpations: Abdomen is soft. Skin: General: Skin is warm and dry. Neurological: Mental Status: She is alert and oriented to person, place, and time. Psychiatric: Behavior: Behavior normal. Thought Content: Thought content normal. Back Exam Tenderness The patient is experiencing tenderness in the lumbar. Range of Motion Extension: abnormal Flexion: abnormal Muscle Strength The patient has normal back strength. Tests Straight leg raise right: negative Straight leg raise left: negative Reflexes Patellar: Hyporeflexic Achilles: Hyporeflexic Other Gait: antalgic DATA No results found for this or any previous visit (from the past 360 hour(s)). PROBLEM LIST 1. Spondylolisthesis at L4-L5 level 2. Lumbar radiculopathy 3. Spinal stenosis of lumbar region with neurogenic claudication 4. DDD (degenerative disc disease), lumbar ASSESSMENT & PLAN Mrs. Ray is an 83-year-old female here complaining of lower back pain with what seems t o be neurogenic claudication due to listhesis at L4-5 and severe stenosis at L4-5, L3-4 and moderate to severe at L2-3. For this reason, we did discuss doing a bilateral L4 transforam inal and bilateral L3 due to the severity of the stenosis and inability going intralaminarly . We did go over the risks and benefits of the procedure as well as the description of the procedure itself. She understands the risks involved. We did discuss getting a flexion an d extension x-ray as well to see if the listhesis is dynamic. Also if she is not getting si gnificant relief from these injections, then we will refer her to a surgeon to see if she wo uld be a candidate. With her age and the multilevel that would have to be due, she would pr obably be looking at a fusion. I do not know if she would be a surgical candidate, but if it does come to that, we will leave her in the capable hands of our surgeons. Plan, alternatives, risks and potential benefits of the procedure were explained to the pat ient in great detail. The patient understands that there is no guarantee they will get pain relief with this procedure. They also understand that if they do get pain relief that ther e is no way to know how long it will last. They also understand there is a risk to the proc edure itself which includes but are not limited to infection, abscess, hematoma, nerve damag e, paraplegia or quadriplegia, increased pain, spinal headache, stroke, and side effects fro m the medications themselves. The patient wishes to proceed. Patient is currently participating in home exercises. Primary Care Physician: Susan Leos PA-C follow up Sam Samuels DO 11/22/2019 This document has been prepared with [employer] voice recognition system. The possibility of "s ound alike" head of cytogenetics errors, and additions, or deletions may occur. If there is any que stion with respect to clarity of the message being conveyed, please contact me directly for clarification. documente d in this encounter Plan of Treatment +--------+ + + + + | Date | Type | Specialty | Care Team | Description | +--------+ + + + + | 04/02/ | Appointment | Pain Medicine | Sam Samuels DO | | 2019 | | | [address] | | | | | | [place] [address] | | | | | | [phone] | | | | | | | | +--------+ + + + + | 05/17/ | Office | Cardiology | Jeniffer Haines | | 2019 | Visit | | [address] | | | | | | [address] | | | | | | [place] [address] | | | | | | [phone] | | | | | | | | +--------+ + + + + documented as of this encounter Results XR Lumbar Spine 4 + Vw (11/22/2019 1:23 PM PDT) + + | Specimen | + + | | + + + + + | Impressions | Performed At | + + + | 1. Worsening degenerative grade 2 anterolisthesis of L4 on L5 | [facility] | | without dynamic instability. 2. Multilevel degenerative disc disease | | | and facet arthropathy, as above. Signed by: Rick | | | Roman Pool Sign Date/Time: 11/22/2019 1:43 PM | | + + + + + + | Narrative | Performed At | + + + | LUMBAR SPINE FOUR VIEWS CLINICAL INFORMATION: Lumbar spine | [facility] | | pain. Known anterolisthesis of L4 on L5. COMPARISON: Lumbar | | | spine MRI 02/11/2016. Lumbar spine radiographs 10/05/2015. | | | FINDINGS: Alignment: Slight worsening of degenerative anterolisthesis | | | of L4 on L5 is currently seen, 12 mm on all lateral views including | | | flexion and extension, previously 10 mm. Vertebrae: Normal. No | | | fractures or evidence of acute vertebral deformity. Lumbar Disc | | | Levels: Multilevel disc height loss greatest, moderate, and slightly | | | worsening at L4-5. Facets and Posterior Spinal Elements: | | | Multilevel facet arthropathy greatest in severe at L4-5. | | | Incidental note is made of atherosclerotic calcifications in the | | | abdominal aorta. There is evidence of left total hip arthroplasty | | | and cholecystectomy. | | + + + + + | Procedure Note | + + | Howard, Rad Results In - 11/22/2019 1:47 PM PDT | | LUMBAR SPINE FOUR VIEWS | | | | CLINICAL INFORMATION: | | Lumbar spine pain. Known anterolisthesis of L4 on L5. | | | | COMPARISON: | | Lumbar spine MRI 02/11/2016. Lumbar spine radiographs 10/05/2015. | | | | FINDINGS: | | Alignment: Slight worsening of degenerative anterolisthesis of L4 on L5 | | is currently seen, 12 mm on all lateral views including flexion and | | extension, previously 10 mm. | | | | Vertebrae: Normal. No fractures or evidence of acute vertebral | | deformity. | | | | Lumbar Disc Levels: Multilevel disc height loss greatest, moderate, and | | slightly worsening at L4-5. | | | | Facets and Posterior Spinal Elements: Multilevel facet arthropathy | | greatest in severe at L4-5. | | | | Incidental note is made of atherosclerotic calcifications in the | | abdominal aorta. There is evidence of left total hip arthroplasty and | | cholecystectomy. | | | | IMPRESSION: | | 1. Worsening degenerative grade 2 anterolisthesis of L4 on L5 without | | dynamic instability. | | 2. Multilevel degenerative disc disease and facet arthropathy, as above. | | | | | | | | | | Signed by: Yrn Cabrera Sean | | Sign Date/Time: 11/22/2019 1:43 PM | + + + +---------+ + + | Performing | Address | City/State/Zipcode | Phone Number | | Organization | | | | + +---------+ + + | [facility] | | | | + +---------+ + + documented in this encounter Visit Diagnoses + + | Diagnosis | + + | Spondylolisthesis at L4-L5 level - Primary | + + | Lumbar radiculopathy Thoracic or lumbosacral neuritis or radiculitis, unspecified | + + | Spinal stenosis of lumbar region with neurogenic claudication Spinal stenosis, lumbar | | region, with neurogenic claudication | + + | DDD (degenerative disc disease), lumbar Degeneration of lumbar or lumbosacral | | intervertebral disc | + + documented in this encounter
--- OUTSIDE RECORDS SUMMARY | ~2020-03-18 | XMS | Encounter Summary ---
Demographics + + + | Address | [address] | | | [place] [address] | + + + | Home Phone | | + + + | Preferred Language | Unknown | + + + | Marital Status | | + + + | Pentecostal Affiliation | 1077 | + + + | Race | White | + + + | Ethnic Group | Not or | + + + Author + + + | Author | [facility] | | | and [place] | + + + | Organization | [facility] | | | [...] Providers + +------+ + | Care Director Product Development Name | Role | Phone | + [...] | | | | | | | [place] ERCP DX | | | | | [...] + + | 09/26/ | Surgery | [facility] | Gregor Mccord MD | ERCP | | 2017 | | [facility] | [address], [place] | | | | | [address] | [address] | | | | | [place] | [id number] | | | | | [address] | | | | | | [phone] | | | +--------+---------+ + + + [...] + + + | Blood Pressure | 177/72 | 09/26/2016 10:49 AM | | | | | PDT | | + + + + + | Pulse | 55 | 09/26/2016 10:49 AM | | | | | PDT | | + + + + + | Temperature | 36.2 C (97.2 F) | 09/26/2016 10:49 AM | | | | | PDT | | + + + + + | Respiratory Rate | 16 | 09/26/2016 10:49 AM | | | | | PDT | | + + + + + | Oxygen Saturation | 98% | 09/26/2016 10:49 AM | | | [...] or severe belly or abdominal pain Fever [id number] (37.7C) or chills Upset stomach (nausea) and vomiting Black or tarry stools Date Last Reviewed: 11/25/201419996595-8348 [employer]. [address] [place] [address]. All righ ts reserved. 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 Avoiding fatty foods such as [place], hamburgers, carrera, ham and pork products, wi [...] procedure. Patient's Signature Nurse's Signature Date: Escort's Si gnature Gregor Mccord MD 09/26/2016 1:21:22 PM This report has been signed electronically.Electronically signed by Gregor Mccord MD at 1:21 PM PDTPlan of Care - Ana Moon Chaplain - 09/26/2016 12:12 PM PDTPro blem: Patient Care Overview (Adult) Goal: Care Team Goals & Evaluation PROBLEM-RELATED GOALS: STRATEGY TO ACHIEVE GOALS: RESTRAINT-RELATED GOALS: STRATEGIES TO ACHIEVE RESTRAINT GOALS: Spiritual Care Scarlet Murguia is a 80 y.o. female who is admitted for Common bile duct stone (K80.50). Spiritual Evaluation: Poonam received an electronic referral that the patient had requ ested prayer before surgery. Scarlet was waiting alone lying on the gurney. She cheerfully we lcomed a human relations manager visit. She said that her family gathered around her and offered prayer la night. She is a member of [employer] and asked that the evangelical be no tified of her hospitalization. She has a strong virignie and belief in prayer. Spiritual Intervention: Offered pastoral presence and encouragement. Shared prayer. Left a message for the medication nurse at [employer] Spiritual Outcomes: Scarlet expressed her appreciation [...] | | 2019 | | | [address] [facility] | | | | | | [place] [address] | | | | | | [phone] | | | | | | | | +--------+ + + + + | 05/17/ | Office | Cardiology | Jeniffer Haines | | | 2020 | Visit | | [address] | | | | | | [address] | | | | | | [place] [address] | | | | | | [phone] | | | | | | | [...] | | | | VONDA SHEPPARD MD ([id number]) | | | | | | on [...] | | + +---------+ + + | AMANDAMT MUSE | | | | + +---------+ [...] + + | Performing | Address | City/State/[facility] | Phone Number | | Organization | | | | + +---------+ + + | [facility] | | | | + +---------+ + + ERCP (09/26/2016 12:24 PM PDT) + + | Specimen | + + | | + + + + -+ | Narrative | Performed At | + + -+ | | [facility] | | GastroenterologyPatient Name: November BladeProcedure Date: 09/26/2016 | PROVATION | | 12:24 PMMRN: [id number] #: [id number] of : | | | 1935dmit Type: AmbulatoryAge: 80Room: [facility] 01Gender: FemaleNote | | | Status: FinalizedAttending MD: Gregor Mccord , [facility]rocedure: | | | ERCPIndications: Filling defect on intraoperative | | | cholangiogramProviders: Gregor Mccord MD, Jalyn Darden | | | ROBI Ring, Pablo Rothman [facility], | | | Laurie Hammond, Slate Cutter, Paty Beverly | | | Michelle, Slate Cutter, Enrique Llanos MD (Anesthesia | | | [...] | | | the anesthesiologist and the auto electrical technician in the endoscopy suite. | | [...] the procedure | | | well.Findings: A diet clerk film of the abdomen was obtained. | [...] | | 12:39:22 PMScope Out: 1:06:30 PM [facility] | | | [place], [address] [place] [id number] | | | - Continue present medications. [...] |Scope Out: 1:06:30 PM | | | [facility], [address] [place] [address] | | | [phone] | | + + -+ + +---------+ [...] | | | | VONDA SHEPPARD MD ([id number]) | | | | | | on [...] | | | 50 mg, Oral, ONCE, 09/26/16 | | 17 2:31 | | | [...]
--- OUTSIDE RECORDS SUMMARY | ~2020-03-18 | XMS | Encounter Summary ---
Demographics + + + | Address | [address] | | | [place] [address] | + + + | Home Phone | | + + + | Preferred Language | Unknown | + + + | Marital Status | | + + + | Methodist Affiliation | 1077 | + + + | Race | White | + + + | Ethnic Group | Not or | + + + Author + + + | Author | [facility] | | | and [place] | + + + | Organization | [facility] | | | and [...] Team Providers + +------+ + | Care Bee Rancher Name | Role | Phone | + +------+ + | Susan Leos | PCP | | | PA-C | | | + +------+ + Reason for Visit +--------+ + | Reason | Comments | +--------+ + | Other | end of study | +--------+ + Encounter Details +--------+ + + + + | Date | Type | Department | Care Team | Description | +--------+ + + + + | 07/07/ | Documentati | [facility] | Carlotta Peters, | Other (end of study) | | 2020 | on | CARDIOLOGY [place] | Technologist | | | | | [address] | | | | | | [place], [place] | | | | | | [address] | | | | | | [phone] | | | +--------+ + + + [...] documented as of this encounter Progress Notes Carlotta Peters, Technologist - 07/07/2019 11:59 PM PST Cardiac Event Monitor Date of Event Monitor: 07/07/19 Referring Physician: Zoe Patient:Scarlet Murguia : 1935 Age: 83 y.o. female INDICATIONS: Syncope and collapse, cardiac mumur Procedure: Continuous ambulatory ECG for the duration of 29 days 17 hours. During this rec ording, the underlying rhythm is sinus the lowest heart rate was 46 BPM, the highest heart r ate 110 BPM, averaging 64 BPM. During this recording interval, There were 57 episodes of SV T the the longest of which was 24 beats at 126 BPM, the fastest of which was 4 beats at 151 BPM. Also, there were no episodes of VT. No AV conduction abnormalities observed. The hear t rate trends did demonstrate a normal circadian pattern. In the patient's diary, there was one episode of SOB that corresponded to sinus rhythm. Impressions: 1: Sinus as described above. 2: No clinically significant arrhythmias detected. 3: No AV conduction abnormality detected. 4:Symptoms of "SOB", associated with sinus rhythm. Recomendations: Clinical correlation suggested. Smitha Griffin DO documented in this enco unter Plan of Treatment +--------+ + + + + | Date | Type | Specialty | Care Team | Description | +--------+ + + + + | 04/02/ | Appointment | Pain Medicine | Sam Samuels DO | | | 2019 | | | [address] [facility] | | | | | | [place] [address] | | | | | | [phone] | | | | | | | | +--------+ + + + + | 05/17/ | Office | Cardiology | Zaki Jeniffer | | | 2020 | Visit | | [address] | | | | | | [address] | | | | | | [place] [address] | | | | | | [phone] | | | | | | | | +--------+ + + + + documented as of this encounter Visit Diagnoses + + | Diagnosis | + + | Syncope and collapse | + + | Murmur, heart Undiagnosed cardiac murmurs | + + documented in this encounter
--- OUTSIDE RECORDS SUMMARY | ~2020-03-18 | XMS | Encounter Summary ---
Demographics + + + | Address | [address] | | | [place] [address] | + + + | Home Phone [...] + + + | Author | [facility] | | | and [place] | + + + | Organization | [facility] | | | [...] + + | 10/20/ | Hospital | [facility] | | | | 1999 | Encounter | MED [facility] | | | | | | [address] | | | | | | [place] | | | | | | [address] | | | | | | [phone] | | | +--------+ + + + [...] | | | | | [place] [address] | | | | | | [phone] | | | | | | | | +--------+ + + + + | 05/17/ | Office | Cardiology | Jeniffer Haines | | | 2019 | Visit | | [address] | | | | | | [address] | | | | | | [place] [address] | | | | | | [phone] | | | | | | | | +--------+ + + + + documented as of this encounter Visit Diagnoses Not on filedocumented in this encounter"
--- OUTSIDE RECORDS SUMMARY | ~2020-03-18 | XMS | Encounter Summary ---
Demographics + + + | Address | [address] | | | [place] [address] | + + + | Home Phone [...] Team Providers + +------+ + | Care Inspector Tester Sorter Name | Role | Phone | + [...] | | | [place], [place] | [place] [address] | Spondylolisthesis at | | | | [address] | [phone] | L4-L5 level; | | | | [phone] | | Bilateral lumbar | | | [...] [address] | | | | | | [place] [address] | | | | | | [phone] | | | | | | | | +--------+ + + + + | 05/17/ | Office | Cardiology | Zaki Jeniffer | | | 2019 | Visit | | [address] | | | | | | [address] | | | | | | [place] [address] | | | | | | [phone] | | | | | | | [...]
--- OUTSIDE RECORDS SUMMARY | ~2020-03-18 | XMS | Encounter Summary ---
Demographics + + + | Address | [address] | | | [place] [address] | + + + | Home Phone | | + + + | Preferred Language | Unknown | + + + | Marital Status | | + + + | Confucianist Affiliation | 1077 | + + + | Race | White | + + + | Ethnic Group | Not or | + + + Author + + + | Author | [facility] | | | and [place] | + + + | Organization | [facility] | | | [...] Team Providers + +------+ + | Care Clubhouse Attendant Name | Role | Phone | + +------+ + | Susan Leos | PCP | | | PA-C | | | + +------+ + Reason for Visit + +--------+ + | Reason | Onset | Comments | | | Date | | + +--------+ + | Follow-up | 12/08/ | | | | 2020 | | + +--------+ + Encounter Details +--------+ + + + + | Date | Type | Department | Care Team | Description | +--------+ + + + + | 12/08/ | Telephone | [facility] | Sam Samuels DO | Follow-up | | 2020 | | [facility] | [address] | | | | | [address] | [place] [address] | | | | | [address] | [phone] | | | | | [place], [place] | | | | | | [address] | | | | | | [phone] | | | +--------+ + + + [...] this encounter Miscellaneous Notes Telephone Encounter - Desiree Martinez, Cyber Security Architect - 12/09/2019 2:34 PM PDTCalled a nereyda spoke with patient to follow up on the procedure they had with Dr. Samuels. Patient repor ts doing well, no concerns. Pedro Pablo jennings in this encounter Plan of Treatment +--------+ + + + + | Date | Type | Specialty | Care Team | Description | +--------+ + + + + | 04/02/ | Appointment | Pain Medicine | Sam Samuels DO | | 2019 | | | [address] | | | | | | [place] [address] | | | | | | [phone] | | | | | | | | +--------+ + + + + | 05/17/ | Office | Cardiology | Darynpaola Jeniffer | | 2019 | Visit | | [address] | | | | | | [address] | | | | | | [place] [address] | | | | | | [phone] | | | | | | | | +--------+ + + + + documented as of this encounter Visit Diagnoses Not on filedocumented in this encounter"
--- OUTSIDE RECORDS SUMMARY | ~2020-03-18 | XMS | Encounter Summary ---
Demographics + + + | Address | [address] | | | [place] [address] | + + + | Home Phone | | + + + | Preferred Language | Unknown | + + + | Marital Status | | + + + | Moravian Affiliation | 1077 | + + + | Race | White | + + + | Ethnic Group | Not or | + + + Author + + + | Author | [facility] | | | and [place] | + + + | Organization | [facility] [...] Team Providers + +------+ + | Care Sales Administration Manager Name | Role | Phone | [...] + + + | Closed | | Diagnostic | Diagnoses | Elias | [facility] | | | | Radiology | Cardiac | [place], | [facility] | | | | | murmur | [address] | | | | | Procedures | [address] | [address] | | | | | ECHO | [address] [address] | [place], [place] | | | | | Complete | [place], [place] | [address] | | | | | | [address] | Phone: | | | | | | Phone: | [phone] | | | | | | [phone] | Fax: | | | | | | Fax: | [phone] | | | | | | [phone] | | +--------+--------+ + + + + Reason for Visit + + + | Reason | Comments | + + + | New Patient | new patient | + + + Evaluate & Treat (Routine) +--------+--------+ + + + + | Status | Reason | Specialty | Diagnoses / | Referred By | Referred To | | | | | Procedures | Contact | Contact | +--------+--------+ + + + + | Closed | | Cardiology | Diagnoses | Brown, | Elias, | | | | | Cardiac | Susan | DO [place] | | | | | murmur, | Paty, | [address] | | | | | unspecified | PA-C [address] | | | | | Procedures | [place] | [place], [place] | | | | | CONSULT | Ave | [address] Phone: | | | | | | [place], | [phone] | | | | | | [place] | Fax: | | | | | | [address] | [phone] | | | | | | Phone: | | | | | | | [phone] | | | | | | | Fax: | | | | | | | [phone] | | +--------+--------+ + + + + Encounter Details +--------+---------+ + + + | Date | Type | Department | Care Team | Description | +--------+---------+ + + + | 06/30/ | Office | [facility] | [place] Griffin DO | Cardiac murmur | | 2020 | Visit | CARDIOLOGY [place] | [address] | (Primary Dx); | | | | [address] | [place], [place] | Syncope, unspecified | | | | [address] | [address] | syncope type; | | | | [place] | | Hypertension, | | | | [address] | | unspecified type | | | | [phone] | | | +--------+---------+ + + + [...] + + + | Blood Pressure | 138/60 | 06/30/2019 2:22 PM | | | | | PST | | + + + + + | Pulse | 70 | 06/30/2019 2:22 PM | | | | | PST | | + + + + + | Temperature | - | - | | + + + + + | Respiratory Rate | - | - | | + + + + + | Oxygen Saturation | 95% | 06/30/2019 2:22 PM | | | | | PST | | + + + + + | Inhaled Oxygen | - | - | | | Concentration | | | | + + + + + | Weight | 70.3 kg (155 lb) | 06/30/2019 2:22 PM | | | | | PST | | + + + + + | Height | 167.6 cm (5' 6") | 06/30/2019 2:22 PM | | | | | PST | | + + + + + | Body Mass Index | 25.02 | 06/30/2019 2:22 PM | | | | | PST | | + + + + + documented in this encounter Progress Notes [place] Griffin DO - 06/30/2019 2:20 PM PST [facility] Cardiology Cardiology Consult Note Reason for Consultation: murmur Requesting Physician: Susan Leos* History Obtained From: patient HISTORY OF PRESENT ILLNESS: The patient is a very pleasant 83-year-old female, who presents to the Cardiology office fo r initial consultation regarding a murmur. The patient reports that she has had a cardiac m urmur since she was 6 years old. She has never had an echocardiogram that she is aware of. Recently, she has been doing at her baseline. She does have a history of frequent falls in the past. She recently underwent an ORIF for hip fracture. After this, she developed a p rovoked DVT and PE. She is presently on Xarelto and tolerating anticoagulation well without any bleeding issues. She reports that she is not a very active individual. She does walk her dog occasionally for about a half a mile at a time and is able to do all of her ADLs. S he denies any issues with shortness of breath or chest pains with this activity. She denies any lower extremity swelling, orthopnea, PND. She reports that about 2 years ago, she had an episode of syncope while she was walking her dog and had recurrent episodes of syncope w hen she was able to get herself back in her house. She did go to the hospital during that e pisode. More recently, after her ORIF, she had an episode of syncope. She denies any episo josé miguel of palpitations recently. Review of Systems Constitutional: Negative for fatigue. HENT: Negative for nosebleeds. Eyes: Negative for visual disturbance. Respiratory: Negative for cough and shortness of breath. Cardiovascular: see HPI Gastrointestinal: Negative for nausea, vomiting, abdominal pain and blood in stool. Genitourinary: Negative for hematuria or dysuria. Musculoskeletal: Negative for myalgias, back pain and positive for arthralgias. Skin: Negative for color change. Neurological: Negative for dizziness, and numbness. Hematological: Does not bruise/bleed easily. Psychiatric/Behavioral: The patient is not nervous/anxious. PAST MEDICAL & SURGICAL HISTORY Past Medical History: Diagnosis Date Aortic stenosis Bilateral lumbar radiculopathy 02/04/2016 Cholelithiasis with cholecystitis DDD (degenerative disc disease), lumbar 02/04/2016 Diabetes type 2, controlled (HCC) Full dentures upper & lower GERD (gastroesophageal reflux disease) Heart murmur HTN (hypertension) Hyperlipidemia Hypothyroidism Macular degeneration Other intervertebral disc displacement, lumbar region Peripheral neuropathy Pneumonia 2005 Skin cancer Spondylolisthesis at L4-L5 level 02/04/2016 Stress incontinence in female Type 2 diabetes mellitus (HCC) Past Surgical History: Procedure Laterality Date CHOLECYSTECTOMY COLONOSCOPY 2003; 2009; 2011 polyp's removed CYSTOCELE REPAIR 1971 ERCP N/A 09/26/2016 Procedure: ERCP; Surgeon: Gregor Mccord MD; Location: [facility] MEDICAL PROCEDURE UNIT ERCP N/A 10/14/2016 Procedure: ERCP w/ stent pull; Surgeon: Gregor Mccord MD; Location: [facility] MEDICAL PROCEDU RE UNIT HARDWARE REMOVAL Left 03/29/2019 Procedure: REMOVE HARDWARE LOWER EXTREMITY-HIP; Surgeon: Mark [place] MD; [place] : [facility] MA[place] OR PARTIAL HYSTERECTOMY 1972 RECTOCELE REPAIR 1991 TAILBONE 1973 broken, partial removal TONSILLECTOMY 1938 TOTAL HIP ARTHROPLASTY Left 03/29/2019 Procedure: Posterior Total Hip Arthroplasty; Surgeon: Mark [place] MD; Location: [facility] MAIN OR MEDICATIONS Home Medications Outpatient Encounter Medications as of 06/30/2019 Medication Sig Dispense Refill atenolol (TENORMIN) 25 mg tablet Take 25 mg by mouth Daily. Calcium Carb-Cholecalciferol (CALCIUM 500 + D3 PO) Take 1 tablet by mouth 2 times daily . cephalexin (KEFLEX) 500 mg capsule Take 50 mg by mouth Daily. Cetirizine HCl (ALLERGY RELIEF) 10 MG liqui-gel Take 10 mg by mouth Daily. [employer]S TRIPLE MAGNESIUM COMPLEX PO Take by mouth. docusate sodium (COLACE) 100 mg capsule Take 100 mg by mouth Twice daily as needed. gabapentin (NEURONTIN) 300 mg capsule Take 300 mg by mouth 3 times daily. Garlic 1000 MG CAPS Take 1 tablet by mouth Daily. levothyroxine (SYNTHROID, LEVOTHROID) 100 mcg tablet Take 100 mcg by mouth every mornin g (before breakfast). losartan (COZAAR) 50 mg tablet Take 50 mg by mouth Daily. [DISCONTINUED] Multiple Vitamin (THERAGRAN PO) Take 1 tablet by mouth Daily. Multiple Vitamins-Minerals ( MACULAR HEALTH) MISC Take by mouth. [DISCONTINUED] Roosevelt-3 Fatty Acids (PRO NUTRIENTS OMEGA 3 PO) Take 1 tablet by mouth Da aissatou. omeprazole (PRILOSEC) 20 mg capsule Take 20 mg by mouth every morning (before breakfast ). ondansetron (ZOFRAN ODT) 4 mg disintegrating tablet Take 4 mg by mouth every 8 hours as needed. POTASSIUM CITRATE PO Take by mouth. Psyllium (METAMUCIL PO) Take by mouth Daily. venlafaxine (EFFEXOR XR) 75 mg 24 hr capsule Take 75 mg by mouth Daily. 3 XARELTO 20 MG tablet Take 20 mg by mouth Daily. No facility-administered encounter medications on file as of 06/30/2019. 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 Appears approximately stated age. HEENT: Normocephalic, atraumatic. EYES: PERRL, sclerae anicteric, no xanthelsasmas NECK: No JVD, lymphadenopathy, thyromegaly, bruits. Carotid pulses are 2+ bilaterally LUNGS: Clear bilaterally, with no rales, rhonchi or wheezing noted, respirations unlabored HEART: Nondisplaced PMI, regular rate and rhythm, S1, S2 normal. II/ systolic murmur, n o rubs or gallops noted. ABDOMEN: Soft, nontender, no organomegaly, masses or bruits. Bowel sounds are normal in a ll 4 quadrants. EXTREMITIES: No edema. Radial pulses 2+ bilaterally. DP and PT pulses are 2+ bilaterally. SKIN: Warm and dry, capillary refill is normal, no lesions. NEUROLOGIC: Awake, alert and oriented x 3. No focal motor deficits. PSYCHIATRIC: Appropriate, affect appears normal DATA Lab Results Component Value Date WBC 7.06 03/21/2019 HGB 9.2 (L) 03/30/2019 HCT 27.3 (L) 03/30/2019 PLT 294 03/21/2019 No results found for: INR, PTT Lab Results Component Value Date NA 139 03/21/2019 K 3.8 03/21/2019 CL 102 03/21/2019 CO2 29 03/21/2019 BUN 7 (L) 03/21/2019 CREA 0.70 03/21/2019 TSH 0.98 02/25/2016 Lab Results Component Value Date TSH 0.98 02/25/2016 Blood work from 06/21/2019 reviewed including iron 11.4, total iron binding capacity 423, per cent iron saturation 2.7, transferrin 301, ferritin 18.5, B12 559, folate greater than 20, h aptoglobin 283, CBC white blood cell count 6.8, hemoglobin 9.3, hematocrit 30.0, MCV 72, troy telet count 407, sodium 133, potassium 3.5, chloride 98, carbon dioxide 25, anion gap 13, gl ucose 216, creatinine 0.7, GFR 80, AST 11, ALT 6, alkaline phosphatase 78, total bilirubin 0 .3, magnesium 1.4. EK06/30/2019 normal sinus rhythm 65 bpm, normal EKG 05/11/2019 normal sinus rhythm 75 bpm, nonspecific ST abnormality. Last Echo: Last stress test: Last cath: Carotid US: AAA screening: Lower extremity US: OTHERS: ASSESSMENT & PLAN 1. Systolic murmur 2. Syncope 3. History provoked DVT 4. HTN 5. Hypothyroidism 6. GERD -The patient is a pleasant 83-year-old female who presents to the cardiology office for regan morales consultation regarding a history of murmur. She has not had a recent echocardiogram. She has a history of frequent falls and believes that she had a recent syncopal episode. We discussed doing an extended monitor to ensure she is not having any abnormal arrhythmias th at could be contributing. -Obtain a complete echocardiogram -Obtain a 1 month event monitor -Continue atenolol 25 mg by mouth daily -Continue losartan 50 mg by mouth daily -Continue Xarelto 20 mg by mouth daily - Follow up in 2 months with Jeniffer Haines to follow up results. Thank you for allowing me to participate in the care of this patient. Primary Care Physician: KYA Toscano DO 06/30/2019 documented in this enco unter Plan of Treatment +--------+ + + + + | Date | Type | Specialty | Care Team | Description | +--------+ + + + + | 04/02/ | Appointment | Pain Medicine | Sam Samuels DO | | | 2019 | | | [address] [facility] | | | | | | [place] [address] | | | | | | [phone] | | | | | | | | +--------+ + + + + | 05/17/ | Office | Cardiology | Jeniffer Haines | | | 2019 | Visit | | [address] | | | | | | [address] | | | | | | [place] [address] | | | | | | [phone] | | | | | | | | +--------+ + + + + + + +--------+ + + | Name | Type | Priori | Associated Diagnoses | Order Schedule | | | | ty | | | + + +--------+ + + | ECHO Complete | Echocardiog | Routin | Cardiac murmur | Expected: | | | jennifer | e | | 07/07/2019, Expires: | | | | | | 06/30/2020 | + + +--------+ + + | Event monitor - 4 | ECG | Routin | Syncope, | Expected: | | week | | e | unspecified syncope | 07/07/2019, Expires: | | | | | type | 06/30/2020 | + + +--------+ + + documented as of this encounter Procedures + +--------+ + + + | Procedure Name | Priori | Date/Time | Associated Diagnosis | Comments | | | ty | | | | + +--------+ + + + | LABS - EXTERNAL SCAN | | 07/12/2019 | | Results for this | | | | 12:00 AM | | procedure are in the | | | | PST | | results section. | + +--------+ + + + | ECG 12 LEAD | Routin | 06/30/2019 | Cardiac murmur | Results for this | | | e | 2:28 PM | | procedure are in the | | | | PST | | results section. | + +--------+ + + + documented in this encounter Results LABS - EXTERNAL SCAN (07/12/2019 12:00 AM PST) + + + | Narrative | Performed At | + + + | Ordered by an | | | unspecified provider. | | + + + ECG 12 lead (06/30/2019 2:28 PM PST) + + + + + + | [...] + + + + | P-R | 172 | ms | [facility] | | | INTERVAL | | | | | + + + + + + | QRS | 84 | ms | [facility] | | | DURATION | | | | | + + + + + + | Q-T | 412 | ms | [facility] | | | INTERVAL | | | | | + + + + + + | Q-T | 428 | ms | [facility] | | | INTERVAL | | | | | | (CORRECTED) | | | | | + + + + + + | P WAVE AXIS | 65 | degrees | [facility] | | + + + + + + | QRS AXIS | 53 | degrees | [facility] | | + + + + + + | T AXIS | 40 | degrees | [facility] | | + + + + + + | INTERPRETAT | Normal sinus | | [facility] | | | ION TEXT | rhythmNormal ECGWhen | | | | | | compared with ECG of | | | | | | 21-MAR-2019 15:14,No | | | | | | significant change was | | | | | | foundConfirmed by ELIAS | | | | | | SMITHA JAMESON ([id number]) on | | | | | | 07/13/2019 12:14:35 PM | | | | + + [...] + | Diagnosis | + + | Cardiac murmur - Primary Undiagnosed cardiac murmurs | + + | Syncope, unspecified syncope type | + + | Hypertension, unspecified type | + + documented in this encounter
--- OUTSIDE RECORDS SUMMARY | ~2020-03-18 | XMS | Encounter Summary ---
Demographics + + + | Address | [address] | | | [place] [address] | + + + | Home Phone [...] Team Providers + +------+ + | Care Service Shop Foreman Name | Role | Phone | + [...] | | | | | Spondylolist | [place], [place] | [address] | | | | | [place] | [address] | Phone: | | | | | L4-L5 level | Phone: | [phone] | | | | | Bilateral | [phone] | Fax: | | | | | lumbar | Fax: | [phone] | | | | | radiculopath | [phone] | | | | | | y [...] lumbar (Primary Dx); | | | | [place], [place] | [place] [address] | Spondylolisthesis | | | | [address] | [phone] | at L4-L5 level; | | | | [phone] | | Bilateral lumbar | | | [...] [address] | | | | | | [place] [address] | | | | | | [phone] | | | | | | | | +--------+ + + + + | 05/17/ | Office | Cardiology | Jeniffer Haines | | | 2019 | Visit | | [address] | | | | | | [address] | | | | | | [place] [address] | | | | | | [phone] | | | | | | | [...]
--- OUTSIDE RECORDS SUMMARY | ~2020-03-18 | XMS | Encounter Summary ---
Demographics + + + | Address | [address] | | | [place] [address] | + + + | Home Phone | | + + + | Preferred Language | Unknown | + + + | Marital Status | | + + + | Confucianism Affiliation | 1077 | + + + | Race | White | + + + | Ethnic Group | Not or | + + + Author + + + | Author | [facility] | | | and [place] | + + + | Organization | [facility] | | | and [...] Team Providers + +------+ + | Care Railway Patrol Officer Name | Role | Phone | + +------+ + | Susan Leos | PCP | | | PA-C | | | + +------+ + Reason for Visit +--------+ + | Reason | Comments | +--------+ + | Other | 4 week monitor | +--------+ + Service/Procedure (Routine) +--------+--------+ + + + + | Status | Reason | Specialty | Diagnoses / | Referred By | Referred To | | | | | Procedures | Contact | Contact | +--------+--------+ + + + + | Closed | | Cardiology | Diagnoses | Griffin, | Hari | | | | | Syncope and | DO [place] | Cardiology | | | | | collapse | [address] | | | | | Procedures | [address] | [address] | | | | | EVENT | [address] | [address] | | | | | [address]IT[address] | [place], [place] | [place], [place] | | | | | WEEK 4 week | [address] | [address] | | | | | | Phone: | Phone: | | | | | | [phone] | [phone] | | | | | | Fax: | Fax: | | | | | | [phone] | [phone] | +--------+--------+ + + + + Encounter Details +--------+ + + + + | Date | Type | Department | Care Team | Description | +--------+ + + + + | 07/07/ | Procedure | [facility] | [place] Griffin DO | Syncope, unspecified | | 2019 | visit | CARDIOLOGY [place] | [address] | syncope type | | | | [address] | [place] [place], [place] | | | | | [address] | [address] | | | | | [place], [place] | | | | | | [address] | | | | | | [phone] | | | +--------+ + + + [...] documented as of this encounter Progress Notes Lina Recinos, Drafting Teacher - 07/07/2019 3:30 PM PST4 week cardiac event monitor placed on patient. EOB/Billing information discussed. Instructions given and understood. P atient [facility] any [facility] or monitor questions. JJEZ:PHLEBOTOMY INSTRUCTOR-AAMA. doc umented in this encounter Plan of Treatment +--------+ + + + + | Date | Type | Specialty | Care Team | Description | +--------+ + + + + | 04/02/ | Appointment | Pain Medicine | Sam Samuels DO | | | 2019 | | | [address] | | | | | | [place] [address] | | | | | | [phone] | | | | | | | | +--------+ + + + + | 05/17/ | Office | Cardiology | Jeniffer Haines | | | 2019 | Visit | | [address] | | | | | | [address] | | | | | | [place] [address] | | | | | | [phone] | | | | | | | | +--------+ + + + + documented as of this encounter Visit Diagnoses + + | Diagnosis | + + | Syncope, unspecified syncope type | + + documented in this encounter"
--- OUTSIDE RECORDS SUMMARY | ~2020-03-18 | XMS | Encounter Summary ---
Demographics + + + | Address | [address] | | | [place] [address] | + + + | Home Phone | | + + + | Preferred Language | Unknown | + + + | Marital Status | | + + + | Christianity Affiliation | Unknown | + + + [...] Team Providers + +------+ + | Care Electrical Supervisor Name | Role | Phone | [...] [address] | | | | | | [place], [place] | | | | | | [address] | | | +--------+ + + + [...]
--- OUTSIDE RECORDS SUMMARY | ~2020-03-18 | XMS | Encounter Summary ---
Demographics + + + | Address | [address] | | | [place] [address] | + + + | Home Phone | | + + + | Preferred Language | Unknown | + + + | Marital Status | | + + + | Denominational Affiliation | 1077 | + + + | Race | White | + + + | Ethnic Group | Not or | + + + Author + + + | Author | [facility] | | | and [place] | + + + | Organization | [facility] | | | [...] Team Providers + +------+ + | Care Message Broker Developer Name | Role | Phone | [...] | | | | | | | MO ERCP DX | | | | | [...] + + | 09/26/ | Anesthesia | [facility] | Enrique Llanos | | | 2017 | Event | [facility] OP | MD Mc [address] | | | | | [address] | [address] [place] | | | | | [place] | [place] [address] | | | | | [address] | [phone] | | | | | [phone] | | | +--------+ + + + [...] [address] | | eral | Antecubital; hypu-pdx-icnorz | Patsy Dixon RN | P[place] [...] encounter [place] Notes Anesthesia Postprocedure Evaluation - Enrique Llanos MD - 09/26/2016 4:20 PM PDTFo rmatting of this note might be different from the original. ANESTHESIA POSTANESTHESIA EVALUATION Scarlet Murguia 80 y.o. female 1935 [id number] BP elevated during case and post-op. Home Losartan administered. Nausea treated in recovery also. No anesthesia complications. Procedure(s) ERCP (N/A Mouth) Cooperates? Yes Mental Status Performs simple tasks. Respiratory Satisfactory - Airway patent (self maintained). Cardiovascular Satisfactory Blood pressure and heart rate acceptable Temperature Satisfactory Pain Satisfactory N/V Control Satisfactory Hydration Satisfactory No signs of dehydration Complications None apparent Filed Vitals: 09/26/16 1430 09/26/16 1445 09/26/16 1500 BP: 209/67 189/68 Pulse: 42 72 56 Temp: Resp: SpO2: 100% 82% 99% Electronically signed by Enrique Llanos MD 09/26/2016 16:20 [facility] nesthesia Prep rocedure Evaluation - Enrique Llanos MD - 09/26/2016 12:25 PM PDT ANESTHESIA PREANESTHESIA EVALUATION Scarlet Murguia 80 y.o. female 1935 [id number] Procedure(s): ERCP (N/A Mouth) Medical history, anesthesia, medications, allergy, NPO status verified histories reviewed. ECG reviewed. Labs reviewed. Review of Systems / Med History Cardiovascular (+) hypertension (On ARB) (+) Valvular disease: , Exercise tolerance >4 METS Pulmonary Negative except where noted below. Neurology (+) neuropathy (On gabapentin), chronic pain (back pain) Psychology Negative except where noted below. Gastrointestinal/Hepatic S/p nichol with stone in common bile duct. (+) reflux/GERD, hyperlipidemia Endocrine (+) hypothyroidism (+) Diabetes: type 2, NIDDM Other . Physical Exam Airway MP I, TM >3 FB, Mouth opening >2 FB. Neck: full ROM, extends >30 degrees. Dental ; (+) dentures-lower and dentures-upper. CV Rhythm regular. Rate normal. (+) murmur (3/6 systolic murmur heard throughout). Pulm Clear to auscultation bilaterally. (-) wheezing and rhonchi. Neuro Grossly normal. Anesthesia Plan ASA 3 Type: TIVA and general. Induction: Intravenous. Potential problems: None anticipated. Monitors: Standard ASA monitors. Consent statement:Anesthetic plan, alternatives, risks and benefits discussed with patient. Risks discussed included (but were not limited to): pain, respiratory events, voice injury, dental injury, perioperative CV events, sore throat, nausea, . Consenting person understands and agrees to proceed. PARQ. All questions answered in pre-op area before proceeding to GI suite - agrees to plan of TIV A with possibility of advanced airway if clinically indicated. . Electronically Signed by: Enrique Llanos MD [facility] date/time: 09/26/2016 12:25 documented in t his encounter Plan of Treatment +--------+ + + + + | Date | Type | Specialty | Care Team | Description | +--------+ + + + + | 04/02/ | Appointment | Pain Medicine | Sam Samuels, | | | 2019 | | | [address] [facility] | | | | | | [place] [address] | | | | | | [phone] | | | | | | | | +--------+ + + + + | 05/17/ | Office | Cardiology | Jeniffer Haines | | | 2019 | Visit | | [address] | | | | | | [address] | | | | | | [place] [address] | | | | | | [phone] | | | | | | | [...] | | | | Intravenous, PRN, Starting Thu | | 17 12:37 | | | [...]
--- OUTSIDE RECORDS SUMMARY | ~2020-03-18 | XMS | Encounter Summary ---
Demographics + + + | Address | [address] | | | [place] [address] | + + + | Home Phone | | + + + | Preferred Language | Unknown | + + + | Marital Status | | + + + | Adventist Affiliation | 1077 | + + + | Race | White | + + + | Ethnic Group | Not or | + + + Author + + + | Author | [facility] | | | and [place] | + + + | Organization | [facility] | | | [...] Team Providers + +------+ + | Care Help Desk Support Name | Role | Phone | + [...] + + | 09/26/ | Hospital | [facility] | Gregor Mccord MD | Choledocholithiasis | | 2017 | Encounter | MED CTR MP INTRA OP | [address], [place] | (Primary Dx) | | | | [address] | [address] | | | | | [place] | [address] | | | | | [address] | | | | | | [phone] | | | +--------+ + + + [...] or severe belly or abdominal pain Fever [id number] (37.7C) or chills Upset stomach (nausea) and vomiting Black or tarry stools Date Last Reviewed: 11/25/201419995517-3348 [employer]. [address] [place] [address]. All righ ts reserved. This information is [...] | | | | 0 | | ([facility]) | | | | | | | MISC | | | | | | + + + +---------+ + + | [place]-3 Fatty | Take 1 tablet by | [...] 3 Years of Education: 12 Occupational History [employer] F[employer]OR[employer] RETIRED Social History Main Topics Smoking status: [...] INSTRUCTIONS Patient: Scarlet Murguia : 1935 Acct: [id number] Exam Date: Monday, September 26, 2016 Doctor: [...] da y. Avoiding fatty foods such as Indonesian [place], hamburgers, carrera, ham and pork products, wi [...] by Gregor Mccord MD at 1:21 PM [facility] Ana Moon Chaplain - 09/26/2016 12:12 PM PDTPro blem: Patient Care Overview (Adult) Goal: Care Team Goals & Evaluation PROBLEM-RELATED GOALS: STRATEGY TO ACHIEVE GOALS: RESTRAINT-RELATED GOALS: STRATEGIES TO ACHIEVE RESTRAINT GOALS: Spiritual Care Scarlet Murguia is a 80 y.o. female who is admitted for Common bile duct stone (K80.50). Spiritual Evaluation: Lab Animal Technologist received an electronic referral that the patient had requ ested prayer before surgery. Scarlet was waiting alone lying on the gurney. She cheerfully we lcomed a family assistant visit. She said that her family gathered around her and offered prayer la night. She is a member of [employer] and asked that the episcopalian be no tified of her hospitalization. She has a strong virginie and belief in prayer. Spiritual Intervention: Offered pastoral presence and encouragement. Shared prayer. Left a message for the pr internship at [employer] Spiritual Outcomes: Scarlet expressed her appreciation [...] | | 2019 | | | [address] [facility] | | | | | | [place] [address] | | | | | | [phone] | | | | | | | | +--------+ + + + + | 05/17/ | Office | Cardiology | Jeniffer Haines | | | 2020 | Visit | | [address] | | | | | | [place] | | | | | | [place] [address] | | | | | | [phone] | | | | | | | [...] | | | | VONDA SHEPPARD MD ([id number]) | | | | | | on [...] WAMT | | GastroenterologyPatient Name: November San FranciscoProcedure Date: 09/26/2016 | PROVATION | | 12:24 PMMRN: [id number] #: [id number] of : | | | 1935dmit Type: AmbulatoryAge: 80Room: [facility] 01Gender: FemaleNote | | | Status: FinalizedAttending MD: Gregor Mccord , [facility] COUNTYrocedure: | | | ERCPIndications: Filling defect on intraoperative | | | cholangiogramProviders: Gregor Mccord MD, Jalyn Darden | | | ROBI Ring, Pablo Rothman CMA, | | | Laurie Hammond, Health And Social Care TeacherPaty | | | Michelle, Health And Social Care Teacher, Enrique Llanos MD (Anesthesia | | | [...] | | | the anesthesiologist and the hospital laboratory technician in the endoscopy suite. | | [...] the procedure | | | well.Findings: A dealer support technician film of the abdomen was obtained. [...] | | 12:39:22 PMScope Out: 1:06:30 PM [facility] | | | [place], [address] [place] [address] | | | - Continue present medications. [...] |Scope Out: 1:06:30 PM | | | [facility], [address] [place] [address] | | | [id number] | | + + -+ + +---------+ [...] | | | | VONDA SHEPPARD MD ([id number]) | | | | | | on [...]
--- OUTSIDE RECORDS SUMMARY | ~2020-03-18 | XMS | Encounter Summary ---
Demographics + + + | Address | [address] | | | [place] [address] | + + + | Home Phone [...] + | Author | [facility] | | | and [place] | + + + | Organization | [facility] | | | and [...] Team Providers + +------+ + | Care Ingredient Handler Name | Role | Phone | + [...] + + | 11/20/ | Telephone | [facility] | Sam Samuels, DO | Other (covid | | 2019 | | [facility] | [address] | screening) | | | | MEDICINE [facility] | [place] [address] | | | | | [address] | [phone] | | | | | [place], [place] | | | | | | [address] | | | | | | [phone] | | | +--------+ + + + [...] Notes Telephone Encounter - Maria Elena Schmid, Production Control Expediter - 11/21/2019 12:30 PM PDT Proactive screening [...] [address] | | | | | | [place] [address] | | | | | | [phone] | | | | | | | | +--------+ + + + + | 05/17/ | Office | Cardiology | Jeniffer Haines | | 2019 | Visit | | [address] | | | | | | [address] | | | | | | [place] [address] | | | | | | [phone] | | | | | | | | +--------+ + + + + documented as of this encounter Visit Diagnoses Not on filedocumented in this encounter"
--- OUTSIDE RECORDS SUMMARY | ~2020-03-18 | XMS | Encounter Summary ---
Demographics + + + | Address | [address] | | | [place] [address] | + + + | Home Phone [...] Team Providers + +------+ + | Care Conveyor Belt Repairer Name | Role | Phone | + [...] [place] | | | | | | [address] | | | | | | [phone] | | | +--------+ + + + [...] | | | | | | [place] [address] | | | | | | [phone] | | | | | | | | +--------+ + + + + | 05/17/ | Office | Cardiology | Jeniffer Haines | | | 2019 | Visit | | [address] | | | | | | [address] | | | | | | [place] [address] | | | | | | [phone] | | | | | | | | +--------+ + + + + documented as of this encounter Visit Diagnoses + + | Diagnosis | + + | Other screening mammogram | + + documented in this encounter"
--- OUTSIDE RECORDS SUMMARY | ~2020-03-18 | XMS | Encounter Summary ---
Demographics + + + | Address | [address] | | | [place] [address] | + + + | Home Phone [...] [facility] | | | and [place] | + + + | Organization | [facility] | | | and [...] Team Providers + +------+ + | Care Strap Folding Machine Operator Name | Role | Phone [...] [address] | | | | | | [facility] | | | | | | [address] | | | | | | [phone] | | | +--------+ + + + [...] [address] | | | | | | [place] [address] | | | | | | [phone] | | | | | | | | +--------+ + + + + | 05/17/ | Office | Cardiology | Jeniffer Haines | | | 2019 | Visit | | [address] | | | | | | [address] [address] | | | | | | [place] [address] | | | | | | [phone] | | | | | | | | +--------+ + + + + documented as of this encounter Visit Diagnoses + + | Diagnosis | + + | Other screening mammogram | + + documented in this encounter"
--- OUTSIDE RECORDS SUMMARY | ~2020-03-18 | XMS | Encounter Summary ---
Demographics + + + | Address | [address] | | | [place] [address] | + + + | Home Phone [...] Team Providers + +------+ + | Care Staff Educator Name | Role | Phone | + [...] | 03/29/19) | | | | BLVD [place], [place] | [place] | | | | | [address] | [place] [address] | | | | | [phone] | [phone] | | | | | | | [...] post operative issues and was seen/treated in [place]. Daughter states that she attempted to call [...] | | | | | [place] [address] | | | | | | [phone] | | | | | | | | +--------+ + + + + | 05/17/ | Office | Cardiology | Jeniffer Haines | | | 2020 | Visit | | [address] | | | | | | [address] [address] | | | | | | [place] [address] | | | | | | [phone] | | | | | | | | +--------+ + + + + documented as of this encounter Visit Diagnoses Not on filedocumented in this encounter"
--- OUTSIDE RECORDS SUMMARY | ~2020-03-18 | XMS | Encounter Summary ---
Demographics + + + | Address | [address] | | | [place] [address] | + + + | Home Phone [...] | [facility] | | | and [place] | + [...] Team Providers + +------+ + | Care Hatch Supervisor Name | Role | Phone | + +------+ + | Susan Leos | PCP | | | PA-C | | | + +------+ + Reason for Visit + +--------+ + | Reason | Onset | Comments | | | Date | | + +--------+ + | Post-op Question | 04/05/ | | | | 2019 | | + +--------+ + Encounter Details +--------+ + + + + | Date | Type | Department | Care Team | Description | +--------+ + + + + | 04/05/ | Telephone | [facility] | Mark [place] | Post-op Question | | 2019 | | [place] [address] | MD Alaina [address] | | | | | [address] [place], [place] | [place] [address] | | | | | [address] | [place] [address] | | | | | [phone] | [phone] | | | | | | | [...] this encounter Miscellaneous Notes Telephone Encounter - Estephania Kidd RN - 04/05/2019 1:14 PM PDTFollow-up call to stephanie decker. Patient states that her swelling has been present since surgery but got worse today. Asked patient to have daughter call when she returns. elephone Encounter - Estephania Kidd RN - 04/05/2019 9:38 AM PDTDOS: 03/29/19 [place] Return call to patient. Spoke to November. She states that her left leg from one end to the other. She states that her knee is swollen . She states that her knee really hurts where it is so swollen, the knee is the worse. No red ness in her leg. Patient has baseline neuropathy. No changes. Patient was not sent home with compression socks. Recommended patient get a pair from any home health store. Patient is taking her aspirin. Advised patient to limit activity to 10 minutes every hour. Ice hip and knee. Message sent to Dr. [place] for review. elephone Encounter - Edwige Navas - 04/05/2019 9:28 AM PDTDr. [place]'s pa tient: Chrissie daughter called and has a some post op questions. Please all her back to disc uss. documented in thi s encounter Plan of Treatment +--------+ + + + + | Date | Type | Specialty | Care Team | Description | +--------+ + + + + | 04/02/ | Appointment | Pain Medicine | Sam Samuels DO | | 2019 | | | [address] | | | | | | [place] [address] | | | | | | [phone] | | | | | | | | +--------+ + + + + | 05/17/ | Office | Cardiology | Jeniffer Haines | | 2019 | Visit | | [address] | | | | | | [address] [address] | | | | | | [place] [address] | | | | | | [phone] | | | | | | | | +--------+ + + + + documented as of this encounter Visit Diagnoses Not on filedocumented in this encounter"
--- OUTSIDE RECORDS SUMMARY | ~2020-03-18 | XMS | Encounter Summary ---
Demographics + + + | Address | [address] | | | [place] [address] | + + + | Home Phone [...] Team Providers + +------+ + | Care Hog Trader Name | Role | Phone | + [...] | | | | | | | [place] ERCP DX | | | | | | | COLLECTION | | | | | | | SPECIMEN | | | | | | | BRUSHING/WAS | | | | | | | [place] | | | | | | | [...] | | | | | [address] | [place] | | | | | [place], [place] | [address] | | | | | [address] | | | | | | [phone] | | | +--------+ + + + + Anesthesia Record + + + + + | Procedure Name | Responsible | Anesthesia Start | Anesthesia Stop Time | | | Anesthesiologist | Time | | + + + + + | ERCP w/ stent pull | Harinder Mcgowan MD | 10/14/16 1234 | 10/14/16 1301 | | (N/A Mouth) | | | [...] 1341 by | | eral | Forearm; uruz-sbn-kvmkru catheter | Patsy Dixon RN | Delicia [...] EVALUATION Scarlet Murguia 80 y.o. female 1935 [id number] Procedure(s) ERCP w/ stent pull (N/A Mouth) [...] EVALUATION Scarlet Murguia 80 y.o. female 1935 [id number] Procedure(s): ERCP w/ stent pull (N/A Mouth) [...] 04/02/ | Appointment | Pain Medicine | Sulemanabbeyjason SamDO | | | 2019 | | | [address] | | | | | | [place] [address] | | | | | | [phone] | | | | | | | | +--------+ + + + + | 05/17/ | Office | Cardiology | Jeniffer Haines | | | 2019 | Visit | | [address] | | | | | | [address] [address] | | | | | | [place] [address] | | | | | | [phone] | | | | | | | [...] | | | | Intravenous, PRN, Starting Tu | | 17 12:51 | | | [...]
--- OUTSIDE RECORDS SUMMARY | ~2020-03-18 | XMS | Encounter Summary ---
Demographics + + + | Address | [address] | | | [place] [address] | + + + | Home Phone [...] Team Providers + +------+ + | Care Zipper Cutter Name | Role | Phone | [...] CH16D | | | | | | [facility] | | | | | | and Healing, | | | | | | Building [address], | | | | | | Floor [place], [place] | | | | | | [address] | | | | | | [phone] | | | +--------+ + + + [...] | | | | | | skin, [id number]. The | | | | | | [...] [facility] | [address] | [place] [address] | | | DERMATOPATHOLOGY | [address] | | | + + + + + | [facility] | [address] | [place] [address] | | | DERMATOPATHOLOGY | [address] | | | + + + + + documented in this encounter Visit Diagnoses + + | Diagnosis | + + | Other melanin hyperpigmentation | + + documented in this encounter
--- OUTSIDE RECORDS SUMMARY | ~2020-03-18 | XMS | Encounter Summary ---
Demographics + + + | Address | [address] | | | [place] [address] | + + + | Home Phone [...] Author | [facility] | | | and [place] | + + + | Organization | [facility] | | | and [...] Providers + +------+ + | Care Technical Proposal Writer Name | Role | Phone | + [...] | | | | [address] | [place] [address] | | | | | [address] | [phone] | | | | | [place], [place] | | | | | | [address] | | | | | | [phone] | | | +--------+ + + + [...] Miscellaneous Notes Telephone Encounter - Desiree Martinez Valve Technician - 12/21/2019 1:46 PM PDTLM daphne zhang patient know we got the message that she was confirming her procedure for tomorrow matteo ford at 0930 elephone Encounter - Desiree Cornejo - 12/21/2019 1:24 PM PDTJune, is returnin g call for Pre-Procedure and would like a call back. Additional Call Details: Returned call to confirm elephone Encoun Desiree Cui Valve Technician - 12/21/2019 1:22 PM PDTLM for patient [...] | | 2019 | | | [address] [facility] | | | | | | [place] [address] | | | | | | [phone] | | | | | | | | +--------+ + + + + | 05/17/ | Office | Cardiology | Jeniffer Haines | | | 2020 | Visit | | [address] | | | | | | [place] | | | | | | [place] [address] | | | | | | [phone] | | | | | | | | +--------+ + + + + documented as of this encounter Visit Diagnoses Not on filedocumented in this encounter"
--- OUTSIDE RECORDS SUMMARY | ~2020-03-18 | XMS | Encounter Summary ---
Demographics + + + | Address | [address] | | | [place] [address] | + + + | Home Phone [...] Team Providers + +------+ + | Care Interpreter Name | Role | Phone | + +------+ + | Susan Leos | PCP | | | PA-C | | | + +------+ + Encounter Details +--------+ + + + + | Date | Type | Department | Care Team | Description | +--------+ + + + + | 12/21/ | Hospital | [facility] | Motaghi, Sam, DO | | | 2020 | Encounter | [facility] | [address] | | | | | XRAY [address] | [place] [address] | | | | | [address] [place], | [phone] | | | | | [place] [address] | | | | | | [phone] | | | +--------+ + + + [...] | | 0 | | | | YY-Wupkdrvcbz-Spgzog | mouth Daily. | | | | [...] | | 2019 | | | [address] [facility] | | | | | | [place] [address] | | | | | | [phone] | | | | | | | | +--------+ + + + + | 05/17/ | Office | Cardiology | Jeniffer Haines | | | 2019 | Visit | | [address] | | | | | | [address] | | | | | | [place] [address] | | | | | | [phone] | | | | | | | [...]
--- OUTSIDE RECORDS SUMMARY | ~2020-03-18 | XMS | Encounter Summary ---
Demographics + + + | Address | [address] | | | [place] [address] | + + + | Home Phone [...] Team Providers + +------+ + | Care Carrot Harvester Name | Role | Phone | + [...] | | | | | | | [place] ERCP DX | | | | | [...] + + | 09/26/ | Hospital | [facility] | Gregor Mccord MD | | | 2017 | Encounter | MED CTR XRAY [address] | [address] | | | | | [place] | [address] [place] [address] | | | | | [place] [address] | [address] | | | | | [phone] | | | +--------+ + + + [...] + + + +---------+ + + | [place]-3 Fatty | Take 1 tablet by | [...] [address] | | | | | | [place] [address] | | | | | | [phone] | | | | | | | | +--------+ + + + + | 05/17/ | Office | Cardiology | Jeniffer Haines | | | 2019 | Visit | | [address] | | | | | | [address] | | | | | | [place] [address] | | | | | | [phone] | | | | | | | [...]
--- OUTSIDE RECORDS SUMMARY | ~2020-03-18 | XMS | Encounter Summary ---
Demographics + + + | Address | [address] | | | [place] [address] | + + + | Home Phone [...] Team Providers + +------+ + | Care Academic Affairs Director Name | Role | Phone | [...] | | | | | | | [place] ERCP DX | | | | | | | COLLECTION | | | | | | | SPECIMEN | | | | | | | BRUSHING/WAS | | | | | | | [place] | | | | | | | ANESTH,UGI | | | | | | | ENDOSCOPY | | | | | | | ERCP | | | +--------+--------+ + + + + Encounter Details +--------+ + + + + | Date | Type | Department | Care Team | Description | +--------+ + + + + | 10/14/ | Hospital | [facility] | Gregor Mccord MD | Choledocholithiasis | | 2017 | Encounter | MED CTR MP INTRA OP | [address], [place] | (Primary Dx) | | | | [address] | [address] [place], [place] | | | | | [place], [place] | [address] | | | | | [address] | | | | | | [phone] | | | +--------+ + + + [...] the test. This includes: All prescription medicines Ainy-noi-mytqfhb medicines that don't need a prescription Any [...] torn bowel. Date Last Reviewed: 2014 [employer]. [address] [place] [address]. All righ ts reserved. This information is [...] be awakened Date Last Reviewed: 04/01/2016 [employer]. [address] [place] [address]. All righ ts reserved. This information is [...] | | | 0 | | (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 Avoiding fatty foods such as [place], hamburgers, carrera, ham and pork products, wi [...] 2019 | | | [address] [facility] | | | | | | [place] [address] | | | | | | [phone] | | | | | | | | +--------+ + + + + | 05/17/ | Office | Cardiology | Jeniffer Haines | | | 2020 | Visit | | [address] | | | | | | [address] | | | | | | [place] [address] | | | | | | [phone] | | | | | | | [...] 10/14/2016 12:25 | [employer]OVATION | | PMMRN: [id number] #: [id number] of : 4Admit | | | Type: AmbulatoryAge: 80Room: [facility] 01Gender: FemaleNote Status: | | [...] the anesthesiologist and | | | the field technician in the endoscopy suite. Mental Status [...] was visible on the | | | laundromat worker film. The esophagus was successfully intubated under [...] Scope In: 12:40:12 PMScope Out: 12:55:03 PM [place] | | | [facility], [address] [place] [address] | | | [phone] | | | - Continue present medications. [...] |Scope Out: 12:55:03 PM | | | [facility], [address] [facility], [place], [place] | | | [address] | | + + -+ + +---------+ [...]
--- OUTSIDE RECORDS SUMMARY | ~2020-03-18 | XMS | Encounter Summary ---
Demographics + + + | Address | [address] | | | [place] [address] | + + + | Home Phone [...] Author | [facility] | | | and [place] | + + + | Organization | [facility] | [...] Team Providers + +------+ + | Care Sdv Pilot/Navigator/Dds Operator Name | Role | Phone | [...] + + | 10/14/ | Hospital | [facility] | Gregor Mccrod MD | | | 2017 | Encounter | MED CTR XRAY [address] | [address], [place] | | | | | [place] | [address] [place], [place] | | | | | [place] [address] | [address] | | | | | [phone] | | | +--------+ + + + [...] + + + +---------+ + + | [place]-3 Fatty | Take 1 tablet by [...] | | | | | [place] [address] | | | | | | [phone] | | | | | | | | +--------+ + + + + | 05/17/ | Office | Cardiology | Jeniffer Haines | | | 2019 | Visit | | [address] | | | | | | [place] | | | | | | [facility] [place] [address] | | | | | | [phone] | | | | | | | [...]
--- OUTSIDE RECORDS SUMMARY | ~2020-03-18 | XMS | Encounter Summary ---
Demographics + + + | Address | [address] | | | [place] [address] | + + + | Home Phone [...] | Author | [facility] | | | and [place] | + + + | Organization | [facility] | | [...] Team Providers + +------+ + | Care Human Resources Benefits Assistant Name | Role | Phone | + +------+ + | Susan Leos | PCP | | | PADex | | | + +------+ + Encounter Details +--------+ + + + + | Date | Type | Department | Care Team | Description | +--------+ + + + + | 09/16/ | Abstract | [facility] | Gregor Mccord MD | | | 2017 | | GASTROENTEROLOGY | [address], [place] | | | | | [address] [place] | [address] [place], [place] | | | | | [address] [place], [place] | [address] | | | | | [address] | | | | | | [phone] | | | +--------+ + + + [...] | | 2019 | | | [address] [facility] | | | | | | [place] [address] | | | | | | [phone] | | | | | | | | +--------+ + + + + | 05/17/ | Office | Cardiology | Jeniffer Haines | | | 2020 | Visit | | [address] | | | | | | [address] [address] | | | | | | [place] [address] | | | | | | [phone] | | | | | | | | +--------+ + + + + documented as of this encounter Visit Diagnoses Not on filedocumented in this encounter"
--- OUTSIDE RECORDS SUMMARY | ~2020-03-18 | XMS | Encounter Summary ---
Demographics + + + | Address | [address] | | | [place] [address] | + + + | Home Phone [...] Team Providers + +------+ + | Care Watch Dial Maker Name | Role | Phone | + +------+ + | Susan Leos | PCP | | | PA-C | | | + +------+ + Reason for Visit + +--------+ + | Reason | Onset | Comments | | | Date | | + +--------+ + | Surgery Appointment | 03/16/ | | | | 2019 | | + +--------+ + Encounter Details +--------+ + + + + | Date | Type | Department | Care Team | Description | +--------+ + + + + | 03/16/ | Telephone | [facility] | Yvette Michelle, | Surgery Appointment | | 2018 | | [place] [facility] [address] | Pumping Supervisor | | | | | [place] | | | | | | [address] | | | | | | [phone] | | | +--------+ + + + [...] Miscellaneous Notes Telephone Encounter - Yvette Michelle, Pumping Supervisor - 03/16/2019 8:35 AM [facility] for p atient to call back. Dr. Sidhu is wanting to reschedule her surgery FROM 04/07/2019 TO 1 . Asked patient to call me back and let me know if that is ok documented in this encounter Plan of Treatment +--------+ + + + + | Date | Type | Specialty | Care Team | Description | +--------+ + + + + | 04/02/ | Appointment | Pain Medicine | Sam Samuels DO | | | 2019 | | | [address] | | | | | | [place] [address] | | | | | | [phone] | | | | | | | | +--------+ + + + + | 05/17/ | Office | Cardiology | Jeniffer Haines | | 2019 | Visit | | [address] | | | | | | [address] | | | | | | [place] [address] | | | | | | [phone] | | | | | | | | +--------+ + + + + documented as of this encounter Visit Diagnoses Not on filedocumented in this encounter"
--- OUTSIDE RECORDS SUMMARY | ~2020-03-18 | XMS | Encounter Summary ---
Demographics + + + | Address | [address] | | | [place] [address] | + + + | Home Phone [...] Team Providers + +------+ + | Care Cook Barbecue Name | Role | Phone | + [...] + | 09/23/ | Telephone | [facility] | Gregor Mccord MD | Appointment | | 2016 | | GASTROENTEROLOGY | [address], [place] | (Scheduled ERCP) | | | | [address] [place] | [address] [place], [place] | | | | | [address] [place], [place] | [address] | | | | | [address] | | | | | | [phone] | | | +--------+ + + + [...] an ERCP. scheduled for September 26 at [facility] checking in at 11 AM. Reviewed instructions and medications. Case ordered. documented in this encounter Plan of Treatment +--------+ + + + + | Date | Type | Specialty | Care Team | Description | +--------+ + + + + | 04/02/ | Appointment | Pain Medicine | Sam Samuels DO | | | 2019 | | | [address] [facility] | | | | | | [place] [address] | | | | | | [phone] | | | | | | | | +--------+ + + + + | 05/17/ | Office | Cardiology | Jeniffer Haines | | | 2019 | Visit | | [address] | | | | | | [address] | | | | | | [place] [address] | | | | | | [phone] | | | | | | | | +--------+ + + + + documented as of this encounter Visit Diagnoses + + | Diagnosis | + + | Common bile duct stone - Primary Calculus of bile duct without mention of | | cholecystitis or obstruction | + + documented in this encounter"
--- OUTSIDE RECORDS SUMMARY | ~2020-03-18 | XMS | Clinical Summary ---
Demographics + + + | Address | [address] | | | [place] [address] | + + + | Home Phone [...] Providers + +------+ + | Care Applications Support Lead Name | Role | Phone | + +------+ + PCP | Unavailable | + +------+ + Source Comments FIORELLA is fully live on both [facility] Ambulatory and [facility] InPatient.[facility] Allergies Not on File Medications Not [...] +------+ | MODA MEDICARE | MODA | [id number] | Effect | [phone] | [address] | PPO | | | MEDICA | | nestor | 4 | [phone] | | | | RE PPO | | for | | [place], | | | | | | all | | [place] [address] | | | | | | dates [...] | 1936 | [phone] | [place] [address] | | | [place] | | | 3 (Home) | | + +--------+ +--------+ + +"
--- OUTSIDE RECORDS SUMMARY | ~2020-03-18 | XMS | Encounter Summary ---
Demographics + + + | Address | [address] | | | [place] [address] | + + + | Home Phone [...] Author | [facility] | | | and [place] | + + + | Organization | [facility] | | [...] Providers + +------+ + | Care Patient Transport Officer Name | Role | Phone | [...] | | [place] [address] | MD Alaian [address] | | | | | [address] [place], [place] | [place] | | | | | [address] | [place] [address] | | | | | [phone] | [phone] | | | | | | | [...] [address] | | | | | | [place] [address] | | | | | | [phone] | | | | | | | | +--------+ + + + + | 05/17/ | Office | Cardiology | Jeniffer Haines | | 2019 | Visit | | [address] | | | | | | [address] | | | | | | [place] [address] | | | | | | [phone] | | | | | | | | +--------+ + + + + documented as of this encounter Visit Diagnoses Not on filedocumented in this encounter"
--- OUTSIDE RECORDS SUMMARY | ~2020-03-18 | XMS | Encounter Summary ---
Demographics + + + | Address | [address] | | | [place] [address] | + + + | Home Phone [...] Team Providers + +------+ + | Care Real Estate Transaction Coordinator Name | Role | Phone | + [...] [place] | | | | | | [place], | [address] | | | | | | [place] | [place] | | | | | | [address] | [address] | | | | | | Phone: | Phone: | | | | | | [phone] | [phone] | | | | | | Fax: | Fax: | | | | | | [phone] | [phone] | +--------+--------+ + + + + Encounter Details +--------+---------+ + + + | Date | Type | Department | Care Team | Description | +--------+---------+ + + + | 09/17/ | Office | [facility] | Gregor Mccord MD | Choledocholithiasis | | 2017 | Visit | GASTROENTEROLOGY | [address], [place] | (Primary Dx) | | | | [address] [place] | [address] [place], [place] | | | | | [address] [place], [place] | [address] | | | | | [address] | | | | | | [phone] | | | +--------+---------+ + + + [...] 3 Years of Education: 12 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 Main Topics Smoking status: [...] in this enc ounter Plan of Treatment +--------+ + + + + | Date | Type | Specialty | Care Team | Description | +--------+ + + + + | 04/02/ | Appointment | Pain Medicine | Sam Samuels DO | | | 2019 | | | [address] [facility] | | | | | | [place] [address] | | | | | | [phone] | | | | | | | | +--------+ + + + + | 05/17/ | Office | Cardiology | Jeniffer Haines | | | 2020 | Visit | | [address] | | | | | | [address] | | | | | | [place] [address] | | | | | | [phone] | | | | | | | | +--------+ + + + + documented as of this encounter Visit Diagnoses + + | Diagnosis | + + | Choledocholithiasis - Primary Calculus of bile duct without mention of cholecystitis | | or obstruction | + + documented in this encounter
--- OUTSIDE RECORDS SUMMARY | ~2020-03-18 | XMS | Encounter Summary ---
Demographics + + + | Address | [address] | | | [place] [address] | + + + | Home Phone [...] Team Providers + +------+ + | Care Air And Hydronic Balancing Technician Name | Role | Phone | [...] | Gregor Brock MD | [address] | | | | | abnormality | [address] | [address], | | | | | Procedures | [address], [place] | [place] | | | | | MRI MRCP | [address] [place] | [address] | | | | | Liver wo | [place], [place] | Phone: | | | | | [place]rast [place] | [address] | [phone] | | | | | MRI, | Phone: | Fax: | | | | | ABDOMEN | [phone] | [phone] | | | | | (MRI) | Fax: | | | | | | | [phone] | | +--------+--------+ + + + + [...] 2017 | | GASTROENTEROLOGY | [address], [place] | | | | | [address] [place] | [address] [place], [place] | | | | | [address] [place], [place] | [address] | | | | | [address] | | | | | | [phone] | | | +--------+ + + + [...] 10/15/2016 1:15 PM [facility] ERCP stent pull yesterday. [...] November 07. Edna decker is agreeable to [facility] for her MRCP documented in this encounter Plan of Treatment +--------+ + + + + | Date | Type | Specialty | Care Team | Description | +--------+ + + + + | 04/02/ | Appointment | Pain Medicine | Sam Samuels DO | | | 2019 | | | [address] | | | | | | [place] [address] | | | | | | [phone] | | | | | | | | +--------+ + + + + | 05/17/ | Office | Cardiology | Jeniffer Haines | | | 2019 | Visit | | [address] | | | | | | [address] | | | | | | [place] [address] | | | | | | [phone] | | | | | | | [...] JENIFFER | | 02/11/2016. PROTOCOL: Coronal T2 fruit thinner machine operator, axial T2 fruit thinner machine operator, coronal 3D | [facility] [...] spine dated | | 02/11/2016.PROTOCOL: Coronal T2 fruit thinner machine operator, axial T2 fruit thinner machine operator, coronal 3D respiratory | | triggered,coronal T2 [...] A few more small subcentimeter | | G7iyrgfbvbnba cyst are seen within the left kidney [...] ST. | [address] | [place] | [phone] | | [facility] | | [address] | | | - IMAGING | | | | + + + + + documented in this encounter Visit Diagnoses + + | Diagnosis | + + | Bile duct abnormality - Primary Unspecified disorder of biliary tract | + + documented in this encounter"
--- OUTSIDE RECORDS SUMMARY | ~2020-03-18 | XMS | Encounter Summary ---
Demographics + + + | Address | [address] | | | [place] [address] | + + + | Home Phone [...] Team Providers + +------+ + | Care Stonework Supervisor Name | Role | Phone | [...] | y, lumbar | ST | [address] [place], | | | | | region TFE | [place], [place] | [place] [address] | | | | | Lumbar | [address] | Phone: | | | | | BiLat L4 | Phone: | [phone] | | | | | (03-26) | [phone] | Fax: | | | | | Procedures | Fax: | [phone] | | | | | NC INJECT | [phone] | | | | | | ANES/STEROID | | | | | | | FORAMEN | | | | | | | LUMBAR/SACRA | | | | | | | L W IMG | | | | | | | GUIDE ,1 | | | | | | | LEVEL NC | | | | | | | [...] + + | 12/07/ | Hospital | [facility] | Sam Samuels DO | 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 If you are unable to contact your doctor or their associate, you may come to the Emergency Department at [facility]. These instructions have been explained to the [...] | | 0 | | | | [place]-Cxzmlqtcdm-Smbdaq | mouth Daily. | | | | [...] PDT OPERATIVE REPORT NAME: Scarlet Murguia MR#: [id number] : 1935 DATE: 12/08/2019 SURGEON Sam Samuels [...] to the 6 o'clock position of the D2gmkkrbrw respectively. The entire procedure was repeated on [...] olone and 4.5 ml of 0.25% Naropin. [place] were removed intact, skin was cleansed, and [...] | | | | | | [place] [address] | | | | | | [phone] | | | | | | | | +--------+ + + + + | 05/17/ | Office | Cardiology | DarynabbeyJeniffer braun | | | 2020 | Visit | | [address] | | | | | | [address] | | | | | | [place] [address] | | | | | | [phone] | | | | | | | [...]
--- OUTSIDE RECORDS SUMMARY | ~2020-03-18 | XMS | Clinical Summary ---
Demographics + + + | Address | [address] | | | [place] [address] | + + + | Home Phone [...] Team Providers + +------+ + | Care Architectural Practice Manager Name | Role | Phone | [...] 0 | | | Activ | | [place] | mouth Daily. | | | | [...] automatically from request for surgery | | [id number] | + + + + + | [...] classified | | | | | | ([facility]) | +--------+ + + + [...] | | | | | [place] [address] | | | | | | [phone] | | | | | | | | +--------+ + + + + | 05/17/ | Office | Cardiology | Jeniffer Haines | | | 2020 | Visit | | [address] | | | | | | [address] | | | | | | [place] [address] | | | | | | [phone] | | | | | | | [...] /NA | | Mark Foley MD at [facility] | | | | | | /[id number] | | [facility] | | | | | [...] /NA | | Mark Foley MD at [facility] | | | | | | /[id number] | | [facility] | | | | | [...] /NA | | Mark Foley MD at [facility] | | | | | | /[id number] | | [facility] | | | | | | 802 | + +--------+--------+ +--------+--------+--------+ | Stent Bili Advnx 10fr 5cm - | Stent | | [place] | | | 3432 / | | [id number]: Qty: 1 on | | | SCIENTIFIC | | | / | | 09/26/2016 by Gregor Mccord | | | BIGG - BSCI | | | | | MD Delmy at [facility] | | | | | | | | [facility] | | | | | | | + +--------+--------+ +--------+--------+--------+ | Imp Hip Clushle Trident Ii | | Left: | RANDI | | 12/11/ | 702-04 | | 54e - SnaImplanted: Qty: 1 on | | Hip | MEDICAL - | | 2023 | -54E | | 03/29/2019 by Nan | | | ALLEN | | | /NA | | Mark Foley MD at [facility] | | | | | | /[id number] | | [facility] | | | | | | 901A | + +--------+--------+ +--------+--------+--------+ | Screw Hex Lp [id number] - | | Left: | RANDI | | 11/20/ | 7030-6 | | SnaImplanted: Qty: 1 on | | Hip | MEDICAL - | | 2023 | 530 | | 03/29/2019 by Nan, | | | ALLEN | | | /NA | | Mark Foley MD at [facility] | | | | | | /4RS | | [facility] | | | | | [...] | | | + +--------+ +--------+-------+---------+--------+ | [employer] | [facility] | [id number] | 06/15/19 | | | Medica | | | HEALTH | | 17-Pre | | | re | | | MDCR | | sent | | | | + +--------+ +--------+-------+---------+--------+ | [employer] | MODA | [id number] | | | | Medica | | [...] al/Fam | | 1936 | [phone] | [place] | | | [place] | | | 3 (Home) | [address] | + +--------+ +--------+ + + | Scarlet Murguia | Person | Self | [birth year] | [address] | | | al/Fam | | 1936 | [phone] | [place] | | | [place] | | | 3 (Home) | [address] | + +--------+ +--------+ + + Advance Directives + + + + + | Type | Date Recorded | Patient | Explanation | | | | Security Technician | | + + + + + | Power of | | | | | Bag Shop Worker | | | | + + [...]
--- OUTSIDE RECORDS SUMMARY | ~2020-03-18 | XMS | Encounter Summary ---
Demographics + + + | Address | [address] | | | [place] [address] | + + + | Home Phone [...] [facility] | | | and [...] Team Providers + +------+ + | Care Drying Machine Operator Package Yarns Name | Role | Phone | + [...] | | | | | | [place] | | | | | | | [...] [facility] OP | [address], [place] | | | | | [address] | [address] [place], [place] | | | | | [place], [place] | [address] | | | | | [address] | | | | | | [phone] | | | +--------+---------+ + + + [...] the test. This includes: All prescription medicines Vzlx-nxw-vyygzvs medicines that don't need a prescription Any [...] infection or torn bowel. Date Last Reviewed: 12/01/201419992253-8112 The [employer]. [address] [place] [address]. All righ ts reserved. This information is [...] be awakened Date Last Reviewed: 04/01/2016 [employer]. [address] [place] [address]. All righ ts reserved. 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 Avoiding fatty foods such as [place], hamburgers, carrera, ham and pork products, wi [...] | | 2019 | | | [address] [facility] | | | | | | [place] [address] | | | | | | [phone] | | | | | | | | +--------+ + + + + | 05/17/ | Office | Cardiology | Jeniffer Haines | | | 2019 | Visit | | [address] | | | | | | [address] | | | | | | [place] [address] | | | | | | [phone] | | | | | | | [...] 10/14/2016 12:25 | PROVATION | | PMMRN: [id number] #: [id number] of : 1936Admit | | | Type: AmbulatoryAge: 80Room: [facility] 01Gender: FemaleNote Status: | | | FinalizedAttending [...] the anesthesiologist and | | | the switch technician in the endoscopy suite. Mental Status [...] was visible on the | | | cnc machinist film. The esophagus was successfully intubated under [...] Scope In: 12:40:12 PMScope Out: 12:55:03 PM [place] | | | [facility], [facility] [place] [address] | | | [phone] | | | - Continue present medications. [...] |Scope Out: 12:55:03 PM | | | [facility], [address] [facility], [place], [place] | | | [address] | | + + -+ + +---------+ [...]
--- OUTSIDE RECORDS SUMMARY | ~2020-03-18 | XMS | Encounter Summary ---
Demographics + + + | Address | [address] | | | [place] [address] | + + + | Home Phone [...] Team Providers + +------+ + | Care Dental Scheduler Name | Role | Phone | + +------+ + | Susan Leos | PCP | | | PA-C | | | + +------+ + Encounter Details +--------+ + + + + | Date | Type | Department | Care Team | Description | +--------+ + + + + | 10/02/ | Episode | [facility] | Sonali Garcia | | | 2017 | Changes | GASTROENTEROLOGY | M, RN | | | | | [address] | | | | | | [address] [place] | | | | | | [address] | | | | | | [phone] | | | +--------+ + + + [...] | 2019 | | | [address] | | | | | | [place] [address] | | | | | | [phone] | | | | | | | | +--------+ + + + + | 05/17/ | Office | Cardiology | Jeniffer Haines | | | 2020 | Visit | | [address] | | | | | | [address] | | | | | | [place] [address] | | | | | | [phone] | | | | | | | | +--------+ + + + + documented as of this encounter Visit Diagnoses Not on filedocumented in this encounter"
--- OUTSIDE RECORDS SUMMARY | ~2020-03-18 | XMS | Encounter Summary ---
Demographics + + + | Address | [address] | | | [place] [address] | + + + | Home Phone [...] Team Providers + +------+ + | Care Membership Sales Advisor Name | Role | Phone | + [...] | | | [place] | [place] [address] | | | | | [address] | [phone] | | | | | [phone] | | | +--------+ + + + [...] | | | | | [place] [address] | | | | | | [phone] | | | | | | | | +--------+ + + + + | 05/17/ | Office | Cardiology | Jeniffer Haines | | | 2020 | Visit | | [address] | | | | | | [address] | | | | | | [place] [address] | | | | | | [phone] | | | | | | | | +--------+ + + + + documented as of this encounter Visit Diagnoses Not on filedocumented in this encounter"
--- OUTSIDE RECORDS SUMMARY | ~2020-03-18 | XMS | Encounter Summary ---
Demographics + + + | Address | [address] | | | [place] [address] | + + + | Home Phone [...] Team Providers + +------+ + | Care Barrel Tester Name | Role | Phone | [...] Other | | 2020 | | [facility] [place] | [address] [facility] | | | | | DOLOROLOGY [address] | [place] [address] | | | | | [address] | [phone] | | | | | [place], [place] | | | | | | [address] | | | | | | [phone] | | | +--------+ + + + [...] Miscellaneous Notes Telephone Encounter - Deysi Villa, Chef De Froid - 12/23/2019 11:14 AM MONICACa lled and spoke with patient to follow up on the procedure they had with Dr. Samuels. Patient reports doing well, no concerns. Tdocumented in this encounter Plan of Treatment +--------+ + + + + | Date | Type | Specialty | Care Team | Description | +--------+ + + + + | 04/02/ | Appointment | Pain Medicine | Sam Samuels DO | | 2019 | | | [address] | | | | | | [place] [address] | | | | | | [phone] | | | | | | | | +--------+ + + + + | 05/17/ | Office | Cardiology | Jeniffer Haines | | 2019 | Visit | | [address] | | | | | | [address] | | | | | | [place] [address] | | | | | | [phone] | | | | | | | | +--------+ + + + + documented as of this encounter Visit Diagnoses Not on filedocumented in this encounter"
--- OUTSIDE RECORDS SUMMARY | ~2020-03-18 | XMS | Encounter Summary ---
Demographics + + + | Address | [address] | | | [place] [address] | + + + | Home Phone [...] Providers + +------+ + | Care Inspector Wreath Name | Role | Phone | + [...] A | | | | | [address] [place], [place] | [place] [address] | | | | | [address] | [phone] | | | | | [phone] | | | +--------+ + + + [...] were given in the hospital. Wear them dwc73haaxcr d ay for3 to 4weeks. To relieve discomfort at night, get up and move around. Tell all your healthcare providers including your dentist about your artificial join t before any procedure. You mayneed to take antibiotics before dental work and other medic al procedures to reduce the risk of infection. Arrangeto have your lobito removed cdhgeh5eiffc after surgery. The lobito were u sed [...] ur hip joint. Use a raisedtoilet seat azn8vvwmx after surgery. Ask your healthcare provider if [...] put on socks and shoes. And don't brain picker items from the floor. Use a [...] draining from the incision Date Last Reviewed: 10/13/201719995268-6578 The [employer]. [address] [place] [address]. All righ ts reserved. This information is not intended as a substitute for professional medical care. Always follow your healthcare professional's instructions. Outpatient Medications Marked as Taking for the 03/21/19 encounter (Preadmit Visit) with [facility] ROOM 2 Medication Sig Instructions acetaminophen [...] proced ure Multiple Vitamins-Minerals ([facility]) MISC Take by mouth. DO NOT TAKE day of procedure Kelly-3 Fatty Acids (PRO NUTRIENTS OMEGA 3 PO) [...] Pt states she saw Dr Paz in [place] for cardiac clearance in February and was [...] [address] | | | | | | [place] [address] | | | | | | [phone] | | | | | | | | +--------+ + + + + | 05/17/ | Office | Cardiology | Jeniffer Haines | | 2019 | Visit | | [address] | | | | | | [address] | | | | | | [place] [address] | | | | | | [phone] | | | | | | | [...] Antibody | Testing performed at | | [facility] | | | Screen | [facility] | | LABORATORY | | | | [place] [address] | | | | + + + + + + + + | Specimen | + + | Blood | + + + + + + + | Performing | Address | City/State/Zipcode | Phone Number | | Organization | | | | + + + + + | [facility] | [address] | [place] [address] | [phone] | + + + + + MRSA [...] [facility] | | LABORATORY | | | | [address];[place] | | | | | | [address] | | | | + + + + + + + + | Specimen | + + | Tissue - Both | | anterior nares (body | | structure) | + + + + + + + | Performing | Address | City/State/Zipcode | Phone Number | | Organization | | | | + + + + + | [facility] | [address] | [place] [address] | [phone] | + + + + + Hemoglobin A1C (03/21/2019 3:33 PM PDT) + + + + + + | Component | Value | Ref Range | Performed | Pathologist | | | | | At | Signature | + + + + + + | Hemoglobin | 5.8Comment: HbA1c method | 4.0 - 6.0 % | [facility] | | | A1c [...] | 120Comment: Estimated | <154 mg/dL | [facility] | | | Average | Average Glucose | | LABORATORY | | | Glucose | calculated from | | | | | | hemoglobin A1c by use of | | | | | | the ADArecommended | | | | | | formula.Testing | | | | | | performed at [facility], [address] | | | | | | [facility], | | | | | | [place] [address] | | | | + + + + + + + + | Specimen | + + | Blood | + + + + + + + | Performing | Address | City/State/Zipcode | Phone Number | | Organization | | | | + + + + + | [facility] | [address] | [place] [address] | [phone] | + + + + + CBC [...] | | | | | performed at [facility] | | | | | | [place] [place] | | | | | | [address] | | | | + + + + + + + + | Specimen | + + | Blood | + + + + + + + | Performing | Address | City/State/Zipcode | Phone Number | | Organization | | | | + + + + + | [facility] | [address] | [place] [address] | [phone] | + + + + + Basic [...] | | | | | performed at [facility];[address] | | | | | | [facility];[place], [place] | | | | | | [address] | | | | + + + + + + + + | Specimen | + + | Blood | + + + + + + + | Performing | Address | City/State/Zipcode | Phone Number | | Organization | | | | + + + + + | [facility] | [address] [facility] | [place] [address] | [phone] | + + + + + ECG [...]
--- OUTSIDE RECORDS SUMMARY | ~2020-03-18 | XMS | Encounter Summary ---
Demographics + + + | Address | [address] | | | [place] [address] | + + + | Home Phone [...] Team Providers + +------+ + | Care Wool Hanker Name | Role | Phone | + [...] [place] | | | | | | [address] | | | | | | [phone] | | | +--------+ + + + [...] [address] | | | | | | [place] [address] | | | | | | [phone] | | | | | | | | +--------+ + + + + | 05/17/ | Office | Cardiology | Jeniffer Haines | | | 2019 | Visit | | [address] | | | | | | [address] | | | | | | [place] [address] | | | | | | [phone] | | | | | | | | +--------+ + + + + documented as of this encounter Visit Diagnoses Not on filedocumented in this encounter"
--- OUTSIDE RECORDS SUMMARY | ~2020-03-18 | XMS | Encounter Summary ---
Demographics + + + | Address | [address] | | | [place] [address] | + + + | Home Phone [...] | Author | [facility] | | | and [place] | + + + | Organization | [facility] | | | [...] Providers + +------+ + | Care Academic Program Specialist Name | Role | Phone | [...] | | Spondylolist | [place] | [address] | | | | | [place] | [address] | Phone: | | | | | L4-L5 level | Phone: | [phone] | | | | | Bilateral | [phone] | Fax: | | | | | lumbar | Fax: | [phone] | | | | | radiculopath | [phone] | | | | | | y [...] | | displacement | [address] | [place], [place] | | | | | , lumbar | Ave | [address] Phone: | | | | | [place] | [place] | [phone] | | | | | | [place] | Fax: | | | | | | [address] | [phone] | | | | | | Phone: | | | | | | | [phone] | | | | | | | Fax: | | | | | | | [phone] | | +--------+--------+ + + + + Encounter Details +--------+---------+ + + + | Date | Type | Department | Care Team | Description | +--------+---------+ + + + | 02/03/ | Office | [facility] | Ray, | DDD (degenerative | | 2016 | Visit | PHYSIATRY [address] | [address] | disc disease), | | | | [address] | [address] | lumbar (Primary Dx); | | | | [place], [place] | [place] [address] | Spondylolisthesis | | | | [address] | [phone] | at L4-L5 level; | | | | [phone] | | Bilateral lumbar | | | [...] when you are done getting this in [facility], please call our offi ce and ask [...] of blood sugars if you are diabetic. terminal block assembler risk can lead to osteoporosis which is [...] 1 tablet by mouth Daily. Multiple Vitamins-Minerals ([facility]) MISC Take by mouth. [place]-3 Fatty Acids (PRO NUTRIENTS OMEGA 3 PO) [...] has no apparent deficits with short or long filler cigar roller machine memory. She has appropriate fund of knowledge [...] had a NCS performed b y a hair or beauty salon manager in [place]. I would like to get those records. [...] | | | 2019 | | | [address] [facility] | | | | | | [place] [address] | | | | | | [phone] | | | | | | | | +--------+ + + + + | 05/17/ | Office | Cardiology | Jeniffer Haines | | | 2020 | Visit | | [address] | | | | | | [address] | | | | | | [place] [address] | | | | | | [phone] | | | | | | | [...]
--- OUTSIDE RECORDS SUMMARY | ~2020-03-18 | XMS | Encounter Summary ---
Demographics + + + | Address | [address] | | | [place] [address] | + + + | Home Phone [...] + + + | Author | [facility] | | | and [place] | + + + | Organization | [facility] | | [...] Providers + +------+ + | Care Information Developer Name | Role | Phone | [...] + + | 10/22/ | Telephone | [facility] | Gregor Mccord MD | Imaging Only (MRI | | 2017 | | GASTROENTEROLOGY | [address], [place] | MRCP Liver without | | | | [address] [place] | [address] [place], [place] | contrast scheduled) | | | | [address] [place], [place] | [address] | | | | | [address] | | | | | | [phone] | | | +--------+ + + + [...] | | 2019 | | | [address] [facility] | | | | | | [place] [address] | | | | | | [phone] | | | | | | | | +--------+ + + + + | 05/17/ | Office | Cardiology | Jeniffer Haines | | | 2020 | Visit | | [address] | | | | | | [place] [address] | | | | | | [place] [address] | | | | | | [phone] | | | | | | | | +--------+ + + + + documented as of this encounter Visit Diagnoses Not on filedocumented in this encounter"
--- OUTSIDE RECORDS SUMMARY | ~2020-03-18 | XMS | Encounter Summary ---
Demographics + + + | Address | [address] | | | [place] [address] | + + + | Home Phone [...] Team Providers + +------+ + | Care Slide Fastener Chain Assembler Name | Role | Phone | [...] | Spinal | Mark Foley MD | [place] | | | Required | | stenosis, | [address] | Pain | | | | | lumbar | [address] | Management | | | | | region, with | [place], | [address] | | | | | neurogenic | [place] [address] | [facility], | | | | | claudication | Phone: | [place] | | | | | | [phone] | [address] | | | | | | Fax: | Phone: | | | | | | [phone] | [phone] | | | | | | | Fax: | | | | | | | [phone] | + + + + + + + Encounter Details +--------+---------+ + + + | Date | Type | Department | Care Team | Description | +--------+---------+ + + + | 01/30/ | Office | [facility] | Sam Samuels DO | Spondylolisthesis at | | 2020 | Visit | [facility] | [address] | L4-L5 level | | | | [address] | [place] [address] | (Primary Dx); Lumbar | | | | [address] [place], | [phone] | radiculopathy; | | | | [place] [address] | | Spinal stenosis of | | | | [phone] | | lumbar region with | | | | | | neurogenic | | | | | | claudication; DDD | | | | | | (degenerative disc | | | | | | disease), lumbar; | | | | | | Sacroiliitis, not | | | | | | elsewhere classified | | | | | | ([facility]) | +--------+---------+ + + + Social History [...] Sam Samuels, - 01/31/2020 11:30 AM PDT [facility]: Interventional Pain Management 01/31/2020November Jessa [...] disease), lumbar 02/04/2016 Diabetes type 2, controlled ([facility]) DVT (deep venous thrombosis) ([facility]) 03/2019 post hip replacement Full dentures upper & lower GERD (gastroesophageal reflux disease) Heart murmur HTN (hypertension) Hyperlipidemia Hypothyroidism Macular degeneration Other intervertebral disc displacement, lumbar region Peripheral neuropathy Pneumonia 2005 Pulmonary emboli ([facility]) 03/2019 after hip replacement Skin cancer Spondylolisthesis at L4-L5 level 02/04/2016 Stress incontinence in female Type 2 diabetes mellitus ([facility]) Past Surgical History: Procedure Laterality Date CHOLECYSTECTOMY COLONOSCOPY 2003; 2009; 2011 polyp's removed CYSTOCELE REPAIR 1972 EPIDURAL STEROID INJECTION Bilateral 12/08/2019 TFE Bilateral L4 EPIDURAL SYERIOD INJECTION Bilateral 12/22/2019 BILAT TFE L3 ERCP N/A 09/26/2016 Procedure: ERCP; Surgeon: Gregor Mccord MD; Location: [facility] MEDICAL PROCEDURE UNIT ERCP N/A 10/14/2016 Procedure: ERCP w/ stent pull; Surgeon: Gregor Mccord MD; Location: [facility] MEDICAL PROCEDU RE UNIT HARDWARE REMOVAL Left 03/29/2019 Procedure: REMOVE HARDWARE LOWER EXTREMITY-HIP; Surgeon: Mark [place] MD; [place] [facility] [place] PARTIAL HYSTERECTOMY 1971 RECTOCELE REPAIR 1991 TAILBONE 1973 broken, partial removal TONSILLECTOMY 1938 TOTAL HIP ARTHROPLASTY Left 03/29/2019 Procedure: Posterior Total Hip Arthroplasty; Surgeon: Mark [place] MD; Location: [facility] Allergies Allergen Reactions Erythromycin Hives [...] Twice daily as needed. 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 The possibility of "s ound alike" clamp carrier operator errors, and additions, or deletions may occur. [...] | | | | | | [place] [address] | | | | | | [phone] | | | | | | | | +--------+ + + + + | 05/17/ | Office | Cardiology | Jeniffer Haines | | | 2019 | Visit | | [address] | | | | | | [address] | | | | | | [place] [address] | | | | | | [phone] | | | | | | | [...]
--- OUTSIDE RECORDS SUMMARY | ~2020-03-18 | XMS | Encounter Summary ---
Demographics + + + | Address | [address] | | | [place] [address] | + + + | Home Phone [...] Providers + +------+ + | Care Mill Manager Name | Role | Phone | [...] [place] | | | | | | [address] | | | | | | [phone] | | | +--------+ + + + [...] | | | | | [place] [address] | | | | | | [phone] | | | | | | | | +--------+ + + + + | 05/17/ | Office | Cardiology | Jeniffer Haines | | | 2020 | Visit | | [address] | | | | | | [address] [address] | | | | | | [place] [address] | | | | | | [phone] | | | | | | | | +--------+ + + + + documented as of this encounter Visit Diagnoses Not on filedocumented in this encounter"
--- OUTSIDE RECORDS SUMMARY | ~2020-03-18 | XMS | Encounter Summary ---
Demographics + + + | Address | [address] | | | [place] [address] | + + + | Home Phone [...] Team Providers + +------+ + | Care Furnace Door Tender Name | Role | Phone | [...] [place] | | | | | | [address] | | | | | | [phone] | | | +--------+ + + + [...] [place]EL[place] | | | | | | [place] [address] | | | | | | [phone] | | | | | | | | +--------+ + + + + | 05/17/ | Office | Cardiology | Jeniffer Haines | | | 2019 | Visit | | [address] | | | | | | [place] | | | | | | [place] [address] | | | | | | [phone] | | | | | | | | +--------+ + + + + documented as of this encounter Visit Diagnoses Not on filedocumented in this encounter"
--- OUTSIDE RECORDS SUMMARY | ~2020-03-18 | XMS | Encounter Summary ---
Demographics + + + | Address | [address] | | | [place] [address] | + + + | Home Phone [...] Team Providers + +------+ + | Care Skein Inspector Name | Role | Phone | [...] + + | 03/29/ | Surgery | [facility] | Mark Montana | Posterior Total Hip | | 2019 | | [facility] | MD [address]ain[address] | Arthroplasty | | | | OPERATING RO[address] | [facility] [address] [address] | | | | | [address] | [place] [address] | | | | | [place], [place] | [phone] | | | | | [address] | | | | | | [phone] | | | +--------+---------+ + + + [...] disease), lumbar 02/04/2016 Diabetes type 2, controlled ([facility]) Full dentures upper & lower GERD (gastroesophageal reflux disease) HTN (hypertension) Hyperlipidemia Hypothyroidism Macular degeneration Other intervertebral disc displacement, lumbar region Peripheral neuropathy Pneumonia 2004 Skin cancer Spondylolisthesis at L4-L5 level 02/04/2016 Stress incontinence in female Type 2 diabetes mellitus ([facility]) Past Surgical History: Procedure Laterality Date CHOLECYSTECTOMY COLONOSCOPY 2003; 2009; 2011 polyp's removed CYSTOCELE REPAIR 1971 ERCP N/A 09/26/2016 Procedure: ERCP; Surgeon: Gregor Mccord MD; Location: [facility] ERCP N/A 10/14/2016 Procedure: ERCP w/ stent pull; Surgeon: Gregor Mccord MD; Location: [facility] HARDWARE REMOVAL Left 03/29/2019 Procedure: REMOVE HARDWARE LOWER EXTREMITY-HIP; Surgeon: Mark Montana MD; Location : [facility] MAIN OR PARTIAL HYSTERECTOMY 1972 RECTOCELE REPAIR [...] Code Follow up: Gus Orozco PA-C [address] [facility] [address] In 2 weeks Discharge Medications Changed Medications [...] | | | | 0 | | ([facility]) | | | | | | | MISC | | | | | | + + + +---------+ + + | [place]- Fatty | Take 1 tablet by | [...] might be different fr om the original. [facility] Progress Note Primary Care [...] 4 Handrail Location: both sides Level of [place]: stand by assist Assistive Device: 2 rails [...] throughout activities and motivated each other thro [facility] discussion of goals/plans after [...] LTG Status new at 03/29/2019 1246 LTG [place] Level modified independent at 03/29/2019 1246 LTG Assistive Device none at 03/29/2019 1246 All Transfers Goal Most Recent Value LTG Status new at 03/29/2019 1246 LTG [place] Level stand by assist at 03/29/2019 1246 LTG Assistive Device 2 wheeled walker (FWW) at 03/29/2019 1246 Stair Goal Most Recent Value LTG Status new at 03/29/2019 1246 LTG [place] Level contact guard assist at 03/29/2019 1246 LTG Assistive Device 2 rails at 03/29/2019 1246 LTG Number of Stairs 5 at 03/29/2019 1246 lan of Care - Arias Villar, AIR DRILL OPERATOR - 03/31/2019 8:57 AM PDT Physical Therapy [...] oriented x 4 Transfers Sit-Stand, Level of [place]: stand by assist Stand-Sit, Level of [place]: stand by assist [id number], Assistive Device: 2 wheeled walker (FWW) Safety Issues: stands too far from assistive device Impairments: ROM decreased, strength decreased Gait Level of [place]: stand by assist Assistive Device: 2 wheeled [...] LTG Status new at 03/29/2019 1246 LTG [place] Level modified independent at 03/29/2019 1246 LTG Assistive Device none at 03/29/2019 1246 All Transfers Goal Most Recent Value LTG Status new at 03/29/2019 1246 LTG [place] Level stand by assist at 03/29/2019 1246 LTG Assistive Device 2 wheeled walker (FWW) at 03/29/2019 1246 Stair Goal Most Recent Value LTG Status new at 03/29/2019 1246 LTG [place] Level contact guard assist at 03/29/2019 1246 [...] Recommendations: 2 wheeled walker (FWW), sock aide, didactic program in dietetics director, long handled sponge Barriers to community-based discharge [...] washed hands at sink Grooming, Level of [place]: independent Assistive Device: none Grooming Assess/Train, Position: supported standing Grooming Impairments: impaired balance Bathing Upper body dressing donned shirt UB Dressing, Level of [place]: set up required Assistive Device: none UB Dressing Assess/Train, Position: sitting UB Dressing Impairments: impaired balance Lower body dressing donned pants LB Dressing, Level of [place]: minimal assist (75% patient effort), verbal cues requir ed Assistive Device: didactic program in dietetics director LB Dressing Assess/Train, Position: sitting LB Dressing Impairments: ROM decreased, strength decreased, impaired balance Toileting pt urinated in toilet Toileting, Level of [place]: stand by assist Assistive Device: grab bar Toileting Assess/Train, Position: sitting Toileting Impairments: strength decreased, impaired balance IADLs FUNCTIONAL MOBILITY Bed Mobility Transfers Sit-Stand, Level of [place]: contact guard assist, verbal cues required Stand-Sit, Level of [place]: contact guard assist, verbal cues required [id number]-[id number]-[id number], Assistive Device: 2 wheeled walker (FWW) Toilet, Level of [place]: contact guard assist, verbal cues required Toilet, Assistive Device: grab bars, 2 wheeled walker (FWW) Walk-in shower, Level of [place]: contact guard assist, verbal cues required Walk-in [...] STG Status new at 03/30/2019 06 STG [place] Level set up required at 03/30/2019 06 STG Adaptive Equipment didactic program in dietetics director, shoe horn, long handled, sock-aid at 03/30/2019 [...] plan of care and goals. lan of [facility] Stephanie Fung RN - 03/31/2019 6:30 AM [...] oriented x 4 Transfers Sit-Stand, Level of [place]: minimal assist (75% patient effort) Stand-Sit, Level of [place]: minimal assist (75% patient effort) Pcm-Hsvcy-Zkh, Assistive Device: 2 wheeled walker (FWW) Safety Issues: stands too far from assistive device Impairments: strength decreased Gait Level of [place]: stand by assist, verbal cues required Assistive [...] LTG Status new at 03/29/2019 1246 LTG [place] Level modified independent at 03/29/2019 1246 LTG Assistive Device none at 03/29/2019 1246 All Transfers Goal Most Recent Value LTG Status new at 03/29/2019 1246 LTG [place] Level stand by assist at 03/29/2019 1246 LTG Assistive Device 2 wheeled walker (FWW) at 03/29/2019 1246 Stair Goal Most Recent Value LTG Status new at 03/29/2019 1246 LTG [place] Level contact guard assist at 03/29/2019 1246 LTG Assistive Device 2 rails at 03/29/2019 1246 LTG Number of Stairs 5 at 03/29/2019 1246 lan of Darby Duarte RN - 03/30/2019 7:10 AM PDT Problem: Postoperative Urinary Retention (Hip Arthroplasty) Goal: Effective Urinary Elimination Intervention: Monitor and Manage Urinary Retention Note: [place] placed on medical sonographer for urinary retention. Will continue to assess and remove when ready lan of Viv Ley, OT - 03/30/2019 6:55 AM PDT [facility] Occupational Therapy Initial Evaluation Note Recommended discharge disposition: home with assist, correction facility Post discharge occupational therapy recommendation: family [...] assistance. If this is not possible, a correction facility would be good to help build [...] toilet, raised toilet seat, accessible to walker [place]. Functional Level Prior Transferring: independent Ambulation: independent Toileting: independent Bathing: independent Dressing: independent Eating: independent Equipment Currently Used at Home: 4 wheeled walker (4WW), cane, straight, single point, gra b bars, long handled sponge, raised toilet, didactic program in dietetics director Prior Functional Level Comment: Independent with all [...] cares and washing face. Grooming, Level of [place]: set up required Assistive Device: none Grooming Assess/Train, Position: standing Grooming Impairments: pain(fatigue) Upper Body Dressing Assessment/Training UB Dressing Assess/Train, Comment: Pt able to don bra and shirt while seated EOB. UB Dressing, Level of [place]: set up required Assistive Device: none UB Dressing Assess/Train, Position: sitting UB Dressing Impairments: pain Lower Body Dressing Assessment/Training LB Dressing Assess/Train, Comment: Pt able to don pants and socks while seated EOB. LB Dressing, Level of [place]: minimal assist (75% patient effort) Assistive Device: didactic program in dietetics director, sock-aid LB Dressing Assess/Train, Position: sitting LB Dressing Impairments: pain, strength decreased Toileting Assessment/Training Toileting Assess/Train, Comment: Pt able to sit down for bowel movement. Toileting, Level of [place]: stand by assist Assistive Device: grab bar Toileting Assess/Train, Position: sitting Toileting Impairments: pain Bed Mobility Additional Documentation: scooting/bridging, supine to/from sit, sidelying to/from sit Assistive Device: bed rails, HOB elevated Scoot/Bridge, Level of [place]: stand by assist Supine to Sit, Level of [place]: moderate assist (50% patient effort) Sidelying to Sit, Level of [place]: stand by assist Safety Issues: decreased use of arms for pushing/pulling, impaired trunk control for bed mo bility Impairments: strength decreased, postural control impaired, pain Transfers Additional Documentation: bed to/from chair, sit to/from stand, toilet Bed-Chair, Level of [place]: stand by assist Cxh-Lkbqk-Peu, Assistive Device: 2 wheeled walker (FWW), gait belt Sit-Stand, Level of [place]: stand by assist Stand-Sit, Level of [place]: stand by assist Bmr-[id number]-Cob, Assistive Device: 2 wheeled walker (FWW) Toilet, Level of [place]: stand by assist Toilet, Assistive Device: grab [...] Value STG Status new at 03/30/2019654 STG [place] Level set up required at 03/30/2019654 STG Adaptive Equipment didactic program in dietetics director, shoe horn, long handled, sock-aid at 03/30/2019654 [...] for signs of infection. [facility] lan of Darby Patle RN - 03/29/2019 5:51 PM PDTEnd of [...] toilet, raised toilet seat, accessible to walker, [place]. Functional Level Prior Transferring: independent Ambulation: independent [...] HOB elevated Supine to Sit, Level of [place]: stand by assist, verbal cues required Sit to Supine, Level of [place]: stand by assist, verbal cues required Impairments: ROM decreased Transfers Additional Documentation: sit to/from stand Sit-Stand, Level of [place]: moderate assist (50% patient effort), verbal cues require d Stand-Sit, Level of [place]: stand by assist, verbal cues required Kyx-Expcl-Yko, Assistive Device: 2 wheeled walker (FWW) Maintain Weight Bearing Status: able to maintain weight bearing status Impairments: ROM decreased Gait Level of [place]: stand by assist Assistive Device: 2 wheeled [...] LTG Status new at 03/29/2019 1246 LTG [place] Level modified independent at 03/29/2019 1246 LTG Assistive Device none at 03/29/2019 1246 All Transfers Goal Most Recent Value LTG Status new at 03/29/2019 1246 LTG [place] Level stand by assist at 03/29/2019 1246 LTG Assistive Device 2 wheeled walker (FWW) at 03/29/2019 1246 Stair Goal Most Recent Value LTG Status new at 03/29/2019 1246 LTG [place] Level contact guard assist at 03/29/2019 1246 LTG Assistive Device 2 rails at 03/29/2019 1246 LTG Number of Stairs 5 at 03/29/2019 1246 p Note - Mark Montana MD - 03/29/2019 9:12 AM [facility] Service: Orthopedic Surgery Operative Note Date of Procedure: 03/29/2019 Surgeon: Mark Montana MD PLASMA PROCESSING CENTRIFUGE OPERATOR: Gus Orozco PA-C; Please note that assistance was necessary for the purpose o f patient positioning, prepping, draping, retraction, reduction, implant placement, and woun d closure. 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 The patient completed [...] signed by: Mark Montana MD, 03/29/2019 7:19 [facility] signed by Mark Montana MD at 019 7:19 AM PDTdocumented in this encounter Plan of Treatment +--------+ + + + + | Date | Type | Specialty | Care Team | Description | +--------+ + + + + | 04/02/ | Appointment | Pain Medicine | Sam Samuels DO | | 2019 | | | [address] [facility] | | | | | | [place] [address] | | | | | | [phone] | | | | | | | | +--------+ + + + + | 05/17/ | Office | Cardiology | Jeniffer Haines | | | 2020 | Visit | | [address] | | | | | | [address] | | | | | | [place] [address] | | | | | | [phone] | | | | | | | [...] | | | POC | performed at [facility];[address] | | LABORATORY | | | | [address] [facility];[place], [place] | | | | | | [address] | | | | + + + + + + + + | Specimen | + + | | + + + + + + + | Performing | Address | City/State/Zipcode | Phone Number | | Organization | | | | + + + + + | [facility] | [address] | [place] [address] | [phone] | + + + + + POC Glucose (03/31/2019 7:23 AM PDT) + + + + + + | Component | Value | Ref Range | Performed | Pathologist | | | | | At | Signature | + + + + + + | Glucose, | 122 (H)Comment: Testing | 65 - 99 mg/dL | [facility] | | | POC | performed at [facility];[address] | | LABORATORY | | | | [address];[place], [place] | | | | | | [address] | | | | + + + + + + + + | Specimen | + + | | + + + + + + + | Performing | Address | City/State/Zipcode | Phone Number | | Organization | | | | + + + + + | [facility] | [address] | [place] [address] | [phone] | + + + + + POC Glucose (03/30/2019 8:57 PM PDT) + + + + + + | Component | Value | Ref Range | Performed | Pathologist | | | | | At | Signature | + + + + + + | Glucose, | 98Comment: Testing | 65 - 99 mg/dL | [facility] | | | POC | performed at [facility];8 | | LABORATORY | | | | [address];[place], [place] | | | | | | [address] | | | | + + + + + + + + | Specimen | + + | | + + + + + + + | Performing | Address | City/State/Zipcode | Phone Number | | Organization | | | | + + + + + | [facility] | [address] | [place] [address] | [phone] | + + + + + Hemoglobin [...] LESLIE | | | | performed at [facility];[address] | | LABORATORY | | | | [address];[place] | | | | | | [address] | | | | + + + + + + + + | Specimen | + + | Blood | + + + + + + + | Performing | Address | City/State/Zipcode | Phone Number | | Organization | | | | + + + + + | [facility] | [address] | [place] [address] | [phone] | + + + + + POC [...] | | | POC | performed at [facility];[address] | | LABORATORY | | | | [address];[place] | | | | | | [address] | | | | + + + + + + + + | Specimen | + + | | + + + + + + + | Performing | Address | City/State/Zipcode | Phone Number | | Organization | | | | + + + + + | [facility] | [address] | [place] [address] | [phone] | + + + + + POC [...] | | | POC | performed at [facility];[address] | | LABORATORY | | | | [address];[place] | | | | | | [address] | | | | + + + + + + + + | Specimen | + + | | + + + + + + + | Performing | Address | City/State/Zipcode | Phone Number | | Organization | | | | + + + + + | [facility] | [address] | [place] [address] | [phone] | + + + + + XR [...] | | | POC | performed at [facility];[address] | | LABORATORY | | | | [address];[place] | | | | | | [address] | | | | + + + + + + + + | Specimen | + + | | + + + + + + + | Performing | Address | City/State/Zipcode | Phone Number | | Organization | | | | + + + + + | [facility] | [address] | [place] [address] | [phone] | + + + + + Type [...] + + + | BB BAND | [id number] | | [facility] | | | | | | LABORATORY | | + + + + + + | BB BAND | Testing performed at | | [facility] | | | | [facility];[address] | LABORATORY | | | | [address];[place] [address] | | | | + + + + + + + + | Specimen | + + | Blood | + + + + + + + | Performing | Address | City/State/Zipcode | Phone Number | | Organization | | | | + + + + + | [facility] | [address] | [place] [address] | [phone] | + + + + + POC Glucose (03/29/2019 6:42 AM PDT) + + + + + + | Component | Value | Ref Range | Performed | Pathologist | | | | | At | Signature | + + + + + + | Glucose, | 96Comment: Testing | 65 - 99 mg/dL | [facility] | | | POC | performed at [facility];[address] | | LABORATORY | | | | [address];[place], [place] | | | | | | [address] | | | | + + + + + + + + | Specimen | + + | | + + + + + + + | Performing | Address | City/State/Zipcode | Phone Number | | Organization | | | | + + + + + | [facility] | [address] | [place] [address] | [phone] | + + + + + documented [...]
--- OUTSIDE RECORDS SUMMARY | ~2020-03-18 | XMS | Encounter Summary ---
Demographics + + + | Address | [address] | | | [place] [address] | + + + | Home Phone [...] Team Providers + +------+ + | Care Account Executive Healthcare Name | Role | Phone | + +------+ + | Susan Leos | PCP | | | PA-C | | | + +------+ + Encounter Details +--------+ + + + + | Date | Type | Department | Care Team | Description | +--------+ + + + + | 12/07/ | Hospital | [facility] | Motaghi, Sam, DO | | | 2020 | Encounter | [facility] | [address] | | | | | [address] | [place] [address] | | | | | [address], | [phone] | | | | | [place] [address] | | | | | | [phone] | | | +--------+ + + + [...] | | 0 | | | | AI-Ohkhpxakkj-Waltrg | mouth Daily. | | | | [...] | | 2019 | | | [address] [facility] | | | | | | [place] [address] | | | | | | [phone] | | | | | | | | +--------+ + + + + | 05/17/ | Office | Cardiology | Jeniffer Haines | | | 2019 | Visit | | [address] | | | | | | [address] | | | | | | [place] [address] | | | | | | [phone] | | | | | | | [...]
--- OUTSIDE RECORDS SUMMARY | ~2020-03-18 | XMS | Encounter Summary ---
Demographics + + + | Address | [address] | | | [place] [address] | + + + | Home Phone | | + + + | Preferred Language | Unknown | + + + | Marital Status | | + + + | Synagogue Affiliation | Unknown | + + + | Race | White | + + + | Ethnic Group | Not or | + + + Author + + + | Author | [facility] | + + + | Organization | [facility] | + + + | [...] Team Providers + +------+ + | Care Wire Weaver Name | Role | Phone | + +------+ + PCP | Unavailable | + +------+ + Encounter Details +--------+ + + + + | Date | Type | Department | Care Team | Description | +--------+ + + + + | 03/20/ | Transcribed | Allergy Clinic at | Dictation, Other | Transcribed | | 1996 | | [facility] [address] | | | | | | [facility] | | | | | | [address] | | | | | | [facility], [address] [place] [address] | | | | | | [place], [place] | | | | | | [address] | | | | | | [phone] | | | +--------+ + + + [...] as of this encounter Progress Notes Interface, Clinical Statistics Manager In - 07/30/2006 1:06 AM PST [facility] and [address] [address] or March 20, 1997 AKIRA LEOS MD [facility] [address] [place] [address] RE:Scarlet Murguia MR#:[id number] Leos: We saw Mrs. Scarlet Murguia for a rheumatology consultation at [facility] on March 20, 1997. The patient [...] se, as manifested by pain at rest, dramatic arts historian stiffness for greater than an hour or [...] Thank you for your referral to the [facility]. Sincerely, Damaso Franks M.D. Resident, Internal Medicine TERRY/artemio cc: Samia Montano M.D. Tunnel Drier Operator, Medicine Rheumatology and Arthritis documented in this encounter Plan of Treatment Not on filedocumented as of this encounter Visit Diagnoses Not on filedocumented in this encounter
--- OUTSIDE RECORDS SUMMARY | ~2020-03-18 | XMS | Encounter Summary ---
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 | | 03/31/ | | [place], [place] | [place] [address] | left hip | | 2019 | | [address] | [phone] | | | | | [phone] | | | +--------+ + + + [...] 2, controlled ([facility]) Full dentures upper & lower GERD (gastroesophageal reflux disease) HTN (hypertension) Hyperlipidemia Hypothyroidism Macular degeneration Other intervertebral disc displacement, lumbar region Peripheral neuropathy Pneumonia 2005 Skin cancer Spondylolisthesis at L4-L5 level 02/04/2016 Stress incontinence in female Type 2 diabetes mellitus ([facility]) Past Surgical History: Procedure Laterality Date CHOLECYSTECTOMY COLONOSCOPY 2003; 2009; 2011 polyp's removed CYSTOCELE REPAIR 1971 ERCP N/A 09/26/2016 Procedure: ERCP; Surgeon: Gregor Mccord MD; Location: [facility] MEDICAL PROCEDURE UNIT ERCP N/A 10/14/2016 Procedure: ERCP w/ stent pull; Surgeon: Gregor Mccord MD; Location: [facility] MEDICAL PROCEDU RE UNIT HARDWARE REMOVAL Left 03/29/2019 Procedure: REMOVE HARDWARE LOWER EXTREMITY-HIP; Surgeon: Mark Montana MD; [facility] : [facility] PARTIAL HYSTERECTOMY 1971 RECTOCELE REPAIR 1991 TAILBONE 1973 broken, partial removal TONSILLECTOMY 1938 TOTAL HIP ARTHROPLASTY Left 03/29/2019 Procedure: Posterior Total Hip Arthroplasty; Surgeon: Mark Montana MD; Location: [facility] MAIN OR Allergies Allergen Reactions Erythromycin [...] Orozco PA-C [address] [place] [facility] [address] In 2 weeks Discharge Medications Changed Medications [...] | | | | 0 | | ([facility]OTEL[facility]) | | | | | | | MISC | | | | | | + + + +---------+ + + | [place]-3 Fatty | Take 1 tablet by | [...] might be different fr om the original. [facility] Progress Note [...] 4 Handrail Location: both sides Level of [place]: stand by assist Assistive Device: 2 rails [...] activities and motivated each other thro [facility] discussion of goals/plans after discharge. [...] LTG Status new at 03/29/2019 1246 LTG [place] Level modified independent at 03/29/2019 1246 LTG Assistive Device none at 03/29/2019 1246 All Transfers Goal Most Recent Value LTG Status new at 03/29/2019 1246 LTG [place] Level stand by assist at 03/29/2019 1246 LTG Assistive Device 2 wheeled walker (FWW) at 03/29/2019 1246 Stair Goal Most Recent Value LTG Status new at 03/29/2019 1246 LTG [place] Level contact guard assist at 03/29/2019 1246 LTG Assistive Device 2 rails at 03/29/2019 1246 LTG Number of Stairs 5 at 03/29/2019 1246 lan of Care - Arias Villar, HULL INSPECTOR - 03/31/2019 8:57 AM PDT Physical Therapy [...] oriented x 4 Transfers Sit-Stand, Level of [place]: stand by assist Stand-Sit, Level of [place]: stand by assist [id number]-Xzh, Assistive Device: 2 wheeled walker (FWW) Safety Issues: stands too far from assistive device Impairments: ROM decreased, strength decreased Gait Level of [place]: stand by assist Assistive Device: 2 wheeled [...] LTG Status new at 03/29/2019 1246 LTG [place] Level modified independent at 03/29/2019 1246 LTG Assistive Device none at 03/29/2019 1246 All Transfers Goal Most Recent Value LTG Status new at 03/29/2019 1246 LTG [place] Level stand by assist at 03/29/2019 1246 LTG Assistive Device 2 wheeled walker (FWW) at 03/29/2019 1246 Stair Goal Most Recent Value LTG Status new at 03/29/2019 1246 LTG [place] Level contact guard assist at 03/29/2019 1246 [...] Recommendations: 2 wheeled walker (FWW), sock aide, new grad rn, long handled sponge Barriers to community-based discharge [...] washed hands at sink Grooming, Level of [place]: independent Assistive Device: none Grooming Assess/Train, Position: supported standing Grooming Impairments: impaired balance Bathing Upper body dressing donned shirt UB Dressing, Level of [place]: set up required Assistive Device: none UB Dressing Assess/Train, Position: sitting UB Dressing Impairments: impaired balance Lower body dressing donned pants LB Dressing, Level of [place]: minimal assist (75% patient effort), verbal cues requir ed Assistive Device: new grad rn LB Dressing Assess/Train, Position: sitting LB Dressing Impairments: ROM decreased, strength decreased, impaired balance Toileting pt urinated in toilet Toileting, Level of [place]: stand by assist Assistive Device: grab bar Toileting Assess/Train, Position: sitting Toileting Impairments: strength decreased, impaired balance IADLs FUNCTIONAL MOBILITY Bed Mobility Transfers Sit-Stand, Level of [place]: contact guard assist, verbal cues required Stand-Sit, Level of [place]: contact guard assist, verbal cues required Npa-Owbjp-Obf, Assistive Device: 2 wheeled walker (FWW) Toilet, Level of [place]: contact guard assist, verbal cues required Toilet, Assistive Device: grab bars, 2 wheeled walker (FWW) Walk-in shower, Level of [place]: contact guard assist, verbal cues required Walk-in [...] Value STG Status new at 03/30/2019654 STG [place] Level set up required at 03/30/2019654 STG Adaptive Equipment new grad rn, shoe horn, long handled, sock-aid at 03/30/2019654 [...] oriented x 4 Transfers Sit-Stand, Level of [place]: minimal assist (75% patient effort) Stand-Sit, Level of [place]: minimal assist (75% patient effort) Jqr-Yiepx-Ece, Assistive Device: 2 wheeled walker (FWW) Safety Issues: stands too far from assistive device Impairments: strength decreased Gait Level of [place]: stand by assist, verbal cues required Assistive [...] LTG Status new at 03/29/2019 1246 LTG [place] Level modified independent at 03/29/2019 1246 LTG Assistive Device none at 03/29/2019 1246 All Transfers Goal Most Recent Value LTG Status new at 03/29/2019 1246 LTG [place] Level stand by assist at 03/29/2019 1246 LTG Assistive Device 2 wheeled walker (FWW) at 03/29/2019 1246 Stair Goal Most Recent Value LTG Status new at 03/29/2019 1246 LTG [place] Level contact guard assist at 03/29/2019 1246 LTG Assistive Device 2 rails at 03/29/2019 1246 LTG Number of Stairs 5 at 03/29/2019 1246 lan of Darby Duarte RN - 03/30/2019 7:10 AM PDT Problem: Postoperative Urinary Retention (Hip Arthroplasty) Goal: Effective Urinary Elimination Intervention: Monitor and Manage Urinary Retention Note: [place] placed on shift lab technician for urinary retention. Will continue to assess and remove when ready lan of Vvi Ley, OT - 03/30/2019 6:55 AM PDT SHOTEVAL Occupational Therapy Initial Evaluation Note Recommended discharge disposition: home with assist, penitentiary facility Post discharge occupational therapy recommendation: family [...] assistance. If this is not possible, a penitentiary facility would be good to help build [...] b bars, long handled sponge, raised toilet, new grad rn Prior Functional Level Comment: Independent with all [...] cares and washing face. Grooming, Level of [place]: set up required Assistive Device: none Grooming Assess/Train, Position: standing Grooming Impairments: pain(fatigue) Upper Body Dressing Assessment/Training UB Dressing Assess/Train, Comment: Pt able to don bra and shirt while seated EOB. UB Dressing, Level of [place]: set up required Assistive Device: none UB Dressing Assess/Train, Position: sitting UB Dressing Impairments: pain Lower Body Dressing Assessment/Training LB Dressing Assess/Train, Comment: Pt able to don pants and socks while seated EOB. LB Dressing, Level of [place]: minimal assist (75% patient effort) Assistive Device: new grad rn, sock-aid LB Dressing Assess/Train, Position: sitting LB Dressing Impairments: pain, strength decreased Toileting Assessment/Training Toileting Assess/Train, Comment: Pt able to sit down for bowel movement. Toileting, Level of [place]: stand by assist Assistive Device: grab bar Toileting Assess/Train, Position: sitting Toileting Impairments: pain Bed Mobility Additional Documentation: scooting/bridging, supine to/from sit, sidelying to/from sit Assistive Device: bed rails, HOB elevated Scoot/Bridge, Level of [place]: stand by assist Supine to Sit, Level of [place]: moderate assist (50% patient effort) Sidelying to Sit, Level of [place]: stand by assist Safety Issues: decreased use of arms for pushing/pulling, impaired trunk control for bed mo bility Impairments: strength decreased, postural control impaired, pain Transfers Additional Documentation: bed to/from chair, sit to/from stand, toilet Bed-Chair, Level of [place]: stand by assist Fbf-Ebfqb-Aqy, Assistive Device: 2 wheeled walker (FWW), gait belt Sit-Stand, Level of [place]: stand by assist Stand-Sit, Level of [place]: stand by assist Qts-Milgf-Hyz, Assistive Device: 2 wheeled walker (FWW) Toilet, Level of [place]: stand by assist Toilet, Assistive Device: grab [...] Value STG Status new at 03/30/2019654 STG [place] Level set up required at 03/30/2019654 STG Adaptive Equipment new grad rn, shoe horn, long handled, sock-aid at 03/30/2019654 [...] for signs of infection. Pain assessments per [facility] policy. lan of Darby Patel RN [...] toilet, raised toilet seat, accessible to walker, [facility]. Functional Level Prior Transferring: independent Ambulation: [...] HOB elevated Supine to Sit, Level of [place]: stand by assist, verbal cues required Sit to Supine, Level of [place]: stand by assist, verbal cues required Impairments: ROM decreased Transfers Additional Documentation: sit to/from stand Sit-Stand, Level of [place]: moderate assist (50% patient effort), verbal cues require d Stand-Sit, Level of [place]: stand by assist, verbal cues required Stq-Jafzt-Dfk, Assistive Device: 2 wheeled walker (FWW) Maintain Weight Bearing Status: able to maintain weight bearing status Impairments: ROM decreased Gait Level of [place]: stand by assist Assistive Device: 2 wheeled [...] LTG Status new at 03/29/2019 1246 LTG [place] Level modified independent at 03/29/2019 1246 LTG Assistive Device none at 03/29/2019 1246 All Transfers Goal Most Recent Value LTG Status new at 03/29/2019 1246 LTG [place] Level stand by assist at 03/29/2019 1246 LTG Assistive Device 2 wheeled walker (FWW) at 03/29/2019 1246 Stair Goal Most Recent Value LTG Status new at 03/29/2019 1246 LTG [place] Level contact guard assist at 03/29/2019 1246 LTG Assistive Device 2 rails at 03/29/2019 1246 LTG Number of Stairs 5 at 03/29/2019 1246 p Note - Mark Montana MD - 03/29/2019 9:12 AM [facility] Service: Orthopedic Surgery Operative Note Date of Procedure: 03/29/2019 Surgeon: Mark Montana MD PRESIDENT AND CEO: Gus Orozco PA-C; Please note that assistance was necessary for the purpose o f patient positioning, prepping, draping, retraction, reduction, implant placement, and woun d closure. 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 The patient completed [...] signed by: Mark [place] MD, 03/29/2019 7:19 [facility] by Mark Montana MD at 019 7:19 AM PDTdocumented in this encounter Plan of Treatment +--------+ + + + + | Date | Type | Specialty | Care Team | Description | +--------+ + + + + | 04/02/ | Appointment | Pain Medicine | Sam Samuels DO | | | 2019 | | | [address] [facility] | | | | | | [place] [address] | | | | | | [phone] | | | | | | | | +--------+ + + + + | 05/17/ | Office | Cardiology | Jeniffer Haines | | | 2019 | Visit | | [address] | | | | | | [address] | | | | | | [place] [address] | | | | | | [phone] | | | | | | | [...] | | | POC | performed at [facility];8 | | LABORATORY | | | | [address];[place], [place] | | | | | | [address] | | | | + + + + + + + + | Specimen | + + | | + + + + + + + | Performing | Address | City/State/Zipcode | Phone Number | | Organization | | | | + + + + + | [facility] | [address] | [place] [address] | [phone] | + + + + + POC Glucose (03/31/2019 7:23 AM PDT) + + + + + + | Component | Value | Ref Range | Performed | Pathologist | | | | | At | Signature | + + + + + + | Glucose, | 122 (H)Comment: Testing | 65 - 99 mg/dL | [facility] | | | POC | performed at [facility];[address] | | LABORATORY | | | | [address];[place], [place] | | | | | | [address] | | | | + + + + + + + + | Specimen | + + | | + + + + + + + | Performing | Address | City/State/Zipcode | Phone Number | | Organization | | | | + + + + + | [facility] | [address] | [place] [address] | [phone] | + + + + + POC Glucose (03/30/2019 8:57 PM PDT) + + + + + + | Component | Value | Ref Range | Performed | Pathologist | | | | | At | Signature | + + + + + + | Glucose, | 98Comment: Testing | 65 - 99 mg/dL | [facility] | | | POC | performed at [facility];[address] | | LABORATORY | | | | [address];[place], [place] | | | | | | [address] | | | | + + + + + + + + | Specimen | + + | | + + + + + + + | Performing | Address | City/State/Zipcode | Phone Number | | Organization | | | | + + + + + | [facility] | [address] | [place] [address] | [phone] | + + + + + Hemoglobin [...] LESLIE | | | | performed at [facility];[address] | | LABORATORY | | | | [address];[place], [place] | | | | | | [address] | | | | + + + + + + + + | Specimen | + + | Blood | + + + + + + + | Performing | Address | City/State/Zipcode | Phone Number | | Organization | | | | + + + + + | [facility] | [address] | [place] [address] | [phone] | + + + + + POC [...] | | | POC | performed at [facility];[address] | | LABORATORY | | | | [address];[place], [place] | | | | | | [address] | | | | + + + + + + + + | Specimen | + + | | + + + + + + + | Performing | Address | City/State/Zipcode | Phone Number | | Organization | | | | + + + + + | [facility] | [address] | [place] [address] | [phone] | + + + + + POC Glucose (03/29/2019 8:59 PM PDT) + + + + + + | Component | Value | Ref Range | Performed | Pathologist | | | | | At | Signature | + + + + + + | Glucose, | 172 (H)Comment: Testing | 65 - 99 mg/dL | [facility] | | | POC | performed at [facility];[address] | | LABORATORY | | | | [address];[place], [place] | | | | | | [address] | | | | + + + + + + + + | Specimen | + + | | + + + + + + + | Performing | Address | City/State/Zipcode | Phone Number | | Organization | | | | + + + + + | [facility] | [address] | [place] [address] | [phone] | + + + + + XR [...] | | | POC | performed at [facility];[address] | | LABORATORY | | | | [address];[place], [place] | | | | | | [address] | | | | + + + + + + + + | Specimen | + + | | + + + + + + + | Performing | Address | City/State/Zipcode | Phone Number | | Organization | | | | + + + + + | [facility] | [address] | [place] [address] | [phone] | + + + + + Type [...] + + + | BB BAND | [id number] | | [facility] | | | | | | LABORATORY | | + + + + + + | BB BAND | Testing performed at | | [facility] | | | | [address] | | LABORATORY | | | | [address];[place] [address] | | | | + + + + + + + + | Specimen | + + | Blood | + + + + + + + | Performing | Address | City/State/Zipcode | Phone Number | | Organization | | | | + + + + + | [facility] | [address] | [place] [address] | [phone] | + + + + + POC Glucose (03/29/2019 6:42 AM PDT) + + + + + + | Component | Value | Ref Range | Performed | Pathologist | | | | | At | Signature | + + + + + + | Glucose, | 96Comment: Testing | 65 - 99 mg/dL | [facility] | | | POC | performed at [facility];[address] | | LABORATORY | | | | [address];[place] | | | | | | [address] | | | | + + + + + + + + | Specimen | + + | | + + + + + + + | Performing | Address | City/State/Zipcode | Phone Number | | Organization | | | | + + + + + | [facility] | [address] | [place] [address] | [phone] | + + + + + documented [...]
--- OUTSIDE RECORDS SUMMARY | ~2020-03-18 | XMS | Encounter Summary ---
Demographics + + + | Address | [address] | | | [place] [address] | + + + | Home Phone [...] Team Providers + +------+ + | Care Shotblast Operator Name | Role | Phone | + +------+ + | Susan Leos | PCP | | | PA-C | | | + +------+ + Encounter Details +--------+ + + + + | Date | Type | Department | Care Team | Description | +--------+ + + + + | 02/28/ | [facility] | [facility] | Malcom Mojica, | Peripheral | | 2016 | Encounter | [facility] | [address] | polyneuropathy | | | | [address] | [address], | (Primary Dx) | | | | [place], [place] | [place] [address] | | | | | [address] | [phone] | | | | | [phone] | | | +--------+ + + + [...] | + + + +---------+--------+ + | [place]-3 Fatty | Take 1 tablet by | [...] [address] | | | | | | [place] [address] | | | | | | [phone] | | | | | | | | +--------+ + + + + | 05/17/ | Office | Cardiology | Jeniffer Haines | | | 2019 | Visit | | [address] | | | | | | [address] | | | | | | [place] [address] | | | | | | [phone] | | | | | | | [...] | | | | | | determinedby [facility] | | | | | | Division [...] | | | | | | decisions. [facility] | | | | | | is [...] [place] | | | | | | [address] | | | | + + + [...] [address] | [place] [address] | [phone] | + + + + + Vitamin [...] Vitamin | | | | | | [id number].This test | | | | | | was developed and its | | | | | | performance | | | | | | characteristics | | | | | | determinedby [facility]. The | | | | | | [...] [place] | | | | | | [address] | | | | + + + [...] [address] | [place] [address] | [phone] | + + + + + documented in this encounter Visit Diagnoses + + | Diagnosis | + + | Peripheral polyneuropathy - Primary Unspecified hereditary and idiopathic peripheral | | neuropathy | + + documented in this encounter"
--- OUTSIDE RECORDS SUMMARY | ~2020-03-18 | XMS | Encounter Summary ---
Demographics + + + | Address | [address] | | | [place] [address] | + + + | Home Phone [...] | [facility] | | | and [place] | + + + | Organization | [facility] | | | [...] Team Providers + +------+ + | Care Pad Cutter Name | Role | Phone | [...] | | | | region, with | [place], | [address] | | | | | neurogenic | [place] [address] | [address] [place], | | | | | claudication | Phone: | [place] | | | | | | [phone] | [address] | | | | | | Fax: | Phone: | | | | | | [phone] | [phone] | | | | | | | Fax: | | | | | | | [phone] | + + + + + + [...] + + | // | Telephone | [facility] | [place] | Referral | | 2020 | | [place] [address] | MD Alaina [address] | | | | | [address] [place], [place] | [address] | | | | | [address] | [place] [address] | | | | | [phone] | [phone] | | | | | | | [...] calling to request a referral to a trading specialist. She is okay with coming to [facility]. documented in this encounter Plan of Treatment +--------+ + + + + | Date | Type | Specialty | Care Team | Description | +--------+ + + + + | 04/02/ | Appointment | Pain Medicine | Sam Samuels DO | | 2019 | | | [address] | | | | | | [place] [address] | | | | | | [phone] | | | | | | | | +--------+ + + + + | 05/17/ | Office | Cardiology | Jeniffer Haines | | 2019 | Visit | | [address] | | | | | | [address] | | | | | | [place] [address] | | | | | | [phone] | | | | | | | [...]
--- OUTSIDE RECORDS SUMMARY | ~2020-03-18 | XMS | Encounter Summary ---
Demographics + + + | Address | [address] | | | [place] [address] | + + + | Home Phone [...] Author | [facility] | | | and [place] | + + + | Organization | [facility] | | | [...] Team Providers + +------+ + | Care Baseball Sewer Hand Name | Role | Phone | [...] | | Services | Therapy | | [facility] | [facility] | | | Required | | Post-traumat | PA-C [address] | PHYSICAL | | | | | ic | [address] | THERAPY 1425 | | | | | osteoarthrit | VJ A | [facility] | | | | | is of left | [place], [place] | [place], [place] | | | | | hip | [address] | [address] | | | | | | Phone: | Phone: | | | | | | [phone] | [phone] | | | | | | Fax: | Fax: | | | | | | [phone] | [phone] | +--------+ + + + + + [...] | | | from | [address] | [address] | | | | | [place] at | [address] | BL[address] | | | | | TCO | John, | [place], [place] | | | | | Procedures | [place] | [address] Phone: | | | | | NEW PATIENT | [address] | [phone] | | | | | | Phone: | Fax: | | | | | | [phone] | [phone] | | | | | | Fax: | | | | | | | [phone] | | + +--------+ + + + + Encounter Details +--------+---------+ + + + | Date | Type | Department | Care Team | Description | +--------+---------+ + + + | 03/21/ | Office | [facility] | Gus Orozco, | 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[place] [address] | PA-C [address]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[place], [place] | [place] A [facility], | left hip (Primary | | | | [address] | [place] [address] | Dx) | | | | [phone] | [phone] | | | | | | | [...] Procedure: ERCP; Surgeon: Gregor Mccord MD; Location: [facility] ERCP N/A 10/14/2016 Procedure: ERCP w/ stent pull; Surgeon: Gregor Mccord MD; [facility] PARTIAL HYSTERECTOMY [...] Maternal Uncle Social History Occupational History 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 Tobacco Use Smoking status: Never [...] MISC, Take by mouth., Disp: , Rfl: [place]-3 Fatty Acids (PRO NUTRIENTS OMEGA 3 PO), [...] 12 months?:yes Under the care of a roller leveler operator?: no Diabetes Optimization?:well controlled diet No results found for: LABGLYC History of MRSA/MSSA infection?:no Metal sensitivity or allergy?:no Intolerance to certain specific opiate?:no DVT/PE Risk Stratification Personal history of DVT/PE?:no Cancer treatment in the last 5 years?:no Hormone replacement therapy?:no Tolerate aspirin?:asa Current Anticoagulation?:asa Chemical prophylaxis plan:asa Anticipated Discharge Plan Discharge home to care of daughter (princess), [facility] ([facility] Return for 2 and 6 weeks post [...] Procedure: ERCP; Surgeon: Gregor Mccord MD; Location: [facility] ERCP N/A 10/14/2016 Procedure: ERCP w/ stent pull; Surgeon: Gregor Mccord MD; Location: [facility] PARTIAL HYSTERECTOMY [...] Maternal Uncle Social History Occupational History 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 Tobacco Use Smoking status: Never [...] MISC, Take by mouth., Disp: , Rfl: [place]-3 Fatty Acids (PRO NUTRIENTS OMEGA 3 PO), [...] 12 months?:yes Under the care of a roller leveler operator?: no Diabetes Optimization?:well controlled diet No results found for: LABGLYC History of MRSA/MSSA infection?:no Metal sensitivity or allergy?:no Intolerance to certain specific opiate?:no DVT/PE Risk Stratification Personal history of DVT/PE?:no Cancer treatment in the last 5 years?:no Hormone replacement therapy?:no Tolerate aspirin?:asa Current Anticoagulation?:asa Chemical prophylaxis plan:asa Anticipated Discharge Plan Discharge home to care of daughter (princess), Physical [facility] in [facility] Return for [...] 2019 | | | [address] [facility] | | | | | | [place] [address] | | | | | | [phone] | | | | | | | | +--------+ + + + + | 05/17/ | Office | Cardiology | Jeniffer Haines | | | 2019 | Visit | | [address] | | | | | | [address] [address] | | | | | | [place] [address] | | | | | | [phone] | | | | | | | [...]
--- OUTSIDE RECORDS SUMMARY | ~2020-03-18 | XMS | Encounter Summary ---
Demographics + + + | Address | [address] | | | [place] [address] | + + + | Home Phone [...] Team Providers + +------+ + | Care Finish Repair Worker Name | Role | Phone | [...] 2017 | | GASTROENTEROLOGY | [address], [place] | (MRCP) | | | | [address] [place] | [address] [place], [place] | | | | | [address] [place], [place] | [address] | | | | | [address] | | | | | | [phone] | | | +--------+ + + + [...] patient th at Dr Mccord felt the MRCP that he wanted two weeks post ERCP [...] [address] | | | | | | [place] [address] | | | | | | [phone] | | | | | | | | +--------+ + + + + | 05/17/ | Office | Cardiology | Jeniffer Haines | | 2019 | Visit | | [address] | | | | | | [address] [address] | | | | | | [place] [address] | | | | | | [phone] | | | | | | | | +--------+ + + + + documented as of this encounter Visit Diagnoses Not on filedocumented in this encounter"
--- OUTSIDE RECORDS SUMMARY | ~2020-03-18 | XMS | Encounter Summary ---
Demographics + + + | Address | [address] | | | [place] [address] | + + + | Home Phone [...] | Author | [facility] | | | and [place] | + + + | Organization | [facility] | | [...] Providers + +------+ + | Care Certified Flex Endoscope Reprocessor Name | Role | Phone | + [...] | | Physical | Diagnoses | | [place], | | | | Medicine and | Disturbance | Ray, | MD Malcom | | | | Rehabilitatio | of skin | [place], | [address] | | | | n | sensation | PA-C [address] | | | | | Procedures | [address], | [place] | | | | | CO MOTOR | [address] | [address] Phone: | | | | | &/SENS 1-2 | [place] | [phone] | | | | | NRV CNDJ | [address] | Fax: | | | | | PRECONF | Phone: | [phone] | | | | | ELTRODE LIMB | [phone] | | | | | | CO NEEDLE | Fax: | | | | | | EMG EA | [phone] | | | | | | EXTREMITY | | | | | | | W/PARASPINL | | | | | | | AREA LIMITED | | | | | | | CO EMG, | | | | | | | NEEDLE, TWO | | | | | | | LIMBS CO | | | | | | | MOTOR &/SENS | | | | | | | 3-4 NRV | | | | | | | CNDJ PRECONF | | | | | | | ELTRODE | | | | | | | LIMB CO | | | | | | | MOTOR &/SENS | | | | | | | 5-6 NRV | | | | | | | CNDJ PRECONF | | | | | | | ELTRODE | | | | | | | LIMB CO | | | | | | | NEEDLE EMG | | | | | | | EA EXTREMTY | | | | | | | W/PARASPINL | | | | | | | AREA | | | | | | | COMPLETE CO | | | | | | | [...] [address] | [address] [place], | (Primary Dx); Hyper | | | | [place] | [place] [address] | reflexia | | | | [address] | [phone] | | | | | [phone] | | | +--------+ + + + [...] Peripheral polyneuropathyPost-Procedure Diagnose(s): P olyneuropathy; Hyper reflexia [facility] Musculoskeletal, Sports and Spine, Physiatry [address] [address] Test Date: 02/25/2016 Patient Name: Scarlet Murguia : 1935 Physician: Tomás Mojica MD MR #: [id number] Sex: Female Referring Physician: Aurora Bell PA-C [...] some sort of testing done by a plunket nurse and she was diagnosed with a per [...] [address] | | | | | | [place] [address] | | | | | | [phone] | | | | | | | | +--------+ + + + + | 05/17/ | Office | Cardiology | Jeniffer Haines | | 2019 | Visit | | [address] | | | | | | [address] | | | | | | [place] [address] | | | | | | [phone] | | | | | | | [...] + | Malcom Mojica MD 02/26/2016 14:[address] [facility] | | | Physician Group Musculoskeletal, Sports and Spine, Physiatry [place] | | | [facility] [address] [place] [address] Ph: | | | Test Date: 02/25/2016 | | | Patient Name: Scarlet Murguia : 1935 Physician: Tomás Mojica, | | | MR #: [id number] Sex: Female Referring Physician: Aurora | | [...] | | | testing done by a plunket nurse and she was diagnosed with a | [...] | samples are screened | uIU/mL | [facility] | | | | using [...] [address] | [place] | [phone] | | [facility] | | [address] | | | - LABORATORY | | [...] [place] | | | | | | [address] | | | | + + + [...] [address] | [place] [address] | [phone] | + + + + + Protein [...] [facility] | | Vincent Sanchez MD02-27-16 | [facility] | |02-27-16 | [facility] | | | - LABORATORY | + + + + + + + + | Performing | Address | City/State/Zipcode | Phone Number | | Organization | | | | + + + + + | [address] | [address] | [place], [place] | [phone] | | [facility] | | [address] | | | - LABORATORY | | [...] [place] | | | | | | [address] | | | | + + + [...] [address] | [place] [address] | [phone] | + + + + + Methylmalonic [...] [place] | | | | | | [address] | | | | + + + + + + + + | Specimen | + + | Blood specimen | | (specimen) | + + + + + + + | Performing | Address | City/State/Zipcode | Phone Number | | Organization | | | | + + + + + | [facility] | [address] | [place] [address] | [phone] | + + + + + Vitamin [...] + | [facility] | [address] | [place] | [phone] | | [facility] | | [address] | | | - LABORATORY | | | | + + + + + documented in this encounter Visit Diagnoses + + | Diagnosis | + + | Peripheral polyneuropathy - Primary Unspecified hereditary and idiopathic peripheral | | neuropathy | + + | Hyper reflexia Abnormal reflex | + + documented in this encounter
--- OUTSIDE RECORDS SUMMARY | ~2020-03-18 | XMS | Encounter Summary ---
Demographics + + + | Address | [address] | | | [place] [address] | + + + | Home Phone [...] Team Providers + +------+ + | Care Board Mixer Tender Name | Role | Phone | [...] | | | | [address] | [place] [address] | | | | | [place] | [phone] | | | | | [place], [place] | | | | | | [address] | | | | | | [phone] | | | +--------+ + + + [...] Miscellaneous Notes Telephone Encounter - Indira Miranda, Workers Compensation Claims Examiner - 02/21/2020 12:30 PM PDTLM for niko freedman with the pre op instructions for the patients procedure with Dr Samuels and the arriva l time of 9:50AM Jimmie sanchez in this encounter Plan of Treatment +--------+ + + + + | Date | Type | Specialty | Care Team | Description | +--------+ + + + + | 04/02/ | Appointment | Pain Medicine | Sam Samuels DO | | | 2019 | | | [address] | | | | | | [place] [address] | | | | | | [phone] | | | | | | | | +--------+ + + + + | 05/17/ | Office | Cardiology | Jeniffer Haines | | 2019 | Visit | | [address] | | | | | | [address] | | | | | | [place] [address] | | | | | | [phone] | | | | | | | | +--------+ + + + + documented as of this encounter Visit Diagnoses Not on filedocumented in this encounter"
--- OUTSIDE RECORDS SUMMARY | ~2020-03-18 | XMS | Encounter Summary ---
Demographics + + + | Address | [address] | | | [place] [address] | + + + | Home Phone [...] Author | [facility] | | | and [place] | + + + | Organization | [facility] | | | [...] Providers + +------+ + | Care Photographic Technician Name | Role | Phone | + +------+ + | Susan Leos | PCP | | | PA-C | | | + +------+ + Encounter Details +--------+ + + + + | Date | Type | Department | Care Team | Description | +--------+ + + + + | 12/02/ | Hospital | [facility] | Mark [place] | Aftercare following | | 2019 | Encounter | AMY XRAY [address] | MD [place] [address] | left hip joint | | | | [address] | BLVD [address] | replacement surgery | | | | [place], [place] | [place] [address] | | | | | [address] | [phone] | | | | | [phone] | | | +--------+ + + + [...] | | | | 0 | | ([facility]) | | | | | | | MISC | | | | | | + + + +---------+ + + | Wallace-3 Fatty | Take 1 tablet by | [...] [address]EL[address] | | | | | | [place] [address] | | | | | | [phone] | | | | | | | | +--------+ + + + + | 05/17/ | Office | Cardiology | Jeniffer Haines | | | 2019 | Visit | | [address] | | | | | | [address] | | | | | | [place] [address] | | | | | | [phone] | | | | | | | [...]
--- OUTSIDE RECORDS SUMMARY | ~2020-03-18 | XMS | Encounter Summary ---
Demographics + + + | Address | [address] | | | [place] [address] | + + + | Home Phone [...] Team Providers + +------+ + | Care Masonry Contractor Name | Role | Phone | [...] + + | 09/05/ | Telephone | [facility] | Gregor Mccord MD | Referral | | 2017 | | GASTROENTEROLOGY | [address], [place] | | | | | [address] [place] | [address] [place], [place] | | | | | [address] [place], [place] | [address] | | | | | [address] | | | | | | [phone] | | | +--------+ + + + [...] her know if it is possible at [phone]. If it is not, please route back to the [facility] office along with reasoning and we will call her back. Thank you. documented in this encounter Plan of Treatment +--------+ + + + + | Date | Type | Specialty | Care Team | Description | +--------+ + + + + | 04/02/ | Appointment | Pain Medicine | Sam Samuels DO | | 2019 | | | [address] [facility] | | | | | | [place] [address] | | | | | | [phone] | | | | | | | | +--------+ + + + + | 05/17/ | Office | Cardiology | Jeniffer Haines | | 2019 | Visit | | [address] | | | | | | [place] | | | | | | [place] [address] | | | | | | [phone] | | | | | | | | +--------+ + + + + documented as of this encounter Visit Diagnoses Not on filedocumented in this encounter"
--- OUTSIDE RECORDS SUMMARY | ~2020-03-18 | XMS | Encounter Summary ---
Demographics + + + | Address | [address] | | | [place] [address] | + + + | Home Phone [...] Team Providers + +------+ + | Care Shoulder Pad Molder Name | Role | Phone | [...] + + | 03/03/ | Telephone | [facility] | Malcom Mojica, | Other (discuss lab | | 2016 | | PHYSIATRY [address] | [address] | work ) | | | | [address] | [address] [place], | | | | | [place] | [place] [address] | | | | | [address] | [phone] | | | | | [phone] | | | +--------+ + + + [...] [address] | | | | | | [place] [address] | | | | | | [phone] | | | | | | | | +--------+ + + + + | 05/17/ | Office | Cardiology | Jeniffer Haines | | | 2019 | Visit | | [address] | | | | | | [address] | | | | | | [place] [address] | | | | | | [phone] | | | | | | | | +--------+ + + + + documented as of this encounter Visit Diagnoses Not on filedocumented in this encounter"
--- OUTSIDE RECORDS SUMMARY | ~2020-03-18 | XMS | Encounter Summary ---
Demographics + + + | Address | [address] | | | [place] [address] | + + + | Home Phone [...] Providers + +------+ + | Care Retail Warehouse Associate Name | Role | Phone [...] | | | | | from | [address] | [address] | | | | | Jordan at | Kirk Godinez | [place] | | | | | [facility] | [place], | [place], [place] | | | | | Procedures | [place] | [address] Phone: | | | | | NEW PATIENT | [address] | [phone] | | | | | | Phone: | Fax: | | | | | | [phone] | [phone] | | | | | | Fax: | | | | | | | [phone] | | + +--------+ + + + + Encounter Details +--------+---------+ + + + | Date | Type | Department | Care Team | Description | +--------+---------+ + + + | 03/14/ | Office | [facility] | Mark [place] | 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[place], [address]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[place], [place]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 (Primary | | | | [address] | [place] [address] | Dx) | | | | [phone] | [phone] | | | | | | | [...] Procedure: ERCP; Surgeon: Gregor Mccord MD; Location: [facility] ERCP N/A 10/14/2016 Procedure: ERCP w/ stent pull; Surgeon: Gregor Mccord MD; Location: [facility] PARTIAL HYSTERECTOMY 1972 [...] MISC, Take by mouth., Disp: , Rfl: [place]-3 Fatty Acids (PRO NUTRIENTS OMEGA 3 PO), [...] ST | | | | | | [place] [address] | | | | | | [phone] | | | | | | | | +--------+ + + + + | 05/17/ | Office | Cardiology | Zaki Jeniffer | | | 2020 | Visit | | [address] | | | | | | [address] | | | | | | [place] [address] | | | | | | [phone] | | | | | | | [...]
--- OUTSIDE RECORDS SUMMARY | ~2020-03-18 | XMS | Encounter Summary ---
Demographics + + + | Address | [address] | | | [place] [address] | + + + | Home Phone [...] Team Providers + +------+ + | Care Materials Mgmt Tech Name | Role | Phone | [...] [address] | | | | | [address] [place], [place] | [address] [place] [address] | | | | | [address] | [place] [address] | | | | | [phone] | [phone] | | | | | | | [...] Miscellaneous Notes Telephone Encounter - Yvette Michelle, Corporate Development Intern - 08/25/2019 8:25 AM PDTAdvised patient that referral for MRI was refaxed yesterday and that per Dr. [place], she should f ind someone that does interventional pain management and/or spine care. Once she finds jaleesao ne, let us know and we can fax referral. elephone Encounter - Fabiana Yeung - 08/24/2019 9:03 AM PDTPatient called us stating that she spoke with [facility] about her MRI order that was supposed to be sent to them. She was told that they haven't received anything from yet so it needs to be resent. Patient also stated she would like to know if could refer her to an Orthopedis t that is closer to where she lives than [facility]. The trip for appts is becoming a lot fo r her. Please call patient back at [phone] signed by Fabiana Yeung at 0 9:06 [...] [address] | | | | | | [place] [address] | | | | | | [phone] | | | | | | | | +--------+ + + + + | 05/17/ | Office | Cardiology | Jeniffer Haines | | | 2019 | Visit | | [address] | | | | | | [place] | | | | | | [place] [address] | | | | | | [phone] | | | | | | | | +--------+ + + + + documented as of this encounter Visit Diagnoses Not on filedocumented in this encounter"
--- OUTSIDE RECORDS SUMMARY | ~2020-03-18 | XMS | Encounter Summary ---
Demographics + + + | Address | [address] | | | [place] [address] | + + + | Home Phone [...] Team Providers + +------+ + | Care Manufacturer'S Representative Name | Role | Phone | [...] | y, lumbar | ST | [address] [place], | | | | | region TFE | [place], [place] | [place] [address] | | | | | BiLat L3 ( | [address] | Phone: | | | | | 10-12 ) | Phone: | [phone] | | | | | Procedures | [phone] | Fax: | | | | | OR INJECT | Fax: | [phone] | | | | | ANES/STEROID | [phone] | | | | | | FORAMEN | | | | | | | LUMBAR/SACRA | | | | | | | L W IMG | | | | | | | GUIDE ,1 | | | | | | | LEVEL OR | | | | | | [...] + + | 12/21/ | Hospital | [facility] | Sam Samuesl | Spondylolisthesis at | | 2020 | Encounter | INTERVENTIONAL PAIN | [address] | L4-L5 level | | | | MGMT [address] | [place] [address] | (Primary Dx); Lumbar | | | | DR STOKES, | [phone] | radiculopathy; | | | | [place] [address] | | Spinal stenosis of | | | | [phone] | | lumbar region with | | [...] and his staff can be contacted at [phone]. If you are unable to contact your doctor or their associate, you may come to the Emergency Department at [facility]. These instructions have been explained to [...] | | 0 | | | | US-Jfrcoqrioz-Gxgthj | mouth Daily. | | | | [...] AM PDTOPERATIVE REPORT NAME: Scarlet Murguia MR#: [id number] : 1935 DATE: 12/22/2019 SURGEON Sam Samuels [...] nolone and 4.5 ml of 0.25% Naropin. Clarion were removed intact, skin was cleansed, and [...] | | | | | | [place] [address] | | | | | | [phone] | | | | | | | | +--------+ + + + + | 05/17/ | Office | Cardiology | Jeniffer Haines | | | 2019 | Visit | | [address] | | | | | | [place] | | | | | | [place] [address] | | | | | | [phone] | | | | | | | [...] | | | | ONCE PRN, Starting [facility] 12/22/19 at | | AM PDT | | | | | 0959 | | | | | | + +-------+ +-------+---+---+ +---+---+ | | | +---+---+ + +-------+ +-------+---+ + | triamcinolone acetonide | Given | 12/22/19 | 60 mg | | Other | | (KENALOG-40) 40 mg/mL injection | | 20 10:01 | | | (Comment | | ONCE PRN, Starting [facility] 12/22/19 at | | AM PDT | | | ) | | 1001, Intra-op | | | | | | + +-------+ +-------+---+ + +---+---+ | | | +---+---+ documented in this encounter"
--- OUTSIDE RECORDS SUMMARY | ~2020-03-18 | XMS | Encounter Summary ---
[...] + + + | Author | [facility] | + + + | Organization | [facility] | + + + | Address [...] Providers + +------+ + | Care Field Servicer Name | Role | Phone | [...] [id number] | | | | | | [facility] | | | | | | and Healing, | | | | | | Building [address], [address]th | | | | | | Floor [place], [place] | | | | | | [address] | | | | | | [phone] | | | +--------+ + + + [...] ls | | | | | | Received:[id number]/[id number] | | | | | | 360-16 [...] Materials | | | | | | Returned:[id number] | | | | | | 360-16 [...] [facility] | [address] | [place] [address] | | | DERMATOPATHOLOGY | [address] | | | + + + + + | [facility] | [address] | [place] [address] | | | DERMATOPATHOLOGY | [address] | | | + + + + + documented in this encounter Visit Diagnoses Not on filedocumented in this encounter"
--- OUTSIDE RECORDS SUMMARY | ~2020-03-18 | XMS | Encounter Summary ---
Demographics + + + | Address | [address] | | | [place] [address] | + + + | Home Phone [...] Team Providers + +------+ + | Care Embedded Software Manager Name | Role | Phone [...] + + | 11/16/ | Office | [facility] | Jeniffer Haines | Essential | | 2020 | Visit | CARDIOLOGY JAMIL | [address] | hypertension | | | | [address] | [place] | (Primary Dx); Mixed | | | | [address] | [place] [address] | hyperlipidemia; Mild | | | | [place] | [phone] | aortic stenosis by | | | | [address] | | prior | | | | [phone] | | echocardiogram; | | | | [...] Bruises easily. Denies bleeding . history of tricai jason: skin cancer only : no melanoma [...] Rarely due to poor balance. Lives in [place] since 2018. 2 d aughters. Outpatient Medications [...] mg by mouth Twice daily as needed. LH-Smkyhqfhpf-Bfgwyxssegvehv (FOLBIC PO) Take 1 capsule by mouth [...] ( [facility]) MISC Take by mouth. 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 Aortic valve trileaflet, mildly calcific, mild aortic stenosis, mean pressure gradient across the valve is 9 mmHg, AKSSI 1.88 cm, no AI. Trace MR, mitral [...] ST-T wa ve abnormalities. Rate 65 bpm, IN 172 ms, QRS 84 ms, QTC 428 ms, tracing personally reviewe d by ne LABS Labs: 05/11/2019 CMP: Sodium 133, potassium [...] for continuity of care [facility] documented in t his encounter Plan of Treatment +--------+ + + + + | Date | Type | Specialty | Care Team | Description | +--------+ + + + + | 04/02/ | Appointment | Pain Medicine | Sam Samuels, | | | 2019 | | | [address] [facility] | | | | | | [place] [address] | | | | | | [phone] | | | | | | | | +--------+ + + + + | 05/17/ | Office | Cardiology | Jeniffer Haines | | | 2019 | Visit | | [address] | | | | | | [address] | | | | | | [place] [address] | | | | | | [phone] | | | | | | | [...]
--- OUTSIDE RECORDS SUMMARY | ~2020-03-18 | XMS | Encounter Summary ---
Demographics + + + | Address | [address] | | | [place] [address] | + + + | Home Phone [...] Team Providers + +------+ + | Care Canvas Baster Jumpbasting Name | Role | Phone | + [...] | | | | neurogenic | [place] [address] | [address] | | | | | claudication | Phone: | Phone: | | | | | Procedures | [phone] | [phone] | | | | | MRI Lumbar | Fax: | Fax: | | | | | Spine wo | [phone] | [phone] | | | | | Contrast | [...] | | | [facility] | John, | [place], [place] | | | | | Procedures | [place] | [address] Phone: | | | | | NEW PATIENT | [address] | [phone] | | | | | | Phone: | Fax: | | | | | | [phone] | [phone] | | | | | | Fax: | | | | | | | [phone] | | + +--------+ + + + [...] region, with | | | | BLVD [place], [place] | [address] | neurogenic | | | | [address] | [place] [address] | claudication | | | | [phone] | [phone] | (Primary Dx); Status | | | [...] evaluation, if indicated, near her home in [place]. Return if symptoms worsen or fail to [...] FERRER | | | | | | [place] [address] | | | | | | [phone] | | | | | | | | +--------+ + + + + | 05/17/ | Office | Cardiology | Jeniffer Haines | | | 2019 | Visit | | [address] | | | | | | [place]ESSICA ZABALA F | | | | | | [place] [address] | | | | | | [phone] | | | | | | | [...]
--- OUTSIDE RECORDS SUMMARY | ~2020-03-18 | XMS | Encounter Summary ---
Demographics + + + | Address | [address] | | | [place] [address] | + + + | Home Phone [...] Team Providers + +------+ + | Care Donkey Ride Operator Name | Role | Phone | [...] | Gregor Brock MD | [address] | | | | | abnormality | [address] | [place], | | | | | Procedures | [place], [place] | [place] | | | | | MRI MRCP | [address] [place] | [address] | | | | | Liver wo | [place], [place] | Phone: | | | | | Contrast [place] | [address] | [phone] | | | | | MRI, | Phone: | Fax: | | | | | ABDOMEN | [phone] | [phone] | | | | | (MRI) | Fax: | | | | | | | [phone] | | +--------+--------+ + + + + [...] | Gregor Brock MD | [address] | | | | | abnormality | [address] | [place], | | | | | Procedures | [place], [place] | [place] | | | | | MRI MRCP | [address] [place] | [address] | | | | | Liver wo | [place] | Phone: | | | | | Contrast [place] | [address] | [phone] | | | | | MRI, | Phone: | Fax: | | | | | ABDOMEN | [phone] | [phone] | | | | | (MRI) | Fax: | | | | | | | [phone] | | +--------+--------+ + + + + Encounter Details +--------+ + + + + | Date | Type | Department | Care Team | Description | +--------+ + + + + | 10/30/ | Hospital | [facility] | Gregor Mccord MD | Bile duct | | 2017 | Encounter | MED CTR MRI [address] | [address], [place] | abnormality | | | | [place], | [address] [place], [place] | | | | | [place] [address] | [address] | | | | | [phone] | | | +--------+ + + + [...] | | | | 0 | | (LOCATED WITHIN [facility]) | | | | | | | MISC | | | | | | + + + +---------+ + + | Dafter-3 Fatty | Take 1 tablet by | [...] FERRER | | | | | | [place] [address] | | | | | | [phone] | | | | | | | | +--------+ + + + + | 05/17/ | Office | Cardiology | Jacek Haines | | | 2019 | Visit | | [address] | | | | | | [address] LOERA | | | | | | [place] [address] | | | | | | [phone] | | | | | | | [...] bile duct. COMPARISON: Lumbar spine dated | [facility] | | 02/11/2016. PROTOCOL: Coronal T2 medical records field technician, axial T2 medical records field technician, coronal 3D | [facility] | | respiratory triggered, coronal T2 [...] spine dated | | 02/11/2016.PROTOCOL: Coronal T2 medical records field technician, axial T2 medical records field technician, coronal 3D respiratory | | triggered,coronal [...] A few more small subcentimeter | | [id number] cyst are seen within the left kidney [...] + + + + | [facility] | [address] 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
--- OUTSIDE RECORDS SUMMARY | ~2020-03-18 | XMS | Encounter Summary ---
Demographics + + + | Address | [address] | | | [place] [address] | + + + | Home Phone [...] Team Providers + +------+ + | Care Window Shade Estimator Name | Role | Phone | + +------+ + | Susan Leos | PCP | | | PA-C | | | + +------+ + Encounter Details +--------+ + + + + | Date | Type | Department | Care Team | Description | +--------+ + + + + | 11/21/ | Hospital | [facility] | Sam Samuels, DO | Spondylolisthesis at | | 2020 | Encounter | [facility] | [address] | L4-L5 level; Lumbar | | | | [address] | [place] [address] | radiculopathy; | | | | [place], [place] | [phone] | Spinal stenosis of | | | | [address] | | lumbar region with | | | | [phone] | | neurogenic | | | | [...] | | 0 | | | | [address]-Z[address]Ntg[address] | mouth Daily. | | | | [...] | | | 2019 | | | [address] [facility] | | | | | | [place] [address] | | | | | | [phone] | | | | | | | | +--------+ + + + + | 05/17/ | Office | Cardiology | Jeniffer Haines | | | 2019 | Visit | | [address] | | | | | | [address]ESSICA ZABALA F | | | | | | [place] [address] | | | | | | [phone] | | | | | | | [...]
--- OUTSIDE RECORDS SUMMARY | ~2020-03-18 | XMS | Encounter Summary ---
Demographics + + + | Address | [address] | | | [place] [address] | + + + | Home Phone [...] Team Providers + +------+ + | Care Corporate Meeting Planner Name | Role | Phone | + [...] + + | 11/03/ | Telephone | [facility] | Gregor Mccord MD | Other | | 2016 | | GASTROENTEROLOGY | [address] [place], [place] | | | | | [address] [place] | [address] [place], [place] | | | | | [address] [place], [place] | [address] | | | | | [address] | | | | | | [phone] | | | +--------+ + + + [...] JELANI | | | | | | [place] [address] | | | | | | [phone] | | | | | | | | +--------+ + + + + | 05/17/ | Office | Cardiology | Jeniffer Haines | | 2019 | Visit | | [address] | | | | | | [address]ICA LOERA | | | | | | [place] [address] | | | | | | [phone] | | | | | | | | +--------+ + + + + documented as of this encounter Visit Diagnoses Not on filedocumented in this encounter"
--- OUTSIDE RECORDS SUMMARY | ~2020-03-18 | XMS | Encounter Summary ---
Demographics + + + | Address | [address] | | | [place] [address] | + + + | Home Phone [...] Team Providers + +------+ + | Care Marker Delivery Name | Role | Phone | + [...] pain | | 2019 | Encounter | [facility] [address] | M, MD [address] | | | | [address] | [address] | | | | | [place], [place] | [place] [address] | | | | | [address] | [phone] | | | | | [phone] | | | +--------+ + + + [...] | | | | 0 | | ([facility]) | | | | | | | MISC | | | | | | + + + +---------+ + + | [place]-3 Fatty | Take 1 [...] | | 2019 | | | [address] [facility] | | | | | | [place] [address] | | | | | | [phone] | | | | | | | | +--------+ + + + + | 05/17/ | Office | Cardiology | Jeniffer Haines | | | 2020 | Visit | | [address] | | | | | | [address] | | | | | | [place] [address] | | | | | | [phone] | | | | | | | [...]
--- OUTSIDE RECORDS SUMMARY | ~2020-03-18 | XMS | Encounter Summary ---
Demographics + + + | Address | [address] | | | [place] [address] | + + + | Home Phone [...] Team Providers + +------+ + | Care Cement Despatch Operator Name | Role | Phone | [...] 2017 | | GASTROENTEROLOGY | [address] [place], [place] | stent pull) | | | | [address] [place] | [address] [place] | | | | | [address] [place] | [address] | | | | | [address] | | | | | | [phone] | | | +--------+ + + + [...] | | 2019 | | | [address] [facility] | | | | | | [place] [address] | | | | | | [phone] | | | | | | | | +--------+ + + + + | 05/17/ | Office | Cardiology | Jeniffer Haines | | | 2020 | Visit | | [address] | | | | | | [address]ESSICA LOERA | | | | | | [place] [address] | | | | | | [phone] | | | | | | | [...]
--- OUTSIDE RECORDS SUMMARY | ~2020-03-18 | XMS | Encounter Summary ---
Demographics + + + | Address | [address] | | | [place] [address] | + + + | Home Phone [...] Team Providers + +------+ + | Care Datacap Developer Name | Role | Phone | [...] + + | 04/07/ | Office | [facility] | Malcom Mojica, | Hyper reflexia | | 2016 | Visit | PHYSIATRY [address] | [address] | (Primary Dx) | | | | [address] | [address] [place], | | | | | [place] | [place] [address] | | | | | [address] | [phone] | | | | | [phone] | | | +--------+---------+ + + + [...] Medicine Consult Note Malcom Mojica MD [address] [facility], [address] [place] [address] FAX: CHIEF COMPLAINT: Chief Complaint Patient presents [...] 1 tablet by mouth Daily. Multiple Vitamins-Minerals ([facility]) MISC Take by mouth. [place]-3 Fatty Acids (PRO NUTRIENTS OMEGA 3 PO) [...] ankles Coordination: There is no dysmetria on qgylyf-rw-upts and ojck-dpbe-ekdl. There Romberg is mildly positiv e with [...] think that any further work-up would exchange teller at this time. Her primary symptoms is [...] JELANI | | | | | | [place] [address] | | | | | | [phone] | | | | | | | | +--------+ + + + + | 05/17/ | Office | Cardiology | Jeniffer Haines | | 2019 | Visit | | [address] | | | | | | [address] LOERA | | | | | | [place] [address] | | | | | | [phone] | | | | | | | | +--------+ + + + + documented as of this encounter Visit Diagnoses + + | Diagnosis | + + | Hyper reflexia - Primary Abnormal reflex | + + documented in this encounter
--- OUTSIDE RECORDS SUMMARY | ~2020-03-18 | XMS | Encounter Summary ---
Demographics + + + | Address | [address] | | | [place] [address] | + + + | Home Phone [...] Providers + +------+ + | Care Records Tech Name | Role | Phone | [...] + + | 11/15/ | Telephone | [facility] | Jalyn Castañeda, | Other (Screened for | | 2019 | | CARDIOLOGY [place] | WHITE LEAD FILTERER | appjeronimo) | | | | [address] | | | | | | [place] | | | | | | [address] | | | | | | [phone] | | | +--------+ + + + [...] [address]ERRER | | | | | | [place] [address] | | | | | | [phone] | | | | | | | | +--------+ + + + + | 05/17/ | Office | Cardiology | Jenfifer Haines | | | 2019 | Visit | | [address] | | | | | | [address]ERA | | | | | | [place] [address] | | | | | | [phone] | | | | | | | | +--------+ + + + + documented as of this encounter Visit Diagnoses Not on filedocumented in this encounter"
--- OUTSIDE RECORDS SUMMARY | ~2020-03-18 | XMS | Encounter Summary ---
Demographics + + + | Address | [address] | | | [place] [address] | + + + | Home Phone [...] [facility] | | | and [place] | + + + | Organization | [facility] | | | and [...] Team Providers + +------+ + | Care Heel Seat Fitter Name | Role | Phone | + +------+ + | Susan Leos | PCP | | | PADex | | | + +------+ + Encounter Details +--------+ + + + + | Date | Type | Department | Care Team | Description | +--------+ + + + + | 02/24/ | [facility] | [facility] | Malcom Mojica, | Peripheral | | 2016 | Encounter | MED CTR LABORATORY | [address] | sueropathy | | | | [address] | [address] [place], | | | | | [place] | [place] [address] | | | | | [address] | [phone] | | | | | [phone] | | | +--------+ + + + [...] | + + + +---------+--------+ + | Purchase-3 Fatty | Take 1 tablet by | [...] ST | | | | | | [place] [address] | | | | | | [phone] | | | | | | | | +--------+ + + + + | 05/17/ | Office | Cardiology | Jeniffer Haines | | | 2019 | Visit | | [address] | | | | | | [address] [address]ER[place] | | | | | | [place] [address] | | | | | | [phone] | | | | | | | [...] | samples are screened | uIU/mL | [facility] | | | | using [...] + | [facility] | [address] | [place] | [phone] | | [facility] | | [address] | | | - LABORATORY | | [...] [place] | | | | | | [address] | | | | + + + [...] [address] | [place] [address] | [phone] | + + + + + Protein [...] [facility] | | Vincent Sanchez MD02-27-16 | [facility] | |02-27-16 | [facility] | | | - LABORATORY | + + + + + + + + | Performing | Address | City/State/Zipcode | Phone Number | | Organization | | | | + + + + + | [facility] [address] | [address] | [place] | [phone] | | [facility] | | [address] | | | - LABORATORY | | [...] [place] | | | | | | [address] | | | | + + + [...] [address] | [place] [address] | [phone] | + + + + + Methylmalonic [...] [place] | | | | | | [address] | | | | + + + [...] [address] | [place] [address] | [phone] | + + + + + Vitamin [...] + | [facility]. | [address] | [place] | [phone] | | [facility] | | [address] | | | - LABORATORY | | | | + + + + + documented in this encounter Visit Diagnoses + + | Diagnosis | + + | Peripheral polyneuropathy Unspecified hereditary and idiopathic peripheral neuropathy | + + documented in this encounter"
--- OUTSIDE RECORDS SUMMARY | ~2020-03-18 | XMS | Encounter Summary ---
Demographics + + + | Address | [address] | | | [place] [address] | + + + | Home Phone [...] Providers + +------+ + | Care Sales Operations Specialist Name | Role | Phone | [...] | | | | | (degenerativ | [place], [place] | | | | | | e disc | [address] | | | | | | disease), | Phone: | | | | | | lumbar | [phone] | | | | | | Bilateral | Fax: | | | | | | lumbar | [phone] | | | | | | radiculopath [...] | | | [place], [place] | [place] [address] | | | | | [address] | [phone] | | | | | [phone] | | | +--------+ + + + [...] Lumbar MR I has been completed at [facility]. Images and report have been requested. documented in this encounter Plan of Treatment +--------+ + + + + | Date | Type | Specialty | Care Team | Description | +--------+ + + + + | 04/02/ | Appointment | Pain Medicine | Sam Samuels, DO | | | 2019 | | | [address] [facility] | | | | | | [place] [address] | | | | | | [phone] | | | | | | | | +--------+ + + + + | 05/17/ | Office | Cardiology | Jeniffer Haines | | | 2019 | Visit | | [address] | | | | | | [place]ESSICA [place]ABAL[place] | | | | | | [place] [address] | | | | | | [phone] | | | | | | | [...] +--------+ + + | AMB REFERRAL TO [facility] | Outpatient | Routin | Spondylolisthesis [...]
--- OUTSIDE RECORDS SUMMARY | ~2020-03-18 | XMS | Encounter Summary ---
Demographics + + + | Address | [address] | | | [place] [address] | + + + | Home Phone [...] Providers + +------+ + | Care Cloth Inspector Name | Role | Phone | [...] [place] | | | | | | [address] | | | | | | [phone] | | | +--------+ + + + [...] | | | | | | [place] [address] | | | | | | [phone] | | | | | | | | +--------+ + + + + | 05/17/ | Office | Cardiology | Jeniffer Haines | | | 2019 | Visit | | [address] | | | | | | [address] [address] | | | | | | [place] [address] | | | | | | [phone] | | | | | | | | +--------+ + + + + documented as of this encounter Visit Diagnoses + + | Diagnosis | + + | Other screening mammogram | + + documented in this encounter"
--- OUTSIDE RECORDS SUMMARY | ~2020-03-18 | XMS | Encounter Summary ---
Demographics + + + | Address | [address] | | | [place] [address] | + + + | Home Phone [...] | Author | [facility] | | | and [place] | + + + | Organization | [facility] | | [...] Providers + +------+ + | Care Yard Engineer Name | Role | Phone | [...] + + | 03/29/ | Anesthesia | [facility] | Michela Eli | | | 2019 | [facility] | MD Jena [address] | | | | | OPERATING RO[address] | [place], [place] | | | | | [facility] | [address] | | | | | [place] | | | | | | [address] | | | | | | [phone] | | | +--------+ + + + [...] +----+---+ + + | | 0 | [place] | | | | 8 | 43-degrees [...] 03/30/19 043 by | | roslyn | efby-sao-giskxf catheter system; | Paula Young RN | [...] EVALUATION November Murguia 83 y.o. female 1935 [id number] Procedure(s) Posterior Total Hip Arthroplasty (Left Hip) [...] signed by Michela Eli MD 03/29/2019 11:[address] [facility] Eli MD at 2018 [...] EVALUATION Scarlet Murguia 83 y.o. female 1935 [id number] Procedure(s): Posterior Total Hip Arthroplasty (Left Hip) [...] Scarlet Germain Mruguia 83 y.o. female 1935 [id number] Posterior Total Hip Arthroplasty (Left Hip) REMOVE [...] receiving team. Michela Eli MD 03/29/2019 9:[address] [facility] Michela Eli MD at 2018 [...] JELANI | | | | | | [facility] [place] [address] | | | | | | [phone] | | | | | | | | +--------+ + + + + | 05/17/ | Office | Cardiology | Jeniffer Haines | | | 2019 | Visit | | [address] | | | | | | [address] | | | | | | [place] [address] | | | | | | [phone] | | | | | | | [...]
--- OUTSIDE RECORDS SUMMARY | ~2020-03-18 | XMS | Encounter Summary ---
Demographics + + + | Address | [address] | | | [place] [address] | + + + | Home Phone [...] + +------+ + | Care Community Service Representative Name | Role | Phone | [...] Hyper | MD Malcom | [address] | | | | | reflexia | [address] | [place], | | | | | Abnormal | [address] | [place] | | | | | gait | [address] | [address] | | | | | Procedures | [place], [place] | Phone: | | | | | MRI Cervical | [address] | [phone] | | | | | Spine wo | Phone: | Fax: | | | | | Contrast | [phone] | [phone] | | | | | | Fax: | | | | | | | [phone] | | +--------+--------+ + + + + [...] [address] | [address] [place], | Abnormal gait | | | | [place] | [place] [address] | | | | | [address] | [phone] | | | | | [phone] | | | +--------+ + + + [...] JELANI | | | | | | [place] [address] | | | | | | [phone] | | | | | | | | +--------+ + + + + | 05/17/ | Office | Cardiology | Jeniffer Haines | | | 2020 | Visit | | [address] | | | | | | [address] | | | | | | [place] [address] | | | | | | [phone] | | | | | | | [...]
--- OUTSIDE RECORDS SUMMARY | ~2020-03-18 | XMS | Encounter Summary ---
Demographics + + + | Address | [address] | | | [place] [address] | + + + | Home Phone [...] Providers + +------+ + | Care Sales Training Manager Name | Role | Phone | [...] | | | | | joint | [place], | [place], [place] | | | | | replacement | [place] [address] | [address] | | | | | surgery | Phone: | Phone: | | | | | | [phone] | [phone] | | | | | | Fax: | Fax: | | | | | | [phone] | [phone] | +--------+ + + + + + [...] | | | [facility] | John, | [place], [place] | | | | | Procedures | [place] | [address] Phone: | | | | | NEW PATIENT | [address] | [phone] | | | | | | Phone: | Fax: | | | | | | [phone] | [phone] | | | | | | Fax: | | | | | | | [phone] | | + +--------+ + + + + Encounter Details +--------+---------+ + + + | Date | Type | Department | Care Team | Description | +--------+---------+ + + + | 05/16/ | Office | [facility] | [place] | Aftercare following | | 2019 | Visit | [place] [address] | MD Alaina [address] | left hip joint | | | | BLVD [place], [place] | [address] | replacement surgery | | | | [address] | [place] [address] | (Primary Dx) | | | | [phone] | [phone] | | | | | | | [...] [address] | | | | | | [place] [address] | | | | | | [phone] | | | | | | | | +--------+ + + + + | 05/17/ | Office | Cardiology | Jeniffer Haines | | | 2019 | Visit | | [address] | | | | | | [address] | | | | | | [place] [address] | | | | | | [phone] | | | | | | | [...]
--- OUTSIDE RECORDS SUMMARY | ~2020-03-18 | XMS | Encounter Summary ---
Demographics + + + | Address | [address] | | | [place] [address] | + + + | Home Phone [...] Team Providers + +------+ + | Care Custodial Worker Name | Role | Phone | [...] | | | Radiology | Essential | [facility] | | | | | hypertension | WET FINISH[address] | [address] | | | | | Systolic | [place] | TY BLOOM | | | | | murmur | [address] | [place], [place] | | | | | Syncope and | [place], [place] | [address] | | | | | collapse | [address] | Phone: | | | | | Dyspnea on | Phone: | [phone] | | | | | exertion | [phone] | Fax: | | | | | Procedures | Fax: | [phone] | | | | | ECHO | [phone] | | | | | | Complete [...] + + | 10/12/ | Office | [facility] | Jeniffer Haines | Essential | | 2020 | Visit | CARDIOLOGY [place] | [address] | hypertension | | | | [address] | [address] [place] | (Primary Dx); Mixed | | | | [address] | [place] [address] | hyperlipidemia; | | | | [place], [place] | [phone] | Systolic murmur; | | | | [address] | | Syncope and | | | | [phone] | | collapse; | | | | [...] you an Echo to be done at [facility] in the next 2-3 weeks, and [...] stroke or TIA. She also denies any [facility] room visits or hospitalizations since she [...] mg by mouth Twice daily as needed. GM-Jgshjnrhap-Qdvvdsalqwzdbr (FOLBIC PO) Take by mouth. ferrous sulfate [...] ( [facility]) MISC Take by mouth. [place]-3 Fatty Acids (OMEGA-3 2100 PO) Take by [...] ST-T wa ve abnormalities. Rate 65 bpm, ND 172 ms, QRS 84 ms, QTC 428 ms, tracing personally reviewe d by wy LABS Labs: 05/11/2019 CMP: Sodium 133, potassium [...] for continuity of care purp bari CAGLE [facility] documented in t his encounter Plan of Treatment +--------+ + + + + | Date | Type | Specialty | Care Team | Description | +--------+ + + + + | 04/02/ | Appointment | Pain Medicine | Sam Samuels DO | | | 2019 | | | [address] | | | | | | [place] [address] | | | | | | [phone] | | | | | | | | +--------+ + + + + | 05/17/ | Office | Cardiology | Jeniffer Haines | | | 2019 | Visit | | [address] | | | | | | [address] | | | | | | [place] [address] | | | | | | [phone] | | | | | | | [...]
--- OUTSIDE RECORDS SUMMARY | ~2020-03-18 | XMS | Encounter Summary ---
Demographics + + + | Address | [address] | | | [place] [address] | + + + | Home Phone [...] Team Providers + +------+ + | Care Manga Artist Name | Role | Phone | + [...] Clinic Dermatology | | | | | [facility] | [address] [facility] | | | | | and Healing, | AMANDA Perez | | | | | [facility] | [id number] | | | | | Floor [place], [place] | | | | | | [address] | | | | | | [phone] | | | +--------+ + + + [...] | OLOGY | | | | Case: [id number] | | | | | | | [...] [facility] | [id number] | [place] [address] | | | DERMATOPATHOLOGY | [address] | | | + + + + + | [facility] | [address] | [place] [address] | | | DERMATOPATHOLOGY | [address] | | | + + + + + documented in this encounter Visit Diagnoses + + | Diagnosis | + + | Neoplasm of uncertain behavior of skin | + + documented in this encounter
--- OUTSIDE RECORDS SUMMARY | ~2020-03-18 | XMS | Encounter Summary ---
Demographics + + + | Address | [address] | | | [place] [address] | + + + | Home Phone [...] Providers + +------+ + | Care Sales Appointment Coordinator Name | Role | Phone | [...] | | | | [address] | [place] [address] | | | | | JESSICA ZABALA B | [phone] | | | | | [place], [place] | | | | | | [address] | | | | | | [phone] | | | +--------+ + + + [...] Miscellaneous Notes Telephone Encounter - Desiree Martinez Ball Rolling Machine Operator - 12/07/2019 12:23 PM PDTPatient [...] FERRER | | | | | | [place] [address] | | | | | | [phone] | | | | | | | | +--------+ + + + + | 05/17/ | Office | Cardiology | Jeniffer Haines | | 2019 | Visit | | [address] | | | | | | [address] [address] | | | | | | [place] [address] | | | | | | [phone] | | | | | | | | +--------+ + + + + documented as of this encounter Visit Diagnoses Not on filedocumented in this encounter"
--- OUTSIDE RECORDS SUMMARY | 2020-03-18 17:22 | XMS ---
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 TOTAL 11 NOTE: Visits indicate total known visits. ED/UCC VISIT TRACKING (12 MO.) 03/18/2020 17:21 [facility] [place] TYPE: Emergency COMPLAINT: - FALL 02/28/2020 18:51 [facility] [place] TYPE: Emergency COMPLAINT: - FALL DIAGNOSES: - Allergy status to penicillin - Allergy status to other antibiotic agents status - Contusion of right hip, initial encounter - Strain of muscle, fascia and tendon at neck level, initial en - Allergy status to sulfonamides status - Type 2 diabetes mellitus with diabetic neuropathy, unspecifie - Contusion of unspecified part of head, initial encounter - Personal history of other malignant neoplasm of skin - Fall on same level from slipping, tripping and stumbling with - Allergy status to other drugs, medicaments and biological sub - Other skilled nursing (current) drug therapy - Hypothyroidism, unspecified 02/22/2020 15:57 [facility] [place] TYPE: Emergency COMPLAINT: - NECK PAIN DIAGNOSES: - Allergy status to other antibiotic agents status - Type 2 diabetes mellitus with diabetic neuropathy, unspecifie - Urinary tract infection, site not specified - Allergy status to sulfonamides status - Hypothyroidism, unspecified - Other skilled nursing (current) drug therapy - Essential (primary) hypertension [...] to other antibiotic agents status - Other skilled nursing (current) drug therapy - Hypothyroidism, unspecified 02/11/2020 19:14 [facility] [place] TYPE: Emergency COMPLAINT: - ABDOMINAL PAIN DIAGNOSES: - Allergy status to sulfonamides status - Hypothyroidism, unspecified - Essential (primary) hypertension - Type 2 diabetes mellitus with diabetic neuropathy, unspecifie - Other resource recovery engineer (current) drug therapy - Pure hypercholesterolemia, unspecified [...] - Allergy status to penicillin - Other resource recovery engineer (current) drug therapy - Allergy status to sulfonamides status 05/05/2019 13:21 [facility] [place] TYPE: Emergency COMPLAINT: - FALL DIAGNOSES: - 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 - Hypothyroidism, unspecified - Strain of muscle, fascia and tendon at neck level, initial en - Type 2 diabetes mellitus with diabetic neuropathy, unspecifie - Other resource recovery engineer (current) drug therapy - Pure hypercholesterolemia, unspecified [...] tract infection, site not specified - Other resource recovery engineer (current) drug therapy - Allergy status to [...] drugs, medicaments and biological sub - Other skilled nursing (current) drug therapy - Personal history of other malignant neoplasm of skin - Altered mental status, unspecified - Allergy status to other antibiotic agents status 03/23/2019 20:56 [facility] [place] TYPE: Emergency COMPLAINT: - HIGH BLOOD PRESSURE DIAGNOSES: - Allergy status to penicillin - Allergy status to sulfonamides status - Other skilled nursing (current) drug therapy - Hypothyroidism, unspecified - Allergy status to other antibiotic agents status - Essential (primary) hypertension - nursing home (current) use of aspirin - Personal history of malignant melanoma of skin - Elevated blood-pressure reading, without diagnosis of hyperte - Type 2 diabetes mellitus with diabetic neuropathy, unspecifie INPATIENT VISIT TRACKING (12 MO.) 04/11/2019 09:40 [facility] [place] TYPE: Medical Surgical COMPLAINT: - BILATERAL PE'S DIAGNOSES: - Hypothyroidism, unspecified - Essential (primary) hypertension - Allergy status to other antibiotic agents status - nursing home (current) use of opiate analgesic - Allergy status to other drugs, medicaments and biological sub - Anemia, unspecified - Nonrheumatic aortic (valve) stenosis - Allergy status to penicillin - Other intervertebral disc degeneration, lumbar region - Allergy status to sulfonamides status - Other skilled nursing (current) drug therapy - Hypothyroidism, unspecified - Allergy status to sulfonamides status - Gastro-esophageal reflux disease without esophagitis - 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 - nursing home (current) use of opiate analgesic - Other intervertebral disc degeneration, lumbar region - Allergy status to other antibiotic agents status - Essential (primary) hypertension - Spondylolisthesis, lumbar region - Other pulmonary embolism without acute cor pulmonale - Stress incontinence (female) (male) - Fracture of unspecified part of neck of left femur, subsequen - Allergy status to penicillin - Other skilled nursing (current) drug therapy - Type 2 diabetes mellitus with diabetic polyneuropathy - nursing home (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 - Spondylolisthesis, lumbar [...] drugs, medicaments and biological sub - Other skilled nursing (current) drug therapy - Spondylolisthesis, lumbar region - Hypo-osmolality and hyponatremia - Type 2 diabetes mellitus with diabetic polyneuropathy - Hypo-osmolality and hyponatremia - Gastro-esophageal reflux disease without esophagitis - Nonrheumatic aortic (valve) stenosis - Gastro-esophageal reflux disease without esophagitis - Other intervertebral disc degeneration, lumbar region - Anemia, unspecified - Other skilled nursing (current) drug therapy - Allergy status to [...] - Allergy status to sulfonamides status - nursing home (current) use of opiate analgesic - Allergy status to penicillin - Essential (primary) hypertension - Presence of left artificial hip joint - Stress incontinence (female) (male) - Allergy status to other antibiotic agents status - Hypothyroidism, unspecified - Anemia, unspecified - nursing home (current) use of opiate analgesic [email or web address]
[2020-03-18] MEDS ORDERED: ACETAMINOPHEN-1 EAC1 PO (20:17)
[2020-03-18] MEDS ORDERED: KEFLEX250 MG PO (20:19)
--- NOTE | 2020-03-18 21:18 | EKG ---
[facility] [address] [facility] [place], [place] [address] Signed Normal sinus rhythm Normal ECG When compared with ECG of 17-FEB-2020 13:50, No significant change was found Confirmed by JOSE DURAN MD ([id number]) on 03/18/2020 9:18:26 PM Electronically Signed By: JOSE DURAN MD 03/18/20 2118 PATIENT NAME: LUCHO GRANT Electrocardiogram DATE OF : 31 PHYSICIAN: JOSE DURAN MD REPORT #: [id number] REPORT IS CONFIDENTIAL AND NOT TO BE RELEASED WITHOUT AUTHORIZATION
== END 2020-03-18 20:53 | disposition home or self-care (01) ==
LOC: ED 17:19
DX: S06.0X0A Concussion without loss of consciousness, initial encounter (principal); S16.1XXA Strain of muscle, fascia and tendon at neck level, initial encounter; N39.0 Urinary tract infection, site not specified; E83.42 Hypomagnesemia; W18.09XA Striking against other object with subsequent fall, initial encounter; E11.40 Type 2 diabetes mellitus with diabetic neuropathy, unspecified; E03.9 Hypothyroidism, unspecified; Z85.828 Personal history of other malignant neoplasm of skin; Z88.0 Allergy status to penicillin; Z88.2 Allergy status to sulfonamides; Z88.1 Allergy status to other antibiotic agents; Z88.8 Allergy status to other drugs, medicaments and biological substances; Z79.899 Other long term (current) drug therapy
CPT/HCPCS: 70450; 72125; 73110; 73502; 80053; 81001; 83735; 84484; 85025; 93005; 93010; 96365; 96375; 99284-25; J0696; J3475

== ENCOUNTER 2020-05-24 18:49 | Emergency (ER) | payer MEDICARE, MEDICAID ==
[~2020-05-24] VITALS: Ht 167.6 cm; Wt 72.6 kg
[~2020-05-24 18:49] MED LIST changes: +ACETAMINOPHEN-1 EAC1 PO; +KEFLEX250 MG PO
--- OUTSIDE RECORDS SUMMARY | 2020-05-24 18:52 | XMS ---
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 TOTAL 6 NOTE: Visits indicate total known visits. ED/UCC VISIT TRACKING (12 MO.) 05/24/2020 18:50 [facility] [place] TYPE: Emergency COMPLAINT: - HEAD INJURY 03/18/2020 17:21 [facility] [place] TYPE: Emergency COMPLAINT: - FALL DIAGNOSES: - Allergy status to other drugs, medicaments and biological substances - Allergy status to sulfonamides - 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 - HEADACHE, UNSPECIFIED - Headache, unspecified - Striking against other object with subsequent fall, initial encounter - Hypomagnesemia - Strain of muscle, fascia and tendon at neck level, initial encounter - Concussion without loss of consciousness, initial encounter - Allergy status to other antibiotic agents - Urinary tract infection, site not specified - Hypothyroidism, unspecified - Personal history of other malignant neoplasm of skin - Type 2 diabetes mellitus with diabetic neuropathy, unspecified - Allergy status to penicillin 02/28/2020 18:51 [facility] [place] TYPE: Emergency COMPLAINT: - FALL DIAGNOSES: - Allergy status to penicillin - Allergy status to other antibiotic agents - Contusion of right hip, initial encounter - Strain of muscle, fascia and tendon at neck level, initial encounter - Allergy status to sulfonamides - Type 2 diabetes mellitus with diabetic neuropathy, unspecified - Contusion of unspecified part of head, initial encounter - Personal history of other malignant neoplasm of skin - Fall on same level from slipping, tripping and stumbling with subsequent striking against other object, initial encounter - Allergy status to other drugs, medicaments and biological substances - 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 - Hypothyroidism, unspecified 02/22/2020 15:57 [facility] [place] TYPE: Emergency COMPLAINT: - NECK PAIN DIAGNOSES: - Allergy status to other antibiotic agents - Type 2 diabetes mellitus with diabetic neuropathy, unspecified - Urinary tract infection, site not specified - Allergy status to sulfonamides - Hypothyroidism, unspecified - Other prison (current) drug therapy - Essential (primary) hypertension - Cervicalgia - Allergy status to other drugs, medicaments and biological substances - Allergy status to penicillin 02/17/2020 13:23 [facility] [place] TYPE: Emergency COMPLAINT: - SYNCOPE DIAGNOSES: - Type 2 diabetes mellitus without complications - Dizziness and giddiness - Allergy status to other drugs, medicaments and biological substances - Allergy status to penicillin - Syncope and collapse - Urinary tract infection, site not specified - Allergy status to other antibiotic agents - 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 - Hypothyroidism, unspecified 02/11/2020 19:[address] [facility] [place] TYPE: Emergency COMPLAINT: - ABDOMINAL PAIN DIAGNOSES: - Allergy status to sulfonamides - Hypothyroidism, unspecified - Essential (primary) hypertension - Type 2 diabetes mellitus with diabetic neuropathy, unspecified - Other prison (current) drug therapy - Pure hypercholesterolemia, unspecified - Allergy status to other antibiotic agents - Allergy status to penicillin - Epigastric pain INPATIENT VISIT TRACKING (12 MO.) No inpatient visits to display in this time frame [id number]
== END 2020-05-24 20:54 | disposition home or self-care (01) ==
LOC: ED 18:49
DX: G44.309 Post-traumatic headache, unspecified, not intractable (principal); E78.00 Pure hypercholesterolemia, unspecified; E11.40 Type 2 diabetes mellitus with diabetic neuropathy, unspecified; E03.9 Hypothyroidism, unspecified; Z88.0 Allergy status to penicillin; Z88.1 Allergy status to other antibiotic agents; Z88.8 Allergy status to other drugs, medicaments and biological substances; Z88.2 Allergy status to sulfonamides; Z79.899 Other long term (current) drug therapy
CPT/HCPCS: 70450; 72125; 99284-25

== ENCOUNTER 2020-10-31 17:53 | Emergency (ER) | payer MEDICARE, MEDICAID ==
[~2020-10-31] VITALS: Ht 167.6 cm; Wt 72.6 kg
== END 2020-10-31 22:40 | disposition short-term general hospital (02) ==
LOC: ED 17:53
PROC: 4A0D7LZ Measurement of Urinary Volume, Via Natural or Artificial Opening (ICD-10-PCS; principal; 2020-10-31)
DX: M54.5 Low back pain (principal); R33.9 Retention of urine, unspecified; R20.0 Anesthesia of skin; Z20.822 Contact with and (suspected) exposure to COVID-19; E78.00 Pure hypercholesterolemia, unspecified; E11.40 Type 2 diabetes mellitus with diabetic neuropathy, unspecified; E03.9 Hypothyroidism, unspecified; Z88.0 Allergy status to penicillin; Z88.1 Allergy status to other antibiotic agents; Z88.2 Allergy status to sulfonamides; Z88.8 Allergy status to other drugs, medicaments and biological substances; Z79.899 Other long term (current) drug therapy; Z85.828 Personal history of other malignant neoplasm of skin
CPT/HCPCS: 51798; 72131; 73502; 80053; 81001; 85025; 87077; 87088; 87186; 99285-25; A9270; C9803; J1170; J2270; U0003

== ENCOUNTER 2020-11-06 12:11 | Emergency (ER) | payer MEDICARE, MEDICAID ==
[~2020-11-06] VITALS: Ht 167.6 cm; Wt 65.8 kg
--- OUTSIDE RECORDS SUMMARY | 2020-11-06 12:18 | XMS ---
PreManage Notification: JUANITA Security Housekeeping Supervisor Hotel Events No recent Security Events currently on file CRITERIA MET - [facility] - 2 Visits in 30 Days CARE PROVIDERS ASHLEIGH GIRALDO Physician Customer Success Specialist 03/01/2020-Current PHONE: [phone] Guidelines Source: [facility] Guidelines Date: 04/13/2019 Care Coordination: PATIENT HAS PHOTOGRAPHY INTERN FROM [employer] *JAYY [phone] Nelly VISIT COUNT (12 MO.) 1 [facility] 8 [facility]. TOTAL 9 NOTE: Visits indicate total known visits. ED/UCC VISIT TRACKING (12 MO.) 11/06/2020 12:13 [facility] TYPE: Emergency COMPLAINT: - CONFUSION, VISUAL PROBLEMS 11/01/2020 00:05 [facility] TYPE: Emergency DIAGNOSES: - Back Pain - Spinal stenosis, site unspecified 10/31/2020 17:54 [facility] TYPE: Emergency COMPLAINT: - BACK PAIN/NON INJ DIAGNOSES: - Retention of urine, unspecified - Allergy status to sulfonamides - Other fci (current) drug therapy - Anesthesia of skin - Pure hypercholesterolemia, unspecified - Allergy status to penicillin - Hypothyroidism, unspecified - Personal history of other malignant neoplasm of skin - Type 2 diabetes mellitus with diabetic neuropathy, unspecified - Low back pain - Allergy status to other drugs, medicaments and biological substances - Allergy status to other antibiotic agents 05/24/2020 18:50 [facility] [place] TYPE: Emergency COMPLAINT: - HEAD INJURY DIAGNOSES: - Allergy status to sulfonamides - Hypothyroidism, unspecified - Pure hypercholesterolemia, unspecified - Allergy status to other drugs, medicaments and biological substances - Other fci (current) drug therapy - Type 2 diabetes mellitus with diabetic neuropathy, unspecified - Allergy status to other antibiotic agents - Allergy status to other drugs, medicaments and biological substances - Allergy status to sulfonamides - Allergy status to penicillin - Allergy status to other antibiotic agents - Post-traumatic headache, unspecified, not intractable 03/18/2020 17:21 [facility] [place] TYPE: Emergency COMPLAINT: - FALL DIAGNOSES: - Strain of muscle, fascia and tendon at neck level, initial encounter - Allergy status to penicillin - Allergy status to other antibiotic agents - Type 2 diabetes mellitus with diabetic neuropathy, unspecified - Personal history of other malignant neoplasm of skin - Hypothyroidism, unspecified - Headache, unspecified - Urinary tract infection, site not specified - Allergy status to other antibiotic agents - Concussion without loss of consciousness, initial encounter - Allergy status to other drugs, medicaments and biological substances - Hypomagnesemia - Striking against other object with subsequent fall, initial encounter - Allergy status to other drugs, medicaments and biological substances - Headache, unspecified - Allergy status to sulfonamides - HEADACHE, UNSPECIFIED - Other fci (current) drug therapy - Allergy status to sulfonamides 02/28/2020 18:51 [facility] [place] TYPE: Emergency [...] drugs, medicaments and biological substances - Other fci (current) drug therapy - Hypothyroidism, unspecified 02/22/2020 15:57 [facility] [place] TYPE: Emergency COMPLAINT: - NECK PAIN DIAGNOSES: - Allergy status to other antibiotic agents - Type 2 diabetes mellitus with diabetic neuropathy, unspecified - Urinary tract infection, site not specified - Allergy status to sulfonamides - Hypothyroidism, unspecified - Other dedicated intermodal truck driver (current) drug therapy - Essential (primary) hypertension [...] status to other antibiotic agents - Other dedicated intermodal truck driver (current) drug therapy - Hypothyroidism, unspecified 02/11/2020 19:14 [facility] [place] TYPE: Emergency COMPLAINT: - ABDOMINAL PAIN DIAGNOSES: - Allergy status to sulfonamides - Hypothyroidism, unspecified - Essential (primary) hypertension - Type 2 diabetes mellitus with diabetic neuropathy, unspecified - Other fci (current) drug therapy - Pure hypercholesterolemia, unspecified - Allergy status to other antibiotic agents - Allergy status to penicillin - Epigastric pain INPATIENT VISIT TRACKING (12 MO.) No inpatient visits to display in this time frame [id number]
== END 2020-11-06 16:19 | disposition home or self-care (01) ==
LOC: ED 12:11
DX: E87.6 Hypokalemia (principal); E78.00 Pure hypercholesterolemia, unspecified; E11.40 Type 2 diabetes mellitus with diabetic neuropathy, unspecified; E03.9 Hypothyroidism, unspecified; Z85.828 Personal history of other malignant neoplasm of skin; Z88.0 Allergy status to penicillin; Z88.2 Allergy status to sulfonamides; Z88.1 Allergy status to other antibiotic agents; Z88.8 Allergy status to other drugs, medicaments and biological substances; Z79.899 Other long term (current) drug therapy
CPT/HCPCS: 70450; 80053; 81001; 85025; 99285-25

== ENCOUNTER 2021-01-12 13:21 | Emergency (ER) | payer MEDICARE, MEDICAID ==
[~2021-01-12] VITALS: Ht 167.6 cm; Wt 62.6 kg
--- OUTSIDE RECORDS SUMMARY | 2021-01-12 13:24 | XMS ---
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 ED/UCC VISIT TRACKING (12 MO.) 01/12/2021 13:22 [facility] [place] TYPE: Emergency COMPLAINT: - CHILLS, COUGH, ABD PAIN 11/06/2020 12:13 [facility] [place] TYPE: Emergency COMPLAINT: - CONFUSION, VISUAL PROBLEMS DIAGNOSES: - Allergy status to other drugs, medicaments and biological substances - Allergy status to sulfonamides - Allergy status to other antibiotic agents - Disorientation, unspecified - Personal history of other malignant neoplasm of skin - Other termite exterminator (current) drug therapy - Hypokalemia - Hypothyroidism, unspecified - Pure hypercholesterolemia, unspecified - Type 2 diabetes mellitus with diabetic neuropathy, unspecified - Allergy status to penicillin 11/01/2020 00:05 [facility] TYPE: Emergency DIAGNOSES: - Back Pain - Spinal stenosis, site unspecified 10/31/2020 17:54 [facility] TYPE: Emergency COMPLAINT: - BACK PAIN/NON INJ DIAGNOSES: - Retention of urine, unspecified - Allergy status to sulfonamides - Other [place] ([facility] drug therapy - Anesthesia of skin - Pure hypercholesterolemia, unspecified - Allergy status to penicillin - Hypothyroidism, unspecified - Personal history of other malignant neoplasm of skin - Type 2 diabetes mellitus with diabetic neuropathy, unspecified - Low back pain - Allergy status to other drugs, medicaments and biological substances - Allergy status to other antibiotic agents 05/24/2020 18:50 [facility] TYPE: Emergency COMPLAINT: - HEAD INJURY DIAGNOSES: - Allergy status to sulfonamides - Hypothyroidism, unspecified - Pure hypercholesterolemia, unspecified - Allergy status to other drugs, medicaments and biological substances - Other termite exterminator (current) drug therapy - Type 2 diabetes [...] to sulfonamides - HEADACHE, UNSPECIFIED - Other [place] [facility] ([facility] drug therapy - Allergy status to [...] drugs, medicaments and biological substances - Other termite exterminator (current) drug therapy - Hypothyroidism, unspecified 02/22/2020 15:57 [facility] [place] TYPE: Emergency COMPLAINT: - NECK PAIN DIAGNOSES: - Allergy status to other antibiotic agents - Type 2 diabetes mellitus with diabetic neuropathy, unspecified - Urinary tract infection, site not specified - Allergy status to sulfonamides - Hypothyroidism, unspecified - Other termite exterminator (current) drug therapy - Essential (primary) hypertension [...] status to other antibiotic agents - Other termite exterminator (current) drug therapy - Hypothyroidism, unspecified 02/11/2020 19:14 [facility] [place] TYPE: Emergency COMPLAINT: - ABDOMINAL PAIN DIAGNOSES: - Allergy status to sulfonamides - Hypothyroidism, unspecified - Essential (primary) hypertension - Type 2 diabetes mellitus with diabetic neuropathy, unspecified - Other termite exterminator (current) drug therapy - Pure hypercholesterolemia, unspecified - Allergy status to other antibiotic agents - Allergy status to penicillin - Epigastric pain INPATIENT VISIT TRACKING (12 MO.) No inpatient visits to display in this time frame [id number]
--- NOTE | 2021-01-12 19:21 | EKG ---
[facility] [address] [facility] [place] [address] Signed Normal sinus rhythm Right bundle branch block Septal infarct , age undetermined Abnormal ECG When compared with ECG of 18-MAR-2020 17:51, Right bundle branch block is now present Septal infarct is now present Confirmed by JOSE DURAN MD ([id number]) on 01/12/2021 7:21:33 PM Electronically Signed By: JOSE DURAN MD 01/12/211920 PATIENT NAME: LUCHO GRANT Electrocardiogram DATE OF : 31 PHYSICIAN: JOSE DURAN MD REPORT #: [id number] REPORT IS CONFIDENTIAL AND NOT TO BE RELEASED WITHOUT AUTHORIZATION
== END 2021-01-12 16:20 | disposition home or self-care (01) ==
LOC: ED 13:21
DX: U07.1 COVID-19 (principal); E78.00 Pure hypercholesterolemia, unspecified; E11.40 Type 2 diabetes mellitus with diabetic neuropathy, unspecified; E03.9 Hypothyroidism, unspecified; Z88.0 Allergy status to penicillin; Z88.2 Allergy status to sulfonamides; Z88.1 Allergy status to other antibiotic agents; Z88.8 Allergy status to other drugs, medicaments and biological substances; Z79.899 Other long term (current) drug therapy
CPT/HCPCS: 71045; 80053; 81001; 83735; 84484; 85025; 93005; 93010; 96374; 96375; 99285-25; C9803; J0360; J2405; U0003

== ENCOUNTER 2021-07-19 17:07 | Emergency (ER) | payer MEDICARE, OTHER ==
[~2021-07-19] VITALS: Ht 167.6 cm; Wt 69.4 kg
--- OUTSIDE RECORDS SUMMARY | 2021-07-19 17:10 | XMS ---
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 ED/UCC VISIT TRACKING (12 MO.) 07/19/2021 17:08 [facility] [place] TYPE: Emergency COMPLAINT: - BLOOD PRESSURE PROBLEM 01/12/2021 13:22 [facility] [place] TYPE: Emergency COMPLAINT: - CHILLS, COUGH, ABD PAIN DIAGNOSES: - Allergy status to other drugs, medicaments and biological substances - Pure hypercholesterolemia, unspecified - COVID-19 - Type 2 diabetes mellitus with diabetic neuropathy, unspecified - Hypothyroidism, unspecified - Allergy status to penicillin - Weakness - Allergy status to other antibiotic agents - Allergy status to sulfonamides - Other terminal make up operator (current) drug therapy 11/06/2020 12:13 [facility] TYPE: Emergency COMPLAINT: - CONFUSION, VISUAL PROBLEMS DIAGNOSES: - Allergy status to other drugs, medicaments and biological substances - Allergy status to sulfonamides - Allergy status to other antibiotic agents - Disorientation, unspecified - Personal history of other malignant neoplasm of skin - Other retirement (current) drug therapy - Hypokalemia - Hypothyroidism, unspecified - Pure hypercholesterolemia, unspecified - Type 2 diabetes mellitus with diabetic neuropathy, unspecified - Allergy status to penicillin 11/01/2020 00:05 [facility] TYPE: Emergency DIAGNOSES: - Back Pain - Spinal stenosis, site unspecified 10/31/2020 17:54 [facility] TYPE: Emergency COMPLAINT: - BACK PAIN/NON INJ DIAGNOSES: - Retention of urine, unspecified - Allergy status to sulfonamides - Other retirement (current) drug therapy - Anesthesia of skin - Pure hypercholesterolemia, unspecified - Allergy status to penicillin - Hypothyroidism, unspecified - Personal history of other malignant neoplasm of skin - Type 2 diabetes mellitus with diabetic neuropathy, unspecified - Low back pain - Allergy status to other drugs, medicaments and biological substances - Allergy status to other antibiotic agents INPATIENT VISIT TRACKING (12 MO.) No inpatient visits to display in this time frame [id number]
[2021-07-19] MEDS ORDERED: HYDROCHLOROTH12.5 M1 PO (21:58)
== END 2021-07-19 22:10 | disposition home or self-care (01) ==
LOC: ED 17:07
DX: I10 Essential (primary) hypertension (principal); E78.00 Pure hypercholesterolemia, unspecified; E11.9 Type 2 diabetes mellitus without complications; E03.9 Hypothyroidism, unspecified; Z85.828 Personal history of other malignant neoplasm of skin; Z88.0 Allergy status to penicillin; Z88.2 Allergy status to sulfonamides; Z88.1 Allergy status to other antibiotic agents; Z88.8 Allergy status to other drugs, medicaments and biological substances; Z79.899 Other long term (current) drug therapy
CPT/HCPCS: 36415; 70450; 80048; 85025; 96374; 96375; 99284-25; J0360; J1790; J2405; J2550

== ENCOUNTER 2021-07-24 09:59 | Emergency (ER) | payer MEDICARE, MEDICAID ==
[~2021-07-24] VITALS: Ht 167.6 cm; Wt 69.4 kg
[~2021-07-24 09:59] MED LIST changes: +HYDROCHLOROTH12.5 M1 PO
--- OUTSIDE RECORDS SUMMARY | 2021-07-24 10:08 | XMS ---
PreManage Notification: JUANITA Security Patient Coordinator Front Desk Events No recent Security Events currently on file CRITERIA MET - [facility] - 2 Visits in 30 Days - ED - Positive COVID-19 Lab Result - [facility] CARE PROVIDERS ASHLEIGH GIRALDO Physician Manager Biologics 03/01/2020-Current PHONE: [phone] BORIS OVALLE [facility] 11/06/2020-Current PHONE: [phone] Guidelines Source: [facility] Guidelines Date: 04/13/2019 Care Coordination: PATIENT HAS MEDICAL COST CONSULTANT FROM [employer] *JAYY [phone] Nelly VISIT COUNT (12 MO.) 1 [place] [address] [facility] TOTAL 6 NOTE: Visits indicate total known visits. ED/UCC VISIT TRACKING (12 MO.) 07/24/2021 10:01 [facility] [place] TYPE: Emergency COMPLAINT: - HIGH B/P, NO APPETITE, SHAKY, CONFUSED 07/19/2021 17:08 [facility] [place] TYPE: Emergency COMPLAINT: - BLOOD PRESSURE PROBLEM DIAGNOSES: - Allergy status to sulfonamides - Essential (primary) hypertension - Type 2 diabetes mellitus without complications - Hypothyroidism, unspecified - Other residential (current) drug therapy - Personal history of other malignant neoplasm of skin - Allergy status to penicillin - Pure hypercholesterolemia, unspecified - Allergy status to other antibiotic agents - Allergy status to other drugs, medicaments and biological substances - Headache, unspecified 01/12/2021 13:22 [facility] [place] TYPE: Emergency COMPLAINT: - CHILLS, COUGH, ABD PAIN DIAGNOSES: - Allergy status to other drugs, medicaments and biological substances - Pure hypercholesterolemia, unspecified - COVID-19 - Type 2 diabetes mellitus with diabetic neuropathy, unspecified - Hypothyroidism, unspecified - Allergy status to penicillin - Weakness - Allergy status to other antibiotic agents - Allergy status to sulfonamides - Other residential (current) drug therapy 11/06/2020 12:13 [facility] [place] TYPE: Emergency COMPLAINT: - CONFUSION, VISUAL PROBLEMS DIAGNOSES: - Allergy status to other drugs, medicaments and biological substances - Allergy status to sulfonamides - Allergy status to other antibiotic agents - Disorientation, unspecified - Personal history of other malignant neoplasm of skin - Other residential (current) drug therapy - Hypokalemia - Hypothyroidism, unspecified - Pure hypercholesterolemia, unspecified - Type 2 diabetes mellitus with diabetic neuropathy, unspecified - Allergy status to penicillin 11/01/2020 00:05 [facility] TYPE: Emergency DIAGNOSES: - Back Pain - Spinal stenosis, site unspecified 10/31/2020 17:54 [facility] [place] TYPE: Emergency COMPLAINT: - BACK PAIN/NON INJ DIAGNOSES: - Retention of urine, unspecified - Allergy status to sulfonamides - Other residential (current) drug therapy - Anesthesia of skin [...] visits to display in this time frame [id number]
[2021-07-24] MEDS ORDERED: AMLODIPINE BESYL5 MG PO (10:24)
== END 2021-07-24 13:21 | disposition home or self-care (01) ==
LOC: ED 09:59
DX: I10 Essential (primary) hypertension (principal); E78.00 Pure hypercholesterolemia, unspecified; E11.40 Type 2 diabetes mellitus with diabetic neuropathy, unspecified; E03.9 Hypothyroidism, unspecified; Z85.828 Personal history of other malignant neoplasm of skin; Z88.0 Allergy status to penicillin; Z88.2 Allergy status to sulfonamides; Z88.8 Allergy status to other drugs, medicaments and biological substances; Z88.1 Allergy status to other antibiotic agents; Z79.899 Other long term (current) drug therapy
CPT/HCPCS: 36415; 71045; 80053; 81001; 83735; 84484; 85025; 93005; 93010; 99284-25

== ENCOUNTER 2021-08-02 11:34 | Emergency (ER) | payer OTHER, MEDICARE, MEDICAID ==
[~2021-08-02] VITALS: Ht 167.6 cm; Wt 69.4 kg
[~2021-08-02 11:34] MED LIST changes: +AMLODIPINE BESYL5 MG PO
--- OUTSIDE RECORDS SUMMARY | 2021-08-02 11:36 | XMS ---
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 ED/UCC VISIT TRACKING (12 MO.) 08/02/2021 11:34 [facility] [place] TYPE: Emergency COMPLAINT: - FALL/BODY PAIN 07/24/2021 10:01 [facility] [place] TYPE: Emergency COMPLAINT: - HIGH B/P, NO APPETITE, SHAKY, CONFUSED DIAGNOSES: - Allergy status to penicillin - Type 2 diabetes mellitus with diabetic neuropathy, unspecified - Essential (primary) hypertension - Allergy status to other antibiotic agents - Hypothyroidism, unspecified - Personal history of other malignant neoplasm of skin - Other terminal makeup operator (current) drug therapy - Allergy status to other drugs, medicaments and biological substances - Allergy status to sulfonamides - Pure hypercholesterolemia, unspecified 07/19/2021 17:08 [facility] [place] TYPE: Emergency COMPLAINT: - BLOOD PRESSURE PROBLEM DIAGNOSES: - Allergy status to sulfonamides - Essential (primary) hypertension - Type 2 diabetes mellitus without complications - Hypothyroidism, unspecified - Other assisted (current) drug therapy - Personal history of [...] - Allergy status to sulfonamides - Other assisted (current) drug therapy 11/06/2020 12:13 [facility] TYPE: Emergency COMPLAINT: - CONFUSION, VISUAL PROBLEMS DIAGNOSES: - Allergy status to other drugs, medicaments and biological substances - Allergy status to sulfonamides - Allergy status to other antibiotic agents - Disorientation, unspecified - Personal history of other malignant neoplasm of skin - Other assisted (current) drug therapy - Hypokalemia - Hypothyroidism, unspecified - Pure hypercholesterolemia, unspecified - Type 2 diabetes mellitus with diabetic neuropathy, unspecified - Allergy status to penicillin 11/01/2020 00:05 [facility] TYPE: Emergency DIAGNOSES: - Back Pain - Spinal stenosis, site unspecified 10/31/2020 17:54 [facility] TYPE: Emergency COMPLAINT: - BACK PAIN/NON INJ DIAGNOSES: - Retention of urine, unspecified - Allergy status to sulfonamides - Other terminal makeup operator (current) drug therapy - Anesthesia of skin [...] visits to display in this time frame [id number]
== END 2021-08-02 13:55 | disposition home or self-care (01) ==
LOC: ED 11:34
DX: S30.0XXA Contusion of lower back and pelvis, initial encounter (principal); I10 Essential (primary) hypertension; E78.00 Pure hypercholesterolemia, unspecified; E03.9 Hypothyroidism, unspecified; E11.40 Type 2 diabetes mellitus with diabetic neuropathy, unspecified; Z85.828 Personal history of other malignant neoplasm of skin; Z88.0 Allergy status to penicillin; Z88.2 Allergy status to sulfonamides; Z88.8 Allergy status to other drugs, medicaments and biological substances; Z88.1 Allergy status to other antibiotic agents; Z79.899 Other long term (current) drug therapy; W19.XXXA Unspecified fall, initial encounter
CPT/HCPCS: 72170; 99283-25

== ENCOUNTER 2021-10-12 09:42 | Emergency (ER) | payer MEDICARE, MEDICAID ==
[~2021-10-12] VITALS: Ht 167.6 cm; Wt 63.5 kg
--- OUTSIDE RECORDS SUMMARY | 2021-10-12 09:44 | XMS ---
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 ED/UCC VISIT TRACKING (12 MO.) 10/12/2021 09:43 [facility] TYPE: Emergency COMPLAINT: - MALAISE 08/02/2021 11:34 [facility] TYPE: Emergency COMPLAINT: - FALL/BODY PAIN DIAGNOSES: - Unspecified fall, initial encounter - LOW BACK PAIN, UNSPECIFIED - Allergy status to penicillin - Type 2 diabetes mellitus with diabetic neuropathy, unspecified - Personal history of other malignant neoplasm of skin - Allergy status to other drugs, medicaments and biological substances - Allergy status to sulfonamides - Contusion of lower back and pelvis, initial encounter - Allergy status to other antibiotic agents - Essential (primary) hypertension - Pure hypercholesterolemia, unspecified - Other superintendent container terminal (current) drug therapy - Hypothyroidism, unspecified 07/24/2021 10:01 [facility] TYPE: Emergency COMPLAINT: - HIGH B/P, NO APPETITE, SHAKY, CONFUSED DIAGNOSES: - Allergy status to penicillin - Type 2 diabetes mellitus with diabetic neuropathy, unspecified - Essential (primary) hypertension - Allergy status to other antibiotic agents - Hypothyroidism, unspecified - Personal history of other malignant neoplasm of skin - Other superintendent container terminal (current) drug therapy - Allergy status to other drugs, medicaments and biological substances - Allergy status to sulfonamides - Pure hypercholesterolemia, unspecified 07/19/2021 17:08 [facility] TYPE: Emergency COMPLAINT: - BLOOD PRESSURE PROBLEM DIAGNOSES: - Allergy status to sulfonamides - Essential (primary) hypertension - Type 2 diabetes mellitus without complications - Hypothyroidism, unspecified - Other fpc (current) drug therapy - [...] - Allergy status to sulfonamides - Other superintendent container terminal (current) drug therapy 11/06/2020 12:13 [facility] TYPE: Emergency COMPLAINT: - CONFUSION, VISUAL PROBLEMS DIAGNOSES: - Allergy status to other drugs, medicaments and biological substances - Allergy status to sulfonamides - Allergy status to other antibiotic agents - Disorientation, unspecified - Personal history of other malignant neoplasm of skin - Other fpc (current) drug therapy - Hypokalemia - Hypothyroidism, unspecified - Pure hypercholesterolemia, unspecified - Type 2 diabetes mellitus with diabetic neuropathy, unspecified - Allergy status to penicillin 11/01/2020 00:05 [facility] TYPE: Emergency DIAGNOSES: - Back Pain - Spinal stenosis, site unspecified 10/31/2020 17:[address] [facility] [place] TYPE: Emergency COMPLAINT: - BACK PAIN/NON INJ DIAGNOSES: - Retention of urine, unspecified - Allergy status to sulfonamides - Other fpc (current) drug therapy - Anesthesia of skin [...] visits to display in this time frame [id number]
== END 2021-10-12 13:29 | disposition home or self-care (01) ==
LOC: ED 09:42
DX: J06.9 Acute upper respiratory infection, unspecified (principal); I10 Essential (primary) hypertension; E78.5 Hyperlipidemia, unspecified; E11.9 Type 2 diabetes mellitus without complications; E03.9 Hypothyroidism, unspecified; Z85.828 Personal history of other malignant neoplasm of skin; Z88.0 Allergy status to penicillin; Z88.2 Allergy status to sulfonamides; Z88.1 Allergy status to other antibiotic agents; Z88.8 Allergy status to other drugs, medicaments and biological substances; Z79.899 Other long term (current) drug therapy; Z20.822 Contact with and (suspected) exposure to COVID-19
CPT/HCPCS: 36415; 71045; 80053; 81001; 85025; 87502; 99284-25; C9803; U0003

== ENCOUNTER 2021-11-02 17:49 | Emergency (ER) | payer MEDICARE, MEDICAID ==
[~2021-11-02] VITALS: Ht 167.6 cm; Wt 63.5 kg
--- OUTSIDE RECORDS SUMMARY | 2021-11-02 17:52 | XMS ---
PreManage Notification: JUANITA Security Marketing Senior Recruiter Events No recent Security Events currently on file CRITERIA MET - [facility] - 2 Visits in 30 Days CARE PROVIDERS ASHLEIGH GIRALDO Physician Platform Inspector 03/01/2020-Current PHONE: [phone] BORIS OVALLE [facility] 11/06/2020-Current PHONE: [phone] Guidelines Source: [facility] Guidelines Date: 04/13/2019 Care Coordination: PATIENT HAS SBA BUSINESS DEVELOPMENT OFFICER FROM [employer] *JAYY [phone] Nelly VISIT COUNT (12 MO.) [address] [place], [place] [address]E[place] TOTAL 7 NOTE: Visits indicate total known visits. ED/UCC VISIT TRACKING (12 MO.) 11/02/2021 17:50 [facility] TYPE: Emergency COMPLAINT: - LT TOE INJURY 10/12/2021 09:43 [facility] TYPE: Emergency COMPLAINT: - MALAISE DIAGNOSES: - Other intermediate manager (current) drug therapy - Type 2 diabetes mellitus without complications - Allergy status to sulfonamides - Allergy status to other antibiotic agents - Diarrhea, unspecified - Acute upper respiratory infection, unspecified - Allergy status to other drugs, medicaments and biological substances - Personal history of other malignant neoplasm of skin - Essential (primary) hypertension - Contact with and (suspected) exposure to COVID-19 - Hypothyroidism, unspecified - Allergy status to penicillin - Hyperlipidemia, unspecified 08/02/2021 11:34 [facility] TYPE: Emergency COMPLAINT: - FALL/BODY PAIN DIAGNOSES: - Unspecified fall, initial encounter - LOW BACK PAIN, UNSPECIFIED - Low back pain, unspecified - Allergy status to penicillin - Type [...] hypertension - Pure hypercholesterolemia, unspecified - Other intermediate manager (current) drug therapy - Hypothyroidism, unspecified 07/24/2021 10:01 [facility] TYPE: Emergency COMPLAINT: - HIGH B/P, NO APPETITE, SHAKY, CONFUSED DIAGNOSES: - Allergy status to penicillin - Type 2 diabetes mellitus with diabetic neuropathy, unspecified - Essential (primary) hypertension - Allergy status to other antibiotic agents - Hypothyroidism, unspecified - Personal history of other malignant neoplasm of skin - Other snf (current) drug therapy - Allergy status to other drugs, medicaments and biological substances - Allergy status to sulfonamides - Pure hypercholesterolemia, unspecified 07/19/2021 17:08 [facility] TYPE: Emergency COMPLAINT: - BLOOD PRESSURE PROBLEM DIAGNOSES: - Allergy status to sulfonamides - Essential (primary) hypertension - Type 2 diabetes mellitus without complications - Hypothyroidism, unspecified - Other intermediate manager (current) drug therapy - Personal history of [...] - Allergy status to sulfonamides - Other snf (current) drug therapy 11/06/2020 12:13 [facility] TYPE: Emergency COMPLAINT: - CONFUSION, VISUAL PROBLEMS DIAGNOSES: - Allergy status to other drugs, medicaments and biological substances - Allergy status to sulfonamides - Allergy status to other antibiotic agents - Disorientation, unspecified - Personal history of other malignant neoplasm of skin - Other intermediate manager (current) drug therapy - Hypokalemia - Hypothyroidism, unspecified - Pure hypercholesterolemia, unspecified - Type 2 diabetes mellitus with diabetic neuropathy, unspecified - Allergy status to penicillin INPATIENT VISIT TRACKING (12 MO.) No inpatient visits to display in this time frame [id number]
== END 2021-11-02 19:28 | disposition home or self-care (01) ==
LOC: ED 17:49
DX: S90.122A Contusion of left lesser toe(s) without damage to nail, initial encounter (principal); E11.9 Type 2 diabetes mellitus without complications; E03.9 Hypothyroidism, unspecified; X58.XXXA Exposure to other specified factors, initial encounter; Y92.9 Unspecified place or not applicable; Z88.1 Allergy status to other antibiotic agents; Z88.0 Allergy status to penicillin; Z88.2 Allergy status to sulfonamides; Z88.8 Allergy status to other drugs, medicaments and biological substances; Z79.899 Other long term (current) drug therapy
CPT/HCPCS: 99283

== ENCOUNTER 2023-10-07 12:58 | Emergency (ER) | payer OTHER, MEDICARE, MEDICAID ==
[~2023-10-07] VITALS: Ht 167.6 cm; Wt 66.0 kg
[~2023-10-07 12:58] MED LIST changes: +ALENDRONATE SOD70 MG PO; +ALLEGRA ALLERGY60 MG PO; +BAYER CHEWABLE81 MG PO; +CLEARLAX119 GM; +K-TAB ER20 MEQ PO; +MAGNESIUM250 M1 PO; +MELATONIN3 MG PO; +METAMUCIL PACK3.4 GM PO; +MULTI VITAMIN1 EACH PO; +OMEGA 3 1,0001 EACH PO; +[UNRECOGNIZED DRUG - OTHER] PO
--- OUTSIDE RECORDS SUMMARY | 2023-10-07 13:01 | XMS ---
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 ED/UCC VISIT TRACKING (12 MO.) 10/07/2023 12:59 [facility] TYPE: Emergency COMPLAINT: - FALL POST SURGERY 10/06/2023 16:18 [facility] [place] TYPE: Emergency COMPLAINT: - FALL 08/29/2023 12:[address] 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 - Personal history of urinary (tract) infections - Retention of urine, unspecified - Spinal stenosis, site unspecified - Type 2 diabetes mellitus with diabetic neuropathy, unspecified INPATIENT VISIT TRACKING (12 MO.) [facility] DIAGNOSES: - Cauda equina syndrome - Spondylolysis, lumbar region [facility]23 [facility] DIAGNOSES: - 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 - Essential (primary) hypertension - Hyperlipidemia, unspecified - Hypothyroidism, unspecified - Lumbago with sciatica, left side - Lumbago with sciatica, right side - Other chronic pain - Other intervertebral disc degeneration, lumbar region - Other retention of urine - Personal history of other venous thrombosis and embolism - Personal history of pulmonary embolism - Polyneuropathy, unspecified - Spinal stenosis, lumbar region with neurogenic claudication - Spinal stenosis, lumbar region without neurogenic claudication - Spondylolisthesis, lumbar region - Type 2 diabetes mellitus with diabetic polyneuropathy - Unspecified abnormalities of gait and mobility [id number]
[2023-10-07 15:07] VITALS: BP 153/71
== END 2023-10-07 15:07 | disposition home or self-care (01) ==
LOC: ED 12:58
DX: Z04.3 Encounter for examination and observation following other accident (principal); E78.00 Pure hypercholesterolemia, unspecified; E11.40 Type 2 diabetes mellitus with diabetic neuropathy, unspecified; E03.9 Hypothyroidism, unspecified; Z88.0 Allergy status to penicillin; Z88.2 Allergy status to sulfonamides; Z88.1 Allergy status to other antibiotic agents; Z79.899 Other long term (current) drug therapy
CPT/HCPCS: 99283